=== PATIENT | female | born 1950 | race Caucasian/White ===

== ENCOUNTER 2017-01-29 15:55 | Inpatient (IN) | payer OTHER ==
[~2017-01-29] VITALS: Ht 167.6 cm; Wt 115.9 kg
[~2017-01-29 15:55] MED LIST: ALPR0.25 PO; CARV12.52 PO; CARV6.252 PO; CHOL500016 PO; CYCL10TA2 PO; FLUC100T4 PO; FURO-68 PO; FURO80TA3 PO; GABA-586 PO; GLIM4TAB2 PO; HYDR-2678 PO; HYDR-2868 PO; INSU100V SQ; INSU100V13 SQ; LIRA0.6P2 SQ; LISI-334 PO; LISI40TA PO; OMEP20CA9 PO; OXYC1TAB9 PO; POTA10TA5 PO; TRAM50TA PO
[2017-01-29 18:36] VITALS: BP 159/79
[2017-01-29] MEDS ORDERED: DEXTROSE 50% 25 GM / 50ML DISP.SYRIN. IV PRN (18:45)
[2017-01-29] MEDS ORDERED: LACTULOSE 20 GM/30 ML SOLUTION. PO PRN (18:45)
[2017-01-29] MEDS ORDERED: MAGNESIUM HYDROXIDE 2,400 MG/30 ML ORAL.SUSP. PO PRN (18:45)
[2017-01-29] MEDS ORDERED: BISACODYL 10 MG SUPP.RECT. PR PRN (18:45)
[2017-01-29] MEDS ORDERED: IBUPROFEN 400 MG TABLET. PO PRN (18:45)
[2017-01-29] MEDS ORDERED: ZOLPIDEM 5 MG TABLET. PO PRN (18:45)
[2017-01-29 20:24] LABS: BASO # 0.1 x10^3/uL (0.0-0.2); BASO % 1 % (0-3); EOS % 3 % (0-3); HEMATOCRIT 36.3 % (36.0-47.0); HEMOGLOBIN 11.3 g/dL (12.0-15.5); LYMPH # 1.8 x10^3/uL (1.0-4.8); LYMPH % 22 % (24-48); MEAN CORPUSCULAR HEMOGLOBIN 28 pg (25-35); MEAN CORPUSCULAR HGB CONC 31 g/dL (31-37); MEAN CORPUSCULAR VOLUME 89 fL (79-100); MONO % 5 % (0-9); NEUT % 70 % (31-73); PLATELET COUNT 173 x10^3/uL (140-400); RED BLOOD COUNT 4.08 x10^6/uL (3.50-5.40); RED CELL DISTRIBUTION WIDTH 16.6 % (11.5-14.5)
[2017-01-29] MEDS ORDERED: LIDOCAINE 1% PF 2 ML VIAL. ONE ×2 (20:37→21:00)
[2017-01-29 20:47] LABS: ALBUMIN 2.9 g/dL (3.4-5.0); ALBUMIN/GLOBULIN RATIO 0.8 (1.0-1.7); CALCIUM 8.4 mg/dL (8.5-10.1); CREATININE 2.2 mg/dL (0.6-1.0); GFR 22.2; MAGNESIUM 1.9 mg/dL (1.8-2.4); TOTAL BILIRUBIN 0.5 mg/dL (0.2-1.0); TOTAL PROTEIN 6.5 g/dL (6.4-8.2)
--- NOTE | 2017-01-29 20:55 | PDOC ---
Provider Note Provider Note H and p dictated. JOb # [id number] Sent form PCP bec of leg swelling, chest heaviness, SOA. PCP Dr. Colin Bui Known CHF Claims compliance to lasix 40 PO BID 30 lb weight gain in 1 month PItting edema with vesicles on legs SOA at rest, chest heaviness Wants anesthesia stick Diurese, check labs and cxr, PT/OT. OT lymphedema COnsult cards Hba1c 10 in 2015 NO TSH recently CHeck hba1c and TSH, add SSI Dw RN DHRUV Carpenter MD January 29, 2017 20:55
[2017-01-29] MEDS ORDERED: FUROSEMIDE 40 MG/4 ML VIAL. IVP ONE (21:00)
[2017-01-29] MEDS: DOCUSATE SODIUM 100 MG CAPSULE. PO SCH (21:00)
[2017-01-29] MEDS ORDERED: INSULIN DETEMIR 300 UNITS/3 ML INSULN.PEN. SQ SCH (21:00)
[2017-01-29] MEDS: ENOXAPARIN 40 MG/0.4 ML SYRINGE. SQ SCH (21:49)
[2017-01-29] MEDS: CYCLOBENZAPRINE 10 MG TABLET. PO SCH (21:50)
[2017-01-29] MEDS: traMADol 50 MG TABLET PO SCH (21:50)
[2017-01-29] MEDS: CARVEDILOL 12.5 MG TABLET. PO SCH (21:51)
[2017-01-29] MEDS: hydrALAZINE 25 MG TABLET PO SCH (21:51)
[2017-01-29] MEDS: INSULIN ASPART 300 UNITS/3 ML INSULN.PEN SQ SCH (22:00)
[2017-01-29] MEDS: HYDROcodone/APAP 5/325MG 1 TAB TABLET PO PRN (22:31)
[2017-01-29 23:20] VITALS: BP 155/96
--- NOTE | 2017-01-29 23:35 | EKG ---
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
[2017-01-30 03:05] VITALS: BP 108/59
[2017-01-30 05:05] LABS: BASO # 0.1 x10^3/uL (0.0-0.2); BASO % 1 % (0-3); EOS % 3 % (0-3); HEMATOCRIT 29.9 % (36.0-47.0); HEMOGLOBIN 9.5 g/dL (12.0-15.5); LYMPH # 2.9 x10^3/uL (1.0-4.8); LYMPH % 40 % (24-48); MEAN CORPUSCULAR HEMOGLOBIN 28 pg (25-35); MEAN CORPUSCULAR HGB CONC 32 g/dL (31-37); MEAN CORPUSCULAR VOLUME 89 fL (79-100); MONO % 6 % (0-9); NEUT % 50 % (31-73); PLATELET COUNT 150 x10^3/uL (140-400); RED BLOOD COUNT 3.37 x10^6/uL (3.50-5.40); RED CELL DISTRIBUTION WIDTH 16.3 % (11.5-14.5); WHITE BLOOD COUNT 7.4 x10^3/uL (4.0-11.0)
[2017-01-30 05:12] LABS: INR 1.3 (0.8-1.1); PROTHROMBIN TIME PATIENT 15.1 SEC (11.7-14.0)
[2017-01-30] MEDS: PANTOPRAZOLE 40 MG TABLET.DR. PO SCH ×2 (06:32→11:02)
[2017-01-30 07:00] VITALS: BP 115/55
[2017-01-30] MEDS: INSULIN ASPART 300 UNITS/3 ML INSULN.PEN SQ SCH ×5 (07:30→17:00)
[2017-01-30] MEDS ORDERED: IV DEXTROSE 5% 250 ML IV ONE (07:45)
[2017-01-30] MEDS: CARVEDILOL 12.5 MG TABLET. PO SCH (07:47)
[2017-01-30] MEDS ORDERED: DEXTROSE ORAL GEL 15 GM TUBE. ONE (07:52)
[2017-01-30] MEDS: DEXTROSE ORAL GEL 15 GM TUBE. PO PRN (07:55)
--- NOTE | 2017-01-30 07:59 | RAD ---
Indication difficulty breathing. Shortness of breath. PA and lateral views of the chest were obtained and are compared to a single view examination 06/11/2016. There is mild cardiomegaly. There is suspect mild pulmonary vascular congestion. Gross congestive heart failure is not seen. No consolidated pneumonia is seen. Significant pleural fluid is not present. There is no pneumothorax. Postoperative changes in the upper abdomen are noted. IMPRESSION: Mild cardiomegaly, stable, No focal consolidated pneumonia seen. Suspect mild pulmonary vascular congestion
[2017-01-30] MEDS: GLIMEPIRIDE 2 MG TABLET. PO SCH ×2 (09:00→17:00)
[2017-01-30] MEDS ORDERED: FUROSEMIDE 40 MG TABLET. PO SCH (09:00)
[2017-01-30] MEDS ORDERED: NON FORMULARY ITEM (Liraglutide (Victoza 3-Pak) 1.2 MG) SQ SCH (09:00)
[2017-01-30] MEDS: DOCUSATE SODIUM 100 MG CAPSULE. PO SCH ×2 (09:00→21:00)
[2017-01-30] MEDS: hydrALAZINE 25 MG TABLET PO SCH ×2 (09:00→21:08)
[2017-01-30] MEDS ORDERED: FUROSEMIDE 40 MG/4 ML VIAL. IVP SCH (09:00)
[2017-01-30] MEDS: traMADol 50 MG TABLET PO SCH (09:00)
[2017-01-30] MEDS: CYCLOBENZAPRINE 10 MG TABLET. PO SCH ×2 (09:00→21:08)
--- NOTE | 2017-01-30 09:13 | PDOC2 ---
LESTER MARQUEZ COATINGS INSPECTOR 01/30/17 0913: CARDIAC CONSULT DATE OF CONSULT Date of Consult DATE: 01/30/17 TIME: 08:51 REASON FOR CONSULT Reason for Consult: CHF REFERRING PHYSICIAN Referring Physician: Kendall SOURCE Source: Chart review, Patient HISTORY OF PRESENT ILLNESS HISTORY OF PRESENT ILLNESS This is a pleasant 66 yo female admitted for complains of SOA and increasing leg swelling. Reports that she has been skipping her medications lately, spacing it out to save money. She did not follow up in our office due to limited financial means. 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 Reports that in the last month she has gained about 30 pounds. She has chronic lymphedema but in the last 2 weeks she has noticed that her legs have become more swollen, her abdomen has become more distended and her appetite has decreased in the last week. Also in the last week she has been having occasional palpitations and sometimes feeling of dizziness but more vertigous type dizziness claiming that her surrounding becomes wavy during positional changes. Verbalized symptoms of orthopnea, PND and increasing RYAN. Her mobility is limited but her activity tolerance has decreased as well. Reports that she also started having watery diarrhea 2-3 started 2 weeks ago and thought that this was lactose intolerance but she removed milk in her diet and still had watery diarrhea today but no obvious signs of blood. Denies any nausea or chest pain. She went to her PCP Thursday last week and she was told that her HR has became more irregular but no EKG done. This last 2 days she has been more orthopneic and had PND and with bad insomnia and called her PCPs office Thursday and told her yesterday she needs to come to the hospital. She drove herself and arrange to where she would be a direct admit to save money from not going to ED. She does have lasix at home but again she has been spacing out her medications and BG has been running in the 200s. No recent falls, no PUD, denies any CAD, VTE, CVA in the past. Also she tried to cut down on her salt and calorie intake. PAST MEDICAL HISTORY Past Medical History Cardiovascular: CHF, HTN, chronic lymphedema/venous insufficiency, DLP CENTRAL NERVOUS SYSTEM: Peripheral neuropathy GI: GERD Heme/Onc: Anemia of chronic disease Hepatobiliary: GUILLORY Psych: Anxiety Musculoskeletal: Osteoarthritis, obesity Rheumatologic: No pertinent hx Infectious disease: No pertinent hx ENT: No pertinent hx Renal/: Chronic renal insuff, CKD 4 Endocrine: Diabetes (2) Dermatology: No pertinent hx PAST SURGICAL HISTORY Past Surgical History Appendectomy, Cholecystectomy, , Hysterectomy, Colectomy, Gastric stapling, Abdominal mesh removal with complications of liver failure, cardiac cath 2 years ago, pannus resection FAMILY HISTORY Family History Strong family hx of colon CA, father had CAD SOCIAL HISTORY Smoke: No ALCOHOL: none Drugs: None Lives: with Family CURRENT MEDICATIONS CURRENT MEDICATIONS Current Medications Medications (Trade) Dose Ordered Sig/Aileen Route PRN Reason Start Time Stop Time Status Last Admin Dose Admin Enoxaparin Sodium (Lovenox 40mg Syringe) 40 mg Q12HR SQ 01/29/17 22:00 01/29/17 21:49 Carvedilol (Coreg) 12.5 mg BIDWMEALS PO 01/29/17 19:00 01/29/17 21:51 Cyclobenzaprine HCl (Flexeril) 10 mg BID PO 01/29/17 21:00 01/29/17 21:50 Hydralazine HCl (Apresoline) 25 mg BID PO 01/29/17 21:00 01/29/17 21:51 Acetaminophen/ Hydrocodone Bitart (Lortab 5/325) 1 tab PRN Q6HRS PRN PO PAIN 01/29/17 18:45 01/29/17 22:31 Tramadol HCl (Ultram) 100 mg BID PO 01/29/17 21:00 01/29/17 21:50 Insulin Detemir (Levemir) 40 units QHS SQ 01/29/17 21:00 01/29/17 22:01 Insulin Aspart (NovoLOG) 50 units TIDAC SQ 01/29/17 19:00 01/29/17 22:00 Pantoprazole Sodium (Protonix) 40 mg DAILYAC PO 01/30/17 07:30 01/30/17 06:32 Furosemide (Lasix) 40 mg 1X ONCE IVP 01/29/17 21:00 01/29/17 21:01 DC 01/29/17 21:52 Glucose (Insta-Glucose) 15 gm PRN Q15MIN PRN PO LOW BLOOD SUGAR 01/30/17 08:00 01/30/17 07:55 ALLERGIES ALLERGIES: Coded Allergies: No Known Drug Allergies (Unverified , 05/01/16) ROS Review of System 14 point ROS evaluated with pertinent positives noted per HPI PHYSICAL EXAM General: Alert, Oriented X3, Cooperative, No acute distress HEENT: Atraumatic, Mucous membr. moist/pink Lungs: Other (basilar crackles) Heart: Normal S1, Normal S2, Other (AFIB; 2/6 systolic murmur to LLS border) Abdomen: Soft, Other (large pannus) Extremities: No cyanosis, Other (3-4+ bilateral LE pitting edema) Skin: No breakdown, Other (bilateral LE lipodermatosclerosis) Neuro: Normal speech, Sensation intact Psych/Mental Status: Mental status NL, Mood NL MUSCULOSKELETAL: Osteoarthritic changes both hands VITALS VITALS Vital Signs Date Time Temp Pulse Resp B/P (MAP) Pulse Ox O2 Delivery O2 Flow Rate FiO2 01/30/17 07:47 46 108/59 01/30/17 07:00 97.9 18 97 Room Air 97.9 LABS Lab: Laboratory Tests Test 01/29/17 20:00 01/29/17 20:15 01/29/17 20:50 01/30/17 04:30 White Blood Count 8.0 x10^3/uL (4.0-11.0) 7.4 x10^3/uL (4.0-11.0) Red Blood Count 4.08 x10^6/uL (3.50-5.40) 3.37 x10^6/uL (3.50-5.40) Hemoglobin 11.3 g/dL (12.0-15.5) 9.5 g/dL (12.0-15.5) Hematocrit 36.3 % (36.0-47.0) 29.9 % (36.0-47.0) Mean Corpuscular Volume 89 fL (79-100) 89 fL (79-100) Mean Corpuscular Hemoglobin 28 pg (25-35) 28 pg (25-35) Mean Corpuscular Hemoglobin Concent 31 g/dL (31-37) 32 g/dL (31-37) Red Cell Distribution Width 16.6 % (11.5-14.5) 16.3 % (11.5-14.5) Platelet Count 173 x10^3/uL (140-400) 150 x10^3/uL (140-400) Neutrophils (%) (Auto) 70 % (31-73) 50 % (31-73) Lymphocytes (%) (Auto) 22 % (24-48) 40 % (24-48) Monocytes (%) (Auto) 5 % (0-9) 6 % (0-9) Eosinophils (%) (Auto) 3 % (0-3) 3 % (0-3) Basophils (%) (Auto) 1 % (0-3) 1 % (0-3) Neutrophils # (Auto) 5.6 x10^3uL (1.8-7.7) 3.7 x10^3uL (1.8-7.7) Lymphocytes # (Auto) 1.8 x10^3/uL (1.0-4.8) 2.9 x10^3/uL (1.0-4.8) Monocytes # (Auto) 0.4 x10^3/uL (0.0-1.1) 0.4 x10^3/uL (0.0-1.1) Eosinophils # (Auto) 0.2 x10^3/uL (0.0-0.7) 0.2 x10^3/uL (0.0-0.7) Basophils # (Auto) 0.1 x10^3/uL (0.0-0.2) 0.1 x10^3/uL (0.0-0.2) Sodium Level 143 mmol/L (136-145) Potassium Level 4.0 mmol/L (3.5-5.1) Chloride Level 109 mmol/L (98-107) Carbon Dioxide Level 24 mmol/L (21-32) Anion Gap 10 (6-14) Blood Urea Nitrogen 25 mg/dL (7-20) Creatinine 2.2 mg/dL (0.6-1.0) Estimated GFR (Cockcroft-Gault) 22.2 BUN/Creatinine Ratio 11 (6-20) Glucose Level 273 mg/dL (70-99) Calcium Level 8.4 mg/dL (8.5-10.1) Magnesium Level 1.9 mg/dL (1.8-2.4) Total Bilirubin 0.5 mg/dL (0.2-1.0) Aspartate Amino Transf (AST/SGOT) 13 U/L (15-37) Alanine Aminotransferase (ALT/SGPT) 15 U/L (14-59) Alkaline Phosphatase 247 U/L (46-116) Total Protein 6.5 g/dL (6.4-8.2) Albumin 2.9 g/dL (3.4-5.0) Albumin/Globulin Ratio 0.8 (1.0-1.7) Troponin I Quantitative < 0.017 ng/mL (0.000-0.055) < 0.017 ng/mL (0.000-0.055) JD-Fan-Y-Type Natriuretic Peptide 3583 pg/mL (0-124) Thyroid Stimulating Hormone (TSH) 0.766 uIU/mL (0.358-3.74) Glucose (Fingerstick) 306 mg/dL (70-99) Prothrombin Time 15.1 SEC (11.7-14.0) Prothromb Time International Ratio 1.3 (0.8-1.1) Test 01/30/17 07:03 01/30/17 07:36 Glucose (Fingerstick) 50 mg/dL (70-99) 53 mg/dL (70-99) ECHOCARDIOGRAM ECHOCARDIOGRAM <Conclusion> The left ventricular systolic function is normal and the ejection fraction is within normal range. The Ejection Fraction is 60-65%. There is normal LV segmental wall motion. Tissue Doppler imaging reveals moderate left ventricular diastolic dysfunction. Doppler and Color Flow revealed mild tricuspid regurgitation. The PA pressure was estimated at 49 mmHg. DATE: 06/12/16 1037 ASSESSMENT/PLAN ASSESSMENT/PLAN 1. Acute on chronic diastolic CHF: Appears compensated. This is multifactorial with contributing factors noted below. 2. New onset AFIB: Likely paroxysmal Noted irregular initially a week ago at PCPs office. Rate controlled, 3. Suspecting possible tachy-josi HR episodes in the 40s (could be BB induced) via tele with episodes of palpitations at home. 4. Chronic lymphedema 5. CKD4 6. HTN: initially labile 7. DM2/DLP: hypoglycemic this AM in the 50s. Home BG avg 200s. per PCP 8. Anemia of chronic disease: Hgb 9.5, no hx of GI bleed. 9. Hx of noncompliance: has been spacing out home meds, mainly due to limited financial means 10. Diarrhea: watery 2 weeks with last 2 episode today. possible gastroenteritis vs CHF contributing. Per PCP 11. Morbid obesity: BMI 45 12. MATTHEW: has not used any device for a while since she could not afford this. Recommendations 1. TTE today 2. Significant discussion regarding treatment plan and pathophysiology for AFIB and importance of compliance. 3. I would like to start her on Xa inhibitors but based on her verbalized expenses, she would not be able to afford it. Coumadin for stroke prevention is also an option but compliance would be an issue in relation to INR checks. Cardioversion is an option but assurance of anticoagulation would be warranted and office f/u as well Will revisit these factors again with her once SW/CM evaluates her. 4. Also would recommend outpt event monitor but would not be able to afford. 5. Strict I & O. Will decrease lasix to daily given her continued diarrheal episode. 6. Will DC home dose 12.5 mg coreg and will possibly start on low dose metoprolol starting tomorrow if no further bradycardia. 7. [id number] is 5. ECASA 81 mg po daily for stroke prevention for now as anticoagulation compliance could not be assured 8. Continue secondary prevention 9. BMP, Mg, TSH, lipid panel, A1C Problems: LEON GARDNER MD 01/30/174: CARDIAC CONSULT ALLERGIES ALLERGIES: Coded Allergies: No Known Drug Allergies (Unverified , 05/01/16) ASSESSMENT/PLAN ASSESSMENT/PLAN Pt. seen and examined. 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 66 y.o woman well known to me. She has had progressive dyspnea/LE edema. On exam she has 3+ pitting edema to the lower extremities. Labs notable for anemia and CKD. Echo - prelim with normal LV function and moderate pulm HTN. Plan for aggressive diuresis. Continue lisinopril. No acute indication for rate control given her rates are less than 80 at rest. May consider DC home on toprol after she is more active. WILL NEED $4 meds only. Would prefer anticoagulation for afib given risk factors. Will plan for Eliquis 30 days of samples and then plan to either transition to coumadin or assistance program on outpt basis. Will follow along. Thanks for consult. Problems: LESTER MARQUEZ APRN January 30, 2017 09:13 LEON GARDNER MD January 30, 2017 22:24
[2017-01-30 09:27] LABS: CALCIUM 7.9 mg/dL (8.5-10.1); CREATININE 2.3 mg/dL (0.6-1.0); GFR 21.1
--- NOTE | 2017-01-30 09:31 | ACF ---
Admission Forms Criteria HEART FAILURE Clinical Indications for Admission to Inpatient Care (Place 'X' for any and all applicable criteria): Admission is indicated by ANY ONE of the following(1)(2)(3)(4): [ ]I. Severe electrolyte abnormalities requiring inpatient care(9) [ ]II. Hemodynamic instability [ ]III. Anasarca [ ]IV. Acute cardiac ischemia causing or associated with failure (Also use Angina or Myocardial Infarction as appropriate) [ ]V. Cardiac arrhythmias of immediate concern [ ]. Precipitating cause for acute decompensation (eg, pneumonia, pulmonary embolism) requires inpatient care [ ]VII. Pulmonary edema that is very severe (eg, mechanical ventilation needed, imminent or likely, need for 100% oxygen to keep oxygen saturation above 90%) [ ]VIII. Inpatient admission required rather than observation care (Also use Heart Failure: Observation Care as appropriate) because of ANY ONE of the following: [ ]a) Pulmonary edema that is severe or worsening as indicated by ALL of the following: [ ]i) New need for oxygen therapy to keep oxygen saturation above 90% (or increased FiO2 need from baseline) [ ]ii) Has not improved sufficiently with emergency department or observation care IV diuretics or other heart failure treatments[C] [ ]b) Cognitive impairment that is severe or persistent [ ]c) Increased creatinine (new on laboratory test) with reduction of more than 50% in estimated glomerular filtration rate from baseline. [ ]d) Acute renal insufficiency (progressively (ongoing) rising creatinine (known from past laboratory test) with reduction of more than 25% in estimated glomerular filtration rate from baseline) [ ]e) Acute peripheral ischemia (eg, pulseless, cool, mottled, or cyanotic extremity) [ ]f) Acute renal failure [ ]g) Supplemental O2 or respiratory treatment for >24 hr that are performable only in acute inpatient setting [ ]h) Pulmonary artery catheter monitoring [ ]i) Other condition, treatment or monitoring requiring inpatient admission [ ]IX. Contraindications and/or Inappropriate clinical situations for Observational Care in patients with Heart Failure, when ANY ONE of the following is required: [ ]a) Patient with High risk of cardiac embolism (e.g, patients with previous cardiac embolism, LVEF < 40%, age >75 and patients with prosthetic valve) 18 [ ]b) Patient with Moderate risk including DM patient, CAD and patient aged 65-75 [ ]c) Patient with any change in cardiac biomarker especially troponin should be managed as high risk in an inpatient setting 19 [ ]d) Physician judgement irrespective of ECG and other diagnostic findings 20 [ ]e) Patients with hyponatremia have high risk for mortality and require more extensive care and length of stay 21 [ ]f) Need for large volume diuresis 21 [ ]g) Presence of renal insufficiency or hypotension limiting speed of diuresis 21 [ ]h) Acute cardiac Ischemia in the elderly 21 [ ]i) Patients with a 30 day risk of mortality based on a multidimensional prognostic index (MPI) [J,]21 [X]X. General contraindications and/or Inappropriate clinical situations for Observational Care in patients with Heart Failure, when ANY ONE of the following is required: [X]a) Prediction of prolongation of LOS based on ANY ONE of the following may be considered as a contraindication for observational care 2, 3, 4, 5, 6, 7, 8 , 9, 10, 11 [X]i) Age > 65 yrs. [ ]ii) Patient arriving by ambulance [ ]iii) Patient with high acuity [ ]iv) Patient requiring vital sign monitoring [ ]v) Patient on IV medication [ ]b) Systolic blood pressures 180mmHg 3,12 [ ]c) Patient with altered mental status including delirium and other alteration of consciousness, (3) [ ]d) Patient whose discharge disposition will be to a chcf home or rehabilitation home should not be managed in Emergency Department Observation Unit. CMS rule requires 3 days hospital stay before such placement.3,13 [ ]e) Patient with failure to thrive due to broad array of etiologies 3,16,17 [ ]f) Inability to ambulate 3,14 Extended stay beyond goal length of stay may be needed for(1)(3)(21)(25): [ ]a) Cardiac ischemia, confirmed or suspected as precipitant [ ]b) Cardiogenic shock or refractory pulmonary edema [ ]c) Acute kidney injury or renal failure [ ]d) Respiratory failure (eg, need for noninvasive or invasive mechanical ventilation) (23) [ ]e) Concomitant pneumonia or significant electrolyte abnormality (eg, severe hyponatremia) [ ]f) Newly diagnosed (new onset) atrial fibrillation [ ]g) Stage IV chronic kidney disease (estimated glomerular filtration rate of less than 30 mL/min/1.73m2 (0.50 mL/sec/1.73m2), and not previously on chronic dialysis The original [facility] content created by [facility] has been revised. The portions of the content which have been revised are identified through the use of italic text or in bold, and [facility] has neither reviewed nor approved the modified material. All other unmodified content is copyright [facility]. Please see references footnoted in the original [facility] edition 2016 Admission Criteria Met?: Yes GEE SOUZA January 30, 2017 09:31
--- NOTE | 2017-01-30 09:34 | EKG ---
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
[2017-01-30 09:35] LABS: CHOLESTEROL/HDL RATIO 1.9; MAGNESIUM 1.8 mg/dL (1.8-2.4)
--- NOTE | 2017-01-30 10:30 | HP ---
ADMIT DATE: 01/29/2017 CHIEF COMPLAINT: Sent by PCP because of increase in lower extremity swelling. HISTORY OF PRESENT ILLNESS: The patient is a 66-year-old female known to have CHF, I do believe combined systolic-diastolic, chronic, was known to our Cardiology Group here for an admission in 05/2016 and maybe a couple of months ago for similar issues as per the patient account. Again, [facility] is down and I do not have access to old records. The patient is on Lasix 40 mg p.o. b.i.d., claims compliance, but despite that, has gained 30 pounds in the last month. There is +3 to 4 pitting edema on bilateral lower extremities, but actually vesicles appreciable filled with fluid. She does complain of shortness of breath at rest and on exertion. She is basically wheelchair-bound mostly, but lives at home with her . Denies salt intake. Does have diabetes, obesity, and CKD. PCP is Dr. Bui. No labs present, but clinical exam is remarkable for lower extremity edema, decreased breath sounds, no wheezes appreciated, and maybe some moderate crackles on auscultation. The patient is admitted for diuresis with Cardiology on board. She did complain of some chest heaviness and shortness of breath, where the chest heaviness, she could not further characterize. She looks comfortable right now, although she is not moving and is lying in bed with significant edema appreciable. PAST MEDICAL HISTORY: Diabetes, obesity, CHF, CKD, and anemia of chronic disease. PAST SURGICAL HISTORY: Reviewed, nothing significant. ALLERGIES: No known drug allergies. SOCIAL HISTORY: No smoking, no alcohol, and no street drugs. Lives at home with , ambulates basically with a wheelchair. FAMILY HISTORY: Reviewed and noncontributory. MEDICATION LIST: Reviewed. She is on maybe 15 different medications and claims compliance. REVIEW OF SYSTEMS: Positive for shortness of breath and chest heaviness. No abdominal pain, nausea, vomiting, or diarrhea. No psychiatric or mental issues or neurologic issues: Skin: She has some vesicles on bilateral lower extremities. There is tight swelling and pitting edema +3 to +4 from her foot up to her thighs. PHYSICAL EXAMINATION: GENERAL: Awake, alert, and oriented x 3, not in acute respiratory distress with stable vital signs reviewed. HEENT: No JVD appreciable, but short neck, Mallampati 3-4. RESPIRATORY: Decreased breath sounds secondary to poor inspiratory effort, increased AP diameter, but otherwise no wheezing appreciated, maybe minute-to- moderate crackles at the lung bases. CARDIOVASCULAR: Normal rate and rhythm. No murmurs, rubs, or gallops. No heaves, thrills, or lift. ABDOMEN: Obese, nontender. Normoactive bowel sounds. GENITALIA: Appropriate for age. PSYCHIATRIC AND MENTAL EXAM: Within normal limits. NEUROLOGIC: No focal deficits. SKIN: She has vesicles on bilateral lower extremities. Bilateral lower extremities have+3-4 pitting edema. LABORATORY DATA: Not available for now. ASSESSMENT AND PLAN: 1. Acute-on chronic congestive heart failure, likely systolic versus diastolic or combined. We have to see the old records what type of congestive heart failure she has. Again, [facility] is down. 2. Old lymphedema. 3. Obesity. 4. Diabetes type 2. 5. Unknown A1c. 6. Chronic kidney disease. 7. Anemia of chronic disease. 8. Limited mobility, wheelchair-bound. 9. Chest heaviness. PLAN OF CARE: Admit to CVC for two midnights. Cardiology consult. Troponins. I would diurese IV with 40 IV b.i.d. given the significant edema. PT and OT - OT for lymphedema. Sliding scale insulin. Continue all home meds, except the furosemide to 40 mg orally. I did have a heavy discussion. She wanted a PICC, but I told her that we could try for peripherals first as PICC lines are now without complications. She was basically concerned of the pain, hence we will do an anesthesia stick and she was agreeable to perform stick as long as pain will be controlled. Check chest x-ray, BNP, and basic labs. If TSH has not been recently done, we can also do that. Discussed with RN and the patient. DHRUV LACEY MD DR: /nts JOB#: [id number] / [id number]
[2017-01-30 11:00] VITALS: BP 118/88
[2017-01-30] MEDS: POTASSIUM CHLORIDE 10 MEQ TABLET.ER. PO SCH (11:01)
[2017-01-30] MEDS: FLUCONAZOLE 100 MG TABLET. PO SCH (11:02)
[2017-01-30] MEDS: CHOLECALCIFEROL (VITAMIN D3) 5,000 UNIT CAPSULE PO SCH (11:02)
[2017-01-30] MEDS: LISINOPRIL 40 MG TABLET. PO SCH (11:03)
[2017-01-30] MEDS: ENOXAPARIN 40 MG/0.4 ML SYRINGE. SQ SCH ×2 (11:06→21:09)
--- NOTE | 2017-01-30 11:21 | PDOC ---
PROGRESS NOTES Chief Complaint Chief Complaint CHF Severe Edema Diabetes Obesity CKD Anemia of chronic disease History of Present Illness History of Present Illness Pt up ambulating with PT Legs are impressively swollen Vitals Vitals Vital Signs Date Time Temp Pulse Resp B/P (MAP) Pulse Ox O2 Delivery O2 Flow Rate FiO2 01/30/17 11:03 46 108/59 01/30/17 07:00 97.9 18 97 Room Air 97.9 Physical Exam General: Alert, Oriented X3 Heart: Regular rate, Normal S1 Lungs: Clear Abdomen: Normal bowel sounds, Soft Extremities: Other (Massive edema) Labs LABS Laboratory Tests Test 01/29/17 20:00 01/29/17 20:15 01/29/17 20:50 01/30/17 04:30 White Blood Count 8.0 x10^3/uL (4.0-11.0) 7.4 x10^3/uL (4.0-11.0) Red Blood Count 4.08 x10^6/uL (3.50-5.40) 3.37 x10^6/uL (3.50-5.40) Hemoglobin 11.3 g/dL (12.0-15.5) 9.5 g/dL (12.0-15.5) Hematocrit 36.3 % (36.0-47.0) 29.9 % (36.0-47.0) Mean Corpuscular Volume 89 fL (79-100) 89 fL (79-100) Mean Corpuscular Hemoglobin 28 pg (25-35) 28 pg (25-35) Mean Corpuscular Hemoglobin Concent 31 g/dL (31-37) 32 g/dL (31-37) Red Cell Distribution Width 16.6 % (11.5-14.5) 16.3 % (11.5-14.5) Platelet Count 173 x10^3/uL (140-400) 150 x10^3/uL (140-400) Neutrophils (%) (Auto) 70 % (31-73) 50 % (31-73) Lymphocytes (%) (Auto) 22 % (24-48) 40 % (24-48) Monocytes (%) (Auto) 5 % (0-9) 6 % (0-9) Eosinophils (%) (Auto) 3 % (0-3) 3 % (0-3) Basophils (%) (Auto) 1 % (0-3) 1 % (0-3) Neutrophils # (Auto) 5.6 x10^3uL (1.8-7.7) 3.7 x10^3uL (1.8-7.7) Lymphocytes # (Auto) 1.8 x10^3/uL (1.0-4.8) 2.9 x10^3/uL (1.0-4.8) Monocytes # (Auto) 0.4 x10^3/uL (0.0-1.1) 0.4 x10^3/uL (0.0-1.1) Eosinophils # (Auto) 0.2 x10^3/uL (0.0-0.7) 0.2 x10^3/uL (0.0-0.7) Basophils # (Auto) 0.1 x10^3/uL (0.0-0.2) 0.1 x10^3/uL (0.0-0.2) Sodium Level 143 mmol/L (136-145) 146 mmol/L (136-145) Potassium Level 4.0 mmol/L (3.5-5.1) 4.0 mmol/L (3.5-5.1) Chloride Level 109 mmol/L (98-107) 113 mmol/L (98-107) Carbon Dioxide Level 24 mmol/L (21-32) 25 mmol/L (21-32) Anion Gap 10 (6-14) 8 (6-14) Blood Urea Nitrogen 25 mg/dL (7-20) 26 mg/dL (7-20) Creatinine 2.2 mg/dL (0.6-1.0) 2.3 mg/dL (0.6-1.0) Estimated GFR (Cockcroft-Gault) 22.2 21.1 BUN/Creatinine Ratio 11 (6-20) Glucose Level 273 mg/dL (70-99) 75 mg/dL (70-99) Calcium Level 8.4 mg/dL (8.5-10.1) 7.9 mg/dL (8.5-10.1) Magnesium Level 1.9 mg/dL (1.8-2.4) 1.8 mg/dL (1.8-2.4) Total Bilirubin 0.5 mg/dL (0.2-1.0) Aspartate Amino Transf (AST/SGOT) 13 U/L (15-37) Alanine Aminotransferase (ALT/SGPT) 15 U/L (14-59) Alkaline Phosphatase 247 U/L (46-116) Total Protein 6.5 g/dL (6.4-8.2) Albumin 2.9 g/dL (3.4-5.0) Albumin/Globulin Ratio 0.8 (1.0-1.7) Troponin I Quantitative < 0.017 ng/mL (0.000-0.055) < 0.017 ng/mL (0.000-0.055) NI-Qxw-W-Type Natriuretic Peptide 3583 pg/mL (0-124) Thyroid Stimulating Hormone (TSH) 0.766 uIU/mL (0.358-3.74) Glucose (Fingerstick) 306 mg/dL (70-99) Prothrombin Time 15.1 SEC (11.7-14.0) Prothromb Time International Ratio 1.3 (0.8-1.1) Triglycerides Level 29 mg/dL (0-150) Cholesterol Level 80 mg/dL (0-200) LDL Cholesterol, Calculated 32 mg/dL (0-100) VLDL Cholesterol, Calculated 6 mg/dL (0-40) Non-HDL Cholesterol Calculated 38 mg/dL (0-129) HDL Cholesterol 42 mg/dL (40-60) Cholesterol/HDL Ratio 1.9 Test 01/30/17 07:03 01/30/17 07:36 Glucose (Fingerstick) 50 mg/dL (70-99) 53 mg/dL (70-99) Review of Systems Review of Systems co soa co weakness Assessment and Plan Assessmemt and Plan CHF Severe Edema Diabetes Obesity CKD Anemia of chronic disease Plan IV lasix Decrease Beta blockade due to bradycardia PTOT Home meds Recheck labs Problems: Comment Review of Relevant I have reviewed the following items kai (where applicable) has been applied. Labs Laboratory Tests Test 01/29/17 20:00 01/29/17 20:15 01/29/17 20:50 01/30/17 04:30 White Blood Count 8.0 x10^3/uL (4.0-11.0) 7.4 x10^3/uL (4.0-11.0) Red Blood Count 4.08 x10^6/uL (3.50-5.40) 3.37 x10^6/uL (3.50-5.40) Hemoglobin 11.3 g/dL (12.0-15.5) 9.5 g/dL (12.0-15.5) Hematocrit 36.3 % (36.0-47.0) 29.9 % (36.0-47.0) Mean Corpuscular Volume 89 fL (79-100) 89 fL (79-100) Mean Corpuscular Hemoglobin 28 pg (25-35) 28 pg (25-35) Mean Corpuscular Hemoglobin Concent 31 g/dL (31-37) 32 g/dL (31-37) Red Cell Distribution Width 16.6 % (11.5-14.5) 16.3 % (11.5-14.5) Platelet Count 173 x10^3/uL (140-400) 150 x10^3/uL (140-400) Neutrophils (%) (Auto) 70 % (31-73) 50 % (31-73) Lymphocytes (%) (Auto) 22 % (24-48) 40 % (24-48) Monocytes (%) (Auto) 5 % (0-9) 6 % (0-9) Eosinophils (%) (Auto) 3 % (0-3) 3 % (0-3) Basophils (%) (Auto) 1 % (0-3) 1 % (0-3) Neutrophils # (Auto) 5.6 x10^3uL (1.8-7.7) 3.7 x10^3uL (1.8-7.7) Lymphocytes # (Auto) 1.8 x10^3/uL (1.0-4.8) 2.9 x10^3/uL (1.0-4.8) Monocytes # (Auto) 0.4 x10^3/uL (0.0-1.1) 0.4 x10^3/uL (0.0-1.1) Eosinophils # (Auto) 0.2 x10^3/uL (0.0-0.7) 0.2 x10^3/uL (0.0-0.7) Basophils # (Auto) 0.1 x10^3/uL (0.0-0.2) 0.1 x10^3/uL (0.0-0.2) Sodium Level 143 mmol/L (136-145) 146 mmol/L (136-145) Potassium Level 4.0 mmol/L (3.5-5.1) 4.0 mmol/L (3.5-5.1) Chloride Level 109 mmol/L (98-107) 113 mmol/L (98-107) Carbon Dioxide Level 24 mmol/L (21-32) 25 mmol/L (21-32) Anion Gap 10 (6-14) 8 (6-14) Blood Urea Nitrogen 25 mg/dL (7-20) 26 mg/dL (7-20) Creatinine 2.2 mg/dL (0.6-1.0) 2.3 mg/dL (0.6-1.0) Estimated GFR (Cockcroft-Gault) 22.2 21.1 BUN/Creatinine Ratio 11 (6-20) Glucose Level 273 mg/dL (70-99) 75 mg/dL (70-99) Calcium Level 8.4 mg/dL (8.5-10.1) 7.9 mg/dL (8.5-10.1) Magnesium Level 1.9 mg/dL (1.8-2.4) 1.8 mg/dL (1.8-2.4) Total Bilirubin 0.5 mg/dL (0.2-1.0) Aspartate Amino Transf (AST/SGOT) 13 U/L (15-37) Alanine Aminotransferase (ALT/SGPT) 15 U/L (14-59) Alkaline Phosphatase 247 U/L (46-116) Total Protein 6.5 g/dL (6.4-8.2) Albumin 2.9 g/dL (3.4-5.0) Albumin/Globulin Ratio 0.8 (1.0-1.7) Troponin I Quantitative < 0.017 ng/mL (0.000-0.055) < 0.017 ng/mL (0.000-0.055) YA-Zsi-E-Type Natriuretic Peptide 3583 pg/mL (0-124) Thyroid Stimulating Hormone (TSH) 0.766 uIU/mL (0.358-3.74) Glucose (Fingerstick) 306 mg/dL (70-99) Prothrombin Time 15.1 SEC (11.7-14.0) Prothromb Time International Ratio 1.3 (0.8-1.1) Triglycerides Level 29 mg/dL (0-150) Cholesterol Level 80 mg/dL (0-200) LDL Cholesterol, Calculated 32 mg/dL (0-100) VLDL Cholesterol, Calculated 6 mg/dL (0-40) Non-HDL Cholesterol Calculated 38 mg/dL (0-129) HDL Cholesterol 42 mg/dL (40-60) Cholesterol/HDL Ratio 1.9 Test 01/30/17 07:03 01/30/17 07:36 Glucose (Fingerstick) 50 mg/dL (70-99) 53 mg/dL (70-99) Laboratory Tests Test 01/29/17 20:00 01/29/17 20:15 01/29/17 20:50 01/30/17 04:30 White Blood Count 8.0 x10^3/uL (4.0-11.0) 7.4 x10^3/uL (4.0-11.0) Red Blood Count 4.08 x10^6/uL (3.50-5.40) 3.37 x10^6/uL (3.50-5.40) Hemoglobin 11.3 g/dL (12.0-15.5) 9.5 g/dL (12.0-15.5) Hematocrit 36.3 % (36.0-47.0) 29.9 % (36.0-47.0) Mean Corpuscular Volume 89 fL (79-100) 89 fL (79-100) Mean Corpuscular Hemoglobin 28 pg (25-35) 28 pg (25-35) Mean Corpuscular Hemoglobin Concent 31 g/dL (31-37) 32 g/dL (31-37) Red Cell Distribution Width 16.6 % (11.5-14.5) 16.3 % (11.5-14.5) Platelet Count 173 x10^3/uL (140-400) 150 x10^3/uL (140-400) Neutrophils (%) (Auto) 70 % (31-73) 50 % (31-73) Lymphocytes (%) (Auto) 22 % (24-48) 40 % (24-48) Monocytes (%) (Auto) 5 % (0-9) 6 % (0-9) Eosinophils (%) (Auto) 3 % (0-3) 3 % (0-3) Basophils (%) (Auto) 1 % (0-3) 1 % (0-3) Neutrophils # (Auto) 5.6 x10^3uL (1.8-7.7) 3.7 x10^3uL (1.8-7.7) Lymphocytes # (Auto) 1.8 x10^3/uL (1.0-4.8) 2.9 x10^3/uL (1.0-4.8) Monocytes # (Auto) 0.4 x10^3/uL (0.0-1.1) 0.4 x10^3/uL (0.0-1.1) Eosinophils # (Auto) 0.2 x10^3/uL (0.0-0.7) 0.2 x10^3/uL (0.0-0.7) Basophils # (Auto) 0.1 x10^3/uL (0.0-0.2) 0.1 x10^3/uL (0.0-0.2) Sodium Level 143 mmol/L (136-145) 146 mmol/L (136-145) Potassium Level 4.0 mmol/L (3.5-5.1) 4.0 mmol/L (3.5-5.1) Chloride Level 109 mmol/L (98-107) 113 mmol/L (98-107) Carbon Dioxide Level 24 mmol/L (21-32) 25 mmol/L (21-32) Anion Gap 10 (6-14) 8 (6-14) Blood Urea Nitrogen 25 mg/dL (7-20) 26 mg/dL (7-20) Creatinine 2.2 mg/dL (0.6-1.0) 2.3 mg/dL (0.6-1.0) Estimated GFR (Cockcroft-Gault) 22.2 21.1 BUN/Creatinine Ratio 11 (6-20) Glucose Level 273 mg/dL (70-99) 75 mg/dL (70-99) Calcium Level 8.4 mg/dL (8.5-10.1) 7.9 mg/dL (8.5-10.1) Magnesium Level 1.9 mg/dL (1.8-2.4) 1.8 mg/dL (1.8-2.4) Total Bilirubin 0.5 mg/dL (0.2-1.0) Aspartate Amino Transf (AST/SGOT) 13 U/L (15-37) Alanine Aminotransferase (ALT/SGPT) 15 U/L (14-59) Alkaline Phosphatase 247 U/L (46-116) Total Protein 6.5 g/dL (6.4-8.2) Albumin 2.9 g/dL (3.4-5.0) Albumin/Globulin Ratio 0.8 (1.0-1.7) Troponin I Quantitative < 0.017 ng/mL (0.000-0.055) < 0.017 ng/mL (0.000-0.055) PB-Ueu-S-Type Natriuretic Peptide 3583 pg/mL (0-124) Thyroid Stimulating Hormone (TSH) 0.766 uIU/mL (0.358-3.74) Glucose (Fingerstick) 306 mg/dL (70-99) Prothrombin Time 15.1 SEC (11.7-14.0) Prothromb Time International Ratio 1.3 (0.8-1.1) Triglycerides Level 29 mg/dL (0-150) Cholesterol Level 80 mg/dL (0-200) LDL Cholesterol, Calculated 32 mg/dL (0-100) VLDL Cholesterol, Calculated 6 mg/dL (0-40) Non-HDL Cholesterol Calculated 38 mg/dL (0-129) HDL Cholesterol 42 mg/dL (40-60) Cholesterol/HDL Ratio 1.9 Test 01/30/17 07:03 01/30/17 07:36 Glucose (Fingerstick) 50 mg/dL (70-99) 53 mg/dL (70-99) Medications Current Medications Zolpidem Tartrate (Ambien) 5 mg PRN QHS PRN PO INSOMNIA, MAY REPEAT IN 1HR; Start 01/29/17 at 18:45 Oxycodone HCl (Roxicodone) 5 mg PRN Q3HRS PRN PO BREAKTHROUGH PAIN; Start 01/29 at 18:45 Acetaminophen (Tylenol) 650 mg PRN Q6HRS PRN PO Headaches, Temp > 101.5F; Start 01/29/17 at 18:45 Ibuprofen (Motrin) 400 mg PRN Q6HRS PRN PO MILD PAIN; Start 01/29/17 at 18:45 Docusate Sodium (Colace) 100 mg BID PO ; Start 01/29/17 at 21:00 Magnesium Hydroxide (Milk Of Magnesia) 2,400 mg PRN Q12HR PRN PO CONSTIPATION; Start 01/29/17 at 18:45 Lactulose 20 gm PRN Q12HR PRN PO CONSTIPATION; Start 01/29/17 at 18:45 Bisacodyl (Dulcolax Supp) 10 mg PRN DAILY PRN MD CONSTIPATION; Start 01/29/17 at 18:45 Enoxaparin Sodium (Lovenox 40mg Syringe) 40 mg Q12HR SQ Last administered on 11:06; Start 01/29/17 at 22:00 Alprazolam (Xanax) 0.25 mg QHS PRN PO ANXIETY / AGITATION; Start 01/29/17 at 18 :45 Carvedilol (Coreg) 12.5 mg BIDWMEALS PO Last administered on 01/29/17 21:51; Start 01/29/17 at 19:00 Cyclobenzaprine HCl (Flexeril) 10 mg BID PO Last administered on 01/29/17 21: 50; Start 01/29/17 at 21:00 Fluconazole (Diflucan) 100 mg DAILY PO Last administered on 01/30/17 11:02; Start 01/30/17 at 09:00 Furosemide (Lasix) 40 mg BID92 PO ; Start 01/30/17 at 09:00; Stop 01/30/17 at 09 :00; Status DC Hydralazine HCl (Apresoline) 25 mg BID PO Last administered on 01/29/17 21:51 ; Start 01/29/17 at 21:00 Acetaminophen/ Hydrocodone Bitart (Lortab 5/325) 1 tab PRN Q6HRS PRN PO PAIN Last administered on 01/29/17 22:31; Start 01/29/17 at 18:45 Lisinopril (Prinivil) 40 mg DAILY PO Last administered on 01/30/17 11:03; Start 01/30/17 at 09:00 Oxycodone/ Acetaminophen (Percocet 10/325) 1 tab PRN Q6HRS PRN PO PAIN; Start 01/29/17 at 18:45 Tramadol HCl (Ultram) 100 mg BID PO Last administered on 01/29/17 21:50; Start 01/29/17 at 21:00 Vitamin D (Vitamin D3) 5,000 unit DAILY PO Last administered on 01/30/17 11:02 ; Start 01/30/17 at 09:00 Gabapentin (Neurontin) 300 mg PRN DAILY PRN PO NERVE PAIN; Start 01/29/17 at 21 :00 Glimepiride (Amaryl) 4 mg BIDWMEALS PO ; Start 01/30/17 at 09:00 Insulin Detemir (Levemir) 40 units QHS SQ Last administered on 01/29/17 22:01 ; Start 01/29/17 at 21:00 Insulin Aspart (NovoLOG) 50 units TIDAC SQ Last administered on 01/29/17 22:00 ; Start 01/29/17 at 19:00 Non-Formulary Medication 1.2 mg DAILY SQ ; Start 01/30/17 at 09:00; Stop at 09:00; Status DC Pantoprazole Sodium (Protonix) 40 mg DAILYAC PO Last administered on 01/30/17 11:02; Start 01/30/17 at 07:30 Potassium Chloride (Klor-Con) 10 meq DAILYWBKFT PO Last administered on 11:01; Start 01/30/17 at 08:00 Insulin Aspart (NovoLOG) 0-9 UNITS TIDWMEALS SQ ; Start 01/30/17 at 08:00 Dextrose (Dextrose 50%-Water Syringe) 12.5 gm PRN Q15MIN PRN IV SEE COMMENTS; Start 01/29/17 at 18:45 Furosemide (Lasix) 40 mg 1X ONCE IVP Last administered on 01/29/17 21:52; Start 01/29/17 at 21:00; Stop 01/29/17 at 21:01; Status DC Furosemide (Lasix) 40 mg BID92 IVP Last administered on 01/30/17 11:01; Start 01/30/17 at 09:00 Lidocaine HCl (Xylocaine-Mpf 1% Vial) 2 ml STK-MED ONCE .ROUTE ; Start 01/29/17 at 20:37; Stop 01/29/17 at 20:38; Status DC Dextrose 250 ml @ 1,000 mls/hr 1X ONCE IV ; Start 01/30/17 at 07:45; Stop at 07:59; Status DC Glucose (Insta-Glucose) 15 gm PRN Q15MIN PRN PO LOW BLOOD SUGAR Last administered on 01/30/17t 07:55; Start 01/30/17 at 08:00 Glucose (Insta-Glucose) 15 gm STK-MED ONCE .ROUTE ; Start 01/30/17 at 07:52; Stop 01/30/17 at 07:53; Status DC Lidocaine HCl (Xylocaine-Mpf 1% Vial) 2 ml STK-MED ONCE .ROUTE ; Start 01/29/17 at 21:00; Stop 01/30/17 at 09:01; Status DC Active Scripts Active Xanax (Alprazolam) 0.25 Mg Tablet 0.25 Mg PO QHS PRN Oxycodone-Acetaminophen 10-325 (Oxycodone Hcl/Acetaminophen) 1 Each Tablet 1 Tab PO PRN Q6HRS PRN Hydralazine Hcl 25 Mg Tablet 25 Mg PO BID Carvedilol 12.5 Mg Tablet 12.5 Mg PO BIDWMEALS Fluconazole 100 Mg Tablet 1 Tab PO DAILY Lasix (Furosemide) 40 Mg Tablet 40 Mg PO BID Reported Lisinopril 40 Mg Tablet 1 Tab PO DAILY Humalog (Insulin Lispro) 100 Unit/1 Ml Vial 50 Unit SQ TID Lortab 5-325 mg Tablet (Hydrocodone/Acetaminophen) 1 Each Tablet 1 Tab PO PRN Q6HRS PRN Levemir (Insulin Detemir) 100 Unit/1 Ml Vial 40 Unit SQ HS Victoza 3-Devon (Liraglutide) 0.6 Mg/0.1 Ml Pen.injctr 1.2 Mg SQ DAILY Gabapentin 300 Mg Capsule 1 Cap PO DAILY PRN Vitamin D3 (Cholecalciferol (Vitamin D3)) 5,000 Unit Tablet 1 Tab PO DAILY Glimepiride 4 Mg Tablet 1 Tab PO BID Tramadol Hcl 50 Mg Tablet 2 Tab PO BID Cyclobenzaprine Hcl 10 Mg Tablet 1 Tab PO BID Klor-Con 10 (Potassium Chloride) 10 Meq Tablet.er 1 Tab PO DAILY Omeprazole 20 Mg Capsule.dr 1 Cap PO DAILY Vitals/I & O Vital Sign - Last 24 Hours 5/2501/29/17 01/29/17 01/29/17 18:36 18:36 18:40 19:45 Temp 98.5 98.5 98.5 98.5 Pulse 84 84 Resp 20 20 B/P (MAP) 159/79 (105) 159/79 (105) Pulse Ox 99 99 O2 Delivery Room Air Room Air Room Air Room Air 01/29/17 01/29/17 01/29/17 01/29/17 21:50 21:51 21:51 22:31 Pulse 84 84 Resp 18 B/P (MAP) 159/79 159/79 O2 Delivery Room Air 01/29/17 01/30/17 01/30/17 01/30/17 23:20 03:05 07:00 07:47 Temp 97.6 97.2 97.9 97.6 97.2 97.9 Pulse 71 60 57 46 Resp 18 16 18 B/P (MAP) 155/96 (115) 108/59 (75) 115/55 (75) 108/59 Pulse Ox 96 96 97 O2 Delivery Room Air Room Air Room Air 01/30/17 01/30/17 09:00 11:03 Pulse 46 46 B/P (MAP) 108/59 108/59 Intake and Output 01/29/17 01/29/17 01/30/17 15:00 23:00 07:00 Intake Total 205 ml 470 ml Balance 205 ml 470 ml DRAKE DURÁN III DO January 30, 2017 11:21
[2017-01-30] MEDS: ASPIRIN ENTERIC COATED 81 MG TABLET.DR. PO SCH (12:45)
[2017-01-30 15:05] VITALS: BP 130/67
[2017-01-30 19:30] VITALS: BP 137/72
[2017-01-30] MEDS: INSULIN DETEMIR 300 UNITS/3 ML INSULN.PEN. SQ SCH (21:00)
[2017-01-30 23:34] VITALS: BP 128/70
[2017-01-31] MEDS: GABAPENTIN 300 MG CAPSULE. PO PRN (00:56)
[2017-01-31] MEDS: oxyCODONE/APAP 10/325 1 TAB TABLET PO PRN (00:58)
[2017-01-31] MEDS ORDERED: GABAPENTIN 100 MG CAPSULE. PO ONE (02:00)
[2017-01-31 03:00] VITALS: BP 147/84
[2017-01-31 05:58] LABS: ALBUMIN 2.6 g/dL (3.4-5.0); ALBUMIN/GLOBULIN RATIO 0.9 (1.0-1.7); CALCIUM 8.1 mg/dL (8.5-10.1); CREATININE 2.5 mg/dL (0.6-1.0); GFR 19.2; MAGNESIUM 1.9 mg/dL (1.8-2.4); PHOSPHORUS 3.8 mg/dL (2.6-4.7); POTASSIUM 4.7 mmol/L (3.5-5.1); TOTAL BILIRUBIN 0.4 mg/dL (0.2-1.0); TOTAL PROTEIN 5.4 g/dL (6.4-8.2)
[2017-01-31 07:30] VITALS: BP 169/92
--- NOTE | 2017-01-31 08:07 | CARD ---
APPROVED REPORT EXAM: Two-dimensional and M-mode echocardiogram with Doppler and color Doppler. Other Information Quality : GoodHR: 74bpm Rhythm : Atrial Fibrillation INDICATION Congestive Heart Failure RISK FACTORS Obesity 2D DIMENSIONS RVDd3.1 (2.9-3.5cm)Left Atrium(2D)3.5 (1.6-4.0cm) IVSd1.3 (0.7-1.1cm)Aortic Root(2D)3.5 (2.0-3.7cm) LVDd5.0 (3.9-5.9cm)LVOT Diameter2.3 (1.8-2.4cm) PWd1.3 (0.7-1.1cm)LVDs3.3 (2.5-4.0cm) FS (%) 34.6 %SV76.1 ml LVEF(%)63.4 (>50%) Aortic Valve AoV Peak Driss.118.4cm/sAoV VTI25.3cm AO Peak GR.5.6mmHgLVOT Peak Driss.85.6cm/s AO Mean GR.3mmHgAVA (VMAX)3.05cm2 Mitral Valve MV E Peak Gr.5mmHgMV E Mean Gr.2mmHg Pulmonary Valve PV Peak Mshpjbpa02.4cm/s Tricuspid Valve TR P. Vlvjnynp094wv/sTR Peak Gr.51mmHg Pulmonary Vein S1 Dpslzlag79.8cm/sD2 Hmbqetmj20.2cm/s LEFT VENTRICLE The left ventricle is normal size. There is moderate concentric left ventricular hypertrophy. The lef t ventricular systolic function is normal. The Ejection Fraction is 60-65%. There is normal LV segmen fernando wall motion. Tissue Doppler assessment suggests moderate left ventricular diastolic dysfunction. RIGHT VENTRICLE The right ventricle is normal size. There is normal right ventricular wall thickness. The right ventr icular systolic function is normal. ATRIA The left atrium is mildly dilated. The right atrium size is normal. The interatrial septum is intact with no evidence for an atrial septal defect or patent foramen ovale as noted on 2-D or Doppler imagi ng. AORTIC VALVE The aortic valve is mildly sclerotic. The aortic valve is trileaflet. Doppler and Color Flow revealed no significant aortic regurgitation. There is no significant aortic valvular stenosis. MITRAL VALVE Mitral annular calcification is mild. The mitral valve leaflets are thickened. There is no evidence o f mitral valve prolapse. There is no mitral valve stenosis. Doppler and Color Flow revealed mild mitr al regurgitation. TRICUSPID VALVE Doppler and Color Flow revealed moderate tricuspid regurgitation. The pulmonary artery systolic press ure is estimated at 66 mmHg. There is severe pulmonary hypertension. PULMONIC VALVE Doppler and Color Flow revealed no pulmonic valvular regurgitation. There is no pulmonic valvular humble nosis. GREAT VESSELS The aortic root is normal in size. The ascending aorta is normal in size. The pulmonary artery is nor mal. The IVC is dilated and does not collapse with inspiration. PERICARDIAL EFFUSION There is no evidence of significant pericardial effusion. Critical Notification Critical Value: No <Conclusion> The left ventricular systolic function is normal. The Ejection Fraction is 60-65%. There is normal LV segmental wall motion. The left atrium is mildly dilated. Mild mitral regurgitation. Moderate tricuspid regurgitation. The pulmonary artery systolic pressure is estimated at 66 mmHg. There is severe pulmonary hypertension. There is no evidence of significant pericardial effusion.
[2017-01-31] MEDS: DOCUSATE SODIUM 100 MG CAPSULE. PO SCH ×2 (09:00→20:38)
[2017-01-31] MEDS: GABAPENTIN 400 MG CAPSULE. PO SCH ×2 (09:00→20:38)
[2017-01-31] MEDS: ASPIRIN ENTERIC COATED 81 MG TABLET.DR. PO SCH (09:13)
[2017-01-31] MEDS: CHOLECALCIFEROL (VITAMIN D3) 5,000 UNIT CAPSULE PO SCH (09:14)
[2017-01-31] MEDS: CYCLOBENZAPRINE 10 MG TABLET. PO SCH ×2 (09:14→20:38)
[2017-01-31] MEDS: GLIMEPIRIDE 2 MG TABLET. PO SCH ×2 (09:15→17:31)
[2017-01-31] MEDS: POTASSIUM CHLORIDE 10 MEQ TABLET.ER. PO SCH (09:15)
[2017-01-31] MEDS: FUROSEMIDE 40 MG/4 ML VIAL. IVP SCH (09:16)
[2017-01-31] MEDS: hydrALAZINE 25 MG TABLET PO SCH ×2 (09:16→20:36)
[2017-01-31] MEDS: LISINOPRIL 40 MG TABLET. PO SCH (09:16)
[2017-01-31] MEDS: FLUCONAZOLE 100 MG TABLET. PO SCH (09:17)
[2017-01-31] MEDS: INSULIN ASPART 300 UNITS/3 ML INSULN.PEN SQ SCH ×3 (09:32→17:00)
[2017-01-31 10:27] VITALS: BP 160/76
[2017-01-31] MEDS ORDERED: METO25TA4 PO (12:21)
[2017-01-31] MEDS ORDERED: POTA20TA82 PO (12:22)
[2017-01-31] MEDS ORDERED: FURO-68 PO (12:22)
--- NOTE | 2017-01-31 12:25 | PDOC ---
PROGRESS NOTES Chief Complaint Chief Complaint CHF Severe Edema Diabetes Obesity CKD Anemia of chronic disease History of Present Illness History of Present Illness Patient was lying in bed in NAD this am She is concerned about some R shoulder pain Stated she saw Dr. Bui who suggested an open MRI d/t concern of torn ligament Discussed that we will consult Ortho here Vitals Vitals Vital Signs Date Time Temp Pulse Resp B/P (MAP) Pulse Ox O2 Delivery O2 Flow Rate FiO2 01/31/17 10:27 98.3 64 19 160/76 (104) 95 Room Air 98.3 Physical Exam General: Alert, Oriented X3, Cooperative, No acute distress Heart: Normal S1, Normal S2, Other (AFIB; 2/6 systolic murmur to LLS border) Lungs: Clear, Other (no wheezing) Abdomen: Soft, Other (large pannus) Extremities: No cyanosis, Other (3-4+ bilateral LE pitting edema) Skin: No breakdown, Other (bilateral LE lipodermatosclerosis) Labs LABS Laboratory Tests Test 01/30/17 16:21 01/30/17 21:28 01/31/17 00:49 01/31/17 05:00 Glucose (Fingerstick) 140 mg/dL (70-99) 165 mg/dL (70-99) 166 mg/dL (70-99) Sodium Level 142 mmol/L (136-145) Potassium Level 4.7 mmol/L (3.5-5.1) Chloride Level 109 mmol/L (98-107) Carbon Dioxide Level 22 mmol/L (21-32) Anion Gap 11 (6-14) Blood Urea Nitrogen 30 mg/dL (7-20) Creatinine 2.5 mg/dL (0.6-1.0) Estimated GFR (Cockcroft-Gault) 19.2 BUN/Creatinine Ratio 12 (6-20) Glucose Level 170 mg/dL (70-99) Calcium Level 8.1 mg/dL (8.5-10.1) Phosphorus Level 3.8 mg/dL (2.6-4.7) Magnesium Level 1.9 mg/dL (1.8-2.4) Total Bilirubin 0.4 mg/dL (0.2-1.0) Aspartate Amino Transf (AST/SGOT) 13 U/L (15-37) Alanine Aminotransferase (ALT/SGPT) 13 U/L (14-59) Alkaline Phosphatase 209 U/L (46-116) Total Protein 5.4 g/dL (6.4-8.2) Albumin 2.6 g/dL (3.4-5.0) Albumin/Globulin Ratio 0.9 (1.0-1.7) Test 01/31/17 07:35 01/31/17 10:30 Glucose (Fingerstick) 161 mg/dL (70-99) 193 mg/dL (70-99) Review of Systems Review of Systems General: denies weakness MSK: c/o R shoulder pain Assessment and Plan Assessmemt and Plan Assessment: CHF Severe Edema Diabetes Obesity CKD Anemia of chronic disease Plan: -Continue aggressive diuresis per Cardio, patient is net negative 100ml this am -Strict I/Os -Consider restarting Metoprolol per Cardio since bradycardia resolved -Cardio following for AFib, will adjust anti-coag -SNU eval pending -Ortho consulted for R shoulder - Dr. Ken -Recheck am labs -PT/OT as appropriate -Appreciate subspecialist input Problems: Comment Review of Relevant I have reviewed the following items kai (where applicable) has been applied. Labs Laboratory Tests Test 01/29/17 20:00 01/29/17 20:15 01/29/17 20:50 01/30/17 04:30 White Blood Count 8.0 x10^3/uL (4.0-11.0) 7.4 x10^3/uL (4.0-11.0) Red Blood Count 4.08 x10^6/uL (3.50-5.40) 3.37 x10^6/uL (3.50-5.40) Hemoglobin 11.3 g/dL (12.0-15.5) 9.5 g/dL (12.0-15.5) Hematocrit 36.3 % (36.0-47.0) 29.9 % (36.0-47.0) Mean Corpuscular Volume 89 fL (79-100) 89 fL (79-100) Mean Corpuscular Hemoglobin 28 pg (25-35) 28 pg (25-35) Mean Corpuscular Hemoglobin Concent 31 g/dL (31-37) 32 g/dL (31-37) Red Cell Distribution Width 16.6 % (11.5-14.5) 16.3 % (11.5-14.5) Platelet Count 173 x10^3/uL (140-400) 150 x10^3/uL (140-400) Neutrophils (%) (Auto) 70 % (31-73) 50 % (31-73) Lymphocytes (%) (Auto) 22 % (24-48) 40 % (24-48) Monocytes (%) (Auto) 5 % (0-9) 6 % (0-9) Eosinophils (%) (Auto) 3 % (0-3) 3 % (0-3) Basophils (%) (Auto) 1 % (0-3) 1 % (0-3) Neutrophils # (Auto) 5.6 x10^3uL (1.8-7.7) 3.7 x10^3uL (1.8-7.7) Lymphocytes # (Auto) 1.8 x10^3/uL (1.0-4.8) 2.9 x10^3/uL (1.0-4.8) Monocytes # (Auto) 0.4 x10^3/uL (0.0-1.1) 0.4 x10^3/uL (0.0-1.1) Eosinophils # (Auto) 0.2 x10^3/uL (0.0-0.7) 0.2 x10^3/uL (0.0-0.7) Basophils # (Auto) 0.1 x10^3/uL (0.0-0.2) 0.1 x10^3/uL (0.0-0.2) Sodium Level 143 mmol/L (136-145) 146 mmol/L (136-145) Potassium Level 4.0 mmol/L (3.5-5.1) 4.0 mmol/L (3.5-5.1) Chloride Level 109 mmol/L (98-107) 113 mmol/L (98-107) Carbon Dioxide Level 24 mmol/L (21-32) 25 mmol/L (21-32) Anion Gap 10 (6-14) 8 (6-14) Blood Urea Nitrogen 25 mg/dL (7-20) 26 mg/dL (7-20) Creatinine 2.2 mg/dL (0.6-1.0) 2.3 mg/dL (0.6-1.0) Estimated GFR (Cockcroft-Gault) 22.2 21.1 BUN/Creatinine Ratio 11 (6-20) Glucose Level 273 mg/dL (70-99) 75 mg/dL (70-99) Calcium Level 8.4 mg/dL (8.5-10.1) 7.9 mg/dL (8.5-10.1) Magnesium Level 1.9 mg/dL (1.8-2.4) 1.8 mg/dL (1.8-2.4) Total Bilirubin 0.5 mg/dL (0.2-1.0) Aspartate Amino Transf (AST/SGOT) 13 U/L (15-37) Alanine Aminotransferase (ALT/SGPT) 15 U/L (14-59) Alkaline Phosphatase 247 U/L (46-116) Total Protein 6.5 g/dL (6.4-8.2) Albumin 2.9 g/dL (3.4-5.0) Albumin/Globulin Ratio 0.8 (1.0-1.7) Hemoglobin A1c 7.2 % (4.8-5.6) Troponin I Quantitative < 0.017 ng/mL (0.000-0.055) < 0.017 ng/mL (0.000-0.055) RX-Nsl-L-Type Natriuretic Peptide 3583 pg/mL (0-124) Thyroid Stimulating Hormone (TSH) 0.766 uIU/mL (0.358-3.74) Glucose (Fingerstick) 306 mg/dL (70-99) Prothrombin Time 15.1 SEC (11.7-14.0) Prothromb Time International Ratio 1.3 (0.8-1.1) Triglycerides Level 29 mg/dL (0-150) Cholesterol Level 80 mg/dL (0-200) LDL Cholesterol, Calculated 32 mg/dL (0-100) VLDL Cholesterol, Calculated 6 mg/dL (0-40) Non-HDL Cholesterol Calculated 38 mg/dL (0-129) HDL Cholesterol 42 mg/dL (40-60) Cholesterol/HDL Ratio 1.9 Test 01/30/17 07:03 01/30/17 07:36 01/30/17 11:28 01/30/17 16:21 Glucose (Fingerstick) 50 mg/dL (70-99) 53 mg/dL (70-99) 116 mg/dL (70-99) 140 mg/dL (70-99) Test 01/30/17 21:28 01/31/17 00:49 01/31/17 05:00 01/31/17 07:35 Glucose (Fingerstick) 165 mg/dL (70-99) 166 mg/dL (70-99) 161 mg/dL (70-99) Sodium Level 142 mmol/L (136-145) Potassium Level 4.7 mmol/L (3.5-5.1) Chloride Level 109 mmol/L (98-107) Carbon Dioxide Level 22 mmol/L (21-32) Anion Gap 11 (6-14) Blood Urea Nitrogen 30 mg/dL (7-20) Creatinine 2.5 mg/dL (0.6-1.0) Estimated GFR (Cockcroft-Gault) 19.2 BUN/Creatinine Ratio 12 (6-20) Glucose Level 170 mg/dL (70-99) Calcium Level 8.1 mg/dL (8.5-10.1) Phosphorus Level 3.8 mg/dL (2.6-4.7) Magnesium Level 1.9 mg/dL (1.8-2.4) Total Bilirubin 0.4 mg/dL (0.2-1.0) Aspartate Amino Transf (AST/SGOT) 13 U/L (15-37) Alanine Aminotransferase (ALT/SGPT) 13 U/L (14-59) Alkaline Phosphatase 209 U/L (46-116) Total Protein 5.4 g/dL (6.4-8.2) Albumin 2.6 g/dL (3.4-5.0) Albumin/Globulin Ratio 0.9 (1.0-1.7) Test 01/31/17 10:30 Glucose (Fingerstick) 193 mg/dL (70-99) Laboratory Tests Test 01/30/17 16:21 01/30/17 21:28 01/31/17 00:49 01/31/17 05:00 Glucose (Fingerstick) 140 mg/dL (70-99) 165 mg/dL (70-99) 166 mg/dL (70-99) Sodium Level 142 mmol/L (136-145) Potassium Level 4.7 mmol/L (3.5-5.1) Chloride Level 109 mmol/L (98-107) Carbon Dioxide Level 22 mmol/L (21-32) Anion Gap 11 (6-14) Blood Urea Nitrogen 30 mg/dL (7-20) Creatinine 2.5 mg/dL (0.6-1.0) Estimated GFR (Cockcroft-Gault) 19.2 BUN/Creatinine Ratio 12 (6-20) Glucose Level 170 mg/dL (70-99) Calcium Level 8.1 mg/dL (8.5-10.1) Phosphorus Level 3.8 mg/dL (2.6-4.7) Magnesium Level 1.9 mg/dL (1.8-2.4) Total Bilirubin 0.4 mg/dL (0.2-1.0) Aspartate Amino Transf (AST/SGOT) 13 U/L (15-37) Alanine Aminotransferase (ALT/SGPT) 13 U/L (14-59) Alkaline Phosphatase 209 U/L (46-116) Total Protein 5.4 g/dL (6.4-8.2) Albumin 2.6 g/dL (3.4-5.0) Albumin/Globulin Ratio 0.9 (1.0-1.7) Test 01/31/17 07:35 01/31/17 10:30 Glucose (Fingerstick) 161 mg/dL (70-99) 193 mg/dL (70-99) Medications Current Medications Zolpidem Tartrate (Ambien) 5 mg PRN QHS PRN PO INSOMNIA, MAY REPEAT IN 1HR; Start 01/29/17 at 18:45 Oxycodone HCl (Roxicodone) 5 mg PRN Q3HRS PRN PO BREAKTHROUGH PAIN; Start 01/29 at 18:45 Acetaminophen (Tylenol) 650 mg PRN Q6HRS PRN PO Headaches, Temp > 101.5F; Start 01/29/17 at 18:45 Ibuprofen (Motrin) 400 mg PRN Q6HRS PRN PO MILD PAIN; Start 01/29/17 at 18:45 Docusate Sodium (Colace) 100 mg BID PO ; Start 01/29/17 at 21:00 Magnesium Hydroxide (Milk Of Magnesia) 2,400 mg PRN Q12HR PRN PO CONSTIPATION; Start 01/29/17 at 18:45 Lactulose 20 gm PRN Q12HR PRN PO CONSTIPATION; Start 01/29/17 at 18:45 Bisacodyl (Dulcolax Supp) 10 mg PRN DAILY PRN MD CONSTIPATION; Start 01/29/17 at 18:45 Enoxaparin Sodium (Lovenox 40mg Syringe) 40 mg Q12HR SQ Last administered on 21:09; Start 01/29/17 at 22:00; Stop 01/31/17 at 07:12; Status DC Alprazolam (Xanax) 0.25 mg QHS PRN PO ANXIETY / AGITATION; Start 01/29/17 at 18 :45 Carvedilol (Coreg) 12.5 mg BIDWMEALS PO Last administered on 01/29/17 21:51; Start 01/29/17 at 19:00; Stop 01/30/17 at 11:28; Status DC Cyclobenzaprine HCl (Flexeril) 10 mg BID PO Last administered on 01/31/17 09: 14; Start 01/29/17 at 21:00 Fluconazole (Diflucan) 100 mg DAILY PO Last administered on 01/31/17 09:17; Start 01/30/17 at 09:00 Furosemide (Lasix) 40 mg BID92 PO ; Start 01/30/17 at 09:00; Stop 01/30/17 at 09 :00; Status DC Hydralazine HCl (Apresoline) 25 mg BID PO Last administered on 01/31/17 09:16 ; Start 01/29/17 at 21:00 Acetaminophen/ Hydrocodone Bitart (Lortab 5/325) 1 tab PRN Q6HRS PRN PO MILD PAIN Last administered on 01/29/17 22:31; Start 01/29/17 at 18:45 Lisinopril (Prinivil) 40 mg DAILY PO Last administered on 01/31/17 09:16; Start 01/30/17 at 09:00 Oxycodone/ Acetaminophen (Percocet 10/325) 1 tab PRN Q6HRS PRN PO MODERATE- SEVERE PAIN Last administered on 01/31/17 00:58; Start 01/29/17 at 18:45 Tramadol HCl (Ultram) 100 mg BID PO Last administered on 01/29/17 21:50; Start 01/29/17 at 21:00; Stop 01/30/17 at 11:51; Status DC Vitamin D (Vitamin D3) 5,000 unit DAILY PO Last administered on 01/31/17 09:14 ; Start 01/30/17 at 09:00 Gabapentin (Neurontin) 300 mg PRN DAILY PRN PO NERVE PAIN Last administered on 01/31/17 00:56; Start 01/29/17 at 21:00 Glimepiride (Amaryl) 4 mg BIDWMEALS PO Last administered on 01/31/17 09:15; Start 01/30/17 at 09:00 Insulin Detemir (Levemir) 40 units QHS SQ Last administered on 01/29/17 22:01 ; Start 01/29/17 at 21:00; Stop 01/30/17 at 11:51; Status DC Insulin Aspart (NovoLOG) 50 units TIDAC SQ Last administered on 01/29/17 22:00 ; Start 01/29/17 at 19:00; Stop 01/30/17 at 11:51; Status DC Non-Formulary Medication 1.2 mg DAILY SQ ; Start 01/30/17 at 09:00; Stop at 09:00; Status DC Pantoprazole Sodium (Protonix) 40 mg DAILYAC PO Last administered on 01/30/17 11:02; Start 01/30/17 at 07:30 Potassium Chloride (Klor-Con) 10 meq DAILYWBKFT PO Last administered on 09:15; Start 01/30/17 at 08:00 Insulin Aspart (NovoLOG) 0-9 UNITS TIDWMEALS SQ Last administered on 01/31/17 09:32; Start 01/30/17 at 08:00 Dextrose (Dextrose 50%-Water Syringe) 12.5 gm PRN Q15MIN PRN IV SEE COMMENTS; Start 01/29/17 at 18:45 Furosemide (Lasix) 40 mg 1X ONCE IVP Last administered on 01/29/17 21:52; Start 01/29/17 at 21:00; Stop 01/29/17 at 21:01; Status DC Furosemide (Lasix) 40 mg BID92 IVP Last administered on 01/30/17 11:01; Start 01/30/17 at 09:00; Stop 01/30/17 at 11:28; Status DC Lidocaine HCl (Xylocaine-Mpf 1% Vial) 2 ml STK-MED ONCE .ROUTE ; Start 01/29/17 at 20:37; Stop 01/29/17 at 20:38; Status DC Dextrose 250 ml @ 1,000 mls/hr 1X ONCE IV ; Start 01/30/17 at 07:45; Stop at 07:59; Status DC Glucose (Insta-Glucose) 15 gm PRN Q15MIN PRN PO LOW BLOOD SUGAR Last administered on 01/30/17 07:55; Start 01/30/17 at 08:00 Glucose (Insta-Glucose) 15 gm STK-MED ONCE .ROUTE ; Start 01/30/17 at 07:52; Stop 01/30/17 at 07:53; Status DC Lidocaine HCl (Xylocaine-Mpf 1% Vial) 2 ml STK-MED ONCE .ROUTE ; Start 01/29/17 at 21:00; Stop 01/30/17 at 09:01; Status DC Furosemide (Lasix) 40 mg DAILY IVP Last administered on 01/31/17 09:16; Start 01/31/17 at 09:00 Aspirin (Ecotrin) 81 mg DAILYWBKFT PO Last administered on 01/31/17 09:13; Start 01/30/17 at 12:30 Insulin Detemir (Levemir) 25 units QHS SQ ; Start 01/30/17 at 21:00 Gabapentin (Neurontin) 400 mg BID PO ; Start 01/31/17 at 09:00 Gabapentin (Neurontin) 100 mg 1X ONCE PO Last administered on 01/31/17 01:56 ; Start 01/31/17 at 02:00; Stop 01/31/17 at 02:01; Status DC Enoxaparin Sodium (Lovenox 40mg Syringe) 40 mg QHS SQ ; Start 01/31/17 at 21:00 Active Scripts Active Xanax (Alprazolam) 0.25 Mg Tablet 0.25 Mg PO QHS PRN Oxycodone-Acetaminophen 10-325 (Oxycodone Hcl/Acetaminophen) 1 Each Tablet 1 Tab PO PRN Q6HRS PRN Hydralazine Hcl 25 Mg Tablet 25 Mg PO BID Carvedilol 12.5 Mg Tablet 12.5 Mg PO BIDWMEALS Fluconazole 100 Mg Tablet 1 Tab PO DAILY Lasix (Furosemide) 40 Mg Tablet 40 Mg PO BID Reported Lisinopril 40 Mg Tablet 1 Tab PO DAILY Humalog (Insulin Lispro) 100 Unit/1 Ml Vial 50 Unit SQ TID Lortab 5-325 mg Tablet (Hydrocodone/Acetaminophen) 1 Each Tablet 1 Tab PO PRN Q6HRS PRN Levemir (Insulin Detemir) 100 Unit/1 Ml Vial 40 Unit SQ HS Victoza 3-Devon (Liraglutide) 0.6 Mg/0.1 Ml Pen.injctr 1.2 Mg SQ DAILY Gabapentin 300 Mg Capsule 1 Cap PO DAILY PRN Vitamin D3 (Cholecalciferol (Vitamin D3)) 5,000 Unit Tablet 1 Tab PO DAILY Glimepiride 4 Mg Tablet 1 Tab PO BID Tramadol Hcl 50 Mg Tablet 2 Tab PO BID Cyclobenzaprine Hcl 10 Mg Tablet 1 Tab PO BID Klor-Con 10 (Potassium Chloride) 10 Meq Tablet.er 1 Tab PO DAILY Omeprazole 20 Mg Capsule. 1 Cap PO DAILY Vitals/I & O Vital Sign - Last 24 Hours 01/30/17 01/30/17 01/30/17 01/30/17 15:05 19:30 20:00 21:08 Temp 98.7 98.1 98.7 98.1 Pulse 64 86 86 Resp 16 21 B/P (MAP) 130/67 (88) 137/72 (93) 137/72 Pulse Ox 99 96 O2 Delivery Room Air Room Air Room Air 01/30/17 01/31/17 01/31/17 01/31/17 23:34 00:58 01:58 03:00 Temp 98.9 98.1 98.9 98.1 Pulse 89 76 Resp 17 B/P (MAP) 128/70 (89) 147/84 (105) Pulse Ox 96 94 O2 Delivery Room Air Room Air Room Air Room Air 01/31/17 01/31/17 01/31/17 01/31/17 07:30 08:05 09:16 09:16 Temp 98.2 98.2 Pulse 75 79 72 Resp 20 B/P (MAP) 169/92 (117) 169/92 169/92 Pulse Ox 94 O2 Delivery Room Air Room Air 01/31/17 10:27 Temp 98.3 98.3 Pulse 64 Resp 19 B/P (MAP) 160/76 (104) Pulse Ox 95 O2 Delivery Room Air Intake and Output 01/30/17 01/30/17 01/31/17 15:00 23:00 07:00 Intake Total 950 ml 150 ml Output Total 1200 ml Balance -250 ml 150 ml DRAKE DURÁN III DO January 31, 2017 12:25
--- NOTE | 2017-01-31 12:37 | PDOC ---
PROGRESS NOTES Subjective Subjective Feeling better today Objective Objective Vital Signs Date Time Temp Pulse Resp B/P (MAP) Pulse Ox O2 Delivery O2 Flow Rate FiO2 01/31/17 10:27 98.3 64 19 160/76 (104) 95 Room Air 98.3 Intake and Output 01/31/17 07:00 Intake Total 1100 ml Output Total 1200 ml Balance -100 ml Intake Oral 1100 ml Output Stool Total 1200 ml # Bowel Movements 2 Physical Exam Abdomen: Soft, Other (large pannus) Heart: Normal S1, Normal S2, Other (AFIB; 2/6 systolic murmur to LLS border) Extremities: No cyanosis, Other (3-4+ bilateral LE pitting edema) General: Alert, Oriented X3, Cooperative, No acute distress HEENT: Atraumatic, Mucous membr. moist/pink Lungs: Other (basilar crackles) Neuro: Normal speech, Sensation intact Psych/Mental Status: Mental status NL, Mood NL Skin: No breakdown, Other (bilateral LE lipodermatosclerosis) Assessment Assessment 1. Acute on chronic diastolic CHF: Better compensated. 2D echo showed normal LV function. Continue current meds. 2. New onset AFIB: Rate controlled, Eliquis for stroke prophylaxis (samples till patient can get into an assistance program) 3. CKD4 4. HTN: continue current meds 5. DM2/DLP: per PCP Comment Review of Relevant I have reviewed the following items kai (where applicable) has been applied. Labs Laboratory Tests Test 01/30/17 16:21 01/30/17 21:28 01/31/17 00:49 01/31/17 05:00 Glucose (Fingerstick) 140 mg/dL (70-99) 165 mg/dL (70-99) 166 mg/dL (70-99) Sodium Level 142 mmol/L (136-145) Potassium Level 4.7 mmol/L (3.5-5.1) Chloride Level 109 mmol/L (98-107) Carbon Dioxide Level 22 mmol/L (21-32) Anion Gap 11 (6-14) Blood Urea Nitrogen 30 mg/dL (7-20) Creatinine 2.5 mg/dL (0.6-1.0) Estimated GFR (Cockcroft-Gault) 19.2 BUN/Creatinine Ratio 12 (6-20) Glucose Level 170 mg/dL (70-99) Calcium Level 8.1 mg/dL (8.5-10.1) Phosphorus Level 3.8 mg/dL (2.6-4.7) Magnesium Level 1.9 mg/dL (1.8-2.4) Total Bilirubin 0.4 mg/dL (0.2-1.0) Aspartate Amino Transf (AST/SGOT) 13 U/L (15-37) Alanine Aminotransferase (ALT/SGPT) 13 U/L (14-59) Alkaline Phosphatase 209 U/L (46-116) Total Protein 5.4 g/dL (6.4-8.2) Albumin 2.6 g/dL (3.4-5.0) Albumin/Globulin Ratio 0.9 (1.0-1.7) Test 01/31/17 07:35 01/31/17 10:30 Glucose (Fingerstick) 161 mg/dL (70-99) 193 mg/dL (70-99) Medications Current Medications Enoxaparin Sodium (Lovenox 40mg Syringe) 40 mg QHS SQ ; Start 01/31/17 at 21:00 Furosemide (Lasix) 40 mg DAILY IVP Last administered on 01/31/17 09:16; Start 01/31/17 at 09:00 Gabapentin (Neurontin) 100 mg 1X ONCE PO Last administered on 01/31/17 01:56 ; Start 01/31/17 at 02:00; Stop 01/31/17 at 02:01; Status DC Gabapentin (Neurontin) 400 mg BID PO ; Start 01/31/17 at 09:00 Insulin Detemir (Levemir) 25 units QHS SQ ; Start 01/30/17 at 21:00 Vitals/I & O Vital Sign - Last 24 Hours 01/30/17 01/30/17 01/30/17 01/30/17 15:05 19:30 20:00 21:08 Temp 98.7 98.1 98.7 98.1 Pulse 64 86 86 Resp 16 21 B/P (MAP) 130/67 (88) 137/72 (93) 137/72 Pulse Ox 99 96 O2 Delivery Room Air Room Air Room Air 01/30/17 01/31/17 01/31/17 01/31/17 23:34 00:58 01:58 03:00 Temp 98.9 98.1 98.9 98.1 Pulse 89 76 Resp 21 17 B/P (MAP) 128/70 (89) 147/84 (105) Pulse Ox 96 94 O2 Delivery Room Air Room Air Room Air Room Air 01/31/17 01/31/17 01/31/17 01/31/17 07:30 08:05 09:16 09:16 Temp 98.2 98.2 Pulse 75 79 72 Resp 20 B/P (MAP) 169/92 (117) 169/92 169/92 Pulse Ox 94 O2 Delivery Room Air Room Air 01/31/17 10:27 Temp 98.3 98.3 Pulse 64 Resp 19 B/P (MAP) 160/76 (104) Pulse Ox 95 O2 Delivery Room Air Intake and Output 01/30/17 01/30/17 01/31/17 15:00 23:00 07:00 Intake Total 950 ml 150 ml Output Total 1200 ml Balance -250 ml 150 ml TATY MORIN MD January 31, 2017 12:37
[2017-01-31 14:19] VITALS: BP 148/72
[2017-01-31 19:39] VITALS: BP 152/70
[2017-01-31] MEDS: ENOXAPARIN 40 MG/0.4 ML SYRINGE. SQ SCH (20:37)
[2017-01-31] MEDS: INSULIN DETEMIR 300 UNITS/3 ML INSULN.PEN. SQ SCH (20:38)
[2017-01-31 23:23] VITALS: BP 133/62
[2017-02-01 03:05] VITALS: BP 153/76
[2017-02-01 04:07] LABS: BASO # 0.1 x10^3/uL (0.0-0.2); BASO % 1 % (0-3); EOS % 4 % (0-3); HEMATOCRIT 31.1 % (36.0-47.0); HEMOGLOBIN 9.9 g/dL (12.0-15.5); LYMPH # 2.6 x10^3/uL (1.0-4.8); LYMPH % 35 % (24-48); MEAN CORPUSCULAR HEMOGLOBIN 28 pg (25-35); MEAN CORPUSCULAR HGB CONC 32 g/dL (31-37); MEAN CORPUSCULAR VOLUME 89 fL (79-100); MONO % 7 % (0-9); NEUT % 54 % (31-73); PLATELET COUNT 145 x10^3/uL (140-400); RED BLOOD COUNT 3.51 x10^6/uL (3.50-5.40); RED CELL DISTRIBUTION WIDTH 16.2 % (11.5-14.5); WHITE BLOOD COUNT 7.3 x10^3/uL (4.0-11.0)
[2017-02-01 04:22] LABS: CREATININE 2.5 mg/dL (0.6-1.0); GFR 19.2; POTASSIUM 4.6 mmol/L (3.5-5.1)
[2017-02-01 07:37] VITALS: BP 142/71
[2017-02-01] MEDS: INSULIN ASPART 300 UNITS/3 ML INSULN.PEN SQ SCH ×3 (08:00→17:28)
[2017-02-01] MEDS: POTASSIUM CHLORIDE 10 MEQ TABLET.ER. PO SCH (08:42)
[2017-02-01] MEDS: ASPIRIN ENTERIC COATED 81 MG TABLET.DR. PO SCH (08:42)
[2017-02-01] MEDS: DOCUSATE SODIUM 100 MG CAPSULE. PO SCH ×2 (08:42→21:00)
[2017-02-01] MEDS: hydrALAZINE 25 MG TABLET PO SCH ×2 (08:43→21:25)
[2017-02-01] MEDS: CHOLECALCIFEROL (VITAMIN D3) 5,000 UNIT CAPSULE PO SCH (08:43)
[2017-02-01] MEDS: LISINOPRIL 40 MG TABLET. PO SCH (08:43)
[2017-02-01] MEDS: FLUCONAZOLE 100 MG TABLET. PO SCH (08:43)
[2017-02-01] MEDS: GLIMEPIRIDE 2 MG TABLET. PO SCH ×2 (08:43→17:24)
[2017-02-01] MEDS: CYCLOBENZAPRINE 10 MG TABLET. PO SCH ×2 (08:43→21:25)
[2017-02-01] MEDS: FUROSEMIDE 40 MG/4 ML VIAL. IVP SCH (08:45)
[2017-02-01] MEDS: GABAPENTIN 400 MG CAPSULE. PO SCH ×2 (09:00→21:25)
[2017-02-01] MEDS: PANTOPRAZOLE 40 MG TABLET.DR. PO SCH (09:43)
[2017-02-01 10:22] VITALS: BP 122/56
--- NOTE | 2017-02-01 11:04 | PDOC ---
PROGRESS NOTES Subjective Subjective Patient feeling better. Dyspnea improving. Objective Objective Vital Signs Date Time Temp Pulse Resp B/P (MAP) Pulse Ox O2 Delivery O2 Flow Rate FiO2 02/01/17 10:22 98.0 80 18 122/56 (78) 95 Room Air 98.0 Intake and Output 02/01/17 07:00 Intake Total 1100 ml Output Total 150 ml Balance 950 ml Intake Oral 1100 ml Output Urine Total 150 ml # Voids 2 # Bowel Movements 4 Physical Exam Abdomen: Soft, Other (large pannus) Heart: Normal S1, Normal S2, Other (AFIB; 2/6 systolic murmur to LLS border) Extremities: No cyanosis, Other (3-4+ bilateral LE pitting edema) General: Alert, Oriented X3, Cooperative, No acute distress HEENT: Atraumatic, Mucous membr. moist/pink Lungs: Other (basilar crackles) Neuro: Normal speech, Sensation intact Psych/Mental Status: Mental status NL, Mood NL Skin: No breakdown, Other (bilateral LE lipodermatosclerosis) Assessment Assessment 1. Acute on chronic diastolic CHF: Better compensated. 2D echo showed normal LV function. Continue current meds. 2. New onset AFIB: Rate controlled, Eliquis for stroke prophylaxis (samples till patient can get into an assistance program) 3. CKD4 4. HTN: continue current meds 5. DM2/DLP: per PCP Comment Review of Relevant I have reviewed the following items kai (where applicable) has been applied. Labs Laboratory Tests Test 01/31/17 16:46 01/31/17 20:35 02/01/17 03:30 02/01/17 04:30 Glucose (Fingerstick) 126 mg/dL (70-99) 98 mg/dL (70-99) Sodium Level 145 mmol/L (136-145) Potassium Level 4.6 mmol/L (3.5-5.1) Chloride Level 112 mmol/L (98-107) Carbon Dioxide Level 24 mmol/L (21-32) Anion Gap 9 (6-14) Blood Urea Nitrogen 31 mg/dL (7-20) Creatinine 2.5 mg/dL (0.6-1.0) Estimated GFR (Cockcroft-Gault) 19.2 Glucose Level 72 mg/dL (70-99) Calcium Level 8.0 mg/dL (8.5-10.1) White Blood Count 7.3 x10^3/uL (4.0-11.0) Red Blood Count 3.51 x10^6/uL (3.50-5.40) Hemoglobin 9.9 g/dL (12.0-15.5) Hematocrit 31.1 % (36.0-47.0) Mean Corpuscular Volume 89 fL (79-100) Mean Corpuscular Hemoglobin 28 pg (25-35) Mean Corpuscular Hemoglobin Concent 32 g/dL (31-37) Red Cell Distribution Width 16.2 % (11.5-14.5) Platelet Count 145 x10^3/uL (140-400) Neutrophils (%) (Auto) 54 % (31-73) Lymphocytes (%) (Auto) 35 % (24-48) Monocytes (%) (Auto) 7 % (0-9) Eosinophils (%) (Auto) 4 % (0-3) Basophils (%) (Auto) 1 % (0-3) Neutrophils # (Auto) 3.9 x10^3uL (1.8-7.7) Lymphocytes # (Auto) 2.6 x10^3/uL (1.0-4.8) Monocytes # (Auto) 0.5 x10^3/uL (0.0-1.1) Eosinophils # (Auto) 0.3 x10^3/uL (0.0-0.7) Basophils # (Auto) 0.1 x10^3/uL (0.0-0.2) Test 02/01/17 07:38 Glucose (Fingerstick) 52 mg/dL (70-99) Medications Current Medications Enoxaparin Sodium (Lovenox 40mg Syringe) 40 mg QHS SQ Last administered on 01/31t 20:37; Start 01/31/17 at 21:00 Vitals/I & O Vital Sign - Last 24 Hours 01/31/17 01/31/17 01/31/17 01/31/17 14:19 19:39 20:00 20:36 Temp 98.6 97.9 98.6 97.9 Pulse 75 70 70 Resp 20 18 B/P (MAP) 148/72 (97) 152/70 (97) 152/70 Pulse Ox 95 98 O2 Delivery Room Air Room Air Room Air 01/31/17 02/01/17 02/01/17 02/01/17 23:23 03:05 07:37 08:00 Temp 98.2 98.0 97.6 98.2 98.0 97.6 Pulse 66 79 67 Resp 17 18 19 B/P (MAP) 133/62 (85) 153/76 (101) 142/71 (94) Pulse Ox 97 93 94 O2 Delivery Room Air Room Air Room Air Room Air 02/01/17 02/01/17 02/01/17 08:43 08:43 10:22 Temp 98.0 98.0 Pulse 67 67 80 Resp 18 B/P (MAP) 142/71 142/71 122/56 (78) Pulse Ox 95 O2 Delivery Room Air Intake and Output 01/31/17 01/31/17 02/01/17 15:00 23:00 07:00 Intake Total 300 ml 650 ml 150 ml Output Total 150 ml Balance 300 ml 650 ml 0 ml TATY MORIN MD February 01, 2017 11:03
[2017-02-01] MEDS: oxyCODONE IR 5 MG TABLET PO PRN (11:51)
[2017-02-01] MEDS: GABAPENTIN 300 MG CAPSULE. PO PRN (11:51)
--- NOTE | 2017-02-01 13:12 | PDOC ---
PROGRESS NOTES Chief Complaint Chief Complaint CHF Severe Edema Diabetes Obesity CKD Anemia of chronic disease History of Present Illness History of Present Illness Patient was lying in bed in NAD this am States they "came by to take an x-ray but what good is an x-ray gonna do me?" Also states she cannot afford Eliquis as outpatient and would prefer to take Warfarin Discussed care with nurse Vitals Vitals Vital Signs Date Time Temp Pulse Resp B/P (MAP) Pulse Ox O2 Delivery O2 Flow Rate FiO2 02/01/17 13:02 Room Air 02/01/17 10:22 98.0 80 18 122/56 (78) 95 98.0 Physical Exam General: Alert, Oriented X3, Cooperative, No acute distress Heart: Normal S1, Normal S2, Other (AFIB; 2/6 systolic murmur to LLS border) Lungs: Clear, Other (no wheezing) Abdomen: Soft, Other (large pannus) Extremities: No cyanosis, Other (3-4+ bilateral LE pitting edema) Skin: No breakdown, Other (bilateral LE lipodermatosclerosis) Labs LABS Laboratory Tests Test 01/31/17 16:46 01/31/17 20:35 02/01/17 03:30 02/01/17 04:30 Glucose (Fingerstick) 126 mg/dL (70-99) 98 mg/dL (70-99) Sodium Level 145 mmol/L (136-145) Potassium Level 4.6 mmol/L (3.5-5.1) Chloride Level 112 mmol/L (98-107) Carbon Dioxide Level 24 mmol/L (21-32) Anion Gap 9 (6-14) Blood Urea Nitrogen 31 mg/dL (7-20) Creatinine 2.5 mg/dL (0.6-1.0) Estimated GFR (Cockcroft-Gault) 19.2 Glucose Level 72 mg/dL (70-99) Calcium Level 8.0 mg/dL (8.5-10.1) White Blood Count 7.3 x10^3/uL (4.0-11.0) Red Blood Count 3.51 x10^6/uL (3.50-5.40) Hemoglobin 9.9 g/dL (12.0-15.5) Hematocrit 31.1 % (36.0-47.0) Mean Corpuscular Volume 89 fL (79-100) Mean Corpuscular Hemoglobin 28 pg (25-35) Mean Corpuscular Hemoglobin Concent 32 g/dL (31-37) Red Cell Distribution Width 16.2 % (11.5-14.5) Platelet Count 145 x10^3/uL (140-400) Neutrophils (%) (Auto) 54 % (31-73) Lymphocytes (%) (Auto) 35 % (24-48) Monocytes (%) (Auto) 7 % (0-9) Eosinophils (%) (Auto) 4 % (0-3) Basophils (%) (Auto) 1 % (0-3) Neutrophils # (Auto) 3.9 x10^3uL (1.8-7.7) Lymphocytes # (Auto) 2.6 x10^3/uL (1.0-4.8) Monocytes # (Auto) 0.5 x10^3/uL (0.0-1.1) Eosinophils # (Auto) 0.3 x10^3/uL (0.0-0.7) Basophils # (Auto) 0.1 x10^3/uL (0.0-0.2) Test 02/01/17 07:38 02/01/17 10:24 Glucose (Fingerstick) 52 mg/dL (70-99) 141 mg/dL (70-99) Review of Systems Review of Systems General: denies weakness GI: denies N/V/D/C Assessment and Plan Assessmemt and Plan Assessment: CHF Severe Edema Diabetes Obesity CKD Anemia of chronic disease Plan: -Continue diuresis, pt is net +950ml today -Continue anti-coagulation -Ortho consulted for R shoulder pain -Continue current medications -Recheck AM labs -PT/OT as appropriate -Discharge disposition pending -Subspecialist input appreciated Problems: Comment Review of Relevant I have reviewed the following items kai (where applicable) has been applied. Labs Laboratory Tests Test 01/30/17 16:21 01/30/17 21:28 01/31/17 00:49 01/31/17 05:00 Glucose (Fingerstick) 140 mg/dL (70-99) 165 mg/dL (70-99) 166 mg/dL (70-99) Sodium Level 142 mmol/L (136-145) Potassium Level 4.7 mmol/L (3.5-5.1) Chloride Level 109 mmol/L (98-107) Carbon Dioxide Level 22 mmol/L (21-32) Anion Gap 11 (6-14) Blood Urea Nitrogen 30 mg/dL (7-20) Creatinine 2.5 mg/dL (0.6-1.0) Estimated GFR (Cockcroft-Gault) 19.2 BUN/Creatinine Ratio 12 (6-20) Glucose Level 170 mg/dL (70-99) Calcium Level 8.1 mg/dL (8.5-10.1) Phosphorus Level 3.8 mg/dL (2.6-4.7) Magnesium Level 1.9 mg/dL (1.8-2.4) Total Bilirubin 0.4 mg/dL (0.2-1.0) Aspartate Amino Transf (AST/SGOT) 13 U/L (15-37) Alanine Aminotransferase (ALT/SGPT) 13 U/L (14-59) Alkaline Phosphatase 209 U/L (46-116) Total Protein 5.4 g/dL (6.4-8.2) Albumin 2.6 g/dL (3.4-5.0) Albumin/Globulin Ratio 0.9 (1.0-1.7) Test 01/31/17 07:35 01/31/17 10:30 01/31/17 16:46 01/31/17 20:35 Glucose (Fingerstick) 161 mg/dL (70-99) 193 mg/dL (70-99) 126 mg/dL (70-99) 98 mg/dL (70-99) Test 02/01/17 03:30 02/01/17 04:30 02/01/17 07:38 02/01/17 10:24 Sodium Level 145 mmol/L (136-145) Potassium Level 4.6 mmol/L (3.5-5.1) Chloride Level 112 mmol/L (98-107) Carbon Dioxide Level 24 mmol/L (21-32) Anion Gap 9 (6-14) Blood Urea Nitrogen 31 mg/dL (7-20) Creatinine 2.5 mg/dL (0.6-1.0) Estimated GFR (Cockcroft-Gault) 19.2 Glucose Level 72 mg/dL (70-99) Calcium Level 8.0 mg/dL (8.5-10.1) White Blood Count 7.3 x10^3/uL (4.0-11.0) Red Blood Count 3.51 x10^6/uL (3.50-5.40) Hemoglobin 9.9 g/dL (12.0-15.5) Hematocrit 31.1 % (36.0-47.0) Mean Corpuscular Volume 89 fL (79-100) Mean Corpuscular Hemoglobin 28 pg (25-35) Mean Corpuscular Hemoglobin Concent 32 g/dL (31-37) Red Cell Distribution Width 16.2 % (11.5-14.5) Platelet Count 145 x10^3/uL (140-400) Neutrophils (%) (Auto) 54 % (31-73) Lymphocytes (%) (Auto) 35 % (24-48) Monocytes (%) (Auto) 7 % (0-9) Eosinophils (%) (Auto) 4 % (0-3) Basophils (%) (Auto) 1 % (0-3) Neutrophils # (Auto) 3.9 x10^3uL (1.8-7.7) Lymphocytes # (Auto) 2.6 x10^3/uL (1.0-4.8) Monocytes # (Auto) 0.5 x10^3/uL (0.0-1.1) Eosinophils # (Auto) 0.3 x10^3/uL (0.0-0.7) Basophils # (Auto) 0.1 x10^3/uL (0.0-0.2) Glucose (Fingerstick) 52 mg/dL (70-99) 141 mg/dL (70-99) Laboratory Tests Test 01/31/17 16:46 01/31/17 20:35 02/01/17 03:30 02/01/17 04:30 Glucose (Fingerstick) 126 mg/dL (70-99) 98 mg/dL (70-99) Sodium Level 145 mmol/L (136-145) Potassium Level 4.6 mmol/L (3.5-5.1) Chloride Level 112 mmol/L (98-107) Carbon Dioxide Level 24 mmol/L (21-32) Anion Gap 9 (6-14) Blood Urea Nitrogen 31 mg/dL (7-20) Creatinine 2.5 mg/dL (0.6-1.0) Estimated GFR (Cockcroft-Gault) 19.2 Glucose Level 72 mg/dL (70-99) Calcium Level 8.0 mg/dL (8.5-10.1) White Blood Count 7.3 x10^3/uL (4.0-11.0) Red Blood Count 3.51 x10^6/uL (3.50-5.40) Hemoglobin 9.9 g/dL (12.0-15.5) Hematocrit 31.1 % (36.0-47.0) Mean Corpuscular Volume 89 fL (79-100) Mean Corpuscular Hemoglobin 28 pg (25-35) Mean Corpuscular Hemoglobin Concent 32 g/dL (31-37) Red Cell Distribution Width 16.2 % (11.5-14.5) Platelet Count 145 x10^3/uL (140-400) Neutrophils (%) (Auto) 54 % (31-73) Lymphocytes (%) (Auto) 35 % (24-48) Monocytes (%) (Auto) 7 % (0-9) Eosinophils (%) (Auto) 4 % (0-3) Basophils (%) (Auto) 1 % (0-3) Neutrophils # (Auto) 3.9 x10^3uL (1.8-7.7) Lymphocytes # (Auto) 2.6 x10^3/uL (1.0-4.8) Monocytes # (Auto) 0.5 x10^3/uL (0.0-1.1) Eosinophils # (Auto) 0.3 x10^3/uL (0.0-0.7) Basophils # (Auto) 0.1 x10^3/uL (0.0-0.2) Test 02/01/17 07:38 02/01/17 10:24 Glucose (Fingerstick) 52 mg/dL (70-99) 141 mg/dL (70-99) Medications Current Medications Zolpidem Tartrate (Ambien) 5 mg PRN QHS PRN PO INSOMNIA, MAY REPEAT IN 1HR; Start 01/29/17 at 18:45 Oxycodone HCl (Roxicodone) 5 mg PRN Q3HRS PRN PO BREAKTHROUGH PAIN Last administered on 02/01/17t 11:51; Start 01/29/17 at 18:45 Acetaminophen (Tylenol) 650 mg PRN Q6HRS PRN PO Headaches, Temp > 101.5F; Start 01/29/17 at 18:45 Ibuprofen (Motrin) 400 mg PRN Q6HRS PRN PO MILD PAIN; Start 01/29/17 at 18:45 Docusate Sodium (Colace) 100 mg BID PO Last administered on 02/01/17 08:42; Start 01/29/17 at 21:00 Magnesium Hydroxide (Milk Of Magnesia) 2,400 mg PRN Q12HR PRN PO CONSTIPATION; Start 01/29/17 at 18:45 Lactulose 20 gm PRN Q12HR PRN PO CONSTIPATION; Start 01/29/17 at 18:45 Bisacodyl (Dulcolax Supp) 10 mg PRN DAILY PRN [place] CONSTIPATION; Start 01/29/17 at 18:45 Enoxaparin Sodium (Lovenox 40mg Syringe) 40 mg Q12HR SQ Last administered on 21:09; Start 01/29/17 at 22:00; Stop 01/31/17 at 07:12; Status DC Alprazolam (Xanax) 0.25 mg QHS PRN PO ANXIETY / AGITATION; Start 01/29/17 at 18 :45 Carvedilol (Coreg) 12.5 mg BIDWMEALS PO Last administered on 01/29/17 21:51; Start 01/29/17 at 19:00; Stop 01/30/17 at 11:28; Status DC Cyclobenzaprine HCl (Flexeril) 10 mg BID PO Last administered on 02/01/17 08: 43; Start 01/29/17 at 21:00 Fluconazole (Diflucan) 100 mg DAILY PO Last administered on 02/01/17 08:43; Start 01/30/17 at 09:00 Furosemide (Lasix) 40 mg BID92 PO ; Start 01/30/17 at 09:00; Stop 01/30/17 at 09 :00; Status DC Hydralazine HCl (Apresoline) 25 mg BID PO Last administered on 02/01/17 08:43 ; Start 01/29/17 at 21:00 Acetaminophen/ Hydrocodone Bitart (Lortab 5/325) 1 tab PRN Q6HRS PRN PO MILD PAIN Last administered on 01/29/17 22:31; Start 01/29/17 at 18:45 Lisinopril (Prinivil) 40 mg DAILY PO Last administered on 02/01/17 08:43; Start 01/30/17 at 09:00 Oxycodone/ Acetaminophen (Percocet 10/325) 1 tab PRN Q6HRS PRN PO MODERATE- SEVERE PAIN Last administered on 01/31/17 00:58; Start 01/29/17 at 18:45 Tramadol HCl (Ultram) 100 mg BID PO Last administered on 01/29/17 21:50; Start 01/29/17 at 21:00; Stop 01/30/17 at 11:51; Status DC Vitamin D (Vitamin D3) 5,000 unit DAILY PO Last administered on 02/01/17 08:43 ; Start 01/30/17 at 09:00 Gabapentin (Neurontin) 300 mg PRN DAILY PRN PO NERVE PAIN Last administered on 02/01/17 11:51; Start 01/29/17 at 21:00 Glimepiride (Amaryl) 4 mg BIDWMEALS PO Last administered on 02/01/17 08:43; Start 01/30/17 at 09:00 Insulin Detemir (Levemir) 40 units QHS SQ Last administered on 01/29/17 22:01 ; Start 01/29/17 at 21:00; Stop 01/30/17 at 11:51; Status DC Insulin Aspart (NovoLOG) 50 units TIDAC SQ Last administered on 01/29/17 22:00 ; Start 01/29/17 at 19:00; Stop 01/30/17 at 11:51; Status DC Non-Formulary Medication 1.2 mg DAILY SQ ; Start 01/30/17 at 09:00; Stop at 09:00; Status DC Pantoprazole Sodium (Protonix) 40 mg DAILYAC PO Last administered on 02/01/17 09:43; Start 01/30/17 at 07:30 Potassium Chloride (Klor-Con) 10 meq DAILYWBKFT PO Last administered on 08:42; Start 01/30/17 at 08:00 Insulin Aspart (NovoLOG) 0-9 UNITS TIDWMEALS SQ Last administered on 01/31/17 13:23; Start 01/30/17 at 08:00 Dextrose (Dextrose 50%-Water Syringe) 12.5 gm PRN Q15MIN PRN IV SEE COMMENTS; Start 01/29/17 at 18:45 Furosemide (Lasix) 40 mg 1X ONCE IVP Last administered on 01/29/17 21:52; Start 01/29/17 at 21:00; Stop 01/29/17 at 21:01; Status DC Furosemide (Lasix) 40 mg BID92 IVP Last administered on 01/30/17 11:01; Start 01/30/17 at 09:00; Stop 01/30/17 at 11:28; Status DC Lidocaine HCl (Xylocaine-Mpf 1% Vial) 2 ml STK-MED ONCE .ROUTE ; Start 01/29/17 at 20:37; Stop 01/29/17 at 20:38; Status DC Dextrose 250 ml @ 1,000 mls/hr 1X ONCE IV ; Start 01/30/17 at 07:45; Stop at 07:59; Status DC Glucose (Insta-Glucose) 15 gm PRN Q15MIN PRN PO LOW BLOOD SUGAR Last administered on 01/30/17 07:55; Start 01/30/17 at 08:00 Glucose (Insta-Glucose) 15 gm STK-MED ONCE .ROUTE ; Start 01/30/17 at 07:52; Stop 01/30/17 at 07:53; Status DC Lidocaine HCl (Xylocaine-Mpf 1% Vial) 2 ml STK-MED ONCE .ROUTE ; Start 01/29/17 at 21:00; Stop 01/30/17 at 09:01; Status DC Furosemide (Lasix) 40 mg DAILY IVP Last administered on 02/01/17 08:45; Start 01/31/17 at 09:00 Aspirin (Ecotrin) 81 mg DAILYWBKFT PO Last administered on 02/01/17 08:42; Start 01/30/17 at 12:30 Insulin Detemir (Levemir) 25 units QHS SQ ; Start 01/30/17 at 21:00 Gabapentin (Neurontin) 400 mg BID PO ; Start 01/31/17 at 09:00 Gabapentin (Neurontin) 100 mg 1X ONCE PO Last administered on 01/31/17 01:56 ; Start 01/31/17 at 02:00; Stop 01/31/17 at 02:01; Status DC Enoxaparin Sodium (Lovenox 40mg Syringe) 40 mg QHS SQ Last administered on 01/31t 20:37; Start 01/31/17 at 21:00 Active Scripts Active Xanax (Alprazolam) 0.25 Mg Tablet 0.25 Mg PO QHS PRN Oxycodone-Acetaminophen 10-325 (Oxycodone Hcl/Acetaminophen) 1 Each Tablet 1 Tab PO PRN Q6HRS PRN Hydralazine Hcl 25 Mg Tablet 25 Mg PO BID Carvedilol 12.5 Mg Tablet 12.5 Mg PO BIDWMEALS Fluconazole 100 Mg Tablet 1 Tab PO DAILY Lasix (Furosemide) 40 Mg Tablet 40 Mg PO BID Reported Lisinopril 40 Mg Tablet 1 Tab PO DAILY Humalog (Insulin Lispro) 100 Unit/1 Ml Vial 50 Unit SQ TID Lortab 5-325 mg Tablet (Hydrocodone/Acetaminophen) 1 Each Tablet 1 Tab PO PRN Q6HRS PRN Levemir (Insulin Detemir) 100 Unit/1 Ml Vial 40 Unit SQ HS Victoza 3-Devon (Liraglutide) 0.6 Mg/0.1 Ml Pen.injctr 1.2 Mg SQ DAILY Gabapentin 300 Mg Capsule 1 Cap PO DAILY PRN Vitamin D3 (Cholecalciferol (Vitamin D3)) 5,000 Unit Tablet 1 Tab PO DAILY Glimepiride 4 Mg Tablet 1 Tab PO BID Tramadol Hcl 50 Mg Tablet 2 Tab PO BID Cyclobenzaprine Hcl 10 Mg Tablet 1 Tab PO BID Klor-Con 10 (Potassium Chloride) 10 Meq Tablet.er 1 Tab PO DAILY Omeprazole 20 Mg Capsule. 1 Cap PO DAILY Vitals/I & O Vital Sign - Last 24 Hours 01/31/17 01/31/17 01/31/17 01/31/17 14:19 19:39 20:00 20:36 Temp 98.6 97.9 98.6 97.9 Pulse 75 70 70 Resp 20 18 B/P (MAP) 148/72 (97) 152/70 (97) 152/70 Pulse Ox 95 98 O2 Delivery Room Air Room Air Room Air 01/31/17 02/01/17 02/01/17 02/01/17 23:23 03:05 07:37 08:00 Temp 98.2 98.0 97.6 98.2 98.0 97.6 Pulse 66 79 67 Resp 17 18 19 B/P (MAP) 133/62 (85) 153/76 (101) 142/71 (94) Pulse Ox 97 93 94 O2 Delivery Room Air Room Air Room Air Room Air 02/01/17 02/01/17 02/01/17 02/01/17 08:43 08:43 10:22 11:51 Temp 98.0 98.0 Pulse 67 67 80 Resp 18 B/P (MAP) 142/71 142/71 122/56 (78) Pulse Ox 95 O2 Delivery Room Air Room Air 02/01/17 13:02 O2 Delivery Room Air Intake and Output 01/31/17 01/31/17 02/01/17 15:00 23:00 07:00 Intake Total 300 ml 650 ml 150 ml Output Total 150 ml Balance 300 ml 650 ml 0 ml DRAKE DURÁN K III DO February 01, 2017 13:12
[2017-02-01] MEDS ORDERED: LIDOCAINE 1% / SOD BICARB 8.4% 20 ML VIAL. IJ ONE (13:30)
[2017-02-01] MEDS ORDERED: methylPREDNISolone ACETATE 40 MG/ML VIAL. IM ONE (13:30)
--- NOTE | 2017-02-01 13:41 | PDOC2 ---
CONSULT Date of Consult Date of Consult DATE: 02/01/17 TIME: 13:37 Reason for Consult Reason for Consult: Right shoulder pain Identification/Chief Complaint Chief Complaint Right shoulder pain Source Source: Chart review, Patient History of Present Illness Reason for Visit: This 66-year-old woman is here in the hospital for other reasons including CHF exacerbation. She has noted shoulder pain, worse in the last few weeks, and worse with lifting or reaching. It hurts to sleep on that side. Past Medical History Cardiovascular: CHF, HTN CENTRAL NERVOUS SYSTEM: Periperal neuropathy GI: GERD Heme/Onc: No pertinent hx Hepatobiliary: No pertinent hx Psych: No pertinent hx Musculoskeletal: Osteoarthritis Rheumatologic: No pertinent hx Infectious disease: No pertinent hx Renal/: Chronic renal insuff Endocrine: Diabetes, Other Past Surgical History Past Surgical History: Appendectomy, Cholecystectomy, , Hysterectomy, Colectomy Family History Family History: Cancer Social History No ALCOHOL: none Drugs: None Lives: with Family Domestic Violence: Neg Current Medications Current Medications Current Medications Zolpidem Tartrate (Ambien) 5 mg PRN QHS PRN PO INSOMNIA, MAY REPEAT IN 1HR; Start 01/29/17 at 18:45 Oxycodone HCl (Roxicodone) 5 mg PRN Q3HRS PRN PO BREAKTHROUGH PAIN Last administered on 02/01/17t 11:51; Start 01/29/17 at 18:45 Acetaminophen (Tylenol) 650 mg PRN Q6HRS PRN PO Headaches, Temp > 101.5F; Start 01/29/17 at 18:45 Ibuprofen (Motrin) 400 mg PRN Q6HRS PRN PO MILD PAIN; Start 01/29/17 at 18:45 Docusate Sodium (Colace) 100 mg BID PO Last administered on 02/01/17t 08:42; Start 01/29/17 at 21:00 Magnesium Hydroxide (Milk Of Magnesia) 2,400 mg PRN Q12HR PRN PO CONSTIPATION; Start 01/29/17 at 18:45 Lactulose 20 gm PRN Q12HR PRN PO CONSTIPATION; Start 01/29/17 at 18:45 Bisacodyl (Dulcolax Supp) 10 mg PRN DAILY PRN [place] CONSTIPATION; Start 01/29/17 at 18:45 Enoxaparin Sodium (Lovenox 40mg Syringe) 40 mg Q12HR SQ Last administered on 21:09; Start 01/29/17 at 22:00; Stop 01/31/17 at 07:12; Status DC Alprazolam (Xanax) 0.25 mg QHS PRN PO ANXIETY / AGITATION; Start 01/29/17 at 18 :45 Carvedilol (Coreg) 12.5 mg BIDWMEALS PO Last administered on 01/29/17 21:51; Start 01/29/17 at 19:00; Stop 01/30/17 at 11:28; Status DC Cyclobenzaprine HCl (Flexeril) 10 mg BID PO Last administered on 02/01/17 08: 43; Start 01/29/17 at 21:00 Fluconazole (Diflucan) 100 mg DAILY PO Last administered on 02/01/17 08:43; Start 01/30/17 at 09:00 Furosemide (Lasix) 40 mg BID92 PO ; Start 01/30/17 at 09:00; Stop 01/30/17 at 09 :00; Status DC Hydralazine HCl (Apresoline) 25 mg BID PO Last administered on 02/01/17 08:43 ; Start 01/29/17 at 21:00 Acetaminophen/ Hydrocodone Bitart (Lortab 5/325) 1 tab PRN Q6HRS PRN PO MILD PAIN Last administered on 01/29/17 22:31; Start 01/29/17 at 18:45 Lisinopril (Prinivil) 40 mg DAILY PO Last administered on 02/01/17 08:43; Start 01/30/17 at 09:00 Oxycodone/ Acetaminophen (Percocet 10/325) 1 tab PRN Q6HRS PRN PO MODERATE- SEVERE PAIN Last administered on 01/31/17 00:58; Start 01/29/17 at 18:45 Tramadol HCl (Ultram) 100 mg BID PO Last administered on 01/29/17 21:50; Start 01/29/17 at 21:00; Stop 01/30/17 at 11:51; Status DC Vitamin D (Vitamin D3) 5,000 unit DAILY PO Last administered on 02/01/17 08:43 ; Start 01/30/17 at 09:00 Gabapentin (Neurontin) 300 mg PRN DAILY PRN PO NERVE PAIN Last administered on 02/01/17 11:51; Start 01/29/17 at 21:00 Glimepiride (Amaryl) 4 mg BIDWMEALS PO Last administered on 02/01/17 08:43; Start 01/30/17 at 09:00 Insulin Detemir (Levemir) 40 units QHS SQ Last administered on 01/29/17 22:01 ; Start 01/29/17 at 21:00; Stop 01/30/17 at 11:51; Status DC Insulin Aspart (NovoLOG) 50 units TIDAC SQ Last administered on 01/29/17 22:00 ; Start 01/29/17 at 19:00; Stop 01/30/17 at 11:51; Status DC Non-Formulary Medication 1.2 mg DAILY SQ ; Start 01/30/17 at 09:00; Stop at 09:00; Status DC Pantoprazole Sodium (Protonix) 40 mg DAILYAC PO Last administered on 02/01/17 09:43; Start 01/30/17 at 07:30 Potassium Chloride (Klor-Con) 10 meq DAILYWBKFT PO Last administered on 08:42; Start 01/30/17 at 08:00 Insulin Aspart (NovoLOG) 0-9 UNITS TIDWMEALS SQ Last administered on 01/31/17 13:23; Start 01/30/17 at 08:00 Dextrose (Dextrose 50%-Water Syringe) 12.5 gm PRN Q15MIN PRN IV SEE COMMENTS; Start 01/29/17 at 18:45 Furosemide (Lasix) 40 mg 1X ONCE IVP Last administered on 01/29/17 21:52; Start 01/29/17 at 21:00; Stop 01/29/17 at 21:01; Status DC Furosemide (Lasix) 40 mg BID92 IVP Last administered on 01/30/17 11:01; Start 01/30/17 at 09:00; Stop 01/30/17 at 11:28; Status DC Lidocaine HCl (Xylocaine-Mpf 1% Vial) 2 ml STK-MED ONCE .ROUTE ; Start 01/29/17 at 20:37; Stop 01/29/17 at 20:38; Status DC Dextrose 250 ml @ 1,000 mls/hr 1X ONCE IV ; Start 01/30/17 at 07:45; Stop at 07:59; Status DC Glucose (Insta-Glucose) 15 gm PRN Q15MIN PRN PO LOW BLOOD SUGAR Last administered on 01/30/17 07:55; Start 01/30/17 at 08:00 Glucose (Insta-Glucose) 15 gm STK-MED ONCE .ROUTE ; Start 01/30/17 at 07:52; Stop 01/30/17 at 07:53; Status DC Lidocaine HCl (Xylocaine-Mpf 1% Vial) 2 ml STK-MED ONCE .ROUTE ; Start 01/29/17 at 21:00; Stop 01/30/17 at 09:01; Status DC Furosemide (Lasix) 40 mg DAILY IVP Last administered on 02/01/17 08:45; Start 01/31/17 at 09:00 Aspirin (Ecotrin) 81 mg DAILYWBKFT PO Last administered on 02/01/17 08:42; Start 01/30/17 at 12:30 Insulin Detemir (Levemir) 25 units QHS SQ ; Start 01/30/17 at 21:00 Gabapentin (Neurontin) 400 mg BID PO ; Start 01/31/17 at 09:00 Gabapentin (Neurontin) 100 mg 1X ONCE PO Last administered on 01/31/17 01:56 ; Start 01/31/17 at 02:00; Stop 01/31/17 at 02:01; Status DC Enoxaparin Sodium (Lovenox 40mg Syringe) 40 mg QHS SQ Last administered on 01/31 20:37; Start 01/31/17 at 21:00 Methylprednisolone Acetate (DEPO-Medrol 40MG VIAL) 40 mg 1X ONCE IM ; Start at 13:30; Stop 02/01/17 at 13:31; Status DC Lidocaine/Sodium Bicarbonate (Buffered Lidocaine 1%) 20 ml 1X ONCE IJ ; Start 02/01/17 at 13:30; Stop 02/01/17 at 13:31; Status DC Active Scripts Active Xanax (Alprazolam) 0.25 Mg Tablet 0.25 Mg PO QHS PRN Oxycodone-Acetaminophen 10-325 (Oxycodone Hcl/Acetaminophen) 1 Each Tablet 1 Tab PO PRN Q6HRS PRN Hydralazine Hcl 25 Mg Tablet 25 Mg PO BID Carvedilol 12.5 Mg Tablet 12.5 Mg PO BIDWMEALS Fluconazole 100 Mg Tablet 1 Tab PO DAILY Lasix (Furosemide) 40 Mg Tablet 40 Mg PO BID Reported Lisinopril 40 Mg Tablet 1 Tab PO DAILY Humalog (Insulin Lispro) 100 Unit/1 Ml Vial 50 Unit SQ TID Lortab 5-325 mg Tablet (Hydrocodone/Acetaminophen) 1 Each Tablet 1 Tab PO PRN Q6HRS PRN Levemir (Insulin Detemir) 100 Unit/1 Ml Vial 40 Unit SQ HS Victoza 3-Devon (Liraglutide) 0.6 Mg/0.1 Ml Pen.injctr 1.2 Mg SQ DAILY Gabapentin 300 Mg Capsule 1 Cap PO DAILY PRN Vitamin D3 (Cholecalciferol (Vitamin D3)) 5,000 Unit Tablet 1 Tab PO DAILY Glimepiride 4 Mg Tablet 1 Tab PO BID Tramadol Hcl 50 Mg Tablet 2 Tab PO BID Cyclobenzaprine Hcl 10 Mg Tablet 1 Tab PO BID Klor-Con 10 (Potassium Chloride) 10 Meq Tablet.er 1 Tab PO DAILY Omeprazole 20 Mg Capsule.dr 1 Cap PO DAILY Allergies Allergies: Coded Allergies: No Known Drug Allergies (Unverified , 05/01/16) Physical Exam General: Alert, Cooperative HEENT: Atraumatic Heart: Regular rate Abdomen: Soft Extremities: Normal pulses, Other (edema in the lower extremities) Skin: Other (skin over the right shoulder is normal.) Neuro: Normal speech, Sensation intact, Other (right shoulder shows normal pulses and sensation, normal motor strength in the radial ulnar and median nerves distally.) Psych/Mental Status: Mood NL MUSCULOSKELETAL: Abnormal exam of right (shoulder examination shows classic findings of impingement syndrome. She has tenderness at the supraspinatus tendon insertion on the greater tuberosity, and over the subacromial bursa. Mild tenderness at the acromion and acromioclavicular joint. Her gross alignment of the shoulder shows rounded shoulder posture, but otherwise normal alignment. Strength of this supraspinatus is 4+/ 5, limited slightly by pain. Infraspinatus strength is 5/5. Slight crepitus with range of motion consistent with impingement syndrome and bursitis. She has positive Neer's, Rosenberg, and Dell's impingement test. Painful arc and minimal drop arm sign mostly related to pain not actual weakness.) Vitals VITALS Vital Signs Date Time Temp Pulse Resp B/P (MAP) Pulse Ox O2 Delivery O2 Flow Rate FiO2 02/01/17 13:02 Room Air 02/01/17 10:22 98.0 80 18 122/56 (78) 95 98.0 Labs Labs Laboratory Tests Test 01/30/17 16:21 01/30/17 21:28 01/31/17 00:49 01/31/17 05:00 Glucose (Fingerstick) 140 mg/dL (70-99) 165 mg/dL (70-99) 166 mg/dL (70-99) Sodium Level 142 mmol/L (136-145) Potassium Level 4.7 mmol/L (3.5-5.1) Chloride Level 109 mmol/L (98-107) Carbon Dioxide Level 22 mmol/L (21-32) Anion Gap 11 (6-14) Blood Urea Nitrogen 30 mg/dL (7-20) Creatinine 2.5 mg/dL (0.6-1.0) Estimated GFR (Cockcroft-Gault) 19.2 BUN/Creatinine Ratio 12 (6-20) Glucose Level 170 mg/dL (70-99) Calcium Level 8.1 mg/dL (8.5-10.1) Phosphorus Level 3.8 mg/dL (2.6-4.7) Magnesium Level 1.9 mg/dL (1.8-2.4) Total Bilirubin 0.4 mg/dL (0.2-1.0) Aspartate Amino Transf (AST/SGOT) 13 U/L (15-37) Alanine Aminotransferase (ALT/SGPT) 13 U/L (14-59) Alkaline Phosphatase 209 U/L (46-116) Total Protein 5.4 g/dL (6.4-8.2) Albumin 2.6 g/dL (3.4-5.0) Albumin/Globulin Ratio 0.9 (1.0-1.7) Test 01/31/17 07:35 01/31/17 10:30 01/31/17 16:46 01/31/17 20:35 Glucose (Fingerstick) 161 mg/dL (70-99) 193 mg/dL (70-99) 126 mg/dL (70-99) 98 mg/dL (70-99) Test 02/01/17 03:30 02/01/17 04:30 02/01/17 07:38 02/01/17 10:24 Sodium Level 145 mmol/L (136-145) Potassium Level 4.6 mmol/L (3.5-5.1) Chloride Level 112 mmol/L (98-107) Carbon Dioxide Level 24 mmol/L (21-32) Anion Gap 9 (6-14) Blood Urea Nitrogen 31 mg/dL (7-20) Creatinine 2.5 mg/dL (0.6-1.0) Estimated GFR (Cockcroft-Gault) 19.2 Glucose Level 72 mg/dL (70-99) Calcium Level 8.0 mg/dL (8.5-10.1) White Blood Count 7.3 x10^3/uL (4.0-11.0) Red Blood Count 3.51 x10^6/uL (3.50-5.40) Hemoglobin 9.9 g/dL (12.0-15.5) Hematocrit 31.1 % (36.0-47.0) Mean Corpuscular Volume 89 fL (79-100) Mean Corpuscular Hemoglobin 28 pg (25-35) Mean Corpuscular Hemoglobin Concent 32 g/dL (31-37) Red Cell Distribution Width 16.2 % (11.5-14.5) Platelet Count 145 x10^3/uL (140-400) Neutrophils (%) (Auto) 54 % (31-73) Lymphocytes (%) (Auto) 35 % (24-48) Monocytes (%) (Auto) 7 % (0-9) Eosinophils (%) (Auto) 4 % (0-3) Basophils (%) (Auto) 1 % (0-3) Neutrophils # (Auto) 3.9 x10^3uL (1.8-7.7) Lymphocytes # (Auto) 2.6 x10^3/uL (1.0-4.8) Monocytes # (Auto) 0.5 x10^3/uL (0.0-1.1) Eosinophils # (Auto) 0.3 x10^3/uL (0.0-0.7) Basophils # (Auto) 0.1 x10^3/uL (0.0-0.2) Glucose (Fingerstick) 52 mg/dL (70-99) 141 mg/dL (70-99) Laboratory Tests Test 01/31/17 16:46 01/31/17 20:35 02/01/17 03:30 02/01/17 04:30 Glucose (Fingerstick) 126 mg/dL (70-99) 98 mg/dL (70-99) Sodium Level 145 mmol/L (136-145) Potassium Level 4.6 mmol/L (3.5-5.1) Chloride Level 112 mmol/L (98-107) Carbon Dioxide Level 24 mmol/L (21-32) Anion Gap 9 (6-14) Blood Urea Nitrogen 31 mg/dL (7-20) Creatinine 2.5 mg/dL (0.6-1.0) Estimated GFR (Cockcroft-Gault) 19.2 Glucose Level 72 mg/dL (70-99) Calcium Level 8.0 mg/dL (8.5-10.1) White Blood Count 7.3 x10^3/uL (4.0-11.0) Red Blood Count 3.51 x10^6/uL (3.50-5.40) Hemoglobin 9.9 g/dL (12.0-15.5) Hematocrit 31.1 % (36.0-47.0) Mean Corpuscular Volume 89 fL (79-100) Mean Corpuscular Hemoglobin 28 pg (25-35) Mean Corpuscular Hemoglobin Concent 32 g/dL (31-37) Red Cell Distribution Width 16.2 % (11.5-14.5) Platelet Count 145 x10^3/uL (140-400) Neutrophils (%) (Auto) 54 % (31-73) Lymphocytes (%) (Auto) 35 % (24-48) Monocytes (%) (Auto) 7 % (0-9) Eosinophils (%) (Auto) 4 % (0-3) Basophils (%) (Auto) 1 % (0-3) Neutrophils # (Auto) 3.9 x10^3uL (1.8-7.7) Lymphocytes # (Auto) 2.6 x10^3/uL (1.0-4.8) Monocytes # (Auto) 0.5 x10^3/uL (0.0-1.1) Eosinophils # (Auto) 0.3 x10^3/uL (0.0-0.7) Basophils # (Auto) 0.1 x10^3/uL (0.0-0.2) Test 02/01/17 07:38 02/01/17 10:24 Glucose (Fingerstick) 52 mg/dL (70-99) 141 mg/dL (70-99) Images Images I had ordered a shoulder x-ray previously but the patient canceled it due to the cost. I did review a chest x-ray which shows minimal view of the shoulder and no significant abnormal findings seen on limited view. Assessment/Plan Assessment/Plan She has classic findings of impingement syndrome and rotator cuff tendinitis. Even if she had a small rotator cuff tear I would recommend initial nonoperative treatment with a corticosteroid injection and physical therapy. She doesn't want formal physical therapy for the shoulder due to the cost. I will try to get her a Thera-Band, and a home exercise program. She was agreeable to the corticosteroid injection today. Medications ordered. NIESHA KIRKLAND MD February 01, 2017 13:41
[2017-02-01 14:40] VITALS: BP 160/83
[2017-02-01 19:10] VITALS: BP 189/88
[2017-02-01] MEDS: oxyCODONE/APAP 10/325 1 TAB TABLET PO PRN (21:25)
[2017-02-01] MEDS: ENOXAPARIN 40 MG/0.4 ML SYRINGE. SQ SCH (21:28)
[2017-02-01] MEDS: INSULIN DETEMIR 300 UNITS/3 ML INSULN.PEN. SQ SCH (21:35)
[2017-02-01 23:10] VITALS: BP 189/98
[2017-02-01] MEDS ORDERED: LABETALOL 20 MG/4 ML DISP.SYRIN. IVP PRN (23:30)
[2017-02-02 03:15] VITALS: BP 135/112
[2017-02-02 04:20] LABS: BASO % 1 % (0-3); EOS % 0 % (0-3); HEMATOCRIT 34.3 % (36.0-47.0); HEMOGLOBIN 10.9 g/dL (12.0-15.5); LYMPH # 0.5 x10^3/uL (1.0-4.8); LYMPH % 11 % (24-48); MEAN CORPUSCULAR HEMOGLOBIN 28 pg (25-35); MEAN CORPUSCULAR HGB CONC 32 g/dL (31-37); MEAN CORPUSCULAR VOLUME 89 fL (79-100); MONO % 1 % (0-9); NEUT % 88 % (31-73); PLATELET COUNT 157 x10^3/uL (140-400); RED BLOOD COUNT 3.87 x10^6/uL (3.50-5.40); RED CELL DISTRIBUTION WIDTH 16.7 % (11.5-14.5); WHITE BLOOD COUNT 4.3 x10^3/uL (4.0-11.0)
[2017-02-02 04:44] LABS: CALCIUM 8.6 mg/dL (8.5-10.1); CREATININE 2.7 mg/dL (0.6-1.0); GFR 17.5; POTASSIUM 5.3 mmol/L (3.5-5.1)
[2017-02-02 07:50] VITALS: BP 141/75
[2017-02-02] MEDS: POTASSIUM CHLORIDE 10 MEQ TABLET.ER. PO SCH (08:00)
[2017-02-02] MEDS: CYCLOBENZAPRINE 10 MG TABLET. PO SCH ×2 (08:10→20:54)
[2017-02-02] MEDS: PANTOPRAZOLE 40 MG TABLET.DR. PO SCH (08:13)
[2017-02-02] MEDS: GABAPENTIN 400 MG CAPSULE. PO SCH ×2 (08:13→20:48)
[2017-02-02] MEDS: CHOLECALCIFEROL (VITAMIN D3) 5,000 UNIT CAPSULE PO SCH (08:13)
[2017-02-02] MEDS: INSULIN ASPART 300 UNITS/3 ML INSULN.PEN SQ SCH ×5 (08:18→17:29)
[2017-02-02] MEDS: LISINOPRIL 40 MG TABLET. PO SCH (08:21)
[2017-02-02] MEDS: GLIMEPIRIDE 2 MG TABLET. PO SCH ×2 (08:21→17:28)
[2017-02-02] MEDS: FLUCONAZOLE 100 MG TABLET. PO SCH (08:21)
[2017-02-02] MEDS: FUROSEMIDE 40 MG/4 ML VIAL. IVP SCH (08:21)
[2017-02-02] MEDS: DOCUSATE SODIUM 100 MG CAPSULE. PO SCH (08:22)
[2017-02-02] MEDS: hydrALAZINE 25 MG TABLET PO SCH ×2 (08:22→20:48)
[2017-02-02] MEDS: ASPIRIN ENTERIC COATED 81 MG TABLET.DR. PO SCH (08:23)
[2017-02-02] MEDS ORDERED: INSULIN ASPART 100 UNIT/ML 10ML VIAL. SQ ONE (08:45)
[2017-02-02] MEDS ORDERED: INSULIN ASPART 300 UNITS/3 ML INSULN.PEN SQ ONE (08:45)
[2017-02-02 10:42] LABS: ANISOCYTOSIS SLIGHT; OVALOCYTES PRESENT; PLT ESTIMATE ADEQUATE (ADEQUATE)
[2017-02-02 10:59] VITALS: BP 169/91
--- NOTE | 2017-02-02 11:13 | PDOC ---
PROGRESS NOTES Chief Complaint Chief Complaint 1. Acute-on chronic congestive heart failure, likely systolic versus diastolic or combined. 2. Old lymphedema. 3. Obesity. 4. Diabetes type 2. Unknown Hgb A1c. 6. Chronic kidney disease. 7. Anemia of chronic disease. 8. Limited mobility, wheelchair-bound. 9. Chest heaviness. 10. Diarrhea x 2 weeks, hx subtotal colectomy (family hx Familial polyposis?) History of Present Illness History of Present Illness Legs actually better than on admission No CP Still having watery diarrhea C diff is neg Due C scope, sounds like had almost subtotal or partial colectomy, bec of family hx polyps -s he claims PLAN: Imodium q 2 prn consult GI re bowel issues (anyways pt still on IV lasix) BMP hollie while on IV diuretic PT - ok for HH Vitals Vitals Vital Signs Date Time Temp Pulse Resp B/P (MAP) Pulse Ox O2 Delivery O2 Flow Rate FiO2 02/02/17 10:59 97.1 74 19 169/91 (117) 96 Room Air 97.1 Physical Exam General: Alert, Cooperative Heart: Regular rate Lungs: Clear, Other (no wheezing) Abdomen: Soft Extremities: Normal pulses, Other (edema in the lower extremities) Skin: Other (skin over the right shoulder is normal.) Labs LABS Laboratory Tests Test 02/01/17 17:15 02/01/17 20:36 02/02/17 03:45 02/02/17 07:53 Glucose (Fingerstick) 168 mg/dL (70-99) 316 mg/dL (70-99) 366 mg/dL (70-99) White Blood Count 4.3 x10^3/uL (4.0-11.0) Red Blood Count 3.87 x10^6/uL (3.50-5.40) Hemoglobin 10.9 g/dL (12.0-15.5) Hematocrit 34.3 % (36.0-47.0) Mean Corpuscular Volume 89 fL (79-100) Mean Corpuscular Hemoglobin 28 pg (25-35) Mean Corpuscular Hemoglobin Concent 32 g/dL (31-37) Red Cell Distribution Width 16.7 % (11.5-14.5) Platelet Count 157 x10^3/uL (140-400) Neutrophils (%) (Auto) 88 % (31-73) Lymphocytes (%) (Auto) 11 % (24-48) Monocytes (%) (Auto) 1 % (0-9) Eosinophils (%) (Auto) 0 % (0-3) Basophils (%) (Auto) 1 % (0-3) Neutrophils # (Auto) 3.8 x10^3uL (1.8-7.7) Lymphocytes # (Auto) 0.5 x10^3/uL (1.0-4.8) Monocytes # (Auto) 0.0 x10^3/uL (0.0-1.1) Eosinophils # (Auto) 0.0 x10^3/uL (0.0-0.7) Basophils # (Auto) 0.0 x10^3/uL (0.0-0.2) Segmented Neutrophils % 82 % (35-66) Band Neutrophils % 10 % (0-9) Lymphocytes % 7 % (24-48) Monocytes % 1 % (0-10) Platelet Estimate Adequate (ADEQUATE) Large Platelets Few Anisocytosis Slight Ovalocytes Present Sodium Level 138 mmol/L (136-145) Potassium Level 5.3 mmol/L (3.5-5.1) Chloride Level 106 mmol/L (98-107) Carbon Dioxide Level 21 mmol/L (21-32) Anion Gap 11 (6-14) Blood Urea Nitrogen 33 mg/dL (7-20) Creatinine 2.7 mg/dL (0.6-1.0) Estimated GFR (Cockcroft-Gault) 17.5 Glucose Level 430 mg/dL (70-99) Calcium Level 8.6 mg/dL (8.5-10.1) Assessment and Plan Assessmemt and Plan diarrhea, no cp, soa, abd pain, emesis Problems: Comment Review of Relevant I have reviewed the following items kai (where applicable) has been applied. Labs Laboratory Tests Test 01/31/17 14:23 01/31/17 16:46 01/31/17 20:35 02/01/17 03:30 Clostridium difficile Toxin (PCR) Negative (Negative) Glucose (Fingerstick) 126 mg/dL (70-99) 98 mg/dL (70-99) Sodium Level 145 mmol/L (136-145) Potassium Level 4.6 mmol/L (3.5-5.1) Chloride Level 112 mmol/L (98-107) Carbon Dioxide Level 24 mmol/L (21-32) Anion Gap 9 (6-14) Blood Urea Nitrogen 31 mg/dL (7-20) Creatinine 2.5 mg/dL (0.6-1.0) Estimated GFR (Cockcroft-Gault) 19.2 Glucose Level 72 mg/dL (70-99) Calcium Level 8.0 mg/dL (8.5-10.1) Test 02/01/17 04:30 02/01/17 07:38 02/01/17 10:24 02/01/17 17:15 White Blood Count 7.3 x10^3/uL (4.0-11.0) Red Blood Count 3.51 x10^6/uL (3.50-5.40) Hemoglobin 9.9 g/dL (12.0-15.5) Hematocrit 31.1 % (36.0-47.0) Mean Corpuscular Volume 89 fL (79-100) Mean Corpuscular Hemoglobin 28 pg (25-35) Mean Corpuscular Hemoglobin Concent 32 g/dL (31-37) Red Cell Distribution Width 16.2 % (11.5-14.5) Platelet Count 145 x10^3/uL (140-400) Neutrophils (%) (Auto) 54 % (31-73) Lymphocytes (%) (Auto) 35 % (24-48) Monocytes (%) (Auto) 7 % (0-9) Eosinophils (%) (Auto) 4 % (0-3) Basophils (%) (Auto) 1 % (0-3) Neutrophils # (Auto) 3.9 x10^3uL (1.8-7.7) Lymphocytes # (Auto) 2.6 x10^3/uL (1.0-4.8) Monocytes # (Auto) 0.5 x10^3/uL (0.0-1.1) Eosinophils # (Auto) 0.3 x10^3/uL (0.0-0.7) Basophils # (Auto) 0.1 x10^3/uL (0.0-0.2) Glucose (Fingerstick) 52 mg/dL (70-99) 141 mg/dL (70-99) 168 mg/dL (70-99) Test 02/01/17 20:36 02/02/17 03:45 02/02/17 07:53 Glucose (Fingerstick) 316 mg/dL (70-99) 366 mg/dL (70-99) White Blood Count 4.3 x10^3/uL (4.0-11.0) Red Blood Count 3.87 x10^6/uL (3.50-5.40) Hemoglobin 10.9 g/dL (12.0-15.5) Hematocrit 34.3 % (36.0-47.0) Mean Corpuscular Volume 89 fL (79-100) Mean Corpuscular Hemoglobin 28 pg (25-35) Mean Corpuscular Hemoglobin Concent 32 g/dL (31-37) Red Cell Distribution Width 16.7 % (11.5-14.5) Platelet Count 157 x10^3/uL (140-400) Neutrophils (%) (Auto) 88 % (31-73) Lymphocytes (%) (Auto) 11 % (24-48) Monocytes (%) (Auto) 1 % (0-9) Eosinophils (%) (Auto) 0 % (0-3) Basophils (%) (Auto) 1 % (0-3) Neutrophils # (Auto) 3.8 x10^3uL (1.8-7.7) Lymphocytes # (Auto) 0.5 x10^3/uL (1.0-4.8) Monocytes # (Auto) 0.0 x10^3/uL (0.0-1.1) Eosinophils # (Auto) 0.0 x10^3/uL (0.0-0.7) Basophils # (Auto) 0.0 x10^3/uL (0.0-0.2) Segmented Neutrophils % 82 % (35-66) Band Neutrophils % 10 % (0-9) Lymphocytes % 7 % (24-48) Monocytes % 1 % (0-10) Platelet Estimate Adequate (ADEQUATE) Large Platelets Few Anisocytosis Slight Ovalocytes Present Sodium Level 138 mmol/L (136-145) Potassium Level 5.3 mmol/L (3.5-5.1) Chloride Level 106 mmol/L (98-107) Carbon Dioxide Level 21 mmol/L (21-32) Anion Gap 11 (6-14) Blood Urea Nitrogen 33 mg/dL (7-20) Creatinine 2.7 mg/dL (0.6-1.0) Estimated GFR (Cockcroft-Gault) 17.5 Glucose Level 430 mg/dL (70-99) Calcium Level 8.6 mg/dL (8.5-10.1) Laboratory Tests Test 02/01/17 17:15 02/01/17 20:36 02/02/17 03:45 02/02/17 07:53 Glucose (Fingerstick) 168 mg/dL (70-99) 316 mg/dL (70-99) 366 mg/dL (70-99) White Blood Count 4.3 x10^3/uL (4.0-11.0) Red Blood Count 3.87 x10^6/uL (3.50-5.40) Hemoglobin 10.9 g/dL (12.0-15.5) Hematocrit 34.3 % (36.0-47.0) Mean Corpuscular Volume 89 fL (79-100) Mean Corpuscular Hemoglobin 28 pg (25-35) Mean Corpuscular Hemoglobin Concent 32 g/dL (31-37) Red Cell Distribution Width 16.7 % (11.5-14.5) Platelet Count 157 x10^3/uL (140-400) Neutrophils (%) (Auto) 88 % (31-73) Lymphocytes (%) (Auto) 11 % (24-48) Monocytes (%) (Auto) 1 % (0-9) Eosinophils (%) (Auto) 0 % (0-3) Basophils (%) (Auto) 1 % (0-3) Neutrophils # (Auto) 3.8 x10^3uL (1.8-7.7) Lymphocytes # (Auto) 0.5 x10^3/uL (1.0-4.8) Monocytes # (Auto) 0.0 x10^3/uL (0.0-1.1) Eosinophils # (Auto) 0.0 x10^3/uL (0.0-0.7) Basophils # (Auto) 0.0 x10^3/uL (0.0-0.2) Segmented Neutrophils % 82 % (35-66) Band Neutrophils % 10 % (0-9) Lymphocytes % 7 % (24-48) Monocytes % 1 % (0-10) Platelet Estimate Adequate (ADEQUATE) Large Platelets Few Anisocytosis Slight Ovalocytes Present Sodium Level 138 mmol/L (136-145) Potassium Level 5.3 mmol/L (3.5-5.1) Chloride Level 106 mmol/L (98-107) Carbon Dioxide Level 21 mmol/L (21-32) Anion Gap 11 (6-14) Blood Urea Nitrogen 33 mg/dL (7-20) Creatinine 2.7 mg/dL (0.6-1.0) Estimated GFR (Cockcroft-Gault) 17.5 Glucose Level 430 mg/dL (70-99) Calcium Level 8.6 mg/dL (8.5-10.1) Medications Current Medications Zolpidem Tartrate (Ambien) 5 mg PRN QHS PRN PO INSOMNIA, MAY REPEAT IN 1HR; Start 01/29/17 at 18:45 Oxycodone HCl (Roxicodone) 5 mg PRN Q3HRS PRN PO BREAKTHROUGH PAIN Last administered on 02/01/17 11:51; Start 01/29/17 at 18:45 Acetaminophen (Tylenol) 650 mg PRN Q6HRS PRN PO Headaches, Temp > 101.5F; Start 01/29/17 at 18:45 Ibuprofen (Motrin) 400 mg PRN Q6HRS PRN PO MILD PAIN; Start 01/29/17 at 18:45 Docusate Sodium (Colace) 100 mg BID PO Last administered on 02/01/17 08:42; Start 01/29/17 at 21:00; Stop 02/02/17 at 11:08; Status DC Magnesium Hydroxide (Milk Of Magnesia) 2,400 mg PRN Q12HR PRN PO CONSTIPATION; Start 01/29/17 at 18:45 Lactulose 20 gm PRN Q12HR PRN PO CONSTIPATION; Start 01/29/17 at 18:45 Bisacodyl (Dulcolax Supp) 10 mg PRN DAILY PRN MT CONSTIPATION; Start 01/29/17 at 18:45; Stop 02/02/17 at 11:08; Status DC Enoxaparin Sodium (Lovenox 40mg Syringe) 40 mg Q12HR SQ Last administered on 21:09; Start 01/29/17 at 22:00; Stop 01/31/17 at 07:12; Status DC Alprazolam (Xanax) 0.25 mg QHS PRN PO ANXIETY / AGITATION; Start 01/29/17 at 18 :45 Carvedilol (Coreg) 12.5 mg BIDWMEALS PO Last administered on 01/29/17 21:51; Start 01/29/17 at 19:00; Stop 01/30/17 at 11:28; Status DC Cyclobenzaprine HCl (Flexeril) 10 mg BID PO Last administered on 02/02/17 08: 10; Start 01/29/17 at 21:00 Fluconazole (Diflucan) 100 mg DAILY PO Last administered on 02/02/17 08:21; Start 01/30/17 at 09:00 Furosemide (Lasix) 40 mg BID92 PO ; Start 01/30/17 at 09:00; Stop 01/30/17 at 09 :00; Status DC Hydralazine HCl (Apresoline) 25 mg BID PO Last administered on 02/02/17 08:22 ; Start 01/29/17 at 21:00 Acetaminophen/ Hydrocodone Bitart (Lortab 5/325) 1 tab PRN Q6HRS PRN PO MILD PAIN Last administered on 01/29/17 22:31; Start 01/29/17 at 18:45 Lisinopril (Prinivil) 40 mg DAILY PO Last administered on 02/02/17 08:21; Start 01/30/17 at 09:00 Oxycodone/ Acetaminophen (Percocet 10/325) 1 tab PRN Q6HRS PRN PO MODERATE- SEVERE PAIN Last administered on 02/01/17 21:25; Start 01/29/17 at 18:45 Tramadol HCl (Ultram) 100 mg BID PO Last administered on 01/29/17 21:50; Start 01/29/17 at 21:00; Stop 01/30/17 at 11:51; Status DC Vitamin D (Vitamin D3) 5,000 unit DAILY PO Last administered on 02/02/17 08:13 ; Start 01/30/17 at 09:00 Gabapentin (Neurontin) 300 mg PRN DAILY PRN PO NERVE PAIN Last administered on 02/01/17 11:51; Start 01/29/17 at 21:00 Glimepiride (Amaryl) 4 mg BIDWMEALS PO Last administered on 02/02/17 08:21; Start 01/30/17 at 09:00 Insulin Detemir (Levemir) 40 units QHS SQ Last administered on 01/29/17 22:01 ; Start 01/29/17 at 21:00; Stop 01/30/17 at 11:51; Status DC Insulin Aspart (NovoLOG) 50 units TIDAC SQ Last administered on 01/29/17 22:00 ; Start 01/29/17 at 19:00; Stop 01/30/17 at 11:51; Status DC Non-Formulary Medication 1.2 mg DAILY SQ ; Start 01/30/17 at 09:00; Stop at 09:00; Status DC Pantoprazole Sodium (Protonix) 40 mg DAILYAC PO Last administered on 02/02/17 08:13; Start 01/30/17 at 07:30 Potassium Chloride (Klor-Con) 10 meq DAILYWBKFT PO Last administered on 08:42; Start 01/30/17 at 08:00 Insulin Aspart (NovoLOG) 0-9 UNITS TIDWMEALS SQ Last administered on 02/02/17 08:18; Start 01/30/17 at 08:00 Dextrose (Dextrose 50%-Water Syringe) 12.5 gm PRN Q15MIN PRN IV SEE COMMENTS; Start 01/29/17 at 18:45 Furosemide (Lasix) 40 mg 1X ONCE IVP Last administered on 01/29/17 21:52; Start 01/29/17 at 21:00; Stop 01/29/17 at 21:01; Status DC Furosemide (Lasix) 40 mg BID92 IVP Last administered on 01/30/17 11:01; Start 01/30/17 at 09:00; Stop 01/30/17 at 11:28; Status DC Lidocaine HCl (Xylocaine-Mpf 1% Vial) 2 ml STK-MED ONCE .ROUTE ; Start 01/29/17 at 20:37; Stop 01/29/17 at 20:38; Status DC Dextrose 250 ml @ 1,000 mls/hr 1X ONCE IV ; Start 01/30/17 at 07:45; Stop at 07:59; Status DC Glucose (Insta-Glucose) 15 gm PRN Q15MIN PRN PO LOW BLOOD SUGAR Last administered on 01/30/17 07:55; Start 01/30/17 at 08:00 Glucose (Insta-Glucose) 15 gm STK-MED ONCE .ROUTE ; Start 01/30/17 at 07:52; Stop 01/30/17 at 07:53; Status DC Lidocaine HCl (Xylocaine-Mpf 1% Vial) 2 ml STK-MED ONCE .ROUTE ; Start 01/29/17 at 21:00; Stop 01/30/17 at 09:01; Status DC Furosemide (Lasix) 40 mg DAILY IVP Last administered on 02/02/17 08:21; Start 01/31/17 at 09:00 Aspirin (Ecotrin) 81 mg DAILYWBKFT PO Last administered on 02/02/17 08:23; Start 01/30/17 at 12:30 Insulin Detemir (Levemir) 25 units QHS SQ Last administered on 02/01/17 21:35 ; Start 01/30/17 at 21:00 Gabapentin (Neurontin) 400 mg BID PO Last administered on 02/02/17 08:13; Start 01/31/17 at 09:00 Gabapentin (Neurontin) 100 mg 1X ONCE PO Last administered on 01/31/17 01:56 ; Start 01/31/17 at 02:00; Stop 01/31/17 at 02:01; Status DC Enoxaparin Sodium (Lovenox 40mg Syringe) 40 mg QHS SQ Last administered on 02/01 21:28; Start 01/31/17 at 21:00 Methylprednisolone Acetate (DEPO-Medrol 40MG VIAL) 40 mg 1X ONCE IM Last administered on 02/01/17 13:30; Start 02/01/17 at 13:30; Stop 02/01/17 at 13:31 ; Status DC Lidocaine/Sodium Bicarbonate (Buffered Lidocaine 1%) 20 ml 1X ONCE IJ Last administered on 02/01/17 13:30; Start 02/01/17 at 13:30; Stop 02/01/17 at 13:31 ; Status DC Labetalol HCl (Normodyne) 20 mg PRN Q2HR PRN IVP HYPERTENSION, SEE COMMENTS Last administered on 02/01/17 23:59; Start 02/01/17 at 23:30 Insulin Aspart (NovoLOG) 10 units TIDAC SQ Last administered on 02/02/17 08:43 ; Start 02/02/17 at 11:30 Insulin Aspart (NovoLOG VIAL) 15 unit 1X ONCE SQ ; Start 02/02/17 at 08:45; Stop 02/02/17 at 08:46; Status Cancel Insulin Aspart (NovoLOG) 15 units 1X ONCE SQ Last administered on 02/02/17 08 :42; Start 02/02/17 at 08:45; Stop 02/02/17 at 08:46; Status DC Loperamide HCl (Imodium) 2 mg PRN Q15MIN PRN PO DIARRHEA; Start 02/02/17 at 11: 15; Status UNV Active Scripts Active Xanax (Alprazolam) 0.25 Mg Tablet 0.25 Mg PO QHS PRN Oxycodone-Acetaminophen 10-325 (Oxycodone Hcl/Acetaminophen) 1 Each Tablet 1 Tab PO PRN Q6HRS PRN Hydralazine Hcl 25 Mg Tablet 25 Mg PO BID Carvedilol 12.5 Mg Tablet 12.5 Mg PO BIDWMEALS Fluconazole 100 Mg Tablet 1 Tab PO DAILY Lasix (Furosemide) 40 Mg Tablet 40 Mg PO BID Reported Lisinopril 40 Mg Tablet 1 Tab PO DAILY Humalog (Insulin Lispro) 100 Unit/1 Ml Vial 50 Unit SQ TID Lortab 5-325 mg Tablet (Hydrocodone/Acetaminophen) 1 Each Tablet 1 Tab PO PRN Q6HRS PRN Levemir (Insulin Detemir) 100 Unit/1 Ml Vial 40 Unit SQ HS Victoza 3-Devon (Liraglutide) 0.6 Mg/0.1 Ml Pen.injctr 1.2 Mg SQ DAILY Gabapentin 300 Mg Capsule 1 Cap PO DAILY PRN Vitamin D3 (Cholecalciferol (Vitamin D3)) 5,000 Unit Tablet 1 Tab PO DAILY Glimepiride 4 Mg Tablet 1 Tab PO BID Tramadol Hcl 50 Mg Tablet 2 Tab PO BID Cyclobenzaprine Hcl 10 Mg Tablet 1 Tab PO BID Klor-Con 10 (Potassium Chloride) 10 Meq Tablet.er 1 Tab PO DAILY Omeprazole 20 Mg Capsule. 1 Cap PO DAILY Vitals/I & O Vital Sign - Last 24 Hours 02/01/17 02/01/17 02/01/17 02/01/17 11:51 13:02 14:40 19:10 Temp 98.5 98.9 98.5 98.9 Pulse 96 96 Resp 20 18 B/P (MAP) 160/83 (108) 189/88 (121) Pulse Ox 96 93 O2 Delivery Room Air Room Air Room Air Room Air 02/01/17 02/01/17 02/01/17 02/01/17 20:00 21:25 21:25 23:10 Temp 98.9 98.9 Pulse 96 81 Resp 16 20 B/P (MAP) 189/88 189/98 (128) Pulse Ox 93 O2 Delivery Room Air Room Air 02/01/17 02/02/17 02/02/17 02/02/17 23:59 03:15 07:50 08:21 Temp 97.4 97.2 97.4 97.2 Pulse 84 70 70 78 Resp 18 20 B/P (MAP) 189/98 135/112 (120) 141/75 (97) Pulse Ox 96 95 O2 Delivery Room Air Room Air 02/02/17 02/02/17 08:22 10:59 Temp 97.1 97.1 Pulse 78 74 Resp 19 B/P (MAP) 141/75 169/91 (117) Pulse Ox 96 O2 Delivery Room Air Intake and Output 02/01/17 02/01/17 02/02/17 14:59 22:59 06:59 Intake Total 120 ml 700 ml 150 ml Output Total 700 ml Balance 120 ml 700 ml -550 ml DHRUV LACEY MD February 02, 2017 11:13
--- NOTE | 2017-02-02 12:32 | PDOC2 ---
CONSULT Date of Consult Date of Consult DATE: 02/02/17 TIME: 12:05 Reason for Consult Reason for Consult: Diarrhea/history of polyposis syndrome Referring Physician Referring Physician: Dr. Argueta Source Source: Chart review, Patient History of Present Illness Reason for Visit: 66 y/o female admitted with exacerbation of chronic CHF. We were asked to see re: 2 weeks of "diarrhea", consisting of 5-6 loose stools daily. Most of these occur w/in an hour of eating. She is only occasionally awakened at night to stool. No overt blood or melena seen. No h/o exposure to questionable water sources. Did take antibiotic of some sort w/in past 6 months, though CDT assay here negative. Interestingly, she says sometimes constipated when on diuretics with hard stool, though s/p abdominal colectomy for what sounds like familial polyposis syndrome of some sort. Gaining wt recently. Appetite good, though notes some early satiety. No nausea or vomiting. From records here, I think had sigmoidoscopy [place] [address] George, though reports not present (probably done with software and not in record). She recalls no abnormality. Her recollection is consistent with ileosigmoid anastomosis. GI family history is significant for polyps/colon cancer in several members, though unclear if truly FAP. Admits to occasional heartburn w/o dysphagia. Had Serafin Shunt in late 's. States had "ulcer" in the excluded portion of UGI anatomy in the past. Had EGD with last sigmoid; details not available/recalled. S/p ryan. Carries diagnosis of NAFLD/GUILLORY, though unclear when made. No pancreatic history. No tobacco, alcohol, NSAID use historically. Some chronic anemia with prior iron studies c/w TED and ACD combo. Past Medical History Cardiovascular: CHF, HTN, Hyperlipidemia Pulmonary: Other (MATTHEW) CENTRAL NERVOUS SYSTEM: Periperal neuropathy Heme/Onc: Anemia NOS Psych: Anxiety, Depression Musculoskeletal: Osteoarthritis Rheumatologic: Gout Renal/: Chronic renal insuff Endocrine: Diabetes, Hyperparathyroidism (at least elevated PTH in past) Past Surgical History Past Surgical History: Appendectomy, Cholecystectomy, , Hernia Repair (with mesh (subsequently removed)), Hysterectomy, Colectomy, Other (Bilateral CTR's, Serafin Shunt) Family History Family History: Cancer Social History No ALCOHOL: none Drugs: None Lives: with Family Domestic Violence: Neg Current Medications Current Medications Current Medications Zolpidem Tartrate (Ambien) 5 mg PRN QHS PRN PO INSOMNIA, MAY REPEAT IN 1HR; Start 01/29/17 at 18:45 Oxycodone HCl (Roxicodone) 5 mg PRN Q3HRS PRN PO BREAKTHROUGH PAIN Last administered on 02/01/17 11:51; Start 01/29/17 at 18:45 Acetaminophen (Tylenol) 650 mg PRN Q6HRS PRN PO Headaches, Temp > 101.5F; Start 01/29/17 at 18:45 Ibuprofen (Motrin) 400 mg PRN Q6HRS PRN PO MILD PAIN; Start 01/29/17 at 18:45 Docusate Sodium (Colace) 100 mg BID PO Last administered on 02/01/17 08:42; Start 01/29/17 at 21:00; Stop 02/02/17 at 11:08; Status DC Magnesium Hydroxide (Milk Of Magnesia) 2,400 mg PRN Q12HR PRN PO CONSTIPATION; Start 01/29/17 at 18:45 Lactulose 20 gm PRN Q12HR PRN PO CONSTIPATION; Start 01/29/17 at 18:45 Bisacodyl (Dulcolax Supp) 10 mg PRN DAILY PRN [place] CONSTIPATION; Start 01/29/17 at 18:45; Stop 02/02/17 at 11:08; Status DC Enoxaparin Sodium (Lovenox 40mg Syringe) 40 mg Q12HR SQ Last administered on 21:09; Start 01/29/17 at 22:00; Stop 01/31/17 at 07:12; Status DC Alprazolam (Xanax) 0.25 mg QHS PRN PO ANXIETY / AGITATION; Start 01/29/17 at 18 :45 Carvedilol (Coreg) 12.5 mg BIDWMEALS PO Last administered on 01/29/17 21:51; Start 01/29/17 at 19:00; Stop 01/30/17 at 11:28; Status DC Cyclobenzaprine HCl (Flexeril) 10 mg BID PO Last administered on 02/02/17 08: 10; Start 01/29/17 at 21:00 Fluconazole (Diflucan) 100 mg DAILY PO Last administered on 02/02/17 08:21; Start 01/30/17 at 09:00 Furosemide (Lasix) 40 mg BID92 PO ; Start 01/30/17 at 09:00; Stop 01/30/17 at 09 :00; Status DC Hydralazine HCl (Apresoline) 25 mg BID PO Last administered on 02/02/17 08:22 ; Start 01/29/17 at 21:00 Acetaminophen/ Hydrocodone Bitart (Lortab 5/325) 1 tab PRN Q6HRS PRN PO MILD PAIN Last administered on 01/29/17 22:31; Start 01/29/17 at 18:45 Lisinopril (Prinivil) 40 mg DAILY PO Last administered on 02/02/17 08:21; Start 01/30/17 at 09:00 Oxycodone/ Acetaminophen (Percocet 10/325) 1 tab PRN Q6HRS PRN PO MODERATE- SEVERE PAIN Last administered on 02/01/17 21:25; Start 01/29/17 at 18:45 Tramadol HCl (Ultram) 100 mg BID PO Last administered on 01/29/17 21:50; Start 01/29/17 at 21:00; Stop 01/30/17 at 11:51; Status DC Vitamin D (Vitamin D3) 5,000 unit DAILY PO Last administered on 02/02/17 08:13 ; Start 01/30/17 at 09:00 Gabapentin (Neurontin) 300 mg PRN DAILY PRN PO NERVE PAIN Last administered on 02/01/17 11:51; Start 01/29/17 at 21:00 Glimepiride (Amaryl) 4 mg BIDWMEALS PO Last administered on 02/02/17 08:21; Start 01/30/17 at 09:00 Insulin Detemir (Levemir) 40 units QHS SQ Last administered on 01/29/17 22:01 ; Start 01/29/17 at 21:00; Stop 01/30/17 at 11:51; Status DC Insulin Aspart (NovoLOG) 50 units TIDAC SQ Last administered on 01/29/17 22:00 ; Start 01/29/17 at 19:00; Stop 01/30/17 at 11:51; Status DC Non-Formulary Medication 1.2 mg DAILY SQ ; Start 01/30/17 at 09:00; Stop at 09:00; Status DC Pantoprazole Sodium (Protonix) 40 mg DAILYAC PO Last administered on 02/02/17 08:13; Start 01/30/17 at 07:30 Potassium Chloride (Klor-Con) 10 meq DAILYWBKFT PO Last administered on 08:42; Start 01/30/17 at 08:00 Insulin Aspart (NovoLOG) 0-9 UNITS TIDWMEALS SQ Last administered on 02/02/17 11:53; Start 01/30/17 at 08:00 Dextrose (Dextrose 50%-Water Syringe) 12.5 gm PRN Q15MIN PRN IV SEE COMMENTS; Start 01/29/17 at 18:45 Furosemide (Lasix) 40 mg 1X ONCE IVP Last administered on 01/29/17 21:52; Start 01/29/17 at 21:00; Stop 01/29/17 at 21:01; Status DC Furosemide (Lasix) 40 mg BID92 IVP Last administered on 01/30/17 11:01; Start 01/30/17 at 09:00; Stop 01/30/17 at 11:28; Status DC Lidocaine HCl (Xylocaine-Mpf 1% Vial) 2 ml STK-MED ONCE .ROUTE ; Start 01/29/17 at 20:37; Stop 01/29/17 at 20:38; Status DC Dextrose 250 ml @ 1,000 mls/hr 1X ONCE IV ; Start 01/30/17 at 07:45; Stop at 07:59; Status DC Glucose (Insta-Glucose) 15 gm PRN Q15MIN PRN PO LOW BLOOD SUGAR Last administered on 01/30/17 07:55; Start 01/30/17 at 08:00 Glucose (Insta-Glucose) 15 gm STK-MED ONCE .ROUTE ; Start 01/30/17 at 07:52; Stop 01/30/17 at 07:53; Status DC Lidocaine HCl (Xylocaine-Mpf 1% Vial) 2 ml STK-MED ONCE .ROUTE ; Start 01/29/17 at 21:00; Stop 01/30/17 at 09:01; Status DC Furosemide (Lasix) 40 mg DAILY IVP Last administered on 02/02/17 08:21; Start 01/31/17 at 09:00 Aspirin (Ecotrin) 81 mg DAILYWBKFT PO Last administered on 02/02/17 08:23; Start 01/30/17 at 12:30 Insulin Detemir (Levemir) 25 units QHS SQ Last administered on 02/01/17 21:35 ; Start 01/30/17 at 21:00 Gabapentin (Neurontin) 400 mg BID PO Last administered on 02/02/17 08:13; Start 01/31/17 at 09:00 Gabapentin (Neurontin) 100 mg 1X ONCE PO Last administered on 01/31/17 01:56 ; Start 01/31/17 at 02:00; Stop 01/31/17 at 02:01; Status DC Enoxaparin Sodium (Lovenox 40mg Syringe) 40 mg QHS SQ Last administered on 02/01 21:28; Start 01/31/17 at 21:00 Methylprednisolone Acetate (DEPO-Medrol 40MG VIAL) 40 mg 1X ONCE IM Last administered on 02/01/17 13:30; Start 02/01/17 at 13:30; Stop 02/01/17 at 13:31 ; Status DC Lidocaine/Sodium Bicarbonate (Buffered Lidocaine 1%) 20 ml 1X ONCE IJ Last administered on 02/01/17 13:30; Start 02/01/17 at 13:30; Stop 02/01/17 at 13:31 ; Status DC Labetalol HCl (Normodyne) 20 mg PRN Q2HR PRN IVP HYPERTENSION, SEE COMMENTS Last administered on 02/01/17 23:59; Start 02/01/17 at 23:30 Insulin Aspart (NovoLOG) 10 units TIDAC SQ Last administered on 02/02/17 11:54 ; Start 02/02/17 at 11:30 Insulin Aspart (NovoLOG VIAL) 15 unit 1X ONCE SQ ; Start 02/02/17 at 08:45; Stop 02/02/17 at 08:46; Status Cancel Insulin Aspart (NovoLOG) 15 units 1X ONCE SQ Last administered on 02/02/17 08 :42; Start 02/02/17 at 08:45; Stop 02/02/17 at 08:46; Status DC Loperamide HCl (Imodium) 2 mg PRN Q15MIN PRN PO DIARRHEA; Start 02/02/17 at 11: 15 Active Scripts Active Xanax (Alprazolam) 0.25 Mg Tablet 0.25 Mg PO QHS PRN Oxycodone-Acetaminophen 10-325 (Oxycodone Hcl/Acetaminophen) 1 Each Tablet 1 Tab PO PRN Q6HRS PRN Hydralazine Hcl 25 Mg Tablet 25 Mg PO BID Carvedilol 12.5 Mg Tablet 12.5 Mg PO BIDWMEALS Fluconazole 100 Mg Tablet 1 Tab PO DAILY Lasix (Furosemide) 40 Mg Tablet 40 Mg PO BID Reported Lisinopril 40 Mg Tablet 1 Tab PO DAILY Humalog (Insulin Lispro) 100 Unit/1 Ml Vial 50 Unit SQ TID Lortab 5-325 mg Tablet (Hydrocodone/Acetaminophen) 1 Each Tablet 1 Tab PO PRN Q6HRS PRN Levemir (Insulin Detemir) 100 Unit/1 Ml Vial 40 Unit SQ HS Victoza 3-Devon (Liraglutide) 0.6 Mg/0.1 Ml Pen.injctr 1.2 Mg SQ DAILY Gabapentin 300 Mg Capsule 1 Cap PO DAILY PRN Vitamin D3 (Cholecalciferol (Vitamin D3)) 5,000 Unit Tablet 1 Tab PO DAILY Glimepiride 4 Mg Tablet 1 Tab PO BID Tramadol Hcl 50 Mg Tablet 2 Tab PO BID Cyclobenzaprine Hcl 10 Mg Tablet 1 Tab PO BID Klor-Con 10 (Potassium Chloride) 10 Meq Tablet.er 1 Tab PO DAILY Omeprazole 20 Mg Capsule.dr 1 Cap PO DAILY Allergies Allergies: Coded Allergies: No Known Drug Allergies (Unverified , 05/01/16) ROS Review of System 10-point review of systems otherwise negative. Physical Exam General: Alert, Oriented X3, Cooperative, No acute distress Lungs: Clear to auscultation Heart: Regular rate, Normal S1, Normal S2, No murmurs Abdomen: Normal bowel sounds, Soft, No tenderness, No hepatosplenomegaly, No masses, Other Extremities: No cyanosis, Other (chronic lymphedema, LE's) Skin: No significant lesion Neuro: Normal speech, Strength at 5/5 X4 ext, Sensation intact, Cranial nerves 3-12 NL, Reflexes 2+ Psych/Mental Status: Mental status NL, Mood NL MUSCULOSKELETAL: No deformity Vitals VITALS Vital Signs Date Time Temp Pulse Resp B/P (MAP) Pulse Ox O2 Delivery O2 Flow Rate FiO2 02/02/17 10:59 97.1 74 19 169/91 (117) 96 Room Air 97.1 Labs Labs Laboratory Tests Test 01/31/17 14:23 01/31/17 16:46 01/31/17 20:35 02/01/17 03:30 Clostridium difficile Toxin (PCR) Negative (Negative) Glucose (Fingerstick) 126 mg/dL (70-99) 98 mg/dL (70-99) Sodium Level 145 mmol/L (136-145) Potassium Level 4.6 mmol/L (3.5-5.1) Chloride Level 112 mmol/L (98-107) Carbon Dioxide Level 24 mmol/L (21-32) Anion Gap 9 (6-14) Blood Urea Nitrogen 31 mg/dL (7-20) Creatinine 2.5 mg/dL (0.6-1.0) Estimated GFR (Cockcroft-Gault) 19.2 Glucose Level 72 mg/dL (70-99) Calcium Level 8.0 mg/dL (8.5-10.1) Test 02/01/17 04:30 02/01/17 07:38 02/01/17 10:24 02/01/17 17:15 White Blood Count 7.3 x10^3/uL (4.0-11.0) Red Blood Count 3.51 x10^6/uL (3.50-5.40) Hemoglobin 9.9 g/dL (12.0-15.5) Hematocrit 31.1 % (36.0-47.0) Mean Corpuscular Volume 89 fL (79-100) Mean Corpuscular Hemoglobin 28 pg (25-35) Mean Corpuscular Hemoglobin Concent 32 g/dL (31-37) Red Cell Distribution Width 16.2 % (11.5-14.5) Platelet Count 145 x10^3/uL (140-400) Neutrophils (%) (Auto) 54 % (31-73) Lymphocytes (%) (Auto) 35 % (24-48) Monocytes (%) (Auto) 7 % (0-9) Eosinophils (%) (Auto) 4 % (0-3) Basophils (%) (Auto) 1 % (0-3) Neutrophils # (Auto) 3.9 x10^3uL (1.8-7.7) Lymphocytes # (Auto) 2.6 x10^3/uL (1.0-4.8) Monocytes # (Auto) 0.5 x10^3/uL (0.0-1.1) Eosinophils # (Auto) 0.3 x10^3/uL (0.0-0.7) Basophils # (Auto) 0.1 x10^3/uL (0.0-0.2) Glucose (Fingerstick) 52 mg/dL (70-99) 141 mg/dL (70-99) 168 mg/dL (70-99) Test 02/01/17 20:36 02/02/17 03:45 02/02/17 07:53 02/02/17 11:02 Glucose (Fingerstick) 316 mg/dL (70-99) 366 mg/dL (70-99) 333 mg/dL (70-99) White Blood Count 4.3 x10^3/uL (4.0-11.0) Red Blood Count 3.87 x10^6/uL (3.50-5.40) Hemoglobin 10.9 g/dL (12.0-15.5) Hematocrit 34.3 % (36.0-47.0) Mean Corpuscular Volume 89 fL (79-100) Mean Corpuscular Hemoglobin 28 pg (25-35) Mean Corpuscular Hemoglobin Concent 32 g/dL (31-37) Red Cell Distribution Width 16.7 % (11.5-14.5) Platelet Count 157 x10^3/uL (140-400) Neutrophils (%) (Auto) 88 % (31-73) Lymphocytes (%) (Auto) 11 % (24-48) Monocytes (%) (Auto) 1 % (0-9) Eosinophils (%) (Auto) 0 % (0-3) Basophils (%) (Auto) 1 % (0-3) Neutrophils # (Auto) 3.8 x10^3uL (1.8-7.7) Lymphocytes # (Auto) 0.5 x10^3/uL (1.0-4.8) Monocytes # (Auto) 0.0 x10^3/uL (0.0-1.1) Eosinophils # (Auto) 0.0 x10^3/uL (0.0-0.7) Basophils # (Auto) 0.0 x10^3/uL (0.0-0.2) Segmented Neutrophils % 82 % (35-66) Band Neutrophils % 10 % (0-9) Lymphocytes % 7 % (24-48) Monocytes % 1 % (0-10) Platelet Estimate Adequate (ADEQUATE) Large Platelets Few Anisocytosis Slight Ovalocytes Present Sodium Level 138 mmol/L (136-145) Potassium Level 5.3 mmol/L (3.5-5.1) Chloride Level 106 mmol/L (98-107) Carbon Dioxide Level 21 mmol/L (21-32) Anion Gap 11 (6-14) Blood Urea Nitrogen 33 mg/dL (7-20) Creatinine 2.7 mg/dL (0.6-1.0) Estimated GFR (Cockcroft-Gault) 17.5 Glucose Level 430 mg/dL (70-99) Calcium Level 8.6 mg/dL (8.5-10.1) Laboratory Tests Test 02/01/17 17:15 02/01/17 20:36 02/02/17 03:45 02/02/17 07:53 Glucose (Fingerstick) 168 mg/dL (70-99) 316 mg/dL (70-99) 366 mg/dL (70-99) White Blood Count 4.3 x10^3/uL (4.0-11.0) Red Blood Count 3.87 x10^6/uL (3.50-5.40) Hemoglobin 10.9 g/dL (12.0-15.5) Hematocrit 34.3 % (36.0-47.0) Mean Corpuscular Volume 89 fL (79-100) Mean Corpuscular Hemoglobin 28 pg (25-35) Mean Corpuscular Hemoglobin Concent 32 g/dL (31-37) Red Cell Distribution Width 16.7 % (11.5-14.5) Platelet Count 157 x10^3/uL (140-400) Neutrophils (%) (Auto) 88 % (31-73) Lymphocytes (%) (Auto) 11 % (24-48) Monocytes (%) (Auto) 1 % (0-9) Eosinophils (%) (Auto) 0 % (0-3) Basophils (%) (Auto) 1 % (0-3) Neutrophils # (Auto) 3.8 x10^3uL (1.8-7.7) Lymphocytes # (Auto) 0.5 x10^3/uL (1.0-4.8) Monocytes # (Auto) 0.0 x10^3/uL (0.0-1.1) Eosinophils # (Auto) 0.0 x10^3/uL (0.0-0.7) Basophils # (Auto) 0.0 x10^3/uL (0.0-0.2) Segmented Neutrophils % 82 % (35-66) Band Neutrophils % 10 % (0-9) Lymphocytes % 7 % (24-48) Monocytes % 1 % (0-10) Platelet Estimate Adequate (ADEQUATE) Large Platelets Few Anisocytosis Slight Ovalocytes Present Sodium Level 138 mmol/L (136-145) Potassium Level 5.3 mmol/L (3.5-5.1) Chloride Level 106 mmol/L (98-107) Carbon Dioxide Level 21 mmol/L (21-32) Anion Gap 11 (6-14) Blood Urea Nitrogen 33 mg/dL (7-20) Creatinine 2.7 mg/dL (0.6-1.0) Estimated GFR (Cockcroft-Gault) 17.5 Glucose Level 430 mg/dL (70-99) Calcium Level 8.6 mg/dL (8.5-10.1) Test 02/02/17 11:02 Glucose (Fingerstick) 333 mg/dL (70-99) Images Images No abdominal images. Assessment/Plan Assessment/Plan IMP: 1. Diarrhea--history suggests possible functional component. Giardia? C.diff has been negative. 2. FAP?, s/p abdominal colectomy with maybe ileosigmoid anastomosis. If last done in 2014, would be roughly due for repeat. 3. S/p Serafin Shunt--if still intact, distal stomach and duodenum excluded from nutrient stream; could explain some of the iron deficiency. 4. H/o "ulcer" 5. S/p ryan. 6. Fatty liver disease? Certainly at risk. Chronically elevated alk phos may be partly this or hyperparathyroid (secondary?) state. REC: 1. Check Giardia antigen. 2. Imodium prn. 3. Will review office records re: timing of last scopes. 4. If no answer from stool studies, consider empiric trial of Flagyl. --other pending Thank you for allowing us to assist in the care of this patient. Please call if questions. Dr. George back tomorrow and will determine timing of any procedures. CHEVY BOYD MD February 02, 2017 12:32
[2017-02-02 14:24] VITALS: BP 177/94
[2017-02-02] MEDS: LOPERAMIDE 2 MG CAPSULE PO PRN (14:44)
[2017-02-02 19:25] VITALS: BP 155/68
[2017-02-02] MEDS: oxyCODONE/APAP 10/325 1 TAB TABLET PO PRN (20:49)
[2017-02-02] MEDS: ENOXAPARIN 40 MG/0.4 ML SYRINGE. SQ SCH (20:49)
[2017-02-02] MEDS: INSULIN DETEMIR 300 UNITS/3 ML INSULN.PEN. SQ SCH (20:54)
[2017-02-02 23:00] VITALS: BP 148/72
[2017-02-03 02:22] VITALS: BP 162/85
[2017-02-03 05:47] LABS: BASO # 0.1 x10^3/uL (0.0-0.2); BASO % 1 % (0-3); EOS % 1 % (0-3); HEMATOCRIT 32.2 % (36.0-47.0); HEMOGLOBIN 10.1 g/dL (12.0-15.5); LYMPH # 2.1 x10^3/uL (1.0-4.8); LYMPH % 24 % (24-48); MEAN CORPUSCULAR HEMOGLOBIN 28 pg (25-35); MEAN CORPUSCULAR HGB CONC 32 g/dL (31-37); MEAN CORPUSCULAR VOLUME 90 fL (79-100); MONO % 5 % (0-9); NEUT % 69 % (31-73); PLATELET COUNT 161 x10^3/uL (140-400); RED CELL DISTRIBUTION WIDTH 16.8 % (11.5-14.5); WHITE BLOOD COUNT 8.9 x10^3/uL (4.0-11.0)
[2017-02-03 05:58] LABS: CALCIUM 8.3 mg/dL (8.5-10.1); CREATININE 2.8 mg/dL (0.6-1.0); GFR 16.8; POTASSIUM 4.8 mmol/L (3.5-5.1)
[2017-02-03 07:00] VITALS: BP 147/82
[2017-02-03] MEDS: INSULIN ASPART 300 UNITS/3 ML INSULN.PEN SQ SCH ×6 (08:00→17:00)
[2017-02-03] MEDS: CHOLECALCIFEROL (VITAMIN D3) 5,000 UNIT CAPSULE PO SCH (08:37)
[2017-02-03] MEDS: PANTOPRAZOLE 40 MG TABLET.DR. PO SCH (08:37)
[2017-02-03] MEDS: FLUCONAZOLE 100 MG TABLET. PO SCH (08:38)
[2017-02-03] MEDS: ASPIRIN ENTERIC COATED 81 MG TABLET.DR. PO SCH (08:38)
[2017-02-03] MEDS: CYCLOBENZAPRINE 10 MG TABLET. PO SCH ×2 (08:38→20:31)
[2017-02-03] MEDS: LISINOPRIL 40 MG TABLET. PO SCH (08:38)
[2017-02-03] MEDS: GLIMEPIRIDE 2 MG TABLET. PO SCH ×2 (08:38→17:00)
[2017-02-03] MEDS: hydrALAZINE 25 MG TABLET PO SCH ×2 (08:38→20:31)
[2017-02-03] MEDS: POTASSIUM CHLORIDE 10 MEQ TABLET.ER. PO SCH (08:39)
[2017-02-03] MEDS: FUROSEMIDE 40 MG/4 ML VIAL. IVP SCH (08:39)
[2017-02-03] MEDS: GABAPENTIN 400 MG CAPSULE. PO SCH ×2 (08:51→20:31)
[2017-02-03] MEDS: LOPERAMIDE 2 MG CAPSULE PO PRN ×2 (09:43→20:31)
[2017-02-03 10:50] VITALS: BP 146/71
--- NOTE | 2017-02-03 10:57 | PDOC ---
Subjective: Subjective: Working w/ PT. Diarrhea is less watery w/ Imodium, now more like pudding. Objective: Objective: Per RN - having diarrhea. Did better w/ first dose of Imodium, given second dose this morning after significant stooling. Vital Signs: Vital Signs Date Time Temp Pulse Resp B/P (MAP) Pulse Ox O2 Delivery O2 Flow Rate FiO2 02/03/17 08:38 79 147/82 02/03/17 08:00 Room Air 02/03/17 07:00 97.6 18 97 97.6 Labs: Laboratory Tests Test 02/02/17 11:02 02/02/17 16:36 02/02/17 20:44 02/03/17 05:05 Glucose (Fingerstick) 333 mg/dL 277 mg/dL 279 mg/dL White Blood Count 8.9 x10^3/uL Red Blood Count 3.60 x10^6/uL Hemoglobin 10.1 g/dL Hematocrit 32.2 % Mean Corpuscular Volume 90 fL Mean Corpuscular Hemoglobin 28 pg Mean Corpuscular Hemoglobin Concent 32 g/dL Red Cell Distribution Width 16.8 % Platelet Count 161 x10^3/uL Neutrophils (%) (Auto) 69 % Lymphocytes (%) (Auto) 24 % Monocytes (%) (Auto) 5 % Eosinophils (%) (Auto) 1 % Basophils (%) (Auto) 1 % Neutrophils # (Auto) 6.2 x10^3uL Lymphocytes # (Auto) 2.1 x10^3/uL Monocytes # (Auto) 0.4 x10^3/uL Eosinophils # (Auto) 0.1 x10^3/uL Basophils # (Auto) 0.1 x10^3/uL Sodium Level 140 mmol/L Potassium Level 4.8 mmol/L Chloride Level 108 mmol/L Carbon Dioxide Level 23 mmol/L Anion Gap 9 Blood Urea Nitrogen 39 mg/dL Creatinine 2.8 mg/dL Estimated GFR (Cockcroft-Gault) 16.8 Glucose Level 258 mg/dL Calcium Level 8.3 mg/dL Test 02/03/17 07:53 Glucose (Fingerstick) 207 mg/dL PE: GEN: NAD, up to chair LUNGS: clear anteriorly HEART: RRR ABD: NABS, S/ND/NT, obese NEURO/PSYCH: A & O 3 A/P: CHF Diarrhea -C Diff neg, Giardia pending, stool culture uncollected -improved w/ Imodium ?FAP, s/p colectomy, h/o recetal adenoma in 2014 S/p Serafin shunt, staple line broken down on EGD in 2014 -on PPI -- Improved w/ Imodium, continue this and await other stool tests. Will review timing of next screening exam w/ Dr. George. ANALI JOHNSON February 03, 2017 10:57
--- NOTE | 2017-02-03 11:36 | PDOC ---
PROGRESS NOTES Chief Complaint Chief Complaint 1. Acute-on chronic congestive heart failure, likely systolic versus diastolic or combined. 2. Old lymphedema. 3. Obesity. 4. Diabetes type 2. Unknown Hgb A1c. 6. Chronic kidney disease. 7. Anemia of chronic disease. 8. Limited mobility, wheelchair-bound. 9. Chest heaviness. 10. Diarrhea x 2 weeks, hx subtotal colectomy (family hx Familial polyposis?) History of Present Illness History of Present Illness Legs actually better than on admission BM now pudding consistency, not watery No CP C diff is neg CRea now high, on lasix 40 IV daily (LE edema and GI loss) PLAN: COnt Imodium q 2 prn Will defer lasix route and dose to cards- takes home 40 PO lasix cont to monitor stools BMP while on IV diuretic PT - ok for HH Need to watch out for worsening renal fcn Vitals Vitals Vital Signs Date Time Temp Pulse Resp B/P (MAP) Pulse Ox O2 Delivery O2 Flow Rate FiO2 02/03/17 10:50 98.2 88 17 146/71 (96) 98 Room Air 98.2 Physical Exam General: Alert, Oriented X3, Cooperative, No acute distress Heart: Regular rate, Normal S1, Normal S2, No murmurs Lungs: Clear, Other (no wheezing) Abdomen: Normal bowel sounds, Soft, No tenderness, No hepatosplenomegaly, No masses, Other Extremities: No cyanosis, Other (chronic lymphedema, LE's) Skin: No significant lesion Labs LABS Laboratory Tests Test 02/02/17 16:36 02/02/17 20:44 02/03/17 05:05 02/03/17 07:53 Glucose (Fingerstick) 277 mg/dL (70-99) 279 mg/dL (70-99) 207 mg/dL (70-99) White Blood Count 8.9 x10^3/uL (4.0-11.0) Red Blood Count 3.60 x10^6/uL (3.50-5.40) Hemoglobin 10.1 g/dL (12.0-15.5) Hematocrit 32.2 % (36.0-47.0) Mean Corpuscular Volume 90 fL (79-100) Mean Corpuscular Hemoglobin 28 pg (25-35) Mean Corpuscular Hemoglobin Concent 32 g/dL (31-37) Red Cell Distribution Width 16.8 % (11.5-14.5) Platelet Count 161 x10^3/uL (140-400) Neutrophils (%) (Auto) 69 % (31-73) Lymphocytes (%) (Auto) 24 % (24-48) Monocytes (%) (Auto) 5 % (0-9) Eosinophils (%) (Auto) 1 % (0-3) Basophils (%) (Auto) 1 % (0-3) Neutrophils # (Auto) 6.2 x10^3uL (1.8-7.7) Lymphocytes # (Auto) 2.1 x10^3/uL (1.0-4.8) Monocytes # (Auto) 0.4 x10^3/uL (0.0-1.1) Eosinophils # (Auto) 0.1 x10^3/uL (0.0-0.7) Basophils # (Auto) 0.1 x10^3/uL (0.0-0.2) Sodium Level 140 mmol/L (136-145) Potassium Level 4.8 mmol/L (3.5-5.1) Chloride Level 108 mmol/L (98-107) Carbon Dioxide Level 23 mmol/L (21-32) Anion Gap 9 (6-14) Blood Urea Nitrogen 39 mg/dL (7-20) Creatinine 2.8 mg/dL (0.6-1.0) Estimated GFR (Cockcroft-Gault) 16.8 Glucose Level 258 mg/dL (70-99) Calcium Level 8.3 mg/dL (8.5-10.1) Review of Systems Review of Systems asleep did not awaken Comment Review of Relevant I have reviewed the following items kai (where applicable) has been applied. Labs Laboratory Tests Test 02/01/17 17:15 02/01/17 20:36 02/02/17 03:45 02/02/17 07:53 Glucose (Fingerstick) 168 mg/dL (70-99) 316 mg/dL (70-99) 366 mg/dL (70-99) White Blood Count 4.3 x10^3/uL (4.0-11.0) Red Blood Count 3.87 x10^6/uL (3.50-5.40) Hemoglobin 10.9 g/dL (12.0-15.5) Hematocrit 34.3 % (36.0-47.0) Mean Corpuscular Volume 89 fL (79-100) Mean Corpuscular Hemoglobin 28 pg (25-35) Mean Corpuscular Hemoglobin Concent 32 g/dL (31-37) Red Cell Distribution Width 16.7 % (11.5-14.5) Platelet Count 157 x10^3/uL (140-400) Neutrophils (%) (Auto) 88 % (31-73) Lymphocytes (%) (Auto) 11 % (24-48) Monocytes (%) (Auto) 1 % (0-9) Eosinophils (%) (Auto) 0 % (0-3) Basophils (%) (Auto) 1 % (0-3) Neutrophils # (Auto) 3.8 x10^3uL (1.8-7.7) Lymphocytes # (Auto) 0.5 x10^3/uL (1.0-4.8) Monocytes # (Auto) 0.0 x10^3/uL (0.0-1.1) Eosinophils # (Auto) 0.0 x10^3/uL (0.0-0.7) Basophils # (Auto) 0.0 x10^3/uL (0.0-0.2) Segmented Neutrophils % 82 % (35-66) Band Neutrophils % 10 % (0-9) Lymphocytes % 7 % (24-48) Monocytes % 1 % (0-10) Platelet Estimate Adequate (ADEQUATE) Large Platelets Few Anisocytosis Slight Ovalocytes Present Sodium Level 138 mmol/L (136-145) Potassium Level 5.3 mmol/L (3.5-5.1) Chloride Level 106 mmol/L (98-107) Carbon Dioxide Level 21 mmol/L (21-32) Anion Gap 11 (6-14) Blood Urea Nitrogen 33 mg/dL (7-20) Creatinine 2.7 mg/dL (0.6-1.0) Estimated GFR (Cockcroft-Gault) 17.5 Glucose Level 430 mg/dL (70-99) Calcium Level 8.6 mg/dL (8.5-10.1) Test 02/02/17 11:02 02/02/17 16:36 02/02/17 20:44 02/03/17 05:05 Glucose (Fingerstick) 333 mg/dL (70-99) 277 mg/dL (70-99) 279 mg/dL (70-99) White Blood Count 8.9 x10^3/uL (4.0-11.0) Red Blood Count 3.60 x10^6/uL (3.50-5.40) Hemoglobin 10.1 g/dL (12.0-15.5) Hematocrit 32.2 % (36.0-47.0) Mean Corpuscular Volume 90 fL (79-100) Mean Corpuscular Hemoglobin 28 pg (25-35) Mean Corpuscular Hemoglobin Concent 32 g/dL (31-37) Red Cell Distribution Width 16.8 % (11.5-14.5) Platelet Count 161 x10^3/uL (140-400) Neutrophils (%) (Auto) 69 % (31-73) Lymphocytes (%) (Auto) 24 % (24-48) Monocytes (%) (Auto) 5 % (0-9) Eosinophils (%) (Auto) 1 % (0-3) Basophils (%) (Auto) 1 % (0-3) Neutrophils # (Auto) 6.2 x10^3uL (1.8-7.7) Lymphocytes # (Auto) 2.1 x10^3/uL (1.0-4.8) Monocytes # (Auto) 0.4 x10^3/uL (0.0-1.1) Eosinophils # (Auto) 0.1 x10^3/uL (0.0-0.7) Basophils # (Auto) 0.1 x10^3/uL (0.0-0.2) Sodium Level 140 mmol/L (136-145) Potassium Level 4.8 mmol/L (3.5-5.1) Chloride Level 108 mmol/L (98-107) Carbon Dioxide Level 23 mmol/L (21-32) Anion Gap 9 (6-14) Blood Urea Nitrogen 39 mg/dL (7-20) Creatinine 2.8 mg/dL (0.6-1.0) Estimated GFR (Cockcroft-Gault) 16.8 Glucose Level 258 mg/dL (70-99) Calcium Level 8.3 mg/dL (8.5-10.1) Test 02/03/17 07:53 Glucose (Fingerstick) 207 mg/dL (70-99) Laboratory Tests Test 02/02/17 16:36 02/02/17 20:44 02/03/17 05:05 02/03/17 07:53 Glucose (Fingerstick) 277 mg/dL (70-99) 279 mg/dL (70-99) 207 mg/dL (70-99) White Blood Count 8.9 x10^3/uL (4.0-11.0) Red Blood Count 3.60 x10^6/uL (3.50-5.40) Hemoglobin 10.1 g/dL (12.0-15.5) Hematocrit 32.2 % (36.0-47.0) Mean Corpuscular Volume 90 fL (79-100) Mean Corpuscular Hemoglobin 28 pg (25-35) Mean Corpuscular Hemoglobin Concent 32 g/dL (31-37) Red Cell Distribution Width 16.8 % (11.5-14.5) Platelet Count 161 x10^3/uL (140-400) Neutrophils (%) (Auto) 69 % (31-73) Lymphocytes (%) (Auto) 24 % (24-48) Monocytes (%) (Auto) 5 % (0-9) Eosinophils (%) (Auto) 1 % (0-3) Basophils (%) (Auto) 1 % (0-3) Neutrophils # (Auto) 6.2 x10^3uL (1.8-7.7) Lymphocytes # (Auto) 2.1 x10^3/uL (1.0-4.8) Monocytes # (Auto) 0.4 x10^3/uL (0.0-1.1) Eosinophils # (Auto) 0.1 x10^3/uL (0.0-0.7) Basophils # (Auto) 0.1 x10^3/uL (0.0-0.2) Sodium Level 140 mmol/L (136-145) Potassium Level 4.8 mmol/L (3.5-5.1) Chloride Level 108 mmol/L (98-107) Carbon Dioxide Level 23 mmol/L (21-32) Anion Gap 9 (6-14) Blood Urea Nitrogen 39 mg/dL (7-20) Creatinine 2.8 mg/dL (0.6-1.0) Estimated GFR (Cockcroft-Gault) 16.8 Glucose Level 258 mg/dL (70-99) Calcium Level 8.3 mg/dL (8.5-10.1) Medications Current Medications Zolpidem Tartrate (Ambien) 5 mg PRN QHS PRN PO INSOMNIA, MAY REPEAT IN 1HR; Start 01/29/17 at 18:45 Oxycodone HCl (Roxicodone) 5 mg PRN Q3HRS PRN PO BREAKTHROUGH PAIN Last administered on 02/01/17 11:51; Start 01/29/17 at 18:45 Acetaminophen (Tylenol) 650 mg PRN Q6HRS PRN PO Headaches, Temp > 101.5F; Start 01/29/17 at 18:45 Ibuprofen (Motrin) 400 mg PRN Q6HRS PRN PO MILD PAIN; Start 01/29/17 at 18:45 Docusate Sodium (Colace) 100 mg BID PO Last administered on 02/01/17 08:42; Start 01/29/17 at 21:00; Stop 02/02/17 at 11:08; Status DC Magnesium Hydroxide (Milk Of Magnesia) 2,400 mg PRN Q12HR PRN PO CONSTIPATION; Start 01/29/17 at 18:45 Lactulose 20 gm PRN Q12HR PRN PO CONSTIPATION; Start 01/29/17 at 18:45 Bisacodyl (Dulcolax Supp) 10 mg PRN DAILY PRN [place] CONSTIPATION; Start 01/29/17 at 18:45; Stop 02/02/17 at 11:08; Status DC Enoxaparin Sodium (Lovenox 40mg Syringe) 40 mg Q12HR SQ Last administered on 21:09; Start 01/29/17 at 22:00; Stop 01/31/17 at 07:12; Status DC Alprazolam (Xanax) 0.25 mg QHS PRN PO ANXIETY / AGITATION; Start 01/29/17 at 18 :45 Carvedilol (Coreg) 12.5 mg BIDWMEALS PO Last administered on 01/29/17 21:51; Start 01/29/17 at 19:00; Stop 01/30/17 at 11:28; Status DC Cyclobenzaprine HCl (Flexeril) 10 mg BID PO Last administered on 02/03/17 08: 38; Start 01/29/17 at 21:00 Fluconazole (Diflucan) 100 mg DAILY PO Last administered on 02/03/17 08:38; Start 01/30/17 at 09:00 Furosemide (Lasix) 40 mg BID92 PO ; Start 01/30/17 at 09:00; Stop 01/30/17 at 09 :00; Status DC Hydralazine HCl (Apresoline) 25 mg BID PO Last administered on 02/03/17 08:38 ; Start 01/29/17 at 21:00 Acetaminophen/ Hydrocodone Bitart (Lortab 5/325) 1 tab PRN Q6HRS PRN PO MILD PAIN Last administered on 01/29/17 22:31; Start 01/29/17 at 18:45 Lisinopril (Prinivil) 40 mg DAILY PO Last administered on 02/03/17 08:38; Start 01/30/17 at 09:00 Oxycodone/ Acetaminophen (Percocet 10/325) 1 tab PRN Q6HRS PRN PO MODERATE- SEVERE PAIN Last administered on 02/02/17 20:49; Start 01/29/17 at 18:45 Tramadol HCl (Ultram) 100 mg BID PO Last administered on 01/29/17 21:50; Start 01/29/17 at 21:00; Stop 01/30/17 at 11:51; Status DC Vitamin D (Vitamin D3) 5,000 unit DAILY PO Last administered on 02/03/17 08:37 ; Start 01/30/17 at 09:00 Gabapentin (Neurontin) 300 mg PRN DAILY PRN PO NERVE PAIN Last administered on 02/01/17 11:51; Start 01/29/17 at 21:00 Glimepiride (Amaryl) 4 mg BIDWMEALS PO Last administered on 02/03/17 08:38; Start 01/30/17 at 09:00 Insulin Detemir (Levemir) 40 units QHS SQ Last administered on 01/29/17 22:01 ; Start 01/29/17 at 21:00; Stop 01/30/17 at 11:51; Status DC Insulin Aspart (NovoLOG) 50 units TIDAC SQ Last administered on 01/29/17 22:00 ; Start 01/29/17 at 19:00; Stop 01/30/17 at 11:51; Status DC Non-Formulary Medication 1.2 mg DAILY SQ ; Start 01/30/17 at 09:00; Stop at 09:00; Status DC Pantoprazole Sodium (Protonix) 40 mg DAILYAC PO Last administered on 02/03/17 08:37; Start 01/30/17 at 07:30 Potassium Chloride (Klor-Con) 10 meq DAILYWBKFT PO Last administered on 08:39; Start 01/30/17 at 08:00 Insulin Aspart (NovoLOG) 0-9 UNITS TIDWMEALS SQ Last administered on 02/02/17 17:29; Start 01/30/17 at 08:00 Dextrose (Dextrose 50%-Water Syringe) 12.5 gm PRN Q15MIN PRN IV SEE COMMENTS; Start 01/29/17 at 18:45 Furosemide (Lasix) 40 mg 1X ONCE IVP Last administered on 01/29/17 21:52; Start 01/29/17 at 21:00; Stop 01/29/17 at 21:01; Status DC Furosemide (Lasix) 40 mg BID92 IVP Last administered on 01/30/17 11:01; Start 01/30/17 at 09:00; Stop 01/30/17 at 11:28; Status DC Lidocaine HCl (Xylocaine-Mpf 1% Vial) 2 ml STK-MED ONCE .ROUTE ; Start 01/29/17 at 20:37; Stop 01/29/17 at 20:38; Status DC Dextrose 250 ml @ 1,000 mls/hr 1X ONCE IV ; Start 01/30/17 at 07:45; Stop at 07:59; Status DC Glucose (Insta-Glucose) 15 gm PRN Q15MIN PRN PO LOW BLOOD SUGAR Last administered on 01/30/17 07:55; Start 01/30/17 at 08:00 Glucose (Insta-Glucose) 15 gm STK-MED ONCE .ROUTE ; Start 01/30/17 at 07:52; Stop 01/30/17 at 07:53; Status DC Lidocaine HCl (Xylocaine-Mpf 1% Vial) 2 ml STK-MED ONCE .ROUTE ; Start 01/29/17 at 21:00; Stop 01/30/17 at 09:01; Status DC Furosemide (Lasix) 40 mg DAILY IVP Last administered on 02/03/17 08:39; Start 01/31/17 at 09:00 Aspirin (Ecotrin) 81 mg DAILYWBKFT PO Last administered on 02/03/17 08:38; Start 01/30/17 at 12:30 Insulin Detemir (Levemir) 25 units QHS SQ Last administered on 02/02/17 20:54 ; Start 01/30/17 at 21:00; Stop 02/03/17 at 11:09; Status DC Gabapentin (Neurontin) 400 mg BID PO Last administered on 02/02/17 20:48; Start 01/31/17 at 09:00 Gabapentin (Neurontin) 100 mg 1X ONCE PO Last administered on 01/31/17 01:56 ; Start 01/31/17 at 02:00; Stop 01/31/17 at 02:01; Status DC Enoxaparin Sodium (Lovenox 40mg Syringe) 40 mg QHS SQ Last administered on 02/02 20:49; Start 01/31/17 at 21:00 Methylprednisolone Acetate (DEPO-Medrol 40MG VIAL) 40 mg 1X ONCE IM Last administered on 02/01/17 13:30; Start 02/01/17 at 13:30; Stop 02/01/17 at 13:31 ; Status DC Lidocaine/Sodium Bicarbonate (Buffered Lidocaine 1%) 20 ml 1X ONCE IJ Last administered on 02/01/17 13:30; Start 02/01/17 at 13:30; Stop 02/01/17 at 13:31 ; Status DC Labetalol HCl (Normodyne) 20 mg PRN Q2HR PRN IVP HYPERTENSION, SEE COMMENTS Last administered on 02/01/17 23:59; Start 02/01/17 at 23:30 Insulin Aspart (NovoLOG) 10 units TIDAC SQ Last administered on 02/03/17 08:50 ; Start 02/02/17 at 11:30 Insulin Aspart (NovoLOG VIAL) 15 unit 1X ONCE SQ ; Start 02/02/17 at 08:45; Stop 02/02/17 at 08:46; Status Cancel Insulin Aspart (NovoLOG) 15 units 1X ONCE SQ Last administered on 5/29/17at 08 :42; Start 02/02/17 at 08:45; Stop 02/02/17 at 08:46; Status DC Loperamide HCl (Imodium) 2 mg PRN Q15MIN PRN PO DIARRHEA Last administered on t 09:43; Start 02/02/17 at 11:15 Loperamide HCl (Imodium) 2 mg PRN Q15MIN PRN PO DIARRHEA; Start 02/02/17 at 12: 45 Insulin Detemir (Levemir) 35 units QHS SQ ; Start 02/03/17 at 21:00 Active Scripts Active Xanax (Alprazolam) 0.25 Mg Tablet 0.25 Mg PO QHS PRN Oxycodone-Acetaminophen 10-325 (Oxycodone Hcl/Acetaminophen) 1 Each Tablet 1 Tab PO PRN Q6HRS PRN Hydralazine Hcl 25 Mg Tablet 25 Mg PO BID Carvedilol 12.5 Mg Tablet 12.5 Mg PO BIDWMEALS Fluconazole 100 Mg Tablet 1 Tab PO DAILY Lasix (Furosemide) 40 Mg Tablet 40 Mg PO BID Reported Lisinopril 40 Mg Tablet 1 Tab PO DAILY Humalog (Insulin Lispro) 100 Unit/1 Ml Vial 50 Unit SQ TID Lortab 5-325 mg Tablet (Hydrocodone/Acetaminophen) 1 Each Tablet 1 Tab PO PRN Q6HRS PRN Levemir (Insulin Detemir) 100 Unit/1 Ml Vial 40 Unit SQ HS Victoza 3-Devon (Liraglutide) 0.6 Mg/0.1 Ml Pen.injctr 1.2 Mg SQ DAILY Gabapentin 300 Mg Capsule 1 Cap PO DAILY PRN Vitamin D3 (Cholecalciferol (Vitamin D3)) 5,000 Unit Tablet 1 Tab PO DAILY Glimepiride 4 Mg Tablet 1 Tab PO BID Tramadol Hcl 50 Mg Tablet 2 Tab PO BID Cyclobenzaprine Hcl 10 Mg Tablet 1 Tab PO BID Klor-Con 10 (Potassium Chloride) 10 Meq Tablet.er 1 Tab PO DAILY Omeprazole 20 Mg Capsule. 1 Cap PO DAILY Vitals/I & O Vital Sign - Last 24 Hours 02/02/17 02/02/17 02/02/17 02/02/17 14:24 19:25 20:19 20:48 Temp 98.0 98.7 98.0 98.7 Pulse 83 80 80 Resp 20 20 B/P (MAP) 177/94 (121) 155/68 (97) 155/68 Pulse Ox 97 96 O2 Delivery Room Air Room Air Room Air 02/02/17 02/02/17 02/03/17 02/03/17 20:49 23:00 02:22 07:00 Temp 97.6 98.3 97.6 97.6 98.3 97.6 Pulse 69 92 76 Resp 18 18 20 18 B/P (MAP) 148/72 (97) 162/85 (110) 147/82 (103) Pulse Ox 96 96 97 O2 Delivery Room Air Room Air Room Air Room Air 02/03/17 02/03/17 02/03/17 02/03/17 08:00 08:38 08:38 10:50 Temp 98.2 98.2 Pulse 68 79 88 Resp 17 B/P (MAP) 147/82 147/82 146/71 (96) Pulse Ox 98 O2 Delivery Room Air Room Air Intake and Output 02/02/17 02/02/17 02/03/17 15:00 23:00 07:00 Intake Total 800 ml 720 ml Output Total 600 ml 200 ml Balance 200 ml 520 ml DHRUV LACEY MD February 03, 2017 11:36
--- NOTE | 2017-02-03 13:41 | PDOC ---
CARDIO Progress Notes Date and Time Date of Service 02/03/17 Time of Evaluation 1240 Subjective Subjective: No Chest Pain, No shortness of breath, No Palpitations, Other ( RYAN. Diarrhea improving. ) Vitals Vitals Vital Signs Date Time Temp Pulse Resp B/P (MAP) Pulse Ox O2 Delivery O2 Flow Rate FiO2 02/03/17 10:50 98.2 88 17 146/71 (96) 98 Room Air 98.2 Weight Weight [ ] Input and Output Intake and Output Intake and Output 02/03/17 07:00 Intake Total 1520 ml Output Total 800 ml Balance 720 ml Intake Oral 1520 ml Output Urine Total 800 ml # Bowel Movements 2 Laboratory Labs Laboratory Tests Test 02/02/17 16:36 02/02/17 20:44 02/03/17 05:05 02/03/17 07:53 Glucose (Fingerstick) 277 mg/dL (70-99) 279 mg/dL (70-99) 207 mg/dL (70-99) White Blood Count 8.9 x10^3/uL (4.0-11.0) Red Blood Count 3.60 x10^6/uL (3.50-5.40) Hemoglobin 10.1 g/dL (12.0-15.5) Hematocrit 32.2 % (36.0-47.0) Mean Corpuscular Volume 90 fL (79-100) Mean Corpuscular Hemoglobin 28 pg (25-35) Mean Corpuscular Hemoglobin Concent 32 g/dL (31-37) Red Cell Distribution Width 16.8 % (11.5-14.5) Platelet Count 161 x10^3/uL (140-400) Neutrophils (%) (Auto) 69 % (31-73) Lymphocytes (%) (Auto) 24 % (24-48) Monocytes (%) (Auto) 5 % (0-9) Eosinophils (%) (Auto) 1 % (0-3) Basophils (%) (Auto) 1 % (0-3) Neutrophils # (Auto) 6.2 x10^3uL (1.8-7.7) Lymphocytes # (Auto) 2.1 x10^3/uL (1.0-4.8) Monocytes # (Auto) 0.4 x10^3/uL (0.0-1.1) Eosinophils # (Auto) 0.1 x10^3/uL (0.0-0.7) Basophils # (Auto) 0.1 x10^3/uL (0.0-0.2) Sodium Level 140 mmol/L (136-145) Potassium Level 4.8 mmol/L (3.5-5.1) Chloride Level 108 mmol/L (98-107) Carbon Dioxide Level 23 mmol/L (21-32) Anion Gap 9 (6-14) Blood Urea Nitrogen 39 mg/dL (7-20) Creatinine 2.8 mg/dL (0.6-1.0) Estimated GFR (Cockcroft-Gault) 16.8 Glucose Level 258 mg/dL (70-99) Calcium Level 8.3 mg/dL (8.5-10.1) Test 02/03/17 12:08 Glucose (Fingerstick) 129 mg/dL (70-99) Physical Exam HEENT: Neck Supple W Full Motion Chest: Symmetric LUNGS: Other (diminished bases ) Heart: S1S2, murmurs (2/6 systolic murmur ), irregularly irregular Abdomen: Other (obese ) Extremities: Other (2-3+ bilateral LE edema. chronic venous statis changes to bilateral LE) Neurology: alert, oriented, follow commands Assessment Assessment 1. Acute on chronic diastolic CHF 2. New onset AFIB 3. CKD4 4. HTN 5. DM2/DLP Recommendations Add low-dose BB for rate control. Monitor closely for bradycardia. Convert to Toprol if tolerates well. Continue Eliquis for stroke prophylaxis CR rising; convert IV Lasix to oral. EVON SEYMOUR APRN February 03, 2017 13:41
[2017-02-03 15:02] VITALS: BP 122/62
[2017-02-03 19:50] VITALS: BP 142/77
[2017-02-03] MEDS: METOPROLOL TART IMMED RELEASE 25 MG TABLET. PO SCH (20:30)
[2017-02-03] MEDS: oxyCODONE/APAP 10/325 1 TAB TABLET PO PRN (20:31)
[2017-02-03] MEDS: ENOXAPARIN 40 MG/0.4 ML SYRINGE. SQ SCH (20:32)
[2017-02-03] MEDS: INSULIN DETEMIR 300 UNITS/3 ML INSULN.PEN. SQ SCH (22:30)
[2017-02-03 23:25] VITALS: BP 98/57
[2017-02-04] MEDS: LOPERAMIDE 2 MG CAPSULE PO PRN (01:35)
[2017-02-04 03:10] VITALS: BP 110/56
[2017-02-04 04:12] LABS: BASO % 1 % (0-3); EOS % 4 % (0-3); HEMATOCRIT 31.1 % (36.0-47.0); HEMOGLOBIN 9.8 g/dL (12.0-15.5); LYMPH # 3.1 x10^3/uL (1.0-4.8); LYMPH % 34 % (24-48); MEAN CORPUSCULAR HEMOGLOBIN 28 pg (25-35); MEAN CORPUSCULAR HGB CONC 32 g/dL (31-37); MEAN CORPUSCULAR VOLUME 89 fL (79-100); MONO % 5 % (0-9); NEUT % 56 % (31-73); PLATELET COUNT 157 x10^3/uL (140-400); RED BLOOD COUNT 3.49 x10^6/uL (3.50-5.40); RED CELL DISTRIBUTION WIDTH 16.6 % (11.5-14.5)
[2017-02-04 04:36] LABS: GFR 15.5; POTASSIUM 4.8 mmol/L (3.5-5.1)
[2017-02-04 07:00] VITALS: BP 129/70
[2017-02-04] MEDS: INSULIN ASPART 300 UNITS/3 ML INSULN.PEN SQ SCH ×6 (07:30→17:00)
[2017-02-04] MEDS: GLIMEPIRIDE 2 MG TABLET. PO SCH ×2 (08:00→17:00)
[2017-02-04] MEDS: PANTOPRAZOLE 40 MG TABLET.DR. PO SCH (08:53)
[2017-02-04] MEDS: FLUCONAZOLE 100 MG TABLET. PO SCH (08:53)
[2017-02-04] MEDS: ASPIRIN ENTERIC COATED 81 MG TABLET.DR. PO SCH (08:53)
[2017-02-04] MEDS: LISINOPRIL 40 MG TABLET. PO SCH (08:54)
[2017-02-04] MEDS: hydrALAZINE 25 MG TABLET PO SCH ×2 (08:54→21:16)
[2017-02-04] MEDS: CHOLECALCIFEROL (VITAMIN D3) 5,000 UNIT CAPSULE PO SCH (08:55)
[2017-02-04] MEDS: CYCLOBENZAPRINE 10 MG TABLET. PO SCH ×2 (08:55→21:00)
[2017-02-04] MEDS: GABAPENTIN 400 MG CAPSULE. PO SCH ×2 (08:58→21:00)
[2017-02-04] MEDS: METOPROLOL TART IMMED RELEASE 25 MG TABLET. PO SCH ×2 (08:58→21:16)
[2017-02-04] MEDS: POTASSIUM CHLORIDE 10 MEQ TABLET.ER. PO SCH (08:59)
[2017-02-04] MEDS ORDERED: FUROSEMIDE 40 MG TABLET. PO SCH (09:00)
[2017-02-04 11:00] VITALS: BP 122/70
--- NOTE | 2017-02-04 11:24 | PDOC ---
Subjective: Subjective: Took Imodium yesterday, had diarrhea twice last night, took Imodium again, no stools since. No abd pain. Objective: Objective: D/w RN - possible cath tomorrow, renal to see today. Diarrhea seems better. Vital Signs: Vital Signs Date Time Temp Pulse Resp B/P (MAP) Pulse Ox O2 Delivery O2 Flow Rate FiO2 02/04/17 11:00 97.9 56 20 122/70 (87) 97 Room Air 97.9 Labs: Laboratory Tests Test 02/03/17 12:08 02/03/17 17:05 02/03/17 21:07 02/04/17 03:30 Glucose (Fingerstick) 129 mg/dL 71 mg/dL 149 mg/dL White Blood Count 9.0 x10^3/uL Red Blood Count 3.49 x10^6/uL Hemoglobin 9.8 g/dL Hematocrit 31.1 % Mean Corpuscular Volume 89 fL Mean Corpuscular Hemoglobin 28 pg Mean Corpuscular Hemoglobin Concent 32 g/dL Red Cell Distribution Width 16.6 % Platelet Count 157 x10^3/uL Neutrophils (%) (Auto) 56 % Lymphocytes (%) (Auto) 34 % Monocytes (%) (Auto) 5 % Eosinophils (%) (Auto) 4 % Basophils (%) (Auto) 1 % Neutrophils # (Auto) 5.1 x10^3uL Lymphocytes # (Auto) 3.1 x10^3/uL Monocytes # (Auto) 0.5 x10^3/uL Eosinophils # (Auto) 0.3 x10^3/uL Basophils # (Auto) 0.0 x10^3/uL Sodium Level 143 mmol/L Potassium Level 4.8 mmol/L Chloride Level 111 mmol/L Carbon Dioxide Level 24 mmol/L Anion Gap 8 Blood Urea Nitrogen 45 mg/dL Creatinine 3.0 mg/dL Estimated GFR (Cockcroft-Gault) 15.5 Glucose Level 139 mg/dL Calcium Level 8.0 mg/dL Test 02/04/17 07:54 Glucose (Fingerstick) 76 mg/dL PE: GEN: NAD, laying in bed LUNGS: clear anteriorly ABD: obese, BS+, non-tender EXTREMITY: BLE edema NEURO/PSYCH: A & O 3 A/P: CHF, CKD -considering heart cath but worsening renal function Diarrhea -C Diff neg, Giardia pending, stool culture uncollected -trying Imodium -?FAP, s/p colectomy, h/o rectal adenoma in 2015 S/p Serafin shunt, staple line broken down on EGD in 2015 -on PPI -- Will try more frequent Imodium dosing. D/w RN. ANALI JOHNSON February 04, 2017 11:24
--- NOTE | 2017-02-04 11:34 | PDOC ---
CARDIO Progress Notes Date and Time Date of Service 02/04/17 Time of Evaluation 1010 Subjective Subjective: No Chest Pain, No Palpitations, Other (Diarrhea better; continues to have some RYAN. ) Vitals Vitals Vital Signs Date Time Temp Pulse Resp B/P (MAP) Pulse Ox O2 Delivery O2 Flow Rate FiO2 02/04/17 11:00 97.9 56 20 122/70 (87) 97 Room Air 97.9 Weight Weight [ ] Input and Output Intake and Output Intake and Output 02/04/17 07:00 Intake Total 3240 ml Output Total 600 ml Balance 2640 ml Intake Oral 3240 ml Output Urine Total 600 ml # Bowel Movements 3 Laboratory Labs Laboratory Tests Test 02/03/17 12:08 02/03/17 17:05 02/03/17 21:07 02/04/17 03:30 Glucose (Fingerstick) 129 mg/dL (70-99) 71 mg/dL (70-99) 149 mg/dL (70-99) White Blood Count 9.0 x10^3/uL (4.0-11.0) Red Blood Count 3.49 x10^6/uL (3.50-5.40) Hemoglobin 9.8 g/dL (12.0-15.5) Hematocrit 31.1 % (36.0-47.0) Mean Corpuscular Volume 89 fL (79-100) Mean Corpuscular Hemoglobin 28 pg (25-35) Mean Corpuscular Hemoglobin Concent 32 g/dL (31-37) Red Cell Distribution Width 16.6 % (11.5-14.5) Platelet Count 157 x10^3/uL (140-400) Neutrophils (%) (Auto) 56 % (31-73) Lymphocytes (%) (Auto) 34 % (24-48) Monocytes (%) (Auto) 5 % (0-9) Eosinophils (%) (Auto) 4 % (0-3) Basophils (%) (Auto) 1 % (0-3) Neutrophils # (Auto) 5.1 x10^3uL (1.8-7.7) Lymphocytes # (Auto) 3.1 x10^3/uL (1.0-4.8) Monocytes # (Auto) 0.5 x10^3/uL (0.0-1.1) Eosinophils # (Auto) 0.3 x10^3/uL (0.0-0.7) Basophils # (Auto) 0.0 x10^3/uL (0.0-0.2) Sodium Level 143 mmol/L (136-145) Potassium Level 4.8 mmol/L (3.5-5.1) Chloride Level 111 mmol/L (98-107) Carbon Dioxide Level 24 mmol/L (21-32) Anion Gap 8 (6-14) Blood Urea Nitrogen 45 mg/dL (7-20) Creatinine 3.0 mg/dL (0.6-1.0) Estimated GFR (Cockcroft-Gault) 15.5 Glucose Level 139 mg/dL (70-99) Calcium Level 8.0 mg/dL (8.5-10.1) Test 02/04/17 07:54 Glucose (Fingerstick) 76 mg/dL (70-99) Physical Exam HEENT: Neck Supple W Full Motion Chest: Symmetric LUNGS: Other (diminished bases ) Heart: S1S2, murmurs (2/6 systolic murmur ), irregularly irregular Abdomen: Other (obese ) Extremities: Other (2-3+ bilateral LE edema. chronic venous statis changes to bilateral LE) Neurology: alert, oriented, follow commands Assessment Assessment 1. Acute on chronic diastolic CHF; LVEF 60-65%- better compensated 2. New onset AFIB; rate controlled 3. CKD4 4. HTN; controlled 5. DM2/DLP Recommendations Continue low-dose BB for rate control. Monitor tele for bradycardia Eliquis for stroke prophylaxis CR rising. Lasix gtt managed by nephrology. Continue supportive care. EVON SEYMOUR APRN February 04, 2017 11:34
--- NOTE | 2017-02-04 14:13 | PDOC ---
PROGRESS NOTES Chief Complaint Chief Complaint 1. Acute-on chronic congestive heart failure, likely systolic versus diastolic or combined. 2. Old lymphedema. 3. Obesity. 4. Diabetes type 2. Unknown Hgb A1c. 6. Chronic kidney disease. 7. Anemia of chronic disease. 8. Limited mobility, wheelchair-bound. 9. Chest heaviness. 10. Diarrhea x 2 weeks, hx subtotal colectomy (family hx Familial polyposis?) History of Present Illness History of Present Illness Legs actually better than on admission BM now pudding consistency, not watery Working with PT CLaims feels better DOes not ff up with renal clinic as OP No CP C diff is neg CRea now high, on lasix 40 IV daily (LE edema and GI loss) - cards would prefer to cont this but with worsening creatinine, advised renal consult CReatinine now peaks at 3.0, good UO PLAN: COnt Imodium q 2 prn cont to monitor stools Renal consult Shifted to 60 PO qD of lasix Renal panel again hollie (crea 3.0) PT - ok for HH Need to watch out for worsening renal fcn Vitals Vitals Vital Signs Date Time Temp Pulse Resp B/P (MAP) Pulse Ox O2 Delivery O2 Flow Rate FiO2 02/04/17 11:00 97.9 56 20 122/70 (87) 97 Room Air 97.9 Physical Exam General: Alert, Oriented X3, Cooperative, No acute distress Heart: Regular rate, Normal S1, Normal S2, No murmurs Lungs: Clear, Other (no wheezing) Abdomen: Normal bowel sounds, Soft, No tenderness, No hepatosplenomegaly, No masses, Other Extremities: No cyanosis, Other (chronic lymphedema, LE's) Skin: No significant lesion Labs LABS Laboratory Tests Test 02/03/17 17:05 02/03/17 21:07 02/04/17 03:30 02/04/17 07:54 Glucose (Fingerstick) 71 mg/dL (70-99) 149 mg/dL (70-99) 76 mg/dL (70-99) White Blood Count 9.0 x10^3/uL (4.0-11.0) Red Blood Count 3.49 x10^6/uL (3.50-5.40) Hemoglobin 9.8 g/dL (12.0-15.5) Hematocrit 31.1 % (36.0-47.0) Mean Corpuscular Volume 89 fL (79-100) Mean Corpuscular Hemoglobin 28 pg (25-35) Mean Corpuscular Hemoglobin Concent 32 g/dL (31-37) Red Cell Distribution Width 16.6 % (11.5-14.5) Platelet Count 157 x10^3/uL (140-400) Neutrophils (%) (Auto) 56 % (31-73) Lymphocytes (%) (Auto) 34 % (24-48) Monocytes (%) (Auto) 5 % (0-9) Eosinophils (%) (Auto) 4 % (0-3) Basophils (%) (Auto) 1 % (0-3) Neutrophils # (Auto) 5.1 x10^3uL (1.8-7.7) Lymphocytes # (Auto) 3.1 x10^3/uL (1.0-4.8) Monocytes # (Auto) 0.5 x10^3/uL (0.0-1.1) Eosinophils # (Auto) 0.3 x10^3/uL (0.0-0.7) Basophils # (Auto) 0.0 x10^3/uL (0.0-0.2) Sodium Level 143 mmol/L (136-145) Potassium Level 4.8 mmol/L (3.5-5.1) Chloride Level 111 mmol/L (98-107) Carbon Dioxide Level 24 mmol/L (21-32) Anion Gap 8 (6-14) Blood Urea Nitrogen 45 mg/dL (7-20) Creatinine 3.0 mg/dL (0.6-1.0) Estimated GFR (Cockcroft-Gault) 15.5 Glucose Level 139 mg/dL (70-99) Calcium Level 8.0 mg/dL (8.5-10.1) Test 02/04/17 11:43 Glucose (Fingerstick) 160 mg/dL (70-99) Review of Systems Review of Systems loose stools ,leg swelling, no inc in SOA or cp, or abd pain Comment Review of Relevant I have reviewed the following items kai (where applicable) has been applied. Labs Laboratory Tests Test 02/02/17 16:36 02/02/17 20:44 02/03/17 05:05 02/03/17 07:53 Glucose (Fingerstick) 277 mg/dL (70-99) 279 mg/dL (70-99) 207 mg/dL (70-99) White Blood Count 8.9 x10^3/uL (4.0-11.0) Red Blood Count 3.60 x10^6/uL (3.50-5.40) Hemoglobin 10.1 g/dL (12.0-15.5) Hematocrit 32.2 % (36.0-47.0) Mean Corpuscular Volume 90 fL (79-100) Mean Corpuscular Hemoglobin 28 pg (25-35) Mean Corpuscular Hemoglobin Concent 32 g/dL (31-37) Red Cell Distribution Width 16.8 % (11.5-14.5) Platelet Count 161 x10^3/uL (140-400) Neutrophils (%) (Auto) 69 % (31-73) Lymphocytes (%) (Auto) 24 % (24-48) Monocytes (%) (Auto) 5 % (0-9) Eosinophils (%) (Auto) 1 % (0-3) Basophils (%) (Auto) 1 % (0-3) Neutrophils # (Auto) 6.2 x10^3uL (1.8-7.7) Lymphocytes # (Auto) 2.1 x10^3/uL (1.0-4.8) Monocytes # (Auto) 0.4 x10^3/uL (0.0-1.1) Eosinophils # (Auto) 0.1 x10^3/uL (0.0-0.7) Basophils # (Auto) 0.1 x10^3/uL (0.0-0.2) Sodium Level 140 mmol/L (136-145) Potassium Level 4.8 mmol/L (3.5-5.1) Chloride Level 108 mmol/L (98-107) Carbon Dioxide Level 23 mmol/L (21-32) Anion Gap 9 (6-14) Blood Urea Nitrogen 39 mg/dL (7-20) Creatinine 2.8 mg/dL (0.6-1.0) Estimated GFR (Cockcroft-Gault) 16.8 Glucose Level 258 mg/dL (70-99) Calcium Level 8.3 mg/dL (8.5-10.1) Test 02/03/17 12:08 02/03/17 17:05 02/03/17 21:07 02/04/17 03:30 Glucose (Fingerstick) 129 mg/dL (70-99) 71 mg/dL (70-99) 149 mg/dL (70-99) White Blood Count 9.0 x10^3/uL (4.0-11.0) Red Blood Count 3.49 x10^6/uL (3.50-5.40) Hemoglobin 9.8 g/dL (12.0-15.5) Hematocrit 31.1 % (36.0-47.0) Mean Corpuscular Volume 89 fL (79-100) Mean Corpuscular Hemoglobin 28 pg (25-35) Mean Corpuscular Hemoglobin Concent 32 g/dL (31-37) Red Cell Distribution Width 16.6 % (11.5-14.5) Platelet Count 157 x10^3/uL (140-400) Neutrophils (%) (Auto) 56 % (31-73) Lymphocytes (%) (Auto) 34 % (24-48) Monocytes (%) (Auto) 5 % (0-9) Eosinophils (%) (Auto) 4 % (0-3) Basophils (%) (Auto) 1 % (0-3) Neutrophils # (Auto) 5.1 x10^3uL (1.8-7.7) Lymphocytes # (Auto) 3.1 x10^3/uL (1.0-4.8) Monocytes # (Auto) 0.5 x10^3/uL (0.0-1.1) Eosinophils # (Auto) 0.3 x10^3/uL (0.0-0.7) Basophils # (Auto) 0.0 x10^3/uL (0.0-0.2) Sodium Level 143 mmol/L (136-145) Potassium Level 4.8 mmol/L (3.5-5.1) Chloride Level 111 mmol/L (98-107) Carbon Dioxide Level 24 mmol/L (21-32) Anion Gap 8 (6-14) Blood Urea Nitrogen 45 mg/dL (7-20) Creatinine 3.0 mg/dL (0.6-1.0) Estimated GFR (Cockcroft-Gault) 15.5 Glucose Level 139 mg/dL (70-99) Calcium Level 8.0 mg/dL (8.5-10.1) Test 02/04/17 07:54 02/04/17 11:43 Glucose (Fingerstick) 76 mg/dL (70-99) 160 mg/dL (70-99) Laboratory Tests Test 02/03/17 17:05 02/03/17 21:07 02/04/17 03:30 02/04/17 07:54 Glucose (Fingerstick) 71 mg/dL (70-99) 149 mg/dL (70-99) 76 mg/dL (70-99) White Blood Count 9.0 x10^3/uL (4.0-11.0) Red Blood Count 3.49 x10^6/uL (3.50-5.40) Hemoglobin 9.8 g/dL (12.0-15.5) Hematocrit 31.1 % (36.0-47.0) Mean Corpuscular Volume 89 fL (79-100) Mean Corpuscular Hemoglobin 28 pg (25-35) Mean Corpuscular Hemoglobin Concent 32 g/dL (31-37) Red Cell Distribution Width 16.6 % (11.5-14.5) Platelet Count 157 x10^3/uL (140-400) Neutrophils (%) (Auto) 56 % (31-73) Lymphocytes (%) (Auto) 34 % (24-48) Monocytes (%) (Auto) 5 % (0-9) Eosinophils (%) (Auto) 4 % (0-3) Basophils (%) (Auto) 1 % (0-3) Neutrophils # (Auto) 5.1 x10^3uL (1.8-7.7) Lymphocytes # (Auto) 3.1 x10^3/uL (1.0-4.8) Monocytes # (Auto) 0.5 x10^3/uL (0.0-1.1) Eosinophils # (Auto) 0.3 x10^3/uL (0.0-0.7) Basophils # (Auto) 0.0 x10^3/uL (0.0-0.2) Sodium Level 143 mmol/L (136-145) Potassium Level 4.8 mmol/L (3.5-5.1) Chloride Level 111 mmol/L (98-107) Carbon Dioxide Level 24 mmol/L (21-32) Anion Gap 8 (6-14) Blood Urea Nitrogen 45 mg/dL (7-20) Creatinine 3.0 mg/dL (0.6-1.0) Estimated GFR (Cockcroft-Gault) 15.5 Glucose Level 139 mg/dL (70-99) Calcium Level 8.0 mg/dL (8.5-10.1) Test 02/04/17 11:43 Glucose (Fingerstick) 160 mg/dL (70-99) Medications Current Medications Zolpidem Tartrate (Ambien) 5 mg PRN QHS PRN PO INSOMNIA, MAY REPEAT IN 1HR; Start 01/29/17 at 18:45 Oxycodone HCl (Roxicodone) 5 mg PRN Q3HRS PRN PO BREAKTHROUGH PAIN Last administered on 02/01/17 11:51; Start 01/29/17 at 18:45 Acetaminophen (Tylenol) 650 mg PRN Q6HRS PRN PO Headaches, Temp > 101.5F; Start 01/29/17 at 18:45 Ibuprofen (Motrin) 400 mg PRN Q6HRS PRN PO MILD PAIN; Start 01/29/17 at 18:45 Docusate Sodium (Colace) 100 mg BID PO Last administered on 02/01/17 08:42; Start 01/29/17 at 21:00; Stop 02/02/17 at 11:08; Status DC Magnesium Hydroxide (Milk Of Magnesia) 2,400 mg PRN Q12HR PRN PO CONSTIPATION; Start 01/29/17 at 18:45 Lactulose 20 gm PRN Q12HR PRN PO CONSTIPATION; Start 01/29/17 at 18:45 Bisacodyl (Dulcolax Supp) 10 mg PRN DAILY PRN DC CONSTIPATION; Start 01/29/17 at 18:45; Stop 02/02/17 at 11:08; Status DC Enoxaparin Sodium (Lovenox 40mg Syringe) 40 mg Q12HR SQ Last administered on 21:09; Start 01/29/17 at 22:00; Stop 01/31/17 at 07:12; Status DC Alprazolam (Xanax) 0.25 mg QHS PRN PO ANXIETY / AGITATION; Start 01/29/17 at 18 :45 Carvedilol (Coreg) 12.5 mg BIDWMEALS PO Last administered on 01/29/17 21:51; Start 01/29/17 at 19:00; Stop 01/30/17 at 11:28; Status DC Cyclobenzaprine HCl (Flexeril) 10 mg BID PO Last administered on 02/04/17 08: 55; Start 01/29/17 at 21:00 Fluconazole (Diflucan) 100 mg DAILY PO Last administered on 02/04/17 08:53; Start 01/30/17 at 09:00 Furosemide (Lasix) 40 mg BID92 PO ; Start 01/30/17 at 09:00; Stop 01/30/17 at 09 :00; Status DC Hydralazine HCl (Apresoline) 25 mg BID PO Last administered on 02/04/17 08:54 ; Start 01/29/17 at 21:00 Acetaminophen/ Hydrocodone Bitart (Lortab 5/325) 1 tab PRN Q6HRS PRN PO MILD PAIN Last administered on 01/29/17 22:31; Start 01/29/17 at 18:45 Lisinopril (Prinivil) 40 mg DAILY PO Last administered on 02/04/17 08:54; Start 01/30/17 at 09:00 Oxycodone/ Acetaminophen (Percocet 10/325) 1 tab PRN Q6HRS PRN PO MODERATE- SEVERE PAIN Last administered on 02/03/17 20:31; Start 01/29/17 at 18:45 Tramadol HCl (Ultram) 100 mg BID PO Last administered on 01/29/17 21:50; Start 01/29/17 at 21:00; Stop 01/30/17 at 11:51; Status DC Vitamin D (Vitamin D3) 5,000 unit DAILY PO Last administered on 02/04/17 08:55 ; Start 01/30/17 at 09:00 Gabapentin (Neurontin) 300 mg PRN DAILY PRN PO NERVE PAIN Last administered on 02/01/17 11:51; Start 01/29/17 at 21:00 Glimepiride (Amaryl) 4 mg BIDWMEALS PO Last administered on 02/03/17 08:38; Start 01/30/17 at 09:00 Insulin Detemir (Levemir) 40 units QHS SQ Last administered on 01/29/17 22:01 ; Start 01/29/17 at 21:00; Stop 01/30/17 at 11:51; Status DC Insulin Aspart (NovoLOG) 50 units TIDAC SQ Last administered on 01/29/17 22:00 ; Start 01/29/17 at 19:00; Stop 01/30/17 at 11:51; Status DC Non-Formulary Medication 1.2 mg DAILY SQ ; Start 01/30/17 at 09:00; Stop at 09:00; Status DC Pantoprazole Sodium (Protonix) 40 mg DAILYAC PO Last administered on 02/04/17 08:53; Start 01/30/17 at 07:30 Potassium Chloride (Klor-Con) 10 meq DAILYWBKFT PO Last administered on 08:59; Start 01/30/17 at 08:00 Insulin Aspart (NovoLOG) 0-9 UNITS TIDWMEALS SQ Last administered on 02/02/17 17:29; Start 01/30/17 at 08:00 Dextrose (Dextrose 50%-Water Syringe) 12.5 gm PRN Q15MIN PRN IV SEE COMMENTS; Start 01/29/17 at 18:45 Furosemide (Lasix) 40 mg 1X ONCE IVP Last administered on 01/29/17 21:52; Start 01/29/17 at 21:00; Stop 01/29/17 at 21:01; Status DC Furosemide (Lasix) 40 mg BID92 IVP Last administered on 01/30/17 11:01; Start 01/30/17 at 09:00; Stop 01/30/17 at 11:28; Status DC Lidocaine HCl (Xylocaine-Mpf 1% Vial) 2 ml STK-MED ONCE .ROUTE ; Start 01/29/17 at 20:37; Stop 01/29/17 at 20:38; Status DC Dextrose 250 ml @ 1,000 mls/hr 1X ONCE IV ; Start 01/30/17 at 07:45; Stop at 07:59; Status DC Glucose (Insta-Glucose) 15 gm PRN Q15MIN PRN PO LOW BLOOD SUGAR Last administered on 01/30/17 07:55; Start 01/30/17 at 08:00 Glucose (Insta-Glucose) 15 gm STK-MED ONCE .ROUTE ; Start 01/30/17 at 07:52; Stop 01/30/17 at 07:53; Status DC Lidocaine HCl (Xylocaine-Mpf 1% Vial) 2 ml STK-MED ONCE .ROUTE ; Start 01/29/17 at 21:00; Stop 01/30/17 at 09:01; Status DC Furosemide (Lasix) 40 mg DAILY IVP Last administered on 02/03/17 08:39; Start 01/31/17 at 09:00; Stop 02/03/17 at 15:50; Status DC Aspirin (Ecotrin) 81 mg DAILYWBKFT PO Last administered on 02/04/17 08:53; Start 01/30/17 at 12:30 Insulin Detemir (Levemir) 25 units QHS SQ Last administered on 02/02/17 20:54 ; Start 01/30/17 at 21:00; Stop 02/03/17 at 11:09; Status DC Gabapentin (Neurontin) 400 mg BID PO Last administered on 02/03/17 20:31; Start 01/31/17 at 09:00 Gabapentin (Neurontin) 100 mg 1X ONCE PO Last administered on 01/31/17 01:56 ; Start 01/31/17 at 02:00; Stop 01/31/17 at 02:01; Status DC Enoxaparin Sodium (Lovenox 40mg Syringe) 40 mg QHS SQ Last administered on 02/03 20:32; Start 01/31/17 at 21:00; Stop 02/04/17 at 09:32; Status DC Methylprednisolone Acetate (DEPO-Medrol 40MG VIAL) 40 mg 1X ONCE IM Last administered on 02/01/17 13:30; Start 02/01/17 at 13:30; Stop 02/01/17 at 13:31 ; Status DC Lidocaine/Sodium Bicarbonate (Buffered Lidocaine 1%) 20 ml 1X ONCE IJ Last administered on 02/01/17 13:30; Start 02/01/17 at 13:30; Stop 02/01/17 at 13:31 ; Status DC Labetalol HCl (Normodyne) 20 mg PRN Q2HR PRN IVP HYPERTENSION, SEE COMMENTS Last administered on 02/01/17 23:59; Start 02/01/17 at 23:30; Stop 02/03/17 at 15:47; Status DC Insulin Aspart (NovoLOG) 10 units TIDAC SQ Last administered on 02/04/17 12:35 ; Start 02/02/17 at 11:30 Insulin Aspart (NovoLOG VIAL) 15 unit 1X ONCE SQ ; Start 02/02/17 at 08:45; Stop 02/02/17 at 08:46; Status Cancel Insulin Aspart (NovoLOG) 15 units 1X ONCE SQ Last administered on 02/02/17 08 :42; Start 02/02/17 at 08:45; Stop 02/02/17 at 08:46; Status DC Loperamide HCl (Imodium) 2 mg PRN Q15MIN PRN PO DIARRHEA Last administered on 09:43; Start 02/02/17 at 11:15; Stop 02/03/17 at 12:31; Status DC Loperamide HCl (Imodium) 2 mg PRN Q15MIN PRN PO DIARRHEA Last administered on 01:35; Start 02/02/17 at 12:45; Stop 02/04/17 at 14:00; Status DC Insulin Detemir (Levemir) 35 units QHS SQ Last administered on 02/03/17 22:30 ; Start 02/03/17 at 21:00 Metoprolol Tartrate (Lopressor) 12.5 mg BID PO Last administered on 02/04/17 08:58; Start 02/03/17 at 21:00 Furosemide (Lasix) 60 mg DAILY PO Last administered on 02/04/17 08:57; Start 02/04/17 at 09:00 Heparin Sodium (Porcine) (Heparin Sq) 5,000 unit Q8HRS SQ ; Start 02/04/17 at 14 :00 Loperamide HCl (Imodium) 2 mg TID PO ; Start 02/04/17 at 14:00 Active Scripts Active Xanax (Alprazolam) 0.25 Mg Tablet 0.25 Mg PO QHS PRN Oxycodone-Acetaminophen 10-325 (Oxycodone Hcl/Acetaminophen) 1 Each Tablet 1 Tab PO PRN Q6HRS PRN Hydralazine Hcl 25 Mg Tablet 25 Mg PO BID Carvedilol 12.5 Mg Tablet 12.5 Mg PO BIDWMEALS Fluconazole 100 Mg Tablet 1 Tab PO DAILY Lasix (Furosemide) 40 Mg Tablet 40 Mg PO BID Reported Lisinopril 40 Mg Tablet 1 Tab PO DAILY Humalog (Insulin Lispro) 100 Unit/1 Ml Vial 50 Unit SQ TID Lortab 5-325 mg Tablet (Hydrocodone/Acetaminophen) 1 Each Tablet 1 Tab PO PRN Q6HRS PRN Levemir (Insulin Detemir) 100 Unit/1 Ml Vial 40 Unit SQ HS Victoza 3-Devon (Liraglutide) 0.6 Mg/0.1 Ml Pen.injctr 1.2 Mg SQ DAILY Gabapentin 300 Mg Capsule 1 Cap PO DAILY PRN Vitamin D3 (Cholecalciferol (Vitamin D3)) 5,000 Unit Tablet 1 Tab PO DAILY Glimepiride 4 Mg Tablet 1 Tab PO BID Tramadol Hcl 50 Mg Tablet 2 Tab PO BID Cyclobenzaprine Hcl 10 Mg Tablet 1 Tab PO BID Klor-Con 10 (Potassium Chloride) 10 Meq Tablet.er 1 Tab PO DAILY Omeprazole 20 Mg Capsule.dr 1 Cap PO DAILY Vitals/I & O Vital Sign - Last 24 Hours 02/03/17 02/03/17 02/03/17 02/03/17 15:02 19:50 19:52 20:30 Temp 97.9 98.2 97.9 98.2 Pulse 77 75 75 Resp 18 18 B/P (MAP) 122/62 (82) 142/77 (98) 142/77 Pulse Ox 97 98 O2 Delivery Room Air Room Air Room Air 02/03/17 02/03/17 02/03/17 02/04/17 20:31 20:31 23:25 03:10 Temp 98.3 98.4 98.3 98.4 Pulse 75 74 65 Resp 16 18 20 B/P (MAP) 142/77 98/57 (71) 110/56 (74) Pulse Ox 95 96 O2 Delivery Room Air Room Air Room Air 02/04/17 02/04/17 02/04/17 02/04/17 07:00 08:00 08:54 08:54 Temp 97.7 97.7 Pulse 72 64 64 Resp 20 B/P (MAP) 129/70 (89) 129/40 129/70 Pulse Ox 98 O2 Delivery Room Air Room Air 02/04/17 02/04/17 08:58 11:00 Temp 97.9 97.9 Pulse 64 56 Resp 20 B/P (MAP) 129/70 122/70 (87) Pulse Ox 97 O2 Delivery Room Air Intake and Output 02/03/17 02/03/17 02/04/17 15:00 23:00 07:00 Intake Total 2520 ml 720 ml Output Total 600 ml Balance 2520 ml 120 ml DHRUV LACEY MD February 04, 2017 14:13
[2017-02-04] MEDS ORDERED: MAGNESIUM SULFATE 2GM 50 ML IV PRN (14:30)
[2017-02-04] MEDS ORDERED: FUROSEMIDE INJ 100 MG in IV NORMAL SALINE 100ML 100 ML IV PRN (14:30)
--- NOTE | 2017-02-04 14:37 | PDOC2 ---
CONSULT Date of Consult Date of Consult DATE: 02/04/17 TIME: 14:17 Reason for Consult Reason for Consult: CKD IV/ V Referring Physician Referring Physician: Dr Argueta Identification/Chief Complaint Chief Complaint SOB and worsening edema Problems: Source Source: Chart review, Patient History of Present Illness Reason for Visit: as dictated Past Medical History Cardiovascular: CHF, HTN, Hyperlipidemia Pulmonary: Other (MATTHEW) CENTRAL NERVOUS SYSTEM: Periperal neuropathy Heme/Onc: Anemia NOS Psych: Anxiety, Depression Musculoskeletal: Osteoarthritis Rheumatologic: Gout Renal/: Chronic renal insuff Endocrine: Diabetes, Hyperparathyroidism (at least elevated PTH in past) Past Surgical History Past Surgical History: Appendectomy, Cholecystectomy, , Hernia Repair (with mesh (subsequently removed)), Hysterectomy, Colectomy, Other (Bilateral CTR's, Serafin Shunt) Family History Family History: Cancer Social History No ALCOHOL: none Drugs: None Lives: with Family Domestic Violence: Neg Current Medications Current Medications Current Medications Zolpidem Tartrate (Ambien) 5 mg PRN QHS PRN PO INSOMNIA, MAY REPEAT IN 1HR; Start 01/29/17 at 18:45 Oxycodone HCl (Roxicodone) 5 mg PRN Q3HRS PRN PO BREAKTHROUGH PAIN Last administered on 02/01/17 11:51; Start 01/29/17 at 18:45 Acetaminophen (Tylenol) 650 mg PRN Q6HRS PRN PO Headaches, Temp > 101.5F; Start 01/29/17 at 18:45 Ibuprofen (Motrin) 400 mg PRN Q6HRS PRN PO MILD PAIN; Start 01/29/17 at 18:45 Docusate Sodium (Colace) 100 mg BID PO Last administered on 02/01/17 08:42; Start 01/29/17 at 21:00; Stop 02/02/17 at 11:08; Status DC Magnesium Hydroxide (Milk Of Magnesia) 2,400 mg PRN Q12HR PRN PO CONSTIPATION; Start 01/29/17 at 18:45 Lactulose 20 gm PRN Q12HR PRN PO CONSTIPATION; Start 01/29/17 at 18:45 Bisacodyl (Dulcolax Supp) 10 mg PRN DAILY PRN NE CONSTIPATION; Start 01/29/17 at 18:45; Stop 02/02/17 at 11:08; Status DC Enoxaparin Sodium (Lovenox 40mg Syringe) 40 mg Q12HR SQ Last administered on 21:09; Start 01/29/17 at 22:00; Stop 01/31/17 at 07:12; Status DC Alprazolam (Xanax) 0.25 mg QHS PRN PO ANXIETY / AGITATION; Start 01/29/17 at 18 :45 Carvedilol (Coreg) 12.5 mg BIDWMEALS PO Last administered on 01/29/17 21:51; Start 01/29/17 at 19:00; Stop 01/30/17 at 11:28; Status DC Cyclobenzaprine HCl (Flexeril) 10 mg BID PO Last administered on 02/04/17 08: 55; Start 01/29/17 at 21:00 Fluconazole (Diflucan) 100 mg DAILY PO Last administered on 02/04/17 08:53; Start 01/30/17 at 09:00 Furosemide (Lasix) 40 mg BID92 PO ; Start 01/30/17 at 09:00; Stop 01/30/17 at 09 :00; Status DC Hydralazine HCl (Apresoline) 25 mg BID PO Last administered on 02/04/17 08:54 ; Start 01/29/17 at 21:00 Acetaminophen/ Hydrocodone Bitart (Lortab 5/325) 1 tab PRN Q6HRS PRN PO MILD PAIN Last administered on 01/29/17 22:31; Start 01/29/17 at 18:45 Lisinopril (Prinivil) 40 mg DAILY PO Last administered on 02/04/17 08:54; Start 01/30/17 at 09:00 Oxycodone/ Acetaminophen (Percocet 10/325) 1 tab PRN Q6HRS PRN PO MODERATE- SEVERE PAIN Last administered on 02/03/17 20:31; Start 01/29/17 at 18:45 Tramadol HCl (Ultram) 100 mg BID PO Last administered on 01/29/17 21:50; Start 01/29/17 at 21:00; Stop 01/30/17 at 11:51; Status DC Vitamin D (Vitamin D3) 5,000 unit DAILY PO Last administered on 02/04/17 08:55 ; Start 01/30/17 at 09:00 Gabapentin (Neurontin) 300 mg PRN DAILY PRN PO NERVE PAIN Last administered on 02/01/17 11:51; Start 01/29/17 at 21:00 Glimepiride (Amaryl) 4 mg BIDWMEALS PO Last administered on 02/03/17 08:38; Start 01/30/17 at 09:00 Insulin Detemir (Levemir) 40 units QHS SQ Last administered on 01/29/17 22:01 ; Start 01/29/17 at 21:00; Stop 01/30/17 at 11:51; Status DC Insulin Aspart (NovoLOG) 50 units TIDAC SQ Last administered on 01/29/17 22:00 ; Start 01/29/17 at 19:00; Stop 01/30/17 at 11:51; Status DC Non-Formulary Medication 1.2 mg DAILY SQ ; Start 01/30/17 at 09:00; Stop at 09:00; Status DC Pantoprazole Sodium (Protonix) 40 mg DAILYAC PO Last administered on 02/04/17 08:53; Start 01/30/17 at 07:30 Potassium Chloride (Klor-Con) 10 meq DAILYWBKFT PO Last administered on 08:59; Start 01/30/17 at 08:00 Insulin Aspart (NovoLOG) 0-9 UNITS TIDWMEALS SQ Last administered on 02/02/17 17:29; Start 01/30/17 at 08:00 Dextrose (Dextrose 50%-Water Syringe) 12.5 gm PRN Q15MIN PRN IV SEE COMMENTS; Start 01/29/17 at 18:45 Furosemide (Lasix) 40 mg 1X ONCE IVP Last administered on 01/29/17 21:52; Start 01/29/17 at 21:00; Stop 01/29/17 at 21:01; Status DC Furosemide (Lasix) 40 mg BID92 IVP Last administered on 01/30/17 11:01; Start 01/30/17 at 09:00; Stop 01/30/17 at 11:28; Status DC Lidocaine HCl (Xylocaine-Mpf 1% Vial) 2 ml STK-MED ONCE .ROUTE ; Start 01/29/17 at 20:37; Stop 01/29/17 at 20:38; Status DC Dextrose 250 ml @ 1,000 mls/hr 1X ONCE IV ; Start 01/30/17 at 07:45; Stop at 07:59; Status DC Glucose (Insta-Glucose) 15 gm PRN Q15MIN PRN PO LOW BLOOD SUGAR Last administered on 01/30/17 07:55; Start 01/30/17 at 08:00 Glucose (Insta-Glucose) 15 gm STK-MED ONCE .ROUTE ; Start 01/30/17 at 07:52; Stop 01/30/17 at 07:53; Status DC Lidocaine HCl (Xylocaine-Mpf 1% Vial) 2 ml STK-MED ONCE .ROUTE ; Start 01/29/17 at 21:00; Stop 01/30/17 at 09:01; Status DC Furosemide (Lasix) 40 mg DAILY IVP Last administered on 02/03/17 08:39; Start 01/31/17 at 09:00; Stop 02/03/17 at 15:50; Status DC Aspirin (Ecotrin) 81 mg DAILYWBKFT PO Last administered on 02/04/17 08:53; Start 01/30/17 at 12:30 Insulin Detemir (Levemir) 25 units QHS SQ Last administered on 02/02/17 20:54 ; Start 01/30/17 at 21:00; Stop 02/03/17 at 11:09; Status DC Gabapentin (Neurontin) 400 mg BID PO Last administered on 02/03/17 20:31; Start 01/31/17 at 09:00 Gabapentin (Neurontin) 100 mg 1X ONCE PO Last administered on 01/31/17 01:56 ; Start 01/31/17 at 02:00; Stop 01/31/17 at 02:01; Status DC Enoxaparin Sodium (Lovenox 40mg Syringe) 40 mg QHS SQ Last administered on 02/03 20:32; Start 01/31/17 at 21:00; Stop 02/04/17 at 09:32; Status DC Methylprednisolone Acetate (DEPO-Medrol 40MG VIAL) 40 mg 1X ONCE IM Last administered on 02/01/17 13:30; Start 02/01/17 at 13:30; Stop 02/01/17 at 13:31 ; Status DC Lidocaine/Sodium Bicarbonate (Buffered Lidocaine 1%) 20 ml 1X ONCE IJ Last administered on 02/01/17 13:30; Start 02/01/17 at 13:30; Stop 02/01/17 at 13:31 ; Status DC Labetalol HCl (Normodyne) 20 mg PRN Q2HR PRN IVP HYPERTENSION, SEE COMMENTS Last administered on 02/01/17 23:59; Start 02/01/17 at 23:30; Stop 02/03/17 at 15:47; Status DC Insulin Aspart (NovoLOG) 10 units TIDAC SQ Last administered on 02/04/17 12:35 ; Start 02/02/17 at 11:30 Insulin Aspart (NovoLOG VIAL) 15 unit 1X ONCE SQ ; Start 02/02/17 at 08:45; Stop 02/02/17 at 08:46; Status Cancel Insulin Aspart (NovoLOG) 15 units 1X ONCE SQ Last administered on 02/02/17 08 :42; Start 02/02/17 at 08:45; Stop 02/02/17 at 08:46; Status DC Loperamide HCl (Imodium) 2 mg PRN Q15MIN PRN PO DIARRHEA Last administered on 09:43; Start 02/02/17 at 11:15; Stop 02/03/17 at 12:31; Status DC Loperamide HCl (Imodium) 2 mg PRN Q15MIN PRN PO DIARRHEA Last administered on 01:35; Start 02/02/17 at 12:45; Stop 02/04/17 at 14:00; Status DC Insulin Detemir (Levemir) 35 units QHS SQ Last administered on 02/03/17 22:30 ; Start 02/03/17 at 21:00 Metoprolol Tartrate (Lopressor) 12.5 mg BID PO Last administered on 02/04/17 08:58; Start 02/03/17 at 21:00 Furosemide (Lasix) 60 mg DAILY PO Last administered on 02/04/17 08:57; Start 02/04/17 at 09:00 Heparin Sodium (Porcine) (Heparin Sq) 5,000 unit Q8HRS SQ ; Start 02/04/17 at 14 :00 Loperamide HCl (Imodium) 2 mg TID PO ; Start 02/04/17 at 14:00 Active Scripts Active Xanax (Alprazolam) 0.25 Mg Tablet 0.25 Mg PO QHS PRN Oxycodone-Acetaminophen 10-325 (Oxycodone Hcl/Acetaminophen) 1 Each Tablet 1 Tab PO PRN Q6HRS PRN Hydralazine Hcl 25 Mg Tablet 25 Mg PO BID Carvedilol 12.5 Mg Tablet 12.5 Mg PO BIDWMEALS Fluconazole 100 Mg Tablet 1 Tab PO DAILY Lasix (Furosemide) 40 Mg Tablet 40 Mg PO BID Reported Lisinopril 40 Mg Tablet 1 Tab PO DAILY Humalog (Insulin Lispro) 100 Unit/1 Ml Vial 50 Unit SQ TID Lortab 5-325 mg Tablet (Hydrocodone/Acetaminophen) 1 Each Tablet 1 Tab PO PRN Q6HRS PRN Levemir (Insulin Detemir) 100 Unit/1 Ml Vial 40 Unit SQ HS Victoza 3-Devon (Liraglutide) 0.6 Mg/0.1 Ml Pen.injctr 1.2 Mg SQ DAILY Gabapentin 300 Mg Capsule 1 Cap PO DAILY PRN Vitamin D3 (Cholecalciferol (Vitamin D3)) 5,000 Unit Tablet 1 Tab PO DAILY Glimepiride 4 Mg Tablet 1 Tab PO BID Tramadol Hcl 50 Mg Tablet 2 Tab PO BID Cyclobenzaprine Hcl 10 Mg Tablet 1 Tab PO BID Klor-Con 10 (Potassium Chloride) 10 Meq Tablet.er 1 Tab PO DAILY Omeprazole 20 Mg Capsule.dr 1 Cap PO DAILY Allergies Allergies: Coded Allergies: No Known Drug Allergies (Unverified , 05/01/16) ROS Review of System GEN: no Fevers no Chills EYES: no new Visual Complaints ENT: no EN Drainage no Hearing deficiets CVS: min Orthopnea no CP RESP: + SOB + RYAN +Edema GI: no Nausea no Vomiting : no Dysuria no Urgency HEME: no easy bruising no Palp Ly Nodes NEURO no Focal Weakness no Sz PSYCH: no Suicidal Ideation no Depression SKIN: no Rashes ENDO: no Polyuria or Polydipsia no Hot/Cold Intolerance MU SK: no Arthraigia no Myalgia Physical Exam Physical Exam General Appearance: Awake Alert Oriented x 3 In no Distress Eyes: VIsion Unchanged Conjunctiva Normal EN: No EN Drainage Mucous Memb. moist Neck: no JVD + JVP Supple no Thyromegaly CVS: S1 S2 + Murmur No Gallop No Rub +2-3 Edema Resp: no Rales no Rhonchi no Acc. Muscle use GI: BAS +ve NO Bruit Non Tender Non Distended; Obese : no CVA tenderness; no Suprapubic Tenderness SKIN: no Rashes Breast Exam deferred; Changes of Ch Venous stasis Mu.Sk: Adequate ROM no Muscle Atrophy Heme: Unable to palpate Obvious LAD no palp Splenomegaly NEURO: Good Strength and Tone Cranial Nerves II - XII grossly intact Psych: not Depressed no Active hallucination Vital Signs Vital Signs Date Time Temp Pulse Resp B/P (MAP) Pulse Ox O2 Delivery O2 Flow Rate FiO2 02/04/17 11:00 97.9 56 20 122/70 (87) 97 Room Air 97.9 Assessment & Plan CKD IV: Current FLuid and E-lyte status does not necessitate emergent need for Dialysis. Will re-evaluate for Dialysis in am . Pt understands proximity to needing PCA and does not want to wait to develop Uremia S/S ("I don't handle being sick too well") Anemia: CHeck Iron; mayneed to start Epogen Transfuse as needed. Edema/ Ansarca - Lasix gtt for now. ? RHCath HTN: Current BP meds reviewed. See orders for changes. Discussed Plan of Care and prognosis etc. at length with family. Labs Labs Laboratory Tests Test 02/02/17 16:36 02/02/17 20:44 02/03/17 05:05 02/03/17 07:53 Glucose (Fingerstick) 277 mg/dL (70-99) 279 mg/dL (70-99) 207 mg/dL (70-99) White Blood Count 8.9 x10^3/uL (4.0-11.0) Red Blood Count 3.60 x10^6/uL (3.50-5.40) Hemoglobin 10.1 g/dL (12.0-15.5) Hematocrit 32.2 % (36.0-47.0) Mean Corpuscular Volume 90 fL (79-100) Mean Corpuscular Hemoglobin 28 pg (25-35) Mean Corpuscular Hemoglobin Concent 32 g/dL (31-37) Red Cell Distribution Width 16.8 % (11.5-14.5) Platelet Count 161 x10^3/uL (140-400) Neutrophils (%) (Auto) 69 % (31-73) Lymphocytes (%) (Auto) 24 % (24-48) Monocytes (%) (Auto) 5 % (0-9) Eosinophils (%) (Auto) 1 % (0-3) Basophils (%) (Auto) 1 % (0-3) Neutrophils # (Auto) 6.2 x10^3uL (1.8-7.7) Lymphocytes # (Auto) 2.1 x10^3/uL (1.0-4.8) Monocytes # (Auto) 0.4 x10^3/uL (0.0-1.1) Eosinophils # (Auto) 0.1 x10^3/uL (0.0-0.7) Basophils # (Auto) 0.1 x10^3/uL (0.0-0.2) Sodium Level 140 mmol/L (136-145) Potassium Level 4.8 mmol/L (3.5-5.1) Chloride Level 108 mmol/L (98-107) Carbon Dioxide Level 23 mmol/L (21-32) Anion Gap 9 (6-14) Blood Urea Nitrogen 39 mg/dL (7-20) Creatinine 2.8 mg/dL (0.6-1.0) Estimated GFR (Cockcroft-Gault) 16.8 Glucose Level 258 mg/dL (70-99) Calcium Level 8.3 mg/dL (8.5-10.1) Test 02/03/17 12:08 02/03/17 17:05 02/03/17 21:07 02/04/17 03:30 Glucose (Fingerstick) 129 mg/dL (70-99) 71 mg/dL (70-99) 149 mg/dL (70-99) White Blood Count 9.0 x10^3/uL (4.0-11.0) Red Blood Count 3.49 x10^6/uL (3.50-5.40) Hemoglobin 9.8 g/dL (12.0-15.5) Hematocrit 31.1 % (36.0-47.0) Mean Corpuscular Volume 89 fL (79-100) Mean Corpuscular Hemoglobin 28 pg (25-35) Mean Corpuscular Hemoglobin Concent 32 g/dL (31-37) Red Cell Distribution Width 16.6 % (11.5-14.5) Platelet Count 157 x10^3/uL (140-400) Neutrophils (%) (Auto) 56 % (31-73) Lymphocytes (%) (Auto) 34 % (24-48) Monocytes (%) (Auto) 5 % (0-9) Eosinophils (%) (Auto) 4 % (0-3) Basophils (%) (Auto) 1 % (0-3) Neutrophils # (Auto) 5.1 x10^3uL (1.8-7.7) Lymphocytes # (Auto) 3.1 x10^3/uL (1.0-4.8) Monocytes # (Auto) 0.5 x10^3/uL (0.0-1.1) Eosinophils # (Auto) 0.3 x10^3/uL (0.0-0.7) Basophils # (Auto) 0.0 x10^3/uL (0.0-0.2) Sodium Level 143 mmol/L (136-145) Potassium Level 4.8 mmol/L (3.5-5.1) Chloride Level 111 mmol/L (98-107) Carbon Dioxide Level 24 mmol/L (21-32) Anion Gap 8 (6-14) Blood Urea Nitrogen 45 mg/dL (7-20) Creatinine 3.0 mg/dL (0.6-1.0) Estimated GFR (Cockcroft-Gault) 15.5 Glucose Level 139 mg/dL (70-99) Calcium Level 8.0 mg/dL (8.5-10.1) Test 02/04/17 07:54 02/04/17 11:43 Glucose (Fingerstick) 76 mg/dL (70-99) 160 mg/dL (70-99) Laboratory Tests Test 02/03/17 17:05 02/03/17 21:07 02/04/17 03:30 02/04/17 07:54 Glucose (Fingerstick) 71 mg/dL (70-99) 149 mg/dL (70-99) 76 mg/dL (70-99) White Blood Count 9.0 x10^3/uL (4.0-11.0) Red Blood Count 3.49 x10^6/uL (3.50-5.40) Hemoglobin 9.8 g/dL (12.0-15.5) Hematocrit 31.1 % (36.0-47.0) Mean Corpuscular Volume 89 fL (79-100) Mean Corpuscular Hemoglobin 28 pg (25-35) Mean Corpuscular Hemoglobin Concent 32 g/dL (31-37) Red Cell Distribution Width 16.6 % (11.5-14.5) Platelet Count 157 x10^3/uL (140-400) Neutrophils (%) (Auto) 56 % (31-73) Lymphocytes (%) (Auto) 34 % (24-48) Monocytes (%) (Auto) 5 % (0-9) Eosinophils (%) (Auto) 4 % (0-3) Basophils (%) (Auto) 1 % (0-3) Neutrophils # (Auto) 5.1 x10^3uL (1.8-7.7) Lymphocytes # (Auto) 3.1 x10^3/uL (1.0-4.8) Monocytes # (Auto) 0.5 x10^3/uL (0.0-1.1) Eosinophils # (Auto) 0.3 x10^3/uL (0.0-0.7) Basophils # (Auto) 0.0 x10^3/uL (0.0-0.2) Sodium Level 143 mmol/L (136-145) Potassium Level 4.8 mmol/L (3.5-5.1) Chloride Level 111 mmol/L (98-107) Carbon Dioxide Level 24 mmol/L (21-32) Anion Gap 8 (6-14) Blood Urea Nitrogen 45 mg/dL (7-20) Creatinine 3.0 mg/dL (0.6-1.0) Estimated GFR (Cockcroft-Gault) 15.5 Glucose Level 139 mg/dL (70-99) Calcium Level 8.0 mg/dL (8.5-10.1) Test 02/04/17 11:43 Glucose (Fingerstick) 160 mg/dL (70-99) Images Images PA and lateral views of the chest were obtained and are compared to a single view examination 06/11/2016. There is mild cardiomegaly. There is suspect mild pulmonary vascular congestion. Gross congestive heart failure is not seen. No consolidated pneumonia is seen. Significant pleural fluid is not present. There is no pneumothorax. Postoperative changes in the upper abdomen are noted. IMPRESSION: Mild cardiomegaly, stable, No focal consolidated pneumonia seen. Suspect mild pulmonary vascular congestion MAJO DRAKE MD February 04, 2017 14:37
[2017-02-04 15:00] VITALS: BP 123/64
[2017-02-04] MEDS: LOPERAMIDE 2 MG CAPSULE PO SCH ×2 (15:56→21:16)
[2017-02-04] MEDS: HEPARIN PF for SUB-Q USE 5,000 UNIT/0.5 ML VIAL. SQ SCH ×2 (16:02→21:22)
[2017-02-04] MEDS: GABAPENTIN 300 MG CAPSULE. PO PRN (19:16)
[2017-02-04] MEDS: oxyCODONE/APAP 10/325 1 TAB TABLET PO PRN (19:16)
[2017-02-04 19:38] VITALS: BP 125/66
[2017-02-04] MEDS: INSULIN DETEMIR 300 UNITS/3 ML INSULN.PEN. SQ SCH (21:23)
[2017-02-04 22:19] VITALS: BP 139/68
[2017-02-05 03:24] VITALS: BP 154/79
[2017-02-05 03:41] LABS: BASO # 0.1 x10^3/uL (0.0-0.2); BASO % 1 % (0-3); EOS % 4 % (0-3); HEMATOCRIT 33.9 % (36.0-47.0); HEMOGLOBIN 10.6 g/dL (12.0-15.5); LYMPH # 2.9 x10^3/uL (1.0-4.8); LYMPH % 34 % (24-48); MEAN CORPUSCULAR HEMOGLOBIN 28 pg (25-35); MEAN CORPUSCULAR HGB CONC 31 g/dL (31-37); MEAN CORPUSCULAR VOLUME 90 fL (79-100); MONO % 7 % (0-9); NEUT % 54 % (31-73); PLATELET COUNT 157 x10^3/uL (140-400); RED BLOOD COUNT 3.78 x10^6/uL (3.50-5.40); RED CELL DISTRIBUTION WIDTH 17.1 % (11.5-14.5); WHITE BLOOD COUNT 8.7 x10^3/uL (4.0-11.0)
[2017-02-05 04:21] LABS: ALBUMIN 2.8 g/dL (3.4-5.0); CALCIUM 8.2 mg/dL (8.5-10.1); CREATININE 3.3 mg/dL (0.6-1.0); GFR 13.9; PHOSPHORUS 4.9 mg/dL (2.6-4.7); POTASSIUM 5.5 mmol/L (3.5-5.1)
[2017-02-05] MEDS: HEPARIN PF for SUB-Q USE 5,000 UNIT/0.5 ML VIAL. SQ SCH ×3 (06:18→22:00)
[2017-02-05 07:00] VITALS: BP 125/73
[2017-02-05] MEDS: INSULIN ASPART 300 UNITS/3 ML INSULN.PEN SQ SCH ×6 (07:30→17:00)
[2017-02-05] MEDS: POTASSIUM CHLORIDE 10 MEQ TABLET.ER. PO SCH (08:00)
[2017-02-05] MEDS: GLIMEPIRIDE 2 MG TABLET. PO SCH ×2 (08:00→16:11)
[2017-02-05] MEDS: LISINOPRIL 40 MG TABLET. PO SCH (08:56)
[2017-02-05] MEDS: METOPROLOL TART IMMED RELEASE 25 MG TABLET. PO SCH ×2 (08:56→22:04)
[2017-02-05] MEDS: ASPIRIN ENTERIC COATED 81 MG TABLET.DR. PO SCH (08:56)
[2017-02-05] MEDS: hydrALAZINE 25 MG TABLET PO SCH ×2 (08:57→22:04)
[2017-02-05] MEDS: CYCLOBENZAPRINE 10 MG TABLET. PO SCH ×2 (09:00→22:05)
[2017-02-05] MEDS: LOPERAMIDE 2 MG CAPSULE PO SCH ×3 (09:00→22:03)
[2017-02-05] MEDS: GABAPENTIN 400 MG CAPSULE. PO SCH ×2 (09:00→21:00)
[2017-02-05] MEDS: ACETYLCYSTEINE 20% ORAL SOLN 600 MG/3 ML SYRINGE. PO SCH ×2 (09:00→22:05)
--- NOTE | 2017-02-05 09:27 | PDOC ---
SUBJECTIVE ROS CKD IV/ ansarca feeling well CVS: no Orthopnea, no CP RESP: no SOB, no RYAN GI: no Nausea, no Vomiting : no Dysuria, no Urgency OBJECTIVE Vital Signs Vital Signs Date Time Temp Pulse Resp B/P (MAP) Pulse Ox O2 Delivery O2 Flow Rate FiO2 02/05/17 08:57 70 125/73 02/05/17 07:00 98.1 18 99 Room Air 98.1 I & 0 Intake and Output 02/05/17 07:00 Intake Total 2150 ml Output Total 1850 ml Balance 300 ml Intake Oral 2150 ml Output Urine Total 1850 ml # Bowel Movements 1 PHYSICAL EXAM Physical Exam General Appearance: Awake Alert Oriented x 3 In no Distress Eyes: VIsion Unchanged Conjunctiva Normal EN: No EN Drainage Mucous Memb. moist Neck: no JVD + JVP Supple no Thyromegaly CVS: S1 S2 + Murmur No Gallop No Rub +2-3 Edema Resp: no Rales no Rhonchi no Acc. Muscle use GI: BAS +ve NO Bruit Non Tender Non Distended; Obese : no CVA tenderness; no Suprapubic Tenderness SKIN: no Rashes Breast Exam deferred; Changes of Ch Venous stasis Mu.Sk: Adequate ROM no Muscle Atrophy Heme: Unable to palpate Obvious LAD no palp Splenomegaly NEURO: Good Strength and Tone Cranial Nerves II - XII grossly intact Psych: not Depressed no Active hallucination Assessment & Plan CKD IV: Current FLuid and E-lyte status does not necessitate emergent need for Dialysis. Will re-evaluate for Dialysis in am . Pt understands proximity to needing [employer] and does not want to wait to develop Uremia S/S ("I don't handle being sick too well") - 24-hr Urine collection ongoing ? CAD - Pt agreeable to heart Cath. She understands risk of CAN/ JOSE and need for [employer] initiation if needed and is agreeable to proceed. Will stop lasix gtt for LHC. NAC as ordered ^K - recheck post LHC. D/c KCl and change to renal diet; D/c NSAIDs Anemia: Checking Iron; mayneed to start Epogen Transfuse as needed. Edema/ Anasarca - hold Lasix gtt for now due to LHC. ? RHCath too marginally ^ed Phos - watch trend, may need binders HTN: Current BP meds reviewed. See orders for changes. Discussed Plan of Care and prognosis etc. at length with family. COMMENT/RELEVANT DATA Meds Current Medications Medications (Trade) Dose Ordered Sig/Aileen Start Time Stop Time Status Last Admin Dose Admin Acetaminophen (Tylenol) 650 mg PRN Q6HRS PRN 01/29/17 18:45 Acetaminophen/ Hydrocodone Bitart (Lortab 5/325) 1 tab PRN Q6HRS PRN 01/29/17 18:45 01/29/17 22:31 1 TAB Alprazolam (Xanax) 0.25 mg QHS PRN 01/29/17 18:45 Aspirin (Ecotrin) 81 mg DAILYWBKFT 01/30/17 12:30 02/05/17 08:56 81 MG Bisacodyl (Dulcolax Supp) 10 mg PRN DAILY PRN 01/29/17 18:45 02/02/17 11:08 DC Carvedilol (Coreg) 12.5 mg BIDWMEALS 01/29/17 19:00 01/30/17 11:28 DC 01/29/17 21:51 12.5 MG Cyclobenzaprine HCl (Flexeril) 10 mg BID 01/29/17 21:00 02/04/17 08:55 10 MG Dextrose 250 ml @ 1,000 mls/hr 1X ONCE 01/30/17 07:45 01/30/17 07:59 DC Dextrose (Dextrose 50%-Water Syringe) 12.5 gm PRN Q15MIN PRN 01/29/17 18:45 Docusate Sodium (Colace) 100 mg BID 01/29/17 21:00 02/02/17 11:08 DC 02/01/17 08:42 100 MG Enoxaparin Sodium (Lovenox 40mg Syringe) 40 mg QHS 01/31/17 21:00 02/04/17 09:32 DC 02/03/17 20:32 40 MG Fluconazole (Diflucan) 100 mg DAILY 01/30/17 09:00 02/04/17 08:53 100 MG Furosemide (Lasix) 60 mg DAILY 02/04/17 09:00 02/04/17 14:34 DC 02/04/17 08:57 60 MG Furosemide 100 mg/ Sodium Chloride 100 ml @ 0 mls/hr CONT PRN 02/04/17 14:30 02/04/17 15:59 5 MLS/HR Gabapentin (Neurontin) 100 mg 1X ONCE 01/31/17 02:00 01/31/17 02:01 DC 01/31/17 01:56 100 MG Glimepiride (Amaryl) 4 mg BIDWMEALS 01/30/17 09:00 02/03/17 08:38 4 MG Glucose (Insta-Glucose) 15 gm STK-MED ONCE 01/30/17 07:52 01/30/17 07:53 DC Heparin Sodium (Porcine) (Heparin Sq) 5,000 unit Q8HRS 02/04/17 14:00 02/05/17 06:18 5,000 UNIT Hydralazine HCl (Apresoline) 25 mg BID 01/29/17 21:00 02/05/17 08:57 25 MG Ibuprofen (Motrin) 400 mg PRN Q6HRS PRN 01/29/17 18:45 Insulin Aspart (NovoLOG VIAL) 15 unit 1X ONCE 02/02/17 08:45 02/02/17 08:46 Cancel Insulin Aspart (NovoLOG) 15 units 1X ONCE 02/02/17 08:45 02/02/17 08:46 DC 02/02/17 08:42 6 UNITS Insulin Detemir (Levemir) 35 units QHS 02/03/17 21:00 02/04/17 21:23 35 UNITS Labetalol HCl (Normodyne) 20 mg PRN Q2HR PRN 02/01/17 23:30 02/03/17 15:47 DC 02/01/17 23:59 20 MG Lactulose 20 gm PRN Q12HR PRN 01/29/17 18:45 Lidocaine HCl (Xylocaine-Mpf 1% Vial) 2 ml STK-MED ONCE 01/29/17 21:00 01/30/17 09:01 DC Lidocaine/Sodium Bicarbonate (Buffered Lidocaine 1%) 20 ml 1X ONCE 02/01/17 13:30 02/01/17 13:31 DC 02/01/17 13:30 20 ML Lisinopril (Prinivil) 40 mg DAILY 01/30/17 09:00 02/05/17 08:56 40 MG Loperamide HCl (Imodium) 2 mg TID 02/04/17 14:00 02/04/17 21:16 2 MG Magnesium Hydroxide (Milk Of Magnesia) 2,400 mg PRN Q12HR PRN 01/29/17 18:45 Magnesium Sulfate/ Dextrose 50 ml @ 25 mls/hr PRN DAILY PRN 02/04/17 14:30 Methylprednisolone Acetate (DEPO-Medrol 40MG VIAL) 40 mg 1X ONCE 02/01/17 13:30 02/01/17 13:31 DC 02/01/17 13:30 40 MG Metoprolol Tartrate (Lopressor) 12.5 mg BID 02/03/17 21:00 02/05/17 08:56 12.5 MG Non-Formulary Medication 1.2 mg DAILY 01/30/17 09:00 01/30/17 09:00 DC Oxycodone HCl (Roxicodone) 5 mg PRN Q3HRS PRN 01/29/17 18:45 02/01/17 11:51 5 MG Oxycodone/ Acetaminophen (Percocet 10/325) 1 tab PRN Q6HRS PRN 01/29/17 18:45 02/04/17 19:16 1 TAB Pantoprazole Sodium (Protonix) 40 mg DAILYAC 01/30/17 07:30 02/04/17 08:53 40 MG Potassium Chloride (Klor-Con) 10 meq DAILYWBKFT 01/30/17 08:00 02/04/17 08:59 10 MEQ Tramadol HCl (Ultram) 100 mg BID 01/29/17 21:00 01/30/17 11:51 DC 01/29/17 21:50 100 MG Vitamin D (Vitamin D3) 5,000 unit DAILY 01/30/17 09:00 02/04/17 08:55 5,000 UNIT Zolpidem Tartrate (Ambien) 5 mg PRN QHS PRN 01/29/17 18:45 Lab Laboratory Tests Test 02/04/17 11:43 02/04/17 17:31 02/04/17 20:22 02/05/17 03:25 Glucose (Fingerstick) 160 mg/dL (70-99) 121 mg/dL (70-99) 294 mg/dL (70-99) White Blood Count 8.7 x10^3/uL (4.0-11.0) Red Blood Count 3.78 x10^6/uL (3.50-5.40) Hemoglobin 10.6 g/dL (12.0-15.5) Hematocrit 33.9 % (36.0-47.0) Mean Corpuscular Volume 90 fL (79-100) Mean Corpuscular Hemoglobin 28 pg (25-35) Mean Corpuscular Hemoglobin Concent 31 g/dL (31-37) Red Cell Distribution Width 17.1 % (11.5-14.5) Platelet Count 157 x10^3/uL (140-400) Neutrophils (%) (Auto) 54 % (31-73) Lymphocytes (%) (Auto) 34 % (24-48) Monocytes (%) (Auto) 7 % (0-9) Eosinophils (%) (Auto) 4 % (0-3) Basophils (%) (Auto) 1 % (0-3) Neutrophils # (Auto) 4.7 x10^3uL (1.8-7.7) Lymphocytes # (Auto) 2.9 x10^3/uL (1.0-4.8) Monocytes # (Auto) 0.6 x10^3/uL (0.0-1.1) Eosinophils # (Auto) 0.3 x10^3/uL (0.0-0.7) Basophils # (Auto) 0.1 x10^3/uL (0.0-0.2) Sodium Level 141 mmol/L (136-145) Potassium Level 5.5 mmol/L (3.5-5.1) Chloride Level 109 mmol/L (98-107) Carbon Dioxide Level 24 mmol/L (21-32) Anion Gap 8 (6-14) Blood Urea Nitrogen 49 mg/dL (7-20) Creatinine 3.3 mg/dL (0.6-1.0) Estimated GFR (Cockcroft-Gault) 13.9 Glucose Level 225 mg/dL (70-99) Calcium Level 8.2 mg/dL (8.5-10.1) Phosphorus Level 4.9 mg/dL (2.6-4.7) Magnesium Level 2.1 mg/dL (1.8-2.4) Albumin 2.8 g/dL (3.4-5.0) MAJO DRAKE MD Feb 05, 2017 09:27
--- NOTE | 2017-02-05 09:41 | PDOC ---
Subjective: Subjective: Diarrhea better - less frequent, less watery. Objective: Objective: ?heart cath today Vital Signs: Vital Signs Date Time Temp Pulse Resp B/P (MAP) Pulse Ox O2 Delivery O2 Flow Rate FiO2 02/05/17 08:57 70 125/73 02/05/17 07:00 98.1 18 99 Room Air 98.1 Labs: Laboratory Tests Test 02/04/17 11:43 02/04/17 17:31 02/04/17 20:22 Glucose (Fingerstick) 160 mg/dL (70-99) 121 mg/dL (70-99) 294 mg/dL (70-99) PE: GEN: NAD, laying in bed ABD: NABS, obese, non-tender EXTREMITY: BLE edema NEURO/PSYCH: A & O 3 A/P: CHF, CKD Diarrhea - improved w/ Imodium TID -C Diff neg, Giardia pending, stool culture uncollected - d/w RN yesterday -?FAP, s/p colectomy, h/o rectal adenoma in 2014 S/p Serafin shunt, staple line broken down on EGD in 2014 -on PPI -- Continue same per GI. ANALI JOHNSON Feb 05, 2017 09:41
[2017-02-05 10:24] LABS: PTH INTACT 249 pg/mL (15-65)
--- NOTE | 2017-02-05 10:43 | PDOC ---
PROGRESS NOTES Chief Complaint Chief Complaint 1. Acute-on chronic congestive heart failure, likely systolic versus diastolic or combined. 2. Old lymphedema. 3. Obesity. 4. Diabetes type 2. Unknown Hgb A1c. 6. Chronic kidney disease. 7. Anemia of chronic disease. 8. Limited mobility, wheelchair-bound. 9. Chest heaviness. 10. Diarrhea x 2 weeks, hx subtotal colectomy (family hx Familial polyposis?) History of Present Illness History of Present Illness All medical issues she has been admitted for seems to have resolved Legs better, Diarrhea better with imodium NO SOA CReatinine stable at 2 plus Needs to STOP lasix at home, per renal advise LAsix has been dcd here Requiring less insulin here than her home dose HH arranged PLans of cardiac cath up in air PLAN: CArdica cath vs HOme with HH MAR done Dw RN and pt Await cardiac rounds STop lasix on dc Ff up renal as oP 1 month Vitals Vitals Vital Signs Date Time Temp Pulse Resp B/P (MAP) Pulse Ox O2 Delivery O2 Flow Rate FiO2 02/05/17 08:57 70 125/73 02/05/17 08:00 Room Air 02/05/17 07:00 98.1 18 99 98.1 Physical Exam General: Alert, Oriented X3, Cooperative, No acute distress Heart: Regular rate, Normal S1, Normal S2, No murmurs Lungs: Clear, Other (no wheezing) Abdomen: Normal bowel sounds, Soft, No tenderness, No hepatosplenomegaly, No masses, Other Extremities: No cyanosis, Other (chronic lymphedema, LE's) Skin: No significant lesion Labs LABS Laboratory Tests Test 02/04/17 11:43 02/04/17 14:50 02/04/17 17:31 02/04/17 20:22 Glucose (Fingerstick) 160 mg/dL (70-99) 121 mg/dL (70-99) 294 mg/dL (70-99) Estimated GFR (Non- 16 (>59) EGFR 18 (>59) PTH (Intact) Specimen Description Comment (.) Parathyroid Hormone (Intact) 249 pg/mL (15-65) Calcium (PTH Intact) 8.3 mg/dL (8.7-10.3) Creatinine (PTH Intact) 2.96 mg/dL (0.57-1.00) Phosphorus (PTH Intact) 4.4 mg/dL (2.5-4.5) Test 02/05/17 03:25 White Blood Count 8.7 x10^3/uL (4.0-11.0) Red Blood Count 3.78 x10^6/uL (3.50-5.40) Hemoglobin 10.6 g/dL (12.0-15.5) Hematocrit 33.9 % (36.0-47.0) Mean Corpuscular Volume 90 fL (79-100) Mean Corpuscular Hemoglobin 28 pg (25-35) Mean Corpuscular Hemoglobin Concent 31 g/dL (31-37) Red Cell Distribution Width 17.1 % (11.5-14.5) Platelet Count 157 x10^3/uL (140-400) Neutrophils (%) (Auto) 54 % (31-73) Lymphocytes (%) (Auto) 34 % (24-48) Monocytes (%) (Auto) 7 % (0-9) Eosinophils (%) (Auto) 4 % (0-3) Basophils (%) (Auto) 1 % (0-3) Neutrophils # (Auto) 4.7 x10^3uL (1.8-7.7) Lymphocytes # (Auto) 2.9 x10^3/uL (1.0-4.8) Monocytes # (Auto) 0.6 x10^3/uL (0.0-1.1) Eosinophils # (Auto) 0.3 x10^3/uL (0.0-0.7) Basophils # (Auto) 0.1 x10^3/uL (0.0-0.2) Sodium Level 141 mmol/L (136-145) Potassium Level 5.5 mmol/L (3.5-5.1) Chloride Level 109 mmol/L (98-107) Carbon Dioxide Level 24 mmol/L (21-32) Anion Gap 8 (6-14) Blood Urea Nitrogen 49 mg/dL (7-20) Creatinine 3.3 mg/dL (0.6-1.0) Estimated GFR (Cockcroft-Gault) 13.9 Glucose Level 225 mg/dL (70-99) Calcium Level 8.2 mg/dL (8.5-10.1) Phosphorus Level 4.9 mg/dL (2.6-4.7) Magnesium Level 2.1 mg/dL (1.8-2.4) Albumin 2.8 g/dL (3.4-5.0) Review of Systems Review of Systems denies 14 pt Comment Review of Relevant I have reviewed the following items kai (where applicable) has been applied. Labs Laboratory Tests Test 02/03/17 12:08 02/03/17 17:05 02/03/17 21:07 02/04/17 03:30 Glucose (Fingerstick) 129 mg/dL (70-99) 71 mg/dL (70-99) 149 mg/dL (70-99) White Blood Count 9.0 x10^3/uL (4.0-11.0) Red Blood Count 3.49 x10^6/uL (3.50-5.40) Hemoglobin 9.8 g/dL (12.0-15.5) Hematocrit 31.1 % (36.0-47.0) Mean Corpuscular Volume 89 fL (79-100) Mean Corpuscular Hemoglobin 28 pg (25-35) Mean Corpuscular Hemoglobin Concent 32 g/dL (31-37) Red Cell Distribution Width 16.6 % (11.5-14.5) Platelet Count 157 x10^3/uL (140-400) Neutrophils (%) (Auto) 56 % (31-73) Lymphocytes (%) (Auto) 34 % (24-48) Monocytes (%) (Auto) 5 % (0-9) Eosinophils (%) (Auto) 4 % (0-3) Basophils (%) (Auto) 1 % (0-3) Neutrophils # (Auto) 5.1 x10^3uL (1.8-7.7) Lymphocytes # (Auto) 3.1 x10^3/uL (1.0-4.8) Monocytes # (Auto) 0.5 x10^3/uL (0.0-1.1) Eosinophils # (Auto) 0.3 x10^3/uL (0.0-0.7) Basophils # (Auto) 0.0 x10^3/uL (0.0-0.2) Sodium Level 143 mmol/L (136-145) Potassium Level 4.8 mmol/L (3.5-5.1) Chloride Level 111 mmol/L (98-107) Carbon Dioxide Level 24 mmol/L (21-32) Anion Gap 8 (6-14) Blood Urea Nitrogen 45 mg/dL (7-20) Creatinine 3.0 mg/dL (0.6-1.0) Estimated GFR (Cockcroft-Gault) 15.5 Glucose Level 139 mg/dL (70-99) Calcium Level 8.0 mg/dL (8.5-10.1) Test 02/04/17 07:54 02/04/17 11:43 02/04/17 14:50 02/04/17 17:31 Glucose (Fingerstick) 76 mg/dL (70-99) 160 mg/dL (70-99) 121 mg/dL (70-99) Estimated GFR (Non- 16 (>59) EGFR 18 (>59) PTH (Intact) Specimen Description Comment (.) Parathyroid Hormone (Intact) 249 pg/mL (15-65) Calcium (PTH Intact) 8.3 mg/dL (8.7-10.3) Creatinine (PTH Intact) 2.96 mg/dL (0.57-1.00) Phosphorus (PTH Intact) 4.4 mg/dL (2.5-4.5) Test 02/04/17 20:22 02/05/17 03:25 Glucose (Fingerstick) 294 mg/dL (70-99) White Blood Count 8.7 x10^3/uL (4.0-11.0) Red Blood Count 3.78 x10^6/uL (3.50-5.40) Hemoglobin 10.6 g/dL (12.0-15.5) Hematocrit 33.9 % (36.0-47.0) Mean Corpuscular Volume 90 fL (79-100) Mean Corpuscular Hemoglobin 28 pg (25-35) Mean Corpuscular Hemoglobin Concent 31 g/dL (31-37) Red Cell Distribution Width 17.1 % (11.5-14.5) Platelet Count 157 x10^3/uL (140-400) Neutrophils (%) (Auto) 54 % (31-73) Lymphocytes (%) (Auto) 34 % (24-48) Monocytes (%) (Auto) 7 % (0-9) Eosinophils (%) (Auto) 4 % (0-3) Basophils (%) (Auto) 1 % (0-3) Neutrophils # (Auto) 4.7 x10^3uL (1.8-7.7) Lymphocytes # (Auto) 2.9 x10^3/uL (1.0-4.8) Monocytes # (Auto) 0.6 x10^3/uL (0.0-1.1) Eosinophils # (Auto) 0.3 x10^3/uL (0.0-0.7) Basophils # (Auto) 0.1 x10^3/uL (0.0-0.2) Sodium Level 141 mmol/L (136-145) Potassium Level 5.5 mmol/L (3.5-5.1) Chloride Level 109 mmol/L (98-107) Carbon Dioxide Level 24 mmol/L (21-32) Anion Gap 8 (6-14) Blood Urea Nitrogen 49 mg/dL (7-20) Creatinine 3.3 mg/dL (0.6-1.0) Estimated GFR (Cockcroft-Gault) 13.9 Glucose Level 225 mg/dL (70-99) Calcium Level 8.2 mg/dL (8.5-10.1) Phosphorus Level 4.9 mg/dL (2.6-4.7) Magnesium Level 2.1 mg/dL (1.8-2.4) Albumin 2.8 g/dL (3.4-5.0) Laboratory Tests Test 02/04/17 11:43 02/04/17 14:50 02/04/17 17:31 02/04/17 20:22 Glucose (Fingerstick) 160 mg/dL (70-99) 121 mg/dL (70-99) 294 mg/dL (70-99) Estimated GFR (Non- 16 (>59) EGFR 18 (>59) PTH (Intact) Specimen Description Comment (.) Parathyroid Hormone (Intact) 249 pg/mL (15-65) Calcium (PTH Intact) 8.3 mg/dL (8.7-10.3) Creatinine (PTH Intact) 2.96 mg/dL (0.57-1.00) Phosphorus (PTH Intact) 4.4 mg/dL (2.5-4.5) Test 02/05/17 03:25 White Blood Count 8.7 x10^3/uL (4.0-11.0) Red Blood Count 3.78 x10^6/uL (3.50-5.40) Hemoglobin 10.6 g/dL (12.0-15.5) Hematocrit 33.9 % (36.0-47.0) Mean Corpuscular Volume 90 fL (79-100) Mean Corpuscular Hemoglobin 28 pg (25-35) Mean Corpuscular Hemoglobin Concent 31 g/dL (31-37) Red Cell Distribution Width 17.1 % (11.5-14.5) Platelet Count 157 x10^3/uL (140-400) Neutrophils (%) (Auto) 54 % (31-73) Lymphocytes (%) (Auto) 34 % (24-48) Monocytes (%) (Auto) 7 % (0-9) Eosinophils (%) (Auto) 4 % (0-3) Basophils (%) (Auto) 1 % (0-3) Neutrophils # (Auto) 4.7 x10^3uL (1.8-7.7) Lymphocytes # (Auto) 2.9 x10^3/uL (1.0-4.8) Monocytes # (Auto) 0.6 x10^3/uL (0.0-1.1) Eosinophils # (Auto) 0.3 x10^3/uL (0.0-0.7) Basophils # (Auto) 0.1 x10^3/uL (0.0-0.2) Sodium Level 141 mmol/L (136-145) Potassium Level 5.5 mmol/L (3.5-5.1) Chloride Level 109 mmol/L (98-107) Carbon Dioxide Level 24 mmol/L (21-32) Anion Gap 8 (6-14) Blood Urea Nitrogen 49 mg/dL (7-20) Creatinine 3.3 mg/dL (0.6-1.0) Estimated GFR (Cockcroft-Gault) 13.9 Glucose Level 225 mg/dL (70-99) Calcium Level 8.2 mg/dL (8.5-10.1) Phosphorus Level 4.9 mg/dL (2.6-4.7) Magnesium Level 2.1 mg/dL (1.8-2.4) Albumin 2.8 g/dL (3.4-5.0) Medications Current Medications Zolpidem Tartrate (Ambien) 5 mg PRN QHS PRN PO INSOMNIA, MAY REPEAT IN 1HR; Start 01/29/17 at 18:45 Oxycodone HCl (Roxicodone) 5 mg PRN Q3HRS PRN PO BREAKTHROUGH PAIN Last administered on 02/01/17 11:51; Start 01/29/17 at 18:45 Acetaminophen (Tylenol) 650 mg PRN Q6HRS PRN PO Headaches, Temp > 101.5F; Start 01/29/17 at 18:45 Ibuprofen (Motrin) 400 mg PRN Q6HRS PRN PO MILD PAIN; Start 01/29/17 at 18:45; Stop 02/05/17 at 09:24; Status DC Docusate Sodium (Colace) 100 mg BID PO Last administered on 02/01/17 08:42; Start 01/29/17 at 21:00; Stop 02/02/17 at 11:08; Status DC Magnesium Hydroxide (Milk Of Magnesia) 2,400 mg PRN Q12HR PRN PO CONSTIPATION; Start 01/29/17 at 18:45 Lactulose 20 gm PRN Q12HR PRN PO CONSTIPATION; Start 01/29/17 at 18:45 Bisacodyl (Dulcolax Supp) 10 mg PRN DAILY PRN VT CONSTIPATION; Start 01/29/17 at 18:45; Stop 02/02/17 at 11:08; Status DC Enoxaparin Sodium (Lovenox 40mg Syringe) 40 mg Q12HR SQ Last administered on 21:09; Start 01/29/17 at 22:00; Stop 01/31/17 at 07:12; Status DC Alprazolam (Xanax) 0.25 mg QHS PRN PO ANXIETY / AGITATION; Start 01/29/17 at 18 :45 Carvedilol (Coreg) 12.5 mg BIDWMEALS PO Last administered on 01/29/17 21:51; Start 01/29/17 at 19:00; Stop 01/30/17 at 11:28; Status DC Cyclobenzaprine HCl (Flexeril) 10 mg BID PO Last administered on 02/04/17 08: 55; Start 01/29/17 at 21:00 Fluconazole (Diflucan) 100 mg DAILY PO Last administered on 02/04/17 08:53; Start 01/30/17 at 09:00 Furosemide (Lasix) 40 mg BID92 PO ; Start 01/30/17 at 09:00; Stop 01/30/17 at 09 :00; Status DC Hydralazine HCl (Apresoline) 25 mg BID PO Last administered on 02/05/17 08:57; Start 01/29/17 at 21:00 Acetaminophen/ Hydrocodone Bitart (Lortab 5/325) 1 tab PRN Q6HRS PRN PO MILD PAIN Last administered on 01/29/17 22:31; Start 01/29/17 at 18:45 Lisinopril (Prinivil) 40 mg DAILY PO Last administered on 02/05/17 08:56; Start 01/30/17 at 09:00 Oxycodone/ Acetaminophen (Percocet 10/325) 1 tab PRN Q6HRS PRN PO MODERATE- SEVERE PAIN Last administered on 02/04/17 19:16; Start 01/29/17 at 18:45 Tramadol HCl (Ultram) 100 mg BID PO Last administered on 01/29/17 21:50; Start 01/29/17 at 21:00; Stop 01/30/17 at 11:51; Status DC Vitamin D (Vitamin D3) 5,000 unit DAILY PO Last administered on 02/04/17 08:55 ; Start 01/30/17 at 09:00 Gabapentin (Neurontin) 300 mg PRN DAILY PRN PO NERVE PAIN Last administered on 02/04/17 19:16; Start 01/29/17 at 21:00 Glimepiride (Amaryl) 4 mg BIDWMEALS PO Last administered on 02/03/17 08:38; Start 01/30/17 at 09:00 Insulin Detemir (Levemir) 40 units QHS SQ Last administered on 01/29/17 22:01 ; Start 01/29/17 at 21:00; Stop 01/30/17 at 11:51; Status DC Insulin Aspart (NovoLOG) 50 units TIDAC SQ Last administered on 01/29/17 22:00 ; Start 01/29/17 at 19:00; Stop 01/30/17 at 11:51; Status DC Non-Formulary Medication 1.2 mg DAILY SQ ; Start 01/30/17 at 09:00; Stop at 09:00; Status DC Pantoprazole Sodium (Protonix) 40 mg DAILYAC PO Last administered on 02/04/17 08:53; Start 01/30/17 at 07:30 Potassium Chloride (Klor-Con) 10 meq DAILYWBKFT PO Last administered on 08:59; Start 01/30/17 at 08:00; Stop 02/05/17 at 09:21; Status DC Insulin Aspart (NovoLOG) 0-9 UNITS TIDWMEALS SQ Last administered on 02/02/17 17:29; Start 01/30/17 at 08:00 Dextrose (Dextrose 50%-Water Syringe) 12.5 gm PRN Q15MIN PRN IV SEE COMMENTS; Start 01/29/17 at 18:45 Furosemide (Lasix) 40 mg 1X ONCE IVP Last administered on 01/29/17 21:52; Start 01/29/17 at 21:00; Stop 01/29/17 at 21:01; Status DC Furosemide (Lasix) 40 mg BID92 IVP Last administered on 01/30/17 11:01; Start 01/30/17 at 09:00; Stop 01/30/17 at 11:28; Status DC Lidocaine HCl (Xylocaine-Mpf 1% Vial) 2 ml STK-MED ONCE .ROUTE ; Start 01/29/17 at 20:37; Stop 01/29/17 at 20:38; Status DC Dextrose 250 ml @ 1,000 mls/hr 1X ONCE IV ; Start 01/30/17 at 07:45; Stop at 07:59; Status DC Glucose (Insta-Glucose) 15 gm PRN Q15MIN PRN PO LOW BLOOD SUGAR Last administered on 01/30/17 07:55; Start 01/30/17 at 08:00 Glucose (Insta-Glucose) 15 gm STK-MED ONCE .ROUTE ; Start 01/30/17 at 07:52; Stop 01/30/17 at 07:53; Status DC Lidocaine HCl (Xylocaine-Mpf 1% Vial) 2 ml STK-MED ONCE .ROUTE ; Start 01/29/17 at 21:00; Stop 01/30/17 at 09:01; Status DC Furosemide (Lasix) 40 mg DAILY IVP Last administered on 02/03/17 08:39; Start 01/31/17 at 09:00; Stop 02/03/17 at 15:50; Status DC Aspirin (Ecotrin) 81 mg DAILYWBKFT PO Last administered on 02/05/17 08:56; Start 01/30/17 at 12:30 Insulin Detemir (Levemir) 25 units QHS SQ Last administered on 02/02/17 20:54 ; Start 01/30/17 at 21:00; Stop 02/03/17 at 11:09; Status DC Gabapentin (Neurontin) 400 mg BID PO Last administered on 02/03/17 20:31; Start 01/31/17 at 09:00 Gabapentin (Neurontin) 100 mg 1X ONCE PO Last administered on 01/31/17 01:56 ; Start 01/31/17 at 02:00; Stop 01/31/17 at 02:01; Status DC Enoxaparin Sodium (Lovenox 40mg Syringe) 40 mg QHS SQ Last administered on 02/03 20:32; Start 01/31/17 at 21:00; Stop 02/04/17 at 09:32; Status DC Methylprednisolone Acetate (DEPO-Medrol 40MG VIAL) 40 mg 1X ONCE IM Last administered on 02/01/17 13:30; Start 02/01/17 at 13:30; Stop 02/01/17 at 13:31 ; Status DC Lidocaine/Sodium Bicarbonate (Buffered Lidocaine 1%) 20 ml 1X ONCE IJ Last administered on 02/01/17 13:30; Start 02/01/17 at 13:30; Stop 02/01/17 at 13:31 ; Status DC Labetalol HCl (Normodyne) 20 mg PRN Q2HR PRN IVP HYPERTENSION, SEE COMMENTS Last administered on 02/01/17 23:59; Start 02/01/17 at 23:30; Stop 02/03/17 at 15:47; Status DC Insulin Aspart (NovoLOG) 10 units TIDAC SQ Last administered on 02/04/17 12:35 ; Start 02/02/17 at 11:30 Insulin Aspart (NovoLOG VIAL) 15 unit 1X ONCE SQ ; Start 02/02/17 at 08:45; Stop 02/02/17 at 08:46; Status Cancel Insulin Aspart (NovoLOG) 15 units 1X ONCE SQ Last administered on 02/02/17 08 :42; Start 02/02/17 at 08:45; Stop 02/02/17 at 08:46; Status DC Loperamide HCl (Imodium) 2 mg PRN Q15MIN PRN PO DIARRHEA Last administered on 09:43; Start 02/02/17 at 11:15; Stop 02/03/17 at 12:31; Status DC Loperamide HCl (Imodium) 2 mg PRN Q15MIN PRN PO DIARRHEA Last administered on 01:35; Start 02/02/17 at 12:45; Stop 02/04/17 at 14:00; Status DC Insulin Detemir (Levemir) 35 units QHS SQ Last administered on 02/04/17 21:23 ; Start 02/03/17 at 21:00 Metoprolol Tartrate (Lopressor) 12.5 mg BID PO Last administered on 02/05/17 08 :56; Start 02/03/17 at 21:00 Furosemide (Lasix) 60 mg DAILY PO Last administered on 02/04/17 08:57; Start 02/04/17 at 09:00; Stop 02/04/17 at 14:34; Status DC Heparin Sodium (Porcine) (Heparin Sq) 5,000 unit Q8HRS SQ Last administered on 02/05/17 06:18; Start 02/04/17 at 14:00 Loperamide HCl (Imodium) 2 mg TID PO Last administered on 02/04/17 21:16; Start 02/04/17 at 14:00 Magnesium Sulfate/ Dextrose 50 ml @ 25 mls/hr PRN DAILY PRN IV for Mag < 1.7 on am labs; Start 02/04/17 at 14:30; Stop 02/05/17 at 10:05; Status DC Furosemide 100 mg/ Sodium Chloride 100 ml @ 0 mls/hr CONT PRN IV SEE I/O RECORD Last administered on 02/04/17 15:59; Start 02/04/17 at 14:30; Stop at 09:27; Status DC Acetylcysteine (Mucomyst 20% Oral Solution) 1,200 mg BID PO ; Start 02/05/17 at 09:00; Stop 02/07/17 at 08:59 Active Scripts Active Xanax (Alprazolam) 0.25 Mg Tablet 0.25 Mg PO QHS PRN Oxycodone-Acetaminophen 10-325 (Oxycodone Hcl/Acetaminophen) 1 Each Tablet 1 Tab PO PRN Q6HRS PRN Hydralazine Hcl 25 Mg Tablet 25 Mg PO BID Carvedilol 12.5 Mg Tablet 12.5 Mg PO BIDWMEALS Fluconazole 100 Mg Tablet 1 Tab PO DAILY Lasix (Furosemide) 40 Mg Tablet 40 Mg PO BID Reported Lisinopril 40 Mg Tablet 1 Tab PO DAILY Humalog (Insulin Lispro) 100 Unit/1 Ml Vial 50 Unit SQ TID Lortab 5-325 mg Tablet (Hydrocodone/Acetaminophen) 1 Each Tablet 1 Tab PO PRN Q6HRS PRN Levemir (Insulin Detemir) 100 Unit/1 Ml Vial 40 Unit SQ HS Victoza 3-Devon (Liraglutide) 0.6 Mg/0.1 Ml Pen.injctr 1.2 Mg SQ DAILY Gabapentin 300 Mg Capsule 1 Cap PO DAILY PRN Vitamin D3 (Cholecalciferol (Vitamin D3)) 5,000 Unit Tablet 1 Tab PO DAILY Glimepiride 4 Mg Tablet 1 Tab PO BID Tramadol Hcl 50 Mg Tablet 2 Tab PO BID Cyclobenzaprine Hcl 10 Mg Tablet 1 Tab PO BID Klor-Con 10 (Potassium Chloride) 10 Meq Tablet.er 1 Tab PO DAILY Omeprazole 20 Mg Capsule. 1 Cap PO DAILY Vitals/I & O Vital Sign - Last 24 Hours 02/04/17 02/04/17 02/04/17 02/04/17 11:00 15:00 19:16 19:38 Temp 97.9 98.1 98.2 97.9 98.1 98.2 Pulse 56 67 79 Resp 20 18 18 B/P (MAP) 122/70 (87) 123/64 (83) 125/66 (85) Pulse Ox 97 98 97 O2 Delivery Room Air Room Air Room Air Room Air 02/04/17 02/04/17 02/04/17 02/04/17 19:39 21:16 21:16 22:19 Temp 97.8 97.8 Pulse 79 79 74 Resp 18 B/P (MAP) 125/66 125/66 139/68 (91) Pulse Ox 96 O2 Delivery Room Air Room Air 02/05/17 02/05/17 02/05/17 02/05/17 03:24 07:00 08:00 08:56 Temp 98.0 98.1 98.0 98.1 Pulse 64 70 70 Resp 20 18 B/P (MAP) 154/79 (104) 125/73 (90) 125/73 Pulse Ox 97 99 O2 Delivery Room Air Room Air Room Air 02/05/17 02/05/17 08:56 08:57 Pulse 70 70 B/P (MAP) 125/73 125/73 Intake and Output 02/04/17 02/04/17 02/05/17 15:00 23:00 07:00 Intake Total 1850 ml 300 ml Output Total 150 ml 1700 ml Balance 1700 ml -1400 ml DHRUV LACEY MD Feb 05, 2017 10:42
--- NOTE | 2017-02-05 10:52 | PDOC ---
Provider Note Provider Note RHC indicated to evaluate pressures for definitive evaluation of volume status with diuresis and worsening renal function. D/w primary tool dresser. R/b/a discussed with patient and is agreeable. Will proceed with later this afternoon. EVON SEYMOUR APRN Feb 05, 2017 10:52
[2017-02-05 11:00] VITALS: BP 141/77
[2017-02-05 11:05] LABS: % SAT IRON 9 % (15-34); IRON,SERUM 25 ug/dL (50-170)
[2017-02-05 14:30] LABS: HEP A IGM ABDY Negative (Negative); HEP B SURFACE ABDY Non Reactive (.)
[2017-02-05 15:00] VITALS: BP 149/80
[2017-02-05] MEDS: PANTOPRAZOLE 40 MG TABLET.DR. PO SCH (16:09)
[2017-02-05] MEDS: CHOLECALCIFEROL (VITAMIN D3) 5,000 UNIT CAPSULE PO SCH (16:09)
[2017-02-05] MEDS: FLUCONAZOLE 100 MG TABLET. PO SCH (16:10)
[2017-02-05 19:45] VITALS: BP 126/62
[2017-02-05] MEDS: INSULIN DETEMIR 300 UNITS/3 ML INSULN.PEN. SQ SCH (22:22)
[2017-02-05 22:23] VITALS: BP 124/74
--- NOTE | 2017-02-05 23:45 | PDOC ---
Provider Note Provider Note Due to timing issues, cath could not be completed today. Will plan for RHC ONLY tomorrow. Normal EF, low suspicion for any significant CAD LEON GARDNER MD Feb 05, 2017 23:45
[2017-02-06] VITALS (13 sets, daily range): BP systolic 137–171; BP diastolic 64–116
[2017-02-06] MEDS: HEPARIN PF for SUB-Q USE 5,000 UNIT/0.5 ML VIAL. SQ SCH ×3 (01:13→22:01)
[2017-02-06] MEDS: oxyCODONE IR 5 MG TABLET PO PRN ×2 (02:33→08:19)
[2017-02-06] MEDS: ALPRAZolam 0.25 MG TABLET PO PRN ×2 (02:33→20:50)
[2017-02-06 05:39] LABS: BASO % 0 % (0-3); EOS % 2 % (0-3); HEMATOCRIT 31.7 % (36.0-47.0); HEMOGLOBIN 10.7 g/dL (12.0-15.5); LYMPH # 1.7 x10^3/uL (1.0-4.8); LYMPH % 18 % (24-48); MEAN CORPUSCULAR HEMOGLOBIN 29 pg (25-35); MEAN CORPUSCULAR HGB CONC 34 g/dL (31-37); MEAN CORPUSCULAR VOLUME 86 fL (79-100); MONO % 7 % (0-9); NEUT % 73 % (31-73); PLATELET COUNT 154 x10^3/uL (140-400); RED BLOOD COUNT 3.68 x10^6/uL (3.50-5.40); WHITE BLOOD COUNT 9.8 x10^3/uL (4.0-11.0)
[2017-02-06 06:03] LABS: ALBUMIN 2.9 g/dL (3.4-5.0); CALCIUM 8.5 mg/dL (8.5-10.1); GFR 15.5; PHOSPHORUS 4.2 mg/dL (2.6-4.7)
[2017-02-06 06:05] LABS: POTASSIUM 5.4 mmol/L (3.5-5.1)
[2017-02-06] MEDS: INSULIN ASPART 300 UNITS/3 ML INSULN.PEN SQ SCH ×6 (07:30→17:00)
[2017-02-06] MEDS: GLIMEPIRIDE 2 MG TABLET. PO SCH ×2 (08:00→18:51)
[2017-02-06] MEDS: ACETYLCYSTEINE 20% ORAL SOLN 600 MG/3 ML SYRINGE. PO SCH ×2 (08:16→20:49)
[2017-02-06] MEDS: hydrALAZINE 25 MG TABLET PO SCH ×2 (08:17→20:51)
[2017-02-06] MEDS: METOPROLOL TART IMMED RELEASE 25 MG TABLET. PO SCH ×2 (08:18→20:50)
[2017-02-06] MEDS: LISINOPRIL 40 MG TABLET. PO SCH (08:18)
[2017-02-06] MEDS: ASPIRIN ENTERIC COATED 81 MG TABLET.DR. PO SCH (08:18)
[2017-02-06] MEDS: CYCLOBENZAPRINE 10 MG TABLET. PO SCH ×2 (09:00→20:50)
[2017-02-06] MEDS: GABAPENTIN 400 MG CAPSULE. PO SCH ×2 (09:00→20:50)
[2017-02-06] MEDS: LOPERAMIDE 2 MG CAPSULE PO SCH ×3 (09:00→20:51)
[2017-02-06] MEDS ORDERED: SODIUM POLYSTYRENE SULFONATE 15 GM/60 ML ORAL.SUSP. PO ONE (09:30)
[2017-02-06] MEDS ORDERED: INSULIN REGULAR 100 UNIT/ML 10ML VIAL. IV ONE (09:30)
[2017-02-06] MEDS ORDERED: DEXTROSE 25% 10 ML DISP.SYRIN. IV ONE (09:30)
--- NOTE | 2017-02-06 10:06 | PDOC ---
Subjective: Subjective: Feels weak. Diarrhea better - "mashed potato" stools now. Objective: Objective: Per RN - cath today, diarrhea better but orders for Kayexalate. Vital Signs: Vital Signs Date Time Temp Pulse Resp B/P (MAP) Pulse Ox O2 Delivery O2 Flow Rate FiO2 02/06/17 08:19 Room Air 02/06/17 08:18 91 146/79 02/06/17 07:44 98.2 19 96 98.2 Labs: Laboratory Tests Test 02/05/17 12:20 02/05/17 17:24 02/05/17 20:13 02/05/17 22:13 Glucose (Fingerstick) 121 mg/dL 123 mg/dL 162 mg/dL 150 mg/dL Test 02/06/17 05:00 02/06/17 07:47 White Blood Count 9.8 x10^3/uL Red Blood Count 3.68 x10^6/uL Hemoglobin 10.7 g/dL Hematocrit 31.7 % Mean Corpuscular Volume 86 fL Mean Corpuscular Hemoglobin 29 pg Mean Corpuscular Hemoglobin Concent 34 g/dL Red Cell Distribution Width 16.0 % Platelet Count 154 x10^3/uL Neutrophils (%) (Auto) 73 % Lymphocytes (%) (Auto) 18 % Monocytes (%) (Auto) 7 % Eosinophils (%) (Auto) 2 % Basophils (%) (Auto) 0 % Neutrophils # (Auto) 7.2 x10^3uL Lymphocytes # (Auto) 1.7 x10^3/uL Monocytes # (Auto) 0.7 x10^3/uL Eosinophils # (Auto) 0.2 x10^3/uL Basophils # (Auto) 0.0 x10^3/uL Sodium Level 143 mmol/L Potassium Level 5.4 mmol/L Chloride Level 109 mmol/L Carbon Dioxide Level 23 mmol/L Anion Gap 11 Blood Urea Nitrogen 49 mg/dL Creatinine 3.0 mg/dL Estimated GFR (Cockcroft-Gault) 15.5 Glucose Level 146 mg/dL Calcium Level 8.5 mg/dL Phosphorus Level 4.2 mg/dL Magnesium Level 1.9 mg/dL Albumin 2.9 g/dL Glucose (Fingerstick) 121 mg/dL PE: GEN: looks worse today, sitting on edge of bed, PT present w/ walker EXTREM: BLE edema NEURO/PSYCH: A & O 3 A/P: CHF, CKD, hyperkalemia Weakness Diarrhea - improved w/ Imodium TID -?FAP, s/p colectomy, h/o rectal adenoma in 2014 S/p Serafin shunt, staple line broken down on EGD in 2014 -on PPI -- Possible heart cath today, note hyperkalemia and plans for Kayexalate. ANALI JOHNSON Feb 06, 2017 10:06
[2017-02-06] MEDS ORDERED: LIDOCAINE 2% 20 ML VIAL. ONE (10:10)
[2017-02-06] MEDS ORDERED: MIDAZOLAM HCL/PF 2 MG/2 ML VIAL. ONE (10:39)
[2017-02-06] MEDS ORDERED: fentaNYL PF VIAL 100 MCG/2 ML VIAL ONE (10:39)
--- NOTE | 2017-02-06 11:10 | PDOC ---
MODERATE SEDATION ASSESSMENT RISKS/ALTERNATIVES Risks/Alternatives Risks and alternatives of this type of sedation and procedure discussed with: RISK/ALTERNATIVES: Patient H & P ON CHART H & P H & P on chart and reviewed for co-morbid conditions and appropriate labs. H&P ON CHART: Yes STATUS PREG STATUS ASSESSED: N/A MEDS/ALLERGIES REVIEWED Meds/Allergies Reviewed Medications and Allergies including time and route of recently administered narcotics and sedatives. MEDS/ALLERGIES REVIEWED: Yes ASA RATING ASA RATING: II AIRWAY ASSESSMENT Airway Assessment Airway patency, oral function limitations, presence of caps, crowns, dentures, partials, and ability to extend neck assessed. AIRWAY ASSESSMENT: Yes MALLAMPATI SCORE MALLAMPATI SCORE: II PRE-SEDATION ASSESSMENT PRE-SEDATION ASSESSMENT: Yes TATY MORIN MD Feb 06, 2017 11:10
[2017-02-06] MEDS ORDERED: NITROGLYCERIN SUBLINGUAL 0.4 MG BOTTLE OF 25. SL PRN (11:15)
[2017-02-06] MEDS ORDERED: LIDOCAINE 2% 20 ML VIAL. IJ ONE (11:15)
[2017-02-06] MEDS ORDERED: fentaNYL PF VIAL 100 MCG/2 ML VIAL IV ONE (11:15)
[2017-02-06] MEDS ORDERED: 0.9 % SODIUM CHLORIDE 10 ML DISP.SYRIN. IV PRN (11:15)
[2017-02-06] MEDS ORDERED: MIDAZOLAM HCL/PF 2 MG/2 ML VIAL. IV ONE (11:15)
--- NOTE | 2017-02-06 11:34 | CARD ---
APPROVED REPORT Procedure(s) performed: Right Heart Catheterization INDICATION The indication(s) include : Acute on chronic diastolic heart failure, pulmonary hypertension. PROCEDURE NARRATIVE After explaining the risks, benefits and alternative options, informed consent was obtained from archie ent. Patient brought to the cardiac [employer] and her right groin was prepped and draped in the usual fashion. 20 mL of 2% lidocaine was infiltrated into skin and subcutaneous tissues for local anesthesi a. Venous access was obtained in the right common femoral vein an 8 [place] sheath was inserted. A 7.5 [place] Wilton-Ralph catheter was advanced under fluoroscopic guidance and intracardiac pressures, oxyge n saturations and cardiac output by thermodilution method were measured. Patient tolerated the proced ure well. Hemostasis was achieved using manual compression. There were no immediate complications. FINDINGS 1. Intracardiac pressures: Mean right atrial pressure 17 mmHg, right ventricle pressure 75/4 mmHg, pulmonary arterial pressure 71/32 mmHg, mean PA pressure 49 mmHg, mean pulmonary capillary wedge pres sure 21 mmHg. 2. Oxygen saturations: Right atrium 63.8%, pulmonary artery 60.6%, femoral artery 94%. No evidence for intracardiac shunt. 3. Cardiac output by thermodilution method 7 L/m Conclusion 1. Moderate pulmonary hypertension 2. Elevated pulmonary capillary wedge pressure of 21 mmHg consistent with decompensated left-sided h eart failure 3. No evidence for intracardiac shunt
--- NOTE | 2017-02-06 12:22 | PDOC ---
SUBJECTIVE ROS CKD IV/ ansarca just back from [facility] - drowsy but arousable CVS: no Orthopnea, no CP RESP: no SOB, no RYAN GI: no Nausea, no Vomiting : no Dysuria, no Urgency OBJECTIVE Vital Signs Vital Signs Date Time Temp Pulse Resp B/P (MAP) Pulse Ox O2 Delivery O2 Flow Rate FiO2 02/06/17 11:17 89 21 96 Nasal Cannula 2.0 02/06/17 10:12 98.6 168/79 (108) 98.6 I & 0 Intake and Output 02/06/17 07:00 Intake Total 280 ml Output Total 2875 ml Balance -2595 ml Intake Oral 180 ml IV Total 100 ml Output Urine Total 2875 ml PHYSICAL EXAM Physical Exam General Appearance: Drowsy currently In no Distress Eyes: VIsion Unchanged Conjunctiva Normal EN: No EN Drainage Mucous Memb. moist Neck: no JVD + JVP Supple no Thyromegaly CVS: S1 S2 + Murmur No Gallop No Rub +2 Edema Resp: no Rales no Rhonchi no Acc. Muscle use GI: BS +ve NO Bruit Non Tender Non Distended; Obese : no CVA tenderness; no Suprapubic Tenderness SKIN: no Rashes Breast Exam deferred; Changes of Ch Venous stasis Mu.Sk: Adequate ROM no Muscle Atrophy Heme: Unable to palpate Obvious LAD no palp Splenomegaly NEURO: Good Strength and Tone Cranial Nerves II - XII grossly intact; no asterixis Psych: not Depressed no Active hallucination - on last check Assessment & Plan CKD IV: Current FLuid and E-lyte status does not necessitate emergent need for Dialysis. Will re-evaluate for Dialysis in am . Pt understands proximity to needing [employer] and does not want to wait to develop Uremia S/S ("I don't handle being sick too well") - 24-hr Urine collection results P ^K - despite change to renal diet; D/c NSAIDs - restart Lasix gtt anasarca with ^ed PCWP - restart Lasix gtt Anemia: IV Iron; may need to start Epogen Transfuse as needed. marginally ^ed Phos - better on renal diet HTN: Current BP meds reviewed. See orders for changes. Discussed Plan of Care and prognosis etc. at length with pt and RN COMMENT/RELEVANT DATA Meds Current Medications Medications (Trade) Dose Ordered Sig/Aileen Start Time Stop Time Status Last Admin Dose Admin Acetaminophen (Tylenol) 650 mg PRN Q6HRS PRN 01/29/17 18:45 Acetaminophen/ Hydrocodone Bitart (Lortab 5/325) 1 tab PRN Q6HRS PRN 01/29/17 18:45 01/29/17 22:31 1 TAB Acetylcysteine (Mucomyst 20% Oral Solution) 1,200 mg BID 02/05/17 09:00 02/07/17 08:59 02/06/17 08:16 1,200 MG Alprazolam (Xanax) 0.25 mg QHS PRN 01/29/17 18:45 02/06/17 02:33 0.25 MG Aspirin (Ecotrin) 81 mg DAILYWBKFT 01/30/17 12:30 02/06/17 08:18 81 MG Bisacodyl (Dulcolax Supp) 10 mg PRN DAILY PRN 01/29/17 18:45 02/02/17 11:08 DC Carvedilol (Coreg) 12.5 mg BIDWMEALS 01/29/17 19:00 01/30/17 11:28 DC 01/29/17 21:51 12.5 MG Cyclobenzaprine HCl (Flexeril) 10 mg BID 01/29/17 21:00 02/05/17 22:05 10 MG Dextrose 10 ml 1X ONCE 02/06/17 09:30 02/06/17 09:31 DC 02/06/17 09:56 10 ML Dextrose (Dextrose 50%-Water Syringe) 12.5 gm PRN Q15MIN PRN 01/29/17 18:45 Docusate Sodium (Colace) 100 mg BID 01/29/17 21:00 02/02/17 11:08 DC 02/01/17 08:42 100 MG Enoxaparin Sodium (Lovenox 40mg Syringe) 40 mg QHS 01/31/17 21:00 02/04/17 09:32 DC 02/03/17 20:32 40 MG Fentanyl Citrate (Fentanyl 2ml Vial) 50 mcg 1X ONCE 02/06/17 11:15 02/06/17 11:16 DC 02/06/17 11:11 50 MCG Fluconazole (Diflucan) 100 mg DAILY 01/30/17 09:00 02/05/17 16:10 100 MG Furosemide (Lasix) 60 mg DAILY 02/04/17 09:00 02/04/17 14:34 DC 02/04/17 08:57 60 MG Furosemide 100 mg/ Sodium Chloride 100 ml @ 0 mls/hr CONT PRN 02/04/17 14:30 02/05/17 09:27 DC 02/04/17 15:59 5 MLS/HR Gabapentin (Neurontin) 100 mg 1X ONCE 01/31/17 02:00 01/31/17 02:01 DC 01/31/17 01:56 100 MG Glimepiride (Amaryl) 4 mg BIDWMEALS 01/30/17 09:00 02/05/17 16:11 4 MG Glucose (Insta-Glucose) 15 gm STK-MED ONCE 01/30/17 07:52 01/30/17 07:53 DC Heparin Sodium (Porcine) (Heparin Sq) 5,000 unit Q8HRS 02/04/17 14:00 02/05/17 22:00 5,000 UNIT Heparin Sodium/ Sodium Chloride 1,000 unit 1X ONCE 02/06/17 11:15 02/06/17 11:16 DC 02/06/17 11:10 1,000 UNIT Hydralazine HCl (Apresoline) 25 mg BID 01/29/17 21:00 02/06/17 08:17 25 MG Ibuprofen (Motrin) 400 mg PRN Q6HRS PRN 01/29/17 18:45 02/05/17 09:24 DC Insulin Aspart (NovoLOG VIAL) 15 unit 1X ONCE 02/02/17 08:45 02/02/17 08:46 Cancel Insulin Aspart (NovoLOG) 15 units 1X ONCE 02/02/17 08:45 02/02/17 08:46 DC 02/02/17 08:42 6 UNITS Insulin Detemir (Levemir) 35 units QHS 02/03/17 21:00 02/05/17 22:22 35 UNITS Insulin Human Regular (NovoLIN R VIAL) 10 unit 1X ONCE 02/06/17 09:30 02/06/17 09:31 DC 02/06/17 09:59 10 UNIT Labetalol HCl (Normodyne) 20 mg PRN Q2HR PRN 02/01/17 23:30 02/03/17 15:47 DC 02/01/17 23:59 20 MG Lactulose 20 gm PRN Q12HR PRN 01/29/17 18:45 Lidocaine HCl 20 ml 1X ONCE 02/06/17 11:15 02/06/17 11:16 DC 02/06/17 11:10 20 ML Lidocaine HCl (Xylocaine-Mpf 1% Vial) 2 ml STK-MED ONCE 01/29/17 21:00 01/30/17 09:01 DC Lidocaine/Sodium Bicarbonate (Buffered Lidocaine 1%) 20 ml 1X ONCE 02/01/17 13:30 02/01/17 13:31 DC 02/01/17 13:30 20 ML Lisinopril (Prinivil) 40 mg DAILY 01/30/17 09:00 02/06/17 08:18 40 MG Loperamide HCl (Imodium) 2 mg TID 02/04/17 14:00 02/05/17 22:03 2 MG Magnesium Hydroxide (Milk Of Magnesia) 2,400 mg PRN Q12HR PRN 01/29/17 18:45 Magnesium Sulfate/ Dextrose 50 ml @ 25 mls/hr PRN DAILY PRN 02/04/17 14:30 02/05/17 10:05 DC Methylprednisolone Acetate (DEPO-Medrol 40MG VIAL) 40 mg 1X ONCE 02/01/17 13:30 02/01/17 13:31 DC 02/01/17 13:30 40 MG Metoprolol Tartrate (Lopressor) 12.5 mg BID 02/03/17 21:00 02/06/17 08:18 12.5 MG Midazolam HCl (Versed) 1 mg 1X ONCE 02/06/17 11:15 02/06/17 11:16 DC 02/06/17 11:11 1 MG Nitroglycerin (Nitrostat) 0.4 mg PRN Q5MIN PRN 02/06/17 11:15 Non-Formulary Medication 1.2 mg DAILY 01/30/17 09:00 01/30/17 09:00 DC Oxycodone HCl (Roxicodone) 5 mg PRN Q3HRS PRN 01/29/17 18:45 02/06/17 08:19 5 MG Oxycodone/ Acetaminophen (Percocet 10/325) 1 tab PRN Q6HRS PRN 01/29/17 18:45 02/04/17 19:16 1 TAB Pantoprazole Sodium (Protonix) 40 mg DAILYAC 01/30/17 07:30 02/05/17 16:09 40 MG Potassium Chloride (Klor-Con) 10 meq DAILYWBKFT 01/30/17 08:00 02/05/17 09:21 DC 02/04/17 08:59 10 MEQ Sodium Polystyrene Sulfonate (Kayexalate) 30 gm 1X ONCE 02/06/17 09:30 02/06/17 09:31 DC 02/06/17 09:49 30 GM Sodium Chloride (Normal Saline Flush) 3 ml QSHIFT PRN 02/06/17 11:15 Tramadol HCl (Ultram) 100 mg BID 01/29/17 21:00 01/30/17 11:51 DC 01/29/17 21:50 100 MG Vitamin D (Vitamin D3) 5,000 unit DAILY 01/30/17 09:00 02/05/17 16:09 5,000 UNIT Zolpidem Tartrate (Ambien) 5 mg PRN QHS PRN 01/29/17 18:45 Lab Laboratory Tests Test 02/05/17 12:20 02/05/17 17:24 02/05/17 20:13 02/05/17 22:13 Glucose (Fingerstick) 121 mg/dL (70-99) 123 mg/dL (70-99) 162 mg/dL (70-99) 150 mg/dL (70-99) Test 02/06/17 05:00 02/06/17 07:47 02/06/17 10:14 White Blood Count 9.8 x10^3/uL (4.0-11.0) Red Blood Count 3.68 x10^6/uL (3.50-5.40) Hemoglobin 10.7 g/dL (12.0-15.5) Hematocrit 31.7 % (36.0-47.0) Mean Corpuscular Volume 86 fL (79-100) Mean Corpuscular Hemoglobin 29 pg (25-35) Mean Corpuscular Hemoglobin Concent 34 g/dL (31-37) Red Cell Distribution Width 16.0 % (11.5-14.5) Platelet Count 154 x10^3/uL (140-400) Neutrophils (%) (Auto) 73 % (31-73) Lymphocytes (%) (Auto) 18 % (24-48) Monocytes (%) (Auto) 7 % (0-9) Eosinophils (%) (Auto) 2 % (0-3) Basophils (%) (Auto) 0 % (0-3) Neutrophils # (Auto) 7.2 x10^3uL (1.8-7.7) Lymphocytes # (Auto) 1.7 x10^3/uL (1.0-4.8) Monocytes # (Auto) 0.7 x10^3/uL (0.0-1.1) Eosinophils # (Auto) 0.2 x10^3/uL (0.0-0.7) Basophils # (Auto) 0.0 x10^3/uL (0.0-0.2) Sodium Level 143 mmol/L (136-145) Potassium Level 5.4 mmol/L (3.5-5.1) Chloride Level 109 mmol/L (98-107) Carbon Dioxide Level 23 mmol/L (21-32) Anion Gap 11 (6-14) Blood Urea Nitrogen 49 mg/dL (7-20) Creatinine 3.0 mg/dL (0.6-1.0) Estimated GFR (Cockcroft-Gault) 15.5 Glucose Level 146 mg/dL (70-99) Calcium Level 8.5 mg/dL (8.5-10.1) Phosphorus Level 4.2 mg/dL (2.6-4.7) Magnesium Level 1.9 mg/dL (1.8-2.4) Albumin 2.9 g/dL (3.4-5.0) Glucose (Fingerstick) 121 mg/dL (70-99) 70 mg/dL (70-99) Other 1. Intracardiac pressures: Mean right atrial pressure 17 mmHg, right ventricle pressure 75/4 mmHg, pulmonary arterial pressure 71/32 mmHg, mean PA pressure 49 mmHg, mean pulmonary capillary wedge pressure 21 mmHg. Cardiac output by thermodilution method 7 L/m Conclusion 1. Moderate pulmonary hypertension 2. Elevated pulmonary capillary wedge pressure of 21 mmHg consistent with decompensated left-sided heart failure MAJO DRAKE MD Feb 06, 2017 12:22
--- NOTE | 2017-02-06 12:43 | PDOC ---
PROGRESS NOTES Chief Complaint Chief Complaint 1. Acute-on chronic congestive heart failure, likely systolic versus diastolic or combined. 2. s/p [facility] - 02/06/17- normal 2. Old lymphedema. 3. Obesity. 4. Diabetes type 2. Unknown Hgb A1c. 6. Chronic kidney disease. 7. Anemia of chronic disease. 8. Limited mobility, wheelchair-bound. 9. Chest heaviness. 10. Diarrhea x 2 weeks, hx subtotal colectomy (family hx Familial polyposis?) History of Present Illness History of Present Illness All medical issues she has been admitted for seems to have resolved Legs better, Diarrhea better with imodium NO SOA Just got back from [facility] - NORMAL PRESSURES BUT CReatinine 3.0 K high today 5.4 - was getting Kcl; 10 meqs supplements Needs to STOP lasix at home, per renal advise Requiring less insulin here than her home dose HH arranged BS moderately high PLAN: KAyexylate now LAsix ordered by renal to address hyperkal To keep dhaliwal pending UO after lasix today I did give temporizing measures for Hyperkal - dextrose and insulin MAR done Dw RN and pt STop lasix on dc Ff up renal as oP 1 month Vitals Vitals Vital Signs Date Time Temp Pulse Resp B/P (MAP) Pulse Ox O2 Delivery O2 Flow Rate FiO2 02/06/17 11:17 89 21 96 Nasal Cannula 2.0 02/06/17 10:12 98.6 168/79 (108) 98.6 Physical Exam General: Alert, Oriented X3, Cooperative, No acute distress Heart: Regular rate, Normal S1, Normal S2, No murmurs Lungs: Clear, Other (no wheezing) Abdomen: Normal bowel sounds, Soft, No tenderness, No hepatosplenomegaly, No masses, Other Extremities: No cyanosis, Other (chronic lymphedema, LE's) Skin: No significant lesion Labs LABS Laboratory Tests Test 02/05/17 17:24 02/05/17 20:13 02/05/17 22:13 02/06/17 05:00 Glucose (Fingerstick) 123 mg/dL (70-99) 162 mg/dL (70-99) 150 mg/dL (70-99) White Blood Count 9.8 x10^3/uL (4.0-11.0) Red Blood Count 3.68 x10^6/uL (3.50-5.40) Hemoglobin 10.7 g/dL (12.0-15.5) Hematocrit 31.7 % (36.0-47.0) Mean Corpuscular Volume 86 fL (79-100) Mean Corpuscular Hemoglobin 29 pg (25-35) Mean Corpuscular Hemoglobin Concent 34 g/dL (31-37) Red Cell Distribution Width 16.0 % (11.5-14.5) Platelet Count 154 x10^3/uL (140-400) Neutrophils (%) (Auto) 73 % (31-73) Lymphocytes (%) (Auto) 18 % (24-48) Monocytes (%) (Auto) 7 % (0-9) Eosinophils (%) (Auto) 2 % (0-3) Basophils (%) (Auto) 0 % (0-3) Neutrophils # (Auto) 7.2 x10^3uL (1.8-7.7) Lymphocytes # (Auto) 1.7 x10^3/uL (1.0-4.8) Monocytes # (Auto) 0.7 x10^3/uL (0.0-1.1) Eosinophils # (Auto) 0.2 x10^3/uL (0.0-0.7) Basophils # (Auto) 0.0 x10^3/uL (0.0-0.2) Sodium Level 143 mmol/L (136-145) Potassium Level 5.4 mmol/L (3.5-5.1) Chloride Level 109 mmol/L (98-107) Carbon Dioxide Level 23 mmol/L (21-32) Anion Gap 11 (6-14) Blood Urea Nitrogen 49 mg/dL (7-20) Creatinine 3.0 mg/dL (0.6-1.0) Estimated GFR (Cockcroft-Gault) 15.5 Glucose Level 146 mg/dL (70-99) Calcium Level 8.5 mg/dL (8.5-10.1) Phosphorus Level 4.2 mg/dL (2.6-4.7) Magnesium Level 1.9 mg/dL (1.8-2.4) Albumin 2.9 g/dL (3.4-5.0) Test 02/06/17 07:47 02/06/17 10:14 Glucose (Fingerstick) 121 mg/dL (70-99) 70 mg/dL (70-99) Review of Systems Review of Systems drowsy from anesthesia post cath Comment Review of Relevant I have reviewed the following items kai (where applicable) has been applied. Labs Laboratory Tests Test 02/04/17 14:50 02/04/17 17:31 02/04/17 20:22 02/05/17 03:25 Estimated GFR (Non- 16 (>59) EGFR 18 (>59) PTH (Intact) Specimen Description Comment (.) Parathyroid Hormone (Intact) 249 pg/mL (15-65) Calcium (PTH Intact) 8.3 mg/dL (8.7-10.3) Creatinine (PTH Intact) 2.96 mg/dL (0.57-1.00) Phosphorus (PTH Intact) 4.4 mg/dL (2.5-4.5) Hepatitis A IgM Antibody Negative (Negative) Hepatitis B Surface Antigen Negative (Negative) Hepatitis B Surface Antibody Non reactive (.) Hepatitis B Core Total Antibody Negative (Negative) Hepatitis B Core IgM Antibody Negative (Negative) Hepatitis C Antibody <0.1 s/co ratio Glucose (Fingerstick) 121 mg/dL (70-99) 294 mg/dL (70-99) White Blood Count 8.7 x10^3/uL (4.0-11.0) Red Blood Count 3.78 x10^6/uL (3.50-5.40) Hemoglobin 10.6 g/dL (12.0-15.5) Hematocrit 33.9 % (36.0-47.0) Mean Corpuscular Volume 90 fL (79-100) Mean Corpuscular Hemoglobin 28 pg (25-35) Mean Corpuscular Hemoglobin Concent 31 g/dL (31-37) Red Cell Distribution Width 17.1 % (11.5-14.5) Platelet Count 157 x10^3/uL (140-400) Neutrophils (%) (Auto) 54 % (31-73) Lymphocytes (%) (Auto) 34 % (24-48) Monocytes (%) (Auto) 7 % (0-9) Eosinophils (%) (Auto) 4 % (0-3) Basophils (%) (Auto) 1 % (0-3) Neutrophils # (Auto) 4.7 x10^3uL (1.8-7.7) Lymphocytes # (Auto) 2.9 x10^3/uL (1.0-4.8) Monocytes # (Auto) 0.6 x10^3/uL (0.0-1.1) Eosinophils # (Auto) 0.3 x10^3/uL (0.0-0.7) Basophils # (Auto) 0.1 x10^3/uL (0.0-0.2) Sodium Level 141 mmol/L (136-145) Potassium Level 5.5 mmol/L (3.5-5.1) Chloride Level 109 mmol/L (98-107) Carbon Dioxide Level 24 mmol/L (21-32) Anion Gap 8 (6-14) Blood Urea Nitrogen 49 mg/dL (7-20) Creatinine 3.3 mg/dL (0.6-1.0) Estimated GFR (Cockcroft-Gault) 13.9 Glucose Level 225 mg/dL (70-99) Calcium Level 8.2 mg/dL (8.5-10.1) Phosphorus Level 4.9 mg/dL (2.6-4.7) Magnesium Level 2.1 mg/dL (1.8-2.4) Iron Level 25 ug/dL (50-170) Total Iron Binding Capacity 273 ug/dL (250-450) Iron Saturation 9 % (15-34) Ferritin 41 ng/mL (8-252) Albumin 2.8 g/dL (3.4-5.0) Test 02/05/17 08:27 02/05/17 12:20 02/05/17 17:24 02/05/17 20:13 Glucose (Fingerstick) 155 mg/dL (70-99) 121 mg/dL (70-99) 123 mg/dL (70-99) 162 mg/dL (70-99) Test 02/05/17 22:13 02/06/17 05:00 02/06/17 07:47 02/06/17 10:14 Glucose (Fingerstick) 150 mg/dL (70-99) 121 mg/dL (70-99) 70 mg/dL (70-99) White Blood Count 9.8 x10^3/uL (4.0-11.0) Red Blood Count 3.68 x10^6/uL (3.50-5.40) Hemoglobin 10.7 g/dL (12.0-15.5) Hematocrit 31.7 % (36.0-47.0) Mean Corpuscular Volume 86 fL (79-100) Mean Corpuscular Hemoglobin 29 pg (25-35) Mean Corpuscular Hemoglobin Concent 34 g/dL (31-37) Red Cell Distribution Width 16.0 % (11.5-14.5) Platelet Count 154 x10^3/uL (140-400) Neutrophils (%) (Auto) 73 % (31-73) Lymphocytes (%) (Auto) 18 % (24-48) Monocytes (%) (Auto) 7 % (0-9) Eosinophils (%) (Auto) 2 % (0-3) Basophils (%) (Auto) 0 % (0-3) Neutrophils # (Auto) 7.2 x10^3uL (1.8-7.7) Lymphocytes # (Auto) 1.7 x10^3/uL (1.0-4.8) Monocytes # (Auto) 0.7 x10^3/uL (0.0-1.1) Eosinophils # (Auto) 0.2 x10^3/uL (0.0-0.7) Basophils # (Auto) 0.0 x10^3/uL (0.0-0.2) Sodium Level 143 mmol/L (136-145) Potassium Level 5.4 mmol/L (3.5-5.1) Chloride Level 109 mmol/L (98-107) Carbon Dioxide Level 23 mmol/L (21-32) Anion Gap 11 (6-14) Blood Urea Nitrogen 49 mg/dL (7-20) Creatinine 3.0 mg/dL (0.6-1.0) Estimated GFR (Cockcroft-Gault) 15.5 Glucose Level 146 mg/dL (70-99) Calcium Level 8.5 mg/dL (8.5-10.1) Phosphorus Level 4.2 mg/dL (2.6-4.7) Magnesium Level 1.9 mg/dL (1.8-2.4) Albumin 2.9 g/dL (3.4-5.0) Laboratory Tests Test 02/05/17 17:24 02/05/17 20:13 02/05/17 22:13 6/2/17 05:00 Glucose (Fingerstick) 123 mg/dL (70-99) 162 mg/dL (70-99) 150 mg/dL (70-99) White Blood Count 9.8 x10^3/uL (4.0-11.0) Red Blood Count 3.68 x10^6/uL (3.50-5.40) Hemoglobin 10.7 g/dL (12.0-15.5) Hematocrit 31.7 % (36.0-47.0) Mean Corpuscular Volume 86 fL (79-100) Mean Corpuscular Hemoglobin 29 pg (25-35) Mean Corpuscular Hemoglobin Concent 34 g/dL (31-37) Red Cell Distribution Width 16.0 % (11.5-14.5) Platelet Count 154 x10^3/uL (140-400) Neutrophils (%) (Auto) 73 % (31-73) Lymphocytes (%) (Auto) 18 % (24-48) Monocytes (%) (Auto) 7 % (0-9) Eosinophils (%) (Auto) 2 % (0-3) Basophils (%) (Auto) 0 % (0-3) Neutrophils # (Auto) 7.2 x10^3uL (1.8-7.7) Lymphocytes # (Auto) 1.7 x10^3/uL (1.0-4.8) Monocytes # (Auto) 0.7 x10^3/uL (0.0-1.1) Eosinophils # (Auto) 0.2 x10^3/uL (0.0-0.7) Basophils # (Auto) 0.0 x10^3/uL (0.0-0.2) Sodium Level 143 mmol/L (136-145) Potassium Level 5.4 mmol/L (3.5-5.1) Chloride Level 109 mmol/L (98-107) Carbon Dioxide Level 23 mmol/L (21-32) Anion Gap 11 (6-14) Blood Urea Nitrogen 49 mg/dL (7-20) Creatinine 3.0 mg/dL (0.6-1.0) Estimated GFR (Cockcroft-Gault) 15.5 Glucose Level 146 mg/dL (70-99) Calcium Level 8.5 mg/dL (8.5-10.1) Phosphorus Level 4.2 mg/dL (2.6-4.7) Magnesium Level 1.9 mg/dL (1.8-2.4) Albumin 2.9 g/dL (3.4-5.0) Test 02/06/17 07:47 02/06/17 10:14 Glucose (Fingerstick) 121 mg/dL (70-99) 70 mg/dL (70-99) Medications Current Medications Zolpidem Tartrate (Ambien) 5 mg PRN QHS PRN PO INSOMNIA, MAY REPEAT IN 1HR; Start 01/29/17 at 18:45 Oxycodone HCl (Roxicodone) 5 mg PRN Q3HRS PRN PO BREAKTHROUGH PAIN Last administered on 02/06/17 08:19; Start 01/29/17 at 18:45 Acetaminophen (Tylenol) 650 mg PRN Q6HRS PRN PO Headaches, Temp > 101.5F; Start 01/29/17 at 18:45 Ibuprofen (Motrin) 400 mg PRN Q6HRS PRN PO MILD PAIN; Start 01/29/17 at 18:45; Stop 02/05/17 at 09:24; Status DC Docusate Sodium (Colace) 100 mg BID PO Last administered on 02/01/17 08:42; Start 01/29/17 at 21:00; Stop 02/02/17 at 11:08; Status DC Magnesium Hydroxide (Milk Of Magnesia) 2,400 mg PRN Q12HR PRN PO CONSTIPATION; Start 01/29/17 at 18:45 Lactulose 20 gm PRN Q12HR PRN PO CONSTIPATION; Start 01/29/17 at 18:45 Bisacodyl (Dulcolax Supp) 10 mg PRN DAILY PRN MS CONSTIPATION; Start 01/29/17 at 18:45; Stop 02/02/17 at 11:08; Status DC Enoxaparin Sodium (Lovenox 40mg Syringe) 40 mg Q12HR SQ Last administered on 21:09; Start 01/29/17 at 22:00; Stop 01/31/17 at 07:12; Status DC Alprazolam (Xanax) 0.25 mg QHS PRN PO ANXIETY / AGITATION Last administered on 02/06/17 02:33; Start 01/29/17 at 18:45 Carvedilol (Coreg) 12.5 mg BIDWMEALS PO Last administered on 01/29/17 21:51; Start 01/29/17 at 19:00; Stop 01/30/17 at 11:28; Status DC Cyclobenzaprine HCl (Flexeril) 10 mg BID PO Last administered on 02/05/17 22:05 ; Start 01/29/17 at 21:00 Fluconazole (Diflucan) 100 mg DAILY PO Last administered on 02/05/17 16:10; Start 01/30/17 at 09:00 Furosemide (Lasix) 40 mg BID92 PO ; Start 01/30/17 at 09:00; Stop 01/30/17 at 09 :00; Status DC Hydralazine HCl (Apresoline) 25 mg BID PO Last administered on 02/06/17 08:17; Start 01/29/17 at 21:00 Acetaminophen/ Hydrocodone Bitart (Lortab 5/325) 1 tab PRN Q6HRS PRN PO MILD PAIN Last administered on 01/29/17 22:31; Start 01/29/17 at 18:45 Lisinopril (Prinivil) 40 mg DAILY PO Last administered on 02/06/17 08:18; Start 01/30/17 at 09:00 Oxycodone/ Acetaminophen (Percocet 10/325) 1 tab PRN Q6HRS PRN PO MODERATE- SEVERE PAIN Last administered on 02/04/17 19:16; Start 01/29/17 at 18:45 Tramadol HCl (Ultram) 100 mg BID PO Last administered on 01/29/17 21:50; Start 01/29/17 at 21:00; Stop 01/30/17 at 11:51; Status DC Vitamin D (Vitamin D3) 5,000 unit DAILY PO Last administered on 02/05/17 16:09 ; Start 01/30/17 at 09:00 Gabapentin (Neurontin) 300 mg PRN DAILY PRN PO NERVE PAIN Last administered on 02/04/17 19:16; Start 01/29/17 at 21:00 Glimepiride (Amaryl) 4 mg BIDWMEALS PO Last administered on 02/05/17 16:11; Start 01/30/17 at 09:00 Insulin Detemir (Levemir) 40 units QHS SQ Last administered on 01/29/17 22:01 ; Start 01/29/17 at 21:00; Stop 01/30/17 at 11:51; Status DC Insulin Aspart (NovoLOG) 50 units TIDAC SQ Last administered on 01/29/17 22:00 ; Start 01/29/17 at 19:00; Stop 01/30/17 at 11:51; Status DC Non-Formulary Medication 1.2 mg DAILY SQ ; Start 01/30/17 at 09:00; Stop at 09:00; Status DC Pantoprazole Sodium (Protonix) 40 mg DAILYAC PO Last administered on 02/05/17 16:09; Start 01/30/17 at 07:30 Potassium Chloride (Klor-Con) 10 meq DAILYWBKFT PO Last administered on 08:59; Start 01/30/17 at 08:00; Stop 02/05/17 at 09:21; Status DC Insulin Aspart (NovoLOG) 0-9 UNITS TIDWMEALS SQ Last administered on 02/02/17 17:29; Start 01/30/17 at 08:00 Dextrose (Dextrose 50%-Water Syringe) 12.5 gm PRN Q15MIN PRN IV SEE COMMENTS; Start 01/29/17 at 18:45 Furosemide (Lasix) 40 mg 1X ONCE IVP Last administered on 01/29/17 21:52; Start 01/29/17 at 21:00; Stop 01/29/17 at 21:01; Status DC Furosemide (Lasix) 40 mg BID92 IVP Last administered on 01/30/17 11:01; Start 01/30/17 at 09:00; Stop 01/30/17 at 11:28; Status DC Lidocaine HCl (Xylocaine-Mpf 1% Vial) 2 ml STK-MED ONCE .ROUTE ; Start 01/29/17 at 20:37; Stop 01/29/17 at 20:38; Status DC Dextrose 250 ml @ 1,000 mls/hr 1X ONCE IV ; Start 01/30/17 at 07:45; Stop at 07:59; Status DC Glucose (Insta-Glucose) 15 gm PRN Q15MIN PRN PO LOW BLOOD SUGAR Last administered on 01/30/17 07:55; Start 01/30/17 at 08:00 Glucose (Insta-Glucose) 15 gm STK-MED ONCE .ROUTE ; Start 01/30/17 at 07:52; Stop 01/30/17 at 07:53; Status DC Lidocaine HCl (Xylocaine-Mpf 1% Vial) 2 ml STK-MED ONCE .ROUTE ; Start 01/29/17 at 21:00; Stop 01/30/17 at 09:01; Status DC Furosemide (Lasix) 40 mg DAILY IVP Last administered on 02/03/17 08:39; Start 01/31/17 at 09:00; Stop 02/03/17 at 15:50; Status DC Aspirin (Ecotrin) 81 mg DAILYWBKFT PO Last administered on 02/06/17 08:18; Start 01/30/17 at 12:30 Insulin Detemir (Levemir) 25 units QHS SQ Last administered on 02/02/17 20:54 ; Start 01/30/17 at 21:00; Stop 02/03/17 at 11:09; Status DC Gabapentin (Neurontin) 400 mg BID PO Last administered on 02/03/17 20:31; Start 01/31/17 at 09:00 Gabapentin (Neurontin) 100 mg 1X ONCE PO Last administered on 01/31/17 01:56 ; Start 01/31/17 at 02:00; Stop 01/31/17 at 02:01; Status DC Enoxaparin Sodium (Lovenox 40mg Syringe) 40 mg QHS SQ Last administered on 02/03 20:32; Start 01/31/17 at 21:00; Stop 02/04/17 at 09:32; Status DC Methylprednisolone Acetate (DEPO-Medrol 40MG VIAL) 40 mg 1X ONCE IM Last administered on 02/01/17 13:30; Start 02/01/17 at 13:30; Stop 02/01/17 at 13:31 ; Status DC Lidocaine/Sodium Bicarbonate (Buffered Lidocaine 1%) 20 ml 1X ONCE IJ Last administered on 02/01/17 13:30; Start 02/01/17 at 13:30; Stop 02/01/17 at 13:31 ; Status DC Labetalol HCl (Normodyne) 20 mg PRN Q2HR PRN IVP HYPERTENSION, SEE COMMENTS Last administered on 02/01/17 23:59; Start 02/01/17 at 23:30; Stop 02/03/17 at 15:47; Status DC Insulin Aspart (NovoLOG) 10 units TIDAC SQ Last administered on 02/06/17 07:30 ; Start 02/02/17 at 11:30 Insulin Aspart (NovoLOG VIAL) 15 unit 1X ONCE SQ ; Start 02/02/17 at 08:45; Stop 02/02/17 at 08:46; Status Cancel Insulin Aspart (NovoLOG) 15 units 1X ONCE SQ Last administered on 02/02/17 08 :42; Start 02/02/17 at 08:45; Stop 02/02/17 at 08:46; Status DC Loperamide HCl (Imodium) 2 mg PRN Q15MIN PRN PO DIARRHEA Last administered on 09:43; Start 02/02/17 at 11:15; Stop 02/03/17 at 12:31; Status DC Loperamide HCl (Imodium) 2 mg PRN Q15MIN PRN PO DIARRHEA Last administered on 01:35; Start 02/02/17 at 12:45; Stop 02/04/17 at 14:00; Status DC Insulin Detemir (Levemir) 35 units QHS SQ Last administered on 02/05/17 22:22; Start 02/03/17 at 21:00 Metoprolol Tartrate (Lopressor) 12.5 mg BID PO Last administered on 02/06/17 08 :18; Start 02/03/17 at 21:00 Furosemide (Lasix) 60 mg DAILY PO Last administered on 02/04/17 08:57; Start 02/04/17 at 09:00; Stop 02/04/17 at 14:34; Status DC Heparin Sodium (Porcine) (Heparin Sq) 5,000 unit Q8HRS SQ Last administered on 02/05/17 22:00; Start 02/04/17 at 14:00 Loperamide HCl (Imodium) 2 mg TID PO Last administered on 02/05/17 22:03; Start 02/04/17 at 14:00 Magnesium Sulfate/ Dextrose 50 ml @ 25 mls/hr PRN DAILY PRN IV for Mag < 1.7 on am labs; Start 02/04/17 at 14:30; Stop 02/05/17 at 10:05; Status DC Furosemide 100 mg/ Sodium Chloride 100 ml @ 0 mls/hr CONT PRN IV SEE I/O RECORD Last administered on 02/04/17 15:59; Start 02/04/17 at 14:30; Stop at 09:27; Status DC Acetylcysteine (Mucomyst 20% Oral Solution) 1,200 mg BID PO Last administered on 02/06/17 08:16; Start 02/05/17 at 09:00; Stop 02/07/17 at 08:59 Sodium Polystyrene Sulfonate (Kayexalate) 30 gm 1X ONCE PO Last administered on 02/06/17 09:49; Start 02/06/17 at 09:30; Stop 02/06/17 at 09:31; Status DC Dextrose 10 ml 1X ONCE IV Last administered on 02/06/17 09:56; Start 02/06/17 at 09:30; Stop 02/06/17 at 09:31; Status DC Insulin Human Regular (NovoLIN R VIAL) 10 unit 1X ONCE IV Last administered on 02/06/17 09:59; Start 02/06/17 at 09:30; Stop 02/06/17 at 09:31; Status DC Heparin Sodium/ Sodium Chloride 500 ml @ As Directed STK-MED ONCE .ROUTE ; Start 02/06/17 at 10:10; Stop 02/06/17 at 10:11; Status DC Lidocaine HCl 20 ml STK-MED ONCE .ROUTE ; Start 02/06/17 at 10:10; Stop 02/06/17 at 10:11; Status DC Fentanyl Citrate (Fentanyl 2ml Vial) 100 mcg STK-MED ONCE .ROUTE ; Start at 10:39; Stop 02/06/17 at 10:40; Status DC Midazolam HCl (Versed) 2 mg STK-MED ONCE .ROUTE ; Start 02/06/17 at 10:39; Stop 02/06/17 at 10:40; Status DC Heparin Sodium/ Sodium Chloride 1,000 unit 1X ONCE IART Last administered on 11:10; Start 02/06/17 at 11:15; Stop 02/06/17 at 11:16; Status DC Midazolam HCl (Versed) 1 mg 1X ONCE IV Last administered on 02/06/17 11:11; Start 02/06/17 at 11:15; Stop 02/06/17 at 11:16; Status DC Fentanyl Citrate (Fentanyl 2ml Vial) 50 mcg 1X ONCE IV Last administered on 11:11; Start 02/06/17 at 11:15; Stop 02/06/17 at 11:16; Status DC Lidocaine HCl 20 ml 1X ONCE IJ Last administered on 02/06/17 11:10; Start 02/06 at 11:15; Stop 02/06/17 at 11:16; Status DC Sodium Chloride (Normal Saline Flush) 3 ml QSHIFT PRN IV AFTER MEDS AND BLOOD DRAWS; Start 02/06/17 at 11:15 Nitroglycerin (Nitrostat) 0.4 mg PRN Q5MIN PRN SL CHEST PAIN; Start 02/06/17 at 11:15 Iron Sucrose 200 mg/Sodium Chloride 110 ml @ 55 mls/hr 3X/WEEK IV ; Start at 13:00; Stop 02/16/17 at 10:59 Active Scripts Active Xanax (Alprazolam) 0.25 Mg Tablet 0.25 Mg PO QHS PRN Oxycodone-Acetaminophen 10-325 (Oxycodone Hcl/Acetaminophen) 1 Each Tablet 1 Tab PO PRN Q6HRS PRN Hydralazine Hcl 25 Mg Tablet 25 Mg PO BID Carvedilol 12.5 Mg Tablet 12.5 Mg PO BIDWMEALS Fluconazole 100 Mg Tablet 1 Tab PO DAILY Lasix (Furosemide) 40 Mg Tablet 40 Mg PO BID Reported Lisinopril 40 Mg Tablet 1 Tab PO DAILY Humalog (Insulin Lispro) 100 Unit/1 Ml Vial 50 Unit SQ TID Lortab 5-325 mg Tablet (Hydrocodone/Acetaminophen) 1 Each Tablet 1 Tab PO PRN Q6HRS PRN Levemir (Insulin Detemir) 100 Unit/1 Ml Vial 40 Unit SQ HS Victoza 3-Devon (Liraglutide) 0.6 Mg/0.1 Ml Pen.injctr 1.2 Mg SQ DAILY Gabapentin 300 Mg Capsule 1 Cap PO DAILY PRN Vitamin D3 (Cholecalciferol (Vitamin D3)) 5,000 Unit Tablet 1 Tab PO DAILY Glimepiride 4 Mg Tablet 1 Tab PO BID Tramadol Hcl 50 Mg Tablet 2 Tab PO BID Cyclobenzaprine Hcl 10 Mg Tablet 1 Tab PO BID Klor-Con 10 (Potassium Chloride) 10 Meq Tablet.er 1 Tab PO DAILY Omeprazole 20 Mg Capsule.dr 1 Cap PO DAILY Vitals/I & O Vital Sign - Last 24 Hours 02/05/17 02/05/17 02/05/17 02/05/17 15:00 19:45 20:00 22:04 Temp 98.6 98.8 98.6 98.8 Pulse 73 74 74 Resp 18 18 B/P (MAP) 149/80 (103) 126/62 (83) 126/62 Pulse Ox 96 95 O2 Delivery Room Air Room Air Room Air 02/05/17 02/05/17 02/06/17 02/06/17 22:04 22:23 02:33 03:22 Temp 98.1 98.1 98.1 98.1 Pulse 74 81 86 Resp 18 20 17 B/P (MAP) 126/62 124/74 (91) 151/89 (109) Pulse Ox 96 96 97 O2 Delivery Room Air Room Air Room Air 02/06/17 02/06/17 02/06/17 02/06/17 03:35 07:44 08:00 08:17 Temp 98.2 98.2 Pulse 91 91 Resp 19 B/P (MAP) 146/79 (101) 146/79 Pulse Ox 96 O2 Delivery Room Air Room Air Room Air 02/06/17 02/06/17 02/06/17 02/06/17 08:18 08:18 08:19 10:12 Temp 98.6 98.6 Pulse 91 91 84 Resp 19 B/P (MAP) 146/79 146/79 168/79 (108) Pulse Ox 96 O2 Delivery Room Air Room Air 02/06/17 02/06/17 11:11 11:17 Pulse 89 Resp 17 21 Pulse Ox 94 96 O2 Delivery Nasal Cannula Nasal Cannula O2 Flow Rate 2.0 2.0 Intake and Output 02/05/17 02/05/17 02/06/17 15:00 23:00 07:00 Intake Total 100 ml 180 ml Output Total 1575 ml 1300 ml Balance 100 ml -1575 ml -1120 ml DHRUV LACEY MD Feb 06, 2017 12:43
[2017-02-06 15:28] LABS: TOTAL SERUM CREATININE 2.94 mg/dL (0.57-1.00); TOTAL URINE CREATININE 32.2 mg/dL (Not Estab.)
[2017-02-06] MEDS: IRON SUCROSE COMPLEX 200 MG in IV NORMAL SALINE 100ML 100 ML IV SCH (16:30)
[2017-02-06] MEDS: FLUCONAZOLE 100 MG TABLET. PO SCH (16:31)
[2017-02-06] MEDS: PANTOPRAZOLE 40 MG TABLET.DR. PO SCH (16:31)
[2017-02-06] MEDS: CHOLECALCIFEROL (VITAMIN D3) 5,000 UNIT CAPSULE PO SCH (16:31)
[2017-02-06] MEDS: FUROSEMIDE INJ 100 MG in IV NORMAL SALINE 100ML 100 ML IV PRN (18:52)
[2017-02-06] MEDS: INSULIN DETEMIR 300 UNITS/3 ML INSULN.PEN. SQ SCH (20:58)
[2017-02-07] MEDS: oxyCODONE IR 5 MG TABLET PO PRN ×3 (01:40→14:19)
[2017-02-07 03:45] VITALS: BP 145/80
[2017-02-07 05:20] LABS: BASO % 0 % (0-3); EOS % 0 % (0-3); HEMATOCRIT 32.1 % (36.0-47.0); HEMOGLOBIN 10.2 g/dL (12.0-15.5); LYMPH # 1.9 x10^3/uL (1.0-4.8); LYMPH % 19 % (24-48); MEAN CORPUSCULAR HEMOGLOBIN 28 pg (25-35); MEAN CORPUSCULAR HGB CONC 32 g/dL (31-37); MEAN CORPUSCULAR VOLUME 88 fL (79-100); MONO % 10 % (0-9); NEUT % 71 % (31-73); PLATELET COUNT 152 x10^3/uL (140-400); RED BLOOD COUNT 3.65 x10^6/uL (3.50-5.40); RED CELL DISTRIBUTION WIDTH 15.7 % (11.5-14.5); WHITE BLOOD COUNT 10.1 x10^3/uL (4.0-11.0)
[2017-02-07 05:47] LABS: ALBUMIN 2.6 g/dL (3.4-5.0); CALCIUM 8.3 mg/dL (8.5-10.1); CREATININE 2.8 mg/dL (0.6-1.0); GFR 16.8; PHOSPHORUS 3.8 mg/dL (2.6-4.7); POTASSIUM 4.2 mmol/L (3.5-5.1)
[2017-02-07] MEDS: HEPARIN PF for SUB-Q USE 5,000 UNIT/0.5 ML VIAL. SQ SCH ×3 (05:48→22:05)
[2017-02-07 07:15] VITALS: BP 159/84
[2017-02-07] MEDS: INSULIN ASPART 300 UNITS/3 ML INSULN.PEN SQ SCH ×5 (07:30→17:00)
--- NOTE | 2017-02-07 08:52 | PDOC ---
TAMI ELIZABETH [employer] 02/07/17 0852: PROGRESS NOTES Subjective Subjective complains of right leg pain. no chest pain, mild dyspnea, no palpitations this am. Objective Objective Vital Signs Date Time Temp Pulse Resp B/P (MAP) Pulse Ox O2 Delivery O2 Flow Rate FiO2 02/07/17 07:15 99.7 85 20 159/84 (109) 92 Room Air 99.7 02/06/17 19:56 2.0 Intake and Output 02/07/17 07:00 Intake Total 610 ml Output Total 2600 ml Balance -1990 ml Intake Oral 550 ml IV Total 60 ml Output Urine Total 2600 ml # Bowel Movements 2 Physical Exam Abdomen: Normal bowel sounds, Soft, No tenderness Heart: Regular rate, Normal S1, Normal S2 Extremities: Normal pulses, Other (+2 -3 edema, + right femoral pulse, no hematoma, bleeding or bruit, +2 distal pulse. ) General: Alert, Oriented X3, Cooperative, No acute distress HEENT: EOMI, Mucous membr. moist/pink Lungs: Other (decreased bases bilaterally) Neuro: Normal speech, Reflexes 2+ Psych/Mental Status: Mental status NL, Mood NL Assessment Assessment 1. Acute on chronic diastolic CHF; LVEF 60-65%- PCWP by cath 21 - continue beta yan, ACEI and currently on Lasix drip. Negative balance last 24 hours. 2. PHTN - PAP 71/32, mean 49 mmHg 3. New onset AFIB; rate controlled - [id number] = 5, currently on Heparin subq , address OAC prior to discharge. 4. CKD4 -Cr remains stable, renal following 5. HTN; controlled 6. DM2/DLP per PCP Comment Review of Relevant I have reviewed the following items kai (where applicable) has been applied. Labs Laboratory Tests Test 02/05/17 12:20 02/05/17 17:24 02/05/17 18:30 02/05/17 20:13 Glucose (Fingerstick) 121 mg/dL (70-99) 123 mg/dL (70-99) 162 mg/dL (70-99) Urine Protein 65.0 mg/dL (Not Estab.) Urine Creatinine 24 Hour 741 mg/24 hr (800-1800) Creatinine Clearance 24 Hour 17 mL/min (88-128) Urine Protein 24 Hr Calculated 1495 mg/24 hr (30-150) Creatinine 2.94 mg/dL (0.57-1.00) Estimated GFR (Non- 16 (>59) EGFR 18 (>59) Test 02/05/17 22:13 02/06/17 05:00 02/06/17 07:47 02/06/17 10:14 Glucose (Fingerstick) 150 mg/dL (70-99) 121 mg/dL (70-99) 70 mg/dL (70-99) White Blood Count 9.8 x10^3/uL (4.0-11.0) Red Blood Count 3.68 x10^6/uL (3.50-5.40) Hemoglobin 10.7 g/dL (12.0-15.5) Hematocrit 31.7 % (36.0-47.0) Mean Corpuscular Volume 86 fL (79-100) Mean Corpuscular Hemoglobin 29 pg (25-35) Mean Corpuscular Hemoglobin Concent 34 g/dL (31-37) Red Cell Distribution Width 16.0 % (11.5-14.5) Platelet Count 154 x10^3/uL (140-400) Neutrophils (%) (Auto) 73 % (31-73) Lymphocytes (%) (Auto) 18 % (24-48) Monocytes (%) (Auto) 7 % (0-9) Eosinophils (%) (Auto) 2 % (0-3) Basophils (%) (Auto) 0 % (0-3) Neutrophils # (Auto) 7.2 x10^3uL (1.8-7.7) Lymphocytes # (Auto) 1.7 x10^3/uL (1.0-4.8) Monocytes # (Auto) 0.7 x10^3/uL (0.0-1.1) Eosinophils # (Auto) 0.2 x10^3/uL (0.0-0.7) Basophils # (Auto) 0.0 x10^3/uL (0.0-0.2) Sodium Level 143 mmol/L (136-145) Potassium Level 5.4 mmol/L (3.5-5.1) Chloride Level 109 mmol/L (98-107) Carbon Dioxide Level 23 mmol/L (21-32) Anion Gap 11 (6-14) Blood Urea Nitrogen 49 mg/dL (7-20) Creatinine 3.0 mg/dL (0.6-1.0) Estimated GFR (Cockcroft-Gault) 15.5 Glucose Level 146 mg/dL (70-99) Calcium Level 8.5 mg/dL (8.5-10.1) Phosphorus Level 4.2 mg/dL (2.6-4.7) Magnesium Level 1.9 mg/dL (1.8-2.4) Albumin 2.9 g/dL (3.4-5.0) Test 02/06/17 13:00 02/06/17 16:32 02/06/17 20:50 02/07/17 04:40 Potassium Level 4.9 mmol/L (3.5-5.1) 4.2 mmol/L (3.5-5.1) Glucose (Fingerstick) 70 mg/dL (70-99) 96 mg/dL (70-99) White Blood Count 10.1 x10^3/uL (4.0-11.0) Red Blood Count 3.65 x10^6/uL (3.50-5.40) Hemoglobin 10.2 g/dL (12.0-15.5) Hematocrit 32.1 % (36.0-47.0) Mean Corpuscular Volume 88 fL (79-100) Mean Corpuscular Hemoglobin 28 pg (25-35) Mean Corpuscular Hemoglobin Concent 32 g/dL (31-37) Red Cell Distribution Width 15.7 % (11.5-14.5) Platelet Count 152 x10^3/uL (140-400) Neutrophils (%) (Auto) 71 % (31-73) Lymphocytes (%) (Auto) 19 % (24-48) Monocytes (%) (Auto) 10 % (0-9) Eosinophils (%) (Auto) 0 % (0-3) Basophils (%) (Auto) 0 % (0-3) Neutrophils # (Auto) 7.1 x10^3uL (1.8-7.7) Lymphocytes # (Auto) 1.9 x10^3/uL (1.0-4.8) Monocytes # (Auto) 1.0 x10^3/uL (0.0-1.1) Eosinophils # (Auto) 0.0 x10^3/uL (0.0-0.7) Basophils # (Auto) 0.0 x10^3/uL (0.0-0.2) Sodium Level 144 mmol/L (136-145) Chloride Level 110 mmol/L (98-107) Carbon Dioxide Level 25 mmol/L (21-32) Anion Gap 9 (6-14) Blood Urea Nitrogen 48 mg/dL (7-20) Creatinine 2.8 mg/dL (0.6-1.0) Estimated GFR (Cockcroft-Gault) 16.8 Glucose Level 61 mg/dL (70-99) Calcium Level 8.3 mg/dL (8.5-10.1) Phosphorus Level 3.8 mg/dL (2.6-4.7) Magnesium Level 1.8 mg/dL (1.8-2.4) Albumin 2.6 g/dL (3.4-5.0) Test 02/07/17 07:38 02/07/17 08:15 Glucose (Fingerstick) 53 mg/dL (70-99) 61 mg/dL (70-99) Laboratory Tests Test 02/06/17 10:14 02/06/17 13:00 02/06/17 16:32 02/06/17 20:50 Glucose (Fingerstick) 70 mg/dL (70-99) 70 mg/dL (70-99) 96 mg/dL (70-99) Potassium Level 4.9 mmol/L (3.5-5.1) Test 02/07/17 04:40 02/07/17 07:38 02/07/17 08:15 White Blood Count 10.1 x10^3/uL (4.0-11.0) Red Blood Count 3.65 x10^6/uL (3.50-5.40) Hemoglobin 10.2 g/dL (12.0-15.5) Hematocrit 32.1 % (36.0-47.0) Mean Corpuscular Volume 88 fL (79-100) Mean Corpuscular Hemoglobin 28 pg (25-35) Mean Corpuscular Hemoglobin Concent 32 g/dL (31-37) Red Cell Distribution Width 15.7 % (11.5-14.5) Platelet Count 152 x10^3/uL (140-400) Neutrophils (%) (Auto) 71 % (31-73) Lymphocytes (%) (Auto) 19 % (24-48) Monocytes (%) (Auto) 10 % (0-9) Eosinophils (%) (Auto) 0 % (0-3) Basophils (%) (Auto) 0 % (0-3) Neutrophils # (Auto) 7.1 x10^3uL (1.8-7.7) Lymphocytes # (Auto) 1.9 x10^3/uL (1.0-4.8) Monocytes # (Auto) 1.0 x10^3/uL (0.0-1.1) Eosinophils # (Auto) 0.0 x10^3/uL (0.0-0.7) Basophils # (Auto) 0.0 x10^3/uL (0.0-0.2) Sodium Level 144 mmol/L (136-145) Potassium Level 4.2 mmol/L (3.5-5.1) Chloride Level 110 mmol/L (98-107) Carbon Dioxide Level 25 mmol/L (21-32) Anion Gap 9 (6-14) Blood Urea Nitrogen 48 mg/dL (7-20) Creatinine 2.8 mg/dL (0.6-1.0) Estimated GFR (Cockcroft-Gault) 16.8 Glucose Level 61 mg/dL (70-99) Calcium Level 8.3 mg/dL (8.5-10.1) Phosphorus Level 3.8 mg/dL (2.6-4.7) Magnesium Level 1.8 mg/dL (1.8-2.4) Albumin 2.6 g/dL (3.4-5.0) Glucose (Fingerstick) 53 mg/dL (70-99) 61 mg/dL (70-99) Medications Current Medications Zolpidem Tartrate (Ambien) 5 mg PRN QHS PRN PO INSOMNIA, MAY REPEAT IN 1HR; Start 01/29/17 at 18:45 Oxycodone HCl (Roxicodone) 5 mg PRN Q3HRS PRN PO BREAKTHROUGH PAIN Last administered on 02/07/17t 01:40; Start 01/29/17 at 18:45 Acetaminophen (Tylenol) 650 mg PRN Q6HRS PRN PO Headaches, Temp > 101.5F; Start 01/29/17 at 18:45 Ibuprofen (Motrin) 400 mg PRN Q6HRS PRN PO MILD PAIN; Start 01/29/17 at 18:45; Stop 02/05/17 at 09:24; Status DC Docusate Sodium (Colace) 100 mg BID PO Last administered on 02/01/17 08:42; Start 01/29/17 at 21:00; Stop 02/02/17 at 11:08; Status DC Magnesium Hydroxide (Milk Of Magnesia) 2,400 mg PRN Q12HR PRN PO CONSTIPATION; Start 01/29/17 at 18:45 Lactulose 20 gm PRN Q12HR PRN PO CONSTIPATION; Start 01/29/17 at 18:45 Bisacodyl (Dulcolax Supp) 10 mg PRN DAILY PRN NE CONSTIPATION; Start 01/29/17 at 18:45; Stop 02/02/17 at 11:08; Status DC Enoxaparin Sodium (Lovenox 40mg Syringe) 40 mg Q12HR SQ Last administered on 21:09; Start 01/29/17 at 22:00; Stop 01/31/17 at 07:12; Status DC Alprazolam (Xanax) 0.25 mg QHS PRN PO ANXIETY / AGITATION Last administered on 02/06/17 20:50; Start 01/29/17 at 18:45 Carvedilol (Coreg) 12.5 mg BIDWMEALS PO Last administered on 01/29/17 21:51; Start 01/29/17 at 19:00; Stop 01/30/17 at 11:28; Status DC Cyclobenzaprine HCl (Flexeril) 10 mg BID PO Last administered on 02/06/17 20:50 ; Start 01/29/17 at 21:00 Fluconazole (Diflucan) 100 mg DAILY PO Last administered on 02/06/17 16:31; Start 01/30/17 at 09:00 Furosemide (Lasix) 40 mg BID92 PO ; Start 01/30/17 at 09:00; Stop 01/30/17 at 09 :00; Status DC Hydralazine HCl (Apresoline) 25 mg BID PO Last administered on 02/06/17 20:51; Start 01/29/17 at 21:00 Acetaminophen/ Hydrocodone Bitart (Lortab 5/325) 1 tab PRN Q6HRS PRN PO MILD PAIN Last administered on 01/29/17 22:31; Start 01/29/17 at 18:45 Lisinopril (Prinivil) 40 mg DAILY PO Last administered on 02/06/17 08:18; Start 01/30/17 at 09:00 Oxycodone/ Acetaminophen (Percocet 10/325) 1 tab PRN Q6HRS PRN PO MODERATE- SEVERE PAIN Last administered on 02/04/17 19:16; Start 01/29/17 at 18:45 Tramadol HCl (Ultram) 100 mg BID PO Last administered on 01/29/17 21:50; Start 01/29/17 at 21:00; Stop 01/30/17 at 11:51; Status DC Vitamin D (Vitamin D3) 5,000 unit DAILY PO Last administered on 02/06/17 16:31 ; Start 01/30/17 at 09:00 Gabapentin (Neurontin) 300 mg PRN DAILY PRN PO NERVE PAIN Last administered on 02/04/17 19:16; Start 01/29/17 at 21:00 Glimepiride (Amaryl) 4 mg BIDWMEALS PO Last administered on 02/06/17 18:51; Start 01/30/17 at 09:00 Insulin Detemir (Levemir) 40 units QHS SQ Last administered on 01/29/17 22:01 ; Start 01/29/17 at 21:00; Stop 01/30/17 at 11:51; Status DC Insulin Aspart (NovoLOG) 50 units TIDAC SQ Last administered on 01/29/17 22:00 ; Start 01/29/17 at 19:00; Stop 01/30/17 at 11:51; Status DC Non-Formulary Medication 1.2 mg DAILY SQ ; Start 01/30/17 at 09:00; Stop at 09:00; Status DC Pantoprazole Sodium (Protonix) 40 mg DAILYAC PO Last administered on 02/06/17 16:31; Start 01/30/17 at 07:30 Potassium Chloride (Klor-Con) 10 meq DAILYWBKFT PO Last administered on 08:59; Start 01/30/17 at 08:00; Stop 02/05/17 at 09:21; Status DC Insulin Aspart (NovoLOG) 0-9 UNITS TIDWMEALS SQ Last administered on 02/02/17 17:29; Start 01/30/17 at 08:00 Dextrose (Dextrose 50%-Water Syringe) 12.5 gm PRN Q15MIN PRN IV SEE COMMENTS; Start 01/29/17 at 18:45 Furosemide (Lasix) 40 mg 1X ONCE IVP Last administered on 01/29/17 21:52; Start 01/29/17 at 21:00; Stop 01/29/17 at 21:01; Status DC Furosemide (Lasix) 40 mg BID92 IVP Last administered on 01/30/17 11:01; Start 01/30/17 at 09:00; Stop 01/30/17 at 11:28; Status DC Lidocaine HCl (Xylocaine-Mpf 1% Vial) 2 ml STK-MED ONCE .ROUTE ; Start 01/29/17 at 20:37; Stop 01/29/17 at 20:38; Status DC Dextrose 250 ml @ 1,000 mls/hr 1X ONCE IV ; Start 01/30/17 at 07:45; Stop at 07:59; Status DC Glucose (Insta-Glucose) 15 gm PRN Q15MIN PRN PO LOW BLOOD SUGAR Last administered on 01/30/17 07:55; Start 01/30/17 at 08:00 Glucose (Insta-Glucose) 15 gm STK-MED ONCE .ROUTE ; Start 01/30/17 at 07:52; Stop 01/30/17 at 07:53; Status DC Lidocaine HCl (Xylocaine-Mpf 1% Vial) 2 ml STK-MED ONCE .ROUTE ; Start 01/29/17 at 21:00; Stop 01/30/17 at 09:01; Status DC Furosemide (Lasix) 40 mg DAILY IVP Last administered on 02/03/17 08:39; Start 01/31/17 at 09:00; Stop 02/03/17 at 15:50; Status DC Aspirin (Ecotrin) 81 mg DAILYWBKFT PO Last administered on 02/06/17 08:18; Start 01/30/17 at 12:30 Insulin Detemir (Levemir) 25 units QHS SQ Last administered on 02/02/17 20:54 ; Start 01/30/17 at 21:00; Stop 02/03/17 at 11:09; Status DC Gabapentin (Neurontin) 400 mg BID PO Last administered on 02/06/17 20:50; Start 01/31/17 at 09:00 Gabapentin (Neurontin) 100 mg 1X ONCE PO Last administered on 01/31/17 01:56 ; Start 01/31/17 at 02:00; Stop 01/31/17 at 02:01; Status DC Enoxaparin Sodium (Lovenox 40mg Syringe) 40 mg QHS SQ Last administered on 02/03 20:32; Start 01/31/17 at 21:00; Stop 02/04/17 at 09:32; Status DC Methylprednisolone Acetate (DEPO-Medrol 40MG VIAL) 40 mg 1X ONCE IM Last administered on 02/01/17 13:30; Start 02/01/17 at 13:30; Stop 02/01/17 at 13:31 ; Status DC Lidocaine/Sodium Bicarbonate (Buffered Lidocaine 1%) 20 ml 1X ONCE IJ Last administered on 02/01/17 13:30; Start 02/01/17 at 13:30; Stop 02/01/17 at 13:31 ; Status DC Labetalol HCl (Normodyne) 20 mg PRN Q2HR PRN IVP HYPERTENSION, SEE COMMENTS Last administered on 02/01/17 23:59; Start 02/01/17 at 23:30; Stop 02/03/17 at 15:47; Status DC Insulin Aspart (NovoLOG) 10 units TIDAC SQ Last administered on 02/06/17 07:30 ; Start 02/02/17 at 11:30 Insulin Aspart (NovoLOG VIAL) 15 unit 1X ONCE SQ ; Start 02/02/17 at 08:45; Stop 02/02/17 at 08:46; Status Cancel Insulin Aspart (NovoLOG) 15 units 1X ONCE SQ Last administered on 02/02/17 08 :42; Start 02/02/17 at 08:45; Stop 02/02/17 at 08:46; Status DC Loperamide HCl (Imodium) 2 mg PRN Q15MIN PRN PO DIARRHEA Last administered on 09:43; Start 02/02/17 at 11:15; Stop 02/03/17 at 12:31; Status DC Loperamide HCl (Imodium) 2 mg PRN Q15MIN PRN PO DIARRHEA Last administered on 01:35; Start 02/02/17 at 12:45; Stop 02/04/17 at 14:00; Status DC Insulin Detemir (Levemir) 35 units QHS SQ Last administered on 02/06/17 20:58; Start 02/03/17 at 21:00 Metoprolol Tartrate (Lopressor) 12.5 mg BID PO Last administered on 02/06/17 20 :50; Start 02/03/17 at 21:00 Furosemide (Lasix) 60 mg DAILY PO Last administered on 02/04/17 08:57; Start 02/04/17 at 09:00; Stop 02/04/17 at 14:34; Status DC Heparin Sodium (Porcine) (Heparin Sq) 5,000 unit Q8HRS SQ Last administered on 02/07/17 05:48; Start 02/04/17 at 14:00 Loperamide HCl (Imodium) 2 mg TID PO Last administered on 02/06/17 20:51; Start 02/04/17 at 14:00 Magnesium Sulfate/ Dextrose 50 ml @ 25 mls/hr PRN DAILY PRN IV for Mag < 1.7 on am labs; Start 02/04/17 at 14:30; Stop 02/05/17 at 10:05; Status DC Furosemide 100 mg/ Sodium Chloride 100 ml @ 0 mls/hr CONT PRN IV SEE I/O RECORD Last administered on 02/04/17 15:59; Start 02/04/17 at 14:30; Stop at 09:27; Status DC Acetylcysteine (Mucomyst 20% Oral Solution) 1,200 mg BID PO Last administered on 02/06/17 20:49; Start 02/05/17 at 09:00; Stop 02/07/17 at 08:59 Sodium Polystyrene Sulfonate (Kayexalate) 30 gm 1X ONCE PO Last administered on 02/06/17 09:49; Start 02/06/17 at 09:30; Stop 02/06/17 at 09:31; Status DC Dextrose 10 ml 1X ONCE IV Last administered on 02/06/17 09:56; Start 02/06/17 at 09:30; Stop 02/06/17 at 09:31; Status DC Insulin Human Regular (NovoLIN R VIAL) 10 unit 1X ONCE IV Last administered on 02/06/17 09:59; Start 02/06/17 at 09:30; Stop 02/06/17 at 09:31; Status DC Heparin Sodium/ Sodium Chloride 500 ml @ As Directed STK-MED ONCE .ROUTE ; Start 02/06/17 at 10:10; Stop 02/06/17 at 10:11; Status DC Lidocaine HCl 20 ml STK-MED ONCE .ROUTE ; Start 02/06/17 at 10:10; Stop 02/06/17 at 10:11; Status DC Fentanyl Citrate (Fentanyl 2ml Vial) 100 mcg STK-MED ONCE .ROUTE ; Start at 10:39; Stop 02/06/17 at 10:40; Status DC Midazolam HCl (Versed) 2 mg STK-MED ONCE .ROUTE ; Start 02/06/17 at 10:39; Stop 02/06/17 at 10:40; Status DC Heparin Sodium/ Sodium Chloride 1,000 unit 1X ONCE IART Last administered on 11:10; Start 02/06/17 at 11:15; Stop 02/06/17 at 11:16; Status DC Midazolam HCl (Versed) 1 mg 1X ONCE IV Last administered on 02/06/17 11:11; Start 02/06/17 at 11:15; Stop 02/06/17 at 11:16; Status DC Fentanyl Citrate (Fentanyl 2ml Vial) 50 mcg 1X ONCE IV Last administered on 11:11; Start 02/06/17 at 11:15; Stop 02/06/17 at 11:16; Status DC Lidocaine HCl 20 ml 1X ONCE IJ Last administered on 02/06/17 11:10; Start 02/06 at 11:15; Stop 02/06/17 at 11:16; Status DC Sodium Chloride (Normal Saline Flush) 3 ml QSHIFT PRN IV AFTER MEDS AND BLOOD DRAWS; Start 02/06/17 at 11:15 Nitroglycerin (Nitrostat) 0.4 mg PRN Q5MIN PRN SL CHEST PAIN; Start 02/06/17 at 11:15 Iron Sucrose 200 mg/Sodium Chloride 110 ml @ 55 mls/hr 3X/WEEK IV Last administered on 02/06/17 16:30; Start 02/06/17 at 13:00; Stop 02/16/17 at 10:59 Furosemide 100 mg/ Sodium Chloride 100 ml @ 0 mls/hr CONT PRN IV SEE I/O RECORD Last administered on 02/06/17 18:52; Start 02/06/17 at 13:30 Active Scripts Active Xanax (Alprazolam) 0.25 Mg Tablet 0.25 Mg PO QHS PRN Oxycodone-Acetaminophen 10-325 (Oxycodone Hcl/Acetaminophen) 1 Each Tablet 1 Tab PO PRN Q6HRS PRN Hydralazine Hcl 25 Mg Tablet 25 Mg PO BID Carvedilol 12.5 Mg Tablet 12.5 Mg PO BIDWMEALS Fluconazole 100 Mg Tablet 1 Tab PO DAILY Lasix (Furosemide) 40 Mg Tablet 40 Mg PO BID Reported Lisinopril 40 Mg Tablet 1 Tab PO DAILY Humalog (Insulin Lispro) 100 Unit/1 Ml Vial 50 Unit SQ TID Lortab 5-325 mg Tablet (Hydrocodone/Acetaminophen) 1 Each Tablet 1 Tab PO PRN Q6HRS PRN Levemir (Insulin Detemir) 100 Unit/1 Ml Vial 40 Unit SQ HS Victoza 3-Devon (Liraglutide) 0.6 Mg/0.1 Ml Pen.injctr 1.2 Mg SQ DAILY Gabapentin 300 Mg Capsule 1 Cap PO DAILY PRN Vitamin D3 (Cholecalciferol (Vitamin D3)) 5,000 Unit Tablet 1 Tab PO DAILY Glimepiride 4 Mg Tablet 1 Tab PO BID Tramadol Hcl 50 Mg Tablet 2 Tab PO BID Cyclobenzaprine Hcl 10 Mg Tablet 1 Tab PO BID Klor-Con 10 (Potassium Chloride) 10 Meq Tablet.er 1 Tab PO DAILY Omeprazole 20 Mg Capsule. 1 Cap PO DAILY Vitals/I & O Vital Sign - Last 24 Hours 02/06/17 02/06/17 02/06/17 02/06/17 10:12 11:11 11:17 11:43 Temp 98.6 98.6 Pulse 84 89 87 Resp 19 17 21 B/P (MAP) 168/79 (108) 159/74 (102) Pulse Ox 96 94 96 O2 Delivery Room Air Nasal Cannula Nasal Cannula O2 Flow Rate 2.0 2.0 6/10/2402/06/17 02/06/17 02/06/17 11:58 12:13 12:28 12:58 Pulse 92 88 88 88 B/P (MAP) 146/71 (96) 146/71 (96) 140/67 (91) 153/82 (105) 02/06/17 02/06/17 02/06/17 02/06/17 13:58 14:30 19:20 19:56 Temp 98.8 98.8 Pulse 88 83 92 Resp 18 26 B/P (MAP) 137/64 (88) 137/64 (88) 171/116 (134) Pulse Ox 97 97 O2 Delivery Room Air Room Air Room Air O2 Flow Rate 2.0 02/06/17 02/06/17 02/06/17 02/07/17 20:50 20:51 23:25 01:40 Temp 99.3 99.3 Pulse 92 92 94 Resp 26 20 B/P (MAP) 171/116 171/116 164/86 (112) Pulse Ox 96 O2 Delivery Room Air Room Air 02/07/17 02/07/17 02/07/17 02:45 03:45 07:15 Temp 99.3 99.7 99.3 99.7 Pulse 90 85 Resp 20 20 20 B/P (MAP) 145/80 (101) 159/84 (109) Pulse Ox 95 92 O2 Delivery Room Air Room Air Room Air Intake and Output 02/06/17 02/06/17 02/07/17 15:00 23:00 07:00 Intake Total 450 ml 160 ml Output Total 1200 ml 1400 ml Balance -750 ml -1240 ml LEON GARDNER MD 02/07/17 1118: PROGRESS NOTES Plan Plan of Care Pt. seen and examined. 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 No acute events overnight. Negative 2L overnight on Lasix gtt. Cr improving from 3.3 to 2.8. Persistent LE edema. Lymphedema consult pending. Will follow along. No anticoagulation due to bleeding issues. She is also reluctant to be on blood thinners. Understands risks/benefits. TAMI ELIZABETH APRN Feb 07, 2017 08:52 LEON GARDNER MD Feb 07, 2017 11:18
[2017-02-07] MEDS: GABAPENTIN 400 MG CAPSULE. PO SCH ×2 (09:40→20:31)
[2017-02-07] MEDS: ASPIRIN ENTERIC COATED 81 MG TABLET.DR. PO SCH (09:41)
[2017-02-07] MEDS: PANTOPRAZOLE 40 MG TABLET.DR. PO SCH (09:41)
[2017-02-07] MEDS: FLUCONAZOLE 100 MG TABLET. PO SCH (09:43)
[2017-02-07] MEDS: LOPERAMIDE 2 MG CAPSULE PO SCH ×5 (09:43→20:32)
[2017-02-07] MEDS: METOPROLOL TART IMMED RELEASE 25 MG TABLET. PO SCH ×2 (09:44→20:30)
[2017-02-07] MEDS: CYCLOBENZAPRINE 10 MG TABLET. PO SCH ×2 (09:44→20:31)
[2017-02-07] MEDS: LISINOPRIL 40 MG TABLET. PO SCH (09:44)
[2017-02-07] MEDS: GLIMEPIRIDE 2 MG TABLET. PO SCH ×2 (09:44→17:00)
[2017-02-07] MEDS: CHOLECALCIFEROL (VITAMIN D3) 5,000 UNIT CAPSULE PO SCH (09:44)
[2017-02-07] MEDS: hydrALAZINE 25 MG TABLET PO SCH ×2 (10:11→20:31)
[2017-02-07 11:00] VITALS: BP 167/88
--- NOTE | 2017-02-07 13:09 | PDOC ---
PROGRESS NOTES Chief Complaint Chief Complaint 1. Acute-on chronic congestive heart failure, likely systolic versus diastolic or combined. 2. s/p RHC - 02/06/17- normal 2. Old lymphedema. 3. Obesity. 4. Diabetes type 2. Unknown Hgb A1c. 6. Chronic kidney disease. 7. Anemia of chronic disease. 8. Limited mobility, wheelchair-bound. 9. Chest heaviness. 10. Diarrhea x 2 weeks, hx subtotal colectomy (family hx Familial polyposis?) History of Present Illness History of Present Illness LOts of issues today 1. R knee hurts, limited ROM, cant flex, no redness, mild swelling, warm to touch. CLaims hx gout she gets on her toes 2. Legs look more swollen today, has been off lasix bec of creatinine 3. Hypoglycemic 50s this AM, (requiring low doses insulin here than her home dose) PLAN: Lasix 20 IV x 1 now Keep dhaliwal Recheck BMP hollie since diuresed today Check knee xray - r/o OA vs something else Check uric acid, esr Check venous doppler, limited mobolity, leg swelling tender to calf palpation, obese and prolonged hospital stay DVT prophy with heparin SQ dec loevemior to 20 from 35 qhs Dc all together schedule novolog mealtimes Keep glyburide PO with meals Dw pt and Vitals Vitals Vital Signs Date Time Temp Pulse Resp B/P (MAP) Pulse Ox O2 Delivery O2 Flow Rate FiO2 02/07/17 11:00 99.0 95 20 167/88 (114) 96 Room Air 99.0 02/07/17 09:47 2.0 Physical Exam General: Alert, Oriented X3, Cooperative, No acute distress Heart: Regular rate, Normal S1, Normal S2 Lungs: Clear, Other (no wheezing) Abdomen: Normal bowel sounds, Soft, No tenderness Extremities: Normal pulses, Other (+2 -3 edema, + right femoral pulse, no hematoma, bleeding or bruit, +2 distal pulse. ) Skin: No significant lesion Labs LABS Laboratory Tests Test 02/06/17 16:32 02/06/17 20:50 02/07/17 04:40 02/07/17 07:38 Glucose (Fingerstick) 70 mg/dL (70-99) 96 mg/dL (70-99) 53 mg/dL (70-99) White Blood Count 10.1 x10^3/uL (4.0-11.0) Red Blood Count 3.65 x10^6/uL (3.50-5.40) Hemoglobin 10.2 g/dL (12.0-15.5) Hematocrit 32.1 % (36.0-47.0) Mean Corpuscular Volume 88 fL (79-100) Mean Corpuscular Hemoglobin 28 pg (25-35) Mean Corpuscular Hemoglobin Concent 32 g/dL (31-37) Red Cell Distribution Width 15.7 % (11.5-14.5) Platelet Count 152 x10^3/uL (140-400) Neutrophils (%) (Auto) 71 % (31-73) Lymphocytes (%) (Auto) 19 % (24-48) Monocytes (%) (Auto) 10 % (0-9) Eosinophils (%) (Auto) 0 % (0-3) Basophils (%) (Auto) 0 % (0-3) Neutrophils # (Auto) 7.1 x10^3uL (1.8-7.7) Lymphocytes # (Auto) 1.9 x10^3/uL (1.0-4.8) Monocytes # (Auto) 1.0 x10^3/uL (0.0-1.1) Eosinophils # (Auto) 0.0 x10^3/uL (0.0-0.7) Basophils # (Auto) 0.0 x10^3/uL (0.0-0.2) Sodium Level 144 mmol/L (136-145) Potassium Level 4.2 mmol/L (3.5-5.1) Chloride Level 110 mmol/L (98-107) Carbon Dioxide Level 25 mmol/L (21-32) Anion Gap 9 (6-14) Blood Urea Nitrogen 48 mg/dL (7-20) Creatinine 2.8 mg/dL (0.6-1.0) Estimated GFR (Cockcroft-Gault) 16.8 Glucose Level 61 mg/dL (70-99) Calcium Level 8.3 mg/dL (8.5-10.1) Phosphorus Level 3.8 mg/dL (2.6-4.7) Magnesium Level 1.8 mg/dL (1.8-2.4) Albumin 2.6 g/dL (3.4-5.0) Test 02/07/17 08:15 02/07/17 11:36 Glucose (Fingerstick) 61 mg/dL (70-99) 73 mg/dL (70-99) Review of Systems Review of Systems R knee pain, R leg pain, no inc on soa or cp, or abd pain Comment Review of Relevant I have reviewed the following items kai (where applicable) has been applied. Labs Laboratory Tests Test 02/05/17 17:24 02/05/17 18:30 02/05/17 20:13 02/05/17 22:13 Glucose (Fingerstick) 123 mg/dL (70-99) 162 mg/dL (70-99) 150 mg/dL (70-99) Urine Protein 65.0 mg/dL (Not Estab.) Urine Creatinine 24 Hour 741 mg/24 hr (800-1800) Creatinine Clearance 24 Hour 17 mL/min (88-128) Urine Protein 24 Hr Calculated 1495 mg/24 hr (30-150) Creatinine 2.94 mg/dL (0.57-1.00) Estimated GFR (Non- 16 (>59) EGFR 18 (>59) Test 02/06/17 05:00 02/06/17 07:47 02/06/17 10:14 02/06/17 13:00 White Blood Count 9.8 x10^3/uL (4.0-11.0) Red Blood Count 3.68 x10^6/uL (3.50-5.40) Hemoglobin 10.7 g/dL (12.0-15.5) Hematocrit 31.7 % (36.0-47.0) Mean Corpuscular Volume 86 fL (79-100) Mean Corpuscular Hemoglobin 29 pg (25-35) Mean Corpuscular Hemoglobin Concent 34 g/dL (31-37) Red Cell Distribution Width 16.0 % (11.5-14.5) Platelet Count 154 x10^3/uL (140-400) Neutrophils (%) (Auto) 73 % (31-73) Lymphocytes (%) (Auto) 18 % (24-48) Monocytes (%) (Auto) 7 % (0-9) Eosinophils (%) (Auto) 2 % (0-3) Basophils (%) (Auto) 0 % (0-3) Neutrophils # (Auto) 7.2 x10^3uL (1.8-7.7) Lymphocytes # (Auto) 1.7 x10^3/uL (1.0-4.8) Monocytes # (Auto) 0.7 x10^3/uL (0.0-1.1) Eosinophils # (Auto) 0.2 x10^3/uL (0.0-0.7) Basophils # (Auto) 0.0 x10^3/uL (0.0-0.2) Sodium Level 143 mmol/L (136-145) Potassium Level 5.4 mmol/L (3.5-5.1) 4.9 mmol/L (3.5-5.1) Chloride Level 109 mmol/L (98-107) Carbon Dioxide Level 23 mmol/L (21-32) Anion Gap 11 (6-14) Blood Urea Nitrogen 49 mg/dL (7-20) Creatinine 3.0 mg/dL (0.6-1.0) Estimated GFR (Cockcroft-Gault) 15.5 Glucose Level 146 mg/dL (70-99) Calcium Level 8.5 mg/dL (8.5-10.1) Phosphorus Level 4.2 mg/dL (2.6-4.7) Magnesium Level 1.9 mg/dL (1.8-2.4) Albumin 2.9 g/dL (3.4-5.0) Glucose (Fingerstick) 121 mg/dL (70-99) 70 mg/dL (70-99) Test 02/06/17 16:32 02/06/17 20:50 02/07/17 04:40 02/07/17 07:38 Glucose (Fingerstick) 70 mg/dL (70-99) 96 mg/dL (70-99) 53 mg/dL (70-99) White Blood Count 10.1 x10^3/uL (4.0-11.0) Red Blood Count 3.65 x10^6/uL (3.50-5.40) Hemoglobin 10.2 g/dL (12.0-15.5) Hematocrit 32.1 % (36.0-47.0) Mean Corpuscular Volume 88 fL (79-100) Mean Corpuscular Hemoglobin 28 pg (25-35) Mean Corpuscular Hemoglobin Concent 32 g/dL (31-37) Red Cell Distribution Width 15.7 % (11.5-14.5) Platelet Count 152 x10^3/uL (140-400) Neutrophils (%) (Auto) 71 % (31-73) Lymphocytes (%) (Auto) 19 % (24-48) Monocytes (%) (Auto) 10 % (0-9) Eosinophils (%) (Auto) 0 % (0-3) Basophils (%) (Auto) 0 % (0-3) Neutrophils # (Auto) 7.1 x10^3uL (1.8-7.7) Lymphocytes # (Auto) 1.9 x10^3/uL (1.0-4.8) Monocytes # (Auto) 1.0 x10^3/uL (0.0-1.1) Eosinophils # (Auto) 0.0 x10^3/uL (0.0-0.7) Basophils # (Auto) 0.0 x10^3/uL (0.0-0.2) Sodium Level 144 mmol/L (136-145) Potassium Level 4.2 mmol/L (3.5-5.1) Chloride Level 110 mmol/L (98-107) Carbon Dioxide Level 25 mmol/L (21-32) Anion Gap 9 (6-14) Blood Urea Nitrogen 48 mg/dL (7-20) Creatinine 2.8 mg/dL (0.6-1.0) Estimated GFR (Cockcroft-Gault) 16.8 Glucose Level 61 mg/dL (70-99) Calcium Level 8.3 mg/dL (8.5-10.1) Phosphorus Level 3.8 mg/dL (2.6-4.7) Magnesium Level 1.8 mg/dL (1.8-2.4) Albumin 2.6 g/dL (3.4-5.0) Test 02/07/17 08:15 02/07/17 11:36 Glucose (Fingerstick) 61 mg/dL (70-99) 73 mg/dL (70-99) Laboratory Tests Test 02/06/17 16:32 02/06/17 20:50 02/07/17 04:40 02/07/17 07:38 Glucose (Fingerstick) 70 mg/dL (70-99) 96 mg/dL (70-99) 53 mg/dL (70-99) White Blood Count 10.1 x10^3/uL (4.0-11.0) Red Blood Count 3.65 x10^6/uL (3.50-5.40) Hemoglobin 10.2 g/dL (12.0-15.5) Hematocrit 32.1 % (36.0-47.0) Mean Corpuscular Volume 88 fL (79-100) Mean Corpuscular Hemoglobin 28 pg (25-35) Mean Corpuscular Hemoglobin Concent 32 g/dL (31-37) Red Cell Distribution Width 15.7 % (11.5-14.5) Platelet Count 152 x10^3/uL (140-400) Neutrophils (%) (Auto) 71 % (31-73) Lymphocytes (%) (Auto) 19 % (24-48) Monocytes (%) (Auto) 10 % (0-9) Eosinophils (%) (Auto) 0 % (0-3) Basophils (%) (Auto) 0 % (0-3) Neutrophils # (Auto) 7.1 x10^3uL (1.8-7.7) Lymphocytes # (Auto) 1.9 x10^3/uL (1.0-4.8) Monocytes # (Auto) 1.0 x10^3/uL (0.0-1.1) Eosinophils # (Auto) 0.0 x10^3/uL (0.0-0.7) Basophils # (Auto) 0.0 x10^3/uL (0.0-0.2) Sodium Level 144 mmol/L (136-145) Potassium Level 4.2 mmol/L (3.5-5.1) Chloride Level 110 mmol/L (98-107) Carbon Dioxide Level 25 mmol/L (21-32) Anion Gap 9 (6-14) Blood Urea Nitrogen 48 mg/dL (7-20) Creatinine 2.8 mg/dL (0.6-1.0) Estimated GFR (Cockcroft-Gault) 16.8 Glucose Level 61 mg/dL (70-99) Calcium Level 8.3 mg/dL (8.5-10.1) Phosphorus Level 3.8 mg/dL (2.6-4.7) Magnesium Level 1.8 mg/dL (1.8-2.4) Albumin 2.6 g/dL (3.4-5.0) Test 02/07/17 08:15 02/07/17 11:36 Glucose (Fingerstick) 61 mg/dL (70-99) 73 mg/dL (70-99) Medications Current Medications Zolpidem Tartrate (Ambien) 5 mg PRN QHS PRN PO INSOMNIA, MAY REPEAT IN 1HR; Start 01/29/17 at 18:45 Oxycodone HCl (Roxicodone) 5 mg PRN Q3HRS PRN PO BREAKTHROUGH PAIN Last administered on 02/07/17 09:47; Start 01/29/17 at 18:45 Acetaminophen (Tylenol) 650 mg PRN Q6HRS PRN PO Headaches, Temp > 101.5F; Start 01/29/17 at 18:45 Ibuprofen (Motrin) 400 mg PRN Q6HRS PRN PO MILD PAIN; Start 01/29/17 at 18:45; Stop 02/05/17 at 09:24; Status DC Docusate Sodium (Colace) 100 mg BID PO Last administered on 02/01/17 08:42; Start 01/29/17 at 21:00; Stop 02/02/17 at 11:08; Status DC Magnesium Hydroxide (Milk Of Magnesia) 2,400 mg PRN Q12HR PRN PO CONSTIPATION; Start 01/29/17 at 18:45 Lactulose 20 gm PRN Q12HR PRN PO CONSTIPATION; Start 01/29/17 at 18:45 Bisacodyl (Dulcolax Supp) 10 mg PRN DAILY PRN IN CONSTIPATION; Start 01/29/17 at 18:45; Stop 02/02/17 at 11:08; Status DC Enoxaparin Sodium (Lovenox 40mg Syringe) 40 mg Q12HR SQ Last administered on 21:09; Start 01/29/17 at 22:00; Stop 01/31/17 at 07:12; Status DC Alprazolam (Xanax) 0.25 mg QHS PRN PO ANXIETY / AGITATION Last administered on 02/06/17 20:50; Start 01/29/17 at 18:45 Carvedilol (Coreg) 12.5 mg BIDWMEALS PO Last administered on 01/29/17 21:51; Start 01/29/17 at 19:00; Stop 01/30/17 at 11:28; Status DC Cyclobenzaprine HCl (Flexeril) 10 mg BID PO Last administered on 02/07/17 09:44 ; Start 01/29/17 at 21:00 Fluconazole (Diflucan) 100 mg DAILY PO Last administered on 02/07/17 09:43; Start 01/30/17 at 09:00 Furosemide (Lasix) 40 mg BID92 PO ; Start 01/30/17 at 09:00; Stop 01/30/17 at 09 :00; Status DC Hydralazine HCl (Apresoline) 25 mg BID PO Last administered on 02/07/17 10:11; Start 01/29/17 at 21:00 Acetaminophen/ Hydrocodone Bitart (Lortab 5/325) 1 tab PRN Q6HRS PRN PO MILD PAIN Last administered on 01/29/17 22:31; Start 01/29/17 at 18:45 Lisinopril (Prinivil) 40 mg DAILY PO Last administered on 02/07/17 09:44; Start 01/30/17 at 09:00 Oxycodone/ Acetaminophen (Percocet 10/325) 1 tab PRN Q6HRS PRN PO MODERATE- SEVERE PAIN Last administered on 02/04/17 19:16; Start 01/29/17 at 18:45 Tramadol HCl (Ultram) 100 mg BID PO Last administered on 01/29/17 21:50; Start 01/29/17 at 21:00; Stop 01/30/17 at 11:51; Status DC Vitamin D (Vitamin D3) 5,000 unit DAILY PO Last administered on 02/07/17 09:44 ; Start 01/30/17 at 09:00 Gabapentin (Neurontin) 300 mg PRN DAILY PRN PO NERVE PAIN Last administered on 02/04/17 19:16; Start 01/29/17 at 21:00 Glimepiride (Amaryl) 4 mg BIDWMEALS PO Last administered on 02/07/17 09:44; Start 01/30/17 at 09:00 Insulin Detemir (Levemir) 40 units QHS SQ Last administered on 01/29/17 22:01 ; Start 01/29/17 at 21:00; Stop 01/30/17 at 11:51; Status DC Insulin Aspart (NovoLOG) 50 units TIDAC SQ Last administered on 01/29/17 22:00 ; Start 01/29/17 at 19:00; Stop 01/30/17 at 11:51; Status DC Non-Formulary Medication 1.2 mg DAILY SQ ; Start 01/30/17 at 09:00; Stop at 09:00; Status DC Pantoprazole Sodium (Protonix) 40 mg DAILYAC PO Last administered on 02/07/17 09:41; Start 01/30/17 at 07:30 Potassium Chloride (Klor-Con) 10 meq DAILYWBKFT PO Last administered on 08:59; Start 01/30/17 at 08:00; Stop 02/05/17 at 09:21; Status DC Insulin Aspart (NovoLOG) 0-9 UNITS TIDWMEALS SQ Last administered on 02/02/17 17:29; Start 01/30/17 at 08:00 Dextrose (Dextrose 50%-Water Syringe) 12.5 gm PRN Q15MIN PRN IV SEE COMMENTS; Start 01/29/17 at 18:45 Furosemide (Lasix) 40 mg 1X ONCE IVP Last administered on 01/29/17 21:52; Start 01/29/17 at 21:00; Stop 01/29/17 at 21:01; Status DC Furosemide (Lasix) 40 mg BID92 IVP Last administered on 01/30/17 11:01; Start 01/30/17 at 09:00; Stop 01/30/17 at 11:28; Status DC Lidocaine HCl (Xylocaine-Mpf 1% Vial) 2 ml STK-MED ONCE .ROUTE ; Start 01/29/17 at 20:37; Stop 01/29/17 at 20:38; Status DC Dextrose 250 ml @ 1,000 mls/hr 1X ONCE IV ; Start 01/30/17 at 07:45; Stop at 07:59; Status DC Glucose (Insta-Glucose) 15 gm PRN Q15MIN PRN PO LOW BLOOD SUGAR Last administered on 01/30/17 07:55; Start 01/30/17 at 08:00 Glucose (Insta-Glucose) 15 gm STK-MED ONCE .ROUTE ; Start 01/30/17 at 07:52; Stop 01/30/17 at 07:53; Status DC Lidocaine HCl (Xylocaine-Mpf 1% Vial) 2 ml STK-MED ONCE .ROUTE ; Start 01/29/17 at 21:00; Stop 01/30/17 at 09:01; Status DC Furosemide (Lasix) 40 mg DAILY IVP Last administered on 02/03/17 08:39; Start 01/31/17 at 09:00; Stop 02/03/17 at 15:50; Status DC Aspirin (Ecotrin) 81 mg DAILYWBKFT PO Last administered on 02/07/17 09:41; Start 01/30/17 at 12:30 Insulin Detemir (Levemir) 25 units QHS SQ Last administered on 02/02/17 20:54 ; Start 01/30/17 at 21:00; Stop 02/03/17 at 11:09; Status DC Gabapentin (Neurontin) 400 mg BID PO Last administered on 02/07/17 09:40; Start 01/31/17 at 09:00 Gabapentin (Neurontin) 100 mg 1X ONCE PO Last administered on 01/31/17 01:56 ; Start 01/31/17 at 02:00; Stop 01/31/17 at 02:01; Status DC Enoxaparin Sodium (Lovenox 40mg Syringe) 40 mg QHS SQ Last administered on 02/03 20:32; Start 01/31/17 at 21:00; Stop 02/04/17 at 09:32; Status DC Methylprednisolone Acetate (DEPO-Medrol 40MG VIAL) 40 mg 1X ONCE IM Last administered on 02/01/17 13:30; Start 02/01/17 at 13:30; Stop 02/01/17 at 13:31 ; Status DC Lidocaine/Sodium Bicarbonate (Buffered Lidocaine 1%) 20 ml 1X ONCE IJ Last administered on 02/01/17 13:30; Start 02/01/17 at 13:30; Stop 02/01/17 at 13:31 ; Status DC Labetalol HCl (Normodyne) 20 mg PRN Q2HR PRN IVP HYPERTENSION, SEE COMMENTS Last administered on 02/01/17 23:59; Start 02/01/17 at 23:30; Stop 02/03/17 at 15:47; Status DC Insulin Aspart (NovoLOG) 10 units TIDAC SQ Last administered on 02/06/17 07:30 ; Start 02/02/17 at 11:30 Insulin Aspart (NovoLOG VIAL) 15 unit 1X ONCE SQ ; Start 02/02/17 at 08:45; Stop 02/02/17 at 08:46; Status Cancel Insulin Aspart (NovoLOG) 15 units 1X ONCE SQ Last administered on 02/02/17 08 :42; Start 02/02/17 at 08:45; Stop 02/02/17 at 08:46; Status DC Loperamide HCl (Imodium) 2 mg PRN Q15MIN PRN PO DIARRHEA Last administered on 09:43; Start 02/02/17 at 11:15; Stop 02/03/17 at 12:31; Status DC Loperamide HCl (Imodium) 2 mg PRN Q15MIN PRN PO DIARRHEA Last administered on 01:35; Start 02/02/17 at 12:45; Stop 02/04/17 at 14:00; Status DC Insulin Detemir (Levemir) 35 units QHS SQ Last administered on 02/06/17 20:58; Start 02/03/17 at 21:00 Metoprolol Tartrate (Lopressor) 12.5 mg BID PO Last administered on 02/07/17 09 :44; Start 02/03/17 at 21:00 Furosemide (Lasix) 60 mg DAILY PO Last administered on 02/04/17 08:57; Start 02/04/17 at 09:00; Stop 02/04/17 at 14:34; Status DC Heparin Sodium (Porcine) (Heparin Sq) 5,000 unit Q8HRS SQ Last administered on 02/07/17 05:48; Start 02/04/17 at 14:00 Loperamide HCl (Imodium) 2 mg TID PO Last administered on 02/07/17 09:43; Start 02/04/17 at 14:00 Magnesium Sulfate/ Dextrose 50 ml @ 25 mls/hr PRN DAILY PRN IV for Mag < 1.7 on am labs; Start 02/04/17 at 14:30; Stop 02/05/17 at 10:05; Status DC Furosemide 100 mg/ Sodium Chloride 100 ml @ 0 mls/hr CONT PRN IV SEE I/O RECORD Last administered on 02/04/17 15:59; Start 02/04/17 at 14:30; Stop at 09:27; Status DC Acetylcysteine (Mucomyst 20% Oral Solution) 1,200 mg BID PO Last administered on 02/06/17 20:49; Start 02/05/17 at 09:00; Stop 02/07/17 at 08:59; Status DC Sodium Polystyrene Sulfonate (Kayexalate) 30 gm 1X ONCE PO Last administered on 02/06/17 09:49; Start 02/06/17 at 09:30; Stop 02/06/17 at 09:31; Status DC Dextrose 10 ml 1X ONCE IV Last administered on 02/06/17 09:56; Start 02/06/17 at 09:30; Stop 02/06/17 at 09:31; Status DC Insulin Human Regular (NovoLIN R VIAL) 10 unit 1X ONCE IV Last administered on 02/06/17 09:59; Start 02/06/17 at 09:30; Stop 02/06/17 at 09:31; Status DC Heparin Sodium/ Sodium Chloride 500 ml @ As Directed STK-MED ONCE .ROUTE ; Start 02/06/17 at 10:10; Stop 02/06/17 at 10:11; Status DC Lidocaine HCl 20 ml STK-MED ONCE .ROUTE ; Start 02/06/17 at 10:10; Stop 02/06/17 at 10:11; Status DC Fentanyl Citrate (Fentanyl 2ml Vial) 100 mcg STK-MED ONCE .ROUTE ; Start at 10:39; Stop 02/06/17 at 10:40; Status DC Midazolam HCl (Versed) 2 mg STK-MED ONCE .ROUTE ; Start 02/06/17 at 10:39; Stop 02/06/17 at 10:40; Status DC Heparin Sodium/ Sodium Chloride 1,000 unit 1X ONCE IART Last administered on 11:10; Start 02/06/17 at 11:15; Stop 02/06/17 at 11:16; Status DC Midazolam HCl (Versed) 1 mg 1X ONCE IV Last administered on 02/06/17 11:11; Start 02/06/17 at 11:15; Stop 02/06/17 at 11:16; Status DC Fentanyl Citrate (Fentanyl 2ml Vial) 50 mcg 1X ONCE IV Last administered on 11:11; Start 02/06/17 at 11:15; Stop 02/06/17 at 11:16; Status DC Lidocaine HCl 20 ml 1X ONCE IJ Last administered on 02/06/17 11:10; Start 02/06 at 11:15; Stop 02/06/17 at 11:16; Status DC Sodium Chloride (Normal Saline Flush) 3 ml QSHIFT PRN IV AFTER MEDS AND BLOOD DRAWS; Start 02/06/17 at 11:15 Nitroglycerin (Nitrostat) 0.4 mg PRN Q5MIN PRN SL CHEST PAIN; Start 02/06/17 at 11:15 Iron Sucrose 200 mg/Sodium Chloride 110 ml @ 55 mls/hr 3X/WEEK IV Last administered on 02/06/17 16:30; Start 02/06/17 at 13:00; Stop 02/16/17 at 10:59 Furosemide 100 mg/ Sodium Chloride 100 ml @ 0 mls/hr CONT PRN IV SEE I/O RECORD Last administered on 02/06/17 18:52; Start 02/06/17 at 13:30 Active Scripts Active Xanax (Alprazolam) 0.25 Mg Tablet 0.25 Mg PO QHS PRN Oxycodone-Acetaminophen 10-325 (Oxycodone Hcl/Acetaminophen) 1 Each Tablet 1 Tab PO PRN Q6HRS PRN Hydralazine Hcl 25 Mg Tablet 25 Mg PO BID Carvedilol 12.5 Mg Tablet 12.5 Mg PO BIDWMEALS Fluconazole 100 Mg Tablet 1 Tab PO DAILY Lasix (Furosemide) 40 Mg Tablet 40 Mg PO BID Reported Lisinopril 40 Mg Tablet 1 Tab PO DAILY Humalog (Insulin Lispro) 100 Unit/1 Ml Vial 50 Unit SQ TID Lortab 5-325 mg Tablet (Hydrocodone/Acetaminophen) 1 Each Tablet 1 Tab PO PRN Q6HRS PRN Levemir (Insulin Detemir) 100 Unit/1 Ml Vial 40 Unit SQ HS Victoza 3-Devon (Liraglutide) 0.6 Mg/0.1 Ml Pen.injctr 1.2 Mg SQ DAILY Gabapentin 300 Mg Capsule 1 Cap PO DAILY PRN Vitamin D3 (Cholecalciferol (Vitamin D3)) 5,000 Unit Tablet 1 Tab PO DAILY Glimepiride 4 Mg Tablet 1 Tab PO BID Tramadol Hcl 50 Mg Tablet 2 Tab PO BID Cyclobenzaprine Hcl 10 Mg Tablet 1 Tab PO BID Klor-Con 10 (Potassium Chloride) 10 Meq Tablet.er 1 Tab PO DAILY Omeprazole 20 Mg Capsule.dr 1 Cap PO DAILY Vitals/I & O Vital Sign - Last 24 Hours 02/06/17 02/06/17 02/06/17 02/06/17 13:58 14:30 19:20 19:56 Temp 98.8 98.8 Pulse 88 83 92 Resp 18 26 B/P (MAP) 137/64 (88) 137/64 (88) 171/116 (134) Pulse Ox 97 97 O2 Delivery Room Air Room Air Room Air O2 Flow Rate 2.0 02/06/17 02/06/17 02/06/17 02/07/17 20:50 20:51 23:25 01:40 Temp 99.3 99.3 Pulse 92 92 94 Resp 26 20 B/P (MAP) 171/116 171/116 164/86 (112) Pulse Ox 96 O2 Delivery Room Air Room Air 02/07/17 02/07/17 02/07/17 02/07/17 02:45 03:45 07:15 08:15 Temp 99.3 99.7 99.3 99.7 Pulse 90 85 Resp 20 20 20 B/P (MAP) 145/80 (101) 159/84 (109) Pulse Ox 95 92 O2 Delivery Room Air Room Air Room Air Room Air 02/07/17 02/07/17 02/07/17 02/07/17 09:44 09:44 09:47 10:11 Pulse 85 85 85 B/P (MAP) 159/84 159/84 159/84 Pulse Ox 92 O2 Delivery Room Air O2 Flow Rate 2.0 02/07/17 11:00 Temp 99.0 99.0 Pulse 95 Resp 20 B/P (MAP) 167/88 (114) Pulse Ox 96 O2 Delivery Room Air Intake and Output 02/06/17 02/06/17 02/07/17 15:00 23:00 07:00 Intake Total 450 ml 160 ml Output Total 1200 ml 1400 ml Balance -750 ml -1240 ml DHRUV LACEY MD Feb 07, 2017 13:09
[2017-02-07] MEDS ORDERED: FUROSEMIDE 20 MG/2 ML VIAL. IVP ONE (13:30)
--- NOTE | 2017-02-07 13:46 | RAD ---
Indication: Right knee pain. Time of exam 1326 hours. 2 views right knee demonstrates significant medial and patellofemoral compartmental degenerative change with joint space narrowing and marginal osteophyte formation. Milder lateral compartmental degenerative changes seen. There is a moderate joint effusion. No fracture is identified. There is no dislocation. Benign soft tissue calcifications anterior knee are noted. Impression: Significant degenerative changes and moderate joint effusion. No acute bony abnormality is detected.
[2017-02-07 15:00] VITALS: BP 165/90
[2017-02-07] MEDS: FUROSEMIDE INJ 100 MG in IV NORMAL SALINE 100ML 100 ML IV PRN (17:12)
[2017-02-07 19:15] VITALS: BP 137/73
[2017-02-07] MEDS: ACETAMINOPHEN 325 MG TABLET. PO PRN (20:29)
[2017-02-07] MEDS: INSULIN DETEMIR 300 UNITS/3 ML INSULN.PEN. SQ SCH (21:30)
[2017-02-07] MEDS: DEXTROSE ORAL GEL 15 GM TUBE. PO PRN (21:51)
[2017-02-07 23:25] VITALS: BP 145/73
[2017-02-08 03:15] VITALS: BP 177/95
[2017-02-08] MEDS: HEPARIN PF for SUB-Q USE 5,000 UNIT/0.5 ML VIAL. SQ SCH ×3 (05:49→21:29)
[2017-02-08 06:05] LABS: BASO % 0 % (0-3); EOS % 1 % (0-3); HEMATOCRIT 34.3 % (36.0-47.0); HEMOGLOBIN 11.3 g/dL (12.0-15.5); LYMPH # 1.5 x10^3/uL (1.0-4.8); LYMPH % 16 % (24-48); MEAN CORPUSCULAR HEMOGLOBIN 29 pg (25-35); MEAN CORPUSCULAR HGB CONC 33 g/dL (31-37); MEAN CORPUSCULAR VOLUME 87 fL (79-100); MONO % 11 % (0-9); NEUT % 73 % (31-73); PLATELET COUNT 143 x10^3/uL (140-400); RED BLOOD COUNT 3.94 x10^6/uL (3.50-5.40); RED CELL DISTRIBUTION WIDTH 16.2 % (11.5-14.5); WHITE BLOOD COUNT 9.4 x10^3/uL (4.0-11.0)
[2017-02-08 06:13] LABS: ALBUMIN 2.5 g/dL (3.4-5.0); CALCIUM 8.7 mg/dL (8.5-10.1); CREATININE 2.8 mg/dL (0.6-1.0); GFR 16.8; MAGNESIUM 1.9 mg/dL (1.8-2.4); PHOSPHORUS 4.1 mg/dL (2.6-4.7); POTASSIUM 4.1 mmol/L (3.5-5.1)
[2017-02-08 07:00] VITALS: BP 167/81
[2017-02-08] MEDS: INSULIN ASPART 300 UNITS/3 ML INSULN.PEN SQ SCH ×3 (08:00→17:00)
--- NOTE | 2017-02-08 08:15 | RAD ---
Indication: Bilateral lower extremity edema. Grayscale, color-flow and duplex Doppler evaluation of both lower extremity deep venous systems was performed. There is no evidence of a right or left lower extremity DVT. Both lower extremity deep venous systems demonstrate normal compressibility with normal response to augmentation and Valsalva. The calf veins are not well visualized, likely owing to patient body habitus. Impression: No evidence of right or left lower extremity DVT.
[2017-02-08] MEDS: LOPERAMIDE 2 MG CAPSULE PO SCH ×3 (09:00→21:00)
[2017-02-08] MEDS: FLUCONAZOLE 100 MG TABLET. PO SCH (09:08)
[2017-02-08] MEDS: ASPIRIN ENTERIC COATED 81 MG TABLET.DR. PO SCH (09:08)
[2017-02-08] MEDS: hydrALAZINE 25 MG TABLET PO SCH ×2 (09:08→21:21)
[2017-02-08] MEDS: CYCLOBENZAPRINE 10 MG TABLET. PO SCH ×2 (09:08→21:21)
[2017-02-08] MEDS: CHOLECALCIFEROL (VITAMIN D3) 5,000 UNIT CAPSULE PO SCH (09:08)
[2017-02-08] MEDS: PANTOPRAZOLE 40 MG TABLET.DR. PO SCH (09:09)
[2017-02-08] MEDS: GABAPENTIN 400 MG CAPSULE. PO SCH ×2 (09:09→21:21)
[2017-02-08] MEDS: METOPROLOL TART IMMED RELEASE 25 MG TABLET. PO SCH ×2 (09:09→21:23)
[2017-02-08] MEDS: LISINOPRIL 40 MG TABLET. PO SCH (09:09)
[2017-02-08] MEDS: GLIMEPIRIDE 2 MG TABLET. PO SCH ×2 (09:10→17:00)
[2017-02-08] MEDS: oxyCODONE IR 5 MG TABLET PO PRN (09:18)
[2017-02-08 11:00] VITALS: BP 160/83
--- NOTE | 2017-02-08 12:50 | PDOC ---
PROGRESS NOTES Chief Complaint Chief Complaint 1. Acute-on chronic congestive heart failure, likely systolic versus diastolic or combined. 2. s/p RHC - 02/06/17- normal 2. Old lymphedema. 3. Obesity. 4. Diabetes type 2. Unknown Hgb A1c. 6. Chronic kidney disease. 7. Anemia of chronic disease. 8. Limited mobility, wheelchair-bound. 9. Chest heaviness. 10. Diarrhea x 2 weeks, hx subtotal colectomy (family hx Familial polyposis?) History of Present Illness History of Present Illness Remains on lasix gtt at 5 BMP crea 2 plus,stable K ok Pt feels not good Legs not worse, but also not significantly better [place] in, good uO ESR 46 few days ago CXR stable Rt knee was bothering her, US neg for clot, xray shows fluid and DJD PLAn: Recheck ESR MAy consult ortho re R knee pain and swelling, injections for sx relief? fluid enough to tap r/o gout or pseudogout? Apply voltaren gel to knee given kidney fcn Monitor BMP while on lasix gtt MIght need SNU (HH initiallyw as the plan) Vitals Vitals Vital Signs Date Time Temp Pulse Resp B/P (MAP) Pulse Ox O2 Delivery O2 Flow Rate FiO2 02/08/17 11:00 99.7 105 22 160/83 (108) 92 Room Air 99.7 02/08/17 09:18 2.0 Physical Exam General: Alert, Oriented X3, Cooperative, No acute distress Heart: Regular rate, Normal S1, Normal S2 Lungs: Clear, Other (no wheezing) Abdomen: Normal bowel sounds, Soft, No tenderness Extremities: Normal pulses, Other (+2 -3 edema, + right femoral pulse, no hematoma, bleeding or bruit, +2 distal pulse. ; Rt knee swelling and pain, limited rOM but no erythema) Skin: No significant lesion Labs LABS Laboratory Tests Test 02/07/17 14:10 02/07/17 16:37 02/07/17 21:37 02/07/17 21:57 Erythrocyte Sedimentation Rate 46 (0-25) Uric Acid 11.9 mg/dL (2.6-6.0) Glucose (Fingerstick) 97 mg/dL (70-99) 49 mg/dL (70-99) 124 mg/dL (70-99) Test 02/08/17 05:50 02/08/17 07:59 02/08/17 11:57 White Blood Count 9.4 x10^3/uL (4.0-11.0) Red Blood Count 3.94 x10^6/uL (3.50-5.40) Hemoglobin 11.3 g/dL (12.0-15.5) Hematocrit 34.3 % (36.0-47.0) Mean Corpuscular Volume 87 fL (79-100) Mean Corpuscular Hemoglobin 29 pg (25-35) Mean Corpuscular Hemoglobin Concent 33 g/dL (31-37) Red Cell Distribution Width 16.2 % (11.5-14.5) Platelet Count 143 x10^3/uL (140-400) Neutrophils (%) (Auto) 73 % (31-73) Lymphocytes (%) (Auto) 16 % (24-48) Monocytes (%) (Auto) 11 % (0-9) Eosinophils (%) (Auto) 1 % (0-3) Basophils (%) (Auto) 0 % (0-3) Neutrophils # (Auto) 6.8 x10^3uL (1.8-7.7) Lymphocytes # (Auto) 1.5 x10^3/uL (1.0-4.8) Monocytes # (Auto) 1.0 x10^3/uL (0.0-1.1) Eosinophils # (Auto) 0.1 x10^3/uL (0.0-0.7) Basophils # (Auto) 0.0 x10^3/uL (0.0-0.2) Sodium Level 141 mmol/L (136-145) Potassium Level 4.1 mmol/L (3.5-5.1) Chloride Level 106 mmol/L (98-107) Carbon Dioxide Level 26 mmol/L (21-32) Anion Gap 9 (6-14) Blood Urea Nitrogen 49 mg/dL (7-20) Creatinine 2.8 mg/dL (0.6-1.0) Estimated GFR (Cockcroft-Gault) 16.8 Glucose Level 84 mg/dL (70-99) Calcium Level 8.7 mg/dL (8.5-10.1) Phosphorus Level 4.1 mg/dL (2.6-4.7) Magnesium Level 1.9 mg/dL (1.8-2.4) Albumin 2.5 g/dL (3.4-5.0) Glucose (Fingerstick) 84 mg/dL (70-99) 87 mg/dL (70-99) Assessment and Plan Assessmemt and Plan sleep did not awaken Problems: Comment Review of Relevant I have reviewed the following items kai (where applicable) has been applied. Labs Laboratory Tests Test 02/06/17 13:00 02/06/17 16:32 02/06/17 20:50 02/07/17 04:40 Potassium Level 4.9 mmol/L (3.5-5.1) 4.2 mmol/L (3.5-5.1) Glucose (Fingerstick) 70 mg/dL (70-99) 96 mg/dL (70-99) White Blood Count 10.1 x10^3/uL (4.0-11.0) Red Blood Count 3.65 x10^6/uL (3.50-5.40) Hemoglobin 10.2 g/dL (12.0-15.5) Hematocrit 32.1 % (36.0-47.0) Mean Corpuscular Volume 88 fL (79-100) Mean Corpuscular Hemoglobin 28 pg (25-35) Mean Corpuscular Hemoglobin Concent 32 g/dL (31-37) Red Cell Distribution Width 15.7 % (11.5-14.5) Platelet Count 152 x10^3/uL (140-400) Neutrophils (%) (Auto) 71 % (31-73) Lymphocytes (%) (Auto) 19 % (24-48) Monocytes (%) (Auto) 10 % (0-9) Eosinophils (%) (Auto) 0 % (0-3) Basophils (%) (Auto) 0 % (0-3) Neutrophils # (Auto) 7.1 x10^3uL (1.8-7.7) Lymphocytes # (Auto) 1.9 x10^3/uL (1.0-4.8) Monocytes # (Auto) 1.0 x10^3/uL (0.0-1.1) Eosinophils # (Auto) 0.0 x10^3/uL (0.0-0.7) Basophils # (Auto) 0.0 x10^3/uL (0.0-0.2) Sodium Level 144 mmol/L (136-145) Chloride Level 110 mmol/L (98-107) Carbon Dioxide Level 25 mmol/L (21-32) Anion Gap 9 (6-14) Blood Urea Nitrogen 48 mg/dL (7-20) Creatinine 2.8 mg/dL (0.6-1.0) Estimated GFR (Cockcroft-Gault) 16.8 Glucose Level 61 mg/dL (70-99) Calcium Level 8.3 mg/dL (8.5-10.1) Phosphorus Level 3.8 mg/dL (2.6-4.7) Magnesium Level 1.8 mg/dL (1.8-2.4) Albumin 2.6 g/dL (3.4-5.0) Test 02/07/17 07:38 02/07/17 08:15 02/07/17 11:36 02/07/17 14:10 Glucose (Fingerstick) 53 mg/dL (70-99) 61 mg/dL (70-99) 73 mg/dL (70-99) Erythrocyte Sedimentation Rate 46 (0-25) Uric Acid 11.9 mg/dL (2.6-6.0) Test 02/07/17 16:37 02/07/17 21:37 02/07/17 21:57 02/08/17 05:50 Glucose (Fingerstick) 97 mg/dL (70-99) 49 mg/dL (70-99) 124 mg/dL (70-99) White Blood Count 9.4 x10^3/uL (4.0-11.0) Red Blood Count 3.94 x10^6/uL (3.50-5.40) Hemoglobin 11.3 g/dL (12.0-15.5) Hematocrit 34.3 % (36.0-47.0) Mean Corpuscular Volume 87 fL (79-100) Mean Corpuscular Hemoglobin 29 pg (25-35) Mean Corpuscular Hemoglobin Concent 33 g/dL (31-37) Red Cell Distribution Width 16.2 % (11.5-14.5) Platelet Count 143 x10^3/uL (140-400) Neutrophils (%) (Auto) 73 % (31-73) Lymphocytes (%) (Auto) 16 % (24-48) Monocytes (%) (Auto) 11 % (0-9) Eosinophils (%) (Auto) 1 % (0-3) Basophils (%) (Auto) 0 % (0-3) Neutrophils # (Auto) 6.8 x10^3uL (1.8-7.7) Lymphocytes # (Auto) 1.5 x10^3/uL (1.0-4.8) Monocytes # (Auto) 1.0 x10^3/uL (0.0-1.1) Eosinophils # (Auto) 0.1 x10^3/uL (0.0-0.7) Basophils # (Auto) 0.0 x10^3/uL (0.0-0.2) Sodium Level 141 mmol/L (136-145) Potassium Level 4.1 mmol/L (3.5-5.1) Chloride Level 106 mmol/L (98-107) Carbon Dioxide Level 26 mmol/L (21-32) Anion Gap 9 (6-14) Blood Urea Nitrogen 49 mg/dL (7-20) Creatinine 2.8 mg/dL (0.6-1.0) Estimated GFR (Cockcroft-Gault) 16.8 Glucose Level 84 mg/dL (70-99) Calcium Level 8.7 mg/dL (8.5-10.1) Phosphorus Level 4.1 mg/dL (2.6-4.7) Magnesium Level 1.9 mg/dL (1.8-2.4) Albumin 2.5 g/dL (3.4-5.0) Test 02/08/17 07:59 02/08/17 11:57 Glucose (Fingerstick) 84 mg/dL (70-99) 87 mg/dL (70-99) Laboratory Tests Test 02/07/17 14:10 02/07/17 16:37 02/07/17 21:37 02/07/17 21:57 Erythrocyte Sedimentation Rate 46 (0-25) Uric Acid 11.9 mg/dL (2.6-6.0) Glucose (Fingerstick) 97 mg/dL (70-99) 49 mg/dL (70-99) 124 mg/dL (70-99) Test 02/08/17 05:50 02/08/17 07:59 02/08/17 11:57 White Blood Count 9.4 x10^3/uL (4.0-11.0) Red Blood Count 3.94 x10^6/uL (3.50-5.40) Hemoglobin 11.3 g/dL (12.0-15.5) Hematocrit 34.3 % (36.0-47.0) Mean Corpuscular Volume 87 fL (79-100) Mean Corpuscular Hemoglobin 29 pg (25-35) Mean Corpuscular Hemoglobin Concent 33 g/dL (31-37) Red Cell Distribution Width 16.2 % (11.5-14.5) Platelet Count 143 x10^3/uL (140-400) Neutrophils (%) (Auto) 73 % (31-73) Lymphocytes (%) (Auto) 16 % (24-48) Monocytes (%) (Auto) 11 % (0-9) Eosinophils (%) (Auto) 1 % (0-3) Basophils (%) (Auto) 0 % (0-3) Neutrophils # (Auto) 6.8 x10^3uL (1.8-7.7) Lymphocytes # (Auto) 1.5 x10^3/uL (1.0-4.8) Monocytes # (Auto) 1.0 x10^3/uL (0.0-1.1) Eosinophils # (Auto) 0.1 x10^3/uL (0.0-0.7) Basophils # (Auto) 0.0 x10^3/uL (0.0-0.2) Sodium Level 141 mmol/L (136-145) Potassium Level 4.1 mmol/L (3.5-5.1) Chloride Level 106 mmol/L (98-107) Carbon Dioxide Level 26 mmol/L (21-32) Anion Gap 9 (6-14) Blood Urea Nitrogen 49 mg/dL (7-20) Creatinine 2.8 mg/dL (0.6-1.0) Estimated GFR (Cockcroft-Gault) 16.8 Glucose Level 84 mg/dL (70-99) Calcium Level 8.7 mg/dL (8.5-10.1) Phosphorus Level 4.1 mg/dL (2.6-4.7) Magnesium Level 1.9 mg/dL (1.8-2.4) Albumin 2.5 g/dL (3.4-5.0) Glucose (Fingerstick) 84 mg/dL (70-99) 87 mg/dL (70-99) Medications Current Medications Zolpidem Tartrate (Ambien) 5 mg PRN QHS PRN PO INSOMNIA, MAY REPEAT IN 1HR; Start 01/29/17 at 18:45 Oxycodone HCl (Roxicodone) 5 mg PRN Q3HRS PRN PO BREAKTHROUGH PAIN Last administered on 02/08/17 09:18; Start 01/29/17 at 18:45 Acetaminophen (Tylenol) 650 mg PRN Q6HRS PRN PO Headaches, Temp > 101.5F Last administered on 02/07/17 20:29; Start 01/29/17 at 18:45 Ibuprofen (Motrin) 400 mg PRN Q6HRS PRN PO MILD PAIN; Start 01/29/17 at 18:45; Stop 02/05/17 at 09:24; Status DC Docusate Sodium (Colace) 100 mg BID PO Last administered on 02/01/17 08:42; Start 01/29/17 at 21:00; Stop 02/02/17 at 11:08; Status DC Magnesium Hydroxide (Milk Of Magnesia) 2,400 mg PRN Q12HR PRN PO CONSTIPATION; Start 01/29/17 at 18:45 Lactulose 20 gm PRN Q12HR PRN PO CONSTIPATION; Start 01/29/17 at 18:45 Bisacodyl (Dulcolax Supp) 10 mg PRN DAILY PRN [place] CONSTIPATION; Start 01/29/17 at 18:45; Stop 02/02/17 at 11:08; Status DC Enoxaparin Sodium (Lovenox 40mg Syringe) 40 mg Q12HR SQ Last administered on 21:09; Start 01/29/17 at 22:00; Stop 01/31/17 at 07:12; Status DC Alprazolam (Xanax) 0.25 mg QHS PRN PO ANXIETY / AGITATION Last administered on 02/06/17 20:50; Start 01/29/17 at 18:45 Carvedilol (Coreg) 12.5 mg BIDWMEALS PO Last administered on 01/29/17 21:51; Start 01/29/17 at 19:00; Stop 01/30/17 at 11:28; Status DC Cyclobenzaprine HCl (Flexeril) 10 mg BID PO Last administered on 02/08/17 09:08 ; Start 01/29/17 at 21:00 Fluconazole (Diflucan) 100 mg DAILY PO Last administered on 02/08/17 09:08; Start 01/30/17 at 09:00 Furosemide (Lasix) 40 mg BID92 PO ; Start 01/30/17 at 09:00; Stop 01/30/17 at 09 :00; Status DC Hydralazine HCl (Apresoline) 25 mg BID PO Last administered on 02/08/17 09:08; Start 01/29/17 at 21:00 Acetaminophen/ Hydrocodone Bitart (Lortab 5/325) 1 tab PRN Q6HRS PRN PO MILD PAIN Last administered on 01/29/17 22:31; Start 01/29/17 at 18:45 Lisinopril (Prinivil) 40 mg DAILY PO Last administered on 02/08/17 09:09; Start 01/30/17 at 09:00 Oxycodone/ Acetaminophen (Percocet 10/325) 1 tab PRN Q6HRS PRN PO MODERATE- SEVERE PAIN Last administered on 02/04/17 19:16; Start 01/29/17 at 18:45 Tramadol HCl (Ultram) 100 mg BID PO Last administered on 01/29/17 21:50; Start 01/29/17 at 21:00; Stop 01/30/17 at 11:51; Status DC Vitamin D (Vitamin D3) 5,000 unit DAILY PO Last administered on 02/08/17 09:08 ; Start 01/30/17 at 09:00 Gabapentin (Neurontin) 300 mg PRN DAILY PRN PO NERVE PAIN Last administered on 02/04/17 19:16; Start 01/29/17 at 21:00 Glimepiride (Amaryl) 4 mg BIDWMEALS PO Last administered on 02/08/17 09:10; Start 01/30/17 at 09:00 Insulin Detemir (Levemir) 40 units QHS SQ Last administered on 01/29/17 22:01 ; Start 01/29/17 at 21:00; Stop 01/30/17 at 11:51; Status DC Insulin Aspart (NovoLOG) 50 units TIDAC SQ Last administered on 01/29/17 22:00 ; Start 01/29/17 at 19:00; Stop 01/30/17 at 11:51; Status DC Non-Formulary Medication 1.2 mg DAILY SQ ; Start 01/30/17 at 09:00; Stop at 09:00; Status DC Pantoprazole Sodium (Protonix) 40 mg DAILYAC PO Last administered on 02/08/17 09:09; Start 01/30/17 at 07:30 Potassium Chloride (Klor-Con) 10 meq DAILYWBKFT PO Last administered on 08:59; Start 01/30/17 at 08:00; Stop 02/05/17 at 09:21; Status DC Insulin Aspart (NovoLOG) 0-9 UNITS TIDWMEALS SQ Last administered on 02/02/17 17:29; Start 01/30/17 at 08:00 Dextrose (Dextrose 50%-Water Syringe) 12.5 gm PRN Q15MIN PRN IV SEE COMMENTS; Start 01/29/17 at 18:45 Furosemide (Lasix) 40 mg 1X ONCE IVP Last administered on 01/29/17 21:52; Start 01/29/17 at 21:00; Stop 01/29/17 at 21:01; Status DC Furosemide (Lasix) 40 mg BID92 IVP Last administered on 01/30/17 11:01; Start 01/30/17 at 09:00; Stop 01/30/17 at 11:28; Status DC Lidocaine HCl (Xylocaine-Mpf 1% Vial) 2 ml STK-MED ONCE .ROUTE ; Start 01/29/17 at 20:37; Stop 01/29/17 at 20:38; Status DC Dextrose 250 ml @ 1,000 mls/hr 1X ONCE IV ; Start 01/30/17 at 07:45; Stop at 07:59; Status DC Glucose (Insta-Glucose) 15 gm PRN Q15MIN PRN PO LOW BLOOD SUGAR Last administered on 01/30/17 07:55; Start 01/30/17 at 08:00 Glucose (Insta-Glucose) 15 gm STK-MED ONCE .ROUTE ; Start 01/30/17 at 07:52; Stop 01/30/17 at 07:53; Status DC Lidocaine HCl (Xylocaine-Mpf 1% Vial) 2 ml STK-MED ONCE .ROUTE ; Start 01/29/17 at 21:00; Stop 01/30/17 at 09:01; Status DC Furosemide (Lasix) 40 mg DAILY IVP Last administered on 02/03/17 08:39; Start 01/31/17 at 09:00; Stop 02/03/17 at 15:50; Status DC Aspirin (Ecotrin) 81 mg DAILYWBKFT PO Last administered on 02/08/17 09:08; Start 01/30/17 at 12:30 Insulin Detemir (Levemir) 25 units QHS SQ Last administered on 02/02/17 20:54 ; Start 01/30/17 at 21:00; Stop 02/03/17 at 11:09; Status DC Gabapentin (Neurontin) 400 mg BID PO Last administered on 02/08/17 09:09; Start 01/31/17 at 09:00 Gabapentin (Neurontin) 100 mg 1X ONCE PO Last administered on 01/31/17 01:56 ; Start 01/31/17 at 02:00; Stop 01/31/17 at 02:01; Status DC Enoxaparin Sodium (Lovenox 40mg Syringe) 40 mg QHS SQ Last administered on 02/03 20:32; Start 01/31/17 at 21:00; Stop 02/04/17 at 09:32; Status DC Methylprednisolone Acetate (DEPO-Medrol 40MG VIAL) 40 mg 1X ONCE IM Last administered on 02/01/17 13:30; Start 02/01/17 at 13:30; Stop 02/01/17 at 13:31 ; Status DC Lidocaine/Sodium Bicarbonate (Buffered Lidocaine 1%) 20 ml 1X ONCE IJ Last administered on 02/01/17 13:30; Start 02/01/17 at 13:30; Stop 02/01/17 at 13:31 ; Status DC Labetalol HCl (Normodyne) 20 mg PRN Q2HR PRN IVP HYPERTENSION, SEE COMMENTS Last administered on 02/01/17 23:59; Start 02/01/17 at 23:30; Stop 02/03/17 at 15:47; Status DC Insulin Aspart (NovoLOG) 10 units TIDAC SQ Last administered on 02/06/17 07:30 ; Start 02/02/17 at 11:30; Stop 02/07/17 at 13:06; Status DC Insulin Aspart (NovoLOG VIAL) 15 unit 1X ONCE SQ ; Start 02/02/17 at 08:45; Stop 02/02/17 at 08:46; Status Cancel Insulin Aspart (NovoLOG) 15 units 1X ONCE SQ Last administered on 02/02/17 08 :42; Start 02/02/17 at 08:45; Stop 02/02/17 at 08:46; Status DC Loperamide HCl (Imodium) 2 mg PRN Q15MIN PRN PO DIARRHEA Last administered on 09:43; Start 02/02/17 at 11:15; Stop 02/03/17 at 12:31; Status DC Loperamide HCl (Imodium) 2 mg PRN Q15MIN PRN PO DIARRHEA Last administered on 01:35; Start 02/02/17 at 12:45; Stop 02/04/17 at 14:00; Status DC Insulin Detemir (Levemir) 35 units QHS SQ Last administered on 02/06/17 20:58; Start 02/03/17 at 21:00; Stop 02/07/17 at 13:06; Status DC Metoprolol Tartrate (Lopressor) 12.5 mg BID PO Last administered on 02/08/17 09 :09; Start 02/03/17 at 21:00 Furosemide (Lasix) 60 mg DAILY PO Last administered on 02/04/17 08:57; Start 02/04/17 at 09:00; Stop 02/04/17 at 14:34; Status DC Heparin Sodium (Porcine) (Heparin Sq) 5,000 unit Q8HRS SQ Last administered on 02/08/17 05:49; Start 02/04/17 at 14:00 Loperamide HCl (Imodium) 2 mg TID PO Last administered on 02/07/17 20:32; Start 02/04/17 at 14:00 Magnesium Sulfate/ Dextrose 50 ml @ 25 mls/hr PRN DAILY PRN IV for Mag < 1.7 on am labs; Start 02/04/17 at 14:30; Stop 02/05/17 at 10:05; Status DC Furosemide 100 mg/ Sodium Chloride 100 ml @ 0 mls/hr CONT PRN IV SEE I/O RECORD Last administered on 02/04/17 15:59; Start 02/04/17 at 14:30; Stop at 09:27; Status DC Acetylcysteine (Mucomyst 20% Oral Solution) 1,200 mg BID PO Last administered on 02/06/17 20:49; Start 02/05/17 at 09:00; Stop 02/07/17 at 08:59; Status DC Sodium Polystyrene Sulfonate (Kayexalate) 30 gm 1X ONCE PO Last administered on 02/06/17 09:49; Start 02/06/17 at 09:30; Stop 02/06/17 at 09:31; Status DC Dextrose 10 ml 1X ONCE IV Last administered on 02/06/17 09:56; Start 02/06/17 at 09:30; Stop 02/06/17 at 09:31; Status DC Insulin Human Regular (NovoLIN R VIAL) 10 unit 1X ONCE IV Last administered on 02/06/17 09:59; Start 02/06/17 at 09:30; Stop 02/06/17 at 09:31; Status DC Heparin Sodium/ Sodium Chloride 500 ml @ As Directed STK-MED ONCE .ROUTE ; Start 02/06/17 at 10:10; Stop 02/06/17 at 10:11; Status DC Lidocaine HCl 20 ml STK-MED ONCE .ROUTE ; Start 02/06/17 at 10:10; Stop 02/06/17 at 10:11; Status DC Fentanyl Citrate (Fentanyl 2ml Vial) 100 mcg STK-MED ONCE .ROUTE ; Start at 10:39; Stop 02/06/17 at 10:40; Status DC Midazolam HCl (Versed) 2 mg STK-MED ONCE .ROUTE ; Start 02/06/17 at 10:39; Stop 02/06/17 at 10:40; Status DC Heparin Sodium/ Sodium Chloride 1,000 unit 1X ONCE IART Last administered on 11:10; Start 02/06/17 at 11:15; Stop 02/06/17 at 11:16; Status DC Midazolam HCl (Versed) 1 mg 1X ONCE IV Last administered on 02/06/17 11:11; Start 02/06/17 at 11:15; Stop 02/06/17 at 11:16; Status DC Fentanyl Citrate (Fentanyl 2ml Vial) 50 mcg 1X ONCE IV Last administered on 11:11; Start 02/06/17 at 11:15; Stop 02/06/17 at 11:16; Status DC Lidocaine HCl 20 ml 1X ONCE IJ Last administered on 02/06/17 11:10; Start 02/06 at 11:15; Stop 02/06/17 at 11:16; Status DC Sodium Chloride (Normal Saline Flush) 3 ml QSHIFT PRN IV AFTER MEDS AND BLOOD DRAWS; Start 02/06/17 at 11:15 Nitroglycerin (Nitrostat) 0.4 mg PRN Q5MIN PRN SL CHEST PAIN; Start 02/06/17 at 11:15 Iron Sucrose 200 mg/Sodium Chloride 110 ml @ 55 mls/hr 3X/WEEK IV Last administered on 02/06/17 16:30; Start 02/06/17 at 13:00; Stop 02/16/17 at 10:59 Furosemide 100 mg/ Sodium Chloride 100 ml @ 0 mls/hr CONT PRN IV SEE I/O RECORD Last administered on 02/07/17 17:12; Start 02/06/17 at 13:30 Insulin Detemir (Levemir) 20 units QHS SQ ; Start 02/07/17 at 21:00 Furosemide (Lasix) 20 mg 1X ONCE IVP ; Start 02/07/17 at 13:30; Stop 02/07/17 at 13:31; Status Cancel Active Scripts Active Xanax (Alprazolam) 0.25 Mg Tablet 0.25 Mg PO QHS PRN Oxycodone-Acetaminophen 10-325 (Oxycodone Hcl/Acetaminophen) 1 Each Tablet 1 Tab PO PRN Q6HRS PRN Hydralazine Hcl 25 Mg Tablet 25 Mg PO BID Carvedilol 12.5 Mg Tablet 12.5 Mg PO BIDWMEALS Fluconazole 100 Mg Tablet 1 Tab PO DAILY Lasix (Furosemide) 40 Mg Tablet 40 Mg PO BID Reported Lisinopril 40 Mg Tablet 1 Tab PO DAILY Humalog (Insulin Lispro) 100 Unit/1 Ml Vial 50 Unit SQ TID Lortab 5-325 mg Tablet (Hydrocodone/Acetaminophen) 1 Each Tablet 1 Tab PO PRN Q6HRS PRN Levemir (Insulin Detemir) 100 Unit/1 Ml Vial 40 Unit SQ HS Victoza 3-Devon (Liraglutide) 0.6 Mg/0.1 Ml Pen.injctr 1.2 Mg SQ DAILY Gabapentin 300 Mg Capsule 1 Cap PO DAILY PRN Vitamin D3 (Cholecalciferol (Vitamin D3)) 5,000 Unit Tablet 1 Tab PO DAILY Glimepiride 4 Mg Tablet 1 Tab PO BID Tramadol Hcl 50 Mg Tablet 2 Tab PO BID Cyclobenzaprine Hcl 10 Mg Tablet 1 Tab PO BID Klor-Con 10 (Potassium Chloride) 10 Meq Tablet.er 1 Tab PO DAILY Omeprazole 20 Mg Capsule.dr 1 Cap PO DAILY Vitals/I & O Vital Sign - Last 24 Hours 02/07/17 02/07/17 02/07/17 02/07/17 14:19 15:00 15:34 19:15 Temp 98.5 100.5 98.5 100.5 Pulse 85 103 Resp 20 24 B/P (MAP) 165/90 (115) 137/73 (94) Pulse Ox 96 96 89 O2 Delivery Room Air Room Air Room Air Room Air O2 Flow Rate 2.0 02/07/17 02/07/17 02/07/17 02/07/17 19:48 20:12 20:30 20:31 Pulse 101 101 101 B/P (MAP) 137/73 137/73 Pulse Ox 94 O2 Delivery Room Air Room Air O2 Flow Rate 2.0 02/07/17 02/08/17 02/08/17 02/08/17 23:25 03:15 07:00 08:10 Temp 98.3 98.7 99.2 98.3 98.7 99.2 Pulse 83 84 90 Resp 20 22 22 B/P (MAP) 145/73 (97) 177/95 (122) 167/81 (109) Pulse Ox 94 93 91 O2 Delivery Room Air Room Air Room Air Room Air 02/08/17 02/08/17 02/08/17 02/08/17 09:08 09:09 09:09 09:18 Pulse 90 90 90 B/P (MAP) 167/81 167/81 167/81 Pulse Ox 91 O2 Delivery Room Air O2 Flow Rate 2.0 02/08/17 11:00 Temp 99.7 99.7 Pulse 105 Resp 22 B/P (MAP) 160/83 (108) Pulse Ox 92 O2 Delivery Room Air Intake and Output 02/07/17 02/07/17 02/08/17 15:00 23:00 07:00 Intake Total 218 ml 240 ml 410 ml Output Total 3600 ml 1300 ml Balance 218 ml -3360 ml -890 ml DHRUV LACEY MD Feb 08, 2017 12:50
[2017-02-08] MEDS: DICLOFENAC SODIUM 1% TOPICAL GEL 100GM TUBE. TP SCH ×2 (13:54→21:00)
[2017-02-08] MEDS ORDERED: LIDOCAINE 1% PF 30 ML VIAL. INJ ONE (14:00)
--- NOTE | 2017-02-08 14:35 | PDOC ---
Provider Note Provider Note Provider Note RENAL F/U : SID DOS : 02/07/17 S: No new issues. O : Doing OK VSS Afebrile. Neck ; Supple Lungs : Non labored. CVS : RRR Abd: Benign appearing. improved edema. A/P: ARF/ATN HTN w CKD CKD stage III EDEMA. Supportive care. Well diuresed. Cr stable. I/Os negative. Exam stabl.e CPM. Alexandra Lau M.D. ALEXANDRA LAU MD Feb 08, 2017 14:35
[2017-02-08 15:00] VITALS: BP 186/94
--- NOTE | 2017-02-08 15:38 | PDOC ---
CARDIOLOGY PROGRESS NOTE SUBJECTIVE: Confused today. Denies any chest pain. Reports dyspnea is improved. Pain in BLE persistent. OBJECTIVE: Vital SIgns: Vital Signs Date Time Temp Pulse Resp B/P (MAP) Pulse Ox O2 Delivery O2 Flow Rate FiO2 02/08/17 15:00 99.5 104 20 186/94 (124) 90 Room Air 99.5 02/08/17 09:18 2.0 I & O Intake and Output 02/08/17 07:00 Intake Total 868 ml Output Total 4900 ml Balance -4032 ml Intake Oral 808 ml IV Total 60 ml Output Urine Total 4900 ml Objective: Gen: A/O to self but not place and time. HEENT: mmm, op clr CVS: Irr irr. No m/r/g. PULM: CTA anteriorly. ABd: Obese, NT/ND EXT: 2+ edema, slightly improved. CURRENT MEDICATIONS: Current Medications Medications (Trade) Dose Ordered Sig/Aileen Start Time Stop Time Status Last Admin Dose Admin Acetaminophen (Tylenol) 650 mg PRN Q6HRS PRN 01/29/17 18:45 02/07/17 20:29 650 MG Acetaminophen/ Hydrocodone Bitart (Lortab 5/325) 1 tab PRN Q6HRS PRN 01/29/17 18:45 01/29/17 22:31 1 TAB Acetylcysteine (Mucomyst 20% Oral Solution) 1,200 mg BID 02/05/17 09:00 02/07/17 08:59 DC 02/06/17 20:49 1,200 MG Alprazolam (Xanax) 0.25 mg QHS PRN 01/29/17 18:45 02/06/17 20:50 0.25 MG Amlodipine Besylate (Norvasc) 10 mg 1X ONCE 02/08/17 16:00 02/08/17 16:01 Aspirin (Ecotrin) 81 mg DAILYWBKFT 01/30/17 12:30 02/08/17 09:08 81 MG Bisacodyl (Dulcolax Supp) 10 mg PRN DAILY PRN 01/29/17 18:45 02/02/17 11:08 DC Carvedilol (Coreg) 12.5 mg BIDWMEALS 01/29/17 19:00 01/30/17 11:28 DC 01/29/17 21:51 12.5 MG Cyclobenzaprine HCl (Flexeril) 10 mg BID 01/29/17 21:00 02/08/17 09:08 10 MG Dextrose 10 ml 1X ONCE 02/06/17 09:30 02/06/17 09:31 DC 02/06/17 09:56 10 ML Dextrose (Dextrose 50%-Water Syringe) 12.5 gm PRN Q15MIN PRN 01/29/17 18:45 Diclofenac Sodium (Voltaren) 1 katia BID 02/08/17 13:30 02/08/17 13:54 1 KATIA Docusate Sodium (Colace) 100 mg BID 01/29/17 21:00 02/02/17 11:08 DC 02/01/17 08:42 100 MG Enoxaparin Sodium (Lovenox 40mg Syringe) 40 mg QHS 01/31/17 21:00 02/04/17 09:32 DC 02/03/17 20:32 40 MG Fentanyl Citrate (Fentanyl 2ml Vial) 50 mcg 1X ONCE 02/06/17 11:15 02/06/17 11:16 DC 02/06/17 11:11 50 MCG Fluconazole (Diflucan) 100 mg DAILY 01/30/17 09:00 02/08/17 09:08 100 MG Furosemide (Lasix) 20 mg 1X ONCE 02/07/17 13:30 02/07/17 13:31 Cancel Furosemide 100 mg/ Sodium Chloride 100 ml @ 0 mls/hr CONT PRN 02/06/17 13:30 02/07/17 17:12 5 MLS/HR Gabapentin (Neurontin) 100 mg 1X ONCE 01/31/17 02:00 01/31/17 02:01 DC 01/31/17 01:56 100 MG Glimepiride (Amaryl) 4 mg BIDWMEALS 01/30/17 09:00 02/08/17 09:10 4 MG Glucose (Insta-Glucose) 15 gm STK-MED ONCE 01/30/17 07:52 01/30/17 07:53 DC Heparin Sodium (Porcine) (Heparin Sq) 5,000 unit Q8HRS 02/04/17 14:00 02/08/17 13:59 5,000 UNIT Heparin Sodium/ Sodium Chloride 1,000 unit 1X ONCE 02/06/17 11:15 02/06/17 11:16 DC 02/06/17 11:10 1,000 UNIT Hydralazine HCl (Apresoline) 25 mg BID 01/29/17 21:00 02/08/17 09:08 25 MG Ibuprofen (Motrin) 400 mg PRN Q6HRS PRN 01/29/17 18:45 02/05/17 09:24 DC Insulin Aspart (NovoLOG VIAL) 15 unit 1X ONCE 02/02/17 08:45 02/02/17 08:46 Cancel Insulin Aspart (NovoLOG) 15 units 1X ONCE 02/02/17 08:45 02/02/17 08:46 DC 02/02/17 08:42 6 UNITS Insulin Detemir (Levemir) 20 units QHS 02/07/17 21:00 Insulin Human Regular (NovoLIN R VIAL) 10 unit 1X ONCE 02/06/17 09:30 02/06/17 09:31 DC 02/06/17 09:59 10 UNIT Iron Sucrose 200 mg/Sodium Chloride 110 ml @ 55 mls/hr 3X/WEEK 02/06/17 13:00 02/16/17 10:59 02/06/17 16:30 55 MLS/HR Labetalol HCl (Normodyne) 20 mg PRN Q2HR PRN 02/01/17 23:30 02/03/17 15:47 DC 02/01/17 23:59 20 MG Lactulose 20 gm PRN Q12HR PRN 01/29/17 18:45 Lidocaine HCl 10 ml 1X ONCE 02/08/17 14:00 02/08/17 14:01 DC Lidocaine HCl (Xylocaine-Mpf 1% Vial) 2 ml STK-MED ONCE 01/29/17 21:00 01/30/17 09:01 DC Lidocaine HCl 16 ml/Sodium Bicarbonate 4 meq/ Miscellaneous 20 ml @ 20 mls/hr 1X ONCE 02/09/17 06:00 02/09/17 06:59 UNV Lidocaine/Sodium Bicarbonate (Buffered Lidocaine 1%) 20 ml 1X ONCE 02/01/17 13:30 02/01/17 13:31 DC 02/01/17 13:30 20 ML Lisinopril (Prinivil) 40 mg DAILY 01/30/17 09:00 02/08/17 09:09 40 MG Loperamide HCl (Imodium) 2 mg TID 02/04/17 14:00 02/07/17 20:32 2 MG Magnesium Hydroxide (Milk Of Magnesia) 2,400 mg PRN Q12HR PRN 01/29/17 18:45 Magnesium Sulfate/ Dextrose 50 ml @ 25 mls/hr PRN DAILY PRN 02/04/17 14:30 02/05/17 10:05 DC Methylprednisolone Acetate (DEPO-Medrol 40MG VIAL) 40 mg 1X ONCE 02/01/17 13:30 02/01/17 13:31 DC 02/01/17 13:30 40 MG Metoprolol Tartrate (Lopressor) 12.5 mg BID 02/03/17 21:00 02/08/17 09:09 12.5 MG Midazolam HCl (Versed) 1 mg 1X ONCE 02/06/17 11:15 02/06/17 11:16 DC 02/06/17 11:11 1 MG Nitroglycerin (Nitrostat) 0.4 mg PRN Q5MIN PRN 02/06/17 11:15 Non-Formulary Medication 1.2 mg DAILY 01/30/17 09:00 01/30/17 09:00 DC Oxycodone HCl (Roxicodone) 5 mg PRN Q3HRS PRN 01/29/17 18:45 02/08/17 09:18 5 MG Oxycodone/ Acetaminophen (Percocet 10/325) 1 tab PRN Q6HRS PRN 01/29/17 18:45 02/04/17 19:16 1 TAB Pantoprazole Sodium (Protonix) 40 mg DAILYAC 01/30/17 07:30 02/08/17 09:09 40 MG Potassium Chloride (Klor-Con) 10 meq DAILYWBKFT 01/30/17 08:00 02/05/17 09:21 DC 02/04/17 08:59 10 MEQ Sodium Polystyrene Sulfonate (Kayexalate) 30 gm 1X ONCE 02/06/17 09:30 02/06/17 09:31 DC 02/06/17 09:49 30 GM Sodium Chloride (Normal Saline Flush) 3 ml QSHIFT PRN 02/06/17 11:15 Tramadol HCl (Ultram) 100 mg BID 01/29/17 21:00 01/30/17 11:51 DC 01/29/17 21:50 100 MG Vitamin D (Vitamin D3) 5,000 unit DAILY 01/30/17 09:00 02/08/17 09:08 5,000 UNIT Zolpidem Tartrate (Ambien) 5 mg PRN QHS PRN 01/29/17 18:45 DIAGNOSTIC TESTING: Cr 2.8 Hgb 11.3, Plt 143 ASSESSMENT: 1. Mental status changes DDx: Narcotics, pain, HTN, ? UTI, ? CO2 retention 2. Diastolic HF - acute on chronic 3. JOSE on CKD 4. HTN 5. Morbid obesity Problems: PLAN: 1. Will add amlodipine for BP control. 2. Continue lasix. 3. Check ABG and UA. Will follow. LEON GARDNER MD Feb 08, 2017 15:37
[2017-02-08] MEDS: FUROSEMIDE INJ 100 MG in IV NORMAL SALINE 100ML 100 ML IV PRN (15:44)
[2017-02-08] MEDS ORDERED: amLODIPine BESYLATE 10 MG TABLET PO ONE (16:00)
[2017-02-08 16:09] LABS: HCO3 ABG 23 mmol/L (21-28); PCO2 ABG 35 mmHg (35-46); PH ABG 7.44 (7.35-7.45); SAT O2 ABG 85 % (92-99)
[2017-02-08 16:37] LABS: FIO2 ABG 21; PO2 ABG 48 mmHg (65-108)
[2017-02-08 18:35] LABS: BF CLARITY CLOUDY; BF COLOR YELLOW
[2017-02-08 18:55] LABS: BILIRUBIN,URINE NEGATIVE (NEG); GLUCOSE,URINE NEGATIVE (NEG); NITRITE,URINE NEGATIVE (NEG); PROTEIN,URINE 100 mg/dL (NEG-TRACE)
[2017-02-08 19:03] LABS: BACTERIA,URINE MANY /HPF (0-FEW); RBC,URINE OCC /HPF (0-2); SQUAMOUS EPITHELIAL CELL,UR FEW /LPF
[2017-02-08 19:05] VITALS: BP 104/54
[2017-02-08] MEDS: GABAPENTIN 300 MG CAPSULE. PO PRN (19:38)
[2017-02-08] MEDS: oxyCODONE/APAP 10/325 1 TAB TABLET PO PRN (19:39)
[2017-02-08] MEDS: INSULIN DETEMIR 300 UNITS/3 ML INSULN.PEN. SQ SCH (21:00)
[2017-02-08] MEDS: ACETAMINOPHEN 325 MG TABLET. PO PRN (21:24)
[2017-02-08 23:25] VITALS: BP 109/60
[2017-02-09] VITALS (7 sets, daily range): BP systolic 81–128; BP diastolic 42–72
--- NOTE | 2017-02-09 02:17 | CONS ---
DATE OF CONSULTATION: 02/08/2017 REQUESTING PHYSICIAN: Dr. Chayo Argueta. REASON FOR CONSULTATION: Right knee pain and swelling. HISTORY OF PRESENT ILLNESS: The patient is currently on the cardiac unit was admitted for lower extremity swelling and indicates that she has had right knee pain since after a cardiac catheterization procedure was done early in her hospital stay. She does indicate that she has been feeling very cold despite a lot of blankets on over the past few days. Denies any trauma to the right knee, but is having such severe pain. She is having difficulty bearing weight or transferring or ambulating at all. PAST MEDICAL HISTORY: Significant for diabetes, congestive heart failure, anemia of chronic disease, obesity, chronic kidney disease. PAST SURGICAL HISTORY: Really only significant for the catheterization. ALLERGIES: She has no known drug allergies. SOCIAL HISTORY: Accompanied by her at the time of my visit. Denies stroke, smoking, alcohol or drug use. Ambulatory, but transfers and use of a wheelchair and does live at home with her . FAMILY HISTORY: Noncontributory. MEDICATIONS: List is reviewed. REVIEW OF SYSTEMS: Significant only for the chills and the isolated right knee pain and swelling for about a week. She denies any otherwise focal weakness, numbness, tingling in the extremities, change in bowel or bladder habits radiating pain. She has had of note ____ even prior to the hospital admission and ongoing significant swelling in both legs. On examination, she has normal motion, alignment and stability of bilateral shoulders, elbows and wrists. Has significant pain with any attempted range of motion of the right knee. She has no instability, no redness or erythema. She has some slight warmth to the right knee compared to the left. Reasonable motion of the left knee again with normal stability, patellofemoral tracking, good hip and ankle range of motion bilaterally with overall intact motor function, distal pulses, sensation, reflexes, skin in both upper and lower extremities throughout. Knee x-rays from 02/07/2017 show significant degenerative changes, moderate joint effusion, no evidence of fracture. Duplex ultrasound was negative for DVT. IMPRESSION: Right knee pain and swelling apparent atraumatic onset. TREATMENT PLAN: Given the fact that she is having some fever and chills, hard to say if there may be some potential infectious etiology of the knee, although it does not seem to give that picture. She certainly does have an effusion which I would like to tap today to see send it for laboratory examination, see if there is any abnormality in her joint fluid, possibly inflammatory arthritis or other causes. All her questions were answered and after verbal consent was obtained, the right knee was prepped and draped in standard sterile fashion and the tract for aspiration was infused with 1% plain lidocaine lateral aspect of the suprapatellar pouch and an 18-gauge needle was used to aspirate from the lateral suprapatellar area about 50 mL of apparently normal appearing joint fluid, which was sent for laboratory examination including cell count, aerobic and anaerobic cultures, Gram stain. The patient tolerated the procedure well. Dressing was applied and will continue current symptomatic treatment based on the fact that the joint fluid was normal in appearance, awaiting laboratory analysis. CATHERINE HOLLAND MD DR: NORA/isaac JOB#: [id number] / [id number]
[2017-02-09 04:32] LABS: BASO % 0 % (0-3); EOS % 0 % (0-3); HEMATOCRIT 29.1 % (36.0-47.0); HEMOGLOBIN 9.5 g/dL (12.0-15.5); LYMPH # 1.9 x10^3/uL (1.0-4.8); LYMPH % 19 % (24-48); MEAN CORPUSCULAR HEMOGLOBIN 29 pg (25-35); MEAN CORPUSCULAR HGB CONC 33 g/dL (31-37); MEAN CORPUSCULAR VOLUME 88 fL (79-100); MONO % 12 % (0-9); NEUT % 68 % (31-73); PLATELET COUNT 124 x10^3/uL (140-400); RED BLOOD COUNT 3.31 x10^6/uL (3.50-5.40); RED CELL DISTRIBUTION WIDTH 15.5 % (11.5-14.5); WHITE BLOOD COUNT 9.7 x10^3/uL (4.0-11.0)
[2017-02-09 05:04] LABS: ALBUMIN 1.9 g/dL (3.4-5.0); CALCIUM 8.3 mg/dL (8.5-10.1); CREATININE 3.1 mg/dL (0.6-1.0); GFR 14.9; POTASSIUM 3.7 mmol/L (3.5-5.1)
[2017-02-09] MEDS ORDERED: LIDOCAINE 1% ID ONE (06:00)
[2017-02-09] MEDS ORDERED: SODIUM BICARBONATE ID ONE (06:00)
[2017-02-09] MEDS ORDERED: TOTAL VOLUME ID ONE (06:00)
[2017-02-09] MEDS: HEPARIN PF for SUB-Q USE 5,000 UNIT/0.5 ML VIAL. SQ SCH ×3 (06:07→21:53)
[2017-02-09] MEDS: INSULIN ASPART 300 UNITS/3 ML INSULN.PEN SQ SCH ×3 (08:00→18:05)
[2017-02-09] MEDS: GLIMEPIRIDE 2 MG TABLET. PO SCH (08:00)
[2017-02-09] MEDS: LOPERAMIDE 2 MG CAPSULE PO SCH (08:28)
[2017-02-09] MEDS: PANTOPRAZOLE 40 MG TABLET.DR. PO SCH (08:28)
[2017-02-09] MEDS: FLUCONAZOLE 100 MG TABLET. PO SCH (08:28)
[2017-02-09] MEDS: oxyCODONE/APAP 10/325 1 TAB TABLET PO PRN (08:29)
[2017-02-09] MEDS: CHOLECALCIFEROL (VITAMIN D3) 5,000 UNIT CAPSULE PO SCH (08:29)
[2017-02-09] MEDS: hydrALAZINE 25 MG TABLET PO SCH ×2 (08:30→21:00)
[2017-02-09] MEDS: CYCLOBENZAPRINE 10 MG TABLET. PO SCH ×2 (08:30→21:50)
[2017-02-09] MEDS: amLODIPine BESYLATE 10 MG TABLET PO SCH (08:30)
[2017-02-09] MEDS: ASPIRIN ENTERIC COATED 81 MG TABLET.DR. PO SCH (08:30)
[2017-02-09] MEDS: LISINOPRIL 40 MG TABLET. PO SCH (08:31)
[2017-02-09] MEDS: METOPROLOL TART IMMED RELEASE 25 MG TABLET. PO SCH ×2 (08:35→21:00)
[2017-02-09] MEDS: DICLOFENAC SODIUM 1% TOPICAL GEL 100GM TUBE. TP SCH ×2 (08:40→21:55)
[2017-02-09] MEDS: GABAPENTIN 400 MG CAPSULE. PO SCH ×2 (08:40→22:01)
[2017-02-09] MEDS: IRON SUCROSE COMPLEX 200 MG in IV NORMAL SALINE 100ML 100 ML IV SCH (09:00)
--- NOTE | 2017-02-09 09:41 | PDOC ---
PROGRESS NOTES Chief Complaint Chief Complaint 1. Acute-on chronic congestive heart failure, likely systolic versus diastolic or combined. 2. s/p RHC - 02/06/17- normal 2. Old lymphedema. 3. Obesity. 4. Diabetes type 2. Unknown Hgb A1c. WITH HYPOGLYCEMIA 6. Chronic kidney disease. 7. Anemia of chronic disease. 8. Limited mobility, wheelchair-bound. 9. R knee swelling gout, vs pseudogiout or OA with effusion s.p tap (02/08/17) 11. Diarrhea resolved History of Present Illness History of Present Illness Couple of issues: 1. Hypoglycemic again this AM - hospital dose is way lower than home dose (has been lowered multiple times already throughout her stay) 2. R knee pain persists but swelling better - dw ortho - GS and CX pending, 50cc greenish fluid 3, creatinien 3 - on lasix gtt Legs better, but crea worse NO inc in SOA VERY Weak Agreeable to SNU (initially was planned for ) PLAN: Dc glymepiride Dec levemir further down to 12 qhs BMP daily while on lasix gtt SW - SNU screen Add crytals analysis to R knee fluid SInce greenish in description, start IV rocephin for coverage, If none infectious then will dc this Vitals Vitals Vital Signs Date Time Temp Pulse Resp B/P (MAP) Pulse Ox O2 Delivery O2 Flow Rate FiO2 02/09/17 08:35 90 128/72 02/09/17 08:29 Nasal Cannula 2.0 02/09/17 07:00 97.5 22 96 97.5 Physical Exam General: Alert, Oriented X3, Cooperative, No acute distress Heart: Regular rate, Normal S1, Normal S2 Lungs: Clear, Other (no wheezing) Abdomen: Normal bowel sounds, Soft, No tenderness Extremities: Normal pulses, Other (+2 -3 edema, + right femoral pulse, no hematoma, bleeding or bruit, +2 distal pulse. ; Rt knee swelling and pain, limited rOM but no erythema) Skin: No significant lesion Labs LABS Laboratory Tests Test 02/08/17 11:57 02/08/17 15:10 02/08/17 16:00 02/08/17 17:32 Glucose (Fingerstick) 87 mg/dL (70-99) 97 mg/dL (70-99) Body Fluid Source Synovial Body Fluid Color Yellow Body Fluid Clarity Cloudy Body Fluid Nucleated Cells 52930 /cmm Body Fluid Mononuclear WBCs (%) 6 % Body Fluid Polymorphonuclear Cells 94 % Body Fluid Total RBCs Counted 115 /cmm Body Fluid Other Cells (%) 0 % O2 Saturation 85 % (92-99) Arterial Blood pH 7.44 (7.35-7.45) Arterial Blood pCO2 at Patient Temp 35 mmHg (35-46) Arterial Blood pO2 at Patient Temp 48 mmHg (65-108) Arterial Blood HCO3 23 mmol/L (21-28) Arterial Blood Base Excess 0 mmol/L (-3-3) FiO2 21 Test 02/08/17 17:54 02/08/17 21:11 02/09/17 03:15 02/09/17 08:19 Urine Collection Type Unknown Urine Color Yellow Urine Clarity Clear Urine pH 6.0 Urine Specific [place] <=1.005 Urine Protein 100 mg/dL (NEG-TRACE) Urine Glucose (UA) Negative mg/dL (NEG) Urine Ketones (Stick) Negative mg/dL (NEG) Urine Blood Trace (NEG) Urine Nitrite Negative (NEG) Urine Bilirubin Negative (NEG) Urine Urobilinogen Dipstick 1.0 mg/dL (0.2 mg/dL) Urine Leukocyte Esterase Small (NEG) Urine RBC Occ /HPF (0-2) Urine WBC 5-10 /HPF (0-4) Urine Squamous Epithelial Cells Few /LPF Urine Bacteria Many /HPF (0-FEW) Urine Mucus Slight /LPF Glucose (Fingerstick) 132 mg/dL (70-99) 67 mg/dL (70-99) White Blood Count 9.7 x10^3/uL (4.0-11.0) Red Blood Count 3.31 x10^6/uL (3.50-5.40) Hemoglobin 9.5 g/dL (12.0-15.5) Hematocrit 29.1 % (36.0-47.0) Mean Corpuscular Volume 88 fL (79-100) Mean Corpuscular Hemoglobin 29 pg (25-35) Mean Corpuscular Hemoglobin Concent 33 g/dL (31-37) Red Cell Distribution Width 15.5 % (11.5-14.5) Platelet Count 124 x10^3/uL (140-400) Neutrophils (%) (Auto) 68 % (31-73) Lymphocytes (%) (Auto) 19 % (24-48) Monocytes (%) (Auto) 12 % (0-9) Eosinophils (%) (Auto) 0 % (0-3) Basophils (%) (Auto) 0 % (0-3) Neutrophils # (Auto) 6.6 x10^3uL (1.8-7.7) Lymphocytes # (Auto) 1.9 x10^3/uL (1.0-4.8) Monocytes # (Auto) 1.2 x10^3/uL (0.0-1.1) Eosinophils # (Auto) 0.0 x10^3/uL (0.0-0.7) Basophils # (Auto) 0.0 x10^3/uL (0.0-0.2) Sodium Level 144 mmol/L (136-145) Potassium Level 3.7 mmol/L (3.5-5.1) Chloride Level 106 mmol/L (98-107) Carbon Dioxide Level 29 mmol/L (21-32) Anion Gap 9 (6-14) Blood Urea Nitrogen 48 mg/dL (7-20) Creatinine 3.1 mg/dL (0.6-1.0) Estimated GFR (Cockcroft-Gault) 14.9 Glucose Level 86 mg/dL (70-99) Calcium Level 8.3 mg/dL (8.5-10.1) Phosphorus Level 5.0 mg/dL (2.6-4.7) Magnesium Level 1.6 mg/dL (1.8-2.4) Albumin 1.9 g/dL (3.4-5.0) Review of Systems Review of Systems weak, R knee pain, no inc in soa or cp, constipated now Comment Review of Relevant I have reviewed the following items kai (where applicable) has been applied. Labs Laboratory Tests Test 02/07/17 11:36 02/07/17 14:10 02/07/17 16:37 02/07/17 21:37 Glucose (Fingerstick) 73 mg/dL (70-99) 97 mg/dL (70-99) 49 mg/dL (70-99) Erythrocyte Sedimentation Rate 46 (0-25) Uric Acid 11.9 mg/dL (2.6-6.0) Test 02/07/17 21:57 02/08/17 05:50 02/08/17 07:59 02/08/17 11:57 Glucose (Fingerstick) 124 mg/dL (70-99) 84 mg/dL (70-99) 87 mg/dL (70-99) White Blood Count 9.4 x10^3/uL (4.0-11.0) Red Blood Count 3.94 x10^6/uL (3.50-5.40) Hemoglobin 11.3 g/dL (12.0-15.5) Hematocrit 34.3 % (36.0-47.0) Mean Corpuscular Volume 87 fL (79-100) Mean Corpuscular Hemoglobin 29 pg (25-35) Mean Corpuscular Hemoglobin Concent 33 g/dL (31-37) Red Cell Distribution Width 16.2 % (11.5-14.5) Platelet Count 143 x10^3/uL (140-400) Neutrophils (%) (Auto) 73 % (31-73) Lymphocytes (%) (Auto) 16 % (24-48) Monocytes (%) (Auto) 11 % (0-9) Eosinophils (%) (Auto) 1 % (0-3) Basophils (%) (Auto) 0 % (0-3) Neutrophils # (Auto) 6.8 x10^3uL (1.8-7.7) Lymphocytes # (Auto) 1.5 x10^3/uL (1.0-4.8) Monocytes # (Auto) 1.0 x10^3/uL (0.0-1.1) Eosinophils # (Auto) 0.1 x10^3/uL (0.0-0.7) Basophils # (Auto) 0.0 x10^3/uL (0.0-0.2) Sodium Level 141 mmol/L (136-145) Potassium Level 4.1 mmol/L (3.5-5.1) Chloride Level 106 mmol/L (98-107) Carbon Dioxide Level 26 mmol/L (21-32) Anion Gap 9 (6-14) Blood Urea Nitrogen 49 mg/dL (7-20) Creatinine 2.8 mg/dL (0.6-1.0) Estimated GFR (Cockcroft-Gault) 16.8 Glucose Level 84 mg/dL (70-99) Calcium Level 8.7 mg/dL (8.5-10.1) Phosphorus Level 4.1 mg/dL (2.6-4.7) Magnesium Level 1.9 mg/dL (1.8-2.4) Albumin 2.5 g/dL (3.4-5.0) Test 02/08/17 15:10 02/08/17 16:00 02/08/17 17:32 02/08/17 17:54 Body Fluid Source Synovial Body Fluid Color Yellow Body Fluid Clarity Cloudy Body Fluid Nucleated Cells 78397 /cmm Body Fluid Mononuclear WBCs (%) 6 % Body Fluid Polymorphonuclear Cells 94 % Body Fluid Total RBCs Counted 115 /cmm Body Fluid Other Cells (%) 0 % O2 Saturation 85 % (92-99) Arterial Blood pH 7.44 (7.35-7.45) Arterial Blood pCO2 at Patient Temp 35 mmHg (35-46) Arterial Blood pO2 at Patient Temp 48 mmHg (65-108) Arterial Blood HCO3 23 mmol/L (21-28) Arterial Blood Base Excess 0 mmol/L (-3-3) FiO2 21 Glucose (Fingerstick) 97 mg/dL (70-99) Urine Collection Type Unknown Urine Color Yellow Urine Clarity Clear Urine pH 6.0 Urine Specific [place] <=1.005 Urine Protein 100 mg/dL (NEG-TRACE) Urine Glucose (UA) Negative mg/dL (NEG) Urine Ketones (Stick) Negative mg/dL (NEG) Urine Blood Trace (NEG) Urine Nitrite Negative (NEG) Urine Bilirubin Negative (NEG) Urine Urobilinogen Dipstick 1.0 mg/dL (0.2 mg/dL) Urine Leukocyte Esterase Small (NEG) Urine RBC Occ /HPF (0-2) Urine WBC 5-10 /HPF (0-4) Urine Squamous Epithelial Cells Few /LPF Urine Bacteria Many /HPF (0-FEW) Urine Mucus Slight /LPF Test 02/08/17 21:11 02/09/17 03:15 02/09/17 08:19 Glucose (Fingerstick) 132 mg/dL (70-99) 67 mg/dL (70-99) White Blood Count 9.7 x10^3/uL (4.0-11.0) Red Blood Count 3.31 x10^6/uL (3.50-5.40) Hemoglobin 9.5 g/dL (12.0-15.5) Hematocrit 29.1 % (36.0-47.0) Mean Corpuscular Volume 88 fL (79-100) Mean Corpuscular Hemoglobin 29 pg (25-35) Mean Corpuscular Hemoglobin Concent 33 g/dL (31-37) Red Cell Distribution Width 15.5 % (11.5-14.5) Platelet Count 124 x10^3/uL (140-400) Neutrophils (%) (Auto) 68 % (31-73) Lymphocytes (%) (Auto) 19 % (24-48) Monocytes (%) (Auto) 12 % (0-9) Eosinophils (%) (Auto) 0 % (0-3) Basophils (%) (Auto) 0 % (0-3) Neutrophils # (Auto) 6.6 x10^3uL (1.8-7.7) Lymphocytes # (Auto) 1.9 x10^3/uL (1.0-4.8) Monocytes # (Auto) 1.2 x10^3/uL (0.0-1.1) Eosinophils # (Auto) 0.0 x10^3/uL (0.0-0.7) Basophils # (Auto) 0.0 x10^3/uL (0.0-0.2) Sodium Level 144 mmol/L (136-145) Potassium Level 3.7 mmol/L (3.5-5.1) Chloride Level 106 mmol/L (98-107) Carbon Dioxide Level 29 mmol/L (21-32) Anion Gap 9 (6-14) Blood Urea Nitrogen 48 mg/dL (7-20) Creatinine 3.1 mg/dL (0.6-1.0) Estimated GFR (Cockcroft-Gault) 14.9 Glucose Level 86 mg/dL (70-99) Calcium Level 8.3 mg/dL (8.5-10.1) Phosphorus Level 5.0 mg/dL (2.6-4.7) Magnesium Level 1.6 mg/dL (1.8-2.4) Albumin 1.9 g/dL (3.4-5.0) Laboratory Tests Test 02/08/17 11:57 02/08/17 15:10 02/08/17 16:00 02/08/17 17:32 Glucose (Fingerstick) 87 mg/dL (70-99) 97 mg/dL (70-99) Body Fluid Source Synovial Body Fluid Color Yellow Body Fluid Clarity Cloudy Body Fluid Nucleated Cells 45660 /cmm Body Fluid Mononuclear WBCs (%) 6 % Body Fluid Polymorphonuclear Cells 94 % Body Fluid Total RBCs Counted 115 /cmm Body Fluid Other Cells (%) 0 % O2 Saturation 85 % (92-99) Arterial Blood pH 7.44 (7.35-7.45) Arterial Blood pCO2 at Patient Temp 35 mmHg (35-46) Arterial Blood pO2 at Patient Temp 48 mmHg (65-108) Arterial Blood HCO3 23 mmol/L (21-28) Arterial Blood Base Excess 0 mmol/L (-3-3) FiO2 21 Test 02/08/17 17:54 02/08/17 21:11 02/09/17 03:15 02/09/17 08:19 Urine Collection Type Unknown Urine Color Yellow Urine Clarity Clear Urine pH 6.0 Urine Specific [place] <=1.005 Urine Protein 100 mg/dL (NEG-TRACE) Urine Glucose (UA) Negative mg/dL (NEG) Urine Ketones (Stick) Negative mg/dL (NEG) Urine Blood Trace (NEG) Urine Nitrite Negative (NEG) Urine Bilirubin Negative (NEG) Urine Urobilinogen Dipstick 1.0 mg/dL (0.2 mg/dL) Urine Leukocyte Esterase Small (NEG) Urine RBC Occ /HPF (0-2) Urine WBC 5-10 /HPF (0-4) Urine Squamous Epithelial Cells Few /LPF Urine Bacteria Many /HPF (0-FEW) Urine Mucus Slight /LPF Glucose (Fingerstick) 132 mg/dL (70-99) 67 mg/dL (70-99) White Blood Count 9.7 x10^3/uL (4.0-11.0) Red Blood Count 3.31 x10^6/uL (3.50-5.40) Hemoglobin 9.5 g/dL (12.0-15.5) Hematocrit 29.1 % (36.0-47.0) Mean Corpuscular Volume 88 fL (79-100) Mean Corpuscular Hemoglobin 29 pg (25-35) Mean Corpuscular Hemoglobin Concent 33 g/dL (31-37) Red Cell Distribution Width 15.5 % (11.5-14.5) Platelet Count 124 x10^3/uL (140-400) Neutrophils (%) (Auto) 68 % (31-73) Lymphocytes (%) (Auto) 19 % (24-48) Monocytes (%) (Auto) 12 % (0-9) Eosinophils (%) (Auto) 0 % (0-3) Basophils (%) (Auto) 0 % (0-3) Neutrophils # (Auto) 6.6 x10^3uL (1.8-7.7) Lymphocytes # (Auto) 1.9 x10^3/uL (1.0-4.8) Monocytes # (Auto) 1.2 x10^3/uL (0.0-1.1) Eosinophils # (Auto) 0.0 x10^3/uL (0.0-0.7) Basophils # (Auto) 0.0 x10^3/uL (0.0-0.2) Sodium Level 144 mmol/L (136-145) Potassium Level 3.7 mmol/L (3.5-5.1) Chloride Level 106 mmol/L (98-107) Carbon Dioxide Level 29 mmol/L (21-32) Anion Gap 9 (6-14) Blood Urea Nitrogen 48 mg/dL (7-20) Creatinine 3.1 mg/dL (0.6-1.0) Estimated GFR (Cockcroft-Gault) 14.9 Glucose Level 86 mg/dL (70-99) Calcium Level 8.3 mg/dL (8.5-10.1) Phosphorus Level 5.0 mg/dL (2.6-4.7) Magnesium Level 1.6 mg/dL (1.8-2.4) Albumin 1.9 g/dL (3.4-5.0) Medications Current Medications Zolpidem Tartrate (Ambien) 5 mg PRN QHS PRN PO INSOMNIA, MAY REPEAT IN 1HR; Start 01/29/17 at 18:45 Oxycodone HCl (Roxicodone) 5 mg PRN Q3HRS PRN PO BREAKTHROUGH PAIN Last administered on 02/08/17 09:18; Start 01/29/17 at 18:45 Acetaminophen (Tylenol) 650 mg PRN Q6HRS PRN PO Headaches, Temp > 101.5F Last administered on 02/08/17 21:24; Start 01/29/17 at 18:45 Ibuprofen (Motrin) 400 mg PRN Q6HRS PRN PO MILD PAIN; Start 01/29/17 at 18:45; Stop 02/05/17 at 09:24; Status DC Docusate Sodium (Colace) 100 mg BID PO Last administered on 02/01/17 08:42; Start 01/29/17 at 21:00; Stop 02/02/17 at 11:08; Status DC Magnesium Hydroxide (Milk Of Magnesia) 2,400 mg PRN Q12HR PRN PO CONSTIPATION; Start 01/29/17 at 18:45 Lactulose 20 gm PRN Q12HR PRN PO CONSTIPATION; Start 01/29/17 at 18:45 Bisacodyl (Dulcolax Supp) 10 mg PRN DAILY PRN LA CONSTIPATION; Start 01/29/17 at 18:45; Stop 02/02/17 at 11:08; Status DC Enoxaparin Sodium (Lovenox 40mg Syringe) 40 mg Q12HR SQ Last administered on 21:09; Start 01/29/17 at 22:00; Stop 01/31/17 at 07:12; Status DC Alprazolam (Xanax) 0.25 mg QHS PRN PO ANXIETY / AGITATION Last administered on 02/06/17 20:50; Start 01/29/17 at 18:45 Carvedilol (Coreg) 12.5 mg BIDWMEALS PO Last administered on 01/29/17 21:51; Start 01/29/17 at 19:00; Stop 01/30/17 at 11:28; Status DC Cyclobenzaprine HCl (Flexeril) 10 mg BID PO Last administered on 02/09/17 08:30 ; Start 01/29/17 at 21:00 Fluconazole (Diflucan) 100 mg DAILY PO Last administered on 02/09/17 08:28; Start 01/30/17 at 09:00 Furosemide (Lasix) 40 mg BID92 PO ; Start 01/30/17 at 09:00; Stop 01/30/17 at 09 :00; Status DC Hydralazine HCl (Apresoline) 25 mg BID PO Last administered on 02/09/17 08:30; Start 01/29/17 at 21:00 Acetaminophen/ Hydrocodone Bitart (Lortab 5/325) 1 tab PRN Q6HRS PRN PO MILD PAIN Last administered on 01/29/17 22:31; Start 01/29/17 at 18:45 Lisinopril (Prinivil) 40 mg DAILY PO Last administered on 02/09/17 08:31; Start 01/30/17 at 09:00 Oxycodone/ Acetaminophen (Percocet 10/325) 1 tab PRN Q6HRS PRN PO MODERATE- SEVERE PAIN Last administered on 02/09/17 08:29; Start 01/29/17 at 18:45 Tramadol HCl (Ultram) 100 mg BID PO Last administered on 01/29/17 21:50; Start 01/29/17 at 21:00; Stop 01/30/17 at 11:51; Status DC Vitamin D (Vitamin D3) 5,000 unit DAILY PO Last administered on 02/09/17 08:29 ; Start 01/30/17 at 09:00 Gabapentin (Neurontin) 300 mg PRN DAILY PRN PO NERVE PAIN Last administered on 02/08/17 19:38; Start 01/29/17 at 21:00 Glimepiride (Amaryl) 4 mg BIDWMEALS PO Last administered on 02/08/17 09:10; Start 01/30/17 at 09:00; Stop 02/09/17 at 09:09; Status DC Insulin Detemir (Levemir) 40 units QHS SQ Last administered on 01/29/17 22:01 ; Start 01/29/17 at 21:00; Stop 01/30/17 at 11:51; Status DC Insulin Aspart (NovoLOG) 50 units TIDAC SQ Last administered on 01/29/17 22:00 ; Start 01/29/17 at 19:00; Stop 01/30/17 at 11:51; Status DC Non-Formulary Medication 1.2 mg DAILY SQ ; Start 01/30/17 at 09:00; Stop at 09:00; Status DC Pantoprazole Sodium (Protonix) 40 mg DAILYAC PO Last administered on 02/09/17 08:28; Start 01/30/17 at 07:30 Potassium Chloride (Klor-Con) 10 meq DAILYWBKFT PO Last administered on 08:59; Start 01/30/17 at 08:00; Stop 02/05/17 at 09:21; Status DC Insulin Aspart (NovoLOG) 0-9 UNITS TIDWMEALS SQ Last administered on 02/02/17 17:29; Start 01/30/17 at 08:00 Dextrose (Dextrose 50%-Water Syringe) 12.5 gm PRN Q15MIN PRN IV SEE COMMENTS; Start 01/29/17 at 18:45 Furosemide (Lasix) 40 mg 1X ONCE IVP Last administered on 01/29/17 21:52; Start 01/29/17 at 21:00; Stop 01/29/17 at 21:01; Status DC Furosemide (Lasix) 40 mg BID92 IVP Last administered on 01/30/17 11:01; Start 01/30/17 at 09:00; Stop 01/30/17 at 11:28; Status DC Lidocaine HCl (Xylocaine-Mpf 1% Vial) 2 ml STK-MED ONCE .ROUTE ; Start 01/29/17 at 20:37; Stop 01/29/17 at 20:38; Status DC Dextrose 250 ml @ 1,000 mls/hr 1X ONCE IV ; Start 01/30/17 at 07:45; Stop at 07:59; Status DC Glucose (Insta-Glucose) 15 gm PRN Q15MIN PRN PO LOW BLOOD SUGAR Last administered on 01/30/17 07:55; Start 01/30/17 at 08:00 Glucose (Insta-Glucose) 15 gm STK-MED ONCE .ROUTE ; Start 01/30/17 at 07:52; Stop 01/30/17 at 07:53; Status DC Lidocaine HCl (Xylocaine-Mpf 1% Vial) 2 ml STK-MED ONCE .ROUTE ; Start 01/29/17 at 21:00; Stop 01/30/17 at 09:01; Status DC Furosemide (Lasix) 40 mg DAILY IVP Last administered on 02/03/17 08:39; Start 01/31/17 at 09:00; Stop 02/03/17 at 15:50; Status DC Aspirin (Ecotrin) 81 mg DAILYWBKFT PO Last administered on 02/09/17 08:30; Start 01/30/17 at 12:30 Insulin Detemir (Levemir) 25 units QHS SQ Last administered on 02/02/17 20:54 ; Start 01/30/17 at 21:00; Stop 02/03/17 at 11:09; Status DC Gabapentin (Neurontin) 400 mg BID PO Last administered on 02/09/17 08:40; Start 01/31/17 at 09:00 Gabapentin (Neurontin) 100 mg 1X ONCE PO Last administered on 01/31/17 01:56 ; Start 01/31/17 at 02:00; Stop 01/31/17 at 02:01; Status DC Enoxaparin Sodium (Lovenox 40mg Syringe) 40 mg QHS SQ Last administered on 02/03 20:32; Start 01/31/17 at 21:00; Stop 02/04/17 at 09:32; Status DC Methylprednisolone Acetate (DEPO-Medrol 40MG VIAL) 40 mg 1X ONCE IM Last administered on 02/01/17 13:30; Start 02/01/17 at 13:30; Stop 02/01/17 at 13:31 ; Status DC Lidocaine/Sodium Bicarbonate (Buffered Lidocaine 1%) 20 ml 1X ONCE IJ Last administered on 02/01/17 13:30; Start 02/01/17 at 13:30; Stop 02/01/17 at 13:31 ; Status DC Labetalol HCl (Normodyne) 20 mg PRN Q2HR PRN IVP HYPERTENSION, SEE COMMENTS Last administered on 02/01/17 23:59; Start 02/01/17 at 23:30; Stop 02/03/17 at 15:47; Status DC Insulin Aspart (NovoLOG) 10 units TIDAC SQ Last administered on 02/06/17 07:30 ; Start 02/02/17 at 11:30; Stop 02/07/17 at 13:06; Status DC Insulin Aspart (NovoLOG VIAL) 15 unit 1X ONCE SQ ; Start 02/02/17 at 08:45; Stop 02/02/17 at 08:46; Status Cancel Insulin Aspart (NovoLOG) 15 units 1X ONCE SQ Last administered on 02/02/17 08 :42; Start 02/02/17 at 08:45; Stop 02/02/17 at 08:46; Status DC Loperamide HCl (Imodium) 2 mg PRN Q15MIN PRN PO DIARRHEA Last administered on 09:43; Start 02/02/17 at 11:15; Stop 02/03/17 at 12:31; Status DC Loperamide HCl (Imodium) 2 mg PRN Q15MIN PRN PO DIARRHEA Last administered on 01:35; Start 02/02/17 at 12:45; Stop 02/04/17 at 14:00; Status DC Insulin Detemir (Levemir) 35 units QHS SQ Last administered on 02/06/17 20:58; Start 02/03/17 at 21:00; Stop 02/07/17 at 13:06; Status DC Metoprolol Tartrate (Lopressor) 12.5 mg BID PO Last administered on 02/09/17 08 :35; Start 02/03/17 at 21:00 Furosemide (Lasix) 60 mg DAILY PO Last administered on 02/04/17 08:57; Start 02/04/17 at 09:00; Stop 02/04/17 at 14:34; Status DC Heparin Sodium (Porcine) (Heparin Sq) 5,000 unit Q8HRS SQ Last administered on 02/09/17 06:07; Start 02/04/17 at 14:00 Loperamide HCl (Imodium) 2 mg TID PO Last administered on 02/07/17 20:32; Start 02/04/17 at 14:00 Magnesium Sulfate/ Dextrose 50 ml @ 25 mls/hr PRN DAILY PRN IV for Mag < 1.7 on am labs; Start 02/04/17 at 14:30; Stop 02/05/17 at 10:05; Status DC Furosemide 100 mg/ Sodium Chloride 100 ml @ 0 mls/hr CONT PRN IV SEE I/O RECORD Last administered on 02/04/17 15:59; Start 02/04/17 at 14:30; Stop at 09:27; Status DC Acetylcysteine (Mucomyst 20% Oral Solution) 1,200 mg BID PO Last administered on 02/06/17 20:49; Start 02/05/17 at 09:00; Stop 02/07/17 at 08:59; Status DC Sodium Polystyrene Sulfonate (Kayexalate) 30 gm 1X ONCE PO Last administered on 02/06/17 09:49; Start 02/06/17 at 09:30; Stop 02/06/17 at 09:31; Status DC Dextrose 10 ml 1X ONCE IV Last administered on 02/06/17 09:56; Start 02/06/17 at 09:30; Stop 02/06/17 at 09:31; Status DC Insulin Human Regular (NovoLIN R VIAL) 10 unit 1X ONCE IV Last administered on 02/06/17 09:59; Start 02/06/17 at 09:30; Stop 02/06/17 at 09:31; Status DC Heparin Sodium/ Sodium Chloride 500 ml @ As Directed STK-MED ONCE .ROUTE ; Start 02/06/17 at 10:10; Stop 02/06/17 at 10:11; Status DC Lidocaine HCl 20 ml STK-MED ONCE .ROUTE ; Start 02/06/17 at 10:10; Stop 02/06/17 at 10:11; Status DC Fentanyl Citrate (Fentanyl 2ml Vial) 100 mcg STK-MED ONCE .ROUTE ; Start at 10:39; Stop 02/06/17 at 10:40; Status DC Midazolam HCl (Versed) 2 mg STK-MED ONCE .ROUTE ; Start 02/06/17 at 10:39; Stop 02/06/17 at 10:40; Status DC Heparin Sodium/ Sodium Chloride 1,000 unit 1X ONCE IART Last administered on 11:10; Start 02/06/17 at 11:15; Stop 02/06/17 at 11:16; Status DC Midazolam HCl (Versed) 1 mg 1X ONCE IV Last administered on 02/06/17 11:11; Start 02/06/17 at 11:15; Stop 02/06/17 at 11:16; Status DC Fentanyl Citrate (Fentanyl 2ml Vial) 50 mcg 1X ONCE IV Last administered on 11:11; Start 02/06/17 at 11:15; Stop 02/06/17 at 11:16; Status DC Lidocaine HCl 20 ml 1X ONCE IJ Last administered on 02/06/17 11:10; Start 02/06 at 11:15; Stop 02/06/17 at 11:16; Status DC Sodium Chloride (Normal Saline Flush) 3 ml QSHIFT PRN IV AFTER MEDS AND BLOOD DRAWS; Start 02/06/17 at 11:15 Nitroglycerin (Nitrostat) 0.4 mg PRN Q5MIN PRN SL CHEST PAIN; Start 02/06/17 at 11:15 Iron Sucrose 200 mg/Sodium Chloride 110 ml @ 55 mls/hr 3X/WEEK IV Last administered on 02/06/17 16:30; Start 02/06/17 at 13:00; Stop 02/16/17 at 10:59 Furosemide 100 mg/ Sodium Chloride 100 ml @ 0 mls/hr CONT PRN IV SEE I/O RECORD Last administered on 02/08/17 15:44; Start 02/06/17 at 13:30 Insulin Detemir (Levemir) 20 units QHS SQ ; Start 02/07/17 at 21:00; Stop at 09:08; Status DC Furosemide (Lasix) 20 mg 1X ONCE IVP ; Start 02/07/17 at 13:30; Stop 02/07/17 at 13:31; Status Cancel Diclofenac Sodium (Voltaren) 1 katia BID TP Last administered on 02/09/17 08:40; Start 02/08/17 at 13:30 Lidocaine HCl 16 ml/Sodium Bicarbonate 4 meq/ Miscellaneous 20 ml @ 20 mls/hr 1X ONCE ID ; Start 02/09/17 at 06:00; Stop 02/09/17 at 06:59; Status UNV Lidocaine HCl 10 ml 1X ONCE INJ Last administered on 02/08/17 15:44; Start 02/08/17 at 14:00; Stop 02/08/17 at 14:01; Status DC Amlodipine Besylate (Norvasc) 10 mg DAILY PO Last administered on 02/09/17 08: 30; Start 02/09/17 at 09:00 Amlodipine Besylate (Norvasc) 10 mg 1X ONCE PO Last administered on 02/08/17 15:43; Start 02/08/17 at 16:00; Stop 02/08/17 at 16:01; Status DC Insulin Detemir (Levemir) 12 units QHS SQ ; Start 02/09/17 at 21:00 Active Scripts Active Xanax (Alprazolam) 0.25 Mg Tablet 0.25 Mg PO QHS PRN Oxycodone-Acetaminophen 10-325 (Oxycodone Hcl/Acetaminophen) 1 Each Tablet 1 Tab PO PRN Q6HRS PRN Hydralazine Hcl 25 Mg Tablet 25 Mg PO BID Carvedilol 12.5 Mg Tablet 12.5 Mg PO BIDWMEALS Fluconazole 100 Mg Tablet 1 Tab PO DAILY Lasix (Furosemide) 40 Mg Tablet 40 Mg PO BID Reported Lisinopril 40 Mg Tablet 1 Tab PO DAILY Humalog (Insulin Lispro) 100 Unit/1 Ml Vial 50 Unit SQ TID Lortab 5-325 mg Tablet (Hydrocodone/Acetaminophen) 1 Each Tablet 1 Tab PO PRN Q6HRS PRN Levemir (Insulin Detemir) 100 Unit/1 Ml Vial 40 Unit SQ HS Victoza 3-Devon (Liraglutide) 0.6 Mg/0.1 Ml Pen.injctr 1.2 Mg SQ DAILY Gabapentin 300 Mg Capsule 1 Cap PO DAILY PRN Vitamin D3 (Cholecalciferol (Vitamin D3)) 5,000 Unit Tablet 1 Tab PO DAILY Glimepiride 4 Mg Tablet 1 Tab PO BID Tramadol Hcl 50 Mg Tablet 2 Tab PO BID Cyclobenzaprine Hcl 10 Mg Tablet 1 Tab PO BID Klor-Con 10 (Potassium Chloride) 10 Meq Tablet.er 1 Tab PO DAILY Omeprazole 20 Mg Capsule.dr 1 Cap PO DAILY Vitals/I & O Vital Sign - Last 24 Hours 02/08/17 02/08/17 02/08/17 02/08/17 11:00 15:00 15:43 19:05 Temp 99.7 99.5 100.2 99.7 99.5 100.2 Pulse 105 104 104 113 Resp 22 20 18 B/P (MAP) 160/83 (108) 186/94 (124) 186/94 104/54 (71) Pulse Ox 92 90 96 O2 Delivery Room Air Room Air Nasal Cannula O2 Flow Rate 2.0 02/08/17 02/08/17 02/08/17 02/08/17 19:39 20:00 21:21 21:23 Pulse 113 113 Resp 20 B/P (MAP) 104/54 104/54 O2 Delivery Nasal Cannula Nasal Cannula O2 Flow Rate 2.0 2.0 02/08/17 02/09/17 02/09/17 02/09/17 23:25 03:10 07:00 08:29 Temp 98.6 98.8 97.5 98.6 98.8 97.5 Pulse 98 78 80 Resp 18 16 22 B/P (MAP) 109/60 (76) 94/55 (68) 128/72 (90) Pulse Ox 97 96 96 O2 Delivery Nasal Cannula Nasal Cannula Room Air Nasal Cannula O2 Flow Rate 2.0 2.0 2.0 02/09/17 02/09/17 02/09/17 02/09/17 08:30 08:30 08:31 08:35 Pulse 90 90 90 90 B/P (MAP) 128/72 128/72 128/72 128/72 Intake and Output 02/08/17 02/08/17 02/09/17 14:59 22:59 06:59 Intake Total 240 ml Output Total 4250 ml 1950 ml Balance -4010 ml -1950 ml DHRUV LACEY MD Feb 09, 2017 09:41
--- NOTE | 2017-02-09 10:52 | PDOC ---
Subjective: Subjective: "I'm not as perky as I should be." Can't remember when last stooled. Eating okay today. Objective: Objective: Per RN - knee pain is biggest problem, no diarrhea. Reviewed other notes. Vital Signs: Vital Signs Date Time Temp Pulse Resp B/P (MAP) Pulse Ox O2 Delivery O2 Flow Rate FiO2 02/09/17 10:25 97.6 73 20 116/53 (74) 99 Nasal Cannula 97.6 02/09/17 08:29 2.0 Labs: Laboratory Tests Test 02/08/17 11:57 02/08/17 17:32 02/08/17 21:11 02/09/17 08:19 Glucose (Fingerstick) 87 mg/dL (70-99) 97 mg/dL (70-99) 132 mg/dL (70-99) 67 mg/dL (70-99) Test 02/09/17 09:51 Glucose (Fingerstick) 169 mg/dL (70-99) PE: GEN: NAD, sitting up in bed LUNGS: CTAB HEART: RRR ABD: NABS, S/ND/NT, obese NEURO/PSYCH: A & O 3 but drifts in and out of sleep A/P: CHF, CKD, right knee pain Diarrhea - resolved -h/o ?FAP, s/p colectomy, h/o rectal adenoma in 2014 S/p Serafin shunt, staple line broken down on EGD in 2014 -on PPI Anemia -on IV iron -- Diarrhea resolved - will change Imodium back to PRN. ANALI JOHNSON Feb 09, 2017 10:52
--- NOTE | 2017-02-09 13:47 | PDOC ---
OPALAPARNA Sae [employer] 02/09/17 1347: CARDIO Progress Notes Date and Time Date of Service 02/09/2017 Time of Evaluation 1345 Subjective Subjective: No Chest Pain, No Palpitations, Other (RYAN) Vitals Vitals Vital Signs Date Time Temp Pulse Resp B/P (MAP) Pulse Ox O2 Delivery O2 Flow Rate FiO2 02/09/17 10:25 97.6 73 20 116/53 (74) 99 Nasal Cannula 97.6 02/09/17 09:30 2.0 Weight Weight [ ] Input and Output Intake and Output Intake and Output 02/09/17 06:59 Intake Total 240 ml Output Total 6200 ml Balance -5960 ml Intake Oral 240 ml Output Urine Total 6200 ml Laboratory Labs Laboratory Tests Test 02/08/17 15:10 02/08/17 16:00 02/08/17 17:32 02/08/17 17:54 Body Fluid Source Synovial Body Fluid Color Yellow Body Fluid Clarity Cloudy Body Fluid Nucleated Cells 48812 /cmm Body Fluid Mononuclear WBCs (%) 6 % Body Fluid Polymorphonuclear Cells 94 % Body Fluid Total RBCs Counted 115 /cmm Body Fluid Other Cells (%) 0 % O2 Saturation 85 % (92-99) Arterial Blood pH 7.44 (7.35-7.45) Arterial Blood pCO2 at Patient Temp 35 mmHg (35-46) Arterial Blood pO2 at Patient Temp 48 mmHg (65-108) Arterial Blood HCO3 23 mmol/L (21-28) Arterial Blood Base Excess 0 mmol/L (-3-3) FiO2 21 Glucose (Fingerstick) 97 mg/dL (70-99) Urine Collection Type Unknown Urine Color Yellow Urine Clarity Clear Urine pH 6.0 Urine Specific [place] <=1.005 Urine Protein 100 mg/dL (NEG-TRACE) Urine Glucose (UA) Negative mg/dL (NEG) Urine Ketones (Stick) Negative mg/dL (NEG) Urine Blood Trace (NEG) Urine Nitrite Negative (NEG) Urine Bilirubin Negative (NEG) Urine Urobilinogen Dipstick 1.0 mg/dL (0.2 mg/dL) Urine Leukocyte Esterase Small (NEG) Urine RBC Occ /HPF (0-2) Urine WBC 5-10 /HPF (0-4) Urine Squamous Epithelial Cells Few /LPF Urine Bacteria Many /HPF (0-FEW) Urine Mucus Slight /LPF Test 02/08/17 21:11 02/09/17 03:15 02/09/17 08:19 02/09/17 09:51 Glucose (Fingerstick) 132 mg/dL (70-99) 67 mg/dL (70-99) 169 mg/dL (70-99) White Blood Count 9.7 x10^3/uL (4.0-11.0) Red Blood Count 3.31 x10^6/uL (3.50-5.40) Hemoglobin 9.5 g/dL (12.0-15.5) Hematocrit 29.1 % (36.0-47.0) Mean Corpuscular Volume 88 fL (79-100) Mean Corpuscular Hemoglobin 29 pg (25-35) Mean Corpuscular Hemoglobin Concent 33 g/dL (31-37) Red Cell Distribution Width 15.5 % (11.5-14.5) Platelet Count 124 x10^3/uL (140-400) Neutrophils (%) (Auto) 68 % (31-73) Lymphocytes (%) (Auto) 19 % (24-48) Monocytes (%) (Auto) 12 % (0-9) Eosinophils (%) (Auto) 0 % (0-3) Basophils (%) (Auto) 0 % (0-3) Neutrophils # (Auto) 6.6 x10^3uL (1.8-7.7) Lymphocytes # (Auto) 1.9 x10^3/uL (1.0-4.8) Monocytes # (Auto) 1.2 x10^3/uL (0.0-1.1) Eosinophils # (Auto) 0.0 x10^3/uL (0.0-0.7) Basophils # (Auto) 0.0 x10^3/uL (0.0-0.2) Sodium Level 144 mmol/L (136-145) Potassium Level 3.7 mmol/L (3.5-5.1) Chloride Level 106 mmol/L (98-107) Carbon Dioxide Level 29 mmol/L (21-32) Anion Gap 9 (6-14) Blood Urea Nitrogen 48 mg/dL (7-20) Creatinine 3.1 mg/dL (0.6-1.0) Estimated GFR (Cockcroft-Gault) 14.9 Glucose Level 86 mg/dL (70-99) Calcium Level 8.3 mg/dL (8.5-10.1) Phosphorus Level 5.0 mg/dL (2.6-4.7) Magnesium Level 1.6 mg/dL (1.8-2.4) Albumin 1.9 g/dL (3.4-5.0) Test 02/09/17 11:38 Glucose (Fingerstick) 174 mg/dL (70-99) Microbiology Micro Microbiology 02/08/17 Gram Stain - Final, Complete Physical Exam HEENT: Neck Supple W Full Motion Chest: Symmetric LUNGS: Clear to Auscultation (anteriorly) Heart: S1S2, murmurs (2/6 systolic murmur ), irregularly irregular, other (tele : atrial fib) Abdomen: Soft N/T, Other (truncal obesity) Extremities: Other (2+ bilateral LE edema. chronic venous statis changes to bilateral LE) Neurology: alert, follow commands Assessment Assessment 1. Mental status changes DDx: Narcotics, pain, HTN, ? UTI, ? CO2 retention improved today 2. Diastolic HF - acute on chronic 9 Liters negative; weight down 2 # continue medical management 3. JOSE on CKD 4. HTN controlled with medications 5. Morbid obesity LEON GARDNER MD 02/09/17 1754: CARDIO Progress Notes Plan Plan Patient seen and examined. Agree with above nurse practitioner note. No acute events overnight. Her mentation is much improved today. Bilateral lower extremity edema is significantly improved since admission. Continue Lasix drip overnight we will likely plan for transitioning to intravenous twice a day dosing tomorrow. APARNA JOSEPH APRN Feb 09, 2017 13:47 LEON GARDNER MD Feb 09, 2017 17:54
[2017-02-09] MEDS: FUROSEMIDE INJ 100 MG in IV NORMAL SALINE 100ML 100 ML IV PRN (14:54)
[2017-02-09] MEDS: ALPRAZolam 0.25 MG TABLET PO PRN (21:49)
[2017-02-09] MEDS: GABAPENTIN 300 MG CAPSULE. PO PRN ×2 (21:51→21:55)
[2017-02-09] MEDS: HYDROcodone/APAP 5/325MG 1 TAB TABLET PO PRN (21:52)
[2017-02-09] MEDS: INSULIN DETEMIR 300 UNITS/3 ML INSULN.PEN. SQ SCH (21:54)
--- NOTE | 2017-02-09 23:17 | PDOC ---
Provider Note Provider Note RENAL F/U : SID S : No new issues. O : VSS Afebrile. Neck : Supple Lungs : Non labored. CVS : RRR Abd : Benign in appearance, without distention. Ext : 1+ edema Neuro : Awake. Labs reviewed. A/P : ARF/ATN EDEMA CKD CHF. Diuresing well. Labs. CPM. ALEXANDRA LAU MD Feb 09, 2017 23:17
[2017-02-10] VITALS (7 sets, daily range): BP systolic 91–140; BP diastolic 53–93
--- NOTE | 2017-02-10 01:58 | CONS ---
DATE OF CONSULTATION: 02/09/2017 ATTENDING PHYSICIAN: Dr. Argueta. The patient was seen at the request of Dr. Argueta. HISTORY OF PRESENT ILLNESS: This is a 66-year-old right-handed female. The patient was admitted on ____ with exacerbation of chronic congestive heart failure and possible loose stools. She apparently has been skipping medication to save money, did not follow in the office of the Cardiology. The patient was in the hospital 2 months ago with similar complaints. Since admission, she has been being treated for congestive heart failure. She complains of pain and stiffness in her knees going on long time. She was told that she had [id number] arthritis in her knees and she has been using a scooter to get around. She lives at home, had one step to enter. The patient also with known diabetes mellitus, obesity and chronic kidney disease. Dr. Bui is her primary care physician and she was told that she is not a candidate for total knee arthroplasty secondary to her medical problems. The patient also with anemia of chronic disease. She is not known allergic to any medication. The patient was seen by ____ on 02/01/2017. She had a steroid injection done with some help and Dr. Green saw her on 02/08/2017. She noted her with right knee joint effusion. He aspirated the knee and injected with lidocaine solution and obtained about 50 mL of normal appearing joint fluid. He wanted to make sure there is no infection before doing any steroid injection. He did not inject her right knee steroid. PHYSICAL EXAMINATION: Today revealed a middle-aged female. She is alert and oriented to time, place, person and circumstance and follows commands appropriately. She had significant pain on attempted movements of her knees, especially right one. The patient had relative weakness of dorsiflexor muscles of both feet. Overall, she had 4+/5 grade muscle strength. Deep tendon reflexes are absent at knees and ankles. She had equal perception of touch and pinprick sensation bilaterally. ASSESSMENT: Mobility and self-care limitations from painful degenerative joint disease of both knees, right more than left side, in a patient with known diabetes mellitus, peripheral neuropathy, hyperlipidemia, hypertension, congestive heart failure, obstructive sleep apnea, anemia, anxiety, depression, gouty arthritis, chronic renal insufficiency, hyperparathyroidism, status post appendectomy, cholecystectomy, hernia repair, hysterectomy, colectomy, bilateral carpal tunnel release, ____ shunt placement. RECOMMENDATIONS: To consider knee bracing as she had significant discomfort in her right knee. She apparently had some brace at home, let her to bring it. We will await Dr. Green's plans for easing her pain. He might consider her for total knee arthroplasty when she is medically stable. Dr. Argueta, I appreciate asking me to participate in the care of this interesting patient. I will be glad to follow her with you as needed for her rehabilitation. GABRIEL LAWS MD DR: GAYATHRI/isaac JOB#: [id number] / [id number]
[2017-02-10 04:40] LABS: BASO % 1 % (0-3); EOS % 3 % (0-3); HEMATOCRIT 27.6 % (36.0-47.0); LYMPH # 1.9 x10^3/uL (1.0-4.8); LYMPH % 22 % (24-48); MEAN CORPUSCULAR HEMOGLOBIN 29 pg (25-35); MEAN CORPUSCULAR HGB CONC 33 g/dL (31-37); MEAN CORPUSCULAR VOLUME 88 fL (79-100); MONO % 10 % (0-9); NEUT % 65 % (31-73); PLATELET COUNT 127 x10^3/uL (140-400); RED BLOOD COUNT 3.13 x10^6/uL (3.50-5.40); RED CELL DISTRIBUTION WIDTH 15.6 % (11.5-14.5); WHITE BLOOD COUNT 8.7 x10^3/uL (4.0-11.0)
[2017-02-10 05:05] LABS: ALBUMIN 1.8 g/dL (3.4-5.0); CALCIUM 8.1 mg/dL (8.5-10.1); CREATININE 3.6 mg/dL (0.6-1.0); GFR 12.6; PHOSPHORUS 4.7 mg/dL (2.6-4.7); POTASSIUM 3.5 mmol/L (3.5-5.1)
[2017-02-10] MEDS: HEPARIN PF for SUB-Q USE 5,000 UNIT/0.5 ML VIAL. SQ SCH ×3 (06:00→21:02)
[2017-02-10] MEDS ORDERED: LIDOCAINE 1% PF 2 ML VIAL. ONE (06:35)
[2017-02-10] MEDS: INSULIN ASPART 300 UNITS/3 ML INSULN.PEN SQ SCH ×3 (08:00→18:09)
[2017-02-10] MEDS: hydrALAZINE 25 MG TABLET PO SCH ×2 (09:00→20:52)
[2017-02-10] MEDS: CYCLOBENZAPRINE 10 MG TABLET. PO SCH ×2 (09:00→20:51)
[2017-02-10] MEDS: amLODIPine BESYLATE 10 MG TABLET PO SCH (09:00)
[2017-02-10] MEDS: LISINOPRIL 40 MG TABLET. PO SCH (09:00)
[2017-02-10] MEDS ORDERED: predniSONE 20 MG TABLET PO ONE (09:30)
[2017-02-10] MEDS ORDERED: COLCHICINE 0.6 MG TABLET PO ONE (09:30)
[2017-02-10] MEDS: GABAPENTIN 400 MG CAPSULE. PO SCH ×2 (09:38→20:51)
[2017-02-10] MEDS: PANTOPRAZOLE 40 MG TABLET.DR. PO SCH (09:38)
[2017-02-10] MEDS: ASPIRIN ENTERIC COATED 81 MG TABLET.DR. PO SCH (09:38)
[2017-02-10] MEDS: CHOLECALCIFEROL (VITAMIN D3) 5,000 UNIT CAPSULE PO SCH (09:38)
[2017-02-10] MEDS: FLUCONAZOLE 100 MG TABLET. PO SCH (09:38)
[2017-02-10] MEDS: METOPROLOL TART IMMED RELEASE 25 MG TABLET. PO SCH ×2 (09:42→20:52)
[2017-02-10] MEDS: DICLOFENAC SODIUM 1% TOPICAL GEL 100GM TUBE. TP SCH ×2 (09:43→20:51)
--- NOTE | 2017-02-10 09:52 | PDOC ---
PROGRESS NOTES Subjective Subjective No new complaints. Objective Objective Vital Signs Date Time Temp Pulse Resp B/P (MAP) Pulse Ox O2 Delivery O2 Flow Rate FiO2 02/10/17 09:00 103/57 02/10/17 07:00 98.0 95 16 95 Nasal Cannula 98.0 02/10/17 02:37 2.0 Intake and Output 02/10/17 07:00 Intake Total 1010 ml Output Total 910 ml Balance 100 ml Intake Oral 1010 ml Output Urine Total 910 ml Physical Exam Physical Exam She is sleepy this AM and I have to wake her up.She just had knee immobilizer to her right knee. 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 Comment Review of Relevant I have reviewed the following items kai (where applicable) has been applied. Labs Laboratory Tests Test 02/08/17 11:57 02/08/17 15:10 02/08/17 16:00 02/08/17 17:32 Glucose (Fingerstick) 87 mg/dL (70-99) 97 mg/dL (70-99) Body Fluid Source Synovial Body Fluid Color Yellow Body Fluid Clarity Cloudy Body Fluid Nucleated Cells 39266 /cmm Body Fluid Mononuclear WBCs (%) 6 % Body Fluid Polymorphonuclear Cells 94 % Body Fluid Total RBCs Counted 115 /cmm Body Fluid Other Cells (%) 0 % Body Fluid Crystals Comment (None seen) O2 Saturation 85 % (92-99) Arterial Blood pH 7.44 (7.35-7.45) Arterial Blood pCO2 at Patient Temp 35 mmHg (35-46) Arterial Blood pO2 at Patient Temp 48 mmHg (65-108) Arterial Blood HCO3 23 mmol/L (21-28) Arterial Blood Base Excess 0 mmol/L (-3-3) FiO2 21 Test 02/08/17 17:54 02/08/17 21:11 02/09/17 03:15 02/09/17 08:19 Urine Collection Type Unknown Urine Color Yellow Urine Clarity Clear Urine pH 6.0 Urine Specific [place] <=1.005 Urine Protein 100 mg/dL (NEG-TRACE) Urine Glucose (UA) Negative mg/dL (NEG) Urine Ketones (Stick) Negative mg/dL (NEG) Urine Blood Trace (NEG) Urine Nitrite Negative (NEG) Urine Bilirubin Negative (NEG) Urine Urobilinogen Dipstick 1.0 mg/dL (0.2 mg/dL) Urine Leukocyte Esterase Small (NEG) Urine RBC Occ /HPF (0-2) Urine WBC 5-10 /HPF (0-4) Urine Squamous Epithelial Cells Few /LPF Urine Bacteria Many /HPF (0-FEW) Urine Mucus Slight /LPF Glucose (Fingerstick) 132 mg/dL (70-99) 67 mg/dL (70-99) White Blood Count 9.7 x10^3/uL (4.0-11.0) Red Blood Count 3.31 x10^6/uL (3.50-5.40) Hemoglobin 9.5 g/dL (12.0-15.5) Hematocrit 29.1 % (36.0-47.0) Mean Corpuscular Volume 88 fL (79-100) Mean Corpuscular Hemoglobin 29 pg (25-35) Mean Corpuscular Hemoglobin Concent 33 g/dL (31-37) Red Cell Distribution Width 15.5 % (11.5-14.5) Platelet Count 124 x10^3/uL (140-400) Neutrophils (%) (Auto) 68 % (31-73) Lymphocytes (%) (Auto) 19 % (24-48) Monocytes (%) (Auto) 12 % (0-9) Eosinophils (%) (Auto) 0 % (0-3) Basophils (%) (Auto) 0 % (0-3) Neutrophils # (Auto) 6.6 x10^3uL (1.8-7.7) Lymphocytes # (Auto) 1.9 x10^3/uL (1.0-4.8) Monocytes # (Auto) 1.2 x10^3/uL (0.0-1.1) Eosinophils # (Auto) 0.0 x10^3/uL (0.0-0.7) Basophils # (Auto) 0.0 x10^3/uL (0.0-0.2) Sodium Level 144 mmol/L (136-145) Potassium Level 3.7 mmol/L (3.5-5.1) Chloride Level 106 mmol/L (98-107) Carbon Dioxide Level 29 mmol/L (21-32) Anion Gap 9 (6-14) Blood Urea Nitrogen 48 mg/dL (7-20) Creatinine 3.1 mg/dL (0.6-1.0) Estimated GFR (Cockcroft-Gault) 14.9 Glucose Level 86 mg/dL (70-99) Calcium Level 8.3 mg/dL (8.5-10.1) Phosphorus Level 5.0 mg/dL (2.6-4.7) Magnesium Level 1.6 mg/dL (1.8-2.4) Albumin 1.9 g/dL (3.4-5.0) Test 02/09/17 09:51 02/09/17 11:38 02/09/17 17:12 02/09/17 20:29 Glucose (Fingerstick) 169 mg/dL (70-99) 174 mg/dL (70-99) 261 mg/dL (70-99) 252 mg/dL (70-99) Test 02/10/17 04:15 02/10/17 07:34 White Blood Count 8.7 x10^3/uL (4.0-11.0) Red Blood Count 3.13 x10^6/uL (3.50-5.40) Hemoglobin 9.0 g/dL (12.0-15.5) Hematocrit 27.6 % (36.0-47.0) Mean Corpuscular Volume 88 fL (79-100) Mean Corpuscular Hemoglobin 29 pg (25-35) Mean Corpuscular Hemoglobin Concent 33 g/dL (31-37) Red Cell Distribution Width 15.6 % (11.5-14.5) Platelet Count 127 x10^3/uL (140-400) Neutrophils (%) (Auto) 65 % (31-73) Lymphocytes (%) (Auto) 22 % (24-48) Monocytes (%) (Auto) 10 % (0-9) Eosinophils (%) (Auto) 3 % (0-3) Basophils (%) (Auto) 1 % (0-3) Neutrophils # (Auto) 5.7 x10^3uL (1.8-7.7) Lymphocytes # (Auto) 1.9 x10^3/uL (1.0-4.8) Monocytes # (Auto) 0.8 x10^3/uL (0.0-1.1) Eosinophils # (Auto) 0.2 x10^3/uL (0.0-0.7) Basophils # (Auto) 0.0 x10^3/uL (0.0-0.2) Sodium Level 141 mmol/L (136-145) Potassium Level 3.5 mmol/L (3.5-5.1) Chloride Level 105 mmol/L (98-107) Carbon Dioxide Level 31 mmol/L (21-32) Anion Gap 5 (6-14) Blood Urea Nitrogen 60 mg/dL (7-20) Creatinine 3.6 mg/dL (0.6-1.0) Estimated GFR (Cockcroft-Gault) 12.6 Glucose Level 150 mg/dL (70-99) Calcium Level 8.1 mg/dL (8.5-10.1) Phosphorus Level 4.7 mg/dL (2.6-4.7) Albumin 1.8 g/dL (3.4-5.0) Glucose (Fingerstick) 87 mg/dL (70-99) Laboratory Tests Test 02/09/17 09:51 02/09/17 11:38 02/09/17 17:12 02/09/17 20:29 Glucose (Fingerstick) 169 mg/dL (70-99) 174 mg/dL (70-99) 261 mg/dL (70-99) 252 mg/dL (70-99) Test 02/10/17 04:15 02/10/17 07:34 White Blood Count 8.7 x10^3/uL (4.0-11.0) Red Blood Count 3.13 x10^6/uL (3.50-5.40) Hemoglobin 9.0 g/dL (12.0-15.5) Hematocrit 27.6 % (36.0-47.0) Mean Corpuscular Volume 88 fL (79-100) Mean Corpuscular Hemoglobin 29 pg (25-35) Mean Corpuscular Hemoglobin Concent 33 g/dL (31-37) Red Cell Distribution Width 15.6 % (11.5-14.5) Platelet Count 127 x10^3/uL (140-400) Neutrophils (%) (Auto) 65 % (31-73) Lymphocytes (%) (Auto) 22 % (24-48) Monocytes (%) (Auto) 10 % (0-9) Eosinophils (%) (Auto) 3 % (0-3) Basophils (%) (Auto) 1 % (0-3) Neutrophils # (Auto) 5.7 x10^3uL (1.8-7.7) Lymphocytes # (Auto) 1.9 x10^3/uL (1.0-4.8) Monocytes # (Auto) 0.8 x10^3/uL (0.0-1.1) Eosinophils # (Auto) 0.2 x10^3/uL (0.0-0.7) Basophils # (Auto) 0.0 x10^3/uL (0.0-0.2) Sodium Level 141 mmol/L (136-145) Potassium Level 3.5 mmol/L (3.5-5.1) Chloride Level 105 mmol/L (98-107) Carbon Dioxide Level 31 mmol/L (21-32) Anion Gap 5 (6-14) Blood Urea Nitrogen 60 mg/dL (7-20) Creatinine 3.6 mg/dL (0.6-1.0) Estimated GFR (Cockcroft-Gault) 12.6 Glucose Level 150 mg/dL (70-99) Calcium Level 8.1 mg/dL (8.5-10.1) Phosphorus Level 4.7 mg/dL (2.6-4.7) Albumin 1.8 g/dL (3.4-5.0) Glucose (Fingerstick) 87 mg/dL (70-99) Microbiology 02/08/17 Gram Stain - Final, Complete Medications Current Medications Zolpidem Tartrate (Ambien) 5 mg PRN QHS PRN PO INSOMNIA, MAY REPEAT IN 1HR Last administered on 02/09/17 21:49; Start 01/29/17 at 18:45 Oxycodone HCl (Roxicodone) 5 mg PRN Q3HRS PRN PO BREAKTHROUGH PAIN Last administered on 02/08/17 09:18; Start 01/29/17 at 18:45 Acetaminophen (Tylenol) 650 mg PRN Q6HRS PRN PO Headaches, Temp > 101.5F Last administered on 02/08/17 21:24; Start 01/29/17 at 18:45 Ibuprofen (Motrin) 400 mg PRN Q6HRS PRN PO MILD PAIN; Start 01/29/17 at 18:45; Stop 02/05/17 at 09:24; Status DC Docusate Sodium (Colace) 100 mg BID PO Last administered on 02/01/17 08:42; Start 01/29/17 at 21:00; Stop 02/02/17 at 11:08; Status DC Magnesium Hydroxide (Milk Of Magnesia) 2,400 mg PRN Q12HR PRN PO CONSTIPATION; Start 01/29/17 at 18:45 Lactulose 20 gm PRN Q12HR PRN PO CONSTIPATION; Start 01/29/17 at 18:45 Bisacodyl (Dulcolax Supp) 10 mg PRN DAILY PRN [place] CONSTIPATION; Start 01/29/17 at 18:45; Stop 02/02/17 at 11:08; Status DC Enoxaparin Sodium (Lovenox 40mg Syringe) 40 mg Q12HR SQ Last administered on 21:09; Start 01/29/17 at 22:00; Stop 01/31/17 at 07:12; Status DC Alprazolam (Xanax) 0.25 mg QHS PRN PO ANXIETY / AGITATION Last administered on 02/09/17 21:49; Start 01/29/17 at 18:45 Carvedilol (Coreg) 12.5 mg BIDWMEALS PO Last administered on 01/29/17 21:51; Start 01/29/17 at 19:00; Stop 01/30/17 at 11:28; Status DC Cyclobenzaprine HCl (Flexeril) 10 mg BID PO Last administered on 02/09/17 21:50 ; Start 01/29/17 at 21:00 Fluconazole (Diflucan) 100 mg DAILY PO Last administered on 02/09/17 08:28; Start 01/30/17 at 09:00 Furosemide (Lasix) 40 mg BID92 PO ; Start 01/30/17 at 09:00; Stop 01/30/17 at 09 :00; Status DC Hydralazine HCl (Apresoline) 25 mg BID PO Last administered on 02/09/17 08:30; Start 01/29/17 at 21:00 Acetaminophen/ Hydrocodone Bitart (Lortab 5/325) 1 tab PRN Q6HRS PRN PO MILD PAIN Last administered on 02/09/17 21:52; Start 01/29/17 at 18:45 Lisinopril (Prinivil) 40 mg DAILY PO Last administered on 02/09/17 08:31; Start 01/30/17 at 09:00 Oxycodone/ Acetaminophen (Percocet 10/325) 1 tab PRN Q6HRS PRN PO MODERATE- SEVERE PAIN Last administered on 02/09/17 08:29; Start 01/29/17 at 18:45 Tramadol HCl (Ultram) 100 mg BID PO Last administered on 01/29/17 21:50; Start 01/29/17 at 21:00; Stop 01/30/17 at 11:51; Status DC Vitamin D (Vitamin D3) 5,000 unit DAILY PO Last administered on 02/09/17 08:29 ; Start 01/30/17 at 09:00 Gabapentin (Neurontin) 300 mg PRN DAILY PRN PO NERVE PAIN Last administered on 02/09/17 21:51; Start 01/29/17 at 21:00 Glimepiride (Amaryl) 4 mg BIDWMEALS PO Last administered on 02/08/17 09:10; Start 01/30/17 at 09:00; Stop 02/09/17 at 09:09; Status DC Insulin Detemir (Levemir) 40 units QHS SQ Last administered on 01/29/17 22:01 ; Start 01/29/17 at 21:00; Stop 01/30/17 at 11:51; Status DC Insulin Aspart (NovoLOG) 50 units TIDAC SQ Last administered on 01/29/17 22:00 ; Start 01/29/17 at 19:00; Stop 01/30/17 at 11:51; Status DC Non-Formulary Medication 1.2 mg DAILY SQ ; Start 01/30/17 at 09:00; Stop at 09:00; Status DC Pantoprazole Sodium (Protonix) 40 mg DAILYAC PO Last administered on 02/09/17 08:28; Start 01/30/17 at 07:30 Potassium Chloride (Klor-Con) 10 meq DAILYWBKFT PO Last administered on 08:59; Start 01/30/17 at 08:00; Stop 02/05/17 at 09:21; Status DC Insulin Aspart (NovoLOG) 0-9 UNITS TIDWMEALS SQ Last administered on 02/09/17 18:05; Start 01/30/17 at 08:00 Dextrose (Dextrose 50%-Water Syringe) 12.5 gm PRN Q15MIN PRN IV SEE COMMENTS; Start 01/29/17 at 18:45 Furosemide (Lasix) 40 mg 1X ONCE IVP Last administered on 01/29/17 21:52; Start 01/29/17 at 21:00; Stop 01/29/17 at 21:01; Status DC Furosemide (Lasix) 40 mg BID92 IVP Last administered on 01/30/17 11:01; Start 01/30/17 at 09:00; Stop 01/30/17 at 11:28; Status DC Lidocaine HCl (Xylocaine-Mpf 1% Vial) 2 ml STK-MED ONCE .ROUTE ; Start 01/29/17 at 20:37; Stop 01/29/17 at 20:38; Status DC Dextrose 250 ml @ 1,000 mls/hr 1X ONCE IV ; Start 01/30/17 at 07:45; Stop at 07:59; Status DC Glucose (Insta-Glucose) 15 gm PRN Q15MIN PRN PO LOW BLOOD SUGAR Last administered on 01/30/17 07:55; Start 01/30/17 at 08:00 Glucose (Insta-Glucose) 15 gm STK-MED ONCE .ROUTE ; Start 01/30/17 at 07:52; Stop 01/30/17 at 07:53; Status DC Lidocaine HCl (Xylocaine-Mpf 1% Vial) 2 ml STK-MED ONCE .ROUTE ; Start 01/29/17 at 21:00; Stop 01/30/17 at 09:01; Status DC Furosemide (Lasix) 40 mg DAILY IVP Last administered on 02/03/17 08:39; Start 01/31/17 at 09:00; Stop 02/03/17 at 15:50; Status DC Aspirin (Ecotrin) 81 mg DAILYWBKFT PO Last administered on 02/09/17 08:30; Start 01/30/17 at 12:30 Insulin Detemir (Levemir) 25 units QHS SQ Last administered on 02/02/17 20:54 ; Start 01/30/17 at 21:00; Stop 02/03/17 at 11:09; Status DC Gabapentin (Neurontin) 400 mg BID PO Last administered on 02/09/17 22:01; Start 01/31/17 at 09:00 Gabapentin (Neurontin) 100 mg 1X ONCE PO Last administered on 01/31/17 01:56 ; Start 01/31/17 at 02:00; Stop 01/31/17 at 02:01; Status DC Enoxaparin Sodium (Lovenox 40mg Syringe) 40 mg QHS SQ Last administered on 02/03 20:32; Start 01/31/17 at 21:00; Stop 02/04/17 at 09:32; Status DC Methylprednisolone Acetate (DEPO-Medrol 40MG VIAL) 40 mg 1X ONCE IM Last administered on 02/01/17 13:30; Start 02/01/17 at 13:30; Stop 02/01/17 at 13:31 ; Status DC Lidocaine/Sodium Bicarbonate (Buffered Lidocaine 1%) 20 ml 1X ONCE IJ Last administered on 02/01/17 13:30; Start 02/01/17 at 13:30; Stop 02/01/17 at 13:31 ; Status DC Labetalol HCl (Normodyne) 20 mg PRN Q2HR PRN IVP HYPERTENSION, SEE COMMENTS Last administered on 02/01/17 23:59; Start 02/01/17 at 23:30; Stop 02/03/17 at 15:47; Status DC Insulin Aspart (NovoLOG) 10 units TIDAC SQ Last administered on 02/06/17 07:30 ; Start 02/02/17 at 11:30; Stop 02/07/17 at 13:06; Status DC Insulin Aspart (NovoLOG VIAL) 15 unit 1X ONCE SQ ; Start 02/02/17 at 08:45; Stop 02/02/17 at 08:46; Status Cancel Insulin Aspart (NovoLOG) 15 units 1X ONCE SQ Last administered on 02/02/17 08 :42; Start 02/02/17 at 08:45; Stop 02/02/17 at 08:46; Status DC Loperamide HCl (Imodium) 2 mg PRN Q15MIN PRN PO DIARRHEA Last administered on 09:43; Start 02/02/17 at 11:15; Stop 02/03/17 at 12:31; Status DC Loperamide HCl (Imodium) 2 mg PRN Q15MIN PRN PO DIARRHEA Last administered on 01:35; Start 02/02/17 at 12:45; Stop 02/04/17 at 14:00; Status DC Insulin Detemir (Levemir) 35 units QHS SQ Last administered on 02/06/17 20:58; Start 02/03/17 at 21:00; Stop 02/07/17 at 13:06; Status DC Metoprolol Tartrate (Lopressor) 12.5 mg BID PO Last administered on 02/09/17 08 :35; Start 02/03/17 at 21:00 Furosemide (Lasix) 60 mg DAILY PO Last administered on 02/04/17 08:57; Start 02/04/17 at 09:00; Stop 02/04/17 at 14:34; Status DC Heparin Sodium (Porcine) (Heparin Sq) 5,000 unit Q8HRS SQ Last administered on 02/09/17 21:53; Start 02/04/17 at 14:00 Loperamide HCl (Imodium) 2 mg TID PO Last administered on 02/07/17 20:32; Start 02/04/17 at 14:00; Stop 02/09/17 at 10:50; Status DC Magnesium Sulfate/ Dextrose 50 ml @ 25 mls/hr PRN DAILY PRN IV for Mag < 1.7 on am labs; Start 02/04/17 at 14:30; Stop 02/05/17 at 10:05; Status DC Furosemide 100 mg/ Sodium Chloride 100 ml @ 0 mls/hr CONT PRN IV SEE I/O RECORD Last administered on 02/04/17 15:59; Start 02/04/17 at 14:30; Stop at 09:27; Status DC Acetylcysteine (Mucomyst 20% Oral Solution) 1,200 mg BID PO Last administered on 02/06/17 20:49; Start 02/05/17 at 09:00; Stop 02/07/17 at 08:59; Status DC Sodium Polystyrene Sulfonate (Kayexalate) 30 gm 1X ONCE PO Last administered on 02/06/17 09:49; Start 02/06/17 at 09:30; Stop 02/06/17 at 09:31; Status DC Dextrose 10 ml 1X ONCE IV Last administered on 02/06/17 09:56; Start 02/06/17 at 09:30; Stop 02/06/17 at 09:31; Status DC Insulin Human Regular (NovoLIN R VIAL) 10 unit 1X ONCE IV Last administered on 02/06/17 09:59; Start 02/06/17 at 09:30; Stop 02/06/17 at 09:31; Status DC Heparin Sodium/ Sodium Chloride 500 ml @ As Directed STK-MED ONCE .ROUTE ; Start 02/06/17 at 10:10; Stop 02/06/17 at 10:11; Status DC Lidocaine HCl 20 ml STK-MED ONCE .ROUTE ; Start 02/06/17 at 10:10; Stop 02/06/17 at 10:11; Status DC Fentanyl Citrate (Fentanyl 2ml Vial) 100 mcg STK-MED ONCE .ROUTE ; Start at 10:39; Stop 02/06/17 at 10:40; Status DC Midazolam HCl (Versed) 2 mg STK-MED ONCE .ROUTE ; Start 02/06/17 at 10:39; Stop 02/06/17 at 10:40; Status DC Heparin Sodium/ Sodium Chloride 1,000 unit 1X ONCE IART Last administered on 11:10; Start 02/06/17 at 11:15; Stop 02/06/17 at 11:16; Status DC Midazolam HCl (Versed) 1 mg 1X ONCE IV Last administered on 02/06/17 11:11; Start 02/06/17 at 11:15; Stop 02/06/17 at 11:16; Status DC Fentanyl Citrate (Fentanyl 2ml Vial) 50 mcg 1X ONCE IV Last administered on 11:11; Start 02/06/17 at 11:15; Stop 02/06/17 at 11:16; Status DC Lidocaine HCl 20 ml 1X ONCE IJ Last administered on 02/06/17 11:10; Start 02/06 at 11:15; Stop 02/06/17 at 11:16; Status DC Sodium Chloride (Normal Saline Flush) 3 ml QSHIFT PRN IV AFTER MEDS AND BLOOD DRAWS; Start 02/06/17 at 11:15 Nitroglycerin (Nitrostat) 0.4 mg PRN Q5MIN PRN SL CHEST PAIN; Start 02/06/17 at 11:15 Iron Sucrose 200 mg/Sodium Chloride 110 ml @ 55 mls/hr 3X/WEEK IV Last administered on 02/06/17 16:30; Start 02/06/17 at 13:00; Stop 02/16/17 at 10:59 Furosemide 100 mg/ Sodium Chloride 100 ml @ 0 mls/hr CONT PRN IV SEE I/O RECORD Last administered on 02/09/17 14:54; Start 02/06/17 at 13:30 Insulin Detemir (Levemir) 20 units QHS SQ ; Start 02/07/17 at 21:00; Stop at 09:08; Status DC Furosemide (Lasix) 20 mg 1X ONCE IVP ; Start 02/07/17 at 13:30; Stop 02/07/17 at 13:31; Status Cancel Diclofenac Sodium (Voltaren) 1 katia BID TP Last administered on 02/09/17 21:55; Start 02/08/17 at 13:30 Lidocaine HCl 16 ml/Sodium Bicarbonate 4 meq/ Miscellaneous 20 ml @ 20 mls/hr 1X ONCE ID ; Start 02/09/17 at 06:00; Stop 02/09/17 at 06:59; Status UNV Lidocaine HCl 10 ml 1X ONCE INJ Last administered on 02/08/17 15:44; Start 02/08/17 at 14:00; Stop 02/08/17 at 14:01; Status DC Amlodipine Besylate (Norvasc) 10 mg DAILY PO Last administered on 02/09/17 08: 30; Start 02/09/17 at 09:00 Amlodipine Besylate (Norvasc) 10 mg 1X ONCE PO Last administered on 02/08/17 15:43; Start 02/08/17 at 16:00; Stop 02/08/17 at 16:01; Status DC Insulin Detemir (Levemir) 12 units QHS SQ Last administered on 02/09/17 21:54; Start 02/09/17 at 21:00 Ceftriaxone Sodium 1 gm/ Sodium Chloride 50 ml @ 100 mls/hr Q24H IV Last administered on 02/09/17 11:41; Start 02/09/17 at 10:00; Stop 02/10/17 at 09:25; Status DC Loperamide HCl (Imodium) 2 mg PRN TID PRN PO if diarrhea recurs; Start 02/09/17 at 11:00 Lidocaine HCl (Xylocaine-Mpf 1% Vial) 2 ml STK-MED ONCE .ROUTE ; Start 02/10/17 at 06:35; Stop 02/10/17 at 06:36; Status DC Prednisone (Prednisone) 60 mg 1X ONCE PO ; Start 02/10/17 at 09:30; Stop at 09:41; Status DC Prednisone (Prednisone) 40 mg DAILY PO ; Start 02/11/17 at 09:00 Colchicine (Colcrys) 1.2 mg 1X ONCE PO ; Start 02/10/17 at 09:30; Stop 02/10/17 at 09:41; Status DC Active Scripts Active Xanax (Alprazolam) 0.25 Mg Tablet 0.25 Mg PO QHS PRN Oxycodone-Acetaminophen 10-325 (Oxycodone Hcl/Acetaminophen) 1 Each Tablet 1 Tab PO PRN Q6HRS PRN Hydralazine Hcl 25 Mg Tablet 25 Mg PO BID Carvedilol 12.5 Mg Tablet 12.5 Mg PO BIDWMEALS Fluconazole 100 Mg Tablet 1 Tab PO DAILY Lasix (Furosemide) 40 Mg Tablet 40 Mg PO BID Reported Lisinopril 40 Mg Tablet 1 Tab PO DAILY Humalog (Insulin Lispro) 100 Unit/1 Ml Vial 50 Unit SQ TID Lortab 5-325 mg Tablet (Hydrocodone/Acetaminophen) 1 Each Tablet 1 Tab PO PRN Q6HRS PRN Levemir (Insulin Detemir) 100 Unit/1 Ml Vial 40 Unit SQ HS Victoza 3-Devon (Liraglutide) 0.6 Mg/0.1 Ml Pen.injctr 1.2 Mg SQ DAILY Gabapentin 300 Mg Capsule 1 Cap PO DAILY PRN Vitamin D3 (Cholecalciferol (Vitamin D3)) 5,000 Unit Tablet 1 Tab PO DAILY Glimepiride 4 Mg Tablet 1 Tab PO BID Tramadol Hcl 50 Mg Tablet 2 Tab PO BID Cyclobenzaprine Hcl 10 Mg Tablet 1 Tab PO BID Klor-Con 10 (Potassium Chloride) 10 Meq Tablet.er 1 Tab PO DAILY Omeprazole 20 Mg Capsule. 1 Cap PO DAILY Vitals/I & O Vital Sign - Last 24 Hours 02/09/17 02/09/17 02/09/17 02/09/17 10:25 14:37 15:30 19:14 Temp 97.6 98.6 98.7 97.6 98.6 98.7 Pulse 73 73 91 Resp 20 19 20 B/P (MAP) 116/53 (74) 81/46 (58) 102/42 (62) 88/44 (59) Pulse Ox 99 96 94 O2 Delivery Nasal Cannula Nasal Cannula Nasal Cannula O2 Flow Rate 2.0 02/09/17 02/09/17 02/09/17 02/09/17 20:15 21:00 21:00 22:51 Temp 98.8 98.8 Pulse 91 94 100 B/P (MAP) 88/44 88/44 111/59 (76) Pulse Ox 96 O2 Delivery Nasal Cannula Nasal Cannula O2 Flow Rate 2.0 2.0 02/10/17 02/10/17 02/10/17 02/10/17 02:37 07:00 09:00 09:00 Temp 98.8 98.0 98.8 98.0 Pulse 85 95 Resp 18 16 B/P (MAP) 102/56 (71) 103/57 (72) 103/57 103/57 Pulse Ox 95 95 O2 Delivery Nasal Cannula Nasal Cannula O2 Flow Rate 2.0 02/10/17 09:00 B/P (MAP) 103/57 Intake and Output 02/09/17 02/09/17 02/10/17 15:00 23:00 07:00 Intake Total 810 ml 200 ml Output Total 700 ml 210 ml Balance 110 ml -10 ml GABRIEL LAWS MD Feb 10, 2017 09:52
--- NOTE | 2017-02-10 10:59 | PDOC ---
Subjective: Subjective: Not much appetite. No abd pain. No BM yet. Objective: Objective: No GI concerns per RN. Vital Signs: Vital Signs Date Time Temp Pulse Resp B/P (MAP) Pulse Ox O2 Delivery O2 Flow Rate FiO2 02/10/17 09:42 89 02/10/17 09:00 103/57 02/10/17 07:00 98.0 16 95 Nasal Cannula 98.0 02/10/17 02:37 2.0 Labs: Laboratory Tests Test 02/09/17 11:38 02/09/17 17:12 02/09/17 20:29 02/10/17 04:15 Glucose (Fingerstick) 174 mg/dL 261 mg/dL 252 mg/dL White Blood Count 8.7 x10^3/uL Red Blood Count 3.13 x10^6/uL Hemoglobin 9.0 g/dL Hematocrit 27.6 % Mean Corpuscular Volume 88 fL Mean Corpuscular Hemoglobin 29 pg Mean Corpuscular Hemoglobin Concent 33 g/dL Red Cell Distribution Width 15.6 % Platelet Count 127 x10^3/uL Neutrophils (%) (Auto) 65 % Lymphocytes (%) (Auto) 22 % Monocytes (%) (Auto) 10 % Eosinophils (%) (Auto) 3 % Basophils (%) (Auto) 1 % Neutrophils # (Auto) 5.7 x10^3uL Lymphocytes # (Auto) 1.9 x10^3/uL Monocytes # (Auto) 0.8 x10^3/uL Eosinophils # (Auto) 0.2 x10^3/uL Basophils # (Auto) 0.0 x10^3/uL Sodium Level 141 mmol/L Potassium Level 3.5 mmol/L Chloride Level 105 mmol/L Carbon Dioxide Level 31 mmol/L Anion Gap 5 Blood Urea Nitrogen 60 mg/dL Creatinine 3.6 mg/dL Estimated GFR (Cockcroft-Gault) 12.6 Glucose Level 150 mg/dL Calcium Level 8.1 mg/dL Phosphorus Level 4.7 mg/dL Albumin 1.8 g/dL Test 02/10/17 07:34 Glucose (Fingerstick) 87 mg/dL PE: GEN: NAD LUNGS: CTAB HEART: RRR ABD: S/ND/NT, obese NEURO/PSYCH: A & O 3 A/P: CHF, CKD, right knee pain, BLE edema AMS - better Decreased appetite Anemia -Hgb stable overall -on IV iron and PO PPI -EGD 2014; h/o Serafin shunt, staple line breakdown -?h/o FAP, s/p colectomy, rectal adenoma 2014 -- No new GI recs. ANALI JOHNSON Feb 10, 2017 10:58
[2017-02-10] MEDS: FUROSEMIDE INJ 100 MG in IV NORMAL SALINE 100ML 100 ML IV PRN (12:59)
[2017-02-10] MEDS: oxyCODONE/APAP 10/325 1 TAB TABLET PO PRN (13:11)
--- NOTE | 2017-02-10 13:52 | PDOC ---
PROGRESS NOTES Chief Complaint Chief Complaint 1. Acute-on chronic congestive heart failure, likely systolic versus diastolic or combined. 2. s/p RHC - 02/06/17- normal 2. Old lymphedema. 3. Obesity. 4. Diabetes type 2. Unknown Hgb A1c. WITH HYPOGLYCEMIA 6. JOSE on Chronic kidney disease, NOW OLIGURIC 7. Anemia of chronic disease. 8. Limited mobility, wheelchair-bound. 9. GOUT R knee s.p tap 11. Diarrhea resolved History of Present Illness History of Present Illness MSU on polarized light microscopy on Rt knee fluid NOW OLIGURIC 250 cc last night 12 hr shift NOne this AM On lasix gtt Crea 3.6 PLAN; Dc IV rocephin - not septic joint PRed 60 x 1 now then daily COlcrys 1,.2 now If ok with renal colcrys 0.6 PO qD Might be needing HD, oliguric, renal failure THough bicarb and K ok Renal panel daily Dw pt, RN and family Keep dhaliwal Strict I and o Vitals Vitals Vital Signs Date Time Temp Pulse Resp B/P (MAP) Pulse Ox O2 Delivery O2 Flow Rate FiO2 02/10/17 13:11 Nasal Cannula 2.0 02/10/17 11:33 97.7 76 22 91/54 (66) 97 97.7 Physical Exam General: Alert, Oriented X3, Cooperative, No acute distress Heart: Regular rate, Normal S1, Normal S2 Lungs: Clear, Other (no wheezing) Abdomen: Normal bowel sounds, Soft, No tenderness Extremities: Normal pulses, Other (+2 -3 edema, + right femoral pulse, no hematoma, bleeding or bruit, +2 distal pulse. ; Rt knee swelling and pain, limited rOM but no erythema) Skin: No significant lesion Labs LABS Laboratory Tests Test 02/09/17 17:12 02/09/17 20:29 02/10/17 04:15 02/10/17 07:34 Glucose (Fingerstick) 261 mg/dL (70-99) 252 mg/dL (70-99) 87 mg/dL (70-99) White Blood Count 8.7 x10^3/uL (4.0-11.0) Red Blood Count 3.13 x10^6/uL (3.50-5.40) Hemoglobin 9.0 g/dL (12.0-15.5) Hematocrit 27.6 % (36.0-47.0) Mean Corpuscular Volume 88 fL (79-100) Mean Corpuscular Hemoglobin 29 pg (25-35) Mean Corpuscular Hemoglobin Concent 33 g/dL (31-37) Red Cell Distribution Width 15.6 % (11.5-14.5) Platelet Count 127 x10^3/uL (140-400) Neutrophils (%) (Auto) 65 % (31-73) Lymphocytes (%) (Auto) 22 % (24-48) Monocytes (%) (Auto) 10 % (0-9) Eosinophils (%) (Auto) 3 % (0-3) Basophils (%) (Auto) 1 % (0-3) Neutrophils # (Auto) 5.7 x10^3uL (1.8-7.7) Lymphocytes # (Auto) 1.9 x10^3/uL (1.0-4.8) Monocytes # (Auto) 0.8 x10^3/uL (0.0-1.1) Eosinophils # (Auto) 0.2 x10^3/uL (0.0-0.7) Basophils # (Auto) 0.0 x10^3/uL (0.0-0.2) Sodium Level 141 mmol/L (136-145) Potassium Level 3.5 mmol/L (3.5-5.1) Chloride Level 105 mmol/L (98-107) Carbon Dioxide Level 31 mmol/L (21-32) Anion Gap 5 (6-14) Blood Urea Nitrogen 60 mg/dL (7-20) Creatinine 3.6 mg/dL (0.6-1.0) Estimated GFR (Cockcroft-Gault) 12.6 Glucose Level 150 mg/dL (70-99) Calcium Level 8.1 mg/dL (8.5-10.1) Phosphorus Level 4.7 mg/dL (2.6-4.7) Albumin 1.8 g/dL (3.4-5.0) Test 02/10/17 12:03 Glucose (Fingerstick) 77 mg/dL (70-99) Review of Systems Review of Systems weak, R knee pain,d ec appetite, no SOA, no CP Comment Review of Relevant I have reviewed the following items kai (where applicable) has been applied. Labs Laboratory Tests Test 02/08/17 15:10 02/08/17 16:00 02/08/17 17:32 02/08/17 17:54 Body Fluid Source Synovial Body Fluid Color Yellow Body Fluid Clarity Cloudy Body Fluid Nucleated Cells 24715 /cmm Body Fluid Mononuclear WBCs (%) 6 % Body Fluid Polymorphonuclear Cells 94 % Body Fluid Total RBCs Counted 115 /cmm Body Fluid Other Cells (%) 0 % Body Fluid Crystals Comment (None seen) O2 Saturation 85 % (92-99) Arterial Blood pH 7.44 (7.35-7.45) Arterial Blood pCO2 at Patient Temp 35 mmHg (35-46) Arterial Blood pO2 at Patient Temp 48 mmHg (65-108) Arterial Blood HCO3 23 mmol/L (21-28) Arterial Blood Base Excess 0 mmol/L (-3-3) FiO2 21 Glucose (Fingerstick) 97 mg/dL (70-99) Urine Collection Type Unknown Urine Color Yellow Urine Clarity Clear Urine pH 6.0 Urine Specific [place] <=1.005 Urine Protein 100 mg/dL (NEG-TRACE) Urine Glucose (UA) Negative mg/dL (NEG) Urine Ketones (Stick) Negative mg/dL (NEG) Urine Blood Trace (NEG) Urine Nitrite Negative (NEG) Urine Bilirubin Negative (NEG) Urine Urobilinogen Dipstick 1.0 mg/dL (0.2 mg/dL) Urine Leukocyte Esterase Small (NEG) Urine RBC Occ /HPF (0-2) Urine WBC 5-10 /HPF (0-4) Urine Squamous Epithelial Cells Few /LPF Urine Bacteria Many /HPF (0-FEW) Urine Mucus Slight /LPF Test 02/08/17 21:11 02/09/17 03:15 02/09/17 08:19 02/09/17 09:51 Glucose (Fingerstick) 132 mg/dL (70-99) 67 mg/dL (70-99) 169 mg/dL (70-99) White Blood Count 9.7 x10^3/uL (4.0-11.0) Red Blood Count 3.31 x10^6/uL (3.50-5.40) Hemoglobin 9.5 g/dL (12.0-15.5) Hematocrit 29.1 % (36.0-47.0) Mean Corpuscular Volume 88 fL (79-100) Mean Corpuscular Hemoglobin 29 pg (25-35) Mean Corpuscular Hemoglobin Concent 33 g/dL (31-37) Red Cell Distribution Width 15.5 % (11.5-14.5) Platelet Count 124 x10^3/uL (140-400) Neutrophils (%) (Auto) 68 % (31-73) Lymphocytes (%) (Auto) 19 % (24-48) Monocytes (%) (Auto) 12 % (0-9) Eosinophils (%) (Auto) 0 % (0-3) Basophils (%) (Auto) 0 % (0-3) Neutrophils # (Auto) 6.6 x10^3uL (1.8-7.7) Lymphocytes # (Auto) 1.9 x10^3/uL (1.0-4.8) Monocytes # (Auto) 1.2 x10^3/uL (0.0-1.1) Eosinophils # (Auto) 0.0 x10^3/uL (0.0-0.7) Basophils # (Auto) 0.0 x10^3/uL (0.0-0.2) Sodium Level 144 mmol/L (136-145) Potassium Level 3.7 mmol/L (3.5-5.1) Chloride Level 106 mmol/L (98-107) Carbon Dioxide Level 29 mmol/L (21-32) Anion Gap 9 (6-14) Blood Urea Nitrogen 48 mg/dL (7-20) Creatinine 3.1 mg/dL (0.6-1.0) Estimated GFR (Cockcroft-Gault) 14.9 Glucose Level 86 mg/dL (70-99) Calcium Level 8.3 mg/dL (8.5-10.1) Phosphorus Level 5.0 mg/dL (2.6-4.7) Magnesium Level 1.6 mg/dL (1.8-2.4) Albumin 1.9 g/dL (3.4-5.0) Test 02/09/17 11:38 02/09/17 17:12 02/09/17 20:29 02/10/17 04:15 Glucose (Fingerstick) 174 mg/dL (70-99) 261 mg/dL (70-99) 252 mg/dL (70-99) White Blood Count 8.7 x10^3/uL (4.0-11.0) Red Blood Count 3.13 x10^6/uL (3.50-5.40) Hemoglobin 9.0 g/dL (12.0-15.5) Hematocrit 27.6 % (36.0-47.0) Mean Corpuscular Volume 88 fL (79-100) Mean Corpuscular Hemoglobin 29 pg (25-35) Mean Corpuscular Hemoglobin Concent 33 g/dL (31-37) Red Cell Distribution Width 15.6 % (11.5-14.5) Platelet Count 127 x10^3/uL (140-400) Neutrophils (%) (Auto) 65 % (31-73) Lymphocytes (%) (Auto) 22 % (24-48) Monocytes (%) (Auto) 10 % (0-9) Eosinophils (%) (Auto) 3 % (0-3) Basophils (%) (Auto) 1 % (0-3) Neutrophils # (Auto) 5.7 x10^3uL (1.8-7.7) Lymphocytes # (Auto) 1.9 x10^3/uL (1.0-4.8) Monocytes # (Auto) 0.8 x10^3/uL (0.0-1.1) Eosinophils # (Auto) 0.2 x10^3/uL (0.0-0.7) Basophils # (Auto) 0.0 x10^3/uL (0.0-0.2) Sodium Level 141 mmol/L (136-145) Potassium Level 3.5 mmol/L (3.5-5.1) Chloride Level 105 mmol/L (98-107) Carbon Dioxide Level 31 mmol/L (21-32) Anion Gap 5 (6-14) Blood Urea Nitrogen 60 mg/dL (7-20) Creatinine 3.6 mg/dL (0.6-1.0) Estimated GFR (Cockcroft-Gault) 12.6 Glucose Level 150 mg/dL (70-99) Calcium Level 8.1 mg/dL (8.5-10.1) Phosphorus Level 4.7 mg/dL (2.6-4.7) Albumin 1.8 g/dL (3.4-5.0) Test 02/10/17 07:34 02/10/17 12:03 Glucose (Fingerstick) 87 mg/dL (70-99) 77 mg/dL (70-99) Laboratory Tests Test 02/09/17 17:12 02/09/17 20:29 02/10/17 04:15 02/10/17 07:34 Glucose (Fingerstick) 261 mg/dL (70-99) 252 mg/dL (70-99) 87 mg/dL (70-99) White Blood Count 8.7 x10^3/uL (4.0-11.0) Red Blood Count 3.13 x10^6/uL (3.50-5.40) Hemoglobin 9.0 g/dL (12.0-15.5) Hematocrit 27.6 % (36.0-47.0) Mean Corpuscular Volume 88 fL (79-100) Mean Corpuscular Hemoglobin 29 pg (25-35) Mean Corpuscular Hemoglobin Concent 33 g/dL (31-37) Red Cell Distribution Width 15.6 % (11.5-14.5) Platelet Count 127 x10^3/uL (140-400) Neutrophils (%) (Auto) 65 % (31-73) Lymphocytes (%) (Auto) 22 % (24-48) Monocytes (%) (Auto) 10 % (0-9) Eosinophils (%) (Auto) 3 % (0-3) Basophils (%) (Auto) 1 % (0-3) Neutrophils # (Auto) 5.7 x10^3uL (1.8-7.7) Lymphocytes # (Auto) 1.9 x10^3/uL (1.0-4.8) Monocytes # (Auto) 0.8 x10^3/uL (0.0-1.1) Eosinophils # (Auto) 0.2 x10^3/uL (0.0-0.7) Basophils # (Auto) 0.0 x10^3/uL (0.0-0.2) Sodium Level 141 mmol/L (136-145) Potassium Level 3.5 mmol/L (3.5-5.1) Chloride Level 105 mmol/L (98-107) Carbon Dioxide Level 31 mmol/L (21-32) Anion Gap 5 (6-14) Blood Urea Nitrogen 60 mg/dL (7-20) Creatinine 3.6 mg/dL (0.6-1.0) Estimated GFR (Cockcroft-Gault) 12.6 Glucose Level 150 mg/dL (70-99) Calcium Level 8.1 mg/dL (8.5-10.1) Phosphorus Level 4.7 mg/dL (2.6-4.7) Albumin 1.8 g/dL (3.4-5.0) Test 02/10/17 12:03 Glucose (Fingerstick) 77 mg/dL (70-99) Microbiology 02/08/17 Gram Stain - Final, Complete Medications Current Medications Zolpidem Tartrate (Ambien) 5 mg PRN QHS PRN PO INSOMNIA, MAY REPEAT IN 1HR Last administered on 02/09/17 21:49; Start 01/29/17 at 18:45 Oxycodone HCl (Roxicodone) 5 mg PRN Q3HRS PRN PO BREAKTHROUGH PAIN Last administered on 02/08/17 09:18; Start 01/29/17 at 18:45 Acetaminophen (Tylenol) 650 mg PRN Q6HRS PRN PO Headaches, Temp > 101.5F Last administered on 02/08/17 21:24; Start 01/29/17 at 18:45 Ibuprofen (Motrin) 400 mg PRN Q6HRS PRN PO MILD PAIN; Start 01/29/17 at 18:45; Stop 02/05/17 at 09:24; Status DC Docusate Sodium (Colace) 100 mg BID PO Last administered on 02/01/17 08:42; Start 01/29/17 at 21:00; Stop 02/02/17 at 11:08; Status DC Magnesium Hydroxide (Milk Of Magnesia) 2,400 mg PRN Q12HR PRN PO CONSTIPATION; Start 01/29/17 at 18:45 Lactulose 20 gm PRN Q12HR PRN PO CONSTIPATION; Start 01/29/17 at 18:45 Bisacodyl (Dulcolax Supp) 10 mg PRN DAILY PRN ME CONSTIPATION; Start 01/29/17 at 18:45; Stop 02/02/17 at 11:08; Status DC Enoxaparin Sodium (Lovenox 40mg Syringe) 40 mg Q12HR SQ Last administered on 21:09; Start 01/29/17 at 22:00; Stop 01/31/17 at 07:12; Status DC Alprazolam (Xanax) 0.25 mg QHS PRN PO ANXIETY / AGITATION Last administered on 02/09/17 21:49; Start 01/29/17 at 18:45 Carvedilol (Coreg) 12.5 mg BIDWMEALS PO Last administered on 01/29/17 21:51; Start 01/29/17 at 19:00; Stop 01/30/17 at 11:28; Status DC Cyclobenzaprine HCl (Flexeril) 10 mg BID PO Last administered on 02/09/17 21:50 ; Start 01/29/17 at 21:00 Fluconazole (Diflucan) 100 mg DAILY PO Last administered on 02/10/17 09:38; Start 01/30/17 at 09:00 Furosemide (Lasix) 40 mg BID92 PO ; Start 01/30/17 at 09:00; Stop 01/30/17 at 09 :00; Status DC Hydralazine HCl (Apresoline) 25 mg BID PO Last administered on 02/09/17 08:30; Start 01/29/17 at 21:00 Acetaminophen/ Hydrocodone Bitart (Lortab 5/325) 1 tab PRN Q6HRS PRN PO MILD PAIN Last administered on 02/09/17 21:52; Start 01/29/17 at 18:45 Lisinopril (Prinivil) 40 mg DAILY PO Last administered on 02/09/17 08:31; Start 01/30/17 at 09:00 Oxycodone/ Acetaminophen (Percocet 10/325) 1 tab PRN Q6HRS PRN PO MODERATE- SEVERE PAIN Last administered on 02/10/17 13:11; Start 01/29/17 at 18:45 Tramadol HCl (Ultram) 100 mg BID PO Last administered on 01/29/17 21:50; Start 01/29/17 at 21:00; Stop 01/30/17 at 11:51; Status DC Vitamin D (Vitamin D3) 5,000 unit DAILY PO Last administered on 02/10/17 09:38 ; Start 01/30/17 at 09:00 Gabapentin (Neurontin) 300 mg PRN DAILY PRN PO NERVE PAIN Last administered on 02/09/17 21:51; Start 01/29/17 at 21:00 Glimepiride (Amaryl) 4 mg BIDWMEALS PO Last administered on 02/08/17 09:10; Start 01/30/17 at 09:00; Stop 02/09/17 at 09:09; Status DC Insulin Detemir (Levemir) 40 units QHS SQ Last administered on 01/29/17 22:01 ; Start 01/29/17 at 21:00; Stop 01/30/17 at 11:51; Status DC Insulin Aspart (NovoLOG) 50 units TIDAC SQ Last administered on 01/29/17 22:00 ; Start 01/29/17 at 19:00; Stop 01/30/17 at 11:51; Status DC Non-Formulary Medication 1.2 mg DAILY SQ ; Start 01/30/17 at 09:00; Stop at 09:00; Status DC Pantoprazole Sodium (Protonix) 40 mg DAILYAC PO Last administered on 02/10/17 09:38; Start 01/30/17 at 07:30 Potassium Chloride (Klor-Con) 10 meq DAILYWBKFT PO Last administered on 08:59; Start 01/30/17 at 08:00; Stop 02/05/17 at 09:21; Status DC Insulin Aspart (NovoLOG) 0-9 UNITS TIDWMEALS SQ Last administered on 02/09/17 18:05; Start 01/30/17 at 08:00 Dextrose (Dextrose 50%-Water Syringe) 12.5 gm PRN Q15MIN PRN IV SEE COMMENTS; Start 01/29/17 at 18:45 Furosemide (Lasix) 40 mg 1X ONCE IVP Last administered on 01/29/17 21:52; Start 01/29/17 at 21:00; Stop 01/29/17 at 21:01; Status DC Furosemide (Lasix) 40 mg BID92 IVP Last administered on 01/30/17 11:01; Start 01/30/17 at 09:00; Stop 01/30/17 at 11:28; Status DC Lidocaine HCl (Xylocaine-Mpf 1% Vial) 2 ml STK-MED ONCE .ROUTE ; Start 01/29/17 at 20:37; Stop 01/29/17 at 20:38; Status DC Dextrose 250 ml @ 1,000 mls/hr 1X ONCE IV ; Start 01/30/17 at 07:45; Stop at 07:59; Status DC Glucose (Insta-Glucose) 15 gm PRN Q15MIN PRN PO LOW BLOOD SUGAR Last administered on 01/30/17 07:55; Start 01/30/17 at 08:00 Glucose (Insta-Glucose) 15 gm STK-MED ONCE .ROUTE ; Start 01/30/17 at 07:52; Stop 01/30/17 at 07:53; Status DC Lidocaine HCl (Xylocaine-Mpf 1% Vial) 2 ml STK-MED ONCE .ROUTE ; Start 01/29/17 at 21:00; Stop 01/30/17 at 09:01; Status DC Furosemide (Lasix) 40 mg DAILY IVP Last administered on 02/03/17 08:39; Start 01/31/17 at 09:00; Stop 02/03/17 at 15:50; Status DC Aspirin (Ecotrin) 81 mg DAILYWBKFT PO Last administered on 02/10/17 09:38; Start 01/30/17 at 12:30 Insulin Detemir (Levemir) 25 units QHS SQ Last administered on 02/02/17 20:54 ; Start 01/30/17 at 21:00; Stop 02/03/17 at 11:09; Status DC Gabapentin (Neurontin) 400 mg BID PO Last administered on 02/10/17 09:38; Start 01/31/17 at 09:00 Gabapentin (Neurontin) 100 mg 1X ONCE PO Last administered on 01/31/17 01:56 ; Start 01/31/17 at 02:00; Stop 01/31/17 at 02:01; Status DC Enoxaparin Sodium (Lovenox 40mg Syringe) 40 mg QHS SQ Last administered on 02/03 20:32; Start 01/31/17 at 21:00; Stop 02/04/17 at 09:32; Status DC Methylprednisolone Acetate (DEPO-Medrol 40MG VIAL) 40 mg 1X ONCE IM Last administered on 02/01/17 13:30; Start 02/01/17 at 13:30; Stop 02/01/17 at 13:31 ; Status DC Lidocaine/Sodium Bicarbonate (Buffered Lidocaine 1%) 20 ml 1X ONCE IJ Last administered on 02/01/17 13:30; Start 02/01/17 at 13:30; Stop 02/01/17 at 13:31 ; Status DC Labetalol HCl (Normodyne) 20 mg PRN Q2HR PRN IVP HYPERTENSION, SEE COMMENTS Last administered on 02/01/17 23:59; Start 02/01/17 at 23:30; Stop 02/03/17 at 15:47; Status DC Insulin Aspart (NovoLOG) 10 units TIDAC SQ Last administered on 02/06/17 07:30 ; Start 02/02/17 at 11:30; Stop 02/07/17 at 13:06; Status DC Insulin Aspart (NovoLOG VIAL) 15 unit 1X ONCE SQ ; Start 02/02/17 at 08:45; Stop 02/02/17 at 08:46; Status Cancel Insulin Aspart (NovoLOG) 15 units 1X ONCE SQ Last administered on 02/02/17 08 :42; Start 02/02/17 at 08:45; Stop 02/02/17 at 08:46; Status DC Loperamide HCl (Imodium) 2 mg PRN Q15MIN PRN PO DIARRHEA Last administered on 09:43; Start 02/02/17 at 11:15; Stop 02/03/17 at 12:31; Status DC Loperamide HCl (Imodium) 2 mg PRN Q15MIN PRN PO DIARRHEA Last administered on 01:35; Start 02/02/17 at 12:45; Stop 02/04/17 at 14:00; Status DC Insulin Detemir (Levemir) 35 units QHS SQ Last administered on 02/06/17 20:58; Start 02/03/17 at 21:00; Stop 02/07/17 at 13:06; Status DC Metoprolol Tartrate (Lopressor) 12.5 mg BID PO Last administered on 02/10/17 09 :42; Start 02/03/17 at 21:00 Furosemide (Lasix) 60 mg DAILY PO Last administered on 02/04/17 08:57; Start 02/04/17 at 09:00; Stop 02/04/17 at 14:34; Status DC Heparin Sodium (Porcine) (Heparin Sq) 5,000 unit Q8HRS SQ Last administered on 02/09/17 21:53; Start 02/04/17 at 14:00 Loperamide HCl (Imodium) 2 mg TID PO Last administered on 02/07/17 20:32; Start 02/04/17 at 14:00; Stop 02/09/17 at 10:50; Status DC Magnesium Sulfate/ Dextrose 50 ml @ 25 mls/hr PRN DAILY PRN IV for Mag < 1.7 on am labs; Start 02/04/17 at 14:30; Stop 02/05/17 at 10:05; Status DC Furosemide 100 mg/ Sodium Chloride 100 ml @ 0 mls/hr CONT PRN IV SEE I/O RECORD Last administered on 02/04/17 15:59; Start 02/04/17 at 14:30; Stop at 09:27; Status DC Acetylcysteine (Mucomyst 20% Oral Solution) 1,200 mg BID PO Last administered on 02/06/17 20:49; Start 02/05/17 at 09:00; Stop 02/07/17 at 08:59; Status DC Sodium Polystyrene Sulfonate (Kayexalate) 30 gm 1X ONCE PO Last administered on 02/06/17 09:49; Start 02/06/17 at 09:30; Stop 02/06/17 at 09:31; Status DC Dextrose 10 ml 1X ONCE IV Last administered on 02/06/17 09:56; Start 02/06/17 at 09:30; Stop 02/06/17 at 09:31; Status DC Insulin Human Regular (NovoLIN R VIAL) 10 unit 1X ONCE IV Last administered on 02/06/17 09:59; Start 02/06/17 at 09:30; Stop 02/06/17 at 09:31; Status DC Heparin Sodium/ Sodium Chloride 500 ml @ As Directed STK-MED ONCE .ROUTE ; Start 02/06/17 at 10:10; Stop 02/06/17 at 10:11; Status DC Lidocaine HCl 20 ml STK-MED ONCE .ROUTE ; Start 02/06/17 at 10:10; Stop 02/06/17 at 10:11; Status DC Fentanyl Citrate (Fentanyl 2ml Vial) 100 mcg STK-MED ONCE .ROUTE ; Start at 10:39; Stop 02/06/17 at 10:40; Status DC Midazolam HCl (Versed) 2 mg STK-MED ONCE .ROUTE ; Start 02/06/17 at 10:39; Stop 02/06/17 at 10:40; Status DC Heparin Sodium/ Sodium Chloride 1,000 unit 1X ONCE IART Last administered on 11:10; Start 02/06/17 at 11:15; Stop 02/06/17 at 11:16; Status DC Midazolam HCl (Versed) 1 mg 1X ONCE IV Last administered on 02/06/17 11:11; Start 02/06/17 at 11:15; Stop 02/06/17 at 11:16; Status DC Fentanyl Citrate (Fentanyl 2ml Vial) 50 mcg 1X ONCE IV Last administered on 11:11; Start 02/06/17 at 11:15; Stop 02/06/17 at 11:16; Status DC Lidocaine HCl 20 ml 1X ONCE IJ Last administered on 02/06/17 11:10; Start 02/06 at 11:15; Stop 02/06/17 at 11:16; Status DC Sodium Chloride (Normal Saline Flush) 3 ml QSHIFT PRN IV AFTER MEDS AND BLOOD DRAWS; Start 02/06/17 at 11:15 Nitroglycerin (Nitrostat) 0.4 mg PRN Q5MIN PRN SL CHEST PAIN; Start 02/06/17 at 11:15 Iron Sucrose 200 mg/Sodium Chloride 110 ml @ 55 mls/hr 3X/WEEK IV Last administered on 02/06/17 16:30; Start 02/06/17 at 13:00; Stop 02/16/17 at 10:59 Furosemide 100 mg/ Sodium Chloride 100 ml @ 0 mls/hr CONT PRN IV SEE I/O RECORD Last administered on 02/10/17 12:59; Start 02/06/17 at 13:30 Insulin Detemir (Levemir) 20 units QHS SQ ; Start 02/07/17 at 21:00; Stop at 09:08; Status DC Furosemide (Lasix) 20 mg 1X ONCE IVP ; Start 02/07/17 at 13:30; Stop 02/07/17 at 13:31; Status Cancel Diclofenac Sodium (Voltaren) 1 katia BID TP Last administered on 02/10/17 09:43; Start 02/08/17 at 13:30 Lidocaine HCl 16 ml/Sodium Bicarbonate 4 meq/ Miscellaneous 20 ml @ 20 mls/hr 1X ONCE ID ; Start 02/09/17 at 06:00; Stop 02/09/17 at 06:59; Status UNV Lidocaine HCl 10 ml 1X ONCE INJ Last administered on 02/08/17 15:44; Start 02/08/17 at 14:00; Stop 02/08/17 at 14:01; Status DC Amlodipine Besylate (Norvasc) 10 mg DAILY PO Last administered on 02/09/17 08: 30; Start 02/09/17 at 09:00 Amlodipine Besylate (Norvasc) 10 mg 1X ONCE PO Last administered on 02/08/17 15:43; Start 02/08/17 at 16:00; Stop 02/08/17 at 16:01; Status DC Insulin Detemir (Levemir) 12 units QHS SQ Last administered on 02/09/17 21:54; Start 02/09/17 at 21:00 Ceftriaxone Sodium 1 gm/ Sodium Chloride 50 ml @ 100 mls/hr Q24H IV Last administered on 02/09/17 11:41; Start 02/09/17 at 10:00; Stop 02/10/17 at 09:25; Status DC Loperamide HCl (Imodium) 2 mg PRN TID PRN PO if diarrhea recurs; Start 02/09/17 at 11:00 Lidocaine HCl (Xylocaine-Mpf 1% Vial) 2 ml STK-MED ONCE .ROUTE ; Start 02/10/17 at 06:35; Stop 02/10/17 at 06:36; Status DC Prednisone (Prednisone) 60 mg 1X ONCE PO Last administered on 02/10/17 09:53; Start 02/10/17 at 09:30; Stop 02/10/17 at 09:41; Status DC Prednisone (Prednisone) 40 mg DAILY PO ; Start 02/11/17 at 09:00 Colchicine (Colcrys) 1.2 mg 1X ONCE PO Last administered on 02/10/17 09:53; Start 02/10/17 at 09:30; Stop 02/10/17 at 09:41; Status DC Active Scripts Active Xanax (Alprazolam) 0.25 Mg Tablet 0.25 Mg PO QHS PRN Oxycodone-Acetaminophen 10-325 (Oxycodone Hcl/Acetaminophen) 1 Each Tablet 1 Tab PO PRN Q6HRS PRN Hydralazine Hcl 25 Mg Tablet 25 Mg PO BID Carvedilol 12.5 Mg Tablet 12.5 Mg PO BIDWMEALS Fluconazole 100 Mg Tablet 1 Tab PO DAILY Lasix (Furosemide) 40 Mg Tablet 40 Mg PO BID Reported Lisinopril 40 Mg Tablet 1 Tab PO DAILY Humalog (Insulin Lispro) 100 Unit/1 Ml Vial 50 Unit SQ TID Lortab 5-325 mg Tablet (Hydrocodone/Acetaminophen) 1 Each Tablet 1 Tab PO PRN Q6HRS PRN Levemir (Insulin Detemir) 100 Unit/1 Ml Vial 40 Unit SQ HS Victoza 3-Devon (Liraglutide) 0.6 Mg/0.1 Ml Pen.injctr 1.2 Mg SQ DAILY Gabapentin 300 Mg Capsule 1 Cap PO DAILY PRN Vitamin D3 (Cholecalciferol (Vitamin D3)) 5,000 Unit Tablet 1 Tab PO DAILY Glimepiride 4 Mg Tablet 1 Tab PO BID Tramadol Hcl 50 Mg Tablet 2 Tab PO BID Cyclobenzaprine Hcl 10 Mg Tablet 1 Tab PO BID Klor-Con 10 (Potassium Chloride) 10 Meq Tablet.er 1 Tab PO DAILY Omeprazole 20 Mg Capsule. 1 Cap PO DAILY Vitals/I & O Vital Sign - Last 24 Hours 02/09/17 02/09/17 02/09/17 02/09/17 14:37 15:30 19:14 20:15 Temp 98.6 98.7 98.6 98.7 Pulse 73 91 Resp 19 20 B/P (MAP) 81/46 (58) 102/42 (62) 88/44 (59) Pulse Ox 96 94 O2 Delivery Nasal Cannula Nasal Cannula Nasal Cannula O2 Flow Rate 2.0 2.0 02/09/17 02/09/17 02/09/17 02/10/17 21:00 21:00 22:51 02:37 Temp 98.8 98.8 98.8 98.8 Pulse 91 94 100 85 Resp 18 B/P (MAP) 88/44 88/44 111/59 (76) 102/56 (71) Pulse Ox 96 95 O2 Delivery Nasal Cannula Nasal Cannula O2 Flow Rate 2.0 2.0 02/10/17 02/10/17 02/10/17/6/17 07:00 08:00 09:00 09:00 Temp 98.0 98.0 Pulse 95 Resp 16 B/P (MAP) 103/57 (72) 103/57 103/57 Pulse Ox 95 O2 Delivery Nasal Cannula Nasal Cannula O2 Flow Rate 2.0 02/10/17 02/10/17 02/10/17 02/10/17 09:00 09:42 11:33 13:11 Temp 97.7 97.7 Pulse 89 76 Resp 22 B/P (MAP) 103/57 91/54 (66) Pulse Ox 97 O2 Delivery Nasal Cannula Nasal Cannula O2 Flow Rate 2.0 Intake and Output 02/09/17 02/09/17 02/10/17 15:00 23:00 07:00 Intake Total 810 ml 200 ml Output Total 700 ml 210 ml Balance 110 ml -10 ml DHRUV LACEY MD Feb 10, 2017 13:52
--- NOTE | 2017-02-10 17:26 | PDOC ---
CARDIOLOGY PROGRESS NOTE SUBJECTIVE: Patient is slightly more confused this morning and sleepy. Otherwise denies any chest pain. Her dyspnea is much improved. Her edema is also significantly improved. She is still quite weak. OBJECTIVE: Vital SIgns: Vital Signs Date Time Temp Pulse Resp B/P (MAP) Pulse Ox O2 Delivery O2 Flow Rate FiO2 02/10/17 15:05 98.7 96 20 104/53 (70) 95 Nasal Cannula 98.7 02/10/17 14:11 2.0 I & O Even fluid balance Objective: In general she is sleepy but alert and oriented to self and place but not time. She has normal heart tones except for an irregular heart rhythm. Lungs are fairly clear to auscultation although distant breath sounds are appreciated. Abdomen is obese nontender Bilateral lower extremities show skin changes consistent with chronic venous disease. She has had significant reduction in her lower extremity edema. Neurologically there are no focal deficits. Muscular skeletal she has significant lower extent B weakness. CURRENT MEDICATIONS: Lasix drip has been discontinued given her elevated creatinine Aspirin and metoprolol noted On colchicine DIAGNOSTIC TESTING: Creatinine 3.6 up from 3.1 ASSESSMENT: 1. Acute on chronic diastolic heart failure 2. Acute on chronic kidney disease 3. Atrial fibrillation 4. Anemia Problems: PLAN: 1. Stop Lasix drip. No further diuresis at this time. Allow patient to eat and monitor urine output. 2. Hold lisinopril and hydralazine. Continue metoprolol. 3. Will defer to primary service with regards to colchicine dosing but given her renal sufficiency likely should be every other day. 4. If needed for BP, will start Hydral and Imdur. We'll follow along closely. LEON GARDNER MD Feb 10, 2017 17:26
[2017-02-10] MEDS: INSULIN DETEMIR 300 UNITS/3 ML INSULN.PEN. SQ SCH (21:02)
--- NOTE | 2017-02-10 23:50 | PDOC ---
Provider Note Provider Note RENAL F/U : SID S : No active CP or SOA O : VSS Afebrile. Neck : Supple Lungs : Non labored. CVS : RRR Abd : Benign in appearance, without distention. Ext : Trace edema Neuro : Awake. Labs reviewed. A/P : ARF/ATN EDEMA CKD III CHF. Cr higher. DC LASIX gtt. Diuresed well. Labs. CPM. ALEXANDRA LAU MD Feb 10, 2017 23:50
[2017-02-11 04:25] LABS: ALBUMIN 1.8 g/dL (3.4-5.0); CALCIUM 8.5 mg/dL (8.5-10.1); CREATININE 4.3 mg/dL (0.6-1.0); GFR 10.2; PHOSPHORUS 6.5 mg/dL (2.6-4.7); POTASSIUM 4.7 mmol/L (3.5-5.1)
[2017-02-11] MEDS: HEPARIN PF for SUB-Q USE 5,000 UNIT/0.5 ML VIAL. SQ SCH ×3 (06:11→20:57)
[2017-02-11 07:00] VITALS: BP 96/50
[2017-02-11] MEDS: ASPIRIN ENTERIC COATED 81 MG TABLET.DR. PO SCH (08:49)
[2017-02-11] MEDS: DICLOFENAC SODIUM 1% TOPICAL GEL 100GM TUBE. TP SCH ×2 (08:49→20:56)
[2017-02-11] MEDS: PANTOPRAZOLE 40 MG TABLET.DR. PO SCH (08:49)
[2017-02-11] MEDS: predniSONE 20 MG TABLET PO SCH (08:50)
[2017-02-11] MEDS: CHOLECALCIFEROL (VITAMIN D3) 5,000 UNIT CAPSULE PO SCH (08:50)
[2017-02-11] MEDS: FLUCONAZOLE 100 MG TABLET. PO SCH (08:51)
[2017-02-11] MEDS: amLODIPine BESYLATE 10 MG TABLET PO SCH (08:51)
[2017-02-11] MEDS: CYCLOBENZAPRINE 10 MG TABLET. PO SCH ×2 (08:52→20:55)
[2017-02-11] MEDS: GABAPENTIN 400 MG CAPSULE. PO SCH ×2 (08:52→20:55)
[2017-02-11] MEDS: hydrALAZINE 25 MG TABLET PO SCH (08:52)
[2017-02-11] MEDS: IRON SUCROSE COMPLEX 200 MG in IV NORMAL SALINE 100ML 100 ML IV SCH (09:00)
[2017-02-11] MEDS ORDERED: COLCHICINE 0.6 MG TABLET PO SCH (09:00)
--- NOTE | 2017-02-11 09:18 | PDOC ---
PROGRESS NOTES Chief Complaint Chief Complaint CHF exacerbation ASSESSMENT AND PLAN: 1. CHF exacerbation: echo with EF 60-65%, pA pressure 61. s/p RHC 02/06/17- normal. clinically improving. off lasix gtt (resultant JOSE) 2. HTN: well controlled on home meds (JOVANNA-I, norvasc) 3. Lymphedema: chronic 4. JOSE: oliguric. poss 2/2 diarrhea and lasix. nephrology following 5. CKD: underlying; baseline creat 6. DM2: poorly controlled at home (HgbA1c 11.9), brittle control here. currently high 2/2 steroid use. cont levemir, ISS 7. Gout: acute in R knee, s/p tap. stop colchris with current JOSE, is on steroids. 8. Pain control: Oxy 5-10 PRN 9. Anemia: chronic dz: received venofer x3. continue low dose PO 10. Prophylaxis: Heparin SQ, PPI 11. Morbid obesity 12. Limited mobility, wheelchair-bound. History of Present Illness History of Present Illness knees feel a little better today. worried about elevated BG Vitals Vitals Vital Signs Date Time Temp Pulse Resp B/P (MAP) Pulse Ox O2 Delivery O2 Flow Rate FiO2 02/11/17 07:00 97.2 72 17 96/50 (65) 95 Nasal Cannula 2.0 97.2 Physical Exam General: Alert, Oriented X3, Cooperative, No acute distress Heart: Regular rate Lungs: Clear, Other (no wheezing) Abdomen: Normal bowel sounds, Soft, No tenderness Extremities: Normal pulses, Other (legs in braces, no erythema/bruising at knees) Skin: No significant lesion Labs LABS Laboratory Tests Test 02/10/17 12:03 02/10/17 17:17 02/10/17 20:50 02/11/17 03:25 Glucose (Fingerstick) 77 mg/dL (70-99) 223 mg/dL (70-99) 296 mg/dL (70-99) Sodium Level 141 mmol/L (136-145) Potassium Level 4.7 mmol/L (3.5-5.1) Chloride Level 104 mmol/L (98-107) Carbon Dioxide Level 28 mmol/L (21-32) Anion Gap 9 (6-14) Blood Urea Nitrogen 72 mg/dL (7-20) Creatinine 4.3 mg/dL (0.6-1.0) Estimated GFR (Cockcroft-Gault) 10.2 Glucose Level 356 mg/dL (70-99) Calcium Level 8.5 mg/dL (8.5-10.1) Phosphorus Level 6.5 mg/dL (2.6-4.7) Albumin 1.8 g/dL (3.4-5.0) Test 02/11/17 08:00 Glucose (Fingerstick) 381 mg/dL (70-99) EDMAR BOLAÑOS MD Feb 11, 2017 09:18
[2017-02-11] MEDS ORDERED: LIDOCAINE 1% 1 ML SYRINGE. ONE (09:38)
--- NOTE | 2017-02-11 09:53 | PDOC ---
PROGRESS NOTES Subjective Subjective She admits less knee pain with yard hand knee braces. Objective Objective Vital Signs Date Time Temp Pulse Resp B/P (MAP) Pulse Ox O2 Delivery O2 Flow Rate FiO2 02/11/17 08:51 72 96/50 02/11/17 08:00 Nasal Cannula 2.0 02/11/17 07:00 97.2 17 95 97.2 Intake and Output 02/11/17 07:00 Intake Total 740 ml Output Total 650 ml Balance 90 ml Intake Oral 740 ml Output Urine Total 650 ml Physical Exam Physical Exam She got up with braces on to bedside chair with some help from occupational therapy.The braces needs to be done more firmly while still supine in bed, so they don't come lower down while up. Plan Plan of Care To check with orthopedics about consideration of right TKA when medically stable. Comment Review of Relevant I have reviewed the following items kai (where applicable) has been applied. Labs Laboratory Tests Test 02/09/17 09:51 02/09/17 11:38 02/09/17 17:12 02/09/17 20:29 Glucose (Fingerstick) 169 mg/dL (70-99) 174 mg/dL (70-99) 261 mg/dL (70-99) 252 mg/dL (70-99) Test 02/10/17 04:15 02/10/17 07:34 02/10/17 12:03 02/10/17 17:17 White Blood Count 8.7 x10^3/uL (4.0-11.0) Red Blood Count 3.13 x10^6/uL (3.50-5.40) Hemoglobin 9.0 g/dL (12.0-15.5) Hematocrit 27.6 % (36.0-47.0) Mean Corpuscular Volume 88 fL (79-100) Mean Corpuscular Hemoglobin 29 pg (25-35) Mean Corpuscular Hemoglobin Concent 33 g/dL (31-37) Red Cell Distribution Width 15.6 % (11.5-14.5) Platelet Count 127 x10^3/uL (140-400) Neutrophils (%) (Auto) 65 % (31-73) Lymphocytes (%) (Auto) 22 % (24-48) Monocytes (%) (Auto) 10 % (0-9) Eosinophils (%) (Auto) 3 % (0-3) Basophils (%) (Auto) 1 % (0-3) Neutrophils # (Auto) 5.7 x10^3uL (1.8-7.7) Lymphocytes # (Auto) 1.9 x10^3/uL (1.0-4.8) Monocytes # (Auto) 0.8 x10^3/uL (0.0-1.1) Eosinophils # (Auto) 0.2 x10^3/uL (0.0-0.7) Basophils # (Auto) 0.0 x10^3/uL (0.0-0.2) Sodium Level 141 mmol/L (136-145) Potassium Level 3.5 mmol/L (3.5-5.1) Chloride Level 105 mmol/L (98-107) Carbon Dioxide Level 31 mmol/L (21-32) Anion Gap 5 (6-14) Blood Urea Nitrogen 60 mg/dL (7-20) Creatinine 3.6 mg/dL (0.6-1.0) Estimated GFR (Cockcroft-Gault) 12.6 Glucose Level 150 mg/dL (70-99) Calcium Level 8.1 mg/dL (8.5-10.1) Phosphorus Level 4.7 mg/dL (2.6-4.7) Albumin 1.8 g/dL (3.4-5.0) Glucose (Fingerstick) 87 mg/dL (70-99) 77 mg/dL (70-99) 223 mg/dL (70-99) Test 02/10/17 20:50 02/11/17 03:25 02/11/17 08:00 Glucose (Fingerstick) 296 mg/dL (70-99) 381 mg/dL (70-99) Sodium Level 141 mmol/L (136-145) Potassium Level 4.7 mmol/L (3.5-5.1) Chloride Level 104 mmol/L (98-107) Carbon Dioxide Level 28 mmol/L (21-32) Anion Gap 9 (6-14) Blood Urea Nitrogen 72 mg/dL (7-20) Creatinine 4.3 mg/dL (0.6-1.0) Estimated GFR (Cockcroft-Gault) 10.2 Glucose Level 356 mg/dL (70-99) Calcium Level 8.5 mg/dL (8.5-10.1) Phosphorus Level 6.5 mg/dL (2.6-4.7) Albumin 1.8 g/dL (3.4-5.0) Laboratory Tests Test 02/10/17 12:03 02/10/17 17:17 02/10/17 20:50 02/11/17 03:25 Glucose (Fingerstick) 77 mg/dL (70-99) 223 mg/dL (70-99) 296 mg/dL (70-99) Sodium Level 141 mmol/L (136-145) Potassium Level 4.7 mmol/L (3.5-5.1) Chloride Level 104 mmol/L (98-107) Carbon Dioxide Level 28 mmol/L (21-32) Anion Gap 9 (6-14) Blood Urea Nitrogen 72 mg/dL (7-20) Creatinine 4.3 mg/dL (0.6-1.0) Estimated GFR (Cockcroft-Gault) 10.2 Glucose Level 356 mg/dL (70-99) Calcium Level 8.5 mg/dL (8.5-10.1) Phosphorus Level 6.5 mg/dL (2.6-4.7) Albumin 1.8 g/dL (3.4-5.0) Test 02/11/17 08:00 Glucose (Fingerstick) 381 mg/dL (70-99) Microbiology 02/08/17 Gram Stain - Final, Complete Medications Current Medications Zolpidem Tartrate (Ambien) 5 mg PRN QHS PRN PO INSOMNIA, MAY REPEAT IN 1HR Last administered on 02/09/17 21:49; Start 01/29/17 at 18:45 Oxycodone HCl (Roxicodone) 5 mg PRN Q3HRS PRN PO BREAKTHROUGH PAIN Last administered on 02/08/17 09:18; Start 01/29/17 at 18:45 Acetaminophen (Tylenol) 650 mg PRN Q6HRS PRN PO Headaches, Temp > 101.5F Last administered on 02/08/17 21:24; Start 01/29/17 at 18:45 Ibuprofen (Motrin) 400 mg PRN Q6HRS PRN PO MILD PAIN; Start 01/29/17 at 18:45; Stop 02/05/17 at 09:24; Status DC Docusate Sodium (Colace) 100 mg BID PO Last administered on 02/01/17 08:42; Start 01/29/17 at 21:00; Stop 02/02/17 at 11:08; Status DC Magnesium Hydroxide (Milk Of Magnesia) 2,400 mg PRN Q12HR PRN PO CONSTIPATION; Start 01/29/17 at 18:45 Lactulose 20 gm PRN Q12HR PRN PO CONSTIPATION; Start 01/29/17 at 18:45; Stop at 09:12; Status DC Bisacodyl (Dulcolax Supp) 10 mg PRN DAILY PRN [place] CONSTIPATION; Start 01/29/17 at 18:45; Stop 02/02/17 at 11:08; Status DC Enoxaparin Sodium (Lovenox 40mg Syringe) 40 mg Q12HR SQ Last administered on 21:09; Start 01/29/17 at 22:00; Stop 01/31/17 at 07:12; Status DC Alprazolam (Xanax) 0.25 mg QHS PRN PO ANXIETY / AGITATION Last administered on 02/09/17 21:49; Start 01/29/17 at 18:45 Carvedilol (Coreg) 12.5 mg BIDWMEALS PO Last administered on 01/29/17 21:51; Start 01/29/17 at 19:00; Stop 01/30/17 at 11:28; Status DC Cyclobenzaprine HCl (Flexeril) 10 mg BID PO Last administered on 02/11/17 08:52 ; Start 01/29/17 at 21:00 Fluconazole (Diflucan) 100 mg DAILY PO Last administered on 02/11/17 08:51; Start 01/30/17 at 09:00 Furosemide (Lasix) 40 mg BID92 PO ; Start 01/30/17 at 09:00; Stop 01/30/17 at 09 :00; Status DC Hydralazine HCl (Apresoline) 25 mg BID PO Last administered on 02/09/17 08:30; Start 01/29/17 at 21:00 Acetaminophen/ Hydrocodone Bitart (Lortab 5/325) 1 tab PRN Q6HRS PRN PO MILD PAIN Last administered on 02/09/17 21:52; Start 01/29/17 at 18:45; Stop 02/11/17 at 09:12; Status DC Lisinopril (Prinivil) 40 mg DAILY PO Last administered on 02/09/17 08:31; Start 01/30/17 at 09:00 Oxycodone/ Acetaminophen (Percocet 10/325) 1 tab PRN Q6HRS PRN PO MODERATE- SEVERE PAIN Last administered on 02/10/17 13:11; Start 01/29/17 at 18:45 Tramadol HCl (Ultram) 100 mg BID PO Last administered on 01/29/17 21:50; Start 01/29/17 at 21:00; Stop 01/30/17 at 11:51; Status DC Vitamin D (Vitamin D3) 5,000 unit DAILY PO Last administered on 02/11/17 08:50 ; Start 01/30/17 at 09:00 Gabapentin (Neurontin) 300 mg PRN DAILY PRN PO NERVE PAIN Last administered on 02/09/17 21:51; Start 01/29/17 at 21:00 Glimepiride (Amaryl) 4 mg BIDWMEALS PO Last administered on 02/08/17 09:10; Start 01/30/17 at 09:00; Stop 02/09/17 at 09:09; Status DC Insulin Detemir (Levemir) 40 units QHS SQ Last administered on 01/29/17 22:01 ; Start 01/29/17 at 21:00; Stop 01/30/17 at 11:51; Status DC Insulin Aspart (NovoLOG) 50 units TIDAC SQ Last administered on 01/29/17 22:00 ; Start 01/29/17 at 19:00; Stop 01/30/17 at 11:51; Status DC Non-Formulary Medication 1.2 mg DAILY SQ ; Start 01/30/17 at 09:00; Stop at 09:00; Status DC Pantoprazole Sodium (Protonix) 40 mg DAILYAC PO Last administered on 02/11/17 08:49; Start 01/30/17 at 07:30 Potassium Chloride (Klor-Con) 10 meq DAILYWBKFT PO Last administered on 08:59; Start 01/30/17 at 08:00; Stop 02/05/17 at 09:21; Status DC Insulin Aspart (NovoLOG) 0-9 UNITS TIDWMEALS SQ Last administered on 02/10/17 18:09; Start 01/30/17 at 08:00 Dextrose (Dextrose 50%-Water Syringe) 12.5 gm PRN Q15MIN PRN IV SEE COMMENTS; Start 01/29/17 at 18:45 Furosemide (Lasix) 40 mg 1X ONCE IVP Last administered on 01/29/17 21:52; Start 01/29/17 at 21:00; Stop 01/29/17 at 21:01; Status DC Furosemide (Lasix) 40 mg BID92 IVP Last administered on 01/30/17 11:01; Start 01/30/17 at 09:00; Stop 01/30/17 at 11:28; Status DC Lidocaine HCl (Xylocaine-Mpf 1% Vial) 2 ml STK-MED ONCE .ROUTE ; Start 01/29/17 at 20:37; Stop 01/29/17 at 20:38; Status DC Dextrose 250 ml @ 1,000 mls/hr 1X ONCE IV ; Start 01/30/17 at 07:45; Stop at 07:59; Status DC Glucose (Insta-Glucose) 15 gm PRN Q15MIN PRN PO LOW BLOOD SUGAR Last administered on 01/30/17 07:55; Start 01/30/17 at 08:00 Glucose (Insta-Glucose) 15 gm STK-MED ONCE .ROUTE ; Start 01/30/17 at 07:52; Stop 01/30/17 at 07:53; Status DC Lidocaine HCl (Xylocaine-Mpf 1% Vial) 2 ml STK-MED ONCE .ROUTE ; Start 01/29/17 at 21:00; Stop 01/30/17 at 09:01; Status DC Furosemide (Lasix) 40 mg DAILY IVP Last administered on 02/03/17 08:39; Start 01/31/17 at 09:00; Stop 02/03/17 at 15:50; Status DC Aspirin (Ecotrin) 81 mg DAILYWBKFT PO Last administered on 02/11/17 08:49; Start 01/30/17 at 12:30 Insulin Detemir (Levemir) 25 units QHS SQ Last administered on 02/02/17 20:54 ; Start 01/30/17 at 21:00; Stop 02/03/17 at 11:09; Status DC Gabapentin (Neurontin) 400 mg BID PO Last administered on 02/11/17 08:52; Start 01/31/17 at 09:00 Gabapentin (Neurontin) 100 mg 1X ONCE PO Last administered on 01/31/17 01:56 ; Start 01/31/17 at 02:00; Stop 01/31/17 at 02:01; Status DC Enoxaparin Sodium (Lovenox 40mg Syringe) 40 mg QHS SQ Last administered on 02/03 20:32; Start 01/31/17 at 21:00; Stop 02/04/17 at 09:32; Status DC Methylprednisolone Acetate (DEPO-Medrol 40MG VIAL) 40 mg 1X ONCE IM Last administered on 02/01/17 13:30; Start 02/01/17 at 13:30; Stop 02/01/17 at 13:31 ; Status DC Lidocaine/Sodium Bicarbonate (Buffered Lidocaine 1%) 20 ml 1X ONCE IJ Last administered on 02/01/17 13:30; Start 02/01/17 at 13:30; Stop 02/01/17 at 13:31 ; Status DC Labetalol HCl (Normodyne) 20 mg PRN Q2HR PRN IVP HYPERTENSION, SEE COMMENTS Last administered on 02/01/17 23:59; Start 02/01/17 at 23:30; Stop 02/03/17 at 15:47; Status DC Insulin Aspart (NovoLOG) 10 units TIDAC SQ Last administered on 02/06/17 07:30 ; Start 02/02/17 at 11:30; Stop 02/07/17 at 13:06; Status DC Insulin Aspart (NovoLOG VIAL) 15 unit 1X ONCE SQ ; Start 02/02/17 at 08:45; Stop 02/02/17 at 08:46; Status Cancel Insulin Aspart (NovoLOG) 15 units 1X ONCE SQ Last administered on 02/02/17 08 :42; Start 02/02/17 at 08:45; Stop 02/02/17 at 08:46; Status DC Loperamide HCl (Imodium) 2 mg PRN Q15MIN PRN PO DIARRHEA Last administered on 09:43; Start 02/02/17 at 11:15; Stop 02/03/17 at 12:31; Status DC Loperamide HCl (Imodium) 2 mg PRN Q15MIN PRN PO DIARRHEA Last administered on 01:35; Start 02/02/17 at 12:45; Stop 02/04/17 at 14:00; Status DC Insulin Detemir (Levemir) 35 units QHS SQ Last administered on 02/06/17 20:58; Start 02/03/17 at 21:00; Stop 02/07/17 at 13:06; Status DC Metoprolol Tartrate (Lopressor) 12.5 mg BID PO Last administered on 02/10/17 20 :52; Start 02/03/17 at 21:00 Furosemide (Lasix) 60 mg DAILY PO Last administered on 02/04/17 08:57; Start 02/04/17 at 09:00; Stop 02/04/17 at 14:34; Status DC Heparin Sodium (Porcine) (Heparin Sq) 5,000 unit Q8HRS SQ Last administered on 02/11/17 06:11; Start 02/04/17 at 14:00 Loperamide HCl (Imodium) 2 mg TID PO Last administered on 02/07/17 20:32; Start 02/04/17 at 14:00; Stop 02/09/17 at 10:50; Status DC Magnesium Sulfate/ Dextrose 50 ml @ 25 mls/hr PRN DAILY PRN IV for Mag < 1.7 on am labs; Start 02/04/17 at 14:30; Stop 02/05/17 at 10:05; Status DC Furosemide 100 mg/ Sodium Chloride 100 ml @ 0 mls/hr CONT PRN IV SEE I/O RECORD Last administered on 02/04/17 15:59; Start 02/04/17 at 14:30; Stop at 09:27; Status DC Acetylcysteine (Mucomyst 20% Oral Solution) 1,200 mg BID PO Last administered on 02/06/17 20:49; Start 02/05/17 at 09:00; Stop 02/07/17 at 08:59; Status DC Sodium Polystyrene Sulfonate (Kayexalate) 30 gm 1X ONCE PO Last administered on 02/06/17 09:49; Start 02/06/17 at 09:30; Stop 02/06/17 at 09:31; Status DC Dextrose 10 ml 1X ONCE IV Last administered on 02/06/17 09:56; Start 02/06/17 at 09:30; Stop 02/06/17 at 09:31; Status DC Insulin Human Regular (NovoLIN R VIAL) 10 unit 1X ONCE IV Last administered on 02/06/17 09:59; Start 02/06/17 at 09:30; Stop 02/06/17 at 09:31; Status DC Heparin Sodium/ Sodium Chloride 500 ml @ As Directed STK-MED ONCE .ROUTE ; Start 02/06/17 at 10:10; Stop 02/06/17 at 10:11; Status DC Lidocaine HCl 20 ml STK-MED ONCE .ROUTE ; Start 02/06/17 at 10:10; Stop 02/06/17 at 10:11; Status DC Fentanyl Citrate (Fentanyl 2ml Vial) 100 mcg STK-MED ONCE .ROUTE ; Start at 10:39; Stop 02/06/17 at 10:40; Status DC Midazolam HCl (Versed) 2 mg STK-MED ONCE .ROUTE ; Start 02/06/17 at 10:39; Stop 02/06/17 at 10:40; Status DC Heparin Sodium/ Sodium Chloride 1,000 unit 1X ONCE IART Last administered on 11:10; Start 02/06/17 at 11:15; Stop 02/06/17 at 11:16; Status DC Midazolam HCl (Versed) 1 mg 1X ONCE IV Last administered on 02/06/17 11:11; Start 02/06/17 at 11:15; Stop 02/06/17 at 11:16; Status DC Fentanyl Citrate (Fentanyl 2ml Vial) 50 mcg 1X ONCE IV Last administered on 11:11; Start 02/06/17 at 11:15; Stop 02/06/17 at 11:16; Status DC Lidocaine HCl 20 ml 1X ONCE IJ Last administered on 02/06/17 11:10; Start 02/06 at 11:15; Stop 02/06/17 at 11:16; Status DC Sodium Chloride (Normal Saline Flush) 3 ml QSHIFT PRN IV AFTER MEDS AND BLOOD DRAWS; Start 02/06/17 at 11:15 Nitroglycerin (Nitrostat) 0.4 mg PRN Q5MIN PRN SL CHEST PAIN; Start 02/06/17 at 11:15 Iron Sucrose 200 mg/Sodium Chloride 110 ml @ 55 mls/hr 3X/WEEK IV Last administered on 02/06/17 16:30; Start 02/06/17 at 13:00; Stop 02/11/17 at 09:12; Status DC Furosemide 100 mg/ Sodium Chloride 100 ml @ 0 mls/hr CONT PRN IV SEE I/O RECORD Last administered on 02/10/17 12:59; Start 02/06/17 at 13:30; Stop at 09:12; Status DC Insulin Detemir (Levemir) 20 units QHS SQ ; Start 02/07/17 at 21:00; Stop at 09:08; Status DC Furosemide (Lasix) 20 mg 1X ONCE IVP ; Start 02/07/17 at 13:30; Stop 02/07/17 at 13:31; Status Cancel Diclofenac Sodium (Voltaren) 1 katia BID TP Last administered on 02/11/17 08:49; Start 02/08/17 at 13:30 Lidocaine HCl 16 ml/Sodium Bicarbonate 4 meq/ Miscellaneous 20 ml @ 20 mls/hr 1X ONCE ID ; Start 02/09/17 at 06:00; Stop 02/09/17 at 06:59; Status UNV Lidocaine HCl 10 ml 1X ONCE INJ Last administered on 02/08/17 15:44; Start 02/08/17 at 14:00; Stop 02/08/17 at 14:01; Status DC Amlodipine Besylate (Norvasc) 10 mg DAILY PO Last administered on 02/11/17 08: 51; Start 02/09/17 at 09:00 Amlodipine Besylate (Norvasc) 10 mg 1X ONCE PO Last administered on 02/08/17 15:43; Start 02/08/17 at 16:00; Stop 02/08/17 at 16:01; Status DC Insulin Detemir (Levemir) 12 units QHS SQ Last administered on 02/10/17 21:02; Start 02/09/17 at 21:00 Ceftriaxone Sodium 1 gm/ Sodium Chloride 50 ml @ 100 mls/hr Q24H IV Last administered on 02/09/17 11:41; Start 02/09/17 at 10:00; Stop 02/10/17 at 09:25; Status DC Loperamide HCl (Imodium) 2 mg PRN TID PRN PO if diarrhea recurs; Start 02/09/17 at 11:00 Lidocaine HCl (Xylocaine-Mpf 1% Vial) 2 ml STK-MED ONCE .ROUTE ; Start 02/10/17 at 06:35; Stop 02/10/17 at 06:36; Status DC Prednisone (Prednisone) 60 mg 1X ONCE PO Last administered on 02/10/17 09:53; Start 02/10/17 at 09:30; Stop 02/10/17 at 09:41; Status DC Prednisone (Prednisone) 40 mg DAILY PO Last administered on 02/11/17 08:50; Start 02/11/17 at 09:00 Colchicine (Colcrys) 1.2 mg 1X ONCE PO Last administered on 02/10/17 09:53; Start 02/10/17 at 09:30; Stop 02/10/17 at 09:41; Status DC Colchicine (Colcrys) 0.6 mg DAILY PO ; Start 02/11/17 at 09:00; Stop 02/11/17 at 09:00; Status DC Lidocaine HCl 1 ml STK-MED ONCE .ROUTE ; Start 02/11/17 at 09:38; Stop 02/11/17 at 09:39; Status DC Active Scripts Active Xanax (Alprazolam) 0.25 Mg Tablet 0.25 Mg PO QHS PRN Oxycodone-Acetaminophen 10-325 (Oxycodone Hcl/Acetaminophen) 1 Each Tablet 1 Tab PO PRN Q6HRS PRN Hydralazine Hcl 25 Mg Tablet 25 Mg PO BID Carvedilol 12.5 Mg Tablet 12.5 Mg PO BIDWMEALS Fluconazole 100 Mg Tablet 1 Tab PO DAILY Lasix (Furosemide) 40 Mg Tablet 40 Mg PO BID Reported Lisinopril 40 Mg Tablet 1 Tab PO DAILY Humalog (Insulin Lispro) 100 Unit/1 Ml Vial 50 Unit SQ TID Lortab 5-325 mg Tablet (Hydrocodone/Acetaminophen) 1 Each Tablet 1 Tab PO PRN Q6HRS PRN Levemir (Insulin Detemir) 100 Unit/1 Ml Vial 40 Unit SQ HS Victoza 3-Devon (Liraglutide) 0.6 Mg/0.1 Ml Pen.injctr 1.2 Mg SQ DAILY Gabapentin 300 Mg Capsule 1 Cap PO DAILY PRN Vitamin D3 (Cholecalciferol (Vitamin D3)) 5,000 Unit Tablet 1 Tab PO DAILY Glimepiride 4 Mg Tablet 1 Tab PO BID Tramadol Hcl 50 Mg Tablet 2 Tab PO BID Cyclobenzaprine Hcl 10 Mg Tablet 1 Tab PO BID Klor-Con 10 (Potassium Chloride) 10 Meq Tablet.er 1 Tab PO DAILY Omeprazole 20 Mg Capsule.dr 1 Cap PO DAILY Vitals/I & O Vital Sign - Last 24 Hours 02/10/17 02/10/17 02/10/17 02/10/17 11:33 13:11 14:11 15:05 Temp 97.7 98.7 97.7 98.7 Pulse 76 96 Resp 22 20 B/P (MAP) 91/54 (66) 104/53 (70) Pulse Ox 97 95 O2 Delivery Nasal Cannula Nasal Cannula Nasal Cannula Nasal Cannula O2 Flow Rate 2.0 2.0 02/10/17 02/10/17 02/10/17 02/10/17 18:58 19:32 20:52 23:00 Temp 97.5 97.7 97.5 97.7 Pulse 94 94 88 Resp 18 18 B/P (MAP) 110/61 (77) 110/61 112/56 (74) Pulse Ox 95 98 O2 Delivery Nasal Cannula Nasal Cannula Nasal Cannula O2 Flow Rate 2.0 2.0 2.0 02/11/17 02/11/17 02/11/17 02/11/17 03:00 07:00 08:00 08:51 Temp 97.2 97.2 Pulse 63 72 72 Resp 17 B/P (MAP) 96/50 (65) 96/50 Pulse Ox 95 O2 Delivery Nasal Cannula Nasal Cannula O2 Flow Rate 2.0 2.0 Intake and Output 02/10/17 02/10/17 02/11/17 15:00 23:00 07:00 Intake Total 440 ml 300 ml Output Total 350 ml 300 ml Balance 90 ml 0 ml GABRIEL LAWS MD Feb 11, 2017 09:53
--- NOTE | 2017-02-11 09:56 | PDOC ---
G I PROGRESS NOTE Subjective No GI complaints. Knees still a problem. Physical Exam Lungs clear. RRR Abdomen soft, not tender nor distended. Review of Relevant I have reviewed the following items kai (where applicable) has been applied. Labs Laboratory Tests Test 02/09/17 11:38 02/09/17 17:12 02/09/17 20:29 02/10/17 04:15 Glucose (Fingerstick) 174 mg/dL (70-99) 261 mg/dL (70-99) 252 mg/dL (70-99) White Blood Count 8.7 x10^3/uL (4.0-11.0) Red Blood Count 3.13 x10^6/uL (3.50-5.40) Hemoglobin 9.0 g/dL (12.0-15.5) Hematocrit 27.6 % (36.0-47.0) Mean Corpuscular Volume 88 fL (79-100) Mean Corpuscular Hemoglobin 29 pg (25-35) Mean Corpuscular Hemoglobin Concent 33 g/dL (31-37) Red Cell Distribution Width 15.6 % (11.5-14.5) Platelet Count 127 x10^3/uL (140-400) Neutrophils (%) (Auto) 65 % (31-73) Lymphocytes (%) (Auto) 22 % (24-48) Monocytes (%) (Auto) 10 % (0-9) Eosinophils (%) (Auto) 3 % (0-3) Basophils (%) (Auto) 1 % (0-3) Neutrophils # (Auto) 5.7 x10^3uL (1.8-7.7) Lymphocytes # (Auto) 1.9 x10^3/uL (1.0-4.8) Monocytes # (Auto) 0.8 x10^3/uL (0.0-1.1) Eosinophils # (Auto) 0.2 x10^3/uL (0.0-0.7) Basophils # (Auto) 0.0 x10^3/uL (0.0-0.2) Sodium Level 141 mmol/L (136-145) Potassium Level 3.5 mmol/L (3.5-5.1) Chloride Level 105 mmol/L (98-107) Carbon Dioxide Level 31 mmol/L (21-32) Anion Gap 5 (6-14) Blood Urea Nitrogen 60 mg/dL (7-20) Creatinine 3.6 mg/dL (0.6-1.0) Estimated GFR (Cockcroft-Gault) 12.6 Glucose Level 150 mg/dL (70-99) Calcium Level 8.1 mg/dL (8.5-10.1) Phosphorus Level 4.7 mg/dL (2.6-4.7) Albumin 1.8 g/dL (3.4-5.0) Test 02/10/17 07:34 02/10/17 12:03 02/10/17 17:17 02/10/17 20:50 Glucose (Fingerstick) 87 mg/dL (70-99) 77 mg/dL (70-99) 223 mg/dL (70-99) 296 mg/dL (70-99) Test 02/11/17 03:25 02/11/17 08:00 Sodium Level 141 mmol/L (136-145) Potassium Level 4.7 mmol/L (3.5-5.1) Chloride Level 104 mmol/L (98-107) Carbon Dioxide Level 28 mmol/L (21-32) Anion Gap 9 (6-14) Blood Urea Nitrogen 72 mg/dL (7-20) Creatinine 4.3 mg/dL (0.6-1.0) Estimated GFR (Cockcroft-Gault) 10.2 Glucose Level 356 mg/dL (70-99) Calcium Level 8.5 mg/dL (8.5-10.1) Phosphorus Level 6.5 mg/dL (2.6-4.7) Albumin 1.8 g/dL (3.4-5.0) Glucose (Fingerstick) 381 mg/dL (70-99) Laboratory Tests Test 02/10/17 12:03 02/10/17 17:17 02/10/17 20:50 02/11/17 03:25 Glucose (Fingerstick) 77 mg/dL (70-99) 223 mg/dL (70-99) 296 mg/dL (70-99) Sodium Level 141 mmol/L (136-145) Potassium Level 4.7 mmol/L (3.5-5.1) Chloride Level 104 mmol/L (98-107) Carbon Dioxide Level 28 mmol/L (21-32) Anion Gap 9 (6-14) Blood Urea Nitrogen 72 mg/dL (7-20) Creatinine 4.3 mg/dL (0.6-1.0) Estimated GFR (Cockcroft-Gault) 10.2 Glucose Level 356 mg/dL (70-99) Calcium Level 8.5 mg/dL (8.5-10.1) Phosphorus Level 6.5 mg/dL (2.6-4.7) Albumin 1.8 g/dL (3.4-5.0) Test 02/11/17 08:00 Glucose (Fingerstick) 381 mg/dL (70-99) Microbiology 02/08/17 Gram Stain - Final, Complete Medications Current Medications Zolpidem Tartrate (Ambien) 5 mg PRN QHS PRN PO INSOMNIA, MAY REPEAT IN 1HR Last administered on 02/09/17 21:49; Start 01/29/17 at 18:45 Oxycodone HCl (Roxicodone) 5 mg PRN Q3HRS PRN PO BREAKTHROUGH PAIN Last administered on 02/08/17 09:18; Start 01/29/17 at 18:45 Acetaminophen (Tylenol) 650 mg PRN Q6HRS PRN PO Headaches, Temp > 101.5F Last administered on 02/08/17 21:24; Start 01/29/17 at 18:45 Ibuprofen (Motrin) 400 mg PRN Q6HRS PRN PO MILD PAIN; Start 01/29/17 at 18:45; Stop 02/05/17 at 09:24; Status DC Docusate Sodium (Colace) 100 mg BID PO Last administered on 02/01/17 08:42; Start 01/29/17 at 21:00; Stop 02/02/17 at 11:08; Status DC Magnesium Hydroxide (Milk Of Magnesia) 2,400 mg PRN Q12HR PRN PO CONSTIPATION; Start 01/29/17 at 18:45 Lactulose 20 gm PRN Q12HR PRN PO CONSTIPATION; Start 01/29/17 at 18:45; Stop at 09:12; Status DC Bisacodyl (Dulcolax Supp) 10 mg PRN DAILY PRN MI CONSTIPATION; Start 01/29/17 at 18:45; Stop 02/02/17 at 11:08; Status DC Enoxaparin Sodium (Lovenox 40mg Syringe) 40 mg Q12HR SQ Last administered on 21:09; Start 01/29/17 at 22:00; Stop 01/31/17 at 07:12; Status DC Alprazolam (Xanax) 0.25 mg QHS PRN PO ANXIETY / AGITATION Last administered on 02/09/17 21:49; Start 01/29/17 at 18:45 Carvedilol (Coreg) 12.5 mg BIDWMEALS PO Last administered on 01/29/17 21:51; Start 01/29/17 at 19:00; Stop 01/30/17 at 11:28; Status DC Cyclobenzaprine HCl (Flexeril) 10 mg BID PO Last administered on 02/11/17 08:52 ; Start 01/29/17 at 21:00 Fluconazole (Diflucan) 100 mg DAILY PO Last administered on 02/11/17 08:51; Start 01/30/17 at 09:00 Furosemide (Lasix) 40 mg BID92 PO ; Start 01/30/17 at 09:00; Stop 01/30/17 at 09 :00; Status DC Hydralazine HCl (Apresoline) 25 mg BID PO Last administered on 02/09/17 08:30; Start 01/29/17 at 21:00 Acetaminophen/ Hydrocodone Bitart (Lortab 5/325) 1 tab PRN Q6HRS PRN PO MILD PAIN Last administered on 02/09/17 21:52; Start 01/29/17 at 18:45; Stop 02/11/17 at 09:12; Status DC Lisinopril (Prinivil) 40 mg DAILY PO Last administered on 02/09/17 08:31; Start 01/30/17 at 09:00 Oxycodone/ Acetaminophen (Percocet 10/325) 1 tab PRN Q6HRS PRN PO MODERATE- SEVERE PAIN Last administered on 02/10/17 13:11; Start 01/29/17 at 18:45 Tramadol HCl (Ultram) 100 mg BID PO Last administered on 01/29/17 21:50; Start 01/29/17 at 21:00; Stop 01/30/17 at 11:51; Status DC Vitamin D (Vitamin D3) 5,000 unit DAILY PO Last administered on 02/11/17 08:50 ; Start 01/30/17 at 09:00 Gabapentin (Neurontin) 300 mg PRN DAILY PRN PO NERVE PAIN Last administered on 02/09/17 21:51; Start 01/29/17 at 21:00 Glimepiride (Amaryl) 4 mg BIDWMEALS PO Last administered on 02/08/17 09:10; Start 01/30/17 at 09:00; Stop 02/09/17 at 09:09; Status DC Insulin Detemir (Levemir) 40 units QHS SQ Last administered on 01/29/17 22:01 ; Start 01/29/17 at 21:00; Stop 01/30/17 at 11:51; Status DC Insulin Aspart (NovoLOG) 50 units TIDAC SQ Last administered on 01/29/17 22:00 ; Start 01/29/17 at 19:00; Stop 01/30/17 at 11:51; Status DC Non-Formulary Medication 1.2 mg DAILY SQ ; Start 01/30/17 at 09:00; Stop at 09:00; Status DC Pantoprazole Sodium (Protonix) 40 mg DAILYAC PO Last administered on 02/11/17 08:49; Start 01/30/17 at 07:30 Potassium Chloride (Klor-Con) 10 meq DAILYWBKFT PO Last administered on 08:59; Start 01/30/17 at 08:00; Stop 02/05/17 at 09:21; Status DC Insulin Aspart (NovoLOG) 0-9 UNITS TIDWMEALS SQ Last administered on 02/10/17 18:09; Start 01/30/17 at 08:00 Dextrose (Dextrose 50%-Water Syringe) 12.5 gm PRN Q15MIN PRN IV SEE COMMENTS; Start 01/29/17 at 18:45 Furosemide (Lasix) 40 mg 1X ONCE IVP Last administered on 01/29/17 21:52; Start 01/29/17 at 21:00; Stop 01/29/17 at 21:01; Status DC Furosemide (Lasix) 40 mg BID92 IVP Last administered on 01/30/17 11:01; Start 01/30/17 at 09:00; Stop 01/30/17 at 11:28; Status DC Lidocaine HCl (Xylocaine-Mpf 1% Vial) 2 ml STK-MED ONCE .ROUTE ; Start 01/29/17 at 20:37; Stop 01/29/17 at 20:38; Status DC Dextrose 250 ml @ 1,000 mls/hr 1X ONCE IV ; Start 01/30/17 at 07:45; Stop at 07:59; Status DC Glucose (Insta-Glucose) 15 gm PRN Q15MIN PRN PO LOW BLOOD SUGAR Last administered on 01/30/17 07:55; Start 01/30/17 at 08:00 Glucose (Insta-Glucose) 15 gm STK-MED ONCE .ROUTE ; Start 01/30/17 at 07:52; Stop 01/30/17 at 07:53; Status DC Lidocaine HCl (Xylocaine-Mpf 1% Vial) 2 ml STK-MED ONCE .ROUTE ; Start 01/29/17 at 21:00; Stop 01/30/17 at 09:01; Status DC Furosemide (Lasix) 40 mg DAILY IVP Last administered on 02/03/17 08:39; Start 01/31/17 at 09:00; Stop 02/03/17 at 15:50; Status DC Aspirin (Ecotrin) 81 mg DAILYWBKFT PO Last administered on 02/11/17 08:49; Start 01/30/17 at 12:30 Insulin Detemir (Levemir) 25 units QHS SQ Last administered on 02/02/17 20:54 ; Start 01/30/17 at 21:00; Stop 02/03/17 at 11:09; Status DC Gabapentin (Neurontin) 400 mg BID PO Last administered on 02/11/17 08:52; Start 01/31/17 at 09:00 Gabapentin (Neurontin) 100 mg 1X ONCE PO Last administered on 01/31/17 01:56 ; Start 01/31/17 at 02:00; Stop 01/31/17 at 02:01; Status DC Enoxaparin Sodium (Lovenox 40mg Syringe) 40 mg QHS SQ Last administered on 02/03 20:32; Start 01/31/17 at 21:00; Stop 02/04/17 at 09:32; Status DC Methylprednisolone Acetate (DEPO-Medrol 40MG VIAL) 40 mg 1X ONCE IM Last administered on 02/01/17 13:30; Start 02/01/17 at 13:30; Stop 02/01/17 at 13:31 ; Status DC Lidocaine/Sodium Bicarbonate (Buffered Lidocaine 1%) 20 ml 1X ONCE IJ Last administered on 02/01/17 13:30; Start 02/01/17 at 13:30; Stop 02/01/17 at 13:31 ; Status DC Labetalol HCl (Normodyne) 20 mg PRN Q2HR PRN IVP HYPERTENSION, SEE COMMENTS Last administered on 02/01/17 23:59; Start 02/01/17 at 23:30; Stop 02/03/17 at 15:47; Status DC Insulin Aspart (NovoLOG) 10 units TIDAC SQ Last administered on 02/06/17 07:30 ; Start 02/02/17 at 11:30; Stop 02/07/17 at 13:06; Status DC Insulin Aspart (NovoLOG VIAL) 15 unit 1X ONCE SQ ; Start 02/02/17 at 08:45; Stop 02/02/17 at 08:46; Status Cancel Insulin Aspart (NovoLOG) 15 units 1X ONCE SQ Last administered on 02/02/17 08 :42; Start 02/02/17 at 08:45; Stop 02/02/17 at 08:46; Status DC Loperamide HCl (Imodium) 2 mg PRN Q15MIN PRN PO DIARRHEA Last administered on 09:43; Start 02/02/17 at 11:15; Stop 02/03/17 at 12:31; Status DC Loperamide HCl (Imodium) 2 mg PRN Q15MIN PRN PO DIARRHEA Last administered on 01:35; Start 02/02/17 at 12:45; Stop 02/04/17 at 14:00; Status DC Insulin Detemir (Levemir) 35 units QHS SQ Last administered on 02/06/17 20:58; Start 02/03/17 at 21:00; Stop 02/07/17 at 13:06; Status DC Metoprolol Tartrate (Lopressor) 12.5 mg BID PO Last administered on 02/10/17 20 :52; Start 02/03/17 at 21:00 Furosemide (Lasix) 60 mg DAILY PO Last administered on 02/04/17 08:57; Start 02/04/17 at 09:00; Stop 02/04/17 at 14:34; Status DC Heparin Sodium (Porcine) (Heparin Sq) 5,000 unit Q8HRS SQ Last administered on 02/11/17 06:11; Start 02/04/17 at 14:00 Loperamide HCl (Imodium) 2 mg TID PO Last administered on 02/07/17 20:32; Start 02/04/17 at 14:00; Stop 02/09/17 at 10:50; Status DC Magnesium Sulfate/ Dextrose 50 ml @ 25 mls/hr PRN DAILY PRN IV for Mag < 1.7 on am labs; Start 02/04/17 at 14:30; Stop 02/05/17 at 10:05; Status DC Furosemide 100 mg/ Sodium Chloride 100 ml @ 0 mls/hr CONT PRN IV SEE I/O RECORD Last administered on 02/04/17 15:59; Start 02/04/17 at 14:30; Stop at 09:27; Status DC Acetylcysteine (Mucomyst 20% Oral Solution) 1,200 mg BID PO Last administered on 02/06/17 20:49; Start 02/05/17 at 09:00; Stop 02/07/17 at 08:59; Status DC Sodium Polystyrene Sulfonate (Kayexalate) 30 gm 1X ONCE PO Last administered on 02/06/17 09:49; Start 02/06/17 at 09:30; Stop 02/06/17 at 09:31; Status DC Dextrose 10 ml 1X ONCE IV Last administered on 02/06/17 09:56; Start 02/06/17 at 09:30; Stop 02/06/17 at 09:31; Status DC Insulin Human Regular (NovoLIN R VIAL) 10 unit 1X ONCE IV Last administered on 02/06/17 09:59; Start 02/06/17 at 09:30; Stop 02/06/17 at 09:31; Status DC Heparin Sodium/ Sodium Chloride 500 ml @ As Directed STK-MED ONCE .ROUTE ; Start 02/06/17 at 10:10; Stop 02/06/17 at 10:11; Status DC Lidocaine HCl 20 ml STK-MED ONCE .ROUTE ; Start 02/06/17 at 10:10; Stop 02/06/17 at 10:11; Status DC Fentanyl Citrate (Fentanyl 2ml Vial) 100 mcg STK-MED ONCE .ROUTE ; Start at 10:39; Stop 02/06/17 at 10:40; Status DC Midazolam HCl (Versed) 2 mg STK-MED ONCE .ROUTE ; Start 02/06/17 at 10:39; Stop 02/06/17 at 10:40; Status DC Heparin Sodium/ Sodium Chloride 1,000 unit 1X ONCE IART Last administered on 11:10; Start 02/06/17 at 11:15; Stop 02/06/17 at 11:16; Status DC Midazolam HCl (Versed) 1 mg 1X ONCE IV Last administered on 02/06/17 11:11; Start 02/06/17 at 11:15; Stop 02/06/17 at 11:16; Status DC Fentanyl Citrate (Fentanyl 2ml Vial) 50 mcg 1X ONCE IV Last administered on 11:11; Start 02/06/17 at 11:15; Stop 02/06/17 at 11:16; Status DC Lidocaine HCl 20 ml 1X ONCE IJ Last administered on 02/06/17 11:10; Start 02/06 at 11:15; Stop 02/06/17 at 11:16; Status DC Sodium Chloride (Normal Saline Flush) 3 ml QSHIFT PRN IV AFTER MEDS AND BLOOD DRAWS; Start 02/06/17 at 11:15 Nitroglycerin (Nitrostat) 0.4 mg PRN Q5MIN PRN SL CHEST PAIN; Start 02/06/17 at 11:15 Iron Sucrose 200 mg/Sodium Chloride 110 ml @ 55 mls/hr 3X/WEEK IV Last administered on 02/06/17 16:30; Start 02/06/17 at 13:00; Stop 02/11/17 at 09:12; Status DC Furosemide 100 mg/ Sodium Chloride 100 ml @ 0 mls/hr CONT PRN IV SEE I/O RECORD Last administered on 02/10/17 12:59; Start 02/06/17 at 13:30; Stop at 09:12; Status DC Insulin Detemir (Levemir) 20 units QHS SQ ; Start 02/07/17 at 21:00; Stop at 09:08; Status DC Furosemide (Lasix) 20 mg 1X ONCE IVP ; Start 02/07/17 at 13:30; Stop 02/07/17 at 13:31; Status Cancel Diclofenac Sodium (Voltaren) 1 katia BID TP Last administered on 02/11/17 08:49; Start 02/08/17 at 13:30 Lidocaine HCl 16 ml/Sodium Bicarbonate 4 meq/ Miscellaneous 20 ml @ 20 mls/hr 1X ONCE ID ; Start 02/09/17 at 06:00; Stop 02/09/17 at 06:59; Status UNV Lidocaine HCl 10 ml 1X ONCE INJ Last administered on 02/08/17 15:44; Start 02/08/17 at 14:00; Stop 02/08/17 at 14:01; Status DC Amlodipine Besylate (Norvasc) 10 mg DAILY PO Last administered on 02/11/17 08: 51; Start 02/09/17 at 09:00 Amlodipine Besylate (Norvasc) 10 mg 1X ONCE PO Last administered on 02/08/17 15:43; Start 02/08/17 at 16:00; Stop 02/08/17 at 16:01; Status DC Insulin Detemir (Levemir) 12 units QHS SQ Last administered on 02/10/17 21:02; Start 02/09/17 at 21:00 Ceftriaxone Sodium 1 gm/ Sodium Chloride 50 ml @ 100 mls/hr Q24H IV Last administered on 02/09/17 11:41; Start 02/09/17 at 10:00; Stop 02/10/17 at 09:25; Status DC Loperamide HCl (Imodium) 2 mg PRN TID PRN PO if diarrhea recurs; Start 02/09/17 at 11:00 Lidocaine HCl (Xylocaine-Mpf 1% Vial) 2 ml STK-MED ONCE .ROUTE ; Start 02/10/17 at 06:35; Stop 02/10/17 at 06:36; Status DC Prednisone (Prednisone) 60 mg 1X ONCE PO Last administered on 02/10/17 09:53; Start 02/10/17 at 09:30; Stop 02/10/17 at 09:41; Status DC Prednisone (Prednisone) 40 mg DAILY PO Last administered on 02/11/17 08:50; Start 02/11/17 at 09:00 Colchicine (Colcrys) 1.2 mg 1X ONCE PO Last administered on 02/10/17 09:53; Start 02/10/17 at 09:30; Stop 02/10/17 at 09:41; Status DC Colchicine (Colcrys) 0.6 mg DAILY PO ; Start 02/11/17 at 09:00; Stop 02/11/17 at 09:00; Status DC Lidocaine HCl 1 ml STK-MED ONCE .ROUTE ; Start 02/11/17 at 09:38; Stop 02/11/17 at 09:39; Status DC Active Scripts Active Xanax (Alprazolam) 0.25 Mg Tablet 0.25 Mg PO QHS PRN Oxycodone-Acetaminophen 10-325 (Oxycodone Hcl/Acetaminophen) 1 Each Tablet 1 Tab PO PRN Q6HRS PRN Hydralazine Hcl 25 Mg Tablet 25 Mg PO BID Carvedilol 12.5 Mg Tablet 12.5 Mg PO BIDWMEALS Fluconazole 100 Mg Tablet 1 Tab PO DAILY Lasix (Furosemide) 40 Mg Tablet 40 Mg PO BID Reported Lisinopril 40 Mg Tablet 1 Tab PO DAILY Humalog (Insulin Lispro) 100 Unit/1 Ml Vial 50 Unit SQ TID Lortab 5-325 mg Tablet (Hydrocodone/Acetaminophen) 1 Each Tablet 1 Tab PO PRN Q6HRS PRN Levemir (Insulin Detemir) 100 Unit/1 Ml Vial 40 Unit SQ HS Victoza 3-Devon (Liraglutide) 0.6 Mg/0.1 Ml Pen.injctr 1.2 Mg SQ DAILY Gabapentin 300 Mg Capsule 1 Cap PO DAILY PRN Vitamin D3 (Cholecalciferol (Vitamin D3)) 5,000 Unit Tablet 1 Tab PO DAILY Glimepiride 4 Mg Tablet 1 Tab PO BID Tramadol Hcl 50 Mg Tablet 2 Tab PO BID Cyclobenzaprine Hcl 10 Mg Tablet 1 Tab PO BID Klor-Con 10 (Potassium Chloride) 10 Meq Tablet.er 1 Tab PO DAILY Omeprazole 20 Mg Capsule.dr 1 Cap PO DAILY Vitals/I & O Vital Sign - Last 24 Hours 02/10/17 02/10/17 02/10/17 02/10/17 11:33 13:11 14:11 15:05 Temp 97.7 98.7 97.7 98.7 Pulse 76 96 Resp 22 20 B/P (MAP) 91/54 (66) 104/53 (70) Pulse Ox 97 95 O2 Delivery Nasal Cannula Nasal Cannula Nasal Cannula Nasal Cannula O2 Flow Rate 2.0 2.0 02/10/17 02/10/17 02/10/17 02/10/17 18:58 19:32 20:52 23:00 Temp 97.5 97.7 97.5 97.7 Pulse 94 94 88 Resp 18 18 B/P (MAP) 110/61 (77) 110/61 112/56 (74) Pulse Ox 95 98 O2 Delivery Nasal Cannula Nasal Cannula Nasal Cannula O2 Flow Rate 2.0 2.0 2.0 02/11/17 02/11/17 02/11/17 02/11/17 03:00 07:00 08:00 08:51 Temp 97.2 97.2 Pulse 63 72 72 Resp 17 B/P (MAP) 96/50 (65) 96/50 Pulse Ox 95 O2 Delivery Nasal Cannula Nasal Cannula O2 Flow Rate 2.0 2.0 Intake and Output 02/10/17 02/10/17 02/11/17 15:00 23:00 07:00 Intake Total 440 ml 300 ml Output Total 350 ml 300 ml Balance 90 ml 0 ml Assessment Stable GI-benjamin. Plan of Care: Continue current Tx, CHEVY Rogers MD Feb 11, 2017 09:56
[2017-02-11] MEDS ORDERED: INSULIN ASPART 300 UNITS/3 ML INSULN.PEN SQ ONE (10:15)
[2017-02-11] MEDS: LISINOPRIL 40 MG TABLET. PO SCH (10:18)
[2017-02-11] MEDS: METOPROLOL TART IMMED RELEASE 25 MG TABLET. PO SCH ×2 (10:19→20:55)
[2017-02-11] MEDS: INSULIN ASPART 300 UNITS/3 ML INSULN.PEN SQ SCH ×5 (10:23→17:32)
[2017-02-11 11:00] VITALS: BP 115/58
[2017-02-11] MEDS ORDERED: GLYCERIN ADULT 1 SUPP.RECT. PR ONE (16:15)
--- NOTE | 2017-02-11 18:14 | PDOC ---
Provider Note Provider Note RENAL F/U : SID S : No active CP or SOA Alert. Sitting up. O : VSS Afebrile. Neck : Supple Lungs : Non labored. CVS : RRR Abd : Benign in appearance, without distention. Ext : Trace edema Neuro : Awake. Labs reviewed. A/P : ARF/ATN EDEMA CKD III CHF. Cr continues to rise. No further diuretics Hold JOVANNA-I May need IVF back. Labs. CPM. ALEXANDRA LAU MD Feb 11, 2017 18:14
--- NOTE | 2017-02-11 19:26 | PDOC ---
PROGRESS NOTES Subjective Subjective Problems overnight: Dr. Michelle rated knees with refuse driver braces patient feels somewhat better after aspiration of right knee Objective Vital Signs Vital Signs Date Time Temp Pulse Resp B/P (MAP) Pulse Ox O2 Delivery O2 Flow Rate FiO2 02/11/17 11:00 97.3 74 18 115/58 (77) 94 Nasal Cannula 2.0 97.3 Physical Exam Little better range of motion of right knee since aspiration Labs Laboratory Tests Test 02/09/17 20:29 02/10/17 04:15 02/10/17 07:34 02/10/17 12:03 Glucose (Fingerstick) 252 mg/dL (70-99) 87 mg/dL (70-99) 77 mg/dL (70-99) White Blood Count 8.7 x10^3/uL (4.0-11.0) Red Blood Count 3.13 x10^6/uL (3.50-5.40) Hemoglobin 9.0 g/dL (12.0-15.5) Hematocrit 27.6 % (36.0-47.0) Mean Corpuscular Volume 88 fL (79-100) Mean Corpuscular Hemoglobin 29 pg (25-35) Mean Corpuscular Hemoglobin Concent 33 g/dL (31-37) Red Cell Distribution Width 15.6 % (11.5-14.5) Platelet Count 127 x10^3/uL (140-400) Neutrophils (%) (Auto) 65 % (31-73) Lymphocytes (%) (Auto) 22 % (24-48) Monocytes (%) (Auto) 10 % (0-9) Eosinophils (%) (Auto) 3 % (0-3) Basophils (%) (Auto) 1 % (0-3) Neutrophils # (Auto) 5.7 x10^3uL (1.8-7.7) Lymphocytes # (Auto) 1.9 x10^3/uL (1.0-4.8) Monocytes # (Auto) 0.8 x10^3/uL (0.0-1.1) Eosinophils # (Auto) 0.2 x10^3/uL (0.0-0.7) Basophils # (Auto) 0.0 x10^3/uL (0.0-0.2) Sodium Level 141 mmol/L (136-145) Potassium Level 3.5 mmol/L (3.5-5.1) Chloride Level 105 mmol/L (98-107) Carbon Dioxide Level 31 mmol/L (21-32) Anion Gap 5 (6-14) Blood Urea Nitrogen 60 mg/dL (7-20) Creatinine 3.6 mg/dL (0.6-1.0) Estimated GFR (Cockcroft-Gault) 12.6 Glucose Level 150 mg/dL (70-99) Calcium Level 8.1 mg/dL (8.5-10.1) Phosphorus Level 4.7 mg/dL (2.6-4.7) Albumin 1.8 g/dL (3.4-5.0) Test 02/10/17 17:17 02/10/17 20:50 02/11/17 03:25 02/11/17 08:00 Glucose (Fingerstick) 223 mg/dL (70-99) 296 mg/dL (70-99) 381 mg/dL (70-99) Sodium Level 141 mmol/L (136-145) Potassium Level 4.7 mmol/L (3.5-5.1) Chloride Level 104 mmol/L (98-107) Carbon Dioxide Level 28 mmol/L (21-32) Anion Gap 9 (6-14) Blood Urea Nitrogen 72 mg/dL (7-20) Creatinine 4.3 mg/dL (0.6-1.0) Estimated GFR (Cockcroft-Gault) 10.2 Glucose Level 356 mg/dL (70-99) Calcium Level 8.5 mg/dL (8.5-10.1) Phosphorus Level 6.5 mg/dL (2.6-4.7) Albumin 1.8 g/dL (3.4-5.0) Test 02/11/17 11:45 02/11/17 17:27 Glucose (Fingerstick) 407 mg/dL (70-99) 297 mg/dL (70-99) Laboratory Tests Test 02/10/17 20:50 02/11/17 03:25 02/11/17 08:00 02/11/17 11:45 Glucose (Fingerstick) 296 mg/dL (70-99) 381 mg/dL (70-99) 407 mg/dL (70-99) Sodium Level 141 mmol/L (136-145) Potassium Level 4.7 mmol/L (3.5-5.1) Chloride Level 104 mmol/L (98-107) Carbon Dioxide Level 28 mmol/L (21-32) Anion Gap 9 (6-14) Blood Urea Nitrogen 72 mg/dL (7-20) Creatinine 4.3 mg/dL (0.6-1.0) Estimated GFR (Cockcroft-Gault) 10.2 Glucose Level 356 mg/dL (70-99) Calcium Level 8.5 mg/dL (8.5-10.1) Phosphorus Level 6.5 mg/dL (2.6-4.7) Albumin 1.8 g/dL (3.4-5.0) Test 02/11/17 17:27 Glucose (Fingerstick) 297 mg/dL (70-99) Assessment Assessment POD# [], S/P [right knee aspiration] Problems: Plan Plan of Care Ongoing cultures from right knee are negative We will continue bracing and symptomatic measures CATHERINE HOLLAND MD Feb 11, 2017 19:26
[2017-02-11 19:44] VITALS: BP 120/57
[2017-02-11] MEDS: INSULIN DETEMIR 300 UNITS/3 ML INSULN.PEN. SQ SCH (20:58)
[2017-02-11 22:23] VITALS: BP 115/64
[2017-02-12 02:35] VITALS: BP 102/61
[2017-02-12 04:01] LABS: BASO % 0 % (0-3); EOS % 0 % (0-3); HEMATOCRIT 28.7 % (36.0-47.0); HEMOGLOBIN 9.2 g/dL (12.0-15.5); LYMPH # 0.7 x10^3/uL (1.0-4.8); LYMPH % 11 % (24-48); MEAN CORPUSCULAR HEMOGLOBIN 29 pg (25-35); MEAN CORPUSCULAR HGB CONC 32 g/dL (31-37); MEAN CORPUSCULAR VOLUME 89 fL (79-100); MONO % 4 % (0-9); NEUT % 85 % (31-73); PLATELET COUNT 163 x10^3/uL (140-400); RED BLOOD COUNT 3.22 x10^6/uL (3.50-5.40); RED CELL DISTRIBUTION WIDTH 15.5 % (11.5-14.5); WHITE BLOOD COUNT 6.5 x10^3/uL (4.0-11.0)
[2017-02-12 04:16] LABS: CALCIUM 8.3 mg/dL (8.5-10.1); CREATININE 4.6 mg/dL (0.6-1.0); GFR 9.5; POTASSIUM 4.6 mmol/L (3.5-5.1)
[2017-02-12] MEDS: HEPARIN PF for SUB-Q USE 5,000 UNIT/0.5 ML VIAL. SQ SCH ×3 (06:22→21:28)
[2017-02-12 07:00] VITALS: BP 113/62
[2017-02-12] MEDS: predniSONE 20 MG TABLET PO SCH ×2 (08:02→12:00)
[2017-02-12] MEDS: CYCLOBENZAPRINE 10 MG TABLET. PO SCH ×2 (08:03→21:20)
[2017-02-12] MEDS: GABAPENTIN 400 MG CAPSULE. PO SCH ×2 (08:03→21:20)
[2017-02-12] MEDS: CHOLECALCIFEROL (VITAMIN D3) 5,000 UNIT CAPSULE PO SCH (08:03)
[2017-02-12] MEDS: FLUCONAZOLE 100 MG TABLET. PO SCH (08:03)
[2017-02-12] MEDS: ASPIRIN ENTERIC COATED 81 MG TABLET.DR. PO SCH (08:03)
[2017-02-12] MEDS: PANTOPRAZOLE 40 MG TABLET.DR. PO SCH (08:03)
[2017-02-12] MEDS: DICLOFENAC SODIUM 1% TOPICAL GEL 100GM TUBE. TP SCH ×2 (08:04→21:20)
[2017-02-12] MEDS: METOPROLOL TART IMMED RELEASE 25 MG TABLET. PO SCH ×2 (08:09→21:00)
[2017-02-12] MEDS: amLODIPine BESYLATE 10 MG TABLET PO SCH (08:10)
[2017-02-12] MEDS: INSULIN ASPART 300 UNITS/3 ML INSULN.PEN SQ SCH ×6 (08:22→17:35)
--- NOTE | 2017-02-12 10:19 | PDOC ---
PROGRESS NOTES Subjective Subjective She feels better and tired after bath this AM. Objective Objective Vital Signs Date Time Temp Pulse Resp B/P (MAP) Pulse Ox O2 Delivery O2 Flow Rate FiO2 02/12/17 08:10 76 113/62 02/12/17 07:00 97.4 18 97 Nasal Cannula 2.0 97.4 Intake and Output 02/12/17 07:00 Intake Total 760 ml Output Total 200 ml Balance 560 ml Intake Oral 700 ml IV Total 60 ml Output Urine Total 200 ml # Bowel Movements 2 Physical Exam Physical Exam She is supine in bed and alert and she is moving slowly with roller walker. Plan Plan of Care To get her up as tolerated and to check with about right TKA if she is medically a candidate for it. Comment Review of Relevant I have reviewed the following items kai (where applicable) has been applied. Labs Laboratory Tests Test 02/10/17 12:03 02/10/17 17:17 02/10/17 20:50 02/11/17 03:25 Glucose (Fingerstick) 77 mg/dL (70-99) 223 mg/dL (70-99) 296 mg/dL (70-99) Sodium Level 141 mmol/L (136-145) Potassium Level 4.7 mmol/L (3.5-5.1) Chloride Level 104 mmol/L (98-107) Carbon Dioxide Level 28 mmol/L (21-32) Anion Gap 9 (6-14) Blood Urea Nitrogen 72 mg/dL (7-20) Creatinine 4.3 mg/dL (0.6-1.0) Estimated GFR (Cockcroft-Gault) 10.2 Glucose Level 356 mg/dL (70-99) Calcium Level 8.5 mg/dL (8.5-10.1) Phosphorus Level 6.5 mg/dL (2.6-4.7) Albumin 1.8 g/dL (3.4-5.0) Test 02/11/17 08:00 02/11/17 11:45 02/11/17 17:27 02/11/17 20:37 Glucose (Fingerstick) 381 mg/dL (70-99) 407 mg/dL (70-99) 297 mg/dL (70-99) 324 mg/dL (70-99) Test 02/12/17 02:45 White Blood Count 6.5 x10^3/uL (4.0-11.0) Red Blood Count 3.22 x10^6/uL (3.50-5.40) Hemoglobin 9.2 g/dL (12.0-15.5) Hematocrit 28.7 % (36.0-47.0) Mean Corpuscular Volume 89 fL (79-100) Mean Corpuscular Hemoglobin 29 pg (25-35) Mean Corpuscular Hemoglobin Concent 32 g/dL (31-37) Red Cell Distribution Width 15.5 % (11.5-14.5) Platelet Count 163 x10^3/uL (140-400) Neutrophils (%) (Auto) 85 % (31-73) Lymphocytes (%) (Auto) 11 % (24-48) Monocytes (%) (Auto) 4 % (0-9) Eosinophils (%) (Auto) 0 % (0-3) Basophils (%) (Auto) 0 % (0-3) Neutrophils # (Auto) 5.5 x10^3uL (1.8-7.7) Lymphocytes # (Auto) 0.7 x10^3/uL (1.0-4.8) Monocytes # (Auto) 0.3 x10^3/uL (0.0-1.1) Eosinophils # (Auto) 0.0 x10^3/uL (0.0-0.7) Basophils # (Auto) 0.0 x10^3/uL (0.0-0.2) Sodium Level 137 mmol/L (136-145) Potassium Level 4.6 mmol/L (3.5-5.1) Chloride Level 100 mmol/L (98-107) Carbon Dioxide Level 27 mmol/L (21-32) Anion Gap 10 (6-14) Blood Urea Nitrogen 87 mg/dL (7-20) Creatinine 4.6 mg/dL (0.6-1.0) Estimated GFR (Cockcroft-Gault) 9.5 Glucose Level 347 mg/dL (70-99) Calcium Level 8.3 mg/dL (8.5-10.1) Laboratory Tests Test 02/11/17 11:45 02/11/17 17:27 02/11/17 20:37 02/12/17 02:45 Glucose (Fingerstick) 407 mg/dL (70-99) 297 mg/dL (70-99) 324 mg/dL (70-99) White Blood Count 6.5 x10^3/uL (4.0-11.0) Red Blood Count 3.22 x10^6/uL (3.50-5.40) Hemoglobin 9.2 g/dL (12.0-15.5) Hematocrit 28.7 % (36.0-47.0) Mean Corpuscular Volume 89 fL (79-100) Mean Corpuscular Hemoglobin 29 pg (25-35) Mean Corpuscular Hemoglobin Concent 32 g/dL (31-37) Red Cell Distribution Width 15.5 % (11.5-14.5) Platelet Count 163 x10^3/uL (140-400) Neutrophils (%) (Auto) 85 % (31-73) Lymphocytes (%) (Auto) 11 % (24-48) Monocytes (%) (Auto) 4 % (0-9) Eosinophils (%) (Auto) 0 % (0-3) Basophils (%) (Auto) 0 % (0-3) Neutrophils # (Auto) 5.5 x10^3uL (1.8-7.7) Lymphocytes # (Auto) 0.7 x10^3/uL (1.0-4.8) Monocytes # (Auto) 0.3 x10^3/uL (0.0-1.1) Eosinophils # (Auto) 0.0 x10^3/uL (0.0-0.7) Basophils # (Auto) 0.0 x10^3/uL (0.0-0.2) Sodium Level 137 mmol/L (136-145) Potassium Level 4.6 mmol/L (3.5-5.1) Chloride Level 100 mmol/L (98-107) Carbon Dioxide Level 27 mmol/L (21-32) Anion Gap 10 (6-14) Blood Urea Nitrogen 87 mg/dL (7-20) Creatinine 4.6 mg/dL (0.6-1.0) Estimated GFR (Cockcroft-Gault) 9.5 Glucose Level 347 mg/dL (70-99) Calcium Level 8.3 mg/dL (8.5-10.1) Microbiology 02/08/17 Gram Stain - Final, Complete Medications Current Medications Zolpidem Tartrate (Ambien) 5 mg PRN QHS PRN PO INSOMNIA, MAY REPEAT IN 1HR Last administered on 02/09/17 21:49; Start 01/29/17 at 18:45 Oxycodone HCl (Roxicodone) 5 mg PRN Q3HRS PRN PO BREAKTHROUGH PAIN Last administered on 02/08/17 09:18; Start 01/29/17 at 18:45 Acetaminophen (Tylenol) 650 mg PRN Q6HRS PRN PO Headaches, Temp > 101.5F Last administered on 02/08/17 21:24; Start 01/29/17 at 18:45 Ibuprofen (Motrin) 400 mg PRN Q6HRS PRN PO MILD PAIN; Start 01/29/17 at 18:45; Stop 02/05/17 at 09:24; Status DC Docusate Sodium (Colace) 100 mg BID PO Last administered on 02/01/17 08:42; Start 01/29/17 at 21:00; Stop 02/02/17 at 11:08; Status DC Magnesium Hydroxide (Milk Of Magnesia) 2,400 mg PRN Q12HR PRN PO CONSTIPATION; Start 01/29/17 at 18:45 Lactulose 20 gm PRN Q12HR PRN PO CONSTIPATION; Start 01/29/17 at 18:45; Stop at 09:12; Status DC Bisacodyl (Dulcolax Supp) 10 mg PRN DAILY PRN PA CONSTIPATION; Start 01/29/17 at 18:45; Stop 02/02/17 at 11:08; Status DC Enoxaparin Sodium (Lovenox 40mg Syringe) 40 mg Q12HR SQ Last administered on 21:09; Start 01/29/17 at 22:00; Stop 01/31/17 at 07:12; Status DC Alprazolam (Xanax) 0.25 mg QHS PRN PO ANXIETY / AGITATION Last administered on 02/09/17 21:49; Start 01/29/17 at 18:45 Carvedilol (Coreg) 12.5 mg BIDWMEALS PO Last administered on 01/29/17 21:51; Start 01/29/17 at 19:00; Stop 01/30/17 at 11:28; Status DC Cyclobenzaprine HCl (Flexeril) 10 mg BID PO Last administered on 02/12/17 08:03 ; Start 01/29/17 at 21:00 Fluconazole (Diflucan) 100 mg DAILY PO Last administered on 02/12/17 08:03; Start 01/30/17 at 09:00; Stop 02/12/17 at 09:25; Status DC Furosemide (Lasix) 40 mg BID92 PO ; Start 01/30/17 at 09:00; Stop 01/30/17 at 09 :00; Status DC Hydralazine HCl (Apresoline) 25 mg BID PO Last administered on 02/09/17 08:30; Start 01/29/17 at 21:00; Stop 02/11/17 at 13:26; Status DC Acetaminophen/ Hydrocodone Bitart (Lortab 5/325) 1 tab PRN Q6HRS PRN PO MILD PAIN Last administered on 02/09/17 21:52; Start 01/29/17 at 18:45; Stop 02/11/17 at 09:12; Status DC Lisinopril (Prinivil) 40 mg DAILY PO Last administered on 02/11/17 10:18; Start 01/30/17 at 09:00; Stop 02/11/17 at 13:25; Status DC Oxycodone/ Acetaminophen (Percocet 10/325) 1 tab PRN Q6HRS PRN PO MODERATE- SEVERE PAIN Last administered on 02/10/17 13:11; Start 01/29/17 at 18:45 Tramadol HCl (Ultram) 100 mg BID PO Last administered on 01/29/17 21:50; Start 01/29/17 at 21:00; Stop 01/30/17 at 11:51; Status DC Vitamin D (Vitamin D3) 5,000 unit DAILY PO Last administered on 02/12/17 08:03 ; Start 01/30/17 at 09:00 Gabapentin (Neurontin) 300 mg PRN DAILY PRN PO NERVE PAIN Last administered on 02/09/17 21:51; Start 01/29/17 at 21:00 Glimepiride (Amaryl) 4 mg BIDWMEALS PO Last administered on 02/08/17 09:10; Start 01/30/17 at 09:00; Stop 02/09/17 at 09:09; Status DC Insulin Detemir (Levemir) 40 units QHS SQ Last administered on 01/29/17 22:01 ; Start 01/29/17 at 21:00; Stop 01/30/17 at 11:51; Status DC Insulin Aspart (NovoLOG) 50 units TIDAC SQ Last administered on 01/29/17 22:00 ; Start 01/29/17 at 19:00; Stop 01/30/17 at 11:51; Status DC Non-Formulary Medication 1.2 mg DAILY SQ ; Start 01/30/17 at 09:00; Stop at 09:00; Status DC Pantoprazole Sodium (Protonix) 40 mg DAILYAC PO Last administered on 02/12/17 08:03; Start 01/30/17 at 07:30 Potassium Chloride (Klor-Con) 10 meq DAILYWBKFT PO Last administered on 08:59; Start 01/30/17 at 08:00; Stop 02/05/17 at 09:21; Status DC Insulin Aspart (NovoLOG) 0-9 UNITS TIDWMEALS SQ Last administered on 02/12/17 08:23; Start 01/30/17 at 08:00 Dextrose (Dextrose 50%-Water Syringe) 12.5 gm PRN Q15MIN PRN IV SEE COMMENTS; Start 01/29/17 at 18:45 Furosemide (Lasix) 40 mg 1X ONCE IVP Last administered on 01/29/17 21:52; Start 01/29/17 at 21:00; Stop 01/29/17 at 21:01; Status DC Furosemide (Lasix) 40 mg BID92 IVP Last administered on 01/30/17 11:01; Start 01/30/17 at 09:00; Stop 01/30/17 at 11:28; Status DC Lidocaine HCl (Xylocaine-Mpf 1% Vial) 2 ml STK-MED ONCE .ROUTE ; Start 01/29/17 at 20:37; Stop 01/29/17 at 20:38; Status DC Dextrose 250 ml @ 1,000 mls/hr 1X ONCE IV ; Start 01/30/17 at 07:45; Stop at 07:59; Status DC Glucose (Insta-Glucose) 15 gm PRN Q15MIN PRN PO LOW BLOOD SUGAR Last administered on 01/30/17 07:55; Start 01/30/17 at 08:00 Glucose (Insta-Glucose) 15 gm STK-MED ONCE .ROUTE ; Start 01/30/17 at 07:52; Stop 01/30/17 at 07:53; Status DC Lidocaine HCl (Xylocaine-Mpf 1% Vial) 2 ml STK-MED ONCE .ROUTE ; Start 01/29/17 at 21:00; Stop 01/30/17 at 09:01; Status DC Furosemide (Lasix) 40 mg DAILY IVP Last administered on 02/03/17 08:39; Start 01/31/17 at 09:00; Stop 02/03/17 at 15:50; Status DC Aspirin (Ecotrin) 81 mg DAILYWBKFT PO Last administered on 02/12/17 08:03; Start 01/30/17 at 12:30 Insulin Detemir (Levemir) 25 units QHS SQ Last administered on 02/02/17 20:54 ; Start 01/30/17 at 21:00; Stop 02/03/17 at 11:09; Status DC Gabapentin (Neurontin) 400 mg BID PO Last administered on 02/12/17 08:03; Start 01/31/17 at 09:00 Gabapentin (Neurontin) 100 mg 1X ONCE PO Last administered on 01/31/17 01:56 ; Start 01/31/17 at 02:00; Stop 01/31/17 at 02:01; Status DC Enoxaparin Sodium (Lovenox 40mg Syringe) 40 mg QHS SQ Last administered on 02/03 20:32; Start 01/31/17 at 21:00; Stop 02/04/17 at 09:32; Status DC Methylprednisolone Acetate (DEPO-Medrol 40MG VIAL) 40 mg 1X ONCE IM Last administered on 02/01/17 13:30; Start 02/01/17 at 13:30; Stop 02/01/17 at 13:31 ; Status DC Lidocaine/Sodium Bicarbonate (Buffered Lidocaine 1%) 20 ml 1X ONCE IJ Last administered on 02/01/17 13:30; Start 02/01/17 at 13:30; Stop 02/01/17 at 13:31 ; Status DC Labetalol HCl (Normodyne) 20 mg PRN Q2HR PRN IVP HYPERTENSION, SEE COMMENTS Last administered on 02/01/17 23:59; Start 02/01/17 at 23:30; Stop 02/03/17 at 15:47; Status DC Insulin Aspart (NovoLOG) 10 units TIDAC SQ Last administered on 02/06/17 07:30 ; Start 02/02/17 at 11:30; Stop 02/07/17 at 13:06; Status DC Insulin Aspart (NovoLOG VIAL) 15 unit 1X ONCE SQ ; Start 02/02/17 at 08:45; Stop 02/02/17 at 08:46; Status Cancel Insulin Aspart (NovoLOG) 15 units 1X ONCE SQ Last administered on 02/02/17 08 :42; Start 02/02/17 at 08:45; Stop 02/02/17 at 08:46; Status DC Loperamide HCl (Imodium) 2 mg PRN Q15MIN PRN PO DIARRHEA Last administered on 09:43; Start 02/02/17 at 11:15; Stop 02/03/17 at 12:31; Status DC Loperamide HCl (Imodium) 2 mg PRN Q15MIN PRN PO DIARRHEA Last administered on 01:35; Start 02/02/17 at 12:45; Stop 02/04/17 at 14:00; Status DC Insulin Detemir (Levemir) 35 units QHS SQ Last administered on 02/06/17 20:58; Start 02/03/17 at 21:00; Stop 02/07/17 at 13:06; Status DC Metoprolol Tartrate (Lopressor) 12.5 mg BID PO Last administered on 02/12/17 08 :09; Start 02/03/17 at 21:00 Furosemide (Lasix) 60 mg DAILY PO Last administered on 02/04/17 08:57; Start 02/04/17 at 09:00; Stop 02/04/17 at 14:34; Status DC Heparin Sodium (Porcine) (Heparin Sq) 5,000 unit Q8HRS SQ Last administered on 02/12/17 06:22; Start 02/04/17 at 14:00 Loperamide HCl (Imodium) 2 mg TID PO Last administered on 02/07/17 20:32; Start 02/04/17 at 14:00; Stop 02/09/17 at 10:50; Status DC Magnesium Sulfate/ Dextrose 50 ml @ 25 mls/hr PRN DAILY PRN IV for Mag < 1.7 on am labs; Start 02/04/17 at 14:30; Stop 02/05/17 at 10:05; Status DC Furosemide 100 mg/ Sodium Chloride 100 ml @ 0 mls/hr CONT PRN IV SEE I/O RECORD Last administered on 02/04/17 15:59; Start 02/04/17 at 14:30; Stop at 09:27; Status DC Acetylcysteine (Mucomyst 20% Oral Solution) 1,200 mg BID PO Last administered on 02/06/17 20:49; Start 02/05/17 at 09:00; Stop 02/07/17 at 08:59; Status DC Sodium Polystyrene Sulfonate (Kayexalate) 30 gm 1X ONCE PO Last administered on 02/06/17 09:49; Start 02/06/17 at 09:30; Stop 02/06/17 at 09:31; Status DC Dextrose 10 ml 1X ONCE IV Last administered on 02/06/17 09:56; Start 02/06/17 at 09:30; Stop 02/06/17 at 09:31; Status DC Insulin Human Regular (NovoLIN R VIAL) 10 unit 1X ONCE IV Last administered on 02/06/17 09:59; Start 02/06/17 at 09:30; Stop 02/06/17 at 09:31; Status DC Heparin Sodium/ Sodium Chloride 500 ml @ As Directed STK-MED ONCE .ROUTE ; Start 02/06/17 at 10:10; Stop 02/06/17 at 10:11; Status DC Lidocaine HCl 20 ml STK-MED ONCE .ROUTE ; Start 02/06/17 at 10:10; Stop 02/06/17 at 10:11; Status DC Fentanyl Citrate (Fentanyl 2ml Vial) 100 mcg STK-MED ONCE .ROUTE ; Start at 10:39; Stop 02/06/17 at 10:40; Status DC Midazolam HCl (Versed) 2 mg STK-MED ONCE .ROUTE ; Start 02/06/17 at 10:39; Stop 02/06/17 at 10:40; Status DC Heparin Sodium/ Sodium Chloride 1,000 unit 1X ONCE IART Last administered on 11:10; Start 02/06/17 at 11:15; Stop 02/06/17 at 11:16; Status DC Midazolam HCl (Versed) 1 mg 1X ONCE IV Last administered on 02/06/17 11:11; Start 02/06/17 at 11:15; Stop 02/06/17 at 11:16; Status DC Fentanyl Citrate (Fentanyl 2ml Vial) 50 mcg 1X ONCE IV Last administered on 11:11; Start 02/06/17 at 11:15; Stop 02/06/17 at 11:16; Status DC Lidocaine HCl 20 ml 1X ONCE IJ Last administered on 02/06/17 11:10; Start 02/06 at 11:15; Stop 02/06/17 at 11:16; Status DC Sodium Chloride (Normal Saline Flush) 3 ml QSHIFT PRN IV AFTER MEDS AND BLOOD DRAWS; Start 02/06/17 at 11:15 Nitroglycerin (Nitrostat) 0.4 mg PRN Q5MIN PRN SL CHEST PAIN; Start 02/06/17 at 11:15 Iron Sucrose 200 mg/Sodium Chloride 110 ml @ 55 mls/hr 3X/WEEK IV Last administered on 02/06/17 16:30; Start 02/06/17 at 13:00; Stop 02/11/17 at 09:12; Status DC Furosemide 100 mg/ Sodium Chloride 100 ml @ 0 mls/hr CONT PRN IV SEE I/O RECORD Last administered on 02/10/17 12:59; Start 02/06/17 at 13:30; Stop at 09:12; Status DC Insulin Detemir (Levemir) 20 units QHS SQ ; Start 02/07/17 at 21:00; Stop at 09:08; Status DC Furosemide (Lasix) 20 mg 1X ONCE IVP ; Start 02/07/17 at 13:30; Stop 02/07/17 at 13:31; Status Cancel Diclofenac Sodium (Voltaren) 1 katia BID TP Last administered on 02/12/17 08:04; Start 02/08/17 at 13:30 Lidocaine HCl 16 ml/Sodium Bicarbonate 4 meq/ Miscellaneous 20 ml @ 20 mls/hr 1X ONCE ID ; Start 02/09/17 at 06:00; Stop 02/09/17 at 06:59; Status UNV Lidocaine HCl 10 ml 1X ONCE INJ Last administered on 02/08/17 15:44; Start 02/08/17 at 14:00; Stop 02/08/17 at 14:01; Status DC Amlodipine Besylate (Norvasc) 10 mg DAILY PO Last administered on 02/12/17 08: 10; Start 02/09/17 at 09:00 Amlodipine Besylate (Norvasc) 10 mg 1X ONCE PO Last administered on 02/08/17 15:43; Start 02/08/17 at 16:00; Stop 02/08/17 at 16:01; Status DC Insulin Detemir (Levemir) 12 units QHS SQ Last administered on 02/10/17 21:02; Start 02/09/17 at 21:00; Stop 02/11/17 at 10:15; Status DC Ceftriaxone Sodium 1 gm/ Sodium Chloride 50 ml @ 100 mls/hr Q24H IV Last administered on 02/09/17 11:41; Start 02/09/17 at 10:00; Stop 02/10/17 at 09:25; Status DC Loperamide HCl (Imodium) 2 mg PRN TID PRN PO if diarrhea recurs; Start 02/09/17 at 11:00 Lidocaine HCl (Xylocaine-Mpf 1% Vial) 2 ml STK-MED ONCE .ROUTE ; Start 02/10/17 at 06:35; Stop 02/10/17 at 06:36; Status DC Prednisone (Prednisone) 60 mg 1X ONCE PO Last administered on 02/10/17 09:53; Start 02/10/17 at 09:30; Stop 02/10/17 at 09:41; Status DC Prednisone (Prednisone) 40 mg DAILY PO Last administered on 02/12/17 08:02; Start 02/11/17 at 09:00 Colchicine (Colcrys) 1.2 mg 1X ONCE PO Last administered on 02/10/17 09:53; Start 02/10/17 at 09:30; Stop 02/10/17 at 09:41; Status DC Colchicine (Colcrys) 0.6 mg DAILY PO ; Start 02/11/17 at 09:00; Stop 02/11/17 at 09:00; Status DC Lidocaine HCl 1 ml STK-MED ONCE .ROUTE ; Start 02/11/17 at 09:38; Stop 02/11/17 at 09:39; Status DC Insulin Detemir (Levemir) 20 units QHS SQ Last administered on 02/11/17 20:58; Start 02/11/17 at 21:00 Insulin Aspart (NovoLOG) 15 units 1X ONCE SQ Last administered on 02/11/17 10: 15; Start 02/11/17 at 10:15; Stop 02/11/17 at 10:16; Status DC Insulin Aspart (NovoLOG) 8 units TIDAC SQ Last administered on 02/12/17 08:22; Start 02/11/17 at 11:30 Glycerin (Sani-Supp Adult) 1 supp 1X ONCE PA Last administered on 02/11/17 16: 37; Start 02/11/17 at 16:15; Stop 02/11/17 at 16:16; Status DC Active Scripts Active Xanax (Alprazolam) 0.25 Mg Tablet 0.25 Mg PO QHS PRN Oxycodone-Acetaminophen 10-325 (Oxycodone Hcl/Acetaminophen) 1 Each Tablet 1 Tab PO PRN Q6HRS PRN Hydralazine Hcl 25 Mg Tablet 25 Mg PO BID Carvedilol 12.5 Mg Tablet 12.5 Mg PO BIDWMEALS Fluconazole 100 Mg Tablet 1 Tab PO DAILY Lasix (Furosemide) 40 Mg Tablet 40 Mg PO BID Reported Lisinopril 40 Mg Tablet 1 Tab PO DAILY Humalog (Insulin Lispro) 100 Unit/1 Ml Vial 50 Unit SQ TID Lortab 5-325 mg Tablet (Hydrocodone/Acetaminophen) 1 Each Tablet 1 Tab PO PRN Q6HRS PRN Levemir (Insulin Detemir) 100 Unit/1 Ml Vial 40 Unit SQ HS Victoza 3-Devon (Liraglutide) 0.6 Mg/0.1 Ml Pen.injctr 1.2 Mg SQ DAILY Gabapentin 300 Mg Capsule 1 Cap PO DAILY PRN Vitamin D3 (Cholecalciferol (Vitamin D3)) 5,000 Unit Tablet 1 Tab PO DAILY Glimepiride 4 Mg Tablet 1 Tab PO BID Tramadol Hcl 50 Mg Tablet 2 Tab PO BID Cyclobenzaprine Hcl 10 Mg Tablet 1 Tab PO BID Klor-Con 10 (Potassium Chloride) 10 Meq Tablet.er 1 Tab PO DAILY Omeprazole 20 Mg Capsule.dr 1 Cap PO DAILY Vitals/I & O Vital Sign - Last 24 Hours 02/11/17 02/11/17 02/11/17 02/11/17 10:18 10:19 11:00 19:44 Temp 97.3 97.8 97.3 97.8 Pulse 71 71 74 88 Resp 18 18 B/P (MAP) 115/58 115/51 115/58 (77) 120/57 (78) Pulse Ox 94 95 O2 Delivery Nasal Cannula Nasal Cannula O2 Flow Rate 2.0 2.0 02/11/17 02/11/17 02/11/17 02/12/17 20:00 20:55 22:23 02:35 Temp 97.8 98.0 97.8 98.0 Pulse 88 70 57 Resp 18 18 B/P (MAP) 120/57 115/64 (81) 102/61 (75) Pulse Ox 96 O2 Delivery Nasal Cannula Nasal Cannula Nasal Cannula O2 Flow Rate 2.0 2.0 2.0 02/12/17 02/12/17 02/12/17 07:00 08:09 08:10 Temp 97.4 97.4 Pulse 70 76 76 Resp 18 B/P (MAP) 113/62 (79) 113/62 113/62 Pulse Ox 97 O2 Delivery Nasal Cannula O2 Flow Rate 2.0 Intake and Output 02/11/17 02/11/17 02/12/17 15:00 23:00 07:00 Intake Total 60 ml 500 ml 200 ml Output Total 200 ml Balance 60 ml 300 ml 200 ml GABRIEL LAWS MD Feb 12, 2017 10:19
--- NOTE | 2017-02-12 10:48 | PDOC ---
Subjective: Subjective: Significant stool yesterday. No GI complaints. Objective: Vital Signs: Vital Signs Date Time Temp Pulse Resp B/P (MAP) Pulse Ox O2 Delivery O2 Flow Rate FiO2 02/12/17 08:10 76 113/62 02/12/17 07:00 97.4 18 97 Nasal Cannula 2.0 97.4 Labs: Laboratory Tests Test 02/11/17 11:45 02/11/17 17:27 02/11/17 20:37 02/12/17 02:45 Glucose (Fingerstick) 407 mg/dL 297 mg/dL 324 mg/dL White Blood Count 6.5 x10^3/uL Red Blood Count 3.22 x10^6/uL Hemoglobin 9.2 g/dL Hematocrit 28.7 % Mean Corpuscular Volume 89 fL Mean Corpuscular Hemoglobin 29 pg Mean Corpuscular Hemoglobin Concent 32 g/dL Red Cell Distribution Width 15.5 % Platelet Count 163 x10^3/uL Neutrophils (%) (Auto) 85 % Lymphocytes (%) (Auto) 11 % Monocytes (%) (Auto) 4 % Eosinophils (%) (Auto) 0 % Basophils (%) (Auto) 0 % Neutrophils # (Auto) 5.5 x10^3uL Lymphocytes # (Auto) 0.7 x10^3/uL Monocytes # (Auto) 0.3 x10^3/uL Eosinophils # (Auto) 0.0 x10^3/uL Basophils # (Auto) 0.0 x10^3/uL Sodium Level 137 mmol/L Potassium Level 4.6 mmol/L Chloride Level 100 mmol/L Carbon Dioxide Level 27 mmol/L Anion Gap 10 Blood Urea Nitrogen 87 mg/dL Creatinine 4.6 mg/dL Estimated GFR (Cockcroft-Gault) 9.5 Glucose Level 347 mg/dL Calcium Level 8.3 mg/dL PE: GEN: NAD, laying in bed ABD: S/ND/NT NEURO/PSYCH: A & O 3 A/P: CHF, CKD, knee pain, BLE edema Anemia -Hgb stable on IV iron and PO PPI, last EGD/colon 2014 -- No new GI recs. ANALI JOHNSON Feb 12, 2017 10:48
[2017-02-12 11:00] VITALS: BP 100/56
--- NOTE | 2017-02-12 12:06 | PDOC ---
PROGRESS NOTES Chief Complaint Chief Complaint CHF exacerbation ASSESSMENT AND PLAN: 1. JOSE: oliguric. poss 2/2 diarrhea and lasix. worsening xcreatinine. start IVF, ?need for HD 2. CHF exacerbation: echo with EF 60-65%, pA pressure 61. s/p RHC 02/06/17- normal. clinically improving. off lasix gtt (resultant JOSE) 3. HTN: well controlled on home meds (JOVANNA-I, norvasc) 4. Lymphedema: chronic 5. CKD: underlying; baseline creat 6. DM2: poorly controlled at home (HgbA1c 11.9), brittle control here. currently high 2/2 steroid use. cont levemir, ISS 7. Gout: acute in R knee, s/p tap. stop colchris with current JOSE, is on steroids. 8. Pain control: Oxy 5-10 PRN 9. Anemia: chronic dz: received venofer x3. continue low dose PO 10. Prophylaxis: Heparin SQ, PPI 11. Morbid obesity 12. Limited mobility, wheelchair-bound. 13. Depression: tears up easily. start SSRI History of Present Illness History of Present Illness knee pain much improved. tearful about "afib and my heart" Vitals Vitals Vital Signs Date Time Temp Pulse Resp B/P (MAP) Pulse Ox O2 Delivery O2 Flow Rate FiO2 02/12/17 11:00 97.1 54 18 100/56 (71) 95 Nasal Cannula 2.0 97.1 Physical Exam General: Alert, Oriented X3, Cooperative, No acute distress Heart: Regular rate Lungs: Clear, Other (no wheezing) Abdomen: Normal bowel sounds, Soft, No tenderness Extremities: Normal pulses, Other (legs in braces, no erythema/bruising at knees. 2+ chronic edema) Skin: No significant lesion Labs LABS Laboratory Tests Test 02/11/17 17:27 02/11/17 20:37 02/12/17 02:45 Glucose (Fingerstick) 297 mg/dL (70-99) 324 mg/dL (70-99) White Blood Count 6.5 x10^3/uL (4.0-11.0) Red Blood Count 3.22 x10^6/uL (3.50-5.40) Hemoglobin 9.2 g/dL (12.0-15.5) Hematocrit 28.7 % (36.0-47.0) Mean Corpuscular Volume 89 fL (79-100) Mean Corpuscular Hemoglobin 29 pg (25-35) Mean Corpuscular Hemoglobin Concent 32 g/dL (31-37) Red Cell Distribution Width 15.5 % (11.5-14.5) Platelet Count 163 x10^3/uL (140-400) Neutrophils (%) (Auto) 85 % (31-73) Lymphocytes (%) (Auto) 11 % (24-48) Monocytes (%) (Auto) 4 % (0-9) Eosinophils (%) (Auto) 0 % (0-3) Basophils (%) (Auto) 0 % (0-3) Neutrophils # (Auto) 5.5 x10^3uL (1.8-7.7) Lymphocytes # (Auto) 0.7 x10^3/uL (1.0-4.8) Monocytes # (Auto) 0.3 x10^3/uL (0.0-1.1) Eosinophils # (Auto) 0.0 x10^3/uL (0.0-0.7) Basophils # (Auto) 0.0 x10^3/uL (0.0-0.2) Sodium Level 137 mmol/L (136-145) Potassium Level 4.6 mmol/L (3.5-5.1) Chloride Level 100 mmol/L (98-107) Carbon Dioxide Level 27 mmol/L (21-32) Anion Gap 10 (6-14) Blood Urea Nitrogen 87 mg/dL (7-20) Creatinine 4.6 mg/dL (0.6-1.0) Estimated GFR (Cockcroft-Gault) 9.5 Glucose Level 347 mg/dL (70-99) Calcium Level 8.3 mg/dL (8.5-10.1) Comment Review of Relevant I have reviewed the following items kai (where applicable) has been applied. Labs Laboratory Tests Test 02/10/17 12:03 02/10/17 17:17 02/10/17 20:50 02/11/17 03:25 Glucose (Fingerstick) 77 mg/dL (70-99) 223 mg/dL (70-99) 296 mg/dL (70-99) Sodium Level 141 mmol/L (136-145) Potassium Level 4.7 mmol/L (3.5-5.1) Chloride Level 104 mmol/L (98-107) Carbon Dioxide Level 28 mmol/L (21-32) Anion Gap 9 (6-14) Blood Urea Nitrogen 72 mg/dL (7-20) Creatinine 4.3 mg/dL (0.6-1.0) Estimated GFR (Cockcroft-Gault) 10.2 Glucose Level 356 mg/dL (70-99) Calcium Level 8.5 mg/dL (8.5-10.1) Phosphorus Level 6.5 mg/dL (2.6-4.7) Albumin 1.8 g/dL (3.4-5.0) Test 02/11/17 08:00 02/11/17 11:45 02/11/17 17:27 02/11/17 20:37 Glucose (Fingerstick) 381 mg/dL (70-99) 407 mg/dL (70-99) 297 mg/dL (70-99) 324 mg/dL (70-99) Test 02/12/17 02:45 White Blood Count 6.5 x10^3/uL (4.0-11.0) Red Blood Count 3.22 x10^6/uL (3.50-5.40) Hemoglobin 9.2 g/dL (12.0-15.5) Hematocrit 28.7 % (36.0-47.0) Mean Corpuscular Volume 89 fL (79-100) Mean Corpuscular Hemoglobin 29 pg (25-35) Mean Corpuscular Hemoglobin Concent 32 g/dL (31-37) Red Cell Distribution Width 15.5 % (11.5-14.5) Platelet Count 163 x10^3/uL (140-400) Neutrophils (%) (Auto) 85 % (31-73) Lymphocytes (%) (Auto) 11 % (24-48) Monocytes (%) (Auto) 4 % (0-9) Eosinophils (%) (Auto) 0 % (0-3) Basophils (%) (Auto) 0 % (0-3) Neutrophils # (Auto) 5.5 x10^3uL (1.8-7.7) Lymphocytes # (Auto) 0.7 x10^3/uL (1.0-4.8) Monocytes # (Auto) 0.3 x10^3/uL (0.0-1.1) Eosinophils # (Auto) 0.0 x10^3/uL (0.0-0.7) Basophils # (Auto) 0.0 x10^3/uL (0.0-0.2) Sodium Level 137 mmol/L (136-145) Potassium Level 4.6 mmol/L (3.5-5.1) Chloride Level 100 mmol/L (98-107) Carbon Dioxide Level 27 mmol/L (21-32) Anion Gap 10 (6-14) Blood Urea Nitrogen 87 mg/dL (7-20) Creatinine 4.6 mg/dL (0.6-1.0) Estimated GFR (Cockcroft-Gault) 9.5 Glucose Level 347 mg/dL (70-99) Calcium Level 8.3 mg/dL (8.5-10.1) Laboratory Tests Test 02/11/17 17:27 02/11/17 20:37 02/12/17 02:45 Glucose (Fingerstick) 297 mg/dL (70-99) 324 mg/dL (70-99) White Blood Count 6.5 x10^3/uL (4.0-11.0) Red Blood Count 3.22 x10^6/uL (3.50-5.40) Hemoglobin 9.2 g/dL (12.0-15.5) Hematocrit 28.7 % (36.0-47.0) Mean Corpuscular Volume 89 fL (79-100) Mean Corpuscular Hemoglobin 29 pg (25-35) Mean Corpuscular Hemoglobin Concent 32 g/dL (31-37) Red Cell Distribution Width 15.5 % (11.5-14.5) Platelet Count 163 x10^3/uL (140-400) Neutrophils (%) (Auto) 85 % (31-73) Lymphocytes (%) (Auto) 11 % (24-48) Monocytes (%) (Auto) 4 % (0-9) Eosinophils (%) (Auto) 0 % (0-3) Basophils (%) (Auto) 0 % (0-3) Neutrophils # (Auto) 5.5 x10^3uL (1.8-7.7) Lymphocytes # (Auto) 0.7 x10^3/uL (1.0-4.8) Monocytes # (Auto) 0.3 x10^3/uL (0.0-1.1) Eosinophils # (Auto) 0.0 x10^3/uL (0.0-0.7) Basophils # (Auto) 0.0 x10^3/uL (0.0-0.2) Sodium Level 137 mmol/L (136-145) Potassium Level 4.6 mmol/L (3.5-5.1) Chloride Level 100 mmol/L (98-107) Carbon Dioxide Level 27 mmol/L (21-32) Anion Gap 10 (6-14) Blood Urea Nitrogen 87 mg/dL (7-20) Creatinine 4.6 mg/dL (0.6-1.0) Estimated GFR (Cockcroft-Gault) 9.5 Glucose Level 347 mg/dL (70-99) Calcium Level 8.3 mg/dL (8.5-10.1) Microbiology 02/08/17 Gram Stain - Final, Complete Medications Current Medications Zolpidem Tartrate (Ambien) 5 mg PRN QHS PRN PO INSOMNIA, MAY REPEAT IN 1HR Last administered on 02/09/17 21:49; Start 01/29/17 at 18:45 Oxycodone HCl (Roxicodone) 5 mg PRN Q3HRS PRN PO BREAKTHROUGH PAIN Last administered on 02/08/17 09:18; Start 01/29/17 at 18:45 Acetaminophen (Tylenol) 650 mg PRN Q6HRS PRN PO Headaches, Temp > 101.5F Last administered on 02/08/17 21:24; Start 01/29/17 at 18:45 Ibuprofen (Motrin) 400 mg PRN Q6HRS PRN PO MILD PAIN; Start 01/29/17 at 18:45; Stop 02/05/17 at 09:24; Status DC Docusate Sodium (Colace) 100 mg BID PO Last administered on 02/01/17 08:42; Start 01/29/17 at 21:00; Stop 02/02/17 at 11:08; Status DC Magnesium Hydroxide (Milk Of Magnesia) 2,400 mg PRN Q12HR PRN PO CONSTIPATION; Start 01/29/17 at 18:45 Lactulose 20 gm PRN Q12HR PRN PO CONSTIPATION; Start 01/29/17 at 18:45; Stop at 09:12; Status DC Bisacodyl (Dulcolax Supp) 10 mg PRN DAILY PRN [place] CONSTIPATION; Start 01/29/17 at 18:45; Stop 02/02/17 at 11:08; Status DC Enoxaparin Sodium (Lovenox 40mg Syringe) 40 mg Q12HR SQ Last administered on 21:09; Start 01/29/17 at 22:00; Stop 01/31/17 at 07:12; Status DC Alprazolam (Xanax) 0.25 mg QHS PRN PO ANXIETY / AGITATION Last administered on 02/09/17 21:49; Start 01/29/17 at 18:45 Carvedilol (Coreg) 12.5 mg BIDWMEALS PO Last administered on 01/29/17 21:51; Start 01/29/17 at 19:00; Stop 01/30/17 at 11:28; Status DC Cyclobenzaprine HCl (Flexeril) 10 mg BID PO Last administered on 02/12/17 08:03 ; Start 01/29/17 at 21:00 Fluconazole (Diflucan) 100 mg DAILY PO Last administered on 02/12/17 08:03; Start 01/30/17 at 09:00; Stop 02/12/17 at 09:25; Status DC Furosemide (Lasix) 40 mg BID92 PO ; Start 01/30/17 at 09:00; Stop 01/30/17 at 09 :00; Status DC Hydralazine HCl (Apresoline) 25 mg BID PO Last administered on 02/09/17 08:30; Start 01/29/17 at 21:00; Stop 02/11/17 at 13:26; Status DC Acetaminophen/ Hydrocodone Bitart (Lortab 5/325) 1 tab PRN Q6HRS PRN PO MILD PAIN Last administered on 02/09/17 21:52; Start 01/29/17 at 18:45; Stop 02/11/17 at 09:12; Status DC Lisinopril (Prinivil) 40 mg DAILY PO Last administered on 02/11/17 10:18; Start 01/30/17 at 09:00; Stop 02/11/17 at 13:25; Status DC Oxycodone/ Acetaminophen (Percocet 10/325) 1 tab PRN Q6HRS PRN PO MODERATE- SEVERE PAIN Last administered on 02/10/17 13:11; Start 01/29/17 at 18:45 Tramadol HCl (Ultram) 100 mg BID PO Last administered on 01/29/17 21:50; Start 01/29/17 at 21:00; Stop 01/30/17 at 11:51; Status DC Vitamin D (Vitamin D3) 5,000 unit DAILY PO Last administered on 02/12/17 08:03 ; Start 01/30/17 at 09:00 Gabapentin (Neurontin) 300 mg PRN DAILY PRN PO NERVE PAIN Last administered on 02/09/17 21:51; Start 01/29/17 at 21:00 Glimepiride (Amaryl) 4 mg BIDWMEALS PO Last administered on 02/08/17 09:10; Start 01/30/17 at 09:00; Stop 02/09/17 at 09:09; Status DC Insulin Detemir (Levemir) 40 units QHS SQ Last administered on 01/29/17 22:01 ; Start 01/29/17 at 21:00; Stop 01/30/17 at 11:51; Status DC Insulin Aspart (NovoLOG) 50 units TIDAC SQ Last administered on 01/29/17 22:00 ; Start 01/29/17 at 19:00; Stop 01/30/17 at 11:51; Status DC Non-Formulary Medication 1.2 mg DAILY SQ ; Start 01/30/17 at 09:00; Stop at 09:00; Status DC Pantoprazole Sodium (Protonix) 40 mg DAILYAC PO Last administered on 02/12/17 08:03; Start 01/30/17 at 07:30 Potassium Chloride (Klor-Con) 10 meq DAILYWBKFT PO Last administered on 08:59; Start 01/30/17 at 08:00; Stop 02/05/17 at 09:21; Status DC Insulin Aspart (NovoLOG) 0-9 UNITS TIDWMEALS SQ Last administered on 02/12/17 08:23; Start 01/30/17 at 08:00 Dextrose (Dextrose 50%-Water Syringe) 12.5 gm PRN Q15MIN PRN IV SEE COMMENTS; Start 01/29/17 at 18:45 Furosemide (Lasix) 40 mg 1X ONCE IVP Last administered on 01/29/17 21:52; Start 01/29/17 at 21:00; Stop 01/29/17 at 21:01; Status DC Furosemide (Lasix) 40 mg BID92 IVP Last administered on 01/30/17 11:01; Start 01/30/17 at 09:00; Stop 01/30/17 at 11:28; Status DC Lidocaine HCl (Xylocaine-Mpf 1% Vial) 2 ml STK-MED ONCE .ROUTE ; Start 01/29/17 at 20:37; Stop 01/29/17 at 20:38; Status DC Dextrose 250 ml @ 1,000 mls/hr 1X ONCE IV ; Start 01/30/17 at 07:45; Stop at 07:59; Status DC Glucose (Insta-Glucose) 15 gm PRN Q15MIN PRN PO LOW BLOOD SUGAR Last administered on 01/30/17 07:55; Start 01/30/17 at 08:00 Glucose (Insta-Glucose) 15 gm STK-MED ONCE .ROUTE ; Start 01/30/17 at 07:52; Stop 01/30/17 at 07:53; Status DC Lidocaine HCl (Xylocaine-Mpf 1% Vial) 2 ml STK-MED ONCE .ROUTE ; Start 01/29/17 at 21:00; Stop 01/30/17 at 09:01; Status DC Furosemide (Lasix) 40 mg DAILY IVP Last administered on 02/03/17 08:39; Start 01/31/17 at 09:00; Stop 02/03/17 at 15:50; Status DC Aspirin (Ecotrin) 81 mg DAILYWBKFT PO Last administered on 02/12/17 08:03; Start 01/30/17 at 12:30 Insulin Detemir (Levemir) 25 units QHS SQ Last administered on 02/02/17 20:54 ; Start 01/30/17 at 21:00; Stop 02/03/17 at 11:09; Status DC Gabapentin (Neurontin) 400 mg BID PO Last administered on 02/12/17 08:03; Start 01/31/17 at 09:00 Gabapentin (Neurontin) 100 mg 1X ONCE PO Last administered on 01/31/17 01:56 ; Start 01/31/17 at 02:00; Stop 01/31/17 at 02:01; Status DC Enoxaparin Sodium (Lovenox 40mg Syringe) 40 mg QHS SQ Last administered on 02/03 20:32; Start 01/31/17 at 21:00; Stop 02/04/17 at 09:32; Status DC Methylprednisolone Acetate (DEPO-Medrol 40MG VIAL) 40 mg 1X ONCE IM Last administered on 02/01/17 13:30; Start 02/01/17 at 13:30; Stop 02/01/17 at 13:31 ; Status DC Lidocaine/Sodium Bicarbonate (Buffered Lidocaine 1%) 20 ml 1X ONCE IJ Last administered on 02/01/17 13:30; Start 02/01/17 at 13:30; Stop 02/01/17 at 13:31 ; Status DC Labetalol HCl (Normodyne) 20 mg PRN Q2HR PRN IVP HYPERTENSION, SEE COMMENTS Last administered on 02/01/17 23:59; Start 02/01/17 at 23:30; Stop 02/03/17 at 15:47; Status DC Insulin Aspart (NovoLOG) 10 units TIDAC SQ Last administered on 02/06/17 07:30 ; Start 02/02/17 at 11:30; Stop 02/07/17 at 13:06; Status DC Insulin Aspart (NovoLOG VIAL) 15 unit 1X ONCE SQ ; Start 02/02/17 at 08:45; Stop 02/02/17 at 08:46; Status Cancel Insulin Aspart (NovoLOG) 15 units 1X ONCE SQ Last administered on 02/02/17 08 :42; Start 02/02/17 at 08:45; Stop 02/02/17 at 08:46; Status DC Loperamide HCl (Imodium) 2 mg PRN Q15MIN PRN PO DIARRHEA Last administered on 09:43; Start 02/02/17 at 11:15; Stop 02/03/17 at 12:31; Status DC Loperamide HCl (Imodium) 2 mg PRN Q15MIN PRN PO DIARRHEA Last administered on 01:35; Start 02/02/17 at 12:45; Stop 02/04/17 at 14:00; Status DC Insulin Detemir (Levemir) 35 units QHS SQ Last administered on 02/06/17 20:58; Start 02/03/17 at 21:00; Stop 02/07/17 at 13:06; Status DC Metoprolol Tartrate (Lopressor) 12.5 mg BID PO Last administered on 02/12/17 08 :09; Start 02/03/17 at 21:00 Furosemide (Lasix) 60 mg DAILY PO Last administered on 02/04/17 08:57; Start 02/04/17 at 09:00; Stop 02/04/17 at 14:34; Status DC Heparin Sodium (Porcine) (Heparin Sq) 5,000 unit Q8HRS SQ Last administered on 02/12/17 06:22; Start 02/04/17 at 14:00 Loperamide HCl (Imodium) 2 mg TID PO Last administered on 02/07/17 20:32; Start 02/04/17 at 14:00; Stop 02/09/17 at 10:50; Status DC Magnesium Sulfate/ Dextrose 50 ml @ 25 mls/hr PRN DAILY PRN IV for Mag < 1.7 on am labs; Start 02/04/17 at 14:30; Stop 02/05/17 at 10:05; Status DC Furosemide 100 mg/ Sodium Chloride 100 ml @ 0 mls/hr CONT PRN IV SEE I/O RECORD Last administered on 02/04/17 15:59; Start 02/04/17 at 14:30; Stop at 09:27; Status DC Acetylcysteine (Mucomyst 20% Oral Solution) 1,200 mg BID PO Last administered on 02/06/17 20:49; Start 02/05/17 at 09:00; Stop 02/07/17 at 08:59; Status DC Sodium Polystyrene Sulfonate (Kayexalate) 30 gm 1X ONCE PO Last administered on 02/06/17 09:49; Start 02/06/17 at 09:30; Stop 02/06/17 at 09:31; Status DC Dextrose 10 ml 1X ONCE IV Last administered on 02/06/17 09:56; Start 02/06/17 at 09:30; Stop 02/06/17 at 09:31; Status DC Insulin Human Regular (NovoLIN R VIAL) 10 unit 1X ONCE IV Last administered on 02/06/17 09:59; Start 02/06/17 at 09:30; Stop 02/06/17 at 09:31; Status DC Heparin Sodium/ Sodium Chloride 500 ml @ As Directed STK-MED ONCE .ROUTE ; Start 02/06/17 at 10:10; Stop 02/06/17 at 10:11; Status DC Lidocaine HCl 20 ml STK-MED ONCE .ROUTE ; Start 02/06/17 at 10:10; Stop 02/06/17 at 10:11; Status DC Fentanyl Citrate (Fentanyl 2ml Vial) 100 mcg STK-MED ONCE .ROUTE ; Start at 10:39; Stop 02/06/17 at 10:40; Status DC Midazolam HCl (Versed) 2 mg STK-MED ONCE .ROUTE ; Start 02/06/17 at 10:39; Stop 02/06/17 at 10:40; Status DC Heparin Sodium/ Sodium Chloride 1,000 unit 1X ONCE IART Last administered on 11:10; Start 02/06/17 at 11:15; Stop 02/06/17 at 11:16; Status DC Midazolam HCl (Versed) 1 mg 1X ONCE IV Last administered on 02/06/17 11:11; Start 02/06/17 at 11:15; Stop 02/06/17 at 11:16; Status DC Fentanyl Citrate (Fentanyl 2ml Vial) 50 mcg 1X ONCE IV Last administered on 11:11; Start 02/06/17 at 11:15; Stop 02/06/17 at 11:16; Status DC Lidocaine HCl 20 ml 1X ONCE IJ Last administered on 02/06/17 11:10; Start 02/06 at 11:15; Stop 02/06/17 at 11:16; Status DC Sodium Chloride (Normal Saline Flush) 3 ml QSHIFT PRN IV AFTER MEDS AND BLOOD DRAWS; Start 02/06/17 at 11:15 Nitroglycerin (Nitrostat) 0.4 mg PRN Q5MIN PRN SL CHEST PAIN; Start 02/06/17 at 11:15 Iron Sucrose 200 mg/Sodium Chloride 110 ml @ 55 mls/hr 3X/WEEK IV Last administered on 02/06/17 16:30; Start 02/06/17 at 13:00; Stop 02/11/17 at 09:12; Status DC Furosemide 100 mg/ Sodium Chloride 100 ml @ 0 mls/hr CONT PRN IV SEE I/O RECORD Last administered on 02/10/17 12:59; Start 02/06/17 at 13:30; Stop at 09:12; Status DC Insulin Detemir (Levemir) 20 units QHS SQ ; Start 02/07/17 at 21:00; Stop at 09:08; Status DC Furosemide (Lasix) 20 mg 1X ONCE IVP ; Start 02/07/17 at 13:30; Stop 02/07/17 at 13:31; Status Cancel Diclofenac Sodium (Voltaren) 1 katia BID TP Last administered on 02/12/17 08:04; Start 02/08/17 at 13:30 Lidocaine HCl 16 ml/Sodium Bicarbonate 4 meq/ Miscellaneous 20 ml @ 20 mls/hr 1X ONCE ID ; Start 02/09/17 at 06:00; Stop 02/09/17 at 06:59; Status UNV Lidocaine HCl 10 ml 1X ONCE INJ Last administered on 02/08/17 15:44; Start 02/08/17 at 14:00; Stop 02/08/17 at 14:01; Status DC Amlodipine Besylate (Norvasc) 10 mg DAILY PO Last administered on 02/12/17 08: 10; Start 02/09/17 at 09:00 Amlodipine Besylate (Norvasc) 10 mg 1X ONCE PO Last administered on 02/08/17 15:43; Start 02/08/17 at 16:00; Stop 02/08/17 at 16:01; Status DC Insulin Detemir (Levemir) 12 units QHS SQ Last administered on 02/10/17 21:02; Start 02/09/17 at 21:00; Stop 02/11/17 at 10:15; Status DC Ceftriaxone Sodium 1 gm/ Sodium Chloride 50 ml @ 100 mls/hr Q24H IV Last administered on 02/09/17 11:41; Start 02/09/17 at 10:00; Stop 02/10/17 at 09:25; Status DC Loperamide HCl (Imodium) 2 mg PRN TID PRN PO if diarrhea recurs; Start 02/09/17 at 11:00 Lidocaine HCl (Xylocaine-Mpf 1% Vial) 2 ml STK-MED ONCE .ROUTE ; Start 02/10/17 at 06:35; Stop 02/10/17 at 06:36; Status DC Prednisone (Prednisone) 60 mg 1X ONCE PO Last administered on 02/10/17 09:53; Start 02/10/17 at 09:30; Stop 02/10/17 at 09:41; Status DC Prednisone (Prednisone) 40 mg DAILY PO Last administered on 02/12/17 08:02; Start 02/11/17 at 09:00 Colchicine (Colcrys) 1.2 mg 1X ONCE PO Last administered on 02/10/17 09:53; Start 02/10/17 at 09:30; Stop 02/10/17 at 09:41; Status DC Colchicine (Colcrys) 0.6 mg DAILY PO ; Start 02/11/17 at 09:00; Stop 02/11/17 at 09:00; Status DC Lidocaine HCl 1 ml STK-MED ONCE .ROUTE ; Start 02/11/17 at 09:38; Stop 02/11/17 at 09:39; Status DC Insulin Detemir (Levemir) 20 units QHS SQ Last administered on 02/11/17 20:58; Start 02/11/17 at 21:00 Insulin Aspart (NovoLOG) 15 units 1X ONCE SQ Last administered on 02/11/17 10: 15; Start 02/11/17 at 10:15; Stop 02/11/17 at 10:16; Status DC Insulin Aspart (NovoLOG) 8 units TIDAC SQ Last administered on 02/12/17 08:22; Start 02/11/17 at 11:30 Glycerin (Sani-Supp Adult) 1 supp 1X ONCE VA Last administered on 02/11/17 16: 37; Start 02/11/17 at 16:15; Stop 02/11/17 at 16:16; Status DC Active Scripts Active Xanax (Alprazolam) 0.25 Mg Tablet 0.25 Mg PO QHS PRN Oxycodone-Acetaminophen 10-325 (Oxycodone Hcl/Acetaminophen) 1 Each Tablet 1 Tab PO PRN Q6HRS PRN Hydralazine Hcl 25 Mg Tablet 25 Mg PO BID Carvedilol 12.5 Mg Tablet 12.5 Mg PO BIDWMEALS Fluconazole 100 Mg Tablet 1 Tab PO DAILY Lasix (Furosemide) 40 Mg Tablet 40 Mg PO BID Reported Lisinopril 40 Mg Tablet 1 Tab PO DAILY Humalog (Insulin Lispro) 100 Unit/1 Ml Vial 50 Unit SQ TID Lortab 5-325 mg Tablet (Hydrocodone/Acetaminophen) 1 Each Tablet 1 Tab PO PRN Q6HRS PRN Levemir (Insulin Detemir) 100 Unit/1 Ml Vial 40 Unit SQ HS Victoza 3-Devon (Liraglutide) 0.6 Mg/0.1 Ml Pen.injctr 1.2 Mg SQ DAILY Gabapentin 300 Mg Capsule 1 Cap PO DAILY PRN Vitamin D3 (Cholecalciferol (Vitamin D3)) 5,000 Unit Tablet 1 Tab PO DAILY Glimepiride 4 Mg Tablet 1 Tab PO BID Tramadol Hcl 50 Mg Tablet 2 Tab PO BID Cyclobenzaprine Hcl 10 Mg Tablet 1 Tab PO BID Klor-Con 10 (Potassium Chloride) 10 Meq Tablet.er 1 Tab PO DAILY Omeprazole 20 Mg Capsule. 1 Cap PO DAILY Vitals/I & O Vital Sign - Last 24 Hours 02/11/17 02/11/17 02/11/17 02/11/17 19:44 20:00 20:55 22:23 Temp 97.8 97.8 97.8 97.8 Pulse 88 88 70 Resp 18 18 B/P (MAP) 120/57 (78) 120/57 115/64 (81) Pulse Ox 95 96 O2 Delivery Nasal Cannula Nasal Cannula Nasal Cannula O2 Flow Rate 2.0 2.0 2.0 02/12/17 02/12/17 02/12/17 02/12/17 02:35 07:00 08:00 08:09 Temp 98.0 97.4 98.0 97.4 Pulse 57 70 76 Resp 18 18 B/P (MAP) 102/61 (75) 113/62 (79) 113/62 Pulse Ox 97 O2 Delivery Nasal Cannula Nasal Cannula Nasal Cannula O2 Flow Rate 2.0 2.0 2.0 02/12/17 02/12/17 08:10 11:00 Temp 97.1 97.1 Pulse 76 54 Resp 18 B/P (MAP) 113/62 100/56 (71) Pulse Ox 95 O2 Delivery Nasal Cannula O2 Flow Rate 2.0 Intake and Output 02/11/17 02/11/17 02/12/17 14:59 22:59 06:59 Intake Total 60 ml 500 ml 200 ml Output Total 200 ml Balance 60 ml 300 ml 200 ml EDMAR BOLAÑOS MD Feb 12, 2017 12:06
[2017-02-12] MEDS ORDERED: IV NORMAL SALINE 500ML BAG 500 ML IV ONE (12:30)
--- NOTE | 2017-02-12 14:53 | PDOC ---
CARDIO Progress Notes Date and Time Date of Service 02/12/2017 Time of Evaluation 1453 Subjective Subjective: No Chest Pain, No Palpitations, Other (RYAN) Vitals Vitals Vital Signs Date Time Temp Pulse Resp B/P (MAP) Pulse Ox O2 Delivery O2 Flow Rate FiO2 02/12/17 11:00 97.1 54 18 100/56 (71) 95 Nasal Cannula 2.0 97.1 Weight Weight [ ] Input and Output Intake and Output Intake and Output 02/12/17 06:59 Intake Total 760 ml Output Total 200 ml Balance 560 ml Intake Oral 700 ml IV Total 60 ml Output Urine Total 200 ml # Bowel Movements 2 Laboratory Labs Laboratory Tests Test 02/11/17 17:27 02/11/17 20:37 02/12/17 02:45 02/12/17 07:50 Glucose (Fingerstick) 297 mg/dL (70-99) 324 mg/dL (70-99) 310 mg/dL (70-99) White Blood Count 6.5 x10^3/uL (4.0-11.0) Red Blood Count 3.22 x10^6/uL (3.50-5.40) Hemoglobin 9.2 g/dL (12.0-15.5) Hematocrit 28.7 % (36.0-47.0) Mean Corpuscular Volume 89 fL (79-100) Mean Corpuscular Hemoglobin 29 pg (25-35) Mean Corpuscular Hemoglobin Concent 32 g/dL (31-37) Red Cell Distribution Width 15.5 % (11.5-14.5) Platelet Count 163 x10^3/uL (140-400) Neutrophils (%) (Auto) 85 % (31-73) Lymphocytes (%) (Auto) 11 % (24-48) Monocytes (%) (Auto) 4 % (0-9) Eosinophils (%) (Auto) 0 % (0-3) Basophils (%) (Auto) 0 % (0-3) Neutrophils # (Auto) 5.5 x10^3uL (1.8-7.7) Lymphocytes # (Auto) 0.7 x10^3/uL (1.0-4.8) Monocytes # (Auto) 0.3 x10^3/uL (0.0-1.1) Eosinophils # (Auto) 0.0 x10^3/uL (0.0-0.7) Basophils # (Auto) 0.0 x10^3/uL (0.0-0.2) Sodium Level 137 mmol/L (136-145) Potassium Level 4.6 mmol/L (3.5-5.1) Chloride Level 100 mmol/L (98-107) Carbon Dioxide Level 27 mmol/L (21-32) Anion Gap 10 (6-14) Blood Urea Nitrogen 87 mg/dL (7-20) Creatinine 4.6 mg/dL (0.6-1.0) Estimated GFR (Cockcroft-Gault) 9.5 Glucose Level 347 mg/dL (70-99) Calcium Level 8.3 mg/dL (8.5-10.1) Test 02/12/17 12:30 Glucose (Fingerstick) 217 mg/dL (70-99) Microbiology Micro Microbiology 02/08/17 Gram Stain - Final, Complete Physical Exam HEENT: Neck Supple W Full Motion Chest: Symmetric LUNGS: Clear to Auscultation (anteriorly) Heart: S1S2, murmurs (2/6 systolic murmur ), irregularly irregular, other (tele : atrial fib) Abdomen: Soft N/T, Other (truncal obesity) Extremities: Other (1+ bilateral LE edema. chronic venous statis changes to bilateral LE) Neurology: alert, follow commands Assessment Assessment 1. Diastolic HF - acute on chronic off diuretics as Cr 4.6 reports improvement in dyspnea 2. JOSE on CKD Cr 4.6 today got fluid bolus last night ? dialysis - defer to nephrology 3. HTN controlled with medications 4. Morbid obesity pt unable to transfer independently - discharge home with HHS not realistic APARNA JOSEPH APRN Feb 12, 2017 14:53
[2017-02-12 15:00] VITALS: BP 92/49
[2017-02-12 19:00] VITALS: BP 95/66
[2017-02-12] MEDS: SERTRALINE 25 MG TABLET. PO SCH (21:19)
[2017-02-12] MEDS: ALPRAZolam 0.25 MG TABLET PO PRN (21:20)
[2017-02-12] MEDS: INSULIN DETEMIR 300 UNITS/3 ML INSULN.PEN. SQ SCH (21:27)
[2017-02-12 23:00] VITALS: BP 83/45
--- NOTE | 2017-02-12 23:44 | PDOC ---
Provider Note Provider Note RENAL F/U : SID S : No active CP or SOA Alert. Sitting up. O : VSS Afebrile. Neck : Supple Lungs : Non labored. CVS : RRR Abd : Benign in appearance, without distention. Ext : Trace edema Neuro : Awake. Labs reviewed. A/P : ARF/ATN EDEMA CKD III CHF. Cr pleateuing? Agree with gentle IVF. Hold diuretics High sugars causing more intravascular volume depletion. Labs. CPM. ALEXANDRA LAU MD Feb 12, 2017 23:44
[2017-02-13 03:18] VITALS: BP 104/62
[2017-02-13 05:34] LABS: BASO % 0 % (0-3); EOS % 0 % (0-3); HEMATOCRIT 29.5 % (36.0-47.0); HEMOGLOBIN 9.3 g/dL (12.0-15.5); LYMPH # 0.8 x10^3/uL (1.0-4.8); LYMPH % 15 % (24-48); MEAN CORPUSCULAR HEMOGLOBIN 28 pg (25-35); MEAN CORPUSCULAR HGB CONC 32 g/dL (31-37); MEAN CORPUSCULAR VOLUME 89 fL (79-100); MONO % 4 % (0-9); NEUT % 81 % (31-73); PLATELET COUNT 162 x10^3/uL (140-400); RED CELL DISTRIBUTION WIDTH 15.6 % (11.5-14.5); WHITE BLOOD COUNT 5.3 x10^3/uL (4.0-11.0)
[2017-02-13 05:56] LABS: CALCIUM 8.7 mg/dL (8.5-10.1); CREATININE 4.9 mg/dL (0.6-1.0); GFR 8.8; POTASSIUM 4.7 mmol/L (3.5-5.1)
[2017-02-13] MEDS: HEPARIN PF for SUB-Q USE 5,000 UNIT/0.5 ML VIAL. SQ SCH ×3 (06:00→21:53)
[2017-02-13 07:58] VITALS: BP 91/51
[2017-02-13] MEDS: METOPROLOL TART IMMED RELEASE 25 MG TABLET. PO SCH ×2 (09:00→21:45)
[2017-02-13] MEDS: DICLOFENAC SODIUM 1% TOPICAL GEL 100GM TUBE. TP SCH ×2 (09:00→21:46)
[2017-02-13] MEDS: amLODIPine BESYLATE 10 MG TABLET PO SCH (09:00)
[2017-02-13] MEDS: CHOLECALCIFEROL (VITAMIN D3) 5,000 UNIT CAPSULE PO SCH (09:26)
[2017-02-13] MEDS: PANTOPRAZOLE 40 MG TABLET.DR. PO SCH (09:26)
[2017-02-13] MEDS: predniSONE 20 MG TABLET PO SCH (09:26)
[2017-02-13] MEDS: CYCLOBENZAPRINE 10 MG TABLET. PO SCH ×2 (09:26→21:44)
[2017-02-13] MEDS: ASPIRIN ENTERIC COATED 81 MG TABLET.DR. PO SCH (09:27)
[2017-02-13] MEDS: GABAPENTIN 400 MG CAPSULE. PO SCH ×2 (09:31→21:44)
[2017-02-13] MEDS: INSULIN ASPART 300 UNITS/3 ML INSULN.PEN SQ SCH ×6 (09:36→20:13)
--- NOTE | 2017-02-13 09:59 | PDOC ---
PROGRESS NOTES Subjective Subjective No new complaints. Objective Objective Vital Signs Date Time Temp Pulse Resp B/P (MAP) Pulse Ox O2 Delivery O2 Flow Rate FiO2 02/13/17 09:00 50 91/51 02/13/17 07:58 97.9 17 97 Nasal Cannula 2.0 97.9 Intake and Output 02/13/17 07:00 Intake Total 780 ml Output Total 250 ml Balance 530 ml Intake Oral 780 ml Output Urine Total 250 ml Physical Exam Physical Exam She is supine in bed and does not seem to be in any acute distress. She continues with pain on ROM of her knees,right>left.She still requires moderate assistance with transfers as for physical therapy. Plan Plan of Care To SNF when medically stable. Comment Review of Relevant I have reviewed the following items kai (where applicable) has been applied. Labs Laboratory Tests Test 02/11/17 11:45 02/11/17 17:27 02/11/17 20:37 02/12/17 02:45 Glucose (Fingerstick) 407 mg/dL (70-99) 297 mg/dL (70-99) 324 mg/dL (70-99) White Blood Count 6.5 x10^3/uL (4.0-11.0) Red Blood Count 3.22 x10^6/uL (3.50-5.40) Hemoglobin 9.2 g/dL (12.0-15.5) Hematocrit 28.7 % (36.0-47.0) Mean Corpuscular Volume 89 fL (79-100) Mean Corpuscular Hemoglobin 29 pg (25-35) Mean Corpuscular Hemoglobin Concent 32 g/dL (31-37) Red Cell Distribution Width 15.5 % (11.5-14.5) Platelet Count 163 x10^3/uL (140-400) Neutrophils (%) (Auto) 85 % (31-73) Lymphocytes (%) (Auto) 11 % (24-48) Monocytes (%) (Auto) 4 % (0-9) Eosinophils (%) (Auto) 0 % (0-3) Basophils (%) (Auto) 0 % (0-3) Neutrophils # (Auto) 5.5 x10^3uL (1.8-7.7) Lymphocytes # (Auto) 0.7 x10^3/uL (1.0-4.8) Monocytes # (Auto) 0.3 x10^3/uL (0.0-1.1) Eosinophils # (Auto) 0.0 x10^3/uL (0.0-0.7) Basophils # (Auto) 0.0 x10^3/uL (0.0-0.2) Sodium Level 137 mmol/L (136-145) Potassium Level 4.6 mmol/L (3.5-5.1) Chloride Level 100 mmol/L (98-107) Carbon Dioxide Level 27 mmol/L (21-32) Anion Gap 10 (6-14) Blood Urea Nitrogen 87 mg/dL (7-20) Creatinine 4.6 mg/dL (0.6-1.0) Estimated GFR (Cockcroft-Gault) 9.5 Glucose Level 347 mg/dL (70-99) Calcium Level 8.3 mg/dL (8.5-10.1) Test 02/12/17 07:50 02/12/17 12:30 02/12/17 17:25 02/12/17 21:17 Glucose (Fingerstick) 310 mg/dL (70-99) 217 mg/dL (70-99) 203 mg/dL (70-99) 273 mg/dL (70-99) Test 02/13/17 05:00 02/13/17 05:15 02/13/17 08:29 Sodium Level 138 mmol/L (136-145) Potassium Level 4.7 mmol/L (3.5-5.1) Chloride Level 102 mmol/L (98-107) Carbon Dioxide Level 27 mmol/L (21-32) Anion Gap 9 (6-14) Blood Urea Nitrogen 105 mg/dL (7-20) Creatinine 4.9 mg/dL (0.6-1.0) Estimated GFR (Cockcroft-Gault) 8.8 Glucose Level 235 mg/dL (70-99) Calcium Level 8.7 mg/dL (8.5-10.1) White Blood Count 5.3 x10^3/uL (4.0-11.0) Red Blood Count 3.30 x10^6/uL (3.50-5.40) Hemoglobin 9.3 g/dL (12.0-15.5) Hematocrit 29.5 % (36.0-47.0) Mean Corpuscular Volume 89 fL (79-100) Mean Corpuscular Hemoglobin 28 pg (25-35) Mean Corpuscular Hemoglobin Concent 32 g/dL (31-37) Red Cell Distribution Width 15.6 % (11.5-14.5) Platelet Count 162 x10^3/uL (140-400) Neutrophils (%) (Auto) 81 % (31-73) Lymphocytes (%) (Auto) 15 % (24-48) Monocytes (%) (Auto) 4 % (0-9) Eosinophils (%) (Auto) 0 % (0-3) Basophils (%) (Auto) 0 % (0-3) Neutrophils # (Auto) 4.3 x10^3uL (1.8-7.7) Lymphocytes # (Auto) 0.8 x10^3/uL (1.0-4.8) Monocytes # (Auto) 0.2 x10^3/uL (0.0-1.1) Eosinophils # (Auto) 0.0 x10^3/uL (0.0-0.7) Basophils # (Auto) 0.0 x10^3/uL (0.0-0.2) Glucose (Fingerstick) 214 mg/dL (70-99) Laboratory Tests Test 02/12/17 12:30 02/12/17 17:25 02/12/17 21:17 02/13/17 05:00 Glucose (Fingerstick) 217 mg/dL (70-99) 203 mg/dL (70-99) 273 mg/dL (70-99) Sodium Level 138 mmol/L (136-145) Potassium Level 4.7 mmol/L (3.5-5.1) Chloride Level 102 mmol/L (98-107) Carbon Dioxide Level 27 mmol/L (21-32) Anion Gap 9 (6-14) Blood Urea Nitrogen 105 mg/dL (7-20) Creatinine 4.9 mg/dL (0.6-1.0) Estimated GFR (Cockcroft-Gault) 8.8 Glucose Level 235 mg/dL (70-99) Calcium Level 8.7 mg/dL (8.5-10.1) Test 02/13/17 05:15 02/13/17 08:29 White Blood Count 5.3 x10^3/uL (4.0-11.0) Red Blood Count 3.30 x10^6/uL (3.50-5.40) Hemoglobin 9.3 g/dL (12.0-15.5) Hematocrit 29.5 % (36.0-47.0) Mean Corpuscular Volume 89 fL (79-100) Mean Corpuscular Hemoglobin 28 pg (25-35) Mean Corpuscular Hemoglobin Concent 32 g/dL (31-37) Red Cell Distribution Width 15.6 % (11.5-14.5) Platelet Count 162 x10^3/uL (140-400) Neutrophils (%) (Auto) 81 % (31-73) Lymphocytes (%) (Auto) 15 % (24-48) Monocytes (%) (Auto) 4 % (0-9) Eosinophils (%) (Auto) 0 % (0-3) Basophils (%) (Auto) 0 % (0-3) Neutrophils # (Auto) 4.3 x10^3uL (1.8-7.7) Lymphocytes # (Auto) 0.8 x10^3/uL (1.0-4.8) Monocytes # (Auto) 0.2 x10^3/uL (0.0-1.1) Eosinophils # (Auto) 0.0 x10^3/uL (0.0-0.7) Basophils # (Auto) 0.0 x10^3/uL (0.0-0.2) Glucose (Fingerstick) 214 mg/dL (70-99) Microbiology 02/08/17 Gram Stain - Final, Complete Medications Current Medications Zolpidem Tartrate (Ambien) 5 mg PRN QHS PRN PO INSOMNIA, MAY REPEAT IN 1HR Last administered on 02/09/17 21:49; Start 01/29/17 at 18:45 Oxycodone HCl (Roxicodone) 5 mg PRN Q3HRS PRN PO BREAKTHROUGH PAIN Last administered on 02/08/17 09:18; Start 01/29/17 at 18:45 Acetaminophen (Tylenol) 650 mg PRN Q6HRS PRN PO Headaches, Temp > 101.5F Last administered on 02/08/17 21:24; Start 01/29/17 at 18:45 Ibuprofen (Motrin) 400 mg PRN Q6HRS PRN PO MILD PAIN; Start 01/29/17 at 18:45; Stop 02/05/17 at 09:24; Status DC Docusate Sodium (Colace) 100 mg BID PO Last administered on 02/01/17 08:42; Start 01/29/17 at 21:00; Stop 02/02/17 at 11:08; Status DC Magnesium Hydroxide (Milk Of Magnesia) 2,400 mg PRN Q12HR PRN PO CONSTIPATION; Start 01/29/17 at 18:45 Lactulose 20 gm PRN Q12HR PRN PO CONSTIPATION; Start 01/29/17 at 18:45; Stop at 09:12; Status DC Bisacodyl (Dulcolax Supp) 10 mg PRN DAILY PRN HI CONSTIPATION; Start 01/29/17 at 18:45; Stop 02/02/17 at 11:08; Status DC Enoxaparin Sodium (Lovenox 40mg Syringe) 40 mg Q12HR SQ Last administered on 21:09; Start 01/29/17 at 22:00; Stop 01/31/17 at 07:12; Status DC Alprazolam (Xanax) 0.25 mg QHS PRN PO ANXIETY / AGITATION Last administered on 02/12/17 21:20; Start 01/29/17 at 18:45 Carvedilol (Coreg) 12.5 mg BIDWMEALS PO Last administered on 01/29/17 21:51; Start 01/29/17 at 19:00; Stop 01/30/17 at 11:28; Status DC Cyclobenzaprine HCl (Flexeril) 10 mg BID PO Last administered on 02/13/17 09:26 ; Start 01/29/17 at 21:00 Fluconazole (Diflucan) 100 mg DAILY PO Last administered on 02/12/17 08:03; Start 01/30/17 at 09:00; Stop 02/12/17 at 09:25; Status DC Furosemide (Lasix) 40 mg BID92 PO ; Start 01/30/17 at 09:00; Stop 01/30/17 at 09 :00; Status DC Hydralazine HCl (Apresoline) 25 mg BID PO Last administered on 02/09/17 08:30; Start 01/29/17 at 21:00; Stop 02/11/17 at 13:26; Status DC Acetaminophen/ Hydrocodone Bitart (Lortab 5/325) 1 tab PRN Q6HRS PRN PO MILD PAIN Last administered on 02/09/17 21:52; Start 01/29/17 at 18:45; Stop 02/11/17 at 09:12; Status DC Lisinopril (Prinivil) 40 mg DAILY PO Last administered on 02/11/17 10:18; Start 01/30/17 at 09:00; Stop 02/11/17 at 13:25; Status DC Oxycodone/ Acetaminophen (Percocet 10/325) 1 tab PRN Q6HRS PRN PO MODERATE- SEVERE PAIN Last administered on 02/10/17 13:11; Start 01/29/17 at 18:45 Tramadol HCl (Ultram) 100 mg BID PO Last administered on 01/29/17 21:50; Start 01/29/17 at 21:00; Stop 01/30/17 at 11:51; Status DC Vitamin D (Vitamin D3) 5,000 unit DAILY PO Last administered on 02/13/17 09:26 ; Start 01/30/17 at 09:00 Gabapentin (Neurontin) 300 mg PRN DAILY PRN PO NERVE PAIN Last administered on 02/09/17 21:51; Start 01/29/17 at 21:00 Glimepiride (Amaryl) 4 mg BIDWMEALS PO Last administered on 02/08/17 09:10; Start 01/30/17 at 09:00; Stop 02/09/17 at 09:09; Status DC Insulin Detemir (Levemir) 40 units QHS SQ Last administered on 01/29/17 22:01 ; Start 01/29/17 at 21:00; Stop 01/30/17 at 11:51; Status DC Insulin Aspart (NovoLOG) 50 units TIDAC SQ Last administered on 01/29/17 22:00 ; Start 01/29/17 at 19:00; Stop 01/30/17 at 11:51; Status DC Non-Formulary Medication 1.2 mg DAILY SQ ; Start 01/30/17 at 09:00; Stop at 09:00; Status DC Pantoprazole Sodium (Protonix) 40 mg DAILYAC PO Last administered on 02/13/17 09:26; Start 01/30/17 at 07:30 Potassium Chloride (Klor-Con) 10 meq DAILYWBKFT PO Last administered on 08:59; Start 01/30/17 at 08:00; Stop 02/05/17 at 09:21; Status DC Insulin Aspart (NovoLOG) 0-9 UNITS TIDWMEALS SQ Last administered on 02/13/17 09:36; Start 01/30/17 at 08:00 Dextrose (Dextrose 50%-Water Syringe) 12.5 gm PRN Q15MIN PRN IV SEE COMMENTS; Start 01/29/17 at 18:45 Furosemide (Lasix) 40 mg 1X ONCE IVP Last administered on 01/29/17 21:52; Start 01/29/17 at 21:00; Stop 01/29/17 at 21:01; Status DC Furosemide (Lasix) 40 mg BID92 IVP Last administered on 01/30/17 11:01; Start 01/30/17 at 09:00; Stop 01/30/17 at 11:28; Status DC Lidocaine HCl (Xylocaine-Mpf 1% Vial) 2 ml STK-MED ONCE .ROUTE ; Start 01/29/17 at 20:37; Stop 01/29/17 at 20:38; Status DC Dextrose 250 ml @ 1,000 mls/hr 1X ONCE IV ; Start 01/30/17 at 07:45; Stop at 07:59; Status DC Glucose (Insta-Glucose) 15 gm PRN Q15MIN PRN PO LOW BLOOD SUGAR Last administered on 01/30/17 07:55; Start 01/30/17 at 08:00 Glucose (Insta-Glucose) 15 gm STK-MED ONCE .ROUTE ; Start 01/30/17 at 07:52; Stop 01/30/17 at 07:53; Status DC Lidocaine HCl (Xylocaine-Mpf 1% Vial) 2 ml STK-MED ONCE .ROUTE ; Start 01/29/17 at 21:00; Stop 01/30/17 at 09:01; Status DC Furosemide (Lasix) 40 mg DAILY IVP Last administered on 02/03/17 08:39; Start 01/31/17 at 09:00; Stop 02/03/17 at 15:50; Status DC Aspirin (Ecotrin) 81 mg [id number] PO Last administered on 02/13/17 09:27; Start 01/30/17 at 12:30 Insulin Detemir (Levemir) 25 units QHS SQ Last administered on 02/02/17 20:54 ; Start 01/30/17 at 21:00; Stop 02/03/17 at 11:09; Status DC Gabapentin (Neurontin) 400 mg BID PO Last administered on 02/13/17 09:31; Start 01/31/17 at 09:00 Gabapentin (Neurontin) 100 mg 1X ONCE PO Last administered on 01/31/17 01:56 ; Start 01/31/17 at 02:00; Stop 01/31/17 at 02:01; Status DC Enoxaparin Sodium (Lovenox 40mg Syringe) 40 mg QHS SQ Last administered on 02/03 20:32; Start 01/31/17 at 21:00; Stop 02/04/17 at 09:32; Status DC Methylprednisolone Acetate (DEPO-Medrol 40MG VIAL) 40 mg 1X ONCE IM Last administered on 02/01/17 13:30; Start 02/01/17 at 13:30; Stop 02/01/17 at 13:31 ; Status DC Lidocaine/Sodium Bicarbonate (Buffered Lidocaine 1%) 20 ml 1X ONCE IJ Last administered on 02/01/17 13:30; Start 02/01/17 at 13:30; Stop 02/01/17 at 13:31 ; Status DC Labetalol HCl (Normodyne) 20 mg PRN Q2HR PRN IVP HYPERTENSION, SEE COMMENTS Last administered on 02/01/17 23:59; Start 02/01/17 at 23:30; Stop 02/03/17 at 15:47; Status DC Insulin Aspart (NovoLOG) 10 units TIDAC SQ Last administered on 02/06/17 07:30 ; Start 02/02/17 at 11:30; Stop 02/07/17 at 13:06; Status DC Insulin Aspart (NovoLOG VIAL) 15 unit 1X ONCE SQ ; Start 02/02/17 at 08:45; Stop 02/02/17 at 08:46; Status Cancel Insulin Aspart (NovoLOG) 15 units 1X ONCE SQ Last administered on 02/02/17 08 :42; Start 02/02/17 at 08:45; Stop 02/02/17 at 08:46; Status DC Loperamide HCl (Imodium) 2 mg PRN Q15MIN PRN PO DIARRHEA Last administered on 09:43; Start 02/02/17 at 11:15; Stop 02/03/17 at 12:31; Status DC Loperamide HCl (Imodium) 2 mg PRN Q15MIN PRN PO DIARRHEA Last administered on 01:35; Start 02/02/17 at 12:45; Stop 02/04/17 at 14:00; Status DC Insulin Detemir (Levemir) 35 units QHS SQ Last administered on 02/06/17 20:58; Start 02/03/17 at 21:00; Stop 02/07/17 at 13:06; Status DC Metoprolol Tartrate (Lopressor) 12.5 mg BID PO Last administered on 02/12/17 08 :09; Start 02/03/17 at 21:00 Furosemide (Lasix) 60 mg DAILY PO Last administered on 02/04/17 08:57; Start 02/04/17 at 09:00; Stop 02/04/17 at 14:34; Status DC Heparin Sodium (Porcine) (Heparin Sq) 5,000 unit Q8HRS SQ Last administered on 02/13/17 06:00; Start 02/04/17 at 14:00 Loperamide HCl (Imodium) 2 mg TID PO Last administered on 02/07/17 20:32; Start 02/04/17 at 14:00; Stop 02/09/17 at 10:50; Status DC Magnesium Sulfate/ Dextrose 50 ml @ 25 mls/hr PRN DAILY PRN IV for Mag < 1.7 on am labs; Start 02/04/17 at 14:30; Stop 02/05/17 at 10:05; Status DC Furosemide 100 mg/ Sodium Chloride 100 ml @ 0 mls/hr CONT PRN IV SEE I/O RECORD Last administered on 02/04/17 15:59; Start 02/04/17 at 14:30; Stop at 09:27; Status DC Acetylcysteine (Mucomyst 20% Oral Solution) 1,200 mg BID PO Last administered on 02/06/17 20:49; Start 02/05/17 at 09:00; Stop 02/07/17 at 08:59; Status DC Sodium Polystyrene Sulfonate (Kayexalate) 30 gm 1X ONCE PO Last administered on 02/06/17 09:49; Start 02/06/17 at 09:30; Stop 02/06/17 at 09:31; Status DC Dextrose 10 ml 1X ONCE IV Last administered on 02/06/17 09:56; Start 02/06/17 at 09:30; Stop 02/06/17 at 09:31; Status DC Insulin Human Regular (NovoLIN R VIAL) 10 unit 1X ONCE IV Last administered on 02/06/17 09:59; Start 02/06/17 at 09:30; Stop 02/06/17 at 09:31; Status DC Heparin Sodium/ Sodium Chloride 500 ml @ As Directed STK-MED ONCE .ROUTE ; Start 02/06/17 at 10:10; Stop 02/06/17 at 10:11; Status DC Lidocaine HCl 20 ml STK-MED ONCE .ROUTE ; Start 02/06/17 at 10:10; Stop 02/06/17 at 10:11; Status DC Fentanyl Citrate (Fentanyl 2ml Vial) 100 mcg STK-MED ONCE .ROUTE ; Start at 10:39; Stop 02/06/17 at 10:40; Status DC Midazolam HCl (Versed) 2 mg STK-MED ONCE .ROUTE ; Start 02/06/17 at 10:39; Stop 02/06/17 at 10:40; Status DC Heparin Sodium/ Sodium Chloride 1,000 unit 1X ONCE IART Last administered on 11:10; Start 02/06/17 at 11:15; Stop 02/06/17 at 11:16; Status DC Midazolam HCl (Versed) 1 mg 1X ONCE IV Last administered on 02/06/17 11:11; Start 02/06/17 at 11:15; Stop 02/06/17 at 11:16; Status DC Fentanyl Citrate (Fentanyl 2ml Vial) 50 mcg 1X ONCE IV Last administered on 11:11; Start 02/06/17 at 11:15; Stop 02/06/17 at 11:16; Status DC Lidocaine HCl 20 ml 1X ONCE IJ Last administered on 02/06/17 11:10; Start 02/06 at 11:15; Stop 02/06/17 at 11:16; Status DC Sodium Chloride (Normal Saline Flush) 3 ml QSHIFT PRN IV AFTER MEDS AND BLOOD DRAWS; Start 02/06/17 at 11:15 Nitroglycerin (Nitrostat) 0.4 mg PRN Q5MIN PRN SL CHEST PAIN; Start 02/06/17 at 11:15 Iron Sucrose 200 mg/Sodium Chloride 110 ml @ 55 mls/hr 3X/WEEK IV Last administered on 02/06/17 16:30; Start 02/06/17 at 13:00; Stop 02/11/17 at 09:12; Status DC Furosemide 100 mg/ Sodium Chloride 100 ml @ 0 mls/hr CONT PRN IV SEE I/O RECORD Last administered on 02/10/17 12:59; Start 02/06/17 at 13:30; Stop at 09:12; Status DC Insulin Detemir (Levemir) 20 units QHS SQ ; Start 02/07/17 at 21:00; Stop at 09:08; Status DC Furosemide (Lasix) 20 mg 1X ONCE IVP ; Start 02/07/17 at 13:30; Stop 02/07/17 at 13:31; Status Cancel Diclofenac Sodium (Voltaren) 1 katia BID TP Last administered on 02/12/17 21:20; Start 02/08/17 at 13:30 Lidocaine HCl 16 ml/Sodium Bicarbonate 4 meq/ Miscellaneous 20 ml @ 20 mls/hr 1X ONCE ID ; Start 02/09/17 at 06:00; Stop 02/09/17 at 06:59; Status UNV Lidocaine HCl 10 ml 1X ONCE INJ Last administered on 02/08/17 15:44; Start 02/08/17 at 14:00; Stop 02/08/17 at 14:01; Status DC Amlodipine Besylate (Norvasc) 10 mg DAILY PO Last administered on 02/12/17 08: 10; Start 02/09/17 at 09:00 Amlodipine Besylate (Norvasc) 10 mg 1X ONCE PO Last administered on 02/08/17 15:43; Start 02/08/17 at 16:00; Stop 02/08/17 at 16:01; Status DC Insulin Detemir (Levemir) 12 units QHS SQ Last administered on 02/10/17 21:02; Start 02/09/17 at 21:00; Stop 02/11/17 at 10:15; Status DC Ceftriaxone Sodium 1 gm/ Sodium Chloride 50 ml @ 100 mls/hr Q24H IV Last administered on 02/09/17 11:41; Start 02/09/17 at 10:00; Stop 02/10/17 at 09:25; Status DC Loperamide HCl (Imodium) 2 mg PRN TID PRN PO if diarrhea recurs; Start 02/09/17 at 11:00 Lidocaine HCl (Xylocaine-Mpf 1% Vial) 2 ml STK-MED ONCE .ROUTE ; Start 02/10/17 at 06:35; Stop 02/10/17 at 06:36; Status DC Prednisone (Prednisone) 60 mg 1X ONCE PO Last administered on 02/10/17 09:53; Start 02/10/17 at 09:30; Stop 02/10/17 at 09:41; Status DC Prednisone (Prednisone) 40 mg DAILY PO Last administered on 02/12/17 08:02; Start 02/11/17 at 09:00; Stop 02/12/17 at 12:09; Status DC Colchicine (Colcrys) 1.2 mg 1X ONCE PO Last administered on 02/10/17 09:53; Start 02/10/17 at 09:30; Stop 02/10/17 at 09:41; Status DC Colchicine (Colcrys) 0.6 mg DAILY PO ; Start 02/11/17 at 09:00; Stop 02/11/17 at 09:00; Status DC Lidocaine HCl 1 ml STK-MED ONCE .ROUTE ; Start 02/11/17 at 09:38; Stop 02/11/17 at 09:39; Status DC Insulin Detemir (Levemir) 20 units QHS SQ Last administered on 02/12/17 21:27; Start 02/11/17 at 21:00 Insulin Aspart (NovoLOG) 15 units 1X ONCE SQ Last administered on 02/11/17 10: 15; Start 02/11/17 at 10:15; Stop 02/11/17 at 10:16; Status DC Insulin Aspart (NovoLOG) 8 units TIDAC SQ Last administered on 02/13/17 09:36; Start 02/11/17 at 11:30 Glycerin (Sani-Supp Adult) 1 supp 1X ONCE HI Last administered on 02/11/17 16: 37; Start 02/11/17 at 16:15; Stop 02/11/17 at 16:16; Status DC Prednisone (Prednisone) 20 mg DAILY PO Last administered on 02/13/17 09:26; Start 02/12/17 at 12:00 Sodium Chloride 500 ml @ 100 mls/hr 1X ONCE IV Last administered on 02/12/17 13:07; Start 02/12/17 at 12:30; Stop 02/12/17 at 17:29; Status DC Sertraline HCl (Zoloft) 25 mg QHS PO Last administered on 02/12/17 21:19; Start 02/12/17 at 21:00 Active Scripts Active Xanax (Alprazolam) 0.25 Mg Tablet 0.25 Mg PO QHS PRN Oxycodone-Acetaminophen 10-325 (Oxycodone Hcl/Acetaminophen) 1 Each Tablet 1 Tab PO PRN Q6HRS PRN Hydralazine Hcl 25 Mg Tablet 25 Mg PO BID Carvedilol 12.5 Mg Tablet 12.5 Mg PO BIDWMEALS Fluconazole 100 Mg Tablet 1 Tab PO DAILY Lasix (Furosemide) 40 Mg Tablet 40 Mg PO BID Reported Lisinopril 40 Mg Tablet 1 Tab PO DAILY Humalog (Insulin Lispro) 100 Unit/1 Ml Vial 50 Unit SQ TID Lortab 5-325 mg Tablet (Hydrocodone/Acetaminophen) 1 Each Tablet 1 Tab PO PRN Q6HRS PRN Levemir (Insulin Detemir) 100 Unit/1 Ml Vial 40 Unit SQ HS Victoza 3-Devon (Liraglutide) 0.6 Mg/0.1 Ml Pen.injctr 1.2 Mg SQ DAILY Gabapentin 300 Mg Capsule 1 Cap PO DAILY PRN Vitamin D3 (Cholecalciferol (Vitamin D3)) 5,000 Unit Tablet 1 Tab PO DAILY Glimepiride 4 Mg Tablet 1 Tab PO BID Tramadol Hcl 50 Mg Tablet 2 Tab PO BID Cyclobenzaprine Hcl 10 Mg Tablet 1 Tab PO BID Klor-Con 10 (Potassium Chloride) 10 Meq Tablet.er 1 Tab PO DAILY Omeprazole 20 Mg Capsule.dr 1 Cap PO DAILY Vitals/I & O Vital Sign - Last 24 Hours 02/12/17 02/12/17 02/12/17 02/12/17 11:00 15:00 19:00 20:00 Temp 97.1 97.2 97.4 97.1 97.2 97.4 Pulse 54 52 73 Resp 18 18 20 B/P (MAP) 100/56 (71) 92/49 (63) 95/66 (76) Pulse Ox 95 92 98 O2 Delivery Nasal Cannula Nasal Cannula Nasal Cannula Nasal Cannula O2 Flow Rate 2.0 2.0 2.0 2.0 02/12/17 02/12/17 02/13/17 02/13/17 21:00 23:00 03:18 07:58 Temp 97.5 97.6 97.9 97.5 97.6 97.9 Pulse 73 54 58 55 Resp 20 20 17 B/P (MAP) 95/66 83/45 (58) 104/62 (76) 91/51 (64) Pulse Ox 96 97 97 O2 Delivery Nasal Cannula Nasal Cannula Nasal Cannula O2 Flow Rate 2.0 2.0 2.0 02/13/17 02/13/17 09:00 09:00 Pulse 50 50 B/P (MAP) 91/51 91/51 Intake and Output 02/12/17 02/12/17 02/13/17 15:00 23:00 07:00 Intake Total 300 ml 240 ml 240 ml Output Total 200 ml 50 ml Balance 300 ml 40 ml 190 ml GABRIEL LAWS MD Feb 13, 2017 09:59
--- NOTE | 2017-02-13 10:16 | PDOC ---
PROGRESS NOTES Chief Complaint Chief Complaint CHF exacerbation ASSESSMENT AND PLAN: 1. JOSE: oliguric. poss 2/2 diarrhea and lasix. worsening creatinine. temp HD catheter today 2. CHF exacerbation: echo with EF 60-65%, pA pressure 61. s/p RHC 02/06/17- normal. clinically improving. off Lasix gtt (resultant JOSE) 3. HTN: well controlled on home meds (JOVANNA-I, norvasc) 4. Lymphedema: chronic 5. CKD: underlying; baseline creat 6. DM2: poorly controlled at home (HgbA1c 11.9), brittle control here. currently high 2/2 steroid use. cont levemir, ISS 7. Gout: acute in R knee, s/p tap. stop colchris with current JOSE, is on steroids. 8. Pain control: Oxy 5-10 PRN 9. Anemia: chronic dz: received venofer x3. continue low dose PO 10. Prophylaxis: Heparin SQ, PPI 11. Morbid obesity and Physical debility : need PT/OT 12. Depression: tears up easily. start SSRI History of Present Illness History of Present Illness SITTING IN CHAIR PAIN OK LIMITED MOBILITY Vitals Vitals Vital Signs Date Time Temp Pulse Resp B/P (MAP) Pulse Ox O2 Delivery O2 Flow Rate FiO2 02/13/17 09:00 50 91/51 02/13/17 07:58 97.9 17 97 Nasal Cannula 2.0 97.9 Physical Exam General: Alert, Oriented X3, Cooperative, No acute distress Heart: Regular rate Lungs: Clear, Other (no wheezing) Abdomen: Normal bowel sounds, Soft, No tenderness Extremities: Normal pulses, Other (legs in braces, no erythema/bruising at knees. 2+ chronic edema) Skin: No significant lesion Labs LABS Laboratory Tests Test 02/12/17 12:30 02/12/17 17:25 02/12/17 21:17 02/13/17 05:00 Glucose (Fingerstick) 217 mg/dL (70-99) 203 mg/dL (70-99) 273 mg/dL (70-99) Sodium Level 138 mmol/L (136-145) Potassium Level 4.7 mmol/L (3.5-5.1) Chloride Level 102 mmol/L (98-107) Carbon Dioxide Level 27 mmol/L (21-32) Anion Gap 9 (6-14) Blood Urea Nitrogen 105 mg/dL (7-20) Creatinine 4.9 mg/dL (0.6-1.0) Estimated GFR (Cockcroft-Gault) 8.8 Glucose Level 235 mg/dL (70-99) Calcium Level 8.7 mg/dL (8.5-10.1) Test 02/13/17 05:15 02/13/17 08:29 White Blood Count 5.3 x10^3/uL (4.0-11.0) Red Blood Count 3.30 x10^6/uL (3.50-5.40) Hemoglobin 9.3 g/dL (12.0-15.5) Hematocrit 29.5 % (36.0-47.0) Mean Corpuscular Volume 89 fL (79-100) Mean Corpuscular Hemoglobin 28 pg (25-35) Mean Corpuscular Hemoglobin Concent 32 g/dL (31-37) Red Cell Distribution Width 15.6 % (11.5-14.5) Platelet Count 162 x10^3/uL (140-400) Neutrophils (%) (Auto) 81 % (31-73) Lymphocytes (%) (Auto) 15 % (24-48) Monocytes (%) (Auto) 4 % (0-9) Eosinophils (%) (Auto) 0 % (0-3) Basophils (%) (Auto) 0 % (0-3) Neutrophils # (Auto) 4.3 x10^3uL (1.8-7.7) Lymphocytes # (Auto) 0.8 x10^3/uL (1.0-4.8) Monocytes # (Auto) 0.2 x10^3/uL (0.0-1.1) Eosinophils # (Auto) 0.0 x10^3/uL (0.0-0.7) Basophils # (Auto) 0.0 x10^3/uL (0.0-0.2) Glucose (Fingerstick) 214 mg/dL (70-99) Comment Review of Relevant I have reviewed the following items kai (where applicable) has been applied. Labs Laboratory Tests Test 02/11/17 11:45 02/11/17 17:27 02/11/17 20:37 02/12/17 02:45 Glucose (Fingerstick) 407 mg/dL (70-99) 297 mg/dL (70-99) 324 mg/dL (70-99) White Blood Count 6.5 x10^3/uL (4.0-11.0) Red Blood Count 3.22 x10^6/uL (3.50-5.40) Hemoglobin 9.2 g/dL (12.0-15.5) Hematocrit 28.7 % (36.0-47.0) Mean Corpuscular Volume 89 fL (79-100) Mean Corpuscular Hemoglobin 29 pg (25-35) Mean Corpuscular Hemoglobin Concent 32 g/dL (31-37) Red Cell Distribution Width 15.5 % (11.5-14.5) Platelet Count 163 x10^3/uL (140-400) Neutrophils (%) (Auto) 85 % (31-73) Lymphocytes (%) (Auto) 11 % (24-48) Monocytes (%) (Auto) 4 % (0-9) Eosinophils (%) (Auto) 0 % (0-3) Basophils (%) (Auto) 0 % (0-3) Neutrophils # (Auto) 5.5 x10^3uL (1.8-7.7) Lymphocytes # (Auto) 0.7 x10^3/uL (1.0-4.8) Monocytes # (Auto) 0.3 x10^3/uL (0.0-1.1) Eosinophils # (Auto) 0.0 x10^3/uL (0.0-0.7) Basophils # (Auto) 0.0 x10^3/uL (0.0-0.2) Sodium Level 137 mmol/L (136-145) Potassium Level 4.6 mmol/L (3.5-5.1) Chloride Level 100 mmol/L (98-107) Carbon Dioxide Level 27 mmol/L (21-32) Anion Gap 10 (6-14) Blood Urea Nitrogen 87 mg/dL (7-20) Creatinine 4.6 mg/dL (0.6-1.0) Estimated GFR (Cockcroft-Gault) 9.5 Glucose Level 347 mg/dL (70-99) Calcium Level 8.3 mg/dL (8.5-10.1) Test 02/12/17 07:50 02/12/17 12:30 02/12/17 17:25 02/12/17 21:17 Glucose (Fingerstick) 310 mg/dL (70-99) 217 mg/dL (70-99) 203 mg/dL (70-99) 273 mg/dL (70-99) Test 02/13/17 05:00 02/13/17 05:15 02/13/17 08:29 Sodium Level 138 mmol/L (136-145) Potassium Level 4.7 mmol/L (3.5-5.1) Chloride Level 102 mmol/L (98-107) Carbon Dioxide Level 27 mmol/L (21-32) Anion Gap 9 (6-14) Blood Urea Nitrogen 105 mg/dL (7-20) Creatinine 4.9 mg/dL (0.6-1.0) Estimated GFR (Cockcroft-Gault) 8.8 Glucose Level 235 mg/dL (70-99) Calcium Level 8.7 mg/dL (8.5-10.1) White Blood Count 5.3 x10^3/uL (4.0-11.0) Red Blood Count 3.30 x10^6/uL (3.50-5.40) Hemoglobin 9.3 g/dL (12.0-15.5) Hematocrit 29.5 % (36.0-47.0) Mean Corpuscular Volume 89 fL (79-100) Mean Corpuscular Hemoglobin 28 pg (25-35) Mean Corpuscular Hemoglobin Concent 32 g/dL (31-37) Red Cell Distribution Width 15.6 % (11.5-14.5) Platelet Count 162 x10^3/uL (140-400) Neutrophils (%) (Auto) 81 % (31-73) Lymphocytes (%) (Auto) 15 % (24-48) Monocytes (%) (Auto) 4 % (0-9) Eosinophils (%) (Auto) 0 % (0-3) Basophils (%) (Auto) 0 % (0-3) Neutrophils # (Auto) 4.3 x10^3uL (1.8-7.7) Lymphocytes # (Auto) 0.8 x10^3/uL (1.0-4.8) Monocytes # (Auto) 0.2 x10^3/uL (0.0-1.1) Eosinophils # (Auto) 0.0 x10^3/uL (0.0-0.7) Basophils # (Auto) 0.0 x10^3/uL (0.0-0.2) Glucose (Fingerstick) 214 mg/dL (70-99) Laboratory Tests Test 02/12/17 12:30 02/12/17 17:25 02/12/17 21:17 02/13/17 05:00 Glucose (Fingerstick) 217 mg/dL (70-99) 203 mg/dL (70-99) 273 mg/dL (70-99) Sodium Level 138 mmol/L (136-145) Potassium Level 4.7 mmol/L (3.5-5.1) Chloride Level 102 mmol/L (98-107) Carbon Dioxide Level 27 mmol/L (21-32) Anion Gap 9 (6-14) Blood Urea Nitrogen 105 mg/dL (7-20) Creatinine 4.9 mg/dL (0.6-1.0) Estimated GFR (Cockcroft-Gault) 8.8 Glucose Level 235 mg/dL (70-99) Calcium Level 8.7 mg/dL (8.5-10.1) Test 02/13/17 05:15 02/13/17 08:29 White Blood Count 5.3 x10^3/uL (4.0-11.0) Red Blood Count 3.30 x10^6/uL (3.50-5.40) Hemoglobin 9.3 g/dL (12.0-15.5) Hematocrit 29.5 % (36.0-47.0) Mean Corpuscular Volume 89 fL (79-100) Mean Corpuscular Hemoglobin 28 pg (25-35) Mean Corpuscular Hemoglobin Concent 32 g/dL (31-37) Red Cell Distribution Width 15.6 % (11.5-14.5) Platelet Count 162 x10^3/uL (140-400) Neutrophils (%) (Auto) 81 % (31-73) Lymphocytes (%) (Auto) 15 % (24-48) Monocytes (%) (Auto) 4 % (0-9) Eosinophils (%) (Auto) 0 % (0-3) Basophils (%) (Auto) 0 % (0-3) Neutrophils # (Auto) 4.3 x10^3uL (1.8-7.7) Lymphocytes # (Auto) 0.8 x10^3/uL (1.0-4.8) Monocytes # (Auto) 0.2 x10^3/uL (0.0-1.1) Eosinophils # (Auto) 0.0 x10^3/uL (0.0-0.7) Basophils # (Auto) 0.0 x10^3/uL (0.0-0.2) Glucose (Fingerstick) 214 mg/dL (70-99) Microbiology 02/08/17 Gram Stain - Final, Complete Medications Current Medications Zolpidem Tartrate (Ambien) 5 mg PRN QHS PRN PO INSOMNIA, MAY REPEAT IN 1HR Last administered on 02/09/17 21:49; Start 01/29/17 at 18:45 Oxycodone HCl (Roxicodone) 5 mg PRN Q3HRS PRN PO BREAKTHROUGH PAIN Last administered on 02/08/17 09:18; Start 01/29/17 at 18:45 Acetaminophen (Tylenol) 650 mg PRN Q6HRS PRN PO Headaches, Temp > 101.5F Last administered on 02/08/17 21:24; Start 01/29/17 at 18:45 Ibuprofen (Motrin) 400 mg PRN Q6HRS PRN PO MILD PAIN; Start 01/29/17 at 18:45; Stop 02/05/17 at 09:24; Status DC Docusate Sodium (Colace) 100 mg BID PO Last administered on 02/01/17 08:42; Start 01/29/17 at 21:00; Stop 02/02/17 at 11:08; Status DC Magnesium Hydroxide (Milk Of Magnesia) 2,400 mg PRN Q12HR PRN PO CONSTIPATION; Start 01/29/17 at 18:45 Lactulose 20 gm PRN Q12HR PRN PO CONSTIPATION; Start 01/29/17 at 18:45; Stop at 09:12; Status DC Bisacodyl (Dulcolax Supp) 10 mg PRN DAILY PRN CO CONSTIPATION; Start 01/29/17 at 18:45; Stop 02/02/17 at 11:08; Status DC Enoxaparin Sodium (Lovenox 40mg Syringe) 40 mg Q12HR SQ Last administered on 21:09; Start 01/29/17 at 22:00; Stop 01/31/17 at 07:12; Status DC Alprazolam (Xanax) 0.25 mg QHS PRN PO ANXIETY / AGITATION Last administered on 02/12/17 21:20; Start 01/29/17 at 18:45 Carvedilol (Coreg) 12.5 mg BIDWMEALS PO Last administered on 01/29/17 21:51; Start 01/29/17 at 19:00; Stop 01/30/17 at 11:28; Status DC Cyclobenzaprine HCl (Flexeril) 10 mg BID PO Last administered on 02/13/17 09:26 ; Start 01/29/17 at 21:00 Fluconazole (Diflucan) 100 mg DAILY PO Last administered on 02/12/17 08:03; Start 01/30/17 at 09:00; Stop 02/12/17 at 09:25; Status DC Furosemide (Lasix) 40 mg BID92 PO ; Start 01/30/17 at 09:00; Stop 01/30/17 at 09 :00; Status DC Hydralazine HCl (Apresoline) 25 mg BID PO Last administered on 02/09/17 08:30; Start 01/29/17 at 21:00; Stop 02/11/17 at 13:26; Status DC Acetaminophen/ Hydrocodone Bitart (Lortab 5/325) 1 tab PRN Q6HRS PRN PO MILD PAIN Last administered on 02/09/17 21:52; Start 01/29/17 at 18:45; Stop 02/11/17 at 09:12; Status DC Lisinopril (Prinivil) 40 mg DAILY PO Last administered on 02/11/17 10:18; Start 01/30/17 at 09:00; Stop 02/11/17 at 13:25; Status DC Oxycodone/ Acetaminophen (Percocet 10/325) 1 tab PRN Q6HRS PRN PO MODERATE- SEVERE PAIN Last administered on 02/10/17 13:11; Start 01/29/17 at 18:45 Tramadol HCl (Ultram) 100 mg BID PO Last administered on 01/29/17 21:50; Start 01/29/17 at 21:00; Stop 01/30/17 at 11:51; Status DC Vitamin D (Vitamin D3) 5,000 unit DAILY PO Last administered on 02/13/17 09:26 ; Start 01/30/17 at 09:00 Gabapentin (Neurontin) 300 mg PRN DAILY PRN PO NERVE PAIN Last administered on 02/09/17 21:51; Start 01/29/17 at 21:00 Glimepiride (Amaryl) 4 mg BIDWMEALS PO Last administered on 02/08/17 09:10; Start 01/30/17 at 09:00; Stop 02/09/17 at 09:09; Status DC Insulin Detemir (Levemir) 40 units QHS SQ Last administered on 01/29/17 22:01 ; Start 01/29/17 at 21:00; Stop 01/30/17 at 11:51; Status DC Insulin Aspart (NovoLOG) 50 units TIDAC SQ Last administered on 01/29/17 22:00 ; Start 01/29/17 at 19:00; Stop 01/30/17 at 11:51; Status DC Non-Formulary Medication 1.2 mg DAILY SQ ; Start 01/30/17 at 09:00; Stop at 09:00; Status DC Pantoprazole Sodium (Protonix) 40 mg DAILYAC PO Last administered on 02/13/17 09:26; Start 01/30/17 at 07:30 Potassium Chloride (Klor-Con) 10 meq DAILYWBKFT PO Last administered on 08:59; Start 01/30/17 at 08:00; Stop 02/05/17 at 09:21; Status DC Insulin Aspart (NovoLOG) 0-9 UNITS TIDWMEALS SQ Last administered on 02/13/17 09:36; Start 01/30/17 at 08:00 Dextrose (Dextrose 50%-Water Syringe) 12.5 gm PRN Q15MIN PRN IV SEE COMMENTS; Start 01/29/17 at 18:45 Furosemide (Lasix) 40 mg 1X ONCE IVP Last administered on 01/29/17 21:52; Start 01/29/17 at 21:00; Stop 01/29/17 at 21:01; Status DC Furosemide (Lasix) 40 mg BID92 IVP Last administered on 01/30/17 11:01; Start 01/30/17 at 09:00; Stop 01/30/17 at 11:28; Status DC Lidocaine HCl (Xylocaine-Mpf 1% Vial) 2 ml STK-MED ONCE .ROUTE ; Start 01/29/17 at 20:37; Stop 01/29/17 at 20:38; Status DC Dextrose 250 ml @ 1,000 mls/hr 1X ONCE IV ; Start 01/30/17 at 07:45; Stop at 07:59; Status DC Glucose (Insta-Glucose) 15 gm PRN Q15MIN PRN PO LOW BLOOD SUGAR Last administered on 01/30/17 07:55; Start 01/30/17 at 08:00 Glucose (Insta-Glucose) 15 gm STK-MED ONCE .ROUTE ; Start 01/30/17 at 07:52; Stop 01/30/17 at 07:53; Status DC Lidocaine HCl (Xylocaine-Mpf 1% Vial) 2 ml STK-MED ONCE .ROUTE ; Start 01/29/17 at 21:00; Stop 01/30/17 at 09:01; Status DC Furosemide (Lasix) 40 mg DAILY IVP Last administered on 02/03/17 08:39; Start 01/31/17 at 09:00; Stop 02/03/17 at 15:50; Status DC Aspirin (Ecotrin) 81 mg DAILYWBKFT PO Last administered on 02/13/17 09:27; Start 01/30/17 at 12:30 Insulin Detemir (Levemir) 25 units QHS SQ Last administered on 02/02/17 20:54 ; Start 01/30/17 at 21:00; Stop 02/03/17 at 11:09; Status DC Gabapentin (Neurontin) 400 mg BID PO Last administered on 02/13/17 09:31; Start 01/31/17 at 09:00 Gabapentin (Neurontin) 100 mg 1X ONCE PO Last administered on 01/31/17 01:56 ; Start 01/31/17 at 02:00; Stop 01/31/17 at 02:01; Status DC Enoxaparin Sodium (Lovenox 40mg Syringe) 40 mg QHS SQ Last administered on 02/03 20:32; Start 01/31/17 at 21:00; Stop 02/04/17 at 09:32; Status DC Methylprednisolone Acetate (DEPO-Medrol 40MG VIAL) 40 mg 1X ONCE IM Last administered on 02/01/17 13:30; Start 02/01/17 at 13:30; Stop 02/01/17 at 13:31 ; Status DC Lidocaine/Sodium Bicarbonate (Buffered Lidocaine 1%) 20 ml 1X ONCE IJ Last administered on 02/01/17 13:30; Start 02/01/17 at 13:30; Stop 02/01/17 at 13:31 ; Status DC Labetalol HCl (Normodyne) 20 mg PRN Q2HR PRN IVP HYPERTENSION, SEE COMMENTS Last administered on 02/01/17 23:59; Start 02/01/17 at 23:30; Stop 02/03/17 at 15:47; Status DC Insulin Aspart (NovoLOG) 10 units TIDAC SQ Last administered on 02/06/17 07:30 ; Start 02/02/17 at 11:30; Stop 02/07/17 at 13:06; Status DC Insulin Aspart (NovoLOG VIAL) 15 unit 1X ONCE SQ ; Start 02/02/17 at 08:45; Stop 02/02/17 at 08:46; Status Cancel Insulin Aspart (NovoLOG) 15 units 1X ONCE SQ Last administered on 02/02/17 08 :42; Start 02/02/17 at 08:45; Stop 02/02/17 at 08:46; Status DC Loperamide HCl (Imodium) 2 mg PRN Q15MIN PRN PO DIARRHEA Last administered on 09:43; Start 02/02/17 at 11:15; Stop 02/03/17 at 12:31; Status DC Loperamide HCl (Imodium) 2 mg PRN Q15MIN PRN PO DIARRHEA Last administered on 01:35; Start 02/02/17 at 12:45; Stop 02/04/17 at 14:00; Status DC Insulin Detemir (Levemir) 35 units QHS SQ Last administered on 02/06/17 20:58; Start 02/03/17 at 21:00; Stop 02/07/17 at 13:06; Status DC Metoprolol Tartrate (Lopressor) 12.5 mg BID PO Last administered on 02/12/17 08 :09; Start 02/03/17 at 21:00 Furosemide (Lasix) 60 mg DAILY PO Last administered on 02/04/17 08:57; Start 02/04/17 at 09:00; Stop 02/04/17 at 14:34; Status DC Heparin Sodium (Porcine) (Heparin Sq) 5,000 unit Q8HRS SQ Last administered on 02/13/17 06:00; Start 02/04/17 at 14:00 Loperamide HCl (Imodium) 2 mg TID PO Last administered on 02/07/17 20:32; Start 02/04/17 at 14:00; Stop 02/09/17 at 10:50; Status DC Magnesium Sulfate/ Dextrose 50 ml @ 25 mls/hr PRN DAILY PRN IV for Mag < 1.7 on am labs; Start 02/04/17 at 14:30; Stop 02/05/17 at 10:05; Status DC Furosemide 100 mg/ Sodium Chloride 100 ml @ 0 mls/hr CONT PRN IV SEE I/O RECORD Last administered on 02/04/17 15:59; Start 02/04/17 at 14:30; Stop at 09:27; Status DC Acetylcysteine (Mucomyst 20% Oral Solution) 1,200 mg BID PO Last administered on 02/06/17 20:49; Start 02/05/17 at 09:00; Stop 02/07/17 at 08:59; Status DC Sodium Polystyrene Sulfonate (Kayexalate) 30 gm 1X ONCE PO Last administered on 02/06/17 09:49; Start 02/06/17 at 09:30; Stop 02/06/17 at 09:31; Status DC Dextrose 10 ml 1X ONCE IV Last administered on 02/06/17 09:56; Start 02/06/17 at 09:30; Stop 02/06/17 at 09:31; Status DC Insulin Human Regular (NovoLIN R VIAL) 10 unit 1X ONCE IV Last administered on 02/06/17 09:59; Start 02/06/17 at 09:30; Stop 02/06/17 at 09:31; Status DC Heparin Sodium/ Sodium Chloride 500 ml @ As Directed STK-MED ONCE .ROUTE ; Start 02/06/17 at 10:10; Stop 02/06/17 at 10:11; Status DC Lidocaine HCl 20 ml STK-MED ONCE .ROUTE ; Start 02/06/17 at 10:10; Stop 02/06/17 at 10:11; Status DC Fentanyl Citrate (Fentanyl 2ml Vial) 100 mcg STK-MED ONCE .ROUTE ; Start at 10:39; Stop 02/06/17 at 10:40; Status DC Midazolam HCl (Versed) 2 mg STK-MED ONCE .ROUTE ; Start 02/06/17 at 10:39; Stop 02/06/17 at 10:40; Status DC Heparin Sodium/ Sodium Chloride 1,000 unit 1X ONCE IART Last administered on 11:10; Start 02/06/17 at 11:15; Stop 02/06/17 at 11:16; Status DC Midazolam HCl (Versed) 1 mg 1X ONCE IV Last administered on 02/06/17 11:11; Start 02/06/17 at 11:15; Stop 02/06/17 at 11:16; Status DC Fentanyl Citrate (Fentanyl 2ml Vial) 50 mcg 1X ONCE IV Last administered on 11:11; Start 02/06/17 at 11:15; Stop 02/06/17 at 11:16; Status DC Lidocaine HCl 20 ml 1X ONCE IJ Last administered on 02/06/17 11:10; Start 02/06 at 11:15; Stop 02/06/17 at 11:16; Status DC Sodium Chloride (Normal Saline Flush) 3 ml QSHIFT PRN IV AFTER MEDS AND BLOOD DRAWS; Start 02/06/17 at 11:15 Nitroglycerin (Nitrostat) 0.4 mg PRN Q5MIN PRN SL CHEST PAIN; Start 02/06/17 at 11:15 Iron Sucrose 200 mg/Sodium Chloride 110 ml @ 55 mls/hr 3X/WEEK IV Last administered on 02/06/17 16:30; Start 02/06/17 at 13:00; Stop 02/11/17 at 09:12; Status DC Furosemide 100 mg/ Sodium Chloride 100 ml @ 0 mls/hr CONT PRN IV SEE I/O RECORD Last administered on 02/10/17 12:59; Start 02/06/17 at 13:30; Stop at 09:12; Status DC Insulin Detemir (Levemir) 20 units QHS SQ ; Start 02/07/17 at 21:00; Stop at 09:08; Status DC Furosemide (Lasix) 20 mg 1X ONCE IVP ; Start 02/07/17 at 13:30; Stop 02/07/17 at 13:31; Status Cancel Diclofenac Sodium (Voltaren) 1 katia BID TP Last administered on 02/12/17 21:20; Start 02/08/17 at 13:30 Lidocaine HCl 16 ml/Sodium Bicarbonate 4 meq/ Miscellaneous 20 ml @ 20 mls/hr 1X ONCE ID ; Start 02/09/17 at 06:00; Stop 02/09/17 at 06:59; Status UNV Lidocaine HCl 10 ml 1X ONCE INJ Last administered on 02/08/17 15:44; Start 02/08/17 at 14:00; Stop 02/08/17 at 14:01; Status DC Amlodipine Besylate (Norvasc) 10 mg DAILY PO Last administered on 02/12/17 08: 10; Start 02/09/17 at 09:00 Amlodipine Besylate (Norvasc) 10 mg 1X ONCE PO Last administered on 02/08/17 15:43; Start 02/08/17 at 16:00; Stop 02/08/17 at 16:01; Status DC Insulin Detemir (Levemir) 12 units QHS SQ Last administered on 02/10/17 21:02; Start 02/09/17 at 21:00; Stop 02/11/17 at 10:15; Status DC Ceftriaxone Sodium 1 gm/ Sodium Chloride 50 ml @ 100 mls/hr Q24H IV Last administered on 02/09/17 11:41; Start 02/09/17 at 10:00; Stop 02/10/17 at 09:25; Status DC Loperamide HCl (Imodium) 2 mg PRN TID PRN PO if diarrhea recurs; Start 02/09/17 at 11:00 Lidocaine HCl (Xylocaine-Mpf 1% Vial) 2 ml STK-MED ONCE .ROUTE ; Start 02/10/17 at 06:35; Stop 02/10/17 at 06:36; Status DC Prednisone (Prednisone) 60 mg 1X ONCE PO Last administered on 02/10/17 09:53; Start 02/10/17 at 09:30; Stop 02/10/17 at 09:41; Status DC Prednisone (Prednisone) 40 mg DAILY PO Last administered on 02/12/17 08:02; Start 02/11/17 at 09:00; Stop 02/12/17 at 12:09; Status DC Colchicine (Colcrys) 1.2 mg 1X ONCE PO Last administered on 02/10/17 09:53; Start 02/10/17 at 09:30; Stop 02/10/17 at 09:41; Status DC Colchicine (Colcrys) 0.6 mg DAILY PO ; Start 02/11/17 at 09:00; Stop 02/11/17 at 09:00; Status DC Lidocaine HCl 1 ml STK-MED ONCE .ROUTE ; Start 02/11/17 at 09:38; Stop 02/11/17 at 09:39; Status DC Insulin Detemir (Levemir) 20 units QHS SQ Last administered on 02/12/17 21:27; Start 02/11/17 at 21:00 Insulin Aspart (NovoLOG) 15 units 1X ONCE SQ Last administered on 02/11/17 10: 15; Start 02/11/17 at 10:15; Stop 02/11/17 at 10:16; Status DC Insulin Aspart (NovoLOG) 8 units TIDAC SQ Last administered on 02/13/17 09:36; Start 02/11/17 at 11:30 Glycerin (Sani-Supp Adult) 1 supp 1X ONCE CO Last administered on 02/11/17 16: 37; Start 02/11/17 at 16:15; Stop 02/11/17 at 16:16; Status DC Prednisone (Prednisone) 20 mg DAILY PO Last administered on 02/13/17 09:26; Start 02/12/17 at 12:00 Sodium Chloride 500 ml @ 100 mls/hr 1X ONCE IV Last administered on 02/12/17 13:07; Start 02/12/17 at 12:30; Stop 02/12/17 at 17:29; Status DC Sertraline HCl (Zoloft) 25 mg QHS PO Last administered on 02/12/17 21:19; Start 02/12/17 at 21:00 Active Scripts Active Xanax (Alprazolam) 0.25 Mg Tablet 0.25 Mg PO QHS PRN Oxycodone-Acetaminophen 10-325 (Oxycodone Hcl/Acetaminophen) 1 Each Tablet 1 Tab PO PRN Q6HRS PRN Hydralazine Hcl 25 Mg Tablet 25 Mg PO BID Carvedilol 12.5 Mg Tablet 12.5 Mg PO BIDWMEALS Fluconazole 100 Mg Tablet 1 Tab PO DAILY Lasix (Furosemide) 40 Mg Tablet 40 Mg PO BID Reported Lisinopril 40 Mg Tablet 1 Tab PO DAILY Humalog (Insulin Lispro) 100 Unit/1 Ml Vial 50 Unit SQ TID Lortab 5-325 mg Tablet (Hydrocodone/Acetaminophen) 1 Each Tablet 1 Tab PO PRN Q6HRS PRN Levemir (Insulin Detemir) 100 Unit/1 Ml Vial 40 Unit SQ HS Victoza 3-Devon (Liraglutide) 0.6 Mg/0.1 Ml Pen.injctr 1.2 Mg SQ DAILY Gabapentin 300 Mg Capsule 1 Cap PO DAILY PRN Vitamin D3 (Cholecalciferol (Vitamin D3)) 5,000 Unit Tablet 1 Tab PO DAILY Glimepiride 4 Mg Tablet 1 Tab PO BID Tramadol Hcl 50 Mg Tablet 2 Tab PO BID Cyclobenzaprine Hcl 10 Mg Tablet 1 Tab PO BID Klor-Con 10 (Potassium Chloride) 10 Meq Tablet.er 1 Tab PO DAILY Omeprazole 20 Mg Capsule. 1 Cap PO DAILY Vitals/I & O Vital Sign - Last 24 Hours 02/12/17 02/12/17 02/12/17 02/12/17 11:00 15:00 19:00 20:00 Temp 97.1 97.2 97.4 97.1 97.2 97.4 Pulse 54 52 73 Resp 18 18 20 B/P (MAP) 100/56 (71) 92/49 (63) 95/66 (76) Pulse Ox 95 92 98 O2 Delivery Nasal Cannula Nasal Cannula Nasal Cannula Nasal Cannula O2 Flow Rate 2.0 2.0 2.0 2.0 02/12/17 02/12/17 02/13/17 02/13/17 21:00 23:00 03:18 07:58 Temp 97.5 97.6 97.9 97.5 97.6 97.9 Pulse 73 54 58 55 Resp 20 20 17 B/P (MAP) 95/66 83/45 (58) 104/62 (76) 91/51 (64) Pulse Ox 96 97 97 O2 Delivery Nasal Cannula Nasal Cannula Nasal Cannula O2 Flow Rate 2.0 2.0 2.0 02/13/17 02/13/17 09:00 09:00 Pulse 50 50 B/P (MAP) 91 9151 Intake and Output 02/12/17 02/12/17 02/13/17 15:00 23:00 07:00 Intake Total 300 ml 240 ml 240 ml Output Total 200 ml 50 ml Balance 300 ml 40 ml 190 ml SUKHJINDER KAPLAN MD Feb 13, 2017 10:16
[2017-02-13 11:00] VITALS: BP 95/53
[2017-02-13] MEDS ORDERED: LIDOCAINE 1% / SOD BICARB 8.4% 20 ML VIAL. IJ ONE ×2 (12:13→12:45)
[2017-02-13] MEDS ORDERED: HEPARIN for IV BOLUS 10,000 UNIT/10 ML VIAL. ONE (12:13)
--- NOTE | 2017-02-13 12:22 | PDOC ---
Objective: Objective: Per RN - loose stools returned overnight. Vital Signs: Vital Signs Date Time Temp Pulse Resp B/P (MAP) Pulse Ox O2 Delivery O2 Flow Rate FiO2 02/13/17 09:00 50 91/51 02/13/17 08:00 Nasal Cannula 2.0 02/13/17 07:58 97.9 17 97 97.9 Labs: Laboratory Tests Test 02/12/17 12:30 02/12/17 17:25 02/12/17 21:17 02/13/17 05:00 Glucose (Fingerstick) 217 mg/dL 203 mg/dL 273 mg/dL Sodium Level 138 mmol/L Potassium Level 4.7 mmol/L Chloride Level 102 mmol/L Carbon Dioxide Level 27 mmol/L Anion Gap 9 Blood Urea Nitrogen 105 mg/dL Creatinine 4.9 mg/dL Estimated GFR (Cockcroft-Gault) 8.8 Glucose Level 235 mg/dL Calcium Level 8.7 mg/dL Test 02/13/17 05:15 02/13/17 08:29 White Blood Count 5.3 x10^3/uL Red Blood Count 3.30 x10^6/uL Hemoglobin 9.3 g/dL Hematocrit 29.5 % Mean Corpuscular Volume 89 fL Mean Corpuscular Hemoglobin 28 pg Mean Corpuscular Hemoglobin Concent 32 g/dL Red Cell Distribution Width 15.6 % Platelet Count 162 x10^3/uL Neutrophils (%) (Auto) 81 % Lymphocytes (%) (Auto) 15 % Monocytes (%) (Auto) 4 % Eosinophils (%) (Auto) 0 % Basophils (%) (Auto) 0 % Neutrophils # (Auto) 4.3 x10^3uL Lymphocytes # (Auto) 0.8 x10^3/uL Monocytes # (Auto) 0.2 x10^3/uL Eosinophils # (Auto) 0.0 x10^3/uL Basophils # (Auto) 0.0 x10^3/uL Glucose (Fingerstick) 214 mg/dL PE: GEN: NAD, in chair HEART: bradycardic ABD: soft, non-tender, obese NEURO/PSYCH: sleeping, did not awaken during exam A/P: CHF, CKD -Cr worse (4.9) Anemia -Hgb stable on IV iron and PO PPI, last EGD/colon 2014 Diarrhea -was resolved, has recurred apparently -- Has Imodium TID PRN ordered - d/w RN. Await further renal eval. ANALI JOHNSON Feb 13, 2017 12:22
--- NOTE | 2017-02-13 13:04 | PDOC ---
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 Temp HDC insertion requested by Renal. Post-Procedure Diagnosis Post-Procedure Diagnosis Same Procedure Performed Procedure Performed Sono/fluoro guided temp HDC insertion Type of Anesthesia Type of Anesthesia Local Estimated Blood Loss EBL: Minimal Drain/Tubes Drains/Tubes Right IJ 14F 20cm Schon temp HDC Condition of Patient Condition of Patient Stable. No apparent complication. Disposition Disposition From IR return to [facility]. F/U with Renal. OK to use temp HDC. Full report to follow. DANY PRADO MD Feb 13, 2017 13:04
[2017-02-13 15:00] VITALS: BP 133/73
--- NOTE | 2017-02-13 16:15 | PDOC ---
OPALAPARNA Sae PHARMACY CLINICAL SPECIALIST 02/13/17 1615: CARDIO Progress Notes Date and Time Date of Service 02/13/2017 Time of Evaluation 1613 Subjective Subjective: No Chest Pain, No Palpitations, Other (denies dyspnea) Vitals Vitals Vital Signs Date Time Temp Pulse Resp B/P (MAP) Pulse Ox O2 Delivery O2 Flow Rate FiO2 02/13/17 15:00 97.4 100 20 133/73 (93) 90 Nasal Cannula 2.0 97.4 Weight Weight [ ] Input and Output Intake and Output Intake and Output 02/13/17 07:00 Intake Total 780 ml Output Total 250 ml Balance 530 ml Intake Oral 780 ml Output Urine Total 250 ml Laboratory Labs Laboratory Tests Test 02/12/17 17:25 02/12/17 21:17 02/13/17 05:00 02/13/17 05:15 Glucose (Fingerstick) 203 mg/dL (70-99) 273 mg/dL (70-99) Sodium Level 138 mmol/L (136-145) Potassium Level 4.7 mmol/L (3.5-5.1) Chloride Level 102 mmol/L (98-107) Carbon Dioxide Level 27 mmol/L (21-32) Anion Gap 9 (6-14) Blood Urea Nitrogen 105 mg/dL (7-20) Creatinine 4.9 mg/dL (0.6-1.0) Estimated GFR (Cockcroft-Gault) 8.8 Glucose Level 235 mg/dL (70-99) Calcium Level 8.7 mg/dL (8.5-10.1) White Blood Count 5.3 x10^3/uL (4.0-11.0) Red Blood Count 3.30 x10^6/uL (3.50-5.40) Hemoglobin 9.3 g/dL (12.0-15.5) Hematocrit 29.5 % (36.0-47.0) Mean Corpuscular Volume 89 fL (79-100) Mean Corpuscular Hemoglobin 28 pg (25-35) Mean Corpuscular Hemoglobin Concent 32 g/dL (31-37) Red Cell Distribution Width 15.6 % (11.5-14.5) Platelet Count 162 x10^3/uL (140-400) Neutrophils (%) (Auto) 81 % (31-73) Lymphocytes (%) (Auto) 15 % (24-48) Monocytes (%) (Auto) 4 % (0-9) Eosinophils (%) (Auto) 0 % (0-3) Basophils (%) (Auto) 0 % (0-3) Neutrophils # (Auto) 4.3 x10^3uL (1.8-7.7) Lymphocytes # (Auto) 0.8 x10^3/uL (1.0-4.8) Monocytes # (Auto) 0.2 x10^3/uL (0.0-1.1) Eosinophils # (Auto) 0.0 x10^3/uL (0.0-0.7) Basophils # (Auto) 0.0 x10^3/uL (0.0-0.2) Test 02/13/17 08:29 02/13/17 12:22 Glucose (Fingerstick) 214 mg/dL (70-99) 221 mg/dL (70-99) Microbiology Micro Microbiology 02/08/17 Gram Stain - Final, Complete Physical Exam HEENT: Neck Supple W Full Motion Chest: Symmetric LUNGS: Other (decreased bases) Heart: S1S2, murmurs (2/6 systolic murmur ), irregularly irregular, other (tele : atrial fib) Abdomen: Soft N/T, Other (truncal obesity) Extremities: Other (1+ bilateral LE edema. chronic venous statis changes to bilateral LE) Neurology: alert, follow commands Assessment Assessment 1. Diastolic HF - acute on chronic off diuretics as Cr ~ 5 fluid bolus last night reports improvement in dyspnea 2. JOSE on CKD Cr 5 today got fluid bolus last night to start HD 3. HTN controlled with medications 4. Morbid obesity pt unable to transfer independently - discharge home with HHS not realistic LEON GARDNER MD 02/13/17 1709: CARDIO Progress Notes Plan Plan Pt. seen and examined. Agree with above BIG 6 DEALER Note. On HD now. Denies chest pain. LE edema stable. Continue HD. Supportive care from CV perspective. Rate controlled. APARNA JOSEPH APRN Feb 13, 2017 16:15 LEON GARDNER MD Feb 13, 2017 17:09
[2017-02-13] MEDS ORDERED: IV NORMAL SALINE 1000ML BAG 1,000 ML IV PRN (16:41)
[2017-02-13] MEDS ORDERED: DIALYSIS PATIENT. MC PRN (16:45)
[2017-02-13] MEDS ORDERED: 0.9 % SODIUM CHLORIDE 10 ML DISP.SYRIN. IV PRN ×2 (16:45)
[2017-02-13] MEDS ORDERED: diphenhydrAMINE 50 MG/ML VIAL IV PRN ×2 (16:45)
--- NOTE | 2017-02-13 16:57 | RAD ---
Ultrasound and fluoro guided right IJ temporary hemodialysis catheter Indication: 66-year-old diabetic hypertensive female with acute on chronic renal failure, with edema and with increasing creatinine. Temporary dialysis catheter insertion has been requested by renal. Fluoro time: 0.2 minutes Kerma-Area Product: 1 Gycm2 Anesthesia: Local only Sterility: All elements of maximal sterile barrier technique, hand hygiene, skin preparation, and, if ultrasound was used, sterile ultrasound technique were followed. Procedure: Informed consent was obtained from the patient. She was placed supine on the angiography table. Preliminary ultrasound examination of right neck revealed patency of right internal jugular vein, which was documented with a single hard copy ultrasound image. Right neck was then prepped and draped in the usual sterile fashion, utilizing all elements of maximal sterile barrier technique, as described above. Using aseptic technique, local anesthesia, direct ultrasound guidance, and the micropuncture system, successful percutaneous entry was achieved into right internal jugular vein. The right IJ venostomy tract was then dilated and a 14 Italian 20cm Schon temporary hemodialysis catheter was easily advanced centrally over an angiographic guidewire, and was positioned with its tip at the level of upper right atrium utilizing fluoroscopic guidance. This catheter was documented to flush and aspirate normally, was packed, and was secured at the right neck exit site utilizing suture and sterile dressing. Patient tolerated the procedure well without apparent complication. Satisfactory position of the dialysis catheter was confirmed with a single fluoroscopic spot image. Impression: Successful, uneventful ultrasound and fluoro guided placement of right IJ 14 Italian 20cm Schon temporary hemodialysis catheter, as described.
[2017-02-13 19:30] VITALS: BP 126/72
[2017-02-13] MEDS: oxyCODONE IR 5 MG TABLET PO PRN (21:45)
[2017-02-13] MEDS: SERTRALINE 25 MG TABLET. PO SCH (21:45)
[2017-02-13] MEDS: INSULIN DETEMIR 300 UNITS/3 ML INSULN.PEN. SQ SCH (22:41)
[2017-02-13 23:43] VITALS: BP 117/67
--- NOTE | 2017-02-13 23:45 | PDOC ---
Provider Note Provider Note RENAL F/U : SID S : No active CP or SOA More lethargic today. Sitting up. O : VSS Afebrile. Neck : Supple Lungs : Non labored. CVS : RRR Abd : Benign in appearance, without distention. Ext : Trace edema Neuro : Awake. Labs reviewed. A/P : ARF/ATN EDEMA CKD III CHF. Cr up again BUN low 100s Some uremic sx Proceed with HD. Supportive care. CPM. ALEXANDRA LAU MD Feb 13, 2017 23:45
[2017-02-14 03:40] VITALS: BP 107/53
[2017-02-14 05:24] LABS: BASO % 0 % (0-3); EOS % 0 % (0-3); HEMATOCRIT 29.8 % (36.0-47.0); HEMOGLOBIN 9.5 g/dL (12.0-15.5); LYMPH # 0.9 x10^3/uL (1.0-4.8); LYMPH % 16 % (24-48); MEAN CORPUSCULAR HEMOGLOBIN 28 pg (25-35); MEAN CORPUSCULAR HGB CONC 32 g/dL (31-37); MEAN CORPUSCULAR VOLUME 88 fL (79-100); MONO % 5 % (0-9); NEUT % 79 % (31-73); PLATELET COUNT 166 x10^3/uL (140-400); RED BLOOD COUNT 3.37 x10^6/uL (3.50-5.40); RED CELL DISTRIBUTION WIDTH 15.3 % (11.5-14.5); WHITE BLOOD COUNT 5.3 x10^3/uL (4.0-11.0)
[2017-02-14 06:12] LABS: CALCIUM 8.1 mg/dL (8.5-10.1); CREATININE 3.6 mg/dL (0.6-1.0); GFR 12.6; POTASSIUM 4.8 mmol/L (3.5-5.1)
[2017-02-14] MEDS: HEPARIN PF for SUB-Q USE 5,000 UNIT/0.5 ML VIAL. SQ SCH ×3 (06:45→21:37)
[2017-02-14 07:00] VITALS: BP 97/57
[2017-02-14] MEDS: CHOLECALCIFEROL (VITAMIN D3) 5,000 UNIT CAPSULE PO SCH (08:36)
[2017-02-14] MEDS: ASPIRIN ENTERIC COATED 81 MG TABLET.DR. PO SCH (08:36)
[2017-02-14] MEDS: PANTOPRAZOLE 40 MG TABLET.DR. PO SCH (08:36)
[2017-02-14] MEDS: predniSONE 20 MG TABLET PO SCH (08:37)
[2017-02-14] MEDS: GABAPENTIN 400 MG CAPSULE. PO SCH ×2 (08:37→21:31)
--- NOTE | 2017-02-14 08:37 | PDOC ---
PROGRESS NOTES Chief Complaint Chief Complaint CHF exacerbation ASSESSMENT AND PLAN: 1. JOSE: oliguric. poss 2/2 diarrhea and lasix. worsening creatinine. temp HD catheter, ON HD per nephrology. 2. CHF exacerbation: echo with EF 60-65%, pA pressure 61. s/p RHC 02/06/17- normal. clinically improving. 3. HTN: well controlled on home meds (JOVANNA-I, norvasc) 4. Lymphedema: chronic 5. CKD: underlying; baseline creat 6. DM2: poorly controlled at home (HgbA1c 11.9), brittle control here. currently high 2/2 steroid use. cont levemir, ISS 7. Gout: acute in R knee, s/p tap. stop colchris with current JOSE, is on steroids. 8. Pain control: Oxy 5-10 PRN 9. Anemia: chronic dz: received venofer x3. continue low dose PO 10. Prophylaxis: Heparin SQ, PPI 11. Morbid obesity and Physical debility : need PT/OT 12. Depression: tears up easily. start SSRI History of Present Illness History of Present Illness HD today no acute events D/W RN Vitals Vitals Vital Signs Date Time Temp Pulse Resp B/P (MAP) Pulse Ox O2 Delivery O2 Flow Rate FiO2 02/14/17 07:00 97.5 68 19 97/57 (70) 93 Room Air 97.5 02/13/17 23:43 2.0 Physical Exam General: Alert, Oriented X3, Cooperative, No acute distress Heart: Regular rate, Normal S1 Lungs: Clear, Other Abdomen: Normal bowel sounds, Soft, No tenderness Extremities: Normal pulses, Other Skin: No significant lesion Labs LABS Laboratory Tests Test 02/13/17 12:22 02/13/17 16:07 02/13/17 19:15 02/13/17 22:36 Glucose (Fingerstick) 221 mg/dL (70-99) 195 mg/dL (70-99) 180 mg/dL (70-99) 286 mg/dL (70-99) Test 02/14/17 05:00 02/14/17 07:57 White Blood Count 5.3 x10^3/uL (4.0-11.0) Red Blood Count 3.37 x10^6/uL (3.50-5.40) Hemoglobin 9.5 g/dL (12.0-15.5) Hematocrit 29.8 % (36.0-47.0) Mean Corpuscular Volume 88 fL (79-100) Mean Corpuscular Hemoglobin 28 pg (25-35) Mean Corpuscular Hemoglobin Concent 32 g/dL (31-37) Red Cell Distribution Width 15.3 % (11.5-14.5) Platelet Count 166 x10^3/uL (140-400) Neutrophils (%) (Auto) 79 % (31-73) Lymphocytes (%) (Auto) 16 % (24-48) Monocytes (%) (Auto) 5 % (0-9) Eosinophils (%) (Auto) 0 % (0-3) Basophils (%) (Auto) 0 % (0-3) Neutrophils # (Auto) 4.2 x10^3uL (1.8-7.7) Lymphocytes # (Auto) 0.9 x10^3/uL (1.0-4.8) Monocytes # (Auto) 0.3 x10^3/uL (0.0-1.1) Eosinophils # (Auto) 0.0 x10^3/uL (0.0-0.7) Basophils # (Auto) 0.0 x10^3/uL (0.0-0.2) Sodium Level 140 mmol/L (136-145) Potassium Level 4.8 mmol/L (3.5-5.1) Chloride Level 103 mmol/L (98-107) Carbon Dioxide Level 28 mmol/L (21-32) Anion Gap 9 (6-14) Blood Urea Nitrogen 70 mg/dL (7-20) Creatinine 3.6 mg/dL (0.6-1.0) Estimated GFR (Cockcroft-Gault) 12.6 Glucose Level 224 mg/dL (70-99) Calcium Level 8.1 mg/dL (8.5-10.1) Glucose (Fingerstick) 174 mg/dL (70-99) Comment Review of Relevant I have reviewed the following items kai (where applicable) has been applied. Labs Laboratory Tests Test 02/12/17 12:30 02/12/17 17:25 02/12/17 21:17 02/13/17 05:00 Glucose (Fingerstick) 217 mg/dL (70-99) 203 mg/dL (70-99) 273 mg/dL (70-99) Sodium Level 138 mmol/L (136-145) Potassium Level 4.7 mmol/L (3.5-5.1) Chloride Level 102 mmol/L (98-107) Carbon Dioxide Level 27 mmol/L (21-32) Anion Gap 9 (6-14) Blood Urea Nitrogen 105 mg/dL (7-20) Creatinine 4.9 mg/dL (0.6-1.0) Estimated GFR (Cockcroft-Gault) 8.8 Glucose Level 235 mg/dL (70-99) Calcium Level 8.7 mg/dL (8.5-10.1) Test 02/13/17 05:15 02/13/17 08:29 02/13/17 12:22 02/13/17 16:07 White Blood Count 5.3 x10^3/uL (4.0-11.0) Red Blood Count 3.30 x10^6/uL (3.50-5.40) Hemoglobin 9.3 g/dL (12.0-15.5) Hematocrit 29.5 % (36.0-47.0) Mean Corpuscular Volume 89 fL (79-100) Mean Corpuscular Hemoglobin 28 pg (25-35) Mean Corpuscular Hemoglobin Concent 32 g/dL (31-37) Red Cell Distribution Width 15.6 % (11.5-14.5) Platelet Count 162 x10^3/uL (140-400) Neutrophils (%) (Auto) 81 % (31-73) Lymphocytes (%) (Auto) 15 % (24-48) Monocytes (%) (Auto) 4 % (0-9) Eosinophils (%) (Auto) 0 % (0-3) Basophils (%) (Auto) 0 % (0-3) Neutrophils # (Auto) 4.3 x10^3uL (1.8-7.7) Lymphocytes # (Auto) 0.8 x10^3/uL (1.0-4.8) Monocytes # (Auto) 0.2 x10^3/uL (0.0-1.1) Eosinophils # (Auto) 0.0 x10^3/uL (0.0-0.7) Basophils # (Auto) 0.0 x10^3/uL (0.0-0.2) Glucose (Fingerstick) 214 mg/dL (70-99) 221 mg/dL (70-99) 195 mg/dL (70-99) Test 02/13/17 19:15 02/13/17 22:36 02/14/17 05:00 02/14/17 07:57 Glucose (Fingerstick) 180 mg/dL (70-99) 286 mg/dL (70-99) 174 mg/dL (70-99) White Blood Count 5.3 x10^3/uL (4.0-11.0) Red Blood Count 3.37 x10^6/uL (3.50-5.40) Hemoglobin 9.5 g/dL (12.0-15.5) Hematocrit 29.8 % (36.0-47.0) Mean Corpuscular Volume 88 fL (79-100) Mean Corpuscular Hemoglobin 28 pg (25-35) Mean Corpuscular Hemoglobin Concent 32 g/dL (31-37) Red Cell Distribution Width 15.3 % (11.5-14.5) Platelet Count 166 x10^3/uL (140-400) Neutrophils (%) (Auto) 79 % (31-73) Lymphocytes (%) (Auto) 16 % (24-48) Monocytes (%) (Auto) 5 % (0-9) Eosinophils (%) (Auto) 0 % (0-3) Basophils (%) (Auto) 0 % (0-3) Neutrophils # (Auto) 4.2 x10^3uL (1.8-7.7) Lymphocytes # (Auto) 0.9 x10^3/uL (1.0-4.8) Monocytes # (Auto) 0.3 x10^3/uL (0.0-1.1) Eosinophils # (Auto) 0.0 x10^3/uL (0.0-0.7) Basophils # (Auto) 0.0 x10^3/uL (0.0-0.2) Sodium Level 140 mmol/L (136-145) Potassium Level 4.8 mmol/L (3.5-5.1) Chloride Level 103 mmol/L (98-107) Carbon Dioxide Level 28 mmol/L (21-32) Anion Gap 9 (6-14) Blood Urea Nitrogen 70 mg/dL (7-20) Creatinine 3.6 mg/dL (0.6-1.0) Estimated GFR (Cockcroft-Gault) 12.6 Glucose Level 224 mg/dL (70-99) Calcium Level 8.1 mg/dL (8.5-10.1) Laboratory Tests Test 02/13/17 12:22 02/13/17 16:07 02/13/17 19:15 02/13/17 22:36 Glucose (Fingerstick) 221 mg/dL (70-99) 195 mg/dL (70-99) 180 mg/dL (70-99) 286 mg/dL (70-99) Test 02/14/17 05:00 02/14/17 07:57 White Blood Count 5.3 x10^3/uL (4.0-11.0) Red Blood Count 3.37 x10^6/uL (3.50-5.40) Hemoglobin 9.5 g/dL (12.0-15.5) Hematocrit 29.8 % (36.0-47.0) Mean Corpuscular Volume 88 fL (79-100) Mean Corpuscular Hemoglobin 28 pg (25-35) Mean Corpuscular Hemoglobin Concent 32 g/dL (31-37) Red Cell Distribution Width 15.3 % (11.5-14.5) Platelet Count 166 x10^3/uL (140-400) Neutrophils (%) (Auto) 79 % (31-73) Lymphocytes (%) (Auto) 16 % (24-48) Monocytes (%) (Auto) 5 % (0-9) Eosinophils (%) (Auto) 0 % (0-3) Basophils (%) (Auto) 0 % (0-3) Neutrophils # (Auto) 4.2 x10^3uL (1.8-7.7) Lymphocytes # (Auto) 0.9 x10^3/uL (1.0-4.8) Monocytes # (Auto) 0.3 x10^3/uL (0.0-1.1) Eosinophils # (Auto) 0.0 x10^3/uL (0.0-0.7) Basophils # (Auto) 0.0 x10^3/uL (0.0-0.2) Sodium Level 140 mmol/L (136-145) Potassium Level 4.8 mmol/L (3.5-5.1) Chloride Level 103 mmol/L (98-107) Carbon Dioxide Level 28 mmol/L (21-32) Anion Gap 9 (6-14) Blood Urea Nitrogen 70 mg/dL (7-20) Creatinine 3.6 mg/dL (0.6-1.0) Estimated GFR (Cockcroft-Gault) 12.6 Glucose Level 224 mg/dL (70-99) Calcium Level 8.1 mg/dL (8.5-10.1) Glucose (Fingerstick) 174 mg/dL (70-99) Microbiology 02/08/17 Gram Stain - Final, Complete Medications Current Medications Zolpidem Tartrate (Ambien) 5 mg PRN QHS PRN PO INSOMNIA, MAY REPEAT IN 1HR Last administered on 02/09/17 21:49; Start 01/29/17 at 18:45 Oxycodone HCl (Roxicodone) 5 mg PRN Q3HRS PRN PO BREAKTHROUGH PAIN Last administered on 02/13/17 21:45; Start 01/29/17 at 18:45 Acetaminophen (Tylenol) 650 mg PRN Q6HRS PRN PO Headaches, Temp > 101.5F Last administered on 02/08/17 21:24; Start 01/29/17 at 18:45 Ibuprofen (Motrin) 400 mg PRN Q6HRS PRN PO MILD PAIN; Start 01/29/17 at 18:45; Stop 02/05/17 at 09:24; Status DC Docusate Sodium (Colace) 100 mg BID PO Last administered on 02/01/17 08:42; Start 01/29/17 at 21:00; Stop 02/02/17 at 11:08; Status DC Magnesium Hydroxide (Milk Of Magnesia) 2,400 mg PRN Q12HR PRN PO CONSTIPATION; Start 01/29/17 at 18:45 Lactulose 20 gm PRN Q12HR PRN PO CONSTIPATION; Start 01/29/17 at 18:45; Stop at 09:12; Status DC Bisacodyl (Dulcolax Supp) 10 mg PRN DAILY PRN MD CONSTIPATION; Start 01/29/17 at 18:45; Stop 02/02/17 at 11:08; Status DC Enoxaparin Sodium (Lovenox 40mg Syringe) 40 mg Q12HR SQ Last administered on 21:09; Start 01/29/17 at 22:00; Stop 01/31/17 at 07:12; Status DC Alprazolam (Xanax) 0.25 mg QHS PRN PO ANXIETY / AGITATION Last administered on 02/12/17 21:20; Start 01/29/17 at 18:45 Carvedilol (Coreg) 12.5 mg BIDWMEALS PO Last administered on 01/29/17 21:51; Start 01/29/17 at 19:00; Stop 01/30/17 at 11:28; Status DC Cyclobenzaprine HCl (Flexeril) 10 mg BID PO Last administered on 02/13/17 21:44 ; Start 01/29/17 at 21:00 Fluconazole (Diflucan) 100 mg DAILY PO Last administered on 02/12/17 08:03; Start 01/30/17 at 09:00; Stop 02/12/17 at 09:25; Status DC Furosemide (Lasix) 40 mg BID92 PO ; Start 01/30/17 at 09:00; Stop 01/30/17 at 09 :00; Status DC Hydralazine HCl (Apresoline) 25 mg BID PO Last administered on 02/09/17 08:30; Start 01/29/17 at 21:00; Stop 02/11/17 at 13:26; Status DC Acetaminophen/ Hydrocodone Bitart (Lortab 5/325) 1 tab PRN Q6HRS PRN PO MILD PAIN Last administered on 02/09/17 21:52; Start 01/29/17 at 18:45; Stop 02/11/17 at 09:12; Status DC Lisinopril (Prinivil) 40 mg DAILY PO Last administered on 02/11/17 10:18; Start 01/30/17 at 09:00; Stop 02/11/17 at 13:25; Status DC Oxycodone/ Acetaminophen (Percocet 10/325) 1 tab PRN Q6HRS PRN PO MODERATE- SEVERE PAIN Last administered on 02/10/17 13:11; Start 01/29/17 at 18:45 Tramadol HCl (Ultram) 100 mg BID PO Last administered on 01/29/17 21:50; Start 01/29/17 at 21:00; Stop 01/30/17 at 11:51; Status DC Vitamin D (Vitamin D3) 5,000 unit DAILY PO Last administered on 02/13/17 09:26 ; Start 01/30/17 at 09:00 Gabapentin (Neurontin) 300 mg PRN DAILY PRN PO NERVE PAIN Last administered on 02/09/17 21:51; Start 01/29/17 at 21:00 Glimepiride (Amaryl) 4 mg BIDWMEALS PO Last administered on 02/08/17 09:10; Start 01/30/17 at 09:00; Stop 02/09/17 at 09:09; Status DC Insulin Detemir (Levemir) 40 units QHS SQ Last administered on 01/29/17 22:01 ; Start 01/29/17 at 21:00; Stop 01/30/17 at 11:51; Status DC Insulin Aspart (NovoLOG) 50 units TIDAC SQ Last administered on 01/29/17 22:00 ; Start 01/29/17 at 19:00; Stop 01/30/17 at 11:51; Status DC Non-Formulary Medication 1.2 mg DAILY SQ ; Start 01/30/17 at 09:00; Stop at 09:00; Status DC Pantoprazole Sodium (Protonix) 40 mg DAILYAC PO Last administered on 02/13/17 09:26; Start 01/30/17 at 07:30 Potassium Chloride (Klor-Con) 10 meq DAILYWBKFT PO Last administered on 08:59; Start 01/30/17 at 08:00; Stop 02/05/17 at 09:21; Status DC Insulin Aspart (NovoLOG) 0-9 UNITS TIDWMEALS SQ Last administered on 02/13/17 09:36; Start 01/30/17 at 08:00 Dextrose (Dextrose 50%-Water Syringe) 12.5 gm PRN Q15MIN PRN IV SEE COMMENTS; Start 01/29/17 at 18:45 Furosemide (Lasix) 40 mg 1X ONCE IVP Last administered on 01/29/17 21:52; Start 01/29/17 at 21:00; Stop 01/29/17 at 21:01; Status DC Furosemide (Lasix) 40 mg BID92 IVP Last administered on 01/30/17 11:01; Start 01/30/17 at 09:00; Stop 01/30/17 at 11:28; Status DC Lidocaine HCl (Xylocaine-Mpf 1% Vial) 2 ml STK-MED ONCE .ROUTE ; Start 01/29/17 at 20:37; Stop 01/29/17 at 20:38; Status DC Dextrose 250 ml @ 1,000 mls/hr 1X ONCE IV ; Start 01/30/17 at 07:45; Stop at 07:59; Status DC Glucose (Insta-Glucose) 15 gm PRN Q15MIN PRN PO LOW BLOOD SUGAR Last administered on 01/30/17 07:55; Start 01/30/17 at 08:00 Glucose (Insta-Glucose) 15 gm STK-MED ONCE .ROUTE ; Start 01/30/17 at 07:52; Stop 01/30/17 at 07:53; Status DC Lidocaine HCl (Xylocaine-Mpf 1% Vial) 2 ml STK-MED ONCE .ROUTE ; Start 01/29/17 at 21:00; Stop 01/30/17 at 09:01; Status DC Furosemide (Lasix) 40 mg DAILY IVP Last administered on 02/03/17 08:39; Start 01/31/17 at 09:00; Stop 02/03/17 at 15:50; Status DC Aspirin (Ecotrin) 81 mg DAILYWBKFT PO Last administered on 02/13/17 09:27; Start 01/30/17 at 12:30 Insulin Detemir (Levemir) 25 units QHS SQ Last administered on 02/02/17 20:54 ; Start 01/30/17 at 21:00; Stop 02/03/17 at 11:09; Status DC Gabapentin (Neurontin) 400 mg BID PO Last administered on 02/13/17 21:44; Start 01/31/17 at 09:00 Gabapentin (Neurontin) 100 mg 1X ONCE PO Last administered on 01/31/17 01:56 ; Start 01/31/17 at 02:00; Stop 01/31/17 at 02:01; Status DC Enoxaparin Sodium (Lovenox 40mg Syringe) 40 mg QHS SQ Last administered on 02/03 20:32; Start 01/31/17 at 21:00; Stop 02/04/17 at 09:32; Status DC Methylprednisolone Acetate (DEPO-Medrol 40MG VIAL) 40 mg 1X ONCE IM Last administered on 02/01/17 13:30; Start 02/01/17 at 13:30; Stop 02/01/17 at 13:31 ; Status DC Lidocaine/Sodium Bicarbonate (Buffered Lidocaine 1%) 20 ml 1X ONCE IJ Last administered on 02/01/17 13:30; Start 02/01/17 at 13:30; Stop 02/01/17 at 13:31 ; Status DC Labetalol HCl (Normodyne) 20 mg PRN Q2HR PRN IVP HYPERTENSION, SEE COMMENTS Last administered on 02/01/17 23:59; Start 02/01/17 at 23:30; Stop 02/03/17 at 15:47; Status DC Insulin Aspart (NovoLOG) 10 units TIDAC SQ Last administered on 02/06/17 07:30 ; Start 02/02/17 at 11:30; Stop 02/07/17 at 13:06; Status DC Insulin Aspart (NovoLOG VIAL) 15 unit 1X ONCE SQ ; Start 02/02/17 at 08:45; Stop 02/02/17 at 08:46; Status Cancel Insulin Aspart (NovoLOG) 15 units 1X ONCE SQ Last administered on 02/02/17 08 :42; Start 02/02/17 at 08:45; Stop 02/02/17 at 08:46; Status DC Loperamide HCl (Imodium) 2 mg PRN Q15MIN PRN PO DIARRHEA Last administered on 09:43; Start 02/02/17 at 11:15; Stop 02/03/17 at 12:31; Status DC Loperamide HCl (Imodium) 2 mg PRN Q15MIN PRN PO DIARRHEA Last administered on 01:35; Start 02/02/17 at 12:45; Stop 02/04/17 at 14:00; Status DC Insulin Detemir (Levemir) 35 units QHS SQ Last administered on 02/06/17 20:58; Start 02/03/17 at 21:00; Stop 02/07/17 at 13:06; Status DC Metoprolol Tartrate (Lopressor) 12.5 mg BID PO Last administered on 02/13/17 21 :45; Start 02/03/17 at 21:00 Furosemide (Lasix) 60 mg DAILY PO Last administered on 02/04/17 08:57; Start 02/04/17 at 09:00; Stop 02/04/17 at 14:34; Status DC Heparin Sodium (Porcine) (Heparin Sq) 5,000 unit Q8HRS SQ Last administered on 02/14/17 06:45; Start 02/04/17 at 14:00 Loperamide HCl (Imodium) 2 mg TID PO Last administered on 02/07/17 20:32; Start 02/04/17 at 14:00; Stop 02/09/17 at 10:50; Status DC Magnesium Sulfate/ Dextrose 50 ml @ 25 mls/hr PRN DAILY PRN IV for Mag < 1.7 on am labs; Start 02/04/17 at 14:30; Stop 02/05/17 at 10:05; Status DC Furosemide 100 mg/ Sodium Chloride 100 ml @ 0 mls/hr CONT PRN IV SEE I/O RECORD Last administered on 02/04/17 15:59; Start 02/04/17 at 14:30; Stop at 09:27; Status DC Acetylcysteine (Mucomyst 20% Oral Solution) 1,200 mg BID PO Last administered on 02/06/17 20:49; Start 02/05/17 at 09:00; Stop 02/07/17 at 08:59; Status DC Sodium Polystyrene Sulfonate (Kayexalate) 30 gm 1X ONCE PO Last administered on 02/06/17 09:49; Start 02/06/17 at 09:30; Stop 02/06/17 at 09:31; Status DC Dextrose 10 ml 1X ONCE IV Last administered on 02/06/17 09:56; Start 02/06/17 at 09:30; Stop 02/06/17 at 09:31; Status DC Insulin Human Regular (NovoLIN R VIAL) 10 unit 1X ONCE IV Last administered on 02/06/17 09:59; Start 02/06/17 at 09:30; Stop 02/06/17 at 09:31; Status DC Heparin Sodium/ Sodium Chloride 500 ml @ As Directed STK-MED ONCE .ROUTE ; Start 02/06/17 at 10:10; Stop 02/06/17 at 10:11; Status DC Lidocaine HCl 20 ml STK-MED ONCE .ROUTE ; Start 02/06/17 at 10:10; Stop 02/06/17 at 10:11; Status DC Fentanyl Citrate (Fentanyl 2ml Vial) 100 mcg STK-MED ONCE .ROUTE ; Start at 10:39; Stop 02/06/17 at 10:40; Status DC Midazolam HCl (Versed) 2 mg STK-MED ONCE .ROUTE ; Start 02/06/17 at 10:39; Stop 02/06/17 at 10:40; Status DC Heparin Sodium/ Sodium Chloride 1,000 unit 1X ONCE IART Last administered on 11:10; Start 02/06/17 at 11:15; Stop 02/06/17 at 11:16; Status DC Midazolam HCl (Versed) 1 mg 1X ONCE IV Last administered on 02/06/17 11:11; Start 02/06/17 at 11:15; Stop 02/06/17 at 11:16; Status DC Fentanyl Citrate (Fentanyl 2ml Vial) 50 mcg 1X ONCE IV Last administered on 11:11; Start 02/06/17 at 11:15; Stop 02/06/17 at 11:16; Status DC Lidocaine HCl 20 ml 1X ONCE IJ Last administered on 02/06/17 11:10; Start 02/06 at 11:15; Stop 02/06/17 at 11:16; Status DC Sodium Chloride (Normal Saline Flush) 3 ml QSHIFT PRN IV AFTER MEDS AND BLOOD DRAWS; Start 02/06/17 at 11:15 Nitroglycerin (Nitrostat) 0.4 mg PRN Q5MIN PRN SL CHEST PAIN; Start 02/06/17 at 11:15 Iron Sucrose 200 mg/Sodium Chloride 110 ml @ 55 mls/hr 3X/WEEK IV Last administered on 02/06/17 16:30; Start 02/06/17 at 13:00; Stop 02/11/17 at 09:12; Status DC Furosemide 100 mg/ Sodium Chloride 100 ml @ 0 mls/hr CONT PRN IV SEE I/O RECORD Last administered on 02/10/17 12:59; Start 02/06/17 at 13:30; Stop at 09:12; Status DC Insulin Detemir (Levemir) 20 units QHS SQ ; Start 02/07/17 at 21:00; Stop at 09:08; Status DC Furosemide (Lasix) 20 mg 1X ONCE IVP ; Start 02/07/17 at 13:30; Stop 02/07/17 at 13:31; Status Cancel Diclofenac Sodium (Voltaren) 1 katia BID TP Last administered on 02/13/17 21:46; Start 02/08/17 at 13:30 Lidocaine HCl 16 ml/Sodium Bicarbonate 4 meq/ Miscellaneous 20 ml @ 20 mls/hr 1X ONCE ID ; Start 02/09/17 at 06:00; Stop 02/09/17 at 06:59; Status UNV Lidocaine HCl 10 ml 1X ONCE INJ Last administered on 02/08/17 15:44; Start 02/08/17 at 14:00; Stop 02/08/17 at 14:01; Status DC Amlodipine Besylate (Norvasc) 10 mg DAILY PO Last administered on 02/12/17 08: 10; Start 02/09/17 at 09:00 Amlodipine Besylate (Norvasc) 10 mg 1X ONCE PO Last administered on 02/08/17 15:43; Start 02/08/17 at 16:00; Stop 02/08/17 at 16:01; Status DC Insulin Detemir (Levemir) 12 units QHS SQ Last administered on 02/10/17 21:02; Start 02/09/17 at 21:00; Stop 02/11/17 at 10:15; Status DC Ceftriaxone Sodium 1 gm/ Sodium Chloride 50 ml @ 100 mls/hr Q24H IV Last administered on 02/09/17 11:41; Start 02/09/17 at 10:00; Stop 02/10/17 at 09:25; Status DC Loperamide HCl (Imodium) 2 mg PRN TID PRN PO if diarrhea recurs; Start 02/09/17 at 11:00 Lidocaine HCl (Xylocaine-Mpf 1% Vial) 2 ml STK-MED ONCE .ROUTE ; Start 02/10/17 at 06:35; Stop 02/10/17 at 06:36; Status DC Prednisone (Prednisone) 60 mg 1X ONCE PO Last administered on 02/10/17 09:53; Start 02/10/17 at 09:30; Stop 02/10/17 at 09:41; Status DC Prednisone (Prednisone) 40 mg DAILY PO Last administered on 02/12/17 08:02; Start 02/11/17 at 09:00; Stop 02/12/17 at 12:09; Status DC Colchicine (Colcrys) 1.2 mg 1X ONCE PO Last administered on 02/10/17 09:53; Start 02/10/17 at 09:30; Stop 02/10/17 at 09:41; Status DC Colchicine (Colcrys) 0.6 mg DAILY PO ; Start 02/11/17 at 09:00; Stop 02/11/17 at 09:00; Status DC Lidocaine HCl 1 ml STK-MED ONCE .ROUTE ; Start 02/11/17 at 09:38; Stop 02/11/17 at 09:39; Status DC Insulin Detemir (Levemir) 20 units QHS SQ Last administered on 02/13/17 22:41; Start 02/11/17 at 21:00 Insulin Aspart (NovoLOG) 15 units 1X ONCE SQ Last administered on 02/11/17 10: 15; Start 02/11/17 at 10:15; Stop 02/11/17 at 10:16; Status DC Insulin Aspart (NovoLOG) 8 units TIDAC SQ Last administered on 02/13/17 20:13; Start 02/11/17 at 11:30 Glycerin (Sani-Supp Adult) 1 supp 1X ONCE MD Last administered on 02/11/17 16: 37; Start 02/11/17 at 16:15; Stop 02/11/17 at 16:16; Status DC Prednisone (Prednisone) 20 mg DAILY PO Last administered on 02/13/17 09:26; Start 02/12/17 at 12:00 Sodium Chloride 500 ml @ 100 mls/hr 1X ONCE IV Last administered on 02/12/17 13:07; Start 02/12/17 at 12:30; Stop 02/12/17 at 17:29; Status DC Sertraline HCl (Zoloft) 25 mg QHS PO Last administered on 02/13/17 21:45; Start 02/12/17 at 21:00 Heparin Sodium (Porcine) (Heparin Sodium) 10,000 unit STK-MED ONCE .ROUTE ; Start 02/13/17 at 12:13; Stop 02/13/17 at 12:14; Status DC Lidocaine/Sodium Bicarbonate (Buffered Lidocaine 1%) 20 ml STK-MED ONCE IJ ; Start 02/13/17 at 12:13; Stop 02/13/17 at 12:14; Status DC Heparin Sodium/ Sodium Chloride 500 ml @ As Directed STK-MED ONCE .ROUTE ; Start 02/13/17 at 12:13; Stop 02/13/17 at 12:14; Status DC Heparin Sodium/ Sodium Chloride 1,000 unit 1X ONCE IART Last administered on 12:46; Start 02/13/17 at 12:45; Stop 02/13/17 at 12:46; Status DC Lidocaine/Sodium Bicarbonate (Buffered Lidocaine 1%) 3 ml 1X ONCE IJ Last administered on 02/13/17 12:46; Start 02/13/17 at 12:45; Stop 02/13/17 at 12:46; Status DC Heparin Sodium (Porcine) (Heparin Sodium) 2,500 unit 1X ONCE INT CAT Last administered on 02/13/17 12:46; Start 02/13/17 at 12:45; Stop 02/13/17 at 12:46; Status DC Sodium Chloride 1,000 ml @ 1,000 mls/hr Q1H PRN IV hypotension; Start 02/13/17 at 16:41; Stop 02/13/17 at 22:40; Status DC Diphenhydramine HCl (Benadryl) 25 mg 1X PRN PRN IV ITCHING; Start 02/13/17 at 16 :45; Stop 02/14/17 at 16:44 Diphenhydramine HCl (Benadryl) 25 mg 1X PRN PRN IV ITCHING; Start 02/13/17 at 16 :45; Stop 02/14/17 at 16:44 Sodium Chloride (Normal Saline Flush) 10 ml 1X PRN PRN IV AP catheter pack; Start 02/13/17 at 16:45; Stop 02/14/17 at 16:44 Sodium Chloride (Normal Saline Flush) 10 ml 1X PRN PRN IV [employer] catheter pack; Start 02/13/17 at 16:45; Stop 02/14/17 at 16:44 Info (PHARMACY MONITORING -- do not chart) 1 each PRN DAILY PRN MC SEE COMMENTS ; Start 02/13/17 at 16:45 Active Scripts Active Xanax (Alprazolam) 0.25 Mg Tablet 0.25 Mg PO QHS PRN Oxycodone-Acetaminophen 10-325 (Oxycodone Hcl/Acetaminophen) 1 Each Tablet 1 Tab PO PRN Q6HRS PRN Hydralazine Hcl 25 Mg Tablet 25 Mg PO BID Carvedilol 12.5 Mg Tablet 12.5 Mg PO BIDWMEALS Fluconazole 100 Mg Tablet 1 Tab PO DAILY Lasix (Furosemide) 40 Mg Tablet 40 Mg PO BID Reported Lisinopril 40 Mg Tablet 1 Tab PO DAILY Humalog (Insulin Lispro) 100 Unit/1 Ml Vial 50 Unit SQ TID Lortab 5-325 mg Tablet (Hydrocodone/Acetaminophen) 1 Each Tablet 1 Tab PO PRN Q6HRS PRN Levemir (Insulin Detemir) 100 Unit/1 Ml Vial 40 Unit SQ HS Victoza 3-Devon (Liraglutide) 0.6 Mg/0.1 Ml Pen.injctr 1.2 Mg SQ DAILY Gabapentin 300 Mg Capsule 1 Cap PO DAILY PRN Vitamin D3 (Cholecalciferol (Vitamin D3)) 5,000 Unit Tablet 1 Tab PO DAILY Glimepiride 4 Mg Tablet 1 Tab PO BID Tramadol Hcl 50 Mg Tablet 2 Tab PO BID Cyclobenzaprine Hcl 10 Mg Tablet 1 Tab PO BID Klor-Con 10 (Potassium Chloride) 10 Meq Tablet.er 1 Tab PO DAILY Omeprazole 20 Mg Capsule. 1 Cap PO DAILY Vitals/I & O Vital Sign - Last 24 Hours 02/13/17 02/13/17 02/13/17 02/13/17 09:00 09:00 11:00 15:00 Temp 97.4 97.4 97.4 97.4 Pulse 50 50 60 100 Resp 20 20 B/P (MAP) 91/51 91/51 95/53 (67) 133/73 (93) Pulse Ox 98 90 O2 Delivery Nasal Cannula Nasal Cannula O2 Flow Rate 2.0 2.0 02/13/17 02/13/17 02/13/17 02/13/17 19:30 20:00 21:45 21:45 Temp 97.5 97.5 Pulse 75 75 Resp 18 B/P (MAP) 126/72 (90) 126/72 Pulse Ox 97 O2 Delivery Nasal Cannula Nasal Cannula Nasal Cannula O2 Flow Rate 2.0 2.0 2.0 02/13/17 02/13/17 02/14/17 02/14/17 22:45 23:43 03:40 07:00 Temp 97.9 97.7 97.5 97.9 97.7 97.5 Pulse 70 53 68 Resp 17 16 19 B/P (MAP) 117/67 (84) 107/53 (71) 97/57 (70) Pulse Ox 95 93 93 O2 Delivery Nasal Cannula Nasal Cannula Room Air Room Air O2 Flow Rate 2.0 2.0 Intake and Output 02/13/17 02/13/17 02/14/17 15:00 23:00 07:00 Intake Total 200 ml 380 ml Output Total 425 ml Balance 200 ml -45 ml SUKHJINDER KAPLAN MD Feb 14, 2017 08:37
[2017-02-14] MEDS: CYCLOBENZAPRINE 10 MG TABLET. PO SCH ×2 (08:39→21:32)
[2017-02-14] MEDS: INSULIN ASPART 300 UNITS/3 ML INSULN.PEN SQ SCH ×6 (08:44→16:34)
[2017-02-14] MEDS: DICLOFENAC SODIUM 1% TOPICAL GEL 100GM TUBE. TP SCH ×2 (08:45→21:31)
[2017-02-14] MEDS: METOPROLOL TART IMMED RELEASE 25 MG TABLET. PO SCH ×2 (09:00→21:33)
[2017-02-14] MEDS: amLODIPine BESYLATE 10 MG TABLET PO SCH (09:00)
[2017-02-14] MEDS ORDERED: IV NORMAL SALINE 1000ML BAG 1,000 ML IV PRN ×2 (10:18)
[2017-02-14] MEDS ORDERED: DIALYSIS PATIENT. MC PRN (10:30)
--- NOTE | 2017-02-14 10:49 | PDOC ---
PROGRESS NOTES Subjective Subjective She continues with right knee pain,swelling and stiffness. 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 Plan Plan of Care To SNF when medically stable. Comment Review of Relevant I have reviewed the following items kai (where applicable) has been applied. Labs Laboratory Tests Test 02/12/17 12:30 02/12/17 17:25 02/12/17 21:17 02/13/17 05:00 Glucose (Fingerstick) 217 mg/dL (70-99) 203 mg/dL (70-99) 273 mg/dL (70-99) Sodium Level 138 mmol/L (136-145) Potassium Level 4.7 mmol/L (3.5-5.1) Chloride Level 102 mmol/L (98-107) Carbon Dioxide Level 27 mmol/L (21-32) Anion Gap 9 (6-14) Blood Urea Nitrogen 105 mg/dL (7-20) Creatinine 4.9 mg/dL (0.6-1.0) Estimated GFR (Cockcroft-Gault) 8.8 Glucose Level 235 mg/dL (70-99) Calcium Level 8.7 mg/dL (8.5-10.1) Test 02/13/17 05:15 02/13/17 08:29 02/13/17 12:22 02/13/17 16:07 White Blood Count 5.3 x10^3/uL (4.0-11.0) Red Blood Count 3.30 x10^6/uL (3.50-5.40) Hemoglobin 9.3 g/dL (12.0-15.5) Hematocrit 29.5 % (36.0-47.0) Mean Corpuscular Volume 89 fL (79-100) Mean Corpuscular Hemoglobin 28 pg (25-35) Mean Corpuscular Hemoglobin Concent 32 g/dL (31-37) Red Cell Distribution Width 15.6 % (11.5-14.5) Platelet Count 162 x10^3/uL (140-400) Neutrophils (%) (Auto) 81 % (31-73) Lymphocytes (%) (Auto) 15 % (24-48) Monocytes (%) (Auto) 4 % (0-9) Eosinophils (%) (Auto) 0 % (0-3) Basophils (%) (Auto) 0 % (0-3) Neutrophils # (Auto) 4.3 x10^3uL (1.8-7.7) Lymphocytes # (Auto) 0.8 x10^3/uL (1.0-4.8) Monocytes # (Auto) 0.2 x10^3/uL (0.0-1.1) Eosinophils # (Auto) 0.0 x10^3/uL (0.0-0.7) Basophils # (Auto) 0.0 x10^3/uL (0.0-0.2) Glucose (Fingerstick) 214 mg/dL (70-99) 221 mg/dL (70-99) 195 mg/dL (70-99) Test 02/13/17 19:15 02/13/17 22:36 02/14/17 05:00 02/14/17 07:57 Glucose (Fingerstick) 180 mg/dL (70-99) 286 mg/dL (70-99) 174 mg/dL (70-99) White Blood Count 5.3 x10^3/uL (4.0-11.0) Red Blood Count 3.37 x10^6/uL (3.50-5.40) Hemoglobin 9.5 g/dL (12.0-15.5) Hematocrit 29.8 % (36.0-47.0) Mean Corpuscular Volume 88 fL (79-100) Mean Corpuscular Hemoglobin 28 pg (25-35) Mean Corpuscular Hemoglobin Concent 32 g/dL (31-37) Red Cell Distribution Width 15.3 % (11.5-14.5) Platelet Count 166 x10^3/uL (140-400) Neutrophils (%) (Auto) 79 % (31-73) Lymphocytes (%) (Auto) 16 % (24-48) Monocytes (%) (Auto) 5 % (0-9) Eosinophils (%) (Auto) 0 % (0-3) Basophils (%) (Auto) 0 % (0-3) Neutrophils # (Auto) 4.2 x10^3uL (1.8-7.7) Lymphocytes # (Auto) 0.9 x10^3/uL (1.0-4.8) Monocytes # (Auto) 0.3 x10^3/uL (0.0-1.1) Eosinophils # (Auto) 0.0 x10^3/uL (0.0-0.7) Basophils # (Auto) 0.0 x10^3/uL (0.0-0.2) Sodium Level 140 mmol/L (136-145) Potassium Level 4.8 mmol/L (3.5-5.1) Chloride Level 103 mmol/L (98-107) Carbon Dioxide Level 28 mmol/L (21-32) Anion Gap 9 (6-14) Blood Urea Nitrogen 70 mg/dL (7-20) Creatinine 3.6 mg/dL (0.6-1.0) Estimated GFR (Cockcroft-Gault) 12.6 Glucose Level 224 mg/dL (70-99) Calcium Level 8.1 mg/dL (8.5-10.1) Laboratory Tests Test 02/13/17 12:22 02/13/17 16:07 02/13/17 19:15 02/13/17 22:36 Glucose (Fingerstick) 221 mg/dL (70-99) 195 mg/dL (70-99) 180 mg/dL (70-99) 286 mg/dL (70-99) Test 02/14/17 05:00 02/14/17 07:57 White Blood Count 5.3 x10^3/uL (4.0-11.0) Red Blood Count 3.37 x10^6/uL (3.50-5.40) Hemoglobin 9.5 g/dL (12.0-15.5) Hematocrit 29.8 % (36.0-47.0) Mean Corpuscular Volume 88 fL (79-100) Mean Corpuscular Hemoglobin 28 pg (25-35) Mean Corpuscular Hemoglobin Concent 32 g/dL (31-37) Red Cell Distribution Width 15.3 % (11.5-14.5) Platelet Count 166 x10^3/uL (140-400) Neutrophils (%) (Auto) 79 % (31-73) Lymphocytes (%) (Auto) 16 % (24-48) Monocytes (%) (Auto) 5 % (0-9) Eosinophils (%) (Auto) 0 % (0-3) Basophils (%) (Auto) 0 % (0-3) Neutrophils # (Auto) 4.2 x10^3uL (1.8-7.7) Lymphocytes # (Auto) 0.9 x10^3/uL (1.0-4.8) Monocytes # (Auto) 0.3 x10^3/uL (0.0-1.1) Eosinophils # (Auto) 0.0 x10^3/uL (0.0-0.7) Basophils # (Auto) 0.0 x10^3/uL (0.0-0.2) Sodium Level 140 mmol/L (136-145) Potassium Level 4.8 mmol/L (3.5-5.1) Chloride Level 103 mmol/L (98-107) Carbon Dioxide Level 28 mmol/L (21-32) Anion Gap 9 (6-14) Blood Urea Nitrogen 70 mg/dL (7-20) Creatinine 3.6 mg/dL (0.6-1.0) Estimated GFR (Cockcroft-Gault) 12.6 Glucose Level 224 mg/dL (70-99) Calcium Level 8.1 mg/dL (8.5-10.1) Glucose (Fingerstick) 174 mg/dL (70-99) Microbiology 02/08/17 Gram Stain - Final, Complete Medications Current Medications Zolpidem Tartrate (Ambien) 5 mg PRN QHS PRN PO INSOMNIA, MAY REPEAT IN 1HR Last administered on 02/09/17 21:49; Start 01/29/17 at 18:45 Oxycodone HCl (Roxicodone) 5 mg PRN Q3HRS PRN PO BREAKTHROUGH PAIN Last administered on 02/13/17 21:45; Start 01/29/17 at 18:45 Acetaminophen (Tylenol) 650 mg PRN Q6HRS PRN PO Headaches, Temp > 101.5F Last administered on 02/08/17 21:24; Start 01/29/17 at 18:45 Ibuprofen (Motrin) 400 mg PRN Q6HRS PRN PO MILD PAIN; Start 01/29/17 at 18:45; Stop 02/05/17 at 09:24; Status DC Docusate Sodium (Colace) 100 mg BID PO Last administered on 02/01/17 08:42; Start 01/29/17 at 21:00; Stop 02/02/17 at 11:08; Status DC Magnesium Hydroxide (Milk Of Magnesia) 2,400 mg PRN Q12HR PRN PO CONSTIPATION; Start 01/29/17 at 18:45 Lactulose 20 gm PRN Q12HR PRN PO CONSTIPATION; Start 01/29/17 at 18:45; Stop at 09:12; Status DC Bisacodyl (Dulcolax Supp) 10 mg PRN DAILY PRN MA CONSTIPATION; Start 01/29/17 at 18:45; Stop 02/02/17 at 11:08; Status DC Enoxaparin Sodium (Lovenox 40mg Syringe) 40 mg Q12HR SQ Last administered on 21:09; Start 01/29/17 at 22:00; Stop 01/31/17 at 07:12; Status DC Alprazolam (Xanax) 0.25 mg QHS PRN PO ANXIETY / AGITATION Last administered on 02/12/17 21:20; Start 01/29/17 at 18:45 Carvedilol (Coreg) 12.5 mg BIDWMEALS PO Last administered on 01/29/17 21:51; Start 01/29/17 at 19:00; Stop 01/30/17 at 11:28; Status DC Cyclobenzaprine HCl (Flexeril) 10 mg BID PO Last administered on 02/13/17 21:44 ; Start 01/29/17 at 21:00 Fluconazole (Diflucan) 100 mg DAILY PO Last administered on 02/12/17 08:03; Start 01/30/17 at 09:00; Stop 02/12/17 at 09:25; Status DC Furosemide (Lasix) 40 mg BID92 PO ; Start 01/30/17 at 09:00; Stop 01/30/17 at 09 :00; Status DC Hydralazine HCl (Apresoline) 25 mg BID PO Last administered on 02/09/17 08:30; Start 01/29/17 at 21:00; Stop 02/11/17 at 13:26; Status DC Acetaminophen/ Hydrocodone Bitart (Lortab 5/325) 1 tab PRN Q6HRS PRN PO MILD PAIN Last administered on 02/09/17 21:52; Start 01/29/17 at 18:45; Stop 02/11/17 at 09:12; Status DC Lisinopril (Prinivil) 40 mg DAILY PO Last administered on 02/11/17 10:18; Start 01/30/17 at 09:00; Stop 02/11/17 at 13:25; Status DC Oxycodone/ Acetaminophen (Percocet 10/325) 1 tab PRN Q6HRS PRN PO MODERATE- SEVERE PAIN Last administered on 02/10/17 13:11; Start 01/29/17 at 18:45 Tramadol HCl (Ultram) 100 mg BID PO Last administered on 01/29/17 21:50; Start 01/29/17 at 21:00; Stop 01/30/17 at 11:51; Status DC Vitamin D (Vitamin D3) 5,000 unit DAILY PO Last administered on 02/14/17 08:36 ; Start 01/30/17 at 09:00 Gabapentin (Neurontin) 300 mg PRN DAILY PRN PO NERVE PAIN Last administered on 02/09/17 21:51; Start 01/29/17 at 21:00 Glimepiride (Amaryl) 4 mg BIDWMEALS PO Last administered on 02/08/17 09:10; Start 01/30/17 at 09:00; Stop 02/09/17 at 09:09; Status DC Insulin Detemir (Levemir) 40 units QHS SQ Last administered on 01/29/17 22:01 ; Start 01/29/17 at 21:00; Stop 01/30/17 at 11:51; Status DC Insulin Aspart (NovoLOG) 50 units TIDAC SQ Last administered on 01/29/17 22:00 ; Start 01/29/17 at 19:00; Stop 01/30/17 at 11:51; Status DC Non-Formulary Medication 1.2 mg DAILY SQ ; Start 01/30/17 at 09:00; Stop at 09:00; Status DC Pantoprazole Sodium (Protonix) 40 mg DAILYAC PO Last administered on 02/14/17 08:36; Start 01/30/17 at 07:30 Potassium Chloride (Klor-Con) 10 meq DAILYWBKFT PO Last administered on 08:59; Start 01/30/17 at 08:00; Stop 02/05/17 at 09:21; Status DC Insulin Aspart (NovoLOG) 0-9 UNITS TIDWMEALS SQ Last administered on 02/14/17 08:45; Start 01/30/17 at 08:00 Dextrose (Dextrose 50%-Water Syringe) 12.5 gm PRN Q15MIN PRN IV SEE COMMENTS; Start 01/29/17 at 18:45 Furosemide (Lasix) 40 mg 1X ONCE IVP Last administered on 01/29/17 21:52; Start 01/29/17 at 21:00; Stop 01/29/17 at 21:01; Status DC Furosemide (Lasix) 40 mg BID92 IVP Last administered on 01/30/17 11:01; Start 01/30/17 at 09:00; Stop 01/30/17 at 11:28; Status DC Lidocaine HCl (Xylocaine-Mpf 1% Vial) 2 ml STK-MED ONCE .ROUTE ; Start 01/29/17 at 20:37; Stop 01/29/17 at 20:38; Status DC Dextrose 250 ml @ 1,000 mls/hr 1X ONCE IV ; Start 01/30/17 at 07:45; Stop at 07:59; Status DC Glucose (Insta-Glucose) 15 gm PRN Q15MIN PRN PO LOW BLOOD SUGAR Last administered on 01/30/17 07:55; Start 01/30/17 at 08:00 Glucose (Insta-Glucose) 15 gm STK-MED ONCE .ROUTE ; Start 01/30/17 at 07:52; Stop 01/30/17 at 07:53; Status DC Lidocaine HCl (Xylocaine-Mpf 1% Vial) 2 ml STK-MED ONCE .ROUTE ; Start 01/29/17 at 21:00; Stop 01/30/17 at 09:01; Status DC Furosemide (Lasix) 40 mg DAILY IVP Last administered on 02/03/17 08:39; Start 01/31/17 at 09:00; Stop 02/03/17 at 15:50; Status DC Aspirin (Ecotrin) 81 mg [id number] PO Last administered on 02/14/17 08:36; Start 01/30/17 at 12:30 Insulin Detemir (Levemir) 25 units QHS SQ Last administered on 02/02/17 20:54 ; Start 01/30/17 at 21:00; Stop 02/03/17 at 11:09; Status DC Gabapentin (Neurontin) 400 mg BID PO Last administered on 02/14/17 08:37; Start 01/31/17 at 09:00 Gabapentin (Neurontin) 100 mg 1X ONCE PO Last administered on 01/31/17 01:56 ; Start 01/31/17 at 02:00; Stop 01/31/17 at 02:01; Status DC Enoxaparin Sodium (Lovenox 40mg Syringe) 40 mg QHS SQ Last administered on 02/03 20:32; Start 01/31/17 at 21:00; Stop 02/04/17 at 09:32; Status DC Methylprednisolone Acetate (DEPO-Medrol 40MG VIAL) 40 mg 1X ONCE IM Last administered on 02/01/17 13:30; Start 02/01/17 at 13:30; Stop 02/01/17 at 13:31 ; Status DC Lidocaine/Sodium Bicarbonate (Buffered Lidocaine 1%) 20 ml 1X ONCE IJ Last administered on 02/01/17 13:30; Start 02/01/17 at 13:30; Stop 02/01/17 at 13:31 ; Status DC Labetalol HCl (Normodyne) 20 mg PRN Q2HR PRN IVP HYPERTENSION, SEE COMMENTS Last administered on 02/01/17 23:59; Start 02/01/17 at 23:30; Stop 02/03/17 at 15:47; Status DC Insulin Aspart (NovoLOG) 10 units TIDAC SQ Last administered on 02/06/17 07:30 ; Start 02/02/17 at 11:30; Stop 02/07/17 at 13:06; Status DC Insulin Aspart (NovoLOG VIAL) 15 unit 1X ONCE SQ ; Start 02/02/17 at 08:45; Stop 02/02/17 at 08:46; Status Cancel Insulin Aspart (NovoLOG) 15 units 1X ONCE SQ Last administered on 02/02/17 08 :42; Start 02/02/17 at 08:45; Stop 02/02/17 at 08:46; Status DC Loperamide HCl (Imodium) 2 mg PRN Q15MIN PRN PO DIARRHEA Last administered on 09:43; Start 02/02/17 at 11:15; Stop 02/03/17 at 12:31; Status DC Loperamide HCl (Imodium) 2 mg PRN Q15MIN PRN PO DIARRHEA Last administered on 01:35; Start 02/02/17 at 12:45; Stop 02/04/17 at 14:00; Status DC Insulin Detemir (Levemir) 35 units QHS SQ Last administered on 02/06/17 20:58; Start 02/03/17 at 21:00; Stop 02/07/17 at 13:06; Status DC Metoprolol Tartrate (Lopressor) 12.5 mg BID PO Last administered on 02/13/17 21 :45; Start 02/03/17 at 21:00 Furosemide (Lasix) 60 mg DAILY PO Last administered on 02/04/17 08:57; Start 02/04/17 at 09:00; Stop 02/04/17 at 14:34; Status DC Heparin Sodium (Porcine) (Heparin Sq) 5,000 unit Q8HRS SQ Last administered on 02/14/17 06:45; Start 02/04/17 at 14:00 Loperamide HCl (Imodium) 2 mg TID PO Last administered on 02/07/17 20:32; Start 02/04/17 at 14:00; Stop 02/09/17 at 10:50; Status DC Magnesium Sulfate/ Dextrose 50 ml @ 25 mls/hr PRN DAILY PRN IV for Mag < 1.7 on am labs; Start 02/04/17 at 14:30; Stop 02/05/17 at 10:05; Status DC Furosemide 100 mg/ Sodium Chloride 100 ml @ 0 mls/hr CONT PRN IV SEE I/O RECORD Last administered on 02/04/17 15:59; Start 02/04/17 at 14:30; Stop at 09:27; Status DC Acetylcysteine (Mucomyst 20% Oral Solution) 1,200 mg BID PO Last administered on 02/06/17 20:49; Start 02/05/17 at 09:00; Stop 02/07/17 at 08:59; Status DC Sodium Polystyrene Sulfonate (Kayexalate) 30 gm 1X ONCE PO Last administered on 02/06/17 09:49; Start 02/06/17 at 09:30; Stop 02/06/17 at 09:31; Status DC Dextrose 10 ml 1X ONCE IV Last administered on 02/06/17 09:56; Start 02/06/17 at 09:30; Stop 02/06/17 at 09:31; Status DC Insulin Human Regular (NovoLIN R VIAL) 10 unit 1X ONCE IV Last administered on 02/06/17 09:59; Start 02/06/17 at 09:30; Stop 02/06/17 at 09:31; Status DC Heparin Sodium/ Sodium Chloride 500 ml @ As Directed STK-MED ONCE .ROUTE ; Start 02/06/17 at 10:10; Stop 02/06/17 at 10:11; Status DC Lidocaine HCl 20 ml STK-MED ONCE .ROUTE ; Start 02/06/17 at 10:10; Stop 02/06/17 at 10:11; Status DC Fentanyl Citrate (Fentanyl 2ml Vial) 100 mcg STK-MED ONCE .ROUTE ; Start at 10:39; Stop 02/06/17 at 10:40; Status DC Midazolam HCl (Versed) 2 mg STK-MED ONCE .ROUTE ; Start 02/06/17 at 10:39; Stop 02/06/17 at 10:40; Status DC Heparin Sodium/ Sodium Chloride 1,000 unit 1X ONCE IART Last administered on 11:10; Start 02/06/17 at 11:15; Stop 02/06/17 at 11:16; Status DC Midazolam HCl (Versed) 1 mg 1X ONCE IV Last administered on 02/06/17 11:11; Start 02/06/17 at 11:15; Stop 02/06/17 at 11:16; Status DC Fentanyl Citrate (Fentanyl 2ml Vial) 50 mcg 1X ONCE IV Last administered on 11:11; Start 02/06/17 at 11:15; Stop 02/06/17 at 11:16; Status DC Lidocaine HCl 20 ml 1X ONCE IJ Last administered on 02/06/17 11:10; Start 02/06 at 11:15; Stop 02/06/17 at 11:16; Status DC Sodium Chloride (Normal Saline Flush) 3 ml QSHIFT PRN IV AFTER MEDS AND BLOOD DRAWS; Start 02/06/17 at 11:15 Nitroglycerin (Nitrostat) 0.4 mg PRN Q5MIN PRN SL CHEST PAIN; Start 02/06/17 at 11:15 Iron Sucrose 200 mg/Sodium Chloride 110 ml @ 55 mls/hr 3X/WEEK IV Last administered on 02/06/17 16:30; Start 02/06/17 at 13:00; Stop 02/11/17 at 09:12; Status DC Furosemide 100 mg/ Sodium Chloride 100 ml @ 0 mls/hr CONT PRN IV SEE I/O RECORD Last administered on 02/10/17 12:59; Start 02/06/17 at 13:30; Stop at 09:12; Status DC Insulin Detemir (Levemir) 20 units QHS SQ ; Start 02/07/17 at 21:00; Stop at 09:08; Status DC Furosemide (Lasix) 20 mg 1X ONCE IVP ; Start 02/07/17 at 13:30; Stop 02/07/17 at 13:31; Status Cancel Diclofenac Sodium (Voltaren) 1 katia BID TP Last administered on 02/14/17 08:45 ; Start 02/08/17 at 13:30 Lidocaine HCl 16 ml/Sodium Bicarbonate 4 meq/ Miscellaneous 20 ml @ 20 mls/hr 1X ONCE ID ; Start 02/09/17 at 06:00; Stop 02/09/17 at 06:59; Status UNV Lidocaine HCl 10 ml 1X ONCE INJ Last administered on 02/08/17 15:44; Start 02/08/17 at 14:00; Stop 02/08/17 at 14:01; Status DC Amlodipine Besylate (Norvasc) 10 mg DAILY PO Last administered on 02/12/17 08: 10; Start 02/09/17 at 09:00 Amlodipine Besylate (Norvasc) 10 mg 1X ONCE PO Last administered on 02/08/17 15:43; Start 02/08/17 at 16:00; Stop 02/08/17 at 16:01; Status DC Insulin Detemir (Levemir) 12 units QHS SQ Last administered on 02/10/17 21:02; Start 02/09/17 at 21:00; Stop 02/11/17 at 10:15; Status DC Ceftriaxone Sodium 1 gm/ Sodium Chloride 50 ml @ 100 mls/hr Q24H IV Last administered on 02/09/17 11:41; Start 02/09/17 at 10:00; Stop 02/10/17 at 09:25; Status DC Loperamide HCl (Imodium) 2 mg PRN TID PRN PO if diarrhea recurs; Start 02/09/17 at 11:00 Lidocaine HCl (Xylocaine-Mpf 1% Vial) 2 ml STK-MED ONCE .ROUTE ; Start 02/10/17 at 06:35; Stop 02/10/17 at 06:36; Status DC Prednisone (Prednisone) 60 mg 1X ONCE PO Last administered on 02/10/17 09:53; Start 02/10/17 at 09:30; Stop 02/10/17 at 09:41; Status DC Prednisone (Prednisone) 40 mg DAILY PO Last administered on 02/12/17 08:02; Start 02/11/17 at 09:00; Stop 02/12/17 at 12:09; Status DC Colchicine (Colcrys) 1.2 mg 1X ONCE PO Last administered on 02/10/17 09:53; Start 02/10/17 at 09:30; Stop 02/10/17 at 09:41; Status DC Colchicine (Colcrys) 0.6 mg DAILY PO ; Start 02/11/17 at 09:00; Stop 02/11/17 at 09:00; Status DC Lidocaine HCl 1 ml STK-MED ONCE .ROUTE ; Start 02/11/17 at 09:38; Stop 02/11/17 at 09:39; Status DC Insulin Detemir (Levemir) 20 units QHS SQ Last administered on 02/13/17 22:41; Start 02/11/17 at 21:00 Insulin Aspart (NovoLOG) 15 units 1X ONCE SQ Last administered on 02/11/17 10: 15; Start 02/11/17 at 10:15; Stop 02/11/17 at 10:16; Status DC Insulin Aspart (NovoLOG) 8 units TIDAC SQ Last administered on 02/14/17 08:44 ; Start 02/11/17 at 11:30 Glycerin (Sani-Supp Adult) 1 supp 1X ONCE MA Last administered on 02/11/17 16: 37; Start 02/11/17 at 16:15; Stop 02/11/17 at 16:16; Status DC Prednisone (Prednisone) 20 mg DAILY PO Last administered on 02/14/17 08:37; Start 02/12/17 at 12:00 Sodium Chloride 500 ml @ 100 mls/hr 1X ONCE IV Last administered on 02/12/17 13:07; Start 02/12/17 at 12:30; Stop 02/12/17 at 17:29; Status DC Sertraline HCl (Zoloft) 25 mg QHS PO Last administered on 02/13/17 21:45; Start 02/12/17 at 21:00 Heparin Sodium (Porcine) (Heparin Sodium) 10,000 unit STK-MED ONCE .ROUTE ; Start 02/13/17 at 12:13; Stop 02/13/17 at 12:14; Status DC Lidocaine/Sodium Bicarbonate (Buffered Lidocaine 1%) 20 ml STK-MED ONCE IJ ; Start 02/13/17 at 12:13; Stop 02/13/17 at 12:14; Status DC Heparin Sodium/ Sodium Chloride 500 ml @ As Directed STK-MED ONCE .ROUTE ; Start 02/13/17 at 12:13; Stop 02/13/17 at 12:14; Status DC Heparin Sodium/ Sodium Chloride 1,000 unit 1X ONCE IART Last administered on 12:46; Start 02/13/17 at 12:45; Stop 02/13/17 at 12:46; Status DC Lidocaine/Sodium Bicarbonate (Buffered Lidocaine 1%) 3 ml 1X ONCE IJ Last administered on 02/13/17 12:46; Start 02/13/17 at 12:45; Stop 02/13/17 at 12:46; Status DC Heparin Sodium (Porcine) (Heparin Sodium) 2,500 unit 1X ONCE INT CAT Last administered on 02/13/17 12:46; Start 02/13/17 at 12:45; Stop 02/13/17 at 12:46; Status DC Sodium Chloride 1,000 ml @ 1,000 mls/hr Q1H PRN IV hypotension; Start 02/13/17 at 16:41; Stop 02/13/17 at 22:40; Status DC Diphenhydramine HCl (Benadryl) 25 mg 1X PRN PRN IV ITCHING; Start 02/13/17 at 16 :45; Stop 02/14/17 at 16:44 Diphenhydramine HCl (Benadryl) 25 mg 1X PRN PRN IV ITCHING; Start 02/13/17 at 16 :45; Stop 02/14/17 at 16:44 Sodium Chloride (Normal Saline Flush) 10 ml 1X PRN PRN IV AP catheter pack; Start 02/13/17 at 16:45; Stop 02/14/17 at 16:44 Sodium Chloride (Normal Saline Flush) 10 ml 1X PRN PRN IV MUSIC ADAPTER catheter pack; Start 02/13/17 at 16:45; Stop 02/14/17 at 16:44 Info (PHARMACY MONITORING -- do not chart) 1 each PRN DAILY PRN MC SEE COMMENTS ; Start 02/13/17 at 16:45 Sodium Chloride 1,000 ml @ 1,000 mls/hr Q1H PRN IV hypotension; Start 02/14/17 at 10:18; Stop 02/14/17 at 16:17 Sodium Chloride 1,000 ml @ 400 mls/hr Q2H30M PRN IV PATENCY; Start 02/14/17 at 10:18; Stop 02/14/17 at 22:17 Info (PHARMACY MONITORING -- do not chart) 1 each PRN DAILY PRN MC SEE COMMENTS ; Start 02/14/17 at 10:30; Status UNV Active Scripts Active Xanax (Alprazolam) 0.25 Mg Tablet 0.25 Mg PO QHS PRN Oxycodone-Acetaminophen 10-325 (Oxycodone Hcl/Acetaminophen) 1 Each Tablet 1 Tab PO PRN Q6HRS PRN Hydralazine Hcl 25 Mg Tablet 25 Mg PO BID Carvedilol 12.5 Mg Tablet 12.5 Mg PO BIDWMEALS Fluconazole 100 Mg Tablet 1 Tab PO DAILY Lasix (Furosemide) 40 Mg Tablet 40 Mg PO BID Reported Lisinopril 40 Mg Tablet 1 Tab PO DAILY Humalog (Insulin Lispro) 100 Unit/1 Ml Vial 50 Unit SQ TID Lortab 5-325 mg Tablet (Hydrocodone/Acetaminophen) 1 Each Tablet 1 Tab PO PRN Q6HRS PRN Levemir (Insulin Detemir) 100 Unit/1 Ml Vial 40 Unit SQ HS Victoza 3-Devon (Liraglutide) 0.6 Mg/0.1 Ml Pen.injctr 1.2 Mg SQ DAILY Gabapentin 300 Mg Capsule 1 Cap PO DAILY PRN Vitamin D3 (Cholecalciferol (Vitamin D3)) 5,000 Unit Tablet 1 Tab PO DAILY Glimepiride 4 Mg Tablet 1 Tab PO BID Tramadol Hcl 50 Mg Tablet 2 Tab PO BID Cyclobenzaprine Hcl 10 Mg Tablet 1 Tab PO BID Klor-Con 10 (Potassium Chloride) 10 Meq Tablet.er 1 Tab PO DAILY Omeprazole 20 Mg Capsule.dr 1 Cap PO DAILY Vitals/I & O Vital Sign - Last 24 Hours 02/13/17 02/13/17 02/13/17 02/13/17 11:00 15:00 19:30 20:00 Temp 97.4 97.4 97.5 97.4 97.4 97.5 Pulse 60 100 75 Resp 20 20 18 B/P (MAP) 95/53 (67) 133/73 (93) 126/72 (90) Pulse Ox 98 90 97 O2 Delivery Nasal Cannula Nasal Cannula Nasal Cannula Nasal Cannula O2 Flow Rate 2.0 2.0 2.0 2.0 02/13/17 02/13/17 02/13/17 02/13/17 21:45 21:45 22:45 23:43 Temp 97.9 97.9 Pulse 75 70 Resp 17 B/P (MAP) 126/72 117/67 (84) Pulse Ox 95 O2 Delivery Nasal Cannula Nasal Cannula Nasal Cannula O2 Flow Rate 2.0 2.0 2.0 02/14/17 02/14/17 02/14/17 02/14/17 03:40 07:00 08:00 09:00 Temp 97.7 97.5 97.7 97.5 Pulse 53 68 68 Resp 16 19 B/P (MAP) 107/53 (71) 97/57 (70) 97/57 Pulse Ox 93 93 O2 Delivery Room Air Room Air Nasal Cannula O2 Flow Rate 2.0 02/14/17 09:00 Pulse 68 B/P (MAP) 97/57 Intake and Output 02/13/17 02/13/17 02/14/17 15:00 23:00 07:00 Intake Total 200 ml 380 ml Output Total 425 ml Balance 200 ml -45 ml GABRIEL LAWS MD Feb 14, 2017 10:49
--- NOTE | 2017-02-14 13:57 | PDOC ---
PROGRESS NOTES Subjective Subjective SEEN IN FOLLOW UP OF ESRD Objective Objective Vital Signs Date Time Temp Pulse Resp B/P (MAP) Pulse Ox O2 Delivery O2 Flow Rate FiO2 02/14/17 09:00 68 97/57 02/14/17 08:00 Nasal Cannula 2.0 02/14/17 07:00 97.5 19 93 97.5 Intake and Output 02/14/17 07:00 Intake Total 580 ml Output Total 425 ml Balance 155 ml Intake Oral 580 ml Output Urine Total 425 ml Physical Exam Abdomen: Normal bowel sounds, Soft, No tenderness, No hepatosplenomegaly, No masses Heart: Regular rate, Normal S1, Normal S2, No murmurs, Gallops Extremities: No clubbing, No cyanosis, No edema, Normal pulses, No tenderness/ swelling General: Alert, Oriented X3, Cooperative, No acute distress Lungs: Clear to auscultation, Normal air movement Psych/Mental Status: Mental status NL, Mood NL Diagnosis RENAL FAILURE: ESRD Plan Plan of Care SEEN AT [facility] Comment Review of Relevant I have reviewed the following items kai (where applicable) has been applied. Labs Laboratory Tests Test 02/12/17 17:25 02/12/17 21:17 02/13/17 05:00 02/13/17 05:15 Glucose (Fingerstick) 203 mg/dL (70-99) 273 mg/dL (70-99) Sodium Level 138 mmol/L (136-145) Potassium Level 4.7 mmol/L (3.5-5.1) Chloride Level 102 mmol/L (98-107) Carbon Dioxide Level 27 mmol/L (21-32) Anion Gap 9 (6-14) Blood Urea Nitrogen 105 mg/dL (7-20) Creatinine 4.9 mg/dL (0.6-1.0) Estimated GFR (Cockcroft-Gault) 8.8 Glucose Level 235 mg/dL (70-99) Calcium Level 8.7 mg/dL (8.5-10.1) White Blood Count 5.3 x10^3/uL (4.0-11.0) Red Blood Count 3.30 x10^6/uL (3.50-5.40) Hemoglobin 9.3 g/dL (12.0-15.5) Hematocrit 29.5 % (36.0-47.0) Mean Corpuscular Volume 89 fL (79-100) Mean Corpuscular Hemoglobin 28 pg (25-35) Mean Corpuscular Hemoglobin Concent 32 g/dL (31-37) Red Cell Distribution Width 15.6 % (11.5-14.5) Platelet Count 162 x10^3/uL (140-400) Neutrophils (%) (Auto) 81 % (31-73) Lymphocytes (%) (Auto) 15 % (24-48) Monocytes (%) (Auto) 4 % (0-9) Eosinophils (%) (Auto) 0 % (0-3) Basophils (%) (Auto) 0 % (0-3) Neutrophils # (Auto) 4.3 x10^3uL (1.8-7.7) Lymphocytes # (Auto) 0.8 x10^3/uL (1.0-4.8) Monocytes # (Auto) 0.2 x10^3/uL (0.0-1.1) Eosinophils # (Auto) 0.0 x10^3/uL (0.0-0.7) Basophils # (Auto) 0.0 x10^3/uL (0.0-0.2) Test 02/13/17 08:29 02/13/17 12:22 02/13/17 16:07 02/13/17 19:15 Glucose (Fingerstick) 214 mg/dL (70-99) 221 mg/dL (70-99) 195 mg/dL (70-99) 180 mg/dL (70-99) Test 02/13/17 22:36 02/14/17 05:00 02/14/17 07:57 Glucose (Fingerstick) 286 mg/dL (70-99) 174 mg/dL (70-99) White Blood Count 5.3 x10^3/uL (4.0-11.0) Red Blood Count 3.37 x10^6/uL (3.50-5.40) Hemoglobin 9.5 g/dL (12.0-15.5) Hematocrit 29.8 % (36.0-47.0) Mean Corpuscular Volume 88 fL (79-100) Mean Corpuscular Hemoglobin 28 pg (25-35) Mean Corpuscular Hemoglobin Concent 32 g/dL (31-37) Red Cell Distribution Width 15.3 % (11.5-14.5) Platelet Count 166 x10^3/uL (140-400) Neutrophils (%) (Auto) 79 % (31-73) Lymphocytes (%) (Auto) 16 % (24-48) Monocytes (%) (Auto) 5 % (0-9) Eosinophils (%) (Auto) 0 % (0-3) Basophils (%) (Auto) 0 % (0-3) Neutrophils # (Auto) 4.2 x10^3uL (1.8-7.7) Lymphocytes # (Auto) 0.9 x10^3/uL (1.0-4.8) Monocytes # (Auto) 0.3 x10^3/uL (0.0-1.1) Eosinophils # (Auto) 0.0 x10^3/uL (0.0-0.7) Basophils # (Auto) 0.0 x10^3/uL (0.0-0.2) Sodium Level 140 mmol/L (136-145) Potassium Level 4.8 mmol/L (3.5-5.1) Chloride Level 103 mmol/L (98-107) Carbon Dioxide Level 28 mmol/L (21-32) Anion Gap 9 (6-14) Blood Urea Nitrogen 70 mg/dL (7-20) Creatinine 3.6 mg/dL (0.6-1.0) Estimated GFR (Cockcroft-Gault) 12.6 Glucose Level 224 mg/dL (70-99) Calcium Level 8.1 mg/dL (8.5-10.1) Laboratory Tests Test 02/13/17 16:07 02/13/17 19:15 02/13/17 22:36 02/14/17 05:00 Glucose (Fingerstick) 195 mg/dL (70-99) 180 mg/dL (70-99) 286 mg/dL (70-99) White Blood Count 5.3 x10^3/uL (4.0-11.0) Red Blood Count 3.37 x10^6/uL (3.50-5.40) Hemoglobin 9.5 g/dL (12.0-15.5) Hematocrit 29.8 % (36.0-47.0) Mean Corpuscular Volume 88 fL (79-100) Mean Corpuscular Hemoglobin 28 pg (25-35) Mean Corpuscular Hemoglobin Concent 32 g/dL (31-37) Red Cell Distribution Width 15.3 % (11.5-14.5) Platelet Count 166 x10^3/uL (140-400) Neutrophils (%) (Auto) 79 % (31-73) Lymphocytes (%) (Auto) 16 % (24-48) Monocytes (%) (Auto) 5 % (0-9) Eosinophils (%) (Auto) 0 % (0-3) Basophils (%) (Auto) 0 % (0-3) Neutrophils # (Auto) 4.2 x10^3uL (1.8-7.7) Lymphocytes # (Auto) 0.9 x10^3/uL (1.0-4.8) Monocytes # (Auto) 0.3 x10^3/uL (0.0-1.1) Eosinophils # (Auto) 0.0 x10^3/uL (0.0-0.7) Basophils # (Auto) 0.0 x10^3/uL (0.0-0.2) Sodium Level 140 mmol/L (136-145) Potassium Level 4.8 mmol/L (3.5-5.1) Chloride Level 103 mmol/L (98-107) Carbon Dioxide Level 28 mmol/L (21-32) Anion Gap 9 (6-14) Blood Urea Nitrogen 70 mg/dL (7-20) Creatinine 3.6 mg/dL (0.6-1.0) Estimated GFR (Cockcroft-Gault) 12.6 Glucose Level 224 mg/dL (70-99) Calcium Level 8.1 mg/dL (8.5-10.1) Test 02/14/17 07:57 Glucose (Fingerstick) 174 mg/dL (70-99) Microbiology 02/08/17 Gram Stain - Final, Complete Medications Current Medications Zolpidem Tartrate (Ambien) 5 mg PRN QHS PRN PO INSOMNIA, MAY REPEAT IN 1HR Last administered on 02/09/17 21:49; Start 01/29/17 at 18:45 Oxycodone HCl (Roxicodone) 5 mg PRN Q3HRS PRN PO BREAKTHROUGH PAIN Last administered on 02/13/17 21:45; Start 01/29/17 at 18:45 Acetaminophen (Tylenol) 650 mg PRN Q6HRS PRN PO Headaches, Temp > 101.5F Last administered on 02/08/17 21:24; Start 01/29/17 at 18:45 Ibuprofen (Motrin) 400 mg PRN Q6HRS PRN PO MILD PAIN; Start 01/29/17 at 18:45; Stop 02/05/17 at 09:24; Status DC Docusate Sodium (Colace) 100 mg BID PO Last administered on 02/01/17 08:42; Start 01/29/17 at 21:00; Stop 02/02/17 at 11:08; Status DC Magnesium Hydroxide (Milk Of Magnesia) 2,400 mg PRN Q12HR PRN PO CONSTIPATION; Start 01/29/17 at 18:45 Lactulose 20 gm PRN Q12HR PRN PO CONSTIPATION; Start 01/29/17 at 18:45; Stop at 09:12; Status DC Bisacodyl (Dulcolax Supp) 10 mg PRN DAILY PRN [place] CONSTIPATION; Start 01/29/17 at 18:45; Stop 02/02/17 at 11:08; Status DC Enoxaparin Sodium (Lovenox 40mg Syringe) 40 mg Q12HR SQ Last administered on 21:09; Start 01/29/17 at 22:00; Stop 01/31/17 at 07:12; Status DC Alprazolam (Xanax) 0.25 mg QHS PRN PO ANXIETY / AGITATION Last administered on 02/12/17 21:20; Start 01/29/17 at 18:45 Carvedilol (Coreg) 12.5 mg BIDWMEALS PO Last administered on 01/29/17 21:51; Start 01/29/17 at 19:00; Stop 01/30/17 at 11:28; Status DC Cyclobenzaprine HCl (Flexeril) 10 mg BID PO Last administered on 02/13/17 21:44 ; Start 01/29/17 at 21:00 Fluconazole (Diflucan) 100 mg DAILY PO Last administered on 02/12/17 08:03; Start 01/30/17 at 09:00; Stop 02/12/17 at 09:25; Status DC Furosemide (Lasix) 40 mg BID92 PO ; Start 01/30/17 at 09:00; Stop 01/30/17 at 09 :00; Status DC Hydralazine HCl (Apresoline) 25 mg BID PO Last administered on 02/09/17 08:30; Start 01/29/17 at 21:00; Stop 02/11/17 at 13:26; Status DC Acetaminophen/ Hydrocodone Bitart (Lortab 5/325) 1 tab PRN Q6HRS PRN PO MILD PAIN Last administered on 02/09/17 21:52; Start 01/29/17 at 18:45; Stop 02/11/17 at 09:12; Status DC Lisinopril (Prinivil) 40 mg DAILY PO Last administered on 02/11/17 10:18; Start 01/30/17 at 09:00; Stop 02/11/17 at 13:25; Status DC Oxycodone/ Acetaminophen (Percocet 10/325) 1 tab PRN Q6HRS PRN PO MODERATE- SEVERE PAIN Last administered on 02/10/17 13:11; Start 01/29/17 at 18:45 Tramadol HCl (Ultram) 100 mg BID PO Last administered on 01/29/17 21:50; Start 01/29/17 at 21:00; Stop 01/30/17 at 11:51; Status DC Vitamin D (Vitamin D3) 5,000 unit DAILY PO Last administered on 02/14/17 08:36 ; Start 01/30/17 at 09:00 Gabapentin (Neurontin) 300 mg PRN DAILY PRN PO NERVE PAIN Last administered on 02/09/17 21:51; Start 01/29/17 at 21:00 Glimepiride (Amaryl) 4 mg BIDWMEALS PO Last administered on 02/08/17 09:10; Start 01/30/17 at 09:00; Stop 02/09/17 at 09:09; Status DC Insulin Detemir (Levemir) 40 units QHS SQ Last administered on 01/29/17 22:01 ; Start 01/29/17 at 21:00; Stop 01/30/17 at 11:51; Status DC Insulin Aspart (NovoLOG) 50 units TIDAC SQ Last administered on 01/29/17 22:00 ; Start 01/29/17 at 19:00; Stop 01/30/17 at 11:51; Status DC Non-Formulary Medication 1.2 mg DAILY SQ ; Start 01/30/17 at 09:00; Stop at 09:00; Status DC Pantoprazole Sodium (Protonix) 40 mg DAILYAC PO Last administered on 02/14/17 08:36; Start 01/30/17 at 07:30 Potassium Chloride (Klor-Con) 10 meq DAILYWBKFT PO Last administered on 08:59; Start 01/30/17 at 08:00; Stop 02/05/17 at 09:21; Status DC Insulin Aspart (NovoLOG) 0-9 UNITS TIDWMEALS SQ Last administered on 02/14/17 08:45; Start 01/30/17 at 08:00 Dextrose (Dextrose 50%-Water Syringe) 12.5 gm PRN Q15MIN PRN IV SEE COMMENTS; Start 01/29/17 at 18:45 Furosemide (Lasix) 40 mg 1X ONCE IVP Last administered on 01/29/17 21:52; Start 01/29/17 at 21:00; Stop 01/29/17 at 21:01; Status DC Furosemide (Lasix) 40 mg BID92 IVP Last administered on 01/30/17 11:01; Start 01/30/17 at 09:00; Stop 01/30/17 at 11:28; Status DC Lidocaine HCl (Xylocaine-Mpf 1% Vial) 2 ml STK-MED ONCE .ROUTE ; Start 01/29/17 at 20:37; Stop 01/29/17 at 20:38; Status DC Dextrose 250 ml @ 1,000 mls/hr 1X ONCE IV ; Start 01/30/17 at 07:45; Stop at 07:59; Status DC Glucose (Insta-Glucose) 15 gm PRN Q15MIN PRN PO LOW BLOOD SUGAR Last administered on 01/30/17 07:55; Start 01/30/17 at 08:00 Glucose (Insta-Glucose) 15 gm STK-MED ONCE .ROUTE ; Start 01/30/17 at 07:52; Stop 01/30/17 at 07:53; Status DC Lidocaine HCl (Xylocaine-Mpf 1% Vial) 2 ml STK-MED ONCE .ROUTE ; Start 01/29/17 at 21:00; Stop 01/30/17 at 09:01; Status DC Furosemide (Lasix) 40 mg DAILY IVP Last administered on 02/03/17 08:39; Start 01/31/17 at 09:00; Stop 02/03/17 at 15:50; Status DC Aspirin (Ecotrin) 81 mg [id number] PO Last administered on 02/14/17 08:36; Start 01/30/17 at 12:30 Insulin Detemir (Levemir) 25 units QHS SQ Last administered on 02/02/17 20:54 ; Start 01/30/17 at 21:00; Stop 02/03/17 at 11:09; Status DC Gabapentin (Neurontin) 400 mg BID PO Last administered on 02/14/17 08:37; Start 01/31/17 at 09:00 Gabapentin (Neurontin) 100 mg 1X ONCE PO Last administered on 01/31/17 01:56 ; Start 01/31/17 at 02:00; Stop 01/31/17 at 02:01; Status DC Enoxaparin Sodium (Lovenox 40mg Syringe) 40 mg QHS SQ Last administered on 02/03 20:32; Start 01/31/17 at 21:00; Stop 02/04/17 at 09:32; Status DC Methylprednisolone Acetate (DEPO-Medrol 40MG VIAL) 40 mg 1X ONCE IM Last administered on 02/01/17 13:30; Start 02/01/17 at 13:30; Stop 02/01/17 at 13:31 ; Status DC Lidocaine/Sodium Bicarbonate (Buffered Lidocaine 1%) 20 ml 1X ONCE IJ Last administered on 02/01/17 13:30; Start 02/01/17 at 13:30; Stop 02/01/17 at 13:31 ; Status DC Labetalol HCl (Normodyne) 20 mg PRN Q2HR PRN IVP HYPERTENSION, SEE COMMENTS Last administered on 02/01/17 23:59; Start 02/01/17 at 23:30; Stop 02/03/17 at 15:47; Status DC Insulin Aspart (NovoLOG) 10 units TIDAC SQ Last administered on 02/06/17 07:30 ; Start 02/02/17 at 11:30; Stop 02/07/17 at 13:06; Status DC Insulin Aspart (NovoLOG VIAL) 15 unit 1X ONCE SQ ; Start 02/02/17 at 08:45; Stop 02/02/17 at 08:46; Status Cancel Insulin Aspart (NovoLOG) 15 units 1X ONCE SQ Last administered on 02/02/17 08 :42; Start 02/02/17 at 08:45; Stop 02/02/17 at 08:46; Status DC Loperamide HCl (Imodium) 2 mg PRN Q15MIN PRN PO DIARRHEA Last administered on 09:43; Start 02/02/17 at 11:15; Stop 02/03/17 at 12:31; Status DC Loperamide HCl (Imodium) 2 mg PRN Q15MIN PRN PO DIARRHEA Last administered on 01:35; Start 02/02/17 at 12:45; Stop 02/04/17 at 14:00; Status DC Insulin Detemir (Levemir) 35 units QHS SQ Last administered on 02/06/17 20:58; Start 02/03/17 at 21:00; Stop 02/07/17 at 13:06; Status DC Metoprolol Tartrate (Lopressor) 12.5 mg BID PO Last administered on 02/13/17 21 :45; Start 02/03/17 at 21:00 Furosemide (Lasix) 60 mg DAILY PO Last administered on 02/04/17 08:57; Start 02/04/17 at 09:00; Stop 02/04/17 at 14:34; Status DC Heparin Sodium (Porcine) (Heparin Sq) 5,000 unit Q8HRS SQ Last administered on 02/14/17 06:45; Start 02/04/17 at 14:00 Loperamide HCl (Imodium) 2 mg TID PO Last administered on 02/07/17 20:32; Start 02/04/17 at 14:00; Stop 02/09/17 at 10:50; Status DC Magnesium Sulfate/ Dextrose 50 ml @ 25 mls/hr PRN DAILY PRN IV for Mag < 1.7 on am labs; Start 02/04/17 at 14:30; Stop 02/05/17 at 10:05; Status DC Furosemide 100 mg/ Sodium Chloride 100 ml @ 0 mls/hr CONT PRN IV SEE I/O RECORD Last administered on 02/04/17 15:59; Start 02/04/17 at 14:30; Stop at 09:27; Status DC Acetylcysteine (Mucomyst 20% Oral Solution) 1,200 mg BID PO Last administered on 02/06/17 20:49; Start 02/05/17 at 09:00; Stop 02/07/17 at 08:59; Status DC Sodium Polystyrene Sulfonate (Kayexalate) 30 gm 1X ONCE PO Last administered on 02/06/17 09:49; Start 02/06/17 at 09:30; Stop 02/06/17 at 09:31; Status DC Dextrose 10 ml 1X ONCE IV Last administered on 02/06/17 09:56; Start 02/06/17 at 09:30; Stop 02/06/17 at 09:31; Status DC Insulin Human Regular (NovoLIN R VIAL) 10 unit 1X ONCE IV Last administered on 02/06/17 09:59; Start 02/06/17 at 09:30; Stop 02/06/17 at 09:31; Status DC Heparin Sodium/ Sodium Chloride 500 ml @ As Directed STK-MED ONCE .ROUTE ; Start 02/06/17 at 10:10; Stop 02/06/17 at 10:11; Status DC Lidocaine HCl 20 ml STK-MED ONCE .ROUTE ; Start 02/06/17 at 10:10; Stop 02/06/17 at 10:11; Status DC Fentanyl Citrate (Fentanyl 2ml Vial) 100 mcg STK-MED ONCE .ROUTE ; Start at 10:39; Stop 02/06/17 at 10:40; Status DC Midazolam HCl (Versed) 2 mg STK-MED ONCE .ROUTE ; Start 02/06/17 at 10:39; Stop 02/06/17 at 10:40; Status DC Heparin Sodium/ Sodium Chloride 1,000 unit 1X ONCE IART Last administered on 11:10; Start 02/06/17 at 11:15; Stop 02/06/17 at 11:16; Status DC Midazolam HCl (Versed) 1 mg 1X ONCE IV Last administered on 02/06/17 11:11; Start 02/06/17 at 11:15; Stop 02/06/17 at 11:16; Status DC Fentanyl Citrate (Fentanyl 2ml Vial) 50 mcg 1X ONCE IV Last administered on 11:11; Start 02/06/17 at 11:15; Stop 02/06/17 at 11:16; Status DC Lidocaine HCl 20 ml 1X ONCE IJ Last administered on 02/06/17 11:10; Start 02/06 at 11:15; Stop 02/06/17 at 11:16; Status DC Sodium Chloride (Normal Saline Flush) 3 ml QSHIFT PRN IV AFTER MEDS AND BLOOD DRAWS; Start 02/06/17 at 11:15 Nitroglycerin (Nitrostat) 0.4 mg PRN Q5MIN PRN SL CHEST PAIN; Start 02/06/17 at 11:15 Iron Sucrose 200 mg/Sodium Chloride 110 ml @ 55 mls/hr 3X/WEEK IV Last administered on 02/06/17 16:30; Start 02/06/17 at 13:00; Stop 02/11/17 at 09:12; Status DC Furosemide 100 mg/ Sodium Chloride 100 ml @ 0 mls/hr CONT PRN IV SEE I/O RECORD Last administered on 02/10/17 12:59; Start 02/06/17 at 13:30; Stop at 09:12; Status DC Insulin Detemir (Levemir) 20 units QHS SQ ; Start 02/07/17 at 21:00; Stop at 09:08; Status DC Furosemide (Lasix) 20 mg 1X ONCE IVP ; Start 02/07/17 at 13:30; Stop 02/07/17 at 13:31; Status Cancel Diclofenac Sodium (Voltaren) 1 katia BID TP Last administered on 02/14/17 08:45 ; Start 02/08/17 at 13:30 Lidocaine HCl 16 ml/Sodium Bicarbonate 4 meq/ Miscellaneous 20 ml @ 20 mls/hr 1X ONCE ID ; Start 02/09/17 at 06:00; Stop 02/09/17 at 06:59; Status UNV Lidocaine HCl 10 ml 1X ONCE INJ Last administered on 02/08/17 15:44; Start 02/08/17 at 14:00; Stop 02/08/17 at 14:01; Status DC Amlodipine Besylate (Norvasc) 10 mg DAILY PO Last administered on 02/12/17 08: 10; Start 02/09/17 at 09:00 Amlodipine Besylate (Norvasc) 10 mg 1X ONCE PO Last administered on 02/08/17 15:43; Start 02/08/17 at 16:00; Stop 02/08/17 at 16:01; Status DC Insulin Detemir (Levemir) 12 units QHS SQ Last administered on 02/10/17 21:02; Start 02/09/17 at 21:00; Stop 02/11/17 at 10:15; Status DC Ceftriaxone Sodium 1 gm/ Sodium Chloride 50 ml @ 100 mls/hr Q24H IV Last administered on 02/09/17 11:41; Start 02/09/17 at 10:00; Stop 02/10/17 at 09:25; Status DC Loperamide HCl (Imodium) 2 mg PRN TID PRN PO if diarrhea recurs; Start 02/09/17 at 11:00 Lidocaine HCl (Xylocaine-Mpf 1% Vial) 2 ml STK-MED ONCE .ROUTE ; Start 02/10/17 at 06:35; Stop 02/10/17 at 06:36; Status DC Prednisone (Prednisone) 60 mg 1X ONCE PO Last administered on 02/10/17 09:53; Start 02/10/17 at 09:30; Stop 02/10/17 at 09:41; Status DC Prednisone (Prednisone) 40 mg DAILY PO Last administered on 02/12/17 08:02; Start 02/11/17 at 09:00; Stop 02/12/17 at 12:09; Status DC Colchicine (Colcrys) 1.2 mg 1X ONCE PO Last administered on 02/10/17 09:53; Start 02/10/17 at 09:30; Stop 02/10/17 at 09:41; Status DC Colchicine (Colcrys) 0.6 mg DAILY PO ; Start 02/11/17 at 09:00; Stop 02/11/17 at 09:00; Status DC Lidocaine HCl 1 ml STK-MED ONCE .ROUTE ; Start 02/11/17 at 09:38; Stop 02/11/17 at 09:39; Status DC Insulin Detemir (Levemir) 20 units QHS SQ Last administered on 02/13/17 22:41; Start 02/11/17 at 21:00 Insulin Aspart (NovoLOG) 15 units 1X ONCE SQ Last administered on 02/11/17 10: 15; Start 02/11/17 at 10:15; Stop 02/11/17 at 10:16; Status DC Insulin Aspart (NovoLOG) 8 units TIDAC SQ Last administered on 02/14/17 08:44 ; Start 02/11/17 at 11:30 Glycerin (Sani-Supp Adult) 1 supp 1X ONCE VA Last administered on 02/11/17 16: 37; Start 02/11/17 at 16:15; Stop 02/11/17 at 16:16; Status DC Prednisone (Prednisone) 20 mg DAILY PO Last administered on 02/14/17 08:37; Start 02/12/17 at 12:00 Sodium Chloride 500 ml @ 100 mls/hr 1X ONCE IV Last administered on 02/12/17 13:07; Start 02/12/17 at 12:30; Stop 02/12/17 at 17:29; Status DC Sertraline HCl (Zoloft) 25 mg QHS PO Last administered on 02/13/17 21:45; Start 02/12/17 at 21:00 Heparin Sodium (Porcine) (Heparin Sodium) 10,000 unit STK-MED ONCE .ROUTE ; Start 02/13/17 at 12:13; Stop 02/13/17 at 12:14; Status DC Lidocaine/Sodium Bicarbonate (Buffered Lidocaine 1%) 20 ml STK-MED ONCE IJ ; Start 02/13/17 at 12:13; Stop 02/13/17 at 12:14; Status DC Heparin Sodium/ Sodium Chloride 500 ml @ As Directed STK-MED ONCE .ROUTE ; Start 02/13/17 at 12:13; Stop 02/13/17 at 12:14; Status DC Heparin Sodium/ Sodium Chloride 1,000 unit 1X ONCE IART Last administered on 12:46; Start 02/13/17 at 12:45; Stop 02/13/17 at 12:46; Status DC Lidocaine/Sodium Bicarbonate (Buffered Lidocaine 1%) 3 ml 1X ONCE IJ Last administered on 02/13/17 12:46; Start 02/13/17 at 12:45; Stop 02/13/17 at 12:46; Status DC Heparin Sodium (Porcine) (Heparin Sodium) 2,500 unit 1X ONCE INT CAT Last administered on 02/13/17t 12:46; Start 02/13/17 at 12:45; Stop 02/13/17 at 12:46; Status DC Sodium Chloride 1,000 ml @ 1,000 mls/hr Q1H PRN IV hypotension; Start 02/13/17 at 16:41; Stop 02/13/17 at 22:40; Status DC Diphenhydramine HCl (Benadryl) 25 mg 1X PRN PRN IV ITCHING; Start 02/13/17 at 16 :45; Stop 02/14/17 at 16:44 Diphenhydramine HCl (Benadryl) 25 mg 1X PRN PRN IV ITCHING; Start 02/13/17 at 16 :45; Stop 02/14/17 at 16:44 Sodium Chloride (Normal Saline Flush) 10 ml 1X PRN PRN IV AP catheter pack; Start 02/13/17 at 16:45; Stop 02/14/17 at 16:44 Sodium Chloride (Normal Saline Flush) 10 ml 1X PRN PRN IV SURFACE SUPPLY BREATHING APPARATUS catheter pack; Start 02/13/17 at 16:45; Stop 02/14/17 at 16:44 Info (PHARMACY MONITORING -- do not chart) 1 each PRN DAILY PRN MC SEE COMMENTS ; Start 02/13/17 at 16:45 Sodium Chloride 1,000 ml @ 1,000 mls/hr Q1H PRN IV hypotension; Start 02/14/17 at 10:18; Stop 02/14/17 at 16:17 Sodium Chloride 1,000 ml @ 400 mls/hr Q2H30M PRN IV PATENCY; Start 02/14/17 at 10:18; Stop 02/14/17 at 22:17 Info (PHARMACY MONITORING -- do not chart) 1 each PRN DAILY PRN MC SEE COMMENTS ; Start 02/14/17 at 10:30; Status UNV Active Scripts Active Xanax (Alprazolam) 0.25 Mg Tablet 0.25 Mg PO QHS PRN Oxycodone-Acetaminophen 10-325 (Oxycodone Hcl/Acetaminophen) 1 Each Tablet 1 Tab PO PRN Q6HRS PRN Hydralazine Hcl 25 Mg Tablet 25 Mg PO BID Carvedilol 12.5 Mg Tablet 12.5 Mg PO BIDWMEALS Fluconazole 100 Mg Tablet 1 Tab PO DAILY Lasix (Furosemide) 40 Mg Tablet 40 Mg PO BID Reported Lisinopril 40 Mg Tablet 1 Tab PO DAILY Humalog (Insulin Lispro) 100 Unit/1 Ml Vial 50 Unit SQ TID Lortab 5-325 mg Tablet (Hydrocodone/Acetaminophen) 1 Each Tablet 1 Tab PO PRN Q6HRS PRN Levemir (Insulin Detemir) 100 Unit/1 Ml Vial 40 Unit SQ HS Victoza 3-Devon (Liraglutide) 0.6 Mg/0.1 Ml Pen.injctr 1.2 Mg SQ DAILY Gabapentin 300 Mg Capsule 1 Cap PO DAILY PRN Vitamin D3 (Cholecalciferol (Vitamin D3)) 5,000 Unit Tablet 1 Tab PO DAILY Glimepiride 4 Mg Tablet 1 Tab PO BID Tramadol Hcl 50 Mg Tablet 2 Tab PO BID Cyclobenzaprine Hcl 10 Mg Tablet 1 Tab PO BID Klor-Con 10 (Potassium Chloride) 10 Meq Tablet.er 1 Tab PO DAILY Omeprazole 20 Mg Capsule.dr 1 Cap PO DAILY Vitals/I & O Vital Sign - Last 24 Hours 02/13/17 02/13/17 02/13/17 02/13/17 15:00 19:30 20:00 21:45 Temp 97.4 97.5 97.4 97.5 Pulse 100 75 Resp 20 18 B/P (MAP) 133/73 (93) 126/72 (90) Pulse Ox 90 97 O2 Delivery Nasal Cannula Nasal Cannula Nasal Cannula Nasal Cannula O2 Flow Rate 2.0 2.0 2.0 2.0 02/13/17 02/13/17 02/13/17 02/14/17 21:45 22:45 23:43 03:40 Temp 97.9 97.7 97.9 97.7 Pulse 75 70 53 Resp 17 16 B/P (MAP) 126/72 117/67 (84) 107/53 (71) Pulse Ox 95 93 O2 Delivery Nasal Cannula Nasal Cannula Room Air O2 Flow Rate 2.0 2.0 02/14/17 02/14/17 02/14/17 02/14/17 07:00 08:00 09:00 09:00 Temp 97.5 97.5 Pulse 68 68 68 Resp 19 B/P (MAP) 97/57 (70) 97/57 97/57 Pulse Ox 93 O2 Delivery Room Air Nasal Cannula O2 Flow Rate 2.0 Intake and Output 02/13/17 02/13/17 02/14/17 15:00 23:00 07:00 Intake Total 200 ml 380 ml Output Total 425 ml Balance 200 ml -45 ml CHEVY REYES MD Feb 14, 2017 13:57
[2017-02-14 15:09] VITALS: BP 120/81
[2017-02-14 19:25] VITALS: BP 118/63
[2017-02-14] MEDS: oxyCODONE IR 5 MG TABLET PO PRN (21:32)
[2017-02-14] MEDS: SERTRALINE 25 MG TABLET. PO SCH (21:32)
[2017-02-14] MEDS: INSULIN DETEMIR 300 UNITS/3 ML INSULN.PEN. SQ SCH (21:37)
[2017-02-14 23:16] VITALS: BP 107/63
[2017-02-15 03:00] VITALS: BP 120/78
[2017-02-15 05:43] LABS: BASO % 0 % (0-3); EOS % 1 % (0-3); HEMATOCRIT 28.9 % (36.0-47.0); HEMOGLOBIN 9.5 g/dL (12.0-15.5); LYMPH # 1.9 x10^3/uL (1.0-4.8); LYMPH % 29 % (24-48); MEAN CORPUSCULAR HEMOGLOBIN 29 pg (25-35); MEAN CORPUSCULAR HGB CONC 33 g/dL (31-37); MEAN CORPUSCULAR VOLUME 87 fL (79-100); MONO % 8 % (0-9); NEUT % 62 % (31-73); PLATELET COUNT 176 x10^3/uL (140-400); RED BLOOD COUNT 3.33 x10^6/uL (3.50-5.40); RED CELL DISTRIBUTION WIDTH 15.4 % (11.5-14.5); WHITE BLOOD COUNT 6.6 x10^3/uL (4.0-11.0)
[2017-02-15 05:58] LABS: CALCIUM 8.5 mg/dL (8.5-10.1); CREATININE 2.8 mg/dL (0.6-1.0); GFR 16.8; POTASSIUM 4.1 mmol/L (3.5-5.1)
[2017-02-15] MEDS: HEPARIN PF for SUB-Q USE 5,000 UNIT/0.5 ML VIAL. SQ SCH ×3 (06:17→21:26)
[2017-02-15 07:15] VITALS: BP 113/59
[2017-02-15] MEDS: INSULIN ASPART 300 UNITS/3 ML INSULN.PEN SQ SCH ×6 (08:00→16:44)
[2017-02-15] MEDS: PANTOPRAZOLE 40 MG TABLET.DR. PO SCH (08:15)
[2017-02-15] MEDS: ASPIRIN ENTERIC COATED 81 MG TABLET.DR. PO SCH (08:15)
[2017-02-15] MEDS: CYCLOBENZAPRINE 10 MG TABLET. PO SCH ×2 (08:15→21:28)
[2017-02-15] MEDS: amLODIPine BESYLATE 10 MG TABLET PO SCH (08:15)
[2017-02-15] MEDS: predniSONE 20 MG TABLET PO SCH (08:16)
[2017-02-15] MEDS: GABAPENTIN 400 MG CAPSULE. PO SCH ×2 (08:17→21:26)
[2017-02-15] MEDS: METOPROLOL TART IMMED RELEASE 25 MG TABLET. PO SCH ×2 (08:17→21:31)
[2017-02-15] MEDS: CHOLECALCIFEROL (VITAMIN D3) 5,000 UNIT CAPSULE PO SCH (08:17)
[2017-02-15] MEDS: DICLOFENAC SODIUM 1% TOPICAL GEL 100GM TUBE. TP SCH ×2 (08:18→21:27)
[2017-02-15 11:00] VITALS: BP 122/72
--- NOTE | 2017-02-15 12:39 | PDOC ---
PROGRESS NOTES Chief Complaint Chief Complaint CHF exacerbation ASSESSMENT AND PLAN: 1. JOSE: oliguric. poss 2/2 diarrhea and lasix. worsening creatinine. temp HD catheter on HD, renal functions improving. 2. CHF exacerbation: echo with EF 60-65%, pA pressure 61. s/p RHC 02/06/17- normal. 3. HTN: well controlled on home meds (JOVANNA-I, norvasc) 4. Lymphedema: chronic 5. CKD: underlying; baseline creat 6. DM2: poorly controlled at home (HgbA1c 11.9), brittle control here. currently high 2/2 steroid use. cont levemir, ISS 7. Gout: acute in R knee, s/p tap. is on steroids. 8. Pain control: Oxy 5-10 PRN 9. Anemia: chronic dz: received venofer x3. continue low dose PO 10. Prophylaxis: Heparin SQ, PPI 11. Morbid obesity and Physical debility : need PT/OT 12. Depression: on SSRI History of Present Illness History of Present Illness SITTING IN CHAIR PAIN OK LIMITED MOBILITY Vitals Vitals Vital Signs Date Time Temp Pulse Resp B/P (MAP) Pulse Ox O2 Delivery O2 Flow Rate FiO2 02/15/17 11:00 97.5 54 20 122/72 (89) 96 Room Air 97.5 02/15/17 08:00 2.0 Physical Exam General: Alert, Oriented X3, Cooperative, No acute distress Heart: Regular rate, Normal S1, Normal S2, No murmurs, Gallops Lungs: Clear, Other (no wheezing) Abdomen: Normal bowel sounds, Soft, No tenderness, No hepatosplenomegaly, No masses Extremities: No clubbing, No cyanosis, No edema, Normal pulses, No tenderness/ swelling Skin: No significant lesion Labs LABS Laboratory Tests Test 02/14/17 13:30 02/14/17 16:30 02/14/17 20:52 02/15/17 05:00 Glucose (Fingerstick) 121 mg/dL (70-99) 160 mg/dL (70-99) 209 mg/dL (70-99) White Blood Count 6.6 x10^3/uL (4.0-11.0) Red Blood Count 3.33 x10^6/uL (3.50-5.40) Hemoglobin 9.5 g/dL (12.0-15.5) Hematocrit 28.9 % (36.0-47.0) Mean Corpuscular Volume 87 fL (79-100) Mean Corpuscular Hemoglobin 29 pg (25-35) Mean Corpuscular Hemoglobin Concent 33 g/dL (31-37) Red Cell Distribution Width 15.4 % (11.5-14.5) Platelet Count 176 x10^3/uL (140-400) Neutrophils (%) (Auto) 62 % (31-73) Lymphocytes (%) (Auto) 29 % (24-48) Monocytes (%) (Auto) 8 % (0-9) Eosinophils (%) (Auto) 1 % (0-3) Basophils (%) (Auto) 0 % (0-3) Neutrophils # (Auto) 4.1 x10^3uL (1.8-7.7) Lymphocytes # (Auto) 1.9 x10^3/uL (1.0-4.8) Monocytes # (Auto) 0.5 x10^3/uL (0.0-1.1) Eosinophils # (Auto) 0.1 x10^3/uL (0.0-0.7) Basophils # (Auto) 0.0 x10^3/uL (0.0-0.2) Sodium Level 140 mmol/L (136-145) Potassium Level 4.1 mmol/L (3.5-5.1) Chloride Level 104 mmol/L (98-107) Carbon Dioxide Level 31 mmol/L (21-32) Anion Gap 5 (6-14) Blood Urea Nitrogen 51 mg/dL (7-20) Creatinine 2.8 mg/dL (0.6-1.0) Estimated GFR (Cockcroft-Gault) 16.8 Glucose Level 188 mg/dL (70-99) Calcium Level 8.5 mg/dL (8.5-10.1) Test 02/15/17 07:32 02/15/17 11:38 Glucose (Fingerstick) 136 mg/dL (70-99) 120 mg/dL (70-99) Comment Review of Relevant I have reviewed the following items kai (where applicable) has been applied. Labs Laboratory Tests Test 02/13/17 16:07 02/13/17 19:15 02/13/17 22:36 02/14/17 05:00 Glucose (Fingerstick) 195 mg/dL (70-99) 180 mg/dL (70-99) 286 mg/dL (70-99) White Blood Count 5.3 x10^3/uL (4.0-11.0) Red Blood Count 3.37 x10^6/uL (3.50-5.40) Hemoglobin 9.5 g/dL (12.0-15.5) Hematocrit 29.8 % (36.0-47.0) Mean Corpuscular Volume 88 fL (79-100) Mean Corpuscular Hemoglobin 28 pg (25-35) Mean Corpuscular Hemoglobin Concent 32 g/dL (31-37) Red Cell Distribution Width 15.3 % (11.5-14.5) Platelet Count 166 x10^3/uL (140-400) Neutrophils (%) (Auto) 79 % (31-73) Lymphocytes (%) (Auto) 16 % (24-48) Monocytes (%) (Auto) 5 % (0-9) Eosinophils (%) (Auto) 0 % (0-3) Basophils (%) (Auto) 0 % (0-3) Neutrophils # (Auto) 4.2 x10^3uL (1.8-7.7) Lymphocytes # (Auto) 0.9 x10^3/uL (1.0-4.8) Monocytes # (Auto) 0.3 x10^3/uL (0.0-1.1) Eosinophils # (Auto) 0.0 x10^3/uL (0.0-0.7) Basophils # (Auto) 0.0 x10^3/uL (0.0-0.2) Sodium Level 140 mmol/L (136-145) Potassium Level 4.8 mmol/L (3.5-5.1) Chloride Level 103 mmol/L (98-107) Carbon Dioxide Level 28 mmol/L (21-32) Anion Gap 9 (6-14) Blood Urea Nitrogen 70 mg/dL (7-20) Creatinine 3.6 mg/dL (0.6-1.0) Estimated GFR (Cockcroft-Gault) 12.6 Glucose Level 224 mg/dL (70-99) Calcium Level 8.1 mg/dL (8.5-10.1) Test 02/14/17 07:57 02/14/17 13:30 02/14/17 16:30 02/14/17 20:52 Glucose (Fingerstick) 174 mg/dL (70-99) 121 mg/dL (70-99) 160 mg/dL (70-99) 209 mg/dL (70-99) Test 02/15/17 05:00 02/15/17 07:32 02/15/17 11:38 White Blood Count 6.6 x10^3/uL (4.0-11.0) Red Blood Count 3.33 x10^6/uL (3.50-5.40) Hemoglobin 9.5 g/dL (12.0-15.5) Hematocrit 28.9 % (36.0-47.0) Mean Corpuscular Volume 87 fL (79-100) Mean Corpuscular Hemoglobin 29 pg (25-35) Mean Corpuscular Hemoglobin Concent 33 g/dL (31-37) Red Cell Distribution Width 15.4 % (11.5-14.5) Platelet Count 176 x10^3/uL (140-400) Neutrophils (%) (Auto) 62 % (31-73) Lymphocytes (%) (Auto) 29 % (24-48) Monocytes (%) (Auto) 8 % (0-9) Eosinophils (%) (Auto) 1 % (0-3) Basophils (%) (Auto) 0 % (0-3) Neutrophils # (Auto) 4.1 x10^3uL (1.8-7.7) Lymphocytes # (Auto) 1.9 x10^3/uL (1.0-4.8) Monocytes # (Auto) 0.5 x10^3/uL (0.0-1.1) Eosinophils # (Auto) 0.1 x10^3/uL (0.0-0.7) Basophils # (Auto) 0.0 x10^3/uL (0.0-0.2) Sodium Level 140 mmol/L (136-145) Potassium Level 4.1 mmol/L (3.5-5.1) Chloride Level 104 mmol/L (98-107) Carbon Dioxide Level 31 mmol/L (21-32) Anion Gap 5 (6-14) Blood Urea Nitrogen 51 mg/dL (7-20) Creatinine 2.8 mg/dL (0.6-1.0) Estimated GFR (Cockcroft-Gault) 16.8 Glucose Level 188 mg/dL (70-99) Calcium Level 8.5 mg/dL (8.5-10.1) Glucose (Fingerstick) 136 mg/dL (70-99) 120 mg/dL (70-99) Laboratory Tests Test 02/14/17 13:30 02/14/17 16:30 02/14/17 20:52 02/15/17 05:00 Glucose (Fingerstick) 121 mg/dL (70-99) 160 mg/dL (70-99) 209 mg/dL (70-99) White Blood Count 6.6 x10^3/uL (4.0-11.0) Red Blood Count 3.33 x10^6/uL (3.50-5.40) Hemoglobin 9.5 g/dL (12.0-15.5) Hematocrit 28.9 % (36.0-47.0) Mean Corpuscular Volume 87 fL (79-100) Mean Corpuscular Hemoglobin 29 pg (25-35) Mean Corpuscular Hemoglobin Concent 33 g/dL (31-37) Red Cell Distribution Width 15.4 % (11.5-14.5) Platelet Count 176 x10^3/uL (140-400) Neutrophils (%) (Auto) 62 % (31-73) Lymphocytes (%) (Auto) 29 % (24-48) Monocytes (%) (Auto) 8 % (0-9) Eosinophils (%) (Auto) 1 % (0-3) Basophils (%) (Auto) 0 % (0-3) Neutrophils # (Auto) 4.1 x10^3uL (1.8-7.7) Lymphocytes # (Auto) 1.9 x10^3/uL (1.0-4.8) Monocytes # (Auto) 0.5 x10^3/uL (0.0-1.1) Eosinophils # (Auto) 0.1 x10^3/uL (0.0-0.7) Basophils # (Auto) 0.0 x10^3/uL (0.0-0.2) Sodium Level 140 mmol/L (136-145) Potassium Level 4.1 mmol/L (3.5-5.1) Chloride Level 104 mmol/L (98-107) Carbon Dioxide Level 31 mmol/L (21-32) Anion Gap 5 (6-14) Blood Urea Nitrogen 51 mg/dL (7-20) Creatinine 2.8 mg/dL (0.6-1.0) Estimated GFR (Cockcroft-Gault) 16.8 Glucose Level 188 mg/dL (70-99) Calcium Level 8.5 mg/dL (8.5-10.1) Test 02/15/17 07:32 02/15/17 11:38 Glucose (Fingerstick) 136 mg/dL (70-99) 120 mg/dL (70-99) Microbiology 02/08/17 Gram Stain - Final, Complete Medications Current Medications Zolpidem Tartrate (Ambien) 5 mg PRN QHS PRN PO INSOMNIA, MAY REPEAT IN 1HR Last administered on 02/09/17 21:49; Start 01/29/17 at 18:45 Oxycodone HCl (Roxicodone) 5 mg PRN Q3HRS PRN PO BREAKTHROUGH PAIN Last administered on 02/14/17 21:32; Start 01/29/17 at 18:45 Acetaminophen (Tylenol) 650 mg PRN Q6HRS PRN PO Headaches, Temp > 101.5F Last administered on 02/08/17 21:24; Start 01/29/17 at 18:45 Ibuprofen (Motrin) 400 mg PRN Q6HRS PRN PO MILD PAIN; Start 01/29/17 at 18:45; Stop 02/05/17 at 09:24; Status DC Docusate Sodium (Colace) 100 mg BID PO Last administered on 02/01/17 08:42; Start 01/29/17 at 21:00; Stop 02/02/17 at 11:08; Status DC Magnesium Hydroxide (Milk Of Magnesia) 2,400 mg PRN Q12HR PRN PO CONSTIPATION; Start 01/29/17 at 18:45 Lactulose 20 gm PRN Q12HR PRN PO CONSTIPATION; Start 01/29/17 at 18:45; Stop at 09:12; Status DC Bisacodyl (Dulcolax Supp) 10 mg PRN DAILY PRN [place] CONSTIPATION; Start 01/29/17 at 18:45; Stop 02/02/17 at 11:08; Status DC Enoxaparin Sodium (Lovenox 40mg Syringe) 40 mg Q12HR SQ Last administered on 21:09; Start 01/29/17 at 22:00; Stop 01/31/17 at 07:12; Status DC Alprazolam (Xanax) 0.25 mg QHS PRN PO ANXIETY / AGITATION Last administered on 02/12/17 21:20; Start 01/29/17 at 18:45 Carvedilol (Coreg) 12.5 mg BIDWMEALS PO Last administered on 01/29/17 21:51; Start 01/29/17 at 19:00; Stop 01/30/17 at 11:28; Status DC Cyclobenzaprine HCl (Flexeril) 10 mg BID PO Last administered on 02/15/17 08: 15; Start 01/29/17 at 21:00 Fluconazole (Diflucan) 100 mg DAILY PO Last administered on 02/12/17 08:03; Start 01/30/17 at 09:00; Stop 02/12/17 at 09:25; Status DC Furosemide (Lasix) 40 mg BID92 PO ; Start 01/30/17 at 09:00; Stop 01/30/17 at 09 :00; Status DC Hydralazine HCl (Apresoline) 25 mg BID PO Last administered on 02/09/17 08:30; Start 01/29/17 at 21:00; Stop 02/11/17 at 13:26; Status DC Acetaminophen/ Hydrocodone Bitart (Lortab 5/325) 1 tab PRN Q6HRS PRN PO MILD PAIN Last administered on 02/09/17 21:52; Start 01/29/17 at 18:45; Stop 02/11/17 at 09:12; Status DC Lisinopril (Prinivil) 40 mg DAILY PO Last administered on 02/11/17 10:18; Start 01/30/17 at 09:00; Stop 02/11/17 at 13:25; Status DC Oxycodone/ Acetaminophen (Percocet 10/325) 1 tab PRN Q6HRS PRN PO MODERATE- SEVERE PAIN Last administered on 02/10/17 13:11; Start 01/29/17 at 18:45 Tramadol HCl (Ultram) 100 mg BID PO Last administered on 01/29/17 21:50; Start 01/29/17 at 21:00; Stop 01/30/17 at 11:51; Status DC Vitamin D (Vitamin D3) 5,000 unit DAILY PO Last administered on 02/15/17 08:17 ; Start 01/30/17 at 09:00 Gabapentin (Neurontin) 300 mg PRN DAILY PRN PO NERVE PAIN Last administered on 02/09/17 21:51; Start 01/29/17 at 21:00 Glimepiride (Amaryl) 4 mg BIDWMEALS PO Last administered on 02/08/17 09:10; Start 01/30/17 at 09:00; Stop 02/09/17 at 09:09; Status DC Insulin Detemir (Levemir) 40 units QHS SQ Last administered on 01/29/17 22:01 ; Start 01/29/17 at 21:00; Stop 01/30/17 at 11:51; Status DC Insulin Aspart (NovoLOG) 50 units TIDAC SQ Last administered on 01/29/17 22:00 ; Start 01/29/17 at 19:00; Stop 01/30/17 at 11:51; Status DC Non-Formulary Medication 1.2 mg DAILY SQ ; Start 01/30/17 at 09:00; Stop at 09:00; Status DC Pantoprazole Sodium (Protonix) 40 mg DAILYAC PO Last administered on 02/15/17 08:15; Start 01/30/17 at 07:30 Potassium Chloride (Klor-Con) 10 meq DAILYWBKFT PO Last administered on 08:59; Start 01/30/17 at 08:00; Stop 02/05/17 at 09:21; Status DC Insulin Aspart (NovoLOG) 0-9 UNITS TIDWMEALS SQ Last administered on 02/14/17 16:34; Start 01/30/17 at 08:00 Dextrose (Dextrose 50%-Water Syringe) 12.5 gm PRN Q15MIN PRN IV SEE COMMENTS; Start 01/29/17 at 18:45 Furosemide (Lasix) 40 mg 1X ONCE IVP Last administered on 01/29/17 21:52; Start 01/29/17 at 21:00; Stop 01/29/17 at 21:01; Status DC Furosemide (Lasix) 40 mg BID92 IVP Last administered on 01/30/17 11:01; Start 01/30/17 at 09:00; Stop 01/30/17 at 11:28; Status DC Lidocaine HCl (Xylocaine-Mpf 1% Vial) 2 ml STK-MED ONCE .ROUTE ; Start 01/29/17 at 20:37; Stop 01/29/17 at 20:38; Status DC Dextrose 250 ml @ 1,000 mls/hr 1X ONCE IV ; Start 01/30/17 at 07:45; Stop at 07:59; Status DC Glucose (Insta-Glucose) 15 gm PRN Q15MIN PRN PO LOW BLOOD SUGAR Last administered on 01/30/17 07:55; Start 01/30/17 at 08:00 Glucose (Insta-Glucose) 15 gm STK-MED ONCE .ROUTE ; Start 01/30/17 at 07:52; Stop 01/30/17 at 07:53; Status DC Lidocaine HCl (Xylocaine-Mpf 1% Vial) 2 ml STK-MED ONCE .ROUTE ; Start 01/29/17 at 21:00; Stop 01/30/17 at 09:01; Status DC Furosemide (Lasix) 40 mg DAILY IVP Last administered on 02/03/17 08:39; Start 01/31/17 at 09:00; Stop 02/03/17 at 15:50; Status DC Aspirin (Ecotrin) 81 mg DAILYWBKFT PO Last administered on 02/15/17 08:15; Start 01/30/17 at 12:30 Insulin Detemir (Levemir) 25 units QHS SQ Last administered on 02/02/17 20:54 ; Start 01/30/17 at 21:00; Stop 02/03/17 at 11:09; Status DC Gabapentin (Neurontin) 400 mg BID PO Last administered on 02/15/17 08:17; Start 01/31/17 at 09:00 Gabapentin (Neurontin) 100 mg 1X ONCE PO Last administered on 01/31/17 01:56 ; Start 01/31/17 at 02:00; Stop 01/31/17 at 02:01; Status DC Enoxaparin Sodium (Lovenox 40mg Syringe) 40 mg QHS SQ Last administered on 02/03 20:32; Start 01/31/17 at 21:00; Stop 02/04/17 at 09:32; Status DC Methylprednisolone Acetate (DEPO-Medrol 40MG VIAL) 40 mg 1X ONCE IM Last administered on 02/01/17 13:30; Start 02/01/17 at 13:30; Stop 02/01/17 at 13:31 ; Status DC Lidocaine/Sodium Bicarbonate (Buffered Lidocaine 1%) 20 ml 1X ONCE IJ Last administered on 02/01/17 13:30; Start 02/01/17 at 13:30; Stop 02/01/17 at 13:31 ; Status DC Labetalol HCl (Normodyne) 20 mg PRN Q2HR PRN IVP HYPERTENSION, SEE COMMENTS Last administered on 02/01/17 23:59; Start 02/01/17 at 23:30; Stop 02/03/17 at 15:47; Status DC Insulin Aspart (NovoLOG) 10 units TIDAC SQ Last administered on 02/06/17 07:30 ; Start 02/02/17 at 11:30; Stop 02/07/17 at 13:06; Status DC Insulin Aspart (NovoLOG VIAL) 15 unit 1X ONCE SQ ; Start 02/02/17 at 08:45; Stop 02/02/17 at 08:46; Status Cancel Insulin Aspart (NovoLOG) 15 units 1X ONCE SQ Last administered on 02/02/17 08 :42; Start 02/02/17 at 08:45; Stop 02/02/17 at 08:46; Status DC Loperamide HCl (Imodium) 2 mg PRN Q15MIN PRN PO DIARRHEA Last administered on 09:43; Start 02/02/17 at 11:15; Stop 02/03/17 at 12:31; Status DC Loperamide HCl (Imodium) 2 mg PRN Q15MIN PRN PO DIARRHEA Last administered on 01:35; Start 02/02/17 at 12:45; Stop 02/04/17 at 14:00; Status DC Insulin Detemir (Levemir) 35 units QHS SQ Last administered on 02/06/17 20:58; Start 02/03/17 at 21:00; Stop 02/07/17 at 13:06; Status DC Metoprolol Tartrate (Lopressor) 12.5 mg BID PO Last administered on 02/15/17 08:17; Start 02/03/17 at 21:00 Furosemide (Lasix) 60 mg DAILY PO Last administered on 02/04/17 08:57; Start 02/04/17 at 09:00; Stop 02/04/17 at 14:34; Status DC Heparin Sodium (Porcine) (Heparin Sq) 5,000 unit Q8HRS SQ Last administered on 02/15/17 06:17; Start 02/04/17 at 14:00 Loperamide HCl (Imodium) 2 mg TID PO Last administered on 02/07/17 20:32; Start 02/04/17 at 14:00; Stop 02/09/17 at 10:50; Status DC Magnesium Sulfate/ Dextrose 50 ml @ 25 mls/hr PRN DAILY PRN IV for Mag < 1.7 on am labs; Start 02/04/17 at 14:30; Stop 02/05/17 at 10:05; Status DC Furosemide 100 mg/ Sodium Chloride 100 ml @ 0 mls/hr CONT PRN IV SEE I/O RECORD Last administered on 02/04/17 15:59; Start 02/04/17 at 14:30; Stop at 09:27; Status DC Acetylcysteine (Mucomyst 20% Oral Solution) 1,200 mg BID PO Last administered on 02/06/17 20:49; Start 02/05/17 at 09:00; Stop 02/07/17 at 08:59; Status DC Sodium Polystyrene Sulfonate (Kayexalate) 30 gm 1X ONCE PO Last administered on 02/06/17 09:49; Start 02/06/17 at 09:30; Stop 02/06/17 at 09:31; Status DC Dextrose 10 ml 1X ONCE IV Last administered on 02/06/17 09:56; Start 02/06/17 at 09:30; Stop 02/06/17 at 09:31; Status DC Insulin Human Regular (NovoLIN R VIAL) 10 unit 1X ONCE IV Last administered on 02/06/17 09:59; Start 02/06/17 at 09:30; Stop 02/06/17 at 09:31; Status DC Heparin Sodium/ Sodium Chloride 500 ml @ As Directed STK-MED ONCE .ROUTE ; Start 02/06/17 at 10:10; Stop 02/06/17 at 10:11; Status DC Lidocaine HCl 20 ml STK-MED ONCE .ROUTE ; Start 02/06/17 at 10:10; Stop 02/06/17 at 10:11; Status DC Fentanyl Citrate (Fentanyl 2ml Vial) 100 mcg STK-MED ONCE .ROUTE ; Start at 10:39; Stop 02/06/17 at 10:40; Status DC Midazolam HCl (Versed) 2 mg STK-MED ONCE .ROUTE ; Start 02/06/17 at 10:39; Stop 02/06/17 at 10:40; Status DC Heparin Sodium/ Sodium Chloride 1,000 unit 1X ONCE IART Last administered on 11:10; Start 02/06/17 at 11:15; Stop 02/06/17 at 11:16; Status DC Midazolam HCl (Versed) 1 mg 1X ONCE IV Last administered on 02/06/17 11:11; Start 02/06/17 at 11:15; Stop 02/06/17 at 11:16; Status DC Fentanyl Citrate (Fentanyl 2ml Vial) 50 mcg 1X ONCE IV Last administered on 11:11; Start 02/06/17 at 11:15; Stop 02/06/17 at 11:16; Status DC Lidocaine HCl 20 ml 1X ONCE IJ Last administered on 02/06/17 11:10; Start 02/06 at 11:15; Stop 02/06/17 at 11:16; Status DC Sodium Chloride (Normal Saline Flush) 3 ml QSHIFT PRN IV AFTER MEDS AND BLOOD DRAWS; Start 02/06/17 at 11:15; Status Cancel Nitroglycerin (Nitrostat) 0.4 mg PRN Q5MIN PRN SL CHEST PAIN; Start 02/06/17 at 11:15 Iron Sucrose 200 mg/Sodium Chloride 110 ml @ 55 mls/hr 3X/WEEK IV Last administered on 02/06/17 16:30; Start 02/06/17 at 13:00; Stop 02/11/17 at 09:12; Status DC Furosemide 100 mg/ Sodium Chloride 100 ml @ 0 mls/hr CONT PRN IV SEE I/O RECORD Last administered on 02/10/17 12:59; Start 02/06/17 at 13:30; Stop at 09:12; Status DC Insulin Detemir (Levemir) 20 units QHS SQ ; Start 02/07/17 at 21:00; Stop at 09:08; Status DC Furosemide (Lasix) 20 mg 1X ONCE IVP ; Start 02/07/17 at 13:30; Stop 02/07/17 at 13:31; Status Cancel Diclofenac Sodium (Voltaren) 1 katia BID TP Last administered on 02/15/17 08:18 ; Start 02/08/17 at 13:30 Lidocaine HCl 16 ml/Sodium Bicarbonate 4 meq/ Miscellaneous 20 ml @ 20 mls/hr 1X ONCE ID ; Start 02/09/17 at 06:00; Stop 02/09/17 at 06:59; Status UNV Lidocaine HCl 10 ml 1X ONCE INJ Last administered on 02/08/17 15:44; Start 02/08/17 at 14:00; Stop 02/08/17 at 14:01; Status DC Amlodipine Besylate (Norvasc) 10 mg DAILY PO Last administered on 02/15/17 08: 15; Start 02/09/17 at 09:00 Amlodipine Besylate (Norvasc) 10 mg 1X ONCE PO Last administered on 02/08/17 15:43; Start 02/08/17 at 16:00; Stop 02/08/17 at 16:01; Status DC Insulin Detemir (Levemir) 12 units QHS SQ Last administered on 02/10/17 21:02; Start 02/09/17 at 21:00; Stop 02/11/17 at 10:15; Status DC Ceftriaxone Sodium 1 gm/ Sodium Chloride 50 ml @ 100 mls/hr Q24H IV Last administered on 02/09/17 11:41; Start 02/09/17 at 10:00; Stop 02/10/17 at 09:25; Status DC Loperamide HCl (Imodium) 2 mg PRN TID PRN PO if diarrhea recurs; Start 02/09/17 at 11:00 Lidocaine HCl (Xylocaine-Mpf 1% Vial) 2 ml STK-MED ONCE .ROUTE ; Start 02/10/17 at 06:35; Stop 02/10/17 at 06:36; Status DC Prednisone (Prednisone) 60 mg 1X ONCE PO Last administered on 02/10/17 09:53; Start 02/10/17 at 09:30; Stop 02/10/17 at 09:41; Status DC Prednisone (Prednisone) 40 mg DAILY PO Last administered on 02/12/17 08:02; Start 02/11/17 at 09:00; Stop 02/12/17 at 12:09; Status DC Colchicine (Colcrys) 1.2 mg 1X ONCE PO Last administered on 02/10/17 09:53; Start 02/10/17 at 09:30; Stop 02/10/17 at 09:41; Status DC Colchicine (Colcrys) 0.6 mg DAILY PO ; Start 02/11/17 at 09:00; Stop 02/11/17 at 09:00; Status DC Lidocaine HCl 1 ml STK-MED ONCE .ROUTE ; Start 02/11/17 at 09:38; Stop 02/11/17 at 09:39; Status DC Insulin Detemir (Levemir) 20 units QHS SQ Last administered on 02/14/17 21:37 ; Start 02/11/17 at 21:00 Insulin Aspart (NovoLOG) 15 units 1X ONCE SQ Last administered on 02/11/17 10: 15; Start 02/11/17 at 10:15; Stop 02/11/17 at 10:16; Status DC Insulin Aspart (NovoLOG) 8 units TIDAC SQ Last administered on 02/15/17 12:21 ; Start 02/11/17 at 11:30 Glycerin (Sani-Supp Adult) 1 supp 1X ONCE [place] Last administered on 02/11/17 16: 37; Start 02/11/17 at 16:15; Stop 02/11/17 at 16:16; Status DC Prednisone (Prednisone) 20 mg DAILY PO Last administered on 02/15/17 08:16; Start 02/12/17 at 12:00 Sodium Chloride 500 ml @ 100 mls/hr 1X ONCE IV Last administered on 02/12/17 13:07; Start 02/12/17 at 12:30; Stop 02/12/17 at 17:29; Status DC Sertraline HCl (Zoloft) 25 mg QHS PO Last administered on 02/14/17 21:32; Start 02/12/17 at 21:00 Heparin Sodium (Porcine) (Heparin Sodium) 10,000 unit STK-MED ONCE .ROUTE ; Start 02/13/17 at 12:13; Stop 02/13/17 at 12:14; Status DC Lidocaine/Sodium Bicarbonate (Buffered Lidocaine 1%) 20 ml STK-MED ONCE IJ ; Start 02/13/17 at 12:13; Stop 02/13/17 at 12:14; Status DC Heparin Sodium/ Sodium Chloride 500 ml @ As Directed STK-MED ONCE .ROUTE ; Start 02/13/17 at 12:13; Stop 02/13/17 at 12:14; Status DC Heparin Sodium/ Sodium Chloride 1,000 unit 1X ONCE IART Last administered on 12:46; Start 02/13/17 at 12:45; Stop 02/13/17 at 12:46; Status DC Lidocaine/Sodium Bicarbonate (Buffered Lidocaine 1%) 3 ml 1X ONCE IJ Last administered on 02/13/17 12:46; Start 02/13/17 at 12:45; Stop 02/13/17 at 12:46; Status DC Heparin Sodium (Porcine) (Heparin Sodium) 2,500 unit 1X ONCE INT CAT Last administered on 02/13/17 12:46; Start 02/13/17 at 12:45; Stop 02/13/17 at 12:46; Status DC Sodium Chloride 1,000 ml @ 1,000 mls/hr Q1H PRN IV hypotension; Start 02/13/17 at 16:41; Stop 02/13/17 at 22:40; Status DC Diphenhydramine HCl (Benadryl) 25 mg 1X PRN PRN IV ITCHING; Start 02/13/17 at 16 :45; Stop 02/14/17 at 16:44; Status DC Diphenhydramine HCl (Benadryl) 25 mg 1X PRN PRN IV ITCHING; Start 02/13/17 at 16 :45; Stop 02/14/17 at 16:44; Status DC Sodium Chloride (Normal Saline Flush) 10 ml 1X PRN PRN IV AP catheter pack; Start 02/13/17 at 16:45; Stop 02/14/17 at 16:44; Status DC Sodium Chloride (Normal Saline Flush) 10 ml 1X PRN PRN IV PCU RN catheter pack; Start 02/13/17 at 16:45; Stop 02/14/17 at 16:44; Status DC Info (PHARMACY MONITORING -- do not chart) 1 each PRN DAILY PRN MC SEE COMMENTS ; Start 02/13/17 at 16:45 Sodium Chloride 1,000 ml @ 1,000 mls/hr Q1H PRN IV hypotension; Start 02/14/17 at 10:18; Stop 02/14/17 at 16:17; Status DC Sodium Chloride 1,000 ml @ 400 mls/hr Q2H30M PRN IV PATENCY; Start 02/14/17 at 10:18; Stop 02/14/17 at 22:17; Status DC Info (PHARMACY MONITORING -- do not chart) 1 each PRN DAILY PRN MC SEE COMMENTS ; Start 02/14/17 at 10:30; Status UNV Active Scripts Active Xanax (Alprazolam) 0.25 Mg Tablet 0.25 Mg PO QHS PRN Oxycodone-Acetaminophen 10-325 (Oxycodone Hcl/Acetaminophen) 1 Each Tablet 1 Tab PO PRN Q6HRS PRN Hydralazine Hcl 25 Mg Tablet 25 Mg PO BID Carvedilol 12.5 Mg Tablet 12.5 Mg PO BIDWMEALS Fluconazole 100 Mg Tablet 1 Tab PO DAILY Lasix (Furosemide) 40 Mg Tablet 40 Mg PO BID Reported Lisinopril 40 Mg Tablet 1 Tab PO DAILY Humalog (Insulin Lispro) 100 Unit/1 Ml Vial 50 Unit SQ TID Lortab 5-325 mg Tablet (Hydrocodone/Acetaminophen) 1 Each Tablet 1 Tab PO PRN Q6HRS PRN Levemir (Insulin Detemir) 100 Unit/1 Ml Vial 40 Unit SQ HS Victoza 3-Devon (Liraglutide) 0.6 Mg/0.1 Ml Pen.injctr 1.2 Mg SQ DAILY Gabapentin 300 Mg Capsule 1 Cap PO DAILY PRN Vitamin D3 (Cholecalciferol (Vitamin D3)) 5,000 Unit Tablet 1 Tab PO DAILY Glimepiride 4 Mg Tablet 1 Tab PO BID Tramadol Hcl 50 Mg Tablet 2 Tab PO BID Cyclobenzaprine Hcl 10 Mg Tablet 1 Tab PO BID Klor-Con 10 (Potassium Chloride) 10 Meq Tablet.er 1 Tab PO DAILY Omeprazole 20 Mg Capsule.dr 1 Cap PO DAILY Vitals/I & O Vital Sign - Last 24 Hours 02/14/17 02/14/17 02/14/17 02/14/17 15:09 19:25 20:15 21:32 Temp 97.5 98.0 97.5 98.0 Pulse 66 75 Resp 18 17 B/P (MAP) 120/81 (94) 118/63 (81) Pulse Ox 92 93 O2 Delivery Room Air Room Air Room Air Room Air 02/14/17 02/14/17 02/14/17 02/15/17 21:33 22:32 23:16 03:00 Temp 98.1 97.4 98.1 97.4 Pulse 75 64 52 Resp 16 20 B/P (MAP) 118/63 107/63 (78) 120/78 (92) Pulse Ox 94 90 O2 Delivery Room Air Room Air Room Air 02/15/17 02/15/17 02/15/17 02/15/17 07:15 08:00 08:15 08:17 Temp 97.7 97.7 Pulse 57 57 57 Resp 20 B/P (MAP) 113/59 (77) 113/59 113/59 Pulse Ox 94 O2 Delivery Nasal Cannula Room Air O2 Flow Rate 2.0 2.0 02/15/17 11:00 Temp 97.5 97.5 Pulse 54 Resp 20 B/P (MAP) 122/72 (89) Pulse Ox 96 O2 Delivery Room Air Intake and Output 02/14/17 02/14/17 02/15/17 15:00 23:00 07:00 Intake Total 200 ml 50 ml Output Total 125 ml 300 ml Balance 75 ml -250 ml SUKHJINDER KAPLAN MD Feb 15, 2017 12:39
[2017-02-15 15:00] VITALS: BP 121/61
[2017-02-15 19:45] VITALS: BP 120/60
[2017-02-15] MEDS: SERTRALINE 25 MG TABLET. PO SCH (21:27)
[2017-02-15] MEDS: INSULIN DETEMIR 300 UNITS/3 ML INSULN.PEN. SQ SCH (21:27)
[2017-02-15] MEDS: oxyCODONE IR 5 MG TABLET PO PRN (21:35)
[2017-02-15] MEDS: LOPERAMIDE 2 MG CAPSULE PO PRN (21:43)
[2017-02-15 22:50] VITALS: BP 111/55
--- NOTE | 2017-02-15 23:31 | PDOC ---
Provider Note Provider Note RENAL F/U : SID S : No active CP or SOA Much better today. Sitting up. O : VSS Afebrile. Neck : Supple Lungs : Non labored. CVS : RRR Abd : Benign in appearance, without distention. Ext : Trace edema Neuro : Awake. Labs reviewed. A/P : ARF/ATN EDEMA CKD III CHF. Labs much better. Last HD yesterday. Re-eval for further RX in am. UOP improved.. Supportive care. CPM. ALEXANDRA LAU MD Feb 15, 2017 23:31
[2017-02-16 03:40] VITALS: BP 126/64
[2017-02-16 04:26] LABS: BASO % 0 % (0-3); EOS % 1 % (0-3); HEMATOCRIT 28.8 % (36.0-47.0); HEMOGLOBIN 9.4 g/dL (12.0-15.5); LYMPH % 26 % (24-48); MEAN CORPUSCULAR HEMOGLOBIN 29 pg (25-35); MEAN CORPUSCULAR HGB CONC 33 g/dL (31-37); MEAN CORPUSCULAR VOLUME 87 fL (79-100); MONO % 7 % (0-9); NEUT % 66 % (31-73); PLATELET COUNT 180 x10^3/uL (140-400); RED BLOOD COUNT 3.31 x10^6/uL (3.50-5.40); RED CELL DISTRIBUTION WIDTH 15.1 % (11.5-14.5); WHITE BLOOD COUNT 7.6 x10^3/uL (4.0-11.0)
[2017-02-16 04:51] LABS: CALCIUM 8.4 mg/dL (8.5-10.1); CREATININE 3.2 mg/dL (0.6-1.0); GFR 14.4; POTASSIUM 4.6 mmol/L (3.5-5.1)
[2017-02-16 07:00] VITALS: BP 103/70
[2017-02-16] MEDS: PANTOPRAZOLE 40 MG TABLET.DR. PO SCH (07:44)
[2017-02-16] MEDS: HEPARIN PF for SUB-Q USE 5,000 UNIT/0.5 ML VIAL. SQ SCH ×3 (07:44→21:30)
[2017-02-16] MEDS: INSULIN ASPART 300 UNITS/3 ML INSULN.PEN SQ SCH ×6 (08:00→18:42)
[2017-02-16] MEDS: ASPIRIN ENTERIC COATED 81 MG TABLET.DR. PO SCH (08:35)
[2017-02-16] MEDS: oxyCODONE IR 5 MG TABLET PO PRN ×2 (08:35→19:51)
[2017-02-16] MEDS: CHOLECALCIFEROL (VITAMIN D3) 5,000 UNIT CAPSULE PO SCH (08:35)
[2017-02-16] MEDS: GABAPENTIN 400 MG CAPSULE. PO SCH ×2 (08:37→21:31)
[2017-02-16] MEDS: LOPERAMIDE 2 MG CAPSULE PO PRN (08:37)
[2017-02-16] MEDS: amLODIPine BESYLATE 10 MG TABLET PO SCH (08:37)
[2017-02-16] MEDS: CYCLOBENZAPRINE 10 MG TABLET. PO SCH ×2 (08:37→21:31)
[2017-02-16] MEDS: predniSONE 20 MG TABLET PO SCH (08:38)
[2017-02-16] MEDS: METOPROLOL TART IMMED RELEASE 25 MG TABLET. PO SCH ×2 (08:38→21:32)
[2017-02-16] MEDS: DICLOFENAC SODIUM 1% TOPICAL GEL 100GM TUBE. TP SCH ×2 (08:41→21:32)
--- NOTE | 2017-02-16 09:02 | PDOC ---
Subjective: Subjective: Loose stool last night but doing okay. Objective: Objective: Per RN - received report of loose foul-smelling stool overnight, received Imodium. Vital Signs: Vital Signs Date Time Temp Pulse Resp B/P (MAP) Pulse Ox O2 Delivery O2 Flow Rate FiO2 02/16/17 08:37 60 103/70 02/16/17 08:35 94 Room Air 02/16/17 07:00 98.3 18 98.3 02/15/17 08:00 2.0 Labs: Laboratory Tests Test 02/15/17 11:38 02/15/17 16:36 02/15/17 21:04 02/16/17 04:05 Glucose (Fingerstick) 120 mg/dL 193 mg/dL 161 mg/dL White Blood Count 7.6 x10^3/uL Red Blood Count 3.31 x10^6/uL Hemoglobin 9.4 g/dL Hematocrit 28.8 % Mean Corpuscular Volume 87 fL Mean Corpuscular Hemoglobin 29 pg Mean Corpuscular Hemoglobin Concent 33 g/dL Red Cell Distribution Width 15.1 % Platelet Count 180 x10^3/uL Neutrophils (%) (Auto) 66 % Lymphocytes (%) (Auto) 26 % Monocytes (%) (Auto) 7 % Eosinophils (%) (Auto) 1 % Basophils (%) (Auto) 0 % Neutrophils # (Auto) 5.0 x10^3uL Lymphocytes # (Auto) 2.0 x10^3/uL Monocytes # (Auto) 0.5 x10^3/uL Eosinophils # (Auto) 0.1 x10^3/uL Basophils # (Auto) 0.0 x10^3/uL Sodium Level 142 mmol/L Potassium Level 4.6 mmol/L Chloride Level 104 mmol/L Carbon Dioxide Level 30 mmol/L Anion Gap 8 Blood Urea Nitrogen 62 mg/dL Creatinine 3.2 mg/dL Estimated GFR (Cockcroft-Gault) 14.4 Glucose Level 179 mg/dL Calcium Level 8.4 mg/dL PE: GEN: NAD LUNGS: clear HEART: RRR ABD: obese, BS+, S/NT NEURO/PSYCH: A & O 3 A/P: CHF, CKD -now on HD Anemia -Hgb stable on IV iron and PO PPI, last EGD/colon 2014 Diarrhea -C Diff neg 01/31 -- Continue Imodium TID PRN. FEDERICO-BRANINE,ANALI PA Feb 16, 2017 09:02
--- NOTE | 2017-02-16 10:25 | PDOC ---
PROGRESS NOTES Subjective Subjective No new complaints. Objective Objective Vital Signs Date Time Temp Pulse Resp B/P (MAP) Pulse Ox O2 Delivery O2 Flow Rate FiO2 02/16/17 09:35 16 Room Air 02/16/17 08:37 60 103/70 02/16/17 08:35 94 02/16/17 07:00 98.3 98.3 02/15/17 08:00 2.0 Intake and Output 02/16/17 06:59 Intake Total 240 ml Output Total 401 ml Balance -161 ml Intake Oral 240 ml Output Urine Total 400 ml Stool Total 1 ml # Bowel Movements 2 Physical Exam Physical Exam She is sitting at edge of bed and she continues to get up more often and she is transferring better. Plan Plan of Care To SNF or home with home health follow up when medically stable. Comment Review of Relevant I have reviewed the following items kai (where applicable) has been applied. Labs Laboratory Tests Test 02/14/17 13:30 02/14/17 16:30 02/14/17 20:52 02/15/17 05:00 Glucose (Fingerstick) 121 mg/dL (70-99) 160 mg/dL (70-99) 209 mg/dL (70-99) White Blood Count 6.6 x10^3/uL (4.0-11.0) Red Blood Count 3.33 x10^6/uL (3.50-5.40) Hemoglobin 9.5 g/dL (12.0-15.5) Hematocrit 28.9 % (36.0-47.0) Mean Corpuscular Volume 87 fL (79-100) Mean Corpuscular Hemoglobin 29 pg (25-35) Mean Corpuscular Hemoglobin Concent 33 g/dL (31-37) Red Cell Distribution Width 15.4 % (11.5-14.5) Platelet Count 176 x10^3/uL (140-400) Neutrophils (%) (Auto) 62 % (31-73) Lymphocytes (%) (Auto) 29 % (24-48) Monocytes (%) (Auto) 8 % (0-9) Eosinophils (%) (Auto) 1 % (0-3) Basophils (%) (Auto) 0 % (0-3) Neutrophils # (Auto) 4.1 x10^3uL (1.8-7.7) Lymphocytes # (Auto) 1.9 x10^3/uL (1.0-4.8) Monocytes # (Auto) 0.5 x10^3/uL (0.0-1.1) Eosinophils # (Auto) 0.1 x10^3/uL (0.0-0.7) Basophils # (Auto) 0.0 x10^3/uL (0.0-0.2) Sodium Level 140 mmol/L (136-145) Potassium Level 4.1 mmol/L (3.5-5.1) Chloride Level 104 mmol/L (98-107) Carbon Dioxide Level 31 mmol/L (21-32) Anion Gap 5 (6-14) Blood Urea Nitrogen 51 mg/dL (7-20) Creatinine 2.8 mg/dL (0.6-1.0) Estimated GFR (Cockcroft-Gault) 16.8 Glucose Level 188 mg/dL (70-99) Calcium Level 8.5 mg/dL (8.5-10.1) Test 02/15/17 07:32 02/15/17 11:38 02/15/17 16:36 02/15/17 21:04 Glucose (Fingerstick) 136 mg/dL (70-99) 120 mg/dL (70-99) 193 mg/dL (70-99) 161 mg/dL (70-99) Test 02/16/17 04:05 White Blood Count 7.6 x10^3/uL (4.0-11.0) Red Blood Count 3.31 x10^6/uL (3.50-5.40) Hemoglobin 9.4 g/dL (12.0-15.5) Hematocrit 28.8 % (36.0-47.0) Mean Corpuscular Volume 87 fL (79-100) Mean Corpuscular Hemoglobin 29 pg (25-35) Mean Corpuscular Hemoglobin Concent 33 g/dL (31-37) Red Cell Distribution Width 15.1 % (11.5-14.5) Platelet Count 180 x10^3/uL (140-400) Neutrophils (%) (Auto) 66 % (31-73) Lymphocytes (%) (Auto) 26 % (24-48) Monocytes (%) (Auto) 7 % (0-9) Eosinophils (%) (Auto) 1 % (0-3) Basophils (%) (Auto) 0 % (0-3) Neutrophils # (Auto) 5.0 x10^3uL (1.8-7.7) Lymphocytes # (Auto) 2.0 x10^3/uL (1.0-4.8) Monocytes # (Auto) 0.5 x10^3/uL (0.0-1.1) Eosinophils # (Auto) 0.1 x10^3/uL (0.0-0.7) Basophils # (Auto) 0.0 x10^3/uL (0.0-0.2) Sodium Level 142 mmol/L (136-145) Potassium Level 4.6 mmol/L (3.5-5.1) Chloride Level 104 mmol/L (98-107) Carbon Dioxide Level 30 mmol/L (21-32) Anion Gap 8 (6-14) Blood Urea Nitrogen 62 mg/dL (7-20) Creatinine 3.2 mg/dL (0.6-1.0) Estimated GFR (Cockcroft-Gault) 14.4 Glucose Level 179 mg/dL (70-99) Calcium Level 8.4 mg/dL (8.5-10.1) Laboratory Tests Test 02/15/17 11:38 02/15/17 16:36 02/15/17 21:04 02/16/17 04:05 Glucose (Fingerstick) 120 mg/dL (70-99) 193 mg/dL (70-99) 161 mg/dL (70-99) White Blood Count 7.6 x10^3/uL (4.0-11.0) Red Blood Count 3.31 x10^6/uL (3.50-5.40) Hemoglobin 9.4 g/dL (12.0-15.5) Hematocrit 28.8 % (36.0-47.0) Mean Corpuscular Volume 87 fL (79-100) Mean Corpuscular Hemoglobin 29 pg (25-35) Mean Corpuscular Hemoglobin Concent 33 g/dL (31-37) Red Cell Distribution Width 15.1 % (11.5-14.5) Platelet Count 180 x10^3/uL (140-400) Neutrophils (%) (Auto) 66 % (31-73) Lymphocytes (%) (Auto) 26 % (24-48) Monocytes (%) (Auto) 7 % (0-9) Eosinophils (%) (Auto) 1 % (0-3) Basophils (%) (Auto) 0 % (0-3) Neutrophils # (Auto) 5.0 x10^3uL (1.8-7.7) Lymphocytes # (Auto) 2.0 x10^3/uL (1.0-4.8) Monocytes # (Auto) 0.5 x10^3/uL (0.0-1.1) Eosinophils # (Auto) 0.1 x10^3/uL (0.0-0.7) Basophils # (Auto) 0.0 x10^3/uL (0.0-0.2) Sodium Level 142 mmol/L (136-145) Potassium Level 4.6 mmol/L (3.5-5.1) Chloride Level 104 mmol/L (98-107) Carbon Dioxide Level 30 mmol/L (21-32) Anion Gap 8 (6-14) Blood Urea Nitrogen 62 mg/dL (7-20) Creatinine 3.2 mg/dL (0.6-1.0) Estimated GFR (Cockcroft-Gault) 14.4 Glucose Level 179 mg/dL (70-99) Calcium Level 8.4 mg/dL (8.5-10.1) Microbiology 02/08/17 Gram Stain - Final, Complete Medications Current Medications Zolpidem Tartrate (Ambien) 5 mg PRN QHS PRN PO INSOMNIA, MAY REPEAT IN 1HR Last administered on 02/09/17 21:49; Start 01/29/17 at 18:45 Oxycodone HCl (Roxicodone) 5 mg PRN Q3HRS PRN PO BREAKTHROUGH PAIN Last administered on 02/16/17 08:35; Start 01/29/17 at 18:45 Acetaminophen (Tylenol) 650 mg PRN Q6HRS PRN PO Headaches, Temp > 101.5F Last administered on 02/08/17 21:24; Start 01/29/17 at 18:45 Ibuprofen (Motrin) 400 mg PRN Q6HRS PRN PO MILD PAIN; Start 01/29/17 at 18:45; Stop 02/05/17 at 09:24; Status DC Docusate Sodium (Colace) 100 mg BID PO Last administered on 02/01/17 08:42; Start 01/29/17 at 21:00; Stop 02/02/17 at 11:08; Status DC Magnesium Hydroxide (Milk Of Magnesia) 2,400 mg PRN Q12HR PRN PO CONSTIPATION; Start 01/29/17 at 18:45 Lactulose 20 gm PRN Q12HR PRN PO CONSTIPATION; Start 01/29/17 at 18:45; Stop at 09:12; Status DC Bisacodyl (Dulcolax Supp) 10 mg PRN DAILY PRN FL CONSTIPATION; Start 01/29/17 at 18:45; Stop 02/02/17 at 11:08; Status DC Enoxaparin Sodium (Lovenox 40mg Syringe) 40 mg Q12HR SQ Last administered on 21:09; Start 01/29/17 at 22:00; Stop 01/31/17 at 07:12; Status DC Alprazolam (Xanax) 0.25 mg QHS PRN PO ANXIETY / AGITATION Last administered on 02/12/17 21:20; Start 01/29/17 at 18:45 Carvedilol (Coreg) 12.5 mg BIDWMEALS PO Last administered on 01/29/17 21:51; Start 01/29/17 at 19:00; Stop 01/30/17 at 11:28; Status DC Cyclobenzaprine HCl (Flexeril) 10 mg BID PO Last administered on 02/16/17 08: 37; Start 01/29/17 at 21:00 Fluconazole (Diflucan) 100 mg DAILY PO Last administered on 02/12/17 08:03; Start 01/30/17 at 09:00; Stop 02/12/17 at 09:25; Status DC Furosemide (Lasix) 40 mg BID92 PO ; Start 01/30/17 at 09:00; Stop 01/30/17 at 09 :00; Status DC Hydralazine HCl (Apresoline) 25 mg BID PO Last administered on 02/09/17 08:30; Start 01/29/17 at 21:00; Stop 02/11/17 at 13:26; Status DC Acetaminophen/ Hydrocodone Bitart (Lortab 5/325) 1 tab PRN Q6HRS PRN PO MILD PAIN Last administered on 02/09/17 21:52; Start 01/29/17 at 18:45; Stop 02/11/17 at 09:12; Status DC Lisinopril (Prinivil) 40 mg DAILY PO Last administered on 02/11/17 10:18; Start 01/30/17 at 09:00; Stop 02/11/17 at 13:25; Status DC Oxycodone/ Acetaminophen (Percocet 10/325) 1 tab PRN Q6HRS PRN PO MODERATE- SEVERE PAIN Last administered on 02/10/17 13:11; Start 01/29/17 at 18:45 Tramadol HCl (Ultram) 100 mg BID PO Last administered on 01/29/17 21:50; Start 01/29/17 at 21:00; Stop 01/30/17 at 11:51; Status DC Vitamin D (Vitamin D3) 5,000 unit DAILY PO Last administered on 02/16/17 08:35 ; Start 01/30/17 at 09:00 Gabapentin (Neurontin) 300 mg PRN DAILY PRN PO NERVE PAIN Last administered on 02/09/17 21:51; Start 01/29/17 at 21:00 Glimepiride (Amaryl) 4 mg BIDWMEALS PO Last administered on 02/08/17 09:10; Start 01/30/17 at 09:00; Stop 02/09/17 at 09:09; Status DC Insulin Detemir (Levemir) 40 units QHS SQ Last administered on 01/29/17 22:01 ; Start 01/29/17 at 21:00; Stop 01/30/17 at 11:51; Status DC Insulin Aspart (NovoLOG) 50 units TIDAC SQ Last administered on 01/29/17 22:00 ; Start 01/29/17 at 19:00; Stop 01/30/17 at 11:51; Status DC Non-Formulary Medication 1.2 mg DAILY SQ ; Start 01/30/17 at 09:00; Stop at 09:00; Status DC Pantoprazole Sodium (Protonix) 40 mg DAILYAC PO Last administered on 02/16/17 07:44; Start 01/30/17 at 07:30 Potassium Chloride (Klor-Con) 10 meq DAILYWBKFT PO Last administered on 08:59; Start 01/30/17 at 08:00; Stop 02/05/17 at 09:21; Status DC Insulin Aspart (NovoLOG) 0-9 UNITS TIDWMEALS SQ Last administered on 02/15/17 16:44; Start 01/30/17 at 08:00 Dextrose (Dextrose 50%-Water Syringe) 12.5 gm PRN Q15MIN PRN IV SEE COMMENTS; Start 01/29/17 at 18:45 Furosemide (Lasix) 40 mg 1X ONCE IVP Last administered on 01/29/17 21:52; Start 01/29/17 at 21:00; Stop 01/29/17 at 21:01; Status DC Furosemide (Lasix) 40 mg BID92 IVP Last administered on 01/30/17 11:01; Start 01/30/17 at 09:00; Stop 01/30/17 at 11:28; Status DC Lidocaine HCl (Xylocaine-Mpf 1% Vial) 2 ml STK-MED ONCE .ROUTE ; Start 01/29/17 at 20:37; Stop 01/29/17 at 20:38; Status DC Dextrose 250 ml @ 1,000 mls/hr 1X ONCE IV ; Start 01/30/17 at 07:45; Stop at 07:59; Status DC Glucose (Insta-Glucose) 15 gm PRN Q15MIN PRN PO LOW BLOOD SUGAR Last administered on 01/30/17 07:55; Start 01/30/17 at 08:00 Glucose (Insta-Glucose) 15 gm STK-MED ONCE .ROUTE ; Start 01/30/17 at 07:52; Stop 01/30/17 at 07:53; Status DC Lidocaine HCl (Xylocaine-Mpf 1% Vial) 2 ml STK-MED ONCE .ROUTE ; Start 01/29/17 at 21:00; Stop 01/30/17 at 09:01; Status DC Furosemide (Lasix) 40 mg DAILY IVP Last administered on 02/03/17 08:39; Start 01/31/17 at 09:00; Stop 02/03/17 at 15:50; Status DC Aspirin (Ecotrin) 81 mg [id number] PO Last administered on 02/16/17 08:35; Start 01/30/17 at 12:30 Insulin Detemir (Levemir) 25 units QHS SQ Last administered on 02/02/17 20:54 ; Start 01/30/17 at 21:00; Stop 02/03/17 at 11:09; Status DC Gabapentin (Neurontin) 400 mg BID PO Last administered on 02/16/17 08:37; Start 01/31/17 at 09:00 Gabapentin (Neurontin) 100 mg 1X ONCE PO Last administered on 01/31/17 01:56 ; Start 01/31/17 at 02:00; Stop 01/31/17 at 02:01; Status DC Enoxaparin Sodium (Lovenox 40mg Syringe) 40 mg QHS SQ Last administered on 02/03 20:32; Start 01/31/17 at 21:00; Stop 02/04/17 at 09:32; Status DC Methylprednisolone Acetate (DEPO-Medrol 40MG VIAL) 40 mg 1X ONCE IM Last administered on 02/01/17 13:30; Start 02/01/17 at 13:30; Stop 02/01/17 at 13:31 ; Status DC Lidocaine/Sodium Bicarbonate (Buffered Lidocaine 1%) 20 ml 1X ONCE IJ Last administered on 02/01/17 13:30; Start 02/01/17 at 13:30; Stop 02/01/17 at 13:31 ; Status DC Labetalol HCl (Normodyne) 20 mg PRN Q2HR PRN IVP HYPERTENSION, SEE COMMENTS Last administered on 02/01/17 23:59; Start 02/01/17 at 23:30; Stop 02/03/17 at 15:47; Status DC Insulin Aspart (NovoLOG) 10 units TIDAC SQ Last administered on 02/06/17 07:30 ; Start 02/02/17 at 11:30; Stop 02/07/17 at 13:06; Status DC Insulin Aspart (NovoLOG VIAL) 15 unit 1X ONCE SQ ; Start 02/02/17 at 08:45; Stop 02/02/17 at 08:46; Status Cancel Insulin Aspart (NovoLOG) 15 units 1X ONCE SQ Last administered on 02/02/17 08 :42; Start 02/02/17 at 08:45; Stop 02/02/17 at 08:46; Status DC Loperamide HCl (Imodium) 2 mg PRN Q15MIN PRN PO DIARRHEA Last administered on 09:43; Start 02/02/17 at 11:15; Stop 02/03/17 at 12:31; Status DC Loperamide HCl (Imodium) 2 mg PRN Q15MIN PRN PO DIARRHEA Last administered on 01:35; Start 02/02/17 at 12:45; Stop 02/04/17 at 14:00; Status DC Insulin Detemir (Levemir) 35 units QHS SQ Last administered on 02/06/17 20:58; Start 02/03/17 at 21:00; Stop 02/07/17 at 13:06; Status DC Metoprolol Tartrate (Lopressor) 12.5 mg BID PO Last administered on 02/15/17 21:31; Start 02/03/17 at 21:00 Furosemide (Lasix) 60 mg DAILY PO Last administered on 02/04/17 08:57; Start 02/04/17 at 09:00; Stop 02/04/17 at 14:34; Status DC Heparin Sodium (Porcine) (Heparin Sq) 5,000 unit Q8HRS SQ Last administered on 02/16/17 07:44; Start 02/04/17 at 14:00 Loperamide HCl (Imodium) 2 mg TID PO Last administered on 02/07/17 20:32; Start 02/04/17 at 14:00; Stop 02/09/17 at 10:50; Status DC Magnesium Sulfate/ Dextrose 50 ml @ 25 mls/hr PRN DAILY PRN IV for Mag < 1.7 on am labs; Start 02/04/17 at 14:30; Stop 02/05/17 at 10:05; Status DC Furosemide 100 mg/ Sodium Chloride 100 ml @ 0 mls/hr CONT PRN IV SEE I/O RECORD Last administered on 02/04/17 15:59; Start 02/04/17 at 14:30; Stop at 09:27; Status DC Acetylcysteine (Mucomyst 20% Oral Solution) 1,200 mg BID PO Last administered on 02/06/17 20:49; Start 02/05/17 at 09:00; Stop 02/07/17 at 08:59; Status DC Sodium Polystyrene Sulfonate (Kayexalate) 30 gm 1X ONCE PO Last administered on 02/06/17 09:49; Start 02/06/17 at 09:30; Stop 02/06/17 at 09:31; Status DC Dextrose 10 ml 1X ONCE IV Last administered on 02/06/17 09:56; Start 02/06/17 at 09:30; Stop 02/06/17 at 09:31; Status DC Insulin Human Regular (NovoLIN R VIAL) 10 unit 1X ONCE IV Last administered on 02/06/17 09:59; Start 02/06/17 at 09:30; Stop 02/06/17 at 09:31; Status DC Heparin Sodium/ Sodium Chloride 500 ml @ As Directed STK-MED ONCE .ROUTE ; Start 02/06/17 at 10:10; Stop 02/06/17 at 10:11; Status DC Lidocaine HCl 20 ml STK-MED ONCE .ROUTE ; Start 02/06/17 at 10:10; Stop 02/06/17 at 10:11; Status DC Fentanyl Citrate (Fentanyl 2ml Vial) 100 mcg STK-MED ONCE .ROUTE ; Start at 10:39; Stop 02/06/17 at 10:40; Status DC Midazolam HCl (Versed) 2 mg STK-MED ONCE .ROUTE ; Start 02/06/17 at 10:39; Stop 02/06/17 at 10:40; Status DC Heparin Sodium/ Sodium Chloride 1,000 unit 1X ONCE IART Last administered on 11:10; Start 02/06/17 at 11:15; Stop 02/06/17 at 11:16; Status DC Midazolam HCl (Versed) 1 mg 1X ONCE IV Last administered on 02/06/17 11:11; Start 02/06/17 at 11:15; Stop 02/06/17 at 11:16; Status DC Fentanyl Citrate (Fentanyl 2ml Vial) 50 mcg 1X ONCE IV Last administered on 11:11; Start 02/06/17 at 11:15; Stop 02/06/17 at 11:16; Status DC Lidocaine HCl 20 ml 1X ONCE IJ Last administered on 02/06/17 11:10; Start 02/06 at 11:15; Stop 02/06/17 at 11:16; Status DC Sodium Chloride (Normal Saline Flush) 3 ml QSHIFT PRN IV AFTER MEDS AND BLOOD DRAWS; Start 02/06/17 at 11:15; Status Cancel Nitroglycerin (Nitrostat) 0.4 mg PRN Q5MIN PRN SL CHEST PAIN; Start 02/06/17 at 11:15 Iron Sucrose 200 mg/Sodium Chloride 110 ml @ 55 mls/hr 3X/WEEK IV Last administered on 02/06/17 16:30; Start 02/06/17 at 13:00; Stop 02/11/17 at 09:12; Status DC Furosemide 100 mg/ Sodium Chloride 100 ml @ 0 mls/hr CONT PRN IV SEE I/O RECORD Last administered on 02/10/17 12:59; Start 02/06/17 at 13:30; Stop at 09:12; Status DC Insulin Detemir (Levemir) 20 units QHS SQ ; Start 02/07/17 at 21:00; Stop at 09:08; Status DC Furosemide (Lasix) 20 mg 1X ONCE IVP ; Start 02/07/17 at 13:30; Stop 02/07/17 at 13:31; Status Cancel Diclofenac Sodium (Voltaren) 1 katia BID TP Last administered on 02/16/17 08:41 ; Start 02/08/17 at 13:30 Lidocaine HCl 16 ml/Sodium Bicarbonate 4 meq/ Miscellaneous 20 ml @ 20 mls/hr 1X ONCE ID ; Start 02/09/17 at 06:00; Stop 02/09/17 at 06:59; Status UNV Lidocaine HCl 10 ml 1X ONCE INJ Last administered on 02/08/17 15:44; Start 02/08/17 at 14:00; Stop 02/08/17 at 14:01; Status DC Amlodipine Besylate (Norvasc) 10 mg DAILY PO Last administered on 02/16/17 08: 37; Start 02/09/17 at 09:00 Amlodipine Besylate (Norvasc) 10 mg 1X ONCE PO Last administered on 02/08/17 15:43; Start 02/08/17 at 16:00; Stop 02/08/17 at 16:01; Status DC Insulin Detemir (Levemir) 12 units QHS SQ Last administered on 02/10/17 21:02; Start 02/09/17 at 21:00; Stop 02/11/17 at 10:15; Status DC Ceftriaxone Sodium 1 gm/ Sodium Chloride 50 ml @ 100 mls/hr Q24H IV Last administered on 02/09/17 11:41; Start 02/09/17 at 10:00; Stop 02/10/17 at 09:25; Status DC Loperamide HCl (Imodium) 2 mg PRN TID PRN PO if diarrhea recurs Last administered on 02/16/17 08:37; Start 02/09/17 at 11:00 Lidocaine HCl (Xylocaine-Mpf 1% Vial) 2 ml STK-MED ONCE .ROUTE ; Start 02/10/17 at 06:35; Stop 02/10/17 at 06:36; Status DC Prednisone (Prednisone) 60 mg 1X ONCE PO Last administered on 02/10/17 09:53; Start 02/10/17 at 09:30; Stop 02/10/17 at 09:41; Status DC Prednisone (Prednisone) 40 mg DAILY PO Last administered on 02/12/17 08:02; Start 02/11/17 at 09:00; Stop 02/12/17 at 12:09; Status DC Colchicine (Colcrys) 1.2 mg 1X ONCE PO Last administered on 02/10/17 09:53; Start 02/10/17 at 09:30; Stop 02/10/17 at 09:41; Status DC Colchicine (Colcrys) 0.6 mg DAILY PO ; Start 02/11/17 at 09:00; Stop 02/11/17 at 09:00; Status DC Lidocaine HCl 1 ml STK-MED ONCE .ROUTE ; Start 02/11/17 at 09:38; Stop 02/11/17 at 09:39; Status DC Insulin Detemir (Levemir) 20 units QHS SQ Last administered on 02/15/17 21:27 ; Start 02/11/17 at 21:00 Insulin Aspart (NovoLOG) 15 units 1X ONCE SQ Last administered on 02/11/17 10: 15; Start 02/11/17 at 10:15; Stop 02/11/17 at 10:16; Status DC Insulin Aspart (NovoLOG) 8 units TIDAC SQ Last administered on 02/16/17 08:40 ; Start 02/11/17 at 11:30 Glycerin (Sani-Supp Adult) 1 supp 1X ONCE FL Last administered on 02/11/17 16: 37; Start 02/11/17 at 16:15; Stop 02/11/17 at 16:16; Status DC Prednisone (Prednisone) 20 mg DAILY PO Last administered on 02/16/17 08:38; Start 02/12/17 at 12:00 Sodium Chloride 500 ml @ 100 mls/hr 1X ONCE IV Last administered on 02/12/17 13:07; Start 02/12/17 at 12:30; Stop 02/12/17 at 17:29; Status DC Sertraline HCl (Zoloft) 25 mg QHS PO Last administered on 02/15/17 21:27; Start 02/12/17 at 21:00 Heparin Sodium (Porcine) (Heparin Sodium) 10,000 unit STK-MED ONCE .ROUTE ; Start 02/13/17 at 12:13; Stop 02/13/17 at 12:14; Status DC Lidocaine/Sodium Bicarbonate (Buffered Lidocaine 1%) 20 ml STK-MED ONCE IJ ; Start 02/13/17 at 12:13; Stop 02/13/17 at 12:14; Status DC Heparin Sodium/ Sodium Chloride 500 ml @ As Directed STK-MED ONCE .ROUTE ; Start 02/13/17 at 12:13; Stop 02/13/17 at 12:14; Status DC Heparin Sodium/ Sodium Chloride 1,000 unit 1X ONCE IART Last administered on 12:46; Start 02/13/17 at 12:45; Stop 02/13/17 at 12:46; Status DC Lidocaine/Sodium Bicarbonate (Buffered Lidocaine 1%) 3 ml 1X ONCE IJ Last administered on 02/13/17 12:46; Start 02/13/17 at 12:45; Stop 02/13/17 at 12:46; Status DC Heparin Sodium (Porcine) (Heparin Sodium) 2,500 unit 1X ONCE INT CAT Last administered on 02/13/17 12:46; Start 02/13/17 at 12:45; Stop 02/13/17 at 12:46; Status DC Sodium Chloride 1,000 ml @ 1,000 mls/hr Q1H PRN IV hypotension; Start 02/13/17 at 16:41; Stop 02/13/17 at 22:40; Status DC Diphenhydramine HCl (Benadryl) 25 mg 1X PRN PRN IV ITCHING; Start 02/13/17 at 16 :45; Stop 02/14/17 at 16:44; Status DC Diphenhydramine HCl (Benadryl) 25 mg 1X PRN PRN IV ITCHING; Start 02/13/17 at 16 :45; Stop 02/14/17 at 16:44; Status DC Sodium Chloride (Normal Saline Flush) 10 ml 1X PRN PRN IV AP catheter pack; Start 02/13/17 at 16:45; Stop 02/14/17 at 16:44; Status DC Sodium Chloride (Normal Saline Flush) 10 ml 1X PRN PRN IV [employer] catheter pack; Start 02/13/17 at 16:45; Stop 02/14/17 at 16:44; Status DC Info (PHARMACY MONITORING -- do not chart) 1 each PRN DAILY PRN MC SEE COMMENTS ; Start 02/13/17 at 16:45 Sodium Chloride 1,000 ml @ 1,000 mls/hr Q1H PRN IV hypotension; Start 02/14/17 at 10:18; Stop 02/14/17 at 16:17; Status DC Sodium Chloride 1,000 ml @ 400 mls/hr Q2H30M PRN IV PATENCY; Start 02/14/17 at 10:18; Stop 02/14/17 at 22:17; Status DC Info (PHARMACY MONITORING -- do not chart) 1 each PRN DAILY PRN MC SEE COMMENTS ; Start 02/14/17 at 10:30; Status UNV Active Scripts Active Xanax (Alprazolam) 0.25 Mg Tablet 0.25 Mg PO QHS PRN Oxycodone-Acetaminophen 10-325 (Oxycodone Hcl/Acetaminophen) 1 Each Tablet 1 Tab PO PRN Q6HRS PRN Hydralazine Hcl 25 Mg Tablet 25 Mg PO BID Carvedilol 12.5 Mg Tablet 12.5 Mg PO BIDWMEALS Fluconazole 100 Mg Tablet 1 Tab PO DAILY Lasix (Furosemide) 40 Mg Tablet 40 Mg PO BID Reported Lisinopril 40 Mg Tablet 1 Tab PO DAILY Humalog (Insulin Lispro) 100 Unit/1 Ml Vial 50 Unit SQ TID Lortab 5-325 mg Tablet (Hydrocodone/Acetaminophen) 1 Each Tablet 1 Tab PO PRN Q6HRS PRN Levemir (Insulin Detemir) 100 Unit/1 Ml Vial 40 Unit SQ HS Victoza 3-Devon (Liraglutide) 0.6 Mg/0.1 Ml Pen.injctr 1.2 Mg SQ DAILY Gabapentin 300 Mg Capsule 1 Cap PO DAILY PRN Vitamin D3 (Cholecalciferol (Vitamin D3)) 5,000 Unit Tablet 1 Tab PO DAILY Glimepiride 4 Mg Tablet 1 Tab PO BID Tramadol Hcl 50 Mg Tablet 2 Tab PO BID Cyclobenzaprine Hcl 10 Mg Tablet 1 Tab PO BID Klor-Con 10 (Potassium Chloride) 10 Meq Tablet.er 1 Tab PO DAILY Omeprazole 20 Mg Capsule.dr 1 Cap PO DAILY Vitals/I & O Vital Sign - Last 24 Hours 02/15/17 02/15/17 02/15/17 02/15/17 11:00 15:00 19:45 20:00 Temp 97.5 97.4 97.6 97.5 97.4 97.6 Pulse 54 54 59 Resp 20 18 B/P (MAP) 122/72 (89) 121/61 (81) 120/60 (80) Pulse Ox 96 93 95 O2 Delivery Room Air Room Air Room Air Room Air 02/15/17 02/15/17 02/15/17 02/16/17 21:31 21:35 22:50 03:40 Temp 98.7 98.3 98.7 98.3 Pulse 64 69 60 Resp 22 18 18 B/P (MAP) 133/74 111/55 (73) 126/64 (84) Pulse Ox 94 94 O2 Delivery Room Air Room Air 02/16/17 02/16/17 02/16/17 02/16/17 07:00 08:10 08:35 08:37 Temp 98.3 98.3 Pulse 60 60 Resp 18 B/P (MAP) 103/70 (81) 103/70 Pulse Ox 94 94 O2 Delivery Room Air Room Air Room Air 02/16/17 09:35 Resp 16 O2 Delivery Room Air Intake and Output 02/15/17 02/15/17 02/16/17 14:59 22:59 06:59 Intake Total 120 ml 120 ml Output Total 326 ml 75 ml Balance -206 ml 45 ml GABRIEL LAWS MD Feb 16, 2017 10:25
[2017-02-16 11:00] VITALS: BP 93/54
--- NOTE | 2017-02-16 11:07 | PDOC ---
Renal-Progress Notes Vitals Vitals Vital Signs Date Time Temp Pulse Resp B/P (MAP) Pulse Ox O2 Delivery O2 Flow Rate FiO2 02/16/17 09:35 16 Room Air 02/16/17 08:37 60 103/70 02/16/17 08:35 94 02/16/17 07:00 98.3 98.3 02/15/17 08:00 2.0 Weight Weight [ ] I.O. Intake and Output Intake and Output 02/16/17 07:00 Intake Total 240 ml Output Total 401 ml Balance -161 ml Intake Oral 240 ml Output Urine Total 400 ml Stool Total 1 ml # Bowel Movements 2 Labs Labs Laboratory Tests Test 02/15/17 11:38 02/15/17 16:36 02/15/17 21:04 02/16/17 04:05 Glucose (Fingerstick) 120 mg/dL (70-99) 193 mg/dL (70-99) 161 mg/dL (70-99) White Blood Count 7.6 x10^3/uL (4.0-11.0) Red Blood Count 3.31 x10^6/uL (3.50-5.40) Hemoglobin 9.4 g/dL (12.0-15.5) Hematocrit 28.8 % (36.0-47.0) Mean Corpuscular Volume 87 fL (79-100) Mean Corpuscular Hemoglobin 29 pg (25-35) Mean Corpuscular Hemoglobin Concent 33 g/dL (31-37) Red Cell Distribution Width 15.1 % (11.5-14.5) Platelet Count 180 x10^3/uL (140-400) Neutrophils (%) (Auto) 66 % (31-73) Lymphocytes (%) (Auto) 26 % (24-48) Monocytes (%) (Auto) 7 % (0-9) Eosinophils (%) (Auto) 1 % (0-3) Basophils (%) (Auto) 0 % (0-3) Neutrophils # (Auto) 5.0 x10^3uL (1.8-7.7) Lymphocytes # (Auto) 2.0 x10^3/uL (1.0-4.8) Monocytes # (Auto) 0.5 x10^3/uL (0.0-1.1) Eosinophils # (Auto) 0.1 x10^3/uL (0.0-0.7) Basophils # (Auto) 0.0 x10^3/uL (0.0-0.2) Sodium Level 142 mmol/L (136-145) Potassium Level 4.6 mmol/L (3.5-5.1) Chloride Level 104 mmol/L (98-107) Carbon Dioxide Level 30 mmol/L (21-32) Anion Gap 8 (6-14) Blood Urea Nitrogen 62 mg/dL (7-20) Creatinine 3.2 mg/dL (0.6-1.0) Estimated GFR (Cockcroft-Gault) 14.4 Glucose Level 179 mg/dL (70-99) Calcium Level 8.4 mg/dL (8.5-10.1) Micro Micro Microbiology 02/08/17 Gram Stain - Final, Complete Review of Systems Constitutional: yes: malaise, weakness, alert, oriented Ears/Nose/Throat: Yes: no symptom reported Pulmonary: Yes dyspnea Cardiovascular: Yes edema Gastrointestional: Yes: constipation Genitourinary: Yes: other (OL[place]URIA) Musculoskeletal: Yes: muscle stiffness Skin: Yes no symptom reported Physical Exam General Appearance: no apparent distress Skin: warm Respiratory: bilateral CTA Abdomen: soft, N/T Extremities: edema Neurology: alert, oriented, follow commands Musculoskeletal: Osteoarthritis Assessment Assessment IMP NEW ESRD ANEMIA EDEMA CHF PLAN HD TODAY UF ABOUT 3-4 LITERS TOLERATED WILL HAVE IR PLACE TUNNELED HD CATHETER SW WILL NEED TO SET UP OP HD IN [place] WILL CHECK HEP STUDIES DIANA LUDWIG MD Feb 16, 2017 11:07
--- NOTE | 2017-02-16 11:17 | PDOC ---
PROGRESS NOTES Chief Complaint Chief Complaint CHF exacerbation ASSESSMENT AND PLAN: 1. JOSE: oliguric, temp HD catheter, ON HD per nephrology. 2. CHF exacerbation: echo with EF 60-65%, pA pressure 61. s/p RHC 02/06/17- normal. clinically improving. 3. HTN: well controlled on home meds (JOVANNA-I, norvasc) 4. Lymphedema: chronic 5. CKD: underlying; baseline creat 6. DM2: poorly controlled at home (HgbA1c 11.9), brittle control here. currently high 2/2 steroid use. cont levemir, ISS 7. Gout: acute in R knee, s/p tap. stop colchris with current JOSE, is on steroids. 8. Pain control: Oxy 5-10 PRN 9. Anemia: chronic dz: received venofer x3. continue low dose PO 10. Prophylaxis: Heparin SQ, PPI 11. Morbid obesity and Physical debility : need PT/OT 12. Depression: tears up easily. start SSRI History of Present Illness History of Present Illness HD today no acute events D/W RN Vitals Vitals Vital Signs Date Time Temp Pulse Resp B/P (MAP) Pulse Ox O2 Delivery O2 Flow Rate FiO2 02/16/17 11:00 98.2 61 18 93/54 (67) 96 Room Air 98.2 02/15/17 08:00 2.0 Physical Exam General: Alert, Oriented X3, Cooperative, No acute distress Heart: Regular rate, Normal S1 Lungs: Clear, Other Abdomen: Normal bowel sounds, Soft, No tenderness, No hepatosplenomegaly, No masses Extremities: Normal pulses, Other Skin: No significant lesion Labs LABS Laboratory Tests Test 02/15/17 11:38 02/15/17 16:36 02/15/17 21:04 02/16/17 04:05 Glucose (Fingerstick) 120 mg/dL (70-99) 193 mg/dL (70-99) 161 mg/dL (70-99) White Blood Count 7.6 x10^3/uL (4.0-11.0) Red Blood Count 3.31 x10^6/uL (3.50-5.40) Hemoglobin 9.4 g/dL (12.0-15.5) Hematocrit 28.8 % (36.0-47.0) Mean Corpuscular Volume 87 fL (79-100) Mean Corpuscular Hemoglobin 29 pg (25-35) Mean Corpuscular Hemoglobin Concent 33 g/dL (31-37) Red Cell Distribution Width 15.1 % (11.5-14.5) Platelet Count 180 x10^3/uL (140-400) Neutrophils (%) (Auto) 66 % (31-73) Lymphocytes (%) (Auto) 26 % (24-48) Monocytes (%) (Auto) 7 % (0-9) Eosinophils (%) (Auto) 1 % (0-3) Basophils (%) (Auto) 0 % (0-3) Neutrophils # (Auto) 5.0 x10^3uL (1.8-7.7) Lymphocytes # (Auto) 2.0 x10^3/uL (1.0-4.8) Monocytes # (Auto) 0.5 x10^3/uL (0.0-1.1) Eosinophils # (Auto) 0.1 x10^3/uL (0.0-0.7) Basophils # (Auto) 0.0 x10^3/uL (0.0-0.2) Sodium Level 142 mmol/L (136-145) Potassium Level 4.6 mmol/L (3.5-5.1) Chloride Level 104 mmol/L (98-107) Carbon Dioxide Level 30 mmol/L (21-32) Anion Gap 8 (6-14) Blood Urea Nitrogen 62 mg/dL (7-20) Creatinine 3.2 mg/dL (0.6-1.0) Estimated GFR (Cockcroft-Gault) 14.4 Glucose Level 179 mg/dL (70-99) Calcium Level 8.4 mg/dL (8.5-10.1) Comment Review of Relevant I have reviewed the following items kai (where applicable) has been applied. Labs Laboratory Tests Test 02/14/17 13:30 02/14/17 16:30 02/14/17 20:52 02/15/17 05:00 Glucose (Fingerstick) 121 mg/dL (70-99) 160 mg/dL (70-99) 209 mg/dL (70-99) White Blood Count 6.6 x10^3/uL (4.0-11.0) Red Blood Count 3.33 x10^6/uL (3.50-5.40) Hemoglobin 9.5 g/dL (12.0-15.5) Hematocrit 28.9 % (36.0-47.0) Mean Corpuscular Volume 87 fL (79-100) Mean Corpuscular Hemoglobin 29 pg (25-35) Mean Corpuscular Hemoglobin Concent 33 g/dL (31-37) Red Cell Distribution Width 15.4 % (11.5-14.5) Platelet Count 176 x10^3/uL (140-400) Neutrophils (%) (Auto) 62 % (31-73) Lymphocytes (%) (Auto) 29 % (24-48) Monocytes (%) (Auto) 8 % (0-9) Eosinophils (%) (Auto) 1 % (0-3) Basophils (%) (Auto) 0 % (0-3) Neutrophils # (Auto) 4.1 x10^3uL (1.8-7.7) Lymphocytes # (Auto) 1.9 x10^3/uL (1.0-4.8) Monocytes # (Auto) 0.5 x10^3/uL (0.0-1.1) Eosinophils # (Auto) 0.1 x10^3/uL (0.0-0.7) Basophils # (Auto) 0.0 x10^3/uL (0.0-0.2) Sodium Level 140 mmol/L (136-145) Potassium Level 4.1 mmol/L (3.5-5.1) Chloride Level 104 mmol/L (98-107) Carbon Dioxide Level 31 mmol/L (21-32) Anion Gap 5 (6-14) Blood Urea Nitrogen 51 mg/dL (7-20) Creatinine 2.8 mg/dL (0.6-1.0) Estimated GFR (Cockcroft-Gault) 16.8 Glucose Level 188 mg/dL (70-99) Calcium Level 8.5 mg/dL (8.5-10.1) Test 02/15/17 07:32 02/15/17 11:38 02/15/17 16:36 02/15/17 21:04 Glucose (Fingerstick) 136 mg/dL (70-99) 120 mg/dL (70-99) 193 mg/dL (70-99) 161 mg/dL (70-99) Test 02/16/17 04:05 White Blood Count 7.6 x10^3/uL (4.0-11.0) Red Blood Count 3.31 x10^6/uL (3.50-5.40) Hemoglobin 9.4 g/dL (12.0-15.5) Hematocrit 28.8 % (36.0-47.0) Mean Corpuscular Volume 87 fL (79-100) Mean Corpuscular Hemoglobin 29 pg (25-35) Mean Corpuscular Hemoglobin Concent 33 g/dL (31-37) Red Cell Distribution Width 15.1 % (11.5-14.5) Platelet Count 180 x10^3/uL (140-400) Neutrophils (%) (Auto) 66 % (31-73) Lymphocytes (%) (Auto) 26 % (24-48) Monocytes (%) (Auto) 7 % (0-9) Eosinophils (%) (Auto) 1 % (0-3) Basophils (%) (Auto) 0 % (0-3) Neutrophils # (Auto) 5.0 x10^3uL (1.8-7.7) Lymphocytes # (Auto) 2.0 x10^3/uL (1.0-4.8) Monocytes # (Auto) 0.5 x10^3/uL (0.0-1.1) Eosinophils # (Auto) 0.1 x10^3/uL (0.0-0.7) Basophils # (Auto) 0.0 x10^3/uL (0.0-0.2) Sodium Level 142 mmol/L (136-145) Potassium Level 4.6 mmol/L (3.5-5.1) Chloride Level 104 mmol/L (98-107) Carbon Dioxide Level 30 mmol/L (21-32) Anion Gap 8 (6-14) Blood Urea Nitrogen 62 mg/dL (7-20) Creatinine 3.2 mg/dL (0.6-1.0) Estimated GFR (Cockcroft-Gault) 14.4 Glucose Level 179 mg/dL (70-99) Calcium Level 8.4 mg/dL (8.5-10.1) Laboratory Tests Test 02/15/17 11:38 02/15/17 16:36 02/15/17 21:04 02/16/17 04:05 Glucose (Fingerstick) 120 mg/dL (70-99) 193 mg/dL (70-99) 161 mg/dL (70-99) White Blood Count 7.6 x10^3/uL (4.0-11.0) Red Blood Count 3.31 x10^6/uL (3.50-5.40) Hemoglobin 9.4 g/dL (12.0-15.5) Hematocrit 28.8 % (36.0-47.0) Mean Corpuscular Volume 87 fL (79-100) Mean Corpuscular Hemoglobin 29 pg (25-35) Mean Corpuscular Hemoglobin Concent 33 g/dL (31-37) Red Cell Distribution Width 15.1 % (11.5-14.5) Platelet Count 180 x10^3/uL (140-400) Neutrophils (%) (Auto) 66 % (31-73) Lymphocytes (%) (Auto) 26 % (24-48) Monocytes (%) (Auto) 7 % (0-9) Eosinophils (%) (Auto) 1 % (0-3) Basophils (%) (Auto) 0 % (0-3) Neutrophils # (Auto) 5.0 x10^3uL (1.8-7.7) Lymphocytes # (Auto) 2.0 x10^3/uL (1.0-4.8) Monocytes # (Auto) 0.5 x10^3/uL (0.0-1.1) Eosinophils # (Auto) 0.1 x10^3/uL (0.0-0.7) Basophils # (Auto) 0.0 x10^3/uL (0.0-0.2) Sodium Level 142 mmol/L (136-145) Potassium Level 4.6 mmol/L (3.5-5.1) Chloride Level 104 mmol/L (98-107) Carbon Dioxide Level 30 mmol/L (21-32) Anion Gap 8 (6-14) Blood Urea Nitrogen 62 mg/dL (7-20) Creatinine 3.2 mg/dL (0.6-1.0) Estimated GFR (Cockcroft-Gault) 14.4 Glucose Level 179 mg/dL (70-99) Calcium Level 8.4 mg/dL (8.5-10.1) Microbiology 02/08/17 Gram Stain - Final, Complete Medications Current Medications Zolpidem Tartrate (Ambien) 5 mg PRN QHS PRN PO INSOMNIA, MAY REPEAT IN 1HR Last administered on 02/09/17 21:49; Start 01/29/17 at 18:45 Oxycodone HCl (Roxicodone) 5 mg PRN Q3HRS PRN PO BREAKTHROUGH PAIN Last administered on 02/16/17 08:35; Start 01/29/17 at 18:45 Acetaminophen (Tylenol) 650 mg PRN Q6HRS PRN PO Headaches, Temp > 101.5F Last administered on 02/08/17 21:24; Start 01/29/17 at 18:45 Ibuprofen (Motrin) 400 mg PRN Q6HRS PRN PO MILD PAIN; Start 01/29/17 at 18:45; Stop 02/05/17 at 09:24; Status DC Docusate Sodium (Colace) 100 mg BID PO Last administered on 02/01/17 08:42; Start 01/29/17 at 21:00; Stop 02/02/17 at 11:08; Status DC Magnesium Hydroxide (Milk Of Magnesia) 2,400 mg PRN Q12HR PRN PO CONSTIPATION; Start 01/29/17 at 18:45 Lactulose 20 gm PRN Q12HR PRN PO CONSTIPATION; Start 01/29/17 at 18:45; Stop at 09:12; Status DC Bisacodyl (Dulcolax Supp) 10 mg PRN DAILY PRN VT CONSTIPATION; Start 01/29/17 at 18:45; Stop 02/02/17 at 11:08; Status DC Enoxaparin Sodium (Lovenox 40mg Syringe) 40 mg Q12HR SQ Last administered on 21:09; Start 01/29/17 at 22:00; Stop 01/31/17 at 07:12; Status DC Alprazolam (Xanax) 0.25 mg QHS PRN PO ANXIETY / AGITATION Last administered on 02/12/17 21:20; Start 01/29/17 at 18:45 Carvedilol (Coreg) 12.5 mg BIDWMEALS PO Last administered on 01/29/17 21:51; Start 01/29/17 at 19:00; Stop 01/30/17 at 11:28; Status DC Cyclobenzaprine HCl (Flexeril) 10 mg BID PO Last administered on 02/16/17 08: 37; Start 01/29/17 at 21:00 Fluconazole (Diflucan) 100 mg DAILY PO Last administered on 02/12/17 08:03; Start 01/30/17 at 09:00; Stop 02/12/17 at 09:25; Status DC Furosemide (Lasix) 40 mg BID92 PO ; Start 01/30/17 at 09:00; Stop 01/30/17 at 09 :00; Status DC Hydralazine HCl (Apresoline) 25 mg BID PO Last administered on 02/09/17 08:30; Start 01/29/17 at 21:00; Stop 02/11/17 at 13:26; Status DC Acetaminophen/ Hydrocodone Bitart (Lortab 5/325) 1 tab PRN Q6HRS PRN PO MILD PAIN Last administered on 02/09/17 21:52; Start 01/29/17 at 18:45; Stop 02/11/17 at 09:12; Status DC Lisinopril (Prinivil) 40 mg DAILY PO Last administered on 02/11/17 10:18; Start 01/30/17 at 09:00; Stop 02/11/17 at 13:25; Status DC Oxycodone/ Acetaminophen (Percocet 10/325) 1 tab PRN Q6HRS PRN PO MODERATE- SEVERE PAIN Last administered on 02/10/17 13:11; Start 01/29/17 at 18:45 Tramadol HCl (Ultram) 100 mg BID PO Last administered on 01/29/17 21:50; Start 01/29/17 at 21:00; Stop 01/30/17 at 11:51; Status DC Vitamin D (Vitamin D3) 5,000 unit DAILY PO Last administered on 02/16/17 08:35 ; Start 01/30/17 at 09:00 Gabapentin (Neurontin) 300 mg PRN DAILY PRN PO NERVE PAIN Last administered on 02/09/17 21:51; Start 01/29/17 at 21:00 Glimepiride (Amaryl) 4 mg BIDWMEALS PO Last administered on 02/08/17 09:10; Start 01/30/17 at 09:00; Stop 02/09/17 at 09:09; Status DC Insulin Detemir (Levemir) 40 units QHS SQ Last administered on 01/29/17 22:01 ; Start 01/29/17 at 21:00; Stop 01/30/17 at 11:51; Status DC Insulin Aspart (NovoLOG) 50 units TIDAC SQ Last administered on 01/29/17 22:00 ; Start 01/29/17 at 19:00; Stop 01/30/17 at 11:51; Status DC Non-Formulary Medication 1.2 mg DAILY SQ ; Start 01/30/17 at 09:00; Stop at 09:00; Status DC Pantoprazole Sodium (Protonix) 40 mg DAILYAC PO Last administered on 02/16/17 07:44; Start 01/30/17 at 07:30 Potassium Chloride (Klor-Con) 10 meq DAILYWBKFT PO Last administered on 08:59; Start 01/30/17 at 08:00; Stop 02/05/17 at 09:21; Status DC Insulin Aspart (NovoLOG) 0-9 UNITS TIDWMEALS SQ Last administered on 02/15/17 16:44; Start 01/30/17 at 08:00 Dextrose (Dextrose 50%-Water Syringe) 12.5 gm PRN Q15MIN PRN IV SEE COMMENTS; Start 01/29/17 at 18:45 Furosemide (Lasix) 40 mg 1X ONCE IVP Last administered on 01/29/17 21:52; Start 01/29/17 at 21:00; Stop 01/29/17 at 21:01; Status DC Furosemide (Lasix) 40 mg BID92 IVP Last administered on 01/30/17 11:01; Start 01/30/17 at 09:00; Stop 01/30/17 at 11:28; Status DC Lidocaine HCl (Xylocaine-Mpf 1% Vial) 2 ml STK-MED ONCE .ROUTE ; Start 01/29/17 at 20:37; Stop 01/29/17 at 20:38; Status DC Dextrose 250 ml @ 1,000 mls/hr 1X ONCE IV ; Start 01/30/17 at 07:45; Stop at 07:59; Status DC Glucose (Insta-Glucose) 15 gm PRN Q15MIN PRN PO LOW BLOOD SUGAR Last administered on 01/30/17 07:55; Start 01/30/17 at 08:00 Glucose (Insta-Glucose) 15 gm STK-MED ONCE .ROUTE ; Start 01/30/17 at 07:52; Stop 01/30/17 at 07:53; Status DC Lidocaine HCl (Xylocaine-Mpf 1% Vial) 2 ml STK-MED ONCE .ROUTE ; Start 01/29/17 at 21:00; Stop 01/30/17 at 09:01; Status DC Furosemide (Lasix) 40 mg DAILY IVP Last administered on 02/03/17 08:39; Start 01/31/17 at 09:00; Stop 02/03/17 at 15:50; Status DC Aspirin (Ecotrin) 81 mg DAILYWBKFT PO Last administered on 02/16/17 08:35; Start 01/30/17 at 12:30 Insulin Detemir (Levemir) 25 units QHS SQ Last administered on 02/02/17 20:54 ; Start 01/30/17 at 21:00; Stop 02/03/17 at 11:09; Status DC Gabapentin (Neurontin) 400 mg BID PO Last administered on 02/16/17 08:37; Start 01/31/17 at 09:00 Gabapentin (Neurontin) 100 mg 1X ONCE PO Last administered on 01/31/17 01:56 ; Start 01/31/17 at 02:00; Stop 01/31/17 at 02:01; Status DC Enoxaparin Sodium (Lovenox 40mg Syringe) 40 mg QHS SQ Last administered on 02/03 20:32; Start 01/31/17 at 21:00; Stop 02/04/17 at 09:32; Status DC Methylprednisolone Acetate (DEPO-Medrol 40MG VIAL) 40 mg 1X ONCE IM Last administered on 02/01/17 13:30; Start 02/01/17 at 13:30; Stop 02/01/17 at 13:31 ; Status DC Lidocaine/Sodium Bicarbonate (Buffered Lidocaine 1%) 20 ml 1X ONCE IJ Last administered on 02/01/17 13:30; Start 02/01/17 at 13:30; Stop 02/01/17 at 13:31 ; Status DC Labetalol HCl (Normodyne) 20 mg PRN Q2HR PRN IVP HYPERTENSION, SEE COMMENTS Last administered on 02/01/17 23:59; Start 02/01/17 at 23:30; Stop 02/03/17 at 15:47; Status DC Insulin Aspart (NovoLOG) 10 units TIDAC SQ Last administered on 02/06/17 07:30 ; Start 02/02/17 at 11:30; Stop 02/07/17 at 13:06; Status DC Insulin Aspart (NovoLOG VIAL) 15 unit 1X ONCE SQ ; Start 02/02/17 at 08:45; Stop 02/02/17 at 08:46; Status Cancel Insulin Aspart (NovoLOG) 15 units 1X ONCE SQ Last administered on 02/02/17 08 :42; Start 02/02/17 at 08:45; Stop 02/02/17 at 08:46; Status DC Loperamide HCl (Imodium) 2 mg PRN Q15MIN PRN PO DIARRHEA Last administered on 09:43; Start 02/02/17 at 11:15; Stop 02/03/17 at 12:31; Status DC Loperamide HCl (Imodium) 2 mg PRN Q15MIN PRN PO DIARRHEA Last administered on 01:35; Start 02/02/17 at 12:45; Stop 02/04/17 at 14:00; Status DC Insulin Detemir (Levemir) 35 units QHS SQ Last administered on 02/06/17 20:58; Start 02/03/17 at 21:00; Stop 02/07/17 at 13:06; Status DC Metoprolol Tartrate (Lopressor) 12.5 mg BID PO Last administered on 02/15/17 21:31; Start 02/03/17 at 21:00 Furosemide (Lasix) 60 mg DAILY PO Last administered on 02/04/17 08:57; Start 02/04/17 at 09:00; Stop 02/04/17 at 14:34; Status DC Heparin Sodium (Porcine) (Heparin Sq) 5,000 unit Q8HRS SQ Last administered on 02/16/17 07:44; Start 02/04/17 at 14:00 Loperamide HCl (Imodium) 2 mg TID PO Last administered on 02/07/17 20:32; Start 02/04/17 at 14:00; Stop 02/09/17 at 10:50; Status DC Magnesium Sulfate/ Dextrose 50 ml @ 25 mls/hr PRN DAILY PRN IV for Mag < 1.7 on am labs; Start 02/04/17 at 14:30; Stop 02/05/17 at 10:05; Status DC Furosemide 100 mg/ Sodium Chloride 100 ml @ 0 mls/hr CONT PRN IV SEE I/O RECORD Last administered on 02/04/17 15:59; Start 02/04/17 at 14:30; Stop at 09:27; Status DC Acetylcysteine (Mucomyst 20% Oral Solution) 1,200 mg BID PO Last administered on 02/06/17 20:49; Start 02/05/17 at 09:00; Stop 02/07/17 at 08:59; Status DC Sodium Polystyrene Sulfonate (Kayexalate) 30 gm 1X ONCE PO Last administered on 02/06/17 09:49; Start 02/06/17 at 09:30; Stop 02/06/17 at 09:31; Status DC Dextrose 10 ml 1X ONCE IV Last administered on 02/06/17 09:56; Start 02/06/17 at 09:30; Stop 02/06/17 at 09:31; Status DC Insulin Human Regular (NovoLIN R VIAL) 10 unit 1X ONCE IV Last administered on 02/06/17 09:59; Start 02/06/17 at 09:30; Stop 02/06/17 at 09:31; Status DC Heparin Sodium/ Sodium Chloride 500 ml @ As Directed STK-MED ONCE .ROUTE ; Start 02/06/17 at 10:10; Stop 02/06/17 at 10:11; Status DC Lidocaine HCl 20 ml STK-MED ONCE .ROUTE ; Start 02/06/17 at 10:10; Stop 02/06/17 at 10:11; Status DC Fentanyl Citrate (Fentanyl 2ml Vial) 100 mcg STK-MED ONCE .ROUTE ; Start at 10:39; Stop 02/06/17 at 10:40; Status DC Midazolam HCl (Versed) 2 mg STK-MED ONCE .ROUTE ; Start 02/06/17 at 10:39; Stop 02/06/17 at 10:40; Status DC Heparin Sodium/ Sodium Chloride 1,000 unit 1X ONCE IART Last administered on 11:10; Start 02/06/17 at 11:15; Stop 02/06/17 at 11:16; Status DC Midazolam HCl (Versed) 1 mg 1X ONCE IV Last administered on 02/06/17 11:11; Start 02/06/17 at 11:15; Stop 02/06/17 at 11:16; Status DC Fentanyl Citrate (Fentanyl 2ml Vial) 50 mcg 1X ONCE IV Last administered on 11:11; Start 02/06/17 at 11:15; Stop 02/06/17 at 11:16; Status DC Lidocaine HCl 20 ml 1X ONCE IJ Last administered on 02/06/17 11:10; Start 02/06 at 11:15; Stop 02/06/17 at 11:16; Status DC Sodium Chloride (Normal Saline Flush) 3 ml QSHIFT PRN IV AFTER MEDS AND BLOOD DRAWS; Start 02/06/17 at 11:15; Status Cancel Nitroglycerin (Nitrostat) 0.4 mg PRN Q5MIN PRN SL CHEST PAIN; Start 02/06/17 at 11:15 Iron Sucrose 200 mg/Sodium Chloride 110 ml @ 55 mls/hr 3X/WEEK IV Last administered on 02/06/17 16:30; Start 02/06/17 at 13:00; Stop 02/11/17 at 09:12; Status DC Furosemide 100 mg/ Sodium Chloride 100 ml @ 0 mls/hr CONT PRN IV SEE I/O RECORD Last administered on 02/10/17 12:59; Start 02/06/17 at 13:30; Stop at 09:12; Status DC Insulin Detemir (Levemir) 20 units QHS SQ ; Start 02/07/17 at 21:00; Stop at 09:08; Status DC Furosemide (Lasix) 20 mg 1X ONCE IVP ; Start 02/07/17 at 13:30; Stop 02/07/17 at 13:31; Status Cancel Diclofenac Sodium (Voltaren) 1 katia BID TP Last administered on 02/16/17 08:41 ; Start 02/08/17 at 13:30 Lidocaine HCl 16 ml/Sodium Bicarbonate 4 meq/ Miscellaneous 20 ml @ 20 mls/hr 1X ONCE ID ; Start 02/09/17 at 06:00; Stop 02/09/17 at 06:59; Status UNV Lidocaine HCl 10 ml 1X ONCE INJ Last administered on 02/08/17 15:44; Start 02/08/17 at 14:00; Stop 02/08/17 at 14:01; Status DC Amlodipine Besylate (Norvasc) 10 mg DAILY PO Last administered on 02/16/17 08: 37; Start 02/09/17 at 09:00 Amlodipine Besylate (Norvasc) 10 mg 1X ONCE PO Last administered on 02/08/17 15:43; Start 02/08/17 at 16:00; Stop 02/08/17 at 16:01; Status DC Insulin Detemir (Levemir) 12 units QHS SQ Last administered on 02/10/17 21:02; Start 02/09/17 at 21:00; Stop 02/11/17 at 10:15; Status DC Ceftriaxone Sodium 1 gm/ Sodium Chloride 50 ml @ 100 mls/hr Q24H IV Last administered on 02/09/17 11:41; Start 02/09/17 at 10:00; Stop 02/10/17 at 09:25; Status DC Loperamide HCl (Imodium) 2 mg PRN TID PRN PO if diarrhea recurs Last administered on 02/16/17 08:37; Start 02/09/17 at 11:00 Lidocaine HCl (Xylocaine-Mpf 1% Vial) 2 ml STK-MED ONCE .ROUTE ; Start 02/10/17 at 06:35; Stop 02/10/17 at 06:36; Status DC Prednisone (Prednisone) 60 mg 1X ONCE PO Last administered on 02/10/17 09:53; Start 02/10/17 at 09:30; Stop 02/10/17 at 09:41; Status DC Prednisone (Prednisone) 40 mg DAILY PO Last administered on 02/12/17 08:02; Start 02/11/17 at 09:00; Stop 02/12/17 at 12:09; Status DC Colchicine (Colcrys) 1.2 mg 1X ONCE PO Last administered on 02/10/17 09:53; Start 02/10/17 at 09:30; Stop 02/10/17 at 09:41; Status DC Colchicine (Colcrys) 0.6 mg DAILY PO ; Start 02/11/17 at 09:00; Stop 02/11/17 at 09:00; Status DC Lidocaine HCl 1 ml STK-MED ONCE .ROUTE ; Start 02/11/17 at 09:38; Stop 02/11/17 at 09:39; Status DC Insulin Detemir (Levemir) 20 units QHS SQ Last administered on 02/15/17 21:27 ; Start 02/11/17 at 21:00 Insulin Aspart (NovoLOG) 15 units 1X ONCE SQ Last administered on 02/11/17 10: 15; Start 02/11/17 at 10:15; Stop 02/11/17 at 10:16; Status DC Insulin Aspart (NovoLOG) 8 units TIDAC SQ Last administered on 02/16/17 08:40 ; Start 02/11/17 at 11:30 Glycerin (Sani-Supp Adult) 1 supp 1X ONCE VT Last administered on 02/11/17 16: 37; Start 02/11/17 at 16:15; Stop 02/11/17 at 16:16; Status DC Prednisone (Prednisone) 20 mg DAILY PO Last administered on 02/16/17 08:38; Start 02/12/17 at 12:00 Sodium Chloride 500 ml @ 100 mls/hr 1X ONCE IV Last administered on 02/12/17 13:07; Start 02/12/17 at 12:30; Stop 02/12/17 at 17:29; Status DC Sertraline HCl (Zoloft) 25 mg QHS PO Last administered on 02/15/17 21:27; Start 02/12/17 at 21:00 Heparin Sodium (Porcine) (Heparin Sodium) 10,000 unit STK-MED ONCE .ROUTE ; Start 02/13/17 at 12:13; Stop 02/13/17 at 12:14; Status DC Lidocaine/Sodium Bicarbonate (Buffered Lidocaine 1%) 20 ml STK-MED ONCE IJ ; Start 02/13/17 at 12:13; Stop 02/13/17 at 12:14; Status DC Heparin Sodium/ Sodium Chloride 500 ml @ As Directed STK-MED ONCE .ROUTE ; Start 02/13/17 at 12:13; Stop 02/13/17 at 12:14; Status DC Heparin Sodium/ Sodium Chloride 1,000 unit 1X ONCE IART Last administered on 12:46; Start 02/13/17 at 12:45; Stop 02/13/17 at 12:46; Status DC Lidocaine/Sodium Bicarbonate (Buffered Lidocaine 1%) 3 ml 1X ONCE IJ Last administered on 02/13/17 12:46; Start 02/13/17 at 12:45; Stop 02/13/17 at 12:46; Status DC Heparin Sodium (Porcine) (Heparin Sodium) 2,500 unit 1X ONCE INT CAT Last administered on 02/13/17 12:46; Start 02/13/17 at 12:45; Stop 02/13/17 at 12:46; Status DC Sodium Chloride 1,000 ml @ 1,000 mls/hr Q1H PRN IV hypotension; Start 02/13/17 at 16:41; Stop 02/13/17 at 22:40; Status DC Diphenhydramine HCl (Benadryl) 25 mg 1X PRN PRN IV ITCHING; Start 02/13/17 at 16 :45; Stop 02/14/17 at 16:44; Status DC Diphenhydramine HCl (Benadryl) 25 mg 1X PRN PRN IV ITCHING; Start 02/13/17 at 16 :45; Stop 02/14/17 at 16:44; Status DC Sodium Chloride (Normal Saline Flush) 10 ml 1X PRN PRN IV AP catheter pack; Start 02/13/17 at 16:45; Stop 02/14/17 at 16:44; Status DC Sodium Chloride (Normal Saline Flush) 10 ml 1X PRN PRN IV [employer]NE[employer] catheter pack; Start 02/13/17 at 16:45; Stop 02/14/17 at 16:44; Status DC Info (PHARMACY MONITORING -- do not chart) 1 each PRN DAILY PRN MC SEE COMMENTS ; Start 02/13/17 at 16:45 Sodium Chloride 1,000 ml @ 1,000 mls/hr Q1H PRN IV hypotension; Start 02/14/17 at 10:18; Stop 02/14/17 at 16:17; Status DC Sodium Chloride 1,000 ml @ 400 mls/hr Q2H30M PRN IV PATENCY; Start 02/14/17 at 10:18; Stop 02/14/17 at 22:17; Status DC Info (PHARMACY MONITORING -- do not chart) 1 each PRN DAILY PRN MC SEE COMMENTS ; Start 02/14/17 at 10:30; Status UNV Active Scripts Active Xanax (Alprazolam) 0.25 Mg Tablet 0.25 Mg PO QHS PRN Oxycodone-Acetaminophen 10-325 (Oxycodone Hcl/Acetaminophen) 1 Each Tablet 1 Tab PO PRN Q6HRS PRN Hydralazine Hcl 25 Mg Tablet 25 Mg PO BID Carvedilol 12.5 Mg Tablet 12.5 Mg PO BIDWMEALS Fluconazole 100 Mg Tablet 1 Tab PO DAILY Lasix (Furosemide) 40 Mg Tablet 40 Mg PO BID Reported Lisinopril 40 Mg Tablet 1 Tab PO DAILY Humalog (Insulin Lispro) 100 Unit/1 Ml Vial 50 Unit SQ TID Lortab 5-325 mg Tablet (Hydrocodone/Acetaminophen) 1 Each Tablet 1 Tab PO PRN Q6HRS PRN Levemir (Insulin Detemir) 100 Unit/1 Ml Vial 40 Unit SQ HS Victoza 3-Devon (Liraglutide) 0.6 Mg/0.1 Ml Pen.injctr 1.2 Mg SQ DAILY Gabapentin 300 Mg Capsule 1 Cap PO DAILY PRN Vitamin D3 (Cholecalciferol (Vitamin D3)) 5,000 Unit Tablet 1 Tab PO DAILY Glimepiride 4 Mg Tablet 1 Tab PO BID Tramadol Hcl 50 Mg Tablet 2 Tab PO BID Cyclobenzaprine Hcl 10 Mg Tablet 1 Tab PO BID Klor-Con 10 (Potassium Chloride) 10 Meq Tablet.er 1 Tab PO DAILY Omeprazole 20 Mg Capsule. 1 Cap PO DAILY Vitals/I & O Vital Sign - Last 24 Hours 02/15/17 02/15/17 02/15/17 02/15/17 15:00 19:45 20:00 21:31 Temp 97.4 97.6 97.4 97.6 Pulse 54 59 64 Resp 22 18 B/P (MAP) 121/61 (81) 120/60 (80) 133/74 Pulse Ox 93 95 O2 Delivery Room Air Room Air Room Air 02/15/17 02/15/17 02/16/17 02/16/17 21:35 22:50 03:40 07:00 Temp 98.7 98.3 98.3 98.7 98.3 98.3 Pulse 69 60 60 Resp 22 18 18 18 B/P (MAP) 111/55 (73) 126/64 (84) 103/70 (81) Pulse Ox 94 94 94 O2 Delivery Room Air Room Air Room Air 02/16/17 02/16/17 02/16/17 02/16/17 08:10 08:35 08:37 09:35 Pulse 60 Resp 16 B/P (MAP) 103/70 Pulse Ox 94 O2 Delivery Room Air Room Air Room Air 02/16/17 11:00 Temp 98.2 98.2 Pulse 61 Resp 18 B/P (MAP) 93/54 (67) Pulse Ox 96 O2 Delivery Room Air Intake and Output 02/15/17 02/15/17 02/16/17 15:00 23:00 07:00 Intake Total 120 ml 120 ml Output Total 326 ml 75 ml Balance -206 ml 45 ml SUKHJINDER KAPLAN MD Feb 16, 2017 11:17
[2017-02-16] MEDS ORDERED: IV NORMAL SALINE 1000ML BAG 1,000 ML IV PRN (13:29)
[2017-02-16] MEDS ORDERED: 0.9 % SODIUM CHLORIDE 10 ML DISP.SYRIN. IV PRN ×2 (13:30)
[2017-02-16] MEDS ORDERED: DIALYSIS PATIENT. MC PRN ×2 (13:30)
[2017-02-16 19:40] VITALS: BP 142/75
[2017-02-16] MEDS: INSULIN DETEMIR 300 UNITS/3 ML INSULN.PEN. SQ SCH (21:31)
[2017-02-16] MEDS: SERTRALINE 25 MG TABLET. PO SCH (21:32)
[2017-02-16 23:05] VITALS: BP 129/49
[2017-02-17] VITALS (13 sets, daily range): BP systolic 117–160; BP diastolic 54–99
[2017-02-17] MEDS: HEPARIN PF for SUB-Q USE 5,000 UNIT/0.5 ML VIAL. SQ SCH ×2 (05:24→17:27)
[2017-02-17 06:24] LABS: ALBUMIN 2.6 g/dL (3.4-5.0); DIRECT BILIRUBIN 0.2 mg/dL (0.0-0.2); TOTAL BILIRUBIN 0.2 mg/dL (0.2-1.0); TOTAL PROTEIN 5.6 g/dL (6.4-8.2)
[2017-02-17] MEDS: PANTOPRAZOLE 40 MG TABLET.DR. PO SCH (08:25)
[2017-02-17] MEDS: predniSONE 20 MG TABLET PO SCH (08:25)
[2017-02-17] MEDS: CYCLOBENZAPRINE 10 MG TABLET. PO SCH ×2 (08:25→22:08)
[2017-02-17] MEDS: oxyCODONE IR 5 MG TABLET PO PRN ×2 (08:25→22:19)
[2017-02-17] MEDS: CHOLECALCIFEROL (VITAMIN D3) 5,000 UNIT CAPSULE PO SCH (08:25)
[2017-02-17] MEDS: LOPERAMIDE 2 MG CAPSULE PO PRN (08:25)
[2017-02-17] MEDS: GABAPENTIN 400 MG CAPSULE. PO SCH ×2 (08:25→22:08)
[2017-02-17] MEDS: ASPIRIN ENTERIC COATED 81 MG TABLET.DR. PO SCH (08:25)
[2017-02-17] MEDS: amLODIPine BESYLATE 10 MG TABLET PO SCH (08:26)
[2017-02-17] MEDS: METOPROLOL TART IMMED RELEASE 25 MG TABLET. PO SCH ×2 (08:27→22:10)
[2017-02-17] MEDS: DICLOFENAC SODIUM 1% TOPICAL GEL 100GM TUBE. TP SCH ×2 (08:28→22:09)
[2017-02-17] MEDS: INSULIN ASPART 300 UNITS/3 ML INSULN.PEN SQ SCH ×6 (08:42→17:26)
--- NOTE | 2017-02-17 10:18 | PDOC ---
PROGRESS NOTES Subjective Subjective She feels better with her ability with transfers using roller walker. Objective Objective Vital Signs Date Time Temp Pulse Resp B/P (MAP) Pulse Ox O2 Delivery O2 Flow Rate FiO2 02/17/17 08:27 54 117/67 02/17/17 08:25 16 Room Air 02/17/17 07:25 97.6 95 97.6 02/15/17 08:00 2.0 Intake and Output 02/17/17 07:00 Intake Total 780 ml Output Total 650 ml Balance 130 ml Intake Oral 780 ml Output Urine Total 650 ml # Bowel Movements 1 Physical Exam Physical Exam She is alert and comfortable sitting at edge of bed and she is participating with therapy. Plan Plan of Long Term with home health follow up when medically stable. Comment Review of Relevant I have reviewed the following items kai (where applicable) has been applied. Labs Laboratory Tests Test 02/15/17 11:38 02/15/17 16:36 02/15/17 21:04 02/16/17 04:05 Glucose (Fingerstick) 120 mg/dL (70-99) 193 mg/dL (70-99) 161 mg/dL (70-99) White Blood Count 7.6 x10^3/uL (4.0-11.0) Red Blood Count 3.31 x10^6/uL (3.50-5.40) Hemoglobin 9.4 g/dL (12.0-15.5) Hematocrit 28.8 % (36.0-47.0) Mean Corpuscular Volume 87 fL (79-100) Mean Corpuscular Hemoglobin 29 pg (25-35) Mean Corpuscular Hemoglobin Concent 33 g/dL (31-37) Red Cell Distribution Width 15.1 % (11.5-14.5) Platelet Count 180 x10^3/uL (140-400) Neutrophils (%) (Auto) 66 % (31-73) Lymphocytes (%) (Auto) 26 % (24-48) Monocytes (%) (Auto) 7 % (0-9) Eosinophils (%) (Auto) 1 % (0-3) Basophils (%) (Auto) 0 % (0-3) Neutrophils # (Auto) 5.0 x10^3uL (1.8-7.7) Lymphocytes # (Auto) 2.0 x10^3/uL (1.0-4.8) Monocytes # (Auto) 0.5 x10^3/uL (0.0-1.1) Eosinophils # (Auto) 0.1 x10^3/uL (0.0-0.7) Basophils # (Auto) 0.0 x10^3/uL (0.0-0.2) Sodium Level 142 mmol/L (136-145) Potassium Level 4.6 mmol/L (3.5-5.1) Chloride Level 104 mmol/L (98-107) Carbon Dioxide Level 30 mmol/L (21-32) Anion Gap 8 (6-14) Blood Urea Nitrogen 62 mg/dL (7-20) Creatinine 3.2 mg/dL (0.6-1.0) Estimated GFR (Cockcroft-Gault) 14.4 Glucose Level 179 mg/dL (70-99) Calcium Level 8.4 mg/dL (8.5-10.1) Test 02/16/17 07:30 02/16/17 12:08 02/16/17 18:19 02/16/17 20:55 Glucose (Fingerstick) 145 mg/dL (70-99) 153 mg/dL (70-99) 169 mg/dL (70-99) 202 mg/dL (70-99) Test 02/17/17 04:45 02/17/17 07:46 Total Bilirubin 0.2 mg/dL (0.2-1.0) Direct Bilirubin 0.2 mg/dL (0.0-0.2) Aspartate Amino Transf (AST/SGOT) 18 U/L (15-37) Alanine Aminotransferase (ALT/SGPT) 24 U/L (14-59) Alkaline Phosphatase 176 U/L (46-116) Total Protein 5.6 g/dL (6.4-8.2) Albumin 2.6 g/dL (3.4-5.0) Glucose (Fingerstick) 155 mg/dL (70-99) Laboratory Tests Test 02/16/17 12:08 02/16/17 18:19 02/16/17 20:55 02/17/17 04:45 Glucose (Fingerstick) 153 mg/dL (70-99) 169 mg/dL (70-99) 202 mg/dL (70-99) Total Bilirubin 0.2 mg/dL (0.2-1.0) Direct Bilirubin 0.2 mg/dL (0.0-0.2) Aspartate Amino Transf (AST/SGOT) 18 U/L (15-37) Alanine Aminotransferase (ALT/SGPT) 24 U/L (14-59) Alkaline Phosphatase 176 U/L (46-116) Total Protein 5.6 g/dL (6.4-8.2) Albumin 2.6 g/dL (3.4-5.0) Test 02/17/17 07:46 Glucose (Fingerstick) 155 mg/dL (70-99) Microbiology 02/08/17 Gram Stain - Final, Complete Medications Current Medications Zolpidem Tartrate (Ambien) 5 mg PRN QHS PRN PO INSOMNIA, MAY REPEAT IN 1HR Last administered on 02/09/17 21:49; Start 01/29/17 at 18:45 Oxycodone HCl (Roxicodone) 5 mg PRN Q3HRS PRN PO BREAKTHROUGH PAIN Last administered on 02/17/17 08:25; Start 01/29/17 at 18:45 Acetaminophen (Tylenol) 650 mg PRN Q6HRS PRN PO Headaches, Temp > 101.5F Last administered on 02/08/17 21:24; Start 01/29/17 at 18:45 Ibuprofen (Motrin) 400 mg PRN Q6HRS PRN PO MILD PAIN; Start 01/29/17 at 18:45; Stop 02/05/17 at 09:24; Status DC Docusate Sodium (Colace) 100 mg BID PO Last administered on 02/01/17 08:42; Start 01/29/17 at 21:00; Stop 02/02/17 at 11:08; Status DC Magnesium Hydroxide (Milk Of Magnesia) 2,400 mg PRN Q12HR PRN PO CONSTIPATION; Start 01/29/17 at 18:45 Lactulose 20 gm PRN Q12HR PRN PO CONSTIPATION; Start 01/29/17 at 18:45; Stop at 09:12; Status DC Bisacodyl (Dulcolax Supp) 10 mg PRN DAILY PRN MD CONSTIPATION; Start 01/29/17 at 18:45; Stop 02/02/17 at 11:08; Status DC Enoxaparin Sodium (Lovenox 40mg Syringe) 40 mg Q12HR SQ Last administered on 21:09; Start 01/29/17 at 22:00; Stop 01/31/17 at 07:12; Status DC Alprazolam (Xanax) 0.25 mg QHS PRN PO ANXIETY / AGITATION Last administered on 02/12/17 21:20; Start 01/29/17 at 18:45 Carvedilol (Coreg) 12.5 mg BIDWMEALS PO Last administered on 01/29/17 21:51; Start 01/29/17 at 19:00; Stop 01/30/17 at 11:28; Status DC Cyclobenzaprine HCl (Flexeril) 10 mg BID PO Last administered on 02/17/17 08: 25; Start 01/29/17 at 21:00 Fluconazole (Diflucan) 100 mg DAILY PO Last administered on 02/12/17 08:03; Start 01/30/17 at 09:00; Stop 02/12/17 at 09:25; Status DC Furosemide (Lasix) 40 mg BID92 PO ; Start 01/30/17 at 09:00; Stop 01/30/17 at 09 :00; Status DC Hydralazine HCl (Apresoline) 25 mg BID PO Last administered on 02/09/17 08:30; Start 01/29/17 at 21:00; Stop 02/11/17 at 13:26; Status DC Acetaminophen/ Hydrocodone Bitart (Lortab 5/325) 1 tab PRN Q6HRS PRN PO MILD PAIN Last administered on 02/09/17 21:52; Start 01/29/17 at 18:45; Stop 02/11/17 at 09:12; Status DC Lisinopril (Prinivil) 40 mg DAILY PO Last administered on 02/11/17 10:18; Start 01/30/17 at 09:00; Stop 02/11/17 at 13:25; Status DC Oxycodone/ Acetaminophen (Percocet 10/325) 1 tab PRN Q6HRS PRN PO MODERATE- SEVERE PAIN Last administered on 02/10/17 13:11; Start 01/29/17 at 18:45 Tramadol HCl (Ultram) 100 mg BID PO Last administered on 01/29/17 21:50; Start 01/29/17 at 21:00; Stop 01/30/17 at 11:51; Status DC Vitamin D (Vitamin D3) 5,000 unit DAILY PO Last administered on 02/17/17 08:25 ; Start 01/30/17 at 09:00 Gabapentin (Neurontin) 300 mg PRN DAILY PRN PO NERVE PAIN Last administered on 02/09/17 21:51; Start 01/29/17 at 21:00 Glimepiride (Amaryl) 4 mg BIDWMEALS PO Last administered on 02/08/17 09:10; Start 01/30/17 at 09:00; Stop 02/09/17 at 09:09; Status DC Insulin Detemir (Levemir) 40 units QHS SQ Last administered on 01/29/17 22:01 ; Start 01/29/17 at 21:00; Stop 01/30/17 at 11:51; Status DC Insulin Aspart (NovoLOG) 50 units TIDAC SQ Last administered on 01/29/17 22:00 ; Start 01/29/17 at 19:00; Stop 01/30/17 at 11:51; Status DC Non-Formulary Medication 1.2 mg DAILY SQ ; Start 01/30/17 at 09:00; Stop at 09:00; Status DC Pantoprazole Sodium (Protonix) 40 mg DAILYAC PO Last administered on 02/17/17 08:25; Start 01/30/17 at 07:30 Potassium Chloride (Klor-Con) 10 meq DAILYWBKFT PO Last administered on 08:59; Start 01/30/17 at 08:00; Stop 02/05/17 at 09:21; Status DC Insulin Aspart (NovoLOG) 0-9 UNITS TIDWMEALS SQ Last administered on 02/17/17 08:43; Start 01/30/17 at 08:00 Dextrose (Dextrose 50%-Water Syringe) 12.5 gm PRN Q15MIN PRN IV SEE COMMENTS; Start 01/29/17 at 18:45 Furosemide (Lasix) 40 mg 1X ONCE IVP Last administered on 01/29/17 21:52; Start 01/29/17 at 21:00; Stop 01/29/17 at 21:01; Status DC Furosemide (Lasix) 40 mg BID92 IVP Last administered on 01/30/17 11:01; Start 01/30/17 at 09:00; Stop 01/30/17 at 11:28; Status DC Lidocaine HCl (Xylocaine-Mpf 1% Vial) 2 ml STK-MED ONCE .ROUTE ; Start 01/29/17 at 20:37; Stop 01/29/17 at 20:38; Status DC Dextrose 250 ml @ 1,000 mls/hr 1X ONCE IV ; Start 01/30/17 at 07:45; Stop at 07:59; Status DC Glucose (Insta-Glucose) 15 gm PRN Q15MIN PRN PO LOW BLOOD SUGAR Last administered on 01/30/17 07:55; Start 01/30/17 at 08:00 Glucose (Insta-Glucose) 15 gm STK-MED ONCE .ROUTE ; Start 01/30/17 at 07:52; Stop 01/30/17 at 07:53; Status DC Lidocaine HCl (Xylocaine-Mpf 1% Vial) 2 ml STK-MED ONCE .ROUTE ; Start 01/29/17 at 21:00; Stop 01/30/17 at 09:01; Status DC Furosemide (Lasix) 40 mg DAILY IVP Last administered on 02/03/17 08:39; Start 01/31/17 at 09:00; Stop 02/03/17 at 15:50; Status DC Aspirin (Ecotrin) 81 mg DAILYWBKFT PO Last administered on 02/17/17 08:25; Start 01/30/17 at 12:30 Insulin Detemir (Levemir) 25 units QHS SQ Last administered on 02/02/17 20:54 ; Start 01/30/17 at 21:00; Stop 02/03/17 at 11:09; Status DC Gabapentin (Neurontin) 400 mg BID PO Last administered on 02/17/17 08:25; Start 01/31/17 at 09:00 Gabapentin (Neurontin) 100 mg 1X ONCE PO Last administered on 01/31/17 01:56 ; Start 01/31/17 at 02:00; Stop 01/31/17 at 02:01; Status DC Enoxaparin Sodium (Lovenox 40mg Syringe) 40 mg QHS SQ Last administered on 02/03 20:32; Start 01/31/17 at 21:00; Stop 02/04/17 at 09:32; Status DC Methylprednisolone Acetate (DEPO-Medrol 40MG VIAL) 40 mg 1X ONCE IM Last administered on 02/01/17 13:30; Start 02/01/17 at 13:30; Stop 02/01/17 at 13:31 ; Status DC Lidocaine/Sodium Bicarbonate (Buffered Lidocaine 1%) 20 ml 1X ONCE IJ Last administered on 02/01/17 13:30; Start 02/01/17 at 13:30; Stop 02/01/17 at 13:31 ; Status DC Labetalol HCl (Normodyne) 20 mg PRN Q2HR PRN IVP HYPERTENSION, SEE COMMENTS Last administered on 02/01/17 23:59; Start 02/01/17 at 23:30; Stop 02/03/17 at 15:47; Status DC Insulin Aspart (NovoLOG) 10 units TIDAC SQ Last administered on 02/06/17 07:30 ; Start 02/02/17 at 11:30; Stop 02/07/17 at 13:06; Status DC Insulin Aspart (NovoLOG VIAL) 15 unit 1X ONCE SQ ; Start 02/02/17 at 08:45; Stop 02/02/17 at 08:46; Status Cancel Insulin Aspart (NovoLOG) 15 units 1X ONCE SQ Last administered on 02/02/17 08 :42; Start 02/02/17 at 08:45; Stop 02/02/17 at 08:46; Status DC Loperamide HCl (Imodium) 2 mg PRN Q15MIN PRN PO DIARRHEA Last administered on 09:43; Start 02/02/17 at 11:15; Stop 02/03/17 at 12:31; Status DC Loperamide HCl (Imodium) 2 mg PRN Q15MIN PRN PO DIARRHEA Last administered on 01:35; Start 02/02/17 at 12:45; Stop 02/04/17 at 14:00; Status DC Insulin Detemir (Levemir) 35 units QHS SQ Last administered on 02/06/17 20:58; Start 02/03/17 at 21:00; Stop 02/07/17 at 13:06; Status DC Metoprolol Tartrate (Lopressor) 12.5 mg BID PO Last administered on 02/17/17 08:27; Start 02/03/17 at 21:00 Furosemide (Lasix) 60 mg DAILY PO Last administered on 02/04/17 08:57; Start 02/04/17 at 09:00; Stop 02/04/17 at 14:34; Status DC Heparin Sodium (Porcine) (Heparin Sq) 5,000 unit Q8HRS SQ Last administered on 02/17/17 05:24; Start 02/04/17 at 14:00 Loperamide HCl (Imodium) 2 mg TID PO Last administered on 02/07/17 20:32; Start 02/04/17 at 14:00; Stop 02/09/17 at 10:50; Status DC Magnesium Sulfate/ Dextrose 50 ml @ 25 mls/hr PRN DAILY PRN IV for Mag < 1.7 on am labs; Start 02/04/17 at 14:30; Stop 02/05/17 at 10:05; Status DC Furosemide 100 mg/ Sodium Chloride 100 ml @ 0 mls/hr CONT PRN IV SEE I/O RECORD Last administered on 02/04/17 15:59; Start 02/04/17 at 14:30; Stop at 09:27; Status DC Acetylcysteine (Mucomyst 20% Oral Solution) 1,200 mg BID PO Last administered on 02/06/17 20:49; Start 02/05/17 at 09:00; Stop 02/07/17 at 08:59; Status DC Sodium Polystyrene Sulfonate (Kayexalate) 30 gm 1X ONCE PO Last administered on 02/06/17 09:49; Start 02/06/17 at 09:30; Stop 02/06/17 at 09:31; Status DC Dextrose 10 ml 1X ONCE IV Last administered on 02/06/17 09:56; Start 02/06/17 at 09:30; Stop 02/06/17 at 09:31; Status DC Insulin Human Regular (NovoLIN R VIAL) 10 unit 1X ONCE IV Last administered on 02/06/17 09:59; Start 02/06/17 at 09:30; Stop 02/06/17 at 09:31; Status DC Heparin Sodium/ Sodium Chloride 500 ml @ As Directed STK-MED ONCE .ROUTE ; Start 02/06/17 at 10:10; Stop 02/06/17 at 10:11; Status DC Lidocaine HCl 20 ml STK-MED ONCE .ROUTE ; Start 02/06/17 at 10:10; Stop 02/06/17 at 10:11; Status DC Fentanyl Citrate (Fentanyl 2ml Vial) 100 mcg STK-MED ONCE .ROUTE ; Start at 10:39; Stop 02/06/17 at 10:40; Status DC Midazolam HCl (Versed) 2 mg STK-MED ONCE .ROUTE ; Start 02/06/17 at 10:39; Stop 02/06/17 at 10:40; Status DC Heparin Sodium/ Sodium Chloride 1,000 unit 1X ONCE IART Last administered on 11:10; Start 02/06/17 at 11:15; Stop 02/06/17 at 11:16; Status DC Midazolam HCl (Versed) 1 mg 1X ONCE IV Last administered on 02/06/17 11:11; Start 02/06/17 at 11:15; Stop 02/06/17 at 11:16; Status DC Fentanyl Citrate (Fentanyl 2ml Vial) 50 mcg 1X ONCE IV Last administered on 11:11; Start 02/06/17 at 11:15; Stop 02/06/17 at 11:16; Status DC Lidocaine HCl 20 ml 1X ONCE IJ Last administered on 02/06/17 11:10; Start 02/06 at 11:15; Stop 02/06/17 at 11:16; Status DC Sodium Chloride (Normal Saline Flush) 3 ml QSHIFT PRN IV AFTER MEDS AND BLOOD DRAWS; Start 02/06/17 at 11:15; Status Cancel Nitroglycerin (Nitrostat) 0.4 mg PRN Q5MIN PRN SL CHEST PAIN; Start 02/06/17 at 11:15 Iron Sucrose 200 mg/Sodium Chloride 110 ml @ 55 mls/hr 3X/WEEK IV Last administered on 02/06/17 16:30; Start 02/06/17 at 13:00; Stop 02/11/17 at 09:12; Status DC Furosemide 100 mg/ Sodium Chloride 100 ml @ 0 mls/hr CONT PRN IV SEE I/O RECORD Last administered on 02/10/17 12:59; Start 02/06/17 at 13:30; Stop at 09:12; Status DC Insulin Detemir (Levemir) 20 units QHS SQ ; Start 02/07/17 at 21:00; Stop at 09:08; Status DC Furosemide (Lasix) 20 mg 1X ONCE IVP ; Start 02/07/17 at 13:30; Stop 02/07/17 at 13:31; Status Cancel Diclofenac Sodium (Voltaren) 1 katia BID TP Last administered on 02/17/17 08:28 ; Start 02/08/17 at 13:30 Lidocaine HCl 16 ml/Sodium Bicarbonate 4 meq/ Miscellaneous 20 ml @ 20 mls/hr 1X ONCE ID ; Start 02/09/17 at 06:00; Stop 02/09/17 at 06:59; Status UNV Lidocaine HCl 10 ml 1X ONCE INJ Last administered on 02/08/17 15:44; Start 02/08/17 at 14:00; Stop 02/08/17 at 14:01; Status DC Amlodipine Besylate (Norvasc) 10 mg DAILY PO Last administered on 02/17/17 08: 26; Start 02/09/17 at 09:00 Amlodipine Besylate (Norvasc) 10 mg 1X ONCE PO Last administered on 02/08/17 15:43; Start 02/08/17 at 16:00; Stop 02/08/17 at 16:01; Status DC Insulin Detemir (Levemir) 12 units QHS SQ Last administered on 02/10/17 21:02; Start 02/09/17 at 21:00; Stop 02/11/17 at 10:15; Status DC Ceftriaxone Sodium 1 gm/ Sodium Chloride 50 ml @ 100 mls/hr Q24H IV Last administered on 02/09/17 11:41; Start 02/09/17 at 10:00; Stop 02/10/17 at 09:25; Status DC Loperamide HCl (Imodium) 2 mg PRN TID PRN PO if diarrhea recurs Last administered on 02/17/17 08:25; Start 02/09/17 at 11:00 Lidocaine HCl (Xylocaine-Mpf 1% Vial) 2 ml STK-MED ONCE .ROUTE ; Start 02/10/17 at 06:35; Stop 02/10/17 at 06:36; Status DC Prednisone (Prednisone) 60 mg 1X ONCE PO Last administered on 02/10/17 09:53; Start 02/10/17 at 09:30; Stop 02/10/17 at 09:41; Status DC Prednisone (Prednisone) 40 mg DAILY PO Last administered on 02/12/17 08:02; Start 02/11/17 at 09:00; Stop 02/12/17 at 12:09; Status DC Colchicine (Colcrys) 1.2 mg 1X ONCE PO Last administered on 02/10/17 09:53; Start 02/10/17 at 09:30; Stop 02/10/17 at 09:41; Status DC Colchicine (Colcrys) 0.6 mg DAILY PO ; Start 02/11/17 at 09:00; Stop 02/11/17 at 09:00; Status DC Lidocaine HCl 1 ml STK-MED ONCE .ROUTE ; Start 02/11/17 at 09:38; Stop 02/11/17 at 09:39; Status DC Insulin Detemir (Levemir) 20 units QHS SQ Last administered on 02/16/17 21:31 ; Start 02/11/17 at 21:00 Insulin Aspart (NovoLOG) 15 units 1X ONCE SQ Last administered on 02/11/17 10: 15; Start 02/11/17 at 10:15; Stop 02/11/17 at 10:16; Status DC Insulin Aspart (NovoLOG) 8 units TIDAC SQ Last administered on 02/17/17 08:42 ; Start 02/11/17 at 11:30 Glycerin (Sani-Supp Adult) 1 supp 1X ONCE MD Last administered on 02/11/17 16: 37; Start 02/11/17 at 16:15; Stop 02/11/17 at 16:16; Status DC Prednisone (Prednisone) 20 mg DAILY PO Last administered on 02/17/17 08:25; Start 02/12/17 at 12:00 Sodium Chloride 500 ml @ 100 mls/hr 1X ONCE IV Last administered on 02/12/17 13:07; Start 02/12/17 at 12:30; Stop 02/12/17 at 17:29; Status DC Sertraline HCl (Zoloft) 25 mg QHS PO Last administered on 02/16/17 21:32; Start 02/12/17 at 21:00 Heparin Sodium (Porcine) (Heparin Sodium) 10,000 unit STK-MED ONCE .ROUTE ; Start 02/13/17 at 12:13; Stop 02/13/17 at 12:14; Status DC Lidocaine/Sodium Bicarbonate (Buffered Lidocaine 1%) 20 ml STK-MED ONCE IJ ; Start 02/13/17 at 12:13; Stop 02/13/17 at 12:14; Status DC Heparin Sodium/ Sodium Chloride 500 ml @ As Directed STK-MED ONCE .ROUTE ; Start 02/13/17 at 12:13; Stop 02/13/17 at 12:14; Status DC Heparin Sodium/ Sodium Chloride 1,000 unit 1X ONCE IART Last administered on 12:46; Start 02/13/17 at 12:45; Stop 02/13/17 at 12:46; Status DC Lidocaine/Sodium Bicarbonate (Buffered Lidocaine 1%) 3 ml 1X ONCE IJ Last administered on 02/13/17 12:46; Start 02/13/17 at 12:45; Stop 02/13/17 at 12:46; Status DC Heparin Sodium (Porcine) (Heparin Sodium) 2,500 unit 1X ONCE INT CAT Last administered on 02/13/17 12:46; Start 02/13/17 at 12:45; Stop 02/13/17 at 12:46; Status DC Sodium Chloride 1,000 ml @ 1,000 mls/hr Q1H PRN IV hypotension; Start 02/13/17 at 16:41; Stop 02/13/17 at 22:40; Status DC Diphenhydramine HCl (Benadryl) 25 mg 1X PRN PRN IV ITCHING; Start 02/13/17 at 16 :45; Stop 02/14/17 at 16:44; Status DC Diphenhydramine HCl (Benadryl) 25 mg 1X PRN PRN IV ITCHING; Start 02/13/17 at 16 :45; Stop 02/14/17 at 16:44; Status DC Sodium Chloride (Normal Saline Flush) 10 ml 1X PRN PRN IV AP catheter pack; Start 02/13/17 at 16:45; Stop 02/14/17 at 16:44; Status DC Sodium Chloride (Normal Saline Flush) 10 ml 1X PRN PRN IV PRINT INS[employer]OR catheter pack; Start 02/13/17 at 16:45; Stop 02/14/17 at 16:44; Status DC Info (PHARMACY MONITORING -- do not chart) 1 each PRN DAILY PRN MC SEE COMMENTS ; Start 02/13/17 at 16:45 Sodium Chloride 1,000 ml @ 1,000 mls/hr Q1H PRN IV hypotension; Start 02/14/17 at 10:18; Stop 02/14/17 at 16:17; Status DC Sodium Chloride 1,000 ml @ 400 mls/hr Q2H30M PRN IV PATENCY; Start 02/14/17 at 10:18; Stop 02/14/17 at 22:17; Status DC Info (PHARMACY MONITORING -- do not chart) 1 each PRN DAILY PRN MC SEE COMMENTS ; Start 02/14/17 at 10:30; Status UNV Sodium Chloride 1,000 ml @ 1,000 mls/hr Q1H PRN IV hypotension; Start 02/16/17 at 13:29; Stop 02/16/17 at 19:28; Status DC Sodium Chloride (Normal Saline Flush) 10 ml 1X PRN PRN IV AP catheter pack; Start 02/16/17 at 13:30; Stop 02/17/17 at 13:29 Sodium Chloride (Normal Saline Flush) 10 ml 1X PRN PRN IV PRINT INS[employer]OR catheter pack; Start 02/16/17 at 13:30; Stop 02/17/17 at 13:29 Info (PHARMACY MONITORING -- do not chart) 1 each PRN DAILY PRN MC SEE COMMENTS ; Start 02/16/17 at 13:30; Status UNV Info (PHARMACY MONITORING -- do not chart) 1 each PRN DAILY PRN MC SEE COMMENTS ; Start 02/16/17 at 13:30; Status UNV Active Scripts Active Xanax (Alprazolam) 0.25 Mg Tablet 0.25 Mg PO QHS PRN Oxycodone-Acetaminophen 10-325 (Oxycodone Hcl/Acetaminophen) 1 Each Tablet 1 Tab PO PRN Q6HRS PRN Hydralazine Hcl 25 Mg Tablet 25 Mg PO BID Carvedilol 12.5 Mg Tablet 12.5 Mg PO BIDWMEALS Fluconazole 100 Mg Tablet 1 Tab PO DAILY Lasix (Furosemide) 40 Mg Tablet 40 Mg PO BID Reported Lisinopril 40 Mg Tablet 1 Tab PO DAILY Humalog (Insulin Lispro) 100 Unit/1 Ml Vial 50 Unit SQ TID Lortab 5-325 mg Tablet (Hydrocodone/Acetaminophen) 1 Each Tablet 1 Tab PO PRN Q6HRS PRN Levemir (Insulin Detemir) 100 Unit/1 Ml Vial 40 Unit SQ HS Victoza 3-Devon (Liraglutide) 0.6 Mg/0.1 Ml Pen.injctr 1.2 Mg SQ DAILY Gabapentin 300 Mg Capsule 1 Cap PO DAILY PRN Vitamin D3 (Cholecalciferol (Vitamin D3)) 5,000 Unit Tablet 1 Tab PO DAILY Glimepiride 4 Mg Tablet 1 Tab PO BID Tramadol Hcl 50 Mg Tablet 2 Tab PO BID Cyclobenzaprine Hcl 10 Mg Tablet 1 Tab PO BID Klor-Con 10 (Potassium Chloride) 10 Meq Tablet.er 1 Tab PO DAILY Omeprazole 20 Mg Capsule.dr 1 Cap PO DAILY Vitals/I & O Vital Sign - Last 24 Hours 02/16/17 02/16/17 02/16/17 02/16/17 11:00 19:40 19:51 20:00 Temp 98.2 97.6 98.2 97.6 Pulse 61 73 Resp 18 18 20 B/P (MAP) 93/54 (67) 142/75 (97) Pulse Ox 96 92 O2 Delivery Room Air Room Air Room Air 02/16/17 02/16/17 02/16/17 02/17/17 20:51 21:32 23:05 03:45 Temp 98.1 97.7 98.1 97.7 Pulse 67 63 54 Resp 20 18 20 B/P (MAP) 119/62 129/49 (75) 117/67 (84) Pulse Ox 93 95 O2 Delivery Room Air Room Air 02/17/17 02/17/17 02/17/17 02/17/17 07:25 08:25 08:26 08:27 Temp 97.6 97.6 Pulse 54 54 54 Resp 20 16 B/P (MAP) 156/54 (88) 117/67 117/67 Pulse Ox 95 O2 Delivery Room Air Room Air Intake and Output 02/16/17 02/16/17 02/17/17 15:00 23:00 07:00 Intake Total 240 ml 440 ml 100 ml Output Total 450 ml 200 ml Balance 240 ml -10 ml -100 ml GABRIEL LAWS MD Feb 17, 2017 10:18
--- NOTE | 2017-02-17 10:23 | PDOC ---
PROGRESS NOTES Chief Complaint Chief Complaint CHF exacerbation ASSESSMENT AND PLAN: 1. JOSE: oliguric, permanent HD catheter today, need out HD per nephrology. 2. CHF exacerbation: echo with EF 60-65%, pA pressure 61. s/p RHC 02/06/17- normal. clinically improving. 3. HTN: well controlled on home meds (JOVANNA-I, norvasc) 4. Lymphedema: chronic 5. CKD: underlying; baseline creat 6. DM2: poorly controlled at home (HgbA1c 11.9), brittle control here. currently high 2/2 steroid use. cont Levemir, ISS 7. Gout: acute in R knee, s/p tap. stop colchris with current JOSE, is on steroids. 8. Pain control: Oxy 5-10 PRN 9. Anemia: chronic dz: received venofer x3. continue low dose PO 10. Prophylaxis: Heparin SQ, PPI 11. Morbid obesity and Physical debility : need PT/OT and SNU placement. 12. Depression: tears up easily. start SSRI History of Present Illness History of Present Illness HD NO FEVER NO CHILLS. Vitals Vitals Vital Signs Date Time Temp Pulse Resp B/P (MAP) Pulse Ox O2 Delivery O2 Flow Rate FiO2 02/17/17 08:27 54 117/67 02/17/17 08:25 16 Room Air 02/17/17 07:25 97.6 95 97.6 Physical Exam General: Alert, Oriented X3, Cooperative, No acute distress Heart: Regular rate, Normal S1 Lungs: Clear, Other Abdomen: Normal bowel sounds, Soft, No tenderness, No hepatosplenomegaly, No masses Extremities: Normal pulses, Other Skin: No significant lesion Labs LABS Laboratory Tests Test 02/16/17 12:08 02/16/17 18:19 02/16/17 20:55 02/17/17 04:45 Glucose (Fingerstick) 153 mg/dL (70-99) 169 mg/dL (70-99) 202 mg/dL (70-99) Total Bilirubin 0.2 mg/dL (0.2-1.0) Direct Bilirubin 0.2 mg/dL (0.0-0.2) Aspartate Amino Transf (AST/SGOT) 18 U/L (15-37) Alanine Aminotransferase (ALT/SGPT) 24 U/L (14-59) Alkaline Phosphatase 176 U/L (46-116) Total Protein 5.6 g/dL (6.4-8.2) Albumin 2.6 g/dL (3.4-5.0) Test 02/17/17 07:46 Glucose (Fingerstick) 155 mg/dL (70-99) Comment Review of Relevant I have reviewed the following items kai (where applicable) has been applied. Labs Laboratory Tests Test 02/15/17 11:38 02/15/17 16:36 02/15/17 21:04 02/16/17 04:05 Glucose (Fingerstick) 120 mg/dL (70-99) 193 mg/dL (70-99) 161 mg/dL (70-99) White Blood Count 7.6 x10^3/uL (4.0-11.0) Red Blood Count 3.31 x10^6/uL (3.50-5.40) Hemoglobin 9.4 g/dL (12.0-15.5) Hematocrit 28.8 % (36.0-47.0) Mean Corpuscular Volume 87 fL (79-100) Mean Corpuscular Hemoglobin 29 pg (25-35) Mean Corpuscular Hemoglobin Concent 33 g/dL (31-37) Red Cell Distribution Width 15.1 % (11.5-14.5) Platelet Count 180 x10^3/uL (140-400) Neutrophils (%) (Auto) 66 % (31-73) Lymphocytes (%) (Auto) 26 % (24-48) Monocytes (%) (Auto) 7 % (0-9) Eosinophils (%) (Auto) 1 % (0-3) Basophils (%) (Auto) 0 % (0-3) Neutrophils # (Auto) 5.0 x10^3uL (1.8-7.7) Lymphocytes # (Auto) 2.0 x10^3/uL (1.0-4.8) Monocytes # (Auto) 0.5 x10^3/uL (0.0-1.1) Eosinophils # (Auto) 0.1 x10^3/uL (0.0-0.7) Basophils # (Auto) 0.0 x10^3/uL (0.0-0.2) Sodium Level 142 mmol/L (136-145) Potassium Level 4.6 mmol/L (3.5-5.1) Chloride Level 104 mmol/L (98-107) Carbon Dioxide Level 30 mmol/L (21-32) Anion Gap 8 (6-14) Blood Urea Nitrogen 62 mg/dL (7-20) Creatinine 3.2 mg/dL (0.6-1.0) Estimated GFR (Cockcroft-Gault) 14.4 Glucose Level 179 mg/dL (70-99) Calcium Level 8.4 mg/dL (8.5-10.1) Test 02/16/17 07:30 02/16/17 12:08 02/16/17 18:19 02/16/17 20:55 Glucose (Fingerstick) 145 mg/dL (70-99) 153 mg/dL (70-99) 169 mg/dL (70-99) 202 mg/dL (70-99) Test 02/17/17 04:45 02/17/17 07:46 Total Bilirubin 0.2 mg/dL (0.2-1.0) Direct Bilirubin 0.2 mg/dL (0.0-0.2) Aspartate Amino Transf (AST/SGOT) 18 U/L (15-37) Alanine Aminotransferase (ALT/SGPT) 24 U/L (14-59) Alkaline Phosphatase 176 U/L (46-116) Total Protein 5.6 g/dL (6.4-8.2) Albumin 2.6 g/dL (3.4-5.0) Glucose (Fingerstick) 155 mg/dL (70-99) Laboratory Tests Test 02/16/17 12:08 02/16/17 18:19 02/16/17 20:55 02/17/17 04:45 Glucose (Fingerstick) 153 mg/dL (70-99) 169 mg/dL (70-99) 202 mg/dL (70-99) Total Bilirubin 0.2 mg/dL (0.2-1.0) Direct Bilirubin 0.2 mg/dL (0.0-0.2) Aspartate Amino Transf (AST/SGOT) 18 U/L (15-37) Alanine Aminotransferase (ALT/SGPT) 24 U/L (14-59) Alkaline Phosphatase 176 U/L (46-116) Total Protein 5.6 g/dL (6.4-8.2) Albumin 2.6 g/dL (3.4-5.0) Test 02/17/17 07:46 Glucose (Fingerstick) 155 mg/dL (70-99) Microbiology 02/08/17 Gram Stain - Final, Complete Medications Current Medications Zolpidem Tartrate (Ambien) 5 mg PRN QHS PRN PO INSOMNIA, MAY REPEAT IN 1HR Last administered on 02/09/17 21:49; Start 01/29/17 at 18:45 Oxycodone HCl (Roxicodone) 5 mg PRN Q3HRS PRN PO BREAKTHROUGH PAIN Last administered on 02/17/17 08:25; Start 01/29/17 at 18:45 Acetaminophen (Tylenol) 650 mg PRN Q6HRS PRN PO Headaches, Temp > 101.5F Last administered on 02/08/17 21:24; Start 01/29/17 at 18:45 Ibuprofen (Motrin) 400 mg PRN Q6HRS PRN PO MILD PAIN; Start 01/29/17 at 18:45; Stop 02/05/17 at 09:24; Status DC Docusate Sodium (Colace) 100 mg BID PO Last administered on 02/01/17 08:42; Start 01/29/17 at 21:00; Stop 02/02/17 at 11:08; Status DC Magnesium Hydroxide (Milk Of Magnesia) 2,400 mg PRN Q12HR PRN PO CONSTIPATION; Start 01/29/17 at 18:45 Lactulose 20 gm PRN Q12HR PRN PO CONSTIPATION; Start 01/29/17 at 18:45; Stop at 09:12; Status DC Bisacodyl (Dulcolax Supp) 10 mg PRN DAILY PRN [place] CONSTIPATION; Start 01/29/17 at 18:45; Stop 02/02/17 at 11:08; Status DC Enoxaparin Sodium (Lovenox 40mg Syringe) 40 mg Q12HR SQ Last administered on 21:09; Start 01/29/17 at 22:00; Stop 01/31/17 at 07:12; Status DC Alprazolam (Xanax) 0.25 mg QHS PRN PO ANXIETY / AGITATION Last administered on 02/12/17 21:20; Start 01/29/17 at 18:45 Carvedilol (Coreg) 12.5 mg BIDWMEALS PO Last administered on 01/29/17 21:51; Start 01/29/17 at 19:00; Stop 01/30/17 at 11:28; Status DC Cyclobenzaprine HCl (Flexeril) 10 mg BID PO Last administered on 02/17/17 08: 25; Start 01/29/17 at 21:00 Fluconazole (Diflucan) 100 mg DAILY PO Last administered on 02/12/17 08:03; Start 01/30/17 at 09:00; Stop 02/12/17 at 09:25; Status DC Furosemide (Lasix) 40 mg BID92 PO ; Start 01/30/17 at 09:00; Stop 01/30/17 at 09 :00; Status DC Hydralazine HCl (Apresoline) 25 mg BID PO Last administered on 02/09/17 08:30; Start 01/29/17 at 21:00; Stop 02/11/17 at 13:26; Status DC Acetaminophen/ Hydrocodone Bitart (Lortab 5/325) 1 tab PRN Q6HRS PRN PO MILD PAIN Last administered on 02/09/17 21:52; Start 01/29/17 at 18:45; Stop 02/11/17 at 09:12; Status DC Lisinopril (Prinivil) 40 mg DAILY PO Last administered on 02/11/17 10:18; Start 01/30/17 at 09:00; Stop 02/11/17 at 13:25; Status DC Oxycodone/ Acetaminophen (Percocet 10/325) 1 tab PRN Q6HRS PRN PO MODERATE- SEVERE PAIN Last administered on 02/10/17 13:11; Start 01/29/17 at 18:45 Tramadol HCl (Ultram) 100 mg BID PO Last administered on 01/29/17 21:50; Start 01/29/17 at 21:00; Stop 01/30/17 at 11:51; Status DC Vitamin D (Vitamin D3) 5,000 unit DAILY PO Last administered on 02/17/17 08:25 ; Start 01/30/17 at 09:00 Gabapentin (Neurontin) 300 mg PRN DAILY PRN PO NERVE PAIN Last administered on 02/09/17 21:51; Start 01/29/17 at 21:00 Glimepiride (Amaryl) 4 mg BIDWMEALS PO Last administered on 02/08/17 09:10; Start 01/30/17 at 09:00; Stop 02/09/17 at 09:09; Status DC Insulin Detemir (Levemir) 40 units QHS SQ Last administered on 01/29/17 22:01 ; Start 01/29/17 at 21:00; Stop 01/30/17 at 11:51; Status DC Insulin Aspart (NovoLOG) 50 units TIDAC SQ Last administered on 01/29/17 22:00 ; Start 01/29/17 at 19:00; Stop 01/30/17 at 11:51; Status DC Non-Formulary Medication 1.2 mg DAILY SQ ; Start 01/30/17 at 09:00; Stop at 09:00; Status DC Pantoprazole Sodium (Protonix) 40 mg DAILYAC PO Last administered on 02/17/17 08:25; Start 01/30/17 at 07:30 Potassium Chloride (Klor-Con) 10 meq DAILYWBKFT PO Last administered on 08:59; Start 01/30/17 at 08:00; Stop 02/05/17 at 09:21; Status DC Insulin Aspart (NovoLOG) 0-9 UNITS TIDWMEALS SQ Last administered on 02/17/17 08:43; Start 01/30/17 at 08:00 Dextrose (Dextrose 50%-Water Syringe) 12.5 gm PRN Q15MIN PRN IV SEE COMMENTS; Start 01/29/17 at 18:45 Furosemide (Lasix) 40 mg 1X ONCE IVP Last administered on 01/29/17 21:52; Start 01/29/17 at 21:00; Stop 01/29/17 at 21:01; Status DC Furosemide (Lasix) 40 mg BID92 IVP Last administered on 01/30/17 11:01; Start 01/30/17 at 09:00; Stop 01/30/17 at 11:28; Status DC Lidocaine HCl (Xylocaine-Mpf 1% Vial) 2 ml STK-MED ONCE .ROUTE ; Start 01/29/17 at 20:37; Stop 01/29/17 at 20:38; Status DC Dextrose 250 ml @ 1,000 mls/hr 1X ONCE IV ; Start 01/30/17 at 07:45; Stop at 07:59; Status DC Glucose (Insta-Glucose) 15 gm PRN Q15MIN PRN PO LOW BLOOD SUGAR Last administered on 01/30/17 07:55; Start 01/30/17 at 08:00 Glucose (Insta-Glucose) 15 gm STK-MED ONCE .ROUTE ; Start 01/30/17 at 07:52; Stop 01/30/17 at 07:53; Status DC Lidocaine HCl (Xylocaine-Mpf 1% Vial) 2 ml STK-MED ONCE .ROUTE ; Start 01/29/17 at 21:00; Stop 01/30/17 at 09:01; Status DC Furosemide (Lasix) 40 mg DAILY IVP Last administered on 02/03/17 08:39; Start 01/31/17 at 09:00; Stop 02/03/17 at 15:50; Status DC Aspirin (Ecotrin) 81 mg DAILYWBKFT PO Last administered on 02/17/17 08:25; Start 01/30/17 at 12:30 Insulin Detemir (Levemir) 25 units QHS SQ Last administered on 02/02/17 20:54 ; Start 01/30/17 at 21:00; Stop 02/03/17 at 11:09; Status DC Gabapentin (Neurontin) 400 mg BID PO Last administered on 02/17/17 08:25; Start 01/31/17 at 09:00 Gabapentin (Neurontin) 100 mg 1X ONCE PO Last administered on 01/31/17 01:56 ; Start 01/31/17 at 02:00; Stop 01/31/17 at 02:01; Status DC Enoxaparin Sodium (Lovenox 40mg Syringe) 40 mg QHS SQ Last administered on 02/03 20:32; Start 01/31/17 at 21:00; Stop 02/04/17 at 09:32; Status DC Methylprednisolone Acetate (DEPO-Medrol 40MG VIAL) 40 mg 1X ONCE IM Last administered on 02/01/17 13:30; Start 02/01/17 at 13:30; Stop 02/01/17 at 13:31 ; Status DC Lidocaine/Sodium Bicarbonate (Buffered Lidocaine 1%) 20 ml 1X ONCE IJ Last administered on 02/01/17 13:30; Start 02/01/17 at 13:30; Stop 02/01/17 at 13:31 ; Status DC Labetalol HCl (Normodyne) 20 mg PRN Q2HR PRN IVP HYPERTENSION, SEE COMMENTS Last administered on 02/01/17 23:59; Start 02/01/17 at 23:30; Stop 02/03/17 at 15:47; Status DC Insulin Aspart (NovoLOG) 10 units TIDAC SQ Last administered on 02/06/17 07:30 ; Start 02/02/17 at 11:30; Stop 02/07/17 at 13:06; Status DC Insulin Aspart (NovoLOG VIAL) 15 unit 1X ONCE SQ ; Start 02/02/17 at 08:45; Stop 02/02/17 at 08:46; Status Cancel Insulin Aspart (NovoLOG) 15 units 1X ONCE SQ Last administered on 02/02/17 08 :42; Start 02/02/17 at 08:45; Stop 02/02/17 at 08:46; Status DC Loperamide HCl (Imodium) 2 mg PRN Q15MIN PRN PO DIARRHEA Last administered on 09:43; Start 02/02/17 at 11:15; Stop 02/03/17 at 12:31; Status DC Loperamide HCl (Imodium) 2 mg PRN Q15MIN PRN PO DIARRHEA Last administered on 01:35; Start 02/02/17 at 12:45; Stop 02/04/17 at 14:00; Status DC Insulin Detemir (Levemir) 35 units QHS SQ Last administered on 02/06/17 20:58; Start 02/03/17 at 21:00; Stop 02/07/17 at 13:06; Status DC Metoprolol Tartrate (Lopressor) 12.5 mg BID PO Last administered on 02/17/17 08:27; Start 02/03/17 at 21:00 Furosemide (Lasix) 60 mg DAILY PO Last administered on 02/04/17 08:57; Start 02/04/17 at 09:00; Stop 02/04/17 at 14:34; Status DC Heparin Sodium (Porcine) (Heparin Sq) 5,000 unit Q8HRS SQ Last administered on 02/17/17 05:24; Start 02/04/17 at 14:00 Loperamide HCl (Imodium) 2 mg TID PO Last administered on 02/07/17 20:32; Start 02/04/17 at 14:00; Stop 02/09/17 at 10:50; Status DC Magnesium Sulfate/ Dextrose 50 ml @ 25 mls/hr PRN DAILY PRN IV for Mag < 1.7 on am labs; Start 02/04/17 at 14:30; Stop 02/05/17 at 10:05; Status DC Furosemide 100 mg/ Sodium Chloride 100 ml @ 0 mls/hr CONT PRN IV SEE I/O RECORD Last administered on 02/04/17 15:59; Start 02/04/17 at 14:30; Stop at 09:27; Status DC Acetylcysteine (Mucomyst 20% Oral Solution) 1,200 mg BID PO Last administered on 02/06/17 20:49; Start 02/05/17 at 09:00; Stop 02/07/17 at 08:59; Status DC Sodium Polystyrene Sulfonate (Kayexalate) 30 gm 1X ONCE PO Last administered on 02/06/17 09:49; Start 02/06/17 at 09:30; Stop 02/06/17 at 09:31; Status DC Dextrose 10 ml 1X ONCE IV Last administered on 02/06/17 09:56; Start 02/06/17 at 09:30; Stop 02/06/17 at 09:31; Status DC Insulin Human Regular (NovoLIN R VIAL) 10 unit 1X ONCE IV Last administered on 02/06/17 09:59; Start 02/06/17 at 09:30; Stop 02/06/17 at 09:31; Status DC Heparin Sodium/ Sodium Chloride 500 ml @ As Directed STK-MED ONCE .ROUTE ; Start 02/06/17 at 10:10; Stop 02/06/17 at 10:11; Status DC Lidocaine HCl 20 ml STK-MED ONCE .ROUTE ; Start 02/06/17 at 10:10; Stop 02/06/17 at 10:11; Status DC Fentanyl Citrate (Fentanyl 2ml Vial) 100 mcg STK-MED ONCE .ROUTE ; Start at 10:39; Stop 02/06/17 at 10:40; Status DC Midazolam HCl (Versed) 2 mg STK-MED ONCE .ROUTE ; Start 02/06/17 at 10:39; Stop 02/06/17 at 10:40; Status DC Heparin Sodium/ Sodium Chloride 1,000 unit 1X ONCE IART Last administered on 11:10; Start 02/06/17 at 11:15; Stop 02/06/17 at 11:16; Status DC Midazolam HCl (Versed) 1 mg 1X ONCE IV Last administered on 02/06/17 11:11; Start 02/06/17 at 11:15; Stop 02/06/17 at 11:16; Status DC Fentanyl Citrate (Fentanyl 2ml Vial) 50 mcg 1X ONCE IV Last administered on 11:11; Start 02/06/17 at 11:15; Stop 02/06/17 at 11:16; Status DC Lidocaine HCl 20 ml 1X ONCE IJ Last administered on 02/06/17 11:10; Start 02/06 at 11:15; Stop 02/06/17 at 11:16; Status DC Sodium Chloride (Normal Saline Flush) 3 ml QSHIFT PRN IV AFTER MEDS AND BLOOD DRAWS; Start 02/06/17 at 11:15; Status Cancel Nitroglycerin (Nitrostat) 0.4 mg PRN Q5MIN PRN SL CHEST PAIN; Start 02/06/17 at 11:15 Iron Sucrose 200 mg/Sodium Chloride 110 ml @ 55 mls/hr 3X/WEEK IV Last administered on 02/06/17 16:30; Start 02/06/17 at 13:00; Stop 02/11/17 at 09:12; Status DC Furosemide 100 mg/ Sodium Chloride 100 ml @ 0 mls/hr CONT PRN IV SEE I/O RECORD Last administered on 02/10/17 12:59; Start 02/06/17 at 13:30; Stop at 09:12; Status DC Insulin Detemir (Levemir) 20 units QHS SQ ; Start 02/07/17 at 21:00; Stop at 09:08; Status DC Furosemide (Lasix) 20 mg 1X ONCE IVP ; Start 02/07/17 at 13:30; Stop 02/07/17 at 13:31; Status Cancel Diclofenac Sodium (Voltaren) 1 katia BID TP Last administered on 02/17/17 08:28 ; Start 02/08/17 at 13:30 Lidocaine HCl 16 ml/Sodium Bicarbonate 4 meq/ Miscellaneous 20 ml @ 20 mls/hr 1X ONCE ID ; Start 02/09/17 at 06:00; Stop 02/09/17 at 06:59; Status UNV Lidocaine HCl 10 ml 1X ONCE INJ Last administered on 02/08/17 15:44; Start 02/08/17 at 14:00; Stop 02/08/17 at 14:01; Status DC Amlodipine Besylate (Norvasc) 10 mg DAILY PO Last administered on 02/17/17 08: 26; Start 02/09/17 at 09:00 Amlodipine Besylate (Norvasc) 10 mg 1X ONCE PO Last administered on 02/08/17 15:43; Start 02/08/17 at 16:00; Stop 02/08/17 at 16:01; Status DC Insulin Detemir (Levemir) 12 units QHS SQ Last administered on 02/10/17 21:02; Start 02/09/17 at 21:00; Stop 02/11/17 at 10:15; Status DC Ceftriaxone Sodium 1 gm/ Sodium Chloride 50 ml @ 100 mls/hr Q24H IV Last administered on 02/09/17 11:41; Start 02/09/17 at 10:00; Stop 02/10/17 at 09:25; Status DC Loperamide HCl (Imodium) 2 mg PRN TID PRN PO if diarrhea recurs Last administered on 02/17/17 08:25; Start 02/09/17 at 11:00 Lidocaine HCl (Xylocaine-Mpf 1% Vial) 2 ml STK-MED ONCE .ROUTE ; Start 02/10/17 at 06:35; Stop 02/10/17 at 06:36; Status DC Prednisone (Prednisone) 60 mg 1X ONCE PO Last administered on 02/10/17 09:53; Start 02/10/17 at 09:30; Stop 02/10/17 at 09:41; Status DC Prednisone (Prednisone) 40 mg DAILY PO Last administered on 02/12/17 08:02; Start 02/11/17 at 09:00; Stop 02/12/17 at 12:09; Status DC Colchicine (Colcrys) 1.2 mg 1X ONCE PO Last administered on 02/10/17 09:53; Start 02/10/17 at 09:30; Stop 02/10/17 at 09:41; Status DC Colchicine (Colcrys) 0.6 mg DAILY PO ; Start 02/11/17 at 09:00; Stop 02/11/17 at 09:00; Status DC Lidocaine HCl 1 ml STK-MED ONCE .ROUTE ; Start 02/11/17 at 09:38; Stop 02/11/17 at 09:39; Status DC Insulin Detemir (Levemir) 20 units QHS SQ Last administered on 02/16/17 21:31 ; Start 02/11/17 at 21:00 Insulin Aspart (NovoLOG) 15 units 1X ONCE SQ Last administered on 02/11/17 10: 15; Start 02/11/17 at 10:15; Stop 02/11/17 at 10:16; Status DC Insulin Aspart (NovoLOG) 8 units TIDAC SQ Last administered on 02/17/17 08:42 ; Start 02/11/17 at 11:30 Glycerin (Sani-Supp Adult) 1 supp 1X ONCE [place] Last administered on 02/11/17 16: 37; Start 02/11/17 at 16:15; Stop 02/11/17 at 16:16; Status DC Prednisone (Prednisone) 20 mg DAILY PO Last administered on 02/17/17 08:25; Start 02/12/17 at 12:00 Sodium Chloride 500 ml @ 100 mls/hr 1X ONCE IV Last administered on 02/12/17 13:07; Start 02/12/17 at 12:30; Stop 02/12/17 at 17:29; Status DC Sertraline HCl (Zoloft) 25 mg QHS PO Last administered on 02/16/17 21:32; Start 02/12/17 at 21:00 Heparin Sodium (Porcine) (Heparin Sodium) 10,000 unit STK-MED ONCE .ROUTE ; Start 02/13/17 at 12:13; Stop 02/13/17 at 12:14; Status DC Lidocaine/Sodium Bicarbonate (Buffered Lidocaine 1%) 20 ml STK-MED ONCE IJ ; Start 02/13/17 at 12:13; Stop 02/13/17 at 12:14; Status DC Heparin Sodium/ Sodium Chloride 500 ml @ As Directed STK-MED ONCE .ROUTE ; Start 02/13/17 at 12:13; Stop 02/13/17 at 12:14; Status DC Heparin Sodium/ Sodium Chloride 1,000 unit 1X ONCE IART Last administered on 12:46; Start 02/13/17 at 12:45; Stop 02/13/17 at 12:46; Status DC Lidocaine/Sodium Bicarbonate (Buffered Lidocaine 1%) 3 ml 1X ONCE IJ Last administered on 02/13/17 12:46; Start 02/13/17 at 12:45; Stop 02/13/17 at 12:46; Status DC Heparin Sodium (Porcine) (Heparin Sodium) 2,500 unit 1X ONCE INT CAT Last administered on 02/13/17 12:46; Start 02/13/17 at 12:45; Stop 02/13/17 at 12:46; Status DC Sodium Chloride 1,000 ml @ 1,000 mls/hr Q1H PRN IV hypotension; Start 02/13/17 at 16:41; Stop 02/13/17 at 22:40; Status DC Diphenhydramine HCl (Benadryl) 25 mg 1X PRN PRN IV ITCHING; Start 02/13/17 at 16 :45; Stop 02/14/17 at 16:44; Status DC Diphenhydramine HCl (Benadryl) 25 mg 1X PRN PRN IV ITCHING; Start 02/13/17 at 16 :45; Stop 02/14/17 at 16:44; Status DC Sodium Chloride (Normal Saline Flush) 10 ml 1X PRN PRN IV AP catheter pack; Start 02/13/17 at 16:45; Stop 02/14/17 at 16:44; Status DC Sodium Chloride (Normal Saline Flush) 10 ml 1X PRN PRN IV INSURANCE VERIFICATION REP catheter pack; Start 02/13/17 at 16:45; Stop 02/14/17 at 16:44; Status DC Info (PHARMACY MONITORING -- do not chart) 1 each PRN DAILY PRN MC SEE COMMENTS ; Start 02/13/17 at 16:45 Sodium Chloride 1,000 ml @ 1,000 mls/hr Q1H PRN IV hypotension; Start 02/14/17 at 10:18; Stop 02/14/17 at 16:17; Status DC Sodium Chloride 1,000 ml @ 400 mls/hr Q2H30M PRN IV PATENCY; Start 02/14/17 at 10:18; Stop 02/14/17 at 22:17; Status DC Info (PHARMACY MONITORING -- do not chart) 1 each PRN DAILY PRN MC SEE COMMENTS ; Start 02/14/17 at 10:30; Status UNV Sodium Chloride 1,000 ml @ 1,000 mls/hr Q1H PRN IV hypotension; Start 02/16/17 at 13:29; Stop 02/16/17 at 19:28; Status DC Sodium Chloride (Normal Saline Flush) 10 ml 1X PRN PRN IV AP catheter pack; Start 02/16/17 at 13:30; Stop 02/17/17 at 13:29 Sodium Chloride (Normal Saline Flush) 10 ml 1X PRN PRN IV INSURANCE VERIFICATION REP catheter pack; Start 02/16/17 at 13:30; Stop 02/17/17 at 13:29 Info (PHARMACY MONITORING -- do not chart) 1 each PRN DAILY PRN MC SEE COMMENTS ; Start 02/16/17 at 13:30; Status UNV Info (PHARMACY MONITORING -- do not chart) 1 each PRN DAILY PRN MC SEE COMMENTS ; Start 02/16/17 at 13:30; Status UNV Active Scripts Active Xanax (Alprazolam) 0.25 Mg Tablet 0.25 Mg PO QHS PRN Oxycodone-Acetaminophen 10-325 (Oxycodone Hcl/Acetaminophen) 1 Each Tablet 1 Tab PO PRN Q6HRS PRN Hydralazine Hcl 25 Mg Tablet 25 Mg PO BID Carvedilol 12.5 Mg Tablet 12.5 Mg PO BIDWMEALS Fluconazole 100 Mg Tablet 1 Tab PO DAILY Lasix (Furosemide) 40 Mg Tablet 40 Mg PO BID Reported Lisinopril 40 Mg Tablet 1 Tab PO DAILY Humalog (Insulin Lispro) 100 Unit/1 Ml Vial 50 Unit SQ TID Lortab 5-325 mg Tablet (Hydrocodone/Acetaminophen) 1 Each Tablet 1 Tab PO PRN Q6HRS PRN Levemir (Insulin Detemir) 100 Unit/1 Ml Vial 40 Unit SQ HS Victoza 3-Devon (Liraglutide) 0.6 Mg/0.1 Ml Pen.injctr 1.2 Mg SQ DAILY Gabapentin 300 Mg Capsule 1 Cap PO DAILY PRN Vitamin D3 (Cholecalciferol (Vitamin D3)) 5,000 Unit Tablet 1 Tab PO DAILY Glimepiride 4 Mg Tablet 1 Tab PO BID Tramadol Hcl 50 Mg Tablet 2 Tab PO BID Cyclobenzaprine Hcl 10 Mg Tablet 1 Tab PO BID Klor-Con 10 (Potassium Chloride) 10 Meq Tablet.er 1 Tab PO DAILY Omeprazole 20 Mg Capsule.dr 1 Cap PO DAILY Vitals/I & O Vital Sign - Last 24 Hours 02/16/17 02/16/17 02/16/17 02/16/17 11:00 19:40 19:51 20:00 Temp 98.2 97.6 98.2 97.6 Pulse 61 73 Resp 18 18 20 B/P (MAP) 93/54 (67) 142/75 (97) Pulse Ox 96 92 O2 Delivery Room Air Room Air Room Air 02/16/17 02/16/17 02/16/17 02/17/17 20:51 21:32 23:05 03:45 Temp 98.1 97.7 98.1 97.7 Pulse 67 63 54 Resp 20 18 20 B/P (MAP) 119/62 129/49 (75) 117/67 (84) Pulse Ox 93 95 O2 Delivery Room Air Room Air 02/17/17 02/17/17 02/17/17 02/17/17 07:25 08:25 08:26 08:27 Temp 97.6 97.6 Pulse 54 54 54 Resp 20 16 B/P (MAP) 156/54 (88) 117/67 117/67 Pulse Ox 95 O2 Delivery Room Air Room Air Intake and Output 02/16/17 02/16/17 02/17/17 15:00 23:00 07:00 Intake Total 240 ml 440 ml 100 ml Output Total 450 ml 200 ml Balance 240 ml -10 ml -100 ml SUKHJINDER KAPLAN MD Feb 17, 2017 10:22
--- NOTE | 2017-02-17 10:39 | PDOC ---
Renal-Progress Notes Subjective Notes Notes NO NEW COMPLAINTS History of Present Illness Hx of present illness NO CHANGE Vitals Vitals Vital Signs Date Time Temp Pulse Resp B/P (MAP) Pulse Ox O2 Delivery O2 Flow Rate FiO2 02/17/17 08:27 54 117/67 02/17/17 08:25 16 Room Air 02/17/17 07:25 97.6 95 97.6 Weight Weight [ ] I.O. Intake and Output Intake and Output 02/17/17 06:59 Intake Total 780 ml Output Total 650 ml Balance 130 ml Intake Oral 780 ml Output Urine Total 650 ml # Bowel Movements 1 Labs Labs Laboratory Tests Test 02/16/17 12:08 02/16/17 18:19 02/16/17 20:55 02/17/17 04:45 Glucose (Fingerstick) 153 mg/dL (70-99) 169 mg/dL (70-99) 202 mg/dL (70-99) Total Bilirubin 0.2 mg/dL (0.2-1.0) Direct Bilirubin 0.2 mg/dL (0.0-0.2) Aspartate Amino Transf (AST/SGOT) 18 U/L (15-37) Alanine Aminotransferase (ALT/SGPT) 24 U/L (14-59) Alkaline Phosphatase 176 U/L (46-116) Total Protein 5.6 g/dL (6.4-8.2) Albumin 2.6 g/dL (3.4-5.0) Test 02/17/17 07:46 Glucose (Fingerstick) 155 mg/dL (70-99) Micro Micro Microbiology 02/08/17 Gram Stain - Final, Complete Review of Systems Constitutional: yes: malaise, weakness, alert, oriented Ears/Nose/Throat: Yes: no symptom reported Pulmonary: Yes dyspnea Cardiovascular: Yes edema Gastrointestional: Yes: constipation Genitourinary: Yes: other ([place]) Musculoskeletal: Yes: muscle stiffness Skin: Yes no symptom reported Physical Exam General Appearance: no apparent distress Skin: warm Respiratory: bilateral CTA Abdomen: soft, N/T Extremities: edema Neurology: alert, oriented, follow commands Musculoskeletal: Osteoarthritis Assessment Assessment IMP NEW ESRD ANEMIA EDEMA CHF PLAN HD TOMORROW WILL HAVE IR PLACE TUNNELED HD CATHETER-D/W IR SW WILL NEED TO SET UP OP HD IN [facility] DIANA LEE MD Feb 17, 2017 10:38
[2017-02-17] MEDS ORDERED: LIDOCAINE 1%/EPI 1:100,000 20 ML VIAL. ONE (12:22)
[2017-02-17] MEDS ORDERED: HEPARIN for IV BOLUS 10,000 UNIT/10 ML VIAL. ONE (12:22)
--- NOTE | 2017-02-17 13:29 | PDOC ---
Objective: Objective: Reviewed other notes. 1 stool charted. Vital Signs: Vital Signs Date Time Temp Pulse Resp B/P (MAP) Pulse Ox O2 Delivery O2 Flow Rate FiO2 02/17/17 11:00 98.3 54 20 137/74 (95) 96 Room Air 98.3 Labs: Laboratory Tests Test 02/16/17 18:19 02/16/17 20:55 02/17/17 04:45 02/17/17 07:46 Glucose (Fingerstick) 169 mg/dL 202 mg/dL 155 mg/dL Total Bilirubin 0.2 mg/dL Direct Bilirubin 0.2 mg/dL Aspartate Amino Transf (AST/SGOT) 18 U/L Alanine Aminotransferase (ALT/SGPT) 24 U/L Alkaline Phosphatase 176 U/L Total Protein 5.6 g/dL Albumin 2.6 g/dL Test 02/17/17 12:00 Glucose (Fingerstick) 155 mg/dL PE: GEN: NAD NEURO/PSYCH: asleep, did not awaken A/P: CHF, CKD -now on HD Anemia -Hgb stable on IV iron and PO PPI, last EGD/colon 2014 Diarrhea -C Diff neg 01/31, has Imodium TID PRN -- No new GI recs. ANALI JOHNSON Feb 17, 2017 13:29
[2017-02-17] MEDS ORDERED: fentaNYL PF VIAL 250 MCG/5 ML VIAL ONE (13:45)
[2017-02-17] MEDS ORDERED: MIDAZOLAM HCL/PF 5 MG/5 ML VIAL. ONE (13:45)
[2017-02-17] MEDS ORDERED: MIDAZOLAM HCL/PF 5 MG/5 ML VIAL. IV ONE (14:00)
[2017-02-17] MEDS ORDERED: LIDOCAINE 1%/EPI 1:100,000 20 ML VIAL. INJ ONE (14:00)
[2017-02-17] MEDS ORDERED: fentaNYL PF VIAL 250 MCG/5 ML VIAL IV ONE (14:00)
--- NOTE | 2017-02-17 14:39 | PDOC ---
MODERATE SEDATION ASSESSMENT RISKS/ALTERNATIVES Risks/Alternatives Risks and alternatives of this type of sedation and procedure discussed with: RISK/ALTERNATIVES: Patient H & P ON CHART H & P H & P on chart and reviewed for co-morbid conditions and appropriate labs. H&P ON CHART: Yes STATUS PREG STATUS ASSESSED: N/A MEDS/ALLERGIES REVIEWED Meds/Allergies Reviewed Medications and Allergies including time and route of recently administered narcotics and sedatives. MEDS/ALLERGIES REVIEWED: Yes ASA RATING ASA RATING: III AIRWAY ASSESSMENT Airway Assessment Airway patency, oral function limitations, presence of caps, crowns, dentures, partials, and ability to extend neck assessed. AIRWAY ASSESSMENT: Yes MALLAMPATI SCORE MALLAMPATI SCORE: III PRE-SEDATION ASSESSMENT PRE-SEDATION ASSESSMENT: Yes DANY PRADO MD Feb 17, 2017 14:39
--- NOTE | 2017-02-17 14:42 | PDOC ---
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 Needs ongoing HD. Conversion from temp to tunneled HDC requested by Renal. Post-Procedure Diagnosis Post-Procedure Diagnosis Same Procedure Performed Procedure Performed Removal rt IJ temp HDC Sono/fluoro guided rt IJ tunneled HDC insertion Type of Anesthesia Type of Anesthesia Local + Mod sedation Estimated Blood Loss EBL: Minimal Specimens Specimans 14F 20cm RT IJ Schon temp HDC removed and discarded Drain/Tubes Drains/Tubes Rt IJ 15.5F 28cm DuraMax tunneled HDC inserted Condition of Patient Condition of Patient Stable. No apparent complication. Disposition Disposition From IR return to 258. OK to use new tunneled HDC. F/u with Renal. Full report to follow. DANY PRADO MD Feb 17, 2017 14:42
--- NOTE | 2017-02-17 16:33 | RAD ---
Removal of right IJ temporary hemodialysis catheter Ultrasound and fluoro guided placement of right IJ tunneled hemodialysis catheter Indication: 66-year-old female with new end-stage renal disease. She needs ongoing hemodialysis. Conversion from temporary to tunneled hemodialysis catheter has been requested by renal. Fluoro time: 0.4 minutes Kerma-Area Product: 2 Gycm2 Moderate sedation: 22 minutes moderate sedation was provided utilizing a total of 1 mg Versed and 50 mcg fentanyl, IV. The patient was appropriately monitored by a qualified independent observer throughout the time of moderate sedation. Antibiotic: A single dose of Ancef was administered within 1 hour of the procedure start time. Sterility: All elements of maximal sterile barrier technique, hand hygiene, skin preparation, and, if ultrasound was used, sterile ultrasound technique were followed. Procedure: Informed consent was obtained from the patient. She was placed supine on the angiography table. Preliminary ultrasound examination of right neck revealed continued wide patency of right internal jugular vein, which was documented with a hard copy ultrasound image. The indwelling right IJ 14 Afghan 20 cm Schon temporary hemodialysis catheter was then easily removed utilizing gentle traction. Hemostasis was achieved with manual pressure over right internal jugular vein. Right neck and upper chest were then prepped and draped in the usual sterile fashion, utilizing all elements of maximal sterile barrier technique, as described above. Moderate sedation was provided with IV Versed and Fentanyl. 1 gram Ancef was given IV, prophylactically. Using aseptic technique and local anesthesia, a small skin incision was made lateral to right internal jugular vein, just above clavicle. Using aseptic technique, local anesthesia, and direct sterile ultrasound guidance, a micropuncture needle was successfully introduced into right internal jugular vein. The micropuncture needle was then exchanged over a microguidewire for a micropuncture sheath, through which an Amplatz wire was advanced into IVC, under fluoroscopic control. A second small skin incision was then made along upper anterior aspect of right chest. A subcutaneous tunnel was then fashioned between the right chest and supraclavicular incisions. A 15.5 F 28 cm Dura Max dialysis catheter was pulled through the subcutaneous tunnel from inferior to superior, utilizing the tunneling device provided. The right IJ venostomy tract was then sequentially dilated and the 15.5 Afghan dialysis catheter was easily advanced centrally through a 16 Afghan peel-away sheath, and was positioned with its tip at the level of upper-mid right atrium utilizing fluoroscopic guidance. This catheter was demonstrated to flush and aspirate normally, was packed, and was secured at the right chest exit site utilizing 2-0 Prolene and sterile dressing. The small supraclavicular incision was closed with 4-0 Vicryl, Steri-Strips, and sterile dressing. Patient tolerated the procedure well without apparent complication. Satisfactory position of the dialysis catheter was confirmed with a single fluoroscopic spot image. Impression: Successful, uneventful ultrasound and fluoro guided placement of right IJ 15.5 F 28 cm Dura Max tunneled hemodialysis catheter, following removal of right IJ 14 Afghan 20 cm Schon temporary hemodialysis catheter, as described.
[2017-02-17] MEDS ORDERED: DARBEPOETIN ALFA 60 MCG/0.3 ML DISP.SYRIN. SQ SCH (21:00)
[2017-02-17] MEDS: SERTRALINE 25 MG TABLET. PO SCH (22:08)
[2017-02-17] MEDS: INSULIN DETEMIR 300 UNITS/3 ML INSULN.PEN. SQ SCH (22:08)
[2017-02-18] MEDS: HEPARIN PF for SUB-Q USE 5,000 UNIT/0.5 ML VIAL. SQ SCH ×4 (00:02→20:26)
[2017-02-18 03:15] VITALS: BP 128/70
[2017-02-18 03:52] LABS: HEMATOCRIT 29.9 % (36.0-47.0); HEMOGLOBIN 9.6 g/dL (12.0-15.5); RED BLOOD COUNT 3.38 x10^6/uL (3.50-5.40); RED CELL DISTRIBUTION WIDTH 15.3 % (11.5-14.5); WHITE BLOOD COUNT 8.9 x10^3/uL (4.0-11.0)
[2017-02-18 04:10] LABS: CALCIUM 8.5 mg/dL (8.5-10.1); CREATININE 3.4 mg/dL (0.6-1.0); GFR 13.4; POTASSIUM 4.7 mmol/L (3.5-5.1)
[2017-02-18 07:00] VITALS: BP 121/64
[2017-02-18] MEDS: INSULIN ASPART 300 UNITS/3 ML INSULN.PEN SQ SCH ×6 (07:30→18:20)
[2017-02-18] MEDS: CYCLOBENZAPRINE 10 MG TABLET. PO SCH ×2 (09:00→20:24)
[2017-02-18] MEDS: GABAPENTIN 400 MG CAPSULE. PO SCH ×2 (09:00→20:24)
[2017-02-18] MEDS: METOPROLOL TART IMMED RELEASE 25 MG TABLET. PO SCH ×2 (09:00→20:25)
[2017-02-18] MEDS: DICLOFENAC SODIUM 1% TOPICAL GEL 100GM TUBE. TP SCH ×2 (09:00→20:43)
[2017-02-18] MEDS ORDERED: IV NORMAL SALINE 1000ML BAG 1,000 ML IV PRN (09:01)
[2017-02-18] MEDS ORDERED: diphenhydrAMINE 50 MG/ML VIAL IV PRN ×2 (09:15)
[2017-02-18] MEDS ORDERED: DIALYSIS PATIENT. MC PRN (09:15)
[2017-02-18] MEDS ORDERED: 0.9 % SODIUM CHLORIDE 10 ML DISP.SYRIN. IV PRN ×2 (09:15)
--- NOTE | 2017-02-18 10:55 | PDOC ---
PROGRESS NOTES Subjective Subjective No new complaints. Objective Objective Vital Signs Date Time Temp Pulse Resp B/P (MAP) Pulse Ox O2 Delivery O2 Flow Rate FiO2 02/18/17 08:16 Room Air 02/18/17 07:00 98.1 58 18 121/64 (83) 94 98.1 02/17/17 14:00 2.0 Intake and Output 02/18/17 07:00 Intake Total 840 ml Output Total 500 ml Balance 340 ml Intake Oral 840 ml Output Urine Total 500 ml Physical Exam Physical Exam She is resting comfortably on dialysis table. Plan Plan of Care Agree with plans for SNF transfer. Comment Review of Relevant I have reviewed the following items kai (where applicable) has been applied. Labs Laboratory Tests Test 02/16/17 12:08 02/16/17 18:19 02/16/17 20:55 02/17/17 04:45 Glucose (Fingerstick) 153 mg/dL (70-99) 169 mg/dL (70-99) 202 mg/dL (70-99) Total Bilirubin 0.2 mg/dL (0.2-1.0) Direct Bilirubin 0.2 mg/dL (0.0-0.2) Aspartate Amino Transf (AST/SGOT) 18 U/L (15-37) Alanine Aminotransferase (ALT/SGPT) 24 U/L (14-59) Alkaline Phosphatase 176 U/L (46-116) Total Protein 5.6 g/dL (6.4-8.2) Albumin 2.6 g/dL (3.4-5.0) Hepatitis B Core Total Antibody Negative (Negative) Test 02/17/17 07:46 02/17/17 12:00 02/17/17 16:37 02/17/17 21:03 Glucose (Fingerstick) 155 mg/dL (70-99) 155 mg/dL (70-99) 265 mg/dL (70-99) 296 mg/dL (70-99) Test 02/18/17 03:25 02/18/17 07:40 White Blood Count 8.9 x10^3/uL (4.0-11.0) Red Blood Count 3.38 x10^6/uL (3.50-5.40) Hemoglobin 9.6 g/dL (12.0-15.5) Hematocrit 29.9 % (36.0-47.0) Mean Corpuscular Volume 89 fL (79-100) Mean Corpuscular Hemoglobin 28 pg (25-35) Mean Corpuscular Hemoglobin Concent 32 g/dL (31-37) Red Cell Distribution Width 15.3 % (11.5-14.5) Platelet Count 178 x10^3/uL (140-400) Sodium Level 142 mmol/L (136-145) Potassium Level 4.7 mmol/L (3.5-5.1) Chloride Level 105 mmol/L (98-107) Carbon Dioxide Level 30 mmol/L (21-32) Anion Gap 7 (6-14) Blood Urea Nitrogen 51 mg/dL (7-20) Creatinine 3.4 mg/dL (0.6-1.0) Estimated GFR (Cockcroft-Gault) 13.4 Glucose Level 258 mg/dL (70-99) Calcium Level 8.5 mg/dL (8.5-10.1) Glucose (Fingerstick) 224 mg/dL (70-99) Laboratory Tests Test 02/17/17 12:00 02/17/17 16:37 02/17/17 21:03 02/18/17 03:25 Glucose (Fingerstick) 155 mg/dL (70-99) 265 mg/dL (70-99) 296 mg/dL (70-99) White Blood Count 8.9 x10^3/uL (4.0-11.0) Red Blood Count 3.38 x10^6/uL (3.50-5.40) Hemoglobin 9.6 g/dL (12.0-15.5) Hematocrit 29.9 % (36.0-47.0) Mean Corpuscular Volume 89 fL (79-100) Mean Corpuscular Hemoglobin 28 pg (25-35) Mean Corpuscular Hemoglobin Concent 32 g/dL (31-37) Red Cell Distribution Width 15.3 % (11.5-14.5) Platelet Count 178 x10^3/uL (140-400) Sodium Level 142 mmol/L (136-145) Potassium Level 4.7 mmol/L (3.5-5.1) Chloride Level 105 mmol/L (98-107) Carbon Dioxide Level 30 mmol/L (21-32) Anion Gap 7 (6-14) Blood Urea Nitrogen 51 mg/dL (7-20) Creatinine 3.4 mg/dL (0.6-1.0) Estimated GFR (Cockcroft-Gault) 13.4 Glucose Level 258 mg/dL (70-99) Calcium Level 8.5 mg/dL (8.5-10.1) Test 02/18/17 07:40 Glucose (Fingerstick) 224 mg/dL (70-99) Microbiology 02/08/17 Gram Stain - Final, Complete Medications Current Medications Zolpidem Tartrate (Ambien) 5 mg PRN QHS PRN PO INSOMNIA, MAY REPEAT IN 1HR Last administered on 02/09/17 21:49; Start 01/29/17 at 18:45 Oxycodone HCl (Roxicodone) 5 mg PRN Q3HRS PRN PO BREAKTHROUGH PAIN Last administered on 02/17/17 22:19; Start 01/29/17 at 18:45 Acetaminophen (Tylenol) 650 mg PRN Q6HRS PRN PO Headaches, Temp > 101.5F Last administered on 02/08/17 21:24; Start 01/29/17 at 18:45 Ibuprofen (Motrin) 400 mg PRN Q6HRS PRN PO MILD PAIN; Start 01/29/17 at 18:45; Stop 02/05/17 at 09:24; Status DC Docusate Sodium (Colace) 100 mg BID PO Last administered on 02/01/17 08:42; Start 01/29/17 at 21:00; Stop 02/02/17 at 11:08; Status DC Magnesium Hydroxide (Milk Of Magnesia) 2,400 mg PRN Q12HR PRN PO CONSTIPATION; Start 01/29/17 at 18:45 Lactulose 20 gm PRN Q12HR PRN PO CONSTIPATION; Start 01/29/17 at 18:45; Stop at 09:12; Status DC Bisacodyl (Dulcolax Supp) 10 mg PRN DAILY PRN [place] CONSTIPATION; Start 01/29/17 at 18:45; Stop 02/02/17 at 11:08; Status DC Enoxaparin Sodium (Lovenox 40mg Syringe) 40 mg Q12HR SQ Last administered on 21:09; Start 01/29/17 at 22:00; Stop 01/31/17 at 07:12; Status DC Alprazolam (Xanax) 0.25 mg QHS PRN PO ANXIETY / AGITATION Last administered on 02/12/17 21:20; Start 01/29/17 at 18:45 Carvedilol (Coreg) 12.5 mg BIDWMEALS PO Last administered on 01/29/17 21:51; Start 01/29/17 at 19:00; Stop 01/30/17 at 11:28; Status DC Cyclobenzaprine HCl (Flexeril) 10 mg BID PO Last administered on 02/17/17 22: 08; Start 01/29/17 at 21:00 Fluconazole (Diflucan) 100 mg DAILY PO Last administered on 02/12/17 08:03; Start 01/30/17 at 09:00; Stop 02/12/17 at 09:25; Status DC Furosemide (Lasix) 40 mg BID92 PO ; Start 01/30/17 at 09:00; Stop 01/30/17 at 09 :00; Status DC Hydralazine HCl (Apresoline) 25 mg BID PO Last administered on 02/09/17 08:30; Start 01/29/17 at 21:00; Stop 02/11/17 at 13:26; Status DC Acetaminophen/ Hydrocodone Bitart (Lortab 5/325) 1 tab PRN Q6HRS PRN PO MILD PAIN Last administered on 02/09/17 21:52; Start 01/29/17 at 18:45; Stop 02/11/17 at 09:12; Status DC Lisinopril (Prinivil) 40 mg DAILY PO Last administered on 02/11/17 10:18; Start 01/30/17 at 09:00; Stop 02/11/17 at 13:25; Status DC Oxycodone/ Acetaminophen (Percocet 10/325) 1 tab PRN Q6HRS PRN PO MODERATE- SEVERE PAIN Last administered on 02/10/17 13:11; Start 01/29/17 at 18:45 Tramadol HCl (Ultram) 100 mg BID PO Last administered on 01/29/17 21:50; Start 01/29/17 at 21:00; Stop 01/30/17 at 11:51; Status DC Vitamin D (Vitamin D3) 5,000 unit DAILY PO Last administered on 02/17/17 08:25 ; Start 01/30/17 at 09:00 Gabapentin (Neurontin) 300 mg PRN DAILY PRN PO NERVE PAIN Last administered on 02/09/17 21:51; Start 01/29/17 at 21:00 Glimepiride (Amaryl) 4 mg BIDWMEALS PO Last administered on 02/08/17 09:10; Start 01/30/17 at 09:00; Stop 02/09/17 at 09:09; Status DC Insulin Detemir (Levemir) 40 units QHS SQ Last administered on 01/29/17 22:01 ; Start 01/29/17 at 21:00; Stop 01/30/17 at 11:51; Status DC Insulin Aspart (NovoLOG) 50 units TIDAC SQ Last administered on 01/29/17 22:00 ; Start 01/29/17 at 19:00; Stop 01/30/17 at 11:51; Status DC Non-Formulary Medication 1.2 mg DAILY SQ ; Start 01/30/17 at 09:00; Stop at 09:00; Status DC Pantoprazole Sodium (Protonix) 40 mg DAILYAC PO Last administered on 02/17/17 08:25; Start 01/30/17 at 07:30 Potassium Chloride (Klor-Con) 10 meq DAILYWBKFT PO Last administered on 08:59; Start 01/30/17 at 08:00; Stop 02/05/17 at 09:21; Status DC Insulin Aspart (NovoLOG) 0-9 UNITS TIDWMEALS SQ Last administered on 02/17/17 17:26; Start 01/30/17 at 08:00 Dextrose (Dextrose 50%-Water Syringe) 12.5 gm PRN Q15MIN PRN IV SEE COMMENTS; Start 01/29/17 at 18:45 Furosemide (Lasix) 40 mg 1X ONCE IVP Last administered on 01/29/17 21:52; Start 01/29/17 at 21:00; Stop 01/29/17 at 21:01; Status DC Furosemide (Lasix) 40 mg BID92 IVP Last administered on 01/30/17 11:01; Start 01/30/17 at 09:00; Stop 01/30/17 at 11:28; Status DC Lidocaine HCl (Xylocaine-Mpf 1% Vial) 2 ml STK-MED ONCE .ROUTE ; Start 01/29/17 at 20:37; Stop 01/29/17 at 20:38; Status DC Dextrose 250 ml @ 1,000 mls/hr 1X ONCE IV ; Start 01/30/17 at 07:45; Stop at 07:59; Status DC Glucose (Insta-Glucose) 15 gm PRN Q15MIN PRN PO LOW BLOOD SUGAR Last administered on 01/30/17 07:55; Start 01/30/17 at 08:00 Glucose (Insta-Glucose) 15 gm STK-MED ONCE .ROUTE ; Start 01/30/17 at 07:52; Stop 01/30/17 at 07:53; Status DC Lidocaine HCl (Xylocaine-Mpf 1% Vial) 2 ml STK-MED ONCE .ROUTE ; Start 01/29/17 at 21:00; Stop 01/30/17 at 09:01; Status DC Furosemide (Lasix) 40 mg DAILY IVP Last administered on 02/03/17 08:39; Start 01/31/17 at 09:00; Stop 02/03/17 at 15:50; Status DC Aspirin (Ecotrin) 81 mg [id number] PO Last administered on 02/17/17 08:25; Start 01/30/17 at 12:30 Insulin Detemir (Levemir) 25 units QHS SQ Last administered on 02/02/17 20:54 ; Start 01/30/17 at 21:00; Stop 02/03/17 at 11:09; Status DC Gabapentin (Neurontin) 400 mg BID PO Last administered on 02/17/17 22:08; Start 01/31/17 at 09:00 Gabapentin (Neurontin) 100 mg 1X ONCE PO Last administered on 01/31/17 01:56 ; Start 01/31/17 at 02:00; Stop 01/31/17 at 02:01; Status DC Enoxaparin Sodium (Lovenox 40mg Syringe) 40 mg QHS SQ Last administered on 02/03 20:32; Start 01/31/17 at 21:00; Stop 02/04/17 at 09:32; Status DC Methylprednisolone Acetate (DEPO-Medrol 40MG VIAL) 40 mg 1X ONCE IM Last administered on 02/01/17 13:30; Start 02/01/17 at 13:30; Stop 02/01/17 at 13:31 ; Status DC Lidocaine/Sodium Bicarbonate (Buffered Lidocaine 1%) 20 ml 1X ONCE IJ Last administered on 02/01/17 13:30; Start 02/01/17 at 13:30; Stop 02/01/17 at 13:31 ; Status DC Labetalol HCl (Normodyne) 20 mg PRN Q2HR PRN IVP HYPERTENSION, SEE COMMENTS Last administered on 02/01/17 23:59; Start 02/01/17 at 23:30; Stop 02/03/17 at 15:47; Status DC Insulin Aspart (NovoLOG) 10 units TIDAC SQ Last administered on 02/06/17 07:30 ; Start 02/02/17 at 11:30; Stop 02/07/17 at 13:06; Status DC Insulin Aspart (NovoLOG VIAL) 15 unit 1X ONCE SQ ; Start 02/02/17 at 08:45; Stop 02/02/17 at 08:46; Status Cancel Insulin Aspart (NovoLOG) 15 units 1X ONCE SQ Last administered on 02/02/17 08 :42; Start 02/02/17 at 08:45; Stop 02/02/17 at 08:46; Status DC Loperamide HCl (Imodium) 2 mg PRN Q15MIN PRN PO DIARRHEA Last administered on 09:43; Start 02/02/17 at 11:15; Stop 02/03/17 at 12:31; Status DC Loperamide HCl (Imodium) 2 mg PRN Q15MIN PRN PO DIARRHEA Last administered on 01:35; Start 02/02/17 at 12:45; Stop 02/04/17 at 14:00; Status DC Insulin Detemir (Levemir) 35 units QHS SQ Last administered on 02/06/17 20:58; Start 02/03/17 at 21:00; Stop 02/07/17 at 13:06; Status DC Metoprolol Tartrate (Lopressor) 12.5 mg BID PO Last administered on 02/17/17 22:10; Start 02/03/17 at 21:00 Furosemide (Lasix) 60 mg DAILY PO Last administered on 02/04/17 08:57; Start 02/04/17 at 09:00; Stop 02/04/17 at 14:34; Status DC Heparin Sodium (Porcine) (Heparin Sq) 5,000 unit Q8HRS SQ Last administered on 02/18/17 00:02; Start 02/04/17 at 14:00 Loperamide HCl (Imodium) 2 mg TID PO Last administered on 02/07/17 20:32; Start 02/04/17 at 14:00; Stop 02/09/17 at 10:50; Status DC Magnesium Sulfate/ Dextrose 50 ml @ 25 mls/hr PRN DAILY PRN IV for Mag < 1.7 on am labs; Start 02/04/17 at 14:30; Stop 02/05/17 at 10:05; Status DC Furosemide 100 mg/ Sodium Chloride 100 ml @ 0 mls/hr CONT PRN IV SEE I/O RECORD Last administered on 02/04/17 15:59; Start 02/04/17 at 14:30; Stop at 09:27; Status DC Acetylcysteine (Mucomyst 20% Oral Solution) 1,200 mg BID PO Last administered on 02/06/17 20:49; Start 02/05/17 at 09:00; Stop 02/07/17 at 08:59; Status DC Sodium Polystyrene Sulfonate (Kayexalate) 30 gm 1X ONCE PO Last administered on 02/06/17 09:49; Start 02/06/17 at 09:30; Stop 02/06/17 at 09:31; Status DC Dextrose 10 ml 1X ONCE IV Last administered on 02/06/17 09:56; Start 02/06/17 at 09:30; Stop 02/06/17 at 09:31; Status DC Insulin Human Regular (NovoLIN R VIAL) 10 unit 1X ONCE IV Last administered on 02/06/17 09:59; Start 02/06/17 at 09:30; Stop 02/06/17 at 09:31; Status DC Heparin Sodium/ Sodium Chloride 500 ml @ As Directed STK-MED ONCE .ROUTE ; Start 02/06/17 at 10:10; Stop 02/06/17 at 10:11; Status DC Lidocaine HCl 20 ml STK-MED ONCE .ROUTE ; Start 02/06/17 at 10:10; Stop 02/06/17 at 10:11; Status DC Fentanyl Citrate (Fentanyl 2ml Vial) 100 mcg STK-MED ONCE .ROUTE ; Start at 10:39; Stop 02/06/17 at 10:40; Status DC Midazolam HCl (Versed) 2 mg STK-MED ONCE .ROUTE ; Start 02/06/17 at 10:39; Stop 02/06/17 at 10:40; Status DC Heparin Sodium/ Sodium Chloride 1,000 unit 1X ONCE IART Last administered on 11:10; Start 02/06/17 at 11:15; Stop 02/06/17 at 11:16; Status DC Midazolam HCl (Versed) 1 mg 1X ONCE IV Last administered on 02/06/17 11:11; Start 02/06/17 at 11:15; Stop 02/06/17 at 11:16; Status DC Fentanyl Citrate (Fentanyl 2ml Vial) 50 mcg 1X ONCE IV Last administered on 11:11; Start 02/06/17 at 11:15; Stop 02/06/17 at 11:16; Status DC Lidocaine HCl 20 ml 1X ONCE IJ Last administered on 02/06/17 11:10; Start 02/06 at 11:15; Stop 02/06/17 at 11:16; Status DC Sodium Chloride (Normal Saline Flush) 3 ml QSHIFT PRN IV AFTER MEDS AND BLOOD DRAWS; Start 02/06/17 at 11:15; Status Cancel Nitroglycerin (Nitrostat) 0.4 mg PRN Q5MIN PRN SL CHEST PAIN; Start 02/06/17 at 11:15 Iron Sucrose 200 mg/Sodium Chloride 110 ml @ 55 mls/hr 3X/WEEK IV Last administered on 02/06/17 16:30; Start 02/06/17 at 13:00; Stop 02/11/17 at 09:12; Status DC Furosemide 100 mg/ Sodium Chloride 100 ml @ 0 mls/hr CONT PRN IV SEE I/O RECORD Last administered on 02/10/17 12:59; Start 02/06/17 at 13:30; Stop at 09:12; Status DC Insulin Detemir (Levemir) 20 units QHS SQ ; Start 02/07/17 at 21:00; Stop at 09:08; Status DC Furosemide (Lasix) 20 mg 1X ONCE IVP ; Start 02/07/17 at 13:30; Stop 02/07/17 at 13:31; Status Cancel Diclofenac Sodium (Voltaren) 1 katia BID TP Last administered on 02/17/17 22:09 ; Start 02/08/17 at 13:30 Lidocaine HCl 16 ml/Sodium Bicarbonate 4 meq/ Miscellaneous 20 ml @ 20 mls/hr 1X ONCE ID ; Start 02/09/17 at 06:00; Stop 02/09/17 at 06:59; Status UNV Lidocaine HCl 10 ml 1X ONCE INJ Last administered on 02/08/17 15:44; Start 02/08/17 at 14:00; Stop 02/08/17 at 14:01; Status DC Amlodipine Besylate (Norvasc) 10 mg DAILY PO Last administered on 02/17/17 08: 26; Start 02/09/17 at 09:00 Amlodipine Besylate (Norvasc) 10 mg 1X ONCE PO Last administered on 02/08/17 15:43; Start 02/08/17 at 16:00; Stop 02/08/17 at 16:01; Status DC Insulin Detemir (Levemir) 12 units QHS SQ Last administered on 02/10/17 21:02; Start 02/09/17 at 21:00; Stop 02/11/17 at 10:15; Status DC Ceftriaxone Sodium 1 gm/ Sodium Chloride 50 ml @ 100 mls/hr Q24H IV Last administered on 02/09/17 11:41; Start 02/09/17 at 10:00; Stop 02/10/17 at 09:25; Status DC Loperamide HCl (Imodium) 2 mg PRN TID PRN PO if diarrhea recurs Last administered on 02/17/17 08:25; Start 02/09/17 at 11:00 Lidocaine HCl (Xylocaine-Mpf 1% Vial) 2 ml STK-MED ONCE .ROUTE ; Start 02/10/17 at 06:35; Stop 02/10/17 at 06:36; Status DC Prednisone (Prednisone) 60 mg 1X ONCE PO Last administered on 02/10/17 09:53; Start 02/10/17 at 09:30; Stop 02/10/17 at 09:41; Status DC Prednisone (Prednisone) 40 mg DAILY PO Last administered on 02/12/17 08:02; Start 02/11/17 at 09:00; Stop 02/12/17 at 12:09; Status DC Colchicine (Colcrys) 1.2 mg 1X ONCE PO Last administered on 02/10/17 09:53; Start 02/10/17 at 09:30; Stop 02/10/17 at 09:41; Status DC Colchicine (Colcrys) 0.6 mg DAILY PO ; Start 02/11/17 at 09:00; Stop 02/11/17 at 09:00; Status DC Lidocaine HCl 1 ml STK-MED ONCE .ROUTE ; Start 02/11/17 at 09:38; Stop 02/11/17 at 09:39; Status DC Insulin Detemir (Levemir) 20 units QHS SQ Last administered on 02/17/17 22:08 ; Start 02/11/17 at 21:00 Insulin Aspart (NovoLOG) 15 units 1X ONCE SQ Last administered on 02/11/17 10: 15; Start 02/11/17 at 10:15; Stop 02/11/17 at 10:16; Status DC Insulin Aspart (NovoLOG) 8 units TIDAC SQ Last administered on 02/17/17 17:25 ; Start 02/11/17 at 11:30 Glycerin (Sani-Supp Adult) 1 supp 1X ONCE MN Last administered on 02/11/17 16: 37; Start 02/11/17 at 16:15; Stop 02/11/17 at 16:16; Status DC Prednisone (Prednisone) 20 mg DAILY PO Last administered on 02/17/17 08:25; Start 02/12/17 at 12:00 Sodium Chloride 500 ml @ 100 mls/hr 1X ONCE IV Last administered on 02/12/17 13:07; Start 02/12/17 at 12:30; Stop 02/12/17 at 17:29; Status DC Sertraline HCl (Zoloft) 25 mg QHS PO Last administered on 02/17/17 22:08; Start 02/12/17 at 21:00 Heparin Sodium (Porcine) (Heparin Sodium) 10,000 unit STK-MED ONCE .ROUTE ; Start 02/13/17 at 12:13; Stop 02/13/17 at 12:14; Status DC Lidocaine/Sodium Bicarbonate (Buffered Lidocaine 1%) 20 ml STK-MED ONCE IJ ; Start 02/13/17 at 12:13; Stop 02/13/17 at 12:14; Status DC Heparin Sodium/ Sodium Chloride 500 ml @ As Directed STK-MED ONCE .ROUTE ; Start 02/13/17 at 12:13; Stop 02/13/17 at 12:14; Status DC Heparin Sodium/ Sodium Chloride 1,000 unit 1X ONCE IART Last administered on 12:46; Start 02/13/17 at 12:45; Stop 02/13/17 at 12:46; Status DC Lidocaine/Sodium Bicarbonate (Buffered Lidocaine 1%) 3 ml 1X ONCE IJ Last administered on 02/13/17 12:46; Start 02/13/17 at 12:45; Stop 02/13/17 at 12:46; Status DC Heparin Sodium (Porcine) (Heparin Sodium) 2,500 unit 1X ONCE INT CAT Last administered on 02/13/17 12:46; Start 02/13/17 at 12:45; Stop 02/13/17 at 12:46; Status DC Sodium Chloride 1,000 ml @ 1,000 mls/hr Q1H PRN IV hypotension; Start 02/13/17 at 16:41; Stop 02/13/17 at 22:40; Status DC Diphenhydramine HCl (Benadryl) 25 mg 1X PRN PRN IV ITCHING; Start 02/13/17 at 16 :45; Stop 02/14/17 at 16:44; Status DC Diphenhydramine HCl (Benadryl) 25 mg 1X PRN PRN IV ITCHING; Start 02/13/17 at 16 :45; Stop 02/14/17 at 16:44; Status DC Sodium Chloride (Normal Saline Flush) 10 ml 1X PRN PRN IV AP catheter pack; Start 02/13/17 at 16:45; Stop 02/14/17 at 16:44; Status DC Sodium Chloride (Normal Saline Flush) 10 ml 1X PRN PRN IV TECHNICAL DESIGNER catheter pack; Start 02/13/17 at 16:45; Stop 02/14/17 at 16:44; Status DC Info (PHARMACY MONITORING -- do not chart) 1 each PRN DAILY PRN MC SEE COMMENTS ; Start 02/13/17 at 16:45 Sodium Chloride 1,000 ml @ 1,000 mls/hr Q1H PRN IV hypotension; Start 02/14/17 at 10:18; Stop 02/14/17 at 16:17; Status DC Sodium Chloride 1,000 ml @ 400 mls/hr Q2H30M PRN IV PATENCY; Start 02/14/17 at 10:18; Stop 02/14/17 at 22:17; Status DC Info (PHARMACY MONITORING -- do not chart) 1 each PRN DAILY PRN MC SEE COMMENTS ; Start 02/14/17 at 10:30; Status UNV Sodium Chloride 1,000 ml @ 1,000 mls/hr Q1H PRN IV hypotension; Start 02/16/17 at 13:29; Stop 02/16/17 at 19:28; Status DC Sodium Chloride (Normal Saline Flush) 10 ml 1X PRN PRN IV AP catheter pack; Start 02/16/17 at 13:30; Stop 02/17/17 at 13:29; Status DC Sodium Chloride (Normal Saline Flush) 10 ml 1X PRN PRN IV TECHNICAL DESIGNER catheter pack; Start 02/16/17 at 13:30; Stop 02/17/17 at 13:29; Status DC Info (PHARMACY MONITORING -- do not chart) 1 each PRN DAILY PRN MC SEE COMMENTS ; Start 02/16/17 at 13:30; Status UNV Info (PHARMACY MONITORING -- do not chart) 1 each PRN DAILY PRN MC SEE COMMENTS ; Start 02/16/17 at 13:30; Status UNV Darbepoetin Marquez (Aranesp) 60 mcg WEEKLYHS SQ Last administered on 02/17/17t 22 :12; Start 02/17/17 at 21:00 Heparin Sodium (Porcine) (Heparin Sodium) 10,000 unit STK-MED ONCE .ROUTE ; Start 02/17/17 at 12:22; Stop 02/17/17 at 12:23; Status DC Heparin Sodium/ Sodium Chloride 500 ml @ As Directed STK-MED ONCE .ROUTE ; Start 02/17/17 at 12:22; Stop 02/17/17 at 12:23; Status DC Lidocaine/ Epinephrine (Xylocaine 1%-Epi 1:100,000) 20 ml STK-MED ONCE .ROUTE ; Start 02/17/17 at 12:22; Stop 02/17/17 at 12:23; Status DC Midazolam HCl (Versed) 5 mg STK-MED ONCE .ROUTE ; Start 02/17/17 at 13:45; Stop 02/17/17 at 13:46; Status DC Fentanyl Citrate (Fentanyl 5ml Vial) 250 mcg STK-MED ONCE .ROUTE ; Start at 13:45; Stop 02/17/17 at 13:46; Status DC Cefazolin Sodium 50 ml @ As Directed STK-MED ONCE IV ; Start 02/17/17 at 13:45; Stop 02/17/17 at 13:46; Status DC Heparin Sodium/ Sodium Chloride 1,000 unit 1X ONCE IART Last administered on 14:00; Start 02/17/17 at 14:00; Stop 02/17/17 at 14:09; Status DC Midazolam HCl (Versed) 5 mg 1X ONCE IV Last administered on 02/17/17 14:00; Start 02/17/17 at 14:00; Stop 02/17/17 at 14:09; Status DC Fentanyl Citrate (Fentanyl 5ml Vial) 250 mcg 1X ONCE IV Last administered on 14:00; Start 02/17/17 at 14:00; Stop 02/17/17 at 14:09; Status DC Cefazolin Sodium 50 ml @ 100 mls/hr 1X ONCE IV Last administered on 14:00; Start 02/17/17 at 14:00; Stop 02/17/17 at 14:29; Status DC Lidocaine/ Epinephrine (Xylocaine 1%-Epi 1:100,000) 20 ml 1X ONCE INJ Last administered on 02/17/17 14:00; Start 02/17/17 at 14:00; Stop 02/17/17 at 14:10 ; Status DC Heparin Sodium (Porcine) (Heparin Sodium) 2,600 unit 1X ONCE INT CAT Last administered on 02/17/17 14:15; Start 02/17/17 at 14:15; Stop 02/17/17 at 14:16 ; Status DC Sodium Chloride 1,000 ml @ 1,000 mls/hr Q1H PRN IV hypotension; Start 02/18/17 at 09:01; Stop 02/18/17 at 15:00 Diphenhydramine HCl (Benadryl) 25 mg 1X PRN PRN IV ITCHING; Start 02/18/17 at 09:15; Stop 02/19/17 at 09:14 Diphenhydramine HCl (Benadryl) 25 mg 1X PRN PRN IV ITCHING; Start 02/18/17 at 09:15; Stop 02/19/17 at 09:14 Sodium Chloride (Normal Saline Flush) 10 ml 1X PRN PRN IV AP catheter pack; Start 02/18/17 at 09:15; Stop 02/19/17 at 09:14 Sodium Chloride (Normal Saline Flush) 10 ml 1X PRN PRN IV TECHNICAL DESIGNER catheter pack; Start 02/18/17 at 09:15; Stop 02/19/17 at 09:14 Info (PHARMACY MONITORING -- do not chart) 1 each PRN DAILY PRN MC SEE COMMENTS ; Start 02/18/17 at 09:15; Status UNV Active Scripts Active Xanax (Alprazolam) 0.25 Mg Tablet 0.25 Mg PO QHS PRN Oxycodone-Acetaminophen 10-325 (Oxycodone Hcl/Acetaminophen) 1 Each Tablet 1 Tab PO PRN Q6HRS PRN Hydralazine Hcl 25 Mg Tablet 25 Mg PO BID Carvedilol 12.5 Mg Tablet 12.5 Mg PO BIDWMEALS Fluconazole 100 Mg Tablet 1 Tab PO DAILY Lasix (Furosemide) 40 Mg Tablet 40 Mg PO BID Reported Lisinopril 40 Mg Tablet 1 Tab PO DAILY Humalog (Insulin Lispro) 100 Unit/1 Ml Vial 50 Unit SQ TID Lortab 5-325 mg Tablet (Hydrocodone/Acetaminophen) 1 Each Tablet 1 Tab PO PRN Q6HRS PRN Levemir (Insulin Detemir) 100 Unit/1 Ml Vial 40 Unit SQ HS Victoza 3-Devon (Liraglutide) 0.6 Mg/0.1 Ml Pen.injctr 1.2 Mg SQ DAILY Gabapentin 300 Mg Capsule 1 Cap PO DAILY PRN Vitamin D3 (Cholecalciferol (Vitamin D3)) 5,000 Unit Tablet 1 Tab PO DAILY Glimepiride 4 Mg Tablet 1 Tab PO BID Tramadol Hcl 50 Mg Tablet 2 Tab PO BID Cyclobenzaprine Hcl 10 Mg Tablet 1 Tab PO BID Klor-Con 10 (Potassium Chloride) 10 Meq Tablet.er 1 Tab PO DAILY Omeprazole 20 Mg Capsule.dr 1 Cap PO DAILY Vitals/I & O Vital Sign - Last 24 Hours 02/17/17 02/17/17 02/17/17 02/17/17 11:00 14:00 14:24 14:53 Temp 98.3 98.3 Pulse 54 63 64 Resp 20 16 16 B/P (MAP) 137/74 (95) 130/75 (93) Pulse Ox 96 97 94 O2 Delivery Room Air Nasal Cannula Room Air O2 Flow Rate 2.0 02/17/17 02/17/17 02/17/17 02/17/17 15:00 15:00 15:16 15:31 Temp 98.9 98.9 Pulse 66 63 67 69 Resp 17 B/P (MAP) 128/66 (86) 124/99 (107) 118/83 (95) 153/94 (113) Pulse Ox 97 O2 Delivery Room Air 02/17/17 02/17/17 02/17/17 02/17/17 16:00 16:30 17:30 19:50 Temp 98.4 98.4 Pulse 62 60 59 61 Resp 20 B/P (MAP) 118/67 (84) 130/70 (90) 135/82 (99) 138/72 (94) Pulse Ox 92 O2 Delivery Room Air 02/17/17 02/17/17 02/17/17 02/17/17 20:00 22:10 22:19 23:19 Pulse 66 Resp 20 22 B/P (MAP) 132/68 O2 Delivery Room Air 02/17/17 02/18/17 02/18/17 02/18/17 23:33 03:15 07:00 08:16 Temp 98.1 97.8 98.1 98.1 97.8 98.1 Pulse 64 67 58 Resp 20 20 18 B/P (MAP) 160/87 (111) 128/70 (89) 121/64 (83) Pulse Ox 93 97 94 O2 Delivery Room Air Room Air Room Air Room Air Intake and Output 02/17/17 02/17/17 02/18/17 15:00 23:00 07:00 Intake Total 840 ml 0 ml Output Total 250 ml 250 ml Balance 590 ml -250 ml GABRIEL LAWS MD Feb 18, 2017 10:55
--- NOTE | 2017-02-18 11:21 | PDOC ---
Renal-Progress Notes Subjective Notes Notes NONE History of Present Illness Hx of present illness NO CHANGE Vitals Vitals Vital Signs Date Time Temp Pulse Resp B/P (MAP) Pulse Ox O2 Delivery O2 Flow Rate FiO2 02/18/17 08:16 Room Air 02/18/17 07:00 98.1 58 18 121/64 (83) 94 98.1 02/17/17 14:00 2.0 Weight Weight [ ] I.O. Intake and Output Intake and Output 02/18/17 07:00 Intake Total 840 ml Output Total 500 ml Balance 340 ml Intake Oral 840 ml Output Urine Total 500 ml Labs Labs Laboratory Tests Test 02/17/17 12:00 02/17/17 16:37 02/17/17 21:03 02/18/17 03:25 Glucose (Fingerstick) 155 mg/dL (70-99) 265 mg/dL (70-99) 296 mg/dL (70-99) White Blood Count 8.9 x10^3/uL (4.0-11.0) Red Blood Count 3.38 x10^6/uL (3.50-5.40) Hemoglobin 9.6 g/dL (12.0-15.5) Hematocrit 29.9 % (36.0-47.0) Mean Corpuscular Volume 89 fL (79-100) Mean Corpuscular Hemoglobin 28 pg (25-35) Mean Corpuscular Hemoglobin Concent 32 g/dL (31-37) Red Cell Distribution Width 15.3 % (11.5-14.5) Platelet Count 178 x10^3/uL (140-400) Sodium Level 142 mmol/L (136-145) Potassium Level 4.7 mmol/L (3.5-5.1) Chloride Level 105 mmol/L (98-107) Carbon Dioxide Level 30 mmol/L (21-32) Anion Gap 7 (6-14) Blood Urea Nitrogen 51 mg/dL (7-20) Creatinine 3.4 mg/dL (0.6-1.0) Estimated GFR (Cockcroft-Gault) 13.4 Glucose Level 258 mg/dL (70-99) Calcium Level 8.5 mg/dL (8.5-10.1) Test 02/18/17 07:40 Glucose (Fingerstick) 224 mg/dL (70-99) Micro Micro Microbiology 02/08/17 Gram Stain - Final, Complete Review of Systems Constitutional: yes: malaise, weakness, alert, oriented Ears/Nose/Throat: Yes: no symptom reported Pulmonary: Yes dyspnea Cardiovascular: Yes edema Gastrointestional: Yes: constipation Genitourinary: Yes: other (OLIGURIA) Musculoskeletal: Yes: muscle stiffness Skin: Yes no symptom reported Physical Exam General Appearance: no apparent distress Skin: warm Respiratory: bilateral CTA Abdomen: soft, N/T Extremities: edema Neurology: alert, oriented, follow commands Musculoskeletal: Osteoarthritis Assessment Assessment IMP NEW ESRD ANEMIA EDEMA CHF-COMPENSATED PLAN HD TODAY UF TO [facility] DIANA LEE MD Feb 18, 2017 11:21
--- NOTE | 2017-02-18 11:30 | PDOC3 ---
Discharge Summary Visit Information Date of Admission: January 29, 2017 Date of Discharge: Feb 18, 2017 Admitting Diagnosis Comment: new ESRD, anasarca - NEW HD 1. Acute-on chronic congestive heart failure, likely systolic versus diastolic or combined. 2. s/p RHC - 02/06/17- normal 2. Old lymphedema. 3. Obesity. 4. Diabetes type 2. Unknown Hgb A1c. WITH HYPOGLYCEMIA 6. JOSE on Chronic kidney disease, NOW OLIGURIC 7. Anemia of chronic disease. 8. Limited mobility, wheelchair-bound. 9. GOUT R knee s.p tap 11. Diarrhea resolved Brief Hospital Course Allergies Allergies Coded Allergies Type Severity Reaction Last Updated Verified No Known Drug Allergies 05/01/16 No Vital Signs Vital Signs Date Time Temp Pulse Resp B/P (MAP) Pulse Ox O2 Delivery O2 Flow Rate FiO2 02/18/17 08:16 Room Air 02/18/17 07:00 98.1 58 18 121/64 (83) 94 98.1 02/17/17 14:00 2.0 Lab Results Laboratory Tests Test 02/16/17 12:08 02/16/17 18:19 02/16/17 20:55 02/17/17 04:45 Glucose (Fingerstick) 153 mg/dL (70-99) 169 mg/dL (70-99) 202 mg/dL (70-99) Total Bilirubin 0.2 mg/dL (0.2-1.0) Direct Bilirubin 0.2 mg/dL (0.0-0.2) Aspartate Amino Transf (AST/SGOT) 18 U/L (15-37) Alanine Aminotransferase (ALT/SGPT) 24 U/L (14-59) Alkaline Phosphatase 176 U/L (46-116) Total Protein 5.6 g/dL (6.4-8.2) Albumin 2.6 g/dL (3.4-5.0) Hepatitis B Core Total Antibody Negative (Negative) Test 02/17/17 07:46 02/17/17 12:00 02/17/17 16:37 02/17/17 21:03 Glucose (Fingerstick) 155 mg/dL (70-99) 155 mg/dL (70-99) 265 mg/dL (70-99) 296 mg/dL (70-99) Test 02/18/17 03:25 02/18/17 07:40 White Blood Count 8.9 x10^3/uL (4.0-11.0) Red Blood Count 3.38 x10^6/uL (3.50-5.40) Hemoglobin 9.6 g/dL (12.0-15.5) Hematocrit 29.9 % (36.0-47.0) Mean Corpuscular Volume 89 fL (79-100) Mean Corpuscular Hemoglobin 28 pg (25-35) Mean Corpuscular Hemoglobin Concent 32 g/dL (31-37) Red Cell Distribution Width 15.3 % (11.5-14.5) Platelet Count 178 x10^3/uL (140-400) Sodium Level 142 mmol/L (136-145) Potassium Level 4.7 mmol/L (3.5-5.1) Chloride Level 105 mmol/L (98-107) Carbon Dioxide Level 30 mmol/L (21-32) Anion Gap 7 (6-14) Blood Urea Nitrogen 51 mg/dL (7-20) Creatinine 3.4 mg/dL (0.6-1.0) Estimated GFR (Cockcroft-Gault) 13.4 Glucose Level 258 mg/dL (70-99) Calcium Level 8.5 mg/dL (8.5-10.1) Glucose (Fingerstick) 224 mg/dL (70-99) Laboratory Tests Test 02/17/17 12:00 02/17/17 16:37 02/17/17 21:03 02/18/17 03:25 Glucose (Fingerstick) 155 mg/dL (70-99) 265 mg/dL (70-99) 296 mg/dL (70-99) White Blood Count 8.9 x10^3/uL (4.0-11.0) Red Blood Count 3.38 x10^6/uL (3.50-5.40) Hemoglobin 9.6 g/dL (12.0-15.5) Hematocrit 29.9 % (36.0-47.0) Mean Corpuscular Volume 89 fL (79-100) Mean Corpuscular Hemoglobin 28 pg (25-35) Mean Corpuscular Hemoglobin Concent 32 g/dL (31-37) Red Cell Distribution Width 15.3 % (11.5-14.5) Platelet Count 178 x10^3/uL (140-400) Sodium Level 142 mmol/L (136-145) Potassium Level 4.7 mmol/L (3.5-5.1) Chloride Level 105 mmol/L (98-107) Carbon Dioxide Level 30 mmol/L (21-32) Anion Gap 7 (6-14) Blood Urea Nitrogen 51 mg/dL (7-20) Creatinine 3.4 mg/dL (0.6-1.0) Estimated GFR (Cockcroft-Gault) 13.4 Glucose Level 258 mg/dL (70-99) Calcium Level 8.5 mg/dL (8.5-10.1) Test 02/18/17 07:40 Glucose (Fingerstick) 224 mg/dL (70-99) Brief Hospital Course Ms. Marques is a 66 old Caucasdian female admitted initially for SOA and worsening lymphedema, CHronic hx lymphedema and CHF causing multiple freq admits in the recent past, BUt this time was the longest one, 3 weeks in stay, needing lasix gtt and now eventually NEW HD which helped the anasarca and SOA, But couirse remarkable for developing gout left knee needing aspiration which showed MSU crystals. Treated with short dose colcrys and steroids PO bec of the renal failure. Also on echo had high PA pressures and R heart cath donw which showed normal PA pressures,. Pt now on new list of meds - see mAR - to stop lisinoril and lasix - on gabapentin and other pain meds and antidepressants for chronic issues Pt seen and examined [facility] ALBRECHT and Deborah TELLES done Signif time, complicated course/hosp stay disPO; [facility] ([facility] with new OP HD set up) Discharge Information Condition at Discharge: Improved, Stable Disposition/Orders: Other (SNU) Scheduled Carvedilol (Carvedilol), 12.5 MG PO BIDWMEALS Cholecalciferol (Vitamin D3) (Vitamin D3), 1 TAB PO DAILY, (Reported) Cyclobenzaprine Hcl (Cyclobenzaprine Hcl), 1 TAB PO BID, (Reported) Fluconazole (Fluconazole), 1 TAB PO DAILY Furosemide (Lasix), 40 MG PO BID Glimepiride (Glimepiride), 1 TAB PO BID, (Reported) Hydralazine Hcl (Hydralazine Hcl), 25 MG PO BID Insulin Detemir (Levemir), 40 UNIT SQ HS, (Reported) Insulin Lispro (Humalog), 50 UNIT SQ TID, (Reported) Liraglutide (Victoza 3-Devon), 1.2 MG SQ DAILY, (Reported) Lisinopril (Lisinopril), 1 TAB PO DAILY, (Reported) Omeprazole (Omeprazole), 1 CAP PO DAILY, (Reported) Potassium Chloride (Klor-Con 10), 1 TAB PO DAILY, (Reported) Tramadol Hcl (Tramadol Hcl), 2 TAB PO BID, (Reported) Scheduled PRN Alprazolam (Xanax), 0.25 MG PO QHS PRN for ANXIETY / AGITATION Gabapentin (Gabapentin), 1 CAP PO DAILY PRN for PAIN, (Reported) Hydrocodone/Acetaminophen (Lortab 5-325 mg Tablet), 1 TAB PO PRN Q6HRS PRN for PAIN, (Reported) Oxycodone Hcl/Acetaminophen (Oxycodone-Acetaminophen 10-325), 1 TAB PO PRN Q6HRS PRN for PAIN DHRUV LACEY MD Feb 18, 2017 11:30
--- NOTE | 2017-02-18 12:29 | PDOC ---
Subjective: Subjective: Loose stool a couple nights ago, taking Imodium, no stools today. Objective: Objective: Per RN - no GI concerns. Vital Signs: Vital Signs Date Time Temp Pulse Resp B/P (MAP) Pulse Ox O2 Delivery O2 Flow Rate FiO2 02/18/17 08:16 Room Air 02/18/17 07:00 98.1 58 18 121/64 (83) 94 98.1 02/17/17 14:00 2.0 Labs: Laboratory Tests Test 02/17/17 16:37 02/17/17 21:03 02/18/17 03:25 02/18/17 07:40 Glucose (Fingerstick) 265 mg/dL 296 mg/dL 224 mg/dL White Blood Count 8.9 x10^3/uL Red Blood Count 3.38 x10^6/uL Hemoglobin 9.6 g/dL Hematocrit 29.9 % Mean Corpuscular Volume 89 fL Mean Corpuscular Hemoglobin 28 pg Mean Corpuscular Hemoglobin Concent 32 g/dL Red Cell Distribution Width 15.3 % Platelet Count 178 x10^3/uL Sodium Level 142 mmol/L Potassium Level 4.7 mmol/L Chloride Level 105 mmol/L Carbon Dioxide Level 30 mmol/L Anion Gap 7 Blood Urea Nitrogen 51 mg/dL Creatinine 3.4 mg/dL Estimated GFR (Cockcroft-Gault) 13.4 Glucose Level 258 mg/dL Calcium Level 8.5 mg/dL PE: GEN: NAD, dialyzing LUNGS: CTAB HEART: RRR ABD: NABS, S/NT NEURO/PSYCH: A & O 3 A/P: CHF, ESRD on HD Anemia - stable Diarrhea - controlled w/ Imodium PRN -- Continue same per GI, DC plans in process. ANALI JOHNSON Feb 18, 2017 12:29
[2017-02-18] MEDS: CHOLECALCIFEROL (VITAMIN D3) 5,000 UNIT CAPSULE PO SCH (13:45)
[2017-02-18] MEDS: PANTOPRAZOLE 40 MG TABLET.DR. PO SCH (13:45)
[2017-02-18] MEDS: ASPIRIN ENTERIC COATED 81 MG TABLET.DR. PO SCH (13:45)
[2017-02-18] MEDS: predniSONE 20 MG TABLET PO SCH (13:45)
[2017-02-18] MEDS: amLODIPine BESYLATE 10 MG TABLET PO SCH (13:47)
[2017-02-18] MEDS: oxyCODONE IR 5 MG TABLET PO PRN (14:19)
[2017-02-18 15:00] VITALS: BP 152/57
[2017-02-18 19:15] VITALS: BP 121/91
[2017-02-18] MEDS: LOPERAMIDE 2 MG CAPSULE PO PRN (20:24)
[2017-02-18] MEDS: SERTRALINE 25 MG TABLET. PO SCH (20:24)
[2017-02-18] MEDS: INSULIN DETEMIR 300 UNITS/3 ML INSULN.PEN. SQ SCH (20:40)
[2017-02-18 23:15] VITALS: BP 109/61
[2017-02-19 03:15] VITALS: BP 125/63
[2017-02-19] MEDS: PANTOPRAZOLE 40 MG TABLET.DR. PO SCH (06:08)
[2017-02-19] MEDS: HEPARIN PF for SUB-Q USE 5,000 UNIT/0.5 ML VIAL. SQ SCH (06:13)
[2017-02-19 07:00] VITALS: BP 150/64
[2017-02-19] MEDS: INSULIN ASPART 300 UNITS/3 ML INSULN.PEN SQ SCH ×4 (07:30→11:36)
[2017-02-19] MEDS: DICLOFENAC SODIUM 1% TOPICAL GEL 100GM TUBE. TP SCH (09:00)
--- NOTE | 2017-02-19 10:53 | PDOC ---
PROGRESS NOTES Subjective Subjective She feels better. Objective Objective Vital Signs Date Time Temp Pulse Resp B/P (MAP) Pulse Ox O2 Delivery O2 Flow Rate FiO2 02/19/17 08:00 Room Air 02/19/17 07:00 98.2 63 18 150/64 (92) 97 98.2 02/18/17 20:30 2.0 Intake and Output 02/19/17 06:59 Intake Total 1080 ml Output Total 1075 ml Balance 5 ml Intake Oral 1080 ml Output Urine Total 1075 ml Physical Exam Physical Exam She is alert and comfortable supine in bed and she is doing better with her transfers. Plan Plan of Care To SNF when medically stable and arrangements are completed. Comment Review of Relevant I have reviewed the following items kai (where applicable) has been applied. Labs Laboratory Tests Test 02/17/17 12:00 02/17/17 16:37 02/17/17 21:03 02/18/17 03:25 Glucose (Fingerstick) 155 mg/dL (70-99) 265 mg/dL (70-99) 296 mg/dL (70-99) White Blood Count 8.9 x10^3/uL (4.0-11.0) Red Blood Count 3.38 x10^6/uL (3.50-5.40) Hemoglobin 9.6 g/dL (12.0-15.5) Hematocrit 29.9 % (36.0-47.0) Mean Corpuscular Volume 89 fL (79-100) Mean Corpuscular Hemoglobin 28 pg (25-35) Mean Corpuscular Hemoglobin Concent 32 g/dL (31-37) Red Cell Distribution Width 15.3 % (11.5-14.5) Platelet Count 178 x10^3/uL (140-400) Sodium Level 142 mmol/L (136-145) Potassium Level 4.7 mmol/L (3.5-5.1) Chloride Level 105 mmol/L (98-107) Carbon Dioxide Level 30 mmol/L (21-32) Anion Gap 7 (6-14) Blood Urea Nitrogen 51 mg/dL (7-20) Creatinine 3.4 mg/dL (0.6-1.0) Estimated GFR (Cockcroft-Gault) 13.4 Glucose Level 258 mg/dL (70-99) Calcium Level 8.5 mg/dL (8.5-10.1) Test 6/14/17 07:40 02/18/17 13:44 02/18/17 17:28 02/18/17 20:33 Glucose (Fingerstick) 224 mg/dL (70-99) 153 mg/dL (70-99) 316 mg/dL (70-99) 268 mg/dL (70-99) Test 02/19/17 07:45 Glucose (Fingerstick) 204 mg/dL (70-99) Laboratory Tests Test 02/18/17 13:44 02/18/17 17:28 02/18/17 20:33 02/19/17 07:45 Glucose (Fingerstick) 153 mg/dL (70-99) 316 mg/dL (70-99) 268 mg/dL (70-99) 204 mg/dL (70-99) Microbiology 02/08/17 Gram Stain - Final, Complete Medications Current Medications Zolpidem Tartrate (Ambien) 5 mg PRN QHS PRN PO INSOMNIA, MAY REPEAT IN 1HR Last administered on 02/09/17 21:49; Start 01/29/17 at 18:45 Oxycodone HCl (Roxicodone) 5 mg PRN Q3HRS PRN PO BREAKTHROUGH PAIN Last administered on 02/18/17 14:19; Start 01/29/17 at 18:45 Acetaminophen (Tylenol) 650 mg PRN Q6HRS PRN PO Headaches, Temp > 101.5F Last administered on 02/08/17 21:24; Start 01/29/17 at 18:45 Ibuprofen (Motrin) 400 mg PRN Q6HRS PRN PO MILD PAIN; Start 01/29/17 at 18:45; Stop 02/05/17 at 09:24; Status DC Docusate Sodium (Colace) 100 mg BID PO Last administered on 02/01/17 08:42; Start 01/29/17 at 21:00; Stop 02/02/17 at 11:08; Status DC Magnesium Hydroxide (Milk Of Magnesia) 2,400 mg PRN Q12HR PRN PO CONSTIPATION; Start 01/29/17 at 18:45 Lactulose 20 gm PRN Q12HR PRN PO CONSTIPATION; Start 01/29/17 at 18:45; Stop at 09:12; Status DC Bisacodyl (Dulcolax Supp) 10 mg PRN DAILY PRN OK CONSTIPATION; Start 01/29/17 at 18:45; Stop 02/02/17 at 11:08; Status DC Enoxaparin Sodium (Lovenox 40mg Syringe) 40 mg Q12HR SQ Last administered on 21:09; Start 01/29/17 at 22:00; Stop 01/31/17 at 07:12; Status DC Alprazolam (Xanax) 0.25 mg QHS PRN PO ANXIETY / AGITATION Last administered on 02/12/17 21:20; Start 01/29/17 at 18:45 Carvedilol (Coreg) 12.5 mg BIDWMEALS PO Last administered on 01/29/17 21:51; Start 01/29/17 at 19:00; Stop 01/30/17 at 11:28; Status DC Cyclobenzaprine HCl (Flexeril) 10 mg BID PO Last administered on 02/18/17 20: 24; Start 01/29/17 at 21:00 Fluconazole (Diflucan) 100 mg DAILY PO Last administered on 02/12/17 08:03; Start 01/30/17 at 09:00; Stop 02/12/17 at 09:25; Status DC Furosemide (Lasix) 40 mg BID92 PO ; Start 01/30/17 at 09:00; Stop 01/30/17 at 09 :00; Status DC Hydralazine HCl (Apresoline) 25 mg BID PO Last administered on 02/09/17 08:30; Start 01/29/17 at 21:00; Stop 02/11/17 at 13:26; Status DC Acetaminophen/ Hydrocodone Bitart (Lortab 5/325) 1 tab PRN Q6HRS PRN PO MILD PAIN Last administered on 02/09/17 21:52; Start 01/29/17 at 18:45; Stop 02/11/17 at 09:12; Status DC Lisinopril (Prinivil) 40 mg DAILY PO Last administered on 02/11/17 10:18; Start 01/30/17 at 09:00; Stop 02/11/17 at 13:25; Status DC Oxycodone/ Acetaminophen (Percocet 10/325) 1 tab PRN Q6HRS PRN PO MODERATE- SEVERE PAIN Last administered on 02/10/17 13:11; Start 01/29/17 at 18:45 Tramadol HCl (Ultram) 100 mg BID PO Last administered on 01/29/17 21:50; Start 01/29/17 at 21:00; Stop 01/30/17 at 11:51; Status DC Vitamin D (Vitamin D3) 5,000 unit DAILY PO Last administered on 02/18/17 13:45 ; Start 01/30/17 at 09:00 Gabapentin (Neurontin) 300 mg PRN DAILY PRN PO NERVE PAIN Last administered on 02/09/17 21:51; Start 01/29/17 at 21:00 Glimepiride (Amaryl) 4 mg BIDWMEALS PO Last administered on 02/08/17 09:10; Start 01/30/17 at 09:00; Stop 02/09/17 at 09:09; Status DC Insulin Detemir (Levemir) 40 units QHS SQ Last administered on 01/29/17 22:01 ; Start 01/29/17 at 21:00; Stop 01/30/17 at 11:51; Status DC Insulin Aspart (NovoLOG) 50 units TIDAC SQ Last administered on 01/29/17 22:00 ; Start 01/29/17 at 19:00; Stop 01/30/17 at 11:51; Status DC Non-Formulary Medication 1.2 mg DAILY SQ ; Start 01/30/17 at 09:00; Stop at 09:00; Status DC Pantoprazole Sodium (Protonix) 40 mg DAILYAC PO Last administered on 02/19/17 06:08; Start 01/30/17 at 07:30 Potassium Chloride (Klor-Con) 10 meq DAILYWBKFT PO Last administered on 08:59; Start 01/30/17 at 08:00; Stop 02/05/17 at 09:21; Status DC Insulin Aspart (NovoLOG) 0-9 UNITS TIDWMEALS SQ Last administered on 02/18/17 18:20; Start 01/30/17 at 08:00 Dextrose (Dextrose 50%-Water Syringe) 12.5 gm PRN Q15MIN PRN IV SEE COMMENTS; Start 01/29/17 at 18:45 Furosemide (Lasix) 40 mg 1X ONCE IVP Last administered on 01/29/17 21:52; Start 01/29/17 at 21:00; Stop 01/29/17 at 21:01; Status DC Furosemide (Lasix) 40 mg BID92 IVP Last administered on 01/30/17 11:01; Start 01/30/17 at 09:00; Stop 01/30/17 at 11:28; Status DC Lidocaine HCl (Xylocaine-Mpf 1% Vial) 2 ml STK-MED ONCE .ROUTE ; Start 01/29/17 at 20:37; Stop 01/29/17 at 20:38; Status DC Dextrose 250 ml @ 1,000 mls/hr 1X ONCE IV ; Start 01/30/17 at 07:45; Stop at 07:59; Status DC Glucose (Insta-Glucose) 15 gm PRN Q15MIN PRN PO LOW BLOOD SUGAR Last administered on 01/30/17 07:55; Start 01/30/17 at 08:00 Glucose (Insta-Glucose) 15 gm STK-MED ONCE .ROUTE ; Start 01/30/17 at 07:52; Stop 01/30/17 at 07:53; Status DC Lidocaine HCl (Xylocaine-Mpf 1% Vial) 2 ml STK-MED ONCE .ROUTE ; Start 01/29/17 at 21:00; Stop 01/30/17 at 09:01; Status DC Furosemide (Lasix) 40 mg DAILY IVP Last administered on 02/03/17 08:39; Start 01/31/17 at 09:00; Stop 02/03/17 at 15:50; Status DC Aspirin (Ecotrin) 81 mg DAILYWBKFT PO Last administered on 02/18/17 13:45; Start 01/30/17 at 12:30 Insulin Detemir (Levemir) 25 units QHS SQ Last administered on 02/02/17 20:54 ; Start 01/30/17 at 21:00; Stop 02/03/17 at 11:09; Status DC Gabapentin (Neurontin) 400 mg BID PO Last administered on 02/18/17 20:24; Start 01/31/17 at 09:00 Gabapentin (Neurontin) 100 mg 1X ONCE PO Last administered on 01/31/17 01:56 ; Start 01/31/17 at 02:00; Stop 01/31/17 at 02:01; Status DC Enoxaparin Sodium (Lovenox 40mg Syringe) 40 mg QHS SQ Last administered on 02/03 20:32; Start 01/31/17 at 21:00; Stop 02/04/17 at 09:32; Status DC Methylprednisolone Acetate (DEPO-Medrol 40MG VIAL) 40 mg 1X ONCE IM Last administered on 02/01/17 13:30; Start 02/01/17 at 13:30; Stop 02/01/17 at 13:31 ; Status DC Lidocaine/Sodium Bicarbonate (Buffered Lidocaine 1%) 20 ml 1X ONCE IJ Last administered on 02/01/17 13:30; Start 02/01/17 at 13:30; Stop 02/01/17 at 13:31 ; Status DC Labetalol HCl (Normodyne) 20 mg PRN Q2HR PRN IVP HYPERTENSION, SEE COMMENTS Last administered on 02/01/17 23:59; Start 02/01/17 at 23:30; Stop 02/03/17 at 15:47; Status DC Insulin Aspart (NovoLOG) 10 units TIDAC SQ Last administered on 02/06/17 07:30 ; Start 02/02/17 at 11:30; Stop 02/07/17 at 13:06; Status DC Insulin Aspart (NovoLOG VIAL) 15 unit 1X ONCE SQ ; Start 02/02/17 at 08:45; Stop 02/02/17 at 08:46; Status Cancel Insulin Aspart (NovoLOG) 15 units 1X ONCE SQ Last administered on 02/02/17 08 :42; Start 02/02/17 at 08:45; Stop 02/02/17 at 08:46; Status DC Loperamide HCl (Imodium) 2 mg PRN Q15MIN PRN PO DIARRHEA Last administered on 09:43; Start 02/02/17 at 11:15; Stop 02/03/17 at 12:31; Status DC Loperamide HCl (Imodium) 2 mg PRN Q15MIN PRN PO DIARRHEA Last administered on 01:35; Start 02/02/17 at 12:45; Stop 02/04/17 at 14:00; Status DC Insulin Detemir (Levemir) 35 units QHS SQ Last administered on 02/06/17 20:58; Start 02/03/17 at 21:00; Stop 02/07/17 at 13:06; Status DC Metoprolol Tartrate (Lopressor) 12.5 mg BID PO Last administered on 02/18/17 20:25; Start 02/03/17 at 21:00 Furosemide (Lasix) 60 mg DAILY PO Last administered on 02/04/17 08:57; Start 02/04/17 at 09:00; Stop 02/04/17 at 14:34; Status DC Heparin Sodium (Porcine) (Heparin Sq) 5,000 unit Q8HRS SQ Last administered on 02/19/17 06:13; Start 02/04/17 at 14:00 Loperamide HCl (Imodium) 2 mg TID PO Last administered on 02/07/17 20:32; Start 02/04/17 at 14:00; Stop 02/09/17 at 10:50; Status DC Magnesium Sulfate/ Dextrose 50 ml @ 25 mls/hr PRN DAILY PRN IV for Mag < 1.7 on am labs; Start 02/04/17 at 14:30; Stop 02/05/17 at 10:05; Status DC Furosemide 100 mg/ Sodium Chloride 100 ml @ 0 mls/hr CONT PRN IV SEE I/O RECORD Last administered on 02/04/17 15:59; Start 02/04/17 at 14:30; Stop at 09:27; Status DC Acetylcysteine (Mucomyst 20% Oral Solution) 1,200 mg BID PO Last administered on 02/06/17 20:49; Start 02/05/17 at 09:00; Stop 02/07/17 at 08:59; Status DC Sodium Polystyrene Sulfonate (Kayexalate) 30 gm 1X ONCE PO Last administered on 02/06/17 09:49; Start 02/06/17 at 09:30; Stop 02/06/17 at 09:31; Status DC Dextrose 10 ml 1X ONCE IV Last administered on 02/06/17 09:56; Start 02/06/17 at 09:30; Stop 02/06/17 at 09:31; Status DC Insulin Human Regular (NovoLIN R VIAL) 10 unit 1X ONCE IV Last administered on 02/06/17 09:59; Start 02/06/17 at 09:30; Stop 02/06/17 at 09:31; Status DC Heparin Sodium/ Sodium Chloride 500 ml @ As Directed STK-MED ONCE .ROUTE ; Start 02/06/17 at 10:10; Stop 02/06/17 at 10:11; Status DC Lidocaine HCl 20 ml STK-MED ONCE .ROUTE ; Start 02/06/17 at 10:10; Stop 02/06/17 at 10:11; Status DC Fentanyl Citrate (Fentanyl 2ml Vial) 100 mcg STK-MED ONCE .ROUTE ; Start at 10:39; Stop 02/06/17 at 10:40; Status DC Midazolam HCl (Versed) 2 mg STK-MED ONCE .ROUTE ; Start 02/06/17 at 10:39; Stop 02/06/17 at 10:40; Status DC Heparin Sodium/ Sodium Chloride 1,000 unit 1X ONCE IART Last administered on 11:10; Start 02/06/17 at 11:15; Stop 02/06/17 at 11:16; Status DC Midazolam HCl (Versed) 1 mg 1X ONCE IV Last administered on 02/06/17 11:11; Start 02/06/17 at 11:15; Stop 02/06/17 at 11:16; Status DC Fentanyl Citrate (Fentanyl 2ml Vial) 50 mcg 1X ONCE IV Last administered on 11:11; Start 02/06/17 at 11:15; Stop 02/06/17 at 11:16; Status DC Lidocaine HCl 20 ml 1X ONCE IJ Last administered on 02/06/17 11:10; Start 02/06 at 11:15; Stop 02/06/17 at 11:16; Status DC Sodium Chloride (Normal Saline Flush) 3 ml QSHIFT PRN IV AFTER MEDS AND BLOOD DRAWS; Start 02/06/17 at 11:15; Status Cancel Nitroglycerin (Nitrostat) 0.4 mg PRN Q5MIN PRN SL CHEST PAIN; Start 02/06/17 at 11:15 Iron Sucrose 200 mg/Sodium Chloride 110 ml @ 55 mls/hr 3X/WEEK IV Last administered on 02/06/17 16:30; Start 02/06/17 at 13:00; Stop 02/11/17 at 09:12; Status DC Furosemide 100 mg/ Sodium Chloride 100 ml @ 0 mls/hr CONT PRN IV SEE I/O RECORD Last administered on 02/10/17 12:59; Start 02/06/17 at 13:30; Stop at 09:12; Status DC Insulin Detemir (Levemir) 20 units QHS SQ ; Start 02/07/17 at 21:00; Stop at 09:08; Status DC Furosemide (Lasix) 20 mg 1X ONCE IVP ; Start 02/07/17 at 13:30; Stop 02/07/17 at 13:31; Status Cancel Diclofenac Sodium (Voltaren) 1 katia BID TP Last administered on 02/18/17 20:43 ; Start 02/08/17 at 13:30 Lidocaine HCl 16 ml/Sodium Bicarbonate 4 meq/ Miscellaneous 20 ml @ 20 mls/hr 1X ONCE ID ; Start 02/09/17 at 06:00; Stop 02/09/17 at 06:59; Status UNV Lidocaine HCl 10 ml 1X ONCE INJ Last administered on 02/08/17 15:44; Start 02/08/17 at 14:00; Stop 02/08/17 at 14:01; Status DC Amlodipine Besylate (Norvasc) 10 mg DAILY PO Last administered on 02/18/17 13: 47; Start 02/09/17 at 09:00 Amlodipine Besylate (Norvasc) 10 mg 1X ONCE PO Last administered on 02/08/17 15:43; Start 02/08/17 at 16:00; Stop 02/08/17 at 16:01; Status DC Insulin Detemir (Levemir) 12 units QHS SQ Last administered on 02/10/17 21:02; Start 02/09/17 at 21:00; Stop 02/11/17 at 10:15; Status DC Ceftriaxone Sodium 1 gm/ Sodium Chloride 50 ml @ 100 mls/hr Q24H IV Last administered on 02/09/17 11:41; Start 02/09/17 at 10:00; Stop 02/10/17 at 09:25; Status DC Loperamide HCl (Imodium) 2 mg PRN TID PRN PO if diarrhea recurs Last administered on 02/18/17 20:24; Start 02/09/17 at 11:00 Lidocaine HCl (Xylocaine-Mpf 1% Vial) 2 ml STK-MED ONCE .ROUTE ; Start 02/10/17 at 06:35; Stop 02/10/17 at 06:36; Status DC Prednisone (Prednisone) 60 mg 1X ONCE PO Last administered on 02/10/17 09:53; Start 02/10/17 at 09:30; Stop 02/10/17 at 09:41; Status DC Prednisone (Prednisone) 40 mg DAILY PO Last administered on 02/12/17 08:02; Start 02/11/17 at 09:00; Stop 02/12/17 at 12:09; Status DC Colchicine (Colcrys) 1.2 mg 1X ONCE PO Last administered on 02/10/17 09:53; Start 02/10/17 at 09:30; Stop 02/10/17 at 09:41; Status DC Colchicine (Colcrys) 0.6 mg DAILY PO ; Start 02/11/17 at 09:00; Stop 02/11/17 at 09:00; Status DC Lidocaine HCl 1 ml STK-MED ONCE .ROUTE ; Start 02/11/17 at 09:38; Stop 02/11/17 at 09:39; Status DC Insulin Detemir (Levemir) 20 units QHS SQ Last administered on 02/18/17 20:40 ; Start 02/11/17 at 21:00 Insulin Aspart (NovoLOG) 15 units 1X ONCE SQ Last administered on 02/11/17 10: 15; Start 02/11/17 at 10:15; Stop 02/11/17 at 10:16; Status DC Insulin Aspart (NovoLOG) 8 units TIDAC SQ Last administered on 02/18/17 18:20 ; Start 02/11/17 at 11:30 Glycerin (Sani-Supp Adult) 1 supp 1X ONCE OK Last administered on 02/11/17 16: 37; Start 02/11/17 at 16:15; Stop 02/11/17 at 16:16; Status DC Prednisone (Prednisone) 20 mg DAILY PO Last administered on 02/18/17 13:45; Start 02/12/17 at 12:00 Sodium Chloride 500 ml @ 100 mls/hr 1X ONCE IV Last administered on 02/12/17 13:07; Start 02/12/17 at 12:30; Stop 02/12/17 at 17:29; Status DC Sertraline HCl (Zoloft) 25 mg QHS PO Last administered on 02/18/17 20:24; Start 02/12/17 at 21:00 Heparin Sodium (Porcine) (Heparin Sodium) 10,000 unit STK-MED ONCE .ROUTE ; Start 02/13/17 at 12:13; Stop 02/13/17 at 12:14; Status DC Lidocaine/Sodium Bicarbonate (Buffered Lidocaine 1%) 20 ml STK-MED ONCE IJ ; Start 02/13/17 at 12:13; Stop 02/13/17 at 12:14; Status DC Heparin Sodium/ Sodium Chloride 500 ml @ As Directed STK-MED ONCE .ROUTE ; Start 02/13/17 at 12:13; Stop 02/13/17 at 12:14; Status DC Heparin Sodium/ Sodium Chloride 1,000 unit 1X ONCE IART Last administered on 12:46; Start 02/13/17 at 12:45; Stop 02/13/17 at 12:46; Status DC Lidocaine/Sodium Bicarbonate (Buffered Lidocaine 1%) 3 ml 1X ONCE IJ Last administered on 02/13/17 12:46; Start 02/13/17 at 12:45; Stop 02/13/17 at 12:46; Status DC Heparin Sodium (Porcine) (Heparin Sodium) 2,500 unit 1X ONCE INT CAT Last administered on 02/13/17 12:46; Start 02/13/17 at 12:45; Stop 02/13/17 at 12:46; Status DC Sodium Chloride 1,000 ml @ 1,000 mls/hr Q1H PRN IV hypotension; Start 02/13/17 at 16:41; Stop 02/13/17 at 22:40; Status DC Diphenhydramine HCl (Benadryl) 25 mg 1X PRN PRN IV ITCHING; Start 02/13/17 at 16 :45; Stop 02/14/17 at 16:44; Status DC Diphenhydramine HCl (Benadryl) 25 mg 1X PRN PRN IV ITCHING; Start 02/13/17 at 16 :45; Stop 02/14/17 at 16:44; Status DC Sodium Chloride (Normal Saline Flush) 10 ml 1X PRN PRN IV AP catheter pack; Start 02/13/17 at 16:45; Stop 02/14/17 at 16:44; Status DC Sodium Chloride (Normal Saline Flush) 10 ml 1X PRN PRN 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; Start 02/13/17 at 16:45; Stop 02/14/17 at 16:44; Status DC Info (PHARMACY MONITORING -- do not chart) 1 each PRN DAILY PRN MC SEE COMMENTS ; Start 02/13/17 at 16:45 Sodium Chloride 1,000 ml @ 1,000 mls/hr Q1H PRN IV hypotension; Start 02/14/17 at 10:18; Stop 02/14/17 at 16:17; Status DC Sodium Chloride 1,000 ml @ 400 mls/hr Q2H30M PRN IV PATENCY; Start 02/14/17 at 10:18; Stop 02/14/17 at 22:17; Status DC Info (PHARMACY MONITORING -- do not chart) 1 each PRN DAILY PRN MC SEE COMMENTS ; Start 02/14/17 at 10:30; Status UNV Sodium Chloride 1,000 ml @ 1,000 mls/hr Q1H PRN IV hypotension; Start 02/16/17 at 13:29; Stop 02/16/17 at 19:28; Status DC Sodium Chloride (Normal Saline Flush) 10 ml 1X PRN PRN IV AP catheter pack; Start 02/16/17 at 13:30; Stop 02/17/17 at 13:29; Status DC Sodium Chloride (Normal Saline Flush) 10 ml 1X PRN PRN 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; Start 02/16/17 at 13:30; Stop 02/17/17 at 13:29; Status DC Info (PHARMACY MONITORING -- do not chart) 1 each PRN DAILY PRN MC SEE COMMENTS ; Start 02/16/17 at 13:30; Status UNV Info (PHARMACY MONITORING -- do not chart) 1 each PRN DAILY PRN MC SEE COMMENTS ; Start 02/16/17 at 13:30; Status UNV Darbepoetin Marquez (Aranesp) 60 mcg WEEKLYHS SQ Last administered on 02/17/17t 22 :12; Start 02/17/17 at 21:00 Heparin Sodium (Porcine) (Heparin Sodium) 10,000 unit STK-MED ONCE .ROUTE ; Start 02/17/17 at 12:22; Stop 02/17/17 at 12:23; Status DC Heparin Sodium/ Sodium Chloride 500 ml @ As Directed STK-MED ONCE .ROUTE ; Start 02/17/17 at 12:22; Stop 02/17/17 at 12:23; Status DC Lidocaine/ Epinephrine (Xylocaine 1%-Epi 1:100,000) 20 ml STK-MED ONCE .ROUTE ; Start 02/17/17 at 12:22; Stop 02/17/17 at 12:23; Status DC Midazolam HCl (Versed) 5 mg STK-MED ONCE .ROUTE ; Start 02/17/17 at 13:45; Stop 02/17/17 at 13:46; Status DC Fentanyl Citrate (Fentanyl 5ml Vial) 250 mcg STK-MED ONCE .ROUTE ; Start at 13:45; Stop 02/17/17 at 13:46; Status DC Cefazolin Sodium 50 ml @ As Directed STK-MED ONCE IV ; Start 02/17/17 at 13:45; Stop 02/17/17 at 13:46; Status DC Heparin Sodium/ Sodium Chloride 1,000 unit 1X ONCE IART Last administered on 14:00; Start 02/17/17 at 14:00; Stop 02/17/17 at 14:09; Status DC Midazolam HCl (Versed) 5 mg 1X ONCE IV Last administered on 02/17/17 14:00; Start 02/17/17 at 14:00; Stop 02/17/17 at 14:09; Status DC Fentanyl Citrate (Fentanyl 5ml Vial) 250 mcg 1X ONCE IV Last administered on 14:00; Start 02/17/17 at 14:00; Stop 02/17/17 at 14:09; Status DC Cefazolin Sodium 50 ml @ 100 mls/hr 1X ONCE IV Last administered on 14:00; Start 02/17/17 at 14:00; Stop 02/17/17 at 14:29; Status DC Lidocaine/ Epinephrine (Xylocaine 1%-Epi 1:100,000) 20 ml 1X ONCE INJ Last administered on 02/17/17 14:00; Start 02/17/17 at 14:00; Stop 02/17/17 at 14:10 ; Status DC Heparin Sodium (Porcine) (Heparin Sodium) 2,600 unit 1X ONCE INT CAT Last administered on 02/17/17t 14:15; Start 02/17/17 at 14:15; Stop 02/17/17 at 14:16 ; Status DC Sodium Chloride 1,000 ml @ 1,000 mls/hr Q1H PRN IV hypotension; Start 02/18/17 at 09:01; Stop 02/18/17 at 15:00; Status DC Diphenhydramine HCl (Benadryl) 25 mg 1X PRN PRN IV ITCHING; Start 02/18/17 at 09:15; Stop 02/19/17 at 09:14; Status DC Diphenhydramine HCl (Benadryl) 25 mg 1X PRN PRN IV ITCHING; Start 02/18/17 at 09:15; Stop 02/19/17 at 09:14; Status DC Sodium Chloride (Normal Saline Flush) 10 ml 1X PRN PRN IV AP catheter pack; Start 02/18/17 at 09:15; Stop 02/19/17 at 09:14; Status DC Sodium Chloride (Normal Saline Flush) 10 ml 1X PRN PRN 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; Start 02/18/17 at 09:15; Stop 02/19/17 at 09:14; Status DC Info (PHARMACY MONITORING -- do not chart) 1 each PRN DAILY PRN MC SEE COMMENTS ; Start 02/18/17 at 09:15; Status UNV Active Scripts Active Xanax (Alprazolam) 0.25 Mg Tablet 0.25 Mg PO QHS PRN Oxycodone-Acetaminophen 10-325 (Oxycodone Hcl/Acetaminophen) 1 Each Tablet 1 Tab PO PRN Q6HRS PRN Hydralazine Hcl 25 Mg Tablet 25 Mg PO BID Reported Vitamin D3 (Cholecalciferol (Vitamin D3)) 5,000 Unit Tablet 1 Tab PO DAILY Cyclobenzaprine Hcl 10 Mg Tablet 1 Tab PO BID Vitals/I & O Vital Sign - Last 24 Hours 02/18/17 02/18/17 02/18/17 02/18/17 13:47 14:19 15:00 15:19 Temp 98.3 98.3 Pulse 76 69 Resp 18 B/P (MAP) 147/64 152/57 (88) Pulse Ox 100 O2 Delivery Room Air Room Air Room Air 02/18/17 02/18/17 02/18/17 02/18/17 19:15 20:25 20:30 23:15 Temp 97.9 98.3 97.9 98.3 Pulse 79 79 66 Resp 18 18 B/P (MAP) 121/91 (101) 121/91 109/61 (77) Pulse Ox 100 96 O2 Delivery Room Air Room Air Room Air O2 Flow Rate 2.0 02/19/17 02/19/17 02/19/17 03:15 07:00 08:00 Temp 98.9 98.2 98.9 98.2 Pulse 56 63 Resp 14 18 B/P (MAP) 125/63 (83) 150/64 (92) Pulse Ox 97 97 O2 Delivery Room Air Room Air Room Air Intake and Output 02/18/17 02/18/17 02/19/17 14:59 22:59 06:59 Intake Total 840 ml 240 ml Output Total 325 ml 750 ml Balance 515 ml -510 ml GABRIEL LAWS MD Feb 19, 2017 10:53
[2017-02-19 11:30] VITALS: BP 132/61
[2017-02-19] MEDS: CHOLECALCIFEROL (VITAMIN D3) 5,000 UNIT CAPSULE PO SCH (11:30)
[2017-02-19] MEDS: GABAPENTIN 400 MG CAPSULE. PO SCH (11:31)
[2017-02-19] MEDS: amLODIPine BESYLATE 10 MG TABLET PO SCH (11:31)
[2017-02-19 11:32] VITALS: BP 132/61
[2017-02-19] MEDS: ASPIRIN ENTERIC COATED 81 MG TABLET.DR. PO SCH (11:32)
[2017-02-19] MEDS: CYCLOBENZAPRINE 10 MG TABLET. PO SCH (11:32)
[2017-02-19] MEDS: METOPROLOL TART IMMED RELEASE 25 MG TABLET. PO SCH (11:32)
[2017-02-19] MEDS: predniSONE 20 MG TABLET PO SCH (11:32)
--- NOTE | 2017-02-19 11:42 | PDOC ---
Renal-Progress Notes Subjective Notes Notes ASLEEP History of Present Illness Hx of present illness NONE Vitals Vitals Vital Signs Date Time Temp Pulse Resp B/P (MAP) Pulse Ox O2 Delivery O2 Flow Rate FiO2 02/19/17 11:32 60 132/61 02/19/17 08:00 Room Air 02/19/17 07:00 98.2 18 97 98.2 02/18/17 20:30 2.0 Weight Weight [ ] I.O. Intake and Output Intake and Output 02/19/17 07:00 Intake Total 1080 ml Output Total 1075 ml Balance 5 ml Intake Oral 1080 ml Output Urine Total 1075 ml Labs Labs Laboratory Tests Test 02/18/17 13:44 02/18/17 17:28 02/18/17 20:33 02/19/17 07:45 Glucose (Fingerstick) 153 mg/dL (70-99) 316 mg/dL (70-99) 268 mg/dL (70-99) 204 mg/dL (70-99) Micro Micro Microbiology 02/08/17 Gram Stain - Final, Complete Review of Systems Constitutional: yes: malaise, weakness, alert, oriented Ears/Nose/Throat: Yes: no symptom reported Pulmonary: Yes dyspnea Cardiovascular: Yes edema Gastrointestional: Yes: constipation Genitourinary: Yes: other Musculoskeletal: Yes: muscle stiffness Skin: Yes no symptom reported Physical Exam General Appearance: no apparent distress Skin: warm Respiratory: bilateral CTA Abdomen: soft, N/T Extremities: edema Neurology: alert, oriented, follow commands Musculoskeletal: Osteoarthritis Assessment Assessment IMP NEW ESRD ANEMIA EDEMA CHF-COMPENSATED PLAN HD TOMORROW OP HD HAS BEEN SET UP DIANA LEE MD Feb 19, 2017 11:42
--- NOTE | 2017-02-19 12:04 | PDOC ---
Subjective: Subjective: No GI complaints. Objective: Objective: Per RN - no GI concerns, DC today. Vital Signs: Vital Signs Date Time Temp Pulse Resp B/P (MAP) Pulse Ox O2 Delivery O2 Flow Rate FiO2 02/19/17 11:32 60 132/61 02/19/17 11:30 97.7 18 99 Room Air 97.7 02/18/17 20:30 2.0 Labs: Laboratory Tests Test 02/18/17 13:44 02/18/17 17:28 02/18/17 20:33 02/19/17 07:45 Glucose (Fingerstick) 153 mg/dL 316 mg/dL 268 mg/dL 204 mg/dL Test 02/19/17 11:30 Glucose (Fingerstick) 219 mg/dL PE: GEN: NAD LUNGS: clear HEART: S1S2 ABD: NABS, S/NT, obese NEURO/PSYCH: A & O 3 A/P: CHF, ESRD on HD Anemia - stable Diarrhea - improved -- DC plans noted, continue Imodium PRN. ANALI JOHNSON Feb 19, 2017 12:04
== END 2017-02-19 13:50 | DRG 286 ==
LOC: 2 SOUTH 17:48
PROVIDERS: ADMIT Internal Medicine; ATTEND Internal Medicine
PROC: 3E0U33Z Introduction of Anti-inflammatory into Joints, Percutaneous Approach (ICD-10-PCS; 2017-02-01)
PROC: 3E0U3BZ Introduction of Anesthetic Agent into Joints, Percutaneous Approach (ICD-10-PCS; 2017-02-01)
PROC: 5A1D60Z (ICD-10-PCS; 2017-02-04)
PROC: 0S9C3ZX Drainage of Right Knee Joint, Percutaneous Approach, Diagnostic (ICD-10-PCS; 2017-02-08)
PROC: 4A023N6 Measurement of Cardiac Sampling and Pressure, Right Heart, Percutaneous Approach (ICD-10-PCS; principal; 2017-02-12)
PROC: 02H633Z Insertion of Infusion Device into Right Atrium, Percutaneous Approach (ICD-10-PCS; 2017-02-13)
PROC: 0JH63XZ Insertion of Tunneled Vascular Access Device into Chest Subcutaneous Tissue and Fascia, Percutaneous Approach (ICD-10-PCS; 2017-02-17)
PROC: 02H633Z Insertion of Infusion Device into Right Atrium, Percutaneous Approach (ICD-10-PCS; 2017-02-17)
DX: I50.43 Acute on chronic combined systolic (congestive) and diastolic (congestive) heart failure (principal); N17.0 Acute kidney failure with tubular necrosis; N18.6 End stage renal disease; I13.2 Hypertensive heart and chronic kidney disease with heart failure and with stage 5 chronic kidney disease, or end stage renal disease; E87.2 Acidosis; Z68.42 Body mass index [BMI] 45.0-49.9, adult; E44.0 Moderate protein-calorie malnutrition; D63.8 Anemia in other chronic diseases classified elsewhere; E73.9 Lactose intolerance, unspecified; E78.5 Hyperlipidemia, unspecified; E87.5 Hyperkalemia; F32.9 Major depressive disorder, single episode, unspecified; G47.33 Obstructive sleep apnea (adult) (pediatric); I27.2 Other secondary pulmonary hypertension; I87.2 Venous insufficiency (chronic) (peripheral); K21.9 Gastro-esophageal reflux disease without esophagitis; K59.00 Constipation, unspecified; M17.0 Bilateral primary osteoarthritis of knee; M77.9 Enthesopathy, unspecified; E11.22 Type 2 diabetes mellitus with diabetic chronic kidney disease; E11.42 Type 2 diabetes mellitus with diabetic polyneuropathy; E11.649 Type 2 diabetes mellitus with hypoglycemia without coma; E21.3 Hyperparathyroidism, unspecified; E66.01 Morbid (severe) obesity due to excess calories; F41.9 Anxiety disorder, unspecified; I48.0 Paroxysmal atrial fibrillation; M75.40 Impingement syndrome of unspecified shoulder; M75.100 Unspecified rotator cuff tear or rupture of unspecified shoulder, not specified as traumatic; M10.9 Gout, unspecified; Z79.4 Long term (current) use of insulin; Z80.0 Family history of malignant neoplasm of digestive organs; Z82.49 Family history of ischemic heart disease and other diseases of the circulatory system; Z90.49 Acquired absence of other specified parts of digestive tract; Z91.19 Patient's noncompliance with other medical treatment and regimen; Z99.2 Dependence on renal dialysis; Z99.3 Dependence on wheelchair
CPT/HCPCS: 36415; 36556; 36558; 36600; 71020; 73560; 76937; 77001; 80048; 80053; 80061; 80069; 80074; 80076; 81001; 82575; 82728; 82805; 82962; 83036; 83540; 83550; 83735; 83880; 83970; 84100; 84132; 84156; 84443; 84484; 84550; 85007; 85027; 85610; 85651; 86704; 86706; 87071; 87075; 87205; 87324; 89050; 89060; 93005; 93306; 93451; 93970; A4215; C1750; C1773; C1892; J0690; J0696; J0881; J1030; J1650; J1756; J1815; J1940; J2250; J3010; J3490; J7040; J7512; 97110; 97116; 97530; 97535; J2001

== ENCOUNTER → 2017-05-22 | Day surgery (SDC) | payer OTHER ==
[~2017-05-22] VITALS: Ht 167.6 cm; Wt 100.7 kg
[~2017-05-22] MED LIST changes: +ASPI-630 PO; +ASPI325T8 PO; +CARV3.122 PO; +CHOL10003 PO; +CIPR250T30 PO; +FOLI0.8T21 PO; +GLIM4TAB PO; +HEPARIN SODIUM 5,000 UNIT in IV NORMAL SALINE 500ML BAG 500 ML IRR ONE; +HYDR-971 PO; +HYDROmorphone 2 MG/ML VIAL IV PRN; +INSU100C SQ; +INSU100I27 SQ; +IV RINGERS,LACTATED 1000ML 1,000 ML IV SCH; +LIDO700A39 TP; +LIDOCAINE 1% 1 ML SYRINGE. ID PRN; +LIDOCAINE 1% PF 48 ML, SODIUM BICARBONATE VIAL 12 MEQ in TOTAL VOLUME SYRINGE 0 ML ID ONE; +LIDOCAINE 2% PF Vial for OR 5 ML VIAL. ONE; +LOPE2CAP PO; +METO25TA4 PO; +MORPHINE SULFATE 2 MG/ML DISP.SYRIN. IV PRN; +ONDANSETRON PF 4 MG/2 ML VIAL. IV PRN; +OXYC-323 PO; +PANT40TA5 PO; +POLY119P4 PO; +POTA20TA82 PO; +PROCHLORPERAZINE 10 MG/2 ML VIAL. IV PRN; +PROPOFOL 0 ML IV ONE; +SURGICEL FIBRILLAR 1X2 EACH. ONE; +[UNRECOGNIZED DRUG - CODE] IV/SQ; +ceFAZolin 2GM PREMIX 2 GM/50 ML BAG IV ONE; +fentaNYL PF VIAL 100 MCG/2 ML VIAL IV PRN; +fentaNYL PF VIAL 100 MCG/2 ML VIAL ONE; +flexeril PO
== END | disposition home or self-care (01) ==
LOC: SURG 05:33
DX: I13.10 Hypertensive heart and chronic kidney disease without heart failure, with stage 1 through stage 4 chronic kidney disease, or unspecified chronic kidney disease (principal); Z53.9 Procedure and treatment not carried out, unspecified reason; E11.22 Type 2 diabetes mellitus with diabetic chronic kidney disease; N18.4 Chronic kidney disease, stage 4 (severe); Z99.2 Dependence on renal dialysis; I48.91 Unspecified atrial fibrillation; D64.9 Anemia, unspecified; F41.9 Anxiety disorder, unspecified; F32.9 Major depressive disorder, single episode, unspecified; Z86.69 Personal history of other diseases of the nervous system and sense organs; Z87.39 Personal history of other diseases of the musculoskeletal system and connective tissue; Z86.39 Personal history of other endocrine, nutritional and metabolic disease; Z86.14 Personal history of Methicillin resistant Staphylococcus aureus infection
CPT/HCPCS: C1769; J0690; J1644; J3010; J7040; J2704; J2001

== ENCOUNTER 2017-05-25 06:01 | Day surgery (SDC) | payer OTHER ==
[~2017-05-25] VITALS: Ht 167.6 cm; Wt 100.7 kg
[~2017-05-25 06:01] MED LIST changes: -ASPI325T8 PO; -CARV3.122 PO; -CHOL10003 PO; -CIPR250T30 PO; -GLIM4TAB PO; -HEPARIN SODIUM 5,000 UNIT in IV NORMAL SALINE 500ML BAG 500 ML IRR ONE; -HYDR-971 PO; -HYDROmorphone 2 MG/ML VIAL IV PRN; -INSU100I27 SQ; -IV RINGERS,LACTATED 1000ML 1,000 ML IV SCH; -LIDO700A39 TP; -LIDOCAINE 1% 1 ML SYRINGE. ID PRN; -LIDOCAINE 1% PF 48 ML, SODIUM BICARBONATE VIAL 12 MEQ in TOTAL VOLUME SYRINGE 0 ML ID ONE; -LIDOCAINE 2% PF Vial for OR 5 ML VIAL. ONE; -LOPE2CAP PO; -MORPHINE SULFATE 2 MG/ML DISP.SYRIN. IV PRN; -ONDANSETRON PF 4 MG/2 ML VIAL. IV PRN; -OXYC-323 PO; -PANT40TA5 PO; -POLY119P4 PO; -PROCHLORPERAZINE 10 MG/2 ML VIAL. IV PRN; -PROPOFOL 0 ML IV ONE; -SURGICEL FIBRILLAR 1X2 EACH. ONE; -[UNRECOGNIZED DRUG - CODE] IV/SQ; -ceFAZolin 2GM PREMIX 2 GM/50 ML BAG IV ONE; -fentaNYL PF VIAL 100 MCG/2 ML VIAL IV PRN; -fentaNYL PF VIAL 100 MCG/2 ML VIAL ONE; -flexeril PO
[2017-05-25 06:53] LABS: BASO # 0.1 x10^3/uL (0.0-0.2); BASO % 1 % (0-3); EOS % 2 % (0-3); HEMATOCRIT 39.5 % (36.0-47.0); LYMPH # 3.7 x10^3/uL (1.0-4.8); LYMPH % 30 % (24-48); MEAN CORPUSCULAR HEMOGLOBIN 31 pg (25-35); MEAN CORPUSCULAR HGB CONC 33 g/dL (31-37); MEAN CORPUSCULAR VOLUME 95 fL (79-100); MONO % 7 % (0-9); NEUT % 60 % (31-73); PLATELET COUNT 197 x10^3/uL (140-400); RED BLOOD COUNT 4.17 x10^6/uL (3.50-5.40); WHITE BLOOD COUNT 12.5 x10^3/uL (4.0-11.0)
[2017-05-25 06:55] LABS: CALCIUM 8.9 mg/dL (8.5-10.1); CREATININE 4.6 mg/dL (0.6-1.0); GFR 9.5; POTASSIUM 3.9 mmol/L (3.5-5.1)
[2017-05-25] MEDS ORDERED: IV NORMAL SALINE 1000ML BAG 1,000 ML IV ONE (07:00)
[2017-05-25 07:03] LABS: PROTHROMBIN TIME PATIENT 12.3 SEC (11.7-14.0)
[2017-05-25] MEDS ORDERED: HEPARIN for IV BOLUS 10,000 UNIT/10 ML VIAL. ONE (07:12)
[2017-05-25] MEDS ORDERED: DEXAMETHASONE SOD PHOS 20 MG/5 ML VIAL. ONE (07:12)
[2017-05-25] MEDS ORDERED: PROPOFOL 20 ML IV ONE (07:12)
[2017-05-25] MEDS ORDERED: fentaNYL PF VIAL 100 MCG/2 ML VIAL ONE (07:12)
[2017-05-25] MEDS ORDERED: ONDANSETRON PF 4 MG/2 ML VIAL. ONE (07:12)
[2017-05-25] MEDS ORDERED: DESFLURANE 31 TO 60 MINUTES IH ONE (07:12)
[2017-05-25] MEDS ORDERED: LIDOCAINE 2% PF Vial for OR 5 ML VIAL. ONE (07:12)
[2017-05-25] MEDS ORDERED: SURGICEL HEMOSTAT 4X8 EACH. ONE (07:19)
[2017-05-25] MEDS ORDERED: PHENYLEPHRINE in 0.9% NACL PF 1 MG/10 ML DISP.SYRIN. IV ONE (07:58)
--- NOTE | 2017-05-25 09:17 | DISCH ---
DISCHARGE INSTRUCTIONS Condition on Discharge Condition on Discharge: Stable Activity After Discharge Activity Instructions for Disc: Activity as tolerated Diet after Discharge Diet after Discharge: Renal Dialysis Wound Incision Care Wound/Incision Care: Keep wound elevated Wound Care Equipment: Dressings (may remove dressing in 2 days, keep clean and dry) Contacting the after DC Call your doctor for: Concerns you may have Follow-Up Follow up with: call for follow up, follow up in 3 weeks [phone] GISSELLE DAWSON APRN May 25, 2017 09:17
--- NOTE | 2017-05-25 09:20 | PDOC ---
BRIEF OPERATIVE NOTE Date: May 25, 2017 Pre-Op Diagnosis Renal failure Post-Op Diagnosis same Procedure Performed Left forearm arteriovenous shunt placement Surgeon Dr. Choi Veterinary Medicine Doctor Gisselle Dawson NP Anesthesia Type: General Blood Loss 25cc Specimens Obtained none Findings doppler radial pulse post shunt placement Complications none, stable to PACU GISSELLE DAWSON APRN May 25, 2017 09:20
[2017-05-25] MEDS ORDERED: HYDR-971 PO (10:01)
[2017-05-25 10:20] VITALS: BP 122/72
--- NOTE | 2017-05-25 12:21 | OP ---
DATE OF SURGERY: 05/25/2017 PREOPERATIVE DIAGNOSIS: End-stage renal disease. POSTOPERATIVE DIAGNOSIS: End-stage renal disease. PROCEDURE PERFORMED: Placement of left forearm arteriovenous graft. SURGEON: Travis Harden MD. DIRECTOR CALL CENTER SALES: Rosalie Flores, certified nurse practitioner. INDICATIONS: This is a 66-year-old female with chronic hemodialysis dependent renal failure. She has a central catheter in place currently. She was seen in the office, evaluated with ultrasound exam and noted to have adequate veins in the left, for consideration of a primary AV graft. There were no adequate forearm or upper arm veins that would be suitable for consideration of use for AV fistula creation. DESCRIPTION OF PROCEDURE: The patient was brought to the operating room. She was prepped and draped in a sterile fashion. General anesthetic had been administered. Area below the antecubital fossa on the left was then infiltrated with 1% Xylocaine. A transverse incision was placed, and a transverse incision was placed in the distal volar aspect of the forearm. Soft tissues in the antecubital fossa were dissected. Small collections of fat were required to be removed, as they were bulging out from the cut skin margins. The superficial fascia was incised, and below this, the antecubital vein was visible. The cephalic and basilic branches as well as the deep communicating branch were all isolated and doubly surrounded with vessel loops. The brachioradialis fascia was then incised and the brachial artery was isolated. This was also doubly surrounded proximally and distally with vessel loops. An Impra tunneler was brought on the field and a 4 to 7 mm Propaten graft was passed from the antecubital incision to the counterincision and then back. Vessel loops were secured on the venous branches. Longitudinal venotomy was made. A 7 mm end of the graft was trimmed and an end-to-side anastomosis was completed with an HS7 Prolene suture. The graft was flushed. Excellent flow was noted. The graft was then clamped just adjacent to the anastomosis. The patient received 3000 units of intravenous heparin. Vessel loops were secured on the artery. The 4 mm at the end of the artery was trimmed. Longitudinal arteriotomy was made with 11 blade, extended with Vital scissors. A spatulated end-to-side anastomosis with an HS7 Prolene suture was completed. Blood flow was instituted through the shunt and there was excellent outflow thrill. There was still a weak biphasic Doppler signal at the radial artery at the wrist. This improved to sharp biphasic signal. With graft compression, it was felt that the flow into the hand was probably adequate. Hemostasis appeared to be adequate. The antecubital fossa incision was closed with running suture of 3-0 Vicryl in deep and superficial subcutaneous tissues. Steri-Strips and sterile dressing was applied. The counterincision was closed with interrupted 3-0 nylon stitches placed in a mattress fashion. Sterile dressing was applied here. The patient moved to recovery in satisfactory stable condition. TRAVIS HARDEN MD DR: JOHN/isaac JOB#: [id number] / [id number]
[2017-06-08] MEDS ORDERED: CIPR250T30 PO (10:59)
[2017-06-17] MEDS ORDERED: INSU100I27 SQ (13:26)
[2017-06-17] MEDS ORDERED: POLY119P4 PO (13:26)
[2017-06-17] MEDS ORDERED: CARV6.252 PO (13:26)
[2017-08-03] MEDS ORDERED: ASPI325T8 PO (08:03)
[2017-08-03] MEDS ORDERED: flexeril PO (08:03)
[2017-08-03] MEDS ORDERED: [UNRECOGNIZED DRUG - CODE] IV/SQ (08:03)
[2017-08-03] MEDS ORDERED: LIDO700A39 TP (08:03)
[2017-08-03] MEDS ORDERED: OXYC-323 PO (08:03)
[2017-08-03] MEDS ORDERED: CHOL10003 PO (08:03)
[2017-08-03] MEDS ORDERED: GLIM4TAB PO (08:03)
[2017-08-03] MEDS ORDERED: PANT40TA5 PO (08:03)
[2017-08-03] MEDS ORDERED: CARV3.122 PO (08:03)
[2017-08-03] MEDS ORDERED: LOPE2CAP PO (08:03)
[2017-08-03] MEDS ORDERED: INSU100V13 SQ (08:09)
== END 2017-05-25 10:37 | disposition home or self-care (01) ==
LOC: SURG 06:01
DX: I13.2 Hypertensive heart and chronic kidney disease with heart failure and with stage 5 chronic kidney disease, or end stage renal disease (principal); E11.22 Type 2 diabetes mellitus with diabetic chronic kidney disease; N18.6 End stage renal disease; I50.9 Heart failure, unspecified; Z99.2 Dependence on renal dialysis; E11.42 Type 2 diabetes mellitus with diabetic polyneuropathy; I48.91 Unspecified atrial fibrillation; E66.9 Obesity, unspecified; Z68.44 Body mass index [BMI] 60.0-69.9, adult; K21.9 Gastro-esophageal reflux disease without esophagitis; F41.9 Anxiety disorder, unspecified; F32.9 Major depressive disorder, single episode, unspecified; D64.9 Anemia, unspecified; Z86.69 Personal history of other diseases of the nervous system and sense organs; Z90.49 Acquired absence of other specified parts of digestive tract; Z86.39 Personal history of other endocrine, nutritional and metabolic disease; Z87.39 Personal history of other diseases of the musculoskeletal system and connective tissue; Z86.14 Personal history of Methicillin resistant Staphylococcus aureus infection
CPT/HCPCS: 36415; 36830; 80048; 82962; 85025; 85610; 85730; C1768; C1769; J0690; J1100; J1644; J2370; J2405; J2704; J3010; J7040; J7120; J2001

== ENCOUNTER 2017-06-09 09:49 | Outpatient (CLI) | payer OTHER ==
[~2017-06-09] VITALS: Ht 167.6 cm; Wt 100.2 kg
[~2017-06-09 09:49] MED LIST changes: +CIPR250T30 PO; +HYDR-971 PO
[2017-06-09 10:41] LABS: BASO # 0.1 x10^3/uL (0.0-0.2); BASO % 1 % (0-3); EOS % 2 % (0-3); HEMATOCRIT 32.9 % (36.0-47.0); HEMOGLOBIN 10.7 g/dL (12.0-15.5); LYMPH # 2.5 x10^3/uL (1.0-4.8); LYMPH % 22 % (24-48); MEAN CORPUSCULAR HEMOGLOBIN 32 pg (25-35); MEAN CORPUSCULAR HGB CONC 33 g/dL (31-37); MEAN CORPUSCULAR VOLUME 97 fL (79-100); MONO % 5 % (0-9); NEUT % 70 % (31-73); PLATELET COUNT 209 x10^3/uL (140-400); RED BLOOD COUNT 3.39 x10^6/uL (3.50-5.40); RED CELL DISTRIBUTION WIDTH 15.4 % (11.5-14.5); WHITE BLOOD COUNT 11.6 x10^3/uL (4.0-11.0)
[2017-06-09 10:46] VITALS: BP 151/74
[2017-06-09 10:52] LABS: INR 1.1 (0.8-1.1); PROTHROMBIN TIME PATIENT 13.6 SEC (11.7-14.0)
[2017-06-09 11:58] LABS: CALCIUM 8.3 mg/dL (8.5-10.1); CREATININE 4.6 mg/dL (0.6-1.0); GFR 9.5; POTASSIUM 3.1 mmol/L (3.5-5.1)
[2017-06-09] MEDS ORDERED: LIDOCAINE 1%/EPI 1:100,000 20 ML VIAL. ONE (12:04)
[2017-06-09] MEDS ORDERED: HEPARIN for IV BOLUS 10,000 UNIT/10 ML VIAL. ONE (12:04)
--- NOTE | 2017-06-09 12:26 | PDOC1 ---
History and Physical Date of Procedure Date of Admission 06/09/17 Procedure Procedure Dialysis catheter check and exchange Indication Indication HD catheter lumen not working History of Present Illness Reason for Visit Same Past Medical History Past Medical History CHF, CKD, DM, anemia Past Surgical History Past Surgical History Recent fistula formation Current Medications Current Medications Current Medications Heparin Sodium (Porcine) (Heparin Sodium) 10,000 unit STK-MED ONCE .ROUTE ; Start 06/09/17 at 12:04; Stop 06/09/17 at 12:05; Status DC Lidocaine/ Epinephrine (Xylocaine 1%-Epi 1:100,000) 20 ml STK-MED ONCE .ROUTE ; Start 06/09/17 at 12:04; Stop 06/09/17 at 12:05; Status DC Heparin Sodium/ Sodium Chloride 500 ml @ As Directed STK-MED ONCE .ROUTE ; Start 06/09/17 at 12:04; Stop 06/09/17 at 12:05; Status DC Active Scripts Active Carvedilol 12.5 Mg Tablet 12.5 Mg PO BIDWMEALS Reported Cipro (Ciprofloxacin Hcl) 250 Mg Tablet 1 Tab PO TID 10 Days TID for 10 days for left arm infection Levemir (Insulin Detemir) 100 Unit/1 Ml Vial 20 Unit SQ HS Humalog (Insulin Lispro) 100 Unit/1 Ml Cartridge 30 Unit SQ TIDAC Aspirin 81 Mg Tab.chew 1 Tab PO DAILY Oxycodone-Acetaminophen 10-325 (Oxycodone Hcl/Acetaminophen) 1 Each Tablet 1 Each PO PRN Q6HRS PRN Metoprolol Tartrate 25 Mg Tablet 25 Mg PO DAILY Glimepiride 4 Mg Tablet 1 Tab PO DAILY Gabapentin 300 Mg Capsule 300 Mg PO PRN TID PRN Omeprazole 20 Mg Capsule.dr 1 Cap PO DAILY Michelle-Edwin Tablet (Folic Acid/Vitamin B Comp W-C) 0.8 Mg Tablet 0.8 Mg PO DAILY Cyclobenzaprine Hcl 10 Mg Tablet 1 Tab PO BID Allergies Allergies: Coded Allergies: No Known Drug Allergies (Unverified , 05/25/17) Physical Exam Vital Signs Vital Signs Date Time Temp Pulse Resp B/P (MAP) Pulse Ox O2 Delivery O2 Flow Rate FiO2 06/09/17 10:47 Room Air 06/09/17 10:46 98.4 80 21 151/74 (99) 98 98.4 Vascular GENERAL: No apparent distress. Alert and oriented. HEENT: Head normocephalic, atraumatic. NECK: Supple, right HD cath LUNGS: Clear to auscultation. HEART: RRR, S1, S2 present, pulses intact ABDOMEN: Soft, positive bowel sounds. EXTREMITIES: No cyanosis or edema. NEUROLOGIC: Normal speech, normal tone PSYCHIATRIC: Normal affect, normal mood. SKIN: No ulceration. Assessment Assessment Malfunctioning HD cath Problems: Plan Plan Check HD cath and possibly exchange GEORGE SAUNDERS MD Jun 09, 2017 12:26
[2017-06-09] MEDS ORDERED: LIDOCAINE 1%/EPI 1:100,000 20 ML VIAL. INJ ONE (12:30)
[2017-06-09] MEDS ORDERED: HEPARIN for IV BOLUS 10,000 UNIT/10 ML VIAL. IV ONE (12:30)
[2017-06-09] MEDS ORDERED: IOHEXOL 300 MG/ML 50 ML VIAL. ONE (12:32)
[2017-06-09] MEDS ORDERED: fentaNYL PF VIAL 100 MCG/2 ML VIAL ONE (12:39)
[2017-06-09] MEDS ORDERED: MIDAZOLAM HCL/PF 2 MG/2 ML VIAL. ONE (12:39)
[2017-06-09] MEDS ORDERED: MIDAZOLAM HCL/PF 2 MG/2 ML VIAL. IV ONE (12:45)
[2017-06-09] MEDS ORDERED: fentaNYL PF VIAL 100 MCG/2 ML VIAL IV ONE (12:45)
[2017-06-09] MEDS ORDERED: IOHEXOL 300 MG/ML 50 ML VIAL. IART ONE (12:45)
--- NOTE | 2017-06-09 13:07 | PDOC ---
Exam Washer Cutter Washer Cutter Sri Services Delivery Driver Services Delivery Driver None Pre-Procedure Diagnosis Pre-Procedure Diagnosis ESRD, Malfunctioning HD cath Post-Procedure Diagnosis Post-Procedure Diagnosis ESRD Procedure Performed Procedure Performed HD cath check and replacement Type of Anesthesia Type of Anesthesia Moderate Estimated Blood Loss EBL: None Specimens Specimans None Drain/Tubes Drains/Tubes None Condition of Patient Condition of Patient Stable GEORGE SAUNDERS MD Jun 09, 2017 13:07
[2017-06-09 13:16] VITALS: BP 121/96
[2017-06-09 13:30] VITALS: BP 144/67
[2017-06-09 13:45] VITALS: BP 145/74
[2017-06-09 14:00] VITALS: BP 145/74
[2017-06-09 14:30] VITALS: BP 171/84
--- NOTE | 2017-06-09 14:39 | RAD ---
Procedure: 1. Fluoroscopic guided right internal jugular tunneled catheter exchange. The procedure, risks and complications were explained to the patient and they understood and wished to proceed. Consent form signed. The right anterior chest and neck regions were prepped and draped using maximal sterile technique and one percent Xylocaine used for local anesthesia. Using a sterile syringe, the indwelling heparin was removed from the catheter prior to its removal. The existing hemodialysis catheter cuff was dissected and freed and the cuff removed in its entirety. The catheter was removed over a guidewire. Tunneled catheter exchange: A 28 cm hemodialysis catheter was advanced under fluoroscopic guidance with the tip of the catheter in the midright atrium. The catheter lumen were flushed with 100 unit/ml heparin and was then the catheter was sutured into place. Spot fluoroscopic image of the Chest: Tunneled catheter is present in satisfaction position. Negative for pneumothorax. Contrast was injected to confirm that no fibrin sheath was seen. Sedation: Conscious sedation for 28 minutes. Intravenous Fentanyl and Versed were give for sedation. The patient was monitored by pulse oximetry and cardiovascular monitoring and was observed by the nurses in attendance. Complications: None Contrast: 18 cc The patient tolerated the procedure well and returned to the recovery area in a stable condition. Conclusion: 1. Fluoroscopic guided right 28-cm tip to cuff tunneled DuraMax hemodialysis catheter exchange.
[2017-06-17] MEDS ORDERED: POLY119P4 PO (13:26)
[2017-06-17] MEDS ORDERED: INSU100I27 SQ (13:26)
[2017-06-17] MEDS ORDERED: CARV6.252 PO (13:26)
[2017-08-03] MEDS ORDERED: PANT40TA5 PO (08:03)
[2017-08-03] MEDS ORDERED: flexeril PO (08:03)
[2017-08-03] MEDS ORDERED: OXYC-323 PO (08:03)
[2017-08-03] MEDS ORDERED: LIDO700A39 TP (08:03)
[2017-08-03] MEDS ORDERED: LOPE2CAP PO (08:03)
[2017-08-03] MEDS ORDERED: CARV3.122 PO (08:03)
[2017-08-03] MEDS ORDERED: [UNRECOGNIZED DRUG - CODE] IV/SQ (08:03)
[2017-08-03] MEDS ORDERED: GLIM4TAB PO (08:03)
[2017-08-03] MEDS ORDERED: CHOL10003 PO (08:03)
[2017-08-03] MEDS ORDERED: ASPI325T8 PO (08:03)
[2017-08-03] MEDS ORDERED: INSU100V13 SQ (08:09)
== END 2017-06-09 14:50 | disposition home or self-care (01) ==
LOC: INTRAD 09:49
PROVIDERS: ATTEND Internal Medicine Nephrology
DX: T82.818A Embolism due to vascular prosthetic devices, implants and grafts, initial encounter (principal); I12.9 Hypertensive chronic kidney disease with stage 1 through stage 4 chronic kidney disease, or unspecified chronic kidney disease; E11.22 Type 2 diabetes mellitus with diabetic chronic kidney disease; N18.6 End stage renal disease; I25.10 Atherosclerotic heart disease of native coronary artery without angina pectoris; Z87.440 Personal history of urinary (tract) infections; I50.9 Heart failure, unspecified; I73.9 Peripheral vascular disease, unspecified; D64.9 Anemia, unspecified; F41.9 Anxiety disorder, unspecified; Z99.2 Dependence on renal dialysis; K21.9 Gastro-esophageal reflux disease without esophagitis; E66.9 Obesity, unspecified; Z86.14 Personal history of Methicillin resistant Staphylococcus aureus infection; I48.91 Unspecified atrial fibrillation; E11.42 Type 2 diabetes mellitus with diabetic polyneuropathy
CPT/HCPCS: 36415; 36581; 77001; 80048; 85025; 85610; C1750; C1769; J1644; J2250; J3010; J3490; Q9967; 99152; 99153

== ENCOUNTER → 2017-07-20 | Outpatient (CLI) | payer OTHER ==
[2017-06-17 16:17] VITALS: BP 132/60
[~2017-07-20] MED LIST changes: +ASPI325T8 PO; +CARV3.122 PO; +CHOL10003 PO; +GLIM4TAB PO; +INSU100I27 SQ; +LIDO700A39 TP; +LOPE2CAP PO; +OXYC-323 PO; +PANT40TA5 PO; +POLY119P4 PO; +[UNRECOGNIZED DRUG - CODE] IV/SQ; +flexeril PO
--- NOTE | 2017-07-20 15:27 | KCIC ---
MR of the right shoulder Indication: Right shoulder pain. Multiple recent falls. Technique: Standard multiplanar sequences are obtained. Findings: Moderate to severe motion degradation Acromioclavicular joint: Mildly degenerative. Undersurface mass effect upon the supraspinatus. Rotator cuff: Full-thickness tear of the anterior supraspinatus tendon measuring about 3 cm AP diameter. There is partial undersurface tearing involving the adjacent infraspinatus tendon. High-grade subscapularis tendon tear. Severe muscle volume loss and fatty infiltration. Moderate fluid in the subdeltoid bursa. Glenohumeral cartilage: Primary osteoarthritis, moderate to severe with chondromalacia and osteophytes. Fluid: Moderate joint effusion. Labrum: Circumferential degeneration and/or tearing. Biceps tendon: Not visualized. Bones: No lesion or acute fracture. Soft tissue: Moderate subcoracoid bursal fluid accumulation. Impression: 1. Large rotator cuff tear. Full-thickness retracted supraspinatus tendon tear with severe atrophy. High-grade subscapularis tendon tear. Partial infraspinatus tendon tear. 2. Nonvisualized biceps tendon, compatible with proximal rupture. 3. Primary osteoarthritis. 4. Circumferential labral degeneration or tearing. 5. Subcoracoid bursal fluid. 6. Moderate joint and subdeltoid bursal effusion. Electronically signed by: Leo Kam MD (07/20/2017 3:24 PM) [facility]
== END | disposition home or self-care (01) ==
LOC: KCIC MRI 12:33
PROVIDERS: ATTEND Orthopaedic Surgery Sports Medicine
DX: M25.511 Pain in right shoulder (principal)
CPT/HCPCS: 73221

== ENCOUNTER 2017-07-21 00:18 | Inpatient (IN) | payer OTHER ==
[~2017-07-21] VITALS: Ht 167.6 cm; Wt 98.0 kg
[~2017-07-21 00:18] MED LIST changes: -ASPI325T8 PO; -CARV3.122 PO; -CHOL10003 PO; -GLIM4TAB PO; -LIDO700A39 TP; -LOPE2CAP PO; -OXYC-323 PO; -PANT40TA5 PO; -[UNRECOGNIZED DRUG - CODE] IV/SQ; -flexeril PO
[2017-07-21 06:28] VITALS: BP 119/54
[2017-07-21 07:00] VITALS: BP 100/59
[2017-07-21 07:29] LABS: BASO # 0.1 x10^3/uL (0.0-0.2); BASO % 1 % (0-3); EOS % 1 % (0-3); HEMATOCRIT 31.7 % (36.0-47.0); HEMOGLOBIN 10.5 g/dL (12.0-15.5); LYMPH # 1.7 x10^3/uL (1.0-4.8); LYMPH % 17 % (24-48); MEAN CORPUSCULAR HEMOGLOBIN 32 pg (25-35); MEAN CORPUSCULAR HGB CONC 33 g/dL (31-37); MEAN CORPUSCULAR VOLUME 95 fL (79-100); MONO % 8 % (0-9); NEUT % 73 % (31-73); PLATELET COUNT 191 x10^3/uL (140-400); RED BLOOD COUNT 3.33 x10^6/uL (3.50-5.40); RED CELL DISTRIBUTION WIDTH 14.2 % (11.5-14.5); WHITE BLOOD COUNT 9.6 x10^3/uL (4.0-11.0)
[2017-07-21 07:46] LABS: ALBUMIN 1.8 g/dL (3.4-5.0); ALBUMIN/GLOBULIN RATIO 0.5 (1.0-1.7); CALCIUM 8.5 mg/dL (8.5-10.1); CREATININE 4.1 mg/dL (0.6-1.0); GFR 10.8; POTASSIUM 3.7 mmol/L (3.5-5.1); TOTAL BILIRUBIN 0.8 mg/dL (0.2-1.0); TOTAL PROTEIN 5.3 g/dL (6.4-8.2)
[2017-07-21] MEDS ORDERED: fentaNYL PF VIAL 100 MCG/2 ML VIAL IM ONE (09:30)
[2017-07-21] MEDS ORDERED: fentaNYL PF VIAL 100 MCG/2 ML VIAL IV ONE (10:00)
--- NOTE | 2017-07-21 10:06 | PDOC2 ---
EVON SEYMOUR LIVE IN CAREGIVER 07/21/17 1006: CARDIAC CONSULT DATE OF CONSULT Date of Consult DATE: 07/21/17 TIME: 09:51 REASON FOR CONSULT Reason for Consult: CHF REFERRING PHYSICIAN Referring Physician: Dr. Busby SOURCE Source: Chart review, Patient HISTORY OF PRESENT ILLNESS HISTORY OF PRESENT ILLNESS this is a 66 yo female who initially presented to [facility] with complaints of weakness and shortness of breath. Initial labs include D-dimer 3.24, Lactic 3.0, NT Pro BNP 5705. CXR without vascular congestion. Was transferred to [facility] for further evaluation and care with concerns for sepsis and elevated D-dimer. Patient reports "overdoing" it yesterday. Had 3 different appointments scheduled yesterday, which she reports as "too much." Was extremely tired, but went ahead and went to HD late yesterday evening. Upon arriving home, was extremely weak and unable to get out of the care. Neighbor came to assist but was still unable to get out of the car. Developed chills and was slightly short of breath during that time. Combined with the weakness, decided to call EMS. Patient presently denies any SOA or orthopnea. Does report some mild increasing LE edema and pain. Has missed a few HD runs recently due to graft malfunction. Denies any chest pain, palpitations, or nausea/vomiting. No recent illness or fevers. PAST MEDICAL HISTORY Past Medical History Cardiovascular: AFIB, CHF, HTN, chronic lymphedema/venous insufficiency, DLP Pulmonary: MATTHEW- no CPAP CENTRAL NERVOUS SYSTEM: Peripheral neuropathy GI: GERD Heme/Onc: Anemia of chronic disease Hepatobiliary: GUILLORY Psych: Anxiety Musculoskeletal: Osteoarthritis, obesity Rheumatologic: No pertinent hx Infectious disease: No pertinent hx ENT: No pertinent hx Renal/: ESRD on HD Endocrine: Diabetes (2) Dermatology:Other (chronic lymphedema/venous insufficiency PAST SURGICAL HISTORY Past Surgical History Appendectomy, Cholecystectomy, , Hysterectomy, Other (gastric stapling , abdominal mesh remova complicated by liver failure; pannus resection FAMILY HISTORY Family History: Cancer (colon ), Coronary Artery Disease SOCIAL HISTORY Social History Smoke: No ALCOHOL: none Drugs: None Lives: with Family ALLERGIES ALLERGIES: Coded Allergies: No Known Drug Allergies (Unverified , 05/25/17) ROS Review of System 14 point ROS conducted with pertinent positives noted above in HPI. PHYSICAL EXAM PHYSICAL EXAM General: Alert, Oriented X3, Cooperative. appears fatigued Lungs: Clear to auscultation, diminished bases. No crackles Heart: Other (IRRR; tele: atrial fib) Abdomen: Normal bowel sounds, Soft, Other (truncal obesity) Extremities: Normal pulses, 1-2+ bilateral LE edema with erythema Skin: No rashes Neuro: Normal speech Psych/Mental Status: Mental status NL MUSCULOSKELETAL: Osteoarthritic changes both hands VITALS VITALS Vital Signs Date Time Temp Pulse Resp B/P (MAP) Pulse Ox O2 Delivery O2 Flow Rate FiO2 07/21/17 08:00 Nasal Cannula 1.0 07/21/17 06:28 99.1 94 20 119/54 (75) 100 99.1 LABS Lab: Laboratory Tests Test 07/21/17 07:20 White Blood Count 9.6 x10^3/uL (4.0-11.0) Red Blood Count 3.33 x10^6/uL (3.50-5.40) Hemoglobin 10.5 g/dL (12.0-15.5) Hematocrit 31.7 % (36.0-47.0) Mean Corpuscular Volume 95 fL (79-100) Mean Corpuscular Hemoglobin 32 pg (25-35) Mean Corpuscular Hemoglobin Concent 33 g/dL (31-37) Red Cell Distribution Width 14.2 % (11.5-14.5) Platelet Count 191 x10^3/uL (140-400) Neutrophils (%) (Auto) 73 % (31-73) Lymphocytes (%) (Auto) 17 % (24-48) Monocytes (%) (Auto) 8 % (0-9) Eosinophils (%) (Auto) 1 % (0-3) Basophils (%) (Auto) 1 % (0-3) Neutrophils # (Auto) 7.1 x10^3uL (1.8-7.7) Lymphocytes # (Auto) 1.7 x10^3/uL (1.0-4.8) Monocytes # (Auto) 0.7 x10^3/uL (0.0-1.1) Eosinophils # (Auto) 0.1 x10^3/uL (0.0-0.7) Basophils # (Auto) 0.1 x10^3/uL (0.0-0.2) Sodium Level 139 mmol/L (136-145) Potassium Level 3.7 mmol/L (3.5-5.1) Chloride Level 100 mmol/L (98-107) Carbon Dioxide Level 31 mmol/L (21-32) Anion Gap 8 (6-14) Blood Urea Nitrogen 22 mg/dL (7-20) Creatinine 4.1 mg/dL (0.6-1.0) Estimated GFR (Cockcroft-Gault) 10.8 BUN/Creatinine Ratio 5 (6-20) Glucose Level 232 mg/dL (70-99) Lactic Acid Level 1.3 mmol/L (0.4-2.0) Calcium Level 8.5 mg/dL (8.5-10.1) Total Bilirubin 0.8 mg/dL (0.2-1.0) Aspartate Amino Transf (AST/SGOT) 29 U/L (15-37) Alanine Aminotransferase (ALT/SGPT) 27 U/L (14-59) Alkaline Phosphatase 512 U/L (46-116) Total Protein 5.3 g/dL (6.4-8.2) Albumin 1.8 g/dL (3.4-5.0) Albumin/Globulin Ratio 0.5 (1.0-1.7) ECHOCARDIOGRAM ECHOCARDIOGRAM <Conclusion> The left ventricular systolic function is normal. The Ejection Fraction is 60-65%. There is normal LV segmental wall motion. The left atrium is mildly dilated. Mild mitral regurgitation. Moderate tricuspid regurgitation. The pulmonary artery systolic pressure is estimated at 66 mmHg. There is severe pulmonary hypertension. There is no evidence of significant pericardial effusion. DATE: 01/31/17805 HEART CATH HEART CATH Right Heart Cath DATE: 02/06/17 1133 FINDINGS 1. Intracardiac pressures: Mean right atrial pressure 17 mmHg, right ventricle pressure 75/4 mmHg, pulmonary arterial pressure 71/32 mmHg, mean PA pressure 49 mmHg, mean pulmonary capillary wedge pressure 21 mmHg. 2. Oxygen saturations: Right atrium 63.8%, pulmonary artery 60.6%, femoral artery 94%. No evidence for intracardiac shunt. 3. Cardiac output by thermodilution method 7 L/m Conclusion 1. Moderate pulmonary hypertension 2. Elevated pulmonary capillary wedge pressure of 21 mmHg consistent with decompensated left-sided heart failure 3. No evidence for intracardiac shunt ASSESSMENT/PLAN ASSESSMENT/PLAN 1. Acute on chronic diastolic HF: LVEF 60-65% 2. Chronic persistent atrial fib; rate intermittently elevated overnight; now controlled 3 Elevated d-dimer 4. ESRD on HD 5. Lactic acidosis 6. Hypertension 7. Chronic lymphedema/venous insufficiency 8. Diabetes 9. Dyslipidemia 10. Morbid obesity 11. MATTHEW Recommendations Fluid offloading via HD. Encouraged compliance with treatment Consider converting Coreg to Toprol if HR noted to be elevated overnight. Resume ASA for stroke prevention. [id number] ^, would benefit from OAC, but she is not able to afford NOAC and unsure as to wether she wants Coumadin. Reassess on an outpatient basis. Outpatient follow up has been previously limited due to financial constraints; now has insurance coverage. Continue supportive care from a CV standpoint. Problems: LEON GARDNER MD 07/21/17 2240: CARDIAC CONSULT ALLERGIES ALLERGIES: Coded Allergies: No Known Drug Allergies (Unverified , 05/25/17) ASSESSMENT/PLAN ASSESSMENT/PLAN Pt. seen and examined. Agree with above WATER RESOURCE ENGINEER note. Problems: EVON SEYMOUR APRN Jul 21, 2017 10:06 LEON GARDNER MD Jul 21, 2017 22:40
[2017-07-21 11:00] VITALS: BP 114/66
--- NOTE | 2017-07-21 11:44 | PDOC2 ---
CONSULT Date of Consult Date of Consult DATE: 07/21/17 TIME: 11:38 Reason for Consult Reason for Consult: ESRD Referring Physician Referring Physician: LAKESHIA Identification/Chief Complaint Chief Complaint WEAKNESS AND SOB Problems: Source Source: Chart review, Patient History of Present Illness Reason for Visit: THIS IS A 66 YR OLD ESRD PT WITH SOB AND WEAKNESS. NO PULMONARY VASCULAR CONGESTION ON XRAY. HX PERTINENT FOR DM AND HTN AND RELATED ESRD. HAS HD ON TTS. TODAY IS HER REGULAR DAY. LABS ARE C/W ESRD. CARDIOLOGY EVAL ONGOING Past Medical History Cardiovascular: AFIB, CHF, HTN, Hyperlipidemia, Other Pulmonary: Other CENTRAL NERVOUS SYSTEM: Periperal neuropathy, Other GI: GERD, Other Heme/Onc: Anemia NOS Hepatobiliary: Other Psych: Anxiety Musculoskeletal: Osteoarthritis Rheumatologic: Gout Renal/: Chronic renal insuff Endocrine: Diabetes Past Surgical History Past Surgical History: Appendectomy, Cholecystectomy, , Hysterectomy, Other Family History Family History: Cancer (colon ), Coronary Artery Disease Social History ALCOHOL: none Drugs: None Lives: with Family Domestic Violence: Neg Current Medications Current Medications Current Medications Fentanyl Citrate (Fentanyl 2ml Vial) 25 mcg 1X ONCE IM ; Start 07/21/17 at 09: 30; Stop 07/21/17 at 09:31; Status DC Fentanyl Citrate (Fentanyl 2ml Vial) 25 mcg 1X ONCE IV Last administered on t 10:00; Start 07/21/17 at 10:00; Stop 07/21/17 at 10:02; Status DC Active Scripts Active Miralax (Polyethylene Glycol 3350) 119 Gm Powder 17 Gm PO BID hold for loose BM Levemir Flextouch (Insulin Detemir) 100 Unit/1 Ml Insuln.pen 28 Units SQ QHS Carvedilol 6.25 Mg Tablet 6.25 Mg PO BIDWMEALS Reported Cipro (Ciprofloxacin Hcl) 250 Mg Tablet 1 Tab PO TID 10 Days TID for 10 days for left arm infection Humalog (Insulin Lispro) 100 Unit/1 Ml Cartridge 30 Unit SQ TIDAC Aspirin 81 Mg Tab.chew 1 Tab PO DAILY Glimepiride 4 Mg Tablet 1 Tab PO DAILY Gabapentin 300 Mg Capsule 300 Mg PO PRN TID PRN Omeprazole 20 Mg Capsule.dr 1 Cap PO DAILY Michelle-Edwin Tablet (Folic Acid/Vitamin B Comp W-C) 0.8 Mg Tablet 0.8 Mg PO DAILY Cyclobenzaprine Hcl 10 Mg Tablet 1 Tab PO BID Allergies Allergies: Coded Allergies: No Known Drug Allergies (Unverified , 05/25/17) ROS General: YES: Fatigue, Appetite PSYCHOLOGICAL ROS: YES: Depression Eyes: Yes Decreased vision HEENT: YES: Heacaches, Nasal congestion ALLERGY AND IMMUNOLOGY: YES: Seasonal Allergies Respiratory: YES: Cough, Orthopnea, Shortness of breath Cardiovascular: yes Orthopnea, yes Edema Gastrointestinal: Yes Constipation Genitourinary: YES Frequency Musculoskeletal: Yes Joint Stiffness, Yes Muscular Weakness Neurological: Yes Weakness Skin: Yes Dry Skin Physical Exam General: Alert, Oriented X3, Cooperative, No acute distress HEENT: Atraumatic, PERRLA Lungs: Clear to auscultation, Other (DECREAED AT BASES) Heart: Regular rate, Normal S1, Normal S2 Abdomen: Normal bowel sounds, Soft, No tenderness Extremities: No clubbing, No edema Skin: No breakdown Neuro: Normal speech, Cranial nerves 3-12 NL Psych/Mental Status: Mental status NL, Mood NL MUSCULOSKELETAL: No deformity, No swelling Vitals VITALS Vital Signs Date Time Temp Pulse Resp B/P (MAP) Pulse Ox O2 Delivery O2 Flow Rate FiO2 07/21/17 11:00 98.2 77 24 114/66 (82) 97 Room Air 98.2 07/21/17 10:30 1.0 Labs Labs Laboratory Tests Test 07/21/17 07:20 White Blood Count 9.6 x10^3/uL (4.0-11.0) Red Blood Count 3.33 x10^6/uL (3.50-5.40) Hemoglobin 10.5 g/dL (12.0-15.5) Hematocrit 31.7 % (36.0-47.0) Mean Corpuscular Volume 95 fL (79-100) Mean Corpuscular Hemoglobin 32 pg (25-35) Mean Corpuscular Hemoglobin Concent 33 g/dL (31-37) Red Cell Distribution Width 14.2 % (11.5-14.5) Platelet Count 191 x10^3/uL (140-400) Neutrophils (%) (Auto) 73 % (31-73) Lymphocytes (%) (Auto) 17 % (24-48) Monocytes (%) (Auto) 8 % (0-9) Eosinophils (%) (Auto) 1 % (0-3) Basophils (%) (Auto) 1 % (0-3) Neutrophils # (Auto) 7.1 x10^3uL (1.8-7.7) Lymphocytes # (Auto) 1.7 x10^3/uL (1.0-4.8) Monocytes # (Auto) 0.7 x10^3/uL (0.0-1.1) Eosinophils # (Auto) 0.1 x10^3/uL (0.0-0.7) Basophils # (Auto) 0.1 x10^3/uL (0.0-0.2) Sodium Level 139 mmol/L (136-145) Potassium Level 3.7 mmol/L (3.5-5.1) Chloride Level 100 mmol/L (98-107) Carbon Dioxide Level 31 mmol/L (21-32) Anion Gap 8 (6-14) Blood Urea Nitrogen 22 mg/dL (7-20) Creatinine 4.1 mg/dL (0.6-1.0) Estimated GFR (Cockcroft-Gault) 10.8 BUN/Creatinine Ratio 5 (6-20) Glucose Level 232 mg/dL (70-99) Lactic Acid Level 1.3 mmol/L (0.4-2.0) Calcium Level 8.5 mg/dL (8.5-10.1) Total Bilirubin 0.8 mg/dL (0.2-1.0) Aspartate Amino Transf (AST/SGOT) 29 U/L (15-37) Alanine Aminotransferase (ALT/SGPT) 27 U/L (14-59) Alkaline Phosphatase 512 U/L (46-116) Total Protein 5.3 g/dL (6.4-8.2) Albumin 1.8 g/dL (3.4-5.0) Albumin/Globulin Ratio 0.5 (1.0-1.7) Laboratory Tests Test 07/21/17 07:20 White Blood Count 9.6 x10^3/uL (4.0-11.0) Red Blood Count 3.33 x10^6/uL (3.50-5.40) Hemoglobin 10.5 g/dL (12.0-15.5) Hematocrit 31.7 % (36.0-47.0) Mean Corpuscular Volume 95 fL (79-100) Mean Corpuscular Hemoglobin 32 pg (25-35) Mean Corpuscular Hemoglobin Concent 33 g/dL (31-37) Red Cell Distribution Width 14.2 % (11.5-14.5) Platelet Count 191 x10^3/uL (140-400) Neutrophils (%) (Auto) 73 % (31-73) Lymphocytes (%) (Auto) 17 % (24-48) Monocytes (%) (Auto) 8 % (0-9) Eosinophils (%) (Auto) 1 % (0-3) Basophils (%) (Auto) 1 % (0-3) Neutrophils # (Auto) 7.1 x10^3uL (1.8-7.7) Lymphocytes # (Auto) 1.7 x10^3/uL (1.0-4.8) Monocytes # (Auto) 0.7 x10^3/uL (0.0-1.1) Eosinophils # (Auto) 0.1 x10^3/uL (0.0-0.7) Basophils # (Auto) 0.1 x10^3/uL (0.0-0.2) Sodium Level 139 mmol/L (136-145) Potassium Level 3.7 mmol/L (3.5-5.1) Chloride Level 100 mmol/L (98-107) Carbon Dioxide Level 31 mmol/L (21-32) Anion Gap 8 (6-14) Blood Urea Nitrogen 22 mg/dL (7-20) Creatinine 4.1 mg/dL (0.6-1.0) Estimated GFR (Cockcroft-Gault) 10.8 BUN/Creatinine Ratio 5 (6-20) Glucose Level 232 mg/dL (70-99) Lactic Acid Level 1.3 mmol/L (0.4-2.0) Calcium Level 8.5 mg/dL (8.5-10.1) Total Bilirubin 0.8 mg/dL (0.2-1.0) Aspartate Amino Transf (AST/SGOT) 29 U/L (15-37) Alanine Aminotransferase (ALT/SGPT) 27 U/L (14-59) Alkaline Phosphatase 512 U/L (46-116) Total Protein 5.3 g/dL (6.4-8.2) Albumin 1.8 g/dL (3.4-5.0) Albumin/Globulin Ratio 0.5 (1.0-1.7) Assessment/Plan Assessment/Plan IMP ANEMIA CHF DM II HTN ESRD PLAN HD TODAY UF TO DW ENC FLUID LIMITS ENC COMPLIANCE WITH HD CARDIOLOGY EVAL AND TX DIANA LUDWIG MD Jul 21, 2017 11:44
[2017-07-21] MEDS ORDERED: INSULIN ASPART 300 UNITS/3 ML INSULN.PEN SQ SCH (12:00)
[2017-07-21] MEDS ORDERED: DEXTROSE 50% 25 GM / 50ML DISP.SYRIN. IV PRN ×2 (12:00→13:45)
[2017-07-21] MEDS: GABAPENTIN 300 MG CAPSULE. PO PRN ×3 (13:54→23:44)
[2017-07-21] MEDS: ASPIRIN 325 MG TABLET PO SCH (13:54)
[2017-07-21] MEDS ORDERED: ASPIRIN CHEWABLE 81 MG TABLET. PO SCH (14:00)
[2017-07-21 15:00] VITALS: BP 117/59
[2017-07-21] MEDS ORDERED: LIDOCAINE 1% PF 2 ML VIAL. INJ ONE (16:00)
[2017-07-21] MEDS: INSULIN ASPART 300 UNITS/3 ML INSULN.PEN SQ SCH ×2 (16:30→16:33)
[2017-07-21] MEDS: CARVEDILOL 6.25 MG TABLET. PO SCH (16:32)
[2017-07-21] MEDS: oxyCODONE IR 5 MG TABLET PO PRN ×2 (17:15→23:44)
--- NOTE | 2017-07-21 18:02 | HP ---
ADMIT DATE: 07/21/2017 CHIEF COMPLAINT: Generalized weakness, fatigue, fevers. HISTORY OF PRESENT ILLNESS: The patient is a 66-year-old woman, well known to our service with past medical history of end-stage renal disease, CHF among others, who presented from dialysis yesterday with subjective fevers and rigors and generalized weakness, fatigue. She relates that she thinks she overdid it yesterday as she had multiple medical appointments including shunt revision and dialysis. By the end of the day, she was just too tired to do anything. She relates further that she has had trouble twice over the past 10 days with her shunt not functioning and therefore had to skip dialysis. She did not receive dialysis last Thursday and is due today. She did, however, receive dialysis late last night. However, when she arrived home, she was unable to get out of the car, was so weak. EMS was therefore called. Currently, she feels much better. She still is fatigued, but denies any shortness of breath or chest pain. Denies any other symptoms. PAST MEDICAL HISTORY: Diabetes type 2, end-stage renal disease, CHF, AFib, hypertension, peripheral vascular disease/venous insufficiency, obstructive sleep apnea, peripheral neuropathy, anemia, GUILLORY, osteoarthritis, status post appendectomy, cholecystectomy, , hysterectomy, gastric stapling. FAMILY HISTORY: Colon cancer, CAD. SOCIAL HISTORY: Lives with her . No toxic habits. ALLERGIES: No known drug allergies. MEDICATIONS: MAR reconciled with home medications. REVIEW OF SYSTEMS: Positive as per HPI. Rest of organ system review is negative. PHYSICAL EXAMINATION: VITAL SIGNS: From today show a blood pressure of 114/66, heart rate of 77, respiratory rate at 24. She is afebrile. GENERAL: This is a morbidly obese 66-year-old woman, alert and oriented, in no acute distress. HEENT: Shows no scleral icterus. NECK: Supple. LUNGS: Clear to auscultation bilaterally. HEART: Regular rate and rhythm. ABDOMEN: Obese, positive bowel sounds. EXTREMITIES: Show chronic venous stasis bilaterally with blister type formation, minimal pitting edema, but positive woody edema. LABORATORY DATA: CBC with a WBC of 9.6, hemoglobin 10.5, platelets of 191. Chemistries with a BUN and creatinine of 22 and 4.1, normal electrolytes, glucose at 232, alkaline phosphatase at 512. Transaminases and bilirubin within normal limits. Total protein 5.3, albumin 1.8. Imaging studies obtained at [facility] reveal no infiltrates. ASSESSMENT AND PLAN: The patient is a 66-year-old woman presenting with fatigue, possibly rigors, although cannot rule out that she was simply muscle fatigued after an extraneous day. Renal consult has been obtained. She will receive dialysis again today. Electrolytes actually look well within normal limits. We will continue to monitor. Her blood sugars on the other hand are poorly controlled. Home medications will be continued. We will monitor with insulin sliding scale and adjust her insulin regimen as needed. All her other home medications will be continued as well. The patient does have a history of congestive heart failure, although no clearcut signs or symptoms of an exacerbation at this time. Cardiology has been requested by the Emergency Room team. Appreciate the input. Continue medications for the time being. Fluid status will be adjusted with hemodialysis/ultrafiltration. EDMAR BOLAÑOS MD DR: THALIA/nts JOB#: [id number] / [id number] LACY Moses
[2017-07-21] MEDS ORDERED: IV NORMAL SALINE 1000ML BAG 1,000 ML IV PRN (18:58)
[2017-07-21] MEDS ORDERED: ALBUMIN HUMAN 25% 200 ML IV PRN (19:00)
[2017-07-21] MEDS ORDERED: DIALYSIS PATIENT. MC PRN (19:00)
[2017-07-21] MEDS: POLYETHYLENE GLYCOL 3350 17 GM PACKET. PO SCH (21:00)
[2017-07-21] MEDS: INSULIN DETEMIR 300 UNITS/3 ML INSULN.PEN. SQ SCH (21:41)
[2017-07-21 23:00] VITALS: BP 127/60
[2017-07-22] VITALS (8 sets, daily range): BP systolic 93–158; BP diastolic 49–85
[2017-07-22 05:24] LABS: BASO # 0.1 x10^3/uL (0.0-0.2); BASO % 1 % (0-3); EOS % 3 % (0-3); HEMOGLOBIN 11.9 g/dL (12.0-15.5); LYMPH # 2.4 x10^3/uL (1.0-4.8); LYMPH % 30 % (24-48); MEAN CORPUSCULAR HEMOGLOBIN 32 pg (25-35); MEAN CORPUSCULAR HGB CONC 33 g/dL (31-37); MEAN CORPUSCULAR VOLUME 96 fL (79-100); MONO % 8 % (0-9); NEUT % 58 % (31-73); PLATELET COUNT 249 x10^3/uL (140-400); RED BLOOD COUNT 3.77 x10^6/uL (3.50-5.40); RED CELL DISTRIBUTION WIDTH 14.2 % (11.5-14.5); WHITE BLOOD COUNT 8.1 x10^3/uL (4.0-11.0)
[2017-07-22 06:04] LABS: ALBUMIN 2.1 g/dL (3.4-5.0); ALBUMIN/GLOBULIN RATIO 0.5 (1.0-1.7); CALCIUM 8.8 mg/dL (8.5-10.1); GFR 15.5; POTASSIUM 3.7 mmol/L (3.5-5.1); TOTAL BILIRUBIN 0.6 mg/dL (0.2-1.0); TOTAL PROTEIN 6.2 g/dL (6.4-8.2)
[2017-07-22] MEDS: INSULIN ASPART 300 UNITS/3 ML INSULN.PEN SQ SCH ×7 (07:30→16:32)
[2017-07-22] MEDS: ASPIRIN 325 MG TABLET PO SCH (10:13)
[2017-07-22] MEDS: GLIMEPIRIDE 2 MG TABLET. PO SCH (10:13)
[2017-07-22] MEDS: PANTOPRAZOLE 40 MG TABLET.DR. PO SCH (10:13)
[2017-07-22] MEDS: FOLIC/VIT B COMP W-C (RENAL) TABLET. PO SCH (10:13)
[2017-07-22] MEDS: CARVEDILOL 6.25 MG TABLET. PO SCH ×3 (10:13→16:31)
[2017-07-22] MEDS: POLYETHYLENE GLYCOL 3350 17 GM PACKET. PO SCH ×2 (10:14→20:31)
--- NOTE | 2017-07-22 11:06 | PDOC ---
Renal-Progress Notes Subjective Notes Notes NONE History of Present Illness Hx of present illness NO CHANGE Vitals Vitals Vital Signs Date Time Temp Pulse Resp B/P (MAP) Pulse Ox O2 Delivery O2 Flow Rate FiO2 07/22/17 10:29 98.6 80 17 129/69 (89) 93 Room Air 98.6 07/22/17 03:00 2.0 Weight Weight [ ] I.O. Intake and Output Intake and Output 07/22/17 07:00 Intake Total 600 ml Output Total 100 ml Balance 500 ml Intake Oral 600 ml Output Urine Total 100 ml Labs Labs Laboratory Tests Test 07/21/17 11:50 07/21/17 20:46 07/22/17 04:05 07/22/17 07:14 Glucose (Fingerstick) 259 mg/dL (70-99) 115 mg/dL (70-99) 197 mg/dL (70-99) White Blood Count 8.1 x10^3/uL (4.0-11.0) Red Blood Count 3.77 x10^6/uL (3.50-5.40) Hemoglobin 11.9 g/dL (12.0-15.5) Hematocrit 36.0 % (36.0-47.0) Mean Corpuscular Volume 96 fL (79-100) Mean Corpuscular Hemoglobin 32 pg (25-35) Mean Corpuscular Hemoglobin Concent 33 g/dL (31-37) Red Cell Distribution Width 14.2 % (11.5-14.5) Platelet Count 249 x10^3/uL (140-400) Neutrophils (%) (Auto) 58 % (31-73) Lymphocytes (%) (Auto) 30 % (24-48) Monocytes (%) (Auto) 8 % (0-9) Eosinophils (%) (Auto) 3 % (0-3) Basophils (%) (Auto) 1 % (0-3) Neutrophils # (Auto) 4.7 x10^3uL (1.8-7.7) Lymphocytes # (Auto) 2.4 x10^3/uL (1.0-4.8) Monocytes # (Auto) 0.7 x10^3/uL (0.0-1.1) Eosinophils # (Auto) 0.3 x10^3/uL (0.0-0.7) Basophils # (Auto) 0.1 x10^3/uL (0.0-0.2) Sodium Level 138 mmol/L (136-145) Potassium Level 3.7 mmol/L (3.5-5.1) Chloride Level 100 mmol/L (98-107) Carbon Dioxide Level 29 mmol/L (21-32) Anion Gap 9 (6-14) Blood Urea Nitrogen 12 mg/dL (7-20) Creatinine 3.0 mg/dL (0.6-1.0) Estimated GFR (Cockcroft-Gault) 15.5 BUN/Creatinine Ratio 4 (6-20) Glucose Level 256 mg/dL (70-99) Calcium Level 8.8 mg/dL (8.5-10.1) Total Bilirubin 0.6 mg/dL (0.2-1.0) Aspartate Amino Transf (AST/SGOT) 24 U/L (15-37) Alanine Aminotransferase (ALT/SGPT) 26 U/L (14-59) Alkaline Phosphatase 518 U/L (46-116) Total Protein 6.2 g/dL (6.4-8.2) Albumin 2.1 g/dL (3.4-5.0) Albumin/Globulin Ratio 0.5 (1.0-1.7) Review of Systems Constitutional: yes: alert, oriented Ears/Nose/Throat: Yes: no symptom reported Eyes: Yes: no symptom reported Pulmonary: Yes dyspnea Cardiovascular: Yes no symptom reported Genitourinary: Yes: no symptom reported Psychiatric/Neurological: Yes: no symptom reported Endocrine: Yes: no symptom reported Physical Exam General Appearance: no apparent distress Skin: warm Respiratory: decreased breath sounds Heart: S1S2 Abdomen: soft, bowel sounds present Extremities: pulses present Neurology: oriented Musculoskeletal: Osteoarthritis Assessment Assessment IMP ESRD ANEMIA ACUTE DIASTOLIC CHF PLAN CARDIOLOGY EVAL HD TOMORROW DIANA LUDWIG MD Jul 22, 2017 11:06
--- NOTE | 2017-07-22 14:27 | PDOC ---
PROGRESS NOTES Chief Complaint Chief Complaint cont have generalized weakness mild Acute on chronic diastolic HF: LVEF 60-65% Chronic persistent atrial fib , no AC Elevated d-dimer Severe PHTN ESRD on HD TTSat leukocytosis, reactive likely SIRS , no organ dysfunction Lactic acidosis Hypertension Chronic lymphedema/venous insufficiency Diabetes 2 on insulin Dyslipidemia Morbid obesity BMI 35 vitD deficiency MATTHEW severe malnutrition, with ESRD, chronic dz h/o right Large rotator cuff tear plan: fu with renal, cont HD tts fu with card on asa only, need AC likely cont insulin, levemir 28u qhs, aspart 20u tid, SSI ptot add Vit D History of Present Illness History of Present Illness ROS: no fever, chills, sob or chest pain cont have generalized weakness Vitals Vitals Vital Signs Date Time Temp Pulse Resp B/P (MAP) Pulse Ox O2 Delivery O2 Flow Rate FiO2 07/22/17 10:29 98.6 80 17 129/69 (89) 93 Room Air 98.6 07/22/17 03:00 2.0 Physical Exam General: Alert, Oriented X3, Cooperative, No acute distress Heart: Regular rate, Normal S1, Normal S2 Lungs: Clear Abdomen: Normal bowel sounds, Soft, No tenderness Extremities: No clubbing, No edema Skin: No breakdown Labs LABS Laboratory Tests Test 07/21/17 20:46 07/22/17 04:05 07/22/17 07:14 07/22/17 11:07 Glucose (Fingerstick) 115 mg/dL (70-99) 197 mg/dL (70-99) 271 mg/dL (70-99) White Blood Count 8.1 x10^3/uL (4.0-11.0) Red Blood Count 3.77 x10^6/uL (3.50-5.40) Hemoglobin 11.9 g/dL (12.0-15.5) Hematocrit 36.0 % (36.0-47.0) Mean Corpuscular Volume 96 fL (79-100) Mean Corpuscular Hemoglobin 32 pg (25-35) Mean Corpuscular Hemoglobin Concent 33 g/dL (31-37) Red Cell Distribution Width 14.2 % (11.5-14.5) Platelet Count 249 x10^3/uL (140-400) Neutrophils (%) (Auto) 58 % (31-73) Lymphocytes (%) (Auto) 30 % (24-48) Monocytes (%) (Auto) 8 % (0-9) Eosinophils (%) (Auto) 3 % (0-3) Basophils (%) (Auto) 1 % (0-3) Neutrophils # (Auto) 4.7 x10^3uL (1.8-7.7) Lymphocytes # (Auto) 2.4 x10^3/uL (1.0-4.8) Monocytes # (Auto) 0.7 x10^3/uL (0.0-1.1) Eosinophils # (Auto) 0.3 x10^3/uL (0.0-0.7) Basophils # (Auto) 0.1 x10^3/uL (0.0-0.2) Sodium Level 138 mmol/L (136-145) Potassium Level 3.7 mmol/L (3.5-5.1) Chloride Level 100 mmol/L (98-107) Carbon Dioxide Level 29 mmol/L (21-32) Anion Gap 9 (6-14) Blood Urea Nitrogen 12 mg/dL (7-20) Creatinine 3.0 mg/dL (0.6-1.0) Estimated GFR (Cockcroft-Gault) 15.5 BUN/Creatinine Ratio 4 (6-20) Glucose Level 256 mg/dL (70-99) Hemoglobin A1c 7.4 % (4.8-5.6) Calcium Level 8.8 mg/dL (8.5-10.1) Total Bilirubin 0.6 mg/dL (0.2-1.0) Aspartate Amino Transf (AST/SGOT) 24 U/L (15-37) Alanine Aminotransferase (ALT/SGPT) 26 U/L (14-59) Alkaline Phosphatase 518 U/L (46-116) Total Protein 6.2 g/dL (6.4-8.2) Albumin 2.1 g/dL (3.4-5.0) Albumin/Globulin Ratio 0.5 (1.0-1.7) Comment Review of Relevant I have reviewed the following items kai (where applicable) has been applied. Labs Laboratory Tests Test 07/21/17 07:20 07/21/17 08:34 07/21/17 11:50 07/21/17 20:46 White Blood Count 9.6 x10^3/uL (4.0-11.0) Red Blood Count 3.33 x10^6/uL (3.50-5.40) Hemoglobin 10.5 g/dL (12.0-15.5) Hematocrit 31.7 % (36.0-47.0) Mean Corpuscular Volume 95 fL (79-100) Mean Corpuscular Hemoglobin 32 pg (25-35) Mean Corpuscular Hemoglobin Concent 33 g/dL (31-37) Red Cell Distribution Width 14.2 % (11.5-14.5) Platelet Count 191 x10^3/uL (140-400) Neutrophils (%) (Auto) 73 % (31-73) Lymphocytes (%) (Auto) 17 % (24-48) Monocytes (%) (Auto) 8 % (0-9) Eosinophils (%) (Auto) 1 % (0-3) Basophils (%) (Auto) 1 % (0-3) Neutrophils # (Auto) 7.1 x10^3uL (1.8-7.7) Lymphocytes # (Auto) 1.7 x10^3/uL (1.0-4.8) Monocytes # (Auto) 0.7 x10^3/uL (0.0-1.1) Eosinophils # (Auto) 0.1 x10^3/uL (0.0-0.7) Basophils # (Auto) 0.1 x10^3/uL (0.0-0.2) Sodium Level 139 mmol/L (136-145) Potassium Level 3.7 mmol/L (3.5-5.1) Chloride Level 100 mmol/L (98-107) Carbon Dioxide Level 31 mmol/L (21-32) Anion Gap 8 (6-14) Blood Urea Nitrogen 22 mg/dL (7-20) Creatinine 4.1 mg/dL (0.6-1.0) Estimated GFR (Cockcroft-Gault) 10.8 BUN/Creatinine Ratio 5 (6-20) Glucose Level 232 mg/dL (70-99) Lactic Acid Level 1.3 mmol/L (0.4-2.0) Calcium Level 8.5 mg/dL (8.5-10.1) Total Bilirubin 0.8 mg/dL (0.2-1.0) Aspartate Amino Transf (AST/SGOT) 29 U/L (15-37) Alanine Aminotransferase (ALT/SGPT) 27 U/L (14-59) Alkaline Phosphatase 512 U/L (46-116) Total Protein 5.3 g/dL (6.4-8.2) Albumin 1.8 g/dL (3.4-5.0) Albumin/Globulin Ratio 0.5 (1.0-1.7) 25-Hydroxy Vitamin D Total 21.1 ng/mL (30-100) Glucose (Fingerstick) 220 mg/dL (70-99) 259 mg/dL (70-99) 115 mg/dL (70-99) Test 07/22/17 04:05 07/22/17 07:14 07/22/17 11:07 White Blood Count 8.1 x10^3/uL (4.0-11.0) Red Blood Count 3.77 x10^6/uL (3.50-5.40) Hemoglobin 11.9 g/dL (12.0-15.5) Hematocrit 36.0 % (36.0-47.0) Mean Corpuscular Volume 96 fL (79-100) Mean Corpuscular Hemoglobin 32 pg (25-35) Mean Corpuscular Hemoglobin Concent 33 g/dL (31-37) Red Cell Distribution Width 14.2 % (11.5-14.5) Platelet Count 249 x10^3/uL (140-400) Neutrophils (%) (Auto) 58 % (31-73) Lymphocytes (%) (Auto) 30 % (24-48) Monocytes (%) (Auto) 8 % (0-9) Eosinophils (%) (Auto) 3 % (0-3) Basophils (%) (Auto) 1 % (0-3) Neutrophils # (Auto) 4.7 x10^3uL (1.8-7.7) Lymphocytes # (Auto) 2.4 x10^3/uL (1.0-4.8) Monocytes # (Auto) 0.7 x10^3/uL (0.0-1.1) Eosinophils # (Auto) 0.3 x10^3/uL (0.0-0.7) Basophils # (Auto) 0.1 x10^3/uL (0.0-0.2) Sodium Level 138 mmol/L (136-145) Potassium Level 3.7 mmol/L (3.5-5.1) Chloride Level 100 mmol/L (98-107) Carbon Dioxide Level 29 mmol/L (21-32) Anion Gap 9 (6-14) Blood Urea Nitrogen 12 mg/dL (7-20) Creatinine 3.0 mg/dL (0.6-1.0) Estimated GFR (Cockcroft-Gault) 15.5 BUN/Creatinine Ratio 4 (6-20) Glucose Level 256 mg/dL (70-99) Hemoglobin A1c 7.4 % (4.8-5.6) Calcium Level 8.8 mg/dL (8.5-10.1) Total Bilirubin 0.6 mg/dL (0.2-1.0) Aspartate Amino Transf (AST/SGOT) 24 U/L (15-37) Alanine Aminotransferase (ALT/SGPT) 26 U/L (14-59) Alkaline Phosphatase 518 U/L (46-116) Total Protein 6.2 g/dL (6.4-8.2) Albumin 2.1 g/dL (3.4-5.0) Albumin/Globulin Ratio 0.5 (1.0-1.7) Glucose (Fingerstick) 197 mg/dL (70-99) 271 mg/dL (70-99) Laboratory Tests Test 07/21/17 20:46 07/22/17 04:05 07/22/17 07:14 07/22/17 11:07 Glucose (Fingerstick) 115 mg/dL (70-99) 197 mg/dL (70-99) 271 mg/dL (70-99) White Blood Count 8.1 x10^3/uL (4.0-11.0) Red Blood Count 3.77 x10^6/uL (3.50-5.40) Hemoglobin 11.9 g/dL (12.0-15.5) Hematocrit 36.0 % (36.0-47.0) Mean Corpuscular Volume 96 fL (79-100) Mean Corpuscular Hemoglobin 32 pg (25-35) Mean Corpuscular Hemoglobin Concent 33 g/dL (31-37) Red Cell Distribution Width 14.2 % (11.5-14.5) Platelet Count 249 x10^3/uL (140-400) Neutrophils (%) (Auto) 58 % (31-73) Lymphocytes (%) (Auto) 30 % (24-48) Monocytes (%) (Auto) 8 % (0-9) Eosinophils (%) (Auto) 3 % (0-3) Basophils (%) (Auto) 1 % (0-3) Neutrophils # (Auto) 4.7 x10^3uL (1.8-7.7) Lymphocytes # (Auto) 2.4 x10^3/uL (1.0-4.8) Monocytes # (Auto) 0.7 x10^3/uL (0.0-1.1) Eosinophils # (Auto) 0.3 x10^3/uL (0.0-0.7) Basophils # (Auto) 0.1 x10^3/uL (0.0-0.2) Sodium Level 138 mmol/L (136-145) Potassium Level 3.7 mmol/L (3.5-5.1) Chloride Level 100 mmol/L (98-107) Carbon Dioxide Level 29 mmol/L (21-32) Anion Gap 9 (6-14) Blood Urea Nitrogen 12 mg/dL (7-20) Creatinine 3.0 mg/dL (0.6-1.0) Estimated GFR (Cockcroft-Gault) 15.5 BUN/Creatinine Ratio 4 (6-20) Glucose Level 256 mg/dL (70-99) Hemoglobin A1c 7.4 % (4.8-5.6) Calcium Level 8.8 mg/dL (8.5-10.1) Total Bilirubin 0.6 mg/dL (0.2-1.0) Aspartate Amino Transf (AST/SGOT) 24 U/L (15-37) Alanine Aminotransferase (ALT/SGPT) 26 U/L (14-59) Alkaline Phosphatase 518 U/L (46-116) Total Protein 6.2 g/dL (6.4-8.2) Albumin 2.1 g/dL (3.4-5.0) Albumin/Globulin Ratio 0.5 (1.0-1.7) Medications Current Medications Fentanyl Citrate (Fentanyl 2ml Vial) 25 mcg 1X ONCE IM ; Start 07/21/17 at 09: 30; Stop 07/21/17 at 09:31; Status DC Fentanyl Citrate (Fentanyl 2ml Vial) 25 mcg 1X ONCE IV Last administered on 10:00; Start 07/21/17 at 10:00; Stop 07/21/17 at 10:02; Status DC Insulin Aspart (NovoLOG) 0-9 UNITS TIDWMEALS SQ Last administered on 12:10; Start 07/21/17 at 12:00; Stop 07/21/17 at 14:40; Status DC Dextrose (Dextrose 50%-Water Syringe) 12.5 gm PRN Q15MIN PRN IV SEE COMMENTS; Start 07/21/17 at 12:00; Status Cancel Aspirin (Children'S Aspirin) 81 mg DAILY PO ; Start 07/21/17 at 14:00; Stop at 14:00; Status DC Carvedilol (Coreg) 6.25 mg BIDWMEALS PO Last administered on 07/22/17 10:13; Start 07/21/17 at 17:00 Aspirin (Bethanie Aspirin) 325 mg DAILYWBKFT PO Last administered on 07/22/17 10 :13; Start 07/21/17 at 13:45 Vitamin B Complex/ Vitamin C (Michelle-Edwin) 1 tab DAILY PO Last administered on 10:13; Start 07/22/17 at 09:00 Insulin Detemir (Levemir) 28 units QHS SQ Last administered on 07/21/17 21:41 ; Start 07/21/17 at 21:00 Polyethylene Glycol (miraLAX PACKET) 17 gm BID PO Last administered on 10:14; Start 07/21/17 at 21:00 Gabapentin (Neurontin) 300 mg PRN TID PRN PO NERVE PAIN Last administered on 23:44; Start 07/21/17 at 14:00 Glimepiride (Amaryl) 4 mg DAILYWBKFT PO Last administered on 07/22/17 10:13; Start 07/22/17 at 08:00 Insulin Aspart (NovoLOG) 30 units TIDAC SQ Last administered on 07/22/17 12: 29; Start 07/21/17 at 16:30 Pantoprazole Sodium (Protonix) 40 mg DAILYAC PO Last administered on 10:13; Start 07/22/17 at 07:30 Insulin Aspart (NovoLOG) 0-5 UNITS TIDWMEALS SQ Last administered on t 12:30; Start 07/21/17 at 17:00 Dextrose (Dextrose 50%-Water Syringe) 12.5 gm PRN Q15MIN PRN IV SEE COMMENTS; Start 07/21/17 at 13:45 Lidocaine HCl (Xylocaine-Mpf 1% Vial) 2 ml 1X ONCE INJ ; Start 07/21/17 at 16: 00; Stop 07/21/17 at 16:01; Status DC Oxycodone HCl (Roxicodone) 5 mg PRN Q6HRS PRN PO PAIN Last administered on t 23:44; Start 07/21/17 at 17:00 Sodium Chloride 1,000 ml @ 1,000 mls/hr Q1H PRN IV hypotension; Start at 18:58; Stop 07/22/17 at 00:57; Status DC Albumin Human 200 ml @ 200 mls/hr 1X PRN PRN IV Hypotension; Start 07/21/17 at 19:00; Stop 07/22/17 at 00:59; Status DC Info (PHARMACY MONITORING -- do not chart) 1 each PRN DAILY PRN MC SEE COMMENTS ; Start 07/21/17 at 19:00 Active Scripts Active Miralax (Polyethylene Glycol 3350) 119 Gm Powder 17 Gm PO BID hold for loose BM Levemir Flextouch (Insulin Detemir) 100 Unit/1 Ml Insuln.pen 28 Units SQ QHS Carvedilol 6.25 Mg Tablet 6.25 Mg PO BIDWMEALS Reported Humalog (Insulin Lispro) 100 Unit/1 Ml Cartridge 30 Unit SQ TIDAC Aspirin 81 Mg Tab.chew 1 Tab PO DAILY Glimepiride 4 Mg Tablet 1 Tab PO DAILY Gabapentin 300 Mg Capsule 300 Mg PO PRN TID PRN Omeprazole 20 Mg Capsule.dr 1 Cap PO DAILY Michelle-Edwin Tablet (Folic Acid/Vitamin B Comp W-C) 0.8 Mg Tablet 0.8 Mg PO DAILY Cyclobenzaprine Hcl 10 Mg Tablet 1 Tab PO BID Vitals/I & O Vital Sign - Last 24 Hours 07/21/17 07/21/17 07/21/17 07/21/17 15:00 17:15 18:15 20:00 Temp 98.0 98.0 Pulse 68 Resp 22 20 20 B/P (MAP) 117/59 (78) Pulse Ox 98 98 O2 Delivery Nasal Cannula Room Air O2 Flow Rate 1.0 07/21/17 07/21/17 07/22/17 07/22/17 23:00 23:44 00:45 03:00 Temp 98.1 98.3 98.1 98.3 Pulse 98 84 Resp 16 15 B/P (MAP) 127/60 (82) 119/63 (81) Pulse Ox 97 97 100 O2 Delivery Nasal Cannula Room Air Room Air Nasal Cannula O2 Flow Rate 2.0 2.0 07/22/17 07/22/17 07/22/17 07:00 10:13 10:29 Temp 97.6 98.6 97.6 98.6 Pulse 84 84 80 Resp 17 17 B/P (MAP) 119/67 (84) 119/67 129/69 (89) Pulse Ox 92 93 O2 Delivery Room Air Room Air Intake and Output 07/21/17 07/21/17 07/22/17 15:00 23:00 07:00 Intake Total 480 ml 120 ml Output Total 100 ml 0 ml Balance 480 ml 20 ml 0 ml JEANIE WILLAMS MD Jul 22, 2017 14:27
[2017-07-22] MEDS: CHOLECALCIFEROL (VITAMIN D3) 1,000 UNIT TABLET PO SCH (16:25)
[2017-07-22] MEDS: HEPARIN PF for SUB-Q USE 5,000 UNIT/0.5 ML VIAL. SQ SCH ×2 (16:30→20:35)
[2017-07-22] MEDS: oxyCODONE IR 5 MG TABLET PO PRN (20:31)
[2017-07-22] MEDS: GABAPENTIN 300 MG CAPSULE. PO PRN (20:31)
[2017-07-22] MEDS: CYCLOBENZAPRINE 10 MG TABLET. PO SCH (20:31)
[2017-07-22] MEDS: INSULIN DETEMIR 300 UNITS/3 ML INSULN.PEN. SQ SCH (21:47)
[2017-07-23 02:44] VITALS: BP 105/56
[2017-07-23 05:23] LABS: BASO # 0.1 x10^3/uL (0.0-0.2); BASO % 1 % (0-3); EOS % 4 % (0-3); HEMATOCRIT 31.8 % (36.0-47.0); HEMOGLOBIN 10.4 g/dL (12.0-15.5); LYMPH # 2.5 x10^3/uL (1.0-4.8); LYMPH % 34 % (24-48); MEAN CORPUSCULAR HEMOGLOBIN 32 pg (25-35); MEAN CORPUSCULAR HGB CONC 33 g/dL (31-37); MEAN CORPUSCULAR VOLUME 97 fL (79-100); MONO % 8 % (0-9); NEUT % 54 % (31-73); PLATELET COUNT 201 x10^3/uL (140-400); RED BLOOD COUNT 3.29 x10^6/uL (3.50-5.40); RED CELL DISTRIBUTION WIDTH 14.1 % (11.5-14.5); WHITE BLOOD COUNT 7.5 x10^3/uL (4.0-11.0)
[2017-07-23 05:59] LABS: ALBUMIN 1.9 g/dL (3.4-5.0); ALBUMIN/GLOBULIN RATIO 0.6 (1.0-1.7); CALCIUM 8.5 mg/dL (8.5-10.1); CREATININE 4.1 mg/dL (0.6-1.0); GFR 10.8; POTASSIUM 3.6 mmol/L (3.5-5.1); TOTAL BILIRUBIN 0.4 mg/dL (0.2-1.0); TOTAL PROTEIN 5.3 g/dL (6.4-8.2)
[2017-07-23] MEDS: PANTOPRAZOLE 40 MG TABLET.DR. PO SCH (06:06)
[2017-07-23] MEDS: HEPARIN PF for SUB-Q USE 5,000 UNIT/0.5 ML VIAL. SQ SCH ×3 (06:07→21:49)
[2017-07-23] MEDS: INSULIN ASPART 300 UNITS/3 ML INSULN.PEN SQ SCH ×6 (07:30→16:58)
[2017-07-23 07:32] VITALS: BP 119/52
[2017-07-23] MEDS: GLIMEPIRIDE 2 MG TABLET. PO SCH (08:17)
[2017-07-23] MEDS: CHOLECALCIFEROL (VITAMIN D3) 1,000 UNIT TABLET PO SCH (08:17)
[2017-07-23] MEDS: FOLIC/VIT B COMP W-C (RENAL) TABLET. PO SCH (08:17)
[2017-07-23] MEDS: CYCLOBENZAPRINE 10 MG TABLET. PO SCH ×2 (08:18→21:49)
[2017-07-23] MEDS: POLYETHYLENE GLYCOL 3350 17 GM PACKET. PO SCH ×2 (08:18→21:00)
[2017-07-23] MEDS: ASPIRIN 325 MG TABLET PO SCH (08:18)
[2017-07-23] MEDS: oxyCODONE IR 5 MG TABLET PO PRN ×2 (08:19→16:52)
--- NOTE | 2017-07-23 11:49 | PDOC ---
Renal-Progress Notes Subjective Notes Notes C/O OF WEAKNESS History of Present Illness Hx of present illness STABLE Vitals Vitals Vital Signs Date Time Temp Pulse Resp B/P (MAP) Pulse Ox O2 Delivery O2 Flow Rate FiO2 07/23/17 09:29 Room Air 07/23/17 07:32 97.9 77 17 119/52 (74) 94 97.9 Weight Weight [ ] I.O. Intake and Output Intake and Output 07/23/17 07:00 Intake Total 1950 ml Output Total 50 ml Balance 1900 ml Intake Oral 1950 ml Output Urine Total 50 ml # Voids 3 # Bowel Movements 1 Labs Labs Laboratory Tests Test 07/22/17 15:58 07/22/17 20:54 07/23/17 03:40 07/23/17 07:01 Glucose (Fingerstick) 113 mg/dL (70-99) 156 mg/dL (70-99) 87 mg/dL (70-99) White Blood Count 7.5 x10^3/uL (4.0-11.0) Red Blood Count 3.29 x10^6/uL (3.50-5.40) Hemoglobin 10.4 g/dL (12.0-15.5) Hematocrit 31.8 % (36.0-47.0) Mean Corpuscular Volume 97 fL (79-100) Mean Corpuscular Hemoglobin 32 pg (25-35) Mean Corpuscular Hemoglobin Concent 33 g/dL (31-37) Red Cell Distribution Width 14.1 % (11.5-14.5) Platelet Count 201 x10^3/uL (140-400) Neutrophils (%) (Auto) 54 % (31-73) Lymphocytes (%) (Auto) 34 % (24-48) Monocytes (%) (Auto) 8 % (0-9) Eosinophils (%) (Auto) 4 % (0-3) Basophils (%) (Auto) 1 % (0-3) Neutrophils # (Auto) 4.0 x10^3uL (1.8-7.7) Lymphocytes # (Auto) 2.5 x10^3/uL (1.0-4.8) Monocytes # (Auto) 0.6 x10^3/uL (0.0-1.1) Eosinophils # (Auto) 0.3 x10^3/uL (0.0-0.7) Basophils # (Auto) 0.1 x10^3/uL (0.0-0.2) Sodium Level 138 mmol/L (136-145) Potassium Level 3.6 mmol/L (3.5-5.1) Chloride Level 102 mmol/L (98-107) Carbon Dioxide Level 30 mmol/L (21-32) Anion Gap 6 (6-14) Blood Urea Nitrogen 25 mg/dL (7-20) Creatinine 4.1 mg/dL (0.6-1.0) Estimated GFR (Cockcroft-Gault) 10.8 BUN/Creatinine Ratio 6 (6-20) Glucose Level 122 mg/dL (70-99) Calcium Level 8.5 mg/dL (8.5-10.1) Total Bilirubin 0.4 mg/dL (0.2-1.0) Aspartate Amino Transf (AST/SGOT) 15 U/L (15-37) Alanine Aminotransferase (ALT/SGPT) 17 U/L (14-59) Alkaline Phosphatase 373 U/L (46-116) Total Protein 5.3 g/dL (6.4-8.2) Albumin 1.9 g/dL (3.4-5.0) Albumin/Globulin Ratio 0.6 (1.0-1.7) Review of Systems Constitutional: yes: alert, oriented Ears/Nose/Throat: Yes: no symptom reported Eyes: Yes: no symptom reported Pulmonary: Yes dyspnea Cardiovascular: Yes no symptom reported Genitourinary: Yes: no symptom reported Psychiatric/Neurological: Yes: no symptom reported Endocrine: Yes: no symptom reported Physical Exam General Appearance: no apparent distress Skin: warm Respiratory: decreased breath sounds Heart: S1S2 Abdomen: soft, bowel sounds present Extremities: pulses present Neurology: oriented Musculoskeletal: Osteoarthritis Assessment Assessment IMP ESRD ANEMIA ACUTE DIASTOLIC CHF-COMPENSATED DECONDITIONING PLAN HD TODAY UF TO DW WOULD BENEFIT FROM THERAPY DIANA LUDWIG MD Jul 23, 2017 11:49
[2017-07-23] MEDS ORDERED: IV NORMAL SALINE 1000ML BAG 1,000 ML IV PRN (14:33)
[2017-07-23] MEDS ORDERED: DIALYSIS PATIENT. MC PRN (14:45)
[2017-07-23 15:06] VITALS: BP 121/71
--- NOTE | 2017-07-23 15:14 | RAD ---
Portable chest, 07/23/2017: History: Pneumonia Comparison is made to a study from 06/15/2017. The heart size and pulmonary vascularity are normal. No pulmonary infiltrates are seen. There is no evidence of pleural fluid. There are degenerative changes in the spine and at both shoulders. IMPRESSION: No acute cardiopulmonary abnormality is detected.
--- NOTE | 2017-07-23 16:46 | PDOC ---
PROGRESS NOTES Chief Complaint Chief Complaint generalized weakness mild Acute on chronic diastolic HF: LVEF 60-65% Chronic persistent atrial fib , no AC Elevated d-dimer Severe PHTN ESRD on HD TTSat leukocytosis, reactive likely SIRS , no organ dysfunction Lactic acidosis Hypertension Chronic lymphedema/venous insufficiency Diabetes 2 on insulin Dyslipidemia Morbid obesity BMI 35 vitD deficiency MATTHEW severe malnutrition, with ESRD, chronic dz h/o right Large rotator cuff tear plan: fu with renal, cont HD tts fu with card on asa only, need AC likely cont insulin, levemir 28u qhs, aspart 10u tid, SSI ptot add Vit D no cough, afebrile, doubt PNA, check CXR History of Present Illness History of Present Illness ROS: no fever, chills, sob or chest pain cont have generalized weakness pt said yesterday afternoon when she was walking to the bathroom, very weak, sob Vitals Vitals Vital Signs Date Time Temp Pulse Resp B/P (MAP) Pulse Ox O2 Delivery O2 Flow Rate FiO2 07/23/17 15:06 98.5 100 17 121/71 (88) 96 Room Air 98.5 Physical Exam General: Alert, Oriented X3, Cooperative, No acute distress Heart: Regular rate, Normal S1, Normal S2 Lungs: Clear Abdomen: Normal bowel sounds, Soft, No tenderness Extremities: No clubbing, No edema Skin: No breakdown Labs LABS Laboratory Tests Test 07/22/17 20:54 07/23/17 03:40 07/23/17 07:01 07/23/17 13:09 Glucose (Fingerstick) 156 mg/dL (70-99) 87 mg/dL (70-99) 98 mg/dL (70-99) White Blood Count 7.5 x10^3/uL (4.0-11.0) Red Blood Count 3.29 x10^6/uL (3.50-5.40) Hemoglobin 10.4 g/dL (12.0-15.5) Hematocrit 31.8 % (36.0-47.0) Mean Corpuscular Volume 97 fL (79-100) Mean Corpuscular Hemoglobin 32 pg (25-35) Mean Corpuscular Hemoglobin Concent 33 g/dL (31-37) Red Cell Distribution Width 14.1 % (11.5-14.5) Platelet Count 201 x10^3/uL (140-400) Neutrophils (%) (Auto) 54 % (31-73) Lymphocytes (%) (Auto) 34 % (24-48) Monocytes (%) (Auto) 8 % (0-9) Eosinophils (%) (Auto) 4 % (0-3) Basophils (%) (Auto) 1 % (0-3) Neutrophils # (Auto) 4.0 x10^3uL (1.8-7.7) Lymphocytes # (Auto) 2.5 x10^3/uL (1.0-4.8) Monocytes # (Auto) 0.6 x10^3/uL (0.0-1.1) Eosinophils # (Auto) 0.3 x10^3/uL (0.0-0.7) Basophils # (Auto) 0.1 x10^3/uL (0.0-0.2) Sodium Level 138 mmol/L (136-145) Potassium Level 3.6 mmol/L (3.5-5.1) Chloride Level 102 mmol/L (98-107) Carbon Dioxide Level 30 mmol/L (21-32) Anion Gap 6 (6-14) Blood Urea Nitrogen 25 mg/dL (7-20) Creatinine 4.1 mg/dL (0.6-1.0) Estimated GFR (Cockcroft-Gault) 10.8 BUN/Creatinine Ratio 6 (6-20) Glucose Level 122 mg/dL (70-99) Calcium Level 8.5 mg/dL (8.5-10.1) Total Bilirubin 0.4 mg/dL (0.2-1.0) Aspartate Amino Transf (AST/SGOT) 15 U/L (15-37) Alanine Aminotransferase (ALT/SGPT) 17 U/L (14-59) Alkaline Phosphatase 373 U/L (46-116) Total Protein 5.3 g/dL (6.4-8.2) Albumin 1.9 g/dL (3.4-5.0) Albumin/Globulin Ratio 0.6 (1.0-1.7) 25-Hydroxy Vitamin D Total 25.6 ng/mL (30-100) Thyroid Stimulating Hormone (TSH) 0.940 uIU/mL (0.358-3.74) Comment Review of Relevant I have reviewed the following items kai (where applicable) has been applied. Labs Laboratory Tests Test 07/21/17 20:46 07/22/17 04:05 07/22/17 07:14 07/22/17 11:07 Glucose (Fingerstick) 115 mg/dL (70-99) 197 mg/dL (70-99) 271 mg/dL (70-99) White Blood Count 8.1 x10^3/uL (4.0-11.0) Red Blood Count 3.77 x10^6/uL (3.50-5.40) Hemoglobin 11.9 g/dL (12.0-15.5) Hematocrit 36.0 % (36.0-47.0) Mean Corpuscular Volume 96 fL (79-100) Mean Corpuscular Hemoglobin 32 pg (25-35) Mean Corpuscular Hemoglobin Concent 33 g/dL (31-37) Red Cell Distribution Width 14.2 % (11.5-14.5) Platelet Count 249 x10^3/uL (140-400) Neutrophils (%) (Auto) 58 % (31-73) Lymphocytes (%) (Auto) 30 % (24-48) Monocytes (%) (Auto) 8 % (0-9) Eosinophils (%) (Auto) 3 % (0-3) Basophils (%) (Auto) 1 % (0-3) Neutrophils # (Auto) 4.7 x10^3uL (1.8-7.7) Lymphocytes # (Auto) 2.4 x10^3/uL (1.0-4.8) Monocytes # (Auto) 0.7 x10^3/uL (0.0-1.1) Eosinophils # (Auto) 0.3 x10^3/uL (0.0-0.7) Basophils # (Auto) 0.1 x10^3/uL (0.0-0.2) Sodium Level 138 mmol/L (136-145) Potassium Level 3.7 mmol/L (3.5-5.1) Chloride Level 100 mmol/L (98-107) Carbon Dioxide Level 29 mmol/L (21-32) Anion Gap 9 (6-14) Blood Urea Nitrogen 12 mg/dL (7-20) Creatinine 3.0 mg/dL (0.6-1.0) Estimated GFR (Cockcroft-Gault) 15.5 BUN/Creatinine Ratio 4 (6-20) Glucose Level 256 mg/dL (70-99) Hemoglobin A1c 7.4 % (4.8-5.6) Calcium Level 8.8 mg/dL (8.5-10.1) Total Bilirubin 0.6 mg/dL (0.2-1.0) Aspartate Amino Transf (AST/SGOT) 24 U/L (15-37) Alanine Aminotransferase (ALT/SGPT) 26 U/L (14-59) Alkaline Phosphatase 518 U/L (46-116) Total Protein 6.2 g/dL (6.4-8.2) Albumin 2.1 g/dL (3.4-5.0) Albumin/Globulin Ratio 0.5 (1.0-1.7) Test 07/22/17 15:58 07/22/17 20:54 07/23/17 03:40 07/23/17 07:01 Glucose (Fingerstick) 113 mg/dL (70-99) 156 mg/dL (70-99) 87 mg/dL (70-99) White Blood Count 7.5 x10^3/uL (4.0-11.0) Red Blood Count 3.29 x10^6/uL (3.50-5.40) Hemoglobin 10.4 g/dL (12.0-15.5) Hematocrit 31.8 % (36.0-47.0) Mean Corpuscular Volume 97 fL (79-100) Mean Corpuscular Hemoglobin 32 pg (25-35) Mean Corpuscular Hemoglobin Concent 33 g/dL (31-37) Red Cell Distribution Width 14.1 % (11.5-14.5) Platelet Count 201 x10^3/uL (140-400) Neutrophils (%) (Auto) 54 % (31-73) Lymphocytes (%) (Auto) 34 % (24-48) Monocytes (%) (Auto) 8 % (0-9) Eosinophils (%) (Auto) 4 % (0-3) Basophils (%) (Auto) 1 % (0-3) Neutrophils # (Auto) 4.0 x10^3uL (1.8-7.7) Lymphocytes # (Auto) 2.5 x10^3/uL (1.0-4.8) Monocytes # (Auto) 0.6 x10^3/uL (0.0-1.1) Eosinophils # (Auto) 0.3 x10^3/uL (0.0-0.7) Basophils # (Auto) 0.1 x10^3/uL (0.0-0.2) Sodium Level 138 mmol/L (136-145) Potassium Level 3.6 mmol/L (3.5-5.1) Chloride Level 102 mmol/L (98-107) Carbon Dioxide Level 30 mmol/L (21-32) Anion Gap 6 (6-14) Blood Urea Nitrogen 25 mg/dL (7-20) Creatinine 4.1 mg/dL (0.6-1.0) Estimated GFR (Cockcroft-Gault) 10.8 BUN/Creatinine Ratio 6 (6-20) Glucose Level 122 mg/dL (70-99) Calcium Level 8.5 mg/dL (8.5-10.1) Total Bilirubin 0.4 mg/dL (0.2-1.0) Aspartate Amino Transf (AST/SGOT) 15 U/L (15-37) Alanine Aminotransferase (ALT/SGPT) 17 U/L (14-59) Alkaline Phosphatase 373 U/L (46-116) Total Protein 5.3 g/dL (6.4-8.2) Albumin 1.9 g/dL (3.4-5.0) Albumin/Globulin Ratio 0.6 (1.0-1.7) 25-Hydroxy Vitamin D Total 25.6 ng/mL (30-100) Thyroid Stimulating Hormone (TSH) 0.940 uIU/mL (0.358-3.74) Test 07/23/17 13:09 Glucose (Fingerstick) 98 mg/dL (70-99) Laboratory Tests Test 07/22/17 20:54 07/23/17 03:40 07/23/17 07:01 07/23/17 13:09 Glucose (Fingerstick) 156 mg/dL (70-99) 87 mg/dL (70-99) 98 mg/dL (70-99) White Blood Count 7.5 x10^3/uL (4.0-11.0) Red Blood Count 3.29 x10^6/uL (3.50-5.40) Hemoglobin 10.4 g/dL (12.0-15.5) Hematocrit 31.8 % (36.0-47.0) Mean Corpuscular Volume 97 fL (79-100) Mean Corpuscular Hemoglobin 32 pg (25-35) Mean Corpuscular Hemoglobin Concent 33 g/dL (31-37) Red Cell Distribution Width 14.1 % (11.5-14.5) Platelet Count 201 x10^3/uL (140-400) Neutrophils (%) (Auto) 54 % (31-73) Lymphocytes (%) (Auto) 34 % (24-48) Monocytes (%) (Auto) 8 % (0-9) Eosinophils (%) (Auto) 4 % (0-3) Basophils (%) (Auto) 1 % (0-3) Neutrophils # (Auto) 4.0 x10^3uL (1.8-7.7) Lymphocytes # (Auto) 2.5 x10^3/uL (1.0-4.8) Monocytes # (Auto) 0.6 x10^3/uL (0.0-1.1) Eosinophils # (Auto) 0.3 x10^3/uL (0.0-0.7) Basophils # (Auto) 0.1 x10^3/uL (0.0-0.2) Sodium Level 138 mmol/L (136-145) Potassium Level 3.6 mmol/L (3.5-5.1) Chloride Level 102 mmol/L (98-107) Carbon Dioxide Level 30 mmol/L (21-32) Anion Gap 6 (6-14) Blood Urea Nitrogen 25 mg/dL (7-20) Creatinine 4.1 mg/dL (0.6-1.0) Estimated GFR (Cockcroft-Gault) 10.8 BUN/Creatinine Ratio 6 (6-20) Glucose Level 122 mg/dL (70-99) Calcium Level 8.5 mg/dL (8.5-10.1) Total Bilirubin 0.4 mg/dL (0.2-1.0) Aspartate Amino Transf (AST/SGOT) 15 U/L (15-37) Alanine Aminotransferase (ALT/SGPT) 17 U/L (14-59) Alkaline Phosphatase 373 U/L (46-116) Total Protein 5.3 g/dL (6.4-8.2) Albumin 1.9 g/dL (3.4-5.0) Albumin/Globulin Ratio 0.6 (1.0-1.7) 25-Hydroxy Vitamin D Total 25.6 ng/mL (30-100) Thyroid Stimulating Hormone (TSH) 0.940 uIU/mL (0.358-3.74) Medications Current Medications Fentanyl Citrate (Fentanyl 2ml Vial) 25 mcg 1X ONCE IM ; Start 07/21/17 at 09: 30; Stop 07/21/17 at 09:31; Status DC Fentanyl Citrate (Fentanyl 2ml Vial) 25 mcg 1X ONCE IV Last administered on 10:00; Start 07/21/17 at 10:00; Stop 07/21/17 at 10:02; Status DC Insulin Aspart (NovoLOG) 0-9 UNITS TIDWMEALS SQ Last administered on 12:10; Start 07/21/17 at 12:00; Stop 07/21/17 at 14:40; Status DC Dextrose (Dextrose 50%-Water Syringe) 12.5 gm PRN Q15MIN PRN IV SEE COMMENTS; Start 07/21/17 at 12:00; Status Cancel Aspirin (Children'S Aspirin) 81 mg DAILY PO ; Start 07/21/17 at 14:00; Stop at 14:00; Status DC Carvedilol (Coreg) 6.25 mg BIDWMEALS PO Last administered on 07/22/17 16:26; Start 07/21/17 at 17:00 Aspirin (Bethanie Aspirin) 325 mg DAILYWBKFT PO Last administered on 07/23/17 08 :18; Start 07/21/17 at 13:45 Vitamin B Complex/ Vitamin C (Michelle-Edwin) 1 tab DAILY PO Last administered on 08:17; Start 07/22/17 at 09:00 Insulin Detemir (Levemir) 28 units QHS SQ Last administered on 07/22/17 21:47 ; Start 07/21/17 at 21:00 Polyethylene Glycol (miraLAX PACKET) 17 gm BID PO Last administered on 20:31; Start 07/21/17 at 21:00 Gabapentin (Neurontin) 300 mg PRN TID PRN PO NERVE PAIN Last administered on 20:31; Start 07/21/17 at 14:00 Glimepiride (Amaryl) 4 mg DAILYWBKFT PO Last administered on 07/23/17 08:17; Start 07/22/17 at 08:00 Insulin Aspart (NovoLOG) 30 units TIDAC SQ Last administered on 07/22/17 12: 29; Start 07/21/17 at 16:30; Stop 07/22/17 at 14:27; Status DC Pantoprazole Sodium (Protonix) 40 mg DAILYAC PO Last administered on 06:06; Start 07/22/17 at 07:30 Insulin Aspart (NovoLOG) 0-5 UNITS TIDWMEALS SQ Last administered on 12:30; Start 07/21/17 at 17:00 Dextrose (Dextrose 50%-Water Syringe) 12.5 gm PRN Q15MIN PRN IV SEE COMMENTS; Start 07/21/17 at 13:45 Lidocaine HCl (Xylocaine-Mpf 1% Vial) 2 ml 1X ONCE INJ ; Start 07/21/17 at 16: 00; Stop 07/21/17 at 16:01; Status DC Oxycodone HCl (Roxicodone) 5 mg PRN Q6HRS PRN PO PAIN Last administered on 08:19; Start 07/21/17 at 17:00 Sodium Chloride 1,000 ml @ 1,000 mls/hr Q1H PRN IV hypotension; Start at 18:58; Stop 07/22/17 at 00:57; Status DC Albumin Human 200 ml @ 200 mls/hr 1X PRN PRN IV Hypotension; Start 07/21/17 at 19:00; Stop 07/22/17 at 00:59; Status DC Info (PHARMACY MONITORING -- do not chart) 1 each PRN DAILY PRN MC SEE COMMENTS ; Start 07/21/17 at 19:00 Insulin Aspart (NovoLOG) 20 units TIDAC SQ ; Start 07/22/17 at 15:00; Stop at 11:56; Status DC Vitamin D (Vitamin D3) 1,000 unit DAILY PO Last administered on 07/23/17 08: 17; Start 07/22/17 at 15:00 Heparin Sodium (Porcine) (Heparin Sq) 5,000 unit Q8HRS SQ Last administered on 07/23/17t 06:07; Start 07/22/17 at 15:00 Cyclobenzaprine HCl (Flexeril) 10 mg BID PO Last administered on 07/23/17t 08: 18; Start 07/22/17 at 21:00 Insulin Aspart (NovoLOG) 10 units TIDAC SQ ; Start 07/23/17 at 16:30 Sodium Chloride 1,000 ml @ 1,000 mls/hr Q1H PRN IV hypotension; Start at 14:33; Stop 07/23/17 at 20:32 Info (PHARMACY MONITORING -- do not chart) 1 each PRN DAILY PRN MC SEE COMMENTS ; Start 07/23/17 at 14:45 Active Scripts Active Miralax (Polyethylene Glycol 3350) 119 Gm Powder 17 Gm PO BID hold for loose BM Levemir Flextouch (Insulin Detemir) 100 Unit/1 Ml Insuln.pen 28 Units SQ QHS Carvedilol 6.25 Mg Tablet 6.25 Mg PO BIDWMEALS Reported Humalog (Insulin Lispro) 100 Unit/1 Ml Cartridge 30 Unit SQ TIDAC Aspirin 81 Mg Tab.chew 1 Tab PO DAILY Glimepiride 4 Mg Tablet 1 Tab PO DAILY Gabapentin 300 Mg Capsule 300 Mg PO PRN TID PRN Omeprazole 20 Mg Capsule.dr 1 Cap PO DAILY Michelle-Edwin Tablet (Folic Acid/Vitamin B Comp W-C) 0.8 Mg Tablet 0.8 Mg PO DAILY Cyclobenzaprine Hcl 10 Mg Tablet 1 Tab PO BID Vitals/I & O Vital Sign - Last 24 Hours 07/22/17 07/22/17 07/22/17 07/22/17 19:00 20:00 20:31 21:31 Temp 97.9 97.9 Pulse 71 Resp 19 20 20 B/P (MAP) 118/65 (82) Pulse Ox 96 96 96 O2 Delivery Room Air Room Air Room Air 07/22/17 07/23/17 07/23/17 07/23/17 22:36 02:44 07:32 07:55 Temp 98.6 97.9 97.9 98.6 97.9 97.9 Pulse 85 81 77 Resp 18 18 17 B/P (MAP) 106/54 (71) 105/56 (72) 119/52 (74) Pulse Ox 96 93 94 O2 Delivery Room Air Room Air Room Air Room Air 07/23/17 07/23/17 07/23/17 08:19 09:29 15:06 Temp 98.5 98.5 Pulse 100 Resp 17 B/P (MAP) 121/71 (88) Pulse Ox 96 O2 Delivery Room Air Room Air Room Air Intake and Output 07/22/17 07/22/17 07/23/17 15:00 23:00 07:00 Intake Total 1200 ml 750 ml Output Total 50 ml Balance 1150 ml 750 ml JEANIE WILLAMS MD Jul 23, 2017 16:46
[2017-07-23] MEDS: CARVEDILOL 6.25 MG TABLET. PO SCH (16:51)
[2017-07-23 19:00] VITALS: BP 95/50
[2017-07-23] MEDS: INSULIN DETEMIR 300 UNITS/3 ML INSULN.PEN. SQ SCH (21:53)
[2017-07-23 22:38] VITALS: BP 100/56
[2017-07-24 03:05] VITALS: BP 101/55
[2017-07-24] MEDS: HEPARIN PF for SUB-Q USE 5,000 UNIT/0.5 ML VIAL. SQ SCH ×3 (04:48→21:07)
[2017-07-24] MEDS: oxyCODONE IR 5 MG TABLET PO PRN (04:48)
[2017-07-24 06:10] LABS: BASO # 0.1 x10^3/uL (0.0-0.2); BASO % 1 % (0-3); EOS % 3 % (0-3); HEMATOCRIT 31.7 % (36.0-47.0); HEMOGLOBIN 10.4 g/dL (12.0-15.5); LYMPH # 2.3 x10^3/uL (1.0-4.8); LYMPH % 27 % (24-48); MEAN CORPUSCULAR HEMOGLOBIN 32 pg (25-35); MEAN CORPUSCULAR HGB CONC 33 g/dL (31-37); MEAN CORPUSCULAR VOLUME 96 fL (79-100); MONO % 9 % (0-9); NEUT % 60 % (31-73); PLATELET COUNT 209 x10^3/uL (140-400); RED BLOOD COUNT 3.29 x10^6/uL (3.50-5.40); RED CELL DISTRIBUTION WIDTH 14.4 % (11.5-14.5); WHITE BLOOD COUNT 8.3 x10^3/uL (4.0-11.0)
[2017-07-24 06:31] LABS: ALBUMIN 2.1 g/dL (3.4-5.0); ALBUMIN/GLOBULIN RATIO 0.6 (1.0-1.7); CALCIUM 8.5 mg/dL (8.5-10.1); CREATININE 3.9 mg/dL (0.6-1.0); GFR 11.5; POTASSIUM 4.1 mmol/L (3.5-5.1); TOTAL BILIRUBIN 0.3 mg/dL (0.2-1.0); TOTAL PROTEIN 5.9 g/dL (6.4-8.2)
[2017-07-24 07:00] VITALS: BP 112/68
[2017-07-24] MEDS: FOLIC/VIT B COMP W-C (RENAL) TABLET. PO SCH (08:52)
[2017-07-24] MEDS: GLIMEPIRIDE 2 MG TABLET. PO SCH (08:53)
[2017-07-24] MEDS: PANTOPRAZOLE 40 MG TABLET.DR. PO SCH (08:53)
[2017-07-24] MEDS: ASPIRIN 325 MG TABLET PO SCH (08:53)
[2017-07-24] MEDS: CHOLECALCIFEROL (VITAMIN D3) 1,000 UNIT TABLET PO SCH (08:53)
[2017-07-24] MEDS: CYCLOBENZAPRINE 10 MG TABLET. PO SCH ×2 (08:54→21:06)
[2017-07-24] MEDS: INSULIN ASPART 300 UNITS/3 ML INSULN.PEN SQ SCH ×6 (08:59→17:00)
--- NOTE | 2017-07-24 08:59 | PDOC ---
PROGRESS NOTES Chief Complaint Chief Complaint Generalized weakness Occluded AV fistula ASSESSMENT AND PLAN: 1. Malaise, cough: CXR clear. suspect viral URI. supportive care 2. ESRD: on HD //, fistula functioning 3. CHF: chronic, mod diastolic, (EF 60-65%) 4. Afib: rate controlled; no AC 5. OAC: recommended, but pt opposed to coumadin, could not afford anti- thrombin inhibitos in past, but now insured. TBD in cardiology clinic 6. HTN: well controlled on BB only, borderline low. decrease coreg 7. DM: borderline control with occas low BG. cont insulin regimen, ISS 8. Chronic lymphedema/venous insufficiency: leg elevation, 9. MATTHEW: 10. Morbid obesity BMI 35 11. VitD deficiency: replete 12. PCM: hypoalbuminemia confounded by ESRD, chronic dz. dietary teaching 13. Chonic pain: leg shoulder. imelda Fernandez PRN 14. Dispo: OT/PT eval 15. h/o right large rotator cuff tear History of Present Illness History of Present Illness c/o R lat thigh pain, chronic with waxing/waning severity. severe this AM, norco not helping. Vitals Vitals Vital Signs Date Time Temp Pulse Resp B/P (MAP) Pulse Ox O2 Delivery O2 Flow Rate FiO2 07/24/17 06:16 19 Room Air 07/24/17 03:05 97.9 76 101/55 (70) 94 97.9 07/23/17 19:00 2.0 Physical Exam General: Alert, Oriented X3, Cooperative, No acute distress Heart: Regular rate Lungs: Clear Abdomen: Normal bowel sounds, Soft, No tenderness Extremities: No clubbing, No edema Skin: No rashes Labs LABS Laboratory Tests Test 07/23/17 13:09 07/23/17 16:29 07/23/17 20:44 07/24/17 05:00 Glucose (Fingerstick) 98 mg/dL (70-99) 145 mg/dL (70-99) 223 mg/dL (70-99) Sodium Level 139 mmol/L (136-145) Potassium Level 4.1 mmol/L (3.5-5.1) Chloride Level 101 mmol/L (98-107) Carbon Dioxide Level 30 mmol/L (21-32) Anion Gap 8 (6-14) Blood Urea Nitrogen 23 mg/dL (7-20) Creatinine 3.9 mg/dL (0.6-1.0) Estimated GFR (Cockcroft-Gault) 11.5 BUN/Creatinine Ratio 6 (6-20) Glucose Level 225 mg/dL (70-99) Calcium Level 8.5 mg/dL (8.5-10.1) Total Bilirubin 0.3 mg/dL (0.2-1.0) Aspartate Amino Transf (AST/SGOT) 14 U/L (15-37) Alanine Aminotransferase (ALT/SGPT) 14 U/L (14-59) Alkaline Phosphatase 334 U/L (46-116) Total Protein 5.9 g/dL (6.4-8.2) Albumin 2.1 g/dL (3.4-5.0) Albumin/Globulin Ratio 0.6 (1.0-1.7) Test 07/24/17 05:06 07/24/17 07:32 White Blood Count 8.3 x10^3/uL (4.0-11.0) Red Blood Count 3.29 x10^6/uL (3.50-5.40) Hemoglobin 10.4 g/dL (12.0-15.5) Hematocrit 31.7 % (36.0-47.0) Mean Corpuscular Volume 96 fL (79-100) Mean Corpuscular Hemoglobin 32 pg (25-35) Mean Corpuscular Hemoglobin Concent 33 g/dL (31-37) Red Cell Distribution Width 14.4 % (11.5-14.5) Platelet Count 209 x10^3/uL (140-400) Neutrophils (%) (Auto) 60 % (31-73) Lymphocytes (%) (Auto) 27 % (24-48) Monocytes (%) (Auto) 9 % (0-9) Eosinophils (%) (Auto) 3 % (0-3) Basophils (%) (Auto) 1 % (0-3) Neutrophils # (Auto) 5.0 x10^3uL (1.8-7.7) Lymphocytes # (Auto) 2.3 x10^3/uL (1.0-4.8) Monocytes # (Auto) 0.7 x10^3/uL (0.0-1.1) Eosinophils # (Auto) 0.3 x10^3/uL (0.0-0.7) Basophils # (Auto) 0.1 x10^3/uL (0.0-0.2) Glucose (Fingerstick) 209 mg/dL (70-99) EDMAR BOLAÑOS MD Jul 24, 2017 08:59
[2017-07-24] MEDS: POLYETHYLENE GLYCOL 3350 17 GM PACKET. PO SCH ×2 (09:00→21:00)
[2017-07-24 11:00] VITALS: BP 108/50
--- NOTE | 2017-07-24 11:53 | PDOC ---
Renal-Progress Notes Subjective Notes Notes NONE History of Present Illness Hx of present illness NO CHANGE Vitals Vitals Vital Signs Date Time Temp Pulse Resp B/P (MAP) Pulse Ox O2 Delivery O2 Flow Rate FiO2 07/24/17 11:00 97.8 79 18 108/50 (69) 96 Room Air 97.8 07/23/17 19:00 2.0 Weight Weight [ ] I.O. Intake and Output Intake and Output 07/24/17 07:00 Intake Total 1080 ml Balance 1080 ml Intake Oral 1080 ml # Voids 1 Labs Labs Laboratory Tests Test 07/23/17 13:09 07/23/17 16:29 07/23/17 20:44 07/24/17 05:00 Glucose (Fingerstick) 98 mg/dL (70-99) 145 mg/dL (70-99) 223 mg/dL (70-99) Sodium Level 139 mmol/L (136-145) Potassium Level 4.1 mmol/L (3.5-5.1) Chloride Level 101 mmol/L (98-107) Carbon Dioxide Level 30 mmol/L (21-32) Anion Gap 8 (6-14) Blood Urea Nitrogen 23 mg/dL (7-20) Creatinine 3.9 mg/dL (0.6-1.0) Estimated GFR (Cockcroft-Gault) 11.5 BUN/Creatinine Ratio 6 (6-20) Glucose Level 225 mg/dL (70-99) Calcium Level 8.5 mg/dL (8.5-10.1) Total Bilirubin 0.3 mg/dL (0.2-1.0) Aspartate Amino Transf (AST/SGOT) 14 U/L (15-37) Alanine Aminotransferase (ALT/SGPT) 14 U/L (14-59) Alkaline Phosphatase 334 U/L (46-116) Total Protein 5.9 g/dL (6.4-8.2) Albumin 2.1 g/dL (3.4-5.0) Albumin/Globulin Ratio 0.6 (1.0-1.7) Test 07/24/17 05:06 07/24/17 07:32 07/24/17 11:09 White Blood Count 8.3 x10^3/uL (4.0-11.0) Red Blood Count 3.29 x10^6/uL (3.50-5.40) Hemoglobin 10.4 g/dL (12.0-15.5) Hematocrit 31.7 % (36.0-47.0) Mean Corpuscular Volume 96 fL (79-100) Mean Corpuscular Hemoglobin 32 pg (25-35) Mean Corpuscular Hemoglobin Concent 33 g/dL (31-37) Red Cell Distribution Width 14.4 % (11.5-14.5) Platelet Count 209 x10^3/uL (140-400) Neutrophils (%) (Auto) 60 % (31-73) Lymphocytes (%) (Auto) 27 % (24-48) Monocytes (%) (Auto) 9 % (0-9) Eosinophils (%) (Auto) 3 % (0-3) Basophils (%) (Auto) 1 % (0-3) Neutrophils # (Auto) 5.0 x10^3uL (1.8-7.7) Lymphocytes # (Auto) 2.3 x10^3/uL (1.0-4.8) Monocytes # (Auto) 0.7 x10^3/uL (0.0-1.1) Eosinophils # (Auto) 0.3 x10^3/uL (0.0-0.7) Basophils # (Auto) 0.1 x10^3/uL (0.0-0.2) Glucose (Fingerstick) 209 mg/dL (70-99) 211 mg/dL (70-99) Review of Systems Constitutional: yes: alert, oriented Ears/Nose/Throat: Yes: no symptom reported Eyes: Yes: no symptom reported Pulmonary: Yes dyspnea Cardiovascular: Yes no symptom reported Genitourinary: Yes: no symptom reported Psychiatric/Neurological: Yes: no symptom reported Endocrine: Yes: no symptom reported Physical Exam General Appearance: no apparent distress Skin: warm Respiratory: decreased breath sounds Heart: S1S2 Abdomen: soft, bowel sounds present Extremities: pulses present Neurology: oriented Musculoskeletal: Osteoarthritis Assessment Assessment IMP ESRD ANEMIA ACUTE DIASTOLIC CHF-COMPENSATED DECONDITIONING PLAN HD TOMORROW WOULD BENEFIT FROM THERAPY DIANA LUDWIG MD Jul 24, 2017 11:53
[2017-07-24] MEDS: METHYL SALICYLATE/MENTHOL TOPICAL OINTMENT 29GM TUBE. TP SCH ×3 (12:31→21:00)
[2017-07-24 14:59] VITALS: BP 111/61
[2017-07-24] MEDS: CARVEDILOL 3.125 MG TABLET. PO SCH (17:30)
[2017-07-24 19:54] VITALS: BP 128/66
[2017-07-24] MEDS: INSULIN DETEMIR 300 UNITS/3 ML INSULN.PEN. SQ SCH (21:10)
[2017-07-24 23:20] VITALS: BP 113/62
[2017-07-25 03:00] VITALS: BP 86/48
[2017-07-25 04:50] LABS: BASO # 0.1 x10^3/uL (0.0-0.2); BASO % 1 % (0-3); EOS % 3 % (0-3); HEMATOCRIT 29.2 % (36.0-47.0); HEMOGLOBIN 9.8 g/dL (12.0-15.5); LYMPH # 2.5 x10^3/uL (1.0-4.8); LYMPH % 33 % (24-48); MEAN CORPUSCULAR HEMOGLOBIN 32 pg (25-35); MEAN CORPUSCULAR HGB CONC 34 g/dL (31-37); MEAN CORPUSCULAR VOLUME 95 fL (79-100); MONO % 8 % (0-9); NEUT % 55 % (31-73); PLATELET COUNT 202 x10^3/uL (140-400); RED BLOOD COUNT 3.07 x10^6/uL (3.50-5.40); RED CELL DISTRIBUTION WIDTH 13.8 % (11.5-14.5); WHITE BLOOD COUNT 7.6 x10^3/uL (4.0-11.0)
[2017-07-25 05:12] LABS: ALBUMIN/GLOBULIN RATIO 0.6 (1.0-1.7); CALCIUM 8.5 mg/dL (8.5-10.1); CREATININE 4.5 mg/dL (0.6-1.0); GFR 9.7; TOTAL BILIRUBIN 0.3 mg/dL (0.2-1.0); TOTAL PROTEIN 5.5 g/dL (6.4-8.2)
[2017-07-25] MEDS: HEPARIN PF for SUB-Q USE 5,000 UNIT/0.5 ML VIAL. SQ SCH ×3 (05:29→22:00)
[2017-07-25 07:00] VITALS: BP 122/67
[2017-07-25] MEDS: POLYETHYLENE GLYCOL 3350 17 GM PACKET. PO SCH ×2 (07:59→21:00)
[2017-07-25] MEDS: CARVEDILOL 3.125 MG TABLET. PO SCH ×2 (08:00→17:03)
[2017-07-25] MEDS ORDERED: IV NORMAL SALINE 1000ML BAG 1,000 ML IV PRN (08:05)
[2017-07-25] MEDS: FOLIC/VIT B COMP W-C (RENAL) TABLET. PO SCH (08:10)
[2017-07-25] MEDS: CYCLOBENZAPRINE 10 MG TABLET. PO SCH ×2 (08:11→21:00)
[2017-07-25] MEDS: PANTOPRAZOLE 40 MG TABLET.DR. PO SCH (08:11)
[2017-07-25] MEDS: ASPIRIN 325 MG TABLET PO SCH (08:11)
[2017-07-25] MEDS: GLIMEPIRIDE 2 MG TABLET. PO SCH (08:11)
[2017-07-25] MEDS: CHOLECALCIFEROL (VITAMIN D3) 1,000 UNIT TABLET PO SCH (08:11)
[2017-07-25] MEDS: METHYL SALICYLATE/MENTHOL TOPICAL OINTMENT 29GM TUBE. TP SCH ×4 (08:12→21:00)
[2017-07-25] MEDS ORDERED: DIALYSIS PATIENT. MC PRN ×2 (08:15)
[2017-07-25] MEDS ORDERED: LIDOCAINE 1% PF 2 ML VIAL. INJ ONE (08:15)
[2017-07-25] MEDS ORDERED: ALBUMIN HUMAN 25% 200 ML IV PRN (08:15)
[2017-07-25] MEDS ORDERED: diphenhydrAMINE 50 MG/ML VIAL IV PRN ×2 (08:15)
[2017-07-25] MEDS: INSULIN ASPART 300 UNITS/3 ML INSULN.PEN SQ SCH ×6 (08:15→18:07)
[2017-07-25] MEDS ORDERED: ACETAMINOPHEN 500 MG TABLET PO PRN (08:15)
--- NOTE | 2017-07-25 10:05 | PDOC ---
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0) Estimated GFR (Cockcroft-Gault) 11.5 BUN/Creatinine Ratio 6 (6-20) Glucose Level 225 mg/dL (70-99) Calcium Level 8.5 mg/dL (8.5-10.1) Total Bilirubin 0.3 mg/dL (0.2-1.0) Aspartate Amino Transf (AST/SGOT) 14 U/L (15-37) Alanine Aminotransferase (ALT/SGPT) 14 U/L (14-59) Alkaline Phosphatase 334 U/L (46-116) Total Protein 5.9 g/dL (6.4-8.2) Albumin 2.1 g/dL (3.4-5.0) Albumin/Globulin Ratio 0.6 (1.0-1.7) Test 07/24/17 05:06 07/24/17 07:32 07/24/17 11:09 07/24/17 16:49 White Blood Count 8.3 x10^3/uL (4.0-11.0) Red Blood Count 3.29 x10^6/uL (3.50-5.40) Hemoglobin 10.4 g/dL (12.0-15.5) Hematocrit 31.7 % (36.0-47.0) Mean Corpuscular Volume 96 fL (79-100) Mean Corpuscular Hemoglobin 32 pg (25-35) Mean Corpuscular Hemoglobin Concent 33 g/dL (31-37) Red Cell Distribution Width 14.4 % (11.5-14.5) Platelet Count 209 x10^3/uL (140-400) Neutrophils (%) (Auto) 60 % (31-73) Lymphocytes (%) (Auto) 27 % (24-48) Monocytes (%) (Auto) 9 % (0-9) Eosinophils (%) (Auto) 3 % (0-3) Basophils (%) (Auto) 1 % (0-3) Neutrophils # (Auto) 5.0 x10^3uL (1.8-7.7) Lymphocytes # (Auto) 2.3 x10^3/uL (1.0-4.8) Monocytes # (Auto) 0.7 x10^3/uL (0.0-1.1) Eosinophils # (Auto) 0.3 x10^3/uL (0.0-0.7) Basophils # (Auto) 0.1 x10^3/uL (0.0-0.2) Glucose (Fingerstick) 209 mg/dL (70-99) 211 mg/dL (70-99) 87 mg/dL (70-99) Test 07/24/17 20:55 07/25/17 04:10 07/25/17 07:08 Glucose (Fingerstick) 200 mg/dL (70-99) 181 mg/dL (70-99) White Blood Count 7.6 x10^3/uL (4.0-11.0) Red Blood Count 3.07 x10^6/uL (3.50-5.40) Hemoglobin 9.8 g/dL (12.0-15.5) Hematocrit 29.2 % (36.0-47.0) Mean Corpuscular Volume 95 fL (79-100) Mean Corpuscular Hemoglobin 32 pg (25-35) Mean Corpuscular Hemoglobin Concent 34 g/dL (31-37) Red Cell Distribution Width 13.8 % (11.5-14.5) Platelet Count 202 x10^3/uL (140-400) Neutrophils (%) (Auto) 55 % (31-73) Lymphocytes (%) (Auto) 33 % (24-48) Monocytes (%) (Auto) 8 % (0-9) Eosinophils (%) (Auto) 3 % (0-3) Basophils (%) (Auto) 1 % (0-3) Neutrophils # (Auto) 4.2 x10^3uL (1.8-7.7) Lymphocytes # (Auto) 2.5 x10^3/uL (1.0-4.8) Monocytes # (Auto) 0.6 x10^3/uL (0.0-1.1) Eosinophils # (Auto) 0.3 x10^3/uL (0.0-0.7) Basophils # (Auto) 0.1 x10^3/uL (0.0-0.2) Sodium Level 136 mmol/L (136-145) Potassium Level 4.0 mmol/L (3.5-5.1) Chloride Level 100 mmol/L (98-107) Carbon Dioxide Level 29 mmol/L (21-32) Anion Gap 7 (6-14) Blood Urea Nitrogen 35 mg/dL (7-20) Creatinine 4.5 mg/dL (0.6-1.0) Estimated GFR (Cockcroft-Gault) 9.7 BUN/Creatinine Ratio 8 (6-20) Glucose Level 217 mg/dL (70-99) Calcium Level 8.5 mg/dL (8.5-10.1) Total Bilirubin 0.3 mg/dL (0.2-1.0) Aspartate Amino Transf (AST/SGOT) 13 U/L (15-37) Alanine Aminotransferase (ALT/SGPT) 13 U/L (14-59) Alkaline Phosphatase 281 U/L (46-116) Total Protein 5.5 g/dL (6.4-8.2) Albumin 2.0 g/dL (3.4-5.0) Albumin/Globulin Ratio 0.6 (1.0-1.7) Laboratory Tests Test 07/24/17 11:09 07/24/17 16:49 07/24/17 20:55 07/25/17 04:10 Glucose (Fingerstick) 211 mg/dL (70-99) 87 mg/dL (70-99) 200 mg/dL (70-99) White Blood Count 7.6 x10^3/uL (4.0-11.0) Red Blood Count 3.07 x10^6/uL (3.50-5.40) Hemoglobin 9.8 g/dL (12.0-15.5) Hematocrit 29.2 % (36.0-47.0) Mean Corpuscular Volume 95 fL (79-100) Mean Corpuscular Hemoglobin 32 pg (25-35) Mean Corpuscular Hemoglobin Concent 34 g/dL (31-37) Red Cell Distribution Width 13.8 % (11.5-14.5) Platelet Count 202 x10^3/uL (140-400) Neutrophils (%) (Auto) 55 % (31-73) Lymphocytes (%) (Auto) 33 % (24-48) Monocytes (%) (Auto) 8 % (0-9) Eosinophils (%) (Auto) 3 % (0-3) Basophils (%) (Auto) 1 % (0-3) Neutrophils # (Auto) 4.2 x10^3uL (1.8-7.7) Lymphocytes # (Auto) 2.5 x10^3/uL (1.0-4.8) Monocytes # (Auto) 0.6 x10^3/uL (0.0-1.1) Eosinophils # (Auto) 0.3 x10^3/uL (0.0-0.7) Basophils # (Auto) 0.1 x10^3/uL (0.0-0.2) Sodium Level 136 mmol/L (136-145) Potassium Level 4.0 mmol/L (3.5-5.1) Chloride Level 100 mmol/L (98-107) Carbon Dioxide Level 29 mmol/L (21-32) Anion Gap 7 (6-14) Blood Urea Nitrogen 35 mg/dL (7-20) Creatinine 4.5 mg/dL (0.6-1.0) Estimated GFR (Cockcroft-Gault) 9.7 BUN/Creatinine Ratio 8 (6-20) Glucose Level 217 mg/dL (70-99) Calcium Level 8.5 mg/dL (8.5-10.1) Total Bilirubin 0.3 mg/dL (0.2-1.0) Aspartate Amino Transf (AST/SGOT) 13 U/L (15-37) Alanine Aminotransferase (ALT/SGPT) 13 U/L (14-59) Alkaline Phosphatase 281 U/L (46-116) Total Protein 5.5 g/dL (6.4-8.2) Albumin 2.0 g/dL (3.4-5.0) Albumin/Globulin Ratio 0.6 (1.0-1.7) Test 07/25/17 07:08 Glucose (Fingerstick) 181 mg/dL (70-99) MAJO DRAKE MD Jul 25, 2017 10:05
[2017-07-25] MEDS: oxyCODONE IR 5 MG TABLET PO PRN ×2 (13:06→19:40)
[2017-07-25 14:39] VITALS: BP 132/73
--- NOTE | 2017-07-25 14:50 | PDOC ---
PROGRESS NOTES Chief Complaint Chief Complaint Generalized weakness Occluded AV fistula ASSESSMENT AND PLAN: 1. Malaise, cough: CXR clear. suspect viral URI. supportive care 2. ESRD: on HD //, fistula now functioning 3. CHF: chronic, mod diastolic, (EF 60-65%) 4. Afib: rate controlled; 5. OAC: recommended, but pt opposed to coumadin, could not afford anti- thrombin inhibitos in past, but now insured. TBD in cardiology clinic 6. HTN: well controlled on BB only, borderline low. decrease coreg 7. DM: borderline control with occas low BG. cont insulin regimen, ISS 8. Chronic lymphedema/venous insufficiency: leg elevation, 9. MATTHEW: 10. Morbid obesity BMI 35 11. VitD deficiency: replete 12. PCM: hypoalbuminemia confounded by ESRD, chronic dz. dietary teaching 13. Chronic pain: leg, shoulder (hx R large rotator cuff tear). Jessy no working. trila lidocaine patch, norco PRN 14. Dispo: OT/PT eval History of Present Illness History of Present Illness seen in HD. c/o R lat thigh pain, not helped by bengay or norco. Vitals Vitals Vital Signs Date Time Temp Pulse Resp B/P (MAP) Pulse Ox O2 Delivery O2 Flow Rate FiO2 07/25/17 14:39 97.6 95 22 132/73 (92) 90 Room Air 97.6 Physical Exam General: Alert, Oriented X3, Cooperative, No acute distress Heart: Regular rate Lungs: Clear Abdomen: Normal bowel sounds, Soft, No tenderness Extremities: No clubbing, No edema Skin: No rashes Labs LABS Laboratory Tests Test 07/24/17 16:49 07/24/17 20:55 07/25/17 04:10 07/25/17 07:08 Glucose (Fingerstick) 87 mg/dL (70-99) 200 mg/dL (70-99) 181 mg/dL (70-99) White Blood Count 7.6 x10^3/uL (4.0-11.0) Red Blood Count 3.07 x10^6/uL (3.50-5.40) Hemoglobin 9.8 g/dL (12.0-15.5) Hematocrit 29.2 % (36.0-47.0) Mean Corpuscular Volume 95 fL (79-100) Mean Corpuscular Hemoglobin 32 pg (25-35) Mean Corpuscular Hemoglobin Concent 34 g/dL (31-37) Red Cell Distribution Width 13.8 % (11.5-14.5) Platelet Count 202 x10^3/uL (140-400) Neutrophils (%) (Auto) 55 % (31-73) Lymphocytes (%) (Auto) 33 % (24-48) Monocytes (%) (Auto) 8 % (0-9) Eosinophils (%) (Auto) 3 % (0-3) Basophils (%) (Auto) 1 % (0-3) Neutrophils # (Auto) 4.2 x10^3uL (1.8-7.7) Lymphocytes # (Auto) 2.5 x10^3/uL (1.0-4.8) Monocytes # (Auto) 0.6 x10^3/uL (0.0-1.1) Eosinophils # (Auto) 0.3 x10^3/uL (0.0-0.7) Basophils # (Auto) 0.1 x10^3/uL (0.0-0.2) Sodium Level 136 mmol/L (136-145) Potassium Level 4.0 mmol/L (3.5-5.1) Chloride Level 100 mmol/L (98-107) Carbon Dioxide Level 29 mmol/L (21-32) Anion Gap 7 (6-14) Blood Urea Nitrogen 35 mg/dL (7-20) Creatinine 4.5 mg/dL (0.6-1.0) Estimated GFR (Cockcroft-Gault) 9.7 BUN/Creatinine Ratio 8 (6-20) Glucose Level 217 mg/dL (70-99) Calcium Level 8.5 mg/dL (8.5-10.1) Total Bilirubin 0.3 mg/dL (0.2-1.0) Aspartate Amino Transf (AST/SGOT) 13 U/L (15-37) Alanine Aminotransferase (ALT/SGPT) 13 U/L (14-59) Alkaline Phosphatase 281 U/L (46-116) Total Protein 5.5 g/dL (6.4-8.2) Albumin 2.0 g/dL (3.4-5.0) Albumin/Globulin Ratio 0.6 (1.0-1.7) Test 07/25/17 14:30 Glucose (Fingerstick) 67 mg/dL (70-99) EDMAR BOLAÑOS MD Jul 25, 2017 14:50
[2017-07-25] MEDS: LIDOCAINE (700MG/PATCH) PATCH. TD SCH (17:01)
[2017-07-25] MEDS: INSULIN DETEMIR 300 UNITS/3 ML INSULN.PEN. SQ SCH (21:00)
[2017-07-25 22:40] VITALS: BP 115/66
[2017-07-26 03:55] VITALS: BP 119/54
[2017-07-26] MEDS: oxyCODONE IR 5 MG TABLET PO PRN (05:34)
[2017-07-26] MEDS: HEPARIN PF for SUB-Q USE 5,000 UNIT/0.5 ML VIAL. SQ SCH ×4 (05:35→21:22)
[2017-07-26 07:37] VITALS: BP 134/71
[2017-07-26] MEDS: PANTOPRAZOLE 40 MG TABLET.DR. PO SCH (07:40)
[2017-07-26] MEDS: INSULIN ASPART 300 UNITS/3 ML INSULN.PEN SQ SCH ×6 (07:40→17:00)
[2017-07-26] MEDS: FOLIC/VIT B COMP W-C (RENAL) TABLET. PO SCH (08:49)
[2017-07-26] MEDS: ASPIRIN 325 MG TABLET PO SCH (08:49)
[2017-07-26] MEDS: CYCLOBENZAPRINE 10 MG TABLET. PO SCH ×2 (08:50→20:03)
[2017-07-26] MEDS: CARVEDILOL 3.125 MG TABLET. PO SCH ×2 (08:50→17:30)
[2017-07-26] MEDS: GLIMEPIRIDE 2 MG TABLET. PO SCH (08:50)
[2017-07-26] MEDS: POLYETHYLENE GLYCOL 3350 17 GM PACKET. PO SCH ×2 (08:50→20:03)
[2017-07-26] MEDS: CHOLECALCIFEROL (VITAMIN D3) 1,000 UNIT TABLET PO SCH (08:50)
[2017-07-26] MEDS: METHYL SALICYLATE/MENTHOL TOPICAL OINTMENT 29GM TUBE. TP SCH ×4 (08:51→20:04)
[2017-07-26] MEDS: LIDOCAINE (700MG/PATCH) PATCH. TD SCH ×2 (09:00→14:47)
[2017-07-26 10:35] VITALS: BP 119/70
[2017-07-26] MEDS: GABAPENTIN 300 MG CAPSULE. PO PRN ×2 (11:09→20:03)
--- NOTE | 2017-07-26 11:59 | PDOC ---
PROGRESS NOTES Chief Complaint Chief Complaint Generalized weakness Occluded AV fistula ASSESSMENT AND PLAN: 1. Malaise, cough: CXR clear. suspect viral URI. supportive care 2. ESRD: on HD //, fistula now functioning 3. CHF: chronic, mod diastolic, (EF 60-65%) 4. Afib: rate controlled; 5. OAC: recommended, but pt opposed to coumadin, could not afford anti- thrombin inhibitos in past, but now insured. TBD in cardiology clinic 6. HTN: well controlled on BB only, borderline low. decrease coreg 7. DM: borderline control with occas low BG. cont insulin regimen, ISS 8. Chronic lymphedema/venous insufficiency: leg elevation, 9. MATTHEW: 10. Morbid obesity BMI 35 11. VitD deficiency: replete 12. PCM: hypoalbuminemia confounded by ESRD, chronic dz. dietary teaching 13. Chronic pain: leg, shoulder (hx R large rotator cuff tear). Jessy no working. trial lidocaine patch, norco PRN. obtain flat films to r/o fx 14. Dispo: OT/PT rec for SNF, but pt declines History of Present Illness History of Present Illness fevy sleepy all the time, wakes w/o difficulties. pain persisting, lidocaine helping some, but currently off Vitals Vitals Vital Signs Date Time Temp Pulse Resp B/P (MAP) Pulse Ox O2 Delivery O2 Flow Rate FiO2 07/26/17 10:35 98.8 87 17 119/70 (86) 93 Room Air 98.8 Physical Exam General: Alert, Oriented X3, Cooperative, No acute distress Heart: Regular rate Lungs: Clear Abdomen: Normal bowel sounds, Soft, No tenderness Extremities: No clubbing, No edema, Other (R lat thigh pain , worst at trochanter) Skin: No rashes Labs LABS Laboratory Tests Test 07/25/17 14:30 07/25/17 15:44 07/25/17 17:04 07/25/17 17:58 Glucose (Fingerstick) 67 mg/dL (70-99) 117 mg/dL (70-99) 131 mg/dL (70-99) 255 mg/dL (70-99) Test 07/25/17 22:20 07/26/17 07:09 07/26/17 10:57 Glucose (Fingerstick) 112 mg/dL (70-99) 130 mg/dL (70-99) 121 mg/dL (70-99) Comment Review of Relevant I have reviewed the following items kai (where applicable) has been applied. Labs Laboratory Tests Test 07/24/17 16:49 07/24/17 20:55 07/25/17 04:10 07/25/17 07:08 Glucose (Fingerstick) 87 mg/dL (70-99) 200 mg/dL (70-99) 181 mg/dL (70-99) White Blood Count 7.6 x10^3/uL (4.0-11.0) Red Blood Count 3.07 x10^6/uL (3.50-5.40) Hemoglobin 9.8 g/dL (12.0-15.5) Hematocrit 29.2 % (36.0-47.0) Mean Corpuscular Volume 95 fL (79-100) Mean Corpuscular Hemoglobin 32 pg (25-35) Mean Corpuscular Hemoglobin Concent 34 g/dL (31-37) Red Cell Distribution Width 13.8 % (11.5-14.5) Platelet Count 202 x10^3/uL (140-400) Neutrophils (%) (Auto) 55 % (31-73) Lymphocytes (%) (Auto) 33 % (24-48) Monocytes (%) (Auto) 8 % (0-9) Eosinophils (%) (Auto) 3 % (0-3) Basophils (%) (Auto) 1 % (0-3) Neutrophils # (Auto) 4.2 x10^3uL (1.8-7.7) Lymphocytes # (Auto) 2.5 x10^3/uL (1.0-4.8) Monocytes # (Auto) 0.6 x10^3/uL (0.0-1.1) Eosinophils # (Auto) 0.3 x10^3/uL (0.0-0.7) Basophils # (Auto) 0.1 x10^3/uL (0.0-0.2) Sodium Level 136 mmol/L (136-145) Potassium Level 4.0 mmol/L (3.5-5.1) Chloride Level 100 mmol/L (98-107) Carbon Dioxide Level 29 mmol/L (21-32) Anion Gap 7 (6-14) Blood Urea Nitrogen 35 mg/dL (7-20) Creatinine 4.5 mg/dL (0.6-1.0) Estimated GFR (Cockcroft-Gault) 9.7 BUN/Creatinine Ratio 8 (6-20) Glucose Level 217 mg/dL (70-99) Calcium Level 8.5 mg/dL (8.5-10.1) Total Bilirubin 0.3 mg/dL (0.2-1.0) Aspartate Amino Transf (AST/SGOT) 13 U/L (15-37) Alanine Aminotransferase (ALT/SGPT) 13 U/L (14-59) Alkaline Phosphatase 281 U/L (46-116) Total Protein 5.5 g/dL (6.4-8.2) Albumin 2.0 g/dL (3.4-5.0) Albumin/Globulin Ratio 0.6 (1.0-1.7) Test 07/25/17 14:30 07/25/17 15:44 07/25/17 17:04 07/25/17 17:58 Glucose (Fingerstick) 67 mg/dL (70-99) 117 mg/dL (70-99) 131 mg/dL (70-99) 255 mg/dL (70-99) Test 07/25/17 22:20 07/26/17 07:09 07/26/17 10:57 Glucose (Fingerstick) 112 mg/dL (70-99) 130 mg/dL (70-99) 121 mg/dL (70-99) Laboratory Tests Test 07/25/17 14:30 07/25/17 15:44 07/25/17 17:04 07/25/17 17:58 Glucose (Fingerstick) 67 mg/dL (70-99) 117 mg/dL (70-99) 131 mg/dL (70-99) 255 mg/dL (70-99) Test 07/25/17 22:20 07/26/17 07:09 07/26/17 10:57 Glucose (Fingerstick) 112 mg/dL (70-99) 130 mg/dL (70-99) 121 mg/dL (70-99) Medications Current Medications Fentanyl Citrate (Fentanyl 2ml Vial) 25 mcg 1X ONCE IM ; Start 07/21/17 at 09: 30; Stop 07/21/17 at 09:31; Status DC Fentanyl Citrate (Fentanyl 2ml Vial) 25 mcg 1X ONCE IV Last administered on 10:00; Start 07/21/17 at 10:00; Stop 07/21/17 at 10:02; Status DC Insulin Aspart (NovoLOG) 0-9 UNITS TIDWMEALS SQ Last administered on 12:10; Start 07/21/17 at 12:00; Stop 07/21/17 at 14:40; Status DC Dextrose (Dextrose 50%-Water Syringe) 12.5 gm PRN Q15MIN PRN IV SEE COMMENTS; Start 07/21/17 at 12:00; Status Cancel Aspirin (Children'S Aspirin) 81 mg DAILY PO ; Start 07/21/17 at 14:00; Stop at 14:00; Status DC Carvedilol (Coreg) 6.25 mg BIDWMEALS PO Last administered on 07/23/17 16:51; Start 07/21/17 at 17:00; Stop 07/24/17 at 08:47; Status DC Aspirin (Bethanie Aspirin) 325 mg DAILYWBKFT PO Last administered on 07/26/17 08 :49; Start 07/21/17 at 13:45 Vitamin B Complex/ Vitamin C (Michelle-Edwin) 1 tab DAILY PO Last administered on 08:49; Start 07/22/17 at 09:00 Insulin Detemir (Levemir) 28 units QHS SQ Last administered on 07/25/17 21:00 ; Start 07/21/17 at 21:00 Polyethylene Glycol (miraLAX PACKET) 17 gm BID PO Last administered on 20:31; Start 07/21/17 at 21:00 Gabapentin (Neurontin) 300 mg PRN TID PRN PO NERVE PAIN Last administered on 11:09; Start 07/21/17 at 14:00 Glimepiride (Amaryl) 4 mg DAILYWBKFT PO Last administered on 07/26/17 08:50; Start 07/22/17 at 08:00 Insulin Aspart (NovoLOG) 30 units TIDAC SQ Last administered on 07/22/17 12: 29; Start 07/21/17 at 16:30; Stop 07/22/17 at 14:27; Status DC Pantoprazole Sodium (Protonix) 40 mg DAILYAC PO Last administered on 07:40; Start 07/22/17 at 07:30 Insulin Aspart (NovoLOG) 0-5 UNITS TIDWMEALS SQ Last administered on 08:16; Start 07/21/17 at 17:00 Dextrose (Dextrose 50%-Water Syringe) 12.5 gm PRN Q15MIN PRN IV SEE COMMENTS; Start 07/21/17 at 13:45 Lidocaine HCl (Xylocaine-Mpf 1% Vial) 2 ml 1X ONCE INJ ; Start 07/21/17 at 16: 00; Stop 07/21/17 at 16:01; Status DC Oxycodone HCl (Roxicodone) 5 mg PRN Q6HRS PRN PO PAIN Last administered on 05:34; Start 07/21/17 at 17:00 Sodium Chloride 1,000 ml @ 1,000 mls/hr Q1H PRN IV hypotension; Start at 18:58; Stop 07/22/17 at 00:57; Status DC Albumin Human 200 ml @ 200 mls/hr 1X PRN PRN IV Hypotension; Start 07/21/17 at 19:00; Stop 07/22/17 at 00:59; Status DC Info (PHARMACY MONITORING -- do not chart) 1 each PRN DAILY PRN MC SEE COMMENTS ; Start 07/21/17 at 19:00; Stop 07/24/17 at 08:52; Status DC Insulin Aspart (NovoLOG) 20 units TIDAC SQ ; Start 07/22/17 at 15:00; Stop at 11:56; Status DC Vitamin D (Vitamin D3) 1,000 unit DAILY PO Last administered on 07/26/17 08: 50; Start 07/22/17 at 15:00 Heparin Sodium (Porcine) (Heparin Sq) 5,000 unit Q8HRS SQ Last administered on 07/23/17 06:07; Start 07/22/17 at 15:00 Cyclobenzaprine HCl (Flexeril) 10 mg BID PO Last administered on 07/26/17 08: 50; Start 07/22/17 at 21:00 Insulin Aspart (NovoLOG) 10 units TIDAC SQ Last administered on 11/19/17at 08: 55; Start 07/23/17 at 16:30 Sodium Chloride 1,000 ml @ 1,000 mls/hr Q1H PRN IV hypotension; Start at 14:33; Stop 07/23/17 at 20:32; Status DC Info (PHARMACY MONITORING -- do not chart) 1 each PRN DAILY PRN MC SEE COMMENTS ; Start 07/23/17 at 14:45; Stop 07/25/17 at 12:25; Status DC Carvedilol (Coreg) 3.125 mg BIDWMEALS PO Last administered on 07/26/17t 08:50 ; Start 07/24/17 at 17:00 Multi-Ingredient Ointment (Analgesic [place]) 1 katia QID TP Last administered on t 08:51; Start 07/24/17 at 13:00 Sodium Chloride 1,000 ml @ 1,000 mls/hr Q1H PRN IV hypotension; Start at 08:05; Stop 07/25/17 at 14:04; Status DC Albumin Human 200 ml @ 200 mls/hr 1X PRN PRN IV Hypotension; Start 07/25/17 at 08:15; Stop 07/25/17 at 14:14; Status DC Acetaminophen (Tylenol) 500 mg 1X PRN PRN PO MILD PAIN / TEMP; Start 07/25/17 at 08:15; Stop 07/26/17 at 08:14; Status DC Diphenhydramine HCl (Benadryl) 25 mg 1X PRN PRN IV ITCHING; Start 07/25/17 at 08:15; Stop 07/26/17 at 08:14; Status DC Diphenhydramine HCl (Benadryl) 25 mg 1X PRN PRN IV ITCHING; Start 07/25/17 at 08:15; Stop 07/26/17 at 08:14; Status DC Info (PHARMACY MONITORING -- do not chart) 1 each PRN DAILY PRN MC SEE COMMENTS ; Start 07/25/17 at 08:15 Info (PHARMACY MONITORING -- do not chart) 1 each PRN DAILY PRN MC SEE COMMENTS ; Start 07/25/17 at 08:15; Stop 07/25/17 at 08:15; Status DC Lidocaine HCl (Xylocaine-Mpf 1% Vial) 2 ml 1X ONCE INJ ; Start 07/25/17 at 08: 15; Stop 07/25/17 at 08:19; Status DC Lidocaine (Lidoderm) 1 patch DAILY TD Last administered on 07/25/17t 17:01; Start 07/25/17 at 17:30 Active Scripts Active Miralax (Polyethylene Glycol 3350) 119 Gm Powder 17 Gm PO BID hold for loose BM Levemir Flextouch (Insulin Detemir) 100 Unit/1 Ml Insuln.pen 28 Units SQ QHS Carvedilol 6.25 Mg Tablet 6.25 Mg PO BIDWMEALS Reported Humalog (Insulin Lispro) 100 Unit/1 Ml Cartridge 30 Unit SQ TIDAC Aspirin 81 Mg Tab.chew 1 Tab PO DAILY Glimepiride 4 Mg Tablet 1 Tab PO DAILY Gabapentin 300 Mg Capsule 300 Mg PO PRN TID PRN Omeprazole 20 Mg Capsule.dr 1 Cap PO DAILY Michelle-Edwin Tablet (Folic Acid/Vitamin B Comp W-C) 0.8 Mg Tablet 0.8 Mg PO DAILY Cyclobenzaprine Hcl 10 Mg Tablet 1 Tab PO BID Vitals/I & O Vital Sign - Last 24 Hours 07/25/17 07/25/17 07/25/17 07/25/17 14:39 17:03 19:26 20:00 Temp 97.6 97.6 Pulse 95 95 Resp B/P (MAP) 132/73 (92) 132/73 Pulse Ox 90 O2 Delivery Room Air Room Air Room Air 07/25/17 07/26/17 07/26/17 07/26/17 22:40 03:55 05:34 06:35 Temp 97.5 97.7 97.5 97.7 Pulse 97 81 Resp B/P (MAP) 115/66 (82) 119/54 (75) Pulse Ox 97 99 99 99 O2 Delivery Room Air Room Air Room Air Room Air 07/26/17 07/26/17 07/26/17 07/26/17 07:37 08:06 08:50 10:35 Temp 98.7 98.8 98.7 98.8 Pulse 80 80 87 Resp B/P (MAP) 134/71 (92) 134/71 119/70 (86) Pulse Ox 95 93 O2 Delivery Room Air Room Air Room Air Intake and Output 07/25/17 07/25/17 07/26/17 15:00 23:00 07:00 Intake Total 240 ml 120 ml Output Total 1 ml 0 ml Balance -1 ml 240 ml 120 ml EDMAR BOLAÑOS MD Jul 26, 2017 11:59
[2017-07-26 12:55] LABS: BASO # 0.1 x10^3/uL (0.0-0.2); BASO % 1 % (0-3); EOS % 3 % (0-3); HEMATOCRIT 33.4 % (36.0-47.0); HEMOGLOBIN 10.8 g/dL (12.0-15.5); LYMPH # 2.4 x10^3/uL (1.0-4.8); LYMPH % 28 % (24-48); MEAN CORPUSCULAR HEMOGLOBIN 31 pg (25-35); MEAN CORPUSCULAR HGB CONC 33 g/dL (31-37); MEAN CORPUSCULAR VOLUME 95 fL (79-100); MONO % 8 % (0-9); NEUT % 60 % (31-73); PLATELET COUNT 260 x10^3/uL (140-400); RED BLOOD COUNT 3.51 x10^6/uL (3.50-5.40); RED CELL DISTRIBUTION WIDTH 13.9 % (11.5-14.5); WHITE BLOOD COUNT 8.6 x10^3/uL (4.0-11.0)
[2017-07-26 13:09] LABS: ALBUMIN 2.3 g/dL (3.4-5.0); ALBUMIN/GLOBULIN RATIO 0.6 (1.0-1.7); CREATININE 3.2 mg/dL (0.6-1.0); GFR 14.4; TOTAL BILIRUBIN 0.4 mg/dL (0.2-1.0); TOTAL PROTEIN 6.2 g/dL (6.4-8.2)
--- NOTE | 2017-07-26 13:44 | PDOC ---
SUBJECTIVE ROS ESRD Pt c/o landy leteral thigh painful nodules ; gen weakness and inability to get up OOB due to pain CVS: no Orthopnea, no CP RESP: no SOB, no RYAN GI: no Nausea, no Vomiting : no Dysuria, no Urgency OBJECTIVE Vital Signs Vital Signs Date Time Temp Pulse Resp B/P (MAP) Pulse Ox O2 Delivery O2 Flow Rate FiO2 07/26/17 10:35 98.8 87 17 119/70 (86) 93 Room Air 98.8 I & 0 Intake and Output 07/26/17 07:00 Intake Total 360 ml Output Total 1 ml Balance 359 ml Intake Oral 360 ml Output Urine Total 0 ml Urine/Stool Mix 1 ml PHYSICAL EXAM Physical Exam GEN: Awake, Oriented x 3, In min distress - obese EYES: Vision Unchanged, Conjunctiva Normal EN: No EN Drainage, Mucous Membranes moist NECK: no JVD, no JVP, Supple, no Thyromegaly CVS: S1S2, soft Murmur, No Gallop, No Rub,ch brawny Edema RESP: no Rales, no Rhonchi,no Acc. Muscle Use GI: BS + ve, NO Bruit, Non Tender, Non Distended - obese : no CVA tenderness, no Suprapubic Tenderness DIAGNOSIS/ASSESSMENT Assessment & Plan ESRD: Current fluid and E-lyte status does not necessitate emergent need for dialysis. Will re-evaluate for dialysis in the am and continue on M, and Sat schedule. ANEMIA; Aranap as ordered, Transfuse with next HD as needed HTN: Current BP meds as reviewed. See orders for changes. BONE & MINERAL: check phos Thigh Nodules - painful - subcut - cannot r/o calciphylaxis - GS consult for Bx Discussed Plan of Care with pt at bedside Problems: COMMENT/RELEVANT DATA Meds Current Medications Medications (Trade) Dose Ordered Sig/Aileen Start Time Stop Time Status Last Admin Dose Admin Acetaminophen (Tylenol) 500 mg 1X PRN PRN 07/25/17 08:15 07/26/17 08:14 DC Albumin Human 200 ml @ 200 mls/hr 1X PRN PRN 07/25/17 08:15 07/25/17 14:14 DC Aspirin (Bethanie Aspirin) 325 mg DAILYWBKFT 07/21/17 13:45 07/26/17 08:49 325 MG Aspirin (Children'S Aspirin) 81 mg DAILY 07/21/17 14:00 07/21/17 14:00 DC Carvedilol (Coreg) 3.125 mg BIDWMEALS 07/24/17 17:00 07/26/17 08:50 3.125 MG Cyclobenzaprine HCl (Flexeril) 10 mg BID 07/22/17 21:00 07/26/17 08:50 10 MG Dextrose (Dextrose 50%-Water Syringe) 12.5 gm PRN Q15MIN PRN 07/21/17 13:45 Diphenhydramine HCl (Benadryl) 25 mg 1X PRN PRN 07/25/17 08:15 07/26/17 08:14 DC Fentanyl Citrate (Fentanyl 2ml Vial) 25 mcg 1X ONCE 07/21/17 10:00 07/21/17 10:02 DC 07/21/17 10:00 25 MCG Gabapentin (Neurontin) 300 mg PRN TID PRN 07/21/17 14:00 07/26/17 11:09 300 MG Glimepiride (Amaryl) 4 mg DAILYWBKFT 07/22/17 08:00 07/26/17 08:50 4 MG Heparin Sodium (Porcine) (Heparin Sq) 5,000 unit Q8HRS 07/22/17 15:00 07/23/17 06:07 5,000 UNIT Info (PHARMACY MONITORING -- do not chart) 1 each PRN DAILY PRN 07/25/17 08:15 07/25/17 08:15 DC Insulin Aspart (NovoLOG) 10 units TIDAC 07/23/17 16:30 07/26/17 12:27 10 UNITS Insulin Detemir (Levemir) 28 units QHS 07/21/17 21:00 07/25/17 21:00 28 UNITS Lidocaine (Lidoderm) 1 patch DAILY 07/25/17 17:30 07/25/17 17:01 1 PATCH Lidocaine HCl (Xylocaine-Mpf 1% Vial) 2 ml 1X ONCE 07/25/17 08:15 07/25/17 08:19 DC Multi-Ingredient Ointment (Analgesic [place]) 1 katia QID 07/24/17 13:00 07/26/17 12:26 1 KATIA Oxycodone HCl (Roxicodone) 5 mg PRN Q6HRS PRN 07/21/17 17:00 07/26/17 05:34 5 MG Pantoprazole Sodium (Protonix) 40 mg DAILYAC 07/22/17 07:30 07/26/17 07:40 40 MG Polyethylene Glycol (miraLAX PACKET) 17 gm BID 07/21/17 21:00 07/22/17 20:31 17 GM Sodium Chloride 1,000 ml @ 1,000 mls/hr Q1H PRN 07/25/17 08:05 07/25/17 14:04 DC Vitamin B Complex/ Vitamin C (Michelle-Edwin) 1 tab DAILY 07/22/17 09:00 07/26/17 08:49 1 TAB Vitamin D (Vitamin D3) 1,000 unit DAILY 07/22/17 15:00 07/26/17 08:50 1,000 UNIT Lab Laboratory Tests Test 07/25/17 14:30 07/25/17 15:44 07/25/17 17:04 07/25/17 17:58 Glucose (Fingerstick) 67 mg/dL (70-99) 117 mg/dL (70-99) 131 mg/dL (70-99) 255 mg/dL (70-99) Test 07/25/17 22:20 07/26/17 07:09 07/26/17 10:57 07/26/17 12:15 Glucose (Fingerstick) 112 mg/dL (70-99) 130 mg/dL (70-99) 121 mg/dL (70-99) White Blood Count 8.6 x10^3/uL (4.0-11.0) Red Blood Count 3.51 x10^6/uL (3.50-5.40) Hemoglobin 10.8 g/dL (12.0-15.5) Hematocrit 33.4 % (36.0-47.0) Mean Corpuscular Volume 95 fL (79-100) Mean Corpuscular Hemoglobin 31 pg (25-35) Mean Corpuscular Hemoglobin Concent 33 g/dL (31-37) Red Cell Distribution Width 13.9 % (11.5-14.5) Platelet Count 260 x10^3/uL (140-400) Neutrophils (%) (Auto) 60 % (31-73) Lymphocytes (%) (Auto) 28 % (24-48) Monocytes (%) (Auto) 8 % (0-9) Eosinophils (%) (Auto) 3 % (0-3) Basophils (%) (Auto) 1 % (0-3) Neutrophils # (Auto) 5.2 x10^3uL (1.8-7.7) Lymphocytes # (Auto) 2.4 x10^3/uL (1.0-4.8) Monocytes # (Auto) 0.7 x10^3/uL (0.0-1.1) Eosinophils # (Auto) 0.3 x10^3/uL (0.0-0.7) Basophils # (Auto) 0.1 x10^3/uL (0.0-0.2) Sodium Level 136 mmol/L (136-145) Potassium Level 4.0 mmol/L (3.5-5.1) Chloride Level 99 mmol/L (98-107) Carbon Dioxide Level 31 mmol/L (21-32) Anion Gap 6 (6-14) Blood Urea Nitrogen 18 mg/dL (7-20) Creatinine 3.2 mg/dL (0.6-1.0) Estimated GFR (Cockcroft-Gault) 14.4 BUN/Creatinine Ratio 6 (6-20) Glucose Level 74 mg/dL (70-99) Calcium Level 9.0 mg/dL (8.5-10.1) Total Bilirubin 0.4 mg/dL (0.2-1.0) Aspartate Amino Transf (AST/SGOT) 20 U/L (15-37) Alanine Aminotransferase (ALT/SGPT) 15 U/L (14-59) Alkaline Phosphatase 290 U/L (46-116) Total Protein 6.2 g/dL (6.4-8.2) Albumin 2.3 g/dL (3.4-5.0) Albumin/Globulin Ratio 0.6 (1.0-1.7) MAJO DRAKE MD Jul 26, 2017 13:44
[2017-07-26] MEDS ORDERED: MAGNESIUM SULFATE 2GM 50 ML IV PRN (13:45)
[2017-07-26 14:45] VITALS: BP 170/90
--- NOTE | 2017-07-26 14:57 | RAD ---
Left HIP AP AND LATERAL Clinical Indication: pain x3 months, no known injury. Comparison: CT chest abdomen and pelvis with contrast 06/15/2017. Findings: There is no acute fracture or dislocation. The hip joint articulation is normal. Visualized pelvic bones appear intact. Air-filled small bowel and colon projects over the left hip. There is suture material posterior to the femoral neck. Patient has a known large ventral abdominal wall hernia. IMPRESSION: No acute fracture or dislocation.
--- NOTE | 2017-07-26 15:05 | RAD ---
FEMUR AP AND LATERAL RIGHT Clinical Indication: Pain x3 months. No injury. Comparison: Left hip, 2 views, same day. Findings: There is no acute fracture or dislocation. The hip joint space is maintained. There is no significant soft tissue abnormality. There is advanced degenerative arthropathy of the knee. There is no knee joint effusion. Tricompartmental marginal osteophytes. IMPRESSION: 1. No acute fracture. 2. Advanced degenerative arthropathy of the knee.
[2017-07-26 19:00] VITALS: BP 109/61
[2017-07-26] MEDS: INSULIN DETEMIR 300 UNITS/3 ML INSULN.PEN. SQ SCH (21:22)
[2017-07-26 23:00] VITALS: BP 98/38
[2017-07-27 03:00] VITALS: BP 116/57
[2017-07-27 05:38] LABS: ALBUMIN 2.1 g/dL (3.4-5.0); GFR 11.1; PHOSPHORUS 4.4 mg/dL (2.6-4.7); POTASSIUM 4.1 mmol/L (3.5-5.1)
[2017-07-27 07:00] VITALS: BP 118/62
[2017-07-27] MEDS: INSULIN ASPART 300 UNITS/3 ML INSULN.PEN SQ SCH ×6 (07:30→17:00)
[2017-07-27] MEDS ORDERED: IV RINGERS,LACTATED 1000ML 1,000 ML IV SCH (08:12)
[2017-07-27] MEDS ORDERED: MORPHINE SULFATE 4 MG/ML DISP.SYRIN. IV PRN (08:15)
[2017-07-27] MEDS ORDERED: LIDOCAINE 1% PF 2 ML VIAL. ID PRN (08:15)
[2017-07-27] MEDS ORDERED: ONDANSETRON PF 4 MG/2 ML VIAL. IV PRN (08:15)
[2017-07-27] MEDS ORDERED: PROCHLORPERAZINE 10 MG/2 ML VIAL. IV PRN (08:15)
[2017-07-27] MEDS ORDERED: HYDROmorphone 2 MG/ML VIAL IV PRN (08:15)
[2017-07-27] MEDS ORDERED: fentaNYL PF VIAL 100 MCG/2 ML VIAL IV PRN ×2 (08:15)
--- NOTE | 2017-07-27 08:37 | PDOC2 ---
CONSULT Date of Consult Date of Consult DATE: 07/27/17 TIME: 08:28 Reason for Consult Reason for Consult: skin biopsy Referring Physician Referring Physician: Dr Ac Identification/Chief Complaint Chief Complaint weakness Problems: Source Source: Chart review, Patient History of Present Illness Reason for Visit: Admitted with weakness and findings of sepsis. Surgical consult for skin biopsy, bilateral painful nodules to thigh with increasing lower extremity weakness. Reports that the nodule to left leg has been there for several months, nodule to right leg more recent, less pain in this leg. Pain is making it difficult to ambulate Past Medical History Cardiovascular: AFIB, CHF, HTN, Hyperlipidemia, Other Pulmonary: Other CENTRAL NERVOUS SYSTEM: Periperal neuropathy, Other GI: GERD, Other Heme/Onc: Anemia NOS Hepatobiliary: Other Psych: Anxiety Musculoskeletal: Osteoarthritis Rheumatologic: Gout Renal/: Chronic renal insuff Endocrine: Diabetes Past Surgical History Past Surgical History: Appendectomy, Cholecystectomy, , Hysterectomy, Other Family History Family History: Cancer (colon ), Coronary Artery Disease Social History ALCOHOL: none Drugs: None Lives: with Family Domestic Violence: Neg Current Medications Current Medications Current Medications Fentanyl Citrate (Fentanyl 2ml Vial) 25 mcg 1X ONCE IM ; Start 07/21/17 at 09: 30; Stop 07/21/17 at 09:31; Status DC Fentanyl Citrate (Fentanyl 2ml Vial) 25 mcg 1X ONCE IV Last administered on 10:00; Start 07/21/17 at 10:00; Stop 07/21/17 at 10:02; Status DC Insulin Aspart (NovoLOG) 0-9 UNITS TIDWMEALS SQ Last administered on 12:10; Start 07/21/17 at 12:00; Stop 07/21/17 at 14:40; Status DC Dextrose (Dextrose 50%-Water Syringe) 12.5 gm PRN Q15MIN PRN IV SEE COMMENTS; Start 07/21/17 at 12:00; Status Cancel Aspirin (Children'S Aspirin) 81 mg DAILY PO ; Start 07/21/17 at 14:00; Stop at 14:00; Status DC Carvedilol (Coreg) 6.25 mg BIDWMEALS PO Last administered on 07/23/17 16:51; Start 07/21/17 at 17:00; Stop 07/24/17 at 08:47; Status DC Aspirin (Bethanie Aspirin) 325 mg DAILYWBKFT PO Last administered on 07/26/17 08 :49; Start 07/21/17 at 13:45 Vitamin B Complex/ Vitamin C (Michelle-Edwin) 1 tab DAILY PO Last administered on 08:49; Start 07/22/17 at 09:00 Insulin Detemir (Levemir) 28 units QHS SQ Last administered on 07/26/17 21:22 ; Start 07/21/17 at 21:00 Polyethylene Glycol (miraLAX PACKET) 17 gm BID PO Last administered on 20:31; Start 07/21/17 at 21:00 Gabapentin (Neurontin) 300 mg PRN TID PRN PO NERVE PAIN Last administered on 20:03; Start 07/21/17 at 14:00 Glimepiride (Amaryl) 4 mg DAILYWBKFT PO Last administered on 07/26/17 08:50; Start 07/22/17 at 08:00; Stop 07/26/17 at 17:18; Status DC Insulin Aspart (NovoLOG) 30 units TIDAC SQ Last administered on 07/22/17 12: 29; Start 07/21/17 at 16:30; Stop 07/22/17 at 14:27; Status DC Pantoprazole Sodium (Protonix) 40 mg DAILYAC PO Last administered on 07:40; Start 07/22/17 at 07:30 Insulin Aspart (NovoLOG) 0-5 UNITS TIDWMEALS SQ Last administered on 08:16; Start 07/21/17 at 17:00 Dextrose (Dextrose 50%-Water Syringe) 12.5 gm PRN Q15MIN PRN IV SEE COMMENTS; Start 07/21/17 at 13:45 Lidocaine HCl (Xylocaine-Mpf 1% Vial) 2 ml 1X ONCE INJ ; Start 07/21/17 at 16: 00; Stop 07/21/17 at 16:01; Status DC Oxycodone HCl (Roxicodone) 5 mg PRN Q6HRS PRN PO PAIN Last administered on 05:34; Start 07/21/17 at 17:00 Sodium Chloride 1,000 ml @ 1,000 mls/hr Q1H PRN IV hypotension; Start at 18:58; Stop 07/22/17 at 00:57; Status DC Albumin Human 200 ml @ 200 mls/hr 1X PRN PRN IV Hypotension; Start 07/21/17 at 19:00; Stop 07/22/17 at 00:59; Status DC Info (PHARMACY MONITORING -- do not chart) 1 each PRN DAILY PRN MC SEE COMMENTS ; Start 07/21/17 at 19:00; Stop 07/24/17 at 08:52; Status DC Insulin Aspart (NovoLOG) 20 units TIDAC SQ ; Start 07/22/17 at 15:00; Stop at 11:56; Status DC Vitamin D (Vitamin D3) 1,000 unit DAILY PO Last administered on 07/26/17 08: 50; Start 07/22/17 at 15:00 Heparin Sodium (Porcine) (Heparin Sq) 5,000 unit Q8HRS SQ Last administered on 07/23/17 06:07; Start 07/22/17 at 15:00 Cyclobenzaprine HCl (Flexeril) 10 mg BID PO Last administered on 07/26/17 20: 03; Start 07/22/17 at 21:00 Insulin Aspart (NovoLOG) 10 units TIDAC SQ Last administered on 07/26/17 12: 27; Start 07/23/17 at 16:30 Sodium Chloride 1,000 ml @ 1,000 mls/hr Q1H PRN IV hypotension; Start at 14:33; Stop 07/23/17 at 20:32; Status DC Info (PHARMACY MONITORING -- do not chart) 1 each PRN DAILY PRN MC SEE COMMENTS ; Start 07/23/17 at 14:45; Stop 07/25/17 at 12:25; Status DC Carvedilol (Coreg) 3.125 mg BIDWMEALS PO Last administered on 07/26/17 17:30 ; Start 07/24/17 at 17:00 Multi-Ingredient Ointment (Analgesic [place]) 1 katia QID TP Last administered on 20:04; Start 07/24/17 at 13:00 Sodium Chloride 1,000 ml @ 1,000 mls/hr Q1H PRN IV hypotension; Start at 08:05; Stop 07/25/17 at 14:04; Status DC Albumin Human 200 ml @ 200 mls/hr 1X PRN PRN IV Hypotension; Start 07/25/17 at 08:15; Stop 07/25/17 at 14:14; Status DC Acetaminophen (Tylenol) 500 mg 1X PRN PRN PO MILD PAIN / TEMP; Start 07/25/17 at 08:15; Stop 07/26/17 at 08:14; Status DC Diphenhydramine HCl (Benadryl) 25 mg 1X PRN PRN IV ITCHING; Start 07/25/17 at 08:15; Stop 07/26/17 at 08:14; Status DC Diphenhydramine HCl (Benadryl) 25 mg 1X PRN PRN IV ITCHING; Start 07/25/17 at 08:15; Stop 07/26/17 at 08:14; Status DC Info (PHARMACY MONITORING -- do not chart) 1 each PRN DAILY PRN MC SEE COMMENTS ; Start 07/25/17 at 08:15 Info (PHARMACY MONITORING -- do not chart) 1 each PRN DAILY PRN MC SEE COMMENTS ; Start 07/25/17 at 08:15; Stop 07/25/17 at 08:15; Status DC Lidocaine HCl (Xylocaine-Mpf 1% Vial) 2 ml 1X ONCE INJ ; Start 07/25/17 at 08: 15; Stop 07/25/17 at 08:19; Status DC Lidocaine (Lidoderm) 1 patch DAILY TD Last administered on 07/26/17t 14:47; Start 07/25/17 at 17:30 Magnesium Sulfate/ Dextrose 50 ml @ 25 mls/hr PRN DAILY PRN IV for Mag < 1.7 on am labs; Start 07/26/17 at 13:45 Ondansetron HCl (Zofran) 4 mg PRN Q6HRS PRN IV NAUSEA/VOMITING; Start at 08:15; Stop 07/28/17 at 08:14 Fentanyl Citrate (Fentanyl 2ml Vial) 25 mcg PRN Q5MIN PRN IV MILD PAIN; Start 07/27/17 at 08:15; Stop 07/28/17 at 08:14 Fentanyl Citrate (Fentanyl 2ml Vial) 50 mcg PRN Q5MIN PRN IV MODERATE PAIN; Start 07/27/17 at 08:15; Stop 07/28/17 at 08:14 Morphine Sulfate 1 mg PRN Q10MIN PRN IV SEVERE PAIN; Start 07/27/17 at 08:15; Stop 07/28/17 at 08:14 Ringer's Solution 1,000 ml @ 30 mls/hr Q24H IV ; Start 07/27/17 at 08:12; Stop 07/27/17 at 20:11 Lidocaine HCl (Xylocaine-Mpf 1% Vial) 2 ml 1X PRN PRN ID IV START; Start 07/27 at 08:15; Stop 07/28/17 at 08:14 Hydromorphone HCl (Dilaudid) 0.5 mg PRN Q10MIN PRN IV SEV PAIN, Second choice; Start 07/27/17 at 08:15; Stop 07/28/17 at 08:14 Prochlorperazine Edisylate (Compazine) 5 mg PACU PRN PRN IV NAUSEA, MRX1; Start 07/27/17 at 08:15; Stop 07/28/17 at 08:14 Active Scripts Active Miralax (Polyethylene Glycol 3350) 119 Gm Powder 17 Gm PO BID hold for loose BM Levemir Flextouch (Insulin Detemir) 100 Unit/1 Ml Insuln.pen 28 Units SQ QHS Carvedilol 6.25 Mg Tablet 6.25 Mg PO BIDWMEALS Reported Humalog (Insulin Lispro) 100 Unit/1 Ml Cartridge 30 Unit SQ TIDAC Aspirin 81 Mg Tab.chew 1 Tab PO DAILY Glimepiride 4 Mg Tablet 1 Tab PO DAILY Gabapentin 300 Mg Capsule 300 Mg PO PRN TID PRN Omeprazole 20 Mg Capsule.dr 1 Cap PO DAILY Michelle-Edwin Tablet (Folic Acid/Vitamin B Comp W-C) 0.8 Mg Tablet 0.8 Mg PO DAILY Cyclobenzaprine Hcl 10 Mg Tablet 1 Tab PO BID Allergies Allergies: Coded Allergies: No Known Drug Allergies (Unverified , 05/25/17) ROS General: No: Chills, Other (fevers) PSYCHOLOGICAL ROS: No: Anxiety, Depression Eyes: No Blurry vision, No Double vision HEENT: No: Heacaches, Sore Throat Hematological and Lymphatic: No: Bleeding Problems, Blood Clots Respiratory: No: Cough, Shortness of breath Cardiovascular: No Chest Pain, No Palpitations Gastrointestinal: No Nausea, No Abdominal Pain Genitourinary: No Dysuria, No Retention Musculoskeletal: Yes Joint Pain, Yes Muscle Pain, Yes Muscular Weakness Neurological: No Confusion, No Numbness/Tingling Skin: No Pruritus, No Rash Physical Exam General: Alert, Oriented X3, Cooperative, No acute distress HEENT: PERRLA, Mucous membr. moist/pink Lungs: Clear to auscultation, Normal air movement Heart: Regular rate, Normal S1, Normal S2, No murmurs Abdomen: Soft, No tenderness Extremities: Other (upper left thigh, palpable fullness/nodule, no skin breakdown, upper right thigh small palpable fullness) Skin: No rashes, No breakdown Neuro: Normal speech, Sensation intact Psych/Mental Status: Mental status NL, Mood NL MUSCULOSKELETAL: No deformity, No swelling Vitals VITALS Vital Signs Date Time Temp Pulse Resp B/P (MAP) Pulse Ox O2 Delivery O2 Flow Rate FiO2 07/27/17 03:00 97.9 77 20 116/57 (76) 97 Room Air 97.9 Labs Labs Laboratory Tests Test 07/25/17 14:30 07/25/17 15:44 07/25/17 17:04 07/25/17 17:58 Glucose (Fingerstick) 67 mg/dL (70-99) 117 mg/dL (70-99) 131 mg/dL (70-99) 255 mg/dL (70-99) Test 07/25/17 22:20 07/26/17 07:09 07/26/17 10:57 07/26/17 12:15 Glucose (Fingerstick) 112 mg/dL (70-99) 130 mg/dL (70-99) 121 mg/dL (70-99) White Blood Count 8.6 x10^3/uL (4.0-11.0) Red Blood Count 3.51 x10^6/uL (3.50-5.40) Hemoglobin 10.8 g/dL (12.0-15.5) Hematocrit 33.4 % (36.0-47.0) Mean Corpuscular Volume 95 fL (79-100) Mean Corpuscular Hemoglobin 31 pg (25-35) Mean Corpuscular Hemoglobin Concent 33 g/dL (31-37) Red Cell Distribution Width 13.9 % (11.5-14.5) Platelet Count 260 x10^3/uL (140-400) Neutrophils (%) (Auto) 60 % (31-73) Lymphocytes (%) (Auto) 28 % (24-48) Monocytes (%) (Auto) 8 % (0-9) Eosinophils (%) (Auto) 3 % (0-3) Basophils (%) (Auto) 1 % (0-3) Neutrophils # (Auto) 5.2 x10^3uL (1.8-7.7) Lymphocytes # (Auto) 2.4 x10^3/uL (1.0-4.8) Monocytes # (Auto) 0.7 x10^3/uL (0.0-1.1) Eosinophils # (Auto) 0.3 x10^3/uL (0.0-0.7) Basophils # (Auto) 0.1 x10^3/uL (0.0-0.2) Sodium Level 136 mmol/L (136-145) Potassium Level 4.0 mmol/L (3.5-5.1) Chloride Level 99 mmol/L (98-107) Carbon Dioxide Level 31 mmol/L (21-32) Anion Gap 6 (6-14) Blood Urea Nitrogen 18 mg/dL (7-20) Creatinine 3.2 mg/dL (0.6-1.0) Estimated GFR (Cockcroft-Gault) 14.4 BUN/Creatinine Ratio 6 (6-20) Glucose Level 74 mg/dL (70-99) Calcium Level 9.0 mg/dL (8.5-10.1) Total Bilirubin 0.4 mg/dL (0.2-1.0) Aspartate Amino Transf (AST/SGOT) 20 U/L (15-37) Alanine Aminotransferase (ALT/SGPT) 15 U/L (14-59) Alkaline Phosphatase 290 U/L (46-116) Total Protein 6.2 g/dL (6.4-8.2) Albumin 2.3 g/dL (3.4-5.0) Albumin/Globulin Ratio 0.6 (1.0-1.7) Test 07/26/17 13:58 07/26/17 14:46 07/26/17 16:31 07/26/17 20:54 Glucose (Fingerstick) 32 mg/dL (70-99) 84 mg/dL (70-99) 142 mg/dL (70-99) 287 mg/dL (70-99) Test 07/27/17 04:08 Hemoglobin 9.9 g/dL (12.0-15.5) Sodium Level 135 mmol/L (136-145) Potassium Level 4.1 mmol/L (3.5-5.1) Chloride Level 99 mmol/L (98-107) Carbon Dioxide Level 27 mmol/L (21-32) Anion Gap 9 (6-14) Blood Urea Nitrogen 28 mg/dL (7-20) Creatinine 4.0 mg/dL (0.6-1.0) Estimated GFR (Cockcroft-Gault) 11.1 Glucose Level 212 mg/dL (70-99) Calcium Level 9.0 mg/dL (8.5-10.1) Phosphorus Level 4.4 mg/dL (2.6-4.7) Magnesium Level 2.2 mg/dL (1.8-2.4) Albumin 2.1 g/dL (3.4-5.0) Laboratory Tests Test 07/26/17 10:57 07/26/17 12:15 07/26/17 13:58 07/26/17 14:46 Glucose (Fingerstick) 121 mg/dL (70-99) 32 mg/dL (70-99) 84 mg/dL (70-99) White Blood Count 8.6 x10^3/uL (4.0-11.0) Red Blood Count 3.51 x10^6/uL (3.50-5.40) Hemoglobin 10.8 g/dL (12.0-15.5) Hematocrit 33.4 % (36.0-47.0) Mean Corpuscular Volume 95 fL (79-100) Mean Corpuscular Hemoglobin 31 pg (25-35) Mean Corpuscular Hemoglobin Concent 33 g/dL (31-37) Red Cell Distribution Width 13.9 % (11.5-14.5) Platelet Count 260 x10^3/uL (140-400) Neutrophils (%) (Auto) 60 % (31-73) Lymphocytes (%) (Auto) 28 % (24-48) Monocytes (%) (Auto) 8 % (0-9) Eosinophils (%) (Auto) 3 % (0-3) Basophils (%) (Auto) 1 % (0-3) Neutrophils # (Auto) 5.2 x10^3uL (1.8-7.7) Lymphocytes # (Auto) 2.4 x10^3/uL (1.0-4.8) Monocytes # (Auto) 0.7 x10^3/uL (0.0-1.1) Eosinophils # (Auto) 0.3 x10^3/uL (0.0-0.7) Basophils # (Auto) 0.1 x10^3/uL (0.0-0.2) Sodium Level 136 mmol/L (136-145) Potassium Level 4.0 mmol/L (3.5-5.1) Chloride Level 99 mmol/L (98-107) Carbon Dioxide Level 31 mmol/L (21-32) Anion Gap 6 (6-14) Blood Urea Nitrogen 18 mg/dL (7-20) Creatinine 3.2 mg/dL (0.6-1.0) Estimated GFR (Cockcroft-Gault) 14.4 BUN/Creatinine Ratio 6 (6-20) Glucose Level 74 mg/dL (70-99) Calcium Level 9.0 mg/dL (8.5-10.1) Total Bilirubin 0.4 mg/dL (0.2-1.0) Aspartate Amino Transf (AST/SGOT) 20 U/L (15-37) Alanine Aminotransferase (ALT/SGPT) 15 U/L (14-59) Alkaline Phosphatase 290 U/L (46-116) Total Protein 6.2 g/dL (6.4-8.2) Albumin 2.3 g/dL (3.4-5.0) Albumin/Globulin Ratio 0.6 (1.0-1.7) Test 07/26/17 16:31 07/26/17 20:54 07/27/17 04:08 Glucose (Fingerstick) 142 mg/dL (70-99) 287 mg/dL (70-99) Hemoglobin 9.9 g/dL (12.0-15.5) Sodium Level 135 mmol/L (136-145) Potassium Level 4.1 mmol/L (3.5-5.1) Chloride Level 99 mmol/L (98-107) Carbon Dioxide Level 27 mmol/L (21-32) Anion Gap 9 (6-14) Blood Urea Nitrogen 28 mg/dL (7-20) Creatinine 4.0 mg/dL (0.6-1.0) Estimated GFR (Cockcroft-Gault) 11.1 Glucose Level 212 mg/dL (70-99) Calcium Level 9.0 mg/dL (8.5-10.1) Phosphorus Level 4.4 mg/dL (2.6-4.7) Magnesium Level 2.2 mg/dL (1.8-2.4) Albumin 2.1 g/dL (3.4-5.0) Assessment/Plan Assessment/Plan bilateral thigh nodules, increasing pain and LE weakness Multiple comorbidities including Afib, CHF, HTN, DM, ESRD skin biopsy planned GINNY WONG APRN Jul 27, 2017 08:37
[2017-07-27] MEDS ORDERED: DEXTROSE 50% 25 GM / 50ML DISP.SYRIN. IV PRN (09:00)
[2017-07-27] MEDS: POLYETHYLENE GLYCOL 3350 17 GM PACKET. PO SCH ×2 (09:00→21:00)
[2017-07-27] MEDS: METHYL SALICYLATE/MENTHOL TOPICAL OINTMENT 29GM TUBE. TP SCH ×4 (09:00→21:00)
[2017-07-27] MEDS ORDERED: IV NORMAL SALINE 1000ML BAG 1,000 ML IV PRN ×2 (09:24)
[2017-07-27] MEDS ORDERED: DIALYSIS PATIENT. MC PRN (09:30)
[2017-07-27] MEDS ORDERED: diphenhydrAMINE 50 MG/ML VIAL IV PRN ×2 (09:30)
[2017-07-27] MEDS: CARVEDILOL 3.125 MG TABLET. PO SCH ×2 (09:36→18:37)
[2017-07-27] MEDS ORDERED: LIDOCAINE 1% PF 2 ML VIAL. ID STA (09:52)
--- NOTE | 2017-07-27 09:53 | PDOC ---
PROGRESS NOTES Chief Complaint Chief Complaint Generalized weakness Occluded AV fistula teNDER THIGH NODULES, CALCIPHYLAXIS VS EN ASSESSMENT AND PLAN: 1. Malaise, cough: CXR clear. suspect viral URI. supportive care 2. ESRD: on HD //, fistula now functioning 3. CHF: chronic, mod diastolic, (EF 60-65%) 4. Afib: rate controlled; 5. OAC: recommended, but pt opposed to coumadin, could not afford anti- thrombin inhibitos in past, but now insured. TBD in cardiology clinic 6. HTN: well controlled on BB only, borderline low. decrease coreg 7. DM: borderline control with occas low BG. cont insulin regimen, ISS 8. Chronic lymphedema/venous insufficiency: leg elevation, 9. MATTHEW: 10. Morbid obesity BMI 35 11. VitD deficiency: replete 12. PCM: hypoalbuminemia confounded by ESRD, chronic dz. dietary teaching 13. Chronic pain: leg, shoulder (hx R large rotator cuff tear). Jessy no working. trial lidocaine patch, norco PRN. obtain flat films to r/o fx 14. Dispo: OT/PT rec for SNF, but pt declines History of Present Illness History of Present Illness PAlpable tender nodules on lateral sides of thing most bothersome for her is on the R NONE can be seen EN led my difftls, recent BMA for MM was neg (< 5% plasma cells) Also no evodence of sarcoidosis on cxr and chest CT NOn toxic appearing\ Requests certain foods for dinner PLAN: I defer to renal if they are ok with pt's requests for her meals tonight Skin biopsy later by [facility] HD today Shayan miranda PT/OT Vitals Vitals Vital Signs Date Time Temp Pulse Resp B/P (MAP) Pulse Ox O2 Delivery O2 Flow Rate FiO2 07/27/17 09:36 86 118/62 07/27/17 07:00 97.9 20 95 Room Air 97.9 Physical Exam General: Alert, Oriented X3, Cooperative, No acute distress Heart: Regular rate, Normal S1, Normal S2, No murmurs Lungs: Clear Abdomen: Soft, No tenderness Extremities: Other (upper left thigh, palpable fullness/nodule, no skin breakdown, upper right thigh small palpable fullness) Skin: No rashes, No breakdown Labs LABS Laboratory Tests Test 07/26/17 10:57 07/26/17 12:15 07/26/17 13:58 07/26/17 14:46 Glucose (Fingerstick) 121 mg/dL (70-99) 32 mg/dL (70-99) 84 mg/dL (70-99) White Blood Count 8.6 x10^3/uL (4.0-11.0) Red Blood Count 3.51 x10^6/uL (3.50-5.40) Hemoglobin 10.8 g/dL (12.0-15.5) Hematocrit 33.4 % (36.0-47.0) Mean Corpuscular Volume 95 fL (79-100) Mean Corpuscular Hemoglobin 31 pg (25-35) Mean Corpuscular Hemoglobin Concent 33 g/dL (31-37) Red Cell Distribution Width 13.9 % (11.5-14.5) Platelet Count 260 x10^3/uL (140-400) Neutrophils (%) (Auto) 60 % (31-73) Lymphocytes (%) (Auto) 28 % (24-48) Monocytes (%) (Auto) 8 % (0-9) Eosinophils (%) (Auto) 3 % (0-3) Basophils (%) (Auto) 1 % (0-3) Neutrophils # (Auto) 5.2 x10^3uL (1.8-7.7) Lymphocytes # (Auto) 2.4 x10^3/uL (1.0-4.8) Monocytes # (Auto) 0.7 x10^3/uL (0.0-1.1) Eosinophils # (Auto) 0.3 x10^3/uL (0.0-0.7) Basophils # (Auto) 0.1 x10^3/uL (0.0-0.2) Sodium Level 136 mmol/L (136-145) Potassium Level 4.0 mmol/L (3.5-5.1) Chloride Level 99 mmol/L (98-107) Carbon Dioxide Level 31 mmol/L (21-32) Anion Gap 6 (6-14) Blood Urea Nitrogen 18 mg/dL (7-20) Creatinine 3.2 mg/dL (0.6-1.0) Estimated GFR (Cockcroft-Gault) 14.4 BUN/Creatinine Ratio 6 (6-20) Glucose Level 74 mg/dL (70-99) Calcium Level 9.0 mg/dL (8.5-10.1) Total Bilirubin 0.4 mg/dL (0.2-1.0) Aspartate Amino Transf (AST/SGOT) 20 U/L (15-37) Alanine Aminotransferase (ALT/SGPT) 15 U/L (14-59) Alkaline Phosphatase 290 U/L (46-116) Total Protein 6.2 g/dL (6.4-8.2) Albumin 2.3 g/dL (3.4-5.0) Albumin/Globulin Ratio 0.6 (1.0-1.7) Test 07/26/17 16:31 07/26/17 20:54 07/27/17 04:08 Glucose (Fingerstick) 142 mg/dL (70-99) 287 mg/dL (70-99) Hemoglobin 9.9 g/dL (12.0-15.5) Sodium Level 135 mmol/L (136-145) Potassium Level 4.1 mmol/L (3.5-5.1) Chloride Level 99 mmol/L (98-107) Carbon Dioxide Level 27 mmol/L (21-32) Anion Gap 9 (6-14) Blood Urea Nitrogen 28 mg/dL (7-20) Creatinine 4.0 mg/dL (0.6-1.0) Estimated GFR (Cockcroft-Gault) 11.1 Glucose Level 212 mg/dL (70-99) Calcium Level 9.0 mg/dL (8.5-10.1) Phosphorus Level 4.4 mg/dL (2.6-4.7) Magnesium Level 2.2 mg/dL (1.8-2.4) Albumin 2.1 g/dL (3.4-5.0) Review of Systems Review of Systems denies 14 pt - except in HPI, tender nodules in shins Comment Review of Relevant I have reviewed the following items kai (where applicable) has been applied. Labs Laboratory Tests Test 07/25/17 14:30 07/25/17 15:44 07/25/17 17:04 07/25/17 17:58 Glucose (Fingerstick) 67 mg/dL (70-99) 117 mg/dL (70-99) 131 mg/dL (70-99) 255 mg/dL (70-99) Test 07/25/17 22:20 07/26/17 07:09 07/26/17 10:57 07/26/17 12:15 Glucose (Fingerstick) 112 mg/dL (70-99) 130 mg/dL (70-99) 121 mg/dL (70-99) White Blood Count 8.6 x10^3/uL (4.0-11.0) Red Blood Count 3.51 x10^6/uL (3.50-5.40) Hemoglobin 10.8 g/dL (12.0-15.5) Hematocrit 33.4 % (36.0-47.0) Mean Corpuscular Volume 95 fL (79-100) Mean Corpuscular Hemoglobin 31 pg (25-35) Mean Corpuscular Hemoglobin Concent 33 g/dL (31-37) Red Cell Distribution Width 13.9 % (11.5-14.5) Platelet Count 260 x10^3/uL (140-400) Neutrophils (%) (Auto) 60 % (31-73) Lymphocytes (%) (Auto) 28 % (24-48) Monocytes (%) (Auto) 8 % (0-9) Eosinophils (%) (Auto) 3 % (0-3) Basophils (%) (Auto) 1 % (0-3) Neutrophils # (Auto) 5.2 x10^3uL (1.8-7.7) Lymphocytes # (Auto) 2.4 x10^3/uL (1.0-4.8) Monocytes # (Auto) 0.7 x10^3/uL (0.0-1.1) Eosinophils # (Auto) 0.3 x10^3/uL (0.0-0.7) Basophils # (Auto) 0.1 x10^3/uL (0.0-0.2) Sodium Level 136 mmol/L (136-145) Potassium Level 4.0 mmol/L (3.5-5.1) Chloride Level 99 mmol/L (98-107) Carbon Dioxide Level 31 mmol/L (21-32) Anion Gap 6 (6-14) Blood Urea Nitrogen 18 mg/dL (7-20) Creatinine 3.2 mg/dL (0.6-1.0) Estimated GFR (Cockcroft-Gault) 14.4 BUN/Creatinine Ratio 6 (6-20) Glucose Level 74 mg/dL (70-99) Calcium Level 9.0 mg/dL (8.5-10.1) Total Bilirubin 0.4 mg/dL (0.2-1.0) Aspartate Amino Transf (AST/SGOT) 20 U/L (15-37) Alanine Aminotransferase (ALT/SGPT) 15 U/L (14-59) Alkaline Phosphatase 290 U/L (46-116) Total Protein 6.2 g/dL (6.4-8.2) Albumin 2.3 g/dL (3.4-5.0) Albumin/Globulin Ratio 0.6 (1.0-1.7) Test 07/26/17 13:58 07/26/17 14:46 07/26/17 16:31 07/26/17 20:54 Glucose (Fingerstick) 32 mg/dL (70-99) 84 mg/dL (70-99) 142 mg/dL (70-99) 287 mg/dL (70-99) Test 07/27/17 04:08 Hemoglobin 9.9 g/dL (12.0-15.5) Sodium Level 135 mmol/L (136-145) Potassium Level 4.1 mmol/L (3.5-5.1) Chloride Level 99 mmol/L (98-107) Carbon Dioxide Level 27 mmol/L (21-32) Anion Gap 9 (6-14) Blood Urea Nitrogen 28 mg/dL (7-20) Creatinine 4.0 mg/dL (0.6-1.0) Estimated GFR (Cockcroft-Gault) 11.1 Glucose Level 212 mg/dL (70-99) Calcium Level 9.0 mg/dL (8.5-10.1) Phosphorus Level 4.4 mg/dL (2.6-4.7) Magnesium Level 2.2 mg/dL (1.8-2.4) Albumin 2.1 g/dL (3.4-5.0) Laboratory Tests Test 07/26/17 10:57 07/26/17 12:15 07/26/17 13:58 07/26/17 14:46 Glucose (Fingerstick) 121 mg/dL (70-99) 32 mg/dL (70-99) 84 mg/dL (70-99) White Blood Count 8.6 x10^3/uL (4.0-11.0) Red Blood Count 3.51 x10^6/uL (3.50-5.40) Hemoglobin 10.8 g/dL (12.0-15.5) Hematocrit 33.4 % (36.0-47.0) Mean Corpuscular Volume 95 fL (79-100) Mean Corpuscular Hemoglobin 31 pg (25-35) Mean Corpuscular Hemoglobin Concent 33 g/dL (31-37) Red Cell Distribution Width 13.9 % (11.5-14.5) Platelet Count 260 x10^3/uL (140-400) Neutrophils (%) (Auto) 60 % (31-73) Lymphocytes (%) (Auto) 28 % (24-48) Monocytes (%) (Auto) 8 % (0-9) Eosinophils (%) (Auto) 3 % (0-3) Basophils (%) (Auto) 1 % (0-3) Neutrophils # (Auto) 5.2 x10^3uL (1.8-7.7) Lymphocytes # (Auto) 2.4 x10^3/uL (1.0-4.8) Monocytes # (Auto) 0.7 x10^3/uL (0.0-1.1) Eosinophils # (Auto) 0.3 x10^3/uL (0.0-0.7) Basophils # (Auto) 0.1 x10^3/uL (0.0-0.2) Sodium Level 136 mmol/L (136-145) Potassium Level 4.0 mmol/L (3.5-5.1) Chloride Level 99 mmol/L (98-107) Carbon Dioxide Level 31 mmol/L (21-32) Anion Gap 6 (6-14) Blood Urea Nitrogen 18 mg/dL (7-20) Creatinine 3.2 mg/dL (0.6-1.0) Estimated GFR (Cockcroft-Gault) 14.4 BUN/Creatinine Ratio 6 (6-20) Glucose Level 74 mg/dL (70-99) Calcium Level 9.0 mg/dL (8.5-10.1) Total Bilirubin 0.4 mg/dL (0.2-1.0) Aspartate Amino Transf (AST/SGOT) 20 U/L (15-37) Alanine Aminotransferase (ALT/SGPT) 15 U/L (14-59) Alkaline Phosphatase 290 U/L (46-116) Total Protein 6.2 g/dL (6.4-8.2) Albumin 2.3 g/dL (3.4-5.0) Albumin/Globulin Ratio 0.6 (1.0-1.7) Test 07/26/17 16:31 07/26/17 20:54 07/27/17 04:08 Glucose (Fingerstick) 142 mg/dL (70-99) 287 mg/dL (70-99) Hemoglobin 9.9 g/dL (12.0-15.5) Sodium Level 135 mmol/L (136-145) Potassium Level 4.1 mmol/L (3.5-5.1) Chloride Level 99 mmol/L (98-107) Carbon Dioxide Level 27 mmol/L (21-32) Anion Gap 9 (6-14) Blood Urea Nitrogen 28 mg/dL (7-20) Creatinine 4.0 mg/dL (0.6-1.0) Estimated GFR (Cockcroft-Gault) 11.1 Glucose Level 212 mg/dL (70-99) Calcium Level 9.0 mg/dL (8.5-10.1) Phosphorus Level 4.4 mg/dL (2.6-4.7) Magnesium Level 2.2 mg/dL (1.8-2.4) Albumin 2.1 g/dL (3.4-5.0) Medications Current Medications Fentanyl Citrate (Fentanyl 2ml Vial) 25 mcg 1X ONCE IM ; Start 07/21/17 at 09: 30; Stop 07/21/17 at 09:31; Status DC Fentanyl Citrate (Fentanyl 2ml Vial) 25 mcg 1X ONCE IV Last administered on 10:00; Start 07/21/17 at 10:00; Stop 07/21/17 at 10:02; Status DC Insulin Aspart (NovoLOG) 0-9 UNITS TIDWMEALS SQ Last administered on 12:10; Start 07/21/17 at 12:00; Stop 07/21/17 at 14:40; Status DC Dextrose (Dextrose 50%-Water Syringe) 12.5 gm PRN Q15MIN PRN IV SEE COMMENTS; Start 07/21/17 at 12:00; Status Cancel Aspirin (Children'S Aspirin) 81 mg DAILY PO ; Start 07/21/17 at 14:00; Stop at 14:00; Status DC Carvedilol (Coreg) 6.25 mg BIDWMEALS PO Last administered on 07/23/17 16:51; Start 07/21/17 at 17:00; Stop 07/24/17 at 08:47; Status DC Aspirin (Bethanie Aspirin) 325 mg DAILYWBKFT PO Last administered on 07/26/17 08 :49; Start 07/21/17 at 13:45 Vitamin B Complex/ Vitamin C (Michelle-Edwin) 1 tab DAILY PO Last administered on 08:49; Start 07/22/17 at 09:00 Insulin Detemir (Levemir) 28 units QHS SQ Last administered on 07/26/17 21:22 ; Start 07/21/17 at 21:00 Polyethylene Glycol (miraLAX PACKET) 17 gm BID PO Last administered on 20:31; Start 07/21/17 at 21:00 Gabapentin (Neurontin) 300 mg PRN TID PRN PO NERVE PAIN Last administered on 20:03; Start 07/21/17 at 14:00 Glimepiride (Amaryl) 4 mg DAILYWBKFT PO Last administered on 07/26/17 08:50; Start 07/22/17 at 08:00; Stop 07/26/17 at 17:18; Status DC Insulin Aspart (NovoLOG) 30 units TIDAC SQ Last administered on 07/22/17 12: 29; Start 07/21/17 at 16:30; Stop 07/22/17 at 14:27; Status DC Pantoprazole Sodium (Protonix) 40 mg DAILYAC PO Last administered on 07:40; Start 07/22/17 at 07:30 Insulin Aspart (NovoLOG) 0-5 UNITS TIDWMEALS SQ Last administered on 08:16; Start 07/21/17 at 17:00; Stop 07/27/17 at 08:47; Status DC Dextrose (Dextrose 50%-Water Syringe) 12.5 gm PRN Q15MIN PRN IV SEE COMMENTS; Start 07/21/17 at 13:45 Lidocaine HCl (Xylocaine-Mpf 1% Vial) 2 ml 1X ONCE INJ ; Start 07/21/17 at 16: 00; Stop 07/21/17 at 16:01; Status DC Oxycodone HCl (Roxicodone) 5 mg PRN Q6HRS PRN PO PAIN Last administered on 05:34; Start 07/21/17 at 17:00 Sodium Chloride 1,000 ml @ 1,000 mls/hr Q1H PRN IV hypotension; Start at 18:58; Stop 07/22/17 at 00:57; Status DC Albumin Human 200 ml @ 200 mls/hr 1X PRN PRN IV Hypotension; Start 07/21/17 at 19:00; Stop 07/22/17 at 00:59; Status DC Info (PHARMACY MONITORING -- do not chart) 1 each PRN DAILY PRN MC SEE COMMENTS ; Start 07/21/17 at 19:00; Stop 07/24/17 at 08:52; Status DC Insulin Aspart (NovoLOG) 20 units TIDAC SQ ; Start 07/22/17 at 15:00; Stop at 11:56; Status DC Vitamin D (Vitamin D3) 1,000 unit DAILY PO Last administered on 07/26/17 08: 50; Start 07/22/17 at 15:00 Heparin Sodium (Porcine) (Heparin Sq) 5,000 unit Q8HRS SQ Last administered on 07/23/17 06:07; Start 07/22/17 at 15:00 Cyclobenzaprine HCl (Flexeril) 10 mg BID PO Last administered on 07/26/17 20: 03; Start 07/22/17 at 21:00 Insulin Aspart (NovoLOG) 10 units TIDAC SQ Last administered on 07/26/17 12: 27; Start 07/23/17 at 16:30 Sodium Chloride 1,000 ml @ 1,000 mls/hr Q1H PRN IV hypotension; Start at 14:33; Stop 07/23/17 at 20:32; Status DC Info (PHARMACY MONITORING -- do not chart) 1 each PRN DAILY PRN MC SEE COMMENTS ; Start 07/23/17 at 14:45; Stop 07/25/17 at 12:25; Status DC Carvedilol (Coreg) 3.125 mg BIDWMEALS PO Last administered on 07/27/17 09:36 ; Start 07/24/17 at 17:00 Multi-Ingredient Ointment (Analgesic [place]) 1 katia QID TP Last administered on 20:04; Start 07/24/17 at 13:00 Sodium Chloride 1,000 ml @ 1,000 mls/hr Q1H PRN IV hypotension; Start at 08:05; Stop 07/25/17 at 14:04; Status DC Albumin Human 200 ml @ 200 mls/hr 1X PRN PRN IV Hypotension; Start 07/25/17 at 08:15; Stop 07/25/17 at 14:14; Status DC Acetaminophen (Tylenol) 500 mg 1X PRN PRN PO MILD PAIN / TEMP; Start 07/25/17 at 08:15; Stop 07/26/17 at 08:14; Status DC Diphenhydramine HCl (Benadryl) 25 mg 1X PRN PRN IV ITCHING; Start 07/25/17 at 08:15; Stop 07/26/17 at 08:14; Status DC Diphenhydramine HCl (Benadryl) 25 mg 1X PRN PRN IV ITCHING; Start 07/25/17 at 08:15; Stop 07/26/17 at 08:14; Status DC Info (PHARMACY MONITORING -- do not chart) 1 each PRN DAILY PRN MC SEE COMMENTS ; Start 07/25/17 at 08:15 Info (PHARMACY MONITORING -- do not chart) 1 each PRN DAILY PRN MC SEE COMMENTS ; Start 07/25/17 at 08:15; Stop 07/25/17 at 08:15; Status DC Lidocaine HCl (Xylocaine-Mpf 1% Vial) 2 ml 1X ONCE INJ ; Start 07/25/17 at 08: 15; Stop 07/25/17 at 08:19; Status DC Lidocaine (Lidoderm) 1 patch DAILY TD Last administered on 07/26/17t 14:47; Start 07/25/17 at 17:30 Magnesium Sulfate/ Dextrose 50 ml @ 25 mls/hr PRN DAILY PRN IV for Mag < 1.7 on am labs; Start 07/26/17 at 13:45 Ondansetron HCl (Zofran) 4 mg PRN Q6HRS PRN IV NAUSEA/VOMITING; Start at 08:15; Stop 07/28/17 at 08:14 Fentanyl Citrate (Fentanyl 2ml Vial) 25 mcg PRN Q5MIN PRN IV MILD PAIN; Start 07/27/17 at 08:15; Stop 07/28/17 at 08:14 Fentanyl Citrate (Fentanyl 2ml Vial) 50 mcg PRN Q5MIN PRN IV MODERATE PAIN; Start 07/27/17 at 08:15; Stop 07/28/17 at 08:14 Morphine Sulfate 1 mg PRN Q10MIN PRN IV SEVERE PAIN; Start 07/27/17 at 08:15; Stop 07/28/17 at 08:14 Ringer's Solution 1,000 ml @ 30 mls/hr Q24H IV ; Start 07/27/17 at 08:12; Stop 07/27/17 at 20:11 Lidocaine HCl (Xylocaine-Mpf 1% Vial) 2 ml 1X PRN PRN ID IV START; Start 07/27 at 08:15; Stop 07/28/17 at 08:14 Hydromorphone HCl (Dilaudid) 0.5 mg PRN Q10MIN PRN IV SEV PAIN, Second choice; Start 07/27/17 at 08:15; Stop 07/28/17 at 08:14 Prochlorperazine Edisylate (Compazine) 5 mg PACU PRN PRN IV NAUSEA, MRX1; Start 07/27/17 at 08:15; Stop 07/28/17 at 08:14 Insulin Aspart (NovoLOG) 0-9 UNITS TIDWMEALS SQ ; Start 07/27/17 at 12:00 Dextrose (Dextrose 50%-Water Syringe) 12.5 gm PRN Q15MIN PRN IV SEE COMMENTS; Start 07/27/17 at 09:00 Sodium Chloride 1,000 ml @ 1,000 mls/hr Q1H PRN IV hypotension; Start at 09:24; Stop 07/27/17 at 15:23 Diphenhydramine HCl (Benadryl) 25 mg 1X PRN PRN IV ITCHING; Start 07/27/17 at 09:30; Stop 07/28/17 at 09:29 Diphenhydramine HCl (Benadryl) 25 mg 1X PRN PRN IV ITCHING; Start 07/27/17 at 09:30; Stop 07/28/17 at 09:29 Sodium Chloride 1,000 ml @ 400 mls/hr Q2H30M PRN IV PATENCY; Start 07/27/17 at 09:24; Stop 07/27/17 at 21:23 Info (PHARMACY MONITORING -- do not chart) 1 each PRN DAILY PRN MC SEE COMMENTS ; Start 07/27/17 at 09:30; Status UNV Active Scripts Active Miralax (Polyethylene Glycol 3350) 119 Gm Powder 17 Gm PO BID hold for loose BM Levemir Flextouch (Insulin Detemir) 100 Unit/1 Ml Insuln.pen 28 Units SQ QHS Carvedilol 6.25 Mg Tablet 6.25 Mg PO BIDWMEALS Reported Humalog (Insulin Lispro) 100 Unit/1 Ml Cartridge 30 Unit SQ TIDAC Aspirin 81 Mg Tab.chew 1 Tab PO DAILY Glimepiride 4 Mg Tablet 1 Tab PO DAILY Gabapentin 300 Mg Capsule 300 Mg PO PRN TID PRN Omeprazole 20 Mg Capsule. 1 Cap PO DAILY Michelle-Edwin Tablet (Folic Acid/Vitamin B Comp W-C) 0.8 Mg Tablet 0.8 Mg PO DAILY Cyclobenzaprine Hcl 10 Mg Tablet 1 Tab PO BID Vitals/I & O Vital Sign - Last 24 Hours 07/26/17 07/26/17 07/26/17 07/26/17 10:35 14:45 17:30 19:00 Temp 98.8 97.4 98.2 98.8 97.4 98.2 Pulse 87 87 87 85 Resp B/P (MAP) 119/70 (86) 170/90 (116) 170/90 109/61 (77) Pulse Ox 93 94 95 O2 Delivery Room Air Room Air Room Air 07/26/17 07/26/17 07/27/17 07/27/17 20:00 23:00 03:00 07:00 Temp 98.1 97.9 97.9 98.1 97.9 97.9 Pulse 80 77 86 Resp B/P (MAP) 98/38 (58) 116/57 (76) 118/62 (80) Pulse Ox 98 97 95 O2 Delivery Room Air Room Air Room Air Room Air 07/27/17 09:36 Pulse 86 B/P (MAP) 118/62 Intake and Output 07/26/17 07/26/17 07/27/17 14:59 22:59 06:59 Intake Total 260 ml 400 ml Output Total 1 ml Balance -1 ml 260 ml 400 ml DHRUV LACEY MD Jul 27, 2017 09:53
--- NOTE | 2017-07-27 10:55 | PDOC ---
Dialysis Progress Note Dialysis Note Dialysis Note Seen on Hemodialysis, tolerating treatment Well Vitals on Hemodialysis: 186/49 72 afeb General Appearance: Awake: Alert Oriented x 3 Neck: No JVD or JVP Chest: CTA [place] Heart: S1 S2 Abdomen - Soft NTND Extremities - No Edema ESRD: Dialysis as below F 180 NR 4.0 Hrs 3 K 2.5 Ca 140 Na 35 HC03 Qb 350 + Qd 500+ Heparin 0 Units Uf 1 Kgs or to dry weight as tolerated (pt having diarrhea) May give 25-50 gms of 25% Albumin if needed to maintain Hemodynamic stability Treatment plan reviewed and discussed with telephone answerer Vitals Vital Signs Vital Signs Date Time Temp Pulse Resp B/P (MAP) Pulse Ox O2 Delivery O2 Flow Rate FiO2 07/27/17 09:36 86 118/62 07/27/17 07:00 97.9 20 95 Room Air 97.9 07/23/17 19:00 2.0 Labs Last Labs Laboratory Tests Test 07/25/17 14:30 07/25/17 15:44 07/25/17 17:04 07/25/17 17:58 Glucose (Fingerstick) 67 mg/dL (70-99) 117 mg/dL (70-99) 131 mg/dL (70-99) 255 mg/dL (70-99) Test 07/25/17 22:20 07/26/17 07:09 07/26/17 10:57 07/26/17 12:15 Glucose (Fingerstick) 112 mg/dL (70-99) 130 mg/dL (70-99) 121 mg/dL (70-99) White Blood Count 8.6 x10^3/uL (4.0-11.0) Red Blood Count 3.51 x10^6/uL (3.50-5.40) Hemoglobin 10.8 g/dL (12.0-15.5) Hematocrit 33.4 % (36.0-47.0) Mean Corpuscular Volume 95 fL (79-100) Mean Corpuscular Hemoglobin 31 pg (25-35) Mean Corpuscular Hemoglobin Concent 33 g/dL (31-37) Red Cell Distribution Width 13.9 % (11.5-14.5) Platelet Count 260 x10^3/uL (140-400) Neutrophils (%) (Auto) 60 % (31-73) Lymphocytes (%) (Auto) 28 % (24-48) Monocytes (%) (Auto) 8 % (0-9) Eosinophils (%) (Auto) 3 % (0-3) Basophils (%) (Auto) 1 % (0-3) Neutrophils # (Auto) 5.2 x10^3uL (1.8-7.7) Lymphocytes # (Auto) 2.4 x10^3/uL (1.0-4.8) Monocytes # (Auto) 0.7 x10^3/uL (0.0-1.1) Eosinophils # (Auto) 0.3 x10^3/uL (0.0-0.7) Basophils # (Auto) 0.1 x10^3/uL (0.0-0.2) Sodium Level 136 mmol/L (136-145) Potassium Level 4.0 mmol/L (3.5-5.1) Chloride Level 99 mmol/L (98-107) Carbon Dioxide Level 31 mmol/L (21-32) Anion Gap 6 (6-14) Blood Urea Nitrogen 18 mg/dL (7-20) Creatinine 3.2 mg/dL (0.6-1.0) Estimated GFR (Cockcroft-Gault) 14.4 BUN/Creatinine Ratio 6 (6-20) Glucose Level 74 mg/dL (70-99) Calcium Level 9.0 mg/dL (8.5-10.1) Total Bilirubin 0.4 mg/dL (0.2-1.0) Aspartate Amino Transf (AST/SGOT) 20 U/L (15-37) Alanine Aminotransferase (ALT/SGPT) 15 U/L (14-59) Alkaline Phosphatase 290 U/L (46-116) Total Protein 6.2 g/dL (6.4-8.2) Albumin 2.3 g/dL (3.4-5.0) Albumin/Globulin Ratio 0.6 (1.0-1.7) Test 07/26/17 13:58 07/26/17 14:46 07/26/17 16:31 07/26/17 20:54 Glucose (Fingerstick) 32 mg/dL (70-99) 84 mg/dL (70-99) 142 mg/dL (70-99) 287 mg/dL (70-99) Test 07/27/17 04:08 Hemoglobin 9.9 g/dL (12.0-15.5) Sodium Level 135 mmol/L (136-145) Potassium Level 4.1 mmol/L (3.5-5.1) Chloride Level 99 mmol/L (98-107) Carbon Dioxide Level 27 mmol/L (21-32) Anion Gap 9 (6-14) Blood Urea Nitrogen 28 mg/dL (7-20) Creatinine 4.0 mg/dL (0.6-1.0) Estimated GFR (Cockcroft-Gault) 11.1 Glucose Level 212 mg/dL (70-99) Calcium Level 9.0 mg/dL (8.5-10.1) Phosphorus Level 4.4 mg/dL (2.6-4.7) Magnesium Level 2.2 mg/dL (1.8-2.4) Albumin 2.1 g/dL (3.4-5.0) Laboratory Tests Test 07/26/17 10:57 07/26/17 12:15 07/26/17 13:58 07/26/17 14:46 Glucose (Fingerstick) 121 mg/dL (70-99) 32 mg/dL (70-99) 84 mg/dL (70-99) White Blood Count 8.6 x10^3/uL (4.0-11.0) Red Blood Count 3.51 x10^6/uL (3.50-5.40) Hemoglobin 10.8 g/dL (12.0-15.5) Hematocrit 33.4 % (36.0-47.0) Mean Corpuscular Volume 95 fL (79-100) Mean Corpuscular Hemoglobin 31 pg (25-35) Mean Corpuscular Hemoglobin Concent 33 g/dL (31-37) Red Cell Distribution Width 13.9 % (11.5-14.5) Platelet Count 260 x10^3/uL (140-400) Neutrophils (%) (Auto) 60 % (31-73) Lymphocytes (%) (Auto) 28 % (24-48) Monocytes (%) (Auto) 8 % (0-9) Eosinophils (%) (Auto) 3 % (0-3) Basophils (%) (Auto) 1 % (0-3) Neutrophils # (Auto) 5.2 x10^3uL (1.8-7.7) Lymphocytes # (Auto) 2.4 x10^3/uL (1.0-4.8) Monocytes # (Auto) 0.7 x10^3/uL (0.0-1.1) Eosinophils # (Auto) 0.3 x10^3/uL (0.0-0.7) Basophils # (Auto) 0.1 x10^3/uL (0.0-0.2) Sodium Level 136 mmol/L (136-145) Potassium Level 4.0 mmol/L (3.5-5.1) Chloride Level 99 mmol/L (98-107) Carbon Dioxide Level 31 mmol/L (21-32) Anion Gap 6 (6-14) Blood Urea Nitrogen 18 mg/dL (7-20) Creatinine 3.2 mg/dL (0.6-1.0) Estimated GFR (Cockcroft-Gault) 14.4 BUN/Creatinine Ratio 6 (6-20) Glucose Level 74 mg/dL (70-99) Calcium Level 9.0 mg/dL (8.5-10.1) Total Bilirubin 0.4 mg/dL (0.2-1.0) Aspartate Amino Transf (AST/SGOT) 20 U/L (15-37) Alanine Aminotransferase (ALT/SGPT) 15 U/L (14-59) Alkaline Phosphatase 290 U/L (46-116) Total Protein 6.2 g/dL (6.4-8.2) Albumin 2.3 g/dL (3.4-5.0) Albumin/Globulin Ratio 0.6 (1.0-1.7) Test 07/26/17 16:31 07/26/17 20:54 07/27/17 04:08 Glucose (Fingerstick) 142 mg/dL (70-99) 287 mg/dL (70-99) Hemoglobin 9.9 g/dL (12.0-15.5) Sodium Level 135 mmol/L (136-145) Potassium Level 4.1 mmol/L (3.5-5.1) Chloride Level 99 mmol/L (98-107) Carbon Dioxide Level 27 mmol/L (21-32) Anion Gap 9 (6-14) Blood Urea Nitrogen 28 mg/dL (7-20) Creatinine 4.0 mg/dL (0.6-1.0) Estimated GFR (Cockcroft-Gault) 11.1 Glucose Level 212 mg/dL (70-99) Calcium Level 9.0 mg/dL (8.5-10.1) Phosphorus Level 4.4 mg/dL (2.6-4.7) Magnesium Level 2.2 mg/dL (1.8-2.4) Albumin 2.1 g/dL (3.4-5.0) MAJO DRAKE MD Jul 27, 2017 10:55
[2017-07-27 11:00] VITALS: BP 112/58
[2017-07-27] MEDS: CYCLOBENZAPRINE 10 MG TABLET. PO SCH ×2 (13:28→20:30)
[2017-07-27] MEDS: HEPARIN PF for SUB-Q USE 5,000 UNIT/0.5 ML VIAL. SQ SCH ×2 (14:00→21:38)
[2017-07-27] MEDS ORDERED: PROPOFOL 20 ML IV ONE (14:13)
[2017-07-27] MEDS ORDERED: LIDOCAINE 2% PF Vial for OR 5 ML VIAL. ONE (14:13)
[2017-07-27] MEDS ORDERED: fentaNYL PF VIAL 100 MCG/2 ML VIAL ONE (15:58)
[2017-07-27] MEDS ORDERED: BUPIVAC MPF-EPI 0.5%-1:200000 10 ML VIAL. ONE (16:00)
[2017-07-27] MEDS ORDERED: ceFAZolin 2GM PREMIX 2 GM/50 ML BAG IV ONE (16:00)
[2017-07-27] MEDS ORDERED: BUPIVAC MPF-EPI 0.5%-1:200000 30 ML VIAL. INJ ONE (16:10)
--- NOTE | 2017-07-27 16:50 | PDOC ---
BRIEF OPERATIVE NOTE Date: Jul 27, 2017 Pre-Op Diagnosis painful subcutaneous nodules, right thigh Post-Op Diagnosis same Procedure Performed excisional biopsy of skin and subcutaneous tissue right lateral thigh Surgeon Dayron Anesthesia Type: MAC Blood Loss <5cc IV Fluid 50cc Specimens Obtained skin and subcutaneous tissue 3x2x0.5 cm Findings firm fatty tissue Complications none Operative Note Wk # [id number] TE IVEY MD Jul 27, 2017 16:50
--- NOTE | 2017-07-27 17:05 | OP ---
DATE OF SURGERY: 07/27/2017 PREOPERATIVE DIAGNOSIS: Painful subcutaneous nodules right thigh. POSTOPERATIVE DIAGNOSIS: Painful subcutaneous nodules right thigh. PROCEDURE: Excisional biopsy of skin and subcutaneous tissue, right thigh. SPECIMEN: 3 x 2 x 0.5 cm. ANESTHESIA: Local with sedation. ESTIMATED BLOOD LOSS: Less than 5 mL. IV FLUID: 50 mL. INDICATIONS: The patient is a 66-year-old end-stage renal patient on hemodialysis with subcutaneous nodules, which are painful and enlarging. She is brought for a biopsy of same. DESCRIPTION OF PROCEDURE: The patient is brought to the operating suite and with IV sedation on board, the right lateral thigh was prepped and draped in usual sterile fashion. With the patient's assistance in the preop holding area, we identified the area of tender nodules and this area was marked with a surgical marking pen. That area was infiltrated with local anesthetic. An ellipse of skin and a piece of subcutaneous tissue was removed en bloc. Hemostasis in the wound with cautery. When a correct sponge count had been obtained, the wound was closed with interrupted inverted 3-0 Vicryl in the subcutaneous tissue, a subcuticular 4-0 Monocryl and Steri-Strips for the skin closure. A sterile dressing applied. The patient taken to postop area in stable condition having tolerated the procedure well. TE IVEY MD DR: [email or web address]/isaac JOB#: [id number] / [id number]
[2017-07-27] MEDS: ASPIRIN 325 MG TABLET PO SCH (18:36)
[2017-07-27] MEDS: CHOLECALCIFEROL (VITAMIN D3) 1,000 UNIT TABLET PO SCH (18:36)
[2017-07-27] MEDS: FOLIC/VIT B COMP W-C (RENAL) TABLET. PO SCH (18:36)
[2017-07-27] MEDS: PANTOPRAZOLE 40 MG TABLET.DR. PO SCH (18:37)
[2017-07-27 19:00] VITALS: BP 113/53
[2017-07-27] MEDS: GABAPENTIN 300 MG CAPSULE. PO PRN (20:30)
[2017-07-27] MEDS: oxyCODONE IR 5 MG TABLET PO PRN (20:30)
[2017-07-27] MEDS: INSULIN DETEMIR 300 UNITS/3 ML INSULN.PEN. SQ SCH (20:38)
[2017-07-27] MEDS ORDERED: DARBEPOETIN ALFA 60 MCG/0.3 ML DISP.SYRIN. SQ SCH (21:00)
[2017-07-27 23:00] VITALS: BP 113/58
[2017-07-28] VITALS (7 sets, daily range): BP systolic 99–124; BP diastolic 52–62
[2017-07-28] MEDS: HEPARIN PF for SUB-Q USE 5,000 UNIT/0.5 ML VIAL. SQ SCH ×3 (01:32→20:25)
[2017-07-28 05:40] LABS: ALBUMIN 1.9 g/dL (3.4-5.0); CALCIUM 8.6 mg/dL (8.5-10.1); CREATININE 2.6 mg/dL (0.6-1.0); GFR 18.3; PHOSPHORUS 3.7 mg/dL (2.6-4.7); POTASSIUM 3.9 mmol/L (3.5-5.1)
[2017-07-28] MEDS: PANTOPRAZOLE 40 MG TABLET.DR. PO SCH (07:30)
[2017-07-28] MEDS: INSULIN ASPART 300 UNITS/3 ML INSULN.PEN SQ SCH ×5 (08:00→17:00)
[2017-07-28] MEDS: POLYETHYLENE GLYCOL 3350 17 GM PACKET. PO SCH ×2 (09:00→20:25)
[2017-07-28] MEDS: ASPIRIN 325 MG TABLET PO SCH (09:30)
[2017-07-28] MEDS: CYCLOBENZAPRINE 10 MG TABLET. PO SCH ×2 (09:31→20:24)
[2017-07-28] MEDS: FOLIC/VIT B COMP W-C (RENAL) TABLET. PO SCH (09:31)
[2017-07-28] MEDS: CHOLECALCIFEROL (VITAMIN D3) 1,000 UNIT TABLET PO SCH (09:31)
[2017-07-28] MEDS: CARVEDILOL 3.125 MG TABLET. PO SCH ×2 (09:31→17:00)
[2017-07-28] MEDS: METHYL SALICYLATE/MENTHOL TOPICAL OINTMENT 29GM TUBE. TP SCH ×4 (09:35→20:26)
--- NOTE | 2017-07-28 10:36 | PDOC ---
SUBJECTIVE ROS ESRD Doign ok overall - STILL HURTING IN THIGHS CVS: no Orthopnea, no CP RESP: no SOB, no RYAN GI: no Nausea, no Vomiting : no Dysuria, no Urgency OBJECTIVE Vital Signs Vital Signs Date Time Temp Pulse Resp B/P (MAP) Pulse Ox O2 Delivery O2 Flow Rate FiO2 07/28/17 09:31 82 105/58 07/28/17 07:00 98.1 20 96 Room Air 98.1 07/27/17 19:00 2.0 I & 0 Intake and Output 07/28/17 07:00 Intake Total 275 ml Balance 275 ml Intake Oral 225 ml IV Total 50 ml # Voids 1 PHYSICAL EXAM Physical Exam GEN: Awake, Oriented x 3, In min distress - obese EYES: Vision Unchanged, Conjunctiva Normal EN: No EN Drainage, Mucous Membranes moist NECK: no JVD, no JVP, Supple, no Thyromegaly CVS: S1S2, soft Murmur, No Gallop, No Rub,ch brawny Edema RESP: no Rales, no Rhonchi,no Acc. Muscle Use GI: BS + ve, NO Bruit, Non Tender, Non Distended - obese : no CVA tenderness, no Suprapubic Tenderness DIAGNOSIS/ASSESSMENT Assessment & Plan ESRD: Current fluid and E-lyte status does not necessitate emergent need for dialysis. Will re-evaluate for dialysis in the am and continue on M, and Sat schedule. ANEMIA; Aranesp as ordered, Transfuse with next HD as needed HTN: Current BP meds as reviewed. See orders for changes. BONE & MINERAL: check phos Thigh Nodules - painful - subcut - cannot r/o calciphylaxis - appreciate GS help with Bx hypoAlbuminemia - suspect partially due to liver dz too Discussed Plan of Care with pt at bedside COMMENT/RELEVANT DATA Meds Current Medications Medications (Trade) Dose Ordered Sig/Aileen Start Time Stop Time Status Last Admin Dose Admin Acetaminophen (Tylenol) 500 mg 1X PRN PRN 07/25/17 08:15 07/26/17 08:14 DC Albumin Human 200 ml @ 200 mls/hr 1X PRN PRN 07/25/17 08:15 07/25/17 14:14 DC Aspirin (Bethanie Aspirin) 325 mg DAILYWBKFT 07/21/17 13:45 07/28/17 09:30 325 MG Aspirin (Children'S Aspirin) 81 mg DAILY 07/21/17 14:00 07/21/17 14:00 DC Bupivacaine HCl/ Epinephrine Bitart (Sensorcain-Mpf Epi 0.5%-[id number]) 30 ml STK-MED ONCE 07/27/17 16:10 07/27/17 16:39 DC 07/27/17 16:10 10 ML Carvedilol (Coreg) 3.125 mg BIDWMEALS 07/24/17 17:00 07/28/17 09:31 3.125 MG Cefazolin Sodium/ Dextrose (Ancef 2gm Premix) 2 gm STK-MED ONCE 07/27/17 16:00 07/28/17 08:51 DC Cyclobenzaprine HCl (Flexeril) 10 mg BID 07/22/17 21:00 07/28/17 09:31 10 MG Darbepoetin Marquez (Aranesp) 60 mcg WEEKLYHS 07/27/17 21:00 Dextrose (Dextrose 50%-Water Syringe) 12.5 gm PRN Q15MIN PRN 07/27/17 09:00 Diphenhydramine HCl (Benadryl) 25 mg 1X PRN PRN 07/27/17 09:30 07/28/17 09:29 DC Fentanyl Citrate (Fentanyl 2ml Vial) 100 mcg STK-MED ONCE 07/27/17 15:58 07/27/17 15:59 DC Gabapentin (Neurontin) 300 mg PRN TID PRN 07/21/17 14:00 07/27/17 20:30 300 MG Glimepiride (Amaryl) 4 mg DAILYWBKFT 07/22/17 08:00 07/26/17 17:18 DC 07/26/17 08:50 4 MG Heparin Sodium (Porcine) (Heparin Sq) 5,000 unit Q8HRS 07/22/17 15:00 07/23/17 06:07 5,000 UNIT Hydromorphone HCl (Dilaudid) 0.5 mg PRN Q10MIN PRN 07/27/17 08:15 07/28/17 08:14 DC Info (PHARMACY MONITORING -- do not chart) 1 each PRN DAILY PRN 07/27/17 09:30 UNV Insulin Aspart (NovoLOG) 0-9 UNITS TIDWMEALS 07/27/17 12:00 Insulin Detemir (Levemir) 28 units QHS 07/21/17 21:00 07/27/17 20:38 28 UNITS Lidocaine (Lidoderm) 1 patch DAILY 07/25/17 17:30 07/26/17 14:47 1 PATCH Lidocaine HCl (Lidocaine Pf 2% Vial) 5 ml STK-MED ONCE 07/27/17 14:13 07/27/17 14:14 DC Lidocaine HCl (Xylocaine-Mpf 1% Vial) 0.5 ml 1X STAT 07/27/17 09:52 07/27/17 09:55 DC Magnesium Sulfate/ Dextrose 50 ml @ 25 mls/hr PRN DAILY PRN 07/26/17 13:45 Morphine Sulfate 1 mg PRN Q10MIN PRN 07/27/17 08:15 07/28/17 08:14 DC Multi-Ingredient Ointment (Analgesic [place]) 1 katia QID 07/24/17 13:00 07/28/17 09:35 1 KATIA Ondansetron HCl (Zofran) 4 mg PRN Q6HRS PRN 07/27/17 08:15 07/28/17 08:14 DC Oxycodone HCl (Roxicodone) 5 mg PRN Q6HRS PRN 07/21/17 17:00 07/27/17 20:30 5 MG Pantoprazole Sodium (Protonix) 40 mg DAILYAC 07/22/17 07:30 07/28/17 07:30 40 MG Polyethylene Glycol (miraLAX PACKET) 17 gm BID 07/21/17 21:00 07/22/17 20:31 17 GM Prochlorperazine Edisylate (Compazine) 5 mg PACU PRN PRN 07/27/17 08:15 07/28/17 08:14 DC Propofol 20 ml @ As Directed STK-MED ONCE 07/27/17 14:13 07/27/17 14:14 DC Ringer's Solution 1,000 ml @ 30 mls/hr Q24H 07/27/17 08:12 07/27/17 20:11 DC Sodium Chloride 1,000 ml @ 400 mls/hr Q2H30M PRN 07/27/17 09:24 07/27/17 21:23 DC Vitamin B Complex/ Vitamin C (Michelle-Edwin) 1 tab DAILY 07/22/17 09:00 07/28/17 09:31 1 TAB Vitamin D (Vitamin D3) 1,000 unit DAILY 07/22/17 15:00 07/28/17 09:31 1,000 UNIT Lab Laboratory Tests Test 07/27/17 11:41 07/27/17 15:27 07/27/17 20:34 07/28/17 04:10 Glucose (Fingerstick) 111 mg/dL (70-99) 71 mg/dL (70-99) 238 mg/dL (70-99) Sodium Level 138 mmol/L (136-145) Potassium Level 3.9 mmol/L (3.5-5.1) Chloride Level 101 mmol/L (98-107) Carbon Dioxide Level 31 mmol/L (21-32) Anion Gap 6 (6-14) Blood Urea Nitrogen 15 mg/dL (7-20) Creatinine 2.6 mg/dL (0.6-1.0) Estimated GFR (Cockcroft-Gault) 18.3 Glucose Level 128 mg/dL (70-99) Calcium Level 8.6 mg/dL (8.5-10.1) Phosphorus Level 3.7 mg/dL (2.6-4.7) Magnesium Level 2.0 mg/dL (1.8-2.4) Albumin 1.9 g/dL (3.4-5.0) Test 07/28/17 07:10 Glucose (Fingerstick) 146 mg/dL (70-99) MAJO DRAKE MD Jul 28, 2017 10:36
--- NOTE | 2017-07-28 11:25 | PDOC ---
GINNY WONG [employer] 07/28/17 1125: SURGICAL PROGRESS NOTE Subjective leg pain Vital Signs Vital Signs Date Time Temp Pulse Resp B/P (MAP) Pulse Ox O2 Delivery O2 Flow Rate FiO2 07/28/17 11:00 97.7 91 20 124/56 (78) 96 Room Air 97.7 07/27/17 19:00 2.0 I&O Intake and Output 07/28/17 07:00 Intake Total 275 ml Balance 275 ml Intake Oral 225 ml IV Total 50 ml # Voids 1 General: Alert, Oriented X3, Cooperative, No acute distress Skin: Other (biopsy site c/d/i, no erythema) Labs Laboratory Tests Test 07/26/17 12:15 07/26/17 13:58 07/26/17 14:46 07/26/17 16:31 White Blood Count 8.6 x10^3/uL (4.0-11.0) Red Blood Count 3.51 x10^6/uL (3.50-5.40) Hemoglobin 10.8 g/dL (12.0-15.5) Hematocrit 33.4 % (36.0-47.0) Mean Corpuscular Volume 95 fL (79-100) Mean Corpuscular Hemoglobin 31 pg (25-35) Mean Corpuscular Hemoglobin Concent 33 g/dL (31-37) Red Cell Distribution Width 13.9 % (11.5-14.5) Platelet Count 260 x10^3/uL (140-400) Neutrophils (%) (Auto) 60 % (31-73) Lymphocytes (%) (Auto) 28 % (24-48) Monocytes (%) (Auto) 8 % (0-9) Eosinophils (%) (Auto) 3 % (0-3) Basophils (%) (Auto) 1 % (0-3) Neutrophils # (Auto) 5.2 x10^3uL (1.8-7.7) Lymphocytes # (Auto) 2.4 x10^3/uL (1.0-4.8) Monocytes # (Auto) 0.7 x10^3/uL (0.0-1.1) Eosinophils # (Auto) 0.3 x10^3/uL (0.0-0.7) Basophils # (Auto) 0.1 x10^3/uL (0.0-0.2) Sodium Level 136 mmol/L (136-145) Potassium Level 4.0 mmol/L (3.5-5.1) Chloride Level 99 mmol/L (98-107) Carbon Dioxide Level 31 mmol/L (21-32) Anion Gap 6 (6-14) Blood Urea Nitrogen 18 mg/dL (7-20) Creatinine 3.2 mg/dL (0.6-1.0) Estimated GFR (Cockcroft-Gault) 14.4 BUN/Creatinine Ratio 6 (6-20) Glucose Level 74 mg/dL (70-99) Calcium Level 9.0 mg/dL (8.5-10.1) Total Bilirubin 0.4 mg/dL (0.2-1.0) Aspartate Amino Transf (AST/SGOT) 20 U/L (15-37) Alanine Aminotransferase (ALT/SGPT) 15 U/L (14-59) Alkaline Phosphatase 290 U/L (46-116) Total Protein 6.2 g/dL (6.4-8.2) Albumin 2.3 g/dL (3.4-5.0) Albumin/Globulin Ratio 0.6 (1.0-1.7) Glucose (Fingerstick) 32 mg/dL (70-99) 84 mg/dL (70-99) 142 mg/dL (70-99) Test 07/26/17 19:00 07/26/17 20:54 07/27/17 04:08 07/27/17 11:41 Clostridium difficile Toxin (PCR) Negative (Negative) Glucose (Fingerstick) 287 mg/dL (70-99) 111 mg/dL (70-99) Hemoglobin 9.9 g/dL (12.0-15.5) Sodium Level 135 mmol/L (136-145) Potassium Level 4.1 mmol/L (3.5-5.1) Chloride Level 99 mmol/L (98-107) Carbon Dioxide Level 27 mmol/L (21-32) Anion Gap 9 (6-14) Blood Urea Nitrogen 28 mg/dL (7-20) Creatinine 4.0 mg/dL (0.6-1.0) Estimated GFR (Cockcroft-Gault) 11.1 Glucose Level 212 mg/dL (70-99) Calcium Level 9.0 mg/dL (8.5-10.1) Phosphorus Level 4.4 mg/dL (2.6-4.7) Magnesium Level 2.2 mg/dL (1.8-2.4) Albumin 2.1 g/dL (3.4-5.0) Test 07/27/17 15:27 07/27/17 20:34 07/28/17 04:10 07/28/17 07:10 Glucose (Fingerstick) 71 mg/dL (70-99) 238 mg/dL (70-99) 146 mg/dL (70-99) Sodium Level 138 mmol/L (136-145) Potassium Level 3.9 mmol/L (3.5-5.1) Chloride Level 101 mmol/L (98-107) Carbon Dioxide Level 31 mmol/L (21-32) Anion Gap 6 (6-14) Blood Urea Nitrogen 15 mg/dL (7-20) Creatinine 2.6 mg/dL (0.6-1.0) Estimated GFR (Cockcroft-Gault) 18.3 Glucose Level 128 mg/dL (70-99) Calcium Level 8.6 mg/dL (8.5-10.1) Phosphorus Level 3.7 mg/dL (2.6-4.7) Magnesium Level 2.0 mg/dL (1.8-2.4) Albumin 1.9 g/dL (3.4-5.0) Test 07/28/17 11:03 Glucose (Fingerstick) 164 mg/dL (70-99) Laboratory Tests Test 07/27/17 11:41 07/27/17 15:27 07/27/17 20:34 07/28/17 04:10 Glucose (Fingerstick) 111 mg/dL (70-99) 71 mg/dL (70-99) 238 mg/dL (70-99) Sodium Level 138 mmol/L (136-145) Potassium Level 3.9 mmol/L (3.5-5.1) Chloride Level 101 mmol/L (98-107) Carbon Dioxide Level 31 mmol/L (21-32) Anion Gap 6 (6-14) Blood Urea Nitrogen 15 mg/dL (7-20) Creatinine 2.6 mg/dL (0.6-1.0) Estimated GFR (Cockcroft-Gault) 18.3 Glucose Level 128 mg/dL (70-99) Calcium Level 8.6 mg/dL (8.5-10.1) Phosphorus Level 3.7 mg/dL (2.6-4.7) Magnesium Level 2.0 mg/dL (1.8-2.4) Albumin 1.9 g/dL (3.4-5.0) Test 07/28/17 07:10 07/28/17 11:03 Glucose (Fingerstick) 146 mg/dL (70-99) 164 mg/dL (70-99) Assessment/Plan s/p biopsy, wound clean and dry will sign off, please call with questions Problems: TE IVEY MD 07/28/17 1659: SURGICAL PROGRESS NOTE Assessment/Plan agree with above Thank you Problems: GINNY WONG APRN Jul 28, 2017 11:25 TE IVEY MD Jul 28, 2017 16:59
--- NOTE | 2017-07-28 12:08 | PDOC ---
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 Malaise, cough: CXR clear. suspect viral URI. supportive care 2. ESRD: on HD //, fistula now functioning 3. CHF: chronic, mod diastolic, (EF 60-65%) 4. Afib: rate controlled; 5. OAC: recommended, but pt opposed to coumadin, could not afford anti- thrombin inhibitos in past, but now insured. TBD in cardiology clinic 6. HTN: well controlled on BB only, borderline low. decrease coreg 7. DM: borderline control with occas low BG. cont insulin regimen, ISS 8. Chronic lymphedema/venous insufficiency: leg elevation, 9. MATTHEW: 10. Morbid obesity BMI 35 11. VitD deficiency: replete 12. PCM: hypoalbuminemia confounded by ESRD, chronic dz. dietary teaching 13. Chronic pain: leg, shoulder (hx R large rotator cuff tear). Jessy no working. trial lidocaine patch, norco PRN. obtain flat films to r/o fx 14. Dispo: OT/PT rec for SNF, but pt declines History of Present Illness History of Present Illness s.p skin biopsy to r.o calciphylaxis in this hD pt (done thursday) and site looks clean NOw doing a decent BM Agreeable to SNU this time pT recs SNu or HH PLAN: consult for SNU HD MWF Shayan miranda Vitals Vitals Vital Signs Date Time Temp Pulse Resp B/P (MAP) Pulse Ox O2 Delivery O2 Flow Rate FiO2 07/28/17 11:00 97.7 91 20 124/56 (78) 96 Room Air 97.7 07/27/17 19:00 2.0 Physical Exam General: Alert, Oriented X3, Cooperative, No acute distress Heart: Regular rate, Normal S1, Normal S2, No murmurs Lungs: Clear Abdomen: Soft, No tenderness Extremities: Other (upper left thigh, palpable fullness/nodule, no skin breakdown, upper right thigh small palpable fullness) Skin: Other (biopsy site c/d/i, no erythema) Labs LABS Laboratory Tests Test 07/27/17 15:27 07/27/17 20:34 07/28/17 04:10 07/28/17 07:10 Glucose (Fingerstick) 71 mg/dL (70-99) 238 mg/dL (70-99) 146 mg/dL (70-99) Sodium Level 138 mmol/L (136-145) Potassium Level 3.9 mmol/L (3.5-5.1) Chloride Level 101 mmol/L (98-107) Carbon Dioxide Level 31 mmol/L (21-32) Anion Gap 6 (6-14) Blood Urea Nitrogen 15 mg/dL (7-20) Creatinine 2.6 mg/dL (0.6-1.0) Estimated GFR (Cockcroft-Gault) 18.3 Glucose Level 128 mg/dL (70-99) Calcium Level 8.6 mg/dL (8.5-10.1) Phosphorus Level 3.7 mg/dL (2.6-4.7) Magnesium Level 2.0 mg/dL (1.8-2.4) Albumin 1.9 g/dL (3.4-5.0) Test 07/28/17 11:03 Glucose (Fingerstick) 164 mg/dL (70-99) Review of Systems Review of Systems no cp, soa, abd pain or emesis Comment Review of Relevant I have reviewed the following items kai (where applicable) has been applied. Labs Laboratory Tests Test 07/26/17 12:15 07/26/17 13:58 07/26/17 14:46 07/26/17 16:31 White Blood Count 8.6 x10^3/uL (4.0-11.0) Red Blood Count 3.51 x10^6/uL (3.50-5.40) Hemoglobin 10.8 g/dL (12.0-15.5) Hematocrit 33.4 % (36.0-47.0) Mean Corpuscular Volume 95 fL (79-100) Mean Corpuscular Hemoglobin 31 pg (25-35) Mean Corpuscular Hemoglobin Concent 33 g/dL (31-37) Red Cell Distribution Width 13.9 % (11.5-14.5) Platelet Count 260 x10^3/uL (140-400) Neutrophils (%) (Auto) 60 % (31-73) Lymphocytes (%) (Auto) 28 % (24-48) Monocytes (%) (Auto) 8 % (0-9) Eosinophils (%) (Auto) 3 % (0-3) Basophils (%) (Auto) 1 % (0-3) Neutrophils # (Auto) 5.2 x10^3uL (1.8-7.7) Lymphocytes # (Auto) 2.4 x10^3/uL (1.0-4.8) Monocytes # (Auto) 0.7 x10^3/uL (0.0-1.1) Eosinophils # (Auto) 0.3 x10^3/uL (0.0-0.7) Basophils # (Auto) 0.1 x10^3/uL (0.0-0.2) Sodium Level 136 mmol/L (136-145) Potassium Level 4.0 mmol/L (3.5-5.1) Chloride Level 99 mmol/L (98-107) Carbon Dioxide Level 31 mmol/L (21-32) Anion Gap 6 (6-14) Blood Urea Nitrogen 18 mg/dL (7-20) Creatinine 3.2 mg/dL (0.6-1.0) Estimated GFR (Cockcroft-Gault) 14.4 BUN/Creatinine Ratio 6 (6-20) Glucose Level 74 mg/dL (70-99) Calcium Level 9.0 mg/dL (8.5-10.1) Total Bilirubin 0.4 mg/dL (0.2-1.0) Aspartate Amino Transf (AST/SGOT) 20 U/L (15-37) Alanine Aminotransferase (ALT/SGPT) 15 U/L (14-59) Alkaline Phosphatase 290 U/L (46-116) Total Protein 6.2 g/dL (6.4-8.2) Albumin 2.3 g/dL (3.4-5.0) Albumin/Globulin Ratio 0.6 (1.0-1.7) Glucose (Fingerstick) 32 mg/dL (70-99) 84 mg/dL (70-99) 142 mg/dL (70-99) Test 07/26/17 19:00 07/26/17 20:54 07/27/17 04:08 07/27/17 11:41 Clostridium difficile Toxin (PCR) Negative (Negative) Glucose (Fingerstick) 287 mg/dL (70-99) 111 mg/dL (70-99) Hemoglobin 9.9 g/dL (12.0-15.5) Sodium Level 135 mmol/L (136-145) Potassium Level 4.1 mmol/L (3.5-5.1) Chloride Level 99 mmol/L (98-107) Carbon Dioxide Level 27 mmol/L (21-32) Anion Gap 9 (6-14) Blood Urea Nitrogen 28 mg/dL (7-20) Creatinine 4.0 mg/dL (0.6-1.0) Estimated GFR (Cockcroft-Gault) 11.1 Glucose Level 212 mg/dL (70-99) Calcium Level 9.0 mg/dL (8.5-10.1) Phosphorus Level 4.4 mg/dL (2.6-4.7) Magnesium Level 2.2 mg/dL (1.8-2.4) Albumin 2.1 g/dL (3.4-5.0) Test 07/27/17 15:27 07/27/17 20:34 07/28/17 04:10 07/28/17 07:10 Glucose (Fingerstick) 71 mg/dL (70-99) 238 mg/dL (70-99) 146 mg/dL (70-99) Sodium Level 138 mmol/L (136-145) Potassium Level 3.9 mmol/L (3.5-5.1) Chloride Level 101 mmol/L (98-107) Carbon Dioxide Level 31 mmol/L (21-32) Anion Gap 6 (6-14) Blood Urea Nitrogen 15 mg/dL (7-20) Creatinine 2.6 mg/dL (0.6-1.0) Estimated GFR (Cockcroft-Gault) 18.3 Glucose Level 128 mg/dL (70-99) Calcium Level 8.6 mg/dL (8.5-10.1) Phosphorus Level 3.7 mg/dL (2.6-4.7) Magnesium Level 2.0 mg/dL (1.8-2.4) Albumin 1.9 g/dL (3.4-5.0) Test 07/28/17 11:03 Glucose (Fingerstick) 164 mg/dL (70-99) Laboratory Tests Test 07/27/17 15:27 07/27/17 20:34 07/28/17 04:10 07/28/17 07:10 Glucose (Fingerstick) 71 mg/dL (70-99) 238 mg/dL (70-99) 146 mg/dL (70-99) Sodium Level 138 mmol/L (136-145) Potassium Level 3.9 mmol/L (3.5-5.1) Chloride Level 101 mmol/L (98-107) Carbon Dioxide Level 31 mmol/L (21-32) Anion Gap 6 (6-14) Blood Urea Nitrogen 15 mg/dL (7-20) Creatinine 2.6 mg/dL (0.6-1.0) Estimated GFR (Cockcroft-Gault) 18.3 Glucose Level 128 mg/dL (70-99) Calcium Level 8.6 mg/dL (8.5-10.1) Phosphorus Level 3.7 mg/dL (2.6-4.7) Magnesium Level 2.0 mg/dL (1.8-2.4) Albumin 1.9 g/dL (3.4-5.0) Test 07/28/17 11:03 Glucose (Fingerstick) 164 mg/dL (70-99) Medications Current Medications Fentanyl Citrate (Fentanyl 2ml Vial) 25 mcg 1X ONCE IM ; Start 07/21/17 at 09: 30; Stop 07/21/17 at 09:31; Status DC Fentanyl Citrate (Fentanyl 2ml Vial) 25 mcg 1X ONCE IV Last administered on 10:00; Start 07/21/17 at 10:00; Stop 07/21/17 at 10:02; Status DC Insulin Aspart (NovoLOG) 0-9 UNITS TIDWMEALS SQ Last administered on 12:10; Start 07/21/17 at 12:00; Stop 07/21/17 at 14:40; Status DC Dextrose (Dextrose 50%-Water Syringe) 12.5 gm PRN Q15MIN PRN IV SEE COMMENTS; Start 07/21/17 at 12:00; Status Cancel Aspirin (Children'S Aspirin) 81 mg DAILY PO ; Start 07/21/17 at 14:00; Stop at 14:00; Status DC Carvedilol (Coreg) 6.25 mg BIDWMEALS PO Last administered on 07/23/17 16:51; Start 07/21/17 at 17:00; Stop 07/24/17 at 08:47; Status DC Aspirin (Bethanie Aspirin) 325 mg DAILYWBKFT PO Last administered on 07/28/17 09 :30; Start 07/21/17 at 13:45 Vitamin B Complex/ Vitamin C (Michelle-Edwin) 1 tab DAILY PO Last administered on 09:31; Start 07/22/17 at 09:00 Insulin Detemir (Levemir) 28 units QHS SQ Last administered on 07/27/17 20:38 ; Start 07/21/17 at 21:00 Polyethylene Glycol (miraLAX PACKET) 17 gm BID PO Last administered on 20:31; Start 07/21/17 at 21:00 Gabapentin (Neurontin) 300 mg PRN TID PRN PO NERVE PAIN Last administered on 20:30; Start 07/21/17 at 14:00 Glimepiride (Amaryl) 4 mg DAILYWBKFT PO Last administered on 07/26/17 08:50; Start 07/22/17 at 08:00; Stop 07/26/17 at 17:18; Status DC Insulin Aspart (NovoLOG) 30 units TIDAC SQ Last administered on 07/22/17 12: 29; Start 07/21/17 at 16:30; Stop 07/22/17 at 14:27; Status DC Pantoprazole Sodium (Protonix) 40 mg DAILYAC PO Last administered on 07:30; Start 07/22/17 at 07:30 Insulin Aspart (NovoLOG) 0-5 UNITS TIDWMEALS SQ Last administered on 08:16; Start 07/21/17 at 17:00; Stop 07/27/17 at 08:47; Status DC Dextrose (Dextrose 50%-Water Syringe) 12.5 gm PRN Q15MIN PRN IV SEE COMMENTS; Start 07/21/17 at 13:45; Stop 07/27/17 at 14:59; Status DC Lidocaine HCl (Xylocaine-Mpf 1% Vial) 2 ml 1X ONCE INJ ; Start 07/21/17 at 16: 00; Stop 07/21/17 at 16:01; Status DC Oxycodone HCl (Roxicodone) 5 mg PRN Q6HRS PRN PO PAIN Last administered on 20:30; Start 07/21/17 at 17:00 Sodium Chloride 1,000 ml @ 1,000 mls/hr Q1H PRN IV hypotension; Start at 18:58; Stop 07/22/17 at 00:57; Status DC Albumin Human 200 ml @ 200 mls/hr 1X PRN PRN IV Hypotension; Start 07/21/17 at 19:00; Stop 07/22/17 at 00:59; Status DC Info (PHARMACY MONITORING -- do not chart) 1 each PRN DAILY PRN MC SEE COMMENTS ; Start 07/21/17 at 19:00; Stop 07/24/17 at 08:52; Status DC Insulin Aspart (NovoLOG) 20 units TIDAC SQ ; Start 07/22/17 at 15:00; Stop at 11:56; Status DC Vitamin D (Vitamin D3) 1,000 unit DAILY PO Last administered on 07/28/17 09: 31; Start 07/22/17 at 15:00 Heparin Sodium (Porcine) (Heparin Sq) 5,000 unit Q8HRS SQ Last administered on 07/23/17 06:07; Start 07/22/17 at 15:00 Cyclobenzaprine HCl (Flexeril) 10 mg BID PO Last administered on 07/28/17 09: 31; Start 07/22/17 at 21:00 Insulin Aspart (NovoLOG) 10 units TIDAC SQ Last administered on 07/28/17 09: 45; Start 07/23/17 at 16:30 Sodium Chloride 1,000 ml @ 1,000 mls/hr Q1H PRN IV hypotension; Start at 14:33; Stop 07/23/17 at 20:32; Status DC Info (PHARMACY MONITORING -- do not chart) 1 each PRN DAILY PRN MC SEE COMMENTS ; Start 07/23/17 at 14:45; Stop 07/25/17 at 12:25; Status DC Carvedilol (Coreg) 3.125 mg BIDWMEALS PO Last administered on 07/28/17 09:31 ; Start 07/24/17 at 17:00 Multi-Ingredient Ointment (Analgesic [place]) 1 katia QID TP Last administered on 09:35; Start 07/24/17 at 13:00 Sodium Chloride 1,000 ml @ 1,000 mls/hr Q1H PRN IV hypotension; Start at 08:05; Stop 07/25/17 at 14:04; Status DC Albumin Human 200 ml @ 200 mls/hr 1X PRN PRN IV Hypotension; Start 07/25/17 at 08:15; Stop 07/25/17 at 14:14; Status DC Acetaminophen (Tylenol) 500 mg 1X PRN PRN PO MILD PAIN / TEMP; Start 07/25/17 at 08:15; Stop 07/26/17 at 08:14; Status DC Diphenhydramine HCl (Benadryl) 25 mg 1X PRN PRN IV ITCHING; Start 07/25/17 at 08:15; Stop 07/26/17 at 08:14; Status DC Diphenhydramine HCl (Benadryl) 25 mg 1X PRN PRN IV ITCHING; Start 07/25/17 at 08:15; Stop 07/26/17 at 08:14; Status DC Info (PHARMACY MONITORING -- do not chart) 1 each PRN DAILY PRN MC SEE COMMENTS ; Start 07/25/17 at 08:15 Info (PHARMACY MONITORING -- do not chart) 1 each PRN DAILY PRN MC SEE COMMENTS ; Start 07/25/17 at 08:15; Stop 07/25/17 at 08:15; Status DC Lidocaine HCl (Xylocaine-Mpf 1% Vial) 2 ml 1X ONCE INJ ; Start 07/25/17 at 08: 15; Stop 07/25/17 at 08:19; Status DC Lidocaine (Lidoderm) 1 patch DAILY TD Last administered on 07/26/17t 14:47; Start 07/25/17 at 17:30 Magnesium Sulfate/ Dextrose 50 ml @ 25 mls/hr PRN DAILY PRN IV for Mag < 1.7 on am labs; Start 07/26/17 at 13:45 Ondansetron HCl (Zofran) 4 mg PRN Q6HRS PRN IV NAUSEA/VOMITING; Start at 08:15; Stop 07/28/17 at 08:14; Status DC Fentanyl Citrate (Fentanyl 2ml Vial) 25 mcg PRN Q5MIN PRN IV MILD PAIN Last administered on 07/27/17t 13:28; Start 07/27/17 at 08:15; Stop 07/28/17 at 08 :14; Status DC Fentanyl Citrate (Fentanyl 2ml Vial) 50 mcg PRN Q5MIN PRN IV MODERATE PAIN; Start 07/27/17 at 08:15; Stop 07/28/17 at 08:14; Status DC Morphine Sulfate 1 mg PRN Q10MIN PRN IV SEVERE PAIN; Start 07/27/17 at 08:15; Stop 07/28/17 at 08:14; Status DC Ringer's Solution 1,000 ml @ 30 mls/hr Q24H IV ; Start 07/27/17 at 08:12; Stop 07/27/17 at 20:11; Status DC Lidocaine HCl (Xylocaine-Mpf 1% Vial) 2 ml 1X PRN PRN ID IV START Last administered on 07/27/17t 09:58; Start 07/27/17 at 08:15; Stop 07/28/17 at 08 :14; Status DC Hydromorphone HCl (Dilaudid) 0.5 mg PRN Q10MIN PRN IV SEV PAIN, Second choice; Start 07/27/17 at 08:15; Stop 07/28/17 at 08:14; Status DC Prochlorperazine Edisylate (Compazine) 5 mg PACU PRN PRN IV NAUSEA, MRX1; Start 07/27/17 at 08:15; Stop 07/28/17 at 08:14; Status DC Insulin Aspart (NovoLOG) 0-9 UNITS TIDWMEALS SQ ; Start 07/27/17 at 12:00 Dextrose (Dextrose 50%-Water Syringe) 12.5 gm PRN Q15MIN PRN IV SEE COMMENTS; Start 07/27/17 at 09:00 Sodium Chloride 1,000 ml @ 1,000 mls/hr Q1H PRN IV hypotension; Start at 09:24; Stop 07/27/17 at 15:23; Status DC Diphenhydramine HCl (Benadryl) 25 mg 1X PRN PRN IV ITCHING; Start 07/27/17 at 09:30; Stop 07/28/17 at 09:29; Status DC Diphenhydramine HCl (Benadryl) 25 mg 1X PRN PRN IV ITCHING; Start 07/27/17 at 09:30; Stop 07/28/17 at 09:29; Status DC Sodium Chloride 1,000 ml @ 400 mls/hr Q2H30M PRN IV PATENCY; Start 07/27/17 at 09:24; Stop 07/27/17 at 21:23; Status DC Info (PHARMACY MONITORING -- do not chart) 1 each PRN DAILY PRN MC SEE COMMENTS ; Start 07/27/17 at 09:30; Status UNV Lidocaine HCl (Xylocaine-Mpf 1% Vial) 0.5 ml 1X STAT ID ; Start 07/27/17 at 09 :52; Stop 07/27/17 at 09:55; Status DC Darbepoetin Marquez (Aranesp) 60 mcg WEEKLYHS SQ ; Start 07/27/17 at 21:00 Propofol 20 ml @ As Directed STK-MED ONCE IV ; Start 07/27/17 at 14:13; Stop 07/27/17 at 14:14; Status DC Lidocaine HCl (Lidocaine Pf 2% Vial) 5 ml STK-MED ONCE .ROUTE ; Start 07/27/17 at 14:13; Stop 07/27/17 at 14:14; Status DC Cefazolin Sodium/ Dextrose 50 ml @ 100 mls/hr 1X ONCE IV ; Start 07/27/17 at 15:45; Stop 07/27/17 at 16:14; Status DC Fentanyl Citrate (Fentanyl 2ml Vial) 100 mcg STK-MED ONCE .ROUTE ; Start at 15:58; Stop 07/27/17 at 15:59; Status DC Bupivacaine HCl/ Epinephrine Bitart (Sensorcain-Mpf Epi 0.5%-1:003668) 10 ml STK -MED ONCE .ROUTE ; Start 07/27/17 at 16:00; Stop 07/27/17 at 16:01; Status DC Bupivacaine HCl/ Epinephrine Bitart (Sensorcain-Mpf Epi 0.5%-1:937048) 30 ml STK -MED ONCE INJ Last administered on 07/27/17t 16:10; Start 07/27/17 at 16:10; Stop 07/27/17 at 16:39; Status DC Cefazolin Sodium/ Dextrose (Ancef 2gm Premix) 2 gm STK-MED ONCE IV ; Start at 16:00; Stop 07/28/17 at 08:51; Status DC Active Scripts Active Miralax (Polyethylene Glycol 3350) 119 Gm Powder 17 Gm PO BID hold for loose BM Levemir Flextouch (Insulin Detemir) 100 Unit/1 Ml Insuln.pen 28 Units SQ QHS Carvedilol 6.25 Mg Tablet 6.25 Mg PO BIDWMEALS Reported Humalog (Insulin Lispro) 100 Unit/1 Ml Cartridge 30 Unit SQ TIDAC Aspirin 81 Mg Tab.chew 1 Tab PO DAILY Glimepiride 4 Mg Tablet 1 Tab PO DAILY Gabapentin 300 Mg Capsule 300 Mg PO PRN TID PRN Omeprazole 20 Mg Capsule. 1 Cap PO DAILY Michelle-Edwin Tablet (Folic Acid/Vitamin B Comp W-C) 0.8 Mg Tablet 0.8 Mg PO DAILY Cyclobenzaprine Hcl 10 Mg Tablet 1 Tab PO BID Vitals/I & O Vital Sign - Last 24 Hours 07/27/17 07/27/17 07/27/17 07/27/17 13:28 15:00 16:26 16:26 Temp 98.0 97.7 98.0 97.7 Pulse 82 82 Resp 16 18 20 B/P (MAP) 138/63 120/54 Pulse Ox 97 94 100 O2 Delivery Room Air Room Air Nasal Cannula Nasal Cannula O2 Flow Rate 2 2 07/27/17 07/27/17 07/27/17 07/27/17 16:41 16:56 17:11 17:24 Temp 98.0 98.0 Pulse 84 82 84 84 Resp 20 20 20 20 B/P (MAP) 121/54 124/50 130/46 127/54 Pulse Ox 100 100 94 97 O2 Delivery Nasal Cannula Nasal Cannula Room Air Room Air O2 Flow Rate 2 2 07/27/17 07/27/17 07/27/17 07/27/17 18:37 19:00 19:00 20:00 Temp 97.5 97.5 Pulse 84 99 Resp 20 B/P (MAP) 127/54 113/53 (73) Pulse Ox 97 O2 Delivery Room Air Room Air O2 Flow Rate 2.0 07/27/17 07/27/17 07/27/17 07/28/17 20:30 21:37 23:00 03:00 Temp 97.8 98.0 97.8 98.0 Pulse 84 79 Resp 20 20 20 20 B/P (MAP) 113/58 (76) 114/62 (79) Pulse Ox 92 93 O2 Delivery Room Air Room Air Room Air Room Air 07/28/17 07/28/17 07/28/17 07/28/17 07:00 09:31 10:47 11:00 Temp 98.1 97.7 97.7 98.1 97.7 97.7 Pulse 82 82 91 91 Resp 20 18 20 B/P (MAP) 105/58 (74) 105/58 124/56 (78) 124/56 (78) Pulse Ox 96 96 O2 Delivery Room Air Room Air Intake and Output 07/27/17 07/27/17 07/28/17 15:00 23:00 07:00 Intake Total 75 ml 200 ml Balance 75 ml 200 ml DHRUV LACEY MD Jul 28, 2017 12:08
[2017-07-28] MEDS: LIDOCAINE (700MG/PATCH) PATCH. TD SCH (12:11)
[2017-07-28] MEDS ORDERED: INSULIN DETEMIR 300 UNITS/3 ML INSULN.PEN. SQ SCH (21:00)
[2017-07-29 03:00] VITALS: BP 98/49
[2017-07-29 05:14] LABS: ALBUMIN 2.2 g/dL (3.4-5.0); CALCIUM 8.7 mg/dL (8.5-10.1); CREATININE 3.9 mg/dL (0.6-1.0); GFR 11.5; MAGNESIUM 2.1 mg/dL (1.8-2.4); PHOSPHORUS 5.2 mg/dL (2.6-4.7); POTASSIUM 4.5 mmol/L (3.5-5.1)
[2017-07-29] MEDS: HEPARIN PF for SUB-Q USE 5,000 UNIT/0.5 ML VIAL. SQ SCH ×2 (05:17→14:42)
[2017-07-29 07:00] VITALS: BP 105/53
[2017-07-29] MEDS ORDERED: LIDOCAINE 1% PF 2 ML VIAL. ONE ×2 (07:45→08:00)
[2017-07-29] MEDS: CARVEDILOL 3.125 MG TABLET. PO SCH ×2 (08:00→13:14)
[2017-07-29] MEDS: INSULIN ASPART 300 UNITS/3 ML INSULN.PEN SQ SCH ×2 (08:00→12:00)
[2017-07-29] MEDS: METHYL SALICYLATE/MENTHOL TOPICAL OINTMENT 29GM TUBE. TP SCH ×2 (09:00→13:15)
[2017-07-29] MEDS ORDERED: INSU100V13 SQ (09:18)
--- NOTE | 2017-07-29 09:21 | PDOC3 ---
Discharge Summary Visit Information Date of Admission: Jul 21, 2017 Date of Discharge: Jul 29, 2017 Admitting Diagnosis Comment: 1. Malaise, cough: CXR clear. suspect viral URI. supportive care 2. ESRD: on HD /, fistula now functioning 3. CHF: chronic, mod diastolic, (EF 60-65%) 4. Afib: rate controlled; 5. OAC: recommended, but pt opposed to coumadin, could not afford anti- thrombin inhibitos in past, but now insured. TBD in cardiology clinic 6. HTN: well controlled on BB only, borderline low. decrease coreg 7. DM: borderline control with occas low BG. cont insulin regimen, ISS 8. Chronic lymphedema/venous insufficiency: leg elevation, 9. MATTHEW: 10. Morbid obesity BMI 35 11. VitD deficiency: replete 12. PCM: hypoalbuminemia confounded by ESRD, chronic dz. dietary teaching 13. Chronic pain: leg, shoulder (hx R large rotator cuff tear). Jessy no working. trial lidocaine patch, norco PRN. obtain flat films to r/o fx 14. Dispo: OT/PT rec for SNF, but pt declines Brief Hospital Course Allergies Allergies Coded Allergies Type Severity Reaction Last Updated Verified No Known Drug Allergies 05/25/17 No Vital Signs Vital Signs Date Time Temp Pulse Resp B/P (MAP) Pulse Ox O2 Delivery O2 Flow Rate FiO2 07/29/17 07:00 98.2 87 20 105/53 (70) 96 Room Air 98.2 07/28/17 08:00 2.0 Lab Results Laboratory Tests Test 07/27/17 11:41 07/27/17 15:27 07/27/17 20:34 07/28/17 04:10 Glucose (Fingerstick) 111 mg/dL (70-99) 71 mg/dL (70-99) 238 mg/dL (70-99) Sodium Level 138 mmol/L (136-145) Potassium Level 3.9 mmol/L (3.5-5.1) Chloride Level 101 mmol/L (98-107) Carbon Dioxide Level 31 mmol/L (21-32) Anion Gap 6 (6-14) Blood Urea Nitrogen 15 mg/dL (7-20) Creatinine 2.6 mg/dL (0.6-1.0) Estimated GFR (Cockcroft-Gault) 18.3 Glucose Level 128 mg/dL (70-99) Calcium Level 8.6 mg/dL (8.5-10.1) Phosphorus Level 3.7 mg/dL (2.6-4.7) Magnesium Level 2.0 mg/dL (1.8-2.4) Albumin 1.9 g/dL (3.4-5.0) Test 07/28/17 07:10 07/28/17 11:03 07/28/17 14:22 07/28/17 14:24 Glucose (Fingerstick) 146 mg/dL (70-99) 164 mg/dL (70-99) 22 mg/dL (70-99) 23 mg/dL (70-99) Test 07/28/17 14:39 07/28/17 14:52 07/28/17 14:54 07/28/17 15:02 Glucose (Fingerstick) 23 mg/dL (70-99) 20 mg/dL (70-99) 23 mg/dL (70-99) 32 mg/dL (70-99) Test 07/28/17 15:11 07/28/17 15:27 07/28/17 16:14 07/28/17 16:53 Glucose (Fingerstick) 40 mg/dL (70-99) 60 mg/dL (70-99) 172 mg/dL (70-99) 138 mg/dL (70-99) Test 07/28/17 21:01 07/29/17 04:10 07/29/17 07:31 Glucose (Fingerstick) 250 mg/dL (70-99) 201 mg/dL (70-99) Sodium Level 133 mmol/L (136-145) Potassium Level 4.5 mmol/L (3.5-5.1) Chloride Level 97 mmol/L (98-107) Carbon Dioxide Level 30 mmol/L (21-32) Anion Gap 6 (6-14) Blood Urea Nitrogen 24 mg/dL (7-20) Creatinine 3.9 mg/dL (0.6-1.0) Estimated GFR (Cockcroft-Gault) 11.5 Glucose Level 187 mg/dL (70-99) Calcium Level 8.7 mg/dL (8.5-10.1) Phosphorus Level 5.2 mg/dL (2.6-4.7) Magnesium Level 2.1 mg/dL (1.8-2.4) Albumin 2.2 g/dL (3.4-5.0) Laboratory Tests Test 07/28/17 11:03 07/28/17 14:22 07/28/17 14:24 07/28/17 14:39 Glucose (Fingerstick) 164 mg/dL (70-99) 22 mg/dL (70-99) 23 mg/dL (70-99) 23 mg/dL (70-99) Test 07/28/17 14:52 07/28/17 14:54 07/28/17 15:02 07/28/17 15:11 Glucose (Fingerstick) 20 mg/dL (70-99) 23 mg/dL (70-99) 32 mg/dL (70-99) 40 mg/dL (70-99) Test 07/28/17 15:27 07/28/17 16:14 07/28/17 16:53 07/28/17 21:01 Glucose (Fingerstick) 60 mg/dL (70-99) 172 mg/dL (70-99) 138 mg/dL (70-99) 250 mg/dL (70-99) Test 07/29/17 04:10 07/29/17 07:31 Sodium Level 133 mmol/L (136-145) Potassium Level 4.5 mmol/L (3.5-5.1) Chloride Level 97 mmol/L (98-107) Carbon Dioxide Level 30 mmol/L (21-32) Anion Gap 6 (6-14) Blood Urea Nitrogen 24 mg/dL (7-20) Creatinine 3.9 mg/dL (0.6-1.0) Estimated GFR (Cockcroft-Gault) 11.5 Glucose Level 187 mg/dL (70-99) Calcium Level 8.7 mg/dL (8.5-10.1) Phosphorus Level 5.2 mg/dL (2.6-4.7) Magnesium Level 2.1 mg/dL (1.8-2.4) Albumin 2.2 g/dL (3.4-5.0) Glucose (Fingerstick) 201 mg/dL (70-99) Brief Hospital Course Ms. Marques is a 66 old obese female with lots of comorbids, ESRD on HD, scheduled hx CHF, did not miss hd, was admitted for tender thigh nodules and concerns for calciphylaxis. Skin biopsy done by GS, path pending, NOn toxic appearing, Course remarkable for hypoglycemia in the 20s 1 day prior to dc,. I ahve adjusted insulin regimen but BS might slowly creep up so pls feel free to readjust as see fit, Initially refused SNU but lives with elderly who uses a cane. Agreed to SNU Seen and examined; consults: GS and renal Proc: skin biopsy RT thing - post biopsy site looks good Discharge Information Condition at Discharge: Improved, Stable Disposition/Orders: Other (snu) Scheduled Aspirin (Aspirin), 1 TAB PO DAILY, (Reported) Carvedilol (Carvedilol), 6.25 MG PO BIDWMEALS Cyclobenzaprine Hcl (Cyclobenzaprine Hcl), 1 TAB PO BID, (Reported) Folic Acid/Vitamin B Comp W-C (Michelle-Edwin Tablet), 0.8 MG PO DAILY, (Reported) Glimepiride (Glimepiride), 1 TAB PO DAILY, (Reported) Insulin Detemir (Levemir Flextouch), 28 UNITS SQ QHS Insulin Lispro (Humalog), 30 UNIT SQ TIDAC, (Reported) Omeprazole (Omeprazole), 1 CAP PO DAILY, (Reported) Polyethylene Glycol 3350 (Miralax), 17 GM PO BID Scheduled PRN Gabapentin (Gabapentin), 300 MG PO PRN TID PRN for SEE COMMENTS, (Reported) DHRUV LACEY MD Jul 29, 2017 09:21
[2017-07-29] MEDS: oxyCODONE IR 5 MG TABLET PO PRN (10:24)
[2017-07-29] MEDS: CYCLOBENZAPRINE 10 MG TABLET. PO SCH (10:26)
[2017-07-29] MEDS: GABAPENTIN 300 MG CAPSULE. PO PRN (10:26)
[2017-07-29 11:00] VITALS: BP 156/64
--- NOTE | 2017-07-29 11:31 | PDOC ---
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 Vitals Vital Signs Vital Signs Date Time Temp Pulse Resp B/P (MAP) Pulse Ox O2 Delivery O2 Flow Rate FiO2 07/29/17 11:00 98.8 81 20 156/64 (94) 96 Room Air 98.8 07/28/17 08:00 2.0 Labs Last Labs Laboratory Tests Test 07/27/17 11:41 07/27/17 15:27 07/27/17 20:34 07/28/17 04:10 Glucose (Fingerstick) 111 mg/dL (70-99) 71 mg/dL (70-99) 238 mg/dL (70-99) Sodium Level 138 mmol/L (136-145) Potassium Level 3.9 mmol/L (3.5-5.1) Chloride Level 101 mmol/L (98-107) Carbon Dioxide Level 31 mmol/L (21-32) Anion Gap 6 (6-14) Blood Urea Nitrogen 15 mg/dL (7-20) Creatinine 2.6 mg/dL (0.6-1.0) Estimated GFR (Cockcroft-Gault) 18.3 Glucose Level 128 mg/dL (70-99) Calcium Level 8.6 mg/dL (8.5-10.1) Phosphorus Level 3.7 mg/dL (2.6-4.7) Magnesium Level 2.0 mg/dL (1.8-2.4) Albumin 1.9 g/dL (3.4-5.0) Test 07/28/17 07:10 07/28/17 11:03 07/28/17 14:22 07/28/17 14:24 Glucose (Fingerstick) 146 mg/dL (70-99) 164 mg/dL (70-99) 22 mg/dL (70-99) 23 mg/dL (70-99) Test 07/28/17 14:39 07/28/17 14:52 07/28/17 14:54 07/28/17 15:02 Glucose (Fingerstick) 23 mg/dL (70-99) 20 mg/dL (70-99) 23 mg/dL (70-99) 32 mg/dL (70-99) Test 07/28/17 15:11 07/28/17 15:27 07/28/17 16:14 07/28/17 16:53 Glucose (Fingerstick) 40 mg/dL (70-99) 60 mg/dL (70-99) 172 mg/dL (70-99) 138 mg/dL (70-99) Test 07/28/17 21:01 07/29/17 04:10 07/29/17 07:31 Glucose (Fingerstick) 250 mg/dL (70-99) 201 mg/dL (70-99) Sodium Level 133 mmol/L (136-145) Potassium Level 4.5 mmol/L (3.5-5.1) Chloride Level 97 mmol/L (98-107) Carbon Dioxide Level 30 mmol/L (21-32) Anion Gap 6 (6-14) Blood Urea Nitrogen 24 mg/dL (7-20) Creatinine 3.9 mg/dL (0.6-1.0) Estimated GFR (Cockcroft-Gault) 11.5 Glucose Level 187 mg/dL (70-99) Calcium Level 8.7 mg/dL (8.5-10.1) Phosphorus Level 5.2 mg/dL (2.6-4.7) Magnesium Level 2.1 mg/dL (1.8-2.4) Albumin 2.2 g/dL (3.4-5.0) Laboratory Tests Test 07/28/17 14:22 07/28/17 14:24 07/28/17 14:39 07/28/17 14:52 Glucose (Fingerstick) 22 mg/dL (70-99) 23 mg/dL (70-99) 23 mg/dL (70-99) 20 mg/dL (70-99) Test 07/28/17 14:54 07/28/17 15:02 07/28/17 15:11 07/28/17 15:27 Glucose (Fingerstick) 23 mg/dL (70-99) 32 mg/dL (70-99) 40 mg/dL (70-99) 60 mg/dL (70-99) Test 07/28/17 16:14 07/28/17 16:53 07/28/17 21:01 07/29/17 04:10 Glucose (Fingerstick) 172 mg/dL (70-99) 138 mg/dL (70-99) 250 mg/dL (70-99) Sodium Level 133 mmol/L (136-145) Potassium Level 4.5 mmol/L (3.5-5.1) Chloride Level 97 mmol/L (98-107) Carbon Dioxide Level 30 mmol/L (21-32) Anion Gap 6 (6-14) Blood Urea Nitrogen 24 mg/dL (7-20) Creatinine 3.9 mg/dL (0.6-1.0) Estimated GFR (Cockcroft-Gault) 11.5 Glucose Level 187 mg/dL (70-99) Calcium Level 8.7 mg/dL (8.5-10.1) Phosphorus Level 5.2 mg/dL (2.6-4.7) Magnesium Level 2.1 mg/dL (1.8-2.4) Albumin 2.2 g/dL (3.4-5.0) Test 07/29/17 07:31 Glucose (Fingerstick) 201 mg/dL (70-99) MAJO DRAKE MD Jul 29, 2017 11:31
[2017-07-29] MEDS: PANTOPRAZOLE 40 MG TABLET.DR. PO SCH (13:12)
[2017-07-29] MEDS: FOLIC/VIT B COMP W-C (RENAL) TABLET. PO SCH (13:13)
[2017-07-29] MEDS: ASPIRIN 325 MG TABLET PO SCH (13:13)
[2017-07-29] MEDS: LIDOCAINE (700MG/PATCH) PATCH. TD SCH (13:14)
[2017-07-29] MEDS: CHOLECALCIFEROL (VITAMIN D3) 1,000 UNIT TABLET PO SCH (13:14)
[2017-07-29] MEDS: POLYETHYLENE GLYCOL 3350 17 GM PACKET. PO SCH (13:14)
[2017-07-29] MEDS ORDERED: IV NORMAL SALINE 1000ML BAG 1,000 ML IV PRN (13:25)
[2017-07-29] MEDS ORDERED: DIALYSIS PATIENT. MC PRN (13:30)
[2017-07-29 15:00] VITALS: BP 115/70
[2017-08-03] MEDS ORDERED: CARV3.122 PO (08:03)
[2017-08-03] MEDS ORDERED: OXYC-323 PO (08:03)
[2017-08-03] MEDS ORDERED: PANT40TA5 PO (08:03)
[2017-08-03] MEDS ORDERED: flexeril PO (08:03)
[2017-08-03] MEDS ORDERED: ASPI325T8 PO (08:03)
[2017-08-03] MEDS ORDERED: [UNRECOGNIZED DRUG - CODE] IV/SQ (08:03)
[2017-08-03] MEDS ORDERED: GLIM4TAB PO (08:03)
[2017-08-03] MEDS ORDERED: LOPE2CAP PO (08:03)
[2017-08-03] MEDS ORDERED: LIDO700A39 TP (08:03)
[2017-08-03] MEDS ORDERED: CHOL10003 PO (08:03)
[2017-08-03] MEDS ORDERED: INSU100V13 SQ (08:09)
--- NOTE | 2017-08-05 10:40 | PATHOLOGY ---
PATHOLOGY REPORT * * * * * * * * FINAL DIAGNOSIS: Skin and subcutaneous tissue, right lateral thigh: - Focal vascular calcification and septal panniculitis with calcifications, consistent with calciphylaxis. (JPM:lurdes; 08/05/2017) COMMENT: Sections of the right lateral thigh biopsy reveal skin and subcutaneous tissue. There is focal vascular calcification within the subcutaneous tissue. There are also foci of septal panniculitis with apparent associated calcifications. A von Kossa stain for calcium is obtained and yields the following result: Von Kossa (A1): Vascular calcification and apparent septal calcifications positive. The morphologic and special stain findings demonstrate focal vascular and septal panniculitis with associated calcifications, consistent with calciphylaxis. Special stain performed: von Kossa stain. (JPM:lurdes; 08/05/2017) REPORT ELECTRONICALLY SIGNED BY: James Francis M.D. DATE/TIME: 08/05/2017 10:39 * * * * * * * * GROSS PATHOLOGY: The specimen is received in formalin, labeled "Justyna Marques, skin and subcutaneous tissue right lateral thigh," and consists of an ellipse of yarbrough and grossly unremarkable skin measuring 2.9 x 0.8 x 0.5 cm with underlying yellow lobulated adipose tissue measuring 2.8 x 2.0 by 1.1 cm. Sectioning reveals homogenous mcgovern yarbrough to yellow lobulated cut surfaces. Associate Media Director sections are submitted in cassette A1. (SDY; 07/29/2017) INITIAL CPT CODE(S): A; 05609, 91424 Professional services performed [place] [address] Technical services performed by [facility] at [address] [place] [address] [address], [place] [address]. SPECIMEN(S) RECEIVED: A.Skin and subcutaneous tissue right lateral thigh CLINICAL HISTORY: CHF, sepsis, weakness PATIENT: NATASHA MARQUES I /AGE: 1 1950 (Age: 66) PATIENT #: [id number] ALT CASE #: SPECIMEN COLLECTION DATE: 07/27/2017 SPECIMEN RECEIVED DATE: 07/28/2017 [facility] - [address] [place] [address] - PHONE: [phone] * * * END OF REPORT * * *
== END 2017-07-29 16:31 | DRG 291 ==
LOC: 5 SOUTH 04:59
PROVIDERS: ADMIT Internal Medicine; ATTEND Internal Medicine
PROC: 5A1D70Z Performance of Urinary Filtration, Intermittent, Less than 6 Hours Per Day (ICD-10-PCS; 2017-07-21)
PROC: 5A1D70Z Performance of Urinary Filtration, Intermittent, Less than 6 Hours Per Day (ICD-10-PCS; 2017-07-23)
PROC: 5A1D70Z Performance of Urinary Filtration, Intermittent, Less than 6 Hours Per Day (ICD-10-PCS; 2017-07-25)
PROC: 5A1D70Z Performance of Urinary Filtration, Intermittent, Less than 6 Hours Per Day (ICD-10-PCS; 2017-07-27)
PROC: 0JBL0ZX Excision of Right Upper Leg Subcutaneous Tissue and Fascia, Open Approach, Diagnostic (ICD-10-PCS; principal; 2017-07-27 16:15)
PROC: 5A1D70Z Performance of Urinary Filtration, Intermittent, Less than 6 Hours Per Day (ICD-10-PCS; 2017-07-29)
DX: I13.2 Hypertensive heart and chronic kidney disease with heart failure and with stage 5 chronic kidney disease, or end stage renal disease (principal); I50.33 Acute on chronic diastolic (congestive) heart failure; E43 Unspecified severe protein-calorie malnutrition; E11.22 Type 2 diabetes mellitus with diabetic chronic kidney disease; E11.42 Type 2 diabetes mellitus with diabetic polyneuropathy; E11.51 Type 2 diabetes mellitus with diabetic peripheral angiopathy without gangrene; E87.2 Acidosis; I48.1 Persistent atrial fibrillation; I48.2 Chronic atrial fibrillation; N18.6 End stage renal disease; J06.9 Acute upper respiratory infection, unspecified; Z99.2 Dependence on renal dialysis; G47.33 Obstructive sleep apnea (adult) (pediatric); M19.90 Unspecified osteoarthritis, unspecified site; I89.0 Lymphedema, not elsewhere classified; E78.5 Hyperlipidemia, unspecified; K21.9 Gastro-esophageal reflux disease without esophagitis; F41.9 Anxiety disorder, unspecified; Z68.35 Body mass index [BMI] 35.0-35.9, adult; I87.2 Venous insufficiency (chronic) (peripheral); E66.01 Morbid (severe) obesity due to excess calories; M10.9 Gout, unspecified; Z79.4 Long term (current) use of insulin; G89.29 Other chronic pain; Z90.49 Acquired absence of other specified parts of digestive tract; Z90.710 Acquired absence of both cervix and uterus; Z80.0 Family history of malignant neoplasm of digestive organs; Z82.49 Family history of ischemic heart disease and other diseases of the circulatory system; R22.43 Localized swelling, mass and lump, lower limb, bilateral
CPT/HCPCS: 36415; 71010; 73221; 73502; 73552; 80053; 80069; 82306; 82962; 83036; 83605; 83735; 84443; 85018; 85025; 87324; 87340; 87341; 88305; 88313; C1769; J0690; J1815; J2704; J3010; J3490; 97116; 97530; 97535; J2001

== ENCOUNTER 2017-10-05 04:00 | Inpatient (IN) | payer OTHER ==
[2017-10-05] MEDS ORDERED: ACETAMINOPHEN 325 MG TABLET. PO ×2 (04:45)
[2017-10-05] MEDS: NYSTATIN TOPICAL POWDER 15GM BOTTLE. TP ×4 (08:53→21:41)
[2017-10-05] MEDS ORDERED: ONDANSETRON PF 4 MG/2 ML VIAL. IV ×2 (09:00)
[2017-10-05] MEDS: LIDOCAINE (700MG/PATCH) PATCH. TP ×2 (09:00)
[2017-10-05] MEDS ORDERED: oxyCODONE/APAP 5/325 1 TAB TABLET PO ×2 (09:00)
[2017-10-05] MEDS ORDERED: LOPERAMIDE 2 MG CAPSULE PO ×2 (09:00)
[2017-10-05] MEDS: POLYETHYLENE GLYCOL 3350 17 GM PACKET. PO ×4 (09:00→21:40)
[2017-10-05] MEDS ORDERED: ONDANSETRON ODT 4 MG TAB.RAPDIS. PO ×2 (09:00)
[2017-10-05 09:07] LABS: POC GLUCOSE 159 mg/dL (70-99)
[2017-10-05 09:08] LABS: POC GLUCOSE 157 mg/dL (70-99)
[2017-10-05 09:23] LABS: ADD MAN DIFF? NO
[2017-10-05 09:26] LABS: BASO # 0.1 x10^3/uL (0.0-0.2); BASO % 1 % (0-3); EOS # 0.1 x10^3/uL (0.0-0.7); EOS % 1 % (0-3); HEMATOCRIT 32.2 % (36.0-47.0); HEMOGLOBIN 10.3 g/dL (12.0-15.5); LYMPH # 3.6 x10^3/uL (1.0-4.8); LYMPH % 32 % (24-48); MEAN CORPUSCULAR HEMOGLOBIN 29 pg (25-35); MEAN CORPUSCULAR HGB CONC 32 g/dL (31-37); MEAN CORPUSCULAR VOLUME 92 fL (79-100); MONO # 0.6 x10^3/uL (0.0-1.1); MONO % 6 % (0-9); NEUT # 6.7 x10^3uL (1.8-7.7); NEUT % 60 % (31-73); PLATELET COUNT 150 x10^3/uL (140-400); RED BLOOD COUNT 3.51 x10^6/uL (3.50-5.40); RED CELL DISTRIBUTION WIDTH 16.6 % (11.5-14.5); WHITE BLOOD COUNT 11.1 x10^3/uL (4.0-11.0)
[2017-10-05 09:38] LABS: INR 1.2 (0.8-1.1); PROTHROMBIN TIME PATIENT 14.2 SEC (11.7-14.0)
[2017-10-05 09:47] LABS: ANION GAP 7 (6-14); BLOOD UREA NITROGEN 25 mg/dL (7-20); CALCIUM 8.7 mg/dL (8.5-10.1); CARBON DIOXIDE 31 mmol/L (21-32); CHLORIDE 100 mmol/L (98-107); CREATININE 4.5 mg/dL (0.6-1.0); GFR 9.7; GLUCOSE 170 mg/dL (70-99); POTASSIUM 3.6 mmol/L (3.5-5.1); SODIUM 138 mmol/L (136-145)
[2017-10-05] MEDS: FUROSEMIDE 40 MG/4 ML VIAL. IVP ×2 (10:15)
[2017-10-05] MEDS: CHOLECALCIFEROL (VITAMIN D3) 1,000 UNIT TABLET PO ×2 (11:32)
[2017-10-05] MEDS: LACTOBACILLUS RHAMNOSUS GG 1 CAPSULE. PO ×4 (11:32→21:40)
[2017-10-05] MEDS: FOLIC/VIT B COMP W-C (RENAL) TABLET. PO ×2 (11:32)
[2017-10-05] MEDS: PANTOPRAZOLE 40 MG TABLET.DR. PO ×2 (11:32)
[2017-10-05] MEDS: GLIMEPIRIDE 2 MG TABLET. PO ×2 (11:33)
[2017-10-05] MEDS: ASPIRIN ENTERIC COATED 325 MG TABLET.DR. PO ×2 (11:33)
[2017-10-05] MEDS: CYCLOBENZAPRINE 10 MG TABLET. PO ×4 (11:33→21:40)
[2017-10-05] MEDS: oxyCODONE/APAP 5/325 1 TAB TABLET PO ×2 (11:33)
[2017-10-05] MEDS: HEPARIN PF for SUB-Q USE 5,000 UNIT/0.5 ML VIAL. SQ ×4 (11:45→21:41)
[2017-10-05 12:08] LABS: POC GLUCOSE 143 mg/dL (70-99)
[2017-10-05] MEDS ORDERED: MAGNESIUM SULFATE 2GM 50 ML IV ×2 (12:30)
[2017-10-05] MEDS ORDERED: IV NORMAL SALINE 500ML BAG 250 ML IV ×2 (12:45)
[2017-10-05 17:10] LABS: POC GLUCOSE 185 mg/dL (70-99)
[2017-10-05 20:44] LABS: POC GLUCOSE 204 mg/dL (70-99)
[2017-10-05] MEDS: DARBEPOETIN ALFA 60 MCG/0.3 ML DISP.SYRIN. SQ ×2 (21:40)
[2017-10-05] MEDS: INSULIN DETEMIR 300 UNITS/3 ML INSULN.PEN. SQ ×2 (21:41)
[2017-10-06 05:31] LABS: ALBUMIN 1.9 g/dL (3.4-5.0); ANION GAP 10 (6-14); BLOOD UREA NITROGEN 29 mg/dL (7-20); CALCIUM 8.1 mg/dL (8.5-10.1); CARBON DIOXIDE 29 mmol/L (21-32); CHLORIDE 101 mmol/L (98-107); CREATININE 5.3 mg/dL (0.6-1.0); GLUCOSE 52 mg/dL (70-99); MAGNESIUM 1.6 mg/dL (1.8-2.4); POTASSIUM 3.4 mmol/L (3.5-5.1); SODIUM 140 mmol/L (136-145)
[2017-10-06] MEDS: cefTRIAXone IV Push 1 GM VIAL. IVP ×2 (06:24)
[2017-10-06] MEDS ORDERED: IV NORMAL SALINE 1000ML BAG 1,000 ML IV ×4 (07:14)
[2017-10-06] MEDS ORDERED: DIALYSIS PATIENT. MC ×4 (07:15)
[2017-10-06] MEDS: HEPARIN PF for SUB-Q USE 5,000 UNIT/0.5 ML VIAL. SQ ×4 (09:00→22:11)
[2017-10-06] MEDS: FOLIC/VIT B COMP W-C (RENAL) TABLET. PO ×2 (09:00)
[2017-10-06] MEDS: CYCLOBENZAPRINE 10 MG TABLET. PO ×4 (09:00→22:08)
[2017-10-06] MEDS: NYSTATIN TOPICAL POWDER 15GM BOTTLE. TP ×4 (09:00→22:08)
[2017-10-06] MEDS: LACTOBACILLUS RHAMNOSUS GG 1 CAPSULE. PO ×4 (09:00→22:05)
[2017-10-06] MEDS: POLYETHYLENE GLYCOL 3350 17 GM PACKET. PO ×4 (09:00→22:05)
[2017-10-06] MEDS: LIDOCAINE (700MG/PATCH) PATCH. TP ×2 (09:00)
[2017-10-06] MEDS: CHOLECALCIFEROL (VITAMIN D3) 1,000 UNIT TABLET PO ×2 (09:00)
[2017-10-06] MEDS: PANTOPRAZOLE 40 MG TABLET.DR. PO ×2 (14:28)
[2017-10-06] MEDS: GLIMEPIRIDE 2 MG TABLET. PO ×2 (14:28)
[2017-10-06] MEDS: ASPIRIN ENTERIC COATED 325 MG TABLET.DR. PO ×2 (14:28)
[2017-10-06] MEDS: SODIUM THIOSULFATE 25 GM in TOTAL VOLUME 0 ML IV (16:00)
[2017-10-06 16:40] LABS: POC GLUCOSE 73 mg/dL (70-99)
[2017-10-06] MEDS: oxyCODONE/APAP 5/325 1 TAB TABLET PO ×2 (17:40)
[2017-10-06 20:52] LABS: POC GLUCOSE 85 mg/dL (70-99)
[2017-10-06] MEDS: INSULIN DETEMIR 300 UNITS/3 ML INSULN.PEN. SQ ×2 (22:05)
[2017-10-07 04:50] LABS: ADD MAN DIFF? NO
[2017-10-07 05:40] LABS: ALBUMIN 1.9 g/dL (3.4-5.0); ANION GAP 6 (6-14); BLOOD UREA NITROGEN 13 mg/dL (7-20); CALCIUM 8.3 mg/dL (8.5-10.1); CARBON DIOXIDE 32 mmol/L (21-32); CHLORIDE 103 mmol/L (98-107); CREATININE 3.4 mg/dL (0.6-1.0); GFR 13.4; GLUCOSE 51 mg/dL (70-99); MAGNESIUM 1.7 mg/dL (1.8-2.4); POTASSIUM 3.4 mmol/L (3.5-5.1); SODIUM 141 mmol/L (136-145)
[2017-10-07] MEDS: cefTRIAXone IV Push 1 GM VIAL. IVP ×2 (06:18)
[2017-10-07 06:53] LABS: BASO % 0 % (0-3); EOS # 0.2 x10^3/uL (0.0-0.7); EOS % 2 % (0-3); HEMATOCRIT 32.8 % (36.0-47.0); HEMOGLOBIN 10.6 g/dL (12.0-15.5); LYMPH # 2.6 x10^3/uL (1.0-4.8); LYMPH % 28 % (24-48); MEAN CORPUSCULAR HEMOGLOBIN 30 pg (25-35); MEAN CORPUSCULAR HGB CONC 32 g/dL (31-37); MEAN CORPUSCULAR VOLUME 93 fL (79-100); MONO # 0.4 x10^3/uL (0.0-1.1); MONO % 5 % (0-9); NEUT # 5.9 x10^3uL (1.8-7.7); NEUT % 65 % (31-73); PLATELET COUNT 178 x10^3/uL (140-400); RED BLOOD COUNT 3.53 x10^6/uL (3.50-5.40); RED CELL DISTRIBUTION WIDTH 16.4 % (11.5-14.5); WHITE BLOOD COUNT 9.1 x10^3/uL (4.0-11.0)
[2017-10-07] MEDS: FOLIC/VIT B COMP W-C (RENAL) TABLET. PO ×2 (08:14)
[2017-10-07] MEDS: ASPIRIN ENTERIC COATED 325 MG TABLET.DR. PO ×2 (08:14)
[2017-10-07] MEDS: LACTOBACILLUS RHAMNOSUS GG 1 CAPSULE. PO ×2 (08:14)
[2017-10-07] MEDS: PANTOPRAZOLE 40 MG TABLET.DR. PO ×2 (08:15)
[2017-10-07] MEDS: CHOLECALCIFEROL (VITAMIN D3) 1,000 UNIT TABLET PO ×2 (08:15)
[2017-10-07] MEDS: CYCLOBENZAPRINE 10 MG TABLET. PO ×2 (08:15)
[2017-10-07] MEDS: NYSTATIN TOPICAL POWDER 15GM BOTTLE. TP ×2 (09:00)
[2017-10-07] MEDS: HEPARIN PF for SUB-Q USE 5,000 UNIT/0.5 ML VIAL. SQ ×2 (09:00)
[2017-10-07] MEDS: GLIMEPIRIDE 2 MG TABLET. PO ×2 (09:00)
[2017-10-07] MEDS: LIDOCAINE (700MG/PATCH) PATCH. TP ×2 (09:00)
[2017-10-07] MEDS: POLYETHYLENE GLYCOL 3350 17 GM PACKET. PO ×2 (09:00)
[2017-10-07] MEDS ORDERED: SODIUM THIOSULFATE 12.5 GM/50 ML IV ×2 (09:00)
[2017-10-07 09:09] LABS: POC GLUCOSE 58 mg/dL (70-99)
[2017-10-07 11:14] LABS: POC GLUCOSE 39 mg/dL (70-99)
[2017-10-07 12:34] LABS: POC GLUCOSE 38 mg/dL (70-99)
[2017-10-07] MEDS ORDERED: DEXTROSE 50% 25 GM / 50ML DISP.SYRIN. IV ×2 (12:45)
[2017-10-07 13:01] LABS: POC GLUCOSE 62 mg/dL (70-99)
[2017-10-07] MEDS: GABAPENTIN 300 MG CAPSULE. PO ×2 (14:14)
[2017-10-07 14:15] LABS: POC GLUCOSE 136 mg/dL (70-99)
[2017-10-07] MEDS: MAGNESIUM SULFATE 1GM 100 ML IV ×2 (15:57)
[2017-10-07 16:42] LABS: POC GLUCOSE 109 mg/dL (70-99)
[2017-10-08 12:12] LABS: POC GLUCOSE 41 mg/dL (70-99)
== END 2017-10-07 18:00 | disposition home or self-care (01) | DRG 682 ==
LOC: 4 NORTH 04:00
PROVIDERS: Internal Medicine Hematology & Oncology
PROC: 5A1D70Z Performance of Urinary Filtration, Intermittent, Less than 6 Hours Per Day (ICD-10-PCS; principal; 2017-10-05)
DX: N18.6 End stage renal disease (principal); E43 Unspecified severe protein-calorie malnutrition; I13.2 Hypertensive heart and chronic kidney disease with heart failure and with stage 5 chronic kidney disease, or end stage renal disease; E11.22 Type 2 diabetes mellitus with diabetic chronic kidney disease; I27.20 Pulmonary hypertension, unspecified; I95.9 Hypotension, unspecified; E11.649 Type 2 diabetes mellitus with hypoglycemia without coma; E11.42 Type 2 diabetes mellitus with diabetic polyneuropathy; E83.42 Hypomagnesemia; N39.0 Urinary tract infection, site not specified; Z68.41 Body mass index [BMI] 40.0-44.9, adult; E86.9 Volume depletion, unspecified; K52.9 Noninfective gastroenteritis and colitis, unspecified; I48.91 Unspecified atrial fibrillation; E83.59 Other disorders of calcium metabolism; I50.9 Heart failure, unspecified; D63.1 Anemia in chronic kidney disease; E66.9 Obesity, unspecified; K21.9 Gastro-esophageal reflux disease without esophagitis; F32.9 Major depressive disorder, single episode, unspecified; F41.9 Anxiety disorder, unspecified; M19.90 Unspecified osteoarthritis, unspecified site; M10.9 Gout, unspecified; K43.9 Ventral hernia without obstruction or gangrene; Z82.49 Family history of ischemic heart disease and other diseases of the circulatory system; Z90.710 Acquired absence of both cervix and uterus; Z99.2 Dependence on renal dialysis; Z90.49 Acquired absence of other specified parts of digestive tract; Z90.89 Acquired absence of other organs; Z79.899 Other long term (current) drug therapy; Z79.4 Long term (current) use of insulin; Z79.82 Long term (current) use of aspirin
CPT/HCPCS: 36415; 80048; 80069; 82533; 82962; 83735; 85018; 85025; 85610; 87086; 93970; 97161-GP; 97165-GO; 97530-GP; J0696; J1815; J3475

== ENCOUNTER 2017-12-04 15:20 | Inpatient (IN) | payer OTHER ==
[2017-12-04 16:12] LABS: ADD MAN DIFF? NO
[2017-12-04 16:19] LABS: BASO % 1 % (0-3); EOS % 0 % (0-3); HEMATOCRIT 33.4 % (36.0-47.0); LYMPH # 0.7 x10^3/uL (1.0-4.8); LYMPH % 20 % (24-48); MEAN CORPUSCULAR HEMOGLOBIN 31 pg (25-35); MEAN CORPUSCULAR HGB CONC 33 g/dL (31-37); MEAN CORPUSCULAR VOLUME 95 fL (79-100); MONO # 0.4 x10^3/uL (0.0-1.1); MONO % 10 % (0-9); NEUT # 2.6 x10^3uL (1.8-7.7); NEUT % 69 % (31-73); PLATELET COUNT 128 x10^3/uL (140-400); RED BLOOD COUNT 3.52 x10^6/uL (3.50-5.40); RED CELL DISTRIBUTION WIDTH 14.8 % (11.5-14.5); WHITE BLOOD COUNT 3.7 x10^3/uL (4.0-11.0)
[2017-12-04 16:36] LABS: ANION GAP 17 (6-14); BLOOD UREA NITROGEN 24 mg/dL (7-20); BUN/CREATININE RATIO 4 (6-20); CALCIUM 8.5 mg/dL (8.5-10.1); CARBON DIOXIDE 25 mmol/L (21-32); CHLORIDE 97 mmol/L (98-107); CREATININE 6.4 mg/dL (0.6-1.0); GFR 6.5; GLUCOSE 131 mg/dL (70-99); POTASSIUM 3.5 mmol/L (3.5-5.1); SODIUM 139 mmol/L (136-145)
[2017-12-04 16:40] LABS: ALBUMIN 2.3 g/dL (3.4-5.0); ALBUMIN/GLOBULIN RATIO 0.7 (1.0-1.7); ALK PHOS 289 U/L (46-116); ALT (SGPT) 22 U/L (14-59); AST (SGOT) 28 U/L (15-37); LIPASE 23 U/L (73-393); TOTAL BILIRUBIN 0.7 mg/dL (0.2-1.0); TOTAL PROTEIN 5.4 g/dL (6.4-8.2)
[2017-12-04 16:40] LABS: TROPONINI 0.019 ng/mL (0.000-0.055)
[2017-12-04 16:44] LABS: NT-PRO BNP 11573 pg/mL (0-124)
[2017-12-04] MEDS ORDERED: VANCOMYCIN 2 GM in IV DEXTROSE 5 %-0.45 % NACL 500 ML IV (17:00)
[2017-12-04] MEDS: IPRATRPIUM/ALBUTEROL 0.5/2.5MG 3 ML NEBU. NEB ×2 (17:10→20:00)
[2017-12-04] MEDS ORDERED: fentaNYL PF VIAL 100 MCG/2 ML VIAL IV (18:00)
[2017-12-04] MEDS ORDERED: ONDANSETRON PF 4 MG/2 ML VIAL. IV ×2 (18:00→18:15)
[2017-12-04] MEDS ORDERED: ACETAMINOPHEN 325 MG TABLET. PO ×2 (18:00→18:15)
[2017-12-04] MEDS ORDERED: MORPHINE SULFATE 4 MG/ML DISP.SYRIN. IV (18:15)
[2017-12-04] MEDS ORDERED: DEXTROSE 50% 25 GM / 50ML DISP.SYRIN. IV (18:15)
[2017-12-04] MEDS ORDERED: hydrALAZINE 20 MG/ML VIAL. IVP (18:15)
[2017-12-04] MEDS ORDERED: DOCUSATE SODIUM 100 MG CAPSULE. PO (18:15)
[2017-12-04] MEDS: CEFEPIME HCL IV Push 2 GM VIAL. IVP (18:43)
[2017-12-04] MEDS: VANCOMYCIN 1.75 GM in IV DEXTROSE 5 %-0.45 % NACL 500 ML IV (18:49)
[2017-12-04] MEDS: VANCOMYCIN PER PHARMACY MC (19:46)
[2017-12-04] MEDS: POLYETHYLENE GLYCOL 3350 17 GM PACKET. PO (21:00)
[2017-12-04] MEDS: CYCLOBENZAPRINE 10 MG TABLET. PO (21:00)
[2017-12-04] MEDS ORDERED: INSULIN DETEMIR 300 UNITS/3 ML INSULN.PEN. SQ (21:00)
[2017-12-04] MEDS: INSULIN DETEMIR 300 UNITS/3 ML INSULN.PEN. SQ (21:00)
[2017-12-04] MEDS: PATCH REMOVAL. MC (21:00)
[2017-12-04] MEDS: HEPARIN PF for SUB-Q USE 5,000 UNIT/0.5 ML VIAL. SQ (21:04)
[2017-12-04] MEDS ORDERED: CEFEPIME HCL 2 GM in IV DEXTROSE 5% 100 ML IV (22:00)
[2017-12-05] MEDS: VANCOMYCIN RANDOM LEVEL. MC (06:00)
[2017-12-05] MEDS: HEPARIN PF for SUB-Q USE 5,000 UNIT/0.5 ML VIAL. SQ ×3 (06:00→20:50)
[2017-12-05] MEDS: PANTOPRAZOLE 40 MG TABLET.DR. PO (07:30)
[2017-12-05 07:36] LABS: POC GLUCOSE 93 mg/dL (70-99)
[2017-12-05] MEDS: INSULIN ASPART 300 UNITS/3 ML INSULN.PEN SQ ×3 (08:00→16:49)
[2017-12-05] MEDS: IPRATRPIUM/ALBUTEROL 0.5/2.5MG 3 ML NEBU. NEB ×3 (08:13→16:35)
[2017-12-05 08:34] LABS: ADD MAN DIFF? NO
[2017-12-05 08:39] LABS: BASO % 1 % (0-3); EOS % 1 % (0-3); HEMATOCRIT 28.9 % (36.0-47.0); HEMOGLOBIN 9.8 g/dL (12.0-15.5); LYMPH % 31 % (24-48); MEAN CORPUSCULAR HEMOGLOBIN 32 pg (25-35); MEAN CORPUSCULAR HGB CONC 34 g/dL (31-37); MEAN CORPUSCULAR VOLUME 95 fL (79-100); MONO # 0.3 x10^3/uL (0.0-1.1); MONO % 10 % (0-9); NEUT # 1.9 x10^3uL (1.8-7.7); NEUT % 58 % (31-73); PLATELET COUNT 105 x10^3/uL (140-400); RED BLOOD COUNT 3.05 x10^6/uL (3.50-5.40); RED CELL DISTRIBUTION WIDTH 14.8 % (11.5-14.5); WHITE BLOOD COUNT 3.2 x10^3/uL (4.0-11.0)
[2017-12-05] MEDS: LIDOCAINE (700MG/PATCH) PATCH. TP ×2 (09:00→20:37)
[2017-12-05] MEDS: POLYETHYLENE GLYCOL 3350 17 GM PACKET. PO ×2 (09:00→20:50)
[2017-12-05] MEDS: CYCLOBENZAPRINE 10 MG TABLET. PO ×2 (09:00→20:49)
[2017-12-05] MEDS: FOLIC/VIT B COMP W-C (RENAL) TABLET. PO (09:00)
[2017-12-05 09:03] LABS: ANION GAP 15 (6-14); BLOOD UREA NITROGEN 23 mg/dL (7-20); CALCIUM 7.8 mg/dL (8.5-10.1); CARBON DIOXIDE 23 mmol/L (21-32); CHLORIDE 104 mmol/L (98-107); CREATININE 6.2 mg/dL (0.6-1.0); GFR 6.7; GLUCOSE 91 mg/dL (70-99); POTASSIUM 3.6 mmol/L (3.5-5.1); SODIUM 142 mmol/L (136-145)
[2017-12-05] MEDS: ASPIRIN ENTERIC COATED 325 MG TABLET.DR. PO (10:41)
[2017-12-05] MEDS: CHOLECALCIFEROL (VITAMIN D3) 1,000 UNIT TABLET PO (10:41)
[2017-12-05] MEDS: GABAPENTIN 300 MG CAPSULE. PO (10:44)
[2017-12-05 11:34] LABS: POC GLUCOSE 125 mg/dL (70-99)
[2017-12-05] MEDS ORDERED: MAGNESIUM SULFATE 2GM 50 ML IV (12:30)
[2017-12-05] MEDS: VANCOMYCIN PER PHARMACY MC ×2 (13:39→13:42)
[2017-12-05] MEDS: VANCOMYCIN 500 MG in IV DEXTROSE 5% 100 ML IV (16:00)
[2017-12-05 16:36] LABS: POC GLUCOSE 102 mg/dL (70-99)
[2017-12-05] MEDS ORDERED: CEFEPIME HCL IV Push 1 GM VIAL. IVP (18:00)
[2017-12-05] MEDS ORDERED: IV NORMAL SALINE 1000ML BAG 1,000 ML IV (19:41)
[2017-12-05] MEDS ORDERED: ALBUMIN HUMAN 25% 200 ML IV (19:45)
[2017-12-05] MEDS ORDERED: DIALYSIS PATIENT. MC ×2 (19:45)
[2017-12-05] MEDS: LACTOBACILLUS RHAMNOSUS GG 1 CAPSULE. PO (20:49)
[2017-12-05] MEDS: PATCH REMOVAL. MC (20:49)
[2017-12-05] MEDS: DARBEPOETIN ALFA 60 MCG/0.3 ML DISP.SYRIN. SQ (20:50)
[2017-12-05] MEDS: INSULIN DETEMIR 300 UNITS/3 ML INSULN.PEN. SQ (20:50)
[2017-12-05 22:18] LABS: C DIFF BY PCR Negative (Negative)
[2017-12-06 01:31] LABS: POC GLUCOSE 109 mg/dL (70-99)
[2017-12-06] MEDS: HEPARIN PF for SUB-Q USE 5,000 UNIT/0.5 ML VIAL. SQ ×3 (05:08→21:28)
[2017-12-06] MEDS: LACTOBACILLUS RHAMNOSUS GG 1 CAPSULE. PO (06:53)
[2017-12-06] MEDS: CYCLOBENZAPRINE 10 MG TABLET. PO (06:53)
[2017-12-06] MEDS: ASPIRIN ENTERIC COATED 325 MG TABLET.DR. PO (06:53)
[2017-12-06] MEDS: PANTOPRAZOLE 40 MG TABLET.DR. PO (06:53)
[2017-12-06] MEDS: INSULIN ASPART 300 UNITS/3 ML INSULN.PEN SQ ×3 (06:53→17:00)
[2017-12-06] MEDS: CHOLECALCIFEROL (VITAMIN D3) 1,000 UNIT TABLET PO (06:54)
[2017-12-06] MEDS: FOLIC/VIT B COMP W-C (RENAL) TABLET. PO (06:54)
[2017-12-06] MEDS: POLYETHYLENE GLYCOL 3350 17 GM PACKET. PO (06:54)
[2017-12-06 07:27] LABS: POC GLUCOSE 93 mg/dL (70-99)
[2017-12-06] MEDS ORDERED: IV NORMAL SALINE 1000ML BAG 1,000 ML IV ×2 (09:54)
[2017-12-06] MEDS ORDERED: cloNIDine HCL 0.1 MG TABLET PO (10:00)
[2017-12-06] MEDS ORDERED: ALBUMIN HUMAN 25% 200 ML IV (10:00)
[2017-12-06] MEDS ORDERED: ACETAMINOPHEN 500 MG TABLET PO (10:00)
[2017-12-06] MEDS ORDERED: LABETALOL 20 MG/4 ML DISP.SYRIN. IVP (10:00)
[2017-12-06] MEDS ORDERED: diphenhydrAMINE 50 MG/ML VIAL IV ×2 (10:00)
[2017-12-06] MEDS ORDERED: DIALYSIS PATIENT. MC (10:00)
[2017-12-06 10:02] LABS: HEMOGLOBIN 9.8 g/dL (12.0-15.5)
[2017-12-06 10:18] LABS: ALBUMIN 1.9 g/dL (3.4-5.0); ANION GAP 15 (6-14); BLOOD UREA NITROGEN 26 mg/dL (7-20); CALCIUM 7.9 mg/dL (8.5-10.1); CARBON DIOXIDE 26 mmol/L (21-32); CHLORIDE 103 mmol/L (98-107); CREATININE 6.6 mg/dL (0.6-1.0); GFR 6.2; GLUCOSE 97 mg/dL (70-99); MAGNESIUM 1.8 mg/dL (1.8-2.4); PHOSPHORUS 5.5 mg/dL (2.6-4.7); POTASSIUM 3.3 mmol/L (3.5-5.1); SODIUM 144 mmol/L (136-145)
[2017-12-06 11:31] LABS: POC GLUCOSE 91 mg/dL (70-99)
[2017-12-06] MEDS: POTASSIUM CHLORIDE 20 MEQ TABLET.ER. PO (11:59)
[2017-12-06] MEDS ORDERED: guaiFENesin DM 200MG/20MG 10 ML SYRUP PO (12:00)
[2017-12-06] MEDS: SODIUM THIOSULFATE 25 GM in TOTAL VOLUME 0 ML IV (15:00)
[2017-12-06] MEDS: VANCOMYCIN PER PHARMACY MC (16:10)
[2017-12-06] MEDS: VANCOMYCIN 500 MG in IV DEXTROSE 5% 100 ML IV (17:46)
[2017-12-06 17:53] LABS: POC GLUCOSE 74 mg/dL (70-99)
[2017-12-06] MEDS ORDERED: DARBEPOETIN ALFA 60 MCG/0.3 ML DISP.SYRIN. SQ (21:00)
[2017-12-06] MEDS: PATCH REMOVAL. MC (21:28)
[2017-12-06] MEDS: INSULIN DETEMIR 300 UNITS/3 ML INSULN.PEN. SQ (21:28)
[2017-12-07 04:56] LABS: ALBUMIN 1.7 g/dL (3.4-5.0); ANION GAP 6 (6-14); BLOOD UREA NITROGEN 10 mg/dL (7-20); CALCIUM 7.9 mg/dL (8.5-10.1); CARBON DIOXIDE 33 mmol/L (21-32); CHLORIDE 103 mmol/L (98-107); CREATININE 3.4 mg/dL (0.6-1.0); GFR 13.4; GLUCOSE 82 mg/dL (70-99); MAGNESIUM 1.7 mg/dL (1.8-2.4); PHOSPHORUS 3.3 mg/dL (2.6-4.7); POTASSIUM 3.5 mmol/L (3.5-5.1); SODIUM 142 mmol/L (136-145)
[2017-12-07] MEDS: HEPARIN PF for SUB-Q USE 5,000 UNIT/0.5 ML VIAL. SQ ×3 (05:34→21:38)
[2017-12-07] MEDS: INSULIN ASPART 300 UNITS/3 ML INSULN.PEN SQ ×3 (08:00→17:00)
[2017-12-07 08:01] LABS: POC GLUCOSE 73 mg/dL (70-99)
[2017-12-07 11:43] LABS: POC GLUCOSE 96 mg/dL (70-99)
[2017-12-07] MEDS: GABAPENTIN 300 MG CAPSULE. PO ×2 (12:12→20:38)
[2017-12-07] MEDS: oxyCODONE/APAP 5/325 1 TAB TABLET PO ×2 (12:13→20:39)
[2017-12-07 15:11] LABS: % SAT IRON 41 % (15-34); IRON,SERUM 32 ug/dL (50-170)
[2017-12-07 16:26] LABS: POC GLUCOSE 88 mg/dL (70-99)
[2017-12-07] MEDS: LACTOBACILLUS RHAMNOSUS GG 1 CAPSULE. PO ×2 (17:13→21:00)
[2017-12-07 18:00] LABS: VITAMIN-B12 1092 pg/mL (247-911)
[2017-12-07] MEDS: PSYLLIUM HUSK (SUGAR FREE) 1 PKT PACKET PO (20:42)
[2017-12-07] MEDS: PATCH REMOVAL. MC (21:00)
[2017-12-07] MEDS: INSULIN DETEMIR 300 UNITS/3 ML INSULN.PEN. SQ (21:00)
[2017-12-08] MEDS: HEPARIN PF for SUB-Q USE 5,000 UNIT/0.5 ML VIAL. SQ ×3 (05:31→22:00)
[2017-12-08 06:48] LABS: MAGNESIUM 1.8 mg/dL (1.8-2.4)
[2017-12-08] MEDS: INSULIN ASPART 300 UNITS/3 ML INSULN.PEN SQ ×3 (08:00→17:00)
[2017-12-08] MEDS: PSYLLIUM HUSK (SUGAR FREE) 1 PKT PACKET PO ×2 (09:00→21:00)
[2017-12-08] MEDS: LACTOBACILLUS RHAMNOSUS GG 1 CAPSULE. PO ×2 (09:00→21:00)
[2017-12-08 11:41] LABS: POC GLUCOSE 85 mg/dL (70-99)
[2017-12-08 12:54] LABS: HEMATOCRIT 28.4 % (36.0-47.0); HEMOGLOBIN 9.4 g/dL (12.0-15.5); MEAN CORPUSCULAR HEMOGLOBIN 32 pg (25-35); MEAN CORPUSCULAR HGB CONC 33 g/dL (31-37); MEAN CORPUSCULAR VOLUME 96 fL (79-100); PLATELET COUNT 108 x10^3/uL (140-400); RED BLOOD COUNT 2.97 x10^6/uL (3.50-5.40); RED CELL DISTRIBUTION WIDTH 15.1 % (11.5-14.5); WHITE BLOOD COUNT 3.4 x10^3/uL (4.0-11.0)
[2017-12-08 13:03] LABS: ALBUMIN 1.7 g/dL (3.4-5.0); ALBUMIN/GLOBULIN RATIO 0.8 (1.0-1.7); ALK PHOS 179 U/L (46-116); ALT (SGPT) 14 U/L (14-59); ANION GAP 8 (6-14); AST (SGOT) 21 U/L (15-37); BLOOD UREA NITROGEN 15 mg/dL (7-20); BUN/CREATININE RATIO 4 (6-20); CALCIUM 7.7 mg/dL (8.5-10.1); CARBON DIOXIDE 32 mmol/L (21-32); CHLORIDE 104 mmol/L (98-107); CREATININE 4.2 mg/dL (0.6-1.0); GFR 10.5; GLUCOSE 78 mg/dL (70-99); POTASSIUM 3.4 mmol/L (3.5-5.1); SODIUM 144 mmol/L (136-145); TOTAL BILIRUBIN 0.5 mg/dL (0.2-1.0); TOTAL PROTEIN 3.8 g/dL (6.4-8.2)
[2017-12-08 13:09] LABS: PHOSPHORUS 3.5 mg/dL (2.6-4.7)
[2017-12-08] MEDS ORDERED: DIALYSIS PATIENT. MC ×2 (15:00)
[2017-12-08] MEDS: VANCOMYCIN PER PHARMACY MC (18:48)
[2017-12-08] MEDS: SODIUM THIOSULFATE 25 GM in TOTAL VOLUME 0 ML IV (18:55)
[2017-12-08] MEDS: VANCOMYCIN 500 MG in IV DEXTROSE 5% 100 ML IV (19:00)
[2017-12-08] MEDS: PATCH REMOVAL. MC (21:00)
[2017-12-08] MEDS: INSULIN DETEMIR 300 UNITS/3 ML INSULN.PEN. SQ (21:00)
[2017-12-08 21:02] LABS: POC GLUCOSE 75 mg/dL (70-99)
[2017-12-08] MEDS: oxyCODONE/APAP 5/325 1 TAB TABLET PO (23:39)
[2017-12-08] MEDS: GABAPENTIN 300 MG CAPSULE. PO (23:39)
[2017-12-09] MEDS: HEPARIN PF for SUB-Q USE 5,000 UNIT/0.5 ML VIAL. SQ ×4 (05:13→19:11)
[2017-12-09] MEDS: INSULIN ASPART 300 UNITS/3 ML INSULN.PEN SQ ×3 (08:00→17:00)
[2017-12-09 08:07] LABS: POC GLUCOSE 78 mg/dL (70-99)
[2017-12-09 08:25] LABS: ALBUMIN 1.7 g/dL (3.4-5.0); ANION GAP 4 (6-14); BLOOD UREA NITROGEN 8 mg/dL (7-20); CALCIUM 7.8 mg/dL (8.5-10.1); CARBON DIOXIDE 35 mmol/L (21-32); CHLORIDE 102 mmol/L (98-107); CREATININE 2.5 mg/dL (0.6-1.0); GFR 19.1; GLUCOSE 82 mg/dL (70-99); MAGNESIUM 1.7 mg/dL (1.8-2.4); POTASSIUM 3.5 mmol/L (3.5-5.1); SODIUM 141 mmol/L (136-145)
[2017-12-09] MEDS: PSYLLIUM HUSK (SUGAR FREE) 1 PKT PACKET PO ×2 (09:00→19:10)
[2017-12-09] MEDS: LACTOBACILLUS RHAMNOSUS GG 1 CAPSULE. PO ×2 (09:00→19:10)
[2017-12-09 11:56] LABS: POC GLUCOSE 130 mg/dL (70-99)
[2017-12-09 17:16] LABS: POC GLUCOSE 106 mg/dL (70-99)
[2017-12-09] MEDS: INSULIN DETEMIR 300 UNITS/3 ML INSULN.PEN. SQ (19:11)
[2017-12-09] MEDS: PATCH REMOVAL. MC (19:58)
[2017-12-09] MEDS: GABAPENTIN 300 MG CAPSULE. PO (22:53)
[2017-12-09] MEDS: oxyCODONE/APAP 5/325 1 TAB TABLET PO (22:54)
[2017-12-10 05:46] LABS: ALBUMIN 1.7 g/dL (3.4-5.0); ANION GAP 5 (6-14); BLOOD UREA NITROGEN 12 mg/dL (7-20); CALCIUM 7.7 mg/dL (8.5-10.1); CARBON DIOXIDE 33 mmol/L (21-32); CHLORIDE 104 mmol/L (98-107); CREATININE 3.5 mg/dL (0.6-1.0); GLUCOSE 111 mg/dL (70-99); MAGNESIUM 1.6 mg/dL (1.8-2.4); PHOSPHORUS 2.6 mg/dL (2.6-4.7); POTASSIUM 3.3 mmol/L (3.5-5.1); SODIUM 142 mmol/L (136-145)
[2017-12-10 07:47] LABS: POC GLUCOSE 79 mg/dL (70-99)
[2017-12-10] MEDS: INSULIN ASPART 300 UNITS/3 ML INSULN.PEN SQ ×3 (07:51→17:00)
[2017-12-10] MEDS: LACTOBACILLUS RHAMNOSUS GG 1 CAPSULE. PO ×2 (09:00→19:50)
[2017-12-10] MEDS: PSYLLIUM HUSK (SUGAR FREE) 1 PKT PACKET PO ×2 (09:00→19:50)
[2017-12-10] MEDS ORDERED: IV NORMAL SALINE 1000ML BAG 1,000 ML IV ×2 (10:25)
[2017-12-10] MEDS: LIDOCAINE 1% PF 2 ML VIAL. INJ ×2 (10:30→11:52)
[2017-12-10] MEDS ORDERED: DIALYSIS PATIENT. MC ×2 (10:30)
[2017-12-10] MEDS ORDERED: ALBUMIN HUMAN 25% 200 ML IV (10:30)
[2017-12-10 11:35] LABS: POC GLUCOSE 113 mg/dL (70-99)
[2017-12-10] MEDS: HEPARIN PF for SUB-Q USE 5,000 UNIT/0.5 ML VIAL. SQ ×2 (14:00→19:50)
[2017-12-10] MEDS: VANCOMYCIN 500 MG in IV DEXTROSE 5% 100 ML IV (14:16)
[2017-12-10] MEDS: SODIUM THIOSULFATE 25 GM in TOTAL VOLUME 0 ML IV (14:17)
[2017-12-10] MEDS: VANCOMYCIN PER PHARMACY MC (15:02)
[2017-12-10 18:05] LABS: POC GLUCOSE 102 mg/dL (70-99)
[2017-12-10] MEDS: PATCH REMOVAL. MC (19:50)
[2017-12-10] MEDS: INSULIN DETEMIR 300 UNITS/3 ML INSULN.PEN. SQ (21:00)
[2017-12-11] MEDS: GABAPENTIN 300 MG CAPSULE. PO (01:18)
[2017-12-11] MEDS: oxyCODONE/APAP 5/325 1 TAB TABLET PO (01:20)
[2017-12-11] MEDS: HEPARIN PF for SUB-Q USE 5,000 UNIT/0.5 ML VIAL. SQ ×3 (01:50→20:51)
[2017-12-11 05:52] LABS: ALBUMIN 1.8 g/dL (3.4-5.0); ANION GAP 4 (6-14); BLOOD UREA NITROGEN 6 mg/dL (7-20); CALCIUM 8.1 mg/dL (8.5-10.1); CARBON DIOXIDE 36 mmol/L (21-32); CHLORIDE 101 mmol/L (98-107); CREATININE 2.2 mg/dL (0.6-1.0); GFR 22.1; GLUCOSE 82 mg/dL (70-99); PHOSPHORUS 1.8 mg/dL (2.6-4.7); POTASSIUM 3.2 mmol/L (3.5-5.1); SODIUM 141 mmol/L (136-145)
[2017-12-11 07:56] LABS: POC GLUCOSE 69 mg/dL (70-99)
[2017-12-11] MEDS: INSULIN ASPART 300 UNITS/3 ML INSULN.PEN SQ ×3 (08:00→16:54)
[2017-12-11] MEDS: PSYLLIUM HUSK (SUGAR FREE) 1 PKT PACKET PO ×2 (08:29→20:51)
[2017-12-11] MEDS: LACTOBACILLUS RHAMNOSUS GG 1 CAPSULE. PO ×2 (08:29→20:50)
[2017-12-11 10:55] LABS: POC GLUCOSE 134 mg/dL (70-99)
[2017-12-11] MEDS: VANCOMYCIN PER PHARMACY MC (15:10)
[2017-12-11 16:39] LABS: POC GLUCOSE 124 mg/dL (70-99)
[2017-12-11 20:49] LABS: POC GLUCOSE 113 mg/dL (70-99)
[2017-12-11] MEDS: INSULIN DETEMIR 300 UNITS/3 ML INSULN.PEN. SQ (20:51)
[2017-12-12 05:34] LABS: ALBUMIN 1.7 g/dL (3.4-5.0); ANION GAP 5 (6-14); BLOOD UREA NITROGEN 11 mg/dL (7-20); CALCIUM 8.4 mg/dL (8.5-10.1); CARBON DIOXIDE 33 mmol/L (21-32); CHLORIDE 104 mmol/L (98-107); CREATININE 3.2 mg/dL (0.6-1.0); GFR 14.4; GLUCOSE 94 mg/dL (70-99); PHOSPHORUS 2.4 mg/dL (2.6-4.7); POTASSIUM 3.3 mmol/L (3.5-5.1); SODIUM 142 mmol/L (136-145)
[2017-12-12] MEDS: HEPARIN PF for SUB-Q USE 5,000 UNIT/0.5 ML VIAL. SQ ×3 (06:00→20:49)
[2017-12-12] MEDS ORDERED: ALBUMIN HUMAN 25% 200 ML IV (07:30)
[2017-12-12] MEDS ORDERED: IV NORMAL SALINE 1000ML BAG 1,000 ML IV ×2 (07:30)
[2017-12-12] MEDS ORDERED: DIALYSIS PATIENT. MC ×2 (07:30)
[2017-12-12] MEDS: LIDOCAINE 1% PF 2 ML VIAL. INJ (08:00)
[2017-12-12] MEDS: INSULIN ASPART 300 UNITS/3 ML INSULN.PEN SQ ×3 (08:00→17:00)
[2017-12-12 08:15] LABS: POC GLUCOSE 79 mg/dL (70-99)
[2017-12-12] MEDS: LACTOBACILLUS RHAMNOSUS GG 1 CAPSULE. PO ×2 (08:50→20:38)
[2017-12-12] MEDS: PSYLLIUM HUSK (SUGAR FREE) 1 PKT PACKET PO ×2 (08:50→20:38)
[2017-12-12] MEDS: SODIUM THIOSULFATE 25 GM in TOTAL VOLUME 0 ML IV (12:39)
[2017-12-12] MEDS: oxyCODONE/APAP 5/325 1 TAB TABLET PO (18:26)
[2017-12-12] MEDS: GABAPENTIN 300 MG CAPSULE. PO (18:26)
[2017-12-12] MEDS: LOPERAMIDE 2 MG CAPSULE PO (20:30)
[2017-12-12] MEDS: DARBEPOETIN ALFA 60 MCG/0.3 ML DISP.SYRIN. SQ (20:38)
[2017-12-12 20:55] LABS: POC GLUCOSE 178 mg/dL (70-99)
[2017-12-12] MEDS: INSULIN DETEMIR 300 UNITS/3 ML INSULN.PEN. SQ (21:00)
[2017-12-13 02:15] LABS: POC GLUCOSE 154 mg/dL (70-99)
[2017-12-13] MEDS: LOPERAMIDE 2 MG CAPSULE PO ×3 (02:40→21:37)
[2017-12-13] MEDS: HEPARIN PF for SUB-Q USE 5,000 UNIT/0.5 ML VIAL. SQ ×3 (05:02→21:44)
[2017-12-13 05:45] LABS: HEP B SURFACE ABDY Non Reactive (.); HEP B SURFACE AG Negative (Negative)
[2017-12-13 07:38] LABS: POC GLUCOSE 121 mg/dL (70-99)
[2017-12-13] MEDS: INSULIN ASPART 300 UNITS/3 ML INSULN.PEN SQ ×3 (08:00→17:00)
[2017-12-13] MEDS: LACTOBACILLUS RHAMNOSUS GG 1 CAPSULE. PO ×2 (09:00→21:00)
[2017-12-13] MEDS: PSYLLIUM HUSK (SUGAR FREE) 1 PKT PACKET PO ×2 (09:00→21:00)
[2017-12-13 11:05] LABS: POC GLUCOSE 131 mg/dL (70-99)
[2017-12-13 16:33] LABS: POC GLUCOSE 147 mg/dL (70-99)
[2017-12-13] MEDS: GABAPENTIN 300 MG CAPSULE. PO (19:48)
[2017-12-13] MEDS: oxyCODONE/APAP 5/325 1 TAB TABLET PO (19:49)
[2017-12-13 20:43] LABS: POC GLUCOSE 172 mg/dL (70-99)
[2017-12-13] MEDS: INSULIN DETEMIR 300 UNITS/3 ML INSULN.PEN. SQ (21:00)
[2017-12-13] MEDS: traMADol 50 MG TABLET PO (21:37)
[2017-12-14] MEDS: LOPERAMIDE 2 MG CAPSULE PO ×4 (00:07→20:03)
[2017-12-14 02:46] LABS: POC GLUCOSE 109 mg/dL (70-99)
[2017-12-14] MEDS: HEPARIN PF for SUB-Q USE 5,000 UNIT/0.5 ML VIAL. SQ ×3 (06:00→20:09)
[2017-12-14 07:25] LABS: POC GLUCOSE 100 mg/dL (70-99)
[2017-12-14] MEDS: INSULIN ASPART 300 UNITS/3 ML INSULN.PEN SQ ×3 (07:51→16:38)
[2017-12-14] MEDS: LACTOBACILLUS RHAMNOSUS GG 1 CAPSULE. PO ×2 (08:23→20:08)
[2017-12-14] MEDS: PSYLLIUM HUSK (SUGAR FREE) 1 PKT PACKET PO ×2 (08:23→20:08)
[2017-12-14 15:22] LABS: C DIFF BY PCR Negative (Negative)
[2017-12-14 16:35] LABS: POC GLUCOSE 144 mg/dL (70-99)
[2017-12-14] MEDS: INSULIN DETEMIR 300 UNITS/3 ML INSULN.PEN. SQ (20:08)
[2017-12-14 21:05] LABS: POC GLUCOSE 164 mg/dL (70-99)
[2017-12-14 21:38] LABS: POC GLUCOSE 121 mg/dL (70-99)
[2017-12-15] MEDS: HEPARIN PF for SUB-Q USE 5,000 UNIT/0.5 ML VIAL. SQ ×3 (04:44→20:18)
[2017-12-15] MEDS: LOPERAMIDE 2 MG CAPSULE PO ×3 (06:05→18:42)
[2017-12-15 06:10] LABS: HEMATOCRIT 25.9 % (36.0-47.0); HEMOGLOBIN 8.7 g/dL (12.0-15.5); MEAN CORPUSCULAR HEMOGLOBIN 32 pg (25-35); MEAN CORPUSCULAR HGB CONC 34 g/dL (31-37); MEAN CORPUSCULAR VOLUME 95 fL (79-100); PLATELET COUNT 122 x10^3/uL (140-400); RED BLOOD COUNT 2.73 x10^6/uL (3.50-5.40); WHITE BLOOD COUNT 4.8 x10^3/uL (4.0-11.0)
[2017-12-15 06:30] LABS: ANION GAP 7 (6-14); BLOOD UREA NITROGEN 13 mg/dL (7-20); CALCIUM 8.5 mg/dL (8.5-10.1); CARBON DIOXIDE 31 mmol/L (21-32); CHLORIDE 105 mmol/L (98-107); GFR 11.1; GLUCOSE 90 mg/dL (70-99); POTASSIUM 3.3 mmol/L (3.5-5.1); SODIUM 143 mmol/L (136-145)
[2017-12-15] MEDS: INSULIN ASPART 300 UNITS/3 ML INSULN.PEN SQ ×3 (08:00→16:55)
[2017-12-15] MEDS ORDERED: IV NORMAL SALINE 1000ML BAG 1,000 ML IV (08:11)
[2017-12-15] MEDS ORDERED: DIALYSIS PATIENT. MC ×2 (08:15)
[2017-12-15 08:30] LABS: POC GLUCOSE 107 mg/dL (70-99)
[2017-12-15] MEDS: LACTOBACILLUS RHAMNOSUS GG 1 CAPSULE. PO ×2 (09:00→20:17)
[2017-12-15] MEDS: PSYLLIUM HUSK (SUGAR FREE) 1 PKT PACKET PO ×2 (09:00→20:17)
[2017-12-15] MEDS: SODIUM THIOSULFATE 25 GM in TOTAL VOLUME 0 ML IV (16:00)
[2017-12-15 16:49] LABS: POC GLUCOSE 156 mg/dL (70-99)
[2017-12-15] MEDS: oxyCODONE/APAP 5/325 1 TAB TABLET PO (18:41)
[2017-12-15] MEDS: GABAPENTIN 300 MG CAPSULE. PO (18:42)
[2017-12-15] MEDS: INSULIN DETEMIR 300 UNITS/3 ML INSULN.PEN. SQ (20:17)
[2017-12-15 21:25] LABS: POC GLUCOSE 151 mg/dL (70-99)
[2017-12-16 04:35] LABS: ADD MAN DIFF? NO
[2017-12-16 04:41] LABS: BASO % 1 % (0-3); EOS # 0.1 x10^3/uL (0.0-0.7); EOS % 2 % (0-3); HEMATOCRIT 27.6 % (36.0-47.0); HEMOGLOBIN 9.4 g/dL (12.0-15.5); LYMPH # 2.1 x10^3/uL (1.0-4.8); LYMPH % 46 % (24-48); MEAN CORPUSCULAR HEMOGLOBIN 32 pg (25-35); MEAN CORPUSCULAR HGB CONC 34 g/dL (31-37); MEAN CORPUSCULAR VOLUME 93 fL (79-100); MONO # 0.3 x10^3/uL (0.0-1.1); MONO % 7 % (0-9); NEUT % 44 % (31-73); PLATELET COUNT 129 x10^3/uL (140-400); RED BLOOD COUNT 2.96 x10^6/uL (3.50-5.40); WHITE BLOOD COUNT 4.5 x10^3/uL (4.0-11.0)
[2017-12-16 05:00] LABS: ANION GAP 3 (6-14); BLOOD UREA NITROGEN 7 mg/dL (7-20); CALCIUM 8.4 mg/dL (8.5-10.1); CARBON DIOXIDE 36 mmol/L (21-32); CHLORIDE 102 mmol/L (98-107); CREATININE 2.7 mg/dL (0.6-1.0); GFR 17.5; GLUCOSE 92 mg/dL (70-99); POTASSIUM 3.3 mmol/L (3.5-5.1); SODIUM 141 mmol/L (136-145)
[2017-12-16] MEDS: HEPARIN PF for SUB-Q USE 5,000 UNIT/0.5 ML VIAL. SQ ×4 (05:42→21:00)
[2017-12-16] MEDS: INSULIN ASPART 300 UNITS/3 ML INSULN.PEN SQ ×3 (08:00→17:00)
[2017-12-16 08:21] LABS: POC GLUCOSE 114 mg/dL (70-99)
[2017-12-16] MEDS: LACTOBACILLUS RHAMNOSUS GG 1 CAPSULE. PO ×2 (08:29→20:59)
[2017-12-16] MEDS: PSYLLIUM HUSK (SUGAR FREE) 1 PKT PACKET PO ×2 (08:30→20:59)
[2017-12-16 11:19] LABS: POC GLUCOSE 202 mg/dL (70-99)
[2017-12-16 17:42] LABS: POC GLUCOSE 165 mg/dL (70-99)
[2017-12-16] MEDS: INSULIN DETEMIR 300 UNITS/3 ML INSULN.PEN. SQ (21:00)
[2017-12-16] MEDS: GABAPENTIN 300 MG CAPSULE. PO (23:15)
[2017-12-16] MEDS: oxyCODONE/APAP 5/325 1 TAB TABLET PO (23:17)
[2017-12-17 01:51] LABS: POC GLUCOSE 163 mg/dL (70-99)
[2017-12-17] MEDS ORDERED: IV NORMAL SALINE 1000ML BAG 1,000 ML IV ×4 (07:30→07:59)
[2017-12-17] MEDS ORDERED: diphenhydrAMINE 50 MG/ML VIAL IV ×4 (07:45→08:00)
[2017-12-17] MEDS ORDERED: ALBUMIN HUMAN 25% 200 ML IV ×2 (07:45→08:00)
[2017-12-17] MEDS ORDERED: DIALYSIS PATIENT. MC (08:00)
[2017-12-17] MEDS: INSULIN ASPART 300 UNITS/3 ML INSULN.PEN SQ ×2 (08:00→12:00)
[2017-12-17 08:12] LABS: POC GLUCOSE 92 mg/dL (70-99)
[2017-12-17 08:46] LABS: ADD MAN DIFF? NO
[2017-12-17] MEDS: PSYLLIUM HUSK (SUGAR FREE) 1 PKT PACKET PO (09:00)
[2017-12-17] MEDS: LACTOBACILLUS RHAMNOSUS GG 1 CAPSULE. PO (09:00)
[2017-12-17 09:01] LABS: BASO % 1 % (0-3); EOS # 0.1 x10^3/uL (0.0-0.7); EOS % 2 % (0-3); HEMATOCRIT 26.8 % (36.0-47.0); HEMOGLOBIN 9.1 g/dL (12.0-15.5); LYMPH # 2.4 x10^3/uL (1.0-4.8); LYMPH % 54 % (24-48); MEAN CORPUSCULAR HEMOGLOBIN 32 pg (25-35); MEAN CORPUSCULAR HGB CONC 34 g/dL (31-37); MEAN CORPUSCULAR VOLUME 95 fL (79-100); MONO # 0.3 x10^3/uL (0.0-1.1); MONO % 8 % (0-9); NEUT # 1.6 x10^3uL (1.8-7.7); NEUT % 36 % (31-73); PLATELET COUNT 118 x10^3/uL (140-400); RED BLOOD COUNT 2.83 x10^6/uL (3.50-5.40); RED CELL DISTRIBUTION WIDTH 14.9 % (11.5-14.5); WHITE BLOOD COUNT 4.4 x10^3/uL (4.0-11.0)
[2017-12-17 09:15] LABS: ANION GAP 5 (6-14); BLOOD UREA NITROGEN 15 mg/dL (7-20); CALCIUM 8.3 mg/dL (8.5-10.1); CARBON DIOXIDE 33 mmol/L (21-32); CHLORIDE 104 mmol/L (98-107); CREATININE 3.8 mg/dL (0.6-1.0); GFR 11.8; GLUCOSE 96 mg/dL (70-99); POTASSIUM 3.4 mmol/L (3.5-5.1); SODIUM 142 mmol/L (136-145)
[2017-12-17] MEDS: LIDOCAINE 1% PF 2 ML VIAL. ID (09:18)
== END 2017-12-17 14:50 | disposition home or self-care (01) | DRG 871 ==
LOC: ER 15:20 → 6 SOUTH 17:05
PROC: 5A1D70Z Performance of Urinary Filtration, Intermittent, Less than 6 Hours Per Day (ICD-10-PCS; principal; 2017-12-05)
PROC: 5A1D70Z Performance of Urinary Filtration, Intermittent, Less than 6 Hours Per Day (ICD-10-PCS; 2017-12-06)
PROC: 5A1D70Z Performance of Urinary Filtration, Intermittent, Less than 6 Hours Per Day (ICD-10-PCS; 2017-12-08)
DX: A41.9 Sepsis, unspecified organism (principal); N18.6 End stage renal disease; I13.2 Hypertensive heart and chronic kidney disease with heart failure and with stage 5 chronic kidney disease, or end stage renal disease; D61.818 Other pancytopenia; J18.9 Pneumonia, unspecified organism; A04.72 Enterocolitis due to Clostridium difficile, not specified as recurrent; E11.22 Type 2 diabetes mellitus with diabetic chronic kidney disease; C90.00 Multiple myeloma not having achieved remission; E44.1 Mild protein-calorie malnutrition; I27.20 Pulmonary hypertension, unspecified; I48.0 Paroxysmal atrial fibrillation; B34.9 Viral infection, unspecified; J40 Bronchitis, not specified as acute or chronic; E87.6 Hypokalemia; E66.01 Morbid (severe) obesity due to excess calories; E11.42 Type 2 diabetes mellitus with diabetic polyneuropathy; M10.9 Gout, unspecified; M19.90 Unspecified osteoarthritis, unspecified site; E83.59 Other disorders of calcium metabolism; F32.9 Major depressive disorder, single episode, unspecified; F41.9 Anxiety disorder, unspecified; I50.9 Heart failure, unspecified; I89.0 Lymphedema, not elsewhere classified; K21.9 Gastro-esophageal reflux disease without esophagitis; K76.9 Liver disease, unspecified; Z79.4 Long term (current) use of insulin; Z82.49 Family history of ischemic heart disease and other diseases of the circulatory system; Z90.49 Acquired absence of other specified parts of digestive tract; Z90.710 Acquired absence of both cervix and uterus; Z98.84 Bariatric surgery status; Z99.2 Dependence on renal dialysis; Z87.440 Personal history of urinary (tract) infections; Z68.32 Body mass index [BMI] 32.0-32.9, adult; Z79.01 Long term (current) use of anticoagulants
CPT/HCPCS: 36415; 71045; 80048; 80053; 80069; 80202; 82607; 82962; 83540; 83550; 83690; 83735; 83880; 84100; 84484; 85018; 85025; 85027; 86706; 87040; 87070; 87205; 87324; 87340; 93005; 94640; 94667; 96365; 96375; 97110-GO; 97110-GP; 97116-GP; 97162-GP; 97165-GO; 97168-GO; 97530-GO; 97530-GP; 97535-GO; 99285; 99285-25; J0692; J1815; J3370; J7620

== ENCOUNTER 2018-10-08 14:21 | Observation (INO) | payer OTHER ==
[~2018-10-08] VITALS: Ht 167.6 cm; Wt 96.6 kg
[~2018-10-08 14:21] MED LIST changes: +ASPI325T8 PO; +CARV12.511 PO; -CARV12.52 PO; +CARV3.1210 PO; +CARV6.2511 PO; -CARV6.252 PO; +CHOL100013 PO; +CHOL10003 PO; -GABA-586 PO; +GABA300C18 PO; +GLIM4TAB PO; +HYDR-3164 PO; -HYDR-971 PO; +LACT1CAP19 PO; +LIDO700A21 TP; +LISI-130 PO; -LISI40TA PO; +LOPE2CAP PO; +MECL12.52 PO; +OMEP20CA10 PO; -OMEP20CA9 PO; +OXYC-411 PO; +OXYC1TAB15 PO; -OXYC1TAB9 PO; +PANT40TA77 PO; +POTA10TA12 PO; -POTA10TA5 PO; +VANC1VIA3 MC; +[UNRECOGNIZED DRUG - CODE] IV/SQ; +flexeril PO
[2018-10-08 17:07] VITALS: BP 134/43
--- NOTE | 2018-10-08 18:30 | NUR ---
Patient received to room 528 per [place] per EMS at 1705 direct admit. Patient entered into system at 1745 by admitting. Patient moved to bed at 1705 per EMS. Patient alert and oriented times four. Side rails up times two, call light at hand. Patient verb. understanding orientation to room and unit. Patient received patient information hospital folder with code for release of information to family and friends. Patient verb. understanding fall protocol and fall contract witnessed. See admission, nursing communication and orders. Dr. Argueta notified for admitting orders.
[2018-10-08 19:00] VITALS: BP 136/53
[2018-10-08] MEDS ORDERED: oxyCODONE/APAP 5/325 1 TAB TABLET PO PRN (19:30)
[2018-10-08] MEDS ORDERED: GABAPENTIN 300 MG CAPSULE. PO PRN (19:30)
[2018-10-08] MEDS ORDERED: ONDANSETRON PF 4 MG/2 ML VIAL. IV PRN (19:30)
[2018-10-08] MEDS ORDERED: ONDANSETRON ODT 4 MG TAB.RAPDIS. PO PRN (19:30)
[2018-10-08] MEDS ORDERED: diphenhydrAMINE HCL 25 MG CAPSULE PO PRN (19:30)
[2018-10-08] MEDS ORDERED: TEMAZEPAM 7.5 MG CAPSULE PO PRN (19:30)
[2018-10-08] MEDS ORDERED: DEXTROSE 50% 25 GM / 50ML DISP.SYRIN. IV PRN (19:30)
[2018-10-08] MEDS ORDERED: NON FORMULARY ITEM (Insulin Lispro (Humalog) 100 UNIT) SQ PRN (19:30)
[2018-10-08] MEDS ORDERED: ACETAMINOPHEN 500 MG TABLET PO PRN (19:30)
[2018-10-08] MEDS ORDERED: ACETAMINOPHEN 325 MG TABLET. PO PRN (19:30)
[2018-10-08] MEDS: LIDOCAINE/PRILOCAINE TOPICAL CREAM 5GM TUBE. TP ONE ×2 (19:45→21:42)
--- NOTE | 2018-10-08 21:00 | NUR ---
Pt stated that the only way to get an IV access in her is to get lidocaine injection. Dr. Argueta notified, order received for lidocaine ointment. Pt refused the ointment. Orders received for anesthesia stick with lidocaine injection in the morning. Order also received for the okay to do blood transfusion 1 unit PRBC in dialysis tomorrow. Will continue to monitor pt closely. Addendum: 10/09/18 at 0300 by LEONEL CALABRESE RN Pt refused 0 vitals. Will continue to monitor pt closely.
[2018-10-08] MEDS: silver sulfADIAZINE 1% CREAM 25GM TUBE. TP SCH ×2 (21:50→22:40)
[2018-10-08 23:00] VITALS: BP 119/53
[2018-10-09 03:49] VITALS: BP 114/39
[2018-10-09 07:00] VITALS: BP 100/76
[2018-10-09 07:22] LABS: CALCIUM 8.5 mg/dL (8.5-10.1); CREATININE 6.2 mg/dL (0.6-1.0); GFR 6.7; POTASSIUM 4.2 mmol/L (3.5-5.1)
[2018-10-09 07:35] LABS: BASO % 0 % (0-3); EOS # 0.1 x10^3/uL (0.0-0.7); EOS % 1 % (0-3); HEMATOCRIT 22.2 % (36.0-47.0); HEMOGLOBIN 7.2 g/dL (12.0-15.5); LYMPH % 30 % (24-48); MEAN CORPUSCULAR HEMOGLOBIN 31 pg (25-35); MEAN CORPUSCULAR HGB CONC 32 g/dL (31-37); MEAN CORPUSCULAR VOLUME 95 fL (79-100); MONO # 0.3 x10^3/uL (0.0-1.1); MONO % 5 % (0-9); NEUT # 4.4 x10^3uL (1.8-7.7); NEUT % 64 % (31-73); PLATELET COUNT 146 x10^3/uL (140-400); RED BLOOD COUNT 2.35 x10^6/uL (3.50-5.40); RED CELL DISTRIBUTION WIDTH 16.9 % (11.5-14.5); WHITE BLOOD COUNT 6.9 x10^3/uL (4.0-11.0)
[2018-10-09] MEDS: INSULIN LISPRO 300 UNITS/3 ML INSULN.PEN. SQ SCH ×3 (08:00→17:00)
[2018-10-09] MEDS: silver sulfADIAZINE 1% CREAM 25GM TUBE. TP SCH (09:40)
[2018-10-09] MEDS ORDERED: IV NORMAL SALINE 1000ML BAG 1,000 ML IV PRN ×3 (10:42→13:00)
[2018-10-09] MEDS ORDERED: DIALYSIS PATIENT. MC PRN ×2 (10:45)
--- NOTE | 2018-10-09 10:48 | PDOC1 ---
History and Physical Date of Admission Date of Admission DATE: 10/09/18 TIME: 10:46 Identification/Chief Complaint Chief Complaint sent here for transfusion from [facility] on dialysis is to have transfusion and go home after, pATIENT insists she feels ok, want to go home tonight, She denies rectal blood loss, PUB, ETC denies SOA, was told by home health nurse to go to hospital for hgb of 6.9 Past Medical History Past Medical History Past Medical History Cardiovascular: AFIB, CHF, HTN Pulmonary: Other CENTRAL NERVOUS SYSTEM: Periperal neuropathy GI: GERD Heme/Onc: Other Hepatobiliary: Other Psych: Anxiety, Depression Musculoskeletal: Osteoarthritis Rheumatologic: Gout Renal/: Chronic renal failure, UTI Endocrine: Diabetes Past Surgical History Past Surgical History: Appendectomy, Cholecystectomy, , Hernia Repair , Tonsillectomy, Hysterectomy, Other, No pertinent history Family History Family History: Cancer, Coronary Artery Disease Social History ALCOHOL: none Drugs: None Cardiovascular: AFIB, CHF, HTN Pulmonary: Pneumonia, Other CENTRAL NERVOUS SYSTEM: Periperal neuropathy GI: GERD, Other Heme/Onc: Anemia NOS Hepatobiliary: Other Psych: Anxiety, Depression Musculoskeletal: Osteoarthritis, Other Rheumatologic: Gout Renal/: Chronic renal failure, Urinary Incontinence, Hematuria Endocrine: Diabetes, Hyperparathyroidism Past Surgical History Past Surgical History: Appendectomy, Cholecystectomy, Cataract Removal, C- Section, Hernia Repair, Tonsillectomy, Colon Resection, Other Family History Family History: Cancer, Coronary Artery Disease Social History Smoke: No ALCOHOL: none Drugs: None Current Medications Current Medications Current Medications Acetaminophen (Tylenol) 650 mg 1X PRN PRN PO PRE-TRANSFUSION; Start 10/08/18 at 19:30 Diphenhydramine HCl (Benadryl) 25 mg PRN 1X PRN PO PRE-TRANSFUSION; Start at 19:30 Gabapentin (Neurontin) 300 mg PRN TID PRN PO SEE COMMENTS Last administered on 10/08/18at 22:38; Start 10/08/18 at 19:30 Oxycodone/ Acetaminophen (Percocet 5/325) 1 tab PRN Q6HRS PRN PO PAIN; Start at 19:30 Non-Formulary Medication (Insulin Lispro (Humalog)) 100 unit TIDAC PRN SQ blood sugar; Start 10/08/18 at 19:30; Status UNV Temazepam (Restoril) 7.5 mg PRN QHS PRN PO INSOMNIA; Start 10/08/18 at 19:30 Insulin Human Lispro (HumaLOG) 0-9 UNITS TIDWMEALS SQ ; Start 10/09/18 at 08:00 Dextrose (Dextrose 50%-Water Syringe) 12.5 gm PRN Q15MIN PRN IV SEE COMMENTS; Start 10/08/18 at 19:30 Acetaminophen (Tylenol) 500 mg PRN Q6HRS PRN PO MILD PAIN / TEMP; Start at 19:30 Ondansetron HCl (Zofran) 4 mg PRN Q6HRS PRN IV NAUSEA/VOMITING; Start 10/08/18 at 19:30 Ondansetron HCl (Zofran Odt) 4 mg PRN Q6HRS PRN PO NAUSEA/VOMITING; Start at 19:30 Lidocaine/ Prilocaine (Emla) 1 katia 1X ONCE TP ; Start 10/08/18 at 19:45; Stop at 19:46; Status DC Silver Sulfadiazine (Silvadene) 1 katia DAILY TP Last administered on 10/09/18at 09 :40; Start 10/08/18 at 19:45 Sodium Chloride 1,000 ml @ 1,000 mls/hr Q1H PRN IV hypotension; Start 10/09/18 at 10:42; Stop 10/09/18 at 16:41 Sodium Chloride 1,000 ml @ 400 mls/hr Q2H30M PRN IV PATENCY; Start 10/09/18 at 10:42; Stop 10/09/18 at 22:41 Info (PHARMACY MONITORING -- do not chart) 1 each PRN DAILY PRN MC SEE COMMENTS ; Start 10/09/18 at 10:45; Status UNV Info (PHARMACY MONITORING -- do not chart) 1 each PRN DAILY PRN MC SEE COMMENTS ; Start 10/09/18 at 10:45 Active Scripts Active Reported Humalog (Insulin Lispro) 100 Unit/1 Ml Cartridge 100 Unit SQ TIDAC PRN Percocet 5-325 Mg Tablet (Oxycodone/Acetaminophen) 1 Each Tablet 1 Tab PO PRN Q6HRS PRN Gabapentin (Gabapentin) 300 Mg Capsule 300 Mg PO PRN TID PRN Allergies Allergies: Coded Allergies: No Known Drug Allergies (Unverified , 05/25/17) ROS General: No: Chills, Night Sweats, Fatigue, Malaise, Appetite, Other PSYCHOLOGICAL ROS: No: Anxiety, Behavioral Disorder, Concentration difficultie , Decreased libido, Depression, Disorientation, Hallucinations, Hostility, Irritablity, Memory difficulties, Mood Swings, Obsessive thoughts, Physical abuse, Sexual abuse, Sleep disturbances, Suicidal ideation, Other Eyes: No Blurry vision, No Decreased vision, No Double vision, No Dry eyes, No Excessive tearing, No Eye Pain, No Itchy Eyes, No Loss of vision, No Photophobia , No Scotomata, No Uses contacts, No Uses glasses, No Other HEENT: No: Heacaches, Visual Changes, Hearing change, Nasal congestion, Nasal discharge, Oral lesions, Sinus pain, Sore Throat, Epistaxis, Sneezing, Snoring, Tinnitus, Vertigo, Vocal changes, Other Hematological and Lymphatic: No: Bleeding Problems, Blood Clots, Blood Transfusions, Brusing, Night Sweats, Pallor, Swollen Lymph Nodes, Other ENDOCRINE: No: Breast Changes, Galactorrhea, Hair Pattern Changes, Hot Flashes , Malaise/lethargy, Mood Swings, Palpitations, Polydipsia/polyuria, Skin Changes , Temperature Intolerance, Unexpected Weight Changes, Other Respiratory: No: Cough, Hemoptysis, Orthopnea, Pleuritic Pain, Shortness of breath, SOB with excertion, Sputum Changes, Stridor, Tachypnea, Wheezing, Other Cardiovascular: No Chest Pain, No Palpitations, No Orthopnea, No Paroxysmal Noc. Dyspnea, No Edema, No Lt Headedness, No Other Gastrointestinal: No Nausea, No Vomiting, No Abdominal Pain, No Diarrhea, No Constipation, No Melena, No Hematochezia, No Other Skin: Yes Rash Physical Exam General: Alert, Oriented X3, Cooperative, No acute distress HEENT: Atraumatic, PERRLA, EOMI, Mucous membr. moist/pink Lungs: Clear to auscultation, Normal air movement Heart: irregularly irregular Breasts: Not examined Rectal Exam: not examined PELVIC: Examination not indicated Extremities: No edema Neuro: Normal speech, Cranial nerves 3-12 NL Psych/Mental Status: Mental status NL, Mood NL Vitals Vitals Vital Signs Date Time Temp Pulse Resp B/P (MAP) Pulse Ox O2 Delivery O2 Flow Rate FiO2 10/09/18 08:00 Non-Rebreather 10/09/18 07:00 97.7 71 18 100/76 (84) 96 97.7 Labs Labs Laboratory Tests Test 10/08/18 20:51 10/09/18 06:21 10/09/18 07:46 Glucose (Fingerstick) 184 mg/dL (70-99) 141 mg/dL (70-99) White Blood Count 6.9 x10^3/uL (4.0-11.0) Red Blood Count 2.35 x10^6/uL (3.50-5.40) Hemoglobin 7.2 g/dL (12.0-15.5) Hematocrit 22.2 % (36.0-47.0) Mean Corpuscular Volume 95 fL (79-100) Mean Corpuscular Hemoglobin 31 pg (25-35) Mean Corpuscular Hemoglobin Concent 32 g/dL (31-37) Red Cell Distribution Width 16.9 % (11.5-14.5) Platelet Count 146 x10^3/uL (140-400) Neutrophils (%) (Auto) 64 % (31-73) Lymphocytes (%) (Auto) 30 % (24-48) Monocytes (%) (Auto) 5 % (0-9) Eosinophils (%) (Auto) 1 % (0-3) Basophils (%) (Auto) 0 % (0-3) Neutrophils # (Auto) 4.4 x10^3uL (1.8-7.7) Lymphocytes # (Auto) 2.0 x10^3/uL (1.0-4.8) Monocytes # (Auto) 0.3 x10^3/uL (0.0-1.1) Eosinophils # (Auto) 0.1 x10^3/uL (0.0-0.7) Basophils # (Auto) 0.0 x10^3/uL (0.0-0.2) Sodium Level 141 mmol/L (136-145) Potassium Level 4.2 mmol/L (3.5-5.1) Chloride Level 101 mmol/L (98-107) Carbon Dioxide Level 27 mmol/L (21-32) Anion Gap 13 (6-14) Blood Urea Nitrogen 25 mg/dL (7-20) Creatinine 6.2 mg/dL (0.6-1.0) Estimated GFR (Cockcroft-Gault) 6.7 Glucose Level 156 mg/dL (70-99) Calcium Level 8.5 mg/dL (8.5-10.1) Laboratory Tests Test 10/08/18 20:51 10/09/18 06:21 10/09/18 07:46 Glucose (Fingerstick) 184 mg/dL (70-99) 141 mg/dL (70-99) White Blood Count 6.9 x10^3/uL (4.0-11.0) Red Blood Count 2.35 x10^6/uL (3.50-5.40) Hemoglobin 7.2 g/dL (12.0-15.5) Hematocrit 22.2 % (36.0-47.0) Mean Corpuscular Volume 95 fL (79-100) Mean Corpuscular Hemoglobin 31 pg (25-35) Mean Corpuscular Hemoglobin Concent 32 g/dL (31-37) Red Cell Distribution Width 16.9 % (11.5-14.5) Platelet Count 146 x10^3/uL (140-400) Neutrophils (%) (Auto) 64 % (31-73) Lymphocytes (%) (Auto) 30 % (24-48) Monocytes (%) (Auto) 5 % (0-9) Eosinophils (%) (Auto) 1 % (0-3) Basophils (%) (Auto) 0 % (0-3) Neutrophils # (Auto) 4.4 x10^3uL (1.8-7.7) Lymphocytes # (Auto) 2.0 x10^3/uL (1.0-4.8) Monocytes # (Auto) 0.3 x10^3/uL (0.0-1.1) Eosinophils # (Auto) 0.1 x10^3/uL (0.0-0.7) Basophils # (Auto) 0.0 x10^3/uL (0.0-0.2) Sodium Level 141 mmol/L (136-145) Potassium Level 4.2 mmol/L (3.5-5.1) Chloride Level 101 mmol/L (98-107) Carbon Dioxide Level 27 mmol/L (21-32) Anion Gap 13 (6-14) Blood Urea Nitrogen 25 mg/dL (7-20) Creatinine 6.2 mg/dL (0.6-1.0) Estimated GFR (Cockcroft-Gault) 6.7 Glucose Level 156 mg/dL (70-99) Calcium Level 8.5 mg/dL (8.5-10.1) VTE Prophylaxis Ordered VTE Prophylaxis Devices: Contraindicated VTE Pharmacological Prophylaxi: Yes Assessment/Plan Assessment/Plan impression ESRD on dialysis VERTIGO-VESTIBULAR DISEASE ANEMIA DM II HTN NON COMPLIANCE Moderate pulmonary hypertension PLAN Admit observation transfuse, h/h 4 hrs post transfusion nephrology consult home meds occult stools retic count fe panel scd's MIKE AGUIRRE MD Oct 09, 2018 10:48
[2018-10-09 11:00] VITALS: BP 104/38
--- NOTE | 2018-10-09 12:36 | NUR ---
Patient refusing 5 units of insulin for blood sugar of 221. Educated patient about need for insulin. Still refused. Will continue to monitor.
[2018-10-09 14:35] VITALS: BP 113/46
[2018-10-09 14:50] VITALS: BP 112/44
[2018-10-09 15:07] VITALS: BP 137/43
[2018-10-09 18:46] LABS: BASO # 0.1 x10^3/uL (0.0-0.2); BASO % 1 % (0-3); EOS # 0.1 x10^3/uL (0.0-0.7); EOS % 1 % (0-3); HEMATOCRIT 27.6 % (36.0-47.0); HEMOGLOBIN 8.9 g/dL (12.0-15.5); LYMPH # 1.6 x10^3/uL (1.0-4.8); LYMPH % 20 % (24-48); MEAN CORPUSCULAR HEMOGLOBIN 31 pg (25-35); MEAN CORPUSCULAR HGB CONC 32 g/dL (31-37); MEAN CORPUSCULAR VOLUME 94 fL (79-100); MONO # 0.4 x10^3/uL (0.0-1.1); MONO % 5 % (0-9); NEUT # 6.1 x10^3uL (1.8-7.7); NEUT % 73 % (31-73); PLATELET COUNT 164 x10^3/uL (140-400); RED BLOOD COUNT 2.93 x10^6/uL (3.50-5.40); RED CELL DISTRIBUTION WIDTH 16.2 % (11.5-14.5); WHITE BLOOD COUNT 8.3 x10^3/uL (4.0-11.0)
--- NOTE | 2018-10-09 19:15 | NUR ---
Pt refused to leave telemonitor on at this time. Education was given but pt still refused. Will continue to monitor pt closely. Addendum: 10/09/18 at 2037 by LEONEL CALABRESE RN Pt refused 1900 vitals and refused FSBS tonight. Pt stated, "No, you're not, I am asleep!" Will continue to monitor pt. Addendum: 10/10/18 at 0407 by LEONEL CALABRESE RN Pt continue to refused telemonitor, refused all vitals tonight. Pt stated that she is asleep and do not need us to bother her with any interventions. Will continue to monitor pt.
--- NOTE | 2018-10-09 20:16 | CONS ---
DATE OF CONSULTATION: REASON FOR CONSULTATION: Renal failure. HISTORY OF PRESENT ILLNESS: A 68-year-old female who is admitted with anemia. Hemoglobin was 6.9 on presentation. The patient denies feeling poorly. She denies chest pain or shortness of breath or weakness. No GI blood loss noted. PAST MEDICAL HISTORY: Diabetes mellitus, end-stage renal disease, hemodialysis dependent, anemia of chronic kidney disease, secondary hyperparathyroidism of renal disease, atrial fibrillation, congestive cardiomyopathy, peripheral neuropathy, GE reflux disease, depression, osteoarthritis, gout. PAST SURGICAL HISTORY: Appendectomy, cholecystectomy, , hernia repair, tonsillectomy, hysterectomy, vascular access placement. ALLERGIES: None. MEDICATIONS: Reviewed from med list. FAMILY HISTORY: Noncontributory for renal disease. SOCIAL HISTORY: The patient resides independently. REVIEW OF SYSTEMS: No headache, sinus problem, nasal drainage, epistaxis, change in vision or hearing. No difficulty swallowing. No fever, chills, cough, sputum production, or hemoptysis. No chest pain, shortness of breath, PND, orthopnea, dyspnea on exertion. No abdominal pain. No nausea, vomiting, diarrhea, seizures or malignancies. PHYSICAL EXAMINATION: GENERAL: The patient awake, conversant. HEENT: Clear, sallow complexion. NECK: No increased JVD. No thyromegaly, mass, or adenopathy. LUNGS: Clear. CARDIAC: Without S3 or rub. ABDOMEN: Soft, nontender, no bruits. EXTREMITIES: Trace lower extremity edema. NEUROLOGIC: Nonfocal localizing. PSYCHIATRIC: Very dysphoric. LABORATORY DATA: Hemoglobin 7.2, hematocrit 22%. Potassium 4.2, CO2 of 27, creatinine 6.2, GFR 6.7. IMPRESSION: 1. End-stage renal disease secondary to diabetic nephropathy. 2. Anemia -- for transfusion. PLAN: The patient evaluated on dialysis, tolerating well. She is to receive packed red blood cells. CHEVY REYES MD DR: KELVIN/isaac JOB#: [id number] / [id number]
[2018-10-10 07:00] VITALS: BP 113/53
[2018-10-10] MEDS: INSULIN LISPRO 300 UNITS/3 ML INSULN.PEN. SQ SCH (07:45)
[2018-10-10] MEDS: silver sulfADIAZINE 1% CREAM 25GM TUBE. TP SCH (09:00)
--- NOTE | 2018-10-10 10:01 | PDOC ---
PROGRESS NOTES History of Present Illness History of Present Illness Assessment/Plan Assessment/Plan impression ESRD on dialysis VERTIGO-VESTIBULAR DISEASE ANEMIA DM II HTN NON COMPLIANCE Moderate pulmonary hypertension PLAN Admit observation transfuse, h/h 4 hrs post transfusion nephrology consult home meds occult stools pt refuses to stay for stool specimen today AMA, concern for gi blood loss retic count fe panel scd's Vitals Vitals Vital Signs Date Time Temp Pulse Resp B/P (MAP) Pulse Ox O2 Delivery O2 Flow Rate FiO2 10/10/18 07:37 Room Air 10/10/18 07:00 98.7 98 20 113/53 (73) 94 98.7 Physical Exam General: Alert, Oriented X3, Cooperative, No acute distress Heart: Regular rate, No murmurs Lungs: Clear, Other Abdomen: Normal bowel sounds Extremities: No cyanosis, No edema Labs LABS Laboratory Tests Test 10/09/18 11:35 10/09/18 17:35 10/09/18 18:35 Glucose (Fingerstick) 221 mg/dL (70-99) 109 mg/dL (70-99) White Blood Count 8.3 x10^3/uL (4.0-11.0) Red Blood Count 2.93 x10^6/uL (3.50-5.40) Hemoglobin 8.9 g/dL (12.0-15.5) Hematocrit 27.6 % (36.0-47.0) Mean Corpuscular Volume 94 fL (79-100) Mean Corpuscular Hemoglobin 31 pg (25-35) Mean Corpuscular Hemoglobin Concent 32 g/dL (31-37) Red Cell Distribution Width 16.2 % (11.5-14.5) Platelet Count 164 x10^3/uL (140-400) Neutrophils (%) (Auto) 73 % (31-73) Lymphocytes (%) (Auto) 20 % (24-48) Monocytes (%) (Auto) 5 % (0-9) Eosinophils (%) (Auto) 1 % (0-3) Basophils (%) (Auto) 1 % (0-3) Neutrophils # (Auto) 6.1 x10^3uL (1.8-7.7) Lymphocytes # (Auto) 1.6 x10^3/uL (1.0-4.8) Monocytes # (Auto) 0.4 x10^3/uL (0.0-1.1) Eosinophils # (Auto) 0.1 x10^3/uL (0.0-0.7) Basophils # (Auto) 0.1 x10^3/uL (0.0-0.2) Reticulocyte Count (auto) 2.9 % (0.5-2.5) Iron Level 97 ug/dL (50-170) Total Iron Binding Capacity 161 ug/dL (250-450) Iron Saturation 60 % (15-34) Comment Review of Relevant I have reviewed the following items kai (where applicable) has been applied. Labs Laboratory Tests Test 10/08/18 20:51 10/09/18 06:21 10/09/18 07:46 10/09/18 11:35 Glucose (Fingerstick) 184 mg/dL (70-99) 141 mg/dL (70-99) 221 mg/dL (70-99) White Blood Count 6.9 x10^3/uL (4.0-11.0) Red Blood Count 2.35 x10^6/uL (3.50-5.40) Hemoglobin 7.2 g/dL (12.0-15.5) Hematocrit 22.2 % (36.0-47.0) Mean Corpuscular Volume 95 fL (79-100) Mean Corpuscular Hemoglobin 31 pg (25-35) Mean Corpuscular Hemoglobin Concent 32 g/dL (31-37) Red Cell Distribution Width 16.9 % (11.5-14.5) Platelet Count 146 x10^3/uL (140-400) Neutrophils (%) (Auto) 64 % (31-73) Lymphocytes (%) (Auto) 30 % (24-48) Monocytes (%) (Auto) 5 % (0-9) Eosinophils (%) (Auto) 1 % (0-3) Basophils (%) (Auto) 0 % (0-3) Neutrophils # (Auto) 4.4 x10^3uL (1.8-7.7) Lymphocytes # (Auto) 2.0 x10^3/uL (1.0-4.8) Monocytes # (Auto) 0.3 x10^3/uL (0.0-1.1) Eosinophils # (Auto) 0.1 x10^3/uL (0.0-0.7) Basophils # (Auto) 0.0 x10^3/uL (0.0-0.2) Sodium Level 141 mmol/L (136-145) Potassium Level 4.2 mmol/L (3.5-5.1) Chloride Level 101 mmol/L (98-107) Carbon Dioxide Level 27 mmol/L (21-32) Anion Gap 13 (6-14) Blood Urea Nitrogen 25 mg/dL (7-20) Creatinine 6.2 mg/dL (0.6-1.0) Estimated GFR (Cockcroft-Gault) 6.7 Glucose Level 156 mg/dL (70-99) Calcium Level 8.5 mg/dL (8.5-10.1) Test 10/09/18 17:35 10/09/18 18:35 Glucose (Fingerstick) 109 mg/dL (70-99) White Blood Count 8.3 x10^3/uL (4.0-11.0) Red Blood Count 2.93 x10^6/uL (3.50-5.40) Hemoglobin 8.9 g/dL (12.0-15.5) Hematocrit 27.6 % (36.0-47.0) Mean Corpuscular Volume 94 fL (79-100) Mean Corpuscular Hemoglobin 31 pg (25-35) Mean Corpuscular Hemoglobin Concent 32 g/dL (31-37) Red Cell Distribution Width 16.2 % (11.5-14.5) Platelet Count 164 x10^3/uL (140-400) Neutrophils (%) (Auto) 73 % (31-73) Lymphocytes (%) (Auto) 20 % (24-48) Monocytes (%) (Auto) 5 % (0-9) Eosinophils (%) (Auto) 1 % (0-3) Basophils (%) (Auto) 1 % (0-3) Neutrophils # (Auto) 6.1 x10^3uL (1.8-7.7) Lymphocytes # (Auto) 1.6 x10^3/uL (1.0-4.8) Monocytes # (Auto) 0.4 x10^3/uL (0.0-1.1) Eosinophils # (Auto) 0.1 x10^3/uL (0.0-0.7) Basophils # (Auto) 0.1 x10^3/uL (0.0-0.2) Reticulocyte Count (auto) 2.9 % (0.5-2.5) Iron Level 97 ug/dL (50-170) Total Iron Binding Capacity 161 ug/dL (250-450) Iron Saturation 60 % (15-34) Laboratory Tests Test 10/09/18 11:35 10/09/18 17:35 10/09/18 18:35 Glucose (Fingerstick) 221 mg/dL (70-99) 109 mg/dL (70-99) White Blood Count 8.3 x10^3/uL (4.0-11.0) Red Blood Count 2.93 x10^6/uL (3.50-5.40) Hemoglobin 8.9 g/dL (12.0-15.5) Hematocrit 27.6 % (36.0-47.0) Mean Corpuscular Volume 94 fL (79-100) Mean Corpuscular Hemoglobin 31 pg (25-35) Mean Corpuscular Hemoglobin Concent 32 g/dL (31-37) Red Cell Distribution Width 16.2 % (11.5-14.5) Platelet Count 164 x10^3/uL (140-400) Neutrophils (%) (Auto) 73 % (31-73) Lymphocytes (%) (Auto) 20 % (24-48) Monocytes (%) (Auto) 5 % (0-9) Eosinophils (%) (Auto) 1 % (0-3) Basophils (%) (Auto) 1 % (0-3) Neutrophils # (Auto) 6.1 x10^3uL (1.8-7.7) Lymphocytes # (Auto) 1.6 x10^3/uL (1.0-4.8) Monocytes # (Auto) 0.4 x10^3/uL (0.0-1.1) Eosinophils # (Auto) 0.1 x10^3/uL (0.0-0.7) Basophils # (Auto) 0.1 x10^3/uL (0.0-0.2) Reticulocyte Count (auto) 2.9 % (0.5-2.5) Iron Level 97 ug/dL (50-170) Total Iron Binding Capacity 161 ug/dL (250-450) Iron Saturation 60 % (15-34) Medications Current Medications Acetaminophen (Tylenol) 650 mg 1X PRN PRN PO PRE-TRANSFUSION; Start 10/08/18 at 19:30 Diphenhydramine HCl (Benadryl) 25 mg PRN 1X PRN PO PRE-TRANSFUSION; Start at 19:30 Gabapentin (Neurontin) 300 mg PRN TID PRN PO SEE COMMENTS Last administered on 10/08/18at 22:38; Start 10/08/18 at 19:30 Oxycodone/ Acetaminophen (Percocet 5/325) 1 tab PRN Q6HRS PRN PO MODERATE PAIN , SEVERE PAIN; Start 10/08/18 at 19:30 Non-Formulary Medication (Insulin Lispro (Humalog)) 100 unit TIDAC PRN SQ blood sugar; Start 10/08/18 at 19:30; Status UNV Temazepam (Restoril) 7.5 mg PRN QHS PRN PO INSOMNIA; Start 10/08/18 at 19:30 Insulin Human Lispro (HumaLOG) 0-9 UNITS TIDWMEALS SQ ; Start 10/09/18 at 08:00 Dextrose (Dextrose 50%-Water Syringe) 12.5 gm PRN Q15MIN PRN IV SEE COMMENTS; Start 10/08/18 at 19:30 Acetaminophen (Tylenol) 500 mg PRN Q6HRS PRN PO MILD PAIN / TEMP; Start at 19:30 Ondansetron HCl (Zofran) 4 mg PRN Q6HRS PRN IV NAUSEA/VOMITING; Start 10/08/18 at 19:30 Ondansetron HCl (Zofran Odt) 4 mg PRN Q6HRS PRN PO NAUSEA/VOMITING; Start at 19:30 Lidocaine/ Prilocaine (Emla) 1 katia 1X ONCE TP ; Start 10/08/18 at 19:45; Stop at 19:46; Status DC Silver Sulfadiazine (Silvadene) 1 katia DAILY TP Last administered on 10/09/18at 09 :40; Start 10/08/18 at 19:45 Sodium Chloride 1,000 ml @ 1,000 mls/hr Q1H PRN IV hypotension; Start 10/09/18 at 10:42; Stop 10/09/18 at 16:41; Status DC Sodium Chloride 1,000 ml @ 400 mls/hr Q2H30M PRN IV PATENCY; Start 10/09/18 at 10:42; Stop 10/09/18 at 22:41; Status DC Info (PHARMACY MONITORING -- do not chart) 1 each PRN DAILY PRN MC SEE COMMENTS ; Start 10/09/18 at 10:45; Status UNV Info (PHARMACY MONITORING -- do not chart) 1 each PRN DAILY PRN MC SEE COMMENTS ; Start 10/09/18 at 10:45 Sodium Chloride 1,000 ml @ 400 mls/hr Q2H30M PRN IV PATENCY; Start 10/09/18 at 13:00; Stop 10/10/18 at 00:59; Status DC Active Scripts Active Reported Humalog (Insulin Lispro) 100 Unit/1 Ml Cartridge 100 Unit SQ TIDAC PRN Percocet 5-325 Mg Tablet (Oxycodone/Acetaminophen) 1 Each Tablet 1 Tab PO PRN Q6HRS PRN Gabapentin (Gabapentin) 300 Mg Capsule 300 Mg PO PRN TID PRN Vitals/I & O Vital Sign - Last 24 Hours 10/09/18 10/09/18 10/09/18 10/09/18 11:00 14:35 14:50 15:07 Temp 99.0 97.8 97.9 98.7 99.0 97.8 97.9 98.7 Pulse 85 84 88 77 Resp 18 18 18 18 B/P (MAP) 104/38 (60) 113/46 112/44 137/43 Pulse Ox 96 O2 Delivery Room Air 10/09/18 10/10/18 10/10/18 19:33 07:00 07:37 Temp 98.7 98.7 Pulse 98 Resp 20 B/P (MAP) 113/53 (73) Pulse Ox 94 O2 Delivery Room Air Room Air Room Air Intake and Output 10/09/18 10/09/18 10/10/18 15:01 23:01 07:01 Intake Total 350 ml 470 ml 0 ml Balance 350 ml 470 ml 0 ml MIKE AGUIRRE MD Oct 10, 2018 10:01
--- NOTE | 2018-10-10 11:37 | PDOC3 ---
Discharge Summary Date of Admission: Oct 09, 2018 Date of Discharge: Oct 10, 2018 Follow-Up: 1-2 days Admitting Diagnosis comment: discharge dx Assessment/Plan impression ESRD on dialysis VERTIGO-VESTIBULAR DISEASE ANEMIA DM II HTN NON COMPLIANCE Moderate pulmonary hypertension PLAN Admit observation transfuse, h/h 4 hrs post transfusion nephrology consult home meds occult stools pt refuses to stay for stool specimen today AMA, concern for gi blood loss retic count fe panel scd's Vitals Vitals Vital Signs Date Time Temp Pulse Resp B/P (MAP) Pulse Ox O2 Delivery O2 Flow Rate FiO2 10/10/18 07:37 Room Air 10/10/18 07:00 98.7 98 20 113/53 (73) 94 98.7 Physical Exam General: Alert, Oriented X3, Cooperative, No acute distress Heart: Regular rate, No murmurs Lungs: Clear, Other Abdomen: Normal bowel sounds Extremities: No cyanosis, No edema Brief Hospital Course Ms. Marques is a 68 old [sex] who presented with [anemia, esrd ] CONDITION AT DISCHARGE: Improved Discharge Medications Current Medications Acetaminophen (Tylenol) 650 mg 1X PRN PRN PO PRE-TRANSFUSION; Start 10/08/18 at 19:30 Diphenhydramine HCl (Benadryl) 25 mg PRN 1X PRN PO PRE-TRANSFUSION; Start at 19:30 Gabapentin (Neurontin) 300 mg PRN TID PRN PO SEE COMMENTS Last administered on 10/08/18at 22:38; Start 10/08/18 at 19:30 Oxycodone/ Acetaminophen (Percocet 5/325) 1 tab PRN Q6HRS PRN PO MODERATE PAIN , SEVERE PAIN; Start 10/08/18 at 19:30 Non-Formulary Medication (Insulin Lispro (Humalog)) 100 unit TIDAC PRN SQ blood sugar; Start 10/08/18 at 19:30; Status UNV Temazepam (Restoril) 7.5 mg PRN QHS PRN PO INSOMNIA; Start 10/08/18 at 19:30 Insulin Human Lispro (HumaLOG) 0-9 UNITS TIDWMEALS SQ ; Start 10/09/18 at 08:00 Dextrose (Dextrose 50%-Water Syringe) 12.5 gm PRN Q15MIN PRN IV SEE COMMENTS; Start 10/08/18 at 19:30 Acetaminophen (Tylenol) 500 mg PRN Q6HRS PRN PO MILD PAIN / TEMP; Start at 19:30 Ondansetron HCl (Zofran) 4 mg PRN Q6HRS PRN IV NAUSEA/VOMITING; Start 10/08/18 at 19:30 Ondansetron HCl (Zofran Odt) 4 mg PRN Q6HRS PRN PO NAUSEA/VOMITING; Start at 19:30 Lidocaine/ Prilocaine (Emla) 1 katia 1X ONCE TP ; Start 10/08/18 at 19:45; Stop at 19:46; Status DC Silver Sulfadiazine (Silvadene) 1 katia DAILY TP Last administered on 10/09/18at 09 :40; Start 10/08/18 at 19:45 Sodium Chloride 1,000 ml @ 1,000 mls/hr Q1H PRN IV hypotension; Start 10/09/18 at 10:42; Stop 10/09/18 at 16:41; Status DC Sodium Chloride 1,000 ml @ 400 mls/hr Q2H30M PRN IV PATENCY; Start 10/09/18 at 10:42; Stop 10/09/18 at 22:41; Status DC Info (PHARMACY MONITORING -- do not chart) 1 each PRN DAILY PRN MC SEE COMMENTS ; Start 10/09/18 at 10:45; Status UNV Info (PHARMACY MONITORING -- do not chart) 1 each PRN DAILY PRN MC SEE COMMENTS ; Start 10/09/18 at 10:45 Sodium Chloride 1,000 ml @ 400 mls/hr Q2H30M PRN IV PATENCY; Start 10/09/18 at 13:00; Stop 10/10/18 at 00:59; Status DC Active Scripts Active Reported Humalog (Insulin Lispro) 100 Unit/1 Ml Cartridge 100 Unit SQ TIDAC PRN Percocet 5-325 Mg Tablet (Oxycodone/Acetaminophen) 1 Each Tablet 1 Tab PO PRN Q6HRS PRN Gabapentin (Gabapentin) 300 Mg Capsule 300 Mg PO PRN TID PRN Vital Signs Vital Signs Date Time Temp Pulse Resp B/P (MAP) Pulse Ox O2 Delivery O2 Flow Rate FiO2 10/10/18 07:37 Room Air 10/10/18 07:00 98.7 98 20 113/53 (73) 94 98.7 Labs Laboratory Tests Test 10/08/18 20:51 10/09/18 06:21 10/09/18 07:46 10/09/18 11:35 Glucose (Fingerstick) 184 mg/dL (70-99) 141 mg/dL (70-99) 221 mg/dL (70-99) White Blood Count 6.9 x10^3/uL (4.0-11.0) Red Blood Count 2.35 x10^6/uL (3.50-5.40) Hemoglobin 7.2 g/dL (12.0-15.5) Hematocrit 22.2 % (36.0-47.0) Mean Corpuscular Volume 95 fL (79-100) Mean Corpuscular Hemoglobin 31 pg (25-35) Mean Corpuscular Hemoglobin Concent 32 g/dL (31-37) Red Cell Distribution Width 16.9 % (11.5-14.5) Platelet Count 146 x10^3/uL (140-400) Neutrophils (%) (Auto) 64 % (31-73) Lymphocytes (%) (Auto) 30 % (24-48) Monocytes (%) (Auto) 5 % (0-9) Eosinophils (%) (Auto) 1 % (0-3) Basophils (%) (Auto) 0 % (0-3) Neutrophils # (Auto) 4.4 x10^3uL (1.8-7.7) Lymphocytes # (Auto) 2.0 x10^3/uL (1.0-4.8) Monocytes # (Auto) 0.3 x10^3/uL (0.0-1.1) Eosinophils # (Auto) 0.1 x10^3/uL (0.0-0.7) Basophils # (Auto) 0.0 x10^3/uL (0.0-0.2) Sodium Level 141 mmol/L (136-145) Potassium Level 4.2 mmol/L (3.5-5.1) Chloride Level 101 mmol/L (98-107) Carbon Dioxide Level 27 mmol/L (21-32) Anion Gap 13 (6-14) Blood Urea Nitrogen 25 mg/dL (7-20) Creatinine 6.2 mg/dL (0.6-1.0) Estimated GFR (Cockcroft-Gault) 6.7 Glucose Level 156 mg/dL (70-99) Calcium Level 8.5 mg/dL (8.5-10.1) Test 10/09/18 17:35 10/09/18 18:35 Glucose (Fingerstick) 109 mg/dL (70-99) White Blood Count 8.3 x10^3/uL (4.0-11.0) Red Blood Count 2.93 x10^6/uL (3.50-5.40) Hemoglobin 8.9 g/dL (12.0-15.5) Hematocrit 27.6 % (36.0-47.0) Mean Corpuscular Volume 94 fL (79-100) Mean Corpuscular Hemoglobin 31 pg (25-35) Mean Corpuscular Hemoglobin Concent 32 g/dL (31-37) Red Cell Distribution Width 16.2 % (11.5-14.5) Platelet Count 164 x10^3/uL (140-400) Neutrophils (%) (Auto) 73 % (31-73) Lymphocytes (%) (Auto) 20 % (24-48) Monocytes (%) (Auto) 5 % (0-9) Eosinophils (%) (Auto) 1 % (0-3) Basophils (%) (Auto) 1 % (0-3) Neutrophils # (Auto) 6.1 x10^3uL (1.8-7.7) Lymphocytes # (Auto) 1.6 x10^3/uL (1.0-4.8) Monocytes # (Auto) 0.4 x10^3/uL (0.0-1.1) Eosinophils # (Auto) 0.1 x10^3/uL (0.0-0.7) Basophils # (Auto) 0.1 x10^3/uL (0.0-0.2) Reticulocyte Count (auto) 2.9 % (0.5-2.5) Iron Level 97 ug/dL (50-170) Total Iron Binding Capacity 161 ug/dL (250-450) Iron Saturation 60 % (15-34) Laboratory Tests Test 10/09/18 17:35 10/09/18 18:35 Glucose (Fingerstick) 109 mg/dL (70-99) White Blood Count 8.3 x10^3/uL (4.0-11.0) Red Blood Count 2.93 x10^6/uL (3.50-5.40) Hemoglobin 8.9 g/dL (12.0-15.5) Hematocrit 27.6 % (36.0-47.0) Mean Corpuscular Volume 94 fL (79-100) Mean Corpuscular Hemoglobin 31 pg (25-35) Mean Corpuscular Hemoglobin Concent 32 g/dL (31-37) Red Cell Distribution Width 16.2 % (11.5-14.5) Platelet Count 164 x10^3/uL (140-400) Neutrophils (%) (Auto) 73 % (31-73) Lymphocytes (%) (Auto) 20 % (24-48) Monocytes (%) (Auto) 5 % (0-9) Eosinophils (%) (Auto) 1 % (0-3) Basophils (%) (Auto) 1 % (0-3) Neutrophils # (Auto) 6.1 x10^3uL (1.8-7.7) Lymphocytes # (Auto) 1.6 x10^3/uL (1.0-4.8) Monocytes # (Auto) 0.4 x10^3/uL (0.0-1.1) Eosinophils # (Auto) 0.1 x10^3/uL (0.0-0.7) Basophils # (Auto) 0.1 x10^3/uL (0.0-0.2) Reticulocyte Count (auto) 2.9 % (0.5-2.5) Iron Level 97 ug/dL (50-170) Total Iron Binding Capacity 161 ug/dL (250-450) Iron Saturation 60 % (15-34) Allergies Allergies Coded Allergies Type Severity Reaction Last Updated Verified No Known Drug Allergies 05/25/17 No Disposition/Orders: D/C to Home, D/C to Home w/ HH Patient Instructions d/c planning 33 min MIKE AGUIRRE MD Oct 10, 2018 11:37
--- NOTE | 2018-10-10 11:38 | DISCH ---
DISCHARGE WITH HOME HEALTH DISCHARGE INFORMATION: Condition on Discharge: Stable HOME HEALTH: Face to Face: I certify this patient is under my care and that I, or a nurse practitioner or physician's photographer assistant working with me, had a face to face encounter that meets the physician face to face encounter requirements with this patient on [10/10/18 ]. Medical Complications: Other (esrd, chronic wounds) POST DISCHARGE ORDERS: Activity Instructions for Disc: Activity as tolerated Weight Bearing Status after Di: As tolerated DIET AFTER DISCHARGE: Renal Wound/Incision Care: Keep wound elevated CHECKS AFTER DISCHARGE: Checks after discharge: Check blood press - daily, Check blood sugar, ac/hs, Check your Temp as needed, Weigh Yourself Daily FOLLOW-UP: Follow Up With: primary healthcare provider in 1-2 weeks TREATMENT/EQUIPMENT ORDERS: Adaptive Equipment Issued: None CERTIFICATION STATEMENT: Certification Statement: Certification Statement: Based on the above finding, I certify that this patient is confined to the home and needs intermittent penitentiary care, physical therapy and/or speech therapy, or continues to need occupational therapy.~ This patient is under my care, and I have initiated the establishment of the plan of care.~ This patient will be followed by myself or a community physician who will periodically review the plan of care. Home Meds Reported Medications Insulin Lispro (HUMALOG) 100 Unit/1 Ml Cartridge, 100 UNIT SQ TIDAC PRN for blood sugar, EACH 07/20/18 Oxycodone/Apap 5-325 (PERCOCET 5-325 MG TABLET ) 1 Each Tablet, 1 TAB PO PRN Q6HRS PRN for PAIN, TAB 0 Refills 08/03/17 Gabapentin (GABAPENTIN ) 300 Mg Capsule, 300 MG PO PRN TID PRN for SEE COMMENTS, CAP 05/22/17 MIKE AGUIRRE MD Oct 10, 2018 11:38
[2018-10-26] MEDS ORDERED: CHOL500051 PO (20:22)
== END 2018-10-10 12:04 | disposition home health service (06) ==
LOC: INTOOBSV 17:08 → 5 NORTH 17:08
PROVIDERS: ADMIT Internal Medicine; ATTEND Internal Medicine
DX: E11.22 Type 2 diabetes mellitus with diabetic chronic kidney disease (principal); I13.2 Hypertensive heart and chronic kidney disease with heart failure and with stage 5 chronic kidney disease, or end stage renal disease; I50.9 Heart failure, unspecified; N18.6 End stage renal disease; I48.91 Unspecified atrial fibrillation; I27.20 Pulmonary hypertension, unspecified; F41.9 Anxiety disorder, unspecified; F32.9 Major depressive disorder, single episode, unspecified; E11.42 Type 2 diabetes mellitus with diabetic polyneuropathy; D63.1 Anemia in chronic kidney disease; I42.0 Dilated cardiomyopathy; K21.9 Gastro-esophageal reflux disease without esophagitis; M10.9 Gout, unspecified; M19.90 Unspecified osteoarthritis, unspecified site; N25.81 Secondary hyperparathyroidism of renal origin; R42 Dizziness and giddiness; Z91.19 Patient's noncompliance with other medical treatment and regimen; Z90.710 Acquired absence of both cervix and uterus; Z82.49 Family history of ischemic heart disease and other diseases of the circulatory system; Z99.2 Dependence on renal dialysis
CPT/HCPCS: 36415; 80048; 82962; 83540; 83550; 85025; 85045; 86850; 86900; 86901; 86920; 97161; G0378; G0379; G8978; G8979; G8980; J1815; P9016

== ENCOUNTER 2018-10-30 19:28 | Emergency (ER) | payer OTHER ==
[~2018-10-30] VITALS: Ht 167.6 cm; Wt 93.4 kg
[~2018-10-30 19:28] MED LIST changes: +CHOL500051 PO; -LIDO700A21 TP; +LIDO700A39 TP; +PANT40TA5 PO; -PANT40TA77 PO
[2018-10-30 20:46] LABS: CLARITY,URINE TURBID; COLOR,URINE RED
[2018-10-30 20:48] LABS: BASO % 1 % (0-3); EOS # 0.2 x10^3/uL (0.0-0.7); EOS % 3 % (0-3); HEMATOCRIT 26.5 % (36.0-47.0); HEMOGLOBIN 8.8 g/dL (12.0-15.5); LYMPH # 1.5 x10^3/uL (1.0-4.8); LYMPH % 25 % (24-48); MEAN CORPUSCULAR HEMOGLOBIN 31 pg (25-35); MEAN CORPUSCULAR HGB CONC 33 g/dL (31-37); MEAN CORPUSCULAR VOLUME 93 fL (79-100); MONO # 0.4 x10^3/uL (0.0-1.1); MONO % 6 % (0-9); NEUT # 3.9 x10^3uL (1.8-7.7); NEUT % 65 % (31-73); PLATELET COUNT 125 x10^3/uL (140-400); RED BLOOD COUNT 2.84 x10^6/uL (3.50-5.40); RED CELL DISTRIBUTION WIDTH 15.7 % (11.5-14.5)
[2018-10-30 20:57] LABS: CALCIUM 8.9 mg/dL (8.5-10.1); CREATININE 2.8 mg/dL (0.6-1.0); GFR 16.7; POTASSIUM 3.6 mmol/L (3.5-5.1)
[2018-10-30 21:04] LABS: BACTERIA,URINE 0 /HPF (0-FEW); RBC,URINE TNTC /HPF (0-2); SQUAMOUS EPITHELIAL CELL,UR OCC /LPF
[2018-10-30 21:06] LABS: PROTHROMBIN TIME PATIENT 14.8 SEC (11.7-14.0)
[2018-10-30] MEDS ORDERED: CEPH-264 PO (21:23)
--- NOTE | 2018-10-30 21:23 | PHYS DOC ---
Past Medical History Past Medical History: A-Fib, Arrhythmia, Diabetes-Type I, Hypertension, Renal Disease Additional Past Medical Histor: NEUROPATHY, GOUT Past Surgical History: Appendectomy, Cholecystectomy, Hysterectomy Additional Past Surgical Histo: PARTCIAL REMOVAL OF LG INTESTINE, WRIST SURG, HERNIA, COSMETIC SKIN REMOVAL Alcohol Use: None Drug Use: None Adult General Chief Complaint Chief Complaint: BLOOD IN URINE HPI HPI Patient is a 68 year old female with history of end-stage renal disease currently on dialysis who presents with written hematuria 24 hours. Patient externally twice daily. No fever, chills, flank pain, nausea vomiting or sweats. No dysuria, recurrence he urgency pain or burning. No history of kidney stones, renal cysts. Patient completed focal course of dialysis today without complication. Denies history of recurrent or recent urinary tract infections. No other symptoms or complaints.[] Review of Systems Review of Systems Review of symptoms as per history of present illness. All other review symptoms are negative. All other systems were reviewed and found to be within normal limits, except as documented in this note. Current Medications Current Medications Current Medications Medications (Trade) Dose Ordered Sig/Aileen Start Time Stop Time Status Last Admin Dose Admin Ceftriaxone Sodium (Rocephin Im) 1 gm 1X ONCE 10/30/18 21:15 10/30/18 21:16 UNV Allergies Allergies Allergies Coded Allergies Type Severity Reaction Last Updated Verified No Known Drug Allergies 05/25/17 No Physical Exam Physical Exam Constitutional: Well developed, well nourished, no acute distress, non-toxic appearance. [] HENT: Normocephalic, atraumatic, bilateral external ears normal, oropharynx moist, no oral exudates, nose normal. [] Eyes: PERRLA, EOMI, conjunctiva normal, no discharge. [] Neck: Normal range of motion, no tenderness, supple, no stridor. [] Cardiovascular:Heart rate regular rhythm, no murmur [] Lungs & Thorax: Bilateral breath sounds clear to auscultation [] Abdomen: Bowel sounds normal, soft, no tenderness, no masses, no pulsatile masses. [] Skin: Warm, dry, no erythema, no rash. [] Back: No tenderness, no CVA tenderness. [] Extremities: No tenderness, ROM intact, no edema. [] Neurologic: Alert and oriented X 3, normal motor function, normal sensory function, no focal deficits noted. [] Psychologic: Affect normal, judgement normal, mood normal. [] Current Patient Data Vital Signs Vital Signs Date Time Temp Pulse Resp B/P (MAP) Pulse Ox O2 Delivery O2 Flow Rate FiO2 10/30/18 19:33 97.7 76 18 115/66 (82) 99 Room Air 97.7 Lab Values Laboratory Tests Test 10/30/18 20:30 White Blood Count 6.0 x10^3/uL (4.0-11.0) Red Blood Count 2.84 x10^6/uL (3.50-5.40) L Hemoglobin 8.8 g/dL (12.0-15.5) L Hematocrit 26.5 % (36.0-47.0) L Mean Corpuscular Volume 93 fL (79-100) Mean Corpuscular Hemoglobin 31 pg (25-35) Mean Corpuscular Hemoglobin Concent 33 g/dL (31-37) Red Cell Distribution Width 15.7 % (11.5-14.5) H Platelet Count 125 x10^3/uL (140-400) L Neutrophils (%) (Auto) 65 % (31-73) Lymphocytes (%) (Auto) 25 % (24-48) Monocytes (%) (Auto) 6 % (0-9) Eosinophils (%) (Auto) 3 % (0-3) Basophils (%) (Auto) 1 % (0-3) Neutrophils # (Auto) 3.9 x10^3uL (1.8-7.7) Lymphocytes # (Auto) 1.5 x10^3/uL (1.0-4.8) Monocytes # (Auto) 0.4 x10^3/uL (0.0-1.1) Eosinophils # (Auto) 0.2 x10^3/uL (0.0-0.7) Basophils # (Auto) 0.0 x10^3/uL (0.0-0.2) Prothrombin Time 14.8 SEC (11.7-14.0) H Prothrombin Time INR 1.2 (0.8-1.1) H Urine Collection Type U cath Urine Color Red Urine Clarity Turbid Urine pH Urine Specific [place] 1.015 Urine Protein mg/dL (NEG-TRACE) Urine Glucose (UA) mg/dL (NEG) Urine Ketones (Stick) mg/dL (NEG) Urine Blood (NEG) Urine Nitrite (NEG) Urine Bilirubin (NEG) Urine Urobilinogen Dipstick mg/dL (0.2 mg/dL) Urine Leukocyte Esterase (NEG) Urine RBC Tntc /HPF (0-2) Urine WBC 11-20 /HPF (0-4) Urine Squamous Epithelial Cells Occ /LPF Urine Bacteria 0 /HPF (0-FEW) Sodium Level 143 mmol/L (136-145) Potassium Level 3.6 mmol/L (3.5-5.1) Chloride Level 102 mmol/L (98-107) Carbon Dioxide Level 32 mmol/L (21-32) Anion Gap 9 (6-14) Blood Urea Nitrogen 16 mg/dL (7-20) Creatinine 2.8 mg/dL (0.6-1.0) H Estimated GFR (Cockcroft-Gault) 16.7 Glucose Level 128 mg/dL (70-99) H Calcium Level 8.9 mg/dL (8.5-10.1) Laboratory Tests 10/30/18 20:30 Laboratory Tests 10/30/18 20:30 EKG EKG [] Radiology/Procedures Radiology/Procedures [] Course & Med Decision Making Course & Med Decision Making Pertinent Labs and Imaging studies reviewed. (See chart for details) [Hematuria. Etiology unclear. Urine culture sent. No flank pain, fevers to suggest kidney stone. Antibiotics given. Recommend PCP follow-up for further management and urine culture results. Return precautions reviewed.] Dragon Disclaimer Dragon Disclaimer This electronic medical record was generated, in whole or in part, using a voice recognition dictation system. Departure Departure Impression: Primary Impression: Hematuria Disposition: 01 HOME, SELF-CARE Condition: GOOD Referrals: LACY BARFIELD DO (PCP) Patient Instructions: Hematuria, Adult Additional Instructions: You were evaluated in the emergency department for blood in urine. A Urine culture is obtained and is pending. In the meantime, please take an biotics as directed and follow-up with your PCP for urine culture results and for further management. Scripts Cephalexin (KEFLEX) 500 Mg Capsule 1 CAP PO BID, #14 CAP Prov: MONI POWELL DO 10/30/18 MONI POWELL DO Oct 30, 2018 21:23
[2018-10-30] MEDS ORDERED: cefTRIAXone IM 1 GM VIAL IM ONE (21:30)
[2018-10-30 21:31] VITALS: BP 138/78
[2018-11-19] MEDS ORDERED: OXYC1TAB15 PO (09:03)
[2018-11-19] MEDS ORDERED: GABA300C18 PO (09:03)
[2018-11-19] MEDS ORDERED: SILV25CR7 TP (09:03)
[2018-11-19] MEDS ORDERED: TEMA7.5C2 PO (09:03)
== END 2018-10-30 21:37 | disposition home or self-care (01) ==
LOC: ER 19:28
DX: R31.9 Hematuria, unspecified (principal); E10.22 Type 1 diabetes mellitus with diabetic chronic kidney disease; I12.0 Hypertensive chronic kidney disease with stage 5 chronic kidney disease or end stage renal disease; N18.6 End stage renal disease; I48.91 Unspecified atrial fibrillation; M10.9 Gout, unspecified; Z99.2 Dependence on renal dialysis; E10.40 Type 1 diabetes mellitus with diabetic neuropathy, unspecified; Z90.710 Acquired absence of both cervix and uterus; Z90.89 Acquired absence of other organs
CPT/HCPCS: 36415; 51701; 80048; 81001; 85025; 85610; 87086; 96372; 99283; J0696

== ENCOUNTER 2018-11-15 14:07 | Inpatient (IN) | payer OTHER ==
[~2018-11-15] VITALS: Ht 182.9 cm; Wt 100.9 kg
[~2018-11-15 14:07] MED LIST changes: +CEPH-264 PO
--- NOTE | 2018-11-15 16:15 | PHYS DOC ---
Past Medical History Past Medical History: A-Fib, Arrhythmia, Diabetes-Type I, Hypertension, Renal Disease Additional Past Medical Histor: NEUROPATHY, GOUT Past Surgical History: Appendectomy, Cholecystectomy, Hysterectomy Additional Past Surgical Histo: PARTCIAL REMOVAL OF LG INTESTINE, WRIST SURG, HERNIA, COSMETIC SKIN REMOVAL Alcohol Use: None Drug Use: None Adult General Chief Complaint Chief Complaint: TOE PROBLEM HPI HPI Patient is a 68 year old male who presents to the emergency room with complaints of the distal aspect of her second left toe is missing. Patient states her home health nurse came over this morning and noted that the end of her toes missing. Patient states she noticed that the toe was bleeding last night and finger that she just cut it on something. Patient does not recall how she injured her toe. She reports a history of diabetes with neuropathy. She denies any pain at this time. She reports that her last tetanus immunization was less than 5 years ago. Review of Systems Review of Systems Constitutional: Denies fever or chills [] Musculoskeletal: Denies foot pain or joint pain; see history of present illness Integument: Denies rash; see history of present illness Neurologic: Denies headache, reports neuropathy history Endocrine: Denies polyuria or polydipsia [] Current Medications Current Medications Current Medications Medications (Trade) Dose Ordered Sig/Aileen Start Time Stop Time Status Last Admin Dose Admin Cefazolin Sodium/ Dextrose 50 ml @ 100 mls/hr 1X ONCE 11/15/18 17:00 11/15/18 17:29 DC Lidocaine/ Epinephrine (Let Topical) 3 ml 1X ONCE 11/15/18 17:30 11/15/18 17:31 DC Allergies Allergies Allergies Coded Allergies Type Severity Reaction Last Updated Verified No Known Drug Allergies 10/30/18 No Physical Exam Physical Exam Constitutional: Well developed, well nourished, no acute distress, non-toxic appearance, obese. [] HENT: Normocephalic, atraumatic, bilateral external ears normal, nose normal. [] Eyes: conjunctiva normal, no discharge. [] Neck: Normal range of motion, no stridor. [] Skin: Warm, dry, no erythema, no rash; open wound of left 2nd toe at DIP no active bleeding or drainage[] Extremities: No cyanosis, no clubbing, no edema; distal end of left 2nd toe is no longer intact, pt unable to locate missing portion of toe Neurologic: Alert and oriented X 3, no focal deficits noted. [] Psychologic: Affect normal, judgement normal, mood normal. [] Current Patient Data Vital Signs Vital Signs Date Time Temp Pulse Resp B/P (MAP) Pulse Ox O2 Delivery O2 Flow Rate FiO2 11/15/18 17:05 98.1 92 20 133/60 (84) 99 Room Air 98.1 EKG EKG [] Radiology/Procedures Radiology/Procedures amputation of distal phalanx 2nd toe of left foot, read by Dr. Renner[] Course & Med Decision Making Course & Med Decision Making Pertinent Labs and Imaging studies reviewed. (See chart for details) [address] Ken about pt and x-ry. Per Dr. Ken will admit pt to hospitalist for amputation of distal phalanx of second toe, and order 2 gm of ancef IV every 8 hours, NPO after midnight. [address] Argueta and advised of need for admission. [] Dragon Disclaimer Dragon Disclaimer This electronic medical record was generated, in whole or in part, using a voice recognition dictation system. Departure Departure Impression: Primary Impression: Traumatic amputation of second toe of left foot Disposition: HOME, SELF-CARE Admitting Physician: Chayo Argueta Condition: STABLE Referrals: LACY BARFIELD DO (PCP) Problem Qualifiers Primary Impression: Traumatic amputation of second toe of left foot Encounter type: initial encounter Qualified Codes: S98.132A - Complete traumatic amputation of one left lesser toe, initial encounter HENRY CHOI APRN Nov 15, 2018 16:15
[2018-11-15] MEDS ORDERED: LIDOCAINE/EPI/TETRACAINE TOPICAL GEL 3 ML. TP ONE (17:30)
--- NOTE | 2018-11-15 17:39 | RAD ---
EXAM: Left foot, 3 views. HISTORY: Second toe amputation. COMPARISON: None. FINDINGS: 3 views of the left foot are obtained. There has been amputation of the second distal phalanx. There is no radiographic evidence of active osteomyelitis. There are extensive vascular calcifications throughout the left foot. There is no fracture, dislocation or subluxation. There is a small plantar spur. There is suspected bone demineralization. IMPRESSION: 1. Left second distal phalanx amputation. 2. No radiographic evidence of osteoarthritis. Note is made that MRI may be useful if there is concern for radiographically occult osteomyelitis. Electronically signed by: Ava Morton MD (11/15/2018 5:37 PM) [id number]
[2018-11-15 17:57] LABS: BASO # 0.1 x10^3/uL (0.0-0.2); BASO % 1 % (0-3); EOS # 0.2 x10^3/uL (0.0-0.7); EOS % 3 % (0-3); HEMATOCRIT 22.6 % (36.0-47.0); HEMOGLOBIN 7.3 g/dL (12.0-15.5); LYMPH # 1.4 x10^3/uL (1.0-4.8); LYMPH % 25 % (24-48); MEAN CORPUSCULAR HEMOGLOBIN 31 pg (25-35); MEAN CORPUSCULAR HGB CONC 32 g/dL (31-37); MEAN CORPUSCULAR VOLUME 97 fL (79-100); MONO # 0.4 x10^3/uL (0.0-1.1); MONO % 6 % (0-9); NEUT # 3.7 x10^3uL (1.8-7.7); NEUT % 65 % (31-73); PLATELET COUNT 124 x10^3/uL (140-400); RED BLOOD COUNT 2.32 x10^6/uL (3.50-5.40); RED CELL DISTRIBUTION WIDTH 15.8 % (11.5-14.5); WHITE BLOOD COUNT 5.7 x10^3/uL (4.0-11.0)
[2018-11-15] MEDS ORDERED: DEXTROSE 50% 25 GM / 50ML DISP.SYRIN. IV PRN (18:00)
[2018-11-15] MEDS ORDERED: TEMAZEPAM 7.5 MG CAPSULE PO PRN (18:00)
[2018-11-15] MEDS ORDERED: ACETAMINOPHEN/CODEINE 300/30MG TABLET. PO PRN (18:00)
[2018-11-15] MEDS ORDERED: GABAPENTIN 300 MG CAPSULE. PO PRN (18:00)
[2018-11-15] MEDS ORDERED: ACETAMINOPHEN 500 MG TABLET PO PRN (18:00)
[2018-11-15] MEDS ORDERED: MORPHINE SULFATE 2 MG/ML VIAL. IV PRN (18:00)
--- NOTE | 2018-11-15 18:00 | PDOC1 ---
History and Physical Date of Admission Date of Admission DATE: 11/15/18 TIME: 17:55 Identification/Chief Complaint Chief Complaint Her second digit left toe fell off Source Source: Caregiver, Chart review, Patient History of Present Illness History of Present Illness Not the best historian, she does not know how this happened. She is known to me as I admitted her not too long ago for severe dizziness affecting quality of life but unfortunately her insurance would not approve rehabilitation. Anyways, comes in because her second toe digit fell off and she has no clue as to how this happened. She has long-standing diabetes with unknown hemoglobin A1c, on insulin at home with unrecalled doses. Imaging and labs are still pending. Hemoglobin A1c unknown. But admitted as obviously will need some spinneret cleaner amputation by orthopedics Orthopedics has been consulted and plan an OR for tomorrow morning SHe is wanting to go to SNU as her cannot take care of her anymore Past Medical History Cardiovascular: AFIB, CHF, HTN Pulmonary: Pneumonia, Other CENTRAL NERVOUS SYSTEM: Periperal neuropathy GI: GERD, Other Heme/Onc: Anemia NOS Hepatobiliary: Other Psych: Anxiety, Depression Musculoskeletal: Osteoarthritis, Other Rheumatologic: Gout Renal/: Chronic renal failure, Urinary Incontinence, Hematuria Endocrine: Diabetes, Hyperparathyroidism Past Surgical History Past Surgical History: Appendectomy, Cholecystectomy, Cataract Removal, C- Section, Hernia Repair, Tonsillectomy, Colon Resection, Other Family History Family History: Cancer, Coronary Artery Disease Social History Smoke: No ALCOHOL: none Drugs: None Current Problem List Problem List Problems Medical Problems: (1) Traumatic amputation of second toe of left foot Status: Acute Current Medications Current Medications Current Medications Cefazolin Sodium/ Dextrose 50 ml @ 100 mls/hr 1X ONCE IV Last administered on 11/15/18at 17:54; Start 11/15/18 at 17:00; Stop 11/15/18 at 17:29; Status DC Lidocaine/ Epinephrine (Let Topical) 3 ml 1X ONCE TP ; Start 11/15/18 at 17:30 ; Stop 11/15/18 at 17:31; Status DC Active Scripts Active Keflex (Cephalexin) 500 Mg Capsule 1 Cap PO BID Reported Vitamin D (Cholecalciferol (Vitamin D3)) 5,000 Unit Capsule 5,000 Unit PO DAILY Humalog (Insulin Lispro) 100 Unit/1 Ml Cartridge 100 Unit SQ TIDAC PRN Percocet 5-325 Mg Tablet (Oxycodone/Acetaminophen) 1 Each Tablet 1 Tab PO PRN Q6HRS PRN Gabapentin (Gabapentin) 300 Mg Capsule 300 Mg PO PRN TID PRN Allergies Allergies: Coded Allergies: No Known Drug Allergies (Unverified , 10/30/18) ROS Review of System Loose diarrhea then constipated otherwise the rest of ROS negative Positive for weakness Physical Exam General: Alert, Oriented X3, Cooperative, No acute distress HEENT: Atraumatic, PERRLA, EOMI Lungs: Clear to auscultation, Normal air movement Heart: S1S2, RRR, no thrills, no rubs, no gallops, no murmurs Cardiovascular: S1, S2 Breasts: Normal, Rt breast nml w/o mass, Lt breast nml w/o mass, Nipples normal Abdomen: Normal bowel sounds, Soft, No tenderness, No hepatosplenomegaly, No masses Extremities: Other (second toe has partial amputation distal phalanx left) Skin: No rashes, No breakdown, No significant lesion Neuro: Normal gait, Normal speech, Strength at 5/5 X4 ext, Normal tone, Sensation intact, Cranial nerves 3-12 NL, Reflexes 2+ Psych/Mental Status: Mental status NL, Mood NL Vitals Vitals Vital Signs Date Time Temp Pulse Resp B/P (MAP) Pulse Ox O2 Delivery O2 Flow Rate FiO2 11/15/18 17:05 98.1 92 20 133/60 (84) 99 Room Air 98.1 VTE Prophylaxis Ordered VTE Prophylaxis Devices: Yes VTE Pharmacological Prophylaxi: Yes Assessment/Plan Assessment/Plan Accidental self amputation of distal phalanx, second left toe Diabetes with neuropathy, long-standing, with unknown hemoglobin A1c Hypertension, controlled Dyslipidemia chronic stable Obesity, BMI 32.3 Chronic dizziness Generalized weakness-wants SNU PLAN: Admit 2mN Full liquid diet for now then nothing by mouth post midnight for spinneret cleaner amputation by Ortho Sliding scale insulin Home meds I have reconciled except aspirin or any blood thinners or nSAIDs pre OR Seen at ER, discussed with Social work for SNU screen PT OT postop cont gabapentin etc Seen at ER DHRUV LAECY MD Nov 15, 2018 18:00
[2018-11-15 18:08] LABS: CALCIUM 8.3 mg/dL (8.5-10.1); CREATININE 8.1 mg/dL (0.6-1.0); GFR 4.9; POTASSIUM 4.3 mmol/L (3.5-5.1)
[2018-11-15 18:11] LABS: PROTHROMBIN TIME PATIENT 16.3 SEC (11.7-14.0)
[2018-11-15] MEDS: oxyCODONE/APAP 5/325 1 TAB TABLET PO PRN (18:11)
[2018-11-15 18:15] LABS: ALBUMIN 3.3 g/dL (3.4-5.0); TOTAL BILIRUBIN 0.5 mg/dL (0.2-1.0); TOTAL PROTEIN 6.5 g/dL (6.4-8.2)
[2018-11-15 19:00] VITALS: BP 115/42
--- NOTE | 2018-11-15 20:00 | NUR ---
Patient arrived from ER to room 426 per cart. Patient has amputated 2nd right toe. Patient not sure has this happened. Patient arrived to floor at 1840. Patient is alert and oriented X3. Patient lives at home with her . Patient has NKA. Patient has wound on her abdomen that she refuses to allow me to examine or photograph. Patient does not want me to mess with her abdomen. She has been during dressing changes daily to her abdomen and using silvadene ointment. Patient allowed me to photograph amputation site on her right foot. Patient does dialysis on Tuesdays, and Saturdays. Patient has AV shunt in her left forearm. Patient uses a battery powered chair to get around at home. Patient denies pain on admission. Will continue to monitor.
--- NOTE | 2018-11-15 20:46 | EKG ---
[facility] [address] [place] [address] Test Date: 2018-11-15 Test Time: 18:19:06 Pat Name: NATASHA CARL Department: Room: 426 1 Gender: F Chuck Boner: : 1950 Requested By: HENRY CHOI Order Number: [id number] Reading MD: Escobar Funez MD Measurements Intervals [place] Rate: 76 P: PA: QRS: 1 QRSD: 92 T: 51 QT: 388 QTc: 441 Interpretive Statements ATRIAL FIBRILLATION WITH CONTROLLED VENTRICULAR RESPONSE NON-SPECIFIC ST/T CHANGES Electronically Signed On 11-23-2018 23:23:43 CDT by Escobar Funez MD
[2018-11-15] MEDS ORDERED: C.DIFF MED SCREEN BY RX. MC ONE (21:00)
[2018-11-15 23:00] VITALS: BP 109/36
[2018-11-16] MEDS: oxyCODONE/APAP 5/325 1 TAB TABLET PO PRN ×2 (00:26→22:07)
[2018-11-16 02:49] VITALS: BP 94/38
[2018-11-16 07:00] VITALS: BP 122/45
[2018-11-16] MEDS: INSULIN LISPRO 300 UNITS/3 ML INSULN.PEN. SQ SCH ×4 (08:00→23:00)
[2018-11-16] MEDS ORDERED: POLYVINYL ALCOHOL 1.4% OPHTH SOLUTION 15ML BOTTLE. OU PRN (08:00)
[2018-11-16] MEDS: CHOLECALCIFEROL (VITAMIN D3) 5,000 UNIT CAPSULE PO SCH (08:02)
[2018-11-16] MEDS ORDERED: IV RINGERS,LACTATED 1000ML 1,000 ML IV SCH (09:03)
[2018-11-16] MEDS ORDERED: MORPHINE SULFATE 2 MG/ML VIAL. IV PRN (09:15)
[2018-11-16] MEDS ORDERED: ONDANSETRON PF 4 MG/2 ML VIAL. IV PRN (09:15)
[2018-11-16] MEDS ORDERED: fentaNYL PF VIAL 100 MCG/2 ML VIAL IV PRN ×2 (09:15)
[2018-11-16] MEDS ORDERED: HYDROmorphone 2 MG/ML VIAL IV PRN (09:15)
[2018-11-16] MEDS ORDERED: PROCHLORPERAZINE 10 MG/2 ML VIAL. IV PRN (09:15)
[2018-11-16] MEDS ORDERED: IV NORMAL SALINE 1000ML BAG 1,000 ML IV PRN ×2 (10:53)
[2018-11-16] MEDS ORDERED: ALBUMIN HUMAN 25% 200 ML IV PRN (11:00)
[2018-11-16] MEDS ORDERED: DIALYSIS PATIENT. MC PRN ×2 (11:00)
--- NOTE | 2018-11-16 11:11 | PDOC2 ---
CONSULT Date of Consult Date of Consult DATE: 11/16/18 TIME: 11:06 Reason for Consult Reason for Consult: ESRD Referring Physician Referring Physician: [id number] Identification/Chief Complaint Chief Complaint TOE FELL OFF Source Source: Chart review, Patient History of Present Illness Reason for Visit: THIS IS A 68 YR OLD WITH ESRD. SHE HAS ESRD DUE TO DM II AND HTN. LABS ARE C/W WITH HER ESRD. SHE NOTED THAT HER LEFT FOOT 2ND TOE FELL OFF AND CAME IN. SHE IS UNDERGOING ORTHO EVAL. SHE HAS OP HD ON TTS. HER LAST TX WAS ON THURSDAY Past Medical History Cardiovascular: AFIB, CHF, HTN Pulmonary: Pneumonia, Other CENTRAL NERVOUS SYSTEM: Periperal neuropathy GI: GERD, Other Heme/Onc: Anemia NOS Hepatobiliary: Other Psych: Anxiety, Depression Musculoskeletal: Osteoarthritis, Other Rheumatologic: Gout Renal/: Chronic renal failure, Urinary Incontinence, Hematuria Endocrine: Diabetes, Hyperparathyroidism Past Surgical History Past Surgical History: Appendectomy, Cholecystectomy, Cataract Removal, C- Section, Hernia Repair, Tonsillectomy, Colon Resection, Other Family History Family History: Cancer, Coronary Artery Disease Social History No ALCOHOL: none Drugs: None Lives: with Family Domestic Violence: Neg Current Problem List Problem List Problems Medical Problems: (1) Traumatic amputation of second toe of left foot Status: Acute Current Medications Current Medications Current Medications Cefazolin Sodium/ Dextrose 50 ml @ 100 mls/hr 1X ONCE IV Last administered on 11/15/18at 17:54; Start 11/15/18 at 17:00; Stop 11/15/18 at 17:29; Status DC Lidocaine/ Epinephrine (Let Topical) 3 ml 1X ONCE TP ; Start 11/15/18 at 17:30 ; Stop 11/15/18 at 17:31; Status DC Acetaminophen (Tylenol) 500 mg PRN Q6HRS PRN PO MILD PAIN / TEMP; Start at 18:00 Acetaminophen/ Codeine Phosphate (Tylenol #3) 1 tab PRN Q6HRS PRN PO MODERATE PAIN; Start 11/15/18 at 18:00 Temazepam (Restoril) 7.5 mg PRN QHS PRN PO INSOMNIA; Start 11/15/18 at 18:00 Morphine Sulfate (Morphine Sulfate) 2 mg PRN Q2HR PRN IV PAIN; Start 11/15/18 at 18:00 Insulin Human Lispro (HumaLOG) 0-9 UNITS TIDWMEALS SQ ; Start 11/16/18 at 08:00 Dextrose (Dextrose 50%-Water Syringe) 12.5 gm PRN Q15MIN PRN IV SEE COMMENTS; Start 11/15/18 at 18:00 Vitamin D (Vitamin D3) 5,000 unit DAILY PO ; Start 11/16/18 at 09:00 Gabapentin (Neurontin) 300 mg PRN TID PRN PO NEUROPATHIC PAIN Last administered on 11/15/18at 22:22; Start 11/15/18 at 18:00 Oxycodone/ Acetaminophen (Percocet 5/325) 1 tab PRN Q6HRS PRN PO SEVERE PAIN Last administered on 11/16/18at 00:26; Start 11/15/18 at 18:00 Pharmacy Consult (C.diff Med Screen By Rx) 1 each 1X ONCE MC ; Start 11/15/18 at 21:00; Stop 11/15/18 at 21:01; Status DC Artificial Tears (Artificial Tears) 1 drop PRN Q15MIN PRN OU DRY EYE Last administered on 11/16/18at 09:34; Start 11/16/18 at 08:00 Ondansetron HCl (Zofran) 4 mg PRN Q6HRS PRN IV NAUSEA/VOMITING; Start 11/16/18 at 09:15; Stop 11/17/18 at 09:14 Fentanyl Citrate (Fentanyl 2ml Vial) 25 mcg PRN Q5MIN PRN IV MILD PAIN; Start 11/16/18 at 09:15; Stop 11/17/18 at 09:14 Fentanyl Citrate (Fentanyl 2ml Vial) 50 mcg PRN Q5MIN PRN IV MODERATE TO SEVERE PAIN; Start 11/16/18 at 09:15; Stop 11/17/18 at 09:14 Morphine Sulfate (Morphine Sulfate) 1 mg PRN Q10MIN PRN IV SEVERE PAIN; Start 11/16/18 at 09:15; Stop 11/17/18 at 09:14 Ringer's Solution 1,000 ml @ 30 mls/hr Q24H IV ; Start 11/16/18 at 09:03; Stop 11/16/18 at 21:02 Hydromorphone HCl (Dilaudid) 0.5 mg PRN Q10MIN PRN IV SEV PAIN, Second choice; Start 11/16/18 at 09:15; Stop 11/17/18 at 09:14 Prochlorperazine Edisylate (Compazine) 5 mg PACU PRN PRN IV NAUSEA, MRX1; Start 11/16/18 at 09:15; Stop 11/17/18 at 09:14 Cefazolin Sodium/ Dextrose 50 ml @ 100 mls/hr 1X PREOP PRN IV PRIOR TO PROCEDURE; Start 11/16/18 at 09:45 Sodium Chloride 1,000 ml @ 1,000 mls/hr Q1H PRN IV hypotension; Start 11/16/18 at 10:53; Stop 11/16/18 at 16:52 Albumin Human 200 ml @ 200 mls/hr 1X PRN PRN IV Hypotension; Start 11/16/18 at 11:00; Stop 11/16/18 at 16:59 Sodium Chloride 1,000 ml @ 400 mls/hr Q2H30M PRN IV PATENCY; Start 11/16/18 at 10:53; Stop 11/16/18 at 22:52 Info (PHARMACY MONITORING -- do not chart) 1 each PRN DAILY PRN MC SEE COMMENTS ; Start 11/16/18 at 11:00 Info (PHARMACY MONITORING -- do not chart) 1 each PRN DAILY PRN MC SEE COMMENTS ; Start 11/16/18 at 11:00; Status UNV Active Scripts Active Reported Vitamin D (Cholecalciferol (Vitamin D3)) 5,000 Unit Capsule 5,000 Unit PO DAILY Humalog (Insulin Lispro) 100 Unit/1 Ml Cartridge 100 Unit SQ TIDAC PRN Percocet 5-325 Mg Tablet (Oxycodone/Acetaminophen) 1 Each Tablet 1 Tab PO PRN Q6HRS PRN Gabapentin (Gabapentin) 300 Mg Capsule 300 Mg PO PRN TID PRN Allergies Allergies: Coded Allergies: No Known Drug Allergies (Unverified , 10/30/18) ROS General: YES: Fatigue, Appetite PSYCHOLOGICAL ROS: YES: Anxiety, Depression Eyes: Yes Decreased vision HEENT: YES: Heacaches ALLERGY AND IMMUNOLOGY: YES: Seasonal Allergies Respiratory: YES: Cough, Shortness of breath Gastrointestinal: Yes Constipation Genitourinary: YES Other (ANURIA) Musculoskeletal: Yes Muscular Weakness, Yes Other (ABSENT 2ND TOE LEFT FOOT) Neurological: Yes Weakness Skin: Yes Skin Lesion Changes Physical Exam General: Alert, Oriented X3, Cooperative, No acute distress HEENT: Atraumatic, PERRLA, EOMI, Mucous membr. moist/pink Lungs: Clear to auscultation, Normal air movement Heart: Regular rate, Normal S1, Normal S2 Abdomen: Normal bowel sounds, Soft, No tenderness Extremities: No cyanosis, No edema Skin: No breakdown Neuro: Normal speech, Sensation intact Psych/Mental Status: Mental status NL, Other (FLAT AFFECT) MUSCULOSKELETAL: No joint tenderness, No deformity Vitals VITALS Vital Signs Date Time Temp Pulse Resp B/P (MAP) Pulse Ox O2 Delivery O2 Flow Rate FiO2 11/16/18 07:35 Room Air 11/16/18 07:00 97.4 79 18 122/45 (70) 95 97.4 Labs Labs Laboratory Tests Test 11/15/18 17:45 11/15/18 21:59 11/16/18 05:26 11/16/18 07:31 White Blood Count 5.7 x10^3/uL (4.0-11.0) Red Blood Count 2.32 x10^6/uL (3.50-5.40) Hemoglobin 7.3 g/dL (12.0-15.5) Hematocrit 22.6 % (36.0-47.0) Mean Corpuscular Volume 97 fL (79-100) Mean Corpuscular Hemoglobin 31 pg (25-35) Mean Corpuscular Hemoglobin Concent 32 g/dL (31-37) Red Cell Distribution Width 15.8 % (11.5-14.5) Platelet Count 124 x10^3/uL (140-400) Neutrophils (%) (Auto) 65 % (31-73) Lymphocytes (%) (Auto) 25 % (24-48) Monocytes (%) (Auto) 6 % (0-9) Eosinophils (%) (Auto) 3 % (0-3) Basophils (%) (Auto) 1 % (0-3) Neutrophils # (Auto) 3.7 x10^3uL (1.8-7.7) Lymphocytes # (Auto) 1.4 x10^3/uL (1.0-4.8) Monocytes # (Auto) 0.4 x10^3/uL (0.0-1.1) Eosinophils # (Auto) 0.2 x10^3/uL (0.0-0.7) Basophils # (Auto) 0.1 x10^3/uL (0.0-0.2) Prothrombin Time 16.3 SEC (11.7-14.0) Prothromb Time International Ratio 1.3 (0.8-1.1) Sodium Level 142 mmol/L (136-145) Potassium Level 4.3 mmol/L (3.5-5.1) Chloride Level 104 mmol/L (98-107) Carbon Dioxide Level 22 mmol/L (21-32) Anion Gap 16 (6-14) Blood Urea Nitrogen 50 mg/dL (7-20) Creatinine 8.1 mg/dL (0.6-1.0) Estimated GFR (Cockcroft-Gault) 4.9 BUN/Creatinine Ratio 6 (6-20) Glucose Level 228 mg/dL (70-99) Calcium Level 8.3 mg/dL (8.5-10.1) Total Bilirubin 0.5 mg/dL (0.2-1.0) Aspartate Amino Transf (AST/SGOT) 25 U/L (15-37) Alanine Aminotransferase (ALT/SGPT) 29 U/L (14-59) Alkaline Phosphatase 320 U/L (46-116) Total Protein 6.5 g/dL (6.4-8.2) Albumin 3.3 g/dL (3.4-5.0) Albumin/Globulin Ratio 1.0 (1.0-1.7) Glucose (Fingerstick) 136 mg/dL (70-99) 164 mg/dL (70-99) 145 mg/dL (70-99) Laboratory Tests Test 11/15/18 17:45 11/15/18 21:59 11/16/18 05:26 11/16/18 07:31 White Blood Count 5.7 x10^3/uL (4.0-11.0) Red Blood Count 2.32 x10^6/uL (3.50-5.40) Hemoglobin 7.3 g/dL (12.0-15.5) Hematocrit 22.6 % (36.0-47.0) Mean Corpuscular Volume 97 fL (79-100) Mean Corpuscular Hemoglobin 31 pg (25-35) Mean Corpuscular Hemoglobin Concent 32 g/dL (31-37) Red Cell Distribution Width 15.8 % (11.5-14.5) Platelet Count 124 x10^3/uL (140-400) Neutrophils (%) (Auto) 65 % (31-73) Lymphocytes (%) (Auto) 25 % (24-48) Monocytes (%) (Auto) 6 % (0-9) Eosinophils (%) (Auto) 3 % (0-3) Basophils (%) (Auto) 1 % (0-3) Neutrophils # (Auto) 3.7 x10^3uL (1.8-7.7) Lymphocytes # (Auto) 1.4 x10^3/uL (1.0-4.8) Monocytes # (Auto) 0.4 x10^3/uL (0.0-1.1) Eosinophils # (Auto) 0.2 x10^3/uL (0.0-0.7) Basophils # (Auto) 0.1 x10^3/uL (0.0-0.2) Prothrombin Time 16.3 SEC (11.7-14.0) Prothromb Time International Ratio 1.3 (0.8-1.1) Sodium Level 142 mmol/L (136-145) Potassium Level 4.3 mmol/L (3.5-5.1) Chloride Level 104 mmol/L (98-107) Carbon Dioxide Level 22 mmol/L (21-32) Anion Gap 16 (6-14) Blood Urea Nitrogen 50 mg/dL (7-20) Creatinine 8.1 mg/dL (0.6-1.0) Estimated GFR (Cockcroft-Gault) 4.9 BUN/Creatinine Ratio 6 (6-20) Glucose Level 228 mg/dL (70-99) Calcium Level 8.3 mg/dL (8.5-10.1) Total Bilirubin 0.5 mg/dL (0.2-1.0) Aspartate Amino Transf (AST/SGOT) 25 U/L (15-37) Alanine Aminotransferase (ALT/SGPT) 29 U/L (14-59) Alkaline Phosphatase 320 U/L (46-116) Total Protein 6.5 g/dL (6.4-8.2) Albumin 3.3 g/dL (3.4-5.0) Albumin/Globulin Ratio 1.0 (1.0-1.7) Glucose (Fingerstick) 136 mg/dL (70-99) 164 mg/dL (70-99) 145 mg/dL (70-99) Assessment/Plan Assessment/Plan IMP PAD DM II HTN ANEMIA ESRD 2ND TOE LEFT FOOT AUTO AMPUTATION PLAN WOUND CARE ANTIBIOTICS HD TODAY UF TO DW ORTHO EVAL AND TX START DIANA LEE MD Nov 16, 2018 11:11
--- NOTE | 2018-11-16 11:24 | PDOC ---
PROGRESS NOTES Chief Complaint Chief Complaint Accidental self amputation of distal phalanx, second left toe Diabetes with neuropathy, long-standing, with unknown hemoglobin A1c Hypertension, controlled Dyslipidemia chronic stable Obesity, BMI 32.3 Chronic dizziness Generalized weakness-wants SNU History of Present Illness History of Present Illness Out having ladle cleaner amputation by orthopedics PLAN:Await form OP POst op care Post op labs tmr cont current insulin regimen - so far working WOF further dizziness Vitals Vitals Vital Signs Date Time Temp Pulse Resp B/P (MAP) Pulse Ox O2 Delivery O2 Flow Rate FiO2 11/16/18 07:35 Room Air 11/16/18 07:00 97.4 79 18 122/45 (70) 95 97.4 Physical Exam General: Alert, Oriented X3, Cooperative, No acute distress Heart: Regular rate, Normal S1, Normal S2 Lungs: Clear, Other Abdomen: Normal bowel sounds, Soft, No tenderness Extremities: No cyanosis, No edema Skin: No breakdown Labs LABS Laboratory Tests Test 11/15/18 17:45 11/15/18 21:59 11/16/18 05:26 11/16/18 07:31 White Blood Count 5.7 x10^3/uL (4.0-11.0) Red Blood Count 2.32 x10^6/uL (3.50-5.40) Hemoglobin 7.3 g/dL (12.0-15.5) Hematocrit 22.6 % (36.0-47.0) Mean Corpuscular Volume 97 fL (79-100) Mean Corpuscular Hemoglobin 31 pg (25-35) Mean Corpuscular Hemoglobin Concent 32 g/dL (31-37) Red Cell Distribution Width 15.8 % (11.5-14.5) Platelet Count 124 x10^3/uL (140-400) Neutrophils (%) (Auto) 65 % (31-73) Lymphocytes (%) (Auto) 25 % (24-48) Monocytes (%) (Auto) 6 % (0-9) Eosinophils (%) (Auto) 3 % (0-3) Basophils (%) (Auto) 1 % (0-3) Neutrophils # (Auto) 3.7 x10^3uL (1.8-7.7) Lymphocytes # (Auto) 1.4 x10^3/uL (1.0-4.8) Monocytes # (Auto) 0.4 x10^3/uL (0.0-1.1) Eosinophils # (Auto) 0.2 x10^3/uL (0.0-0.7) Basophils # (Auto) 0.1 x10^3/uL (0.0-0.2) Prothrombin Time 16.3 SEC (11.7-14.0) Prothromb Time International Ratio 1.3 (0.8-1.1) Sodium Level 142 mmol/L (136-145) Potassium Level 4.3 mmol/L (3.5-5.1) Chloride Level 104 mmol/L (98-107) Carbon Dioxide Level 22 mmol/L (21-32) Anion Gap 16 (6-14) Blood Urea Nitrogen 50 mg/dL (7-20) Creatinine 8.1 mg/dL (0.6-1.0) Estimated GFR (Cockcroft-Gault) 4.9 BUN/Creatinine Ratio 6 (6-20) Glucose Level 228 mg/dL (70-99) Calcium Level 8.3 mg/dL (8.5-10.1) Total Bilirubin 0.5 mg/dL (0.2-1.0) Aspartate Amino Transf (AST/SGOT) 25 U/L (15-37) Alanine Aminotransferase (ALT/SGPT) 29 U/L (14-59) Alkaline Phosphatase 320 U/L (46-116) Total Protein 6.5 g/dL (6.4-8.2) Albumin 3.3 g/dL (3.4-5.0) Albumin/Globulin Ratio 1.0 (1.0-1.7) Glucose (Fingerstick) 136 mg/dL (70-99) 164 mg/dL (70-99) 145 mg/dL (70-99) Test 11/16/18 09:30 Hepatitis B Surface Antigen Nonreactive (Nonreactive) Hepatitis B Surface Antibody Nonreactive Review of Systems Review of Systems Out having surgery Assessment and Plan Assessmemt and Plan Problems Medical Problems: (1) Traumatic amputation of second toe of left foot Status: Acute Comment Review of Relevant I have reviewed the following items kai (where applicable) has been applied. Labs Laboratory Tests Test 11/15/18 17:45 11/15/18 21:59 11/16/18 05:26 11/16/18 07:31 White Blood Count 5.7 x10^3/uL (4.0-11.0) Red Blood Count 2.32 x10^6/uL (3.50-5.40) Hemoglobin 7.3 g/dL (12.0-15.5) Hematocrit 22.6 % (36.0-47.0) Mean Corpuscular Volume 97 fL (79-100) Mean Corpuscular Hemoglobin 31 pg (25-35) Mean Corpuscular Hemoglobin Concent 32 g/dL (31-37) Red Cell Distribution Width 15.8 % (11.5-14.5) Platelet Count 124 x10^3/uL (140-400) Neutrophils (%) (Auto) 65 % (31-73) Lymphocytes (%) (Auto) 25 % (24-48) Monocytes (%) (Auto) 6 % (0-9) Eosinophils (%) (Auto) 3 % (0-3) Basophils (%) (Auto) 1 % (0-3) Neutrophils # (Auto) 3.7 x10^3uL (1.8-7.7) Lymphocytes # (Auto) 1.4 x10^3/uL (1.0-4.8) Monocytes # (Auto) 0.4 x10^3/uL (0.0-1.1) Eosinophils # (Auto) 0.2 x10^3/uL (0.0-0.7) Basophils # (Auto) 0.1 x10^3/uL (0.0-0.2) Prothrombin Time 16.3 SEC (11.7-14.0) Prothromb Time International Ratio 1.3 (0.8-1.1) Sodium Level 142 mmol/L (136-145) Potassium Level 4.3 mmol/L (3.5-5.1) Chloride Level 104 mmol/L (98-107) Carbon Dioxide Level 22 mmol/L (21-32) Anion Gap 16 (6-14) Blood Urea Nitrogen 50 mg/dL (7-20) Creatinine 8.1 mg/dL (0.6-1.0) Estimated GFR (Cockcroft-Gault) 4.9 BUN/Creatinine Ratio 6 (6-20) Glucose Level 228 mg/dL (70-99) Calcium Level 8.3 mg/dL (8.5-10.1) Total Bilirubin 0.5 mg/dL (0.2-1.0) Aspartate Amino Transf (AST/SGOT) 25 U/L (15-37) Alanine Aminotransferase (ALT/SGPT) 29 U/L (14-59) Alkaline Phosphatase 320 U/L (46-116) Total Protein 6.5 g/dL (6.4-8.2) Albumin 3.3 g/dL (3.4-5.0) Albumin/Globulin Ratio 1.0 (1.0-1.7) Glucose (Fingerstick) 136 mg/dL (70-99) 164 mg/dL (70-99) 145 mg/dL (70-99) Test 11/16/18 09:30 Hepatitis B Surface Antigen Nonreactive (Nonreactive) Hepatitis B Surface Antibody Nonreactive Laboratory Tests Test 11/15/18 17:45 11/15/18 21:59 11/16/18 05:26 11/16/18 07:31 White Blood Count 5.7 x10^3/uL (4.0-11.0) Red Blood Count 2.32 x10^6/uL (3.50-5.40) Hemoglobin 7.3 g/dL (12.0-15.5) Hematocrit 22.6 % (36.0-47.0) Mean Corpuscular Volume 97 fL (79-100) Mean Corpuscular Hemoglobin 31 pg (25-35) Mean Corpuscular Hemoglobin Concent 32 g/dL (31-37) Red Cell Distribution Width 15.8 % (11.5-14.5) Platelet Count 124 x10^3/uL (140-400) Neutrophils (%) (Auto) 65 % (31-73) Lymphocytes (%) (Auto) 25 % (24-48) Monocytes (%) (Auto) 6 % (0-9) Eosinophils (%) (Auto) 3 % (0-3) Basophils (%) (Auto) 1 % (0-3) Neutrophils # (Auto) 3.7 x10^3uL (1.8-7.7) Lymphocytes # (Auto) 1.4 x10^3/uL (1.0-4.8) Monocytes # (Auto) 0.4 x10^3/uL (0.0-1.1) Eosinophils # (Auto) 0.2 x10^3/uL (0.0-0.7) Basophils # (Auto) 0.1 x10^3/uL (0.0-0.2) Prothrombin Time 16.3 SEC (11.7-14.0) Prothromb Time International Ratio 1.3 (0.8-1.1) Sodium Level 142 mmol/L (136-145) Potassium Level 4.3 mmol/L (3.5-5.1) Chloride Level 104 mmol/L (98-107) Carbon Dioxide Level 22 mmol/L (21-32) Anion Gap 16 (6-14) Blood Urea Nitrogen 50 mg/dL (7-20) Creatinine 8.1 mg/dL (0.6-1.0) Estimated GFR (Cockcroft-Gault) 4.9 BUN/Creatinine Ratio 6 (6-20) Glucose Level 228 mg/dL (70-99) Calcium Level 8.3 mg/dL (8.5-10.1) Total Bilirubin 0.5 mg/dL (0.2-1.0) Aspartate Amino Transf (AST/SGOT) 25 U/L (15-37) Alanine Aminotransferase (ALT/SGPT) 29 U/L (14-59) Alkaline Phosphatase 320 U/L (46-116) Total Protein 6.5 g/dL (6.4-8.2) Albumin 3.3 g/dL (3.4-5.0) Albumin/Globulin Ratio 1.0 (1.0-1.7) Glucose (Fingerstick) 136 mg/dL (70-99) 164 mg/dL (70-99) 145 mg/dL (70-99) Test 11/16/18 09:30 Hepatitis B Surface Antigen Nonreactive (Nonreactive) Hepatitis B Surface Antibody Nonreactive Medications Current Medications Cefazolin Sodium/ Dextrose 50 ml @ 100 mls/hr 1X ONCE IV Last administered on 11/15/18at 17:54; Start 11/15/18 at 17:00; Stop 11/15/18 at 17:29; Status DC Lidocaine/ Epinephrine (Let Topical) 3 ml 1X ONCE TP ; Start 11/15/18 at 17:30 ; Stop 11/15/18 at 17:31; Status DC Acetaminophen (Tylenol) 500 mg PRN Q6HRS PRN PO MILD PAIN / TEMP; Start at 18:00 Acetaminophen/ Codeine Phosphate (Tylenol #3) 1 tab PRN Q6HRS PRN PO MODERATE PAIN; Start 11/15/18 at 18:00 Temazepam (Restoril) 7.5 mg PRN QHS PRN PO INSOMNIA; Start 11/15/18 at 18:00 Morphine Sulfate (Morphine Sulfate) 2 mg PRN Q2HR PRN IV PAIN; Start 11/15/18 at 18:00 Insulin Human Lispro (HumaLOG) 0-9 UNITS TIDWMEALS SQ ; Start 11/16/18 at 08:00 Dextrose (Dextrose 50%-Water Syringe) 12.5 gm PRN Q15MIN PRN IV SEE COMMENTS; Start 11/15/18 at 18:00 Vitamin D (Vitamin D3) 5,000 unit DAILY PO ; Start 11/16/18 at 09:00 Gabapentin (Neurontin) 300 mg PRN TID PRN PO NEUROPATHIC PAIN Last administered on 11/15/18at 22:22; Start 11/15/18 at 18:00 Oxycodone/ Acetaminophen (Percocet 5/325) 1 tab PRN Q6HRS PRN PO SEVERE PAIN Last administered on 11/16/18at 00:26; Start 11/15/18 at 18:00 Pharmacy Consult (C.diff Med Screen By Rx) 1 each 1X ONCE MC ; Start 11/15/18 at 21:00; Stop 11/15/18 at 21:01; Status DC Artificial Tears (Artificial Tears) 1 drop PRN Q15MIN PRN OU DRY EYE Last administered on 11/16/18at 09:34; Start 11/16/18 at 08:00 Ondansetron HCl (Zofran) 4 mg PRN Q6HRS PRN IV NAUSEA/VOMITING; Start 11/16/18 at 09:15; Stop 11/17/18 at 09:14 Fentanyl Citrate (Fentanyl 2ml Vial) 25 mcg PRN Q5MIN PRN IV MILD PAIN; Start 11/16/18 at 09:15; Stop 11/17/18 at 09:14 Fentanyl Citrate (Fentanyl 2ml Vial) 50 mcg PRN Q5MIN PRN IV MODERATE TO SEVERE PAIN; Start 11/16/18 at 09:15; Stop 11/17/18 at 09:14 Morphine Sulfate (Morphine Sulfate) 1 mg PRN Q10MIN PRN IV SEVERE PAIN; Start 11/16/18 at 09:15; Stop 11/17/18 at 09:14 Ringer's Solution 1,000 ml @ 30 mls/hr Q24H IV ; Start 11/16/18 at 09:03; Stop 11/16/18 at 21:02 Hydromorphone HCl (Dilaudid) 0.5 mg PRN Q10MIN PRN IV SEV PAIN, Second choice; Start 11/16/18 at 09:15; Stop 11/17/18 at 09:14 Prochlorperazine Edisylate (Compazine) 5 mg PACU PRN PRN IV NAUSEA, MRX1; Start 11/16/18 at 09:15; Stop 11/17/18 at 09:14 Cefazolin Sodium/ Dextrose 50 ml @ 100 mls/hr 1X PREOP PRN IV PRIOR TO PROCEDURE; Start 11/16/18 at 09:45 Sodium Chloride 1,000 ml @ 1,000 mls/hr Q1H PRN IV hypotension; Start 11/16/18 at 10:53; Stop 11/16/18 at 16:52 Albumin Human 200 ml @ 200 mls/hr 1X PRN PRN IV Hypotension; Start 11/16/18 at 11:00; Stop 11/16/18 at 16:59 Sodium Chloride 1,000 ml @ 400 mls/hr Q2H30M PRN IV PATENCY; Start 11/16/18 at 10:53; Stop 11/16/18 at 22:52 Info (PHARMACY MONITORING -- do not chart) 1 each PRN DAILY PRN MC SEE COMMENTS ; Start 11/16/18 at 11:00 Info (PHARMACY MONITORING -- do not chart) 1 each PRN DAILY PRN MC SEE COMMENTS ; Start 11/16/18 at 11:00; Status UNV Darbepoetin Marquez (Aranesp) 60 mcg WEEKLYHS SQ ; Start 11/16/18 at 21:00 Active Scripts Active Reported Vitamin D (Cholecalciferol (Vitamin D3)) 5,000 Unit Capsule 5,000 Unit PO DAILY Humalog (Insulin Lispro) 100 Unit/1 Ml Cartridge 100 Unit SQ TIDAC PRN Percocet 5-325 Mg Tablet (Oxycodone/Acetaminophen) 1 Each Tablet 1 Tab PO PRN Q6HRS PRN Gabapentin (Gabapentin) 300 Mg Capsule 300 Mg PO PRN TID PRN Vitals/I & O Vital Sign - Last 24 Hours 11/15/18 11/15/18 11/15/18 11/15/18 17:05 18:00 19:00 19:11 Temp 98.1 98.0 98.1 98.0 Pulse 92 85 76 Resp 20 16 18 20 B/P (MAP) 133/60 (84) 133/86 (102) 115/42 (66) Pulse Ox 99 99 100 O2 Delivery Room Air Room Air Room Air Room Air 11/15/18 11/15/18 11/16/18 11/16/18 20:00 23:00 00:26 02:49 Temp 98.1 98.6 98.1 98.6 Pulse 82 86 Resp 16 20 16 B/P (MAP) 109/36 (60) 94/38 (56) Pulse Ox 97 93 O2 Delivery Room Air Room Air Room Air Room Air 11/16/18 11/16/18 07:00 07:35 Temp 97.4 97.4 Pulse 79 Resp 18 B/P (MAP) 122/45 (70) Pulse Ox 95 O2 Delivery Room Air Room Air Intake and Output 11/15/18 11/15/18 11/16/18 14:59 22:59 06:59 Intake Total 410 ml 0 ml Balance 410 ml 0 ml DHRUV LACEY MD Nov 16, 2018 11:24
[2018-11-16] MEDS ORDERED: LIDOCAINE 1% PF 2 ML VIAL. ONE (11:40)
--- NOTE | 2018-11-16 12:22 | PDOC2 ---
CONSULT Date of Consult Date of Consult DATE: 11/16/18 TIME: 12:16 Reason for Consult Reason for Consult: Toe amputation Identification/Chief Complaint Chief Complaint Missing left second toe Source Source: Chart review, Patient History of Present Illness Reason for Visit: This 68-year-old woman with diabetes, neuropathy, end-stage renal disease, presented to the hospital last evening with missing the distal portion of her left second toe. Her home health nurse noticed it. She did not feel it happen. She didn't think she had cut her toe. It is probably a traumatic amputation, although this could be gangrene secondary to end-stage diabetic neuropathy and angiopathy, with autoamputation. She is admitted to the hospital and placed on antibiotics intravenously. Past Medical History Cardiovascular: AFIB, CHF, HTN Pulmonary: Pneumonia, Other CENTRAL NERVOUS SYSTEM: Periperal neuropathy GI: GERD, Other Heme/Onc: Anemia NOS Hepatobiliary: Other Psych: Anxiety, Depression Musculoskeletal: Osteoarthritis, Other Rheumatologic: Gout Renal/: Chronic renal failure, Urinary Incontinence, Hematuria Endocrine: Diabetes, Hyperparathyroidism Past Surgical History Past Surgical History: Appendectomy, Cholecystectomy, Cataract Removal, C- Section, Hernia Repair, Tonsillectomy, Colon Resection, Other Family History Family History: Cancer, Coronary Artery Disease Social History No ALCOHOL: none Drugs: None Lives: with Family Domestic Violence: Neg Current Problem List Problem List Problems Medical Problems: (1) Traumatic amputation of second toe of left foot Status: Acute Current Medications Current Medications Current Medications Cefazolin Sodium/ Dextrose 50 ml @ 100 mls/hr 1X ONCE IV Last administered on 11/15/18at 17:54; Start 11/15/18 at 17:00; Stop 11/15/18 at 17:29; Status DC Lidocaine/ Epinephrine (Let Topical) 3 ml 1X ONCE TP ; Start 11/15/18 at 17:30 ; Stop 11/15/18 at 17:31; Status DC Acetaminophen (Tylenol) 500 mg PRN Q6HRS PRN PO MILD PAIN / TEMP; Start at 18:00 Acetaminophen/ Codeine Phosphate (Tylenol #3) 1 tab PRN Q6HRS PRN PO MODERATE PAIN; Start 11/15/18 at 18:00 Temazepam (Restoril) 7.5 mg PRN QHS PRN PO INSOMNIA; Start 11/15/18 at 18:00 Morphine Sulfate (Morphine Sulfate) 2 mg PRN Q2HR PRN IV PAIN; Start 11/15/18 at 18:00 Insulin Human Lispro (HumaLOG) 0-9 UNITS TIDWMEALS SQ ; Start 11/16/18 at 08:00 Dextrose (Dextrose 50%-Water Syringe) 12.5 gm PRN Q15MIN PRN IV SEE COMMENTS; Start 11/15/18 at 18:00 Vitamin D (Vitamin D3) 5,000 unit DAILY PO ; Start 11/16/18 at 09:00 Gabapentin (Neurontin) 300 mg PRN TID PRN PO NEUROPATHIC PAIN Last administered on 11/15/18at 22:22; Start 11/15/18 at 18:00 Oxycodone/ Acetaminophen (Percocet 5/325) 1 tab PRN Q6HRS PRN PO SEVERE PAIN Last administered on 11/16/18at 00:26; Start 11/15/18 at 18:00 Pharmacy Consult (C.diff Med Screen By Rx) 1 each 1X ONCE MC ; Start 11/15/18 at 21:00; Stop 11/15/18 at 21:01; Status DC Artificial Tears (Artificial Tears) 1 drop PRN Q15MIN PRN OU DRY EYE Last administered on 11/16/18at 09:34; Start 11/16/18 at 08:00 Ondansetron HCl (Zofran) 4 mg PRN Q6HRS PRN IV NAUSEA/VOMITING; Start 11/16/18 at 09:15; Stop 11/17/18 at 09:14 Fentanyl Citrate (Fentanyl 2ml Vial) 25 mcg PRN Q5MIN PRN IV MILD PAIN; Start 11/16/18 at 09:15; Stop 11/17/18 at 09:14 Fentanyl Citrate (Fentanyl 2ml Vial) 50 mcg PRN Q5MIN PRN IV MODERATE TO SEVERE PAIN; Start 11/16/18 at 09:15; Stop 11/17/18 at 09:14 Morphine Sulfate (Morphine Sulfate) 1 mg PRN Q10MIN PRN IV SEVERE PAIN; Start 11/16/18 at 09:15; Stop 11/17/18 at 09:14 Ringer's Solution 1,000 ml @ 30 mls/hr Q24H IV ; Start 11/16/18 at 09:03; Stop 11/16/18 at 21:02 Hydromorphone HCl (Dilaudid) 0.5 mg PRN Q10MIN PRN IV SEV PAIN, Second choice; Start 11/16/18 at 09:15; Stop 11/17/18 at 09:14 Prochlorperazine Edisylate (Compazine) 5 mg PACU PRN PRN IV NAUSEA, MRX1; Start 11/16/18 at 09:15; Stop 11/17/18 at 09:14 Cefazolin Sodium/ Dextrose 50 ml @ 100 mls/hr 1X PREOP PRN IV PRIOR TO PROCEDURE; Start 11/16/18 at 09:45 Sodium Chloride 1,000 ml @ 1,000 mls/hr Q1H PRN IV hypotension; Start 11/16/18 at 10:53; Stop 11/16/18 at 16:52 Albumin Human 200 ml @ 200 mls/hr 1X PRN PRN IV Hypotension; Start 11/16/18 at 11:00; Stop 11/16/18 at 16:59 Sodium Chloride 1,000 ml @ 400 mls/hr Q2H30M PRN IV PATENCY; Start 11/16/18 at 10:53; Stop 11/16/18 at 22:52 Info (PHARMACY MONITORING -- do not chart) 1 each PRN DAILY PRN MC SEE COMMENTS ; Start 11/16/18 at 11:00 Info (PHARMACY MONITORING -- do not chart) 1 each PRN DAILY PRN MC SEE COMMENTS ; Start 11/16/18 at 11:00; Status UNV Darbepoetin Marquez (Aranesp) 60 mcg WEEKLYHS SQ ; Start 11/16/18 at 21:00 Lidocaine HCl (Xylocaine-Mpf 1% 2ml Vial) 2 ml STK-MED ONCE .ROUTE ; Start 11/16 at 11:40; Stop 11/16/18 at 11:41; Status DC Active Scripts Active Reported Vitamin D (Cholecalciferol (Vitamin D3)) 5,000 Unit Capsule 5,000 Unit PO DAILY Humalog (Insulin Lispro) 100 Unit/1 Ml Cartridge 100 Unit SQ TIDAC PRN Percocet 5-325 Mg Tablet (Oxycodone/Acetaminophen) 1 Each Tablet 1 Tab PO PRN Q6HRS PRN Gabapentin (Gabapentin) 300 Mg Capsule 300 Mg PO PRN TID PRN Allergies Allergies: Coded Allergies: No Known Drug Allergies (Unverified , 10/30/18) ROS General: No: Chills, Night Sweats Eyes: No Double vision HEENT: No: Heacaches Respiratory: No: Cough, Shortness of breath Cardiovascular: No Chest Pain, No Palpitations Gastrointestinal: No Nausea, No Vomiting Musculoskeletal: No Joint Pain Physical Exam General: Alert, Cooperative HEENT: Atraumatic Lungs: Normal air movement Heart: Regular rate Abdomen: Soft Extremities: Other (there is trace lower extremity edema. The gross alignment is normal except for the missing second toe. This appears to be at the level of the distal interphalangeal joint. There is exposed bone. Slightly oblique otherwise fairly transverse guillotine type amputation, most consistent with a traumatic amputation. There is slight surrounding erythema but minimal tenderness. She has very poor sensation. Pulses are decreased in the dorsum of the foot. There is no pulsatile bleeding) Skin: Other (Open wound left second toe) Neuro: Normal speech, Other (sensation is decreased in the lower extremities) Psych/Mental Status: Mood NL Vitals VITALS Vital Signs Date Time Temp Pulse Resp B/P (MAP) Pulse Ox O2 Delivery O2 Flow Rate FiO2 11/16/18 07:35 Room Air 11/16/18 07:00 97.4 79 18 122/45 (70) 95 97.4 Labs Labs Laboratory Tests Test 11/15/18 17:45 11/15/18 21:59 11/16/18 05:26 11/16/18 07:31 White Blood Count 5.7 x10^3/uL (4.0-11.0) Red Blood Count 2.32 x10^6/uL (3.50-5.40) Hemoglobin 7.3 g/dL (12.0-15.5) Hematocrit 22.6 % (36.0-47.0) Mean Corpuscular Volume 97 fL (79-100) Mean Corpuscular Hemoglobin 31 pg (25-35) Mean Corpuscular Hemoglobin Concent 32 g/dL (31-37) Red Cell Distribution Width 15.8 % (11.5-14.5) Platelet Count 124 x10^3/uL (140-400) Neutrophils (%) (Auto) 65 % (31-73) Lymphocytes (%) (Auto) 25 % (24-48) Monocytes (%) (Auto) 6 % (0-9) Eosinophils (%) (Auto) 3 % (0-3) Basophils (%) (Auto) 1 % (0-3) Neutrophils # (Auto) 3.7 x10^3uL (1.8-7.7) Lymphocytes # (Auto) 1.4 x10^3/uL (1.0-4.8) Monocytes # (Auto) 0.4 x10^3/uL (0.0-1.1) Eosinophils # (Auto) 0.2 x10^3/uL (0.0-0.7) Basophils # (Auto) 0.1 x10^3/uL (0.0-0.2) Prothrombin Time 16.3 SEC (11.7-14.0) Prothromb Time International Ratio 1.3 (0.8-1.1) Sodium Level 142 mmol/L (136-145) Potassium Level 4.3 mmol/L (3.5-5.1) Chloride Level 104 mmol/L (98-107) Carbon Dioxide Level 22 mmol/L (21-32) Anion Gap 16 (6-14) Blood Urea Nitrogen 50 mg/dL (7-20) Creatinine 8.1 mg/dL (0.6-1.0) Estimated GFR (Cockcroft-Gault) 4.9 BUN/Creatinine Ratio 6 (6-20) Glucose Level 228 mg/dL (70-99) Calcium Level 8.3 mg/dL (8.5-10.1) Total Bilirubin 0.5 mg/dL (0.2-1.0) Aspartate Amino Transf (AST/SGOT) 25 U/L (15-37) Alanine Aminotransferase (ALT/SGPT) 29 U/L (14-59) Alkaline Phosphatase 320 U/L (46-116) Total Protein 6.5 g/dL (6.4-8.2) Albumin 3.3 g/dL (3.4-5.0) Albumin/Globulin Ratio 1.0 (1.0-1.7) Glucose (Fingerstick) 136 mg/dL (70-99) 164 mg/dL (70-99) 145 mg/dL (70-99) Test 11/16/18 09:30 Hepatitis B Surface Antigen Nonreactive (Nonreactive) Hepatitis B Surface Antibody Nonreactive Laboratory Tests Test 11/15/18 17:45 11/15/18 21:59 11/16/18 05:26 11/16/18 07:31 White Blood Count 5.7 x10^3/uL (4.0-11.0) Red Blood Count 2.32 x10^6/uL (3.50-5.40) Hemoglobin 7.3 g/dL (12.0-15.5) Hematocrit 22.6 % (36.0-47.0) Mean Corpuscular Volume 97 fL (79-100) Mean Corpuscular Hemoglobin 31 pg (25-35) Mean Corpuscular Hemoglobin Concent 32 g/dL (31-37) Red Cell Distribution Width 15.8 % (11.5-14.5) Platelet Count 124 x10^3/uL (140-400) Neutrophils (%) (Auto) 65 % (31-73) Lymphocytes (%) (Auto) 25 % (24-48) Monocytes (%) (Auto) 6 % (0-9) Eosinophils (%) (Auto) 3 % (0-3) Basophils (%) (Auto) 1 % (0-3) Neutrophils # (Auto) 3.7 x10^3uL (1.8-7.7) Lymphocytes # (Auto) 1.4 x10^3/uL (1.0-4.8) Monocytes # (Auto) 0.4 x10^3/uL (0.0-1.1) Eosinophils # (Auto) 0.2 x10^3/uL (0.0-0.7) Basophils # (Auto) 0.1 x10^3/uL (0.0-0.2) Prothrombin Time 16.3 SEC (11.7-14.0) Prothromb Time International Ratio 1.3 (0.8-1.1) Sodium Level 142 mmol/L (136-145) Potassium Level 4.3 mmol/L (3.5-5.1) Chloride Level 104 mmol/L (98-107) Carbon Dioxide Level 22 mmol/L (21-32) Anion Gap 16 (6-14) Blood Urea Nitrogen 50 mg/dL (7-20) Creatinine 8.1 mg/dL (0.6-1.0) Estimated GFR (Cockcroft-Gault) 4.9 BUN/Creatinine Ratio 6 (6-20) Glucose Level 228 mg/dL (70-99) Calcium Level 8.3 mg/dL (8.5-10.1) Total Bilirubin 0.5 mg/dL (0.2-1.0) Aspartate Amino Transf (AST/SGOT) 25 U/L (15-37) Alanine Aminotransferase (ALT/SGPT) 29 U/L (14-59) Alkaline Phosphatase 320 U/L (46-116) Total Protein 6.5 g/dL (6.4-8.2) Albumin 3.3 g/dL (3.4-5.0) Albumin/Globulin Ratio 1.0 (1.0-1.7) Glucose (Fingerstick) 136 mg/dL (70-99) 164 mg/dL (70-99) 145 mg/dL (70-99) Test 11/16/18 09:30 Hepatitis B Surface Antigen Nonreactive (Nonreactive) Hepatitis B Surface Antibody Nonreactive Images Images Left foot report reviewed images independently reviewed. [facility] [address] [place] [address] IMAGING REPORT Signed PATIENT: NATASHA CARL ACCOUNT: [id number] : 1950 LOCATION: ER AGE: 68 SEX: F EXAM STATUS: REG ER ORD. PHYSICIAN: HENRY CHOI APRN REASON: distal end of 2nd toe amputation PROCEDURE: FOOT LEFT 3V EXAM: Left foot, 3 views. HISTORY: Second toe amputation. COMPARISON: None. FINDINGS: 3 views of the left foot are obtained. There has been amputation of the second distal phalanx. There is no radiographic evidence of active osteomyelitis. There are extensive vascular calcifications throughout the left foot. There is no fracture, dislocation or subluxation. There is a small plantar spur. There is suspected bone demineralization. IMPRESSION: 1. Left second distal phalanx amputation. 2. No radiographic evidence of osteoarthritis. Note is made that MRI may be useful if there is concern for radiographically occult osteomyelitis. Electronically signed by: Ava Morton MD (11/15/2018 5:37 PM) [id number] Assessment/Plan Assessment/Plan Partial traumatic indication of one left lesser toe, initial encounter S98.142A Diabetic neuropathy, severe. She has minimal pain from the amputation of the toe Due to the exposed bone there is likely now the beginning of osteomyelitis. I recommended completion of the amputation, further proximal in the toe, but leaving as much toe as possible. We discussed the potential risks of wound breakdown, poor healing, need for higher amputation level, infection, or other potential surgical or anesthetic complications. All of her questions about surgery were answered and she desires to proceed. NIESHA KIRKLAND MD Nov 16, 2018 12:22
[2018-11-16] MEDS ORDERED: BUPIVACAINE-EPI 0.25%-1:200000 MPF 30 ML VIAL. ONE (13:13)
[2018-11-16] MEDS ORDERED: FAMOTIDINE 20 MG/2 ML VIAL ONE (13:16)
[2018-11-16] MEDS ORDERED: DEXAMETHASONE SOD PHOS 20 MG/5 ML VIAL. ONE (13:16)
[2018-11-16] MEDS ORDERED: ONDANSETRON PF 4 MG/2 ML VIAL. ONE (13:16)
[2018-11-16] MEDS ORDERED: LIDOCAINE 2% PF 5 ML VIAL. ONE (13:16)
[2018-11-16] MEDS ORDERED: fentaNYL PF VIAL 100 MCG/2 ML VIAL ONE (13:16)
[2018-11-16] MEDS ORDERED: PROPOFOL 20 ML IV ONE (13:16)
[2018-11-16] MEDS ORDERED: MIDAZOLAM HCL/PF 2 MG/2 ML VIAL. ONE (13:17)
[2018-11-16] MEDS ORDERED: [UNRECOGNIZED DRUG - OTHER] INJ ONE (13:43)
--- NOTE | 2018-11-16 13:50 | PDOC4 ---
Operative Note Operative Note Date of Procedure: November 16, 2018 Pre-Op Diagnosis: Partial traumatic indication of one left lesser toe, initial encounter S98.142A Post-Op Diagnosis: same Procedure: left second toe, amputation toe interphalangeal joint CPT 70408 Surgeon: Niesha Ken MD Anesthesia: General EBL: 5 mL Specimens Obtained: left second toe Complications: none Drains: none Indications for Procedure: The patient is a 68-year-old with severe diabetic neuropathy. She presented with partial left second toe amputation of unknown origin. She did not feel it happened and thought perhaps she had cut her toe. It does appear traumatic although it could be from gangrene and auto amputation. There is an open wound and exposed bone of the toe. The patient and I discussed the risks, benefits and alternatives of surgery. We discussed the potential risks of wound dehiscence, ongoing infection, need for further surgery , or other potential surgical or anesthetic complications. All of her questions about surgery were answered and she desires to proceed. Procedure in Detail: The patient was identified in the preoperative holding area. The correct left second toe was marked by me. The patient was taken to the operating room where general anesthesia was used. The patient was positioned supine on the operating table. Preoperative antibiotics were given intravenously. A timeout procedure was performed. The skin was prepared in sterile fashion using Betadine. Sterile drapes were applied. The limb was elevated to exsanguinate it. An Esmarch was used as a tourniquet around the toe. An elliptical incision was used over the middle phalanx. Sharp dissection was used. The bone was cut in the middle phalanx, and the distal portion removed. It was sent for specimen. Additional bone was resected from the phalanx to allow for a tension-free closure. Rongeurs were used for further smoothing of the bone edges, leaving the proximal phalanx intact. Copious irrigation with saline was now performed. The tourniquet was released. Bovie electrocautery was used for hemostasis. Local anesthetic using 7 mL of 0.25% bupivacaine with epinephrine was used. The skin was repaired with #3-0 Prolene simple sutures. A nice tension-free repair was obtained. Sterile dressings were applied. Needle and sponge counts were correct. There were no apparent complications. NIESHA KEN MD Nov 16, 2018 13:50
[2018-11-16] MEDS ORDERED: SEVOFLURANE 16 TO 30 MINUTES. IH ONE (13:57)
--- NOTE | 2018-11-16 15:35 | NUR ---
SW following for discharge planning. Discussed with RN, pt is a T, Th, Sa dialysis patient. Pt having a procedure today and would like to go to SNU. SW awaiting PT/OT recommendations. SW will continue to follow.
--- NOTE | 2018-11-16 15:42 | NUR ---
Wound Care Wound care consult for Right 2nd toe wound. Pt off unit at time of WC team arrival. Will follow up tomorrow
[2018-11-16] MEDS ORDERED: DARBEPOETIN ALFA 60 MCG/0.3 ML DISP.SYRIN. SQ SCH (21:00)
[2018-11-16] MEDS ORDERED: GABAPENTIN 300 MG CAPSULE. PO PRN (21:45)
[2018-11-16 23:41] VITALS: BP 112/53
--- NOTE | 2018-11-16 23:42 | NUR ---
Patient's IV accidently pulled out when patient turned over. Patient refusing to have IV restarted at this time.
[2018-11-17 01:11] LABS: HEMOGLOBIN A1C 5.8 % (4.8-5.6)
[2018-11-17 03:35] VITALS: BP 109/37
[2018-11-17 07:00] VITALS: BP 132/49
[2018-11-17] MEDS ORDERED: DEXTROSE 50% 25 GM / 50ML DISP.SYRIN. IV PRN (07:45)
[2018-11-17] MEDS: CHOLECALCIFEROL (VITAMIN D3) 5,000 UNIT CAPSULE PO SCH ×2 (08:43→08:49)
[2018-11-17] MEDS: INSULIN LISPRO 300 UNITS/3 ML INSULN.PEN. SQ SCH ×4 (08:48→20:58)
--- NOTE | 2018-11-17 10:06 | PDOC ---
PROGRESS NOTES Subjective Subjective Resting in bed. No complaints. Objective Vital Signs Vital Signs Date Time Temp Pulse Resp B/P (MAP) Pulse Ox O2 Delivery O2 Flow Rate FiO2 11/17/18 08:00 Room Air 11/17/18 07:00 97.4 66 18 132/49 (76) 99 97.4 11/16/18 15:25 2 Physical Exam Slight bloody drainage on dressing. Dressing otherwise intact. Labs Laboratory Tests Test 11/15/18 17:45 11/15/18 21:59 11/16/18 05:26 11/16/18 07:31 White Blood Count 5.7 x10^3/uL (4.0-11.0) Red Blood Count 2.32 x10^6/uL (3.50-5.40) Hemoglobin 7.3 g/dL (12.0-15.5) Hematocrit 22.6 % (36.0-47.0) Mean Corpuscular Volume 97 fL (79-100) Mean Corpuscular Hemoglobin 31 pg (25-35) Mean Corpuscular Hemoglobin Concent 32 g/dL (31-37) Red Cell Distribution Width 15.8 % (11.5-14.5) Platelet Count 124 x10^3/uL (140-400) Neutrophils (%) (Auto) 65 % (31-73) Lymphocytes (%) (Auto) 25 % (24-48) Monocytes (%) (Auto) 6 % (0-9) Eosinophils (%) (Auto) 3 % (0-3) Basophils (%) (Auto) 1 % (0-3) Neutrophils # (Auto) 3.7 x10^3uL (1.8-7.7) Lymphocytes # (Auto) 1.4 x10^3/uL (1.0-4.8) Monocytes # (Auto) 0.4 x10^3/uL (0.0-1.1) Eosinophils # (Auto) 0.2 x10^3/uL (0.0-0.7) Basophils # (Auto) 0.1 x10^3/uL (0.0-0.2) Prothrombin Time 16.3 SEC (11.7-14.0) Prothromb Time International Ratio 1.3 (0.8-1.1) Sodium Level 142 mmol/L (136-145) Potassium Level 4.3 mmol/L (3.5-5.1) Chloride Level 104 mmol/L (98-107) Carbon Dioxide Level 22 mmol/L (21-32) Anion Gap 16 (6-14) Blood Urea Nitrogen 50 mg/dL (7-20) Creatinine 8.1 mg/dL (0.6-1.0) Estimated GFR (Cockcroft-Gault) 4.9 BUN/Creatinine Ratio 6 (6-20) Glucose Level 228 mg/dL (70-99) Hemoglobin A1c 5.8 % (4.8-5.6) Calcium Level 8.3 mg/dL (8.5-10.1) Total Bilirubin 0.5 mg/dL (0.2-1.0) Aspartate Amino Transf (AST/SGOT) 25 U/L (15-37) Alanine Aminotransferase (ALT/SGPT) 29 U/L (14-59) Alkaline Phosphatase 320 U/L (46-116) Total Protein 6.5 g/dL (6.4-8.2) Albumin 3.3 g/dL (3.4-5.0) Albumin/Globulin Ratio 1.0 (1.0-1.7) Glucose (Fingerstick) 136 mg/dL (70-99) 164 mg/dL (70-99) 145 mg/dL (70-99) Test 11/16/18 09:30 11/16/18 12:59 11/16/18 22:36 11/17/18 06:59 Hepatitis B Surface Antigen Nonreactive (Nonreactive) Hepatitis B Surface Antibody Nonreactive Glucose (Fingerstick) 124 mg/dL (70-99) 382 mg/dL (70-99) 263 mg/dL (70-99) Laboratory Tests Test 11/16/18 12:59 11/16/18 22:36 11/17/18 06:59 Glucose (Fingerstick) 124 mg/dL (70-99) 382 mg/dL (70-99) 263 mg/dL (70-99) Assessment Assessment Postoperative day 1 left second toe amputation procedure Plan Plan of Care She may weight-bear in a postoperative shoe. I would continue antibiotics for 24 -48 hours postoperatively. Office follow-up with me. NIESHA KIRKLAND MD Nov 17, 2018 10:06
--- NOTE | 2018-11-17 10:25 | NUR ---
Patient is refusing hourly rounds, vital signs, and any kind of patient care.
--- NOTE | 2018-11-17 11:22 | PDOC ---
Renal-Progress Notes Subjective Notes Notes NONE History of Present Illness Hx of present illness STABLE Vitals Vitals Vital Signs Date Time Temp Pulse Resp B/P (MAP) Pulse Ox O2 Delivery O2 Flow Rate FiO2 11/17/18 08:00 Room Air 11/17/18 07:00 97.4 66 18 132/49 (76) 99 97.4 11/16/18 15:25 2 Weight Weight [ ] I.O. Intake and Output Intake and Output 11/17/18 07:00 Intake Total 690 ml Output Total 5 ml Balance 685 ml Intake Oral 540 ml IV Total 150 ml Output Estimated Blood Loss 5 ml Labs Labs Laboratory Tests Test 11/16/18 12:59 11/16/18 22:36 11/17/18 06:59 Glucose (Fingerstick) 124 mg/dL (70-99) 382 mg/dL (70-99) 263 mg/dL (70-99) Review of Systems Constitutional: yes: alert, oriented Ears/Nose/Throat: Yes: no symptom reported Eyes: Yes: no symptom reported Pulmonary: Yes no symptom reported Cardiovascular: Yes no symptom reported Gastrointestional: Yes: constipation Genitourinary: Yes: no symptom reported Musculoskeletal: Yes: no symptom reported Skin: Yes no symptom reported Psychiatric/Neurological: Yes: no symptom reported Endocrine: Yes: no symptom reported Physical Exam General Appearance: no apparent distress Respiratory: bilateral CTA Heart: S1S2 Abdomen: soft, bowel sounds present Genitourinary: bladder flat Extremities: pulses present Neurology: alert Musculoskeletal: Osteoarthritis, Other Assessment Assessment IMP DM II HTN ANEMIA ESRD 2ND TOE LEFT FOOT AMPUTATION PLAN WOUND CARE ANTIBIOTICS HD TOMORROW ORTHO EVAL AND TX CONT DIANA LEE MD Nov 17, 2018 11:21
--- NOTE | 2018-11-17 11:36 | PDOC ---
PROGRESS NOTES Chief Complaint Chief Complaint Accidental self amputation of distal phalanx, second left toe Diabetes with neuropathy, long-standing, with unknown hemoglobin A1c Hypertension, controlled Dyslipidemia chronic stable Obesity, BMI 32.3 Chronic dizziness Generalized weakness-wants SNU History of Present Illness History of Present Illness SHe is in the potty trying to BM Last BM 2 days ago Had a hand dry cleaner amputation by orthopedics 11/16/18-postop day #1 doing well She lost IV line last night and does not want one reinserted Wants correction close to [place] Also wants wound care Plan: Okay to leave IV out Social work for SNU, near [place] Consult wound care Gabapentin 300 every daily when necessary she takes-I did stop the 600 given kidney function as recognized by pharmacy Colace twice a day and mag when necessary Vitals Vitals Vital Signs Date Time Temp Pulse Resp B/P (MAP) Pulse Ox O2 Delivery O2 Flow Rate FiO2 11/17/18 08:00 Room Air 11/17/18 07:00 97.4 66 18 132/49 (76) 99 97.4 11/16/18 15:25 2 Physical Exam General: Alert, Cooperative Heart: Regular rate, Normal S1, Normal S2 Lungs: Clear, Other Abdomen: Soft Extremities: No clubbing, No cyanosis, Other (there is trace lower extremity edema. The gross alignment is normal except for the missing second toe. This appears to be at the level of the distal interphalangeal joint. There is exposed bone. Slightly oblique otherwise fairly transverse guillotine type amputation, most consistent with a traumatic amputation. There is slight surrounding erythema but minimal tenderness. She has very poor sensation. Pulses are decreased in the dorsum of the foot. There is no pulsatile bleeding) Skin: Other (dry dressing left toe) Labs LABS Laboratory Tests Test 11/16/18 12:59 11/16/18 22:36 11/17/18 06:59 Glucose (Fingerstick) 124 mg/dL (70-99) 382 mg/dL (70-99) 263 mg/dL (70-99) Review of Systems Review of Systems A 14 point ROS was completed with the following noted as positive: Other systems reviewed and negative. \CONSTITUTIONAL: No fever or chills EYES: No recent changes SKIN: No rash or itching CARDIOVASCULAR: No chest pain, syncope, palpitations, or edema RESPIRATORY: No SOB or cough GASTROINTESTINAL: No nausea, vomiting or abdominal pain NEUROLOGICAL: No headaches or weakness ENDOCRINE: No cold or heat intolerance GENITOURINARY: No urgency or frequency of urination MUSCULOSKELETAL: No back pain or joint pain LYMPHATICS: No enlarged lymph nodes PSYCHIATRIC: No anxiety or depression Assessment and Plan Assessmemt and Plan Problems Medical Problems: (1) Traumatic amputation of second toe of left foot Status: Acute Comment Review of Relevant I have reviewed the following items kai (where applicable) has been applied. Labs Laboratory Tests Test 11/15/18 17:45 11/15/18 21:59 11/16/18 05:26 11/16/18 07:31 White Blood Count 5.7 x10^3/uL (4.0-11.0) Red Blood Count 2.32 x10^6/uL (3.50-5.40) Hemoglobin 7.3 g/dL (12.0-15.5) Hematocrit 22.6 % (36.0-47.0) Mean Corpuscular Volume 97 fL (79-100) Mean Corpuscular Hemoglobin 31 pg (25-35) Mean Corpuscular Hemoglobin Concent 32 g/dL (31-37) Red Cell Distribution Width 15.8 % (11.5-14.5) Platelet Count 124 x10^3/uL (140-400) Neutrophils (%) (Auto) 65 % (31-73) Lymphocytes (%) (Auto) 25 % (24-48) Monocytes (%) (Auto) 6 % (0-9) Eosinophils (%) (Auto) 3 % (0-3) Basophils (%) (Auto) 1 % (0-3) Neutrophils # (Auto) 3.7 x10^3uL (1.8-7.7) Lymphocytes # (Auto) 1.4 x10^3/uL (1.0-4.8) Monocytes # (Auto) 0.4 x10^3/uL (0.0-1.1) Eosinophils # (Auto) 0.2 x10^3/uL (0.0-0.7) Basophils # (Auto) 0.1 x10^3/uL (0.0-0.2) Prothrombin Time 16.3 SEC (11.7-14.0) Prothromb Time International Ratio 1.3 (0.8-1.1) Sodium Level 142 mmol/L (136-145) Potassium Level 4.3 mmol/L (3.5-5.1) Chloride Level 104 mmol/L (98-107) Carbon Dioxide Level 22 mmol/L (21-32) Anion Gap 16 (6-14) Blood Urea Nitrogen 50 mg/dL (7-20) Creatinine 8.1 mg/dL (0.6-1.0) Estimated GFR (Cockcroft-Gault) 4.9 BUN/Creatinine Ratio 6 (6-20) Glucose Level 228 mg/dL (70-99) Hemoglobin A1c 5.8 % (4.8-5.6) Calcium Level 8.3 mg/dL (8.5-10.1) Total Bilirubin 0.5 mg/dL (0.2-1.0) Aspartate Amino Transf (AST/SGOT) 25 U/L (15-37) Alanine Aminotransferase (ALT/SGPT) 29 U/L (14-59) Alkaline Phosphatase 320 U/L (46-116) Total Protein 6.5 g/dL (6.4-8.2) Albumin 3.3 g/dL (3.4-5.0) Albumin/Globulin Ratio 1.0 (1.0-1.7) Glucose (Fingerstick) 136 mg/dL (70-99) 164 mg/dL (70-99) 145 mg/dL (70-99) Test 11/16/18 09:30 11/16/18 12:59 11/16/18 22:36 11/17/18 06:59 Hepatitis B Surface Antigen Nonreactive (Nonreactive) Hepatitis B Surface Antibody Nonreactive Glucose (Fingerstick) 124 mg/dL (70-99) 382 mg/dL (70-99) 263 mg/dL (70-99) Laboratory Tests Test 11/16/18 12:59 11/16/18 22:36 11/17/18 06:59 Glucose (Fingerstick) 124 mg/dL (70-99) 382 mg/dL (70-99) 263 mg/dL (70-99) Medications Current Medications Cefazolin Sodium/ Dextrose 50 ml @ 100 mls/hr 1X ONCE IV Last administered on 11/15/18at 17:54; Start 11/15/18 at 17:00; Stop 11/15/18 at 17:29; Status DC Lidocaine/ Epinephrine (Let Topical) 3 ml 1X ONCE TP ; Start 11/15/18 at 17:30 ; Stop 11/15/18 at 17:31; Status DC Acetaminophen (Tylenol) 500 mg PRN Q6HRS PRN PO MILD PAIN / TEMP; Start at 18:00 Acetaminophen/ Codeine Phosphate (Tylenol #3) 1 tab PRN Q6HRS PRN PO MODERATE PAIN; Start 11/15/18 at 18:00 Temazepam (Restoril) 7.5 mg PRN QHS PRN PO INSOMNIA; Start 11/15/18 at 18:00 Morphine Sulfate (Morphine Sulfate) 2 mg PRN Q2HR PRN IV PAIN; Start 11/15/18 at 18:00 Insulin Human Lispro (HumaLOG) 0-9 UNITS TIDWMEALS SQ ; Start 11/16/18 at 08:00 ; Stop 11/16/18 at 22:46; Status DC Dextrose (Dextrose 50%-Water Syringe) 12.5 gm PRN Q15MIN PRN IV SEE COMMENTS; Start 11/15/18 at 18:00; Stop 11/17/18 at 07:52; Status DC Vitamin D (Vitamin D3) 5,000 unit DAILY PO ; Start 11/16/18 at 09:00 Gabapentin (Neurontin) 300 mg PRN TID PRN PO NEUROPATHIC PAIN Last administered on 11/15/18at 22:22; Start 11/15/18 at 18:00 Oxycodone/ Acetaminophen (Percocet 5/325) 1 tab PRN Q6HRS PRN PO SEVERE PAIN Last administered on 11/16/18at 22:07; Start 11/15/18 at 18:00 Pharmacy Consult (C.diff Med Screen By Rx) 1 each 1X ONCE MC ; Start 11/15/18 at 21:00; Stop 11/15/18 at 21:01; Status DC Artificial Tears (Artificial Tears) 1 drop PRN Q15MIN PRN OU DRY EYE Last administered on 11/16/18at 09:34; Start 11/16/18 at 08:00 Ondansetron HCl (Zofran) 4 mg PRN Q6HRS PRN IV NAUSEA/VOMITING; Start 11/16/18 at 09:15; Stop 11/17/18 at 09:14; Status DC Fentanyl Citrate (Fentanyl 2ml Vial) 25 mcg PRN Q5MIN PRN IV MILD PAIN; Start 11/16/18 at 09:15; Stop 11/17/18 at 09:14; Status DC Fentanyl Citrate (Fentanyl 2ml Vial) 50 mcg PRN Q5MIN PRN IV MODERATE TO SEVERE PAIN; Start 11/16/18 at 09:15; Stop 11/17/18 at 09:14; Status DC Morphine Sulfate (Morphine Sulfate) 1 mg PRN Q10MIN PRN IV SEVERE PAIN; Start 11/16/18 at 09:15; Stop 11/17/18 at 09:14; Status DC Ringer's Solution 1,000 ml @ 30 mls/hr Q24H IV ; Start 11/16/18 at 09:03; Stop 11/16/18 at 21:02; Status DC Hydromorphone HCl (Dilaudid) 0.5 mg PRN Q10MIN PRN IV SEV PAIN, Second choice; Start 11/16/18 at 09:15; Stop 11/17/18 at 09:14; Status DC Prochlorperazine Edisylate (Compazine) 5 mg PACU PRN PRN IV NAUSEA, MRX1; Start 11/16/18 at 09:15; Stop 11/17/18 at 09:14; Status DC Cefazolin Sodium/ Dextrose 50 ml @ 100 mls/hr 1X PREOP PRN IV PRIOR TO PROCEDURE; Start 11/16/18 at 09:45 Sodium Chloride 1,000 ml @ 1,000 mls/hr Q1H PRN IV hypotension; Start 11/16/18 at 10:53; Stop 11/16/18 at 16:52; Status DC Albumin Human 200 ml @ 200 mls/hr 1X PRN PRN IV Hypotension; Start 11/16/18 at 11:00; Stop 11/16/18 at 16:59; Status DC Sodium Chloride 1,000 ml @ 400 mls/hr Q2H30M PRN IV PATENCY; Start 11/16/18 at 10:53; Stop 11/16/18 at 22:52; Status DC Info (PHARMACY MONITORING -- do not chart) 1 each PRN DAILY PRN MC SEE COMMENTS ; Start 11/16/18 at 11:00 Info (PHARMACY MONITORING -- do not chart) 1 each PRN DAILY PRN MC SEE COMMENTS ; Start 11/16/18 at 11:00; Status UNV Darbepoetin Marquez (Aranesp) 60 mcg WEEKLYHS SQ ; Start 11/16/18 at 21:00 Lidocaine HCl (Xylocaine-Mpf 1% 2ml Vial) 2 ml STK-MED ONCE .ROUTE ; Start 11/16 at 11:40; Stop 11/16/18 at 11:41; Status DC Propofol 20 ml @ As Directed STK-MED ONCE IV ; Start 11/16/18 at 13:16; Stop 08/25 at 13:17; Status DC Dexamethasone Sodium Phosphate (Decadron) 20 mg STK-MED ONCE .ROUTE ; Start 08/25 at 13:16; Stop 11/16/18 at 13:17; Status DC Famotidine (Pepcid Vial) 20 mg STK-MED ONCE .ROUTE ; Start 11/16/18 at 13:16; Stop 11/16/18 at 13:17; Status DC Lidocaine HCl (Lidocaine Pf 2% Vial) 5 ml STK-MED ONCE .ROUTE ; Start 11/16/18 at 13:16; Stop 11/16/18 at 13:17; Status DC Ondansetron HCl (Zofran) 4 mg STK-MED ONCE .ROUTE ; Start 11/16/18 at 13:16; Stop 11/16/18 at 13:17; Status DC Fentanyl Citrate (Fentanyl 2ml Vial) 100 mcg STK-MED ONCE .ROUTE ; Start at 13:16; Stop 11/16/18 at 13:17; Status DC Midazolam HCl (Versed) 2 mg STK-MED ONCE .ROUTE ; Start 11/16/18 at 13:17; Stop 11/16/18 at 13:18; Status DC Ephedrine Sulfate (Akovaz) 50 mg STK-MED ONCE .ROUTE ; Start 11/16/18 at 13:35; Stop 11/16/18 at 13:36; Status DC Bupivacaine HCl/ Epinephrine Bitart (Sensorcaine-Epi 0.25%-1:[id number]) 10 ml STK- MED ONCE INJ Last administered on 11/16/18at 13:43; Start 11/16/18 at 13:43; Stop 11/16/18 at 13:48; Status DC Sevoflurane (Ultane) 15 ml STK-MED ONCE IH ; Start 11/16/18 at 13:57; Stop 11/16 at 13:58; Status DC Bupivacaine HCl/ Epinephrine Bitart (Sensorcaine-Epi 0.25%-1:[id number] Mpf) 30 ml STK-MED ONCE .ROUTE ; Start 11/16/18 at 13:13; Stop 11/16/18 at 14:14; Status DC Gabapentin (Neurontin) 600 mg PRN BID PRN PO GOUT Last administered on at 22:07; Start 11/16/18 at 21:45; Stop 11/17/18 at 11:12; Status DC Insulin Human Lispro (HumaLOG) 0-9 UNITS HS SQ Last administered on 11/16/18at 23:00; Start 11/16/18 at 22:45 Insulin Human Lispro (HumaLOG) 0-9 UNITS TIDWMEALS SQ Last administered on 11/17at 08:48; Start 11/17/18 at 08:00 Dextrose (Dextrose 50%-Water Syringe) 12.5 gm PRN Q15MIN PRN IV SEE COMMENTS; Start 11/17/18 at 07:45 Active Scripts Active Reported Vitamin D (Cholecalciferol (Vitamin D3)) 5,000 Unit Capsule 5,000 Unit PO DAILY Humalog (Insulin Lispro) 100 Unit/1 Ml Cartridge 100 Unit SQ TIDAC PRN Percocet 5-325 Mg Tablet (Oxycodone/Acetaminophen) 1 Each Tablet 1 Tab PO PRN Q6HRS PRN Gabapentin (Gabapentin) 300 Mg Capsule 300 Mg PO PRN TID PRN Vitals/I & O Vital Sign - Last 24 Hours 11/16/18 11/16/18 11/16/18 11/16/18 12:00 13:58 14:13 14:28 Temp 97.5 97.3 97.5 97.5 97.5 97.3 97.5 97.5 Pulse 74 85 74 84 Resp 20 22 20 22 B/P (MAP) 139/62 117/37 138/52 144/26 Pulse Ox 95 96 100 100 O2 Delivery Room Air Simple Mask Simple Mask Simple Mask O2 Flow Rate 8 8 11/16/18 11/16/18 11/16/18 11/16/18 14:43 14:58 15:14 15:25 Temp 97.5 97.5 97.5 97.5 97.5 97.5 Pulse 90 86 84 Resp 22 20 24 B/P (MAP) 129/32 147/52 151/42 Pulse Ox 92 90 94 O2 Delivery Room Air Room Air Nasal Cannula Room Air O2 Flow Rate 2 2 11/16/18 11/16/18 11/16/18 11/16/18 19:50 22:07 23:41 23:59 Temp 98.8 98.8 Pulse 89 Resp 20 18 20 B/P (MAP) 112/53 (72) Pulse Ox 88 O2 Delivery Room Air Room Air Room Air Room Air 11/17/18 11/17/18 11/17/18 03:35 07:00 08:00 Temp 98.5 97.4 98.5 97.4 Pulse 87 66 Resp 18 18 B/P (MAP) 109/37 (61) 132/49 (76) Pulse Ox 95 99 O2 Delivery Room Air Room Air Room Air Intake and Output 11/16/18 11/16/18 11/17/18 15:00 23:00 07:00 Intake Total 150 ml 540 ml Output Total 5 ml Balance 145 ml 540 ml DHRUV LACEY MD Nov 17, 2018 11:36
[2018-11-17] MEDS ORDERED: GABAPENTIN 300 MG CAPSULE. PO PRN (11:45)
[2018-11-17] MEDS ORDERED: MAGNESIUM HYDROXIDE 2,400 MG/30 ML ORAL.SUSP. PO PRN (11:45)
[2018-11-17] MEDS: DOCUSATE SODIUM 100 MG CAPSULE. PO SCH (11:59)
[2018-11-17] MEDS ORDERED: ceFAZolin 2GM PREMIX 2 GM/50 ML BAG IV ONE (12:00)
--- NOTE | 2018-11-17 14:48 | NUR ---
Wound care: Patient seen per wound care consult. See wound assessment. Dressings removed and wounds cleansed, assessed, measured, and pictured. Patient has stage I on right heel, amputation site to right 2nd toe, and calphylaxis to LLQ abdomen. To the right heel recommendations for skin prep and foam dressing. To the right 2nd toe amputation site recommendations for xeroform gauze, gauze and kerlix. and lastly to the LLq abdomen wounds patient has own dressings that she has requested to use, Silvadene, collagen and nonadherent gauze pads and tape. Patient has these dressings at bedside and wound care agreeable to use per patient request as patient is seen at [facility] wound care. All dressings applied and patient tolerated well. Patient brief changed and coccyx is closed but is reddened. Calazime applied and brief changed. Patient repositioned in bed and turned to right side. Bilateral heels floated. Dressing change instructions left in room. Will follow patient regarding wound care. Call light in reach.
[2018-11-17 15:00] VITALS: BP 107/44
[2018-11-17] MEDS: silver sulfADIAZINE 1% CREAM 25GM TUBE. TP SCH ×2 (15:00→20:58)
--- NOTE | 2018-11-17 15:00 | NUR ---
Patient pulled out dhaliwal catheter, spoke to Dr. Nick's first aid officer and was told they spoke to Araseli Patiño APRN and it was ok to re-insert dhaliwal catheter. Addendum: 11/17/18 at 1825 by TRUDY PATEL RN Note entered on wrong patient.
--- NOTE | 2018-11-17 15:51 | NUR ---
SW following for discharge planning. Discussed with RN, pt is from home with . SW responding to referral for SNU, SW met with pt and pt's , Ishmael at bedside. Pt was asleep and did not arose when SW greeted. LORENA spoke with Ishmael about SNU placement upon discharge, Ishmael advised he is not sure if pt would be willing to go to SNU. SW to follow up with pt tomorrow morning to discuss. OT has recommended SNU, there is no PT notes yet. RN notified. SW will continue to follow.
[2018-11-17 19:00] VITALS: BP 103/53
[2018-11-17 23:01] VITALS: BP 112/33
[2018-11-18 03:00] VITALS: BP 109/55
[2018-11-18 05:45] LABS: HEMATOCRIT 19.1 % (36.0-47.0); HEMOGLOBIN 6.3 g/dL (12.0-15.5)
[2018-11-18 05:48] LABS: CALCIUM 7.7 mg/dL (8.5-10.1); CREATININE 6.1 mg/dL (0.6-1.0); GFR 6.8; POTASSIUM 4.2 mmol/L (3.5-5.1)
[2018-11-18 07:00] VITALS: BP 103/54
[2018-11-18] MEDS: CHOLECALCIFEROL (VITAMIN D3) 5,000 UNIT CAPSULE PO SCH (07:20)
[2018-11-18] MEDS: DOCUSATE SODIUM 100 MG CAPSULE. PO SCH (07:20)
[2018-11-18] MEDS: INSULIN LISPRO 300 UNITS/3 ML INSULN.PEN. SQ SCH ×4 (07:51→21:00)
[2018-11-18] MEDS: silver sulfADIAZINE 1% CREAM 25GM TUBE. TP SCH ×2 (07:53→21:00)
[2018-11-18] MEDS ORDERED: IV NORMAL SALINE 1000ML BAG 1,000 ML IV PRN ×2 (07:57)
[2018-11-18] MEDS ORDERED: DIALYSIS PATIENT. MC PRN ×2 (08:00)
--- NOTE | 2018-11-18 10:46 | PDOC ---
PROGRESS NOTES Chief Complaint Chief Complaint Accidental self amputation of distal phalanx, second left toe Diabetes with neuropathy, long-standing, with unknown hemoglobin A1c Hypertension, controlled Dyslipidemia chronic stable Obesity, BMI 32.3 Chronic dizziness Generalized weakness-wants SNU Acute precipitous drop in hemoglobin, 11/18/18 History of Present Illness History of Present Illness In dialysis No issues with the great toe amputation Hemoglobin 6.3 today plan: transfuse during dialysis 1 pRBC Social work looking at SNU We'll discharge once We have in SNU in place and repeat H&H is stable Dialysis per renal BS Ok Vitals Vitals Vital Signs Date Time Temp Pulse Resp B/P (MAP) Pulse Ox O2 Delivery O2 Flow Rate FiO2 11/18/18 07:16 Room Air 11/18/18 07:00 97.6 79 18 103/54 (70) 95 97.6 Physical Exam General: Alert, Cooperative Heart: Regular rate, Normal S1, Normal S2 Lungs: Clear, Other Abdomen: Soft Extremities: No clubbing, No cyanosis, Other (there is trace lower extremity edema. The gross alignment is normal except for the missing second toe. This appears to be at the level of the distal interphalangeal joint. There is exposed bone. Slightly oblique otherwise fairly transverse guillotine type amputation, most consistent with a traumatic amputation. There is slight surrounding erythema but minimal tenderness. She has very poor sensation. Pulses are decreased in the dorsum of the foot. There is no pulsatile bleeding) Skin: Other (dry dressing left toe) Labs LABS Laboratory Tests Test 11/17/18 11:31 11/17/18 16:59 11/17/18 20:50 11/18/18 04:40 Glucose (Fingerstick) 272 mg/dL (70-99) 154 mg/dL (70-99) 134 mg/dL (70-99) Hemoglobin 6.3 g/dL (12.0-15.5) Hematocrit 19.1 % (36.0-47.0) Mean Corpuscular Hemoglobin Concent 33 g/dL (31-37) Sodium Level 141 mmol/L (136-145) Potassium Level 4.2 mmol/L (3.5-5.1) Chloride Level 102 mmol/L (98-107) Carbon Dioxide Level 28 mmol/L (21-32) Anion Gap 11 (6-14) Blood Urea Nitrogen 46 mg/dL (7-20) Creatinine 6.1 mg/dL (0.6-1.0) Estimated GFR (Cockcroft-Gault) 6.8 Glucose Level 154 mg/dL (70-99) Calcium Level 7.7 mg/dL (8.5-10.1) Test 11/18/18 07:33 Glucose (Fingerstick) 150 mg/dL (70-99) Review of Systems Review of Systems A 14 point ROS was completed with the following noted as positive: Other systems reviewed and negative. \CONSTITUTIONAL: No fever or chills EYES: No recent changes SKIN: No rash or itching CARDIOVASCULAR: No chest pain, syncope, palpitations, or edema RESPIRATORY: No SOB or cough GASTROINTESTINAL: No nausea, vomiting or abdominal pain NEUROLOGICAL: No headaches or weakness ENDOCRINE: No cold or heat intolerance GENITOURINARY: No urgency or frequency of urination MUSCULOSKELETAL: No back pain or joint pain LYMPHATICS: No enlarged lymph nodes PSYCHIATRIC: No anxiety or depression Assessment and Plan Assessmemt and Plan Problems Medical Problems: (1) Traumatic amputation of second toe of left foot Status: Acute Comment Review of Relevant I have reviewed the following items kai (where applicable) has been applied. Labs Laboratory Tests Test 11/16/18 12:59 11/16/18 22:36 11/17/18 06:59 11/17/18 11:31 Glucose (Fingerstick) 124 mg/dL (70-99) 382 mg/dL (70-99) 263 mg/dL (70-99) 272 mg/dL (70-99) Test 11/17/18 16:59 11/17/18 20:50 11/18/18 04:40 11/18/18 07:33 Glucose (Fingerstick) 154 mg/dL (70-99) 134 mg/dL (70-99) 150 mg/dL (70-99) Hemoglobin 6.3 g/dL (12.0-15.5) Hematocrit 19.1 % (36.0-47.0) Mean Corpuscular Hemoglobin Concent 33 g/dL (31-37) Sodium Level 141 mmol/L (136-145) Potassium Level 4.2 mmol/L (3.5-5.1) Chloride Level 102 mmol/L (98-107) Carbon Dioxide Level 28 mmol/L (21-32) Anion Gap 11 (6-14) Blood Urea Nitrogen 46 mg/dL (7-20) Creatinine 6.1 mg/dL (0.6-1.0) Estimated GFR (Cockcroft-Gault) 6.8 Glucose Level 154 mg/dL (70-99) Calcium Level 7.7 mg/dL (8.5-10.1) Laboratory Tests Test 11/17/18 11:31 11/17/18 16:59 11/17/18 20:50 11/18/18 04:40 Glucose (Fingerstick) 272 mg/dL (70-99) 154 mg/dL (70-99) 134 mg/dL (70-99) Hemoglobin 6.3 g/dL (12.0-15.5) Hematocrit 19.1 % (36.0-47.0) Mean Corpuscular Hemoglobin Concent 33 g/dL (31-37) Sodium Level 141 mmol/L (136-145) Potassium Level 4.2 mmol/L (3.5-5.1) Chloride Level 102 mmol/L (98-107) Carbon Dioxide Level 28 mmol/L (21-32) Anion Gap 11 (6-14) Blood Urea Nitrogen 46 mg/dL (7-20) Creatinine 6.1 mg/dL (0.6-1.0) Estimated GFR (Cockcroft-Gault) 6.8 Glucose Level 154 mg/dL (70-99) Calcium Level 7.7 mg/dL (8.5-10.1) Test 11/18/18 07:33 Glucose (Fingerstick) 150 mg/dL (70-99) Medications Current Medications Cefazolin Sodium/ Dextrose 50 ml @ 100 mls/hr 1X ONCE IV Last administered on 11/15/18at 17:54; Start 11/15/18 at 17:00; Stop 11/15/18 at 17:29; Status DC Lidocaine/ Epinephrine (Let Topical) 3 ml 1X ONCE TP ; Start 11/15/18 at 17:30 ; Stop 11/15/18 at 17:31; Status DC Acetaminophen (Tylenol) 500 mg PRN Q6HRS PRN PO MILD PAIN / TEMP; Start at 18:00 Acetaminophen/ Codeine Phosphate (Tylenol #3) 1 tab PRN Q6HRS PRN PO MODERATE PAIN; Start 11/15/18 at 18:00 Temazepam (Restoril) 7.5 mg PRN QHS PRN PO INSOMNIA; Start 11/15/18 at 18:00 Morphine Sulfate (Morphine Sulfate) 2 mg PRN Q2HR PRN IV PAIN; Start 11/15/18 at 18:00 Insulin Human Lispro (HumaLOG) 0-9 UNITS TIDWMEALS SQ ; Start 11/16/18 at 08:00 ; Stop 11/16/18 at 22:46; Status DC Dextrose (Dextrose 50%-Water Syringe) 12.5 gm PRN Q15MIN PRN IV SEE COMMENTS; Start 11/15/18 at 18:00; Stop 11/17/18 at 07:52; Status DC Vitamin D (Vitamin D3) 5,000 unit DAILY PO ; Start 11/16/18 at 09:00 Gabapentin (Neurontin) 300 mg PRN TID PRN PO NEUROPATHIC PAIN Last administered on 11/15/18at 22:22; Start 11/15/18 at 18:00; Stop 11/17/18 at 11:35 ; Status DC Oxycodone/ Acetaminophen (Percocet 5/325) 1 tab PRN Q6HRS PRN PO SEVERE PAIN Last administered on 11/16/18at 22:07; Start 11/15/18 at 18:00 Pharmacy Consult (C.diff Med Screen By Rx) 1 each 1X ONCE MC ; Start 11/15/18 at 21:00; Stop 11/15/18 at 21:01; Status DC Artificial Tears (Artificial Tears) 1 drop PRN Q15MIN PRN OU DRY EYE Last administered on 11/16/18at 09:34; Start 11/16/18 at 08:00 Ondansetron HCl (Zofran) 4 mg PRN Q6HRS PRN IV NAUSEA/VOMITING; Start 11/16/18 at 09:15; Stop 11/17/18 at 09:14; Status DC Fentanyl Citrate (Fentanyl 2ml Vial) 25 mcg PRN Q5MIN PRN IV MILD PAIN; Start 11/16/18 at 09:15; Stop 11/17/18 at 09:14; Status DC Fentanyl Citrate (Fentanyl 2ml Vial) 50 mcg PRN Q5MIN PRN IV MODERATE TO SEVERE PAIN; Start 11/16/18 at 09:15; Stop 11/17/18 at 09:14; Status DC Morphine Sulfate (Morphine Sulfate) 1 mg PRN Q10MIN PRN IV SEVERE PAIN; Start 11/16/18 at 09:15; Stop 11/17/18 at 09:14; Status DC Ringer's Solution 1,000 ml @ 30 mls/hr Q24H IV ; Start 11/16/18 at 09:03; Stop 11/16/18 at 21:02; Status DC Hydromorphone HCl (Dilaudid) 0.5 mg PRN Q10MIN PRN IV SEV PAIN, Second choice; Start 11/16/18 at 09:15; Stop 11/17/18 at 09:14; Status DC Prochlorperazine Edisylate (Compazine) 5 mg PACU PRN PRN IV NAUSEA, MRX1; Start 11/16/18 at 09:15; Stop 11/17/18 at 09:14; Status DC Cefazolin Sodium/ Dextrose 50 ml @ 100 mls/hr 1X PREOP PRN IV PRIOR TO PROCEDURE; Start 11/16/18 at 09:45; Stop 11/17/18 at 15:16; Status DC Sodium Chloride 1,000 ml @ 1,000 mls/hr Q1H PRN IV hypotension; Start 11/16/18 at 10:53; Stop 11/16/18 at 16:52; Status DC Albumin Human 200 ml @ 200 mls/hr 1X PRN PRN IV Hypotension; Start 11/16/18 at 11:00; Stop 11/16/18 at 16:59; Status DC Sodium Chloride 1,000 ml @ 400 mls/hr Q2H30M PRN IV PATENCY; Start 11/16/18 at 10:53; Stop 11/16/18 at 22:52; Status DC Info (PHARMACY MONITORING -- do not chart) 1 each PRN DAILY PRN MC SEE COMMENTS ; Start 11/16/18 at 11:00; Stop 11/18/18 at 08:07; Status DC Info (PHARMACY MONITORING -- do not chart) 1 each PRN DAILY PRN MC SEE COMMENTS ; Start 11/16/18 at 11:00; Status UNV Darbepoetin Marquez (Aranesp) 60 mcg WEEKLYHS SQ ; Start 11/16/18 at 21:00 Lidocaine HCl (Xylocaine-Mpf 1% 2ml Vial) 2 ml STK-MED ONCE .ROUTE ; Start 11/16 at 11:40; Stop 11/16/18 at 11:41; Status DC Propofol 20 ml @ As Directed STK-MED ONCE IV ; Start 11/16/18 at 13:16; Stop 08/25 at 13:17; Status DC Dexamethasone Sodium Phosphate (Decadron) 20 mg STK-MED ONCE .ROUTE ; Start 08/25 at 13:16; Stop 11/16/18 at 13:17; Status DC Famotidine (Pepcid Vial) 20 mg STK-MED ONCE .ROUTE ; Start 11/16/18 at 13:16; Stop 11/16/18 at 13:17; Status DC Lidocaine HCl (Lidocaine Pf 2% Vial) 5 ml STK-MED ONCE .ROUTE ; Start 11/16/18 at 13:16; Stop 11/16/18 at 13:17; Status DC Ondansetron HCl (Zofran) 4 mg STK-MED ONCE .ROUTE ; Start 11/16/18 at 13:16; Stop 11/16/18 at 13:17; Status DC Fentanyl Citrate (Fentanyl 2ml Vial) 100 mcg STK-MED ONCE .ROUTE ; Start at 13:16; Stop 11/16/18 at 13:17; Status DC Midazolam HCl (Versed) 2 mg STK-MED ONCE .ROUTE ; Start 11/16/18 at 13:17; Stop 11/16/18 at 13:18; Status DC Ephedrine Sulfate (Akovaz) 50 mg STK-MED ONCE .ROUTE ; Start 11/16/18 at 13:35; Stop 11/16/18 at 13:36; Status DC Bupivacaine HCl/ Epinephrine Bitart (Sensorcaine-Epi 0.25%-1:[id number]) 10 ml STK- MED ONCE INJ Last administered on 11/16/18at 13:43; Start 11/16/18 at 13:43; Stop 11/16/18 at 13:48; Status DC Sevoflurane (Ultane) 15 ml STK-MED ONCE IH ; Start 11/16/18 at 13:57; Stop 11/16 at 13:58; Status DC Bupivacaine HCl/ Epinephrine Bitart (Sensorcaine-Epi 0.25%-1:154110 Mpf) 30 ml STK-MED ONCE .ROUTE ; Start 11/16/18 at 13:13; Stop 11/16/18 at 14:14; Status DC Gabapentin (Neurontin) 600 mg PRN BID PRN PO GOUT Last administered on at 22:07; Start 11/16/18 at 21:45; Stop 11/17/18 at 11:12; Status DC Insulin Human Lispro (HumaLOG) 0-9 UNITS HS SQ Last administered on 11/16/18at 23:00; Start 11/16/18 at 22:45 Insulin Human Lispro (HumaLOG) 0-9 UNITS TIDWMEALS SQ Last administered on 11/17at 17:15; Start 11/17/18 at 08:00 Dextrose (Dextrose 50%-Water Syringe) 12.5 gm PRN Q15MIN PRN IV SEE COMMENTS; Start 11/17/18 at 07:45 Gabapentin (Neurontin) 300 mg PRN DAILY PRN PO NEUROPATHIC PAIN; Start at 11:45 Docusate Sodium (Colace) 100 mg DAILY PO ; Start 11/17/18 at 12:00 Magnesium Hydroxide (Milk Of Magnesia) 2,400 mg PRN DAILY PRN PO CONSTIPATION; Start 11/17/18 at 11:45 Silver Sulfadiazine (Silvadene) 1 katia BID TP ; Start 11/17/18 at 15:00 Cefazolin Sodium/ Dextrose (Ancef 2gm Premix) 2 gm STK-MED ONCE IV ; Start 11/17 at 12:00; Stop 11/17/18 at 15:32; Status DC Sodium Chloride 1,000 ml @ 1,000 mls/hr Q1H PRN IV hypotension; Start 11/18/18 at 07:57; Stop 11/18/18 at 13:56 Sodium Chloride 1,000 ml @ 400 mls/hr Q2H30M PRN IV PATENCY; Start 11/18/18 at 07:57; Stop 11/18/18 at 19:56 Info (PHARMACY MONITORING -- do not chart) 1 each PRN DAILY PRN MC SEE COMMENTS ; Start 11/18/18 at 08:00; Status UNV Info (PHARMACY MONITORING -- do not chart) 1 each PRN DAILY PRN MC SEE COMMENTS ; Start 11/18/18 at 08:00 Active Scripts Active Reported Vitamin D (Cholecalciferol (Vitamin D3)) 5,000 Unit Capsule 5,000 Unit PO DAILY Humalog (Insulin Lispro) 100 Unit/1 Ml Cartridge 100 Unit SQ TIDAC PRN Percocet 5-325 Mg Tablet (Oxycodone/Acetaminophen) 1 Each Tablet 1 Tab PO PRN Q6HRS PRN Gabapentin (Gabapentin) 300 Mg Capsule 300 Mg PO PRN TID PRN Vitals/I & O Vital Sign - Last 24 Hours 11/17/18 11/17/18 11/17/18 11/17/18 15:00 19:00 20:00 23:01 Temp 97.9 98.6 98.6 97.9 98.6 98.6 Pulse 67 76 91 Resp 18 16 14 B/P (MAP) 107/44 (65) 103/53 (70) 112/33 (59) Pulse Ox 96 94 94 O2 Delivery Room Air Room Air Room Air Room Air 11/18/18 11/18/18 11/18/18 03:00 07:00 07:16 Temp 98.0 97.6 98.0 97.6 Pulse 89 79 Resp 16 18 B/P (MAP) 109/55 (73) 103/54 (70) Pulse Ox 92 95 O2 Delivery Room Air Room Air Room Air Intake and Output 11/17/18 11/17/18 11/18/18 14:59 22:59 06:59 Intake Total 500 ml 0 ml Balance 500 ml 0 ml DHRUV LACEY MD Nov 18, 2018 10:46
--- NOTE | 2018-11-18 12:07 | PDOC ---
Renal-Progress Notes Subjective Notes Notes HAS NO PAIN History of Present Illness Hx of present illness STABLE Vitals Vitals Vital Signs Date Time Temp Pulse Resp B/P (MAP) Pulse Ox O2 Delivery O2 Flow Rate FiO2 11/18/18 07:16 Room Air 11/18/18 07:00 97.6 79 18 103/54 (70) 95 97.6 Weight Weight [ ] I.O. Intake and Output Intake and Output 11/18/18 06:59 Intake Total 500 ml Balance 500 ml Intake Oral 500 ml # Voids 3 # Bowel Movements 1 Labs Labs Laboratory Tests Test 11/17/18 16:59 11/17/18 20:50 11/18/18 04:40 11/18/18 07:33 Glucose (Fingerstick) 154 mg/dL (70-99) 134 mg/dL (70-99) 150 mg/dL (70-99) Hemoglobin 6.3 g/dL (12.0-15.5) Hematocrit 19.1 % (36.0-47.0) Mean Corpuscular Hemoglobin Concent 33 g/dL (31-37) Sodium Level 141 mmol/L (136-145) Potassium Level 4.2 mmol/L (3.5-5.1) Chloride Level 102 mmol/L (98-107) Carbon Dioxide Level 28 mmol/L (21-32) Anion Gap 11 (6-14) Blood Urea Nitrogen 46 mg/dL (7-20) Creatinine 6.1 mg/dL (0.6-1.0) Estimated GFR (Cockcroft-Gault) 6.8 Glucose Level 154 mg/dL (70-99) Calcium Level 7.7 mg/dL (8.5-10.1) Review of Systems Constitutional: yes: alert, oriented Ears/Nose/Throat: Yes: no symptom reported Eyes: Yes: no symptom reported Pulmonary: Yes no symptom reported Cardiovascular: Yes no symptom reported Gastrointestional: Yes: constipation Genitourinary: Yes: no symptom reported Musculoskeletal: Yes: no symptom reported Skin: Yes no symptom reported Psychiatric/Neurological: Yes: no symptom reported Endocrine: Yes: no symptom reported Physical Exam General Appearance: no apparent distress Respiratory: bilateral CTA Heart: S1S2 Abdomen: soft, bowel sounds present Genitourinary: bladder flat Extremities: pulses present Neurology: alert Musculoskeletal: Osteoarthritis, Other Assessment Assessment IMP DM II HTN ANEMIA ESRD 2ND TOE LEFT FOOT AMPUTATION PLAN WOUND CARE ANTIBIOTICS HD TODAY UF TO DW DIANA NORTON MD Nov 18, 2018 12:07
--- NOTE | 2018-11-18 12:10 | NUR ---
Picked up unit of blood from blood bank and gave to dialysis nurse to administer during dialysis.
[2018-11-18 12:30] LABS: HEMATOCRIT 23.3 % (36.0-47.0); HEMOGLOBIN 7.7 g/dL (12.0-15.5); RED BLOOD COUNT 2.47 x10^6/uL (3.50-5.40); RED CELL DISTRIBUTION WIDTH 16.6 % (11.5-14.5); WHITE BLOOD COUNT 5.1 x10^3/uL (4.0-11.0)
--- NOTE | 2018-11-18 13:23 | NUR ---
SW following for discharge planning. Discussed with RN. LORENA met with pt to discuss SNU referral. Pt is agreeable to SNU, she would like to go to [facility] but reported they won't take her because she "owe's them too much money". Pt informed SW she would referral sent to [facility]. LORENA faxed referral, awaiting confirmation of acceptance ([phone], fax: [phone]).
[2018-11-18 15:00] VITALS: BP 106/47
[2018-11-18] MEDS: oxyCODONE/APAP 5/325 1 TAB TABLET PO PRN (15:28)
--- NOTE | 2018-11-18 16:12 | PATHOLOGY ---
[facility] Accession Number: [id number] . 01 Material submitted: . LEFT 2ND TOE . 02 Diagnosis: Segment of toe, left second toe amputation: - Status post traumatic amputation of toe with open wound showing acute cellulitis, exposed bone, and focal acute osteomyelitis. - Focal soft tissue deposits suggestive of gout. - Focal arterial marked sclerotic occlusion and calcification. (JPM:[place] [employer] [facility] 11/18/2018) QTP/11/18/2018 . 02 Electronically signed: . James Francis MD, Pathologist NPI- [id number] . 01 Gross description: . The specimen is received in formalin, labeled "Brooke Marques, left second toe", is a roughly circular segment of toe measuring 1.7 x 1.5 x 0.7 cm. One surface is irregular dark brown and hemorrhage, with the opposite surface consisting of yarbrough skin and lenz-white bone (apparent resection margin), which is inked blue. The specimen is serially sectioned and entirely submitted in A1-A2 after decalcification. ([facility]; 11/16/2018) SHS/SHS . 02 Pathologist provided ICD-10: L97.529, L03.032, M86.172 . 02 CPT . 677416 Specimen Comment: A courtesy copy of this report has been sent to Specimen Comment: [phone], , , . Specimen Comment: Report sent to ,DR LACEY,DR BARFIELD / DR CHOI Specimen Comment: A duplicate report has been generated due to demographic updates. Performed at: [address], [place], [place] [id number] MD Lui Root MD Phone: [phone] Performed at: [address] [id number] MD James Francis MD Phone: [phone]
--- NOTE | 2018-11-18 16:23 | NUR ---
LORENA following. [facility] do not have a female bed available. LORENA met with pt, pt would like referral sent to [facility]. LORENA faxed referral. RN notified.
[2018-11-18 19:26] VITALS: BP 117/36
[2018-11-18 22:56] VITALS: BP 103/50
[2018-11-19] VITALS (7 sets, daily range): BP systolic 103–152; BP diastolic 30–98
[2018-11-19 05:16] LABS: BASO % 1 % (0-3); EOS # 0.1 x10^3/uL (0.0-0.7); EOS % 3 % (0-3); HEMATOCRIT 22.5 % (36.0-47.0); HEMOGLOBIN 7.4 g/dL (12.0-15.5); LYMPH # 1.5 x10^3/uL (1.0-4.8); LYMPH % 32 % (24-48); MEAN CORPUSCULAR HEMOGLOBIN 31 pg (25-35); MEAN CORPUSCULAR HGB CONC 33 g/dL (31-37); MEAN CORPUSCULAR VOLUME 95 fL (79-100); MONO # 0.4 x10^3/uL (0.0-1.1); MONO % 8 % (0-9); NEUT # 2.8 x10^3uL (1.8-7.7); NEUT % 57 % (31-73); PLATELET COUNT 99 x10^3/uL (140-400); RED BLOOD COUNT 2.37 x10^6/uL (3.50-5.40); RED CELL DISTRIBUTION WIDTH 17.1 % (11.5-14.5); WHITE BLOOD COUNT 4.9 x10^3/uL (4.0-11.0)
[2018-11-19 05:33] LABS: CALCIUM 8.3 mg/dL (8.5-10.1); CREATININE 4.6 mg/dL (0.6-1.0); GFR 9.4; POTASSIUM 4.3 mmol/L (3.5-5.1)
[2018-11-19] MEDS: INSULIN LISPRO 300 UNITS/3 ML INSULN.PEN. SQ SCH ×4 (07:55→20:45)
[2018-11-19] MEDS: DOCUSATE SODIUM 100 MG CAPSULE. PO SCH (09:00)
[2018-11-19] MEDS: silver sulfADIAZINE 1% CREAM 25GM TUBE. TP SCH ×2 (09:00→20:53)
[2018-11-19] MEDS ORDERED: OXYC1TAB15 PO (09:03)
[2018-11-19] MEDS ORDERED: SILV25CR7 TP (09:03)
[2018-11-19] MEDS ORDERED: TEMA7.5C2 PO (09:03)
[2018-11-19] MEDS ORDERED: GABA300C18 PO (09:03)
--- NOTE | 2018-11-19 09:04 | SNU/HH DC ---
DISCHARGE ORDERS DISCHARGE INFORMATION: DISCHARGE DATE: Nov 19, 2018 FINAL DIAGNOSIS Problems Medical Problems: (1) Traumatic amputation of second toe of left foot Status: Acute CONDITION ON DISCHARGE: Stable CODE STATUS: Code Status: Full RETIREMENT: SNF STAY <30 DAYS: Yes HOSPICE: HOSPICE: No HOSPICE EVAL & TREAT: No LTAC: ADMIT TO LTAC: No POST DISCHARGE ORDERS: ACTIVITY ORDERS: Activity as tolerated WEIGHT BEARING STATUS: As tolerated DIET AFTER DISCHARGE: Renal WOUND/INCISION CARE: Keep wound elevated CHECKS AFTER DISCHARGE: CHECKS AFTER DISCHARGE: Check blood press - daily, Check blood sugar, ac/hs, Check your Temp as needed, Weigh Yourself Daily TREATMENT/EQUIPMENT ORDERS: ADAPTIVE EQUIPMENT NEEDED: None Physical Therapy For: Evalulation/Treatment Occupational Therapy For: Evaluation/Treatment DISCHARGE MEDICATIONS: Home Meds Active Scripts Silver Sulfadiazine (SSD) 25 Gm Cream..g., 1 JESUS TP BID for wound MDD 1, #1 EACH Prov:DHRUV LACEY MD 11/19/18 Gabapentin (GABAPENTIN) 300 Mg Capsule, 300 MG PO PRN DAILY PRN for NEUROPATHIC PAIN MDD 1, #30 CAP Prov:DHRUV LACEY MD 11/19/18 Temazepam (RESTORIL) 7.5 Mg Capsule, 7.5 MG PO PRN QHS PRN for INSOMNIA MDD 1, # 20 CAP Prov:DHRUV LACEY MD 11/19/18 Oxycodone/Apap 5-325 (PERCOCET 5-325 MG TABLET ) 1 Each Tablet, 1 TAB PO PRN Q6HRS PRN for PAIN MDD 1, #30 TAB 0 Refills Prov:DHRUV LACEY MD 11/19/18 Reported Medications Cholecalciferol (Vitamin D3) (Vitamin D) 5,000 Unit Capsule, 5000 UNIT PO DAILY for replacement, CAP 10/26/18 Insulin Lispro (HUMALOG) 100 Unit/1 Ml Cartridge, 100 UNIT SQ TIDAC PRN for blood sugar, EACH 07/20/18 Gabapentin (GABAPENTIN ) 300 Mg Capsule, 300 MG PO PRN TID PRN for SEE COMMENTS, CAP 05/22/17 DHRUV LACEY MD Nov 19, 2018 09:04
[2018-11-19] MEDS: CHOLECALCIFEROL (VITAMIN D3) 5,000 UNIT CAPSULE PO SCH (09:37)
--- NOTE | 2018-11-19 10:00 | NUR ---
SW following. Discussed with RN, referral has been faxed to [facility]. Pt has dialysis T,Th, Sa at [facility] in [place] and 1300. SW awaiting confirmation pt has been accepted at [facility]. Insurance will have to authorize also.
--- NOTE | 2018-11-19 10:51 | PDOC ---
Renal-Progress Notes Subjective Notes Notes STABLE History of Present Illness Hx of present illness NO ACUTE COMPLAINTS Vitals Vitals Vital Signs Date Time Temp Pulse Resp B/P (MAP) Pulse Ox O2 Delivery O2 Flow Rate FiO2 11/19/18 08:00 Room Air 11/19/18 07:00 97.7 74 18 103/43 (63) 97 97.7 Weight Weight [ ] I.O. Intake and Output Intake and Output 11/19/18 06:59 Intake Total 750 ml Balance 750 ml Intake Oral 750 ml Labs Labs Laboratory Tests Test 11/18/18 12:17 11/18/18 12:25 11/18/18 16:55 11/18/18 20:50 Glucose (Fingerstick) 95 mg/dL (70-99) 177 mg/dL (70-99) 183 mg/dL (70-99) White Blood Count 5.1 x10^3/uL (4.0-11.0) Red Blood Count 2.47 x10^6/uL (3.50-5.40) Hemoglobin 7.7 g/dL (12.0-15.5) Hematocrit 23.3 % (36.0-47.0) Mean Corpuscular Volume 94 fL (79-100) Mean Corpuscular Hemoglobin 31 pg (25-35) Mean Corpuscular Hemoglobin Concent 33 g/dL (31-37) Red Cell Distribution Width 16.6 % (11.5-14.5) Platelet Count 111 x10^3/uL (140-400) Test 11/19/18 04:45 11/19/18 07:22 White Blood Count 4.9 x10^3/uL (4.0-11.0) Red Blood Count 2.37 x10^6/uL (3.50-5.40) Hemoglobin 7.4 g/dL (12.0-15.5) Hematocrit 22.5 % (36.0-47.0) Mean Corpuscular Volume 95 fL (79-100) Mean Corpuscular Hemoglobin 31 pg (25-35) Mean Corpuscular Hemoglobin Concent 33 g/dL (31-37) Red Cell Distribution Width 17.1 % (11.5-14.5) Platelet Count 99 x10^3/uL (140-400) Neutrophils (%) (Auto) 57 % (31-73) Lymphocytes (%) (Auto) 32 % (24-48) Monocytes (%) (Auto) 8 % (0-9) Eosinophils (%) (Auto) 3 % (0-3) Basophils (%) (Auto) 1 % (0-3) Neutrophils # (Auto) 2.8 x10^3uL (1.8-7.7) Lymphocytes # (Auto) 1.5 x10^3/uL (1.0-4.8) Monocytes # (Auto) 0.4 x10^3/uL (0.0-1.1) Eosinophils # (Auto) 0.1 x10^3/uL (0.0-0.7) Basophils # (Auto) 0.0 x10^3/uL (0.0-0.2) Sodium Level 142 mmol/L (136-145) Potassium Level 4.3 mmol/L (3.5-5.1) Chloride Level 103 mmol/L (98-107) Carbon Dioxide Level 30 mmol/L (21-32) Anion Gap 9 (6-14) Blood Urea Nitrogen 33 mg/dL (7-20) Creatinine 4.6 mg/dL (0.6-1.0) Estimated GFR (Cockcroft-Gault) 9.4 Glucose Level 115 mg/dL (70-99) Calcium Level 8.3 mg/dL (8.5-10.1) Glucose (Fingerstick) 102 mg/dL (70-99) Review of Systems Constitutional: yes: alert, oriented Ears/Nose/Throat: Yes: no symptom reported Eyes: Yes: no symptom reported Pulmonary: Yes no symptom reported Cardiovascular: Yes no symptom reported Gastrointestional: Yes: constipation Genitourinary: Yes: no symptom reported Musculoskeletal: Yes: no symptom reported Skin: Yes no symptom reported Psychiatric/Neurological: Yes: no symptom reported Endocrine: Yes: no symptom reported Physical Exam General Appearance: no apparent distress Respiratory: bilateral CTA Heart: S1S2 Abdomen: soft, bowel sounds present Genitourinary: bladder flat Extremities: pulses present Neurology: alert Musculoskeletal: Osteoarthritis, Other Assessment Assessment IMP DM II HTN ANEMIA-S/P PRBC ESRD 2ND TOE LEFT FOOT AMPUTATION PLAN WOUND CARE ANTIBIOTICS HD TOMORROW CONT DIANA LEE MD Nov 19, 2018 10:51
--- NOTE | 2018-11-19 11:10 | PDOC3 ---
Discharge Summary Visit Information Date of Admission: Nov 15, 2018 Date of Discharge: Nov 19, 2018 Admitting Diagnosis Comment: Accidental self amputation of distal phalanx, second left toe Diabetes with neuropathy, long-standing, with unknown hemoglobin A1c Hypertension, controlled Dyslipidemia chronic stable Obesity, BMI 32.3 Chronic dizziness Generalized weakness-wants SNU Acute precipitous drop in hemoglobin, 11/18/18 Final Diagnosis Problems Medical Problems: (1) Traumatic amputation of second toe of left foot Status: Acute Brief Hospital Course Allergies Allergies Coded Allergies Type Severity Reaction Last Updated Verified No Known Drug Allergies 10/30/18 No Vital Signs Vital Signs Date Time Temp Pulse Resp B/P (MAP) Pulse Ox O2 Delivery O2 Flow Rate FiO2 11/19/18 08:00 Room Air 11/19/18 07:00 97.7 74 18 103/43 (63) 97 97.7 Lab Results Laboratory Tests Test 11/17/18 11:31 11/17/18 16:59 11/17/18 20:50 11/18/18 04:40 Glucose (Fingerstick) 272 mg/dL (70-99) 154 mg/dL (70-99) 134 mg/dL (70-99) Hemoglobin 6.3 g/dL (12.0-15.5) Hematocrit 19.1 % (36.0-47.0) Mean Corpuscular Hemoglobin Concent 33 g/dL (31-37) Sodium Level 141 mmol/L (136-145) Potassium Level 4.2 mmol/L (3.5-5.1) Chloride Level 102 mmol/L (98-107) Carbon Dioxide Level 28 mmol/L (21-32) Anion Gap 11 (6-14) Blood Urea Nitrogen 46 mg/dL (7-20) Creatinine 6.1 mg/dL (0.6-1.0) Estimated GFR (Cockcroft-Gault) 6.8 Glucose Level 154 mg/dL (70-99) Calcium Level 7.7 mg/dL (8.5-10.1) Test 11/18/18 07:33 11/18/18 12:17 11/18/18 12:25 11/18/18 16:55 Glucose (Fingerstick) 150 mg/dL (70-99) 95 mg/dL (70-99) 177 mg/dL (70-99) White Blood Count 5.1 x10^3/uL (4.0-11.0) Red Blood Count 2.47 x10^6/uL (3.50-5.40) Hemoglobin 7.7 g/dL (12.0-15.5) Hematocrit 23.3 % (36.0-47.0) Mean Corpuscular Volume 94 fL (79-100) Mean Corpuscular Hemoglobin 31 pg (25-35) Mean Corpuscular Hemoglobin Concent 33 g/dL (31-37) Red Cell Distribution Width 16.6 % (11.5-14.5) Platelet Count 111 x10^3/uL (140-400) Test 11/18/18 20:50 11/19/18 04:45 11/19/18 07:22 11/19/18 10:56 Glucose (Fingerstick) 183 mg/dL (70-99) 102 mg/dL (70-99) 191 mg/dL (70-99) White Blood Count 4.9 x10^3/uL (4.0-11.0) Red Blood Count 2.37 x10^6/uL (3.50-5.40) Hemoglobin 7.4 g/dL (12.0-15.5) Hematocrit 22.5 % (36.0-47.0) Mean Corpuscular Volume 95 fL (79-100) Mean Corpuscular Hemoglobin 31 pg (25-35) Mean Corpuscular Hemoglobin Concent 33 g/dL (31-37) Red Cell Distribution Width 17.1 % (11.5-14.5) Platelet Count 99 x10^3/uL (140-400) Neutrophils (%) (Auto) 57 % (31-73) Lymphocytes (%) (Auto) 32 % (24-48) Monocytes (%) (Auto) 8 % (0-9) Eosinophils (%) (Auto) 3 % (0-3) Basophils (%) (Auto) 1 % (0-3) Neutrophils # (Auto) 2.8 x10^3uL (1.8-7.7) Lymphocytes # (Auto) 1.5 x10^3/uL (1.0-4.8) Monocytes # (Auto) 0.4 x10^3/uL (0.0-1.1) Eosinophils # (Auto) 0.1 x10^3/uL (0.0-0.7) Basophils # (Auto) 0.0 x10^3/uL (0.0-0.2) Sodium Level 142 mmol/L (136-145) Potassium Level 4.3 mmol/L (3.5-5.1) Chloride Level 103 mmol/L (98-107) Carbon Dioxide Level 30 mmol/L (21-32) Anion Gap 9 (6-14) Blood Urea Nitrogen 33 mg/dL (7-20) Creatinine 4.6 mg/dL (0.6-1.0) Estimated GFR (Cockcroft-Gault) 9.4 Glucose Level 115 mg/dL (70-99) Calcium Level 8.3 mg/dL (8.5-10.1) Laboratory Tests Test 11/18/18 12:17 11/18/18 12:25 11/18/18 16:55 11/18/18 20:50 Glucose (Fingerstick) 95 mg/dL (70-99) 177 mg/dL (70-99) 183 mg/dL (70-99) White Blood Count 5.1 x10^3/uL (4.0-11.0) Red Blood Count 2.47 x10^6/uL (3.50-5.40) Hemoglobin 7.7 g/dL (12.0-15.5) Hematocrit 23.3 % (36.0-47.0) Mean Corpuscular Volume 94 fL (79-100) Mean Corpuscular Hemoglobin 31 pg (25-35) Mean Corpuscular Hemoglobin Concent 33 g/dL (31-37) Red Cell Distribution Width 16.6 % (11.5-14.5) Platelet Count 111 x10^3/uL (140-400) Test 11/19/18 04:45 11/19/18 07:22 11/19/18 10:56 White Blood Count 4.9 x10^3/uL (4.0-11.0) Red Blood Count 2.37 x10^6/uL (3.50-5.40) Hemoglobin 7.4 g/dL (12.0-15.5) Hematocrit 22.5 % (36.0-47.0) Mean Corpuscular Volume 95 fL (79-100) Mean Corpuscular Hemoglobin 31 pg (25-35) Mean Corpuscular Hemoglobin Concent 33 g/dL (31-37) Red Cell Distribution Width 17.1 % (11.5-14.5) Platelet Count 99 x10^3/uL (140-400) Neutrophils (%) (Auto) 57 % (31-73) Lymphocytes (%) (Auto) 32 % (24-48) Monocytes (%) (Auto) 8 % (0-9) Eosinophils (%) (Auto) 3 % (0-3) Basophils (%) (Auto) 1 % (0-3) Neutrophils # (Auto) 2.8 x10^3uL (1.8-7.7) Lymphocytes # (Auto) 1.5 x10^3/uL (1.0-4.8) Monocytes # (Auto) 0.4 x10^3/uL (0.0-1.1) Eosinophils # (Auto) 0.1 x10^3/uL (0.0-0.7) Basophils # (Auto) 0.0 x10^3/uL (0.0-0.2) Sodium Level 142 mmol/L (136-145) Potassium Level 4.3 mmol/L (3.5-5.1) Chloride Level 103 mmol/L (98-107) Carbon Dioxide Level 30 mmol/L (21-32) Anion Gap 9 (6-14) Blood Urea Nitrogen 33 mg/dL (7-20) Creatinine 4.6 mg/dL (0.6-1.0) Estimated GFR (Cockcroft-Gault) 9.4 Glucose Level 115 mg/dL (70-99) Calcium Level 8.3 mg/dL (8.5-10.1) Glucose (Fingerstick) 102 mg/dL (70-99) 191 mg/dL (70-99) Brief Hospital Course Ms. Marques is a 68 old white female admitted because she accidentally self amputated her distal phalanx second left toe, she is unaware of how she did. She has diabetes with neuropathy long-standing but actually off insulin and off on OHA because hemoglobin A1c is normal. I actually did not needed to do any sliding scale for her in house. Anyways, orthopedics did a road cleaner amputation and now she will be needing SNU. Other past medical are: hypertension dyslipidemia chronic dizziness. Please see above Also ESRD on dialysis. hemoglobin dropped to 6 from blood loss from the amputated toe , transfused one pack RBC and now it's up to 7. Ready for [facility] when we have a bed Consults performed orthopedics procedures performed cleaning amputation distal phalanx second left toe dispo: SNU FULL CODE NOT needing insulin Discharge Information Condition at Discharge: Improved, Stable Disposition/Orders: Other (snu) Scheduled Cholecalciferol (Vitamin D3) (Vitamin D) 5,000 Unit Capsule, 5,000 UNIT PO DAILY for replacement, (Reported) Entered as Reported by: AALIYAH SOOD on 10/26/182021 Last Action: Continued on 11/15/181754 by DHRUV LACEY Silver Sulfadiazine (Ssd) 25 Gm Cream..g., 1 JESUS TP BID for wound MDD 1, #1 Prescribed by: DHRUV LACEY on 11/19/18902 Scheduled PRN Gabapentin (Gabapentin ) 300 Mg Capsule, 300 MG PO PRN TID PRN for SEE COMMENTS, (Reported) Entered as Reported by: STERLING CHACON on 05/22/17 143 Last Action: Continued on 11/15/181754 by DHRUV LACEY Gabapentin (Gabapentin) 300 Mg Capsule, 300 MG PO PRN DAILY PRN for NEUROPATHIC PAIN MDD 1, #30 Prescribed by: DHRUV LACEY on 11/19/18902 Insulin Lispro (Humalog) 100 Unit/1 Ml Cartridge, 100 UNIT SQ TIDAC PRN for blood sugar, (Reported) Entered as Reported by: Shawnee Abdi on 07/20/182056 Last Action: HELD on 11/15/181754 by DHRUV LACEY Oxycodone/Apap 5-325 (Percocet 5-325 Mg Tablet ) 1 Each Tablet, 1 TAB PO PRN Q6HRS PRN for PAIN MDD 1, #30 Ref 0 Prescribed by: DHRUV LACEY on 11/19/18902 Temazepam (Restoril) 7.5 Mg Capsule, 7.5 MG PO PRN QHS PRN for INSOMNIA MDD 1, # 20 Prescribed by: DHRUV LACEY on 11/19/18902 DHRUV LACEY MD Nov 19, 2018 11:10
--- NOTE | 2018-11-19 11:38 | NUR ---
SW following, pt has been accepted at [facility], pending insurance authorization. RN notified. SW will continue to follow.
--- NOTE | 2018-11-19 16:22 | NUR ---
Patient can discharge to [facility] tomorrow (11/20/18) AFTER dialysis. DC paperwork to be faxed [phone]. RN notified.
--- NOTE | 2018-11-19 16:53 | SNU/HH DC ---
DISCHARGE ORDERS DISCHARGE INFORMATION: DISCHARGE DATE: Nov 20, 2018 FINAL DIAGNOSIS Problems Medical Problems: (1) Traumatic amputation of second toe of left foot Status: Acute CONDITION ON DISCHARGE: Stable CODE STATUS: Code Status: Full POST DISCHARGE ORDERS: ACTIVITY ORDERS: Activity as tolerated WEIGHT BEARING STATUS: As tolerated DIET AFTER DISCHARGE: Renal WOUND/INCISION CARE: Keep wound elevated CHECKS AFTER DISCHARGE: CHECKS AFTER DISCHARGE: Check blood press - daily, Check blood sugar, ac/hs, Check your Temp as needed, Weigh Yourself Daily TREATMENT/EQUIPMENT ORDERS: ADAPTIVE EQUIPMENT NEEDED: None Physical Therapy For: Evalulation/Treatment Occupational Therapy For: Evaluation/Treatment DISCHARGE MEDICATIONS: Home Meds Active Scripts Silver Sulfadiazine (SSD) 25 Gm Cream..g., 1 JESUS TP BID for wound MDD 1, #1 EACH Prov:DHRUV LACEY MD 11/19/18 Gabapentin (GABAPENTIN) 300 Mg Capsule, 300 MG PO PRN DAILY PRN for NEUROPATHIC PAIN MDD 1, #30 CAP Prov:DHRUV LACEY MD 11/19/18 Temazepam (RESTORIL) 7.5 Mg Capsule, 7.5 MG PO PRN QHS PRN for INSOMNIA MDD 1, # 20 CAP Prov:DHRUV LACEY MD 11/19/18 Oxycodone/Apap 5-325 (PERCOCET 5-325 MG TABLET ) 1 Each Tablet, 1 TAB PO PRN Q6HRS PRN for PAIN MDD 1, #30 TAB 0 Refills Prov:DHRUV LACEY MD 11/19/18 Reported Medications Cholecalciferol (Vitamin D3) (Vitamin D) 5,000 Unit Capsule, 5000 UNIT PO DAILY for replacement, CAP 10/26/18 Discontinued Reported Medications Insulin Lispro (HUMALOG) 100 Unit/1 Ml Cartridge, 100 UNIT SQ TIDAC PRN for blood sugar, EACH 07/20/18 Gabapentin (GABAPENTIN ) 300 Mg Capsule, 300 MG PO PRN TID PRN for SEE COMMENTS, CAP 05/22/17 DHRUV LACEY MD Nov 19, 2018 16:53
[2018-11-19] MEDS: oxyCODONE/APAP 5/325 1 TAB TABLET PO PRN (19:25)
[2018-11-20 03:03] VITALS: BP 142/62
[2018-11-20] MEDS ORDERED: IV NORMAL SALINE 1000ML BAG 1,000 ML IV PRN ×2 (07:01)
[2018-11-20] MEDS ORDERED: ACETAMINOPHEN 500 MG TABLET PO PRN (07:15)
[2018-11-20] MEDS ORDERED: DIALYSIS PATIENT. MC PRN ×2 (07:15)
[2018-11-20] MEDS ORDERED: ALBUMIN HUMAN 25% 200 ML IV PRN (07:15)
[2018-11-20] MEDS ORDERED: diphenhydrAMINE 50 MG/ML VIAL IV PRN ×2 (07:15)
--- NOTE | 2018-11-20 07:30 | NUR ---
RN gave report to Carol in dialysis, and then transported patient to 5th floor for dialysis via bed.
[2018-11-20] MEDS ORDERED: LIDOCAINE 1% PF 2 ML VIAL. ONE ×2 (07:45→08:00)
[2018-11-20] MEDS: INSULIN LISPRO 300 UNITS/3 ML INSULN.PEN. SQ SCH ×2 (08:00→12:00)
[2018-11-20] MEDS: CHOLECALCIFEROL (VITAMIN D3) 5,000 UNIT CAPSULE PO SCH (09:00)
[2018-11-20] MEDS: silver sulfADIAZINE 1% CREAM 25GM TUBE. TP SCH (09:00)
[2018-11-20] MEDS: DOCUSATE SODIUM 100 MG CAPSULE. PO SCH (09:00)
--- NOTE | 2018-11-20 10:42 | PDOC ---
Provider Note Provider Note Patient can go to [facility]-I have discussed with health care social worker FRi evening All meds paperwork done No addendum to discharge summary done 11/19/18 DHRUV LACEY MD Nov 20, 2018 10:42
--- NOTE | 2018-11-20 11:27 | PDOC ---
Renal-Progress Notes Subjective Notes Notes NONE History of Present Illness Hx of present illness STABLE Vitals Vitals Vital Signs Date Time Temp Pulse Resp B/P (MAP) Pulse Ox O2 Delivery O2 Flow Rate FiO2 11/20/18 03:03 98.1 87 20 142/62 (88) 93 Room Air 98.1 Weight Weight [ ] I.O. Intake and Output Intake and Output 11/20/18 07:00 Intake Total 600 ml Balance 600 ml Intake Oral 600 ml # Bowel Movements 2 Labs Labs Laboratory Tests Test 11/19/18 16:20 11/19/18 20:13 Glucose (Fingerstick) 133 mg/dL (70-99) 189 mg/dL (70-99) Review of Systems Constitutional: yes: alert, oriented Ears/Nose/Throat: Yes: no symptom reported Eyes: Yes: no symptom reported Pulmonary: Yes no symptom reported Cardiovascular: Yes no symptom reported Gastrointestional: Yes: constipation Genitourinary: Yes: no symptom reported Musculoskeletal: Yes: no symptom reported Skin: Yes no symptom reported Psychiatric/Neurological: Yes: no symptom reported Endocrine: Yes: no symptom reported Physical Exam General Appearance: no apparent distress Respiratory: bilateral CTA Heart: S1S2 Abdomen: soft, bowel sounds present Genitourinary: bladder flat Extremities: pulses present Neurology: alert Musculoskeletal: Osteoarthritis, Other Assessment Assessment IMP DM II HTN ANEMIA-S/P PRBC ESRD 2ND TOE LEFT FOOT AMPUTATION PLAN WOUND CARE ANTIBIOTICS HD TODAY UF TO DW DIANA NORTON MD Nov 20, 2018 11:27
--- NOTE | 2018-11-20 16:32 | NUR ---
Pt was discharged to at 1530 today in stable condition with all personal belongings. Report called into [facility], packet given to facility transportation personnel, all pertinent information faxed to [facility]. Pt was escorted via and accompanied by transportation to the main exit where she was driven by was driven by van to .
== END 2018-11-20 15:32 | DRG 907 ==
LOC: ER 14:07 → 4 NORTH 17:00
PROVIDERS: ADMIT Internal Medicine; ATTEND Internal Medicine
PROC: 30233N1 Transfusion of Nonautologous Red Blood Cells into Peripheral Vein, Percutaneous Approach (ICD-10-PCS; 2018-11-16)
PROC: 5A1D70Z Performance of Urinary Filtration, Intermittent, Less than 6 Hours Per Day (ICD-10-PCS; 2018-11-16)
PROC: 0Y6S0Z2 Detachment at Left 2nd Toe, Mid, Open Approach (ICD-10-PCS; principal; 2018-11-16 12:15)
PROC: 5A1D70Z Performance of Urinary Filtration, Intermittent, Less than 6 Hours Per Day (ICD-10-PCS; 2018-11-18)
PROC: 5A1D70Z Performance of Urinary Filtration, Intermittent, Less than 6 Hours Per Day (ICD-10-PCS; 2018-11-20)
DX: S98.142A Partial traumatic amputation of one left lesser toe, initial encounter (principal); N18.6 End stage renal disease; I13.2 Hypertensive heart and chronic kidney disease with heart failure and with stage 5 chronic kidney disease, or end stage renal disease; R71.0 Precipitous drop in hematocrit; I50.9 Heart failure, unspecified; E78.5 Hyperlipidemia, unspecified; Z68.32 Body mass index [BMI] 32.0-32.9, adult; E66.9 Obesity, unspecified; I48.91 Unspecified atrial fibrillation; E21.3 Hyperparathyroidism, unspecified; F32.9 Major depressive disorder, single episode, unspecified; F41.9 Anxiety disorder, unspecified; M10.9 Gout, unspecified; M19.90 Unspecified osteoarthritis, unspecified site; K21.9 Gastro-esophageal reflux disease without esophagitis; E11.22 Type 2 diabetes mellitus with diabetic chronic kidney disease; E11.51 Type 2 diabetes mellitus with diabetic peripheral angiopathy without gangrene; E11.42 Type 2 diabetes mellitus with diabetic polyneuropathy; X58.XXXA Exposure to other specified factors, initial encounter; Y93.89 Activity, other specified; Y92.89 Other specified places as the place of occurrence of the external cause; Y99.8 Other external cause status; Z79.4 Long term (current) use of insulin; Z79.899 Other long term (current) drug therapy; Z82.49 Family history of ischemic heart disease and other diseases of the circulatory system; Z90.710 Acquired absence of both cervix and uterus; Z99.2 Dependence on renal dialysis; Z90.49 Acquired absence of other specified parts of digestive tract; Z87.01 Personal history of pneumonia (recurrent); Z98.49 Cataract extraction status, unspecified eye
CPT/HCPCS: 36415; 73630; 80048; 80053; 82962; 83036; 85014; 85018; 85025; 85027; 85610; 86706; 86850; 86900; 86901; 86920; 87340; 88305; 88311; 93005; 96365; A7015; J0696; J1100; J1815; J2001; J2250; J2405; J2704; J3010; J3490; P9016; 97116; 97530; 97535; 99285-25